=== PATIENT | male | born 1930 | race African-American/Black ===

== ENCOUNTER 2019-02-14 13:41 | Emergency (ER) | payer OTHER ==
[2019-02-14] MEDS ORDERED: ETOMIDATE 20 MG/10 ML VIAL IV ONE (13:42)
[2019-02-14] MEDS ORDERED: SUCCINYLCHOLINE 20 MG/ML (10 ML) IV ONE (13:42)
[2019-02-14] MEDS ORDERED: Nicardipine/NS 25 MG/250 ML KIT IV ONE (14:19)
[2019-02-14] MEDS ORDERED: VITAMIN K (ADULT) 10 MG/ML ONE (14:19)
--- NOTE | 2019-02-14 14:20 | RAD REPORT ---
EXAM DESCRIPTION: CT - Head C Spine Cap Wo Con - 02/14/2019 2:02 pm CLINICAL HISTORY: Trauma, head and neck injury. Chest, abdomen and pelvis pain. fall from attic. AMS COMPARISON: No comparisons TECHNIQUE: CT head without contrast. CT cervical spine without contrast with coronal and sagittal reformatted images. CT chest, abdomen and pelvis without contrast with coronal and sagittal reformatted images of the spi ne. All CT scans are performed using dose optimization technique as appropriate and may include automated exposure control or mA/KV adjustment according to patient size. FINDINGS: CT HEAD WITHOUT CONTRAST: A relatively large amount of acute subarachnoid hemorrhage is present bilaterally. Moderate brain at rophy is seen with no evidence of midline shift. The paranasal sinuses and mastoids are clear. No skull fracture evident. A large right posterior scal p hematoma. CT CERVICAL SPINE WITHOUT CONTRAST: Anterior cervical spine hardware is present. Cervical spine CT examination is moderately degraded by motion artifact. Within this limitation acute fracture is not seen. The prevertebral soft tissues ar e normal in thickness. CT CHEST, ABDOMEN, PELVIS WITHOUT CONTRAST: NOTE: Lack of contrast is a significant limitation in the assessment of trauma related findings. Spec ifically, solid organ, vascular and bowel evaluation is significantly limited. The lungs are clear.No pneumothorax or pericardial/pleural fluid. Large hiatal hernia is seen. Calcif ications along the left ventricular apex is evident. No evidence of intra-abdominal visceral injury, free fluid or free air is seen within the above detai led limitations. Bilateral hip arthroplasties noted. Moderate degenerative change involving the lumbar spine with mild degenerative anterolisthesis of L4 on 5. IMPRESSION: Moderate volume of acute subarachnoid hemorrhage is present without midline shift. No additional trauma related abnormality is discerned. Cervical spine assessment is limited/moderatel y degraded by motion. Findings were discussed with Dr. Gutiérrez in the emergency room 2:15 p.m. 02/14/2019 by telephone.
[2019-02-14 14:29] LABS: Absolute Lymphocytes (CBC) 1.4 K/uL (0.7-4.9); Basophils % 0.6 % (0-1.3); Hematocrit 41.8 % (39.6-49.0); Lymphocytes % 14.8 % (15.3-44.8); MPV 8.8 fL (7.6-11.3); RBC Red Blood Cell Count 4.68 M/uL (4.33-5.43)
[2019-02-14] MEDS ORDERED: levETIRAcetam 1,000 MG in NA CHLORIDE 0.9% 100 ML IV ONE (14:45)
[2019-02-14 14:47] LABS: Potassium 4.4 mmol/L (3.5-5.1)
[2019-02-14 14:49] LABS: Protime INR 2.41
--- NOTE | 2019-02-14 14:58 | ER ---
Nurse's Notes [facility] Name: Beto Schreiber Sr Age: 88 yrs Sex: Male : 1930 Arrival Date: 02/14/2019 Time: 13:49 Bed 4 Private MD: Diagnosis: Traumatic Subarachnoid Hemorrhage Presentation: 02/14 13:49 Mechanism of Injury: Fall ceiling of first floor. Trauma event details: Injury occurred ss in the [facility], Injury occurred: at home. Injury occurred: February 14, 2019. 14:00 Presenting complaint: EMS states: fell out of an attic at unknown time. Reportedly it ss may have been 2-3 hours ago. Patient's baseline mental status is A\\T\\O x3, but is found to be altered with slurred speech. 3 in laceration noted to back of head, dressing placed by EMS. Transition of care: patient was not received from another setting of care. Onset of symptoms was February 14, 2019. Risk Assessment: Do you want to hurt yourself or someone else? Patient reports no desire to harm self or others. Initial Sepsis Screen: Does the patient meet any 2 criteria? No. Patient's initial sepsis screen is negative. Does the patient have a suspected source of infection? No. Patient's initial sepsis screen is negative. Care prior to arrival: IV initiated. 20 GA, in the left antecubital area, Glucose check: 130. 14:00 Acuity: ASMITA 1 ss 14:00 Method Of Arrival: EMS: [facility] Trauma Activation: Alert Physician: ED Physician; Name: Dr. Gutiérrez; Notified At: 13:28; Arrived At: 13:28 Physician: General Surgeon; Name: ; Notified At: 13:28; Arrived At: Specialty not needed Physician: Radiology; Name: Megan Bourne; Notified At: 13:28; Arrived At: Physician: Respiratory; Name: ; Notified At: 13:28; Arrived At: Specialty not needed Physician: Lab; Name: ; Notified At: 13:28; Arrived At: Specialty not needed Historical: - Allergies: 14:11 Meperidine; ss - Home Meds: 14:11 Unable to obtain [Active]; ss - PMHx: 14:11 Unable to obtain; ss - PSHx: 14:11 Unable to obtain; ss - Immunization history:: Adult Immunizations unknown. - Social history:: Smoking status: unknown. - Immunization history: Last tetanus immunization: unknown. - Ebola Screening: : Unable to complete screening because. Screenin:00 Abuse screen: Denies threats or abuse. Denies injuries from another. Tuberculosis bp screening: No symptoms or risk factors identified. 15:15 Nutritional screening: No deficits noted. Fall Risk Fall in past 12 months (25 points). ss Secondary diagnosis (15 points) AMS. IV access (20 points). Ambulatory Aid- None/Bed Rest/Nurse Assist (0 pts). Gait- Normal/Bed Rest/Wheelchair (0 pts) Mental Status- Overestimates/Forgets Limitations (15 pts.). Primary Survey: 14:00 NO uncontrolled hemorrhage observed. A: The patient needs verbal stimulation to bp respond. Airway: patent. Breathing/Chest: Respiratory pattern: regular, Respiratory effort: spontaneous, unlabored. Circulation: Cardiac rhythm: sinus rhythm. Disability Verbal Stimuli. Exposure/Environment: All clothing and personal items were removed. Forensic evidence collection is not deemed to be indicated at this time. Items placed in patient belonging bag. There is no evidence of uncontrolled external bleeding. Obvious injury(ies) are noted at this time: R PARIETAL LACERATION. 14:55 Reassessment Airway Airway Patent Oxygen Nasal cannula Oral cavity Clear Trachea ss Midline Breathing/Chest Respiratory pattern Regular Respiratory effort Spontaneous Unlabored Breath sounds Clear Circulation Heart rhythm Sinus rhythm Pulses Palpable Color [place] Disability Alert. Secondary Survey: 14:53 HEENT: Head Other R PARIETAL LACERATION. bp Assessment: 13:45 Reassessment: Patient did not arrive on C collar or backboard. C collar placed on ss arrival. Clothing removed, gown and warm blanket placed on patient. Oozing laceration noted to back of head approximately 2 inches in size. Bruising noted to R upper arm/ shoulder (dark purple). 14:00 General: Appears distressed, uncomfortable, obese, Behavior is anxious. Pain: Complains bp of pain in right side of the back of head. Neuro: Level of Consciousness is confused, Oriented to none. EENT: No deficits noted. Cardiovascular: No deficits noted. Respiratory: No deficits noted. GI: No signs and/or symptoms were reported involving the gastrointestinal system. : No signs and/or symptoms were reported regarding the genitourinary system. Derm: No deficits noted. Musculoskeletal: No deficits noted. Injury Description: Laceration sustained to right side of the back of head is full thickness, was sustained 1-2 hours ago. a small amount of bleeding noted at this time. 14:30 Reassessment: SAH NOTED ON CT, PER RADIOLOGIST. TRANSFER IN PROCESS. bp 14:50 Reassessment: C collar removed per KAVEH Hook after reviewing image results. 15:05 Reassessment: Called report to DAMARI Lantigua at [facility]. Awaiting lifeflight for transportation. Airway is patent. Family at bedside. Side rails up x 2. 15:15 Reassessment: Patient has periods of restlessness, and states, "I need to get up, I ss need to get up." Patient is verbally redirected, family at bedside calming patient. Awaiting lifeflight transportation. Lights dimmed for comfort. Airway patent, respirations even. 15:50 Reassessment: [facility] Life flight at bedside. Patient intubated orally at 1553. Called to update receiving nurse at [place]. 16:06 Reassessment: tube repositioned by RT and life flight to 22 cm at [facility]. Vital Signs: 13:50 BP 170 / 104; Pulse 67; Resp 20; Temp 98.6(TE); Pulse Ox 97% on R/A; 14:30 BP 155 / 97; Pulse 71; ss 14:45 BP 137 / 94; Pulse 76; ss 14:55 BP 133 / 82; Pulse 75; Resp 18; Pulse Ox 99% ; bp 15:31 BP 134 / 84; Pulse 82; Resp 18; Pulse Ox 98% on 2 lpm NC; ss 15:44 BP 138 / 92; Pulse 78; Pulse Ox 99% on 2 lpm NC; Keri Coma Score: 14:00 Eye Response: spontaneous(4). Verbal Response: confused(4). Motor Response: localizes bp pain(5). Total: 13. 14:10 Eye Response: to voice(3). Verbal Response: confused(4). Motor Response: obeys jr8 commands(6). Total: 13. Trauma Score (Adult): 14:00 Eye Response: spontaneous(1); Verbal Response: confused(1); Motor Response: localizes bp pain(1); Systolic BP: > 89 mm Hg(4); Respiratory Rate: 10 to 29 per min(4); Keri Score: 13; Trauma Score: 11 ED Course: 13:49 Patient arrived in ED. jr8 13:49 [facility] jr[facility] 13:49 Gaston Gutiérrez MD is Attending Physician. jr8 13:49 shelter monitor on. Pulse ox on. NIBP on. ss 13:50 Arm band placed on right wrist. ss 14:00 Patient has correct armband on for positive identification. Bed in low position. Call bp light in reach. Side rails up X2. Adult w/ patient. 14:00 Oxygen administration via nasal cannula \\T\\ 2L/min Response to oxygen therapy: symptoms bp improved. 14:04 CT Traumagram (Head C Spine CAP wo con) In Process Unspecified. EDMS 14:09 Triage completed. ss 14:20 EKG done, by sterile preparation technician. reviewed by Gaston Gutiérrez MD. at1 14:30 Maintain EMS IV. Dressing intact. Good blood return noted. Site clean \\T\\ dry. Gauge \\T\\ ss site: 20 gauge in L AC. 14:45 Inserted saline lock: 22 gauge in right forearm, using aseptic technique. Blood ss collected. 14:49 Santiago Dalton, RN is Primary Nurse. bp 15:19 Patient transferred, IV remains in place. ss 15:19 Thermoregulation: warm blanket given to patient. ss 15:53 Assisted provider with intubation using 7.0 mm ETT via oral route. ET tube secured at ss teeth. gums. Intubated by Teddy LINN Placement verified by CO2 detector w/ + color change, auscultating bilateral breath sounds, Patient tolerated sedated. 15:57 NGT: inserted 16 Fr. verified placement of air over stomach, verified return of gastric ss contents, Patient tolerated sedated, lifeflight at bedside. 16:06 CXR XRAY In Process Unspecified. EDMS Administered Medications: 14:27 Drug: Vitamin K1 10 mg Route: Sub-Q; Site: left upper arm; ss 14:52 Follow up: Response: No adverse reaction ss 14:27 Drug: niCARdipine (25mg/250ml) 5 mg/hr {Note: infusion began at 2.5 mg/hr..} Route: IV; ss Rate: calculated rate; Site: left antecubital; 14:59 Follow up: IV Status: discontinued infusion per KAVEH Hook as BP is 133/82 ss 14:51 Drug: Keppra 1000 mg Route: IV; Rate: calculated rate; Site: right antecubital; ph 15:10 Follow up: IV Status: Completed infusion ss 15:48 Drug: Etomidate 20 mg {Note: Administered by Cookie Brand RN.} Route: IVP; Site: ss right forearm; 16:02 Follow up: Response: Patient is sedated ss 15:49 Drug: Succinylcholine 70 mg {Note: Admin by Cookie Brand RN.} Route: IVP; Site: right ss forearm; 16:02 Follow up: Response: Patient is sedated ss 16:02 Drug: fentaNYL (PF) 50 mcg Route: IVP; Site: left antecubital; ss Intake: 14:00 PO: 0ml; Total: 0ml. bp Output: 14:00 Urine: 0ml; Total: 0ml. bp Outcome: 14:57 ER care complete, transfer ordered by MD. hong 15:15 Condition: stable ss 15:15 Instructed on the need for transfer. 16:11 Transferred by helicopter to [facility], Transfer form completed. X-rays sent ss w/ patient. 16:11 Patient's length of stay in the Emergency Department was greater than 2 hours. decision ss to intubate patient just prior to transport. Also, delay in transportation due weather. Patient's length of stay extended due to 16:12 Patient's length of stay was not longer than 2 hours. ph 16:12 Patient left the ED. ss Signatures: Dispatcher [employer] EDMS Miriam Roach RN RN ss Roszak, Josh, PA PA jr8 Cheyenne Garcia, turning sander operator EKG Tat1 Cookie Brand RN RN Santiago Dalton RN RN bp Corrections: (The following items were deleted from the chart) 14:28 14:27 niCARdipine (25mg/250ml) 5 mg/hr IV at calculated rate in left antecubital cox monett 15:11 15:05 Reassessment: Called report to DAMARI Lantigua at [facility]. ss ss 16:00 15:19 No provider procedures requiring assistance completed. ss ss 16:11 16:10 Patient's length of stay in the Emergency Department was greater than 2 hours. ss delay in transportation due to weatherPatient's length of stay extended due to ss
--- NOTE | 2019-02-14 14:58 | EDPHYS ---
Physician Documentation [facility] Name: Beto Schreiber Sr Age: 88 yrs Sex: Male : 1930 Arrival Date: 02/14/2019 Time: 13:49 Bed 4 Private MD: ED Physician Gaston Gutiérrez HPI: 02/14 14:10 This 88 yrs old Black Male presents to ER via EMS with complaints of Fall. jr8 14:10 Trauma demographics: County: The injury occurred in [place] Location of Injury: The jr8 injury occurred at home, Date: February 14, 2019. Mechanism of injury: Fall: the patient fell attic, approximately approximately 10 feet. Associated injuries: The patient sustained injury to the head, laceration. Onset: The symptoms/episode began/occurred acutely, today. The patient has not experienced similar symptoms in the past. It is unknown whether or not the patient has recently seen a physician. Family stated that they found patient on ground at home. Stated that he was in the attic fixing something. Family had stepped out to go down the street. When they came back found him on the floor. EMS stated that family had told them that patient is normally A\T\O x 4 and now cannot answer any questions appropriately . Historical: - Allergies: 14:11 Meperidine; ss - Home Meds: 14:11 Unable to obtain [Active]; ss - PMHx: 14:11 Unable to obtain; ss - PSHx: 14:11 Unable to obtain; ss - Immunization history:: Adult Immunizations unknown. - Social history:: Smoking status: unknown. - Immunization history: Last tetanus immunization: unknown. - Ebola Screening: : Unable to complete screening because. ROS: 14:10 Unable to obtain ROS due to altered mental status. jr8 Exam: 14:10 Eyes: Pupils equal round and reactive to light, extra-ocular motions intact. Lids and jr8 lashes normal. Conjunctiva and sclera are non-icteric and not injected. Cornea within normal limits. Periorbital areas with no swelling, redness, or edema. ENT: Nares patent. No nasal discharge, no septal abnormalities noted. Tympanic membranes are normal and external auditory canals are clear. Oropharynx with no redness, swelling, or masses, exudates, or evidence of obstruction, uvula midline. Mucous membranes moist. Neck: Trachea midline, no thyromegaly or masses palpated, and no cervical lymphadenopathy. Supple, full range of motion without nuchal rigidity. vertebral point tenderness noted at the C4-C5 region. No Meningismus. Cardiovascular: Regular rate and rhythm with a normal S1 and S2. No gallops, murmurs, or rubs. Normal PMI, no JVD. No pulse deficits. Respiratory: Lungs have equal breath sounds bilaterally, clear to auscultation and percussion. No rales, rhonchi or wheezes noted. No increased work of breathing, no retractions or nasal flaring. Abdomen/GI: Soft, non-tender, with normal bowel sounds. No distension or tympany. No guarding or rebound. No evidence of tenderness throughout. Back: No spinal tenderness. No costovertebral tenderness. Full range of motion. Skin: Warm, dry with normal turgor. Normal color with no rashes, no lesions, and no evidence of cellulitis. MS/ Extremity: Pulses equal, no cyanosis. Neurovascular intact. Full, normal range of motion. 14:10 Head/face: Noted is a laceration(s), that is deep, 5 cm(s), of the right side of the back of head. 14:10 Neuro: Orientation: Not oriented to person, place, time, situation, Mentation: able to follow commands, slow to respond, confused, Memory: unable to test, Cranial nerves: extraocular movements are intact, Facial palsy and sensory deficits are absent. Speech is slowed, slurred, Tongue strength is normal, Motor: moves all fours, Sensation: no obvious gross deficits, seizure activity, is not displayed by the patient, Abnormal movements: there are no abnormal movements. Vital Signs: 13:50 BP 170 / 104; Pulse 67; Resp 20; Temp 98.6(TE); Pulse Ox 97% on R/A; ss 14:30 BP 155 / 97; Pulse 71; ss 14:45 BP 137 / 94; Pulse 76; ss 14:55 BP 133 / 82; Pulse 75; Resp 18; Pulse Ox 99% ; bp 15:31 BP 134 / 84; Pulse 82; Resp 18; Pulse Ox 98% on 2 lpm NC; ss 15:44 BP 138 / 92; Pulse 78; Pulse Ox 99% on 2 lpm NC; ss [place] Coma Score: 14:00 Eye Response: spontaneous(4). Verbal Response: confused(4). Motor Response: localizes bp pain(5). Total: 13. 14:10 Eye Response: to voice(3). Verbal Response: confused(4). Motor Response: obeys jr8 commands(6). Total: 13. Trauma Score (Adult): 14:00 Eye Response: spontaneous(1); Verbal Response: confused(1); Motor Response: localizes bp pain(1); Systolic BP: > 89 mm Hg(4); Respiratory Rate: 10 to 29 per min(4); Keri Score: 13; Trauma Score: 11 Procedures: 16:08 Intubation: Ventilated with 100% NRB prior to procedure. O2 saturation prior to jr8 procedure was 100 %. Intubated orally using # 3 Chi blade with 7.0 mm ETT. was successful on first attempt. Ventilated with Ambu bag. ventilator. Tube secured with ETT palmer at center of mouth measured 23 cm at teeth. Placement verified by CXR, CO2 detector with (+) color change, auscultating bilateral breath sounds, O2 saturation after procedure was 100 %. Patient tolerated well. Laceration: 14:53 Wound Repair of 5cm ( 2.0in ) subcutaneous laceration to right side of the back of jr8 head. Irregularly shaped.. Distal neuro/vascular/tendon intact. Wound prep: Extensive cleansing with hibiclenz, Wound irrigation with saline, Wound explored extensively. Skin closed with 4 marilia Marilia using staple gun. Patient tolerated well. MDM: 13:49 Patient medically screened. [facility] 14:53 Data reviewed: vital signs, nurses notes, lab test result(s), EKG, radiologic studies, jr8 CT scan. Data interpreted: Pulse oximetry: on room air is 98 %. Interpretation: normal. Counseling: I had a detailed discussion with the patient and/or guardian regarding: the historical points, exam findings, and any diagnostic results supporting the discharge/admit diagnosis, lab results, radiology results, the need to transfer to another facility, for higher level of care. ED course: Neurosurgery accepted at [place] for Head trauma with sub arachnoid . 16:09 ED course: Patient had worsening of mental status and became more combative. Elective jr8 intubation to secure airway and decrease patient from causing increase ICP was made. Patient successfully intubated and doing well at this time . 16:30 ED course: FFP was not ordered because the time it would take to thaw vs time of Life jr8 Flight to get here . 02/14 13:50 Order name: Basic Metabolic Panel; Complete Time: 14:52 jr8 02/14 13:50 Order name: CBC with Diff; Complete Time: 14:40 jr8 02/14 13:50 Order name: Creatinine for Radiology; Complete Time: 14:52 jr8 02/14 13:50 Order name: Type And Screen; Complete Time: 15:15 jr8 02/14 14:05 Order name: Protime (+inr); Complete Time: 14:58 jr8 02/14 14:05 Order name: Ptt, Activated; Complete Time: 14:58 jr8 02/14 13:50 Order name: CT Traumagram (Head C Spine CAP wo con); Complete Time: 14:24 jr8 02/14 15:48 Order name: CXR XRAY ss 02/14 13:50 Order name: Labs collected and sent; Complete Time: 14:54 jr8 Administered Medications: 14:27 Drug: Vitamin K1 10 mg Route: Sub-Q; Site: left upper arm; ss 14:52 Follow up: Response: No adverse reaction ss 14:27 Drug: niCARdipine (25mg/250ml) 5 mg/hr {Note: infusion began at 2.5 mg/hr..} Route: IV; ss Rate: calculated rate; Site: left antecubital; 14:59 Follow up: IV Status: discontinued infusion per KAVEH Hook as BP is 133/82 ss 14:51 Drug: Keppra 1000 mg Route: IV; Rate: calculated rate; Site: right antecubital; ph 15:10 Follow up: IV Status: Completed infusion ss 15:48 Drug: Etomidate 20 mg {Note: Administered by Cookie Brand RN.} Route: IVP; Site: ss right forearm; 16:02 Follow up: Response: Patient is sedated ss 15:49 Drug: Succinylcholine 70 mg {Note: Admin by Cookie Brand RN.} Route: IVP; Site: right ss forearm; 16:02 Follow up: Response: Patient is sedated ss 16:02 Drug: fentaNYL (PF) 50 mcg Route: IVP; Site: left antecubital; ss Disposition: 02/15 07:27 Co-signature as Attending Physician, Gaston Gutiérrez MD I agree with the assessment and ian plan of care. Disposition: 02/14/19 14:57 Transfer ordered to [facility]. Diagnosis is Traumatic Subarachnoid Hemorrhage . - Reason for transfer: Higher level of care. - Accepting physician is Dr. Nicholson . - Condition is Fair. - Problem is new. - Symptoms have improved. Signatures: Dispatcher [employer] EDMA Gaston Gutiérrez MD MD cha Smirch, Shelby, RN RN Teddy Velazquez PA PA jr8 Cookie Brand, RN RN ph Corrections: (The following items were deleted from the chart) 02/14 16:12 14:57 02/14/2019 14:57 Transfer ordered to [facility]. ss Diagnosis is Traumatic Subarachnoid Hemorrhage . Reason for transfer: Higher level of care. Accepting physician is Dr. Nicholson . Condition is Fair. Problem is new. Symptoms have improved. jr8
[2019-02-14] MEDS ORDERED: MIDAZOLAM HCL 2 MG/2 ML INJ ONE (15:36)
[2019-02-14] MEDS ORDERED: RSI MEDICATION KIT IV ONE (15:37)
[2019-02-14] MEDS ORDERED: FENTANYL CITR 100 MCG/2 ML ONE (15:37)
[2019-02-14 16:17] VITALS: TEMP 98.6
[2019-02-14 16:23] VITALS: BP 138/92; O2SAT 99
--- NOTE | 2019-02-14 16:27 | RAD REPORT ---
EXAM DESCRIPTION: RAD - Chest Single View - 02/14/2019 4:06 pm CLINICAL HISTORY: Intubation COMPARISON: June 2017 TECHNIQUE: AP portable chest image was obtained 1559 hours . FINDINGS: Lung volumes are low. Left base is limited. Infiltrate, atelectasis or even pulmonary cont usion not excluded. No pneumothorax is seen. No gross rib cage deformity identified. Endotracheal tube is in place. Tip is at the avelina. NG tube is not seen. There is tubing curled over the cervical midline neck. This may be part of the endotracheal tube external to the body. NG tube c urled in the cervical esophagus not excluded. Heart and vasculature are normal. No acute bony abnormality seen. No acute aortic findings suspected . IMPRESSION: Endotracheal tube is in place with the tip at the avelina.
--- NOTE | 2019-02-15 09:59 | EKG ---
Test Date: 2019-02-14 Test Time: 14:11:27 Fence Repairman: LALO MEASUREMENT RESULTS: Intervals: Rate: 71 MO: 210 QRSD: 92 QT: 364 QTc: 395 [place]: P: 36 MO: 210 QRS: -66 T: 54 INTERPRETIVE STATEMENTS: Sinus rhythm with 1st degree AV block Possible Left atrial enlargement Low voltage QRS Left anterior fascicular block Cannot rule out Inferior infarct (masked by fascicular block?), age undetermined Cannot rule out Anteroseptal infarct, age undetermined T wave abnormality, consider lateral ischemia Abnormal ECG Compared to ECG 08/13/2007 05:07:50 Low QRS voltage now present Left anterior fascicular block now present T-wave abnormality now present Electronically Signed On 02-15-19 09:57:43 CDT by Candido Dupont
== END 2019-02-14 16:12 | disposition short-term general hospital (02) ==
LOC: ER 13:41
PROC: 0JQ00ZZ Repair Scalp Subcutaneous Tissue and Fascia, Open Approach (ICD-10-PCS; principal; 2019-02-14)
PROC: 0BH17EZ Insertion of Endotracheal Airway into Trachea, Via Natural or Artificial Opening (ICD-10-PCS; 2019-02-14)
PROC: 5A1935Z Respiratory Ventilation, Less than 24 Consecutive Hours (ICD-10-PCS; 2019-02-14)
DX: S06.6X0A Traumatic subarachnoid hemorrhage without loss of consciousness, initial encounter (principal); W17.89XA Other fall from one level to another, initial encounter; Y93.89 Activity, other specified; Y92.008 Other place in unspecified non-institutional (private) residence as the place of occurrence of the external cause
CPT/HCPCS: 93005; 85025; 80048; 36415; 86900; 86850; 85610; 86901; 85730; 70450; 71250; 72125; 71045; 12002; 31500; 94002; J3430; J3010; J1953; 96372; 99291; J0330; J2250

== ENCOUNTER 2019-05-09 02:31 | Emergency (ER) | payer OTHER ==
--- OUTSIDE RECORDS SUMMARY | 2019-05-09 02:35 | XMS REPORT ---
:1930 [facility] Address [address] [place] [address] [address]. Mck[address] [place] [address] Care Team Providers Name Role Phone Unavailable Unavailable Unavailable Problems This patient has no known problems. Allergies, Adverse Reactions, Alerts This patient has no known allergies or adverse reactions. Medications This patient has no known medications. Encounters Start End Encounter Admission Attending Care Care Encounter Date/Time Date/Time Type Type Clinicians Facility Department ID 2019-04-08 2019-04-08 Inpatient E [facility] [id number] 19:32:00 14:39:00 2019-03-28 2019-03-28 Inpatient E [facility] [id number] 22:05:00 20:20:00 2019-03-28 2019-03-28 Emergency E [facility] [id number] 15:21:00 15:21:00 2019-03-09 2019-03-06 Inpatient E [facility] [id number] 11:09:00 20:28:00 2019-02-14 2019-02-14 Outpatient [facility] [id number] 18:48:00 18:48:00 2019-02-14 2019-02-14 Inpatient E [facility] [id number] 18:06:00 17:02:00
--- OUTSIDE RECORDS SUMMARY | 2019-05-09 02:36 | XMS REPORT | Summary of Care ---
:1930 Author Name Marielena Velez M.A. Address Unavailable Unavailable , Care Team Providers Name Role Phone ALINA FOFANA Unavailable Unavailable SERVANDO DALTON [place], JOAN Landry Unavailable Unavailable Unavailable Unavailable Unavailable Functional Status Name Dates Details Functional status health issues are not documented Status: Name Dates Details Cognitive status health issues are not documented Status: Problems Name Dates Details Low back pain (724.2, M54.5) Status: Active Thoracic back pain (724.1, M54.6) Status: Active Cervical pain (723.1, M54.2) Status: Active Medications Name Dates Details Medications not documented Allergies and Adverse Reactions Name Dates Details Allergy history not documented Status: Procedures Procedure Dates Details [U] XRAY THORACOLUMBAR SPINE AP AND LAT. 80152 Date: 25-Apr-2019 [U] XRAY SPINE CERVICAL 2 OR 3 VWS [id number] Date: 25-Apr-2019 Immunization Name Dates Details Immunizations not documented Social History Name Dates Details Unknown if ever smoked Vital Signs Date Test Result Details No Known Vitals to report Results Date Description Value Details Results not documented Plan of Care Name Dates Details Planned Observations Planned Goals not documented Interventions Provided Labs/Procedures/Imaging[U] XRAY SPINE CERVICAL 2 OR 3 VWS [id number]; To Be Done: 25 Apr 2019[U] XRAY THORACOLUMBAR SPINE AP AND LAT. [id number]; To Be Done: 25 Apr 2019 Instructions Name Dates Details Instructions not documented Encounters Appointment; ALINA VOSS P.A. On: 25-Apr-2019 7:30 Encounter Diagnosis: Problem not documented
[2019-05-09] MEDS ORDERED: ALBUTEROL 2.5 MG/3 ML NEB SOL ONE ×2 (02:48→03:58)
[2019-05-09] MEDS ORDERED: IPRATROPIUM BROM 0.5MG/2.5ML ONE (02:48)
[2019-05-09 03:29] LABS: Absolute Lymphocytes (CBC) 1.5 K/uL (0.7-4.9); Basophils % 0.4 % (0-1.3); Hematocrit 35.3 % (39.6-49.0); Lymphocytes % 31.4 % (15.3-44.8); MPV 9.2 fL (7.6-11.3); RBC Red Blood Cell Count 3.89 M/uL (4.33-5.43)
[2019-05-09 03:33] LABS: Protime INR 1.06
[2019-05-09 03:53] LABS: ALT/SGPT 18 U/L (12-78); AST/SGOT 18 U/L (15-37); Albumin 3.1 g/dL (3.4-5.0); Alkaline Phosphatase 102 U/L (45-117); BUN Blood Urea Nitrogen 15 mg/dL (7-18); Bicarbonate 26 mmol/L (21-32); Bilirubin Direct 0.2 mg/dL (0-0.2); Bilirubin Total 0.3 mg/dL (0.2-1.0); CKMB Creatine Kinase MB 1.5 ng/mL (0.3-3.6); Creatine Phosphokinase 57 U/L (39-308); Glucose Level 107 mg/dL (74-106); Lipase 134 U/L (73-393); NT PRO-BNP 189 pg/mL (<450); Potassium 4.5 mmol/L (3.5-5.1); Protein, Total 6.7 g/dL (6.4-8.2); Sodium Level 129 mmol/L (136-145); Troponin (Emerg Dept Use Only) < 0.02 ng/mL (0.0-0.045)
[2019-05-09] MEDS ORDERED: METHYLPREDNISOLONE 125 MG INJ ONE (04:18)
--- NOTE | 2019-05-09 04:51 | ER ---
Nurse's Notes [facility] Name: Beto Schreiber Sr Age: 88 yrs Sex: Male : 1930 Arrival Date: 05/09/2019 Time: 02:33 Bed 16 Private MD: Diagnosis: Acute bronchospasm Presentation: 05/09 02:47 Presenting complaint: Significant other states: pt has been wheezing for about a week aa1 and was seen at [facility] 2 days ago and diagnosed with bronchitis and started on Levaquin and a z-pack but reports pt is still wheezing and has been more restless than usual. Transition of care: patient was not received from another setting of care. Risk Assessment: Do you want to hurt yourself or someone else? Patient reports no desire to harm self or others. Initial Sepsis Screen: Does the patient meet any 2 criteria? No. Patient's initial sepsis screen is negative. Does the patient have a suspected source of infection? No. Patient's initial sepsis screen is negative. Care prior to arrival: None. 02:47 Method Of Arrival: Wheelchair aa1 02:47 Acuity: ASMITA 3 aa1 Triage Assessment: 02:51 General: Appears in no apparent distress. comfortable. aa1 Historical: - Allergies: 02:51 Meperidine; aa1 - Home Meds: 02:51 Coreg 3.125 mg Oral tab [Active]; Protonix 40 mg Oral TbEC 1 tab once daily [Active]; aa1 levothyroxine oral once daily [Active]; - PMHx: 02:51 Hypertension; Myocardial infarction; Hypothyroidism; aa1 - PSHx: 02:51 craniotomy; PEG tube; hip sx; neck sx; aa1 - Immunization history:: Pneumococcal vaccine is not up to date, Flu vaccine is not up to date. - Social history:: Smoking status: Patient/guardian denies using tobacco, but has a distant history of tobacco abuse. - Ebola Screening: : Patient denies exposure to infectious person Patient denies travel to an Ebola-affected area in the 21 days before illness onset. Screenin:05 Abuse screen: Denies threats or abuse. Nutritional screening: No deficits noted. jb4 Tuberculosis screening: No symptoms or risk factors identified. Fall Risk Secondary diagnosis (15 points) dementia, IV access (20 points). Mental Status- Overestimates/Forgets Limitations (15 pts.). Assessment: 03:00 General: Appears in no apparent distress. uncomfortable, Behavior is calm, cooperative, jb4 appropriate for age, Pt's daughter reports that pt normally is A\T\O x0. Pain: Denies pain. Neuro: Level of Consciousness is awake, alert, obeys commands, Oriented to none. Cardiovascular: Patient's skin is warm and dry. Respiratory: Airway is patent Respiratory effort is even, unlabored, Respiratory pattern is regular, symmetrical, Breath sounds are diminished in left upper lobe, left lower lobe, left posterior upper lobe and left posterior lower lobe Breath sounds with wheezes bilaterally. Audible wheezes heard from the bedside. the patient has mild shortness of breath. GI: No signs and/or symptoms were reported involving the gastrointestinal system. : No signs and/or symptoms were reported regarding the genitourinary system. EENT: No signs and/or symptoms were reported regarding the EENT system. Derm: Skin is intact, Skin is pink, warm \T\ dry. Musculoskeletal: Circulation, motion, and sensation intact. Range of motion: intact in all extremities. 03:45 Reassessment: Patient appears in no apparent distress at this time. Patient and/or jb4 family updated on plan of care and expected duration. Pain level reassessed. Respiratory: Airway is patent Respiratory effort is even, unlabored, Respiratory pattern is regular, symmetrical, Wheezes continue to be noted bilaterally, but have finished from prior assessment. 04:28 Reassessment: Patient appears in no apparent distress at this time. Patient and/or jb4 family updated on plan of care and expected duration. Pain level reassessed. Respiratory: Airway is patent Respiratory effort is even, unlabored, Respiratory pattern is regular, symmetrical, Breath sounds are clear in right upper lobe, right middle lobe, left lower lobe, right lower lobe, right posterior upper lobe, left posterior lower lobe, right posterior middle lobe and right posterior lower lobe Breath sounds with wheezes in left upper lobe and left posterior upper lobe. Vital Signs: 02:51 BP 162 / 86; Pulse 80; Resp 20; Temp 97.6; Pulse Ox 97% on R/A; Weight 75.3 kg; Height aa1 5 ft. 4 in. (162.56 cm); Pain 0/10; 03:30 BP 155 / 86; Pulse 88; Resp 17; Pulse Ox 97% on R/A; jb4 04:30 BP 143 / 87; Pulse 91; Resp 20; Pulse Ox 98% on R/A; jb4 02:51 Body Mass Index 28.49 (75.30 kg, 162.56 cm) aa1 ED Course: 02:33 Patient arrived in ED. ds1 02:39 Zachary Evans, RN is Primary Nurse. jb4 02:39 Camron Aleman MD is Attending Physician. tw4 02:48 Triage completed. aa1 02:51 Arm band placed on right wrist. aa1 02:59 XRAY CXR (1 view) In Process Unspecified. EDMS 03:05 Patient has correct armband on for positive identification. Placed in gown. Bed in low jb4 position. Call light in reach. Side rails up X 1. security monitor on. Pulse ox on. NIBP on. 03:05 Initial lab(s) drawn, by me, sent to lab. First set of blood cultures drawn by me. jb4 Inserted saline lock: 18 gauge in right antecubital area, using aseptic technique. Blood collected. 03:20 Second set of blood cultures drawn by me, EKG done, by ED staff, reviewed by Camron Aleman MD. 05:01 No provider procedures requiring assistance completed. IV discontinued, intact, jb4 bleeding controlled, No redness/swelling at site. Pressure dressing applied. Administered Medications: 02:50 Drug: DuoNeb (3:1) (2.5 mg - 0.5 mg) 3 ml Route: Nebulizer; jb4 03:25 Follow up: Response: No adverse reaction; Wheezing diminished jb4 02:53 Not Given (Other Intervention Used): Albuterol 1.25 mg Inhalation once jb4 03:55 Drug: Albuterol 2.5 mg Route: Inhalation; jb4 04:30 Follow up: Response: No adverse reaction; Wheezing diminished jb4 04:22 Drug: SOLU-Medrol 125 mg Route: IVP; Site: left antecubital; jb4 05:02 Follow up: Response: No adverse reaction jb4 Outcome: 04:49 Discharge ordered by . tw4 05:01 Discharged to home via wheelchair, with family. jb4 05:01 Condition: stable 05:01 Discharge instructions given to family, Instructed on discharge instructions, follow up and referral plans. medication usage, Demonstrated understanding of instructions, follow-up care, medications, Prescriptions given X 2. 05:03 Patient left the ED. jb4 Signatures: Dispatcher [employer] EDMS Elizabeth Reddy, RN RN aa1 Rosibel Bauman ds1 Zachary Evans RN RN jb4 Camron Aleman MD MD tw4 Corrections: (The following items were deleted from the chart) 04:06 03:00 Respiratory: Airway is patent Respiratory effort is even, unlabored, Respiratory jb4 pattern is regular, symmetrical, Breath sounds are clear in right upper lobe, right middle lobe, right lower lobe, right posterior upper lobe, right posterior middle lobe and right posterior lower lobe Breath sounds are diminished in left upper lobe, left lower lobe, left posterior upper lobe and left posterior lower lobe Breath sounds with wheezes in left upper lobe, left lower lobe, left posterior upper lobe and left posterior lower lobe Audible wheezes heard from the bedside. the patient has mild shortness of breath jb4 04:29 03:00 General: Appears in no apparent distress. uncomfortable, Behavior is calm, jb4 cooperative, appropriate for age, jb4 04:31 04:28 Reassessment: Patient appears in no apparent distress at this time. No changes jb4 from previously documented assessment. Patient and/or family updated on plan of care and expected duration. Pain level reassessed. jb4
--- NOTE | 2019-05-09 04:51 | EDPHYS ---
Physician Documentation [facility] Name: Beto Schreiber Sr Age: 88 yrs Sex: Male : 1930 Arrival Date: 05/09/2019 Time: 02:33 Bed 16 Private MD: ED Physician Camron Aleman HPI: 05/09 03:47 This 88 yrs old Black Male presents to ER via Wheelchair with complaints of Wheezing. tw4 03:47 The patient presents to the emergency department with wheezing, Current therapy: tw4 albuterol inhaler, that began without any particular precipitating event. Onset: The symptoms/episode began/occurred today. Modifying factors: The symptoms are alleviated by nothing, the symptoms are aggravated by nothing. The patient has not experienced similar symptoms in the past. Historical: - Allergies: 02:51 Meperidine; aa1 - Home Meds: 02:51 Coreg 3.125 mg Oral tab [Active]; Protonix 40 mg Oral TbEC 1 tab once daily [Active]; aa1 levothyroxine oral once daily [Active]; - PMHx: 02:51 Hypertension; Myocardial infarction; Hypothyroidism; aa1 - PSHx: 02:51 craniotomy; PEG tube; hip sx; neck sx; aa1 - Immunization history:: Pneumococcal vaccine is not up to date, Flu vaccine is not up to date. - Social history:: Smoking status: Patient/guardian denies using tobacco, but has a distant history of tobacco abuse. - Ebola Screening: : Patient denies exposure to infectious person Patient denies travel to an Ebola-affected area in the 21 days before illness onset. ROS: 03:47 Constitutional: Negative for fever, chills, and weight loss, Eyes: Negative for injury, tw4 pain, redness, and discharge, Cardiovascular: Negative for chest pain, palpitations, and edema, Abdomen/GI: Negative for abdominal pain, nausea, vomiting, diarrhea, and constipation, Back: Negative for injury and pain, MS/Extremity: Negative for injury and deformity, Skin: Negative for injury, rash, and discoloration. 03:47 Respiratory: Positive for cough, wheezing, Negative for dyspnea on exertion, hemoptysis, orthopnea, pleurisy, shortness of breath. Exam: 03:47 Constitutional: This is a well developed, well nourished patient who is awake, alert, tw4 and in no acute distress. Head/Face: Normocephalic, atraumatic. Chest/axilla: Normal chest wall appearance and motion. Nontender with no deformity. No lesions are appreciated. Cardiovascular: Regular rate and rhythm with a normal S1 and S2. No gallops, murmurs, or rubs. Normal PMI, no JVD. No pulse deficits. 03:47 Abdomen/GI: Soft, non-tender, with normal bowel sounds. No distension or tympany. No guarding or rebound. No evidence of tenderness throughout. Back: No spinal tenderness. No costovertebral tenderness. Full range of motion. Skin: Warm, dry with normal turgor. Normal color with no rashes, no lesions, and no evidence of cellulitis. MS/ Extremity: Pulses equal, no cyanosis. Neurovascular intact. Full, normal range of motion. 03:47 Respiratory: the patient does not display signs of respiratory distress, Respirations: normal, Breath sounds: + upper airway congestion. wheezing: that is mild. Vital Signs: 02:51 BP 162 / 86; Pulse 80; Resp 20; Temp 97.6; Pulse Ox 97% on R/A; Weight 75.3 kg; Height aa1 5 ft. 4 in. (162.56 cm); Pain 0/10; 03:30 BP 155 / 86; Pulse 88; Resp 17; Pulse Ox 97% on R/A; jb4 04:30 BP 143 / 87; Pulse 91; Resp 20; Pulse Ox 98% on R/A; jb4 02:51 Body Mass Index 28.49 (75.30 kg, 162.56 cm) aa1 MDM: 02:39 Patient medically screened. 05/09 02:40 Order name: Blood Culture Adult (2) 05/09 02:40 Order name: BMP; Complete Time: 04:06 05/09 04:06 Interpretation: Normal except: NA 129; GLUC 107; CL 95. 05/09 02:40 Order name: CBC with Diff; Complete Time: 04:06 05/09 04:06 Interpretation: Normal except: RBC 3.89; HGB 11.9; HCT 35.3; PLT 109; RDW 15.9. 05/09 02:40 Order name: Ckmb; Complete Time: 04:06 05/09 04:06 Interpretation: Within normal limits: CKMB 1.5. 05/09 02:40 Order name: CPK; Complete Time: 04:06 05/09 04:06 Interpretation: Within normal limits: CPK 57. 05/09 02:40 Order name: Hepatic Function; Complete Time: 04:06 05/09 04:06 Interpretation: Normal except: A/G 0.9; GLOB 3.6; ALB 3.1. 05/09 02:40 Order name: XRAY CXR (1 view) 05/09 02:40 Order name: Lipase; Complete Time: 04:06 05/09 04:06 Interpretation: Within normal limits: LIP 134. 05/09 02:40 Order name: NT PRO-BNP; Complete Time: 04:06 05/09 04:06 Interpretation: Within normal limits: NT PRO-BNP 189. 05/09 02:40 Order name: PT-INR; Complete Time: 04:06 05/09 04:07 Interpretation: Within normal limits: PT 12.5. 05/09 02:40 Order name: Ptt, Activated; Complete Time: 04:06 05/09 04:07 Interpretation: Within normal limits: PTT 28.5. 05/09 02:40 Order name: Troponin (emerg Dept Use Only); Complete Time: 04:06 05/09 04:07 Interpretation: Within normal limits: TROPED < 0.02. 05/09 02:40 Order name: EKG; Complete Time: 02:41 05/09 02:40 Order name: Cardiac monitoring; Complete Time: 02:53 05/09 02:40 Order name: EKG - Nurse/Tech; Complete Time: 03:31 05/09 02:40 Order name: IV Saline Lock; Complete Time: 03:31 05/09 02:40 Order name: Labs collected and sent; Complete Time: 03:32 05/09 02:40 Order name: O2 Per Protocol; Complete Time: 02:53 05/09 02:40 Order name: O2 Sat Monitoring; Complete Time: 02:53 EC:47 Rate is 88 beats/min. Rhythm is regular. Left axis deviation noted. KS interval is tw4 normal. QRS interval is normal. QT interval is normal. No Q waves. T waves are Inverted in leads V5, V6. Clinical impression: NSR w/ Non-specific ST/T Changes. Interpreted by me. Reviewed by me. Administered Medications: 02:50 Drug: DuoNeb (3:1) (2.5 mg - 0.5 mg) 3 ml Route: Nebulizer; jb4 03:25 Follow up: Response: No adverse reaction; Wheezing diminished jb4 02:53 Not Given (Other Intervention Used): Albuterol 1.25 mg Inhalation once jb4 03:55 Drug: Albuterol 2.5 mg Route: Inhalation; jb4 04:30 Follow up: Response: No adverse reaction; Wheezing diminished jb4 04:22 Drug: SOLU-Medrol 125 mg Route: IVP; Site: left antecubital; jb4 05:02 Follow up: Response: No adverse reaction jb4 Disposition: 05/09/19 04:49 Discharged to Home. Impression: Acute bronchospasm. - Condition is Stable. - Discharge Instructions: Bronchospasm, Adult. - Prescriptions for Albuterol Sulfate 2.5 mg /3 mL (0.083 %) Inhalation Solution for Nebulization - inhale 1 unit by NEBULIZATION route every 8 hours As needed; 1 box. Medrol ([place]) 4 mg Oral Tablets, Dose Pack - take 1 tablet by ORAL route as directed - follow package instructions; 1 packet. - Medication Reconciliation Form, Thank You Letter, Antibiotic Education, Prescription Opioid Use form. - Follow up: Private Physician; When: Upon discharge from the Emergency Department; Reason: Recheck today's complaints, Continuance of care. - Problem is new. - Symptoms have improved. Signatures: Dispatcher [employer] EDMS Elizabeth Reddy RN RN aa1 Zachary Evans RN RN jb4 Camron Aleman MD MD tw4 Corrections: (The following items were deleted from the chart) 05:03 04:49 05/09/2019 04:49 Discharged to Home. Impression: Acute bronchospasm. Condition is jb4 Stable. Forms are Medication Reconciliation Form, Thank You Letter, Antibiotic Education, Prescription Opioid Use. Follow up: Private Physician; When: Upon discharge from the Emergency Department; Reason: Recheck today's complaints, Continuance of care. Problem is new. Symptoms have improved. tw4
--- NOTE | 2019-05-09 08:15 | RAD REPORT ---
EXAM DESCRIPTION: Dana Single View05/09/2019 2:59 am CLINICAL HISTORY: Shortness of breath COMPARISON: January 2019 FINDINGS: Mild bilateral pulmonary opacities The heart is mildly enlarged IMPRESSION: These findings may indicate mild CHF
--- NOTE | 2019-05-09 14:00 | EKG ---
Test Date: 2019-05-09 Test Time: 03:29:50 [employer]: AYDIN MEASUREMENT RESULTS: Intervals: Rate: 88 GA: 196 QRSD: 70 QT: 338 QTc: 408 [place]: P: 35 GA: 196 QRS: -74 T: 0 INTERPRETIVE STATEMENTS: Normal sinus rhythm Possible Left atrial enlargement Left axis deviation Inferior infarct, age undetermined Anterolateral infarct, age undetermined Abnormal ECG Compared to ECG 02/14/2019 14:11:27 First degree AV block no longer present T-wave abnormality no longer present Myocardial infarct finding still present Electronically Signed On 05-09-19 13:59:55 SILVER BUFFER by Al Portillo
[2019-05-09 17:51] VITALS: TEMP 97.6
[2019-05-09 17:53] VITALS: BP 143/87; O2SAT 98
== END 2019-05-09 05:03 | disposition home or self-care (01) ==
LOC: ER 02:31
DX: J98.01 Acute bronchospasm (principal); I10 Essential (primary) hypertension; E03.9 Hypothyroidism, unspecified; I25.2 Old myocardial infarction; Z88.8 Allergy status to other drugs, medicaments and biological substances
CPT/HCPCS: 93005; 87040 ×2; 85025; 80048; 36415; 82550; 85610; 80076; 85730; 84484; 82553; 83690; 83880; 71045; 94640; 96374; 99285; J2930

== ENCOUNTER 2019-06-18 10:24 | Inpatient (IN) | payer OTHER ==
--- OUTSIDE RECORDS SUMMARY | 2019-06-18 10:33 | XMS REPORT | Summary of Care ---
:1930 Author Organization [facility] - [facility] Address [address] [place] [id number] Care Team Providers Name Role Phone Anthony Marcus Primary Care Provider Reason for Visit Reason Comments Refill Request Encounter Details Date Type Department Care Team Description 06/16/[address] [facility] Endocrinology- Emeterio Brooke MD Refill Request [address] Professional Office Jovanny [address] [place] [address] [place] [address] Dr[address] [phone] [place] [address] Allergies Active Allergy Reactions Severity Noted Date Comments Meperidine Hcl Hallucinations Medium 05/06/2015 documented as of this encounter (statuses as of 06/16/2019) Medications Medication Sig Dispensed Refills Start Date End Date Status warfarin (COUMADIN) 4 Take 8 mg by 0 Active mg tablet mouth every evening. carvedilol (COREG) Take 3.125 mg by 0 Active 3.125 mg tablet mouth 2 (two) times daily. lisinopril 5 mg Take 5 mg by 0 05/30/2017 Active tabletIndications: mouth daily. Postablative hypothyroidism levothyroxine 50 mcg Take 50 40 tablet 1 06/16/2019 Active tablet mcg-Tuesday through and 75 mcg on Tuesday, Tuesday and Tuesday documented as of this encounter (statuses as of 06/16/2019) Active Problems Problem Noted Date Graves disease 12/21/2016 Anticoagulated with warfarin 12/21/2016 documented as of this encounter (statuses as of 06/16/2019) Social History Tobacco Use Types Packs/Day Years Used Date Never Smoker Smokeless Tobacco: Never Used Alcohol Use Drinks/Week oz/Week Comments No 0 Standard drinks or equivalent 0.0 Sex Assigned at Date Recorded Not on file Job Start Date Occupation Industry Not on file Not on file Not on file Travel History Travel Start Travel End No recent travel history available. documented as of this encounter Last Filed Vital Signs Not on filedocumented in this encounter Plan of Treatment Date Type Specialty Care Team Description 09/07/2019 Office Visit Endocrinology Diabetes & Emeterio Brooke MD [address] [place] [address] [phone] Health Maintenance Due Date Last Done Comments DTaP,Tdap,and Td Vaccines (1 - Tdap) 1941 Zoster Recombinant Vaccine (SHINGRIX) (1 of 2) 1982 Medicare Wellness Visit 1997 PNEUMOCOCCAL VACCINES 65+ (1 of 2 - PCV13) 1997 INFLUENZA VACCINE (#1) 2018 documented as of this encounter Implants Implanted Type Area Head Of It Device Shelf Model / Serial Identifier Expiration / Lot Date Lens LENS Left: Eye Constantino 12/17/2019 [id number] / Implanted: Qty: 1 on 05/07/2015 by Leroy Bueno MD at [facility] [id number] / [id number] documented as of this encounter Results Not on filedocumented in this encounter Insurance Payer Benefit Plan / Subscriber ID Effective Dates Phone Address Type Group MEDICARE MEDICARE PART xxxxxxxxxxx 1997-Evelio [phone] [address] Medicare A & B t 2 [id number] documented as of this encounter
--- OUTSIDE RECORDS SUMMARY | 2019-06-18 10:33 | XMS REPORT | Summary of Care ---
:1930 Author Organization [facility] - [facility] Address [address] [place] [address] Care Team Providers Name Role Phone Anthony Marcus Primary Care Provider Reason for Visit Reason Comments Refill Request Encounter Details Date Type Department Care Team Description 06/15/2019 Refill [facility] Endocrinology- Emeterio Brooke MD Refill Request [address] Professional Office Jovanny [address] [place] [address] [place] [address] Dr. [address] [phone] [address] [place] [address] Allergies Active Allergy Reactions Severity Noted Date Comments Meperidine Hcl Hallucinations Medium 05/06/2015 documented as of this encounter (statuses as of 06/16/2019) Medications Medication Sig Dispensed Refills Start Date End Date Status warfarin (COUMADIN) Take 8 mg by 0 Active 4 mg tablet mouth every evening. carvedilol (COREG) Take 3.125 mg 0 Active 3.125 mg tablet by mouth 2 (two) times daily. lisinopril 5 mg Take 5 mg by 0 05/30/2017 Active tabletIndications: mouth daily. Postablative hypothyroidism levothyroxine 50 Take 50 40 tablet 1 06/16/2019 Active mcg tablet mcg-Tuesday through and 75 mcg on Tuesday, Tuesday and Tuesday levothyroxine 50 Take 50 40 tablet 1 12/01/2018 Discontinued mcg tablet mcg-Tuesday 0 (Reorder) through and 75 mcg on Tuesday, Tuesday [...] Visit Endocrinology Diabetes & Emeterio Brooke MD [address] [place] [address] [phone] Health Maintenance Due Date Last Done Comments DTaP,Tdap,and Td Vaccines (1 - Tdap) 1941 Zoster Recombinant Vaccine (SHINGRIX) (1 of 2) 1982 Medicare Wellness Visit 1997 PNEUMOCOCCAL VACCINES 65+ (1 of 2 - PCV13) 1997 INFLUENZA VACCINE (#1) 2018 documented as of this encounter Implants Implanted Type Area Manager Technical Training Device Shelf Model / Serial Identifier Expiration / Lot Date Lens LENS Left: Eye Constantino 12/17/2019 [id number] / Implanted: Qty: 1 on 05/07/2015 by Leroy Bueno MD at [facility] [id number] / [id number] documented as of this encounter Results Not on filedocumented in this encounter Insurance Payer Benefit Plan / Subscriber ID Effective Dates Phone Address Type Group MEDICARE MEDICARE PART xxxxxxxxxxx 1997-Evelio [phone] [address] Medicare A & B t 2 [id number] documented as of this encounter
--- OUTSIDE RECORDS SUMMARY | 2019-06-18 10:33 | XMS REPORT ---
:1930 Author Organization [facility] Address [address] [place] [address] Care Team Providers Name Role Phone Unavailable Unavailable Unavailable Problems This patient has no known problems. Allergies, Adverse Reactions, Alerts This patient has no known allergies or adverse reactions. Medications This patient has no known medications. Encounters Start End Encounter Admission Attending Care Care Encounter Date/Time Date/Time Type Type Clinicians Facility Department ID 2019-05-17 Inpatient [facility] [id number] 10:14:00 2019-04-08 2019-04-08 Inpatient E [facility] MED [id number] 19:32:00 14:39:00 2019-03-28 2019-03-28 Inpatient E [facility] [id number] 22:05:00 20:20:00 2019-03-28 2019-03-28 Emergency E [facility] [id number] 15:21:00 15:21:00 2019-03-09 2019-03-06 Inpatient E [facility] [id number] 11:09:00 20:28:00 2019-02-14 2019-02-14 Outpatient [facility] [id number] 18:48:00 18:48:00 2019-02-14 2019-02-14 Inpatient E [facility] [id number] 18:06:00 17:02:00
[2019-06-18 11:19] LABS: Protime INR 1.1
[2019-06-18 11:25] LABS: Absolute Lymphocytes (CBC) 1.1 K/uL (0.7-4.9); Basophils % 0.6 % (0-1.3); Hematocrit 38.7 % (39.6-49.0); Lymphocytes % 24.9 % (15.3-44.8); MPV 7.7 fL (7.6-11.3); RBC Red Blood Cell Count 4.35 M/uL (4.33-5.43)
--- NOTE | 2019-06-18 11:31 | RAD REPORT ---
EXAM DESCRIPTION: CT - Head Brain Wo Cont - 06/18/2019 11:18 am CLINICAL HISTORY: CONFUSED COMPARISON: No comparisons TECHNIQUE: Axial 5 mm thick images of the head were obtained without IV contrast. All CT scans are performed using dose optimization technique as appropriate and may include automated exposure control or mA/KV adjustment according to patient size. FINDINGS: No acute intracranial hemorrhage is present. Since the prior examination the patient has u ndergone surgery. There is a left frontotemporal craniotomy defect. No aneurysm clip is seen. 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 Bifrontal subdural hygroma or filter pulp washer wolfgang subdural hematoma seen 10-12 mm in thickness. Patient has prominent atrophy with ventricles in pr oportion. The chronic bifrontal collections do not cause mass effect. No acute cortical based infarct ion. No cortical edema or sulcal effacement. Mastoid air cells and visualized portions of the paranasal sinuses are clear. No acute bone findings seen. Proximity of the dens to the foramen magnum has not changed. Dense arter ial tree calcifications are present. IMPRESSION: No intracranial hemorrhage or mass lesions seen. No acute cortical based infarction iden tified. Bifrontal 10-12 mm thick subdural hygromas or chronic subdural hematomas. There is no mass effect and this is not felt to be a clinically significant finding. Patient has prominent atrophy and chronic ischemic changes that match January 2019 imaging. 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
--- NOTE | 2019-06-18 11:38 | RAD REPORT ---
EXAM DESCRIPTION: RAD - Chest Single View - 06/18/2019 10:58 am CLINICAL HISTORY: COUGH Chest pain. COMPARISON: Chest Single View dated 05/09/2019; Chest Single View dated 02/14/2019; Chest Pa And Lat (2 Views) dated 06/28/2017; CHEST PA AND LAT 2 VIEW dated 12/06/2014 FINDINGS: Portable technique limits examination quality. Mild bilateral pulmonary opacities are present likely representing pulmonary edema. The heart is mode rately enlarged in size. Hardware plate is present in the cervical spine. IMPRESSION: Mild CHF versus volume overload pattern.
[2019-06-18 11:40] LABS: ALT/SGPT 14 U/L (12-78); AST/SGOT 16 U/L (15-37); Albumin 3.3 g/dL (3.4-5.0); Alkaline Phosphatase 83 U/L (45-117); BUN Blood Urea Nitrogen 5 mg/dL (7-18); Bicarbonate 27 mmol/L (21-32); Bilirubin Direct 0.2 mg/dL (0-0.2); Bilirubin Total 0.7 mg/dL (0.2-1.0); Glucose Level 118 mg/dL (74-106); NT PRO-BNP 162 pg/mL (<450); Sodium Level 129 mmol/L (136-145); Troponin (Emerg Dept Use Only) < 0.02 ng/mL (0.0-0.045)
[2019-06-18 11:41] LABS: Lipase 68 U/L (73-393); Magnesium 1.7 mg/dL (1.8-2.4)
[2019-06-18] MEDS ORDERED: NA CHLORIDE 0.9% 1,000 ML ONE (11:41)
[2019-06-18 12:14] LABS: Platelet Estimate ADEQ; White Blood Cell Scan OK
[2019-06-18 12:15] LABS: Blood Morphology Comment NOT SEEN (NOT SEEN)
--- NOTE | 2019-06-18 13:12 | ER ---
Nurse's Notes [facility] Name: Beto Schreiber Sr Age: 89 yrs Sex: Male : 1930 Arrival Date: 06/18/2019 Time: 10:31 Bed 6 Private MD: Diagnosis: Altered mental status, unspecified;Unspecified combined systolic (congestive) and diastolic (congestive) heart failure;Nontraumatic chronic subdural hemorrhage-bifrontal;Hypomagnesemia;Urinary tract infection, site not specified Presentation: 06/17 10:31 Chief complaint: EMS states: AMS NOTED AT HOME, UNKNOWN ONSET/BASELINE. Coronavirus bp screen: The patient has NOT traveled to [place] in the past 14 days. Proceed with normal triage procedures. The patient has NOT had contact with known and/or suspected case of Coronavirus. Proceed with normal triage procedures. Ebola Screen: No symptoms or risks identified at this time. Initial Sepsis Screen: Does the patient meet any 2 criteria? Altered Mental Status. No. Patient's initial sepsis screen is negative. Does the patient have a suspected source of infection? No. Patient's initial sepsis screen is negative. Risk Assessment: Do you want to hurt yourself or someone else? Patient reports no desire to harm self or others. Care prior to arrival: Glucose check: 124. 10:31 Acuity: ASMITA 2 bp 10:31 Method Of Arrival: EMS: [facility] bp 15:52 Onset of symptoms is unknown. bp Triage Assessment: 10:36 General: Appears in no apparent distress. comfortable, Behavior is cooperative. Pain: bp Unable to use pain scale. Does not appear to understand pain scale. EENT: No deficits noted. Neuro: Level of Consciousness is awake, confused, Oriented to none. Cardiovascular: Rhythm is sinus rhythm. Respiratory: No deficits noted. GI: PEG tube in place, clamped. Site clean. : No signs and/or symptoms were reported regarding the genitourinary system. Derm: No deficits noted. Musculoskeletal: No deficits noted. Historical: - Allergies: 10:36 Meperidine; bp - Home Meds: 10:36 Coreg 3.125 mg Oral tab [Active]; levothyroxine 50 mcg oral tab 1 tab once daily bp [Active]; Lasix 20 mg Oral tab 1 tab 2 times per day [Active]; - PMHx: 10:36 Hypertension; Hypothyroidism; Myocardial infarction; SUBDURAL HEMATOMA; CVA; Diabetes - bp NIDDM; - PSHx: 10:36 BRAIN SURGERY; PEG TUBE; bp - Immunization history:: Adult Immunizations up to date. - Social history:: Smoking status: Patient denies any tobacco usage or history of. - Family history:: not pertinent. Screenin:38 Abuse screen: Denies threats or abuse. Denies injuries from another. Nutritional bp screening: No deficits noted. Tuberculosis screening: No symptoms or risk factors identified. Fall Risk None identified. Assessment: 10:38 General: SEE TRIAGE NOTE. bp 11:45 Reassessment: MRI PENDING. PER FAMILY, PT "LESS VERBAL" THAN BASELINE. bp 12:57 Reassessment: FAMILY ASSISTING PT WITH TOILETING. MRI PENDING. bp 14:30 Reassessment: DR MOORE AT B/S FOR ADMIT. bp 15:39 Reassessment: report called to Skyla WETZEL. ph Vital Signs: 10:31 BP 164 / 87; Pulse 70; Resp 18; Temp 97.5; Pulse Ox 98% ; Weight 68.04 kg; bp 11:45 BP 162 / 85; Pulse 67; Resp 19; Pulse Ox 97% ; bp 12:57 BP 164 / 96; Pulse 68; Resp 20; Pulse Ox 96% ; bp 14:00 BP 167 / 89; Pulse 65; Resp 17; Pulse Ox 97% ; bp 15:53 BP 170 / 98; Pulse 67; Resp 17; Temp 98; Pulse Ox 98% ; bp ED Course: 10:31 Patient arrived in ED. bp 10:33 Triage completed. bp 10:36 Arm band placed on. bp 10:38 Gaston Gutiérrez MD is Attending Physician. ian 10:38 Patient has correct armband on for positive identification. Bed in low position. Call bp light in reach. Side rails up X2. 10:42 Santiago Dalton, RN is Primary Nurse. bp 11:00 XRAY Chest (1 view) In Process Unspecified. EDMS 11:24 CT Head Brain wo Cont In Process Unspecified. EDMS 11:24 Inserted saline lock: 22 gauge in left antecubital area, using aseptic technique. Blood bp collected. 12:00 EKG done, by ED staff, reviewed by Gaston Gutiérrez MD. dh3 13:08 Prezas, Santy, DO is Hospitalizing Provider. ian 13:34 Brain Wo Cont In Process Unspecified. EDMS 15:52 No provider procedures requiring assistance completed. Patient admitted, IV remains in bp place. Administered Medications: 11:00 Drug: NS 0.9% 1000 ml Route: IV; Rate: 125 ml/hr; Site: left forearm; bp 15:42 Follow up: IV Status: Infusion continued upon admission bp 13:30 Drug: Magnesium Sulfate 1 grams Route: IVPB; Infused Over: 1 hrs; Site: left forearm; bp 15:42 Follow up: IV Status: Completed infusion; IV Intake: 100ml bp 14:45 Drug: Rocephin 1 grams Route: IV; Rate: per protocol; Site: left forearm; bp 15:43 Follow up: IV Status: Completed infusion; IV Intake: 50ml bp Intake: 15:42 IV: 100ml; Total: 100ml. bp 15:43 IV: 50ml; Total: 150ml. bp Outcome: 13:11 Decision to Hospitalize by Provider. ian 15:52 Admitted to Med/surg accompanied by tech, family with patient, via stretcher, room 401, bp Report called to SKYLA WETZEL 15:52 Condition: stable 15:52 Instructed on the need for admit. 16:15 Patient left the ED. bp Signatures: Dispatcher [employer] Gaston Sumner MD MD cha Hall, Patricia, RN RN Alie Treviño [facility] Santiago Dalton, RN RN bp
--- NOTE | 2019-06-18 13:12 | EDPHYS ---
Physician Documentation [facility] Name: Beto Schreiber Sr Age: 89 yrs Sex: Male : 1930 Arrival Date: 06/18/2019 Time: 10:31 Bed 6 Private MD: ED Physician Gaston Gutiérrez HPI: 06/17 11:41 This 89 yrs old Black Male presents to ER via EMS with complaints of Altered Mental ian Status. 11:41 The patient presents with trouble concentrating. Onset: The symptoms/episode ian began/occurred this morning. Possible causes: CVA or TIA, low blood sugar. Associated signs and symptoms: The patient has no apparent associated signs or symptoms. Current symptoms: In the emergency department the patient's symptoms are unchanged from the initial presentation. Patient's baseline: Neuro:. The patient has not experienced similar symptoms in the past. Historical: - Allergies: 10:36 Meperidine; bp - Home Meds: 10:36 Coreg 3.125 mg Oral tab [Active]; levothyroxine 50 mcg oral tab 1 tab once daily bp [Active]; Lasix 20 mg Oral tab 1 tab 2 times per day [Active]; - PMHx: 10:36 Hypertension; Hypothyroidism; Myocardial infarction; SUBDURAL HEMATOMA; CVA; Diabetes - bp NIDDM; - PSHx: 10:36 BRAIN SURGERY; PEG TUBE; bp - Immunization history:: Adult Immunizations up to date. - Social history:: Smoking status: Patient denies any tobacco usage or history of. - Family history:: not pertinent. ROS: 11:41 Constitutional: Negative for fever, chills, and weight loss, Eyes: Negative for injury, ian pain, redness, and discharge, ENT: Negative for injury, pain, and discharge, Neck: Negative for injury, pain, and swelling, Cardiovascular: Negative for chest pain, palpitations, and edema, Respiratory: Negative for shortness of breath, cough, wheezing, and pleuritic chest pain, Abdomen/GI: Negative for abdominal pain, nausea, vomiting, diarrhea, and constipation, Back: Negative for injury and pain, : Negative for injury, bleeding, discharge, and swelling, MS/Extremity: Negative for injury and deformity, Skin: Negative for injury, rash, and discoloration, Psych: Negative for depression, anxiety, suicide ideation, homicidal ideation, and hallucinations, Allergy/Immunology: Negative for hives, rash, and allergies, Endocrine: Negative for neck swelling, polydipsia, polyuria, polyphagia, and marked weight changes, Hematologic/Lymphatic: Negative for swollen nodes, abnormal bleeding, and unusual bruising. 11:41 Neuro: Positive for altered mental status, weakness. Exam: 11:41 Constitutional: This is a well developed, well nourished patient who is awake, alert, ian and in no acute distress. Head/Face: Normocephalic, atraumatic. Eyes: Pupils equal round and reactive to light, extra-ocular motions intact. Lids and lashes normal. Conjunctiva and sclera are non-icteric and not injected. Cornea within normal limits. Periorbital areas with no swelling, redness, or edema. ENT: Nares patent. No nasal discharge, no septal abnormalities noted. Tympanic membranes are normal and external auditory canals are clear. Oropharynx with no redness, swelling, or masses, exudates, or evidence of obstruction, uvula midline. Mucous membranes moist. Neck: Trachea midline, no thyromegaly or masses palpated, and no cervical lymphadenopathy. Supple, full range of motion without nuchal rigidity, or vertebral point tenderness. No Meningismus. Chest/axilla: Normal chest wall appearance and motion. Nontender with no deformity. No lesions are appreciated. Cardiovascular: Regular rate and rhythm with a normal S1 and S2. No gallops, murmurs, or rubs. Normal PMI, no JVD. No pulse deficits. Respiratory: Lungs have equal breath sounds bilaterally, clear to auscultation and percussion. No rales, rhonchi or wheezes noted. No increased work of breathing, no retractions or nasal flaring. Abdomen/GI: Soft, non-tender, with normal bowel sounds. No distension or tympany. No guarding or rebound. No evidence of tenderness throughout. Back: No spinal tenderness. No costovertebral tenderness. Full range of motion. Male : Normal genitalia with no discharge or lesions. Skin: Warm, dry with normal turgor. Normal color with no rashes, no lesions, and no evidence of cellulitis. MS/ Extremity: Pulses equal, no cyanosis. Neurovascular intact. Full, normal range of motion. Neuro: Awake and alert, GCS 15, oriented to person, place, time, and situation. Cranial nerves II-XII grossly intact. Motor strength 5/5 in all extremities. Sensory grossly intact. Cerebellar exam normal. Normal gait. Psych: Awake, alert, with orientation to person, place and time. Behavior, mood, and affect are within normal limits. Vital Signs: 10:31 BP 164 / 87; Pulse 70; Resp 18; Temp 97.5; Pulse Ox 98% ; Weight 68.04 kg; bp 11:45 BP 162 / 85; Pulse 67; Resp 19; Pulse Ox 97% ; bp 12:57 BP 164 / 96; Pulse 68; Resp 20; Pulse Ox 96% ; bp 14:00 BP 167 / 89; Pulse 65; Resp 17; Pulse Ox 97% ; bp 15:53 BP 170 / 98; Pulse 67; Resp 17; Temp 98; Pulse Ox 98% ; bp MDM: 10:38 Patient medically screened. [facility] 11:42 Data reviewed: vital signs, nurses notes, lab test result(s), EKG, radiologic studies, [facility] CT scan, plain films. 06/17 10:40 Order name: Basic Metabolic Panel; Complete Time: 13: [facility] 06/17 10:40 Order name: CBC with Diff; Complete Time: 13: [facility] 06/17 10:40 Order name: LFT's; Complete Time: 13: [facility] 06/17 10:40 Order name: Magnesium; Complete Time: 13: [facility] 06/17 10:40 Order name: NT PRO-BNP; Complete Time: 13: [facility] 06/17 10:40 Order name: PT-INR; Complete Time: 13: [facility] 06/17 10:40 Order name: Troponin (emerg Dept Use Only); Complete Time: 13: [facility] 06/17 10:40 Order name: Lipase; Complete Time: 13: [facility] 06/17 10:40 Order name: Urine Culture [facility] 06/17 11:32 Order name: CBC Smear Scan; Complete Time: 13:01 EDMS 06/17 13:22 Order name: Lactate [facility] 06/17 13:22 Order name: Procalcitonin [facility] 06/17 13:52 Order name: Urinalysis; Complete Time: 14:19 EDMS 06/17 14:02 Order name: Urine Dipstick--Ancillary (enter results); Complete Time: 14:19 06/17 10:40 Order name: XRAY Chest (1 view); Complete Time: 13:01 [facility] 06/17 10:40 Order name: EKG; Complete Time: 10:42 [facility] 06/17 10:40 Order name: Cardiac monitoring; Complete Time: 10:42 [facility] 06/17 10:40 Order name: EKG - Nurse/Tech; Complete Time: 11:24 [facility] 06/17 10:40 Order name: IV Saline Lock; Complete Time: 11:24 [facility] 06/17 10:40 Order name: Labs collected and sent; Complete Time: 11:24 [facility] 06/17 10:40 Order name: O2 Per Protocol; Complete Time: 10:42 [facility] 06/17 10:40 Order name: O2 Sat Monitoring; Complete Time: 10:42 [facility] 06/17 10:40 Order name: CT Head Brain wo Cont; Complete Time: 13:01 [facility] 06/17 10:40 Order name: Urine Dipstick-Ancillary (obtain specimen); Complete Time: 11:44 [facility] 06/17 12:36 Order name: Brain Wo Cont; Complete Time: 14:19 EDMS 06/17 14:04 Order name: Urine Microscopic Only; Complete Time: 14:19 EDMS Administered Medications: 11:00 Drug: NS 0.9% 1000 ml Route: IV; Rate: 125 ml/hr; Site: left forearm; bp 15:42 Follow up: IV Status: Infusion continued upon admission bp 13:30 Drug: Magnesium Sulfate 1 grams Route: IVPB; Infused Over: 1 hrs; Site: left forearm; bp 15:42 Follow up: IV Status: Completed infusion; IV Intake: 100ml bp 14:45 Drug: Rocephin 1 grams Route: IV; Rate: per protocol; Site: left forearm; bp 15:43 Follow up: IV Status: Completed infusion; IV Intake: 50ml bp Disposition: 06/18/19 13:11 Hospitalization ordered by Santy Martinez for Inpatient Admission. Preliminary diagnosis are Altered mental status, unspecified, Unspecified combined systolic (congestive) and diastolic (congestive) heart failure, Nontraumatic chronic subdural hemorrhage - bifrontal, Hypomagnesemia, Urinary tract infection, site not specified. - Bed requested for Telemetry/MedSurg (Inpatient). - Status is Inpatient Admission. bp - Condition is Fair. - Problem is new. - Symptoms have improved. Signatures: Dispatcher [employer] EDMS Pulido Claudia bd Gaston Gutiérrez MD MD cha Peltier, Brian, RN RN bp Corrections: (The following items were deleted from the chart) 12:36 11:42 MR STROKE PROTOCOL+MRI.RAD.BRZ ordered. [facility] 14:21 13:11 Hospitalization Ordered by Santy Martinez DO for Inpatient Admission. Preliminary ian diagnosis is Altered mental status, unspecified; Unspecified combined systolic (congestive) and diastolic (congestive) heart failure; Nontraumatic chronic subdural hemorrhage - bifrontal; Hypomagnesemia. Bed requested for Telemetry/MedSurg (Inpatient). Status is Inpatient Admission. Condition is Fair. Problem is new. Symptoms have improved. ian 15:06 14:21 06/18/2019 13:11 Hospitalization Ordered by Santy Martinez DO for Inpatient bd Admission. Preliminary diagnosis is Altered mental status, unspecified; Unspecified combined systolic (congestive) and diastolic (congestive) heart failure; Nontraumatic chronic subdural hemorrhage - bifrontal; Hypomagnesemia; Urinary tract infection, site not specified. Bed requested for Telemetry/MedSurg (Inpatient). Status is Inpatient Admission. Condition is Fair. Problem is new. Symptoms have improved. ian 15:31 15:06 06/18/2019 13:11 Hospitalization Ordered by Santy Martinez DO for Inpatient bd Admission. Preliminary diagnosis is Altered mental status, unspecified; Unspecified combined systolic (congestive) and diastolic (congestive) heart failure; Nontraumatic chronic subdural hemorrhage - bifrontal; Hypomagnesemia; Urinary tract infection, site not specified. Bed requested for Telemetry/MedSurg (Inpatient). Status is Inpatient Admission. Condition is Fair. Problem is new. Symptoms have improved. bd 16:15 15:31 06/18/2019 13:11 Hospitalization Ordered by Santy Martinez DO for Inpatient bp Admission. Preliminary diagnosis is Altered mental status, unspecified; Unspecified combined systolic (congestive) and diastolic (congestive) heart failure; Nontraumatic chronic subdural hemorrhage - bifrontal; Hypomagnesemia; Urinary tract infection, site not specified. Bed requested for Telemetry/MedSurg (Inpatient). Status is Inpatient Admission. Condition is Fair. Problem is new. Symptoms have improved. bd
[2019-06-18] MEDS ORDERED: MAGNESIUM SULFATE 1 gm IVPB 1 GM/100 ML BAG IV ONE (13:35)
[2019-06-18 13:53] LABS: Urine Appearance CLEAR; Urine Bilirubin NEGATIVE (NEG); Urine Blood NEGATIVE (NEG); Urine Color YELLOW; Urine Glucose NEGATIVE (NEG); Urine Protein NEGATIVE (NEG); Urine Specific Gravity <=1.005 (1.005-1.030); Urine Urobilinogen 0.2 mg/dL (0.2-1.0)
[2019-06-18 13:54] LABS: Urine Microscopic Reflex ORDER UMIC
[2019-06-18 14:04] LABS: Urine Bacteria >50 /HPF (NONE SEEN); Urine RBC NONE SEEN /HPF (NONE SEEN)
--- NOTE | 2019-06-18 14:05 | RAD REPORT ---
EXAM DESCRIPTION: MRI - Brain Wo Cont - 06/18/2019 1:34 pm CLINICAL HISTORY: MENTAL STATUS CHANGE Headache, drowsiness COMPARISON: Head Brain Wo Cont dated 06/18/2019; Head C Spine Cap Wo Con dated 02/14/2019 TECHNIQUE: Multi-sequence, multiplanar MR imaging of the brain was performed without contrast. FINDINGS: The examination is moderately motion degraded. Chronic subdural hematoma suspected in both frontal region, along the left frontal region measuring 1 4 mm in thickness and on the right measuring 10 mm. Small amount of chronic subdural also present tremayne ng the left convexity measuring 4 mm. Postsurgical gliosis is seen in the left temporal region. Moderate T2 and FLAIR hyperintensity is present in the periventricular and deep white matter. No evid ence of shift of midline structures. DWI is negative for acute CVA. Midline structures are normally formed. Mastoid air cells and paranasal sinuses are clear. IMPRESSION: Chronic subdural hematomas are suspected as detailed without midline shift. No acute CVA is demonstrated. Examination is moderately motion degraded.
[2019-06-18 14:15] LABS: Urine Blood TRACE (NEG); Urine Glucose NEGATIVE (NEG); Urine Protein NEGATIVE (NEG)
[2019-06-18] MEDS ORDERED: CEFTRIAXONE/SWI 1gm 1 GM/10 ML SYR ONE (14:30)
--- NOTE | 2019-06-18 15:32 | EKG ---
Test Date: 2019-06-18 Test Time: 11:58:58 Web Developer: MARIELENA MEASUREMENT RESULTS: Intervals: Rate: 65 HI: 210 QRSD: 84 QT: 400 QTc: 416 [place]: P: 54 HI: 210 QRS: -67 T: 234 INTERPRETIVE STATEMENTS: Sinus rhythm with 1st degree AV block Left axis deviation Low voltage QRS Anterior infarct, age undetermined T wave abnormality, consider inferolateral ischemia Abnormal ECG Compared to ECG 05/09/2019 03:29:50 First degree AV block now present Low QRS voltage now present T-wave abnormality now present Electronically Signed On 06-18-19 15:32:07 DIRECTOR OF ANALYTICS by Al Portillo
--- NOTE | 2019-06-18 15:42 | P.HP ---
Certification for Inpatient Patient admitted to: Observation With expected LOS: <2 Midnights Patient will require the following post-hospital care: Home Health Services Practitioner: I am a practitioner with admitting privileges, knowledge of patient current condition, hospital course, and medical plan of care. Services: Services provided to patient in accordance with Admission requirements found in Title 42 Section 412.3 of the Code of Federal Regulations Patient History Date of Service: 06/18/19 Primary Care Provider: Dr. Marcus; Neurology-Dr. 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 Family present at bedside. Family reports patient had been complaining of some dysuria recently. No significant nausea or vomiting noted. No abdominal pain noted. No fever noted. Today he was more confused than his baseline. Family reports that he has been retaining his urine. Patient came to the ER for further evaluation. In the ER patient was evaluated. Vital signs stable. White count 4.6, hemoglobin 12.8. Platelet count 180. Sodium 129, potassium 4.2. BUN of 5, creatinine 0.9 with a GFR greater than 90. Glucose 118. Urinalysis was positive for bacteria. X-ray shows possible pulmonary edema. CT head shows no acute ranges. Chronic changes noted. MRI brain shows no acute changes but chronic subdural hematomas noted. No midline shift noted. Patient was started on IV antibiotic therapy. Patient admitted for further evaluation and treatment. When I saw the patient ER, he appeared comfortable. He did not appear septic. Family at bedside. Allergies meperidine HCl [From Demerol] Allergy (Verified 05/21/15 12:50) hallucinations Home medications list reviewed: Yes Home Medications: Colestipol HCl [Colestid] 1 gm PO TID 05/21/15 Dutasteride/Tamsulosin HCl [Cathi 0.5-0.4 mg Capsule] 1 each PO DAILY 05/21/15 Nitroglycerin Patch [Transderm-Nitro 0.1MG/Hr Patch] 1 each TD DAILY 05/21/15 Tamsulosin [Flomax] 0.4 mg PO BEDTIME 05/21/15 Warfarin Sodium [Coumadin] 6 mg PO DAILY 5 PM 05/21/15 carvediloL [Coreg] 3.125 mg PO BID 05/21/15 - Past Medical/Surgical History Diabetic: No -: Hypertension -: Hypothyroidism -: CHF -: CAD -: History of subdural hematomas -: PEG tube -: Craniotomy Psychosocial/ Personal History: Patient lives at home. Patient receives home health. - Family History Family History: Reviewed- Non-Contributory - Social History Smoking Status: Former smoker Alcohol use: Yes CD- Drugs: No Caffeine use: Yes Place of Residence: Home Review of Systems General: As per HPI Eyes: Unremarkable ENT: Unremarkable Respiratory: Unremarkable Cardiovascular: Unremarkable Gastrointestinal: Unremarkable Genitourinary: Dysuria, Incontinence, Retention, As per HPI Musculoskeletal: Unremarkable Integumentary: Unremarkable Neurological: As per HPI Lymphatics: Unremarkable Physical Examination - Physical Exam General: Alert, In no apparent distress, Cooperative, Other (Patient does not talk much. He was cooperative during the examination.) HEENT: Atraumatic, Mucous membr. moist/pink Neck: Supple Respiratory: Crackles/rales (Crackles to the bases) Cardiovascular: Normal pulses, Regular rate/rhythm Gastrointestinal: Normal bowel sounds, Soft and benign, Non-distended, No ascites, No tenderness, No masses, No rebound, No guarding, Other (PEG tube in place) Musculoskeletal: No erythema, No tenderness, No warmth Integumentary: No tenderness/swelling, No erythema, No warmth, No cyanosis Neurological: Normal speech, Normal strength at 5/5 x4 extr, Normal tone, Normal affect - Studies Laboratory Data (last 24 hrs) 06/18/19 11:05: PT 12.9 H, INR 1.10 06/18/19 11:05: WBC 4.6, Hgb 12.8 L, Hct 38.7 L, Plt Count 180 06/18/19 11:05: Sodium 129 L, Potassium 4.0, BUN 5 L, Creatinine 0.94, Glucose 118 H, Magnesium 1.7 L, Total Bilirubin 0.7, AST 16, ALT 14, Alkaline Phosphatase 83, Lipase 68 L Assessment and Plan - Plan Impression Acute encephalopathy likely related to UTI Acute on chronic diastolic CHF Hypertension Chronic hyponatremia History of subdural hematomas 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 Will start Rocephin. Urine and blood cultures obtained. Will monitor closely. Anticipate improvement over the next 24-48 hr. Possible discharge within that time. Acute on chronic diastolic CHF: X-ray shows pulmonary edema. Will obtain echocardiogram. Will start Lasix IV. Will teach on fluid restriction. Recheck chest x-ray tomorrow. Hypertension: Restart home medication. Will monitor and adjust appropriately. Chronic hyponatremia: Will continue with sodium tablets. Will monitor closely. History of subdural hematomas: Patient with history of subdural hematomas. Will provide SCDs for DVT prophylaxis. MRI negative. 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 Patient still has PEG tube in place for medications. Discharge Plan: Home Plan to discharge in: 48 Hours - Advance Directives Does patient have a Living Will: No Does patient have a Durable POA for Healthcare: No - Code Status/Comfort Care Code Status Assessed: Yes (This was addressed in detail. Patient is do not resuscitate.) Time Spent Managing Pts Care (In Minutes): 55
[2019-06-18 16:40] VITALS: BMI 25.7
[2019-06-18] MEDS ORDERED: ONDANSETRON 4 MG/2 ML VIAL IV PRN (16:45)
[2019-06-18] MEDS ORDERED: ZINC OXIDE 40% 30 GM TUBE TOP PRN (16:45)
[2019-06-18] MEDS ORDERED: ACETAMINOPHEN 500 MG TAB PO PRN (16:45)
[2019-06-18] MEDS ORDERED: FUROSEMIDE 20 MG/ 2ML VIAL IV SCH (17:00)
[2019-06-18] MEDS ORDERED: INFLUENZA VACCINE (for 3y+) 0.5 ML DOSE IMVAC ONE (18:00)
[2019-06-18] MEDS: carvediloL 3.125 MG TAB PO SCH (18:19)
[2019-06-18] MEDS: KETOCONAZOLE CREAM 15 GM TUBE TOP SCH (21:48)
[2019-06-18] MEDS: SODIUM CHLORIDE 1 GM TAB PO SCH (21:49)
[2019-06-18] MEDS: CEFTRIAXONE/SWI 1gm 1 GM/10 ML SYR IV SCH (21:49)
[2019-06-18] MEDS ORDERED: MAGNES/ALUMIN/SIMET 30ML UCUP FT PRN (21:52)
[2019-06-19 04:27] LABS: Absolute Lymphocytes (CBC) 1.1 K/uL (0.7-4.9); Basophils % 0.2 % (0-1.3); Hematocrit 35.1 % (39.6-49.0); Lymphocytes % 20.1 % (15.3-44.8); MPV 8.1 fL (7.6-11.3); RBC Red Blood Cell Count 4.01 M/uL (4.33-5.43)
[2019-06-19 04:49] LABS: Magnesium 1.9 mg/dL (1.8-2.4); Potassium 3.6 mmol/L (3.5-5.1); Thyroid Stimulating Hormone 1.13 uIU/mL (0.360-3.740)
[2019-06-19] MEDS ORDERED: POTASSIUM 25 MEQ EFFERV TAB FT ONE (05:04)
[2019-06-19] MEDS: carvediloL 3.125 MG TAB PO SCH (05:37)
[2019-06-19] MEDS: LEVOTHYROXINE SOD 0.05 MG TABLET PO SCH (06:20)
--- NOTE | 2019-06-19 07:25 | RAD REPORT ---
EXAM DESCRIPTION: RAD - Chest Single View - 06/19/2019 7:03 am CLINICAL HISTORY: Follow up CHF COMPARISON: Chest Single View dated 06/18/2019; Chest Single View dated 05/09/2019 TECHNIQUE: AP portable chest image was obtained 06/19/2019 7:03 am . FINDINGS: Low lung volumes noted. Left base opacification is still present obscuring the left hemidi aphragm and blunting the left costophrenic angle. Central vasculature and lung markings remain promin ent. Cardiac silhouette remains enlarged. No pneumothorax. No acute bony abnormality seen. No acute a ortic findings suspected. IMPRESSION: CHF/ volume overload pattern is slightly improved from comparison.
[2019-06-19] MEDS ORDERED: NA CHLORIDE 0.9% 250 ML IV PRN ×2 (07:40→07:42)
[2019-06-19] MEDS ORDERED: NA CHLORIDE 0.9% 250 ML IV ONE (07:45)
[2019-06-19] MEDS: KETOCONAZOLE CREAM 15 GM TUBE TOP SCH ×2 (08:25→20:17)
[2019-06-19] MEDS: CEFTRIAXONE/SWI 1gm 1 GM/10 ML SYR IV SCH ×2 (08:25→20:16)
[2019-06-19] MEDS: SODIUM CHLORIDE 1 GM TAB PO SCH ×3 (08:25→20:16)
--- NOTE | 2019-06-19 08:28 | P.PN ---
Subjective Date of Service: 06/19/19 Primary Care Provider: Dr. Marcus; Neurology-Dr. Carpio Chief Complaint: Confusion Subjective: Other (Confusion improved. Patient with some dysphagia but has history of dysphasia. Patient normally talks but had difficulty with talking today. Family at bedside.) Physical Examination - Vital Signs Temperature: 98.8 F Blood Pressure: 105/63 Pulse: 80 Respirations: 16 Pulse Ox (%): 92 - Physical Exam General: Alert, Cooperative, Other (Patient is cooperative. Some sluggishness in his movements but this is apparently his baseline. Patient is not talking which is unusual for him.) HEENT: Atraumatic Neck: Supple Respiratory: Clear to auscultation bilaterally, Normal air movement Cardiovascular: Normal pulses, Regular rate/rhythm Gastrointestinal: Normal bowel sounds, Non-distended, No tenderness, No masses, No rebound, No guarding Neurological: Abnormal speech (Patient not talking maybe confused), Abnormal strength (Patient has will weakness bilateral but this appears to be at his baseline. Good range of motion.), Abnormal affect (Patient appears slightly confuse.) - Studies Laboratory Data (last 24 hrs) 06/18/19 11:05: PT 12.9 H, INR 1.10 06/18/19 11:05: WBC 4.6, Hgb 12.8 L, Hct 38.7 L, Plt Count 180 06/18/19 11:05: Sodium 129 L, Potassium 4.0, BUN 5 L, Creatinine 0.94, Glucose 118 H, Magnesium 1.7 L, Total Bilirubin 0.7, AST 16, ALT 14, Alkaline Phosphatase 83, Lipase 68 L Medications List Reviewed: Yes Assessment & Plan Discharge Plan: Home Plan to discharge in: 48 Hours Physician Review Additional Text: Impression Acute encephalopathy likely related to UTI Acute on chronic diastolic CHF Hypertension Chronic hyponatremia History of subdural hematomas 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 Blood and urine cultures obtained. Blood pressure slightly low today. This was recheck. Blood pressure improved will obtain procalcitonin and lactic acid to evaluate for possible sepsis. Doubt sepsis at this time. Will also provide 250 bolus of normal saline to maintain blood pressure. Patient with history of subdural hematomas. MRI and CT head done yesterday unremarkable. Will repeat CT head to make sure there has been any interval change. Sodium still 129. Will consult Nephrology to further evaluate. This is chronic. Await recommendations. Will also consult Neurology due to his lack of speech. This may be a component of his encephalopathy related to the UTI. Will monitor closely. Will also have speech evaluate swallowing. Patient with history of dysphagia related to his prior CVA. Patient on SCD for DVT prophylaxis. Will discuss further with Neurology. Acute on chronic diastolic CHF: X-ray shows shows improvement. Will hold Lasix at this time due to slight decrease in blood pressure. Will give 250 bolus. Maintain blood pressure around 110 systolic. Patient takes Lasix at home. Will obtain echocardiogram to further evaluate. Hypertension: Restart home medication but hold if blood pressure systolic less than 110 Chronic hyponatremia: Patient remains on sodium tablets which she takes normally. Will discuss with nephrology who is been consulted to help with this. History of subdural hematomas: CT head and MRI head negative yesterday. Still with some slight confusion and with aphasia. This is likely a component of his encephalopathy related to UTI. Will provide IV fluid bolus at this time. Will recheck CT scan to further evaluate. Will obtain neurology evaluation. 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 Will have speech evaluate. Patient may require modified barium swallow to further evaluate. Patient seen by speech therapy as an outpatient. Patient with PEG tube at this time. Will keep the patient NPO at this time. Await recommendations by speech. Await CT scan results. Time Spent Managing Pts Care (In Minutes): 55
--- NOTE | 2019-06-19 10:46 | RAD REPORT ---
EXAM DESCRIPTION: CT - Head Brain Wo Cont - 06/19/2019 9:57 am CLINICAL HISTORY: Confusion, aphasia COMPARISON: Head Brain Wo Cont dated 06/18/2019; Brain Wo Cont dated 06/18/2019; Head C Spine Cap Wo Con dated 02/14/2019 TECHNIQUE: Axial 5 mm thick images of the head were obtained without IV contrast. All CT scans are performed using dose optimization technique as appropriate and may include automated exposure control or mA/KV adjustment according to patient size. FINDINGS: Since the prior day imaging no intracranial hemorrhage has developed. The bifrontal chroni c subdural hematoma or subdural hygroma has not changed. 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 Pattern is not clearly diff erent from prior day imaging. No new cortical edema or sulcal effacement. Underlying atrophy and prop ortional ventriculomegaly noted. IMPRESSION: No intracranial hemorrhage has developed. No new finding is identified when compared with prior day CT and MR imaging. The extent of chronic disease can mask nonhemorrhagic CVA.
[2019-06-19] MEDS ORDERED: MAGNESIUM SULFATE 1 gm IVPB 1 GM/100 ML BAG IV ONE (11:11)
[2019-06-19] MEDS: POTASSIUM CL 40 MEQ in NA CHLORIDE 0.9% 500 ML IV SCH (13:51)
--- NOTE | 2019-06-19 14:45 | RAD REPORT ---
EXAM DESCRIPTION: RAD - Barium Swallow Modified - 06/19/2019 2:19 pm CLINICAL HISTORY: dysphagia COMPARISON: None. TECHNIQUE: The patient was given liquid, semi-solid and solid forms of barium. Lateral view fluorosc opic imaging was performed in conjunction with speech pathology service. FINDINGS: Cineloop acquisitions: 22 Fluoro time: 5 minutes 1 second Laryngeal penetration: thin by large cup sip, cleared Pharyngeal residue: Mild to moderate with honey, puree and kevin cracker in the vallecular. Delayed swallow (1 sec). Mild esophageal stasis and retropulsion with chewable solids at the end of s tudy. IMPRESSION: Modified barium swallow as summarized above and fully detailed on speech pathology repor tSaurabh
--- NOTE | 2019-06-19 15:09 | CON ---
Date of Consultation: 06/19/2019 Reason For Consultation: Hyponatremia. History Of Present Illness: All the information has been obtained from the daughter by bedside as patient is a poor historian, nonverbal. This is an unfortunate 89-year-old gentleman with significant past medical history of hypothyroidism, hypertension, CVA complicated with subdural hematoma back in 2019 complicated with memory loss, coronary artery disease, no congestive heart failure. Patient was in his regular state of health according to the family. After he ate yesterday, patient started to have dysarthria and mouth drop. For that reason, he was brought to the hospital. Patient was found to have hyponatremia and blood pressure started declining. Patient underwent MRI, did not show any acute changes. Today went for another CT. Patient known to have hyponatremia, being maintained on salt tablet and Lasix since the CVA last year, Lasix of 20 mg and salt tablet of 1 g t.i.d. Upon presentation to the hospital, patient's sodium was 129. Past Medical History: 1. Hypertension. 2. Coronary artery disease, no CHF. 3. CVA, subdural hematoma, loss of memory. 4. Hyponatremia. Past Surgical History: 1. PICC tube placement and removal. 2. Craniotomy. Allergies: MEPERIDINE. Home Medications: breathing treatment, nitroglycerin patch, Flomax, Coumadin, carvedilol 3.125 b.i.d., Lasix 20 daily, salt tablet 1 g t.i.d. Family History: Positive for hypertension. Social History: Ex-smoker. Alcohol use. No drug abuse. Living with family. Review of Systems: Head and Neck: No red eye. No ear pain. Has facial drop. GI: No nausea, no vomiting. : No polyuria. Has urine retention. Admissions Rn: Not applicable. Respiratory: No shortness of breath. Cardiovascular: No chest pain. Endocrine: No polydipsia. Skin: No rash. Neuro: Has memory loss. Musculoskeletal: Generalized fatigue. Physical Examination: Vital Signs: Blood pressure 105/63, pulse of 80, afebrile. Patient had good urine output of 500. Chest: Clear to auscultation. Heart: S1, S2 regular. Abdomen: Soft, nontender. Extremities: No edema. Neuro: Alert, nonverbal. Laboratory Data: Sodium 129, potassium 3.6, bicarb 28, BUN 6, creatinine 0.9, calcium 9.4, magnesium 1.9. TSH 1.1. Cortisol level of 12. WBC 5.5, H and H 11.9/35.1, platelets 193. Assessment And Plan: 1. 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 I am going to resume salt tablet and Lasix for the patient. We will increase it to 2 g t.i.d. of the salt tablet and we will give the Lasix. 2. Hypertension, currently marginal low blood pressure. Discontinue carvedilol and will continue on the Lasix. 3. Altered mental status, as by primary. 4. Hypomagnesemia, hypokalemia. We will supplement. TATIANNA Voice ID: [id number] Report ID: [id number] NABEEL
[2019-06-19] MEDS ORDERED: NA CHLORIDE 0.9% 500 ML ONE (18:36)
[2019-06-20] MEDS: POTASSIUM CL 40 MEQ in NA CHLORIDE 0.9% 500 ML IV SCH (01:08)
[2019-06-20 05:48] LABS: Absolute Lymphocytes (CBC) 1.3 K/uL (0.7-4.9); Basophils % 0.8 % (0-1.3); Hematocrit 34.9 % (39.6-49.0); Lymphocytes % 26.9 % (15.3-44.8); MPV 7.9 fL (7.6-11.3); RBC Red Blood Cell Count 3.95 M/uL (4.33-5.43)
[2019-06-20] MEDS: LEVOTHYROXINE SOD 0.05 MG TABLET PO SCH (05:52)
[2019-06-20 05:59] LABS: Magnesium 2.1 mg/dL (1.8-2.4); Potassium 4.5 mmol/L (3.5-5.1)
--- NOTE | 2019-06-20 07:45 | P.PN ---
Subjective Date of Service: 06/20/19 Primary Care Provider: Dr. Marcus; Neurology-Dr. Carpio Chief Complaint: Confusion Subjective: Improving, Doing well Physical Examination - Vital Signs Temperature: 97.0 F Blood Pressure: 140/84 Pulse: 66 Respirations: 18 Pulse Ox (%): 96 - Physical Exam General: Alert, In no apparent distress, Cooperative HEENT: Atraumatic Neck: Supple Respiratory: Clear to auscultation bilaterally, Normal air movement Cardiovascular: Normal pulses, Regular rate/rhythm Gastrointestinal: Normal bowel sounds, Non-distended Neurological: Normal speech, Normal strength at 5/5 x4 extr, Normal tone - Studies Microbiology Data (last 24 hrs): 06/18/19 11:40 Clean Catch Urine [place] Count - Final BETWEEN 10,000 & 100,000 CFU/ML 06/18/19 11:40 Clean Catch Urine - Final Pseudomonas Aeruginosa 06/18/19 17:15 Blood - Blood Anaerobic Blood Culture - Final Medications List Reviewed: Yes Assessment & Plan Discharge Plan: Other (Inpatient rehab) Plan to discharge in: 24 Hours Physician Review Additional Text: Impression Acute encephalopathy likely related to UTI, urine culture positive for Pseudomonas Acute on chronic diastolic CHF Hypertension Chronic hyponatremia History of subdural hematomas 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 Patient will require IV antibiotic therapy due to resistance on urine culture. Will start IV cefepime 1 g twice daily. Patient will need 1 week of IV medication. Patient will require PICC line. Will discuss with patient and family. Will discuss with social sciences professor. Will start carvedilol but give parameters. Will start DVT prophylaxis-Lovenox as recommended by neurology. Will adjust IV Lasix to oral. Will discuss further with patient. Continue to work with physical therapy and occupational therapy. Patient and family in agreement for inpatient rehab. Anticipate discharge to inpatient rehab likely in the next day. Acute on chronic diastolic CHF: Will transition to oral Lasix. Hypertension: Restart home medication but hold if blood pressure systolic less than 140. Chronic hyponatremia: This has improved. Continue with nephrology recommendation. Patient on salt tablets. History of subdural hematomas: CT head and MRI head negative along with repeat CT head yesterday. Patient with no further confusion or aphasia. Will discuss further with Neurology. 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 Continue with speech recommendations at this time. GERD: Will continue the medication. Time Spent Managing Pts Care (In Minutes): 55
--- NOTE | 2019-06-20 07:49 | ECHO ---
HEIGHT: 5 ft 4 in WEIGHT: 150 lb 0.04 oz DATE OF STUDY: 06/19/[address]: Santy Martinez DO 2-DIMENSIONAL: YES M.MODE: YES DOPPLER: YES COLOR FLOW: YES TDS: YES PORTABLE: DEFINITY: BUBBLE STUDY: DIAGNOSIS: EVALUATE CONGESTIVE HEART FAILURE CARDIAC HISTORY: CATHERIZATION: NO SURGERY: NO PROSTHETIC VALVE: NO PACEMAKER: NO MEASUREMENTS (cm) DIASTOLIC (NORMALS) SYSTOLIC (NORMALS) IVSd 1.1 (0.6-1.2) LA Diam 4.0 (1.9-4.0) LVEF 59% LVIDd 4.4 (3.5-5.7) LVIDs 3.1 (2.0-3.5) %FS 31% LVPWd 1.2 (0.6-1.2) Ao Diam 3.3 (2.0-3.7) 2 DIMENSIONAL ASSESSMENT: RIGHT ATRIUM: NORMAL LEFT ATRIUM: DILATED RIGHT VENTRICLE: NORMAL LEFT VENTRICLE: LEFT VENTRICULAR HYPERTROPHY, MILD TRICUSPID VALVE: NORMAL MITRAL VALVE: NORMAL PULMONIC VALVE: NORMAL AORTIC VALVE: NORMAL PERICARDIAL EFFUSION: NONE AORTIC ROOT: NORMAL LEFT VENTRICULAR WALL MOTION: TECHNICALLY DIFFICULT STUDY. APEX NOT SEEN, OTHERWISE NORMAL. DOPPLER/COLOR FLOW: MILD MITRAL AND TRICUSPID REGURGITATION. NORMAL RIGHT VENTRICULAR SYSTOLIC PRESSURE. COMMENTS: NORMAL LEFT VENTRICULAR EJECTION FRACTION. LEFT VENTRICULAR HYPERTROPHY. DILATED LEFT ATRIUM. MILD MITRAL AND TRICUSPID REGURGITATION. TECHNOLOGIST: HEBERT HICKS
[2019-06-20] MEDS: KETOCONAZOLE CREAM 15 GM TUBE TOP SCH ×2 (08:36→20:43)
[2019-06-20] MEDS: PANTOPRAZOLE 40MG TABLET PO SCH (08:38)
[2019-06-20] MEDS: SODIUM CHLORIDE 1 GM TAB PO SCH ×3 (08:39→20:42)
[2019-06-20] MEDS: carvediloL 3.125 MG TAB PO SCH ×2 (08:39→20:42)
[2019-06-20] MEDS: ENOXAPARIN 40 MG/0.4 ML SQ SCH (08:40)
[2019-06-20] MEDS: FUROSEMIDE 20 MG TABLET PO SCH (08:42)
[2019-06-20] MEDS: CEFEPIME/SWI 1gm 10 ML IV SCH ×2 (08:42→20:43)
[2019-06-20] MEDS ORDERED: FUROSEMIDE 20 MG/ 2ML VIAL IV SCH (09:00)
[2019-06-20] MEDS ORDERED: CEFEPIME 1 GM/VIAL IV SCH (09:00)
--- NOTE | 2019-06-20 20:37 | PN ---
Date of Progress Note: 06/20/2019 Subjective: Patient was admitted with altered mental status, hyponatremia. Yesterday, we resumed hi s salt tablet and Lasix. The patient is more awake. Today, his sodium has been normalized. Physical Examination: Vital Signs: Blood pressure 126/84, pulse of 87. Patient had good urine output. Chest: Faint rales on the left side. Heart: S1, S2. Regular. Systolic murmur. Abdomen: Soft, nontender. Extremities: No edema. Laboratory Data: H and H 11.7/34.9. Sodium 134, potassium 4.5, bicarb 25, BUN 7, creatinine 1, calc ium 9.3, magnesium 2.1. Urine sodium 75, urine potassium 35, urine osmolality 315. Current Medications: 1.Cefepime. 2.Lovenox. 3.Carvedilol 3.125 b.i.d. 4.Lasix 20. 5.Salt tablet 2 g t.i.d. 6.Ketoconazole. Assessment And Plan: 1.Hyponatremia secondary to syndrome of inappropriate antidiuretic hormone secretion, secondary to c erebrovascular accident, intracranial bleed recover. Continue salt tablet and Lasix. 2.Hypertension. Continue current Lasix dose and carvedilol. 3.Altered mental status, back to baseline. 4.Urinary tract infection secondary to pseudomonas multidrug resistant, sensitive to cefepime and me ropenem and amikacin. We will place the patient on meropenem after discussed with Dr. Martinez and we will follow up. Currently on cefepime. 5.Hypokalemia. We will supplement. TATIANNA Voice ID: [id number] Report ID: [id number]
[2019-06-21 04:59] LABS: Absolute Lymphocytes (CBC) 1.2 K/uL (0.7-4.9); Basophils % 1.1 % (0-1.3); Hematocrit 32.8 % (39.6-49.0); Lymphocytes % 29.4 % (15.3-44.8); MPV 7.4 fL (7.6-11.3); RBC Red Blood Cell Count 3.69 M/uL (4.33-5.43)
[2019-06-21 05:18] LABS: Magnesium 1.8 mg/dL (1.8-2.4); Potassium 4.2 mmol/L (3.5-5.1)
[2019-06-21] MEDS: LEVOTHYROXINE SOD 0.05 MG TABLET PO SCH (06:40)
[2019-06-21] MEDS ORDERED: MAGNESIUM SULFATE 1 gm IVPB 1 GM/100 ML BAG IV ONE (08:00)
[2019-06-21] MEDS: FUROSEMIDE 20 MG TABLET PO SCH (08:06)
[2019-06-21] MEDS: PANTOPRAZOLE 40MG TABLET PO SCH (08:06)
[2019-06-21 08:07] VITALS: TEMP 97.1
[2019-06-21] MEDS: carvediloL 3.125 MG TAB PO SCH (08:07)
[2019-06-21] MEDS: CEFEPIME/SWI 1gm 10 ML IV SCH (08:08)
[2019-06-21] MEDS: ENOXAPARIN 40 MG/0.4 ML SQ SCH (08:08)
[2019-06-21] MEDS: SODIUM CHLORIDE 1 GM TAB PO SCH (08:09)
[2019-06-21] MEDS: KETOCONAZOLE CREAM 15 GM TUBE TOP SCH (08:10)
--- NOTE | 2019-06-21 09:24 | P.DS ---
Admission Date: 06/19/19 Discharge Date: 06/21/19 Primary Care Provider: Dr. Marcus; Neurology-Dr. Carpio Disposition: TRANSFER TO INPATIENT REHAB Discharge Condition: GOOD Reason for Admission: Confusion Consultations: Nephrology-Dr. Neal Neurology-Dr. Carpio Procedures: MRI Brain: FINDINGS: The examination is moderately motion degraded. 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 Small amount of chronic subdural also present along the left convexity measuring 4 mm. Postsurgical gliosis is seen in the left temporal region. Moderate T2 and FLAIR hyperintensity is present in the periventricular and deep white matter. No evidence of shift of midline structures. DWI is negative for acute CVA. Midline structures are normally formed. Mastoid air cells and paranasal sinuses are clear. IMPRESSION: Chronic subdural hematomas are suspected as detailed without midline shift. No acute CVA is demonstrated. Examination is moderately motion degraded. ECHO: Ejection fraction 59% LEFT VENTRICULAR WALL MOTION: TECHNICALLY DIFFICULT STUDY. APEX NOT SEEN, OTHERWISE NORMAL. DOPPLER/COLOR FLOW: MILD MITRAL AND TRICUSPID REGURGITATION. NORMAL RIGHT VENTRICULAR SYSTOLIC PRESSURE. COMMENTS: NORMAL LEFT VENTRICULAR EJECTION FRACTION. LEFT VENTRICULAR HYPERTROPHY. DILATED LEFT ATRIUM. MILD MITRAL AND TRICUSPID REGURGITATION. Barium Swallow: FINDINGS: Cineloop acquisitions: 22 Fluoro time: 5 minutes 1 second Laryngeal penetration: thin by large cup sip, cleared Pharyngeal residue: Mild to moderate with honey, puree and kevin cracker in the vallecular. Delayed swallow (1 sec). Mild esophageal stasis and retropulsion with chewable solids at the end of study. IMPRESSION: Modified barium swallow as summarized above and fully detailed on speech pathology report. 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 Family present at bedside. Family reports patient had been complaining of some dysuria recently. No significant nausea or vomiting noted. No abdominal pain noted. No fever noted. Today he was more confused than his baseline. Family reports that he has been retaining his urine. Patient came to the ER for further evaluation. In the ER patient was evaluated. Vital signs stable. White count 4.6, hemoglobin 12.8. Platelet count 180. Sodium 129, potassium 4.2. BUN of 5, creatinine 0.9 with a GFR greater than 90. Glucose 118. Urinalysis was positive for bacteria. X-ray shows possible pulmonary edema. CT head shows no acute ranges. Chronic changes noted. MRI brain shows no acute changes but chronic subdural hematomas noted. No midline shift noted. Patient was started on IV antibiotic therapy. Patient admitted for further evaluation and treatment. When I saw the patient ER, he appeared comfortable. He did not appear septic. Family at bedside. Hospital Course: Patient presented with acute encephalopathy related to UTI. Patient received IV antibiotic therapy. Patient has done well. MRI head and CT head was done to rule out acute stroke. Both were negative. A repeat CT scan the following day after admission was done due to some mild confusion, this was also negative for acute stroke. The patient has done well during the course of his stay. Urine culture was positive for Pseudomonas. This required IV antibiotic therapy due to resistance in the urine culture. PICC line was placed. At discharge patient will go to inpatient rehab to continue antibiotic therapy and physical therapy. At discharge he will continue with IV cefepime 1 g IV twice daily for a total of 1 week. Recommend to recheck urine culture after that time to monitor resolution. If negative then PICC line can be removed. Patient and family are in agreement with inpatient rehab transfer. Patient be transferred to rehab today. Patient with history of acute on chronic diastolic CHF. Patient required Lasix during the course of his stay. Echocardiogram shows normal ejection fraction. Patient likely with diastolic CHF. Patient also with chronic hyponatremia. Nephrology was consulted. Medications have been adjusted. Sodium tablet was increased. At discharge he will continue with salt tablet 2 g 3 times a day and Lasix 20 mg daily. Recommend to continue 1500 cc per day fluid restriction and low-salt diet. Recommend to monitor weight daily. If his weight increases by more than 5 lb further adjustment in medication can be done. Recommend to recheck lab-BMP in 1 week to monitor his sodium. Recommend follow up with nephrology in 1-2 weeks to follow up this hospitalization. Patient with hypertension. Patient currently takes carvedilol. Recommend to continue carvedilol 3.125 mg 1 pill twice daily. May need to hold blood pressure medication if systolic less than 120 due to risk of fall related to orthostatic hypotension. This will need to be further monitored and adjusted. Patient with history of subdural hematomas. As mentioned above CT head, MRI showed no acute changes. Chronic changes noted. This was discussed with his neurologist. Patient will continue with physical therapy at in inpatient rehab. Patient with history of dysphasia related to his prior CVA. Patient was reassessed. Some dysphagia noted. Speech therapy recommends a mechanical soft with ground meats. Other measures include sitting upright for at least 60 min prior to lying down, double swallow, small bites. Patient will continue with speech therapy in rehab. Patient has a PEG tube. If his dysphasia continues to improve patient may follow up with GI as an outpatient to consider removal. Patient with GERD. At discharge patient will continue with Protonix 40 mg daily. Vital Signs/Physical Exam: Temp Pulse Resp BP Pulse Ox 97.1 F 58 15 139/79 94 06/21/19 08:00 06/21/19 08:07 06/21/19 08:00 06/21/19 08:07 06/21/19 08:00 General: Alert, In no apparent distress, Cooperative HEENT: Other (Postsurgical changes to his head) Neck: Supple Respiratory: Clear to auscultation bilaterally, Normal air movement Cardiovascular: Normal pulses, Regular rate/rhythm Gastrointestinal: Normal bowel sounds, Soft and benign, Non-distended, Other ( Peg tube in place) Neurological: Normal speech, Normal strength at 5/5 x4 extr, Normal tone Laboratory Data at Discharge: WBC 4.2 K/uL (4.3-10.9) L 06/21/19 04:30 Hgb 11.1 g/dL (13.6-17.9) L 06/21/19 04:30 Hct 32.8 % (39.6-49.0) L 06/21/19 04:30 Plt Count 165 K/uL (152-406) 06/21/19 04:30 PT 12.9 SECONDS (9.5-12.5) H 06/18/19 11:05 INR 1.10 06/18/19 11:05 Sodium 133 mmol/L (136-145) L 06/21/19 04:30 Potassium 4.2 mmol/L (3.5-5.1) 06/21/19 04:30 BUN 7 mg/dL (7-18) 06/21/19 04:30 Creatinine 0.97 mg/dL (0.55-1.3) 06/21/19 04:30 Glucose 92 mg/dL (74-106) 06/21/19 04:30 Uric Acid 4.7 mg/dL (3.5-7.2) 06/19/19 09:12 Magnesium 1.8 mg/dL (1.8-2.4) 06/21/19 04:30 Total Bilirubin 0.7 mg/dL (0.2-1.0) 06/18/19 11:05 AST 16 U/L (15-37) 06/18/19 11:05 ALT 14 U/L (12-78) 06/18/19 11:05 Alkaline Phosphatase 83 U/L (45-117) 06/18/19 11:05 Triglycerides 68 mg/dL (<150) 06/19/19 03:58 Cholesterol 168 mg/dL (<200) 06/19/19 03:58 HDL Cholesterol 53 mg/dL (40-60) 06/19/19 03:58 Cholesterol/HDL Ratio 3.17 06/19/19 03:58 Lipase 68 U/L (73-393) L 06/18/19 11:05 Home Medications: Furosemide [Lasix] 1 tab PO DAILY 06/18/19 Levothyroxine [Synthroid*] 1 tab PO DAILY 06/19/19 Pantoprazole [Protonix Tab*] 40 mg PO ACB #30 tab 06/21/19 Sodium Chloride Tab [Sodium Chloride*] 2 gm PO TID #180 tab 06/21/19 carvediloL [Coreg*] 3.125 mg PO BID #60 tab 06/21/19 New Medications: carvediloL [Coreg*] 3.125 mg PO BID #60 tab Pantoprazole [Protonix Tab*] 40 mg PO ACB #30 tab Sodium Chloride Tab [Sodium Chloride*] 2 gm PO TID #180 tab Patient Discharge Instructions: 1. Patient be transferred to inpatient rehab to continue therapy. 2. Patient presented with acute encephalopathy related to UTI. Patient received IV antibiotic therapy. Patient has done well. MRI head and CT head was done to rule out acute stroke. Both were negative. A repeat CT scan the following day after admission was done due to some mild confusion, this was also negative for acute stroke. The patient has done well during the course of his stay. Urine culture was positive for Pseudomonas. This required IV antibiotic therapy due to resistance in the urine culture. PICC line was placed. At discharge patient will go to inpatient rehab to continue antibiotic therapy and physical therapy. At discharge he will continue with IV cefepime 1 g IV twice daily for a total of 1 week. Recommend to recheck urine culture after that time to monitor resolution. If negative then PICC line can be removed. Patient and family are in agreement with inpatient rehab transfer. Patient be transferred to rehab today. 3. Patient with history of acute on chronic diastolic CHF. Patient required Lasix during the course of his stay. Echocardiogram shows normal ejection fraction. Patient likely with diastolic CHF. Patient also with chronic hyponatremia. Nephrology was consulted. Medications have been adjusted. Sodium tablet was increased. At discharge he will continue with salt tablet 2 g 3 times a day and Lasix 20 mg daily. Recommend to continue 1500 cc per day fluid restriction and low-salt diet. Recommend to monitor weight daily. If his weight increases by more than 5 lb further adjustment in medication can be done. Recommend to recheck lab-BMP in 1 week to monitor his sodium. Recommend follow up with nephrology in 1-2 weeks to follow up this hospitalization. 4. Patient with hypertension. Patient currently takes carvedilol. Recommend to continue carvedilol 3.125 mg 1 pill twice daily. May need to hold blood pressure medication if systolic less than 120 due to risk of fall related to orthostatic hypotension. This will need to be further monitored and adjusted. 5. Patient with history of subdural hematomas. As mentioned above CT head, MRI showed no acute changes. Chronic changes noted. This was discussed with his neurologist. Patient will continue with physical therapy at in inpatient rehab. 6. Patient with history of dysphasia related to his prior CVA. Patient was reassessed. Some dysphagia noted. Speech therapy recommends a mechanical soft with ground meats. Other measures include sitting upright for at least 60 min prior to lying down, double swallow, small bites. Patient will continue with speech therapy in rehab. Patient has a PEG tube. If his dysphasia continues to improve patient may follow up with GI as an outpatient to consider removal. 7. Patient with GERD. At discharge patient will continue with Protonix 40 mg daily. Diet: Mechanical soft with ground meat. Continue speech recommendation Activity: Fall precautions Time spent managing pt's care (in minutes): 55
--- NOTE | 2019-06-21 09:30 | RAD REPORT ---
EXAM DESCRIPTION: RAD - Chest Single View - 06/21/2019 3:54 am CLINICAL HISTORY: PICC Placement COMPARISON: None. TECHNIQUE: AP Chest. FINDINGS: There is pulmonary vascular congestion. Small left pleural effusion. No edema or pneumotho rax. Heart is mildly enlarged. Right subclavian PICC line is visualized to the inferior aspect of the superior vena cava. Lower cervical fusion hardware is partially imaged. There may be a fracture through the mid cervical fixation plate. IMPRESSION: 1. Pulmonary vascular congestion. Small left pleural effusion. 2. Right subclavian PICC line is in the inferior aspect of the superior vena cava. No complicating fi nding. 2. Possible fracture of the cervical spine fixation plate. Electronically signed by: Yen Galvez DO 06/21/2019 3:44 AM MEDICAL UNIT SECRETARY Due to temporary technical issues with the PACS/Fluency reporting system, reports are being signed by the in house radiologist as a courtesy to ensure prompt reporting. The interpreting radiologist is f ully responsible for the content of the report.
[2019-06-21] MEDS ORDERED: FUROSEMIDE 20 MG/ 2ML VIAL IV ONE (11:37)
[2019-06-21 11:44] VITALS: O2SAT 95
[2019-06-21 11:46] VITALS: BP 152/92
--- NOTE | 2019-06-21 14:26 | PN ---
Date of Progress Note: 06/21/2019 Subjective: Patient was admitted with altered mental status, fall, found to have hyponatremia second juan luis to [facility]. Patient was started on salt tablet and Lasix. Sodium has been normalized. Physical Examination: Vital Signs: Blood pressure of 139/79, pulse of 58. Chest: Clear to auscultation. Heart: S1, S2, regular. Abdomen: Soft, nontender. Extremities: Plus edema. Laboratory Data: WBC 4.2, H and H 11.1/32.8, platelets of 165. Sodium 133, potassium 4.2, bicarb 28 , BUN 7, creatinine 0.9, calcium 9.3, magnesium 1.8. Cortisol of 12. TSH of 1.1. Medications: Current medications the patient is on include, Lasix 20 mg, salt tablet 2 g t.i.d., ket oconazole, levothyroxine. 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 Continue salt tabl et. We will increase Lasix to 40. 2.Hypertension, controlled, optimal. Continue current medication. 3.Edema, secondary to cardiac. Increase Lasix to 40. 4.Altered mental status, secondary to vascular dementia, recovered. 5.Hypokalemia, hypomagnesemia. We will follow up with results. We will follow up patient to janice from the Renal standpoint for discharge planning. Follow up in 2 weeks. TATIANNA Voice ID: [id number] Report ID: [id number]
== END 2019-06-21 11:50 | DRG 689 ==
LOC: ER 10:24 → ERHOLD 14:42 → 4TH 15:43 → OBSVTOIN 06-19 08:28
PROVIDERS: ADMIT Family Medicine; ATTEND Family Medicine
PROC: 02HV33Z Insertion of Infusion Device into Superior Vena Cava, Percutaneous Approach (ICD-10-PCS; principal; 2019-06-21)
DX: N39.0 Urinary tract infection, site not specified (principal); G92 Toxic encephalopathy; I50.33 Acute on chronic diastolic (congestive) heart failure; E22.2 Syndrome of inappropriate secretion of antidiuretic hormone; Z16.24 Resistance to multiple antibiotics; B96.5 Pseudomonas (aeruginosa) (mallei) (pseudomallei) as the cause of diseases classified elsewhere; I69.321 Dysphasia following cerebral infarction; K21.9 Gastro-esophageal reflux disease without esophagitis; I11.0 Hypertensive heart disease with heart failure; E87.6 Hypokalemia; E83.42 Hypomagnesemia
CPT/HCPCS: 36415; 36569; 70450; 70551; 71045; 74230; 80048; 80061; 80076; 81003; 81015; 82533; 83605; 83690; 83735; 83880; 83935; 84132; 84145; 84300; 84439; 84443; 84484; 84550; 85025; 85610; 87040; 87077; 87086; 87088; 87186; 92610; 92611; 93005; 93306; 96361; 96365; 97112; 97116; 97161; 97530; 99285; G0378; J0692; J0696; J1650; J1940; J3475; J7030; J7040

== ENCOUNTER 2019-06-20 10:27 | Inpatient (IN) | payer OTHER ==
--- NOTE | 2019-06-21 10:03 | R.PREADM ---
SCREENING DATE AND TIME 06/20/2019 10:38 (SQL SERVER ARCHITECT) ANTICIPATED REHAB ADMISSION DATE 06/22/2019 REFERRING FACILITY [facility] REFERRAL DATE AND TIME 06/20/2019 10:38 (SQL SERVER ARCHITECT) REFERRAL ROOM# 401 ACUTE ADMIT DATE 06/19/2019 Previous Rehabilitation(s): No. ACUTE TALENT SCOUT/DC PARKING LOT ATTENDANT Pauline Hammer ATTENDING PHYSICIAN TERESA REFERRING PHYSICIAN REHAB FACILITY [facility] CLINICAL LIAISON EKATERINA LARRY PHYSICIAN REVIEWER Dr. Bimal Carpio M.D. [facility]# [id number] [id number] NAME BETO SCHREIBER ADDRESS [address] [place] [address] [place]IP [address] DATE OF 1930 AGE 89 SSN# [id number] GENDER male MARITAL STATUS RACE white ADMIT FROM 02 - [facility] PRE-HOSPITAL LIVING SETTING 01 - Home (private home/apt. board/care, assisted living, residential, transitional living) HOME TYPE AND DETAILS Type of home: single family house # of levels in the residence: 1 # of steps within the residence: 0 # of steps to enter the residence: 0 PRE-HOSPITAL LIVING WITH Family/Relatives FAMILY SUPPORT Yes PRIMARY FAMILY CONTACT NAME IRMA SCHREIBER PRIMARY FAMILY CONTACT PHONE PHONE PRIMARY FAMILY CONTACT ON ADM.? no IS PRIMARY FAMILY CONTACT AUTH. REP.? no 1ST EMERGENCY CONTACT IRMA SCHREIBER 1ST CONTACT PHONE PHONE 1ST CONTACT ON ADM. no IS 1ST CONTACT AUTH. REP.? no PHONE 2ND CONTACT ON ADM.? no PATIENT EMPLOYMENT STATUS Retired (for age) PATIENT EMPLOYER No Employer PAYOR INFORMATION: 1ST PAYOR NAME Medicare 1ST PAYOR PHONE 1ST PAYOR INJURY/ILLNESS DUE TO ACCIDENT? No ANOTHER [employer] RESPONSIBLE? No PRIMARY REHAB/ACUTE DIAGNOSIS: Acute on Chronic CHF ACUTE ENCEPHALOPATHY RELATED TO UTI ONSET DATE 06/19/2019 REHAB IMPAIRMENT CATEGORY (ADEOLA): 20 Miscellaneous (Misc) does NOT meet 60% rule PRIMARY DIAGNOSIS-RELATED SURGERIES: CRANIOTOMY PICC TUBE PLACEMENT AND REMOVAL COMORBID REHAB/ACUTE DIAGNOSES: - Non-Tiered Hypothyroidism, unspecified (E03.9) CHF CAD - N/A Hypertension INTERVENTIONS: - Hypertension Fluid management Medications VS - CAD 02 sats Activity management Medications VS RISK FOR COMPLICATIONS: - Hypertension CVA Hypotension DC TIA - CAD CHF Cardiac Arrest DC Pain SUMMARY OF ACUTE HOSPITALIZATION: Pt. is a 89 yo Right-handed white male. On 06/19/2019 he was admitted to [facility] with diagnosis Acute on Chronic CHF. His impairment category is Debility 16 - Debility (16). Pre-morbidly, Pt. was independent/mod-I in Locomotion, Safety Awareness, Social Cognition, Balance, S phincter Control, Self-Care, Communication, and Endurance; and he had good Locomotion, Safety Awarene ss, Balance, Social Cognition, Transfers Control, Self-Care, Communication, Sphincter Control, and En durance. Currently, he has deficits of Balance, Social Cognition, Communication, and Transfers Control. Pt. is now referred to [facility] for acute in-patient rehabilitation in order to maximize patient's functional independence in activities of daily living, strength, ROM, and mobi lity. Patient has realistic goal of being discharged at assistance level 6-Amadou to reside at Home with Fam phillip/Relatives. Beto Schreiber is a 89 year old man who lives in a single garcia house independently with no stairs to enter his home. He was independently living at home with family assistants. This is an unfortunate gentleman with significant past medical history. 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 Patient has been admitted at [facility] and is hemodynamically stable with relatively stable labs. He is now medically stable but in need of 24 hour nursing, doctor supervision SPT). The patient is reasonably expected to participate in 3 hours of therapy a day/15 hours per week and receive care with intensive interdisciplinary approach. PAST MEDICAL HISTORY HYPERTENSION HYPOTHYROIDISM CHF CAD PAST SURGICAL HISTORY: CRANIOTOMY PEG TUBE PLACEMENT MEDICATION ALLERGIES: No Known Drug Allergies (NKDA) ENVIRONMENTAL ALLERGIES: None Known - Substance Allergies None Known - Other Allergies None Known CODE STATUS: Full code WEIGHT/HEIGHT/BMI: WEIGHT 150 lbs HEIGHT 5'4 BMI 25.7 DIET: - Diet Type Regular - Diet - Solid Texture Mechanical Soft - Diet - Liquid Texture Thin - Tube Feed N/A REVIEW OF SYSTEMS: - Gen Alert and awake Lying in bed No apparent distress Oriented to: person, time, and place - Vital Signs Temperature: 97.0 F Resp: 18 Pulse: 66 Resp: 96 Vital signs stable, afebrile - CVS RRR VITAL SIGNS Temperature: 97.0 SBP/DBP: 140/84 Pulse: 66 Resp: 18 Vital signs stable, afebrile MEDICATIONS/TREATMENT: Other- See attached MAR (Medication Administration Record). CURRENT SPHINCTER CONTROL: Pre-hospital bladder status: continent # of bladder accidents in the last 7 days prior to screenin Pre-hospital bowel status: continent # of bowel accidents in the last 7 days prior to screenin Last Bowel Movement Date: CURRENT LOCOMOTION STATUS: distance walked 120 feet DETAILED CURRENT FUNCTIONAL STATUS: - Bladder accident frequency: Ind - No accidents in the past 7 days - Bowel accident frequency: Ind - No accidents in the past 7 days - Walking score based on distance walked: 0(N/A) score based on distance walked: 2(5149ft) - Wheelchair score based on distance traveled: 0(N/A) QI SCORES: - Self-Care A. Eating 04-Supervision or touching assistance B. Oral hygiene 05-Setup or clean-up assistance C. Toileting hygiene 02-Substantial/maximal assistance E. Shower/bathe self 03-Partial/moderate assistance F. Upper body dressing 03-Partial/moderate assistance G. Lower body dressing 02-Substantial/maximal assistance H. Putting on/taking off footwear 88-Not attempted due to medical condition or safety concerns - Mobility K. Walk 150 feet 03-Partial/moderate assistance B. Sit to lying 03-Partial/moderate assistance C. Lying to sitting on side of bed 03-Partial/moderate assistance D. Sit to stand 03-Partial/moderate assistance E. Chair/lvb-vx-eqnel transfer 03-Partial/moderate assistance F. Toilet transfer 03-Partial/moderate assistance G. Car transfer 88-Not attempted due to medical condition or safety concerns I. Walk 10 feet 03-Partial/moderate assistance J. Walk 50 feet with two turns 03-Partial/moderate assistance L. Walking 10 feet on uneven surfaces 88-Not attempted due to medical condition or safety concerns M. 1 step (curb) 88-Not attempted due to medical condition or safety concerns N. 4 steps 88-Not attempted due to medical condition or safety concerns O. 12 steps 03-Partial/moderate assistance P. Picking up object 03-Partial/moderate assistance R. Wheel 50 feet with two turns 88-Not attempted due to medical condition or safety concerns S. Wheel 150 feet 03-Partial/moderate assistance - Bladder and Bowel Bladder continence 0-Always continent Bowel continence 0-Always continent - Endurance Fair - Balance Fair - Safety Awareness Fair CURRENT FUNC. DEFICITS: Self-Care, Mobility, Endurance, Balance, and Safety Awareness CURRENT / PREVIOUS ASSISTIVE DEVICES: [facility] Shower Chair Standard Walker Wheelchair HISTORY OF FALLS. HAS THE PATIENT HAD TWO OR MORE FALLS IN THE PAST YEAR OR ANY FALL WITH INJURY IN T HE PAST YEAR?: No PRIOR SURGERY. DID THE PATIENT HAVE MAJOR SURGERY DURING THE 100 DAYS PRIOR TO ADMISSION?: No THERAPY NOTES FROM ACUTE CARE: Attached. SPECIAL NEEDS: - Safety Concerns Skin breakdown precautions needed due to skin breakdown risk PATIENT NEEDS ACTIVE AND ONGOING THERAPEUTIC INTERVENTION OF MULTIPLE THERAPY DISCIPLINES, INCLUDING: - Dietary and Nutrition Adequate Nutrition. Nutritional Education. Nutritional Supplements. - Speech Therapy Dysphagia Therapy. PATIENT NEEDS CLOSE MEDICAL SUPERVISION BY A REHABILITATION PHYSICIAN FOR: Coordination of Treatment Team Medical and Co-Morbidity Management PATIENT REQUIRES 24X7 REHAB NURSING FOR MEDICAL AND FUNCTIONAL MGT. OF THE FOLLOWING DEFICITS: Disease Management Medication Management Patient/Family Education Providing Safe Environment PATIENT REQUIRES INTENSIVE, COORDINATED INTERDISCIPLINARY APPROACH TO REHAB: Arranging Home Equipment/Services Discharge Planning Family Intervention/Training Air Table Operator/Case Management PATIENT REHAB POTENTIAL: Onur SCHREIBER is able and expected to receive 3 hours of individualized therapy daily on at least 5 of inocente ry 7 days Onur SCHREIBER's prognosis for significant practical improvement within a reasonable period of time appears Fair Expected level of measurable improvement will be of a practical value to Onur SCHREIBER's functional capaci ty or adaptations to impairments Has a viable Discharge Plan Medically appropriate; condition is sufficiently stable to participate in intensive rehab program DISCHARGE PLAN: - Estimated Length of Stay (days) 13. - Consensus on plan Discharge plan has been discussed with primary caregiver. Patient/Family is in agreement with the corinne n. Primary caregiver is in agreement with the plan. - Patient/Family Goals Return home with assistance. - Planned Living Setting Upon Discharge Home, to live with Family/Relatives. Transitional Living. RECOMMENDED CARE LEVEL: IRF RECOMMENDATION DETAILS: Recommended Admission to Comprehensive Rehabilitation Program to Increase Functional [place] SCREENER'S COMPLETENESS CONFIRMATION: - Screening Confirmation The patient data collection on this preadmission screening form is finished PHYSICIANS REVIEW AND ADMISSION DETERMINATION Admit - Based on my review of the Pre-Admission Screening results, in my medical judgment and experie nce, I concur with the findings and recommend admission to [facility], as this patient requires an IRF level of care. SIGNATURE PANEL: Clinical Liaison - [electronically] signed by Linda Laughlin on 06/20/2019 at 12:13 (SQL SERVER ARCHITECT) Clinical Liaison - [electronically] signed by Ekaterina Larry on 06/20/2019 at 12:32 (SQL SERVER ARCHITECT) Physician Reviewer - [electronically] signed by Dr. Bimal Carpio M.D. on 06/21/2019 at 10:02 (SQL SERVER ARCHITECT )
--- OUTSIDE RECORDS SUMMARY | 2019-06-21 12:21 | XMS REPORT ---
:1930 [facility] Address [address] [place] [address] Care Team Providers Name Role Phone Unavailable [...] 19:32:00 14:39:00 2019-03-28 2019-03-28 Inpatient E [facility] [id number] 22:05:00 20:20:00 2019-03-28 2019-03-28 Emergency E MHBL [id number] 15:21:00 15:21:00 2019-03-09 2019-03-06 Inpatient E [facility] [id number] 11:09:00 20:28:00 2019-02-14 2019-02-14 Outpatient [facility] RIC [id number] 18:48:00 18:48:00 2019-02-14 2019-02-14 Inpatient E [facility] MH [id number] 18:06:00 17:02:00
[2019-06-21] MEDS: SODIUM CHLORIDE 1 GM TAB PO SCH ×2 (14:30→21:08)
[2019-06-21] MEDS: carvediloL 3.125 MG TAB PO SCH (17:27)
[2019-06-21] MEDS: KETOCONAZOLE CREAM 15 GM TUBE TOP SCH (20:00)
--- NOTE | 2019-06-21 20:02 | R.HP ---
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 board/care, assisted living, correction, transitional living) PRE-HOSPITAL LIVING WITH Family/Relatives ENCOUNTER PHYSICIAN: Dr. Bimal Carpio M.D. 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 is a 89 yo Right-handed white male. On 06/19/2019 he was admitted to [facility] with diagnosis Acute on Chronic CHF. His impairment category is Debility 16 - Debility (16). Pre-morbidly, Pt. was independent/mod-I in Locomotion, Safety Awareness, Social Cognition, Balance, S phincter Control, Self-Care, Communication, and Endurance; and he had good Locomotion, Safety Awarene ss, Balance, Social Cognition, Transfers Control, Self-Care, Communication, Sphincter Control, and En durance. Currently, he has deficits of Balance, Social Cognition, Communication, and Transfers Control. Pt. is now referred to [facility] for acute in-patient rehabilitation in order to maximize patient's functional independence in activities of daily living, strength, ROM, and mobi lity. Patient has realistic goal of being discharged at assistance level 6-Amadou to reside at Home with Fam phillip/Relatives. Beto Montana is a 89 year old man who lives in a single garcia house independently with no stairs to enter his home. He was independently living at home with family assistants. This is an unfortunate gentleman with significant past medical history. 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 Patient has been admitted at [facility] and is hemodynamically stable with relatively stable labs. He is now medically stable but in need of 24 hour nursing, doctor supervision SPT). The patient is reasonably expected to participate in 3 hours of therapy a day/15 hours per week and receive care with intensive interdisciplinary approach. MEDICATION ALLERGIES: No Known Drug Allergies (NKDA) ENVIRONMENTAL ALLERGIES: None Known - Substance Allergies None Known - Other Allergies None Known PAST MEDICAL HISTORY: HYPERTENSION HYPOTHYROIDISM CHF CAD PAST SURGICAL HISTORY: CRANIOTOMY PEG TUBE PLACEMENT FAMILY HISTORY: Family history is not contributory. SOCIAL HISTORY: - Home Living Family/Relatives REVIEW OF SYSTEMS: - Gen No Chills Fatigue No Fever - Eyes No Double Vision No itchiness - ENMT Difficulty Swallowing - CVS No Chest Discomfort No Chest Pain Fatigue No Weight Gain - Resp No Cough Shortness of Breath - GI Continent No Abdominal Pain No Constipation No Diarrhea - Continent No Kidney Pain No Painful Urination No Urinary Urgency - MSK No Joint Pain Muscle Cramps Stiffness - Skin No Itching No Rash No Suspicious Lesions - Neuro Coordination Difficulty No Difficulty with Concentration No Memory Loss No Seizures Weakness - Psych No Anxiety No Depression No HIV Exposure No Persistent Infections No Seasonal Allergies - Endo No Cold/Heat Intolerance No Excessive Hunger No Excessive Thirst No Excessive Urination PHYSICAL EXAM - Gen Alert and awake Lying in bed No apparent distress Oriented to: person, time, and place - Skin Left head craniotomy site is intact Normacephalic Scalp surgical sites intact - Eyes No abnormalities - ENMT No abnormalities - Neck No abnormalities No cervical adenopathy - CVS RRR - Chest No abnormalities - Resp Decreased breath sounds in both lower lobes - Abd Soft - GI Non distended Deferred - No abnormalities - Ext No significant edema - MSK 4+/5 weakness in right upper and lower extremity - Neuro 4/5 strength right upper and lower extremities. - Psych Mild depression. VITAL SIGNS Temperature: 97.0 SBP/DBP: 140/84 Pulse: 66 Resp: 18 NURSING: - Shower allowing shower ACTIVITIES OOB only with supervision QI SCORES: - Self-Care A. Eating 04-Supervision or touching assistance B. Oral hygiene 05-Setup or clean-up assistance C. Toileting hygiene 02-Substantial/maximal assistance E. Shower/bathe self 03-Partial/moderate assistance F. Upper body dressing 03-Partial/moderate assistance G. Lower body dressing 02-Substantial/maximal assistance H. Putting on/taking off footwear 88-Not attempted due to medical condition or safety concerns - Mobility K. Walk 150 feet 03-Partial/moderate assistance B. Sit to lying 03-Partial/moderate assistance C. Lying to sitting on side of bed 03-Partial/moderate assistance D. Sit to stand 03-Partial/moderate assistance E. Chair/uci-nc-fxsrp transfer 03-Partial/moderate assistance F. Toilet transfer 03-Partial/moderate assistance G. Car transfer 88-Not attempted due to medical condition or safety concerns I. Walk 10 feet 03-Partial/moderate assistance J. Walk 50 feet with two turns 03-Partial/moderate assistance L. Walking 10 feet on uneven surfaces 88-Not attempted due to medical condition or safety concerns M. 1 step (curb) 88-Not attempted due to medical condition or safety concerns N. 4 steps 88-Not attempted due to medical condition or safety concerns O. 12 steps 03-Partial/moderate assistance P. Picking up object 03-Partial/moderate assistance R. Wheel 50 feet with two turns 88-Not attempted due to medical condition or safety concerns S. Wheel 150 feet 03-Partial/moderate assistance - Bladder and Bowel Bladder continence 0-Always continent Bowel continence 0-Always continent - Endurance Fair - Balance Fair - Safety Awareness Fair CURRENT FUNC. DEFICITS: Self-Care, Mobility, Endurance, Balance, and Safety Awareness MEDICATIONS: - Other See attached MAR (Medication Administration Record) ASSESSMENT: Pt. is a 89 yo Right-handed white male.On 06/19/2019 he was admitted to [facility] with diagnosis Acute on Chronic CHF.His impairment category is Debility 16 - Debility (16).Pre-morbidly, Pt. was independent/mod-I in Locomotion, Safety Awareness, Social Cognition, Balance, Sphincter Contr ol, Self-Care, Communication, and Endurance; and he had good Locomotion, Safety Awareness, Balance, S ocial Cognition, Transfers Control, Self-Care, Communication, Sphincter Control, and Endurance.Curren tly, he has deficits of Balance, Social Cognition, Communication, and Transfers Control.Pt. is now re ferred to [facility] for acute in-patient rehabilitation in order to maximize patient's functional independence in activities of daily living, strength, ROM, and mobility.- Rehab Goal Patient has realistic goal of being discharged at assistance level 6-Amadou to reside at Home with Fam phillip/Relatives. Beto Montana is a 89 year old man who lives in a single garcia house independently with no stairs to enter his home. He was independently living at home with family assistants. This is an unfortunate gentleman with significant past medical history. 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 Patient has been admitted at [facility] and is hemodynamically stable with relatively stable labs. He is now medically stable but in need of 24 hour nursing, doctor supervision SPT). The patient is reasonably expected to participate in 3 hours of therapy a day/15 hours per week and receive care with intensive interdisciplinary approach.REHAB PLAN: - Physical Therapy Gait dysfunction - to improve, our physical therapists will perform initial evaluation of pt's status upon admission and devise an individualized program for Gait Training, and Wheel Chair mobility Inability to transfer - to improve, our physical therapists will perform initial evaluation of pt's s tatus upon admission and devise an individualized program for Bed mobility Need for home safety evaluation - to improve, our physical therapists will perform initial evaluation of pt's status upon admission and devise an individualized program for Home Evaluation Need in caregiver upon discharge - to improve, our physical therapists will perform initial evaluatio n of pt's status upon admission and devise an individualized program for Caregiver Training Edema - to improve, our physical therapists will perform initial evaluation of pt's status upon admi ssion and devise an individualized program for Elevation Training, and Lymphedema Therapy New precaution - to improve, our physical therapists will perform initial evaluation of pt's status u delfina admission and devise an individualized program for Patient precaution education Poor balance - to improve, our physical therapists will perform initial evaluation of pt's status upo n admission and devise an individualized program for Balance Training Weakness - to improve, our physical therapists will perform initial evaluation of pt's status upon ad mission and devise an individualized program for Aquatic Therapy, Neuromuscular Reeducation, and Stre ngthening Achieving independence - to improve, our physical therapists will perform initial evaluation of pt's status upon admission and devise an individualized program for Community Reintegration Activities - Occupational Therapy Cognitive deficits - to improve, our occupation therapists will perform initial evaluation of pt's st atus upon admission and devise an individualized program for Cognition - orientation Need for care transition mgr - to improve, our occupation therapists will perform initial evaluation of pt's s tatus upon admission and devise an individualized program for Caregiver Training Weakness - to improve, our occupation therapists will perform initial evaluation of pt's status upon admission and devise an individualized program for Aquatic Therapy, Balance, Endurance, UE ROM, and U E strengthening MEDICAL PLAN: - Diet Type Start Regular - Diet - Liquid Texture Start Thin - Tube Feed Start N/A - Other See attached MAR (Medication Administration Record) - Diet - Solid Texture Start Regular Start Mechanical Soft - Shower shower DISCHARGE PLAN: - Estimated Length of Stay (days) 13. - Consensus on plan Discharge plan has been discussed with primary caregiver. Patient/Family is in agreement with the corinne n. Primary caregiver is in agreement with the plan. - Patient/Family Goals Return home with assistance. - Planned Living Setting Upon Discharge Home, to live with Family/Relatives. Transitional Living. 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
--- NOTE | 2019-06-21 20:08 | PAPE ---
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 Bimal Carpio M.D. 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 PATIENT NEEDS CLOSE MEDICAL SUPERVISION BY A REHABILITATION PHYSICIAN FOR: Coordination of Treatment Team Medical and Co-Morbidity Management PATIENT REQUIRES 24X7 REHAB NURSING FOR MEDICAL AND FUNCTIONAL MGT. OF THE FOLLOWING DEFICITS: Disease Management Medication Management Patient/Family Education Providing Safe Environment PATIENT REQUIRES INTENSIVE, COORDINATED INTERDISCIPLINARY APPROACH TO REHAB: Arranging Home Equipment/Services Discharge Planning Family Intervention/Training Logistics Director/Case Management LIST OF IDENTIFIED AND POTENTIAL PROBLEMS: Alteration in leisure activities Bladder, Incontinence Blood Pressure, Hypertension/hypotension Issues Bowel, Incontinence Fluid volume overload related to Congestive Heart Failure (CHF) Infection, Actual or Potential Mobility Impaired Pain, Alteration in Comfort Self Care Deficit Skin Integrity, Actual or Potential Urinary Tract Infection (UTI), Actual or Potential RISK FOR COMPLICATIONS - Hypertension CVA. Hypotension. WA. TIA. - CAD CHF. Cardiac Arrest. WA. Pain. INTERVENTIONS - Hypertension - CAD 02 sats. Activity management. Medications. VS. PATIENT COULD BE AT RISK FOR COMPLICATIONS FROM ADVERSE MEDICAL CONDITIONS DUE TO HIS/HER COMORBIDITI ES AND THE RIGORS OF THE INTENSIVE REHABILLITATION PROGRAM. METHODS OR INTERVENTIONS TO AVOID COMPLIC ATIONS INCLUDE: - Infection Clinical staff to assess and manage the signs and symptoms of infection including fever, redness, war mth, etc. - Urinary Tract Infection - Falls Patient will be evaluated for Fall Precautions and will be placed on Fall Precautions as indicated pe r protocol. - Skin Breakdown Nursing will assess skin daily using assessment tool and will place on Skin Breakdown Precautions as indicated per protocol. - Pain Clinical staff may employ non-medication methods such as massage, distraction, decrease stimulus, etc . as needed. Clinical staff will assess patient's pain level every shift per protocol to assess and e nsure pain management effectiveness. Medications will be given and the pain level re-assessed. PRELIMINARY PLAN OF CARE: - Physical Therapy Patient needs Physical Therapy for a daily minimum of 1.5 hours at least 5 out of 7 days, to improve: Mobility, Strengthening, Transfers, Stretching, ROM, Endurance, Ability to manage stairs, Gait, and Balance. - Speech Therapy Patient needs Speech Therapy for a daily minimum of 0.5 hours at least 5 out of 7 days, to improve: S wallowing, Cognition, Language Skills, and Compensatory Strategies. - Rehabilitation Nursing Patient requires 24x7 Rehabilitation Nursing for: Pain Issues, Identifying and preventing risk factor s, Monitoring and reporting current medical conditions, Assisting with ambulation and transfer, Monica ting with all ADL-s, Teaching patients about disease process and medications, Family teaching, Provid ing safe environment, Bowel and Bladder Issues, Skin Integrity, and Medication Management. Patient needs Logistics Director and/or Case Management for: Discharge Planning, Arranging Home Equipmen t or Services, and Family Interventions. - Dietary and Nutrition Services Patient needs Dietary and Nutrition Services for: Adequate Nutrition, Nutritional Supplements, and Nu tritional Education. - Occupational Therapy Patient needs Occupational Therapy for a daily minimum of 1.5 hours at least 5 out of 7 days, to impr ove Activities of Daily Living, including: Eating, Grooming, Bathing, Dressing, Toileting, Toilet Tra nsfers, Community Reintegration, Higher functional activities, Adaptive Equipment, Splinting, Househo ld Tasks, and Other activities as determined. QI SCORES: - Self-Care A. Eating 04-Supervision or touching assistance B. Oral hygiene 05-Setup or clean-up assistance C. Toileting hygiene 02-Substantial/maximal assistance E. Shower/bathe self 03-Partial/moderate assistance F. Upper body dressing 03-Partial/moderate assistance G. Lower body dressing 02-Substantial/maximal assistance H. Putting on/taking off footwear 88-Not attempted due to medical condition or safety concerns - Mobility K. Walk 150 feet 03-Partial/moderate assistance B. Sit to lying 03-Partial/moderate assistance C. Lying to sitting on side of bed 03-Partial/moderate assistance D. Sit to stand 03-Partial/moderate assistance E. Chair/mpf-ck-ukunq transfer 03-Partial/moderate assistance F. Toilet transfer 03-Partial/moderate assistance G. Car transfer 88-Not attempted due to medical condition or safety concerns I. Walk 10 feet 03-Partial/moderate assistance J. Walk 50 feet with two turns 03-Partial/moderate assistance L. Walking 10 feet on uneven surfaces 88-Not attempted due to medical condition or safety concerns M. 1 step (curb) 88-Not attempted due to medical condition or safety concerns N. 4 steps 88-Not attempted due to medical condition or safety concerns O. 12 steps 03-Partial/moderate assistance P. Picking up object 03-Partial/moderate assistance R. Wheel 50 feet with two turns 88-Not attempted due to medical condition or safety concerns S. Wheel 150 feet 03-Partial/moderate assistance - Bladder and Bowel Bladder continence 0-Always continent Bowel continence 0-Always continent - Endurance Fair - Balance Fair - Safety Awareness Fair POTENTIAL FUNCTIONAL GOALS FOR PATIENT TO ACHIEVE BY DISCHARGE: - Safety Precaution Patient will remain free from falls or injury at time of discharge. - Bed Mobility Patient will perform bed mobility at 4-Peace level of assistance. - Transfers Patient will complete transfers from bed to chair at 4-Peace level of assistance. - Mobility Patient will ambulate 150 ft with 4-Peace level of assistance with RW. PATIENT REHAB POTENTIAL Onur MONTANA is able and expected to receive 3 hours of individualized therapy daily on at least 5 of inocente ry 7 days Onur MONTANA's prognosis for significant practical improvement within a reasonable period of time appears Fair Expected level of measurable improvement will be of a practical value to Onur MONTANA's functional capaci ty or adaptations to impairments Has a viable Discharge Plan Medically appropriate; condition is sufficiently stable to participate in intensive rehab program DISCHARGE PLAN: - Estimated Length of Stay (days) 13. - Consensus on plan Discharge plan has been discussed with primary caregiver. Patient/Family is in agreement with the corinne n. Primary caregiver is in agreement with the plan. - Patient/Family Goals Return home with assistance. - Planned Living Setting Upon Discharge Home, to live with Family/Relatives. Transitional Living. CONCLUSION ON REHABILITATION NECESSITY: I have evaluated patient's pre-admission functional status and, comparing it to the patient's post-ad mission functional status now, I conclude that the pre-admission assessment was accurate. Patient's c ondition on admission supports the medical necessity of admission to IR[facility]. It is safe to proceed with patient's therapy program. 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
[2019-06-21] MEDS: CEFEPIME/SWI 1gm 10 ML IV SCH (20:51)
[2019-06-21] MEDS ORDERED: CEFEPIME 1 GM/10 ML SYR IV SCH (21:00)
[2019-06-22] MEDS: carvediloL 3.125 MG TAB PO SCH ×2 (05:19→17:33)
[2019-06-22] MEDS: FUROSEMIDE 20 MG TABLET PO SCH (05:19)
[2019-06-22] MEDS ORDERED: PANTOPRAZOLE 40MG TABLET PO SCH (06:30)
[2019-06-22] MEDS: LEVOTHYROXINE SOD 0.05 MG TABLET PO SCH (06:42)
[2019-06-22] MEDS: ENOXAPARIN 40 MG/0.4 ML SQ SCH (06:43)
[2019-06-22] MEDS: CEFEPIME/SWI 1gm 10 ML IV SCH ×2 (06:45→22:33)
[2019-06-22 07:01] LABS: Albumin 2.9 g/dL (3.4-5.0); Potassium 3.9 mmol/L (3.5-5.1); Prealbumin 13.4 mg/dL (20-40)
[2019-06-22 07:33] LABS: Basophils % 0.7 % (0-1.3); Hematocrit 36.3 % (39.6-49.0); Lymphocytes % 26.5 % (15.3-44.8); MPV 7.9 fL (7.6-11.3); RBC Red Blood Cell Count 4.12 M/uL (4.33-5.43)
[2019-06-22] MEDS ORDERED: FUROSEMIDE 20 MG TABLET PO SCH (08:00)
[2019-06-22] MEDS: PROMOD 30 ML DOSE PO SCH ×2 (09:36→22:34)
[2019-06-22] MEDS: SODIUM CHLORIDE 1 GM TAB PO SCH ×3 (09:36→22:33)
[2019-06-22] MEDS: KETOCONAZOLE CREAM 15 GM TUBE TOP SCH (09:38)
--- NOTE | 2019-06-22 10:04 | P.RH.PN ---
Estimated Length of Stay: 14 Expected Discharge Date: 07/04/19 Discharge Disposition Plan: Home Family Support: Yes Prison Goal: Mobility, Transfers, Self Care Vital Signs: Last Vital Signs Temp 96.8 F 06/22/19 09:28 Pulse 60 06/22/19 09:28 Resp 16 06/22/19 09:28 BP 134/78 06/22/19 09:28 Pulse Ox 95 06/22/19 09:28 Laboratory: Laboratory Last Values WBC 3.9 K/uL (4.3-10.9) L 06/22/19 07:16 RBC 4.12 M/uL (4.33-5.43) L 06/22/19 07:16 Hgb 12.0 g/dL (13.6-17.9) L 06/22/19 07:16 Hct 36.3 % (39.6-49.0) L 06/22/19 07:16 MCV 88.1 fL (80-100) 06/22/19 07:16 MCH 29.1 pg (27.0-35.0) 06/22/19 07:16 MCHC 33.1 g/dL (32.0-36.0) 06/22/19 07:16 RDW 14.9 % (12.1-15.2) 06/22/19 07:16 Plt Count 161 K/uL (152-406) 06/22/19 07:16 MPV 7.9 fL (7.6-11.3) 06/22/19 07:16 Neutrophils % 56.0 % (41.7-73.7) 06/22/19 07:16 Lymphocytes % 26.5 % (15.3-44.8) 06/22/19 07:16 Monocytes % 13.0 % (3.3-12.3) H 06/22/19 07:16 Eosinophils % 3.8 % (0-4.4) 06/22/19 07:16 Basophils % 0.7 % (0-1.3) 06/22/19 07:16 Absolute Neutrophils 2.2 K/uL (1.8-8.0) 06/22/19 07:16 Absolute Lymphocytes 1.0 K/uL (0.7-4.9) 06/22/19 07:16 Absolute Monocytes 0.5 K/uL (0.1-1.3) 06/22/19 07:16 Absolute Eosinophils 0.1 K/uL (0-0.5) 06/22/19 07:16 Absolute Basophils 0.0 K/uL (0-0.5) 06/22/19 07:16 Sodium 135 mmol/L (136-145) L 06/22/19 06:15 Potassium 3.9 mmol/L (3.5-5.1) 06/22/19 06:15 Chloride 100 mmol/L (98-107) 06/22/19 06:15 Carbon Dioxide 28 mmol/L (21-32) 06/22/19 06:15 BUN 8 mg/dL (7-18) 06/22/19 06:15 Creatinine 0.97 mg/dL (0.55-1.3) 06/22/19 06:15 Estimated GFR 89 mL/min (=/>90) L 06/22/19 06:15 Glucose 95 mg/dL (74-106) 06/22/19 06:15 Calcium 9.5 mg/dL (8.5-10.1) 06/22/19 06:15 Magnesium 2.0 mg/dL (1.8-2.4) 06/22/19 06:15 Albumin 2.9 g/dL (3.4-5.0) L 06/22/19 06:15 Prealbumin 13.4 mg/dL (20-40) L 06/22/19 06:15 Weight: 165 lb 11.2 oz Wound Present: No Closed Surgical Incision Present: No Physician Update: Labs reviewed and are stable. He is on mechanical soft diet. He walked 80' and transfered with contact guard assistance. Medical Issues: Patient is incontinent daily with bladder and always continent with bowel. UTI - Patient is taking Cefepime 1 gm Q12H IVPB for total of 7 days Summary: Patient's care plan and penitentiary goals have been reviewed and revised as necessary. Please see the Rehabilitation Signature page for all necessary signatures.
[2019-06-22] MEDS ORDERED: DOCUSATE NA/SENNA CONC 1 TAB PO PRN (11:07)
[2019-06-22] MEDS: ZINC OXIDE 20% OINTMENT 60gm TOP SCH (20:00)
--- NOTE | 2019-06-23 02:17 | FAST ---
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 Bimal Carpio M.D. ADMISSION DIAGNOSIS: - Debility 16 - Debility (16) Acute on Chronic CHF. ACUTE ENCEPHALOPATHY RELATED TO UTI. EATING: Not assessed/no information CODE: - ORAL HYGIENE: Not assessed/no information CODE: - TOILETING HYGIENE: TOILETING HYGIENE - STEP 1: Does the patient complete the activity by him/herself with no assistance (physical, verbal/nonverbal cueing, setup/clean-up)? No. TOILETING HYGIENE - STEP 2: Does the patient need only setup/clean-up assistance from one helper? No. TOILETING HYGIENE - STEP 3: Does the patient need only verbal/nonverbal cueing or touching/steadying/contact guard assistance fro m one helper? No. TOILETING HYGIENE - STEP 4: Does the patient need physical assistance - for example lifting or trunk support from one helper - wi th the helper providing less than half of the effort? Yes. 1. [id number] ADMISSION PERFORMANCE: Partial/moderate assistance CODE: 03 BATHING: Not assessed/no information CODE: - DRESSING - UPPER BODY: Not assessed/no information CODE: - DRESSING - LOWER BODY: Not assessed/no information CODE: - PUTTING ON/TAKING OFF FOOTWEAR: Not assessed/no information CODE: - ROLL LEFT AND RIGHT: ROLL LEFT AND RIGHT - STEP 1: Does the patient complete the activity by him/herself with no assistance (physical, verbal/nonverbal cueing, setup/clean-up)? No. ROLL LEFT AND RIGHT - STEP 2: Does the patient need only setup/clean-up assistance from one helper? No. ROLL LEFT AND RIGHT - STEP 3: Does the patient need only verbal/nonverbal cueing or touching/steadying/contact guard assistance fro m one helper? No. ROLL LEFT AND RIGHT - STEP 4: Does the patient need physical assistance - for example lifting or trunk support from one helper - wi th the helper providing less than half of the effort? Yes. 1. [id number] ADMISSION PERFORMANCE: Partial/moderate assistance CODE: 03 SIT TO LYING: SIT TO LYING - STEP 1: Does the patient complete the activity by him/herself with no assistance (physical, verbal/nonverbal cueing, setup/clean-up)? No. SIT TO LYING - STEP 2: Does the patient need only setup/clean-up assistance from one helper? No. SIT TO LYING - STEP 3: Does the patient need only verbal/nonverbal cueing or touching/steadying/contact guard assistance fro m one helper? No. SIT TO LYING - STEP 4: Does the patient need physical assistance - for example lifting or trunk support from one helper - wi th the helper providing less than half of the effort? Yes. 1. [id number] ADMISSION PERFORMANCE: Partial/moderate assistance CODE: 03 LYING TO SITTING: LYING TO SITTING ON SIDE OF BED - STEP 1: Does the patient complete the activity by him/herself with no assistance (physical, verbal/nonverbal cueing, setup/clean-up)? No. LYING TO SITTING ON SIDE OF BED - STEP 2: Does the patient need only setup/clean-up assistance from one helper? No. LYING TO SITTING ON SIDE OF BED - STEP 3: Does the patient need only verbal/nonverbal cueing or touching/steadying/contact guard assistance fro m one helper? No. LYING TO SITTING ON SIDE OF BED - STEP 4: Does the patient need physical assistance - for example lifting or trunk support from one helper - wi th the helper providing less than half of the effort? Yes. 1. [id number] ADMISSION PERFORMANCE: Partial/moderate assistance CODE: 03 SIT TO STAND: SIT TO STAND - STEP 1: Does the patient complete the activity by him/herself with no assistance (physical, verbal/nonverbal cueing, setup/clean-up)? No. SIT TO STAND - STEP 2: Does the patient need only setup/clean-up assistance from one helper? No. SIT TO STAND - STEP 3: Does the patient need only verbal/nonverbal cueing or touching/steadying/contact guard assistance fro m one helper? No. SIT TO STAND - STEP 4: Does the patient need physical assistance - for example lifting or trunk support from one helper - wi th the helper providing less than half of the effort? Yes. 1. [id number] ADMISSION PERFORMANCE: Partial/moderate assistance CODE: 03 TRANSFERS: BED, CHAIR: CHAIR/[id number] TRANSFER - STEP 1: Does the patient complete the activity by him/herself with no assistance (physical, verbal/nonverbal cueing, setup/clean-up)? No. CHAIR/[id number] TRANSFER - STEP 2: Does the patient need only setup/clean-up assistance from one helper? No. CHAIR/[id number] TRANSFER - STEP 3: Does the patient need only verbal/nonverbal cueing or touching/steadying/contact guard assistance fro m one helper? No. CHAIR/[id number] TRANSFER - STEP 4: Does the patient need physical assistance - for example lifting or trunk support from one helper - wi th the helper providing less than half of the effort? Yes. 1. [id number] ADMISSION PERFORMANCE: Partial/moderate assistance CODE: 03 TRANSFER TOILET: TOILET TRANSFER - STEP 1: Does the patient complete the activity by him/herself with no assistance (physical, verbal/nonverbal cueing, setup/clean-up)? No. TOILET TRANSFER - STEP 2: Does the patient need only setup/clean-up assistance from one helper? No. TOILET TRANSFER - STEP 3: Does the patient need only verbal/nonverbal cueing or touching/steadying/contact guard assistance fro m one helper? No. TOILET TRANSFER - STEP 4: Does the patient need physical assistance - for example lifting or trunk support from one helper - wi th the helper providing less than half of the effort? Yes. 1. [id number] ADMISSION PERFORMANCE: Partial/moderate assistance CODE: 03 TRANSFERS: CAR: Not assessed/no information CODE: - WALK 10 FEET: Not assessed/no information CODE: - 1 STEP (CURB): Not assessed/no information CODE: - PICKING UP OBJECT: Not assessed/no information CODE: - DOES THE PATIENT USE A WHEELCHAIR/SCOOTER? CODE: EXPR WHEEL 50 FEET WITH TWO TURNS: Not assessed/no information CODE: - INDICATE THE TYPE OF WHEELCHAIR/SCOOTER USED: CODE: EXPR WHEEL 150 FEET: Not assessed/no information CODE: - INDICATE THE TYPE OF WHEELCHAIR/SCOOTER USED: CODE: EXPR BLADDER AND BOWEL: H350. BLADDER CONTINENCE (3-DAY ASSESSMENT PERIOD): Incontinent less than daily (e.g., once or twice during the 3-day assessment period) CODE: 2 H400. BOWEL CONTINENCE (3-DAY ASSESSMENT PERIOD): Always continent CODE: 0
[2019-06-23] MEDS: carvediloL 3.125 MG TAB PO SCH ×2 (05:04→17:31)
[2019-06-23] MEDS: FUROSEMIDE 20 MG TABLET PO SCH (05:04)
[2019-06-23 05:49] VITALS: BMI 28.7
[2019-06-23] MEDS: PANTOPRAZOLE 40MG TABLET PO SCH (06:41)
[2019-06-23] MEDS: LEVOTHYROXINE SOD 0.05 MG TABLET PO SCH (06:41)
[2019-06-23] MEDS: ENOXAPARIN 40 MG/0.4 ML SQ SCH (06:41)
[2019-06-23] MEDS: CEFEPIME/SWI 1gm 10 ML IV SCH ×2 (06:42→19:41)
[2019-06-23] MEDS: SODIUM CHLORIDE 1 GM TAB PO SCH ×3 (08:16→19:41)
[2019-06-23] MEDS: PROMOD 30 ML DOSE PO SCH ×2 (08:16→19:41)
[2019-06-23] MEDS: ZINC OXIDE 20% OINTMENT 60gm TOP SCH ×2 (08:17→19:41)
[2019-06-24] MEDS: carvediloL 3.125 MG TAB PO SCH ×2 (05:12→17:49)
[2019-06-24] MEDS: FUROSEMIDE 20 MG TABLET PO SCH (05:12)
[2019-06-24] MEDS: PANTOPRAZOLE 40MG TABLET PO SCH (06:36)
[2019-06-24] MEDS: LEVOTHYROXINE SOD 0.05 MG TABLET PO SCH (06:36)
[2019-06-24] MEDS: CEFEPIME/SWI 1gm 10 ML IV SCH ×2 (06:37→20:08)
[2019-06-24] MEDS: ENOXAPARIN 40 MG/0.4 ML SQ SCH (06:38)
[2019-06-24] MEDS: PROMOD 30 ML DOSE PO SCH ×2 (08:02→20:08)
[2019-06-24] MEDS: ZINC OXIDE 20% OINTMENT 60gm TOP SCH ×2 (08:03→20:08)
[2019-06-24] MEDS: SODIUM CHLORIDE 1 GM TAB PO SCH ×3 (08:03→20:10)
[2019-06-25] MEDS: FUROSEMIDE 20 MG TABLET PO SCH (05:09)
[2019-06-25] MEDS: carvediloL 3.125 MG TAB PO SCH ×2 (05:10→17:00)
[2019-06-25] MEDS: LEVOTHYROXINE SOD 0.05 MG TABLET PO SCH (06:18)
[2019-06-25] MEDS: ENOXAPARIN 40 MG/0.4 ML SQ SCH (08:03)
[2019-06-25] MEDS: SODIUM CHLORIDE 1 GM TAB PO SCH ×3 (08:03→22:12)
[2019-06-25] MEDS: ZINC OXIDE 20% OINTMENT 60gm TOP SCH ×2 (08:04→20:00)
[2019-06-25] MEDS: PANTOPRAZOLE 40MG TABLET PO SCH (08:04)
[2019-06-25] MEDS: PROMOD 30 ML DOSE PO SCH ×2 (08:04→20:13)
[2019-06-25] MEDS: CEFEPIME/SWI 1gm 10 ML IV SCH ×2 (09:01→20:12)
--- NOTE | 2019-06-25 23:16 | R.PN ---
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 Pt denied any Shortness of Breath. He had no complaints. He ambuated 550' total with contact guard assistance using a rolling walker. VITAL SIGNS Temperature: 97.7 SBP/DBP: 126/89 Pulse: 81 Resp: 18 MEDICATION ALLERGIES: No Known Drug Allergies (NKDA) ENVIRONMENTAL ALLERGIES: None Known - Substance Allergies None Known - Other Allergies None Known NURSING: - Shower allowing shower ACTIVITIES OOB only with supervision THERAPIES: - Dietary and Nutrition Adequate Nutrition. Nutritional Education. Nutritional Supplements. - Speech Therapy Dysphagia Therapy. PHYSICAL EXAM - Gen Alert and awake Lying in bed No apparent distress Oriented to: person, time, and place - Skin Left head craniotomy site is intact Normacephalic Scalp surgical sites intact - Eyes No abnormalities - ENMT No abnormalities - Neck No abnormalities No cervical adenopathy - CVS RRR - Chest No abnormalities - Resp Decreased breath sounds in both lower lobes - Abd Soft - GI Non distended Deferred - No abnormalities - Ext No significant edema - MSK 4+/5 weakness in right upper and lower extremity - Neuro 4/5 strength right upper and lower extremities. - Psych Mild depression. ASSESSMENT: Pt. is a 89 yo Right-handed white male.On 06/19/2019 he was admitted to [facility] with diagnosis Acute on Chronic CHF.His impairment category is Debility 16 - Debility (16).Pre-morbidly, Pt. was independent/mod-I in Locomotion, Safety Awareness, Social Cognition, Balance, Sphincter Contr ol, Self-Care, Communication, and Endurance; and he had good Locomotion, Safety Awareness, Balance, S ocial Cognition, Transfers Control, Self-Care, Communication, Sphincter Control, and Endurance.Siobhan singletary, he has deficits of Balance, Social Cognition, Communication, and Transfers Control.Pt. is now re ferred to [facility] for acute in-patient rehabilitation in order to maximize patient's functional independence in activities of daily living, strength, ROM, and mobility.- Rehab Goal Patient has realistic goal of being discharged at assistance level 6-Amadou to reside at Home with Fam phillip/Relatives. MDM/PLAN: - Physical Therapy Gait dysfunction - to improve, our physical therapists will perform initial evaluation of pt's statu s upon admission and devise an individualized program for Gait Training, and Wheel Chair mobility Inability to transfer - to improve, our physical therapists will perform initial evaluation of pt's status upon admission and devise an individualized program for Bed mobility Need for home safety evaluation - to improve, our physical therapists will perform initial evaluatio n of pt's status upon admission and devise an individualized program for Home Evaluation Need in caregiver upon discharge - to improve, our physical therapists will perform initial evaluati on of pt's status upon admission and devise an individualized program for Caregiver Training Edema - to improve, our physical therapists will perform initial evaluation of pt's status upon admis jomar and devise an individualized program for Elevation Training, and Lymphedema Therapy New precaution - to improve, our physical therapists will perform initial evaluation of pt's status upon admission and devise an individualized program for Patient precaution education Poor balance - to improve, our physical therapists will perform initial evaluation of pt's status up on admission and devise an individualized program for Balance Training Weakness - to improve, our physical therapists will perform initial evaluation of pt's status upon a dmission and devise an individualized program for Aquatic Therapy, Neuromuscular Reeducation, and Str engthening Achieving independence - to improve, our physical therapists will perform initial evaluation of pt's status upon admission and devise an individualized program for Community Reintegration Activities - Occupational Therapy Cognitive deficits - to improve, our occupation therapists will perform initial evaluation of pt's s tatus upon admission and devise an individualized program for Cognition - orientation Need for healthcare technician - to improve, our occupation therapists will perform initial evaluation of pt's status upon admission and devise an individualized program for Caregiver Training Weakness - to improve, our occupation therapists will perform initial evaluation of pt's status upon admission and devise an individualized program for Aquatic Therapy, Balance, Endurance, UE ROM, and UE strengthening - Other See attached MAR (Medication Administration Record) - Diet Type Continue Regular - Diet - Liquid Texture Continue Thin - Tube Feed Continue N/A - Diet - Solid Texture Continue Regular Continue Mechanical Soft - Shower allowing shower FUNCTIONAL STATUS: UPDATED AT WEEKLY TEAM CONFERENCE - Bladder Same accident frequency: 7-Ind - No accidents in the past 7 days - Bowel Same accident frequency: 7-Ind - No accidents in the past 7 days - Walking Same score based on distance walked: 0(N/A) Same score based on distance walked: 2(50-149ft) - Wheelchair Same score based on distance traveled: 0(N/A) FUNCTIONAL STATUS: - Self-Care A. Eating sup B. Grooming sup C. Bathing Peace D. Dressing - Upper Peace E. Dressing - Lower modA F. Toileting sup - Sphincter Control G. Bladder control sup H. Bowel control sup - Transfers Control I. Bed/Chair/Wheelchair Peace J. Toilet Peace K. Tub/Shower modA - Locomotion L. Walk/Wheelchair (B) sup M. Stairs ADNO - Communication N. Comprehension (B) sup O. Expression (B) sup - Social Cognition P. Social Interaction Amadou Q. Problem Solving sup R. Memory sup - Endurance Fair - Balance Fair - Safety Awareness Poor QI SCORES: - Self-Care A. Eating 04-Supervision or touching assistance B. Oral hygiene 05-Setup or clean-up assistance C. Toileting hygiene 02-Substantial/maximal assistance E. Shower/bathe self 03-Partial/moderate assistance F. Upper body dressing 03-Partial/moderate assistance G. Lower body dressing 02-Substantial/maximal assistance H. Putting on/taking off footwear 88-Not attempted due to medical condition or safety concerns - Mobility K. Walk 150 feet 03-Partial/moderate assistance B. Sit to lying 03-Partial/moderate assistance C. Lying to sitting on side of bed 03-Partial/moderate assistance D. Sit to stand 03-Partial/moderate assistance E. Chair/[id number] transfer 03-Partial/moderate assistance F. Toilet transfer 03-Partial/moderate assistance G. Car transfer 88-Not attempted due to medical condition or safety concerns I. Walk 10 feet 03-Partial/moderate assistance J. Walk 50 feet with two turns 03-Partial/moderate assistance L. Walking 10 feet on uneven surfaces 88-Not attempted due to medical condition or safety concerns M. 1 step (curb) 88-Not attempted due to medical condition or safety concerns N. 4 steps 88-Not attempted due to medical condition or safety concerns O. 12 steps 03-Partial/moderate assistance P. Picking up object 03-Partial/moderate assistance R. Wheel 50 feet with two turns 88-Not attempted due to medical condition or safety concerns S. Wheel 150 feet 03-Partial/moderate assistance - Bladder and Bowel Bladder continence 0-Always continent Bowel continence 0-Always continent - Endurance Fair - Balance Fair - Safety Awareness Fair CURRENT [facility]. DEFICITS: Self-Care, Mobility, Endurance, Balance, and Safety Awareness SIGNATURE PANEL: (CDT)
[2019-06-26] MEDS: FUROSEMIDE 20 MG TABLET PO SCH (05:34)
[2019-06-26] MEDS: carvediloL 3.125 MG TAB PO SCH ×2 (05:35→17:07)
[2019-06-26] MEDS: LEVOTHYROXINE SOD 0.05 MG TABLET PO SCH (06:33)
[2019-06-26] MEDS: ENOXAPARIN 40 MG/0.4 ML SQ SCH (07:14)
[2019-06-26] MEDS: CEFEPIME/SWI 1gm 10 ML IV SCH ×2 (07:16→20:04)
[2019-06-26] MEDS: PROMOD 30 ML DOSE PO SCH ×2 (08:00→20:04)
[2019-06-26] MEDS: PANTOPRAZOLE 40MG TABLET PO SCH (08:03)
[2019-06-26] MEDS: ZINC OXIDE 20% OINTMENT 60gm TOP SCH ×2 (08:03→20:00)
[2019-06-26] MEDS: SODIUM CHLORIDE 1 GM TAB PO SCH ×3 (08:05→20:05)
--- NOTE | 2019-06-26 15:52 | FAST ---
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 Bimal Carpio M.D. ADMISSION DIAGNOSIS: - Debility 16 - Debility (16) Acute on Chronic CHF. ACUTE ENCEPHALOPATHY RELATED TO UTI. EATING: EATING - STEP 1: Does the patient complete the activity by him/herself with no assistance (physical, verbal/nonverbal cueing, setup/clean-up)? No. EATING - STEP 2: Does the patient need only setup/clean-up assistance from one helper? No. EATING - STEP 3: Does the patient need only verbal/nonverbal cueing or touching/steadying/contact guard assistance fro m one helper? No. EATING - STEP 4: Does the patient need physical assistance - for example lifting or trunk support from one helper - wi th the helper providing less than half of the effort? No. EATING - STEP 5: Does the patient need physical assistance - for example lifting or trunk support from one helper - wi th the helper providing more than half of the effort? Yes. 1. [id number] ADMISSION PERFORMANCE: Substantial/maximal assistance CODE: 02 ORAL HYGIENE: ORAL HYGIENE - STEP 1: Does the patient complete the activity by him/herself with no assistance (physical, verbal/nonverbal cueing, setup/clean-up)? No. ORAL HYGIENE - STEP 2: Does the patient need only setup/clean-up assistance from one helper? No. ORAL HYGIENE - STEP 3: Does the patient need only verbal/nonverbal cueing or touching/steadying/contact guard assistance fro m one helper? Yes. 1. [id number] ADMISSION PERFORMANCE: Supervision or touching assistance CODE: 04 TOILETING HYGIENE: TOILETING HYGIENE - STEP 1: Does the patient complete the activity by him/herself with no assistance (physical, verbal/nonverbal cueing, setup/clean-up)? No. TOILETING HYGIENE - STEP 2: Does the patient need only setup/clean-up assistance from one helper? Yes. 1. [id number] ADMISSION PERFORMANCE: Setup or clean-up assistance CODE: 05 BATHING: Not assessed/no information CODE: - DRESSING - UPPER BODY: DRESSING - UPPER BODY - STEP 1: Does the patient complete the activity by him/herself with no assistance (physical, verbal/nonverbal cueing, setup/clean-up)? No. DRESSING - UPPER BODY - STEP 2: Does the patient need only setup/clean-up assistance from one helper? No. DRESSING - UPPER BODY - STEP 3: Does the patient need only verbal/nonverbal cueing or touching/steadying/contact guard assistance fro m one helper? No. DRESSING - UPPER BODY - STEP 4: Does the patient need physical assistance - for example lifting or trunk support from one helper - wi th the helper providing less than half of the effort? No. DRESSING - UPPER BODY - STEP 5: Does the patient need physical assistance - for example lifting or trunk support from one helper - wi th the helper providing more than half of the effort? Yes. 1. [id number] ADMISSION PERFORMANCE: Substantial/maximal assistance CODE: 02 DRESSING - LOWER BODY: DRESSING - LOWER BODY - STEP 1: Does the patient complete the activity by him/herself with no assistance (physical, verbal/nonverbal cueing, setup/clean-up)? No. DRESSING - LOWER BODY - STEP 2: Does the patient need only setup/clean-up assistance from one helper? No. DRESSING - LOWER BODY - STEP 3: Does the patient need only verbal/nonverbal cueing or touching/steadying/contact guard assistance fro m one helper? No. DRESSING - LOWER BODY - STEP 4: Does the patient need physical assistance - for example lifting or trunk support from one helper - wi th the helper providing less than half of the effort? No. DRESSING - LOWER BODY - STEP 5: Does the patient need physical assistance - for example lifting or trunk support from one helper - wi th the helper providing more than half of the effort? Yes. 1. [id number] ADMISSION PERFORMANCE: Substantial/maximal assistance CODE: 02 PUTTING ON/TAKING OFF FOOTWEAR: FOOTWEAR - STEP 1: Does the patient complete the activity by him/herself with no assistance (physical, verbal/nonverbal cueing, setup/clean-up)? No. FOOTWEAR - STEP 2: Does the patient need only setup/clean-up assistance from one helper? No. FOOTWEAR - STEP 3: Does the patient need only verbal/nonverbal cueing or touching/steadying/contact guard assistance fro m one helper? No. FOOTWEAR - STEP 4: Does the patient need physical assistance - for example lifting or trunk support from one helper - wi th the helper providing less than half of the effort? No. FOOTWEAR - STEP 5: Does the patient need physical assistance - for example lifting or trunk support from one helper - wi th the helper providing more than half of the effort? Yes. 1. [id number] ADMISSION PERFORMANCE: Substantial/maximal assistance CODE: 02 DOES THE PATIENT USE A WHEELCHAIR/SCOOTER? CODE: EXPR INDICATE THE TYPE OF WHEELCHAIR/SCOOTER USED: CODE: EXPR INDICATE THE TYPE OF WHEELCHAIR/SCOOTER USED: CODE: EXPR BLADDER AND BOWEL: H350. BLADDER CONTINENCE (3-DAY ASSESSMENT PERIOD): Always continent (no documented incontinence) CODE: 0 H400. BOWEL CONTINENCE (3-DAY ASSESSMENT PERIOD): Always continent CODE: 0 SIGNATURE PANEL: The following modified sections: 1. [id number] Admission Performance, 1. [id number] Admission Performance, 1. [id number] Admission Performance, 1. [id number] Admission Performance, 1. [id number] Admission Performance, 1. [id number] Admission Performance, 1. [id number] Admission Performance, H350. Bladder Continence (3-day assessment period), H400. Bowel Continence (3-day assessment period) were [electronically] signed by Greer Webb C.N.A. on TueJun 26 2019 15:50:57 T-0500 (Central Daylight Time)
--- NOTE | 2019-06-26 17:38 | R.PN ---
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 Pt denied any Shortness of Breath. He had no complaints. He ambuated 550' total with contact guard assistance using a rolling walker. VITAL SIGNS Temperature: 97.7 SBP/DBP: 146/89 Pulse: 72 Resp: 16 MEDICATION ALLERGIES: No Known Drug Allergies (NKDA) ENVIRONMENTAL ALLERGIES: None Known - Substance Allergies None Known - Other Allergies None Known NURSING: - Shower allowing shower ACTIVITIES OOB only with supervision THERAPIES: - Dietary and Nutrition Adequate Nutrition. Nutritional Education. Nutritional Supplements. - Speech Therapy Dysphagia Therapy. PHYSICAL EXAM - Gen Alert and awake Lying in bed No apparent distress Oriented to: person, time, and place - Skin Left head craniotomy site is intact Normacephalic Scalp surgical sites intact - Eyes No abnormalities - ENMT No abnormalities - Neck No abnormalities No cervical adenopathy - CVS RRR - Chest No abnormalities - Resp Decreased breath sounds in both lower lobes - Abd Soft - GI Non distended Deferred - No abnormalities - Ext No significant edema - MSK 4+/5 weakness in right upper and lower extremity - Neuro 4/5 strength right upper and lower extremities. - Psych Mild depression. ASSESSMENT: Pt. is a 89 yo Right-handed white male.On 06/19/2019 he was admitted to [facility] with diagnosis Acute on Chronic CHF.His impairment category is Debility 16 - Debility (16).Pre-morbidly, Pt. was independent/mod-I in Locomotion, Safety Awareness, Social Cognition, Balance, Sphincter Contr ol, Self-Care, Communication, and Endurance; and he had good Locomotion, Safety Awareness, Balance, S ocial Cognition, Transfers Control, Self-Care, Communication, Sphincter Control, and Endurance.Siobhan singletary, he has deficits of Balance, Social Cognition, Communication, and Transfers Control.Pt. is now re ferred to [facility] for acute in-patient rehabilitation in order to maximize patient's functional independence in activities of daily living, strength, ROM, and mobility.- Rehab Goal Patient has realistic goal of being discharged at assistance level 6-Amadou to reside at Home with Fam phillip/Relatives. MDM/PLAN: - Physical Therapy Gait dysfunction - to improve, our physical therapists will perform initial evaluation of pt's statu s upon admission and devise an individualized program for Gait Training, and Wheel Chair mobility Inability to transfer - to improve, our physical therapists will perform initial evaluation of pt's status upon admission and devise an individualized program for Bed mobility Need for home safety evaluation - to improve, our physical therapists will perform initial evaluatio n of pt's status upon admission and devise an individualized program for Home Evaluation Need in caregiver upon discharge - to improve, our physical therapists will perform initial evaluati on of pt's status upon admission and devise an individualized program for Caregiver Training Edema - to improve, our physical therapists will perform initial evaluation of pt's status upon admi ssion and devise an individualized program for Elevation Training, and Lymphedema Therapy New precaution - to improve, our physical therapists will perform initial evaluation of pt's status upon admission and devise an individualized program for Patient precaution education Poor balance - to improve, our physical therapists will perform initial evaluation of pt's status up on admission and devise an individualized program for Balance Training Weakness - to improve, our physical therapists will perform initial evaluation of pt's status upon a dmission and devise an individualized program for Aquatic Therapy, Neuromuscular Reeducation, and Str engthening Achieving independence - to improve, our physical therapists will perform initial evaluation of pt's status upon admission and devise an individualized program for Community Reintegration Activities - Occupational Therapy Cognitive deficits - to improve, our occupation therapists will perform initial evaluation of pt's s tatus upon admission and devise an individualized program for Cognition - orientation Need for wound care center consultant - to improve, our occupation therapists will perform initial evaluation of pt's status upon admission and devise an individualized program for Caregiver Training Weakness - to improve, our occupation therapists will perform initial evaluation of pt's status upon admission and devise an individualized program for Aquatic Therapy, Balance, Endurance, UE ROM, and UE strengthening - Other See attached MAR (Medication Administration Record) - Diet Type Continue Regular - Diet - Liquid Texture Continue Thin - Tube Feed Continue N/A - Diet - Solid Texture Continue Regular Continue Mechanical Soft - Shower allowing shower FUNCTIONAL STATUS: UPDATED AT WEEKLY TEAM CONFERENCE - Bladder Same accident frequency: 7-Ind - No accidents in the past 7 days - Bowel Same accident frequency: 7-Ind - No accidents in the past 7 days - Walking Same score based on distance walked: 0(N/A) Same score based on distance walked: 2(50-149ft) - Wheelchair Same score based on distance traveled: 0(N/A) FUNCTIONAL STATUS: - Self-Care A. Eating sup B. Grooming sup C. Bathing Peace D. Dressing - Upper Peace E. Dressing - Lower modA F. Toileting sup - Sphincter Control G. Bladder control sup H. Bowel control sup - Transfers Control I. Bed/Chair/Wheelchair Peace J. Toilet Peace K. Tub/Shower modA - Locomotion L. Walk/Wheelchair (B) sup M. Stairs ADNO - Communication N. Comprehension (B) sup O. Expression (B) sup - Social Cognition P. Social Interaction Amadou Q. Problem Solving sup R. Memory sup - Endurance Fair - Balance Fair - Safety Awareness Poor QI SCORES: - Self-Care A. Eating 04-Supervision or touching assistance B. Oral hygiene 05-Setup or clean-up assistance C. Toileting hygiene 02-Substantial/maximal assistance E. Shower/bathe self 03-Partial/moderate assistance F. Upper body dressing 03-Partial/moderate assistance G. Lower body dressing 02-Substantial/maximal assistance H. Putting on/taking off footwear 88-Not attempted due to medical condition or safety concerns - Mobility K. Walk 150 feet 03-Partial/moderate assistance B. Sit to lying 03-Partial/moderate assistance C. Lying to sitting on side of bed 03-Partial/moderate assistance D. Sit to stand 03-Partial/moderate assistance E. Chair/uzq-fp-yucum transfer 03-Partial/moderate assistance F. Toilet transfer 03-Partial/moderate assistance G. Car transfer 88-Not attempted due to medical condition or safety concerns I. Walk 10 feet 03-Partial/moderate assistance J. Walk 50 feet with two turns 03-Partial/moderate assistance L. Walking 10 feet on uneven surfaces 88-Not attempted due to medical condition or safety concerns M. 1 step (curb) 88-Not attempted due to medical condition or safety concerns N. 4 steps 88-Not attempted due to medical condition or safety concerns O. 12 steps 03-Partial/moderate assistance P. Picking up object 03-Partial/moderate assistance R. Wheel 50 feet with two turns 88-Not attempted due to medical condition or safety concerns S. Wheel 150 feet 03-Partial/moderate assistance - Bladder and Bowel Bladder continence 0-Always continent Bowel continence 0-Always continent - Endurance Fair - Balance Fair - Safety Awareness Fair CURRENT [facility]. DEFICITS: Self-Care, Mobility, Endurance, Balance, and Safety Awareness SIGNATURE PANEL: (CDT)
[2019-06-27] MEDS: carvediloL 3.125 MG TAB PO SCH ×2 (05:17→17:33)
[2019-06-27] MEDS: FUROSEMIDE 20 MG TABLET PO SCH (05:18)
[2019-06-27] MEDS: ENOXAPARIN 40 MG/0.4 ML SQ SCH (06:47)
[2019-06-27] MEDS: PANTOPRAZOLE 40MG TABLET PO SCH (06:47)
[2019-06-27] MEDS: LEVOTHYROXINE SOD 0.05 MG TABLET PO SCH (06:47)
[2019-06-27] MEDS: PROMOD 30 ML DOSE PO SCH ×2 (07:15→20:00)
[2019-06-27] MEDS: ZINC OXIDE 20% OINTMENT 60gm TOP SCH ×2 (07:15→20:14)
[2019-06-27] MEDS: SODIUM CHLORIDE 1 GM TAB PO SCH ×3 (08:43→20:14)
[2019-06-27 09:03] LABS: Urine Appearance CLEAR; Urine Bilirubin NEGATIVE (NEG); Urine Blood NEGATIVE (NEG); Urine Color YELLOW; Urine Glucose NEGATIVE (NEG); Urine Protein NEGATIVE (NEG); Urine Specific Gravity <=1.005 (1.005-1.030); Urine Urobilinogen 0.2 mg/dL (0.2-1.0)
[2019-06-27 09:41] LABS: Urine Bacteria NONE SEEN /HPF (NONE SEEN); Urine RBC NONE SEEN /HPF (NONE SEEN)
--- NOTE | 2019-06-27 18:00 | R.PN ---
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 Pt denied any Shortness of Breath. He had no complaints. He ambulated 750' total with contact guard assistance using a rolling walker. His UA is negative. VITAL SIGNS Temperature: 97.0 SBP/DBP: 149/79 Pulse: 68 Resp: 16 MEDICATION ALLERGIES: No Known Drug Allergies (NKDA) ENVIRONMENTAL ALLERGIES: None Known - Substance Allergies None Known - Other Allergies None Known NURSING: - Shower allowing shower ACTIVITIES OOB only with supervision THERAPIES: - Dietary and Nutrition Adequate Nutrition. Nutritional Education. Nutritional Supplements. - Speech Therapy Dysphagia Therapy. PHYSICAL EXAM - Gen Alert and awake Lying in bed No apparent distress Oriented to: person, time, and place - Skin Left head craniotomy site is intact Normacephalic Scalp surgical sites intact - Eyes No abnormalities - ENMT No abnormalities - Neck No abnormalities No cervical adenopathy - CVS RRR - Chest No abnormalities - Resp Decreased breath sounds in both lower lobes - Abd Soft - GI Non distended Deferred - No abnormalities - Ext No significant edema - MSK 4+/5 weakness in right upper and lower extremity - Neuro 4/5 strength right upper and lower extremities. - Psych Mild depression. ASSESSMENT: Pt. is a 89 yo Right-handed white male.On 06/19/2019 he was admitted to [facility] with diagnosis Acute on Chronic CHF.His impairment category is Debility 16 - Debility (16).Pre-morbidly, Pt. was independent/mod-I in Locomotion, Safety Awareness, Social Cognition, Balance, Sphincter Contr ol, Self-Care, Communication, and Endurance; and he had good Locomotion, Safety Awareness, Balance, S ocial Cognition, Transfers Control, Self-Care, Communication, Sphincter Control, and Endurance.Siobhan singletary, he has deficits of Balance, Social Cognition, Communication, and Transfers Control.Pt. is now re ferred to [facility] for acute in-patient rehabilitation in order to maximize patient's functional independence in activities of daily living, strength, ROM, and mobility.- Rehab Goal Patient has realistic goal of being discharged at assistance level 6-Amadou to reside at Home with Fam phillip/Relatives. MDM/PLAN: - Physical Therapy Gait dysfunction - to improve, our physical therapists will perform initial evaluation of pt's statu s upon admission and devise an individualized program for Gait Training, and Wheel Chair mobility Inability to transfer - to improve, our physical therapists will perform initial evaluation of pt's status upon admission and devise an individualized program for Bed mobility Need for home safety evaluation - to improve, our physical therapists will perform initial evaluatio n of pt's status upon admission and devise an individualized program for Home Evaluation Need in caregiver upon discharge - to improve, our physical therapists will perform initial evaluati on of pt's status upon admission and devise an individualized program for Caregiver Training Edema - to improve, our physical therapists will perform initial evaluation of pt's status upon admi ssion and devise an individualized program for Elevation Training, and Lymphedema Therapy New precaution - to improve, our physical therapists will perform initial evaluation of pt's status upon admission and devise an individualized program for Patient precaution education Poor balance - to improve, our physical therapists will perform initial evaluation of pt's status up on admission and devise an individualized program for Balance Training Weakness - to improve, our physical therapists will perform initial evaluation of pt's status upon a dmission and devise an individualized program for Aquatic Therapy, Neuromuscular Reeducation, and Str engthening Achieving independence - to improve, our physical therapists will perform initial evaluation of pt's status upon admission and devise an individualized program for Community Reintegration Activities - Occupational Therapy Cognitive deficits - to improve, our occupation therapists will perform initial evaluation of pt's s tatus upon admission and devise an individualized program for Cognition - orientation Need for child care provider - to improve, our occupation therapists will perform initial evaluation of pt's status upon admission and devise an individualized program for Caregiver Training Weakness - to improve, our occupation therapists will perform initial evaluation of pt's status upon admission and devise an individualized program for Aquatic Therapy, Balance, Endurance, UE ROM, and UE strengthening - Other See attached MAR (Medication Administration Record) - Diet Type Continue Regular - Diet - Liquid Texture Continue Thin - Tube Feed Continue N/A - Diet - Solid Texture Continue Regular Continue Mechanical Soft - Shower allowing shower FUNCTIONAL STATUS: UPDATED AT WEEKLY TEAM CONFERENCE - Bladder Same accident frequency: 7-Ind - No accidents in the past 7 days - Bowel Same accident frequency: 7-Ind - No accidents in the past 7 days - Walking Same score based on distance walked: 0(N/A) Same score based on distance walked: 2(50-149ft) - Wheelchair Same score based on distance traveled: 0(N/A) FUNCTIONAL STATUS: - Self-Care A. Eating sup B. Grooming sup C. Bathing Peace D. Dressing - Upper Peace E. Dressing - Lower modA F. Toileting sup - Sphincter Control G. Bladder control sup H. Bowel control sup - Transfers Control I. Bed/Chair/Wheelchair Peace J. Toilet Peace K. Tub/Shower modA - Locomotion L. Walk/Wheelchair (B) sup M. Stairs ADNO - Communication N. Comprehension (B) sup O. Expression (B) sup - Social Cognition P. Social Interaction Amadou Q. Problem Solving sup R. Memory sup - Endurance Fair - Balance Fair - Safety Awareness Poor QI SCORES: - Self-Care A. Eating 04-Supervision or touching assistance B. Oral hygiene 05-Setup or clean-up assistance C. Toileting hygiene 02-Substantial/maximal assistance E. Shower/bathe self 03-Partial/moderate assistance F. Upper body dressing 03-Partial/moderate assistance G. Lower body dressing 02-Substantial/maximal assistance H. Putting on/taking off footwear 88-Not attempted due to medical condition or safety concerns - Mobility K. Walk 150 feet 03-Partial/moderate assistance B. Sit to lying 03-Partial/moderate assistance C. Lying to sitting on side of bed 03-Partial/moderate assistance D. Sit to stand 03-Partial/moderate assistance E. Chair/die-nj-bmvfl transfer 03-Partial/moderate assistance F. Toilet transfer 03-Partial/moderate assistance G. Car transfer 88-Not attempted due to medical condition or safety concerns I. Walk 10 feet 03-Partial/moderate assistance J. Walk 50 feet with two turns 03-Partial/moderate assistance L. Walking 10 feet on uneven surfaces 88-Not attempted due to medical condition or safety concerns M. 1 step (curb) 88-Not attempted due to medical condition or safety concerns N. 4 steps 88-Not attempted due to medical condition or safety concerns O. 12 steps 03-Partial/moderate assistance P. Picking up object 03-Partial/moderate assistance R. Wheel 50 feet with two turns 88-Not attempted due to medical condition or safety concerns S. Wheel 150 feet 03-Partial/moderate assistance - Bladder and Bowel Bladder continence 0-Always continent Bowel continence 0-Always continent - Endurance Fair - Balance Fair - Safety Awareness Fair CURRENT [facility]. DEFICITS: Self-Care, Mobility, Endurance, Balance, and Safety Awareness SIGNATURE PANEL: (CDT)
[2019-06-27] MEDS: SODIUM CHLORIDE 0.9% 10ML INJ IV SCH (20:13)
[2019-06-28] MEDS: FUROSEMIDE 20 MG TABLET PO SCH ×2 (05:06→17:14)
[2019-06-28] MEDS: carvediloL 3.125 MG TAB PO SCH ×2 (05:06→17:15)
[2019-06-28 05:56] LABS: Absolute Lymphocytes (CBC) 1.2 K/uL (0.7-4.9); Basophils % 0.6 % (0-1.3); Hematocrit 33.3 % (39.6-49.0); Lymphocytes % 30.8 % (15.3-44.8); MPV 8.1 fL (7.6-11.3); RBC Red Blood Cell Count 3.78 M/uL (4.33-5.43)
[2019-06-28 06:20] LABS: Albumin 2.9 g/dL (3.4-5.0); Magnesium 1.8 mg/dL (1.8-2.4); Potassium 3.8 mmol/L (3.5-5.1); Prealbumin 17.9 mg/dL (20-40)
[2019-06-28] MEDS: PANTOPRAZOLE 40MG TABLET PO SCH (06:41)
[2019-06-28] MEDS: ENOXAPARIN 40 MG/0.4 ML SQ SCH (06:41)
[2019-06-28] MEDS: LEVOTHYROXINE SOD 0.05 MG TABLET PO SCH (06:41)
[2019-06-28] MEDS: PROMOD 30 ML DOSE PO SCH ×2 (06:42→20:11)
[2019-06-28] MEDS: SODIUM CHLORIDE 0.9% 10ML INJ IV SCH ×2 (06:42→20:12)
[2019-06-28] MEDS: ZINC OXIDE 20% OINTMENT 60gm TOP SCH ×2 (06:43→20:14)
[2019-06-28] MEDS: SODIUM CHLORIDE 1 GM TAB PO SCH ×3 (08:24→20:11)
[2019-06-28 08:44] LABS: Anisocytosis 1+; Blood Morphology Comment NOTED (NOT SEEN); Platelet Estimate ADEQ; Poikilocytosis 1+
--- NOTE | 2019-06-28 10:13 | P.RH.PN ---
Estimated Length of Stay: 15 Expected Discharge Date: 07/05/19 Discharge Disposition Plan: Home Family Support: Yes Care Home Goal: Mobility, Transfers, Self Care Vital Signs: Last Vital Signs Temp 96.6 F L 06/28/19 08:00 Pulse 56 06/28/19 08:00 Resp 14 06/28/19 08:00 BP 138/76 06/28/19 08:00 Pulse Ox 98 06/28/19 08:00 Laboratory: Laboratory Last Values WBC 3.8 K/uL (4.3-10.9) L 06/28/19 05:30 RBC 3.78 M/uL (4.33-5.43) L 06/28/19 05:30 Hgb 11.0 g/dL (13.6-17.9) L 06/28/19 05:30 Hct 33.3 % (39.6-49.0) L 06/28/19 05:30 MCV 88.0 fL (80-100) 06/28/19 05:30 MCH 29.2 pg (27.0-35.0) 06/28/19 05:30 MCHC 33.1 g/dL (32.0-36.0) 06/28/19 05:30 RDW 14.8 % (12.1-15.2) 06/28/19 05:30 Plt Count 139 K/uL (152-406) L 06/28/19 05:30 MPV 8.1 fL (7.6-11.3) 06/28/19 05:30 Plt Distribution Width Cancelled 06/28/19 06:00 Absolute Nucleated RBC Cancelled 06/28/19 06:00 Neutrophils % 48.9 % (41.7-73.7) 06/28/19 05:30 Lymphocytes % 30.8 % (15.3-44.8) 06/28/19 05:30 Monocytes % 16.0 % (3.3-12.3) H 06/28/19 05:30 Eosinophils % 3.7 % (0-4.4) 06/28/19 05:30 Basophils % 0.6 % (0-1.3) 06/28/19 05:30 Nucleated RBC % Cancelled 06/28/19 06:00 Absolute Neutrophils 1.9 K/uL (1.8-8.0) 06/28/19 05:30 Segmented Neutrophils 48 % (40-80) 06/28/19 05:30 Absolute Lymphocytes 1.2 K/uL (0.7-4.9) 06/28/19 05:30 Lymphocytes 36 % (15-42) 06/28/19 05:30 Monocytes 10 % (0-10) 06/28/19 05:30 Absolute Monocytes 0.6 K/uL (0.1-1.3) 06/28/19 05:30 Eosinophils 6 % (0-3) H 06/28/19 05:30 Absolute Eosinophils 0.1 K/uL (0-0.5) 06/28/19 05:30 Absolute Basophils 0.0 K/uL (0-0.5) 06/28/19 05:30 Diff Path Review Cancelled 06/28/19 06:00 Poikilocytosis 1+ 06/28/19 05:30 Anisocytosis 1+ 06/28/19 05:30 Morphology Comment Noted (NOT SEEN) 06/28/19 05:30 Sodium 140 mmol/L (136-145) 06/28/19 05:30 Potassium 3.8 mmol/L (3.5-5.1) 06/28/19 05:30 Chloride 107 mmol/L (98-107) 06/28/19 05:30 Carbon Dioxide 29 mmol/L (21-32) 06/28/19 05:30 BUN 11 mg/dL (7-18) 06/28/19 05:30 Creatinine 1.01 mg/dL (0.55-1.3) 06/28/19 05:30 Estimated GFR 85 mL/min (=/>90) L 06/28/19 05:30 Glucose 84 mg/dL (74-106) 06/28/19 05:30 Calcium 9.5 mg/dL (8.5-10.1) 06/28/19 05:30 Magnesium 1.8 mg/dL (1.8-2.4) 06/28/19 05:30 Albumin 2.9 g/dL (3.4-5.0) L 06/28/19 05:30 Prealbumin 17.9 mg/dL (20-40) L 06/28/19 05:30 Urine Color Yellow 06/27/19 08:18 Urine Appearance Clear 06/27/19 08:18 Urine pH 7.0 (5.0-7.0) 06/27/19 08:18 Ur Specific [place] <=1.005 (1.005-1.030) 06/27/19 08:18 Glucose (UA)(Auto) Negative (NEG) 06/27/19 08:18 Urine Ketones Negative (NEG) 06/27/19 08:18 Urine Blood Negative (NEG) 06/27/19 08:18 Urine Nitrite Negative (NEG) 06/27/19 08:18 Urine Bilirubin Negative (NEG) 06/27/19 08:18 Urine Urobilinogen 0.2 mg/dL (0.2-1.0) 06/27/19 08:18 Ur Leukocyte Esterase Negative (NEG) 06/27/19 08:18 Urine RBC None seen /HPF (NONE SEEN) 06/27/19 08:18 Urine WBC <5 /HPF (<5) 06/27/19 08:18 Ur Squamous Epith Cells <5 /HPF (NONE SEEN) 06/27/19 08:18 Urine Bacteria None seen /HPF (NONE SEEN) 06/27/19 08:18 Urine Culture Reflexed Not needed 06/27/19 08:18 Urine Total Protein Negative (NEG) 06/27/19 08:18 Weight: 162 lb 6.4 oz Wound Present: No Closed Surgical Incision Present: No Negative Pressure Wound Therapy Present: No Physician Update: Labs reviewed and are stable. Walking 500' with contact guard. Standby assistance with tranfers. He has a global aphasia but will say spontaneous basic expressions. He requires moderate assitance with dressing and showers. Medical Issues: Patient is incontinent daily with bladder and always continent with bowel. UTI - Patient is taking Cefepime 1 gm Q12H IVPB for total of 7 days Functional Improvement: pt presents with poor balance and stability during ambulation and functional transfers. pt demonstrates poor safety awareness and an inability to initiate functional activities. pt demonstrates processing delay. pt experiences poor tolerance to functional activity due to pain, weakness and fatigue. Skilled PT services are necessary to address the above mentioned impairments and functional limitations. Speech Therapy Update: Patient presents with severe-marked receptive, expressive aphasia. Patient appears to understand more than he can express. He communicates through facial expressions, some automatic expressions/ responsive speech, some unintelligible utterances, and gestures. Patient yes/ no response is unreliable. Patient does not imitate or follow commands or engage in any functional communication. Patient currently on modified diet and tolerating it well. Summary: Patient's care plan and longterm goals have been reviewed and revised as necessary. Please see the Rehabilitation Signature page for all necessary signatures.
--- NOTE | 2019-06-28 10:42 | FAST ---
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 Bimal Carpio M.D. ADMISSION DIAGNOSIS: - Debility 16 - Debility (16) Acute on Chronic CHF. ACUTE ENCEPHALOPATHY RELATED TO UTI. EATING: EATING - STEP 1: Does the patient complete the activity by him/herself with no assistance (physical, verbal/nonverbal cueing, setup/clean-up)? No. EATING - STEP 2: Does the patient need only setup/clean-up assistance from one helper? No. EATING - STEP 3: Does the patient need only verbal/nonverbal cueing or touching/steadying/contact guard assistance fro m one helper? Yes. 1. [id number] ADMISSION PERFORMANCE: Supervision or touching assistance CODE: 04 ORAL HYGIENE: ORAL HYGIENE - STEP 1: Does the patient complete the activity by him/herself with no assistance (physical, verbal/nonverbal cueing, setup/clean-up)? No. ORAL HYGIENE - STEP 2: Does the patient need only setup/clean-up assistance from one helper? No. ORAL HYGIENE - STEP 3: Does the patient need only verbal/nonverbal cueing or touching/steadying/contact guard assistance fro m one helper? Yes. 1. [id number] ADMISSION PERFORMANCE: Supervision or touching assistance CODE: 04 TOILETING HYGIENE: TOILETING HYGIENE - STEP 1: Does the patient complete the activity by him/herself with no assistance (physical, verbal/nonverbal cueing, setup/clean-up)? No. TOILETING HYGIENE - STEP 2: Does the patient need only setup/clean-up assistance from one helper? No. TOILETING HYGIENE - STEP 3: Does the patient need only verbal/nonverbal cueing or touching/steadying/contact guard assistance fro m one helper? Yes. 1. [id number] ADMISSION PERFORMANCE: Supervision or touching assistance CODE: 04 BATHING: Not assessed/no information CODE: - DRESSING - UPPER BODY: Not assessed/no information CODE: - DRESSING - LOWER BODY: Not assessed/no information CODE: - PUTTING ON/TAKING OFF FOOTWEAR: Not assessed/no information CODE: - ROLL LEFT AND RIGHT: Not assessed/no information CODE: - SIT TO LYING: Not assessed/no information CODE: - LYING TO SITTING: Not assessed/no information CODE: - SIT TO STAND: Not assessed/no information CODE: - TRANSFERS: BED, CHAIR: CHAIR/[id number] TRANSFER - STEP 1: Does the patient complete the activity by him/herself with no assistance (physical, verbal/nonverbal cueing, setup/clean-up)? No. CHAIR/[id number] TRANSFER - STEP 2: Does the patient need only setup/clean-up assistance from one helper? No. CHAIR/[id number] TRANSFER - STEP 3: Does the patient need only verbal/nonverbal cueing or touching/steadying/contact guard assistance fro m one helper? Yes. 1. [id number] ADMISSION PERFORMANCE: Supervision or touching assistance CODE: 04 TRANSFER TOILET: TOILET TRANSFER - STEP 1: Does the patient complete the activity by him/herself with no assistance (physical, verbal/nonverbal cueing, setup/clean-up)? No. TOILET TRANSFER - STEP 2: Does the patient need only setup/clean-up assistance from one helper? No. TOILET TRANSFER - STEP 3: Does the patient need only verbal/nonverbal cueing or touching/steadying/contact guard assistance fro m one helper? Yes. 1. [id number] ADMISSION PERFORMANCE: Supervision or touching assistance CODE: 04 TRANSFERS: CAR: Not assessed/no information CODE: - WALK 10 FEET: Not assessed/no information CODE: - 1 STEP (CURB): Not assessed/no information CODE: - PICKING UP OBJECT: Not assessed/no information CODE: - DOES THE PATIENT USE A WHEELCHAIR/SCOOTER? CODE: EXPR WHEEL 50 FEET WITH TWO TURNS: Not assessed/no information CODE: - INDICATE THE TYPE OF WHEELCHAIR/SCOOTER USED: CODE: EXPR WHEEL 150 FEET: Not assessed/no information CODE: - INDICATE THE TYPE OF WHEELCHAIR/SCOOTER USED: CODE: EXPR BLADDER AND BOWEL: H350. BLADDER CONTINENCE (3-DAY ASSESSMENT PERIOD): Stress incontinence only CODE: 1 H400. BOWEL CONTINENCE (3-DAY ASSESSMENT PERIOD): Always continent CODE: 0 SIGNATURE PANEL: The following modified sections: 1. [id number] Admission Performance, 1. [id number] Admission Performance, 1. [id number] Admission Performance, 1. [id number] Admission Performance, 1. [id number] Admission Performance, Code, H350. Bladder Continence (3-day assessment period), H400. Bowel Continence (3-day assessment p eriod), H350. Bladder Continence (3-day assessment period) were [electronically] signed by Anup Cam on TueJun 28 2019 10:41:07 GMT-0500 (Central Daylight Time)
--- NOTE | 2019-06-29 02:01 | FAST ---
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 Bimal Carpio M.D. ADMISSION DIAGNOSIS: - Debility 16 - Debility (16) Acute on Chronic CHF. ACUTE ENCEPHALOPATHY RELATED TO UTI. ROLL LEFT AND RIGHT: ROLL LEFT AND RIGHT - STEP 1: Does the patient complete the activity by him/herself with no assistance (physical, verbal/nonverbal cueing, setup/clean-up)? No. ROLL LEFT AND RIGHT - STEP 2: Does the patient need only setup/clean-up assistance from one helper? Yes. 1. [id number] ADMISSION PERFORMANCE: Setup or clean-up assistance CODE: 05 SIT TO LYING: SIT TO LYING - STEP 1: Does the patient complete the activity by him/herself with no assistance (physical, verbal/nonverbal cueing, setup/clean-up)? No. SIT TO LYING - STEP 2: Does the patient need only setup/clean-up assistance from one helper? No. SIT TO LYING - STEP 3: Does the patient need only verbal/nonverbal cueing or touching/steadying/contact guard assistance fro m one helper? No. SIT TO LYING - STEP 4: Does the patient need physical assistance - for example lifting or trunk support from one helper - wi th the helper providing less than half of the effort? Yes. 1. [id number] ADMISSION PERFORMANCE: Partial/moderate assistance CODE: 03 LYING TO SITTING: LYING TO SITTING ON SIDE OF BED - STEP 1: Does the patient complete the activity by him/herself with no assistance (physical, verbal/nonverbal cueing, setup/clean-up)? No. LYING TO SITTING ON SIDE OF BED - STEP 2: Does the patient need only setup/clean-up assistance from one helper? Yes. 1. [id number] ADMISSION PERFORMANCE: Setup or clean-up assistance CODE: 05 SIT TO STAND: SIT TO STAND - STEP 1: Does the patient complete the activity by him/herself with no assistance (physical, verbal/nonverbal cueing, setup/clean-up)? No. SIT TO STAND - STEP 2: Does the patient need only setup/clean-up assistance from one helper? Yes. 1. [id number] ADMISSION PERFORMANCE: Setup or clean-up assistance CODE: 05 TRANSFERS: BED, CHAIR: CHAIR/[id number] TRANSFER - STEP 1: Does the patient complete the activity by him/herself with no assistance (physical, verbal/nonverbal cueing, setup/clean-up)? No. CHAIR/KBA-JY-[id number] TRANSFER - STEP 2: Does the patient need only setup/clean-up assistance from one helper? No. CHAIR/[id number] TRANSFER - STEP 3: Does the patient need only verbal/nonverbal cueing or touching/steadying/contact guard assistance fro m one helper? Yes. 1. [id number] ADMISSION PERFORMANCE: Supervision or touching assistance CODE: 04 TRANSFER TOILET: TOILET TRANSFER - STEP 1: Does the patient complete the activity by him/herself with no assistance (physical, verbal/nonverbal cueing, setup/clean-up)? No. TOILET TRANSFER - STEP 2: Does the patient need only setup/clean-up assistance from one helper? Yes. 1. [id number] ADMISSION PERFORMANCE: Setup or clean-up assistance CODE: 05 TRANSFERS: CAR: Not attempted due to medical condition or safety concerns CODE: 88 WALK 10 FEET: WALK 10 FEET - STEP 1: Does the patient complete the activity by him/herself with no assistance (physical, verbal/nonverbal cueing, setup/clean-up)? No. WALK 10 FEET - STEP 2: Does the patient need only setup/clean-up assistance from one helper? No. WALK 10 FEET - STEP 3: Does the patient need only verbal/nonverbal cueing or touching/steadying/contact guard assistance fro m one helper? Yes. 1. [id number] ADMISSION PERFORMANCE: Supervision or touching assistance CODE: 04 WALK 50 FEET: WALK 50 FEET - STEP 1: Does the patient complete the activity by him/herself with no assistance (physical, verbal/nonverbal cueing, setup/clean-up)? No. WALK 50 FEET - STEP 2: Does the patient need only setup/clean-up assistance from one helper? No. WALK 50 FEET - STEP 3: Does the patient need only verbal/nonverbal cueing or touching/steadying/contact guard assistance fro m one helper? Yes. 1. [id number] ADMISSION PERFORMANCE: Supervision or touching assistance CODE: WALK 150 FEET: WALK 150 FEET - STEP 1: Does the patient complete the activity by him/herself with no assistance (physical, verbal/nonverbal cueing, setup/clean-up)? No. WALK 150 FEET - STEP 2: Does the patient need only setup/clean-up assistance from one helper? No. WALK 150 FEET - STEP 3: Does the patient need only verbal/nonverbal cueing or touching/steadying/contact guard assistance fro m one helper? Yes. 1. [id number] ADMISSION PERFORMANCE: Supervision or touching assistance CODE: WALK 10 FEET UNEVEN: Not attempted due to medical condition or safety concerns CODE: 88 1 STEP (CURB): Not attempted due to medical condition or safety concerns 1 STEP CURB - STEP 1: Does the patient complete the activity by him/herself with no assistance (physical, verbal/nonverbal cueing, setup/clean-up)? No. 1 STEP CURB - STEP 2: Does the patient need only setup/clean-up assistance from one helper? No. 1 STEP CURB - STEP 3: Does the patient need only verbal/nonverbal cueing or touching/steadying/contact guard assistance fro m one helper? Yes. 1. [id number] ADMISSION PERFORMANCE: Supervision or touching assistance CODE: 04 4 STEPS: 4 STEPS - STEP 1: Does the patient complete the activity by him/herself with no assistance (physical, verbal/nonverbal cueing, setup/clean-up)? No. 4 STEPS - STEP 2: Does the patient need only setup/clean-up assistance from one helper? No. 4 STEPS - STEP 3: Does the patient need only verbal/nonverbal cueing or touching/steadying/contact guard assistance fro m one helper? Yes. 1. [id number] ADMISSION PERFORMANCE: Supervision or touching assistance CODE: 04 12 STEPS: Not attempted due to medical condition or safety concerns CODE: 88 PICKING UP OBJECT: Not attempted due to medical condition or safety concerns CODE: 88 DOES THE PATIENT USE A WHEELCHAIR/SCOOTER? Q1. DOES THE PATIENT USE A WHEELCHAIR/SCOOTER?: Yes CODE: 1 WHEEL 50 FEET WITH TWO TURNS: WHEEL 50 FEET WITH TWO TURNS - STEP 1: Does the patient complete the activity by him/herself with no assistance (physical, verbal/nonverbal cueing, setup/clean-up)? No. WHEEL 50 FEET WITH TWO TURNS - STEP 2: Does the patient need only setup/clean-up assistance from one helper? No. WHEEL 50 FEET WITH TWO TURNS - STEP 3: Does the patient need only verbal/nonverbal cueing or touching/steadying/contact guard assistance fro m one helper? No. WHEEL 50 FEET WITH TWO TURNS - STEP 4: Does the patient need physical assistance - for example lifting or trunk support from one helper - wi th the helper providing less than half of the effort? Yes. 1. [id number] ADMISSION PERFORMANCE: Partial/moderate assistance CODE: 03 INDICATE THE TYPE OF WHEELCHAIR/SCOOTER USED: RR1. INDICATE THE TYPE OF WHEELCHAIR/SCOOTER USED.: Manual CODE: 1 WHEEL 150 FEET: WHEEL 150 FEET - STEP 1: Does the patient complete the activity by him/herself with no assistance (physical, verbal/nonverbal cueing, setup/clean-up)? No. WHEEL 150 FEET - STEP 2: Does the patient need only setup/clean-up assistance from one helper? No. WHEEL 150 FEET - STEP 3: Does the patient need only verbal/nonverbal cueing or touching/steadying/contact guard assistance fro m one helper? Yes. 1. [id number] ADMISSION PERFORMANCE: Supervision or touching assistance CODE: 04 INDICATE THE TYPE OF WHEELCHAIR/SCOOTER USED: SS1. INDICATE THE TYPE OF WHEELCHAIR/SCOOTER USED.: Manual CODE: 1 BLADDER AND BOWEL: CODE: EXPR CODE: EXPR SIGNATURE PANEL: The following modified sections: 1. [id number] Admission Performance, 1. [id number] Admission Performance, 1. [id number] Admission Performance, 1. GO1511H Admission Performance, 1. DJ7699K Admission Performance, 1. OF2722P Admission Performance, 1. DW1301U Admission Performance, 1. RH3232T Admission Performance , 1. [id number] Admission Performance, 1. BS3622V Admission Performance, 1. [id number] Admission Performanc e, 1. BH2050M Admission Performance, Q1. Does the patient use a wheelchair/scooter?, 1. ZB1643G Admis jomar Performance, RR1. Indicate the type of wheelchair/scooter used., 1. ST2303N Admission Performanc e, Code, SS1. Indicate the type of wheelchair/scooter used. were [electronically] signed by Karen mojica PTA on TueJun 28 2019 16:11:11 GMT-0500 (Central Daylight Time)
[2019-06-29] MEDS: carvediloL 3.125 MG TAB PO SCH ×2 (05:27→17:31)
[2019-06-29] MEDS: LEVOTHYROXINE SOD 0.05 MG TABLET PO SCH (05:28)
[2019-06-29] MEDS: ENOXAPARIN 40 MG/0.4 ML SQ SCH (07:41)
[2019-06-29] MEDS: SODIUM CHLORIDE 0.9% 10ML INJ IV SCH ×2 (08:00→21:42)
[2019-06-29] MEDS ORDERED: Pantoprazole (granules) 40 MG/BLIST PACKET PO SCH (08:00)
[2019-06-29] MEDS: ZINC OXIDE 20% OINTMENT 60gm TOP SCH ×2 (08:00→21:34)
[2019-06-29] MEDS: PROMOD 30 ML DOSE PO SCH ×2 (10:00→20:00)
[2019-06-29] MEDS: FUROSEMIDE 20 MG TABLET PO SCH ×2 (10:20→15:39)
[2019-06-29] MEDS: SODIUM CHLORIDE 1 GM TAB PO SCH ×3 (10:22→21:36)
--- NOTE | 2019-06-29 15:18 | FAST ---
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 Bimal Carpio M.D. ADMISSION DIAGNOSIS: - Debility 16 - Debility (16) Acute on Chronic CHF. ACUTE ENCEPHALOPATHY RELATED TO UTI. EATING: Not assessed/no information CODE: - ORAL HYGIENE: ORAL HYGIENE - STEP 1: Does the patient complete the activity by him/herself with no assistance (physical, verbal/nonverbal cueing, setup/clean-up)? No. ORAL HYGIENE - STEP 2: Does the patient need only setup/clean-up assistance from one helper? No. ORAL HYGIENE - STEP 3: Does the patient need only verbal/nonverbal cueing or touching/steadying/contact guard assistance fro m one helper? Yes. 1. [id number] ADMISSION PERFORMANCE: Supervision or touching assistance CODE: 04 TOILETING HYGIENE: Not assessed/no information CODE: - BATHING: SHOWER/BATHE SELF - STEP 1: Does the patient complete the activity by him/herself with no assistance (physical, verbal/nonverbal cueing, setup/clean-up)? No. SHOWER/BATHE SELF - STEP 2: Does the patient need only setup/clean-up assistance from one helper? No. SHOWER/BATHE SELF - STEP 3: Does the patient need only verbal/nonverbal cueing or touching/steadying/contact guard assistance fro m one helper? Yes. 1. [id number] ADMISSION PERFORMANCE: Supervision or touching assistance CODE: 04 DRESSING - UPPER BODY: DRESSING - UPPER BODY - STEP 1: Does the patient complete the activity by him/herself with no assistance (physical, verbal/nonverbal cueing, setup/clean-up)? No. DRESSING - UPPER BODY - STEP 2: Does the patient need only setup/clean-up assistance from one helper? No. DRESSING - UPPER BODY - STEP 3: Does the patient need only verbal/nonverbal cueing or touching/steadying/contact guard assistance fro m one helper? No. DRESSING - UPPER BODY - STEP 4: Does the patient need physical assistance - for example lifting or trunk support from one helper - wi th the helper providing less than half of the effort? No. DRESSING - UPPER BODY - STEP 5: Does the patient need physical assistance - for example lifting or trunk support from one helper - wi th the helper providing more than half of the effort? Yes. 1. [id number] ADMISSION PERFORMANCE: Substantial/maximal assistance CODE: 02 DRESSING - LOWER BODY: DRESSING - LOWER BODY - STEP 1: Does the patient complete the activity by him/herself with no assistance (physical, verbal/nonverbal cueing, setup/clean-up)? No. DRESSING - LOWER BODY - STEP 2: Does the patient need only setup/clean-up assistance from one helper? No. DRESSING - LOWER BODY - STEP 3: Does the patient need only verbal/nonverbal cueing or touching/steadying/contact guard assistance fro m one helper? No. DRESSING - LOWER BODY - STEP 4: Does the patient need physical assistance - for example lifting or trunk support from one helper - wi th the helper providing less than half of the effort? No. DRESSING - LOWER BODY - STEP 5: Does the patient need physical assistance - for example lifting or trunk support from one helper - wi th the helper providing more than half of the effort? Yes. 1. [id number] ADMISSION PERFORMANCE: Substantial/maximal assistance CODE: 02 PUTTING ON/TAKING OFF FOOTWEAR: FOOTWEAR - STEP 1: Does the patient complete the activity by him/herself with no assistance (physical, verbal/nonverbal cueing, setup/clean-up)? No. FOOTWEAR - STEP 2: Does the patient need only setup/clean-up assistance from one helper? No. FOOTWEAR - STEP 3: Does the patient need only verbal/nonverbal cueing or touching/steadying/contact guard assistance fro m one helper? No. FOOTWEAR - STEP 4: Does the patient need physical assistance - for example lifting or trunk support from one helper - wi th the helper providing less than half of the effort? No. FOOTWEAR - STEP 5: Does the patient need physical assistance - for example lifting or trunk support from one helper - wi th the helper providing more than half of the effort? Yes. 1. [id number] ADMISSION PERFORMANCE: Substantial/maximal assistance CODE: 02 DOES THE PATIENT USE A WHEELCHAIR/SCOOTER? CODE: EXPR INDICATE THE TYPE OF WHEELCHAIR/SCOOTER USED: CODE: EXPR INDICATE THE TYPE OF WHEELCHAIR/SCOOTER USED: CODE: EXPR BLADDER AND BOWEL: CODE: EXPR CODE: EXPR SIGNATURE PANEL: The following modified sections: 1. [id number] Admission Performance, 1. [id number] Admission Performance, 1. WT2159b Admission Performance, 1. RU8330g Admission Performance, 1. OC3086g Admission Performance were [electronically] signed by LAWRENCE Oliveros on TueJun 29 2019 15:18:30 GMT-0500 (Central Daylight Time)
[2019-06-29] MEDS ORDERED: FAMOTIDINE 20 MG TAB PO SCH (20:00)
[2019-06-29] MEDS: ENSURE ENLIVE 237 ML CAN PO SCH (20:00)
--- NOTE | 2019-06-30 02:20 | FAST ---
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 Bimal Carpio M.D. ADMISSION DIAGNOSIS: - Debility 16 - Debility (16) Acute on Chronic CHF. ACUTE ENCEPHALOPATHY RELATED TO UTI. EATING: Not assessed/no information CODE: - ORAL HYGIENE: ORAL HYGIENE - STEP 1: Does the patient complete the activity by him/herself with no assistance (physical, verbal/nonverbal cueing, setup/clean-up)? No. ORAL HYGIENE - STEP 2: Does the patient need only setup/clean-up assistance from one helper? No. ORAL HYGIENE - STEP 3: Does the patient need only verbal/nonverbal cueing or touching/steadying/contact guard assistance fro m one helper? Yes. 1. [id number] ADMISSION PERFORMANCE: Supervision or touching assistance CODE: 04 TOILETING HYGIENE: TOILETING HYGIENE - STEP 1: Does the patient complete the activity by him/herself with no assistance (physical, verbal/nonverbal cueing, setup/clean-up)? No. TOILETING HYGIENE - STEP 2: Does the patient need only setup/clean-up assistance from one helper? No. TOILETING HYGIENE - STEP 3: Does the patient need only verbal/nonverbal cueing or touching/steadying/contact guard assistance fro m one helper? Yes. 1. [id number] ADMISSION PERFORMANCE: Supervision or touching assistance CODE: 04 BATHING: Not assessed/no information CODE: - DRESSING - UPPER BODY: Not assessed/no information CODE: - DRESSING - LOWER BODY: Not assessed/no information CODE: - PUTTING ON/TAKING OFF FOOTWEAR: Not assessed/no information CODE: - ROLL LEFT AND RIGHT: ROLL LEFT AND RIGHT - STEP 1: Does the patient complete the activity by him/herself with no assistance (physical, verbal/nonverbal cueing, setup/clean-up)? No. ROLL LEFT AND RIGHT - STEP 2: Does the patient need only setup/clean-up assistance from one helper? No. ROLL LEFT AND RIGHT - STEP 3: Does the patient need only verbal/nonverbal cueing or touching/steadying/contact guard assistance fro m one helper? Yes. 1. [id number] ADMISSION PERFORMANCE: Supervision or touching assistance CODE: 04 SIT TO LYING: SIT TO LYING - STEP 1: Does the patient complete the activity by him/herself with no assistance (physical, verbal/nonverbal cueing, setup/clean-up)? No. SIT TO LYING - STEP 2: Does the patient need only setup/clean-up assistance from one helper? No. SIT TO LYING - STEP 3: Does the patient need only verbal/nonverbal cueing or touching/steadying/contact guard assistance fro m one helper? Yes. 1. [id number] ADMISSION PERFORMANCE: Supervision or touching assistance CODE: 04 LYING TO SITTING: LYING TO SITTING ON SIDE OF BED - STEP 1: Does the patient complete the activity by him/herself with no assistance (physical, verbal/nonverbal cueing, setup/clean-up)? No. LYING TO SITTING ON SIDE OF BED - STEP 2: Does the patient need only setup/clean-up assistance from one helper? No. LYING TO SITTING ON SIDE OF BED - STEP 3: Does the patient need only verbal/nonverbal cueing or touching/steadying/contact guard assistance fro m one helper? Yes. 1. [id number] ADMISSION PERFORMANCE: Supervision or touching assistance CODE: 04 SIT TO STAND: SIT TO STAND - STEP 1: Does the patient complete the activity by him/herself with no assistance (physical, verbal/nonverbal cueing, setup/clean-up)? No. SIT TO STAND - STEP 2: Does the patient need only setup/clean-up assistance from one helper? No. SIT TO STAND - STEP 3: Does the patient need only verbal/nonverbal cueing or touching/steadying/contact guard assistance fro m one helper? Yes. 1. [id number] ADMISSION PERFORMANCE: Supervision or touching assistance CODE: 04 TRANSFERS: BED, CHAIR: CHAIR/[id number] TRANSFER - STEP 1: Does the patient complete the activity by him/herself with no assistance (physical, verbal/nonverbal cueing, setup/clean-up)? No. CHAIR/OTT-NV-PYIVK TRANSFER - STEP 2: Does the patient need only setup/clean-up assistance from one helper? No. CHAIR/WRN-[id number]-OPKFS TRANSFER - STEP 3: Does the patient need only verbal/nonverbal cueing or touching/steadying/contact guard assistance fro m one helper? Yes. 1. [id number] ADMISSION PERFORMANCE: Supervision or touching assistance CODE: 04 TRANSFER TOILET: TOILET TRANSFER - STEP 1: Does the patient complete the activity by him/herself with no assistance (physical, verbal/nonverbal cueing, setup/clean-up)? No. TOILET TRANSFER - STEP 2: Does the patient need only setup/clean-up assistance from one helper? No. TOILET TRANSFER - STEP 3: Does the patient need only verbal/nonverbal cueing or touching/steadying/contact guard assistance fro m one helper? Yes. 1. [id number] ADMISSION PERFORMANCE: Supervision or touching assistance CODE: 04 TRANSFERS: CAR: Not assessed/no information CODE: - WALK 10 FEET: Not assessed/no information CODE: - 1 STEP (CURB): Not assessed/no information CODE: - PICKING UP OBJECT: Not assessed/no information CODE: - DOES THE PATIENT USE A WHEELCHAIR/SCOOTER? CODE: EXPR WHEEL 50 FEET WITH TWO TURNS: Not assessed/no information CODE: - INDICATE THE TYPE OF WHEELCHAIR/SCOOTER USED: CODE: EXPR WHEEL 150 FEET: Not assessed/no information CODE: - INDICATE THE TYPE OF WHEELCHAIR/SCOOTER USED: CODE: EXPR BLADDER AND BOWEL: H350. BLADDER CONTINENCE (3-DAY ASSESSMENT PERIOD): Always continent (no documented incontinence) CODE: 0 H400. BOWEL CONTINENCE (3-DAY ASSESSMENT PERIOD): Always continent CODE: 0
[2019-06-30] MEDS: carvediloL 3.125 MG TAB PO SCH ×2 (05:05→17:10)
[2019-06-30] MEDS: LEVOTHYROXINE SOD 0.05 MG TABLET PO SCH (05:10)
[2019-06-30] MEDS: ENOXAPARIN 40 MG/0.4 ML SQ SCH (06:59)
[2019-06-30] MEDS: SODIUM CHLORIDE 1 GM TAB PO SCH ×3 (07:00→20:12)
[2019-06-30] MEDS: FAMOTIDINE 20 MG TAB PO SCH ×2 (07:00→20:12)
[2019-06-30] MEDS: FUROSEMIDE 20 MG TABLET PO SCH ×2 (07:00→15:06)
[2019-06-30] MEDS: ENSURE ENLIVE 237 ML CAN PO SCH ×2 (07:01→20:00)
[2019-06-30] MEDS: SODIUM CHLORIDE 0.9% 10ML INJ IV SCH ×2 (07:01→20:00)
[2019-06-30] MEDS: PROMOD 30 ML DOSE PO SCH ×2 (07:01→20:00)
[2019-06-30] MEDS: ZINC OXIDE 20% OINTMENT 60gm TOP SCH ×2 (07:02→20:12)
[2019-07-01] MEDS: carvediloL 3.125 MG TAB PO SCH ×2 (05:35→17:40)
[2019-07-01] MEDS: LEVOTHYROXINE SOD 0.05 MG TABLET PO SCH (05:35)
[2019-07-01] MEDS: FAMOTIDINE 20 MG TAB PO SCH ×2 (07:15→19:30)
[2019-07-01] MEDS: ZINC OXIDE 20% OINTMENT 60gm TOP SCH ×2 (07:16→19:31)
[2019-07-01] MEDS: FUROSEMIDE 20 MG TABLET PO SCH ×2 (07:16→17:41)
[2019-07-01] MEDS: ENOXAPARIN 40 MG/0.4 ML SQ SCH (07:17)
[2019-07-01] MEDS: ENSURE ENLIVE 237 ML CAN PO SCH ×2 (07:17→19:30)
[2019-07-01] MEDS: PROMOD 30 ML DOSE PO SCH ×2 (07:17→19:30)
[2019-07-01] MEDS: SODIUM CHLORIDE 0.9% 10ML INJ IV SCH ×2 (07:17→19:30)
[2019-07-01] MEDS: SODIUM CHLORIDE 1 GM TAB PO SCH ×3 (07:17→20:44)
[2019-07-02] MEDS: carvediloL 3.125 MG TAB PO SCH ×2 (05:31→17:18)
[2019-07-02] MEDS: LEVOTHYROXINE SOD 0.05 MG TABLET PO SCH (05:31)
[2019-07-02] MEDS: SODIUM CHLORIDE 0.9% 10ML INJ IV SCH ×2 (07:08→21:15)
[2019-07-02] MEDS: ENOXAPARIN 40 MG/0.4 ML SQ SCH (07:09)
[2019-07-02] MEDS: PROMOD 30 ML DOSE PO SCH ×2 (07:10→21:15)
[2019-07-02] MEDS: FUROSEMIDE 20 MG TABLET PO SCH ×2 (07:10→17:18)
[2019-07-02] MEDS: FAMOTIDINE 20 MG TAB PO SCH ×2 (07:11→21:14)
[2019-07-02] MEDS: ZINC OXIDE 20% OINTMENT 60gm TOP SCH ×2 (07:12→21:14)
[2019-07-02] MEDS: SODIUM CHLORIDE 1 GM TAB PO SCH ×3 (07:12→21:14)
[2019-07-02] MEDS: ENSURE ENLIVE 237 ML CAN PO SCH ×2 (07:12→20:00)
--- NOTE | 2019-07-02 15:04 | FAST ---
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 Bimal Carpio M.D. ADMISSION DIAGNOSIS: - Debility 16 - Debility (16) Acute on Chronic CHF. ACUTE ENCEPHALOPATHY RELATED TO UTI. EATING: Not assessed/no information CODE: - ORAL HYGIENE: ORAL HYGIENE - STEP 1: Does the patient complete the activity by him/herself with no assistance (physical, verbal/nonverbal cueing, setup/clean-up)? No. ORAL HYGIENE - STEP 2: Does the patient need only setup/clean-up assistance from one helper? No. ORAL HYGIENE - STEP 3: Does the patient need only verbal/nonverbal cueing or touching/steadying/contact guard assistance fro m one helper? Yes. 1. [id number] ADMISSION PERFORMANCE: Supervision or touching assistance CODE: 04 TOILETING HYGIENE: Not assessed/no information CODE: - BATHING: SHOWER/BATHE SELF - STEP 1: Does the patient complete the activity by him/herself with no assistance (physical, verbal/nonverbal cueing, setup/clean-up)? No. SHOWER/BATHE SELF - STEP 2: Does the patient need only setup/clean-up assistance from one helper? No. SHOWER/BATHE SELF - STEP 3: Does the patient need only verbal/nonverbal cueing or touching/steadying/contact guard assistance fro m one helper? Yes. 1. [id number] ADMISSION PERFORMANCE: Supervision or touching assistance CODE: 04 DRESSING - UPPER BODY: DRESSING - UPPER BODY - STEP 1: Does the patient complete the activity by him/herself with no assistance (physical, verbal/nonverbal cueing, setup/clean-up)? No. DRESSING - UPPER BODY - STEP 2: Does the patient need only setup/clean-up assistance from one helper? No. DRESSING - UPPER BODY - STEP 3: Does the patient need only verbal/nonverbal cueing or touching/steadying/contact guard assistance fro m one helper? No. DRESSING - UPPER BODY - STEP 4: Does the patient need physical assistance - for example lifting or trunk support from one helper - wi th the helper providing less than half of the effort? No. DRESSING - UPPER BODY - STEP 5: Does the patient need physical assistance - for example lifting or trunk support from one helper - wi th the helper providing more than half of the effort? Yes. 1. [id number] ADMISSION PERFORMANCE: Substantial/maximal assistance CODE: 02 DRESSING - LOWER BODY: DRESSING - LOWER BODY - STEP 1: Does the patient complete the activity by him/herself with no assistance (physical, verbal/nonverbal cueing, setup/clean-up)? No. DRESSING - LOWER BODY - STEP 2: Does the patient need only setup/clean-up assistance from one helper? No. DRESSING - LOWER BODY - STEP 3: Does the patient need only verbal/nonverbal cueing or touching/steadying/contact guard assistance fro m one helper? No. DRESSING - LOWER BODY - STEP 4: Does the patient need physical assistance - for example lifting or trunk support from one helper - wi th the helper providing less than half of the effort? No. DRESSING - LOWER BODY - STEP 5: Does the patient need physical assistance - for example lifting or trunk support from one helper - wi th the helper providing more than half of the effort? Yes. 1. [id number] ADMISSION PERFORMANCE: Substantial/maximal assistance CODE: 02 PUTTING ON/TAKING OFF FOOTWEAR: FOOTWEAR - STEP 1: Does the patient complete the activity by him/herself with no assistance (physical, verbal/nonverbal cueing, setup/clean-up)? No. FOOTWEAR - STEP 2: Does the patient need only setup/clean-up assistance from one helper? No. FOOTWEAR - STEP 3: Does the patient need only verbal/nonverbal cueing or touching/steadying/contact guard assistance fro m one helper? No. FOOTWEAR - STEP 4: Does the patient need physical assistance - for example lifting or trunk support from one helper - wi th the helper providing less than half of the effort? No. FOOTWEAR - STEP 5: Does the patient need physical assistance - for example lifting or trunk support from one helper - wi th the helper providing more than half of the effort? Yes. 1. [id number] ADMISSION PERFORMANCE: Substantial/maximal assistance CODE: 02 DOES THE PATIENT USE A WHEELCHAIR/SCOOTER? CODE: EXPR INDICATE THE TYPE OF WHEELCHAIR/SCOOTER USED: CODE: EXPR INDICATE THE TYPE OF WHEELCHAIR/SCOOTER USED: CODE: EXPR BLADDER AND BOWEL: CODE: EXPR CODE: EXPR SIGNATURE PANEL: The following modified sections: 1. [id number] Admission Performance, 1. [id number] Admission Performance, 1. [id number] Admission Performance, 1. [id number] Admission Performance, 1. [id number] Admission Performance were [electronically] signed by LAWRENCE Oliveros on TueJul 02 2019 15:03:36 GMT-0500 (Central Daylight Time)
--- NOTE | 2019-07-02 18:01 | R.PN ---
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 Pt denied any Shortness of Breath. He had no complaints. He ambulated 1250' total with contact guard assistance using a rolling walker. His UA is negative. VITAL SIGNS Temperature: 97.6 F SBP/DBP: 182/88 Pulse: 68 Resp: 16 MEDICATION ALLERGIES: No Known Drug Allergies (NKDA) ENVIRONMENTAL ALLERGIES: None Known - Substance Allergies None Known - Other Allergies None Known NURSING: - Shower allowing shower ACTIVITIES OOB only with supervision THERAPIES: - Dietary and Nutrition Adequate Nutrition. Nutritional Education. Nutritional Supplements. - Speech Therapy Dysphagia Therapy. PHYSICAL EXAM - Gen Alert and awake Lying in bed No apparent distress Oriented to: person, time, and place - Skin Left head craniotomy site is intact Normacephalic Scalp surgical sites intact - Eyes No abnormalities - ENMT No abnormalities - Neck No abnormalities No cervical adenopathy - CVS RRR - Chest No abnormalities - Resp Decreased breath sounds in both lower lobes - Abd Soft - GI Non distended Deferred - No abnormalities - Ext No significant edema - MSK 4+/5 weakness in right upper and lower extremity - Neuro 4/5 strength right upper and lower extremities. - Psych Mild depression. ASSESSMENT: Pt. is a 89 yo Right-handed white male.On 06/19/2019 he was admitted to [facility] with diagnosis Acute on Chronic CHF.His impairment category is Debility 16 - Debility (16).Pre-morbidly, Pt. was independent/mod-I in Locomotion, Safety Awareness, Social Cognition, Balance, Sphincter Contr ol, Self-Care, Communication, and Endurance; and he had good Locomotion, Safety Awareness, Balance, S ocial Cognition, Transfers Control, Self-Care, Communication, Sphincter Control, and Endurance.Curren tljarrell, he has deficits of Balance, Social Cognition, Communication, and Transfers Control.Pt. is now re ferred to [facility] for acute in-patient rehabilitation in order to maximize patient's functional independence in activities of daily living, strength, ROM, and mobility.- Rehab Goal Patient has realistic goal of being discharged at assistance level 6-Amadou to reside at Home with Fam phillip/Relatives. MDM/PLAN: - Physical Therapy Gait dysfunction - to improve, our physical therapists will perform initial evaluation of pt's statu s upon admission and devise an individualized program for Gait Training, and Wheel Chair mobility Inability to transfer - to improve, our physical therapists will perform initial evaluation of pt's status upon admission and devise an individualized program for Bed mobility Need for home safety evaluation - to improve, our physical therapists will perform initial evaluatio n of pt's status upon admission and devise an individualized program for Home Evaluation Need in caregiver upon discharge - to improve, our physical therapists will perform initial evaluati on of pt's status upon admission and devise an individualized program for Caregiver Training Edema - to improve, our physical therapists will perform initial evaluation of pt's status upon admi ssion and devise an individualized program for Elevation Training, and Lymphedema Therapy New precaution - to improve, our physical therapists will perform initial evaluation of pt's status upon admission and devise an individualized program for Patient precaution education Poor balance - to improve, our physical therapists will perform initial evaluation of pt's status up on admission and devise an individualized program for Balance Training Weakness - to improve, our physical therapists will perform initial evaluation of pt's status upon a dmission and devise an individualized program for Aquatic Therapy, Neuromuscular Reeducation, and Str engthening Achieving independence - to improve, our physical therapists will perform initial evaluation of pt's status upon admission and devise an individualized program for Community Reintegration Activities - Occupational Therapy Cognitive deficits - to improve, our occupation therapists will perform initial evaluation of pt's s tatus upon admission and devise an individualized program for Cognition - orientation Need for residential care officer - to improve, our occupation therapists will perform initial evaluation of pt's status upon admission and devise an individualized program for Caregiver Training Weakness - to improve, our occupation therapists will perform initial evaluation of pt's status upon admission and devise an individualized program for Aquatic Therapy, Balance, Endurance, UE ROM, and UE strengthening - Other See attached MAR (Medication Administration Record) - Diet Type Continue Regular - Diet - Liquid Texture Continue Thin - Tube Feed Continue N/A - Diet - Solid Texture Continue Regular Continue Mechanical Soft - Shower allowing shower FUNCTIONAL STATUS: UPDATED AT WEEKLY TEAM CONFERENCE - Bladder Same accident frequency: 7-Ind - No accidents in the past 7 days - Bowel Same accident frequency: 7-Ind - No accidents in the past 7 days - Walking Same score based on distance walked: 0(N/A) Same score based on distance walked: 2(50-149ft) - Wheelchair Same score based on distance traveled: 0(N/A) FUNCTIONAL STATUS: - Self-Care A. Eating sup B. Grooming sup C. Bathing Peace D. Dressing - Upper Peace E. Dressing - Lower modA F. Toileting sup - Sphincter Control G. Bladder control sup H. Bowel control sup - Transfers Control I. Bed/Chair/Wheelchair Peace J. Toilet Peace K. Tub/Shower modA - Locomotion L. Walk/Wheelchair (B) sup M. Stairs ADNO - Communication N. Comprehension (B) sup O. Expression (B) sup - Social Cognition P. Social Interaction Amadou Q. Problem Solving sup R. Memory sup - Endurance Fair - Balance Fair - Safety Awareness Poor QI SCORES: - Self-Care A. Eating 04-Supervision or touching assistance B. Oral hygiene 05-Setup or clean-up assistance C. Toileting hygiene 02-Substantial/maximal assistance E. Shower/bathe self 03-Partial/moderate assistance F. Upper body dressing 03-Partial/moderate assistance G. Lower body dressing 02-Substantial/maximal assistance H. Putting on/taking off footwear 88-Not attempted due to medical condition or safety concerns - Mobility K. Walk 150 feet 03-Partial/moderate assistance B. Sit to lying 03-Partial/moderate assistance C. Lying to sitting on side of bed 03-Partial/moderate assistance D. Sit to stand 03-Partial/moderate assistance E. Chair/qwk-[id number]-apsih transfer 03-Partial/moderate assistance F. Toilet transfer 03-Partial/moderate assistance G. Car transfer 88-Not attempted due to medical condition or safety concerns I. Walk 10 feet 03-Partial/moderate assistance J. Walk 50 feet with two turns 03-Partial/moderate assistance L. Walking 10 feet on uneven surfaces 88-Not attempted due to medical condition or safety concerns M. 1 step (curb) 88-Not attempted due to medical condition or safety concerns N. 4 steps 88-Not attempted due to medical condition or safety concerns O. 12 steps 03-Partial/moderate assistance P. Picking up object 03-Partial/moderate assistance R. Wheel 50 feet with two turns 88-Not attempted due to medical condition or safety concerns S. Wheel 150 feet 03-Partial/moderate assistance - Bladder and Bowel Bladder continence 0-Always continent Bowel continence 0-Always continent - Endurance Fair - Balance Fair - Safety Awareness Fair CURRENT [facility]. DEFICITS: Self-Care, Mobility, Endurance, Balance, and Safety Awareness SIGNATURE PANEL: (CDT)
[2019-07-03] MEDS: carvediloL 3.125 MG TAB PO SCH ×2 (05:27→17:24)
[2019-07-03 05:59] LABS: BUN Blood Urea Nitrogen 16 mg/dL (7-18); Bicarbonate 29 mmol/L (21-32); Glucose Level 82 mg/dL (74-106); Potassium 3.7 mmol/L (3.5-5.1); Sodium Level 141 mmol/L (136-145)
[2019-07-03] MEDS: FUROSEMIDE 20 MG TABLET PO SCH ×2 (07:02→15:10)
[2019-07-03] MEDS: SODIUM CHLORIDE 1 GM TAB PO SCH ×3 (07:02→19:20)
[2019-07-03] MEDS: LEVOTHYROXINE SOD 0.05 MG TABLET PO SCH (07:02)
[2019-07-03] MEDS: FAMOTIDINE 20 MG TAB PO SCH ×2 (07:03→19:20)
[2019-07-03] MEDS: ZINC OXIDE 20% OINTMENT 60gm TOP SCH ×2 (07:03→19:20)
[2019-07-03] MEDS: ENSURE ENLIVE 237 ML CAN PO SCH ×2 (07:03→19:18)
[2019-07-03] MEDS: PROMOD 30 ML DOSE PO SCH ×2 (07:03→19:19)
[2019-07-03] MEDS: ENOXAPARIN 40 MG/0.4 ML SQ SCH (07:03)
[2019-07-03] MEDS: SODIUM CHLORIDE 0.9% 10ML INJ IV SCH ×2 (07:04→19:19)
[2019-07-04] MEDS: carvediloL 3.125 MG TAB PO SCH ×2 (05:15→17:33)
[2019-07-04] MEDS: PROMOD 30 ML DOSE PO SCH ×2 (07:02→19:55)
[2019-07-04] MEDS: ENSURE ENLIVE 237 ML CAN PO SCH ×2 (07:02→19:57)
[2019-07-04] MEDS: LEVOTHYROXINE SOD 0.05 MG TABLET PO SCH (07:02)
[2019-07-04] MEDS: ENOXAPARIN 40 MG/0.4 ML SQ SCH (07:02)
[2019-07-04] MEDS: FAMOTIDINE 20 MG TAB PO SCH ×2 (07:02→19:55)
[2019-07-04] MEDS: SODIUM CHLORIDE 0.9% 10ML INJ IV SCH ×2 (07:03→19:56)
[2019-07-04] MEDS: FUROSEMIDE 20 MG TABLET PO SCH (07:03)
[2019-07-04] MEDS: ZINC OXIDE 20% OINTMENT 60gm TOP SCH ×2 (07:03→19:55)
[2019-07-04] MEDS: SODIUM CHLORIDE 1 GM TAB PO SCH ×3 (08:11→21:53)
--- NOTE | 2019-07-04 14:28 | FAST ---
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 Bimal Carpio M.D. ADMISSION DIAGNOSIS: - Debility 16 - Debility (16) Acute on Chronic CHF. ACUTE ENCEPHALOPATHY RELATED TO UTI. EATING: Not assessed/no information CODE: - ORAL HYGIENE: ORAL HYGIENE - STEP 1: Does the patient complete the activity by him/herself with no assistance (physical, verbal/nonverbal cueing, setup/clean-up)? No. ORAL HYGIENE - STEP 2: Does the patient need only setup/clean-up assistance from one helper? No. ORAL HYGIENE - STEP 3: Does the patient need only verbal/nonverbal cueing or touching/steadying/contact guard assistance fro m one helper? Yes. 1. [id number] ADMISSION PERFORMANCE: Supervision or touching assistance CODE: 04 TOILETING HYGIENE: Not assessed/no information CODE: - BATHING: SHOWER/BATHE SELF - STEP 1: Does the patient complete the activity by him/herself with no assistance (physical, verbal/nonverbal cueing, setup/clean-up)? No. SHOWER/BATHE SELF - STEP 2: Does the patient need only setup/clean-up assistance from one helper? No. SHOWER/BATHE SELF - STEP 3: Does the patient need only verbal/nonverbal cueing or touching/steadying/contact guard assistance fro m one helper? Yes. 1. [id number] ADMISSION PERFORMANCE: Supervision or touching assistance CODE: 04 DRESSING - UPPER BODY: DRESSING - UPPER BODY - STEP 1: Does the patient complete the activity by him/herself with no assistance (physical, verbal/nonverbal cueing, setup/clean-up)? No. DRESSING - UPPER BODY - STEP 2: Does the patient need only setup/clean-up assistance from one helper? No. DRESSING - UPPER BODY - STEP 3: Does the patient need only verbal/nonverbal cueing or touching/steadying/contact guard assistance fro m one helper? No. DRESSING - UPPER BODY - STEP 4: Does the patient need physical assistance - for example lifting or trunk support from one helper - wi th the helper providing less than half of the effort? Yes. 1. ADMISSION PERFORMANCE: Partial/moderate assistance CODE: 03 DRESSING - LOWER BODY: DRESSING - LOWER BODY - STEP 1: Does the patient complete the activity by him/herself with no assistance (physical, verbal/nonverbal cueing, setup/clean-up)? No. DRESSING - LOWER BODY - STEP 2: Does the patient need only setup/clean-up assistance from one helper? No. DRESSING - LOWER BODY - STEP 3: Does the patient need only verbal/nonverbal cueing or touching/steadying/contact guard assistance fro m one helper? No. DRESSING - LOWER BODY - STEP 4: Does the patient need physical assistance - for example lifting or trunk support from one helper - wi th the helper providing less than half of the effort? Yes. 1. ADMISSION PERFORMANCE: Partial/moderate assistance CODE: 03 PUTTING ON/TAKING OFF FOOTWEAR: FOOTWEAR - STEP 1: Does the patient complete the activity by him/herself with no assistance (physical, verbal/nonverbal cueing, setup/clean-up)? No. FOOTWEAR - STEP 2: Does the patient need only setup/clean-up assistance from one helper? No. FOOTWEAR - STEP 3: Does the patient need only verbal/nonverbal cueing or touching/steadying/contact guard assistance fro m one helper? No. FOOTWEAR - STEP 4: Does the patient need physical assistance - for example lifting or trunk support from one helper - wi th the helper providing less than half of the effort? No. FOOTWEAR - STEP 5: Does the patient need physical assistance - for example lifting or trunk support from one helper - wi th the helper providing more than half of the effort? No. FOOTWEAR - STEP 6: Does the helper provide all of the effort? OR Is the assistance of two or more helpers required to co mplete the activity? Yes. 1. ADMISSION PERFORMANCE: Dependent CODE: 01 DOES THE PATIENT USE A WHEELCHAIR/SCOOTER? CODE: EXPR INDICATE THE TYPE OF WHEELCHAIR/SCOOTER USED: CODE: EXPR INDICATE THE TYPE OF WHEELCHAIR/SCOOTER USED: CODE: EXPR BLADDER AND BOWEL: CODE: EXPR CODE: EXPR SIGNATURE PANEL: The following modified sections: 1. [id number] Admission Performance, 1. [id number] Admission Performance, 1. [id number] Admission Performance, 1. [id number] Admission Performance, 1. [id number] Admission Performance were [electronically] signed by LAWRENCE Oliveros on TueJul 04 2019 14:27:24 GMT-0500 (Central Daylight Time)
--- NOTE | 2019-07-04 16:37 | R.PN ---
ENCOUNTER DATE AND TIME: 07/04/2019 16:31 (CDT) NAME SONIA MONTANA DATE OF : 1930 DATE OF ADMISSION: 06/21/2019 19:55 ([employer]BER) Acute on Chronic CHFACUTE ENCEPHALOPATHY RELATED TO UTICHIEF COMPLAINT: Acute on chronic CHF and debility SUBJECTIVE: Pt denied any depression. Pt denied any Shortness of Breath. He had no complaints. He ambulated 500' total with standby assistance using a rolling walker. Up and down 15 steps with standby assistance. His UA is negative. VITAL SIGNS Temperature: 97.6 F SBP/DBP: 109/64 Pulse: 64 Resp: 16 MEDICATION ALLERGIES: No Known Drug Allergies (NKDA) ENVIRONMENTAL ALLERGIES: None Known - Substance Allergies None Known - Other Allergies None Known NURSING: - Shower allowing shower ACTIVITIES OOB only with supervision THERAPIES: - Dietary and Nutrition Adequate Nutrition. Nutritional Education. Nutritional Supplements. - Speech Therapy Dysphagia Therapy. PHYSICAL EXAM - Gen Alert and awake Lying in bed No apparent distress Oriented to: person, time, and place - Skin Left head craniotomy site is intact Normacephalic Scalp surgical sites intact - Eyes No abnormalities - ENMT No abnormalities - Neck No abnormalities No cervical adenopathy - CVS RRR - Chest No abnormalities - Resp Decreased breath sounds in both lower lobes - Abd Soft - GI Non distended Deferred - No abnormalities - Ext No significant edema - MSK 4+/5 weakness in right upper and lower extremity - Neuro 4/5 strength right upper and lower extremities. - Psych Mild depression. ASSESSMENT: Pt. is a 89 yo Right-handed white male.On 06/19/2019 he was admitted to [facility] with diagnosis Acute on Chronic CHF.His impairment category is Debility 16 - Debility (16).Pre-morbidly, Pt. was independent/mod-I in Locomotion, Safety Awareness, Social Cognition, Balance, Sphincter Contr ol, Self-Care, Communication, and Endurance; and he had good Locomotion, Safety Awareness, Balance, S ocial Cognition, Transfers Control, Self-Care, Communication, Sphincter Control, and Endurance.Curren tly, he has deficits of Balance, Social Cognition, Communication, and Transfers Control.Pt. is now re ferred to [facility] for acute in-patient rehabilitation in order to maximize patient's functional independence in activities of daily living, strength, ROM, and mobility.- Rehab Goal Patient has realistic goal of being discharged at assistance level 6-Amadou to reside at Home with Fam phillip/Relatives. MDM/PLAN: - Physical Therapy Gait dysfunction - to improve, our physical therapists will perform initial evaluation of pt's statu s upon admission and devise an individualized program for Gait Training, and Wheel Chair mobility Inability to transfer - to improve, our physical therapists will perform initial evaluation of pt's status upon admission and devise an individualized program for Bed mobility Need for home safety evaluation - to improve, our physical therapists will perform initial evaluatio n of pt's status upon admission and devise an individualized program for Home Evaluation Need in caregiver upon discharge - to improve, our physical therapists will perform initial evaluati on of pt's status upon admission and devise an individualized program for Caregiver Training Edema - to improve, our physical therapists will perform initial evaluation of pt's status upon admi ssion and devise an individualized program for Elevation Training, and Lymphedema Therapy New precaution - to improve, our physical therapists will perform initial evaluation of pt's status upon admission and devise an individualized program for Patient precaution education Poor balance - to improve, our physical therapists will perform initial evaluation of pt's status up on admission and devise an individualized program for Balance Training Weakness - to improve, our physical therapists will perform initial evaluation of pt's status upon a dmission and devise an individualized program for Aquatic Therapy, Neuromuscular Reeducation, and Str engthening Achieving independence - to improve, our physical therapists will perform initial evaluation of pt's status upon admission and devise an individualized program for Community Reintegration Activities - Occupational Therapy Cognitive deficits - to improve, our occupation therapists will perform initial evaluation of pt's s tatus upon admission and devise an individualized program for Cognition - orientation Need for healthcare liaison - to improve, our occupation therapists will perform initial evaluation of pt's status upon admission and devise an individualized program for Caregiver Training Weakness - to improve, our occupation therapists will perform initial evaluation of pt's status upon admission and devise an individualized program for Aquatic Therapy, Balance, Endurance, UE ROM, and UE strengthening - Other See attached MAR (Medication Administration Record) - Diet Type Continue Regular - Diet - Liquid Texture Continue Thin - Tube Feed Continue N/A - Diet - Solid Texture Continue Regular Continue Mechanical Soft - Shower allowing shower FUNCTIONAL STATUS: UPDATED AT WEEKLY TEAM CONFERENCE - Bladder Same accident frequency: 7-Ind - No accidents in the past 7 days - Bowel Same accident frequency: 7-Ind - No accidents in the past 7 days - Walking Same score based on distance walked: 0(N/A) Same score based on distance walked: 2(50-149ft) - Wheelchair Same score based on distance traveled: 0(N/A) FUNCTIONAL STATUS: - Self-Care A. Eating sup B. Grooming sup C. Bathing Peace D. Dressing - Upper Peace E. Dressing - Lower modA F. Toileting sup - Sphincter Control G. Bladder control sup H. Bowel control sup - Transfers Control I. Bed/Chair/Wheelchair Peace J. Toilet Peace K. Tub/Shower modA - Locomotion L. Walk/Wheelchair (B) sup M. Stairs ADNO - Communication N. Comprehension (B) sup O. Expression (B) sup - Social Cognition P. Social Interaction Amadou Q. Problem Solving sup R. Memory sup - Endurance Fair - Balance Fair - Safety Awareness Poor QI SCORES: - Self-Care A. Eating 04-Supervision or touching assistance B. Oral hygiene 05-Setup or clean-up assistance C. Toileting hygiene 02-Substantial/maximal assistance E. Shower/bathe self 03-Partial/moderate assistance F. Upper body dressing 03-Partial/moderate assistance G. Lower body dressing 02-Substantial/maximal assistance H. Putting on/taking off footwear 88-Not attempted due to medical condition or safety concerns - Mobility K. Walk 150 feet 03-Partial/moderate assistance B. Sit to lying 03-Partial/moderate assistance C. Lying to sitting on side of bed 03-Partial/moderate assistance D. Sit to stand 03-Partial/moderate assistance E. Chair/zdi-gj-[id number] transfer 03-Partial/moderate assistance F. Toilet transfer 03-Partial/moderate assistance G. Car transfer 88-Not attempted due to medical condition or safety concerns I. Walk 10 feet 03-Partial/moderate assistance J. Walk 50 feet with two turns 03-Partial/moderate assistance L. Walking 10 feet on uneven surfaces 88-Not attempted due to medical condition or safety concerns M. 1 step (curb) 88-Not attempted due to medical condition or safety concerns N. 4 steps 88-Not attempted due to medical condition or safety concerns O. 12 steps 03-Partial/moderate assistance P. Picking up object 03-Partial/moderate assistance R. Wheel 50 feet with two turns 88-Not attempted due to medical condition or safety concerns S. Wheel 150 feet 03-Partial/moderate assistance - Bladder and Bowel Bladder continence 0-Always continent Bowel continence 0-Always continent - Endurance Fair - Balance Fair - Safety Awareness Fair CURRENT [facility] [place]. DEFICITS: Self-Care, Mobility, Endurance, Balance, and Safety Awareness SIGNATURE PANEL: (CDT)
[2019-07-05] MEDS: LEVOTHYROXINE SOD 0.05 MG TABLET PO SCH (05:39)
[2019-07-05] MEDS: carvediloL 3.125 MG TAB PO SCH (05:39)
[2019-07-05 06:23] LABS: Absolute Lymphocytes (CBC) 1.5 K/uL (0.7-4.9); Basophils % 0.8 % (0-1.3); Hematocrit 34.1 % (39.6-49.0); Lymphocytes % 36.9 % (15.3-44.8); MPV 8.8 fL (7.6-11.3); RBC Red Blood Cell Count 3.89 M/uL (4.33-5.43)
[2019-07-05 06:50] LABS: Albumin 3.2 g/dL (3.4-5.0); Magnesium 1.8 mg/dL (1.8-2.4); Potassium 3.7 mmol/L (3.5-5.1); Prealbumin 19.7 mg/dL (20-40)
[2019-07-05] MEDS: ENOXAPARIN 40 MG/0.4 ML SQ SCH (07:04)
[2019-07-05] MEDS: ZINC OXIDE 20% OINTMENT 60gm TOP SCH (07:56)
[2019-07-05] MEDS: FAMOTIDINE 20 MG TAB PO SCH (07:56)
[2019-07-05] MEDS: SODIUM CHLORIDE 0.9% 10ML INJ IV SCH (07:57)
[2019-07-05] MEDS: PROMOD 30 ML DOSE PO SCH (07:57)
[2019-07-05] MEDS: ENSURE ENLIVE 237 ML CAN PO SCH (07:57)
[2019-07-05] MEDS: SODIUM CHLORIDE 1 GM TAB PO SCH ×2 (08:00→14:50)
[2019-07-05 08:51] VITALS: BP 154/86; TEMP 96.3
--- NOTE | 2019-07-13 15:35 | R.DS ---
FACILITY [facility] [id number] [id number] NAME BETO MONTANA ADDRESS [address] [place] [address] [address] [id number] PHONE DATE OF 1930 AGE 89 SSN# [id number] GENDER Male DEXTERITY Right-handed MARITAL STATUS RACE White ENCOUNTER PHYSICIAN Dr. Bimal Carpio M.D. REFERRING DOCTOR REFERRING FACILITY [facility] DISCHARGE DIAGNOSIS: - Debility 16 - Debility (16) Acute on Chronic CHF. ACUTE ENCEPHALOPATHY RELATED TO UTI. DISCHARGE COMORBIDITIES: - Non-Tiered Hypothyroidism, unspecified (E03.9) CHF CAD - N/A Hypertension DATE OF ADMISSION 06/21/2019 19:55 ([employer]PER) MEDICATION ALLERGIES: No Known Drug Allergies (NKDA) ENVIRONMENTAL ALLERGIES: None Known - Substance Allergies None Known - Other Allergies None Known DISCHARGE MEDICATIONS: Other- ContinueSee attached MAR (Medication Administration Record). NURSING: - Shower allowing shower ACTIVITIES OOB only with supervision THERAPIES: - Dietary and Nutrition Adequate Nutrition Nutritional Education Nutritional Supplements - Speech Therapy Dysphagia Therapy HISTORY OF PRESENT ILLNESS: Pt. is a 89 yo Right-handed white male.On 06/19/[address] [facility] with diagnosis Acute on Chronic CHF.His impairment category is Debility 16 - Debility (16).Pre-morbidly, Pt. was independent/mod-I in Locomotion, Safety Awareness, Social Cognition, Balance, Sphincter Contr ol, Self-Care, Communication, and Endurance; and he had good Locomotion, Safety Awareness, Balance, S ocial Cognition, Transfers Control, Self-Care, Communication, Sphincter Control, and Endurance.Curren tly, he has deficits of Balance, Social Cognition, Communication, and Transfers Control.Pt. is now re ferred to [facility] for acute in-patient rehabilitation in order to maximize patient's functional independence in activities of daily living, strength, ROM, and mobility.- Rehab Goal Patient has realistic goal of being discharged at assistance level 6-Amadou to reside at Home with Fam phillip/Relatives. Beto Montana is a 89 year old man who lives in a single garcia house independently with no stairs to enter his home. He was independently living at home with family assistants. This is an unfortunate gentleman with significant past medical history. 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 Patient has been admitted at [facility] and is hemodynamically stable with relatively stable labs. He is now medically stable but in need of 24 hour nursing, doctor supervision SPT). The patient is reasonably expected to participate in 3 hours of therapy a day/15 hours per week and receive care with intensive interdisciplinary approach.HOSPITAL COURSE: DIET - LIQUID TEXTURE: On 06/20/2019 Pt was changed to Thin Diet - Liquid Texture. DIET - SOLID TEXTURE: On 06/20/2019 Pt was changed to Mechanical Soft Diet - Solid Texture. On 06/21/2019 Pt was changed from Mechanical Soft Diet - Solid Texture to Regular. Pt was downgraded from Regular Diet - Solid Texture to Mechanical Soft. On 06/25/2019 Pt was changed from Mechanical Soft Diet - Solid Texture to Regular. On 06/26/2019 Pt was changed from Mechanical Soft Diet - Solid Texture to Regular. On 06/27/2019 Pt was changed from Mechanical Soft Diet - Solid Texture to Regular. On 07/02/2019 Pt was changed from Mechanical Soft Diet - Solid Texture to Regular. On 07/04/2019 Pt was changed from Mechanical Soft Diet - Solid Texture to Regular. DIET TYPE: On 06/20/2019 Pt was upgraded to Regular Diet Type. TUBE FEED: On 06/20/2019 Pt was changed to N/A Tube Feed. DISCHARGE PHYSICAL EXAM - Gen Alert and awake Lying in bed No apparent distress Oriented to: person, time, and place - Skin Left head craniotomy site is intact Normacephalic Scalp surgical sites intact - Eyes No abnormalities - ENMT No abnormalities - Neck No abnormalities No cervical adenopathy - CVS RRR - Chest No abnormalities - Resp Decreased breath sounds in both lower lobes - Abd Soft - GI Non distended Deferred - No abnormalities - Ext No significant edema - MSK 4+/5 weakness in right upper and lower extremity - Neuro 4/5 strength right upper and lower extremities. - Psych Mild depression. FUNCTIONAL STATUS: - Self-Care A. Eating 5-sup B. Grooming 5-sup C. Bathing 4-Peace D. Dressing - Upper 4-Peace E. Dressing - Lower 5-sup F. Toileting 5-sup - Sphincter Control G. Bladder control 5-sup H. Bowel control 5-sup - Transfers Control I. Bed/Chair/Wheelchair 5-sup J. Toilet 5-sup K. Tub/Shower 5-sup - Locomotion L. Walk/Wheelchair (B) 5-sup M. Stairs 5-sup - Communication N. Comprehension (B) 5-sup O. Expression (B) 5-sup - Social Cognition P. Social Interaction 6-Amadou Q. Problem Solving 5-sup R. Memory 5-sup - Endurance Fair - Balance Fair - Safety Awareness Poor QI SCORES: - Self-Care A. Eating 04-Supervision or touching assistance B. Oral hygiene 05-Setup or clean-up assistance C. Toileting hygiene 02-Substantial/maximal assistance E. Shower/bathe self 03-Partial/moderate assistance F. Upper body dressing 03-Partial/moderate assistance G. Lower body dressing 02-Substantial/maximal assistance H. Putting on/taking off footwear 88-Not attempted due to medical condition or safety concerns - Mobility K. Walk 150 feet 03-Partial/moderate assistance B. Sit to lying 03-Partial/moderate assistance C. Lying to sitting on side of bed 03-Partial/moderate assistance D. Sit to stand 03-Partial/moderate assistance E. Chair/nef-tt-bjqed transfer 03-Partial/moderate assistance F. Toilet transfer 03-Partial/moderate assistance G. Car transfer 88-Not attempted due to medical condition or safety concerns I. Walk 10 feet 03-Partial/moderate assistance J. Walk 50 feet with two turns 03-Partial/moderate assistance L. Walking 10 feet on uneven surfaces 88-Not attempted due to medical condition or safety concerns M. 1 step (curb) 88-Not attempted due to medical condition or safety concerns N. 4 steps 88-Not attempted due to medical condition or safety concerns O. 12 steps 03-Partial/moderate assistance P. Picking up object 03-Partial/moderate assistance R. Wheel 50 feet with two turns 88-Not attempted due to medical condition or safety concerns S. Wheel 150 feet 03-Partial/moderate assistance - Bladder and Bowel Bladder continence 0-Always continent Bowel continence 0-Always continent - Endurance Fair - Balance Fair - Safety Awareness Fair DISCHARGE INSTRUCTIONS: - N/A Lovenox 40 mg daily. DISCHARGE PLAN, FOLLOW UP CARE PROVISIONS: - Estimated Length of Stay (days) 13. - Consensus on plan Discharge plan has been discussed with primary caregiver. Patient/Family is in agreement with the corinne n. Primary caregiver is in agreement with the plan. - Patient/Family Goals Return home with assistance. - Planned Living Setting Upon Discharge Home, to live with Family/Relatives. Transitional Living. SIGNATURE PANEL: (CDT)
== END 2019-07-05 16:50 | disposition home or self-care (01) | DRG 292 ==
LOC: 5TH 06-21 12:04
PROVIDERS: ADMIT Psychiatry & Neurology Neurology with Special Qualifications in Child Neurology; ATTEND Psychiatry & Neurology Neurology with Special Qualifications in Child Neurology
DX: I11.0 Hypertensive heart disease with heart failure (principal); N39.0 Urinary tract infection, site not specified; R53.81 Other malaise; I50.9 Heart failure, unspecified; E03.9 Hypothyroidism, unspecified; I25.10 Atherosclerotic heart disease of native coronary artery without angina pectoris; R32 Unspecified urinary incontinence; F32.89 Other specified depressive episodes
CPT/HCPCS: 36415; 80048; 81001; 82040; 83735; 84134; 85025; 87086; 87088; 92507; 92523; 92526; 92610; 97110; 97112; 97116; 97127; 97161; 97530; 97542; J0692; J1650

== ENCOUNTER 2020-09-08 08:31 | Observation (INO) | payer OTHER ==
--- OUTSIDE RECORDS SUMMARY | 2020-09-08 08:45 | XMS REPORT | Continuity of Care Document ---
:1930 Author Organization [facility] t Address [address] [place] [address] Dr. Mck[address] [place] [address] Care Team Providers Name Role Phone Emeterio Brooke MD Attending Clinician Evelyn Sharif MD Attending Clinician Christine DALTON, In Attending Clinician Sebastian DALTON Attending Clinician Erika Musa MD Attending Clinician EVELYN SHARIF Attending Clinician Unavailable Marissa Pisano Attending Clinician Keon Fernandes Attending Clinician Parish Snyder Attending Clinician SHANIKA Attending Clinician Unavailable Dougie Husain Attending Clinician Godfrey Attending Clinician Destiny Attending Clinician Landon Nicholson Attending Clinician Emma Bunn Attending Clinician Ish Vu Attending Clinician ERIKA MUSA Admitting Clinician Unavailable Saadia Admitting Clinician Parish Snyder Admitting Clinician Enoch Admitting Clinician Emma Bunn Admitting Clinician Landon Nicholson Admitting Clinician Payers Payer Name Policy Type Policy Effective Date Expiration Date Sour ce Number MEDICAREMEDICARE A [id number] 1997 [facility] [id number] 1997-P 00:00[facility] Problems Condition Condition Condition Status Onset Resolution Last Treating Co mments Source Name Details Category Date Date Treatment Clinician Date TBI TBI Disease Active [facility] ([facility]traumatic 6 [facility] k[facility] - brain brain 00:00: Medical injury) injury) 00 Center Seizure Seizure Disease Active 2019- [facility] Dementia Dementia Disease [facility] 00 [place] Acute Acute Disease Active 2019[facility] encephalop encephalop 6-05 [facility]illa kes - athy athy 00:00: Medical 00 Center OTHER Diagnosis Active 2019-07-16 Mem oria 3- 21:55:00 l OTHER 00:00: [place] 00 Active 07/07/2019 [place] HYPONATREM Diagnosis Active 2019-05-31 Memoria IA 05-17 21:51:00 l 00:00: [place] HYPONATREM 00 [place] Active 0 [facility] BLEED Diagnosis Active 2018-042019-04-24 M emoria 2- 22:00:00 l GI BLEED 00:00: Quoc n 00 Active 04/08/2019 [place] ABNORMAL Diagnosis Active 2018-042019-04-05 M emoria LABS 2-11 22:05:00 l ABNORMAL 00:00: [place] LABS 00 Active 03/28/2019 [facility] [place] AMS Diagnosis Active 2018-042019-03-28 Mem oria 2-11 20:50:00 l AMS 00:00: Master 00 Active 03/28/2019 [facility] CHRONIC Diagnosis Active 2018-042019-04-17 Me moria HYPONATREM 2-11 21:54:00 l IA CHRONIC 00:00: Master HYPONATREM 00 IA Active 9 [facility] S06.5X0S - Diagnosis Active 2018-042019-05-24 Memoria TRAUM 05-13 10:29:00 l SUBDR HEM S06.5X0S 00:01: Her addison W/O LOSS - TRAUM 00 OF C SUBDR HEM W/O LOSS OF C Active 03/13/2019 TRINA Thao FALL Diagnosis Active 2018-042019-03-06 Mem oria 05-06 22:18:00 l FALL 00:00: [place] 00 Active 03/06/2019 [facility] SDH Diagnosis Active 2018-042019-03-22 Mem oria 05-06 22:22:00 l SDH 00:00: Mastre 00 Active 03/06/2019 [facility] SANDY Diagnosis Active 2018-042019-02-15 Memoria BILLING/55 0-30 09:53:00 l 15 00:00: Master SANDY 00 BILLING/55 15 Active 9 [facility] SAH Diagnosis Active 2018-042019-03-05 Mem oria 0-30 21:43:00 l SAH 00:00: Master 00 Active 02/14/2019 [facility] Cervico-oc Problem Active 2019-08-19 M emoria cipital 04-19 21:09:17 l neuralgia 00:00: Master (finding) Cervico-oc 00 cipital neuralgia (finding) Active 04/19/2013 Problem 08/19/2019 Data migrated from [place] on 09/17/14. [facility], Nathalie Erickson,[facility], [place] Coronary Problem Active 2019-08-19 Mem oria arterioscl 04-19 21:09:17 l erosis Coronary 00:00: Qu[place] n (disorder) arterioscl 00 erosis (disorder) Active 04/19/2013 Problem 08/19/2019 Data migrated from [place] on 09/17/14. [facility], Nathalie Erickson,[facility], [place] Degenerati Problem Active 2012-042019-08-19 M emoria on of 06-10 21:09:17 l cervical 00:00: Master interverte Degenerati 00 bral disc on of (disorder) cervical interverte bral disc (disorder) Active 04/09/2013 Problem 08/19/2019 Data migrated from [place] on 12/10/14. [facility], [place], Rolo Thao,[facility], [place] Headache Problem Active 2012-042019-08-19 Mem oria (finding) 06-10 21:09:17 l Headache 00:00: Qu[place] n (finding) 00 Active 04/09/2013 Problem 08/19/2019 Data migrated from [place] on 12/10/14. [facility], [place], Rolo Thao,[facility], [place] History of Problem Active 2012-042019-08-19 M emoria - 06-10 21:09:17 l myocardial History 00:00: Her addison infarction of - 00 (context-d myocardial ependent infarction category) (context-d ependent category) Active 04/09/2013 Problem 08/19/2019 Data migrated from [place] on 12/10/14. [facility], [place] Rolo Thao,[facility], [place] Nontraumat Problem 2019-03-11 M emoria ic chronic 23:00:38 l subdural Master hemorrhage Nontraumat ic chronic subdural hemorrhage 03/11/2019 [facility] Illness, Problem 2019-05-29 Mem oria unspecifie 22:28:06 l d Illness, [place] unspecifie d 05/29/2019 [facility] Gastrointe Problem Resolve 2019-08-19 Memoria stinal d 21:09:17 l hemorrhage Qu[place] n (disorder) Gastrointe stinal hemorrhage (disorder) Resolved Problem 08/19/2019 [facility] [place] Syndrome Problem Resolve 2019-08-19 Me moria of d 21:09:17 l inappropri 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 (disorder) n secretion (disorder) Resolved Problem 08/19/2019 [facility] [place] Atrial Problem Active 2019-08-19 Memor ia fibrillati 21:09:17 l on Atrial [place] (disorder) fibrillati on (disorder) Active Problem 08/19/2019 [facility] [place] 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 [place] 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) Active Problem 08/19/2019 [facility], [place] Congestive Problem Active 2019-08-19 M emoria heart 21:09:17 l failure [place] (disorder) Congestive heart failure (disorder) Active Problem 08/19/2019 [facility], [place] Fatigue Problem Active 2019-08-19 [place] (finding) 21:09:17 l Fatigue [place] (finding) Active Problem 08/19/2019 [facility], [place], Rolo Thao,[facility], [place] Hematoma Problem Active 2019-08-19 Mem oria of 21:09:17 l subdural Hematoma Herm ruddy space of of neuraxis subdural (disorder) space of neuraxis (disorder) Active Problem 08/19/2019 [facility], [place] Hypertensi Problem Active 2019-08-19 M emoria ve 21:09:17 l disorder, Master systemic Hypertensi arterial ve (disorder) disorder, systemic arterial (disorder) Active Problem 08/19/2019 [facility], [place] Hypothyroi Problem Active 2019-08-19 M emoria dism 21:09:17 l (disorder) Qu[place] n Hypothyroi dism (disorder) Active Problem 08/19/2019 [facility] [place] Myocardial Problem Active 2019-08-19 M emoria infarction 21:09:17 l (disorder) [place] Myocardial infarction (disorder) Active Problem 08/19/2019 [facility], [place] Pulmonary Problem Active 2019-08-19 Me moria embolism 21:09:17 l (disorder) [place] Pulmonary embolism (disorder) Active Problem 08/19/2019 [facility], [place], Rolo Thao,[facility], [place] Sinus Problem Active 2019-08-19 Memor ia bradycardi 21:09:17 l a Sinus [place] (disorder) bradycardi a (disorder) Active Problem 08/19/2019 [facility], [place] Urinary Problem Active 2019-08-19 [place] tract 21:09:17 l infectious Urinary Her addison disease tract (disorder) infectious disease (disorder) Active Problem 08/19/2019 [facility], [place],M Rolo Thao,[facility], [facility] [place] Asthenia Problem Active 2019-08-19 Mem oria (finding) 21:09:17 l Asthenia [place] (finding) Active Problem 08/19/2019 [facility] TRINA Thao,[facility], [place] NONTRAUMAT Diagnosis Active 2019-03-05 Memoria IC 21:43:00 l SUBARACHNO [place] n ID NONTRAUMAT HEMORRHAGE IC , UN SUBARACHNO ID HEMORRHAGE , UN Active [facility] NONTRAUMAT Diagnosis Active 2019-03-22 Memoria IC CHRONIC 22:22:00 l SUBDURAL Master HEMORRHAGE NONTRAUMAT IC CHRONIC SUBDURAL HEMORRHAGE Active [facility] HYPO-OSMOL Diagnosis Active 2019-05-31 Memoria ALITY AND 21:51:00 l HYPONATREM Quoc n IA HYPO-OSMOL ALITY AND HYPONATREM IA Active [facility] [place] TRAUM Diagnosis Active 2019-05-31 Mem oria SUBDR HEM 21:51:00 l W LOC OF TRAUM Master UNSP SUBDR HEM DURATION, W LOC OF UNSP DURATION, Active [facility] ILLNESS, Diagnosis Active 2019-05-17 M emoria UNSPECIFIE 12:34:00 l D ILLNESS, [place] UNSPECIFIE D Active [facility] Low back Low back Problem Active [facility] Thoracic Thoracic Problem Active [facility] Cervical Cervical Problem Active [facility] Allergies, Adverse Reactions, Alerts Allergy Allergy Status Severity Reaction(s) Onset Inactive Treating Comm ents Source Name Type Date Date Clinician Laura Propensi Active [facility] ne (Pf) ty to 09-21 [facility] - adverse 00:00: Medical reaction 00 Center s meperidi meperidi Active 2012-04 Memori a ne<sup>1 ne<sup>1 2-20 l </sup> </sup> 06:00: Master 00 Social History Social Habit Start Date Stop Date Quantity Comments Source Sex Assigned At [facility] Social History 2019-07-07 2019-07-07 Nicole hussein 11:12:48 11:12:48 Smoking Status Start Date Stop Date Source Social History [facility] Master Medications Ordered Filled Start Stop Current Ordering Indication Dosage Frequency Signature Comments Components Source Medication Medication Date Date Medication? Clinician (SIG) Name Name OXcarbazepi 2019-2020- No 150mg Q.5D Take [address] ne 10-12 tablet [facility] - (TRILEPTAL) 00:00: 23:59 (150 mg Me dical 150 MG 00 :00 total) by Center tablet mouth 2 (two) times daily. levoFLOXaci 2019- 2020- No 250mg Q24H Take [address] n 09-28 tablet [facility] - (LEVAQUIN) 00:00: 23:59 (250 mg Med ical 250 MG 00 :00 total) by Center tablet mouth daily for 10 days. furosemide 2019- Yes 40mg QD Take [address] (LASIX) 40 6-12 by mouth [facility] - MG tablet 15:33: daily. Medica l 03 Center aspirin 81 2019-0 Yes 81mg QD Take [address] MG EC 6-12 by mouth [facility] - tablet 15:33: daily. Medical 03 Center carvediloL 2019-0 Yes 3.125mg Take 3.[address] [facility] (COREG) 6-12 mg by [facility] - 3.125 MG 15:33: mouth 2 Medica l tablet 03 (two) Center times daily with breakfast and dinner. levothyroxi 2019-0 Yes 50ug Take [address] [facility] ne 6-12 mcg by [facility] - (SYNTHROID, 15:33: mouth Medic al LEVOTHROID) 03 Every Center 50 MCG morning on tablet an empty stomach. sodium 2019- 2020- No 1g [id number] Take [address] [facility] chloride 1 09-27 [id number] by mouth 3 [facility] - gram tablet 12:10: 00:00 3D (three) Me dical 54 :00 times Center daily. divalproex 2019- 2020- No 250mg Q.[id number] Take [address] (DEPAKOTE) 09-27 [id number] mg by L ukes - 125 MG EC 12:10: 00:00 3D mouth 3 Medi cassie tablet 54 :00 (three) Center times daily. valproic 2019-0 2020- No 250mg Q.[id number] Take [address] acid, as 09-27 [id number] (250 mg L ukes - sodium 00:00: 23:59 3D total) by Medic al salt, 00 :00 mouth 3 Center (DEPAKENE) (three) 250 mg/5 mL times (5 mL) daily for solution 15 days. Protonix No Notes: Memoria 3-24 Tablet l 12:30: should not [place] 00 be chewed or crushed. (Same as: Protonix) Divalproex 2019- No Notes: Memor ia Sodium 125 3-23 Hazardous l MG Enteric 23:00: Drug Group H ermann Coated 00 2:Non-anti Capsule neoplastic [Depakote] Hazardous Drug -- Refer to safe handling procedure PPE Matrix (Same as: Depakote Sprinkles) Do not confuse with 250mg capsule or tablets Do not crush. May sprinkle on food. Divalproex 0 Yes 250 mg = 2 M emoria Sodium 125 3-23 cap, PO, l MG Enteric 22:21: Q6H, # 240 H ermann Coated 00 cap, 0 Capsule Refill(s) [Depakote] Divalproex 2019-0 No 500 mg = 2 M emoria Sodium 250 3-23 tab, PO, l MG Enteric 21:41: Q8H, # 180 H ermann Coated 00 tab, 0 Tablet Refill(s) Famotidine Yes 20 mg = 1 Me moria 20 MG Oral 3-23 tab, PO, l Tablet 20:42: BID, # 60 [place] n [Pepcid] 00 tab, 0 Refill(s), Pharmacy: [facility] #[id number] carvedilol 2019-0 Yes 3.125 mg = M emoria 3.125 mg 3-23 1 tab, l oral tablet 19:09: PEG, Q12H, [place] 00 0 Refill(s) Aspirin 81 2019-0 Yes 81 mg = 1 Me moria MG Enteric 3-23 tab, PO, l Coated 19:09: Q24H, # 30 Fabi nn Tablet 00 tab, 0 Refill(s), Pharmacy: [facility] #[id number] atorvastati 2019-0 Yes 40 mg = 1 M emoria n 40 mg 3-23 tab, PO, l oral tablet 19:09: Bedtime, # Master 00 30 tab, 0 Refill(s), Pharmacy: [facility] #[id number] Divalproex 2019- No 500 mg = 2 M emoria Sodium 250 3-23 tab, PO, l MG Enteric 19:09: Q8H, # 180 H ermann Coated 00 tab, 0 Tablet Refill(s), Pharmacy: [facility] #[id number] Lipitor No Notes: Memoria 3-23 (Same as: l 02:20: Lipitor) Master 00 Saline No Notes: Memoria Flush 0.9% 3-23 (Same as: l 02:00: BD [place] Posiflush) Aspirin 81 No Notes: Do Me moria MG Enteric 3-23 not crush l Coated 00:00: or chew. [place] Tablet 00 (Same As: Ecotrin) Saline No Notes: Memoria Flush 0.9% 3-22 (Same as: l 23:18: BD [place] Posiflush) Levetiracet No Notes: [place] am 500 MG 3-22 (Same l Oral Tablet 02:00: as:Keppra) [place] [Keppra] 00 Depakote No Notes: Memoria 3-21 Hazardous l 21:00: Drug Group Master 00 2:Non-anti neoplastic Hazardous Drug -- Refer to safe handling procedure PPE Matrix (Same as: Depakote Delayed Release) Do not confuse with the extended-r elease tablet. Delayed absorption , enteric coated tablet. Do not crush Docusate No Notes: Memoria 3-21 (Same as: l 14:00: Colace) [place] 00 (Do Not Crush) carvedilol No Notes: Memor ia 3-21 Give with l 14:00: food. Master 00 (Same As: Coreg) Furosemide No Notes: Memor ia 40 MG Oral 3-21 (Same as: l Tablet 14:00: Lasix) [place] [Lasix] 00 May cause GI upset. Give with food or milk. Sodium 2019- No 2 gm, 2 Memoria Chloride 3-21 tab, l 1000 MG 14:00: Route: PO, Herm ruddy Oral Tablet 00 Drug form: TAB, TID, Dosing Weight 75.227, kg, Start date: 07/07/19 9:00:00 CDT, Duration: 30 day, Stop date: 08/05/19 17:00:00 CDT, 0 pantoprazol No Notes: For Memoria e 3-21 IV push l 12:30: reconstitu te with 10 ml 0.9% sodium chloride and push over 2 minutes. (Same as: Protonix) sennosides, No Notes: [place] PENITENTIARY -21 (Same as: l 11:56: Senokot) Lanolin Yes TOP, Memoria 0.157 MG/MG 3- Daily, 0 l / Menthol 11:40: Refill(s) Her addison 0.0044 00 MG/MG / Petrolatum 0.24 MG/MG / Zinc Oxide 0.206 MG/MG Topical Ointment [Calmosepti ne] carvedilol No 3.125 mg = M emoria 3.125 mg 3- 1 tab, PO, l oral tablet 11:40: Q12H, 0 Her addison 00 Refill(s) Thyroxine Yes 50 Memoria 3-21 microgram, l 11:40: PO, Daily, [place] 00 0 Refill(s) Sodium 2019- Yes 2 grams, Memoria Chloride - PEG, TID, l 11:40: 0 Refill(s) Furosemide Yes 40 mg = 1 Me moria 40 MG Oral 3-21 tab, PO, l Tablet 11:40: Daily, 0 [Lasix] 00 Refill(s) sennosides, Yes 8.6 mg =, M emoria PENITENTIARY 3-21 PEG, PRN, l 11:40: 0 Refill(s) Melatonin No Notes: Memori a 3-21 (Same as: l 07:24: Melatonin) Lorazepam No Notes: Memori a 3-21 (Same as: l 07:13: Ativan) Dextrose 2019- No 12.5 gm, Memor ia 50% Syringe 3-21 25 mL, l (D50W) 07:13: Route: IVP, Drug Form: INJ, Dosing Weight 81.6, kg, PRN, PRN Blood Glucose Results, Start date: 07/07/19 2:13:00 CDT, Duration: 30 day, Stop date: 08/06/19 2:12:00 CDT, 0 Glucagon 2019-0 No 1 mg, Memoria 07-06 Route: IM, l 07:13: Drug form: Master 00 PDR/INJ, PRN, Dosing Weight 81.6, kg, PRN Blood Glucose Results, Start date: 07/07/19 2:13:00 CDT, Duration: 30 day, Stop date: 08/06/19 2:12:00 CDT, 0 Ondansetron 2019-0 No Notes: [place] 07-06 (Same as: l 07:13: Zofran) Master 00 MEDICATION WASTE Product Size: 4 mg Product Wasted: ___ mg Acetaminoph 2019-0 No Notes: Do M emoria en 07-06 not exceed l 07:13: 4 gm/day. [place] 00 (Same as: Tylenol) Sodium 2019-0 Yes 1 gm = 1 Memoria Chloride 2-09 tab, PO, l 1000 MG 17:26: TID, # 21 Fabi nn Oral Tablet 00 tab, 0 Refill(s), Pharmacy: [facility] #[id number] Furosemide 2019-0 Yes 20 mg = 1 Me moria 20 MG Oral 2-09 tab, PO, l Tablet 17:26: Daily, # 7 Fabi nn [Lasix] 00 tab, 0 Refill(s), Pharmacy: [facility] #[id number] Furosemide 2019-0 No Notes: Memor ia 20 MG Oral 2-09 (Same as: l Tablet 15:00: Lasix) Master [Lasix] 00 May cause GI upset. Give with food or milk. carvedilol 2020-0 No 3.125 mg, Me moria 2-08 Route: PO, l 03:00: Drug form: [place] 00 TAB, Q12H, Dosing Weight 81.6, kg, Start date: 05/25/19 21:00:00 TRIAL MANAGER, Duration: 30 day, Stop date: 06/24/19 9:00:00 CDT Saline 2020-0 No Notes: Memoria Flush 0.9% 2-06 Same as: l 22:00: BD [place] 00 Posiflush Sterile Saline 2019-0 No Notes: Memoria Flush 0.9% 2-06 Same as: l 20:06: BD [place] 00 Posiflush Sterile sodium 2020-0 No Notes: Memoria bicarbonate 2-06 "Dissolve l 650 mg oral 01:01: tablet in H ermann tablet 00 a glass of water prior to oral administra tion. STOMACH WARNING: To avoid serious injury, do not take until tablet is completely dissolved. It is very important not to take this product when overly full from food or drink." pancrelipas 2019-0 No Notes: [place] e 2-06 Same as : l 00:57: Lipase [place] 00 [address] Units, Protease 38,000 units, Amylase 52951 units Reglan 2019-0 No Notes: Memoria 2-06 (Same as: l 00:27: Reglan) [place] 00 Lasix 2019-0 No Notes: Memoria 2-05 (Same as: l 22:00: Lasix) Master Seroquel 2019-0 No Notes: Memoria 2-05 (Same as: l 15:53: SEROquel) [place] 00 Sodium 2020-0 No 1 gm, 1 Memoria Chloride 2-05 tab, l 1000 MG 15:00: Route: PO, Herm ruddy Oral Tablet 00 Drug form: TAB, TID, Dosing Weight 81.6, kg, Start date: 05/23/19 9:00:00 TRIAL MANAGER, Duration: 30 day, Stop date: 06/21/19 17:00:00 TRIAL MANAGER, 0 Sodium 2020-0 No 1 gm, 1 Memoria Chloride 2-04 tab, l 1000 MG 18:28: Route: PO, Herm ruddy Oral Tablet 00 Drug form: TAB, BID, Dosing Weight 81.6, kg, Start date: 05/22/19 12:28:00 TRIAL MANAGER, Duration: 30 day, Stop date: 06/21/19 9:00:00 TRIAL MANAGER, 0 Sodium 2020-0 No 1,000 mL, Memori a Chloride 2-04 Rate: 40 l 0.9% IV 18:27: ml/hr, Master 1,000 mL 00 Infuse over: 25 hr, Route: IV, Dosing Weight 81.6 kg, Total Volume: 1,000, Start date: 05/22/19 12:27:00 TRIAL MANAGER, Duration: 2 day, Stop date: 05/24/19 12:26:00 TRIAL MANAGER, 1.92, m2, 0 sennosides, 2019-0 No Notes: [place] PENITENTIARY 2-03 (Same as: l 23:00: Senokot) [place] 00 Dulcolax 2019-0 No Notes: Memoria Laxative 2-03 (Same As: l 16:21: Dulcolax, Correctol) (Do Not Crush) "Do Not Crush" Sodium 2019-0 No 1,000 mL, Memori a Chloride - Rate: 80 l 0.9% IV 15:42: ml/hr, Master 1,000 mL 00 Infuse over: 12.5 hr, Route: IV, Dosing Weight 81.6 kg, Total Volume: 1,000, Start date: 05/21/19 9:42:00 TRIAL MANAGER, Duration: 2 day, Stop date: 05/23/19 9:41:00 TRIAL MANAGER, 1.92, m2, 0 Hydralazine 2019-0 No Notes: [place] 2- (Same as: l 18:35: Apresoline ) Push over 5 minutes Tylenol 0 No 1,000 mg, Memor ia 2- Route: PO, l 15:01: ONCE, Master 00 Dosing Weight 81.6, kg, Priority: NOW, Start date: 05/19/19 9:01:00 TRIAL MANAGER, Stop date: 05/19/19 9:01:00 TRIAL MANAGER D5W 100 mL 2019-0 No 100 mL, [place] 2-01 Rate: 100 l 12:32: ml/hr, Master 00 Infuse over: 1 hr, Route: IV, Dosing Weight 81.6 kg, Total Volume: 100, Priority: STAT, Start date: 05/19/19 6:32:00 TRIAL MANAGER, Duration: 1 doses or times, Stop date: 05/19/19 7:31:00 TRIAL MANAGER, 1.92, m2, 0 D5W 100 mL 2020-0 No 100 mL, [place] 2-01 Rate: 100 l 09:28: ml/hr, [place] Infuse over: 1 hr, Route: IV, Dosing Weight 81.6 kg, Total Volume: 100, Priority: STAT, Start date: 05/19/19 3:28:00 TRIAL MANAGER, Duration: 1 doses or times, Stop date: 05/19/19 4:27:00 TRIAL MANAGER, 1.92, m2, 0 D5W 1,000 2019-0 No 1,000 mL, Mem oria mL 2- Rate: 100 l 02:07: ml/hr, Master 00 Infuse over: 10 hr, Route: IV, Dosing Weight 81.6 kg, Total Volume: 1,000, Priority: STAT, Start date: 05/18/19 20:07:00 TRIAL MANAGER, Duration: 30 day, Stop date: 06/17/19 20:06:00 TRIAL MANAGER, 1.92, m2, 0 tolvaptan 2019- No Notes: Memori a 1-31 Same as: l 20:03: Samsca [place] 00 Protonix 2019- No Notes: Memoria 1-31 Tablet l 15:00: should not Master 00 be chewed or crushed. (Same as: Protonix) POLYETHYLEN No Notes: [place] E GLYCOL - Dissolve l 3350 15:00: in 8 oz of Master 00 water or juice. (Same as: Miralax) Water 1000 No 1,000 ml, Me moria MG/ML 05-18 Rate: 50 l Injectable 14:09: ml/hr, Fabi nn Solution 00 Infuse over: 21.7 hr, Route: IV, Dosing Weight 81.6 kg, Total Volume: 1,085.5, Start date: 05/18/19 8:09:00 TRIAL MANAGER, Duration: 30 day, Stop date: 06/17/19 8:08:00 TRIAL MANAGER, For IMU and ICU use only. See Order Comments!! , 1.92, m2, 0 Thyroxine 2019- No Notes: Memori a 1-31 Take 1 l 12:30: hour [place] 00 before or 2 hours after meal; Enteral feeds may interefere with the absorption of this medication .(Same as:Levothr oid, Synthroid) carvedilol No Notes: Memor ia 1-31 Give with l 10:00: food. [place] 00 (Same As: Coreg) lansoprazol 2019- No Notes: [place] e 1-31 Take 1 l 03:00: hour [place] 00 before or 2 hours after meal; Expires in 14 days. Shake well before use. (Same as:Prevaci d) Compound ed Product - formulatio n not commercial ly available* * Saline No Notes: Memoria Flush 0.9% 05-18 Same as: l 03:00: BD [place] Posiflush Sterile Seroquel 2019-0 No Notes: Memoria 05-18 (Same as: l 03:00: SEROquel) Master Docusate 2019- No Notes: Memoria 05-17 (Same as: l 23:00: Colace) [place] sodium No Notes: Memoria bicarbonate 05-17 (sodium l 8.4% 22:04: bicarb [place] 00 8.4% (1 mEq/ml) 50 ml VL) carvedilol No Notes: Memor ia 05-17 Give with l 22:01: food. Master 00 (Same As: Coreg) Water 1000 No 1,000 ml, Me moria MG/ML 05-17 Rate: 35 l Injectable 18:01: ml/hr, Fabi nn Solution 00 Infuse over: 31 hr, Route: IV, Dosing Weight 81.6 kg, Total Volume: 1,085.5, Start date: 05/17/19 12:01:00 TRIAL MANAGER, Duration: 30 day, Stop date: 06/16/19 12:00:00 TRIAL MANAGER, For IMU and ICU use only. See Order Comments!! , 1.92, m2, 0 Bisacodyl 2019- No Notes: Memori a 30 (Same As: l 18:01: Dulcolax, [place] 00 Bisco-Lax) DDAVP No Notes: Memoria -30 (Same As: l 18:00: DDAVP) Master MEDICATION WASTE Product Size: 4 microgram Product Wasted: ___ microgram Enoxaparin No Notes: Memor ia -30 (Same as: l 17:00: Lovenox) Master Saline 2019- No Notes: Memoria Flush 0.9% 05-17 Same as: l 16:56: BD Master Posiflush Sterile Potassium No Notes: Memori a Chloride 1-30 (Same as: l 16:56: KCL) Master 00 Infuse no faster than 10 mEq/hr if given peripheral ly. sodium No Notes: Memoria phosphate 1-30 Infuse l 16:56: over 4 [place] 00 hour. Do not infuse phosphorou s concurrent ly in the same line as TPN or IVF that contains calcium. For double lumen central lines, phosphorou s may be infused in a separate lumen from TPN. potassium No Notes: Memori a phosphate 1-30 (Same as: l 16:56: K [place] 00 Phosphate. ) Do not infuse phosphorou s concurrent ly in the same line as TPN or IVF that contains calcium. For double lumen central lines, phosphorou s may be infused in a separate lumen from TPN. 1 mMol phoshate has 1.47 mEq potassium Infuse over 4 hours potassium No Notes: Memori a phosphate-s -30 (Same as: l odium 16:56: Phos-NaK) Master phosphate 00 Each 1.5 250 mg-280 gm pkt has mg-160 mg 250mg oral powder phosphorou for s. Mix reconstitut w/2.5oz ion water and stir. Magnesium No Notes: Memori a Sulfate 05-17 WASTE: F/P l 16:56: - Sink; E [place] - Municipal Trash Bin Magnesium No Notes: Memori a Oxide -30 (Same as: l 16:56: Mag-Ox Master 00 400) Magnesium oxide [id number] g elemental magnesium Dose=____m g magnesium oxide (___mg elemental magnesium) Calcium No Notes: Memoria Gluconate 30 WASTE: F/P l 16:56: - Sink; E Master - [employer] Trash Bin Calcium No Notes: Memoria Carbonate 30 (Same As: l 500 MG 16:56: Tums) Master Chewable 00 Calcium Tablet Carbonate 500 mg = 200 mg elemental calcium Dose = mg calcium carbonate ( mg elemental calcium) pantoprazol 2018-04 Yes 40 mg = 1 M emoria e 40 MG 2-24 tab, PO, l Enteric 16:19: Daily, # Quoc n Coated 00 30 tab, 0 Tablet Refill(s), [Protonix] Pharmacy: [id number] lidocaine 2018-04 No Route: IV, Me moria (ANES) 2-23 Drug form: l 22:27: INJ, ONCE, Dalton 00 Stop date: 04/09/19 16:27:00 TRIAL MANAGER propofol 2018-04 No Route: IV, Mem oria (ANES) 10 2-23 Drug form: l mg 22:05: INJ, Start Master 00 date: 04/09/19 16:05:00 TRIAL MANAGER, Stop date: 04/09/19 17:05:00 TRIAL MANAGER Lactated 2018-04 No Route: IV, Mem oria Ringers 2-23 Total l Injection 21:58: Volume: Fabi nn IV (ANES) 00 1,000, 1000 mL Start date: 04/09/19 15:58:00 TRIAL MANAGER, Stop date: 04/09/19 16:58:00 TRIAL MANAGER Lumason 2018-04 No Notes: Memoria intravenous 2-23 (Same as: l injection 18:39: Lumason) Herm ruddy 00 Administer as an IV bolus; do not administer intra-ibeth rially. Follow each injection with an intravenou s flush of 5 mL of NS. Fleet Enema 2018-04 No 12 years, Memoria 2-23 Pediatric l 17:55: Dosing, 0 Dalton 00 Thyroxine 2018-04 No Notes: Memori a 2-23 Take 1 l 12:30: hour Master 00 before or 2 hours after meal; Enteral feeds may interefere with the absorption of this medication .(Same as:Levothr oid, Synthroid) Sodium 2018-04 No 1 gm, 1 Memoria Chloride 2-23 tab, l 1000 MG 06:00: Route: Master Oral Tablet 00 PEG, Drug form: TAB, Q8H, Dosing Weight 81.818, kg, Start date: 04/09/19 0:00:00 TRIAL MANAGER, Duration: 30 day, Stop date: 05/08/19 16:00:00 TRIAL MANAGER, 0 Coreg 2018-04 No Notes: Memoria 2-23 Give with l 03:00: food. Dalton 00 (Same As: Coreg) Lactulose 2018-04 No Notes: Memori a 667 MG/ML 2-23 (Same l Oral 03:00: as:Chronul Dalton Solution 00 ac) Sodium 2018-04 No 1,000 mL, Memori a Chloride 2-23 Rate: 75 l 0.9% IV 02:19: ml/hr, Master 1,000 mL 00 Infuse over: 13.3 hr, Route: IV, Dosing Weight 81.818 kg, Total Volume: 1,000, Start date: 04/08/19 20:19:00 TRIAL MANAGER, Duration: 30 day, Stop date: 05/08/19 20:18:00 TRIAL MANAGER, 2.02, m2, 0 Dextrose 2018-04 No 12.5 gm, Memor ia 50% Syringe 2- 25 mL, l (D50W) 02:18: Route: Master IVP, Drug Form: INJ, Dosing Weight 81.818, kg, PRN, PRN Blood Glucose Results, Start date: 04/08/19 20:18:00 TRIAL MANAGER, Duration: 30 day, Stop date: 05/08/19 20:17:00 TRIAL MANAGER, 0 Glucagon 2018-04 No 1 mg, Memoria 2- Route: IM, l 02:18: Drug form: Dalton 00 PDR/INJ, PRN, Dosing Weight 81.818, kg, PRN Blood Glucose Results, Start date: 04/08/19 20:18:00 TRIAL MANAGER, Duration: 30 day, Stop date: 05/08/19 20:17:00 TRIAL MANAGER, 0 Ondansetron 2018-04 No Notes: [place] 2-23 (Same as: l 02:18: Zofran) MEDICATION WASTE Product Size: 4 mg Product Wasted: ___ mg Acetaminoph 2018-04 No Notes: Do M emoria en 2-23 not exceed l 02:18: 4 gm/day. Dalton 00 (Same as: Tylenol) pantoprazol 2018-04 No Notes: For Memoria e 2-23 IV push l 02:18: reconstitu te with 10 ml 0.9% sodium chloride and push over 2 minutes. (Same as: Protonix) Omnipaque 2018-04 No Notes: Memori a 300 2-22 (Same l injectable 22:13: as:Omnipaq H ermann solution ue 300). WASTE: F/P - Black; E - Municipal Trash Bin Saline 2018-04 No Notes: Memoria Flush 0.9% 2-22 (Same as: l 20:55: BD Dalton 00 Posiflush) carvedilol 2018-04 Yes 3.125 mg = M emoria 3.125 mg 2-20 1 tab, l oral tablet 19:31: PEG, Q12H, Dalton 00 0 Refill(s) levothyroxi 2018-04 Yes 50 Memori a ne 50 mcg 2-20 microgram l (0.05 mg) 19:31: = 1 tab, Herm ruddy oral tablet 00 PEG, Q630AM, 0 Refill(s) Warfarin 2018-04 No 9 mg, PO, [place] 2-18 Daily, 0 l 16:39: Refill(s), Master 00 [facility] [id number] carvedilol 2018-04 No PO, 0 Memori a 2-18 Refill(s) l 15:55: Master 00 carvedilol 2018-04 No 6.25 mg = Me moria 6.25 mg 2-18 1 tab, PO, l oral tablet 15:55: Q12H, # 60 Master 00 tab, 0 Refill(s), [facility] [id number] levothyroxi 2018-04 No See Memori a ne 75 mcg 2-18 Instructio l (0.075 mg) 15:55: ns, 1 tab, H ermann oral tablet 00 PEG, Tuesday, Tuesday and Tuesday (once a day), 0 Refill(s), [facility] [id number] meloxicam 2018-04 Yes 15 mg = 1 Mem oria 15 mg oral 2-18 tab, PO, l tablet 15:55: Daily, # Master 00 30 tab, 0 Refill(s) Bisacodyl 2018-04 No Notes: Memori a 2-18 (Same As: l 13:47: Dulcolax, Dalton 00 Bisco-Lax) Sodium 2018-04 No 1 gm, 1 Memoria Chloride 2-17 tab, l 1000 MG 22:00: Route: GT, Herm ruddy Oral Tablet 00 Drug form: TAB, Q8H, Dosing Weight 79.1, kg, Start date: 04/03/19 16:00:00 TRIAL MANAGER, Duration: 30 day, Stop date: 05/03/19 8:00:00 TRIAL MANAGER, 0 Miralax 2018- No Notes: Memoria 2-17 Dissolve l 15:46: in 8 oz of Dalton 00 water or juice. (Same as: Miralax) Beneprotein 2018-04 No 1 pkt, [place] 7 gm pkt 2-17 Route: PO, l 13:30: Drug Form: Dalton 00 PWDR, Dosing Weight 79.1, kg, BID-Before Meals, Start date: 04/03/19 7:30:00 TRIAL MANAGER, Duration: 30 day, Stop date: 05/02/19 16:30:00 TRIAL MANAGER NS (Bolus) 2018-04 No 500 mL, [place] IV 2-17 500 ml/hr, l 10:11: Infuse Dalton 00 Over: 1 hr, Route: IV, 500, Drug form: INJ, ONCE, Priority: STAT, Dosing Weight 79.1 kg, Start date: 04/03/19 4:11:00 TRIAL MANAGER, Stop date: 04/03/19 4:11:00 TRIAL MANAGER, 0 Sodium 2018-04 No 2 gm, 2 Memoria Chloride 2-17 tab, l 1000 MG 06:00: Route: GT, Herm ruddy Oral Tablet 00 Drug form: TAB, Q8H, Dosing Weight 79.1, kg, Start date: 04/03/19 0:00:00 TRIAL MANAGER, Duration: 30 day, Stop date: 05/02/19 16:00:00 TRIAL MANAGER, 0 Beneprotein 2018-04 No Notes: [place] 7 gm pkt 2-16 (Same as: l 23:15: Beneprotei Master 00 n) Beneprotein 2018-04 No Notes: [place] 7 gm pkt 2-16 (Same as: l 22:30: Beneprotei Master 00 n) Albuterol 2018-04 No Notes: Memori a 0.833 MG/ML -16 (Same as: l / :49: Duoneb) Master Ipratropium 00 Marianna 0.167 MG/ML Inhalant Solution [DuoNeb] Isolyte S 2018-04 No Notes: Memori a PH-7.4 2-16 (Same as: l (Bolus) IV 10:10: Isolyte S He rmann 00 PH7.4, Normosol-R PH 7.4, Plasma-Lyt e A ) sterile 2018-04 No 20 mL, Memoria water 2-15 Route: l 16:59: MISC, Drug Dalton 00 Form: INJ, Bedtime, PRN Other -See Comment, Start date: 04/01/19 10:59:00 TRIAL MANAGER, Duration: 30 day, Stop date: 05/01/19 10:58:00 TRIAL MANAGER, 0 Sodium 2018-04 No 3 gm, 3 Memoria Chloride 2-15 tab, l 1000 MG 15:49: Route: GT, Herm ruddy Oral Tablet 00 Drug form: TAB, Q8H, Dosing Weight 79.1, kg, Priority: NOW, Start date: 04/01/19 9:49:00 TRIAL MANAGER, Duration: 30 day, Stop date: 05/01/19 8:00:00 TRIAL MANAGER, 0 Zyprexa 2018-04 No Notes: Memoria 2-15 (Same As: l 15:42: ZyPREXA Master 00 IM). Reconstitu te with 2.1 ml sterile water for injection; use within 1 hour after reconstitu tion. For IM use only; do not administer IV or SUB-Q. Zyprexa 2018-04 No 10 mg, Memoria 2-15 Route: IM, l 15:40: Drug form: Master 00 INJ, BID, Dosing Weight 79.1, kg, PRN Agitation, Start date: 04/01/19 9:40:00 TRIAL MANAGER, Duration: 30 day, Stop date: 05/01/19 9:39:00 TRIAL MANAGER Zyprexa 2018-04 No Notes: Memoria 2-15 (Same as: l 00:07: ZyPREXA) Dalton 00 ZyPREXA 2018-04 No Notes: Memoria 2-15 (Same as: l 00:07: ZyPREXA) Dalton 00 Water 1000 2018-04 No 914.5 mL, Me moria MG/ML 2-14 Rate: 50 l Injectable 06:03: ml/hr, Fabi nn Solution 00 Infuse over: 20 hr, Route: IV, Dosing Weight 79.1 kg, Total Volume: 1,000, Start date: 03/31/19 0:03:00 TRIAL MANAGER, Duration: 30 day, Stop date: 04/30/19 0:02:00 TRIAL MANAGER, For IMU and ICU use only. See Order Comments!! , 1.99, m2, 0 Seroquel 2018-04 No Notes: Memoria 2-13 (Same as: l 22:23: SEROquel) Dalton 00 Sodium 2018-04 No 3 gm, 3 Memoria Chloride 2-13 tab, l 1000 MG 18:30: Route: PO, Herm ruddy Oral Tablet 00 Drug form: TAB, Q8H-05, Dosing Weight 79.1, kg, Start date: 03/30/19 12:30:00 TRIAL MANAGER, Duration: 30 day, Stop date: 04/29/19 5:00:00 TRIAL MANAGER, 0 DDAVP 2018-04 No Notes: Memoria 2-13 (Same As: l 12:00: DDAVP) Dalton 00 MEDICATION WASTE Product Size: 4 microgram Product Wasted: ___ microgram Water 1000 2018-04 No 914.5 mL, Me moria MG/ML - Rate: 50 l Injectable 10:07: ml/hr, Fabi nn Solution 00 Infuse over: 20 hr, Route: IV, Dosing Weight 79.1 kg, Total Volume: 1,000, Start date: 03/30/19 4:07:00 TRIAL MANAGER, Duration: 30 day, Stop date: 04/29/19 4:06:00 TRIAL MANAGER, For IMU and ICU use only. See Order Comments!! , 1.99, m2, 0 Hydralazine 2018-04 No Notes: [place] 2-12 (Same as: l 22:23: Apresoline Dalton 00 ) Push over 5 minutes Labetalol 2018-04 No 10 mg, 2 [place] 2-12 mL, Route: l 22:23: IVP, Drug Dalton form: INJ, Q15Min, Dosing Weight 79.1, kg, PRN Elevated BP, Start date: 03/29/19 16:23:00 TRIAL MANAGER, Duration: 30 day, Stop date: 04/28/19 16:22:00 TRIAL MANAGER, 0 heparin 2018-04 No Notes: Memoria sodium, 2-12 porcine l porcine 22:00: heparin Dalton 2500 UNT/ML 00 Injectable Solution Dextrose 5% 2018-04 No 1,000 mL, M emoria in Water IV 2-12 Rate: 50 l 1,000 mL 16:12: ml/hr, Dalton 00 Infuse over: 20 hr, Route: IV, Dosing Weight 79.1 kg, Total Volume: 1,000, Start date: 03/29/19 10:12:00 TRIAL MANAGER, Duration: 30 day, Stop date: 04/28/19 10:11:00 TRIAL MANAGER, 1.99, m2, 0 DDAVP 2018-04 No Notes: Memoria 2-12 (Same As: l 16:00: DDAVP) Master 00 MEDICATION WASTE Product Size: 4 microgram Product Wasted: ___ microgram carvedilol 2018-04 No Notes: Memor ia 2-12 Give with l 15:00: food. Dalton 00 (Same As: Coreg) docusate 2018-04 No Notes: Memoria sodium 150 2-12 (Same as: l mg/15 mL 15:00: Colace) Quoc n oral liquid 00 Levetiracet 2018-04 No Notes: [place] am 2-12 Same as: l 15:00: Keppra Master 00 sennosides, 2018-04 No Notes: Rito [place] PENITENTIARY 2-12 (Same as: l 15:00: Senokot) Dalton 00 Docusate 2018-04 No Notes: Memoria 2-12 (Same as: l 15:00: Colace) Dalton 00 (Do Not Crush) Saline 2018-04 No Notes: Memoria Flush 0.9% -12 Same as: l 15:00: BD Dalton 00 Posiflush Sterile Thyroxine 2018-04 No Notes: Memori a 2-12 Take 1 l 12:30: hour Dalton 00 before or 2 hours after meal; Enteral feeds may interefere with the absorption of this medication .(Same as:Levothr oid, Synthroid) Water 1000 2018-04 No 1,000 mL, Me moria MG/ML 2-12 Rate: 75 l Injectable 10:59: ml/hr, Fabi nn Solution 00 Infuse over: 13.3 hr, Route: IV, Dosing Weight 79.1 kg, Total Volume: 1,000, Priority: STAT, Start date: 03/29/19 4:59:00 TRIAL MANAGER, Duration: 30 day, Stop date: 04/28/19 4:58:00 TRIAL MANAGER, For IMU and ICU use only. See Order Comments!! ... Potassium 2018-04 No Notes: Memori a Chloride 2-12 (Same as: l 06:19: KCL) Dalton 00 Infuse no faster than 10 mEq/hr if given peripheral ly. sodium 2018-04 No Notes: Memoria phosphate 2-12 Infuse l 06:19: over 4 Master 00 hour. Do not infuse phosphorou s concurrent ly in the same line as TPN or IVF that contains calcium. For double lumen central lines, phosphorou s may be infused in a separate lumen from TPN. potassium 2018-04 No Notes: Memori a phosphate 2-12 (Same as: l 06:19: K Master 00 Phosphate. ) Do not infuse phosphorou s concurrent ly in the same line as TPN or IVF that contains calcium. For double lumen central lines, phosphorou s may be infused in a separate lumen from TPN. 1 mMol phoshate has 1.47 mEq potassium Infuse over 4 hours potassium 2018-04 No Notes: Memori a phosphate-s 2-12 (Same as: l odium 06:19: Phos-NaK) Dalton phosphate 00 Each 1.5 250 mg-280 gm pkt has mg-160 mg 250mg oral powder phosphorou for s. Mix reconstitut w/2.5oz ion water and stir. Magnesium 2018-04 No Notes: Memori a Sulfate 2-12 WASTE: F/P l 06:19: - Sink; E - Municipal Trash Bin Magnesium 2018-04 No Notes: Memori a Oxide 2-12 (Same as: l 06:19: Mag-Ox Master 00 400) Magnesium oxide [id number] g elemental magnesium Dose=____m g magnesium oxide (___mg elemental magnesium) Calcium 2018-04 No Notes: Memoria Gluconate 2-12 WASTE: F/P l 06:19: - Sink; E Dalton 00 - Municipal Trash Bin Calcium 2018-04 No Notes: Memoria Carbonate 2-12 (Same As: l 500 MG 06:19: Tums) Master Chewable 00 Calcium Tablet Carbonate 500 mg = 200 mg elemental calcium Dose = mg calcium carbonate ( mg elemental calcium) Iohexol 2018-04 No 100 mL, Memoria 2-12 Route: l 05:23: IVP, Drug Form: SOLN, Dosing Weight 86.364, kg, ONCALL, STAT, Start date: 03/28/19 23:23:00 TRIAL MANAGER, Duration: 1 doses or times, Dose = 2.2ml/kg, Max dose = 100ml -- "To be infused by Radiology Staff ONLY" niCARdipine 2018-04 No Notes: [place] 20 mg in NS 2-12 Same as: l 200 mL 04:14: Cardene Master (Titrate.) 00 Concentrat IV 20 mg ion: (0.1 mg/ 1 ml) Sodium 2018-04 No 1,000 mL, Memori a Chloride -12 Rate: 50 l 0.9% IV 04:05: ml/hr, Dalton 1,000 mL 00 Infuse over: 20 hr, Route: IV, Dosing Weight 86.364 kg, Total Volume: 1,000, Start date: 03/28/19 22:05:00 TRIAL MANAGER, Duration: 30 day, Stop date: 04/27/19 22:04:00 TRIAL MANAGER, 2.08, m2, 0 Acetaminoph 2018-04 No Notes: Do M emoria en 2-12 not exceed l 04:05: 4 gm/day. Dalton 00 (Same as: Tylenol) Acetaminoph 2018-04 No Notes: [place] en 325 MG / 2-12 (Same as: l Hydrocodone 04:05: [place] Fabi nn Bitartrate 00 325/5) Do 5 MG Oral not exceed Tablet 4gm/day of acetaminop hen. Acetaminoph 2018-04 No Notes: Do M emoria en 325 MG / 2-12 not exceed l Hydrocodone 04:05: 4gm/day of Master Bitartrate 00 acetaminop 10 MG Oral hen. Tablet (Same as: [place] 325/10) Morphine 2018-04 No Notes: Memoria 2-12 (Same l 04:05: as:MORPhin Dalton 00 e Sulfate) Bisacodyl 2018-04 No Notes: Memori a 2-12 (Same As: l 04:05: Dulcolax, Master 00 Bisco-Lax) Ondansetron 2018-04 No Notes: [place] 2-12 (Same as: l 04:05: Zofran) Master 00 MEDICATION WASTE Product Size: 4 mg Product Wasted: ___ mg Benadryl 2018-04 No Notes: Memoria 2-12 (Same as: l 04:05: Benadryl) Master 00 phenol 2018-04 No Notes: Memoria 2-12 Chlorasept l 04:05: ic [place] Master 00 (Same as: Chlorasept ic, Sore Throat [place]) WASTE: F/P - Black; E - Municipal Trash Bin Melatonin 3 2018-04 No Notes: [place] MG Extended 2-12 (Same as: l Release 04:05: Melatonin) Herm ruddy Tablet 00 Saline 2018-04 No Notes: Memoria Flush 0.9% 2-12 Same as: l 04:05: BD Dalton 00 Posiflush Sterile Dextrose 2018-04 No 25 gm, 50 [place] 50% Syringe 2-12 mL, Route: l (D50W) 04:05: IVP, Drug Quoc n 00 Form: INJ, Dosing Weight 86.364, kg, PRN, PRN Abnormal Lab Result, Start date: 03/28/19 22:05:00 TRIAL MANAGER, Duration: 30 day, Stop date: 04/27/19 22:04:00 TRIAL MANAGER, 0 Regular 2018-04 No Notes: Memoria Insulin, 2-12 (Same as: l Human 100 04:05: Humulin R) He rmann UNT/ML 00 Roll in Injectable palms of Solution hands gently; Do not shake vigorously . WASTE: F/P - Black; E - Municipal Trash Bin Stable for 31 days at room temperatur e Expires in days from ____Date Sodium 2018-04 No 3 gm, 3 Memoria Chloride 1-23 tab, l 1000 MG 00:00: Route: PO, Herm ruddy Oral Tablet 00 Drug form: TAB, Q6H, Dosing Weight 90.9, kg, Start date: 03/09/19 18:00:00 TRIAL MANAGER, Stop date: 04/13/19 12:00:00 TRIAL MANAGER, 0 Melatonin 2018-04 Yes 3 mg = 1 Me moria MG Extended 1-22 tab, PO, l Release 19:44: Bedtime, Quoc n Tablet 00 PRN Sleep, 0 Refill(s) Melatonin 2018-04 No 3 mg, 1 Mem oria MG Extended 1-22 tab, l Release 19:43: Route: PO, Herm ruddy Tablet 00 Dosing Weight 90.9, kg, Bedtime, PRN Sleep, Start date: 03/09/19 13:43:00 TRIAL MANAGER, Duration: 30 day, Stop date: 04/08/19 13:42:00 TRIAL MANAGER Sodium 2018-04 No 3 gm, Memoria Chloride 05-09 Route: l 1000 MG 19:00: PEG, TID, Fabi nn Oral Tablet 00 Dosing Weight 90.9, kg, Start date: 03/09/19 13:00:00 TRIAL MANAGER, Duration: 30 day, Stop date: 04/08/19 9:00:00 TRIAL MANAGER Imodium A-D 2018-04 Yes 1 mg, PO, M emoria 05-09 Q6H, PRN l 18:50: Diarrhea, Dalton 00 0 Refill(s) Lanolin 2018-04 No Notes: Memoria 0.157 MG/MG 05-09 (Same as: l / Menthol 18:49: Calmosepti He rmann 0.0044 00 ne) MG/MG / Petrolatum 0.24 MG/MG / Zinc Oxide 0.206 MG/MG Topical Ointment [Calmosepti ne] Imodium A-D 2018-04 No Notes: [place] 05-09 Same as l 18:48: Imodium Master 00 Sodium 2018-04 Yes 3 gm, PO, Memori a Chloride 05-09 Q6H, 0 l 1000 MG 18:23: Refill(s) Fabi nn Oral Tablet 00 carvedilol 2018-04 Yes 3.125 mg = M emoria 3.125 mg 05-09 1 tab, l oral tablet 17:06: PEG, Q12H, Dalton 00 0 Refill(s) Levetiracet 2018-04 Yes 500 mg = 5 Memoria am 100 1-22 mL, PEG, l MG/ML Oral 17:06: Q12H, 0 Herm ruddy Solution 00 Refill(s) [Keppra] levothyroxi 2018-04 Yes 50 Memori a ne 50 mcg 1-22 microgram l (0.05 mg) 17:06: = 1 tab, Herm ruddy oral tablet 00 PEG, Q630AM, 0 Refill(s) LORazepam 2018-04 Yes 0.5 mg = 1 Me moria 0.5 mg oral -22 tab, GT, l tablet 14:27: Q6H, Master 00 NEEDED FOR ANXIETY, 0 Refill(s) Bisacodyl 2018-04 No 10 mg = 1 Mem oria 10 MG - supp, GA, l Rectal 14:27: Q24H, Master Suppository 00 NEEDED, 0 [Dulcolax] Refill(s) heparin 2018-04 No 2,500 unit [place] sodium, 05-09 = 1 mL, l porcine 14:27: SUB-Q, Master 2500 UNT/ML 00 Q8H, DVT Injectable PROPHYLAXI Solution S, # 10 vial, 0 Refill(s) Albuterol 2018-04 No 3 mL, NEB, Me moria 0.833 MG/ML 05-09 Q4H, l / 14:27: NEEDED, 0 Master Ipratropium 00 Refill(s) Marianna 0.167 MG/ML Inhalant Solution [DuoNeb] Lactulose 2018-04 Yes 20 gm = 30 Me moria 667 MG/ML - mL, GT, l Oral 14:27: Q12H, 0 Dalton Solution 00 Refill(s) omeprazole 2018-04 Yes 40 mg = 2 Me moria 20 mg oral - cap, GT, l delayed 14:27: Daily, 0 Quoc n release 00 Refill(s) capsule Senna 8.6 2018-04 Yes 8.6 mg = 1 Me moria mg oral -22 tab, GT, l tablet 14:27: BID, 0 Master 00 Refill(s) Acetaminoph 2018-04 No 650 mg = 2 Memoria en 325 MG - tab, PO, l Oral Tablet 14:27: Q6H, Her addison [Tylenol] 00 NEEDED FOR PAIN, 0 Refill(s) lansoprazol 2018-04 No Notes: [place] e - Take 1 l 13:30: hour Master 00 before or 2 hours after meal; Expires in 14 days. Shake well before use. (Same as:Sera alcaraz) Compound ed Product - formulatio n not commercial ly available* * lansoprazol 2018-04 No Notes: [place]ito [place] e -22 Take 1 l 06:25: hour Dalton 00 before or 2 hours after meal; Expires in 14 days. Shake well before use. (Same as:Prevaci d) Compound ed Product - formulatio n not commercial ly available* * Melatonin 2018-04 No Notes: Memori a -22 (Same as: l 06:24: Melatonin) Master 00 heparin 2018-04 No Notes: Memoria sodium, 1-21 porcine l porcine 05:55: heparin Master 2500 UNT/ML 00 Injectable Solution Docusate 2018-04 No Notes: Memoria Sodium 50 1-20 (Same as l MG / 15:00: Senokot-S) Dalton sennosides, 00 Equiv. to PENITENTIARY 8.6 MG Kelsey-Colac Oral Tablet e. Levetiracet 2018-04 No Notes: [place] am 100 1-20 Same as: l MG/ML Oral 15:00: Keppra Fabi nn Solution 00 [Keppra] carvedilol 2018-04 No Notes: Memor ia 1-20 Give with l 15:00: food. Master 00 (Same As: Coreg) Beneprotein 2018-04 No Notes: [place] 7 gm pkt -20 (Same as: l 13:30: Beneprotei Master 00 n) Thyroxine 2018-04 No Notes: Memori a 1-20 Take 1 l 12:30: hour Master 00 before or 2 hours after meal; Enteral feeds may interefere with the absorption of this medication .(Same as:Levothr oid, Synthroid) Levetiracet 2018-04 No Notes: [place] am 1-20 Same as l 03:00: Keppra Master 00 Mix with 100 mL NS, LR or D5W MEDICATION WASTE Product Size: 500 mg Product Wasted: ___ mg Docusate 2018-04 No Notes: Memoria 1-20 (Same as: l 03:00: Colace) Dalton 00 (Do Not Crush) sennosides, 2018-04 No Notes: Rito [place] PENITENTIARY 1-20 (Same as: l 03:00: Senokot) Dalton 00 Saline 2018-04 No Notes: Memoria Flush 0.9% 1-20 (Same as: l 03:00: BD Master 00 Posiflush) Sodium 2018-04 No 1,000 mL, Memori a Chloride 1-20 Rate: 50 l 0.9% IV 02:28: ml/hr, Dalton 1,000 mL 00 Infuse over: 20 hr, Route: IV, Dosing Weight 90.909 kg, Total Volume: 1,000, Start date: 03/06/19 20:28:00 TRIAL MANAGER, Duration: 30 day, Stop date: 04/05/19 20:27:00 TRIAL MANAGER, 2.1, m2, 0 Acetaminoph 2018-04 No Notes: Do M emoria en -20 not exceed l 02:28: 4 gm/day. Dalton 00 (Same as: Tylenol) Bisacodyl 2018-04 No Notes: Memori a 1-20 (Same As: l 02:28: Dulcolax, Master Bisco-Lax) Ondansetron 2018-04 No Notes: [place] 1-20 (Same as: l 02:28: Zofran) Dalton 00 MEDICATION WASTE Product Size: 4 mg Product Wasted: ___ mg Saline 2018-04 No Notes: Memoria Flush 0.9% 1-20 (Same as: l 02:28: BD Dalton 00 Posiflush) Dextrose 2018-04 No 25 gm, 50 [place] 50% Syringe 1-20 mL, Route: l (D50W) 02:28: IVP, Drug Quoc n 00 Form: INJ, Dosing Weight 90.909, kg, PRN, PRN Abnormal Lab Result, Start date: 03/06/19 20:28:00 TRIAL MANAGER, Duration: 30 day, Stop date: 04/05/19 20:27:00 TRIAL MANAGER, 0 Regular 2018-04 No Notes: Memoria Insulin, 1-20 (Same as: l Human 100 02:28: Humulin R) He rmann UNT/ML 00 Roll in Injectable palms of Solution hands gently; Do not shake vigorously . WASTE: F/P - Black; E - Municipal Trash Bin Stable for 31 days at room temperatur e Expires in days from ____Date Acetaminoph 2018-04 Yes 100.4 F, M emoria en 1-13 0 l 21:13: Refill(s) Dalton 00 carvedilol 2018-04 Yes 3.125 mg = M emoria 3.125 mg -13 1 tab, GT, l oral tablet 21:13: Q12H, 0 Her addison 00 Refill(s) cefepime 2018-04 Yes 2 gm, IVP, Mem oria 13 [id number], 0 l 21:13: Refill(s) Master 00 heparin 2018-04 No SUB-Q, Memoria sodium, 13 Q8H, 0 l porcine 21:13: Refill(s) Fabi nn 2500 UNT/ML 00 Injectable Solution Levetiracet 2018-04 Yes GT, Q12H, M emoria am 500 MG 13 0 l Oral Tablet 21:13: Refill(s) H ermann [Keppra] levothyroxi 2018-04 Yes 50 Memori a ne 50 mcg -13 microgram l (0.05 mg) 21:13: = 1 tab, Herm ruddy oral tablet 00 PEG, Q630AM, 0 Refill(s) QUEtiapine 2018-04 Yes 50 mg = 1 Me moria 50 mg oral 13 tab, PEG, l tablet 21:13: Q12H, 0 Master 00 Refill(s) senna 8.8 2018-04 Yes 8.8 mg = 5 Me moria mg/5 mL -13 mL, [place], l oral syrup 21:13: BID, 0 Fabi nn 00 Refill(s) Metronidazo 2018-04 Yes 500 mg = 1 Memoria le 500 MG 13 tab, PEG, l Oral Tablet 21:13: ABXQ8H, 0 H ermann 00 Refill(s) lansoprazol 2018-04 Yes PEG, Memori a e -13 BID-Before l 21:13: Meals, 0 Dalton 00 Refill(s) Miralax 2018-04 No Notes: Memoria -13 Dissolve l 15:00: in 8 oz of Dalton 00 water or juice. (Same as: Miralax) Levetiracet 2018-04 No Notes: [place] am 500 MG 04-30 Same as: l Oral Tablet 03:00: Keppra Herm ruddy [Keppra] 00 Dextrose 2018-04 No 12.5 gm, Memor ia 50% Syringe 1-13 25 mL, l 02:16: Route: Dalton 00 IVP, Drug Form: INJ, Dosing Weight 87.9, kg, PRN, PRN Blood Glucose Results, Start date: 02/27/19 20:16:00 TRIAL MANAGER, Duration: 30 day, Stop date: 03/29/19 20:15:00 TRIAL MANAGER, 0 Glucagon 2018-04 No 1 mg, Memoria -13 Route: IM, l 02:16: Drug form: Master 00 PDR/INJ, PRN, Dosing Weight 87.9, kg, PRN Blood Glucose Results, Start date: 02/27/19 20:16:00 TRIAL MANAGER, Duration: 30 day, Stop date: 03/29/19 20:15:00 TRIAL MANAGER, 0 Insulin 2018-04 No Notes: Memoria Lispro - (Same as: l 02:16: Humalog) Roll in palms of hands gently; Do not shake vigorously . WASTE: F/P - Black; E - SR Labs Trash Bin Stable for 28 days at room [facility] e. Expires in days from ____Date Flagyl 2018-04 No Notes: Memoria -12 (Same as: l 02:00: Flagyl) Master Take with food/ avoid alcohol NS (Bolus) 2018-04 No 500 mL, Rito [place] IV 1-10 500 ml/hr, l 13:05: Infuse Dalton 00 Over: 1 hr, Route: IV, 500, Drug form: INJ, ONCE, Priority: STAT, Dosing Weight 87.9 kg, Start date: 02/25/19 7:05:00 TRIAL MANAGER, Stop date: 02/25/19 7:05:00 TRIAL MANAGER, 0 Seroquel 2018-04 No Notes: Memoria 1-10 (Same as: l 03:00: SEROquel) Master Zofran 2018-04 No Notes: Memoria - (Same as: l 23:11: Zofran) Dalton 00 MEDICATION WASTE Product Size: 4 mg Product Wasted: ___ mg Thyroxine 2018-04 No 50 Memoria 1-09 microgram, l 12:30: Route: PO, Master 00 Drug form: TAB, [id number], Dosing Weight 87.9, kg, Start date: 02/24/19 6:30:00 TRIAL MANAGER, Duration: 30 day, Stop date: 03/25/19 6:30:00 TRIAL MANAGER pantoprazol 2018-04 No 40 mg, Rito [place] e 04-26 Route: l 03:00: PEG, Q12H, Master 00 Dosing Weight 87.9, kg, Start date: 02/23/19 21:00:00 TRIAL MANAGER, Duration: 30 day, Stop date: 03/25/19 9:00:00 TRIAL MANAGER cefepime 2018-04 No Notes: Memoria 04-26 (Same as: l 02:00: Maxipime) Dalton 00 MEDICATION WASTE Product Size: 2000 mg Product Wasted: ___ mg normal 2018-04 No 1,000 mL, Memori a saline 0.9% 04-26 Rate: l IV 1,000 mL 00:49: 1,000 Fabi nn 00 ml/hr, Infuse over: 1 hr, Route: IV, Dosing Weight 87.9 kg, Total Volume: 1,000, Start date: 02/23/19 18:49:00 TRIAL MANAGER, Duration: 1 doses or times, Stop date: 02/23/19 19:48:00 TRIAL MANAGER, 2.05, m2, 0 normal 2018-04 No 1,000 mL, Memori a saline 0.9% 04-25 Rate: l IV 1,000 mL 23:09: 1,000 Fabi nn 00 ml/hr, Infuse over: 1 hr, Route: IV, Dosing Weight 87.9 kg, Total Volume: 1,000, Start date: 02/23/19 17:09:00 TRIAL MANAGER, Duration: 1 doses or times, Stop date: 02/23/19 18:08:00 TRIAL MANAGER, 2.05, m2, 0 Prevacid 2018-04 No Notes: Memoria 04-25 Take 1 l 22:30: hour Master 00 before or 2 hours after meal; Expires in 14 days. Shake well before use. (Same as:Prevaci d) Compound ed Product - formulatio n not commercial ly available* * Beneprotein 2018-04 No Notes: Rito [place] 7 gm pkt 04-25 (Same as: l 22:30: Beneprotei Dalton 00 n) sugammadex 2018-04 No Notes: Memor ia 04-25 (Same as: l 20:19: Bridion) Dalton 00 Flagyl 2018-04 No Notes: Memoria 04-25 (Same as: l 18:00: Flagyl) Avoid alcohol. ondansetron 2018-04 No Route: IV, Memoria (ANES) 04-25 Drug form: l 15:15: INJ, ONCE, Stop date: 02/23/19 9:15:00 TRIAL MANAGER ePHEDrine 2018-04 No Route: IV, Me moria (ANES) 04-25 Drug form: l 15:06: INJ, ONCE, Stop date: 02/23/19 9:06:00 TRIAL MANAGER ANES 2018-04 No 0.625 mg, Memoria Enalaprilat 04-25 Route: l 14:41: IVP, Master 00 Q5Min, Dosing Weight 87.9, kg, PRN Elevated BP, Start date: 02/23/19 8:41:00 TRIAL MANAGER, Duration: 4 doses or times, Stop date: Limited # of times Hydralazine 2018-04 No 10 mg, Rito [place] 04-25 Route: l 14:41: IVP, Dalton 00 Q20Min, Dosing Weight 87.9, kg, PRN Elevated BP, Start date: 02/23/19 8:41:00 TRIAL MANAGER, Duration: 2 doses or times, Stop date: Limited # of times esmolol 2018-04 No 10 mg, Memoria 04-25 Route: l 14:41: IVP, Dalton 00 Q5Min, Dosing Weight 87.9, kg, PRN Other -See Comment, Start date: 02/23/19 8:41:00 TRIAL MANAGER, Duration: 5 doses or times, Stop date: Limited # of times Labetalol 2018-04 No 10 mg, Memori a 04-25 Route: l 14:41: IVP, Dalton 00 Q5Min, Dosing Weight 87.9, kg, PRN Elevated BP, Start date: 02/23/19 8:41:00 TRIAL MANAGER, Duration: 5 doses or times, Stop date: Limited # of times Acetaminoph 2018-04 No 1,000 mg, M emoria en 04-25 Route: PO, l 14:41: Drug form: Master 00 TAB, ONCE, Dosing Weight 87.9, kg, PRN Pain Score 1-3, Start date: 02/23/19 8:41:00 TRIAL MANAGER Oxycodone 2018-04 No 5 mg, Memoria 04-25 Route: NG, l 14:41: Drug form: Dalton 00 LIQ, Q4H, Dosing Weight 87.9, kg, PRN Pain Score 4-6, Start date: 02/23/19 8:41:00 TRIAL MANAGER, Duration: 30 day, Stop date: 03/25/19 8:40:00 TRIAL MANAGER Flumazenil 2018-04 No 0.2 mg, Rito [place] 04-25 Route: l 14:41: IVP, PRN, Dosing Weight 87.9, kg, PRN Benzodiaze pine Reversal, Initial dose, Start date: 02/23/19 8:41:00 TRIAL MANAGER, Duration: 30 day, Stop date: 03/25/19 8:40:00 TRIAL MANAGER Naloxone 2018-04 No 0.4 mg, Memori a 04-25 Route: l 14:41: IVP, Q2MIN, Dosing Weight 87.9, kg, PRN Narcotic Reversal, Start date: 02/23/19 8:41:00 TRIAL MANAGER, Duration: 8 doses or times, Stop date: Limited # of times Ondansetron 2018-04 No 4 mg, Memor ia 04-25 Route: l 14:41: IVP, ONCE, Dosing Weight 87.9, kg, PRN Nausea & Vomiting, Start date: 02/23/19 8:41:00 TRIAL MANAGER propofol 2018-04 No Route: IV, Mem oria (ANES) 04-25 Drug form: l 14:35: INJ, ONCE, Stop date: 02/23/19 8:35:00 TRIAL MANAGER rocuronium 2018-04 No Route: IV, M emoria (ANES) 04-25 Drug form: l 14:35: INJ, ONCE, Stop date: 02/23/19 8:35:00 TRIAL MANAGER fentaNYL 2018-04 No Route: IV, Mem oria (ANES) 04-25 Drug form: l 14:35: INJ, ONCE, Stop date: 02/23/19 8:35:00 TRIAL MANAGER phenylephri 2018-04 No Route: IV, Zeke ne (ANES) 04-25 Drug form: l 14:35: INJ, ONCE, Master 00 Stop date: 02/23/19 8:35:00 TRIAL MANAGER ceFAZolin 2018-04 No Route: IV, Me sesay (ANES) 04-25 Drug form: l 14:30: INJ, ONCE, Dalton 00 Stop date: 02/23/19 8:30:00 TRIAL MANAGER Adult 2018-04 No Notes: Memoria Parenteral 04-25 Must use l Nutrition 04:00: 1.2 micron He rmann Custom - 00 filter AND Peripheral Lipids (PPN not should not TPN) 2,160 be mL administer ed to patients who are allergic to soy, fish, egg or peanuts. Sodium 2018-04 No 1,000 mL, Memori a Chloride 04-24 500 ml/hr, l 0.9% 20:15: Infuse Master (Bolus) IV 00 Over: 2 hr, Route: IV, 1,000, Drug form: INJ, ONCE, Priority: STAT, Dosing Weight 87.9 kg, Start date: 02/22/19 14:15:00 TRIAL MANAGER, Stop date: 02/22/19 14:15:00 TRIAL MANAGER, 0 Tylenol 2018-04 No Notes: Max Rito [place] 04-24 acetaminop l 20:13: hen = 4000 Master 00 mg/day (4 gm/day). (Same as: Tylenol) Thyroxine 2018-04 No Notes: Memori a 04-24 (Same as: l 16:30: Synthroid) Dalton 00 Reconstitu te with 5ml of NS. Final concentrat ion = 20 micrograms /ml. Use immediatel y after reconstitu tion and discard remaining solution. Zosyn 2018-04 No Notes: Memoria 04-24 (Same as: l 16:00: Zosyn) Master 00 Dosing based on Piperacill in component MEDICATION WASTE Product Size: 3375 mg Product Wasted: ___ mg Bisacodyl 2018-04 No Notes: Memori a 07 (Same As: l 09:59: Dulcolax, Dalton 00 Bisco-Lax) Adult 2018-04 No Notes: Memoria Parenteral 04-24 Must use l Nutrition 04:00: 1.2 micron He rmann Custom - 00 filter AND Peripheral Lipids (PPN not should not TPN) 2,160 be mL administer ed to patients who are allergic to soy, fish, egg or peanuts. Isolyte S 2018-04 No Notes: Memori a PH-7.4 04-23 (Same as: l (Bolus) IV 15:47: Isolyte S He rmann 00 PH7.4, Normosol-R PH 7.4, Plasma-Lyt e A ) pantoprazol 2018-04 No 40 mg, Rito [place] e 04-23 Route: l 13:30: IVP, Master 00 Before Breakfast, Dosing Weight 87.9, kg, Start date: 02/21/19 7:30:00 TRIAL MANAGER, Duration: 30 day, Stop date: 03/22/19 7:30:00 TRIAL MANAGER Protonix 2018-04 No Notes: For Mem oria 04-23 IV push l 03:00: reconstitu Dalton 00 te with 10 ml 0.9% sodium chloride and push over 2 minutes. (Same as: Protonix) Morphine 2018-04 No Notes: Memoria 04-23 (Same l 02:19: as:MORPhin Master 00 e Sulfate) Protonix 2018-04 No Notes: Memoria 04-22 Same as: l 22:30: Protonix Master 00 Mix in 5 mL apple juice or applesauce for oral & 10mL apple juice for NG tube Vimpat 2018-04 No Notes: Memoria -05 Same as: l 15:00: Vimpat Dalton 00 Labetalol 2018-04 No 20 mg, 4 Rito [place] 1-05 mL, Route: l 07:35: IVP, Drug Master 00 form: INJ, Q2H, Dosing Weight 87.9, kg, PRN Other -See Comment, Start date: 02/20/19 1:35:00 TRIAL MANAGER, Duration: 30 day, Stop date: 03/22/19 1:34:00 TRIAL MANAGER, 0 Vimpat 2018-04 No Notes: Memoria - Same as: l 00:04: Vimpat Master 00 MEDICATION WASTE Product Size: 200 mg Product Wasted: ___ mg Fentanyl 2018-04 No Notes: Memoria 04-22 (Same as: l 00:04: Sublimaze) Dalton 00 Preservat kemal free. Versed 2018-04 No Notes: Memoria 04-22 (Same as: l 00:04: Versed) Master 00 MEDICATION WASTE Product Size: 2 mg Product Wasted: ___ mg Vimpat 2018-04 No Notes: Memoria 04-21 Same as: l 03:00: Vimpat Dalton 00 MEDICATION WASTE Product Size: 200 mg Product Wasted: ___ mg heparin 2018-04 No Notes: Memoria sodium, 04-20 porcine l porcine 22:00: heparin Master 2500 UNT/ML 00 Injectable Solution Vimpat + 2018-04 No Notes: Memoria Sodium 04-20 Same as: l Chloride 21:19: Vimpat Dalton 0.9% IV 100 00 mL MEDICATION WASTE Product Size: 200 mg Product Wasted: 0 mg Vimpat 2018-04 No Notes: Memoria 04-20 Same as: l 20:52: Vimpat Dalton 00 MEDICATION WASTE Product Size: 200 mg Product Wasted: 0 mg Labetalol 2018-04 No 20 mg, 4 Rito [place] 04-20 mL, Route: l 17:40: IVP, Drug form: INJ, Q15Min, Dosing Weight 87.9, kg, PRN Hypertensi on, Start date: 02/18/19 11:40:00 TRIAL MANAGER, Duration: 3 doses or times, Stop date: Limited # of times, 0 Thyroxine 2018-04 No Notes: Memori a 04-20 (Same as: l 15:45: Synthroid) Dalton 00 Reconstitu te with 5ml of NS. Final concentrat ion = 20 micrograms /ml. Use immediatel y after reconstitu tion and discard remaining solution. Dexmedetomi 2018-04 No Notes: Use Memoria dine 04-20 the l 15:43: following Master 00 cdm for [id number]. Isolyte S 2018-04 No Notes: Memori a PH 7.4 1000 04-20 (Same as: l mL 14:45: Isolyte S Dalton 00 PH7.4, Normosol-R PH 7.4, Plasma-Lyt e A ) normal 2018-04 No 1,000 mL, Memori a saline 0.9% 04-19 Rate: 50 l IV 1,000 mL 21:31: ml/hr, Herm ruddy 00 Infuse over: 20 hr, Route: IV, Dosing Weight 87.9 kg, Total Volume: 1,000, Start date: 02/17/19 16:31:00 CDT, Duration: 30 day, Stop date: 03/19/19 16:30:00 TRIAL MANAGER, 2.05, m2, 0 normal 2018- No 2,000 mL, Memori a saline 0.9% 04-19 Rate: 50 l IV 2,000 mL 18:17: ml/hr, Herm ruddy 00 Infuse over: 40 hr, Route: IV, Dosing Weight 87.9 kg, Total Volume: 2,000, Start date: 02/17/19 13:17:00 CDT, Duration: 1 doses or times, Stop date: 02/18/19 13:16:00 TRIAL MANAGER, 2.05, m2, 0 Ativan 2018-04 No Notes: Memoria - (Same as: l 17:15: Ativan) Master Morphine 2018-04 No Notes: Memoria - (Same l 16:58: as:MORPhin Master 00 e Sulfate) Valproic 2018-04 No 1,500 mg, Rito [place] Acid 100 04-19 Route: IV, l MG/ML 13:41: ONCE, Master Injectable 00 Dosing Solution Weight 89, kg, Start date: 02/17/19 8:41:00 CDT, Stop date: 02/17/19 8:41:00 CDT Valproic 2018-04 No 1,500 gm, Rito [place] Acid 100 04-19 Route: IV, l MG/ML 13:11: ONCE, Dalton Injectable 00 Dosing Solution Weight 89, kg, Priority: STAT, Start date: 02/17/19 8:11:00 CDT, Stop date: 02/17/19 8:11:00 CDT Labetalol 2018-04 No 10 mg, 2 Rito [place] 1-02 mL, Route: l 13:10: IVP, Drug form: INJ, Q15Min, Dosing Weight 89, kg, PRN Hypertensi on, Start date: 02/17/19 8:10:00 CDT, Duration: 3 doses or times, Stop date: 03/17/19 0:00:00 TRIAL MANAGER, 0 NS 1,000 mL 2018-04 No 1,000 mL, M emoria 04-19 Rate: 40 l 08:00: ml/hr, Dalton 00 Infuse over: 25 hr, Route: IV, Dosing Weight 89 kg, Total Volume: 1,000, Start date: 02/17/19 3:00:00 CDT, Duration: 30 day, Stop date: 03/19/19 2:59:00 TRIAL MANAGER, 2.06, m2, 0 NS (Bolus) 2018-04 No 500 mL, Rito [place] IV 04-19 500 ml/hr, l 07:47: Infuse Master 00 Over: 1 hr, Route: IV, 500, Drug form: INJ, ONCE, Priority: STAT, Dosing Weight 89 kg, Start date: 02/17/19 2:47:00 CDT, Stop date: 02/17/19 2:47:00 CDT, 0 NS 1,000 mL 2018-04 No 1,000 mL, Nathalie emoria 04-19 Rate: 100 l 07:47: ml/hr, Dalton 00 Infuse over: 10 hr, Route: IV, Dosing Weight 89 kg, Total Volume: 1,000, Start date: 02/17/19 2:47:00 CDT, Duration: 30 day, Stop date: 03/19/19 2:46:00 TRIAL MANAGER, 2.06, m2, 0 Norepinephr 2018-04 No Notes: Not Memoria ine 04-19 for direct l 07:46: administra Dalton 00 tion - DILUTE. Protect from light. (Same as:Levophe d). Administer by either central venous catheter or peripheral ly-inserte d central catheter (PICC) line. Lidocaine 2018-04 No Notes: Memori a Hydrochlori 04-19 (Same as: l de 0.02 03:53: Uro-Jet) Quoc n MG/MG 00 Topical Gel Dexmedetomi 2018-04 No Notes: Use Memoria dine 04-18 the l 21:54: following Master 00 cdm for [id number]. heparin 2018-04 No Notes: Memoria sodium, 04-18 porcine l porcine 21:00: heparin Dalton 2500 UNT/ML 00 Injectable Solution propofol 10 2018-04 No Notes: If M emoria mg/mL 04-18 Diprivan - l (Titrate.) 19:45: change Fabi nn IV 1,000 mg 00 bottle & tubing every 12 hr Per state nursing law propofol can only be given by a nurse if patient is intubated or being intubated (unless the nurse is a [employer] AND [employer]ER). Same as: Diprivan Albuterol 2018-04 No Notes: SEE Me moria 0.83 MG/ML 04-18 RT l Inhalant 08:19: DOCUMENTAT Her addison Solution 00 ION (Same as: Proventil) Albuterol 2018-04 No Notes: Memori a 0.833 MG/ML 04-18 (Same as: l / 07:00: Duoneb) Dalton Ipratropium 00 Marianna 0.167 MG/ML Inhalant Solution [DuoNeb] Sodium 2018-04 No Notes: SEE Memor ia Chloride 3% 04-18 RT l inhalation 07:00: DOCUMENTAT H ermann solution 00 ION (Same as: Hypertonic Saline 3%, Inhalation ) Coreg 2018-04 No 3.125 mg, Memoria 04-18 Route: GT, l 02:00: Drug form: Master TAB, Q12H, Dosing Weight 89, kg, Start date: 02/15/19 21:00:00 CDT, Duration: 30 day, Stop date: 03/17/19 9:00:00 TRIAL MANAGER normal 2018-04 No 1,000 mL, Memori a saline 0.9% Rate: 50 l IV 1,000 mL 21:50: ml/hr, Herm Infuse over: 20 hr, Route: IV, Dosing Weight 89 kg, Total Volume: 1,000, Start date: 02/15/19 16:50:00 CDT, Duration: 30 day, Stop date: 03/17/19 16:49:00 TRIAL MANAGER, 2.06, m2, 0 Versed 2018-04 No Notes: Memoria 0-31 (Same as: l 19:25: Versed) Master 00 MEDICATION WASTE Product Size: 2 mg Product Wasted: ___ mg Coreg 2018-04 No Notes: Memoria 0-31 Give with l 14:42: food. Master 00 (Same As: Coreg) Docusate 2018-04 No Notes: Memoria 0-31 (Same as: l 14:00: Colace) Dalton 00 sennosides, 2018-04 No Notes: Rito ir[place] PENITENTIARY 0-31 (Same as: l 14:00: Senokot) Master 00 Vitamin K1 2018-04 No Notes: Memor ia + Sodium 0-31 (Same as: l Chloride 14:00: Aqua-Mephy Her addison 0.9% IV 50 00 ton, mL Vitamin K) MEDICATION WASTE Product Size: 10 mg Product Wasted: ___ mg lansoprazol 2018-04 No Notes: Rito [place] e 0-31 Take 1 l 14:00: hour Dalton 00 before or 2 hours after meal; Expires in 14 days. Shake well before use. (Same as:Prevaci d) Compound ed Product - formulatio n not commercial ly available* * chlorhexidi 2018-04 No Notes: Rito [place] ne 0-31 (Same As: l gluconate 14:00: Peridex) Herm ruddy 1.2 MG/ML 00 Mouthwash Thyroxine 2018-04 No Notes: Memori a 0-31 Take 1 l 11:30: hour Dalton 00 before or 2 hours after meal; Enteral feeds may interefere with the absorption of this medication .(Same as:Levothr oid, Synthroid) ocular 2018-04 No Notes: Memoria lubricant 0-31 (Same as: l 11:00: Lacri-Lube Master 00 , Puralube, Duratears Naturale, Artificial Tears, and Tears Again ) NS 1,000 mL 2018-04 No 1,000 mL, M emoria 0-31 Rate: 75 l 09:42: ml/hr, Infuse over: 13.3 hr, Route: IV, Dosing Weight 89 kg, Total Volume: 1,000, Start date: 02/15/19 4:42:00 CDT, Duration: 30 day, Stop date: 03/17/19 4:41:00 TRIAL MANAGER, 2.06, m2, 0 Acetaminoph 2018-04 No Notes: Max Memoria en 0-31 acetaminop l 09:39: hen = Master 00 4000mg/day (4 gm/day). (Same as: Tylenol) Dextrose 2018-04 No 12.5 gm, Memor ia 50% Syringe 0-31 25 mL, l 09:37: Route: Dalton 00 IVP, Drug Form: INJ, Dosing Weight 89, kg, PRN, PRN Blood Glucose Results, Start date: 02/15/19 4:37:00 CDT, Duration: 30 day, Stop date: 03/17/19 3:36:00 TRIAL MANAGER, 0 Glucagon 2018-04 No 1 mg, Memoria 0-31 Route: IM, l 09:37: Drug form: Master 00 PDR/INJ, PRN, Dosing Weight 89, kg, PRN Blood Glucose Results, Start date: 02/15/19 4:37:00 CDT, Duration: 30 day, Stop date: 03/17/19 3:36:00 TRIAL MANAGER, 0 Insulin 2018-04 No Notes: Memoria regular 0-31 (Same as: l 09:37: Humulin R) Dalton 00 Roll in palms of hands gently; Do not shake vigorously . WASTE: F/P - Black; E - Municipal Trash Bin Stable for 31 days at room temperatur e Expires in days from ____Date Potassium 2018-04 No Notes: Memori a Chloride 0-31 (Same as: l 09:37: KCL) Master 00 Infuse no faster than 10 mEq/hr if given peripheral ly. sodium 2018-04 No Notes: Memoria phosphate 0-31 Infuse l 09:37: over 4 Dalton 00 hour. Do not infuse phosphorou s concurrent ly in the same line as TPN or IVF that contains calcium. For double lumen central lines, phosphorou s may be infused in a separate lumen from TPN. potassium 2018-04 No Notes: Memori a phosphate 0-31 (Same as: l 09:37: K Master 00 Phosphate. ) Do not infuse phosphorou s concurrent ly in the same line as TPN or IVF that contains calcium. For double lumen central lines, phosphorou s may be infused in a separate lumen from TPN. 1 mMol phoshate has 1.47 mEq potassium Infuse over 4 hours potassium 2018-04 No Notes: Memori a phosphate-s 0-31 (Same as: l odium 09:37: Phos-NaK) Master phosphate 00 Each 1.5 250 mg-280 gm pkt has mg-160 mg 250mg oral powder phosphorou for s. Mix reconstitut w/2.5oz ion water and stir. Magnesium 2018-04 No Notes: Memori a Sulfate 0-31 WASTE: F/P l 09:37: - Sink; E Master 00 - Municipal Trash Bin Magnesium 2018-04 No Notes: Memori a Oxide 0-31 (Same as: l 09:37: Mag-Ox Dalton 00 400) Magnesium oxide [id number] g elemental magnesium Dose=____m g magnesium oxide (___mg elemental magnesium) Calcium 2018-04 No Notes: Memoria Gluconate 0-31 WASTE: F/P l 09:37: - Sink; E Dalton 00 - Municipal Trash Bin Calcium 2018-04 No Notes: Memoria Carbonate 0-31 (Same As: l 500 MG 09:37: Tums) Dalton Chewable 00 Calcium Tablet Carbonate 500 mg = 200 mg elemental calcium Dose = mg calcium carbonate ( mg elemental calcium) Fentanyl 2018-04 No Notes: Memoria 0-31 (Same as: l 07:04: Sublimaze) Dalton 00 Preservat kemal free. Fentanyl 2018-04 No 1,000 Memoria 0-31 microgram, l 05:56: 20 mL, Dalton 00 Rate: Titrate, Start Dose: 50 microgram/ hr, Titration: 25 microgram/ hour every 15 minutes, Goal(s): RASS 0, Max Dose: 100 microgram/ hr, Route: IV, Dosing Weight 90 kg, Total Volume: 20, Start date: 02/15/19 0:56:00 CDT, Duratio... chlorhexidi 2018-04 No Notes: Rito [place] ne 0-31 (Same As: l gluconate 05:52: Peridex) Herm ruddy 1.2 MG/ML 00 Mouthwash NS (Bolus) 2018-04 No 1,000 mL, Me moria IV 0-31 1,000 l 05:51: ml/hr, Dalton 00 Infuse Over: 1 hr, Route: IV, 1,000, Drug form: INJ, ONCE, Priority: STAT, Dosing Weight 90 kg, Start date: 02/15/19 0:51:00 CDT, Stop date: 02/15/19 0:51:00 CDT, 0 norepinephr 2018-04 No Route: IV, Memoria ine (ANES) 0-31 Drug form: l 02:11: INJ, ONCE, Master 00 Stop date: 02/14/19 21:11:00 CDT Sodium 2018-04 No Route: IV, Memor ia Chloride 0-31 Total l 0.9% IV 01:00: Volume: Dalton (ANES) 500 00 500, Start mL date: 02/14/19 20:00:00 CDT, Stop date: 02/14/19 21:00:00 CDT rocuronium 2018-04 No Route: IV, M emoria (ANES) 0-31 Drug form: l 00:29: INJ, ONCE, Stop date: 02/14/19 19:29:00 CDT phenylephri 2018-04 No Route: IV, Memoria ne (ANES) 0-31 Drug form: l 00:29: INJ, ONCE, Stop date: 02/14/19 19:29:00 CDT fentaNYL 2018-04 No Route: IV, Mem oria (ANES) 0-31 Drug form: l 00:14: INJ, ONCE, Stop date: 02/14/19 19:14:00 CDT ceFAZolin 2018-04 No Route: IV, Me moria (ANES) 0-31 Drug form: l 00:04: INJ, ONCE, Stop date: 02/14/19 19:04:00 CDT Sodium 2018-04 No Route: IV, Memor ia Chloride 0-30 Drug form: l 0.9% IV 23:38: INJ, Start Herm ruddy (ANES) 95 00 date: mL + 02/14/19 levETIRAcet 18:38:00 am (ANES) CDT, Stop 500 mg date: 02/14/19 19:38:00 CDT Isolyte S 2018-04 No Route: IV, Me moria PH 7.4 0-30 Total l (ANES) 1000 23:20: Volume: Her addison mL 00 1,000, Start date: 02/14/19 18:20:00 CDT, Stop date: 02/14/19 19:20:00 CDT Iohexol 2018-04 No 100 mL, Memoria 0-30 Route: l 23:01: IVP, Drug Form: SOLN, Dosing Weight 90, kg, ONCALL, STAT, Start date: 02/14/19 18:01:00 CDT, Duration: 1 doses or times, Dose = 2.2ml/kg, Max dose = 100ml -- "To be infused by Radiology Staff ONLY" Factor 2018-04 No Route: IV, Memor ia 2-7-9-10 0-30 Drug form: l Prothrombin 22:43: INJ, ONCE, Master Complex 00 kg, Concentrate Priority: 2,100 unit STAT, + empty Start container 1 date: ea 02/14/19 17:43:00 CDT, Stop date: 02/14/19 17:43:00 CDT, 0 Vitamin K 1 2018-04 No 10 mg, Rito ir[place]a 030 Route: l 22:43: IVPB, Drug Master form: SOLN, ONCE, kg, Priority: STAT, Start date: 02/14/19 17:43:00 CDT, Stop date: 02/14/19 17:43:00 CDT Saline 2018-04 No 10 mL, Memoria Flush 0.9% 030 Route: l 22:05: IVP, Drug Master Form: INJ, kg, PRN, PRN Line Flush, Start date: 02/14/19 17:05:00 CDT, Duration: 30 day, Stop date: 03/16/19 16:04:00 TRIAL MANAGER, 0 Vital Signs Vital Name Observation Time Observation Value Comments Source Heart rate 2019-09-28 14:25:00 64 /min [facility] Respiratory rate 2019-09-28 14:25:00 18 /min [facility] Oxygen saturation in 2019-09-28 14:25:00 98 /min [facility] - Arterial blood by Medical Ce nter Pulse oximetry Systolic blood 2019-09-28 11:40:00 98 mm[Hg] [facility] Diastolic blood 2019-09-28 11:40:00 56 mm[Hg] [facility] Body temperature 2019-09-28 11:40:00 36.67 Leela [facility] Body height 2019-09-22 14:00:00 160 cm [facility] Body weight 2019-09-22 14:00:00 68.04 kg [facility] BMI 2019-09-22 14:00:00 26.57 kg/m2 [facility] Heart Rate 2019-07-09 20:06:00 [facility] Master Respitory Rate 2019-07-09 20:06:00 Memori al Master Systolic (mm Hg) 2019-07-09 20:06:00 Rito rial Master Diastolic (mm Hg) 2019-07-09 20:06:00 Mem orial [place] Heart Rate 2019-07-09 17:17:00 [facility] [place] Respitory Rate 2019-07-09 17:17:00 Memori al Master Systolic (mm Hg) 2019-07-09 17:17:00 Rito rial Master Diastolic (mm Hg) 2019-07-09 17:17:00 Mem orial Master Heart Rate 2019-07-09 13:25:00 [facility] [place] Respitory Rate 2019-07-09 13:25:00 Memori al [place] Systolic (mm Hg) 2019-07-09 13:25:00 Rito rial Master Diastolic (mm Hg) 2019-07-09 13:25:00 Mem orial Master Temperature Oral (F) 2019-07-07 08:03:00 97[facility]6 [facility] Height 2019-07-07 07:58:00 167.64 [facility] Weight 2019-07-07 07:58:00 [facility] BMI Calculated 2019-07-07 07:58:00 Memori al [place] Temperature Oral (F) 2019-05-27 14:00:00 97.7 F [facility] Master Heart Rate 2019-05-27 14:00:00 [facility] [place] Respitory Rate 2019-05-27 14:00:00 Memori al Master Systolic (mm Hg) 2019-05-27 14:00:00 Rito rial Dalton Diastolic (mm Hg) 2019-05-27 14:00:00 Mem orial [place] Temperature Oral (F) 2019-05-27 10:00:00 97.4 F [facility] [place] Heart Rate 2019-05-27 10:00:00 [facility] [place] Respitory Rate 2019-05-27 10:00:00 Memori al [place] Systolic (mm Hg) 2019-05-27 10:00:00 Rito rial Master Diastolic (mm Hg) 2019-05-27 10:00:00 Mem orial [place] Temperature Oral (F) 2019-05-27 06:01:00 98.5 F [facility] [place] Heart Rate 2019-05-27 06:01:00 Memorial Master Respitory Rate 2019-05-27 06:01:00 Memori al [place] Systolic (mm Hg) 2019-05-27 06:01:00 Rito rial Dalton Diastolic (mm Hg) 2019-05-27 06:01:00 Mem orial [place] Height 2019-05-17 17:16:00 157.48 cm [facility] [place] Weight 2019-05-17 17:16:00 [facility] [place] BMI Calculated 2019-05-17 17:16:00 Memori al [place] Height 2019-05-17 16:33:00 165.1 cm [facility] [place] Weight 2019-05-17 16:33:00 [facility] [place] BMI Calculated 2019-05-17 16:33:00 Memori al Master Heart Rate 2019-04-10 21:00:00 [facility] [place] Respitory Rate 2019-04-10 21:00:00 Memori al Master Systolic (mm Hg) 2019-04-10 21:00:00 Rito rial Dalton Diastolic (mm Hg) 2019-04-10 21:00:00 Mem orial [place] Heart Rate 2019-04-10 17:11:00 [facility] Master Respitory Rate 2019-04-10 17:11:00 Memori al [place] Systolic (mm Hg) 2019-04-10 17:11:00 Rito rial Dalton Diastolic (mm Hg) 2019-04-10 17:11:00 Mem orial [place] Heart Rate 2019-04-10 13:45:00 Memorial Master Respitory Rate 2019-04-10 13:45:00 Memori al Master Systolic (mm Hg) 2019-04-10 13:45:00 Rito rial Dalton Diastolic (mm Hg) 2019-04-10 13:45:00 Mem orial Master Height 2019-04-10 11:48:00 154.94 cm [facility] [place] Weight 2019-04-10 11:48:00 Memorial Master BMI Calculated 2019-04-10 11:48:00 Memori al [place] Height 2019-04-09 02:35:00 157.48 cm Memorial Master Weight 2019-04-09 02:35:00 [facility] [place] BMI Calculated 2019-04-09 02:35:00 Memori al [place] Temperature Oral (F) 2019-04-09 02:09:00 98.3 F [facility] [place] Weight 2019-04-08 20:55:00 [facility] Heart Rate 2019-04-06 21:34:00 [facility] Respitory Rate 2019-04-06 21:34:00 [facility] Systolic (mm Hg) 2019-04-06 21:34:00 [facility] Diastolic (mm Hg) 2019-04-06 21:34:00 [facility] Heart Rate 2019-04-06 17:14:00 [facility] Respitory Rate 2019-04-06 17:14:00 [facility] Systolic (mm Hg) 2019-04-06 17:14:00 [facility] Diastolic (mm Hg) 2019-04-06 17:14:00 [facility] Heart Rate 2019-04-06 13:46:00 [facility] Respitory Rate 2019-04-06 13:46:00 [facility] Systolic (mm Hg) 2019-04-06 13:46:00 [facility] Diastolic (mm Hg) 2019-04-06 13:46:00 [facility] Temperature Oral (F) 2019-04-05 05:50:00 98.5 F [facility] Temperature Oral (F) 2019-04-04 21:32:00 98.6 F [facility] Temperature Oral (F) 2019-04-04 17:35:00 98.7 F [facility] Height 2019-04-02 12:35:00 177.8 cm [facility] Height 2019-03-30 11:56:00 177.8 cm [facility] Height 2019-03-29 11:00:00 177.8 cm [facility] Weight 2019-03-29 06:16:00 [facility] BMI Calculated 2019-03-29 06:16:00 [facility] Weight 2019-03-29 05:15:00 [facility] BMI Calculated 2019-03-29 05:15:00 [facility] BMI Calculated 2019-03-29 02:23:00 [facility] Weight 2019-03-29 02:23:00 [facility] Respitory Rate 2019-03-29 01:12:00 [facility] Heart Rate 2019-03-29 01:12:00 [facility] Systolic (mm Hg) 2019-03-29 01:12:00 [facility] Diastolic (mm Hg) 2019-03-29 01:12:00 [facility] orial Dalton Systolic (mm Hg) 2019-03-28 21:22:00 Rito rial Master Diastolic (mm Hg) 2019-03-28 21:22:00 Mem orial Master Heart Rate 2019-03-28 21:22:00 [facility] Respitory Rate 2019-03-28 21:22:00 Memori al Dalton Temperature Oral (F) 2019-03-28 21:22:00 98.2 F [facility] Height 2019-03-28 21:22:00 177.8 cm [facility] BMI Calculated 2019-03-28 21:22:00 Memori al [facility] Weight 2019-03-28 21:22:00 [facility] Heart Rate 2019-03-09 18:01:00 [facility] Respitory Rate 2019-03-09 18:01:00 Memori al Master Systolic (mm Hg) 2019-03-09 18:01:00 Rito rial Dalton Diastolic (mm Hg) 2019-03-09 18:01:00 Mem orial Master Heart Rate 2019-03-09 13:22:00 [facility] Respitory Rate 2019-03-09 13:22:00 Memori al Master Systolic (mm Hg) 2019-03-09 13:22:00 Rito rial Dalton Diastolic (mm Hg) 2019-03-09 13:22:00 Mem orial Master Heart Rate 2019-03-09 10:23:00 [facility] Respitory Rate 2019-03-09 10:23:00 Memori al Dalton Systolic (mm Hg) 2019-03-09 10:23:00 Rito rial Dalton Diastolic (mm Hg) 2019-03-09 10:23:00 Mem orial Master Temperature Oral (F) 2019-03-08 10:16:00 98.4 F [facility] Temperature Oral (F) 2019-03-08 06:04:00 97.9 F [facility] Temperature Oral (F) 2019-03-08 02:23:00 97.9 F [facility] Height 2019-03-07 04:48:00 162.56 cm [facility] Weight 2019-03-07 04:48:00 [facility] BMI Calculated 2019-03-07 04:48:00 Memori al [facility] Height 2019-03-06 21:51:00 170.18 cm [facility] BMI Calculated 2019-03-06 21:51:00 Memori al Dalton Weight 2019-03-06 21:51:00 [facility] Heart Rate 2019-02-28 21:30:00 [facility] Respitory Rate 2019-02-28 21:30:00 Memori al Master Systolic (mm Hg) 2019-02-28 21:30:00 Rito rial Dalton Diastolic (mm Hg) 2019-02-28 21:30:00 Mem orial Master Temperature Oral (F) 2019-02-28 18:00:00 98.3 F [facility] Heart Rate 2019-02-28 18:00:00 [facility] Respitory Rate 2019-02-28 18:00:00 Memori al Dalton Systolic (mm Hg) 2019-02-28 18:00:00 Rito rial Dalton Diastolic (mm Hg) 2019-02-28 18:00:00 Mem orial Dalton Temperature Oral (F) 2019-02-28 13:33:00 97.6 F [facility] Heart Rate 2019-02-28 13:33:00 [facility] Respitory Rate 2019-02-28 13:33:00 Memori al Master Systolic (mm Hg) 2019-02-28 13:33:00 Rito rial Dalton Diastolic (mm Hg) 2019-02-28 13:33:00 Mem orial Master Temperature Oral (F) 2019-02-28 01:27:00 98.8 F [facility] Height 2019-02-18 11:00:00 167.64 cm [facility] Height 2019-02-17 17:08:00 167.64 cm [facility] BMI Calculated 2019-02-17 17:08:00 Memori al Dalton Weight 2019-02-17 17:08:00 [facility] Height 2019-02-17 10:41:00 167.64 cm [facility] Weight 2019-02-15 08:54:00 [facility] BMI Calculated 2019-02-15 08:54:00 Obed Escobedo Weight 2019-02-15 08:16:00 [facility] Master BMI Calculated 2019-02-15 08:16:00 Obed Escobedo Procedures Procedure Date / Time Performing Clinician Source Performed REPORT OF PROCEDURE - 2019-10-01 13:20:56 Provider, Default [facility] ENDOSCOPY SCAN Scanning [facility] RHYTHM STRIP - SCAN 2019-10-01 13:20:49 Provider, Default [facility] POCT-GLUCOSE METER 2019-09-28 12:17:00 Sebastian, [facility] POCT-GLUCOSE METER 2019-09-28 08:02:00 Sebastian, [facility] CBC W/PLT COUNT & AUTO 2019-09-28 05:19:00 Sebastian, [facility] BASIC METABOLIC PANEL 2019-09-28 05:19:00 Sebastian, [facility] () [facility] MAGNESIUM 2019-09-28 05:19:00 Eusebio King In [facility] PHOSPHORUS 2019-09-28 05:19:00 Eusebio King In [facility] POCT-GLUCOSE METER 2019-09-27 22:20:00 Sebastian, [facility] POCT-GLUCOSE METER 2019-09-27 17:18:00 Sebastian, [facility] XR CHEST 1 VIEW 2019-09-27 15:32:00 Sebastian, [facility] PORTABLE/BEDSIDE [facility] POCT-GLUCOSE METER 2019-09-27 10:44:00 Sebastian, [facility] POCT-GLUCOSE METER 2019-09-27 07:23:00 Sebastian, [facility] MAGNESIUM 2019-09-27 06:39:00 Eusebio King In [facility] PHOSPHORUS 2019-09-27 06:39:00 Eusebio King In [facility] POCT-GLUCOSE METER 2019-09-27 06:11:00 Sebastian, [facility] POCT-GLUCOSE METER 2019-09-27 00:55:00 Sebastian, [facility] POCT-GLUCOSE METER 2019-09-26 17:15:00 Sebastian, [facility] SARS-COV2/RT-PCR ([facility] & 2019-09-26 16:18:00 Sebastian, [facility] PO[facility]-GLU[facility]SE MET[facility] 2019-09-26 12:04:00 Sebastian, [facility] MAGNESIUM 2019-09-26 05:24:00 Eusebio King In [facility] PHOSPHORUS 2019-09-26 05:24:00 Eusebio King In [facility] POCT-GLUCOSE METER 2019-09-25 17:35:00 Sebastian, [facility] POCT-GLUCOSE METER 2019-09-25 11:23:00 Sebastian, [facility] POCT-GLUCOSE METER 2019-09-25 06:22:00 Sebastian, [facility] MAGNESIUM 2019-09-25 05:12:00 Eusebio King In [facility] PHOSPHORUS 2019-09-25 05:12:00 Eusebio King In [facility] POCT-GLUCOSE METER 2019-09-24 23:59:00 Sebastian, [facility] POCT-GLUCOSE METER 2019-09-24 18:07:00 Sebastian, [facility] POCT-GLUCOSE METER 2019-09-24 14:01:00 Sebastian, [facility] POCT-GLUCOSE METER 2019-09-24 06:10:00 Sebastian, [facility] CBC W/PLT COUNT & AUTO 2019-09-24 03:47:00 Eusebio King In [facility] BASIC METABOLIC PANEL 2019-09-24 03:47:[address] [facility] (7) [facility] MAGNESIUM 2019-09-24 03:47:00 Eusebio King In [facility] PHOSPHORUS 2019-09-24 03:47:00 Eusebio King In [facility] POCT-GLUCOSE METER 2019-09-23 23:22:00 Linda Cortes [facility] POCT-GLUCOSE METER 2019-09-23 17:56:00 Eusebio King In [facility] POCT-GLUCOSE METER 2019-09-23 13:53:00 Eusebio King In [facility] POCT-GLUCOSE METER 2019-09-23 12:53:00 Eusebio King In [facility] URINALYSIS WITH 2019-09-23 12:39:00 Eusebio King In [facility] - MICROSCOPIC IF INDICATED [facility] URINALYSIS MICROSCOPIC 2019-09-23 12:39:00 Eusebio King In [facility] POCT-GLUCOSE METER 2019-09-23 06:09:00 Eusebio King In [facility] BASIC METABOLIC PANEL 2019-09-23 05:18:[address] [facility] (7) [facility] VITAMIN D, 25-HYDROXY 2019-09-23 05:18:00 Eusebio King In [facility] MAGNESIUM 2019-09-23 05:18:00 Eusebio King In [facility] PHOSPHORUS 2019-09-23 05:18:00 Eusebio King In [facility] POCT-GLUCOSE METER 2019-09-22 23:52:00 Eusebio King In [facility] BLOOD CULTURE 2019-09-22 23:00:00 Jacob Alba [facility] POCT-GLUCOSE METER 2019-09-22 17:15:00 Eusebio King In [facility] XR CHEST 1 VIEW 2019-09-22 15:58:00 Eusebio King In [facility] PORTABLE/BEDSIDE [facility] HIV-1 ANTIGEN WITH 2019-09-22 15:05:00 Eusebio King In [facility] HIV-1/2 ANTIBODY [facility] RPR 2019-09-22 15:05:00 Eusebio King In [facility] POCT-GLUCOSE METER 2019-09-22 11:54:00 Eusebio King In [facility] TSH/FREE T4 IF INDICATED 2019-09-22 06:22:00 [facility]lic[facility], [facility] VITAMIN B12 AND FOLATE 2019-09-22 06:22:00 Angélica, [facility] VITAMIN B1 2019-09-22 06:22:00 Angélica, [facility] C-REACTIVE PROTEIN 2019-09-22 06:22:00 Angélica, [facility] AMMONIA 2019-09-22 06:22:00 Angélica, [facility] TROPONIN I 2019-09-22 06:22:00 Lencho [facility] T4, FREE 2019-09-22 06:22:00 Angélica [facility] CBC W/PLT COUNT & AUTO 2019-09-22 01:46:00 Lencho [facility] VALPROIC ACID LEVEL, 2019-09-22 01:46:00 [facility]lica [facility] TROPONIN I 2019-09-22 01:46:00 Len[facility] HEMOGLOBIN A1C 2019-09-22 01:46:00 Len[facility] BASIC METABOLIC PANEL 2019-09-22 01:46:[address] [facility] () [facility] PROTHROMBIN TIME/INR 2019-09-22 01:46:00 Lencho [facility] HEPATIC FUNCTION PANEL 2019-09-22 01:46:00 Lencho [facility] [U] XRAY THORACOLUMBAR 2019-04-25 00:00:00 [facility] SPINE AP AND LAT. 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 Plan of Care Planned Activity Planned Date Details Comments Source Future Scheduled 2019-12-18 INFLUENZA VACCINE (#1) [facility] 00:[facility]:00 [code = INFLUENZA Medical Ce nter VACCINE (#1)] Future Scheduled 1998-05-[address] [facility] 00:00:00 WELLNESS (YEAR 2 or Medical Center FIRST YEAR if no IPPE) [code = MEDICARE ANNUAL WELLNESS (YEAR 2 or FIRST YEAR if no IPPE)] Future Scheduled 1997 PNEUMOCOCCAL 65+ YRS [facility] - Test 00:00:00 (1 of 1 - Medical Center [id number] PCV13) [code = PNEUMOCOCCAL 65+ YRS (1 of 1 - [id number] PCV13)] Encounters Start End Encounter Admission Attending Care Care Encounter Source Date/Time Date/Time Type Type Clinicians Facility Department ID 2019-05-17 Inpatient [facility] MED [id number] [facility] W 10:14:00 2020-06-13 2020-06-13 [facility] [id number] 00:00:00 00:00:00 Emeterio Collins [id number] [place] [id number] Professio [id number] [facility] 220 [facility] [address] 2019-08-17 2019-08-17 Outpatient Sonja Pisano [facility] [id number] 08:30:00 08:30:00 Marissa 00 2019-07-08 2019-07-09 Outpatient Keon [place] SL [id number] 09:41:00 17:47:00 Eloise Fernandes 2019-07-08 2019-07-07 Inpatient E MHFB MED [id number] MHFB 09:41:00 01:54:00 2019-05-17 2019-05-27 Outpatient Kirill Snyder [facility] [id number] 10:14:00 14:19:00 Lugo 30 2019-04-25 2019-04-25 [facility] [id number] 07:30:00 08:15:47 2019-04-25 2019-04-25 LEYLA Shaffer [facility] [id number] 07:30:00 07:30:00 Eric Cuellar at [facility], Sports Eric Adams Medicine [facility] 2019-04-08 2019-04-10 Outpatient Brijesh Husain MHSL MHSL [id number] 14:39:53 17:44:00 Dougie 2019-04-08 2019-04-08 Inpatient E MHFB MED [id number] MHFB 19:32:00 14:39:00 2019-03-28 2019-04-06 Outpatient Godfrey [facility] [id number] 20:20:21 19:41:00 Magalie 2019-03-28 2019-03-28 Inpatient E [facility] M[facility]H [id number] MHHH 22:05:00 20:20:00 2019-03-28 2019-03-28 Outpatient Aznaurova-A MHPL MHPL [id number] 15:21:29 19:49:00 Irina schilling 2019-03-28 2019-03-28 Emergency E MHBL MHBL [id number] MHBL 15:21:00 15:21:00 2019-03-19 2019-03-19 Outpatient Florenciolaurentcrow, MHOIH MHOIH [id number] 16:43:00 23:59:00 Chava Navarrete 00 2019-03-06 2019-03-09 Outpatient Esquenazi [facility] [id number] 15:44:12 15:46:00 BunnHunter vieyra 2019-03-09 2019-03-06 Inpatient E M[facility] MHHH [id number] MHHH 11:09:00 20:28:00 2019-02-14 2019-02-28 Outpatient Horace [facility] [id number] 17:00:00 15:50:00 Dalia 69 Ish 2019-02-14 2019-02-14 Outpatient MHHH RIC [id number] MHHH 18:48:00 18:48:00 2019-02-14 2019-02-14 Inpatient E M[facility] M[facility]H [id number] MHHH 18:06:00 17:02:00 Results Test Description Test Time Test Comments Results Result Comments Source Vitamin B1 2019-09-28 20:17:00 Test Item Value Reference Range Interpretation Comme nts Vitamin B1,LCMSMS (test 34 nmol/L 8-30 H Shelbi min supplementation code = 8060050) within 24 ho urs prior to blood draw may affect the accuracy of res ults. This test was d pedro luisd and its analytical performance characteristics have been determined by [employer]. It has not been cleared or approved by theA. This as say has been validated pursu ant to the CLIA regulation s and is used for clinic al purposes. TIGIST (test code = TIGIST) Performing Lab *[facility], [address] [place] [id number] Sam Simons MD, PhD Lab Interpretation (test Abnormal code = 94156-7) [facility] [id number] 12:28:00 Test Item Value Reference Range Interpretation Comments POC-Glucose Meter (test 99 mg/dL 70-110 : TE STED AT [facility] code = 1538) 67[address] [facility], 770 30: Clinical Informatics Physician/Techni amada ID = [id number] for ELICEO CORADO Lab Interpretation (test Normal code = 24346-2) [facility]-GLUCOSE [id number] 12:28:00 Test Item Value Reference Range Interpretation Comments POC-GLUCOSE METER 99 mg/dL 70-110 : [facility] ([facility] (test code = [facility], 1538) [address]: Clinical Informatics Physician/Techni amada ID = [id number] for NANDO STANLEYLA POCT-GLUCOSE [id number] 08:13:00 Test Item Value Reference Range Interpretation Comments POC-GLUCOSE METER 79 mg/dL 70-110 : [facility] ([facility] (test code = [facility], 1538) [address]: Clinical Informatics Physician/Techni amada ID = [id number] for RICHARD BEATRIZ, ELICEO Basic Metabolic [id number] 06:39:00 Test Item Value Reference Range Interpretation Comments Sodium (test code = 129 meq/L 136-145 L 2951-2) Potassium (test code = 4.2 meq/L 3.5-5.1 2823-3) Chloride (test code = 100 meq/L 98-107 2075-0) CO2 (test code = 24 meq/L 22-29 8-9) BUN (test code = 15 mg/dL 7-21 3094-0) Creatinine (test code 1.11 mg/dL 0.57-1.25 = 2160-0) Glucose (test code = 75 mg/dL 70-105 2345-7) Calcium (test code = 8.9 mg/dL 8.4-10.2 84800-2) EGFR (test code = 76 mL/min/1.73 [place] [address]-7) NOT ACCURATE CREATININE CLEARANCE IN PREDICTING GLOMERULAR FILTRATION RATE . ESTIMATED GFR I S NOT APPLICABLE FOR DIALYSIS PATIENTS. TIGIST (test code = TIGIST) Clinical Informatics Physician ID - [facility] Lab Interpretation Abnormal (test code = 71666-7) [facility] 06:39:00 Test Item Value Reference Range Interpretation Comments Magnesium (test code = 1.7 mg/dL 1.6-2.6 74565-1) TIGIST (test code = TIGIST) Clinical Informatics Physician [facility] Lab Interpretation (test Normal code = 40199-6) [facility]12 06:39:00 Test Item Value Reference Range Interpretation Comments Phosphorus (test code = 3.2 mg/dL 2.3-4.7 2777-1) TIGIST (test code = TIGIST) Clinical Informatics Physician [place] - [facility] Lab Interpretation (test Normal code = 99879-9) [facility]2020-06-12 06:39:00 Test Item Value Reference Range Interpretation Comments PHOSPHORUS (BEAKER) (test code = 3.2 mg/dL 2.3-4.7 604) Clinical Informatics Physician ID - [facility] [id number] 06:39:00 Test Item Value Reference Range Interpretation Comments MAGNESIUM (BEAKER) (test code = 1.7 mg/dL 1.6-2.6 627) Clinical Informatics Physician ID - [facility] MBASIC METABOLIC [id number] 06:39:00 Test Item Value Reference Range Interpretation Comments SODIUM (BEAKER) 129 meq/L 136-145 L (test code = 381) POTASSIUM (BEAKER) 4.2 meq/L 3.5-5.1 (test code = 379) CHLORIDE (BEAKER) 100 meq/L 98-107 (test code = 382) CO2 (BEAKER) (test 24 meq/L 22-29 code = 355) BLOOD UREA NITROGEN 15 mg/dL 7-21 (BEAKER) (test code = 354) CREATININE (BEAKER) 1.11 mg/dL 0.57-1.25 (test code = 358) GLUCOSE RANDOM 75 mg/dL 70-105 (BEAKER) (test code = 652) CALCIUM (BEAKER) 8.9 mg/dL 8.4-10.2 (test code = 697) EGFR (BEAKER) (test 76 mL/min/1.73 ESTIMA GUILLAUME GFR IS code = 1092) sq m NOT ACCURATE CREATININE CLEARANCE IN PREDICTING GLOMERULAR FILTRATION RATE . ESTIMATED GFR I S NOT APPLICABLE FOR DIALYSIS PATIEN TS. Clinical Informatics Physician ID - [facility] with platelet count + automated [id number] 06:02:00 Test Item Value Reference Range Interpretation Comments WBC (test code = 6690-2) 5.2 See_Comment [A utomated message] The system [employer] generated this result transmitted ref erence range: 3.5 - 10 .5 K/L. The refe rence range was not u sed to interpret this result as normal/abnor mal. RBC (test code = 789-8) 3.48 See_Comment L [Au tomated message] The system [employer] generated this result transmitted ref erence range: 4.63 - 6 .08 M/L. The refe rence range was not u sed to interpret this result as normal/abnor mal. MCHC (test code = 786-4) 33.1 See_Comment L [A utomated message] The system [employer] generated this result transmitted ref erence range: 32.3 - 3 6.5 GM/DL. The refe rence range was not u sed to interpret this result as normal/abnor mal. Hematocrit (test code = 32.6 % 40.1-51 L 4544-3) MCV (test code = 787-2) 93.7 fL 79-92.2 H MCH (test code = 785-6) 31.0 pg 25.7-32.2 RDW (test code = 788-0) 15.2 % 11.6-14.4 H Platelets (test code = 176 See_Comment [Aut omated message] 637-3) The system [employer] generated this result transmitted ref erence range: 150 - 45 0 K/CU MM. The referen ce range was not u sed to interpret this result as normal/abnor mal. MPV (test code = 10.1 fL 9.4-12.4 55364-2) nRBC (test code = 413) 0 See_Comment [Aut omated message] The system [employer] generated this result transmitted ref erence range: 0 - 0 /1 00 WBC. The refere nce range was not u sed to interpret this result as normal/abnor mal. % Neutros (test code = 45 % 429) % Lymphs (test code = 36 % 430) % Monos (test code = 14 % 431) % Eos (test code = 432) 3 % % Baso (test code = 437) 1 % # Neutros (test code = 2.31 See_Comment [Aut omated message] 670) The system [employer] generated this result transmitted ref erence range: 1.78 - 5 .38 K/L. The refe rence range was not u sed to interpret this result as normal/abnor mal. # Lymphs (test code = 1.88 See_Comment [Auto mated message] 414) The system [employer] generated this result transmitted ref erence range: 1.32 - 3 .57 K/L. The refe rence range was not u sed to interpret this result as normal/abnor mal. # Monos (test code = 0.73 See_Comment [Autom ated message] 415) The system [employer] generated this result transmitted ref erence range: 0.30 - 0 .82 K/L. The refe rence range was not u sed to interpret this result as normal/abnor mal. # Eos (test code = 416) 0.17 See_Comment [Au tomated message] The system [employer] generated this result transmitted ref erence range: 0.04 - 0 .54 K/L. The refe rence range was not u sed to interpret this result as normal/abnor mal. # Baso (test code = 417) 0.03 See_Comment [A utomated message] The system [employer] generated this result transmitted ref erence range: 0.01 - 0 .08 K/L. The refe rence range was not u sed to interpret this result as normal/abnor mal. Immature 1 % 0-1 Granulocytes-Relative (test code = 2801) Lab Interpretation (test Abnormal code = 86599-5) [facility] W/PLT COUNT & AUTO [id number] 06:02:00 Test Item Value Reference Range Interpretation Comments WHITE BLOOD CELL COUNT (BEAKER) 5.2 K/ L 3.5-10.5 (test code = 775) RED BLOOD CELL COUNT (BEAKER) 3.48 M/ L 4.63-6.08 L (test code = 761) HEMOGLOBIN (BEAKER) (test code = 10.8 GM/DL 13.7-17.5 L 410) HEMATOCRIT (BEAKER) (test code = 32.6 % 40.1-51.0 L 411) MEAN CORPUSCULAR VOLUME (BEAKER) 93.7 fL 79.0-92.2 H (test code = 753) MEAN CORPUSCULAR HEMOGLOBIN 31.0 pg 25.7-32.2 (BEAKER) (test code = 751) MEAN CORPUSCULAR HEMOGLOBIN CONC 33.1 GM/DL 32.3-36.5 (BEAKER) (test code = 752) RED CELL DISTRIBUTION WIDTH 15.2 % 11.6-14.4 H (BEAKER) (test code = 412) PLATELET COUNT (BEAKER) (test 176 K/CU MM 150-450 code = 756) MEAN PLATELET VOLUME (BEAKER) 10.1 fL 9.4-12.4 (test code = 754) NUCLEATED RED BLOOD CELLS 0 /100 WBC 0-0 (BEAKER) (test code = 413) NEUTROPHILS RELATIVE PERCENT 45 % (BEAKER) (test code = 429) LYMPHOCYTES RELATIVE PERCENT 36 % (BEAKER) (test code = 430) MONOCYTES RELATIVE PERCENT 14 % (BEAKER) (test code = 431) EOSINOPHILS RELATIVE PERCENT 3 % (BEAKER) (test code = 432) BASOPHILS RELATIVE PERCENT 1 % (BEAKER) (test code = 437) NEUTROPHILS ABSOLUTE COUNT 2.31 K/ L 1.78-5.38 (BEAKER) (test code = 670) LYMPHOCYTES ABSOLUTE COUNT 1.88 K/ L 1.32-3.57 (BEAKER) (test code = 414) MONOCYTES ABSOLUTE COUNT (BEAKER) 0.73 K/ L 0.30-0.82 (test code = 415) EOSINOPHILS ABSOLUTE COUNT 0.17 K/ L 0.04-0.54 (BEAKER) (test code = 416) BASOPHILS ABSOLUTE COUNT (BEAKER) 0.03 K/ L 0.01-0.08 (test code = 417) IMMATURE GRANULOCYTES-RELATIVE 1 % 0-1 PERCENT (BEAKER) (test code = 2801) Blood Culture - Routine (Left Venipuncture)2019-09-28 01:00:00 Test Item Value Reference Range Interpretation Comments Result (test code = No growth in 5 days 6463-4) [facility] [id number] 01:00:00 Test Item Value Reference Range Interpretation Comments CULTURE (BEAKER) (test No growth in 5 days code = 1095) BLOOD [id number] 01:00:00 Test Item Value Reference Range Interpretation Comments CULTURE (BEAKER) (test No growth in 5 days code = 1095) POCT-GLUCOSE [id number] 22:32:00 Test Item Value Reference Range Interpretation Comments POC-GLUCOSE METER 106 mg/dL 70-110 : TESTED A T [facility] 6720 (BEAKER) (test code = [facility] Julia [facility], 1538) [address]: Clinical Informatics Physician/Techni amada ID = [id number] for DE NNIS, JOSE POCT-GLUCOSE [id number] 17:30:00 Test Item Value Reference Range Interpretation Comments POC-GLUCOSE METER 92 mg/dL 70-110 : TESTED A T [facility] 6720 (BEAKER) (test code = [facility], 1538) [address]: Clinical Informatics Physician/Techni amada ID = [id number] for DELFIN GANNON RAD, CHEST, 1 VIEW, NON [id number] 16:16:00Reason for exam:->sobShould this be performed at the bedside?->YesFINAL REPORT History: Shortness of breath. Comparison: 09/22/2019 Findings: A single view of the chest is submitted. The cardiac silhouette is prominent in size but magnified by low lung volumes and portable technique and appears stable from previous. Retrocardiac opacity in theleft lung may reflect atelectasis in the presence of low lung volumes though pneumonitis should be excluded clinically. There is no pneumothorax, large pleural effusion, evidence of overt pulmonary ed megan or acute bony abnormality. Cervicothoracic fusion hardware is partially visualized. Signed: Jerry Cervantes MDReport Verified Date/Time: 09/27/2019 16:16:19 XR chest 1 view portable / [id number] 16:16:00Interface, External Ris In - 09/27/2019 4:18 PM CDTFINAL REPORT History: Shortness of breath. Comparison: 09/22/2019 Findings: A single view of the chest is submitted. The cardiac silhouette is prominent in size but magnified by low lung volumes and portable technique and appears stable from previous. Retrocardiac opacity in the left lung may reflect atelectasis in the presence of low lung volumes though pneumonitis should be excluded clinically. There is no pneumothorax, large pleural effusion, evidence of overt pulmonary edema or acute bony abnormality. Cervicothoracic fusion hardware is partially visualized. Signed: Jerry Cervantes MDReport Verified Date/Time: 09/27/2019 16:16:19 [facility]2019-09-27 16:07:00 Test Item Value Reference Range Interpretation Comments SARS-COV2/RT-PCR (test code = Negative Not Detected, Negative 78835-6) SARS-COV-2 PERFORMING LAB CPL (test code = 46652-2) [facility] LABS)2019-09-27 16:07:00 Test Item Value Reference Range Interpretation Comments SARS-COV2/RT-PCR (test code = Negative Not Detected, Negative 8711310) SARS-COV-2 PERFORMING LAB CPL (test code = 6507001) POCT-GLUCOSE [id number] 11:12:00 Test Item Value Reference Range Interpretation Comments POC-GLUCOSE METER 121 mg/dL 70-110 H : TESTED A T [facility] 6720 (BEAKER) (test code = [place], 1538) 14371: Clinical Informatics Physician/Techni amada ID = [id number] for QUINCY STANTONIA [id number] 07:56:00 Test Item Value Reference Range Interpretation Comments PHOSPHORUS (BEAKER) (test code = 3.4 mg/dL 2.3-4.7 604) Clinical Informatics Physician ID - JOLYNN [id number] 07:56:00 Test Item Value Reference Range Interpretation Comments MAGNESIUM (BEAKER) (test code = 1.8 mg/dL 1.6-2.6 627) Clinical Informatics Physician ID - JOLYNN LPOCT-GLUCOSE [id number] 07:38:00 Test Item Value Reference Range Interpretation Comments POC-GLUCOSE METER 89 mg/dL 70-110 : TESTED A T [facility] 6720 (BEAKER) (test code = [facility], [facility]) 05273: Clinical Informatics Physician/Techni amada ID = [id number] for ANDRES GANNONRICIA POCT-GLUCOSE [id number] 06:36:00 Test Item Value Reference Range Interpretation Comments POC-GLUCOSE METER 70 mg/dL 70-110 : TESTED A T [facility] 6720 (BEAKER) (test code = [facility], [facility]8) 36346: Clinical Informatics Physician/Techni amada ID = [id number] for DENN IS, JOSE POCT-GLUCOSE [id number] 01:06:00 Test Item Value Reference Range Interpretation Comments POC-GLUCOSE METER 94 mg/dL 70-110 : TESTED A T [facility] 6720 (BEAKER) (test code = [facility], [facility]8) 56230: Clinical Informatics Physician/Techni amada ID = [id number] for DENN IS, JOSE POCT-GLUCOSE [id number] 17:53:00 Test Item Value Reference Range Interpretation Comments POC-GLUCOSE METER 94 mg/dL 70-110 : TESTED A T [facility] 6720 (BEAKER) (test code = [facility], [facility]8) 25277: Clinical Informatics Physician/Techni amada ID = [id number] for CASIE N, SREE POCT-GLUCOSE [id number] 15:47:00 Test Item Value Reference Range Interpretation Comments POC-GLUCOSE METER 123 mg/dL 70-110 H : TESTED A T [facility] 6720 (BEAKER) (test code = [facility], 1538) 31064: Clinical Informatics Physician/Techni amada ID = [id number] for BR OWN, SREE [id number] 06:57:00 Test Item Value Reference Range Interpretation Comments PHOSPHORUS (BEAKER) (test code = 2.8 mg/dL 2.3-4.7 604) Clinical Informatics Physician ID - GRISEL [id number] 06:57:00 Test Item Value Reference Range Interpretation Comments MAGNESIUM (BEAKER) (test code = 1.7 mg/dL 1.6-2.6 627) Clinical Informatics Physician ID - GRISEL MPOCT-GLUCOSE [id number] 17:47:00 Test Item Value Reference Range Interpretation Comments POC-GLUCOSE METER 79 mg/dL 70-110 : TESTED A T [facility] 6720 (BEAKER) (test code = [facility], 1538) 26871: Clinical Informatics Physician/Techni amada ID = [id number] for BROW N, SREE POCT-GLUCOSE [id number] 11:35:00 Test Item Value Reference Range Interpretation Comments POC-GLUCOSE METER 96 mg/dL 70-110 : TESTED A T [facility] 6720 (BEAKER) (test code = [facility], 1538) 57411: Clinical Informatics Physician/Techni amada ID = [id number] for BROW N, SREE POCT-GLUCOSE [id number] 06:33:00 Test Item Value Reference Range Interpretation Comments POC-GLUCOSE METER 105 mg/dL 70-110 : TESTED A T [facility] 6720 (BEAKER) (test code = [facility], 1538) 31417: Clinical Informatics Physician/Techni amada ID = [id number] for DO VE, CHEKARA [id number] 06:32:00 Test Item Value Reference Range Interpretation Comments PHOSPHORUS (BEAKER) (test code = 2.6 mg/dL 2.3-4.7 604) Clinical Informatics Physician ID - GRISEL [id number] 06:32:00 Test Item Value Reference Range Interpretation Comments MAGNESIUM (BEAKER) (test code = 1.7 mg/dL 1.6-2.6 627) Clinical Informatics Physician ID - GRISEL MPOCT-GLUCOSE [id number] 00:14:00 Test Item Value Reference Range Interpretation Comments POC-GLUCOSE METER 126 mg/dL 70-110 H : TESTED A T [facility] 6720 (BEAKER) (test code = [facility], 1538) 18050: Clinical Informatics Physician/Techni amada ID = [id number] for DO VE, CHEKARA POCT-GLUCOSE [id number] 18:19:00 Test Item Value Reference Range Interpretation Comments POC-GLUCOSE METER 86 mg/dL 70-110 : TESTED A T [facility] 6720 (BEAKER) (test code = [facility], 1538) 41543: Clinical Informatics Physician/Techni amada ID = [id number] for RICHARD BEATRIZ, ELICEO POCT-GLUCOSE [id number] 14:12:00 Test Item Value Reference Range Interpretation Comments POC-GLUCOSE METER 114 mg/dL 70-110 H : TESTED A T [facility] 6720 (BEAKER) (test code = [facility], 1538) 05509: Clinical Informatics Physician/Techni amada ID = [id number] for AK INSONU, ELICEO POCT-GLUCOSE [id number] 06:21:00 Test Item Value Reference Range Interpretation Comments POC-GLUCOSE METER 109 mg/dL 70-110 : TESTED A T [facility] 6720 (BEAKER) (test code = [facility], 1538) 09772: Clinical Informatics Physician/Techni amada ID = [id number] for DE NNIS, JOSE CBC W/PLT COUNT & AUTO [id number] 05:16:00 Test Item Value Reference Range Interpretation Comments WHITE BLOOD CELL COUNT (BEAKER) 4.2 K/ L 3.5-10.5 (test code = 775) RED BLOOD CELL COUNT (BEAKER) 3.48 M/ L 4.63-6.08 L (test code = 761) HEMOGLOBIN (BEAKER) (test code = 10.6 GM/DL 13.7-17.5 L 410) HEMATOCRIT (BEAKER) (test code = 32.7 % 40.1-51.0 L 411) MEAN CORPUSCULAR VOLUME (BEAKER) 94.0 fL 79.0-92.2 H (test code = 753) MEAN CORPUSCULAR HEMOGLOBIN 30.5 pg 25.7-32.2 (BEAKER) (test code = 751) MEAN CORPUSCULAR HEMOGLOBIN CONC 32.4 GM/DL 32.3-36.5 (BEAKER) (test code = 752) RED CELL DISTRIBUTION WIDTH 15.0 % 11.6-14.4 H (BEAKER) (test code = 412) PLATELET COUNT (BEAKER) (test 128 K/CU MM 150-450 L code = 756) MEAN PLATELET VOLUME (BEAKER) 10.7 fL 9.4-12.4 (test code = 754) NUCLEATED RED BLOOD CELLS 0 /100 WBC 0-0 (BEAKER) (test code = 413) NEUTROPHILS RELATIVE PERCENT 45 % (BEAKER) (test code = 429) LYMPHOCYTES RELATIVE PERCENT 35 % (BEAKER) (test code = 430) MONOCYTES RELATIVE PERCENT 16 % (BEAKER) (test code = 431) EOSINOPHILS RELATIVE PERCENT 3 % (BEAKER) (test code = 432) BASOPHILS RELATIVE PERCENT 1 % (BEAKER) (test code = 437) NEUTROPHILS ABSOLUTE COUNT 1.88 K/ L 1.78-5.38 (BEAKER) (test code = 670) LYMPHOCYTES ABSOLUTE COUNT 1.48 K/ L 1.32-3.57 (BEAKER) (test code = 414) MONOCYTES ABSOLUTE COUNT (BEAKER) 0.65 K/ L 0.30-0.82 (test code = 415) EOSINOPHILS ABSOLUTE COUNT 0.13 K/ L 0.04-0.54 (BEAKER) (test code = 416) BASOPHILS ABSOLUTE COUNT (BEAKER) 0.02 K/ L 0.01-0.08 (test code = 417) IMMATURE GRANULOCYTES-RELATIVE 1 % 0-1 PERCENT (BEAKER) (test code = 2801) [id number] 05:15:00 Test Item Value Reference Range Interpretation Comments PHOSPHORUS (BEAKER) (test code = 2.3 mg/dL 2.3-4.7 604) Clinical Informatics Physician ID - GRISEL [id number] 05:15:00 Test Item Value Reference Range Interpretation Comments MAGNESIUM (BEAKER) (test code = 1.8 mg/dL 1.6-2.6 627) Clinical Informatics Physician ID - GRISEL MBASIC METABOLIC [id number] 05:15:00 Test Item Value Reference Range Interpretation Comments SODIUM (BEAKER) 134 meq/L 136-145 L (test code = 381) POTASSIUM (BEAKER) 4.1 meq/L 3.5-5.1 (test code = 379) CHLORIDE (BEAKER) 103 meq/L 98-107 (test code = 382) CO2 (BEAKER) (test 27 meq/L 22-29 code = 355) BLOOD UREA NITROGEN 12 mg/dL 7-21 (BEAKER) (test code = 354) CREATININE (BEAKER) 0.97 mg/dL 0.57-1.25 (test code = 358) GLUCOSE RANDOM 122 mg/dL 70-105 H (BEAKER) (test code = 652) CALCIUM (BEAKER) 8.6 mg/dL 8.4-10.2 (test code = 697) EGFR (BEAKER) (test 89 mL/min/1.73 ESTIMA GUILLAUME GFR IS code = 1092) sq m NOT ACCURATE CREATININE CLEARANCE IN PREDICTING GLOMERULAR FILTRATION RATE . ESTIMATED GFR I S NOT APPLICABLE FOR DIALYSIS PATIEN TS. Clinical Informatics Physician ID - GRISEL MPOCT-GLUCOSE [id number] 23:34:00 Test Item Value Reference Range Interpretation Comments POC-GLUCOSE METER 108 mg/dL 70-110 : TESTED A T [facility] 6720 (BANNER) (test code = [facility], 1538) 31656: Clinical Informatics Physician/Techni amada ID = [id number] for DE NNIS, JOSE POCT-GLUCOSE [id number] 18:08:00 Test Item Value Reference Range Interpretation Comments POC-GLUCOSE METER 136 mg/dL 70-110 H : TESTED A T [facility] 6720 (BANNER) (test code [facility], = 1538) 81131: Clinical Informatics Physician/Techni amada ID = [id number] for TSEG GAI, TSIGHEREDA Urinalysis Microscopic [id number] 14:06:00 Test Item Value Reference Range Interpretation Comments RBC, UA (test 6 See_Comment [Automated me ssage] code = 45312-1) The system w [facility] generated this result transmit guillaume reference range : /HPF. The refer ence range was not u sed to interpret th is result as normal/abnormal . WBC, UA (test 58 See_Comment [Automated me ssage] code = 5821-4) The system [facility] generated this result transmit guillaume reference range : /HPF. The refer ence range was not u sed to interpret th is result as normal/abnormal . Mucus (test Occasional code = 8247-9) Squam Epithel, <1 See_Comment [Automated m essage] UA (test code = The system w [facility] 16794-5) generated this result transmit guillaume reference range : /HPF. The refer ence range was not u sed to interpret th is result as normal/abnormal . TIGIST (test code Clinical Informatics Physician ID - tech = TIGIST) [facility] [id number] 14:06:00 Test Item Value Reference Range Interpretation Comments RBC UA (BEAKER) (test code = 519) 6 /HPF WBC UA (BEAKER) (test code = 520) 58 /HPF MUCUS (BEAKER) (test code = 1574) Occasional SQUAMOUS EPITHELIAL (BEAKER) (test < /HPF code = 516) Clinical Informatics Physician ID - techPOCT-GLUCOSE [id number] 14:04:00 Test Item Value Reference Range Interpretation Comments POC-GLUCOSE METER 99 mg/dL 70-110 : TESTED A T [facility] 6720 (BEAKER) (test code = [facility] [place], 1538) 36211: Clinical Informatics Physician/Techni amada ID = [id number] for SONALI MCNEIL Urinalysis with Microscopic If [id number] 13:55:00 Test Item Value Reference Range Interpretation Comments Color, UA (test code = Yellow 5778-6) Clarity, UA (test code = Hazy 5767-9) Specific [place], UA (test 1.018 1.001-1.035 code = 5811-5) pH, UA (test code = 7.0 5.0-8.0 5803-2) Protein, UA (test code = 10 mg/dL Negative A 09889-7) Glucose, UA (test code = Negative Negative 365) Ketones, UA (test code = Trace Negative A 2514-8) Bilirubin, UA (test code = Negative Negative 21438-5) Blood, UA (test code = Trace Negative A 40255-2) Nitrite, UA (test code = Negative Negative 5802-4) Leukocytes, UA (test code Large Negative A = 5799-2) Urobilinogen, UA (test 0.2 mg/dL 0.2-1 code = 79093-2) Specimen Source (test code = 2795) TIGIST (test code = TIGIST) Clinical Informatics Physician ID - [auto] Lab Interpretation (test Abnormal code = 43828-4) [facility] WITH MICROSCOPIC IF [id number] 13:55:00 Test Item Value Reference Range Interpretation Comments COLOR (BEAKER) (test code = 470) Yellow CLARITY (BEAKER) (test code = 469) Hazy SPECIFIC GRAVITY UA (BEAKER) (test 1.018 1.001-1.035 code = 468) PH UA (BEAKER) (test code = 467) 7.0 5.0-8.0 PROTEIN UA (BEAKER) (test code = 10 mg/dL Negative A 464) GLUCOSE UA (BEAKER) (test code = Negative Negative 365) KETONES UA (BEAKER) (test code = Trace Negative A 371) BILIRUBIN UA (BEAKER) (test code = Negative Negative 462) BLOOD UA (BEAKER) (test code = 461) Trace Negative A NITRITE UA (BEAKER) (test code = Negative Negative 465) LEUKOCYTE ESTERASE UA (BEAKER) Large Negative A (test code = 466) UROBILINOGEN UA (BEAKER) (test code 0.2 mg/dL 0.2-1.0 = 463) SOURCE(BEAKER) (test code = 2795) Clinical Informatics Physician ID - [auto]POCT-GLUCOSE [id number] 13:04:00 Test Item Value Reference Range Interpretation Comments POC-GLUCOSE METER 111 mg/dL 70-110 H : TESTED A T [facility] 6720 (BEAKER) (test code [facility], = 1538) 45366: Clinical Informatics Physician/Techni amada ID = [id number] for PADMINI MORENO [id number] 12:43:00 Test Item Value Reference Range Interpretation Comments RPR (test code = 67082-3) Nonreactive Nonreactive Lab Interpretation (test code = Normal 70367-2) [facility] Center[facility]PR2020-[facility] 12:43:00 Test Item Value Reference Range Interpretation Comments RPR SCREEN (BEAKER) (test code = Nonreactive Nonreactive 420) POCT-GLUCOSE [id number] 07:42:00 Test Item Value Reference Range Interpretation Comments POC-GLUCOSE METER 124 mg/dL 70-110 H : TESTED A T [facility] 6720 (BEAKER) (test code = [facility], 1538) 26046: Clinical Informatics Physician/Techni amada ID = [id number] for DE NNIS, JOSE Vitamin D, [id number] 07:20:00 Test Item Value Reference Range Interpretation Comments Vitamin D 25-Hydroxy 22.1 ng/mL 6.6-49.9 (test code = 2764) TIGIST (test code = TIGIST) Effective 01/26/2017: Reference Range ChangeNew: 6.6-49.9 ng/mL Previous: 13.0-47.8 ng/mL Recommended Vitamin D Target Range: 30.0-40.0 ng/mLOperator ID - DB Lab Interpretation (test Normal code = 49858-2) [facility] CenterVITAMIN D, [id number] 07:20:00 Test Item Value Reference Range Interpretation Comments VITAMIN D 25-OH (BEAKER) (test 22.1 ng/mL 6.6-49.9 code = 2764) Effective 01/26/2017: Reference Range ChangeNew: 6.6-49.9 ng/mL Previous: 13.0-47.8 ng/mLRecommended Vitamin D Target Range: 30.0-40.0 ng/mLOperator ID - [id number] 06:46:00 Test Item Value Reference Range Interpretation Comments PHOSPHORUS (BEAKER) (test code = 2.4 mg/dL 2.3-4.7 604) Clinical Informatics Physician ID - GRISEL [id number] 06:46:00 Test Item Value Reference Range Interpretation Comments MAGNESIUM (BEAKER) (test code = 1.6 mg/dL 1.6-2.6 627) Clinical Informatics Physician ID - GRISEL MBASIC METABOLIC [id number] 06:46:00 Test Item Value Reference Range Interpretation Comments SODIUM (BEAKER) 137 meq/L 136-145 (test code = 381) POTASSIUM (BEAKER) 3.4 meq/L 3.5-5.1 L (test code = 379) CHLORIDE (BEAKER) 103 meq/L 98-107 (test code = 382) CO2 (BEAKER) (test 29 meq/L 22-29 code = 355) BLOOD UREA NITROGEN 10 mg/dL 7-21 (BEAKER) (test code = 354) CREATININE (BEAKER) 0.95 mg/dL 0.57-1.25 (test code = 358) GLUCOSE RANDOM 114 mg/dL 70-105 H (NATY) (test code = 652) CALCIUM (NATY) 9.2 mg/dL 8.4-10.2 (test code = 697) EGFR (NATY) (test 91 mL/min/1.73 ESTIMA GUILLAUME GFR IS code = 1092) sq m NOT ACCURATE CREATININE CLEARANCE IN PREDICTING GLOMERULAR FILTRATION RATE . ESTIMATED GFR I S NOT APPLICABLE FOR DIALYSIS PATIEN TS. Clinical Informatics Physician ID - GRISEL MPOCT-GLUCOSE [id number] 00:27:00 Test Item Value Reference Range Interpretation Comments POC-GLUCOSE METER 103 mg/dL 70-110 : TESTED A T [facility] 6720 (NATY) (test code = TODD Dumont [facility], 1538) 08402: Clinical Informatics Physician/Techni amada ID = [id number] for DE MATTADONAY, JOSE HIV-1 Antigen with HIV-1/2 [id number] 17:26:00 Test Item Value Reference Range Interpretation Comments HIV-1 Antigen with HIV 1&2 Nonreactive Nonreactive Antibody (test code = 11297-7) TIGIST (test code = TIGIST) Clinical Informatics Physician ID - DB Lab Interpretation (test Normal code = 56908-6) [facility] CenterPO[facility] [id number] 17:26:00 Test Item Value Reference Range Interpretation Comments POC-GLUCOSE METER 97 mg/dL 70-110 : Notified RN/MD: TESTED (NATY) (test code = AT [facility] 67[address] [facility] 1538) [facility], 770 30: Clinical Informatics Physician/Techni amada ID = [id number] for CHANTELL AMEZCUAPAULEN HIV-1 ANTIGEN WITH HIV-1/2 [id number] 17:26:00 Test Item Value Reference Range Interpretation Comments HIV-1 ANTIGEN WITH HIV 1\\T\\2 Nonreactive Nonreactive ANTIBODY (2) (NATY) (test code = 2586) Clinical Informatics Physician ID - DBRAD, CHEST, 1 VIEW, NON [id number] 16:47:00Reason for exam:- >eval for pnaShould this be performed at the bedside?->YesFINAL REPORT TECHNIQUE: Frontal view of the chest. INDICATION: Evaluate for pneumonia. COMPARISON: None. FINDINGS: LINES/TUBES: None. LUNGS: Decreased aeration of the lungs, which accentuates the pulmonary vasculature and cardiomediastinal silhouette. No consolidation or overt pulmonary edema. PLEURA: No pneumothorax or significant pleural effusion. HEART AND MEDIASTINUM: Prominent cardiac silhouette, which is at least in part due to AP technique and decreased aeration of thelungs. BONES AND SOFT TISSUES: Fusion hardware projects over the cervical spine. Soft tissues are unremarkable. IMPRESSION:Decreased aeration of the lungs, which accentuates the pulmonary vasculature and cardiomediastinal silhouette. Central pulmonary venous congestion cannot be excluded. No consolidation or overt pulmonary edema. Signed: Sofi Merchant MDReport Verified Date/Time: 09/22/2019 16:47:36 Reading Location: [address] Body Reading Room POCT-GLUCOSE [id number] 12:05:00 Test Item Value Reference Range Interpretation Comments POC-GLUCOSE METER 53 mg/dL 70-110 L : TESTED A T [facility] 6720 (BEAKER) (test code = [facility], 1538) 57155: Clinical Informatics Physician/Techni amada ID = [id number] for ELICEO STANLEY T4, [id number] 08:52:00 Test Item Value Reference Range Interpretation Comments Free T4 (test code = 0.94 ng/dL 0.7-1.48 3024-7) TIGIST (test code = TIGIST) Clinical Informatics Physician ID - JANAE C Lab Interpretation (test Normal code = 58253-8) [facility] CenterT4, [id number] 08:52:00 Test Item Value Reference Range Interpretation Comments FREE T4 (BEAKER) (test code = 655) 0.94 ng/dL 0.70-1.48 Clinical Informatics Physician ID - JANAE CHemoglobin [id number] 08:43:00 Test Item Value Reference Range Interpretation Comments Hemoglobin A1C (test code = 4548-4) 5.4 % 4.3-6.1 Lab Interpretation (test code = Normal 77746-9) [facility] CenterHEMOGLOBIN [id number] 08:43:00 Test Item Value Reference Range Interpretation Comments HEMOGLOBIN A1C (BEAKER) (test code = 5.4 % 4.3-6.1 368) Vitamin B12 and [id number] 08:20:00 Test Item Value Reference Range Interpretation Comments Vitamin B12 (test 869 pg/mL 213-816 H code = 2132-9) Folate (test code = 19.30 ng/mL See_Comment [Automa guillaume 2284-8) message] The system which generated this result transmit guillaume reference range : >=7.00. The reference range was not used to interpret this result as normal/abnormal . TIGIST (test code = TIGITS) Clinical Informatics Physician ID - JANAE C Lab Interpretation Abnormal (test code = 58516-9) [facility] CenterVITAMIN B12 AND [id number] 08:20:00 Test Item Value Reference Range Interpretation Comments VITAMIN B12 (BEAKER) (test code = 869 pg/mL 213-816 H 774) FOLATE (BEAKER) (test code = 362) 19.30 ng/mL >=7.00 Clinical Informatics Physician ID - JANAE CTSH/Free T4 If [id number] 08:18:00 Test Item Value Reference Range Interpretation Comments TSH (test code = 0.158 See_Comment L [Automated 17039-2) message] The system which generated this result transmit guillaume reference range : 0.350 - 4.940 uIU/mL. The reference range was not used to interpret this result as normal/abnormal . TIGIST (test code = TIGIST) Clinical Informatics Physician ID - JANAE C Lab Interpretation Abnormal (test code = 23392-9) [facility] CenterTSH/FREE T4 IF [id number] 08:18:00 Test Item Value Reference Range Interpretation Comments THYROID STIMULATING HORMONE 0.158 uIU/mL 0.350-4.940 L (BEAKER) (test code = 772) Clinical Informatics Physician ID - JANAE [id number] 07:41:00 Test Item Value Reference Range Interpretation Comments Ammonia (test code = 35 See_Comment [Autom ated 15952-6) message] The system which generated this result transmit guillaume reference range : 18 - 72 mol/L . The reference range was not u sed to interpret th is result as normal/abnormal . TIGIST (test code = TIGIST) Clinical Informatics Physician ID - AAHAMID Lab Interpretation Normal (test code = 87386-0) [facility] CenterAMMONIA2020-06-06 07:41:00 Test Item Value Reference Range Interpretation Comments AMMONIA (BEAKER) (test code = 348) 35 mol/L 18-72 Clinical Informatics Physician ID - AAHAMIDTroponin [id number] 07:16:00 Test Item Value Reference Range Interpretation Comments Troponin I (test code = 0.01 ng/mL 0-0.03 68404-7) TIGIST (test code = TIGIST) Troponin I (TnI) levels must be interpreted in the context of the presenting symptoms and the clinical findings. Elevated TnI levels indicate myocardial damage, but are not specific for ischemic heart disease. Elevated TnI levels are seen in patients with other cardiac conditions (including myocarditis and congestive heart failure), and slight TnI elevations occur in patients with other conditions, including sepsis, renal failure, acidosis, acute neurological disease, and persistent tachyarrhythmia.Opera tor ID - AAHAMID Lab Interpretation (test Normal code = 53118-2) [facility] CenterTROPOB[facility] [id number] 07:16:00 Test Item Value Reference Range Interpretation Comments TROPONIN I (BEAKER) (test code = 0.01 ng/mL 0.00-0.03 397) Troponin I (TnI) levels must be interpreted in the context of the presenting symptoms and the clinical findings. Elevated TnI levels indicate myocardial damage, but are not specific for ischemic heart disease. Elevated TnI levels are seen in patients with other cardiac conditions (including myocarditis and congestive heart failure), and slight TnI elevations occur in patients with other conditions, including sepsis, renal failure, acidosis, acute neurological disease, and persistent tachyarrhythmia.Clinical Informatics Physician ID - AAHAMIDC-Reactive Protein 2019-09-22 07:14:00 Test Item Value Reference Range Interpretation Comments CRP (test code = 676) 3.32 mg/dL 0-0.5 H TIGIST (test code = TIGIST) Clinical Informatics Physician ID - AAHAMID Lab Interpretation (test Abnormal code = 31956-7) [facility] CenterC-REACTIVE [id number] 07:14:00 Test Item Value Reference Range Interpretation Comments C-REACTIVE PROTEIN (BEAKER) (test 3.32 mg/dL 0.00-0.50 H code = 676) Clinical Informatics Physician ID - AAALEJANDROIDValproic acid level, [id number] 02:48:00 Test Item Value Reference Range Interpretation Comments Valproic Acid, Total 46 ug/mL 50-100 L (test code = 4086-5) TIGIST (test code = TIGIST) Therapeutic range for some clinical conditions may be >100 ug/mLOperator ID - DESHAWN W Lab Interpretation (test Abnormal code = 35217-8) [facility] CenterVALPROIC ACID LEVEL, [id number] 02:48:00 Test Item Value Reference Range Interpretation Comments VALPROIC ACID TOTAL (BEAKER) (test 46 ug/mL 50-100 L code = 924) Therapeutic range for some clinical conditions may be >100 ug/mLOperator ID - DESHAWN WProthrombin time/[id number] 02:31:00 Test Item Value Reference Interpretation Comments Range Protime (test code = 15.3 See_Comment H [Autom ated 5902-2) message] The system which generated this result transmitted reference range : 11.9 - 14.2 seconds. The reference range was not used to interpret this result as normal/abnormal . INR (test code = 1.2 See_Comment [Automated 3501-6) message] The system which generated this result transmitted reference range : <=5.9. The reference range was not used to interpret this result as normal/abnormal . TIGIST (test code = Effective 09/13/2018: TIGIST) PT Reference Range ChangeNew: 11.9-14.2 Previous: 11.7-14.7 RECOMMENDED COUMADIN/WARFARIN INR THERAPY RANGESSTANDARD DOSE: 2.0-3.0 Includes: PROPHYLAXIS for venous thrombosis, systemic embolization; TREATMENT for venous thrombosis and/or pulmonary embolus.HIGH RISK: Target INR is 2.5-3.5 for patients wiht mechanical heart valves. Lab Interpretation Abnormal (test code = 43699-3) [id number] 02:31:00 Test Item Value Reference Range Interpretation Comments PROTIME (BEAKER) (test code = 15.3 seconds 11.9-14.2 H 759) INR (BEAKER) (test code = 370) 1.2 <=5.9 Effective 09/13/2018: PT Reference Range ChangeNew: 11.9-14.2 Previous: 11.7- 14.7RECOMMENDED COUMADIN/WARFARIN INR THERAPY RANGESSTANDARD DOSE: 2.0-3.0 Includes: PROPHYLAXIS for venous thrombosis, systemic embolization; TREATMENT for venous thrombosis and/or pulmonary embolus.HIGH RISK: Target INR is2.5-3.5 for patients wiht mechanical heart valves.TROPONIN [id number] 02:29:00 Test Item Value Reference Range Interpretation Comments TROPONIN I (BEAKER) (test code = 397) < ng/mL 0.00-0.03 Troponin I (TnI) levels must be interpreted in the context of the presenting symptoms and the clinical findings. Elevated TnI levels indicate myocardial damage, but are not specific for ischemic heart disease. Elevated TnI levels are seen in patients with other cardiac conditions (including myocarditis and congestive heart failure), and slight TnI elevations occur in patients with other conditions, including sepsis, renal failure, acidosis, acute neurological disease, and persistent tachyarrhythmia.Clinical Informatics Physician ID [facility] function [id number] 02:23:00 Test Item Value Reference Range Interpretation Comments Protein, Total (test 6.0 See_Comment Specime n slightly code = 2885-2) hemolyzed [Automated message] The system which generated this result transmit guillaume reference range : 6.0 - 8.3 gm/dL . The reference range was not u sed to interpret th is result as normal/abnormal . Albumin (test code = 3.2 g/dL 3.5-5 L Specime n slightly 31220-4) hemolyzed Total Bilirubin (test 0.5 mg/dL 0.2-1.2 Specim en slightly code = 1975-2) hemolyzed Bilirubin, Direct 0.2 mg/dL 0.1-0.5 Specimen s lightly (test code = 1967-7) hemolyz ed Alkaline Phosphatase 55 U/L 40-150 (test code = 6768-6) AST (test code = 21 U/L 5-34 Specimen sl ightly 1920-8) hemolyzed ALT (test code = 15 U/L 6-55 Specimen sl ightly 1742-6) hemolyzed TIGIST (test code = TIGIST) Clinical Informatics Physician ID - DESHAWN Karrie Lab Interpretation Abnormal (test code = 54436-5) [facility] METABOLIC [id number] 02:23:00 Test Item Value Reference Range Interpretation Comments SODIUM (BEAKER) 138 meq/L 136-145 (test code = 381) POTASSIUM (BEAKER) 3.8 meq/L 3.5-5.1 Specimen slightly (test code = 379) hemolyzed CHLORIDE (BEAKER) 105 meq/L 98-107 (test code = 382) CO2 (BEAKER) (test 25 meq/L 22-29 code = 355) BLOOD UREA NITROGEN 13 mg/dL 7-21 (BEAKER) (test code = 354) CREATININE (BEAKER) 1.06 mg/dL 0.57-1.25 Specimen slightly (test code = 358) hemolyzed GLUCOSE RANDOM 87 mg/dL 70-105 (BEAKER) (test code = 652) CALCIUM (BEAKER) 9.0 mg/dL 8.4-10.2 (test code = 697) EGFR (BEAKER) (test 80 mL/min/1.73 ESTIMA GUILLAUME GFR IS code = 1092) sq m NOT ACCURATE CREATININE CLEARANCE IN PREDICTING GLOMERULAR FILTRATION RATE . ESTIMATED GFR I S NOT APPLICABLE FOR DIALYSIS PATIEN TS. Clinical Informatics Physician ID - DESHAWN WHEPATIC FUNCTION [id number] 02:23:00 Test Item Value Reference Range Interpretation Comments TOTAL PROTEIN (BEAKER) 6.0 gm/dL 6.0-8.3 Speci men slightly (test code = 770) hemolyzed ALBUMIN (BEAKER) (test 3.2 g/dL 3.5-5.0 L Speci men slightly code = 1145) hemolyzed BILIRUBIN TOTAL 0.5 mg/dL 0.2-1.2 Specimen sli ghtly (BEAKER) (test code = hemoly zed 377) BILIRUBIN DIRECT 0.2 mg/dL 0.1-0.5 Specimen sl ightly (BEAKER) (test code = hemoly zed 706) ALKALINE PHOSPHATASE 55 U/L 40-150 (BEAKER) (test code = 346) AST (SGOT) (BEAKER) 21 U/L 5-34 Specimen slightly (test code = 353) hemolyzed ALT (SGPT) (BEAKER) 15 U/L 6-55 Specimen slightly (test code = 347) hemolyzed Clinical Informatics Physician ID - DESHAWN WCBC W/PLT COUNT & AUTO [id number] 02:01:00 Test Item Value Reference Range Interpretation Comments WHITE BLOOD CELL COUNT (BEAKER) 8.9 K/ L 3.5-10.5 (test code = 775) RED BLOOD CELL COUNT (BEAKER) 3.81 M/ L 4.63-6.08 L (test code = 761) HEMOGLOBIN (BEAKER) (test code = 11.6 GM/DL 13.7-17.5 L 410) HEMATOCRIT (BEAKER) (test code = 36.6 % 40.1-51.0 L 411) MEAN CORPUSCULAR VOLUME (BEAKER) 96.1 fL 79.0-92.2 H (test code = 753) MEAN CORPUSCULAR HEMOGLOBIN 30.4 pg 25.7-32.2 (BEAKER) (test code = 751) MEAN CORPUSCULAR HEMOGLOBIN CONC 31.7 GM/DL 32.3-36.5 L (BEAKER) (test code = 752) RED CELL DISTRIBUTION WIDTH 15.4 % 11.6-14.4 H (BEAKER) (test code = 412) PLATELET COUNT (BEAKER) (test 111 K/CU MM 150-450 L code = 756) MEAN PLATELET VOLUME (BEAKER) 10.7 fL 9.4-12.4 (test code = 754) NUCLEATED RED BLOOD CELLS 0 /100 WBC 0-0 (BEAKER) (test code = 413) NEUTROPHILS RELATIVE PERCENT 68 % (BEAKER) (test code = 429) LYMPHOCYTES RELATIVE PERCENT 17 % (BEAKER) (test code = 430) MONOCYTES RELATIVE PERCENT 14 % (BEAKER) (test code = 431) EOSINOPHILS RELATIVE PERCENT 1 % (BEAKER) (test code = 432) BASOPHILS RELATIVE PERCENT 0 % (BEAKER) (test code = 437) NEUTROPHILS ABSOLUTE COUNT 6.05 K/ L 1.78-5.38 H (BEAKER) (test code = 670) LYMPHOCYTES ABSOLUTE COUNT 1.47 K/ L 1.32-3.57 (BEAKER) (test code = 414) MONOCYTES ABSOLUTE COUNT (BEAKER) 1.26 K/ L 0.30-0.82 H (test code = 415) EOSINOPHILS ABSOLUTE COUNT 0.04 K/ L 0.04-0.54 (BEAKER) (test code = 416) BASOPHILS ABSOLUTE COUNT (BEAKER) 0.03 K/ L 0.01-0.08 (test code = 417) IMMATURE GRANULOCYTES-RELATIVE 0 % 0-1 PERCENT (BEAKER) (test code = 2801) CHEM [id number] 02:31:0028.0[facility] SzteqcbGVRPHG1625-90-20 00:25:0061 [facility] HsqkhsaOVCRNA6683-07-29 00:25:12014Zqksylfx DqfrlzhDRHHJC9865-81-80 00:25:0051[facility] HvesaxyMWXJTK8647-77-69 00:25:00 Test Item Value Reference Range Interpretation Comments CHD Risk (test code = CHD Risk) 4.08 1 4.00-7.30 [facility] WzbqftiOVXGDW9105-16-88 00:25:98794Ihrrcsbx MrsyplgUMOGFN4351-75-77 00:25:00 Test Item Value Reference Range Interpretation Comments VLDL (test code = VLDL) 12 1 [facility]annSPECIAL ZRDZOIFCK4571-62-02 00:25:006.2[facility] HermannANEMIA DNZUS7734-98-04 15:33:12088Blmjmmra HermannCHEM UXFAG6867-42-44 15:33:00<10.0 [facility]annCHEM JLCRQ0605-89-57 15:33:0084[facility]annCHEM PANEL 2019-07-08 15:33:0016[facility]annCHEM PTHBY2673-97-89 15:33:001.20[facility]annCHEM ULBKT2922-11-48 15:33:38125Cepvyhdu HermannCHEM BRFOQ6309-55-83 15:33:004.0[facility]annCHEM IKNAL1984-33-97 15:33:91880Clfvfefu HermannCHEM TCXYJ4691-66-30 15:33:0027[facility]annCHEM UXXIF4554-23-17 15:33:009.8 [facility]annCHEM KMMOT3224-36-06 15:33:0012.0[facility]annCHEM PANEL 2019-07-08 15:33:0062[facility] HacqenxQJDJTPBTQP5531-98-16 15:33:005.0[facility] CbtxbyaUGKUUZXTCN1536-05-55 15:33:004.22[facility] UaalpihOPDCLQNQSU3784-35-50 15:33:0012.6[facility] KevtfcfGXQQAWGVVY4770-88-50 15:33:0037.4[facility] QBMLLENIKB6096-94-49 15:33:0088.6[facility] NgdzfikJIJKGKKMYF5722-74-17 15:33:00 Test Item Value Reference Range Interpretation Comments MCH (test code = MCH) 29.9 pg 27.0-31.0 [facility] LpshdnsHCAIWDYIEK6511-01-01 15:33:0033.7[facility] HermannHEMATOLOGY 2019-07-08 15:33:0015.2[facility] WgvowemHUBTPSONTW1965-96-24 15:33:27664Ydtvlnsl MobzbpvQBCWRTTKGD1908-45-47 15:33:008.0[facility] QrxotvgGOYCWXSGCZ5657-39-48 15:33:0062.8[facility] ExzvkslOLHTVESVFD4767-13-67 15:33:0024.6[facility] YDGOUGUDPU0201-31-55 15:33:0010.1[facility] WppiopyHQJHNHWXFG6732-89-77 15:33:00 1.9[facility] BojfogmWQDMZNCLLG7429-51-16 15:33:000.6[facility]annHEMATOLOGY 2019-07-08 15:33:003.1[facility] AabnqawQGXTECVQFP8187-01-55 15:33:001.2[facility] RdvkdyuMOJMKDPYRM1203-17-53 15:33:000.5[facility] CcnnlcuWIQGDCYZBN8506-61-12 15:33:000.1[facility] HermannCHEM PKWRZ9949-52-10 11:10:0095[facility]annCHEM BUCFH0003-77-43 11:10:0011[facility]annCHEM ZSEWM7826-03-64 11:10:001.03 [facility]annCHEM GSKBO5425-62-43 11:10:70850Itybcxjp HermannCHEM PANEL 2019-07-07 11:10:003.7[facility] HermannCHEM RORSH7047-26-16 11:10:97906Wtqnkwcj HermannCHEM SQFPJ3018-06-04 11:10:0027[facility]annCHEM FORMA3784-61-94 11:10:009.8[facility]annCHEM KEISV8343-31-28 11:10:006.6[facility]annCHEM IMWIK6003-89-75 11:10:003.4[facility]annCHEM UUBPT9729-03-49 11:10:0019 [facility]annCHEM SBWOF9815-56-30 11:10:0016[facility]annCHEM PANEL 2019-07-07 11:10:0070[facility]annCHEM ENYLI7750-11-07 11:10:000.7[facility]annCHEM FCRAU5743-54-38 11:10:009.7[facility]annCHEM VMWMC2283-95-16 11:10:00 Test Item Value Reference Range Interpretation Comments B/C Ratio (test code = B/C Ratio) 11 1 6-25 [facility]annCHEM LMXPW5645-39-51 11:10:003.2[facility]annCHEM PANEL 2019-07-07 11:10:00 Test Item Value Reference Range Interpretation Comments A/G Ratio (test code = A/G Ratio) 1.1 1 0.7-1.6 [facility]annCHEM XKIQT8949-14-77 11:10:0075[facility]annHEMATOLOGY 2019-07-07 11:10:004.9[facility] CxcliabUBVEJXIBYM8256-89-34 11:10:004.14[facility] VtqtcdnQTLXJRTLBA3608-34-73 11:10:0012.emorial AnamxmuXNELELULQR5129-74-03 11:10:0036.7[facility] FgzoskcYYDVAIQBQF8763-57-90 11:10:0088.6[facility] IKVEAHOKQK8350-03-80 11:10:00 Test Item Value Reference Range Interpretation Comments MCH (test code = MCH) 29.3 pg 27.0-31.0 [facility] GftjuivRMVRUVHDTV6048-01-32 11:10:0033.1[facility] HermannHEMATOLOGY 2019-07-07 11:10:0014.8[facility] WmryvpaYUBQLSHOJD5656-54-41 11:10:00367Zvblrzze YdayprvLRWIYDZZWP7057-03-67 11:10:007.9[facility] FbbunxpEVBNUBTDRB5237-69-66 11:10:0051.1[facility] HszdgidFVFJUIUPBD1384-89-69 11:10:0029.1[facility] NMZOPTUQNU4553-93-87 11:10:0016.1[facility] YakpvqePNLUBJDWFI1681-44-92 11:10:00 3.1[facility] BnahypgLUMDEHGFXI7223-18-30 11:10:000.6[facility] HermannHEMATOLOGY 2019-07-07 11:10:002.5[facility] ImbfvzoRINNLMPLLK4775-44-02 11:10:001.4[facility] ZeqpkyuCJHYERNZOS4991-49-11 11:10:000.8[facility] EcwtqnlZDPIIOAYOS1247-10-34 11:10:000.2[facility] VefkrabOQHSBEGMFK1392-26-16 11:10:000.34[facility] URINE AND FBLWU8242-72-19 11:05:00Colorless *NA*(07/07/19 6:05 AM)[facility] CLIAG0091-73-36 11:05:00Clear (07/07/19 6:05 AM)[facility] URINE AND QCCZV3152-83-51 11:05:00 Test Item Value Reference Range Interpretation Comments UA Spec Grav (test code = UA Spec 1.005 1 Grav) [facility]2745-95-86 11:05:00 Test Item Value Reference Range Interpretation Comments UA pH (test code = UA pH) 8.0 1 5.0-8.0 [facility] DZOGH9757-75-09 11:05:00Negative (07/07/19 6:05 AM) [facility] XRQEV0932-97-79 11:05:00Negative *NA*(07/07/19 6:05 AM) [facility] ANAQB3849-21-14 11:05:00Negative *NA*(07/07/19 6:05 AM) [facility] IKQOY0157-59-93 11:05:00Negative *NA*(07/07/19 6:05 AM) [facility] XADDU9179-28-26 11:05:00Negative (07/07/19 6:05 AM) [facility] FQQTL9635-06-47 11:05:00Negative (07/07/19 6:05 AM) [facility] PESFA7577-19-49 11:05:00Negative (07/07/19 6:05 AM) [facility] IYHUT3787-49-39 11:05:00Performed (07/07/19 6:05 AM) [facility] GRZTT4132-26-07 11:05:00<1[facility] BJLZT5217-42-69 11:05:001[facility] HXHNE6472-01-04 11:05:00None Seen (07/07/19 6:05 AM)[facility]annCHEM YUTUZ0558-23-56 14:26:0086[facility]annCHEM SINXS7145-26-50 14:26:0015[facility]annCHEM EKECF3626-52-35 14:26:000.90[facility]annCHEM GBVIT1475-27-47 14:26:12366Bqwtfojc HermannCHEM OXTHL8912-09-23 14:26:004.1[facility]annCHEM ZIOSY2759-82-49 14:26:18118 [facility]annCHEM JQFUD4229-97-42 14:26:0030[facility]annCHEM PANEL 2019-05-27 14:26:009.2[facility]annCHEM BAOSL1494-70-66 14:26:009.1[facility]annCHEM YEGKF9665-10-82 14:26:0089[facility]annCHEM KLUIJ7279-52-79 12:40:0090[facility]annCHEM CATPQ9354-01-67 12:40:0016[facility]annCHEM KALDP1776-71-83 12:40:000.90[facility]annCHEM CTIUY6034-26-98 12:40:01530 [facility]annCHE[facility] IXBQE0122-30-99 12:40:003.9[facility]annCHEM PANEL 2019-05-26 12:40:0098[facility]annCHEM EQWGW0066-63-18 12:40:0030[facility]annCHEM SVVNA6358-97-17 12:40:009.3[facility]annCHEM OTQHN5285-60-51 12:40:009.9[facility]annCHEM YYLLS7362-84-86 12:40:0089[facility]annCHEM SJXUN4732-05-20 15:43:91913Dpwfqszh HermannCHEM FHLTX6553-04-42 15:43:0016 [facility]annCHEM OTAUY5898-85-78 15:43:000.90[facility]annCHEM PANEL 2019-05-25 15:43:70065Smvankkj HermannCHEM NAQHG0992-85-21 15:43:004.5[facility]annCHEM XOBTJ2586-67-72 15:43:0097[facility]annCHEM ITKOS8097-65-96 15:43:0028[facility]annCHEM IPXDD2546-80-46 15:43:008.7[facility]annCHEM PNZKT6006-34-20 15:43:0011.5[facility]annCHEM XYILN0394-72-21 15:43:0089 [facility] OZOQZ7108-96-60 21:24:00Marked *ABN*(05/23/19 3:24 PM) [facility] KOZDG0813-03-68 21:24:00 Test Item Value Reference Range Interpretation Comments UA Spec Grav (test code = UA Spec 1.013 1 Grav) [facility] SNLCD0136-19-18 21:24:00 Test Item Value Reference Range Interpretation Comments UA pH (test code = UA pH) 8.0 1 5.0-8.0 [facility] RAMFR6710-10-48 21:24:00Negative *NA*(05/23/19 3:24 PM) [facility] XTHVE4231-47-04 21:24:00Negative (05/23/19 3:24 PM) [facility] STOWE1100-83-59 21:24:00Negative (05/23/19 3:24 PM) [facility] GRCHH8641-54-45 21:24:00Negative (05/23/19 3:24 PM) [facility] FPFBF8699-33-45 21:24:001[facility] SCVXF3002-50-82 21:24:00<1[facility] TAMNH3693-80-61 21:24:00 Performed *NA*(05/23/19 3:24 PM)[facility] SNLQX1341-14-11 21:24:00 <=1.0[facility]annCHEM VJWUW5819-63-59 12:15:006.1[facility]annCHEM NGWAB5771-83-34 12:15:002.8[facility]annCHEM OJKTQ1678-08-32 12:15:0013 [facility]annCHE[facility] ICSOC3629-25-59 12:15:0023[facility]annCHEM PANEL 2019-05-21 12:15:0080[facility]annCHEM GHGBL5172-34-73 12:15:000.4[facility]annCHEM WNKUP4281-17-03 12:15:00 Test Item Value Reference Range Interpretation Comments B/C Ratio (test code = B/C Ratio) 20 1 6-25 [facility]annCHE[facility] TYCDA2111-05-04 12:15:003.3[facility]annCHEM PANEL 2019-05-21 12:15:00 Test Item Value Reference Range Interpretation Comments A/G Ratio (test code = A/G Ratio) 0.8 1 0.7-1.6 [facility]annCHE[facility] NTJAC7608-97-63 09:21:001.9[facility]annCHEM PANEL 2019-05-20 09:21:003.1[facility] TwqbtuhJAXSPUCBOF5165-12-06 09:21:005.8[facility] RhdnugsCDZNLKBPMY0362-58-99 09:21:004.01[facility] XgttmhyEKFVEQVGHH4667-94-41 09:21:0012.0[facility] CybjuixEWYOTFEMPK6798-22-70 09:21:0036.5[facility] NQWCERJRJB1081-47-40 09:21:0091.1[facility] XflpdjeNKCNCQPDBE6480-14-23 09:21:00 Test Item Value Reference Range Interpretation Comments MCH (test code = MCH) 29.9 pg 27.0-31.0 [facility] CtnaiivWZILMADPZJ1624-02-07 09:21:0032.8[facility] HermannHEMATOLOGY 2019-05-20 09:21:0016.0[facility] WluyotoCPTVXAQSCS7255-00-18 09:21:05094Krhpjlmp PdbcygpSHNAGOTQFH3488-65-96 09:21:008.2[facility] ValttnnCSJADKUEHF5518-42-95 09:21:0065.6[facility] HmlisprWRQHZLKDOW3615-80-77 09:21:0018.2[facility] WFKZAJZBVF8136-91-79 09:21:0013.8[facility] GbkpjzrPSYDNYOPZQ7610-36-01 09:21:00 2.3[facility] WhhnzreMJVAWMMFDW8884-42-48 09:21:000.1[facility]annHEMATOLOGY 2019-05-20 09:21:003.8[facility] ErxnzmxWHHTAKDXRU5379-75-38 09:21:001.0[facility] ShsoptkYNJWGNZGQQ8124-82-14 09:21:000.8[facility] SyfzdkjNEJMAZDZXC6009-68-86 09:21:000.1[facility] NthlosbTKBEPCISVL3952-72-84 09:21:000.0[facility] HermannCHEM JDTGB0293-97-41 07:15:002.4[facility]annCHEM VDQZC2516-05-60 07:15:002.7 [facility] IrizuuwIJCAZLQGDH2466-14-38 07:15:0056.8[facility]annHEMATOLOGY 2019-05-19 07:15:0025.9[facility] MrasswkBWEVKCJNOF5850-72-86 07:15:0014.8[facility] QpfwdcmEYJDGFGCBW5694-95-23 07:15:002.4[facility] GzoknurWMUVWJPKFM5209-38-33 07:15:000.1[facility] HxedyoeTJYRFKEZHG4460-83-54 07:15:002.7[facility] CMQEJWRAUJ3724-23-90 07:15:001.2[facility] QpejqwkTOGTNAOIYW5016-70-06 07:15:000.7 [facility] OhvhcrdLGMAFWHVDL1754-99-53 07:15:000.1[facility]annHEMATOLOGY 2019-05-19 07:15:000.0[facility] WkpkmowEXFCFZEOYY1116-15-57 07:15:004.8[facility] GqsqlmtZFGGISJVGK6926-29-82 07:15:004.59[facility] AmzljwyBKIDBEXMWA4391-93-68 07:15:0014.0[facility] NxegopnBNFHEILNUQ3024-90-81 07:15:0041.5[facility] QQPYVRTHTN9542-02-17 07:15:0090.4[facility] UfggrlzJFTGASUTFT9592-17-33 07:15:00 Test Item Value Reference Range Interpretation Comments MCH (test code = MCH) 30.5 pg 27.0-31.0 [facility] QgbdynoUANHNFPEVE8980-79-25 07:15:0033.7[facility]annHEMATOLOGY 2019-05-19 07:15:0016.0[facility] HxjbcpcGHJOUYUWSS0620-27-20 07:15:64573Ptcqetqs QgwuuttNPACPQHQLU5269-49-07 07:15:008.6[facility] HermannPARATHYROID PROFILE 2019-05-19 07:15:001.31[facility] HermannPARATHYROID VBRZMBW9143-29-84 07:15:00 1.32[facility]annCHEM SSAKG9438-91-65 08:37:002.3[facility]annCHEM PANEL 2019-05-18 08:37:003.3[facility] VetfmnuITRCEUAFYQ5905-02-61 08:37:0054.1[facility] EjfmcleSDQRLHVVGG5407-88-20 08:37:0028.3[facility] StazcdfBPDZXOJEFN9227-60-88 08:37:0013.8[facility] PxgvrhuVBLILMMJQX5798-49-13 08:37:003.3[facility] DLIFPPLNYG6619-59-42 08:37:000.5[facility] HxirhcnKWHGOLTFSJ4216-73-20 08:37:002.5 [facility] MmpbvpjXMZQGUOJJE8929-92-44 08:37:001.3[facility]annHEMATOLOGY 2019-05-18 08:37:000.7[facility] FrqbbasJQQNHDXHKR0694-92-27 08:37:000.2[facility] PthhrjeAYEAZQZBLB2642-64-48 08:37:000.0[facility] XmlbacoRUJCUQPPMI3333-60-94 08:37:004.7[facility] NhgmoevEQUEUYVJPW4949-08-12 08:37:003.73[facility] TNMCTQMGOY4878-75-93 08:37:0011.2[facility] VucjdzeATXDHTXGUA9491-10-03 08:37:00 33.8[facility] ZcwsegxVHPRJVWIPK0165-18-35 08:37:0090.4[facility]annHEMATOLOGY 2019-05-18 08:37:00 Test Item Value Reference Range Interpretation Comments MCH (test code = MCH) 29.9 pg 27.0-31.0 [facility] HhewwcdRBUCUEOUFI0016-80-44 08:37:0033.1[facility]annHEMATOLOGY 2019-05-18 08:37:0015.7[facility] SdpsfvgYFSDYVQLYP1676-07-73 08:37:40597Dlioeeon CppuslqETZASTXDAK5121-61-20 08:37:008.3[facility] HermannPARATHYROID PROFILE 2019-05-18 08:37:001.16[facility] HermannPARATHYROID DCHTUUE4597-72-98 08:37:00 1.16[facility] HermannBACTERIAL - QBLWOBHS7223-24-83 17:12:00Negative (05/17/19 11:12 AM)[facility] HermannCARDIAC HZHXNZV1189-90-61 17:12:00<0.02[facility] HermannCARDIAC TNTAJRC3050-41-55 17:12:0030[facility]annCHEM BRGWT6865-73-23 17:12:006.3[facility]annCHEM UYJCT7114-94-58 17:12:003.1[facility]annCHEM OCBMT5491-14-78 17:12:0017[facility]annCHEM TGFPV0079-93-69 17:12:0019 [facility]annCHEM GHFRD4684-91-64 17:12:0095[facility]annCHEM PANEL 2019-05-17 17:12:000.4[facility]annCHEM NLOJC9723-51-24 17:12:00 Test Item Value Reference Range Interpretation Comments B/C Ratio (test code = B/C Ratio) 23 1 6-25 [facility]annCHEM SFSHL5524-51-48 17:12:003.2[facility]annCHEM PANEL 2019-05-17 17:12:00 Test Item Value Reference Range Interpretation Comments A/G Ratio (test code = A/G Ratio) 1.0 1 0.7-1.6 [facility] XBPWE5593-69-35 17:12:0014.0[facility]annCHEM PANEL 2019-05-17 17:12:001.1[facility]annCHEM CFSSQ5390-98-34 17:12:00<0.05 [facility] HermannCHEM TXBSK2165-26-97 17:12:02345Ossnphqj HermannENDOCRINOLOGY 2019-05-17 17:12:0013.3[facility] OcglmuvFQACRXPCVA4621-44-09 17:12:00 Test Item Value Reference Range Interpretation Comments PT (test code = PT) 13.9 s 12.0-14.7 [facility] CenterYnzjojuZWDGUUAQOX5195-47-59 17:12:00 Test Item Value Reference Range Interpretation Comments INR (test code = INR) 1.07 1 0.85-1.17 [facility] CenterHvdxdblYJNKAJIKQR7140-63-49 17:12:00 Test Item Value Reference Range Interpretation Comments PTT (test code = PTT) 30.1 s 22.9-35.8 [facility] CenterannMOLECULAR UABRCCWUHT6627-01-65 17:12:00Nasophrngl Swb *NA*(05/17/19 11:12 AM)[facility] HermannMOLECULAR KLCIWAEPSY8977-34-05 17:12:00 Negative *NA*(05/17/19 11:12 AM)[facility]annMOLECULAR SUOUXTIOQU3149-13-05 17:12:00Negative *NA*(05/17/19 11:12 AM)[facility]annMOLECULAR DIAGNOSTIC 2019-05-17 17:12:00Negative *NA*(05/17/19 11:12 AM)[facility] CenterannPARATHYROID GXATQMV3471-96-31 17:12:001.15[facility]annPARATHYROID ONVMMFQ5146-43-86 17:12:001.12[facility]annSPECIAL RSKFKFQUR8497-86-12 17:12:005.8[facility]annURINE DQCE7050-97-95 17:12:49388Oghtafge HermannURINE XCXV8349-21-89 17:12:76020Dpzwayug HermannCHEM EMCGK9579-98-20 11:10:41399Ifabvbmi HermannCHEM ZQUPP8348-70-75 11:10:0021[facility]annCHEM ISSPX8613-04-13 11:10:000.99 [facility]annCHEM NELJH9023-70-83 11:10:93340Xlgqajli HermannCHEM PANEL 2019-04-10 11:10:004.2[facility]annCHEM NIGYM4804-95-19 11:10:31325Xyvxmvdy HermannCHEM JEKEY8177-59-01 11:10:0028[facility]annCHEM JDBGN6688-43-28 11:10:009.2[facility]annCHEM XKGCQ1766-84-80 11:10:0079[facility]annCHEM HSYWF7672-40-98 11:10:0011.2[facility] YlxbjmrFZAYHGMKVN7757-56-27 11:10:0010.3 [facility] HjfgwjaBMJRBKVAAV7521-35-59 11:10:003.52[facility]annHEMATOLOGY 2019-04-10 11:10:0011.3[facility] HzcqhlySYVELTAGOS8859-47-73 11:10:0034.0[facility] ZpyfayeYEQDNMMDMK3820-34-62 11:10:0096.6[facility] HtkklrgKJWFPYIEUL8697-83-89 11:10:00 Test Item Value Reference Range Interpretation Comments MCH (test code = MCH) 32.1 pg 27.0-31.0 [facility] ZdlzzzoQDVKFGHLPU2137-84-04 11:10:0033.2[facility] HermannHEMATOLOGY 2019-04-10 11:10:0017.2[facility] YazecszJUTMSXHWHF7910-79-94 11:10:84825Mvnovioc FydnyegUKZCDOISUD5197-25-67 11:10:008.4[facility] EmrlegkUWXGXBAPZD5445-25-63 11:10:0077.2[facility] FoqgjibWOJCSNKGCI0875-43-23 11:10:0013.4[facility] YXUQTCUVMU8604-73-30 11:10:008.1[facility] ByyscdpBXZHQUATIH8751-98-12 11:10:000.9 [facility] LvlwrseAOSYLLVRRY9906-05-94 11:10:000.4[facility]annHEMATOLOGY 2019-04-10 11:10:008.0[facility] TyksfrrTTESUXLLYP1251-72-09 11:10:001.4[facility] DkodbkeKARBDWNORS2617-10-19 11:10:000.8[facility] OxkunxlSHWTNGAASG5021-62-22 11:10:000.1[facility] DwfftogPCEASJXEFY0079-18-64 23:57:0012.0[facility] NKZBXHFCCX6332-64-81 23:57:0034.8[facility] RkethtoHZMARLNCTT1267-61-23 16:29:00 11.1[facility] TcxalpyQPJZJGIVRO3514-73-61 16:29:0032.7[facility] HermannBLOOD BANK JBKPGAS4384-98-01 21:14:00Negative (04/08/19 3:14 PM)[facility] GMHBYNUIVQTM3022-93-39 21:14:0010.7[facility] KvovjcoAGBIADLXUHNF4075-47-62 21:14:00 Test Item Value Reference Range Interpretation Comments B/C Ratio (test code = B/C Ratio) 22 1 6-25 [facility] SvhdsfpLTGVKRPUBAGX8264-16-74 21:14:004.4[facility] HermannELECTROLYTES 2019-04-08 21:14:00 Test Item Value Reference Range Interpretation Comments A/G Ratio (test code = A/G Ratio) 0.7 1 0.7-1.6 [facility] DsypswqVKJBFDEBSLIF9490-65-04 21:14:16184Aurlfhbx HermannELECTROLYTES 2019-04-08 21:14:0023[facility] IigfdpfRBRRKWKDOAVB1787-51-06 21:14:001.04[facility] PcqvakxIEXXHMCEKZXI9367-34-04 21:14:55132Wifmaqsw PxylrtoKXKMTTDLOSUE4895-12-08 21:14:004.7[facility] JjzijmxHCVZCONJSTBW6111-97-63 21:14:78406Ofndfalu Master RGCIYYKRVEZN2738-58-50 21:14:0028[facility] PcqidyxLWKBPQZMPFHL1274-19-91 21:14:00 9.6[facility] GkoepaoZNQIYVIMFQTX6379-94-57 21:14:007.5[facility] Master YQZFIATOHINT0482-45-32 21:14:003.1[facility] OnrojsiELLBLMHHWTRQ2966-58-43 21:14:0032[facility] OxrojlhNAHXYGYFJTVG6451-73-57 21:14:0027[facility] BZRAHFOIFNMN1928-86-90 21:14:0099[facility] XbhuxzmTFKCWVNZJWYO1072-91-69 21:14:00 0.2[facility] DvyiisdIMIBBTFJRWOC2675-63-77 21:14:0075[facility] HermannHEMATOLOGY 2019-04-08 21:14:007.0[facility] XoolvqsCACCQLNXQJ6605-42-66 21:14:003.79[facility] WqcdpfsPDSVRKVPQH7255-83-14 21:14:0096.3[facility] ZzmrkxhILNAPFKGCE7265-61-59 21:14:00 Test Item Value Reference Range Interpretation Comments MCH (test code = MCH) 32.4 pg 27.0-31.0 [facility] LhpisgbQTLVUODMZB5053-67-18 21:14:0033.7[facility] HermannHEMATOLOGY 2019-04-08 21:14:0017.0[facility] WugvzqvLDFUNWZVBQ2033-26-82 21:14:19789Orkzlxkk EcczbigHZKEZPFASW3964-09-07 21:14:008.4[facility] CzcqmefKJVTXMPPRB7484-48-22 21:14:00 Test Item Value Reference Range Interpretation Comments INR (test code = INR) 1.12 1 0.85-1.17 [facility] HolkflfYCIIFFHRWN5510-46-65 21:14:00 Test Item Value Reference Range Interpretation Comments PT (test code = PT) 14.5 s 12.0-14.7 [facility] OvscqceBJRFMBLQVS5728-97-94 21:14:00 Test Item Value Reference Range Interpretation Comments PTT (test code = PTT) 28.5 s 22.9-35.8 [facility] OpcasflUCNBNSBJWD7569-07-34 21:14:0067.5[facility]annHEMATOLOGY 2019-04-08 21:14:0020.3[facility] SqblbixENATRNENXG4927-90-11 21:14:0010.2[facility] LuxffjfJEFQZJXJHB1786-94-09 21:14:001.4[facility] RbwnpdeUKEXTDPQAN1680-67-14 21:14:000.6[facility] KdjanjaUXLJVBNNVY7793-14-55 21:14:004.7[facility] EDXLNDVEZP1226-02-41 21:14:001.4[facility] HmyqnfwBBXHGQQAYT7323-79-79 21:14:000.7 [facility] QawjnxxJYRJAFBXWH4105-24-08 21:14:000.1[facility]annURINE AND STOOL 2019-04-08 21:14:00Positive *ABN*(04/08/19 3:14 PM)[facility]annCHEM PANEL 2019-04-06 12:41:88511Yuuuhtqg HermannCHEM HNLMJ4385-31-45 12:41:0024[facility]annCHEM KUOCQ2227-80-76 12:41:000.88[facility]annCHEM DYNBV9369-35-76 12:41:15231Hxozvyhr HermannCHEM XBZNN5121-62-97 12:41:004.3[facility] HermannCHEM BBVOH9616-70-57 12:41:17347Zjhjpzfz HermannCHEM EJQSW8056-17-15 12:41:0027 [facility]annCHEM BYLPN9076-96-25 12:41:009.5[facility]annCHEM PANEL 2019-04-06 12:41:006.6[facility]annCHEM SGDTD1843-97-11 12:41:002.9[facility] HermannCHEM DWITU9194-69-40 12:41:0027[facility]annCHEM CSGKW4930-59-29 12:41:0021[facility]annCHEM VBNBL7883-89-87 12:41:0082[facility]annCHEM AMEYZ9776-16-12 12:41:000.4[facility]annCHEM HTYCL6298-08-38 12:41:0010.3 [facility]annCHEM NARLD4038-65-86 12:41:00 Test Item Value Reference Range Interpretation Comments B/C Ratio (test code = B/C Ratio) 27 1 6-25 [facility]annCHEM QTRIK4335-03-68 12:41:003.7[facility]annCHEM PANEL 2019-04-06 12:41:00 Test Item Value Reference Range Interpretation Comments A/G Ratio (test code = A/G Ratio) 0.8 1 0.7-1.6 [facility]annCHEM ASHUI9397-97-07 12:41:0090[facility]annHEMATOLOGY 2019-04-06 12:41:005.1[facility] RollvmgUYGOFUZWDF0017-01-81 12:41:003.46[facility] FsjwtqcELJYXCEGVC8036-95-95 12:41:0011.0[facility] CdrruhrCPBMCZFJHP8494-62-81 12:41:0033.0[facility] AehskjaEQLTDSYVXD8850-18-87 12:41:0095.2[facility] TRFDQTXMHV6510-17-29 12:41:00 Test Item Value Reference Range Interpretation Comments MCH (test code = MCH) 31.7 pg 27.0-31.0 [facility] OjkyfalJDQQPUQTCQ6572-95-01 12:41:0033.3[facility]annHEMATOLOGY 2019-04-06 12:41:0016.6[facility] HhhzjhvVVALIQPYIM6251-92-41 12:41:67995Lbblzvit YwdvskaKZGNSRANKR1720-52-45 12:41:007.8[facility] DgiuxjoRTNMRWSQZS9615-11-37 12:41:0059.7[facility] NvfhesfXCIETFOSAC2207-34-90 12:41:0027.1[facility] PBEMPQRPNT7242-27-69 12:41:009.9[facility] VlykwlvJLFLFHFKUG0953-91-93 12:41:002.5 [facility] PfgzvmvFHOKXGEDEF9897-99-50 12:41:000.8[facility]annHEMATOLOGY 2019-04-06 12:41:003.0[facility] OrbziugTSAZEYNPDZ5432-90-42 12:41:001.4[facility] BqmvmqtDXDGKSCGMR6123-70-16 12:41:000.5[facility] WobsnmnQSBDCOGEXG0503-81-08 12:41:000.1[facility] HermannCHEM PMCHE8188-02-69 10:25:0090[facility]annCHEM KVYTJ7229-78-13 10:25:0024[facility]annCHEM ZGYPX0252-80-78 10:25:000.87 [facility]annCHEM RVHPF9526-96-61 10:25:23677Gmyljwio HermannCHEM PANEL 2019-04-06 10:25:005.3[facility]annCHEM VHCRI7098-14-48 10:25:76040Qxinbrto HermannCHEM XUCYF2337-12-49 10:25:0024[facility]annCHEM AXBMR3786-01-11 10:25:0011.3[facility]annCHEM ARHMV8627-47-15 10:25:009.2[facility]annCHEM QJIGR8938-04-47 10:25:0090[facility]annCHEM GNMUZ2877-95-95 16:57:12923 [facility]annCHEM ZVEGJ8109-29-11 16:57:0024[facility]annCHEM PANEL 2019-04-05 16:57:000.95[facility]annCHEM CRPQW3105-57-25 16:57:36524Urqrnqjs HermannCHEM LQFSA0101-50-59 16:57:004.1[facility]annCHEM CBQCF8251-93-77 16:57:63095Jszqfmhr HermannCHEM DSOCQ4656-17-53 16:57:0026[facility]annCHEM DGQSK7309-86-06 16:57:009.1[facility]annCHEM VMIYV3285-69-38 16:57:0083 [facility]annCHEM QQSSW4614-75-43 16:57:0012.1[facility]annHEMATOLOGY 2019-04-05 16:57:005.5[facility] ArusyvmSGRIFKTCVQ2169-14-57 16:57:003.47[facility] RprddwdOIWNIUUXRY0165-83-87 16:57:0010.7[facility] GtefqyeLRUJCJHYDN2130-24-16 16:57:0032.9[facility] EgsrzpzWJNCDAJIBK4917-61-84 16:57:0094.7[facility] XCCTAOLBJK1145-96-15 16:57:00 Test Item Value Reference Range Interpretation Comments MCH (test code = MCH) 30.9 pg 27.0-31.0 [facility] UibokcaLAUIPRFVVD7586-79-20 16:57:0032.6[facility]annHEMATOLOGY 2019-04-05 16:57:0016.6[facility] EctzniqZDQKHRAZRN3667-06-66 16:57:96850Tdhzxohh HzsvrdvANLRKGVXLH8560-58-15 16:57:007.6[facility] RusudrjNDIYQDGJKR8807-51-05 16:57:0064.8[facility] ZmgmpxyFMRNTVFBEW4661-31-28 16:57:0024.8[facility] KRACJSBXGP3169-09-23 16:57:007.9[facility] GuolpmvGXHHUNXXGD1534-03-04 16:57:001.7 [facility] AvisgvgFHNUVFLRVV3034-12-83 16:57:000.8[facility] HermannHEMATOLOGY 2019-04-05 16:57:003.5[facility] IslnfklFRXRWZNBWJ4111-25-17 16:57:001.4[facility] HlhhedkGQQFAKOPYY9933-68-56 16:57:000.4[facility] AimpkzfQLSVSAGHNP6885-54-36 16:57:000.1[facility] DnovnliDYPRVHLSRQ7724-01-56 10:31:005.2[facility] XOXILGVKDO0654-82-38 10:31:003.01[facility] IfasggwCMHTBITSCE6518-80-02 10:31:00 9.8[facility] KyrahwqTTGIIZLNMK5582-94-31 10:31:0028.8[facility]annHEMATOLOGY 2019-04-04 10:31:0095.5[facility] HfcjyciPLUDMHVYZA4385-71-96 10:31:00 Test Item Value Reference Range Interpretation Comments MCH (test code = MCH) 32.4 pg 27.0-31.0 [facility] SamqpvzUUWPXEQYQF9585-33-95 10:31:0033.9[facility] HermannHEMATOLOGY 2019-04-04 10:31:0016.7[facility] IhdcvniFCQWVPAIIT4838-09-12 10:31:08932Ffpbyabw VbrexdhKMSJBNLOQD3614-17-39 10:31:007.9[facility] QhpdkooRPLELZSDDM1510-13-41 10:31:0056.8[facility] LggnohjQCIRPPGRGC7505-85-40 10:31:0030.6[facility] HHBAABXMAK1684-28-47 10:31:009.4[facility] TlbcxlwFFBJNFDELM9314-04-00 10:31:002.2 [facility] EmmwjcsNTPPZYWZCH5036-67-99 10:31:001.0[facility] HermannHEMATOLOGY 2019-04-04 10:31:003.0[facility] OltjvenIDZPGWIVFH3164-23-15 10:31:001.6[facility] YuyxgviYYOVCAMRIP2278-15-98 10:31:000.5[facility] SjdvvapBZTTFLNGCV5702-35-76 10:31:000.1[facility] BneridkXHWETWZGMB5948-76-37 10:31:000.1[facility] HermannCHEM HFYCW6979-92-68 07:47:002.0[facility] HermannCHEM TKNUK8844-93-09 07:47:003.7 [facility] HermannPARATHYROID HPKOLBB0447-64-51 07:47:001.10[facility] PARATHYROID MQEUTMT7343-66-46 07:47:001.15[facility] HermannCHEM SAVSK4891-98-89 07:24:002.0[facility] HermannCHEM TTNYC2894-92-89 07:24:003.5[facility] PARATHYROID QGIBGNY9496-88-86 07:24:001.21[facility] HermannPARATHYROID PROFILE 2019-04-02 07:24:001.25[facility] HermannCARDIAC OJIJEDC5489-80-28 17:02:45664 [facility]annURINE QZKE0719-31-15 16:41:33865Evmeamhe HermannCARDIAC ENZYMES 2019-04-01 05:31:0089[facility] HermannCHEM EASKO7450-96-44 05:31:001.8[facility]annCHEM LPCNN8829-99-64 05:31:003.1[facility] HermannPARATHYROID PROFILE 2019-04-01 05:31:001.16[facility] HermannPARATHYROID FXWTYSY2059-02-02 05:31:00 1.20[facility]UR[facility] AND ZWBLX3515-00-41 21:58:00Yellow *NA*(03/31/19 3:58 PM)[facility] AND OXCPR9537-81-29 21:58:00Slight Cloudy (03/31/19 3:58 PM)[facility] AND WPZTO4260-62-94 21:58:00 Test Item Value Reference Range Interpretation Comments UA Spec Grav (test code = UA Spec 1.020 1 Grav) [facility] FEIWB3568-48-39 21:58:00 Test Item Value Reference Range Interpretation Comments UA pH (test code = UA pH) 7.5 1 5.0-8.0 [facility] ZCIZL3473-39-72 21:58:00Negative *NA*(03/31/19 3:58 PM)[facility] CBKME1139-07-11 21:58:00Negative (03/31/19 3:58 PM) [facility] ANMON4106-74-50 21:58:000.2[facility] AND PSLHL4519-63-78 21:58:00Negative (03/31/19 3:58 PM)[facility] VNHRY5265-04-43 21:58:00Negative (03/31/19 3:58 PM)[facility] RHOWV6877-79-89 21:58:00None Seen (03/31/19 3:58 PM)[facility]annCHEM PANEL 2019-03-29 17:36:00 Test Item Value Reference Range Interpretation Comments B/C Ratio (test code = B/C Ratio) 18 1 6-25 [facility]annCHEM XIKZI4703-61-53 17:36:005.8[facility] HermannCHEM PANEL 2019-03-29 17:36:002.4[facility] HermannCHEM DGWFP4541-31-83 17:36:003.4[facility] HermannCHEM GZYHK8010-69-76 17:36:00 Test Item Value Reference Range Interpretation Comments A/G Ratio (test code = A/G Ratio) 0.7 1 0.7-1.6 [facility]annCHEM ACHWV4009-56-58 17:36:0017[facility]annCHEM PANEL 2019-03-29 17:36:0014[facility] HermannCHEM FRGGH8832-31-94 17:36:0081[facility]annCHEM QEKAR1571-40-17 17:36:000.4[facility] KafognhPWCQXAGVPA8985-28-65 17:36:0045[facility] ZkihhmxKHPYCVHEUZ7174-46-80 17:36:0022.6[facility]annURINE XWOD7261-88-75 15:26:0099[facility]URINE UXEU6332-96-70 15:26:88954 [facility]URINE KYSY8061-15-31 15:26:0034.2[facility]annURINE CHEM 2019-03-29 15:26:42437Egbkacen HermannURINE ZILR5588-38-69 15:26:0052.60[facility] HermannCHEM RXTEV5834-63-78 14:40:44445Xykmtdrr HermannCHEM BUWAE7532-88-90 11:26:63035Veeuwmxc HermannBLOOD BANK YXDTYEX9473-40-51 06:30:00Negative (03/29/19 12:30 AM)[facility] HermannBACTERIAL - BEFFYHSC5119-12-41 06:16:00 Negative (03/29/19 12:16 AM)[facility] HjsnbhsMFKOXNQBFU4595-77-90 06:16:000.1 [facility] DiosgmqRJZJCUSUOF6878-59-79 03:36:00 Test Item Value Reference Range Interpretation Comments PT (test code = PT) 13.7 s 12.0-14.7 [facility] UbxplsiAUHZPRXRVO4801-69-89 03:36:00 Test Item Value Reference Range Interpretation Comments INR (test code = INR) 1.07 1 0.85-1.17 [facility]JjladnoUZPBQMCCDX7153-24-40 03:36:00 Test Item Value Reference Range Interpretation Comments PTT (test code = PTT) 30.9 s 22.9-35.8 [facility] TexasXljvnuiIXCZYKZZTJ6588-58-89 03:36[facility]003.0[facility] 03:36:00 Test Item Value Reference Range Interpretation Comments ACT (TEG) Rapid (test code = ACT (TEG) 113 s 86-118 Rapid) [facility] TexasLpsobalQMGLFXBFOO2790-84-78 03:36:00 Test Item Value Reference Range Interpretation Comments Split Point Rapid (test code = Split 0.5 min Point Rapid) [facility] TexasJpupsvtLRKWEWYGSO0903-56-67 03:36:00 Test Item Value Reference Range Interpretation Comments R-time Rapid (test code = R-time 0.7 min 0.4-0.7 Rapid) [facility] TexasFgbngiqWCDBOGLITL1167-41-32 03:36:00 Test Item Value Reference Range Interpretation Comments K-time Rapid (test code = K-time 1.5 min 0.6-2.3 Rapid) [facility] TexasQllzquhBXOSDLKVVJ4970-71-85 03:36:00 Test Item Value Reference Range Interpretation Comments Angle Rapid (test code = Angle 73 degrees 64-80 Rapid) [facility] TexasXpqtzljTQBNOVHACX5398-86-64 03:36:00 Test Item Value Reference Range Interpretation Comments Max Amplitude Rapid (test code = Max 62 mm 52-71 Amplitude Rapid) [facility] TexasFbmctxrEXTJWSKJMX1549-50-92 03:36:008.2[facility] HermannCHEM PANEL 2019-03-29 02:53:72665Cqywbjyf [facility] YJEBE4363-24-02 23:27:00Yellow *NA*(03/28/19 5:27 PM)[facility] FMYLT3148-06-56 23:27:00Clear (03/28/19 5:27 PM)[facility]annURINE AND IYETQ2880-75-39 23:27:00 Test Item Value Reference Range Interpretation Comments UA Spec Grav (test code = UA Spec 1.010 1 Grav) [facility] FNXFT9391-60-57 23:27:00 Test Item Value Reference Range Interpretation Comments UA pH (test code = UA pH) 7.0 1 5.0-8.0 [facility] YRTXX9597-62-06 23:27:00Negative *NA*(03/28/19 5:27 PM)[facility] AND WOXRS9109-63-78 23:27:00Negative (03/28/19 5:27 PM) [facility] FAMTP4564-78-52 23:27:00Negative (03/28/19 5:27 PM) [facility] ZPKDF5123-80-73 23:27:00Trace *ABN*(03/28/19 5:27 PM) [facility] TRPQK5553-06-56 23:27:008[facility]annUR[facility] AND KROMR9360-62-35 23:27:002[facility]annURINE FHWP3104-45-33 23:27:0098[facility]URINE LNHC0070-64-27 23:27:0039.2[facility]annURINE CTRF1600-47-29 23:27:73802Spcsewve HermannURINE MJMV4453-31-62 23:27:94701Dkvgcsoi Master CARDIAC MOJTHPA1841-12-76 22:09:00<0.02[facility] HermannCARDIAC ENZYMES 2019-03-28 22:09:0074[facility] HermannCHEM HDOSM1570-42-15 22:09:0095[facility] XyhjmvaLVBZCKAHUL6547-81-02 22:09:005.8[facility] DlmkutnRCCZAAXFFO8006-79-77 22:09:003.67[facility] PkgtahxZEGLDAKQQL5852-36-63 22:09:0011.6[facility] SOKUGPBFJB1641-71-76 22:09:0033.4[facility] CwhjleeGLWLXNZZGE0962-89-58 22:09:00 90.9[facility] HovlvitZGVUKOICHA3820-31-35 22:09:00 Test Item Value Reference Range Interpretation Comments MCH (test code = MCH) 31.6 pg 27.0-31.0 [facility] LxpajcxNLEMZBYQRV5759-77-94 22:09:0034.8[facility] HermannHEMATOLOGY 2019-03-28 22:09:0016.5[facility] QhggqopIAOQQLXYER2555-18-38 22:09:00362Pruftxod AasdhsnEKBMSKVYTD3078-40-46 22:09:006.9[facility] CqbfilkGYUPVOKJXT7109-65-37 22:09:00 Test Item Value Reference Range Interpretation Comments PT (test code = PT) 14.1 s 12.0-14.7 [facility] FdfrpegUFXMPZIIGV0976-21-12 22:09:00 Test Item Value Reference Range Interpretation Comments INR (test code = INR) 1.11 1 0.85-1.17 [facility] ZxbgblaLFKHGCODGA6589-26-11 22:09:0059.5[facility] HermannHEMATOLOGY 2019-03-28 22:09:0021.9[facility] KsdwqrvWIOYQGPEML6154-91-03 22:09:0016.3[facility] CeicmcyVZSVMFVASF6423-34-84 22:09:001.8[facility] GlyxstwQKRPLZOBPZ0913-18-87 22:09:000.5[facility] PrtcietOTPEGBXLLM1521-47-19 22:09:003.5[facility] ZJWGHAEUUD9400-33-53 22:09:001.3[facility] TiuemhmIQXBIXYQBQ9905-40-43 22:09:001.0 [facility] DswhlfxLOWJQRCZWR6096-96-59 22:09:000.1[facility]annHEMATOLOGY 2019-03-28 22:09:000.0[facility] HermannCHEM ZPDRJ9698-79-40 22:07:79356Joufdmqu HermannCHEM IPVTK2487-17-28 22:07:0015[facility] HermannCHEM KRCPE9275-85-78 22:07:000.77[facility] HermannCHEM UBKYM5511-51-63 22:07:49743Rwdmtyfc HermannCHEM UNFBI6319-58-20 22:07:004.9[facility] HermannCHEM EOWFS2064-52-77 22:07:0086 [facility]annCHEM KPFSM3147-42-03 22:07:0026[facility]annCHEM PANEL 2019-03-28 22:07:0012.9[facility] HermannCHEM FNJLV1176-46-52 22:07:008.3[facility] UvybokpSREITZKAMPOI3833-64-90 15:16:97264Llvbpewk HermannCHEM PXEDR5070-19-01 06:37:19339Qwispepv HermannCHEM LQCEK2654-31-48 06:37:0022[facility]annCHEM HSQCF7734-39-80 06:37:001.04[facility] HermannCHEM CIDLM8202-24-84 06:37:21339 [facility]annCHEM FLEDA5401-75-77 06:37:004.6[facility] HermannCHEM PANEL 2019-03-09 06:37:60172Hcucmigv HermannCHEM DZJDT9956-42-98 06:37:0023[facility]annCHEM SHGXJ7070-71-95 06:37:008.1[facility] HermannCHEM WRXIY5230-24-51 06:37:0075[facility] HermannCHEM AHHDL1522-58-29 06:37:0010.6[facility] YNKJLQMEZW7646-79-18 06:37:0075.8[facility] OhxdlaqUMCYTCJPMJ8882-69-50 06:37:00 11.7[facility] NifucpgDXLDDURLPY3563-72-06 06:37:0010.9[facility]annHEMATOLOGY 2019-03-09 06:37:001.3[facility] YhbmjzxTMSGLRAYSR0234-38-85 06:37:000.3[facility] UkcoxrtISGYBTBVEW5065-37-42 06:37:006.1[facility] XaidylcHFGRVYXFAL6170-41-98 06:37:000.9[facility] SropmjxXQAFKBTRKL1178-98-31 06:37:000.9[facility] CDSPAJYIIY2637-71-89 06:37:000.1[facility] ZyjpipfUBROEXRIHP8418-88-91 06:37:008.1 [facility] VydzaqzAPBXPHFWIP9738-03-13 06:37:002.86[facility]annHEMATOLOGY 2019-03-09 06:37:009.0[facility] GzfwkvhNGTDCWHONS8795-51-45 06:37:0027.2[facility] JujrkzqZJSHBRIRDO1092-90-37 06:37:0095.1[facility] EefpqqqMUQFWJUALD3340-93-39 06:37:00 Test Item Value Reference Range Interpretation Comments MCH (test code = MCH) 31.5 pg 27.0-31.0 [facility] ZhtfmodVXJUYCJZHG5120-90-36 06:37:0033.1[facility]annHEMATOLOGY 2019-03-09 06:37:0019.0[facility] UanilahHDPERXWEEO2338-76-03 06:37:56211Spjgcxak ZjwwmroXOOQBMNBUY7660-12-78 06:37:0010.0[facility] QtnccrcDKYHMCTOLOMA0565-75-48 22:16:98822Wedwcqkc WlbjsomNXQSWJHTJC8269-20-00 17:18:008.5[facility] ANBFLSOFPR7615-30-20 17:18:003.27[facility] CmaotapQUXADFFXAM5146-10-76 17:18:00 10.2[facility] GxzkywdJMRQCYFDGU2444-74-09 17:18:0031.2[facility]annHEMATOLOGY 2019-03-08 17:18:0095.5[facility] TtqvtfaUXRDSOSVXJ0390-05-23 17:18:00 Test Item Value Reference Range Interpretation Comments MCH (test code = MCH) 31.3 pg 27.0-31.0 [facility] DikihnxGIOUKSRXBL8003-47-81 17:18:0032.7[facility]annHEMATOLOGY 2019-03-08 17:18:0019.1[facility] CvsuiooQWDZUYHDKR8017-32-72 17:18:66564Ikxhbjwo QvojdchSSTINFIHXS2584-18-28 17:18:009.8[facility] SoijchnOBFWFMMUSG2133-47-47 17:18:0076.3[facility] ZakaurrMYQZUGXCOH9623-61-90 17:18:0011.5[facility] VFRZRTILVD8892-10-50 17:18:0011.0[facility] FmkwtzaDNJHXJKPAK7196-10-41 17:18:00 1.0[facility] SqcwtclWRTMTLKVJN8883-49-24 17:18:000.2[facility] HermannHEMATOLOGY 2019-03-08 17:18:006.5[facility] JpkyinaWDHOQLSBMJ2391-59-51 17:18:001.0[facility] OgquaraPFRUOOOYSD2103-88-85 17:18:000.9[facility] YoxqqaeNSJSUZRNVE0250-25-45 17:18:000.1[facility] IawsxhbSVOAKHSBHQ0760-30-63 11:13:0010.7[facility] PAMLVJAHTM5492-70-88 11:13:001.1[facility] VgzoopjAXKLPOCCEI0565-88-53 11:13:000.7 [facility] OeyxomdLZOQFEEMXQ2728-96-19 11:13:006.1[facility] HermannHEMATOLOGY 2019-03-08 11:13:000.9[facility] EotqyaaYPDJQWHZCQ9002-53-46 11:13:000.9[facility] ZyfiwjfOOYUGBEHOL8077-40-42 11:13:000.1[facility] DnimknyLBBHVNMILT4713-10-76 11:13:000.1[facility] BjdxhgeAECKZUIFLSBN4232-16-82 11:13:0010.7[facility] QXNOHMLVYFBW2866-41-34 11:13:98662Xjyznhjj JnnlccvNJMEWIGVYAWO9383-21-89 11:13:0022[facility] VhcipewHBKXAGDXDEWG7906-95-07 11:13:001.26[facility] TBUJBYYSIGXU9892-03-49 11:13:004.7[facility] IdkxegsOTQIDDRPHHWX7132-99-96 11:13:65866Mumtixjc ObaugvzMALTUFCQYQHB0007-71-84 11:13:0021[facility] UIMDKLZHHLGG9135-74-56 11:13:007.9[facility] BweiwsqXFOLNAAOTKEK8102-88-72 11:13:0059[facility] GxxknivYRXDDZHWAG9117-40-59 11:13:008.0[facility] FMIOKFDATD5508-85-82 11:13:002.91[facility] AwxyavrFHBJYWTRQX6841-19-70 11:13:00 9.3[facility] WxivunfHKKAYEWDRK1207-00-20 11:13:0027.6[facility]annHEMATOLOGY 2019-03-08 11:13:0094.9[facility] PioahlcFFTHSZLNZK9891-68-61 11:13:00 Test Item Value Reference Range Interpretation Comments MCH (test code = MCH) 32.0 pg 27.0-31.0 [facility] VuhhvtqOUHVIDJVNL5923-94-78 11:13:0033.7[facility] HermannHEMATOLOGY 2019-03-08 11:13:0018.7[facility] PdlmmunDFBVWFYAPE3480-10-15 11:13:38195Cfkdjlhk BynmghhNHUPCNLMDC3155-97-51 11:13:0010.2[facility] VwlpeziDCUGNEDAVL8080-60-62 11:13:0075.7[facility] OukzzbwCSJOHZCDLJ3366-31-69 11:13:0011.8[facility] URINE IYDQ4968-29-23 03:14:28910Yylhmxvy HermannURINE HXXR2159-89-03 03:14:60834 [facility]annCHEM DDKMD4957-23-50 12:13:35024Iwrlndee HermannCHEM PANEL 2019-03-07 12:13:000.12[facility]annURINE AND XDAWR4479-77-32 23:39:00Yellow *NA*(03/06/19 5:39 PM)[facility]UR[facility] AND HCLDS5233-30-39 23:39:00Marked *ABN*(03/06/19 5:39 PM)[facility] YBOAC7739-96-65 23:39:00 Test Item Value Reference Range Interpretation Comments UA Spec Grav (test code = UA Spec 1.015 1 Grav) [facility] DDLIW3458-88-82 23:39:00 Test Item Value Reference Range Interpretation Comments UA pH (test code = UA pH) 7.0 1 5.0-8.0 [facility] GBDAK9269-81-28 23:39:00Negative (03/06/19 5:39 PM) [facility] KPRWD7407-54-85 23:39:00Negative *NA*(03/06/19 5:39 PM)[facility] FNNOI1813-56-68 23:39:00Negative *NA*(03/06/19 5:39 PM)[facility] DOJXQ0631-55-85 23:39:00Negative (03/06/19 5:39 PM) [facility] IRCXF0400-09-09 23:39:00<1.0[facility] HNSSE6222-57-00 23:39:00Negative (03/06/19 5:39 PM)[facility] BFBJT6172-77-19 23:39:00Negative (03/06/19 5:39 PM)[facility] QQYGC9887-82-69 23:39:00None Seen (03/06/19 5:39 PM)[facility]annCARDIAC FAIYDEY0839-81-56 23:07:000.02[facility]ann[facility]AC YTYBGAU1962-32-68 23:07:00 92[facility]annCHEM ITWDW3768-34-71 23:07:001.3[facility]annELECTROLYTES 2019-03-06 23:07:0014.1[facility] MaunylnCQCPDGBCAFDL1059-21-39 23:07:58061 [facility] UaohwdxPAHQECDBPXMU1782-44-41 23:07:0023[facility]annELECTROLYTES 2019-03-06 23:07:001.22[facility] ChvbncbKEZMLGQCUDZH1507-54-19 23:07:005.1 [facility] FktvsbaKQABUIWYQMDZ9605-47-59 23:07:66886Zwchkrtf HermannELECTROLYTES 2019-03-06 23:07:0022[facility] UlbvsejBKLVRIRBZQXG4800-85-03 23:07:008.6[facility] NdofgutAAUUZDBXWBAG2833-03-18 23:07:0062[facility] RccpqxuHAOEZSNVFE8265-78-36 23:07:00 Test Item Value Reference Range Interpretation Comments INR (test code = INR) 0.94 1 0.85-1.17 [facility] JlbighaOYQCHFATTP9365-48-89 23:07:00 Test Item Value Reference Range Interpretation Comments PT (test code = PT) 12.4 s 12.0-14.7 [facility] AujlbofUETRAWOOUU6036-56-80 23:07:00 Test Item Value Reference Range Interpretation Comments PTT (test code = PTT) 22.5 s 22.9-35.8 [facility] RqihqgsZYIBEVUULP6461-35-42 23:07:000.1[facility]annHEMATOLOGY 2019-02-28 21:50:002.97[facility] HetlznjKRQTABZJBX0922-17-72 21:50:009.0[facility] ZegmvmrUTEPNKKIZB4616-62-22 21:50:0028.0[facility] MuwlzplQGSGHWIEPK6442-72-24 21:50:0094.1[facility] QjlxgnkXDJWBTLYZD1586-30-61 21:50:00 Test Item Value Reference Range Interpretation Comments MCH (test code = MCH) 30.2 pg 27.0-31.0 [facility] VydbkbeVAMROIWZFV3738-17-32 21:50:0032.1[facility]annHEMATOLOGY 2019-02-28 21:50:0016.6[facility] ZmbapfyKWWJVWZOES7722-90-68 21:50:11030Zidguivx ZpjifmwZEXFNTOKFI1731-82-70 21:50:009.9[facility] GqcgqdgTEJUXLTXMP6954-17-07 21:50:0078.3[facility] VhrhswhQEXIDOCPHP8233-38-68 21:50:0011.1[facility] YEMCLXWTQD2728-32-63 21:50:008.7[facility] KttuwwpLPRAMIWXQX7732-66-75 21:50:001.3 [facility] RzklatiCZYDHRPHBI5393-60-66 21:50:000.6[facility]annHEMATOLOGY 2019-02-28 21:50:009.2[facility] YzwaognHLRCXGBYZH4989-24-97 21:50:001.3[facility] GrnraziALJIYTYCUC7356-97-65 21:50:001.0[facility] WjqgxrxOVFCBFPQKV4273-38-14 21:50:000.2[facility] NchmpfoSILDTJHQNL0790-78-45 21:50:000.1[facility] NHMTJALFDC5249-22-55 21:50:0011.8[facility]annCHEM YKVAX8545-77-55 14:45:00 0.25[facility] UkciqbyTASWQZBIHQGS4768-34-33 14:45:007.6[facility] YZFKACDSEDHZ9315-14-81 14:45:53491Wmcxwqpb IjzabpmRYGXVJXSHNAN3392-22-55 14:45:0036[facility] GicizosZLWPAMMAWJDS6238-75-16 14:45:001.54[facility] DFKURBZAYNJA2653-29-38 14:45:15015Ssjamdqf ApzabopWIEMCESESJCB3000-62-34 14:45:004.6[facility] JcqvanlZWQHYJCIOLBD4543-42-09 14:45:58327Ujkspgyl Master RBDPSHUURVVV1782-99-50 14:45:0027[facility] PpzaxbwLRTFNEQGKOTG5903-55-14 14:45:00 8.6[facility] QhmjgyzLVHMQFNMTHVU2685-54-47 14:45:0047[facility]annHEMATOLOGY 2019-02-28 14:45:009.8[facility] SkcxesoUEVBVMFMAJ7650-23-59 14:45:002.94[facility] SazdxbcUXSLXILCYE8656-41-53 14:45:009.0[facility] EytdiniYTRORXLPAX9791-82-56 14:45:0027.6[facility] JyelbwcFUNEBQRBTU9519-35-10 14:45:0093.9[facility] BMGCVVKUVF5291-05-88 14:45:00 Test Item Value Reference Range Interpretation Comments MCH (test code = MCH) 30.6 pg 27.0-31.0 [facility] YftcdzgCHNXIBHWAP0015-51-62 14:45:0032.6[facility]annHEMATOLOGY 2019-02-28 14:45:0016.7[facility] RakcfkxGDGXOVHVSU4665-63-36 14:45:0077[facility] ZimivtgJUFBHCITZP5008-58-16 14:45:009.8[facility] DxiyeyrCRQJTOYRDK4315-11-40 14:45:00Normal (02/28/19 8:45 AM)[facility] WeilhulYFHOHDZWRC3853-68-17 14:45:00 Normal (02/28/19 8:45 AM)[facility] PffwfebSUPFEISMSI5756-35-36 14:45:0079.4 [facility] FmgfhyaKEVXNIXBZI8436-80-67 14:45:0012.1[facility]annHEMATOLOGY 2019-02-28 14:45:007.0[facility] DgwnkvjWGWFYHYGLZ6783-48-18 14:45:001.0[facility] JwbokwiLZIBBCDPEX7764-37-39 14:45:000.5[facility] TvcmjwgWJDKLNKJCZ0655-66-10 14:45:007.8[facility] ObkoytsIDRWLNAKIQ2049-85-82 14:45:001.2[facility] CXVXWWLBFX1308-89-63 14:45:000.7[facility] BkeqydrKIJMYRIYPJ3310-56-26 14:45:000.1 [facility] SilfldbACYVKCAIZC9798-09-03 14:45:000.1[facility]annCHEM PANEL 2019-02-28 10:00:000.29[facility]annCHEM DDWPD2571-35-92 06:32:000.41[facility]annCHEM MSURM9921-95-02 10:27:91521Yefgrrmx HermannCHEM YPELC7461-06-27 10:27:0037[facility]annCHEM WMBVF1308-97-18 10:27:001.66[facility]annCHEM SIAIW7290-15-00 10:27:06425Xzwevixq HermannCHEM KFWOZ3635-26-63 10:27:004.9 [facility]CHE[facility] LEYQD6927-66-11 10:27:46038Pqtrbwiv HermannCHEM PANEL 2019-02-26 10:27:0026[facility]annCHEM PFQHY1035-39-33 10:27:008.3[facility]annCHEM VJOLS8995-69-87 10:27:0042[facility]annCHEM XBIQT8253-85-45 10:27:007.9[facility] MygghcvSXCNPKJIQG7141-34-95 10:27:0011.7[facility] RNYDNTWBOX5211-38-30 10:27:002.73[facility] MzyaxmnQRGSCFJOJQ7455-65-03 10:27:00 7.9[facility] FquqjbvEDSLZXKOJI2648-18-00 10:27:0025.7[facility]annHEMATOLOGY 2019-02-26 10:27:0094.1[facility] UsaxansQJXOTTBAWL4212-54-71 10:27:00 Test Item Value Reference Range Interpretation Comments MCH (test code = MCH) 29.1 pg 27.0-31.0 [facility] UkestkwMIFXBRAJTI2435-00-58 10:27:0030.9[facility] HermannHEMATOLOGY 2019-02-26 10:27:0016.8[facility] YwgluymYWDBJAFJVE0607-23-35 10:27:23292Ztniuvqz KktdjvrDDNSESINQA8294-04-47 10:27:0010.5[facility] AsemnkuWRNZVIWLHF9351-80-53 10:27:0081.9[facility] LnqouyaNMPWREROHO4065-20-67 10:27:008.6[facility] XXCGQUCYIZ3273-44-97 10:27:007.9[facility] MiagqfqLBPSPQTWHB7296-78-90 10:27:001.2 [facility] FaoxirdYWTGLTQKRQ7438-41-23 10:27:000.4[facility] HermannHEMATOLOGY 2019-02-26 10:27:009.6[facility] CpecyriMHZIKAIHLE6589-49-35 10:27:001.0[facility] EccrhiwPDKMFNVUJI8527-51-10 10:27:000.9[facility] NqadvfrGERSAXMVRT1918-95-18 10:27:000.1[facility] HermannCHEM MPNHH6096-52-28 11:00:70003Uvglfwuc HermannCHEM FKIDR8943-33-62 11:00:0039[facility]annCHEM ZFMSE1812-48-58 11:00:001.79 [facility]annCHEM LQNMC5661-35-13 11:00:67996Zwyzlmzp HermannCHEM PANEL 2019-02-25 11:00:004.1[facility]annCHEM CPZHQ0607-63-91 11:00:40849Riqrswdl HermannCHEM SNIXF3497-24-71 11:00:0026[facility]annCHEM VWYSU0697-30-90 11:00:007.9[facility]annCHEM JPTTX2506-93-47 11:00:0039[facility]annCHEM JQDDO4044-76-48 11:00:008.1[facility]annBLOOD BANK MYFYGQD6347-36-45 10:26:00 Negative (02/23/19 4:26 AM)[facility]annCHEM YCJTH3087-37-25 10:26:002.4 [facility]annCHEM VCQMY0581-49-13 10:26:002.6[facility]annCHEM PANEL 2019-02-23 10:26:005.2[facility]annCHEM YOXRR2985-73-50 10:26:002.4[facility]annCHEM UNQNW7962-22-18 10:26:0023[facility]annCHEM PDFYN8568-69-80 10:26:0041[facility]annCHEM WITNQ6726-33-76 10:26:0053[facility]annCHEM XPBZS2037-70-08 10:26:002.1[facility]annCHEM PNEKM5141-29-20 10:26:00 Test Item Value Reference Range Interpretation Comments B/C Ratio (test code = B/C Ratio) 20 1 6-25 [facility]annCHEM PEWHC5982-12-38 10:26:002.8[facility]annCHEM PANEL 2019-02-23 10:26:00 Test Item Value Reference Range Interpretation Comments A/G Ratio (test code = A/G Ratio) 0.9 1 0.7-1.6 [facility] PwasfpxGSYSHT0524-77-63 10:26:70881Ozzmweyq HermannCHEM UPFOA6358-07-82 07:32:002.6[facility]annCHEM PJOJF2936-05-82 07:32:002.7[facility] ODDDDT8611-96-77 07:32:81649Nfjicdnq HermannPARATHYROID QTTAXAM8841-14-31 07:32:001.22[facility] HermannPARATHYROID PZDNPHF0592-89-02 07:32:001.24[facility] RywxyvlEOIAQHJUVP9248-05-00 12:43:00 Test Item Value Reference Range Interpretation Comments ACT (TEG) Rapid (test code = ACT (TEG) 97 s 86-118 Rapid) [facility] TkrymgaKHCAVFNTET4413-47-19 12:43:00 Test Item Value Reference Range Interpretation Comments Split Point Rapid (test code = Split 0.3 min Point Rapid) [facility]SuwbsfzOTAFTQTERD4082-30-39 12:43:00 Test Item Value Reference Range Interpretation Comments R-time Rapid (test code = R-time 0.5 min 0.4-0.7 Rapid) [facility]tixvnqDVZXXKYHBB7887-32-10 12:43:00 Test Item Value Reference Range Interpretation Comments K-time Rapid (test code = K-time 1.0 min 0.6-2.3 Rapid) [facility]WxkifgjPJICYQKRZZ9025-78-42 12:43:00 Test Item Value Reference Range Interpretation Comments Angle Rapid (test code = Angle 77 degrees 64-80 Rapid) [facility] TexasItfglbgQVXJOLXXCJ2888-67-83 12:43:00 Test Item Value Reference Range Interpretation Comments Max Amplitude Rapid (test code = Max 68 mm 52-71 Amplitude Rapid) [facility] TexasKzwsodoHZMVUGXRTZ1238-42-06 12:43:0010.7[facility] 2019-02-20 12:43:000.0[facility] RsajcjoHNWBPVHRFR6746-05-77 12:20:00 Test Item Value Reference Range Interpretation Comments PTT (test code = PTT) 27.4 s 22.9-35.8 [facility] HoustonZbzboizEVPWEMADDX5784-74-54 12:20:00 Test Item Value Reference Range Interpretation Comments PT (test code = PT) 15.1 s 12.0-14.7 [facility] HoustonEvgmunnSBBPPSYSUH4462-60-84 12:20:00 Test Item Value Reference Range Interpretation Comments INR (test code = INR) 1.21 1 0.85-1.17 [facility]annCHEM JNUWB6434-23-92 10:44:002.6[facility] HermannCHEM PANEL 2019-02-20 10:44:002.7[facility] HermannPARATHYROID YJFETEE1413-34-32 10:44:001.19 [facility]annPARATHYROID OZIQSVY5953-00-87 10:44:001.21[facility]annBLOOD BANK XDXJSLH7773-39-41 10:03:00Negative (02/19/19 4:03 AM)[facility] PARATHYROID IKNYWII4344-76-49 09:06:001.23[facility] HermannPARATHYROID PROFILE 2019-02-19 09:06:001.27[facility]annBL[facility]OD BANK OWVPZXR1673-69-94 10:00:00 Product available (02/17/19 5:00 AM)[facility] HermannCARDIAC ZRZGROU0364-46-17 08:12:000.04[facility] HermannCARDIAC BDFUUGD7181-21-06 08:12:605831Fyofytlp HermannCARDIAC WBOYWFD1468-55-09 08:12:004.7[facility] HermannCARDIAC ENZYMES 2019-02-17 08:12:00 Test Item Value Reference Range Interpretation Comments CK MB Index (test 0.3 1 See_Comment [Automate d message] The code = CK MB Index) system w [facility] generated this result transmit guillaume reference range : <=2.5. The reference range was not used to interpr et this result as jd l/abnormal. [facility]annURINE DYCA4241-67-47 08:12:0027Mecarims HermannURINE CHEM 2019-02-17 08:12:65436.00[facility] MammfxxVPWLQFWOTE4359-54-98 07:56:00 Test Item Value Reference Range Interpretation Comments R-time (test code = R-time) 4.3 min 5.0-10.0 [facility] LmfkgmgGKLZUWKZXI4761-78-90 07:56:00 Test Item Value Reference Range Interpretation Comments K-time (test code = K-time) 2.2 min 1.0-3.0 [facility] VmyggqpUUFJUFQELM5292-03-43 07:56:00 Test Item Value Reference Range Interpretation Comments Angle (test code = Angle) 61.0 degrees 53.0-72.0 [facility] BnjszixCPGFHIRWSI3791-44-68 07:56:00 Test Item Value Reference Range Interpretation Comments Max Amp (test code = Max Amp) 57.1 mm 50.0-70.0 [facility] MxadyrpNEXUZWBIHY7949-87-99 07:56:006.7[facility] HermannHEMATOLOGY 2019-02-17 07:56:000.5[facility] BaliarwELVAZSQMUO7819-92-94 07:56:00 Test Item Value Reference Range Interpretation Comments Coag Index (test code 0.2 1 See_Comment [Auto mated message] The = Coag Index) system which g enerated this result transmit guillaume reference range : <=3.0. The reference range was not used to interpr et this result as jd l/abnormal. [facility] TexasVxmumynVDUVPUNOPQ2445-47-69 07:56:00See Note (02/17/19 2:56 AM)[facility] TexasFzussncWVZPOIOXZL8202-24-05 07:56:00 Test Item Value Reference Range Interpretation Comments PTT (test code = PTT) 28.8 s 22.9-35.8 [facility] TexasLcsntimTVWWYZCSUK2182-15-01 07:56:00 Test Item Value Reference Range Interpretation Comments PT (test code = PT) 15.4 s 12.0-14.7 [facility] TexasIpwliseOUVGLPXUMF4614-18-10 07:56:00 Test Item Value Reference Range Interpretation Comments INR (test code = INR) 1.24 1 0.85-1.17 [facility] TexasBjtcqhnPOFLVMAZEQ7512-50-11 11:32:00 Test Item Value Reference Range Interpretation Comments PTT (test code = PTT) 30.8 s 22.9-35.8 [facility] TexasUxuqnnySILOZDODZA0099-04-04 11:32:00 Test Item Value Reference Range Interpretation Comments PT (test code = PT) 16.0 s 12.0-14.7 [facility] TexasExggrynWAFRTSECGJ1421-59-68 11:32:00 Test Item Value Reference Range Interpretation Comments INR (test code = INR) 1.31 1 0.85-1.17 [facility] TexasYcrqwnaDWJXBDNEGG9746-17-13 11:32:00 Test Item Value Reference Range Interpretation Comments R-time (test code = R-time) 3.7 min 5.0-10.0 [facility] TexasXjycrtxEWILDZCPFE2485-12-32 11:32:00 Test Item Value Reference Range Interpretation Comments K-time (test code = K-time) 1.5 min 1.0-3.0 [facility] TexasAuqzpdwTOCAAHVUKK6588-61-87 11:32:00 Test Item Value Reference Range Interpretation Comments Angle (test code = Angle) 67.7 degrees 53.0-72.0 [facility] TexasTllcminHSUYLJRLOP0142-83-03 11:32:00 Test Item Value Reference Range Interpretation Comments Max Amp (test code = Max Amp) 62.5 mm 50.0-70.0 [facility] TexasXowxlooCCEKGRLXTS9203-96-25 11:32:008.3[facility]annHEMATOLOGY 2019-02-16 11:32:000.0[facility] FtjclcbVVEBLKGXNS0919-43-29 11:32:00 Test Item Value Reference Range Interpretation Comments Coag Index (test code 2.0 1 See_Comment [Auto mated message] The = Coag Index) system which g enerated this result transmit guillaume reference range : <=3.0. The reference range was not used to interpr et this result as jd l/abnormal. [facility] AdowrvnUXDYGSMIFX9717-34-62 11:32:00See Note (02/16/19 6:32 AM)[facility] HermannCARDIAC HFWOFPX1173-77-66 15:18:000.06[facility] HermannDRUG SCREEN 2019-02-15 14:46:00Negative *NA*(02/15/19 9:46 AM)[facility]annDRUG SCREEN 2019-02-15 14:46:00Negative *NA*(02/15/19 9:46 AM)[facility]annDRUG SCREEN 2019-02-15 14:46:00Positive *ABN*(02/15/19 9:46 AM)[facility]annDRUG SCREEN 2019-02-15 14:46:00Negative *NA*(02/15/19 9:46 AM)[facility]annDRUG SCREEN 2019-02-15 14:46:00Negative *NA*(02/15/19 9:46 AM)[facility]annDRUG SCREEN 2019-02-15 14:46:00Negative *NA*(02/15/19 9:46 AM)[facility]annDRUG SCREEN 2019-02-15 14:46:00Negative *NA*(02/15/19 9:46 AM)[facility]annDRUG SCREEN 2019-02-15 14:46:00See Note (02/15/19 9:46 AM)[facility]annURINE AND STOOL 2019-02-15 14:46:00Amber *ABN*(02/15/19 9:46 AM)[facility]annURINE AND STOOL 2019-02-15 14:46:00Marked *ABN*(02/15/19 9:46 AM)[facility]annURINE AND STOOL 2019-02-15 14:46:00 Test Item Value Reference Range Interpretation Comments UA Spec Grav (test code = UA Spec 1.047 1 Grav) [facility]annURINE AND [id number] 14:46:00 Test Item Value Reference Range Interpretation Comments UA pH (test code = UA pH) 5.0 1 5.0-8.0 [facility]UR[facility] AND [id number] 14:46:00Negative *NA*(02/15/19 9:46 AM)[facility]UR[facility] AND HOZWF5035-37-62 14:46:00Moderate *ABN*(02/15/19 9:46 AM)[facility]UR[facility] AND SSIZG3159-54-04 14:46:00<1.0[facility]annURINE AND PKPSK5180-10-24 14:46:00Negative (02/15/19 9:46 AM)[facility]annUR[facility] AND FFHNF7243-45-38 14:46:00Moderate *ABN*(02/15/19 9:46 AM) [facility]UR[facility] AND AFTVT7922-16-61 14:46:0057[facility]annURINE AND TSYSU5577-32-57 14:46:0040[facility]annURINE AND NVBEB2276-01-04 14:46:005 [facility]annBLOOD BANK XUQTGLD9369-71-47 12:47:00Product available (02/15/19 7:47 AM)[facility] HermannCARDIAC ILOWKVM9225-35-55 11:13:0015.5[facility] CARDIAC OGMRZYF3857-18-65 11:13:00 Test Item Value Reference Range Interpretation Comments CK MB Index (test 0.9 1 See_Comment [Automate d message] The code = CK MB Index) system w [facility] generated this result transmit guillaume reference range : <=2.5. The reference range was not used to interpr et this result as jd l/abnormal. [facility]annCARDIAC LCOUFIJ1581-10-62 11:13:882527Schikhlq HermannCARDIAC OTSOEAB0396-89-80 11:13:000.07[facility] HermannBACTERIAL - HFWEMRYX7382-20-79 03:45:00Negative (02/14/19 10:45 PM)[facility] HermannCARDIAC TWTZZKM6115-68-18 03:45:458024Pnpfhawq HermannCARDIAC FNTRNUM3207-03-56 03:45:0019.5[facility] HermannCARDIAC OMLTQMW4467-89-99 03:45:00 Test Item Value Reference Range Interpretation Comments CK MB Index (test 1.1 1 See_Comment [Automate d message] The code = CK MB Index) system w [facility] generated this result transmit guillaume reference range : <=2.5. The reference range was not used to interpr et this result as jd l/abnormal. [facility]annCHE[facility] NWNHI4987-49-30 03:45:001.8[facility] HermannCHEM PANEL 2019-02-15 03:45:005.3[facility] HermannCHEM ZMMYP3370-59-71 03:45:003.0[facility] HermannCHEM TVYXE3378-06-90 03:45:0025[facility] HermannCHEM GLRPM9152-64-38 03:45:0054[facility] HermannCHEM AHRUU3789-21-51 03:45:0055[facility] HermannCHEM AQCEH8634-51-78 03:45:001.1[facility] HermannCHEM NBWMU9000-36-17 03:45:00 Test Item Value Reference Range Interpretation Comments B/C Ratio (test code = B/C Ratio) 18 1 6-25 [facility]CHE[facility] ATAFO5606-46-49 03:45:002.3[facility]CHE[facility] PAN[facility] 2019-02-15 03:45:00 Test Item Value Reference Range Interpretation Comments A/G Ratio (test code = A/G Ratio) 1.3 1 0.7-1.6 [facility]KwpytihMAFYNGKENV1849-07-50 03:45:00 Test Item Value Reference Range Interpretation Comments R-time (test code = R-time) 4.1 min 5.0-10.0 [facility] TexasDcjvoqeKHNCSZAEJG0988-43-01 03:45:00 Test Item Value Reference Range Interpretation Comments K-time (test code = K-time) 2.2 min 1.0-3.0 [facility] TexasFiycejwGKZQMMENBX2293-79-42 03:45:00 Test Item Value Reference Range Interpretation Comments Angle (test code = Angle) 61.4 degrees 53.0-72.0 [facility] TexasIczfsosDHCFYRLMWD0197-13-14 03:45:00 Test Item Value Reference Range Interpretation Comments Max Amp (test code = Max Amp) 54.2 mm 50.0-70.0 [facility] TexasKmpmmlfIWSNHCVFZC3439-86-31 03:45:005.9[facility] 2019-02-15 03:45:000.0[facility] TexasNnidwtaZHNXTJAIOZ4088-99-59 03:45:00 Test Item Value Reference Range Interpretation Comments Coag Index (test code 0.0 1 See_Comment [Auto mated message] The = Coag Index) system which g enerated this result transmit guillaume reference range : <=3.0. The reference range was not used to interpr et this result as jd l/abnormal. [facility] TexasUijjhegOXNJWTMYGR2434-71-42 03:45:00See Note (02/14/19 10:45 PM) [facility] BANK ULVZYSG4457-14-20 22:15:00Negative (02/14/19 5:15 PM) [facility] OMVIY5754-95-73 22:15:001.5[facility] 2019-[facility]-14 22:15:00 Test Item Value Reference Range Interpretation Comments ACT (TEG) Rapid (test code = ACT (TEG) 136 s 86-118 Rapid) [facility] TexasYuzxspuPYNWYBBTKD6729-02-57 22:15:00 Test Item Value Reference Range Interpretation Comments Split Point Rapid (test code = Split 0.8 min Point Rapid) [facility] TexasPvcoienGCGSDFGPXN6858-41-88 22:15:00 Test Item Value Reference Range Interpretation Comments R-time Rapid (test code = R-time 0.9 min 0.4-0.7 Rapid) [facility] TexasQkndtjjDGBNCKFHCH1171-57-53 22:15:00 Test Item Value Reference Range Interpretation Comments K-time Rapid (test code = K-time 2.2 min 0.6-2.3 Rapid) [facility] TexasOnajyyiXRTTBUXDPM9420-39-63 22:15:00 Test Item Value Reference Range Interpretation Comments Angle Rapid (test code = Angle 68 degrees 64-80 Rapid) [facility] TexasMdlbalfTAPACYBBXN8947-28-66 22:15:00 Test Item Value Reference Range Interpretation Comments Max Amplitude Rapid (test code = Max 57 mm 52-71 Amplitude Rapid) [facility] BlmudvhAWFCSEVQVU2494-47-73 22:15:006.6[facility] HermannHEMATOLOGY 2019-02-14 22:15:000.0[facility] XpnmvrwTPKIEZSGLJ1725-11-69 22:15:00<3[facility] YvszvtyYZOHOVOAPX4398-72-81 22:15:00<0.003[facility]
[2020-09-08 09:34] LABS: Absolute Lymphocytes (CBC) 1.4 K/uL (0.7-4.9); Basophils % 0.7 % (0-1.3); Hematocrit 42.5 % (39.6-49.0); Lymphocytes % 29.1 % (15.3-44.8); MPV 8.8 fL (7.6-11.3)
[2020-09-08 09:35] LABS: Protime INR 1.06
[2020-09-08 09:48] LABS: Albumin 3.6 g/dL (3.4-5.0); Bilirubin Direct 0.1 mg/dL (0-0.2); Bilirubin Total 0.4 mg/dL (0.2-1.0); Magnesium 2.1 mg/dL (1.8-2.4); Protein, Total 7.1 g/dL (6.4-8.2); Troponin (Emerg Dept Use Only) 0.03 ng/mL (0.0-0.045)
[2020-09-08] MEDS ORDERED: NA CHLORIDE 0.9% 500 ML ONE (10:02)
[2020-09-08] MEDS ORDERED: NA CHLORIDE 0.9% 1,000 ML ONE (10:02)
--- NOTE | 2020-09-08 10:41 | RAD REPORT ---
EXAM DESCRIPTION: CT - Abdomen Pelvis W Contrast - 09/08/2020 10:06 am CLINICAL HISTORY: ABD PAIN COMPARISON: Abdomen Pelvis W Contrast dated 11/27/2015 TECHNIQUE: Biphasic, helical CT imaging of the abdomen and pelvis was performed following 100 ml non -ionic IV contrast. No oral contrast administered. All CT scans are performed using dose optimization technique as appropriate and may include automated exposure control or mA/KV adjustment according to patient size. FINDINGS: No acute finding in the lung bases. Chronic interstitial lung changes are present accentua guillaume by respiratory motion. Moderate-sized hiatal hernia is not clearly different from comparison. Jaren cardial calcifications near the apex unchanged. No pericardial effusion. The liver, spleen, and pancreas show no suspicious findings. Gallbladder and biliary tree are also wi thout suspicious finding. Symmetric renal function is seen with no hydronephrosis or suspicious renal mass. No pyelonephritis o r acute parenchymal process. Left-side cortical and right-side parapelvic cysts are similar to compar lee, may be slightly larger. No suspicious characteristics. Urinary bladder shows no gross abnormali ty of concern. 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 Pelvic floor and inferior b ladder are obscured by the bilateral hip prosthesis spray artifact. No adrenal abnormalities. No gross gastric abnormality seen. Lumen of the stomach is almost entirely empty. No dilated large or small bowel loop. No evidence for appendicitis. Active bowel process is not identifiable. No free a ir, free fluid or inflammatory stranding. No hernia, mass or bulky lymphadenopathy. Prominent disc and bony degenerative changes are present. No pathologic bone process identified. Prominent aortic atherosclerotic calcifications are present. Maximum aortic diameter is 2.6 cm in the mid infrarenal portion. This is similar in size to the 2016 study. No acute vascular finding. IMPRESSION: Contrast enhanced CT abdomen and pelvis showing no acute or emergent finding. Exam has moderately prominent motion degradation affects. This decreases sensitivity somewhat though a significant abdominal or pelvic acute process is not suspected. Nonacute findings are detailed in the body of the report.
--- NOTE | 2020-09-08 10:56 | EDPHYS ---
Physician Documentation [facility] Name: Beto Schreiber Sr Age: 89 yrs Sex: Male : 1930 Arrival Date: 09/08/2020 Time: 08:39 Bed 8 Private MD: ED Physician Gaston Gutiérrez HPI: 09/08 10:48 This 89 yrs old Black Male presents to ER via EMS with complaints of abdominal pain , ian vomiting. 10:48 The patient presents with abdominal pain in the upper abdomen, in the lower abdomen. ian Onset: The symptoms/episode began/occurred 67 day(s) ago. The patient presents to the emergency department with nausea, vomiting, abdominal pain, of the suprapubic area, right upper quadrant, left upper quadrant, right lower quadrant and left lower quadrant. Onset: The symptoms/episode began/occurred just prior to arrival. Possible causes: unknown. The symptoms are aggravated by nothing. Associated signs and symptoms: The patient has no apparent associated signs or symptoms. The symptoms do not radiate. Associated signs and symptoms: Pertinent positives: nausea and vomiting. Modifying factors: The symptoms are alleviated by nothing, the symptoms are aggravated by nothing. Historical: - Allergies: 08:47 Meperidine; kg - Home Meds: 08:47 Coreg 3.125 mg Oral tab [Active]; Lasix 20 mg Oral tab 1 tab 2 times per day [Active]; kg levothyroxine 50 mcg tab 1 tab once daily [Active]; - Immunization history:: Adult Immunizations up to date, Client reports receiving the 2nd dose of the Covid vaccine. - Social history:: Smoking status: Patient/guardian denies using tobacco, Smoking status: unknown. - Family history:: not pertinent. ROS: 10:48 Constitutional: Negative for fever, chills, and weight loss, Eyes: Negative for injury, ian pain, redness, and discharge, ENT: Negative for injury, pain, and discharge, Neck: Negative for injury, pain, and swelling, Cardiovascular: Negative for chest pain, palpitations, and edema, Respiratory: Negative for shortness of breath, cough, wheezing, and pleuritic chest pain, Back: Negative for injury and pain, : Negative for injury, bleeding, discharge, and swelling, MS/Extremity: Negative for injury and deformity, Skin: Negative for injury, rash, and discoloration, Neuro: Negative for headache, weakness, numbness, tingling, and seizure, Psych: Negative for depression, anxiety, suicide ideation, homicidal ideation, and hallucinations, Allergy/Immunology: Negative for hives, rash, and allergies, Endocrine: Negative for neck swelling, polydipsia, polyuria, polyphagia, and marked weight changes, Hematologic/Lymphatic: Negative for swollen nodes, abnormal bleeding, and unusual bruising. 10:48 Abdomen/GI: Positive for abdominal pain, nausea and vomiting, of the right upper quadrant, left upper quadrant, right lower quadrant and left lower quadrant. Exam: 10:48 Constitutional: This is a well developed, well nourished patient who is awake, alert, ian and in no acute distress. Head/Face: Normocephalic, atraumatic. Eyes: Pupils equal round and reactive to light, extra-ocular motions intact. Lids and lashes normal. Conjunctiva and sclera are non-icteric and not injected. Cornea within normal limits. Periorbital areas with no swelling, redness, or edema. ENT: Nares patent. No nasal discharge, no septal abnormalities noted. Tympanic membranes are normal and external auditory canals are clear. Oropharynx with no redness, swelling, or masses, exudates, or evidence of obstruction, uvula midline. Mucous membranes moist. Neck: Trachea midline, no thyromegaly or masses palpated, and no cervical lymphadenopathy. Supple, full range of motion without nuchal rigidity, or vertebral point tenderness. No Meningismus. Chest/axilla: Normal chest wall appearance and motion. Nontender with no deformity. No lesions are appreciated. Cardiovascular: Regular rate and rhythm with a normal S1 and S2. No gallops, murmurs, or rubs. Normal PMI, no JVD. No pulse deficits. Respiratory: Lungs have equal breath sounds bilaterally, clear to auscultation and percussion. No rales, rhonchi or wheezes noted. No increased work of breathing, no retractions or nasal flaring. Back: No spinal tenderness. No costovertebral tenderness. Full range of motion. Male : Normal genitalia with no discharge or lesions. Skin: Warm, dry with normal turgor. Normal color with no rashes, no lesions, and no evidence of cellulitis. MS/ Extremity: Pulses equal, no cyanosis. Neurovascular intact. Full, normal range of motion. Neuro: Awake and alert, GCS 15, oriented to person, place, time, and situation. Cranial nerves II-XII grossly intact. Motor strength 5/5 in all extremities. Sensory grossly intact. Cerebellar exam normal. Normal gait. Psych: Awake, alert, with orientation to person, place and time. Behavior, mood, and affect are within normal limits. 10:48 Abdomen/GI: Inspection: distension, that is mild, Bowel sounds: normal, Palpation: nontender, in all quadrants, Liver: no appreciated palpable abnormalities, Hernia: not appreciated. 10:56 ECG was reviewed by the Attending Physician. ian Vital Signs: 08:43 BP 157 / 111; Pulse 67; Resp 20; Temp 97.2(TE); Pulse Ox 98% ; Weight 68.04 kg (R); kg Height 5 ft. 6 in. (167.64 cm) (R); Pain 0/10; 10:00 BP 160 / 97; Pulse 60; Resp 18; Pulse Ox 98% ; kg 11:00 BP 136 / 99; Pulse 56; Resp 15; Pulse Ox 99% on R/A; kg 12:00 BP 162 / 95; Pulse 52; Resp 18; Pulse Ox 99% ; kg 13:00 BP 150 / 103; Pulse 53; Resp 20; Pulse Ox 99% on R/A; kg 14:00 BP 172 / 89; Pulse 56; Resp 17; Pulse Ox 95% on R/A; kg 15:00 BP 169 / 93; Pulse 61; Resp 20; Pulse Ox 99% ; kg 16:00 BP 126 / 82; Pulse 69; Resp 20; Pulse Ox 98% on R/A; kg 08:43 Body Mass Index 24.21 (68.04 kg, 167.64 cm) kg MDM: 08:43 Patient medically screened. ian 10:50 Differential diagnosis: Nonspecific abd pain, gastritis, cholecystitis, diverticulitis, ian viral gastroenteritis, gastroenteritis, AAA, bowel obstruction, cholecystitis, Cholelithiasis, diverticulitis, gastritis, gastroesophageal reflux disease, myocardia ischemia or infarction, non-specific abd pain, pancreatitis, Peptic Ulcer Disease, Pyelonephritis, urinary tract infection. Data reviewed: vital signs, nurses notes, lab test result(s), CBC, electrolytes, hepatic panel, EKG, radiologic studies, CT scan, plain films. 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 Counseling: I had a detailed discussion with the patient and/or guardian regarding: the historical points, exam findings, and any diagnostic results supporting the discharge/admit diagnosis, lab results, radiology results, the need for outpatient follow up, for definitive care, a family practitioner, a nematology teacher. 09/08 08:46 Order name: Basic Metabolic Panel; Complete Time: 10:52 [facility] 09/08 08:46 Order name: CBC with Diff; Complete Time: 10: [facility] 09/08 08:46 Order name: LFT's; Complete Time: : [facility] 09/08 08:46 Order name: Magnesium; Complete Time: : [facility] 09/08 08:46 Order name: NT PRO-BNP; Complete Time: : [facility] 09/08 08:46 Order name: PT-INR; Complete Time: 10: [facility] 09/08 08:46 Order name: Troponin (emerg Dept Use Only); Complete Time: : [facility] 09/08 08:46 Order name: Lipase; Complete Time: : [facility] 09/08 11:35 Order name: Urine Culture [facility] 09/08 13:11 Order name: CREATININE WHOLE BLOOD; Complete Time: 13:14 [facility] [place] 09/08 14:10 Order name: Urine Dipstick-Ancillary [facility] [place] 09/08 14:20 Order name: COVID-19 : Document "Date of Symptom Onset" if Symptomatic. 09/08 14:46 Order name: CORONAVIRUS [facility] [place] 09/08 08:46 Order name: XRAY Chest (1 view); Complete Time: 13:14 [facility] 09/08 08:46 Order name: EKG; Complete Time: 08:47 [facility] 09/08 08:46 Order name: Cardiac monitoring; Complete Time: 08:47 [facility] 09/08 08:46 Order name: EKG - Nurse/Tech; Complete Time: 08:47 [facility] 09/08 08:46 Order name: IV Saline Lock; Complete Time: 09:40 [facility] 09/08 08:46 Order name: Labs collected and sent; Complete Time: 09:40 [facility] 09/08 08:46 Order name: O2 Per Protocol; Complete Time: 08:47 [facility] 09/08 08:46 Order name: O2 Sat Monitoring; Complete Time: 08:47 [facility] 09/08 08:46 Order name: CT Abd/Pelvis - IV Contrast Only; Complete Time: 10:52 ian 09/08 15:35 Order name: SARS-COV-2 RT PCR EDMS EC:56 Rhythm is regular. QRS [place] is Normal. ID interval is normal. QRS interval is normal. ian No Q waves. T waves are Normal. No ST changes noted. Clinical impression: NSR w/ Non-specific ST/T Changes, 1st degree heart block, and No evidence of ischemia. Interpreted by me. Reviewed by me. Administered Medications: 09:47 Drug: NS 0.9% 500 ml Route: IV; Rate: bolus; Site: right antecubital; kg 10:45 Follow up: IV Status: Completed infusion; IV Intake: 500ml kg 09:47 Drug: NS 0.9% 1000 ml Route: IV; Rate: 125 ml/hr; Site: right antecubital; kg 13:30 Drug: Rocephin (cefTRIAXone) 1 grams Route: IV; Rate: bolus; Site: right antecubital; kg 14:17 Follow up: Response: No adverse reaction kg Disposition: 09/08/20 10:55 Hospitalization ordered by Santy Martinez for Inpatient Admission. Preliminary diagnosis are Vomiting, Volume depletion, Unspecified kidney failure - acute on chronic, Other abdominal pain, Acute pancreatitis, Essential (primary) hypertension. - Bed requested for Telemetry/MedSurg (Inpatient). - Status is Inpatient Admission. ll1 - Condition is Stable. - Problem is new. - Symptoms have improved. Signatures: Dispatcher [employer] EDMS Claudia uPlido Corey, MD MD cha Lewis, Lynsay, RN RN ll1 Corina Samuels kg Corrections: (The following items were deleted from the chart) 15:40 10:55 Hospitalization Ordered by Santy Martinez DO for Inpatient Admission. Preliminary bd diagnosis is Vomiting; Volume depletion; Unspecified kidney failure - acute on chronic; Other abdominal pain; Acute pancreatitis; Essential (primary) hypertension. Bed requested for Telemetry/MedSurg (Inpatient). Status is Inpatient Admission. Condition is Stable. Problem is new. Symptoms have improved. ian 17:38 15:40 09/08/2020 10:55 Hospitalization Ordered by Santy Martinez DO for Inpatient ll1 Admission. Preliminary diagnosis is Vomiting; Volume depletion; Unspecified kidney failure - acute on chronic; Other abdominal pain; Acute pancreatitis; Essential (primary) hypertension. Bed requested for Telemetry/MedSurg (Inpatient). Status is Inpatient Admission. Condition is Stable. Problem is new. Symptoms have improved. bd
--- NOTE | 2020-09-08 10:56 | ER ---
Nurse's Notes [facility] Name: Beto Schreiber Sr Age: 89 yrs Sex: Male : 1930 Arrival Date: 09/08/2020 Time: 08:39 Bed 8 Private MD: Diagnosis: Vomiting;Volume depletion;Unspecified kidney failure-acute on chronic;Other abdominal pain;Acute pancreatitis;Essential (primary) hypertension Presentation: 09/08 08:43 Chief complaint: EMS states: Pt son reported that after showering this morning he began kg rubbing his belly and complaining of pain. Upon arriving on scene pt was dry heaving. Coronavirus screen: Client denies travel out of the [place] in the last 14 days. Ebola Screen: Patient negative for fever greater than or equal to 101.5 degrees Fahrenheit, and additional compatible Ebola Virus Disease symptoms Patient denies exposure to infectious person. Patient denies travel to an Ebola-affected area in the 21 days before illness onset. Initial Sepsis Screen: Does the patient meet any 2 criteria? No. Patient's initial sepsis screen is negative. Does the patient have a suspected source of infection? No. Patient's initial sepsis screen is negative. Risk Assessment: Do you want to hurt yourself or someone else? Patient reports no desire to harm self or others. Onset of symptoms was September 08, 2020. 08:43 Method Of Arrival: EMS: [facility] kg 08:43 Acuity: ASMITA 3 kg Historical: - Allergies: 08:47 Meperidine; kg - Home Meds: 08:47 Coreg 3.125 mg Oral tab [Active]; Lasix 20 mg Oral tab 1 tab 2 times per day [Active]; kg levothyroxine 50 mcg tab 1 tab once daily [Active]; - Immunization history:: Adult Immunizations up to date, Client reports receiving the 2nd dose of the Covid vaccine. - Social history:: Smoking status: Patient/guardian denies using tobacco, Smoking status: unknown. - Family history:: not pertinent. Screenin:23 Abuse screen: Denies threats or abuse. Nutritional screening: No deficits noted. kg Tuberculosis screening: No symptoms or risk factors identified. Fall Risk No fall in past 12 months (0 pts). Secondary diagnosis (15 points) CVA, IV access (20 points). Ambulatory Aid- Crutches/Cane/Walker (15 pts). Gait- Weak (10 pts.). Mental Status- Oriented to own ability (0 pts). Total [place] Fall Scale indicates. Assessment: 09:22 General: Appears in no apparent distress. Behavior is calm, cooperative, appropriate kg for age, quiet. Pain: Denies pain. Neuro: No deficits noted. Cardiovascular: Heart tones S1 S2 Capillary refill < 3 seconds. Respiratory: Airway is patent Breath sounds are clear bilaterally. GI: Abdomen is round Reports upper abdominal pain, nausea. : No deficits noted. EENT: No deficits noted. Derm: No deficits noted. Musculoskeletal: No deficits noted. Vital Signs: 08:43 BP 157 / 111; Pulse 67; Resp 20; Temp 97.2(TE); Pulse Ox 98% ; Weight 68.04 kg (R); kg Height 5 ft. 6 in. (167.64 cm) (R); Pain 0/10; 10:00 BP 160 / 97; Pulse 60; Resp 18; Pulse Ox 98% ; kg 11:00 BP 136 / 99; Pulse 56; Resp 15; Pulse Ox 99% on R/A; kg 12:00 BP 162 / 95; Pulse 52; Resp 18; Pulse Ox 99% ; kg 13:00 BP 150 / 103; Pulse 53; Resp 20; Pulse Ox 99% on R/A; kg 14:00 BP 172 / 89; Pulse 56; Resp 17; Pulse Ox 95% on R/A; kg 15:00 BP 169 / 93; Pulse 61; Resp 20; Pulse Ox 99% ; kg 16:00 BP 126 / 82; Pulse 69; Resp 20; Pulse Ox 98% on R/A; kg 08:43 Body Mass Index 24.21 (68.04 kg, 167.64 cm) kg ED Course: 08:39 Patient arrived in ED. [id number] 08:43 Corina Samuels is Primary Nurse. kg 08:43 Gaston Gutiérrez MD is Attending Physician. ian 08:46 Triage completed. kg 09:00 Missed attempt(s): 20 gauge in left antecubital area. kg 09:03 Missed attempt(s): 20 gauge in left antecubital area. kg 09:10 Inserted saline lock: 20 gauge in right antecubital area, using aseptic technique. kg 09:23 Arm band placed on right wrist. kg 09:24 Patient has correct armband on for positive identification. Allergy band placed. Bed in kg low position. Call light in reach. Side rails up X2. Adult w/ patient. 09:42 XRAY Chest (1 view) In Process Unspecified. EDMS 10:06 CT Abd/Pelvis - IV Contrast Only In Process Unspecified. EDMS 10:53 Santy Martinez DO is Hospitalizing Provider. ian 16:06 Report given to Report given to Gisselle WETZEL. kg Administered Medications: 09:47 Drug: NS 0.9% 500 ml Route: IV; Rate: bolus; Site: right antecubital; kg 10:45 Follow up: IV Status: Completed infusion; IV Intake: 500ml kg 09:47 Drug: NS 0.9% 1000 ml Route: IV; Rate: 125 ml/hr; Site: right antecubital; kg 13:30 Drug: Rocephin (cefTRIAXone) 1 grams Route: IV; Rate: bolus; Site: right antecubital; kg 14:17 Follow up: Response: No adverse reaction kg Intake: 10:45 IV: 500ml; Total: 500ml. kg Outcome: 10:55 Decision to Hospitalize by Provider. ian 17:38 Patient left the ED. ll1 Signatures: Dispatcher [employer] EDGaston Valencia MD MD cha Davies, Jonathon RN RN Zeina Conroy RN RN ll1 Corina Samuels kg
--- NOTE | 2020-09-08 11:21 | RAD REPORT ---
EXAM DESCRIPTION: RAD - Chest Single View - 09/08/2020 9:42 am CLINICAL HISTORY: ABDOMINAL DISTENTION COMPARISON: Portable June 2019 TECHNIQUE: AP portable chest image was obtained 09/08/2020 9:42 am . FINDINGS: Lung volumes are low accentuating the baseline interstitial pattern. This is more pronounc ed in the left base. Patient has a hiatal hernia which is noted increase the overall density of the l eft base. There is probably some chronic atelectasis. Left base infiltrate is doubtful but not entire ly excluded. Mild edema or infiltrate could be masked by the low lung volumes. Heart size within normal range. Tra adela midline. No measurable pleural effusion and no pneumothorax. No acute bony abnormality seen. No acute aortic findings suspected. IMPRESSION: No acute cardiopulmonary process. Low lung volumes accentuates the baseline interstitial pattern potentially masking early edema or inf iltrate.
[2020-09-08] MEDS ORDERED: CEFTRIAXONE/SWI 1gm 1 GM/10 ML SYR ONE (12:34)
--- NOTE | 2020-09-08 13:05 | P.HP ---
Certification for Inpatient Patient admitted to: Observation With expected LOS: <2 Midnights Patient will require the following post-hospital care: Home Health Services Practitioner: I am a practitioner with admitting privileges, knowledge of patient current condition, hospital course, and medical plan of care. Services: Services provided to patient in accordance with Admission requirements found in Title 42 Section 412.3 of the Code of Federal Regulations Patient History Date of Service: 09/08/20 Primary Care Provider: Dr. Marcus Reason for admission: Nausea and vomiting History of Present Illness: 89-year-old -[place] male with history of hypothyroidism, traumatic brain injury with speech dysfunction, hearing loss, seizure disorder, hypertension, chronic CHF, and chronic hyponatremia. Patient presented with nausea and vomiting this morning. Most of the information came from the son who is present. Patient had nausea and vomiting. He also had some dry heaves. At the time he was complaining of abdominal pain throughout. No indication of any type of fever, chills, chest pain or shortness of breath. 911 was called to further evaluate. In the ER patient was evaluated. Vital signs stable. White count 4.7, hemoglobin 14. Sodium 142, potassium 4.0. BUN of 23, creatinine 1.38 with a GFR 59. Glucose 91. AST ALT unremarkable. Lipase 792. CT scan did not reveal any pancreatitis. Kidneys symmetric. Urinary bladder shows no abnormality. 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 Chest x-ray unremarkable. Patient was admitted for observation. Allergies meperidine HCl [From Demerol] Allergy (Verified 06/29/19 07:56) hallucinations Home medications list reviewed: Yes Home Medications: Levothyroxine [Synthroid*] 1 tab PO DAILY 06/19/19 Furosemide [Lasix*] 40 mg PO DAILY #30 tab 06/21/19 Pantoprazole [Protonix Tab*] 40 mg PO ACB #30 tab 06/21/19 Sodium Chloride Tab [Sodium Chloride*] 2 gm PO TID #180 tab 06/21/19 carvediloL [Coreg*] 3.125 mg PO BID #60 tab 06/21/19 Docusate/Senna [Senokot-S*] 2 tab PO BEDTIME PRN #60 tab 07/05/19 Zinc Oxide [Zinc Oxide 20%*] 1 appl TOP BID #1 tube 07/05/19 - Past Medical/Surgical History Diabetic: No -: Hypertension -: Hypothyroidism -: Chronic diastolic CHF -: CAD -: History of subdural hematomas -: Chronic hyponatremia -: History of traumatic brain injury with speech dysfunction -: History of PEG tube -: Craniotomy -: Hip surgery -: Neck surgery Psychosocial/ Personal History: Patient lives with son. Patient receives home health. - Family History Family History: Reviewed- Non-Contributory - Family History Mother -: Diabetes, Cancer Father -: Other (see notes) Notes: Dementia Sister -: Hypertension, Cancer - Social History Smoking Status: Never smoker Alcohol use: No CD- Drugs: No Caffeine use: Yes Place of Residence: Home Review of Systems General: As per HPI Eyes: Unremarkable ENT: Unremarkable Respiratory: Unremarkable Cardiovascular: Unremarkable Gastrointestinal: Nausea, Vomiting, Abdominal Pain, As per HPI Genitourinary: As per HPI Musculoskeletal: Unremarkable Integumentary: Unremarkable Neurological: Unremarkable Lymphatics: Unremarkable Physical Examination - Physical Exam General: Alert, In no apparent distress, Cooperative, Demented (Mild dementia) HEENT: Atraumatic, Normocephalic, Mucous membr. moist/pink Neck: Supple Respiratory: Clear to auscultation bilaterally, Normal air movement Cardiovascular: Normal pulses, Regular rate/rhythm Gastrointestinal: Normal bowel sounds, Soft and benign, Non-distended, No tenderness, No masses, No rebound, No guarding Musculoskeletal: No erythema, No tenderness, No warmth Integumentary: No tenderness/swelling, Skin breakdown Neurological: Normal strength at 5/5 x4 extr, Normal tone, Dementia (Mild) - Studies Laboratory Data (last 24 hrs) 09/08/20 09:15: PT 12.2, INR 1.06 09/08/20 09:15: WBC 4.70, Hgb 14.3, Hct 42.5, Plt Count 150 L 09/08/20 09:15: Sodium 142, Potassium 4.0, BUN 23 H, Creatinine 1.38 H, Glucose 91, Magnesium 2.1, Total Bilirubin 0.4, AST 16, ALT 18, Alkaline Phosphatase 90, Lipase 792 H Assessment and Plan - Plan Impression: Nausea, vomiting with abdominal pain suspect gastroenteritis Hypertension Hypothyroidism Chronic CHF Chronic hyponatremia History of traumatic brain injury with speech dysfunction Seizure disorder Plan: Nausea, vomiting with abdominal pain suspect gastroenteritis: Patient will be admitted for further evaluation and treatment. Patient without nausea and vomiting. Will provide medication for nausea. Suspect viral gastroenteritis. Need to rule out UTI especially with history of bladder diverticulum. No abdominal pain noted at this time. Will provide IV fluids. DVT prophylaxis in place. We will continue to monitor closely. If improved anticipate possible discharge tomorrow. Hypertension: Patient no longer taking medication. Will monitor this closely. Hypothyroidism: Continue with medication. Will check TSH and free T4. Chronic CHF: Hold Lasix at this time. Chronic hyponatremia: Continue with sodium chloride tablet. History of traumatic brain injury with speech dysfunction: Continue with DVT prophylaxis. Monitor closely. Seizure disorder: Continue medication. DVT prophylaxis: We will continue with heparin Advanced care [id number] minutes: This was addressed in detail with son. Patient is DNR. Patient will continue with home health and physical therapy at discharge. Patient uses walker at home. Discharge Plan: Home Plan to discharge in: 24 Hours - Advance Directives Does patient have a Living Will: Yes Does patient have a Durable POA for Healthcare: Yes - Code Status/Comfort Care Code Status Assessed: Yes (Patient is DNR) Time Spent Managing Pts Care (In Minutes): 55
[2020-09-08 14:09] LABS: Urine Blood 1+ (Negative); Urine Glucose Negative (Negative); Urine Protein Negative (Negative); Urine Specific Gravity 1.015 (1.005-1.030)
[2020-09-08] MEDS ORDERED: ONDANSETRON 4 MG/2 ML VIAL IV PRN (16:02)
[2020-09-08] MEDS ORDERED: NA CHLORIDE 0.9% 1,000 ML IV SCH (16:02)
[2020-09-08] MEDS ORDERED: ACETAMINOPHEN 500 MG TAB PO PRN (16:02)
[2020-09-08] MEDS: CEFTRIAXONE/SWI 1gm 1 GM/10 ML SYR IV SCH (17:21)
[2020-09-08 17:38] VITALS: BMI 29.0
[2020-09-08] MEDS: HEPARIN 5000 UNIT/ML 1 ML VIAL SQ SCH (20:12)
[2020-09-08] MEDS: FAMOTIDINE 20 MG TAB PO SCH (20:13)
[2020-09-08] MEDS ORDERED: OXcarbazepine 150 MG TAB PO SCH (21:00)
[2020-09-09] MEDS ORDERED: LEVOTHYROXINE SOD 0.075 MG TAB PO SCH (06:30)
--- NOTE | 2020-09-09 08:55 | P.DS ---
Admission Date: 09/08/20 Discharge Date: 09/09/20 Primary Care Provider: Dr. Marcus Disposition: ROUTINE DISCHARGE Discharge Condition: GOOD Reason for Admission: Nausea and vomiting Consultations: none Procedures: COVID: Negative CT scan: FINDINGS: No acute finding in the lung bases. Chronic interstitial lung changes are present accentuated by respiratory motion. Moderate-sized hiatal hernia is not clearly different from comparison. Myocardial calcifications near the apex unchanged. No pericardial effusion. The liver, spleen, and pancreas show no suspicious findings. Gallbladder and biliary tree are also without suspicious finding. Symmetric renal function is seen with no hydronephrosis or suspicious renal mass. No pyelonephritis or acute parenchymal process. Left-side cortical and right-side parapelvic cysts are similar to comparison, may be slightly larger. No suspicious characteristics. Urinary bladder shows no gross abnormality of concern. 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 Pelvic floor and inferior bladder are obscured by the bilateral hip prosthesis spray artifact. No adrenal abnormalities. No gross gastric abnormality seen. Lumen of the stomach is almost entirely empty. No dilated large or small bowel loop. No evidence for appendicitis. Active bowel process is not identifiable. No free air, free fluid or inflammatory stranding. No hernia, mass or bulky lymphadenopathy. Prominent disc and bony degenerative changes are present. No pathologic bone process identified. Prominent aortic atherosclerotic calcifications are present. Maximum aortic diameter is 2.6 cm in the mid infrarenal portion. This is similar in size to the 2016 study. No acute vascular finding. IMPRESSION: Contrast enhanced CT abdomen and pelvis showing no acute or emergent finding. Exam has moderately prominent motion degradation affects. This decreases sensitivity somewhat though a significant abdominal or pelvic acute process is not suspected. Nonacute findings are detailed in the body of the report. CXR: COMPARISON: Portable June 2019 TECHNIQUE: AP portable chest image was obtained 09/08/2020 9:42 am . FINDINGS: Lung volumes are low accentuating the baseline interstitial pattern. This is more pronounced in the left base. Patient has a hiatal hernia which is noted increase the overall density of the left base. There is probably some chronic atelectasis. Left base infiltrate is doubtful but not entirely excluded. Mild edema or infiltrate could be masked by the low lung volumes. Heart size within normal range. Trachea midline. No measurable pleural effusion and no pneumothorax. No acute bony abnormality seen. No acute aortic findings suspected. IMPRESSION: No acute cardiopulmonary process. Low lung volumes accentuates the baseline interstitial pattern potentially masking early edema or infiltrate. Medical Problem List: Nausea, vomiting with abdominal pain likely related to moderate size hiatal hernia with GERD Hypothyroidism Chronic CHF Chronic hyponatremia History of traumatic brain injury with speech dysfunction Seizure disorder Brief History of Present Illness: 89-year-old -[place] male with history of hypothyroidism, traumatic brain injury with speech dysfunction, hearing loss, seizure disorder, hypertension, chronic CHF, and chronic hyponatremia. Patient presented with nausea and vomiting this morning. Most of the information came from the son who is present. Patient had nausea and vomiting. He also had some dry heaves. At the time he was complaining of abdominal pain throughout. No indication of any type of fever, chills, chest pain or shortness of breath. 911 was called to further evaluate. In the ER patient was evaluated. Vital signs stable. White count 4.7, hemoglobin 14. Sodium 142, potassium 4.0. BUN of 23, creatinine 1.38 with a GFR 59. Glucose 91. AST ALT unremarkable. Lipase 792. CT scan did not reveal any pancreatitis. Kidneys symmetric. Urinary bladder shows no abnormality. 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 Chest x-ray unremarkable. Patient was admitted for observation. Hospital Course: Patient presented with nausea, vomiting and abdominal pain. X-ray and CT scan revealed moderate hiatal hernia. Patient likely with GERD. No evidence of infection identified. Patient was able to tolerate his diet. At discharge will recommend to continue Protonix 40 mg daily. GERD diet provided. If this worsens patient may benefit with GI evaluation to further assess. Follow-up with PCP in 1 week to follow his hospitalization and continue his care. Patient with hypothyroidism. At discharge patient will continue with Synthroid 0.75 mcg daily. Recommend follow-up with PCP to further monitor and adjust. Patient with chronic CHF. At discharge patient may continue with Lasix 20 mg daily and aspirin 81 mg daily. If able to control fluid intake and monitor weight may need to use Lasix as needed. This can be further monitored and adjusted by his PCP. Patient had some mild renal insufficiency. Lasix was held. Patient given IV fluids. This can be monitored and adjusted appropriately. Patient with chronic hyponatremia. Patient currently on sodium chloride tablet. This appears stable. Continue with medication. Recommend to recheck labBMP in 1 week to monitor his progress. Patient with history of traumatic brain injury with speech dysfunction and seizure disorder. At discharge patient will continue with oxcarbazepine 150 mg 1 pill twice daily. Recommend follow-up with neurology as directed. CT scan revealed bladder diverticulum. No evidence of UTI at this time. This can be further monitored as an outpatient. Vital Signs/Physical Exam: Temp Pulse Resp BP Pulse Ox 97.3 F 50 16 144/70 H 97 09/09/20 04:00 09/09/20 04:00 09/09/20 04:00 09/09/20 04:00 09/09/20 04:00 General: Alert, In no apparent distress, Cooperative HEENT: Atraumatic Neck: Supple Respiratory: Clear to auscultation bilaterally, Normal air movement Cardiovascular: Normal pulses, Regular rate/rhythm Gastrointestinal: Normal bowel sounds, Soft and benign, Non-distended, No masses, No rebound, No guarding Musculoskeletal: No erythema, No tenderness, No warmth Neurological: Normal strength at 5/5 x4 extr, Normal tone, Normal affect, Abnormal speech (Patient with residual abnormal speech) Laboratory Data at Discharge: WBC 4.70 K/uL (4.3-10.9) 09/08/20 09:15 Hgb 14.3 g/dL (13.6-17.9) 09/08/20 09:15 Hct 42.5 % (39.6-49.0) 09/08/20 09:15 Plt Count 150 K/uL (152-406) L 09/08/20 09:15 PT 12.2 SECONDS (9.5-12.5) 09/08/20 09:15 INR 1.06 09/08/20 09:15 Sodium 142 mmol/L (136-145) 09/08/20 09:15 Potassium 4.0 mmol/L (3.5-5.1) 09/08/20 09:15 BUN 23 mg/dL (7-18) H 09/08/20 09:15 Creatinine 1.38 mg/dL (0.55-1.3) H 09/08/20 09:15 Glucose 91 mg/dL (74-106) 09/08/20 09:15 Magnesium 2.1 mg/dL (1.8-2.4) 09/08/20 09:15 Total Bilirubin 0.4 mg/dL (0.2-1.0) 09/08/20 09:15 AST 16 U/L (15-37) 09/08/20 09:15 ALT 18 U/L (12-78) 09/08/20 09:15 Alkaline Phosphatase 90 U/L (45-117) 09/08/20 09:15 Lipase 792 U/L (73-393) H 09/08/20 09:15 Home Medications: Levothyroxine [Synthroid*] 0.75 tab PO DAILY 06/19/19 Aspirin [Valent[place] Chewable Aspirin] 1 tab PO DAILY 09/08/20 Furosemide [Lasix*] 20 mg PO DAILY 09/08/20 OXcarbazepine [Oxcarbazepine] 150 mg PO BID 09/08/20 Sodium Chloride Tab [Sodium Chloride*] 1 gm PO DAILY 09/08/20 Pantoprazole [Protonix Tab] 40 mg PO DAILY #30 tab 09/09/20 New Medications: Pantoprazole [Protonix Tab] 40 mg PO DAILY #30 tab Physician Discharge Instructions: Patient presented with nausea, vomiting and abdominal pain. X-ray and CT scan revealed moderate hiatal hernia. Patient likely with GERD. No evidence of infection identified. Patient was able to tolerate his diet. At discharge will recommend to continue Protonix 40 mg daily. GERD diet provided. If this worsens patient may benefit with GI evaluation to further assess. Follow-up with PCP in 1 week to follow his hospitalization and continue his care. Patient with hypothyroidism. At discharge patient will continue with Synthroid 0.75 mcg daily. Recommend follow-up with PCP to further monitor and adjust. Patient with chronic CHF. At discharge patient may continue with Lasix 20 mg daily and aspirin 81 mg daily. If able to control fluid intake and monitor weight may need to use Lasix as needed. This can be further monitored and adjusted by his PCP. Patient had some mild renal insufficiency. Lasix was held. Patient given IV fluids. This can be monitored and adjusted appropriately. Patient with chronic hyponatremia. Patient currently on sodium chloride tablet. This appears stable. Continue with medication. Recommend to recheck labBMP in 1 week to monitor his progress. Patient with history of traumatic brain injury with speech dysfunction and seizure disorder. At discharge patient will continue with oxcarbazepine 150 mg 1 pill twice daily. Recommend follow-up with neurology as directed. CT scan revealed bladder diverticulum. No evidence of UTI at this time. This can be further monitored as an outpatient. Diet: AHA Activity: Fall precautions Followup: Unknown,U [Primary Care Provider] - Time spent managing pt's care (in minutes): 55
[2020-09-09] MEDS ORDERED: SODIUM CHLORIDE 1 GM TAB PO SCH (09:00)
[2020-09-09] MEDS ORDERED: ASPIRIN EC 81 MG TAB PO SCH (09:00)
[2020-09-09 10:17] LABS: Bilirubin Total 0.4 mg/dL (0.2-1.0); Potassium 3.8 mmol/L (3.5-5.1)
[2020-09-09 10:18] LABS: Albumin 3.4 g/dL (3.4-5.0); Protein, Total 6.7 g/dL (6.4-8.2); Thyroid Stimulating Hormone 0.294 uIU/mL (0.360-3.740)
[2020-09-09] MEDS: HEPARIN 5000 UNIT/ML 1 ML VIAL SQ SCH (10:35)
[2020-09-09] MEDS: CEFTRIAXONE/SWI 1gm 1 GM/10 ML SYR IV SCH (10:36)
[2020-09-09] MEDS: FAMOTIDINE 20 MG TAB PO SCH (10:36)
--- NOTE | 2020-09-09 11:36 | EKG ---
Test Date: 2020-09-08 Test Time: 08:45:13 Quality Improvement Specialist: JOSH MEASUREMENT RESULTS: Intervals: Rate: 74 MT: 224 QRSD: 84 QT: 406 QTc: 450 [place]: P: 31 MT: 224 QRS: -89 T: 93 INTERPRETIVE STATEMENTS: Sinus rhythm with sinus arrhythmia with 1st degree AV block with occasional premature ventricular complexes and fusion complexe Low voltage QRS Left anterior fascicular block Possible Anterolateral infarct, age undetermined Abnormal ECG Compared to ECG 06/18/2019 11:58:58 Ventricular premature complex(es) now present Left anterior fascicular block now present Left-axis deviation no longer present T-wave abnormality no longer present Possible ischemia no longer present Myocardial infarct finding still present Electronically Signed On 09-09-20 11:31:27 CDT by Candido Dupont
[2020-09-09 12:36] VITALS: BP 129/73; TEMP 96.8
[2020-09-09 16:23] VITALS: O2SAT 96
== END 2020-09-09 15:45 | disposition home or self-care (01) ==
LOC: ER 08:31 → ERHOLD 11:50 → 4TH 16:12
PROVIDERS: ADMIT Family Medicine; ATTEND Family Medicine
DX: R11.2 Nausea with vomiting, unspecified (principal); K44.9 Diaphragmatic hernia without obstruction or gangrene; K21.9 Gastro-esophageal reflux disease without esophagitis; I11.0 Hypertensive heart disease with heart failure; I50.32 Chronic diastolic (congestive) heart failure; E87.1 Hypo-osmolality and hyponatremia; Z20.822 Contact with and (suspected) exposure to COVID-19; G40.909 Epilepsy, unspecified, not intractable, without status epilepticus; R94.31 Abnormal electrocardiogram [ECG] [EKG]; E03.9 Hypothyroidism, unspecified; Z87.820 Personal history of traumatic brain injury; R47.9 Unspecified speech disturbances; I25.10 Atherosclerotic heart disease of native coronary artery without angina pectoris
CPT/HCPCS: 96361; 93005; 87040; 87088; 85025; 87086; 80048; 36415; 83735 ×2; 85610; 82565; 80076; 84443; 81003; 84484; 84439; 83690 ×2; 80053; 84145; 83880; 74177; 71045; 96374; 99284; U0003; Q9967; J1644 ×2; J0696 ×3; J7040; J7030 ×2; G0378 ×3; 87077; 87186

== ENCOUNTER 2020-09-10 17:09 | Inpatient (IN) | payer OTHER ==
--- OUTSIDE RECORDS SUMMARY | 2020-09-10 17:20 | XMS REPORT | Continuity of Care Document ---
:1930 Author Organization [facility] t Address [address] [place] [address] [place] [address] Care Team Providers Name Role Phone Anthony Marcus Attending Clinician [phone] Edwardo DALTON, H Attending Clinician Evelyn Sharif MD Attending Clinician [...] Expiration Date Sour ce Number MEDICAREMEDICARE A [id number] 1995 [facility] [id number] [facility]P 00:[facility] Problems Condition Condition Condition Status Onset Resolution Last Treating Co mments Source Name Details Category Date Date Treatment Clinician Date TBI TBI Disease Active 2019- [facility] (traumatic (traumatic 6 Camilla kes - brain brain 00:00: Medical injury) injury) 00 Center Seizure Seizure Disease Active 2019- [facility] disorder [facility] - [facility] 00 [place] Dementia Dementia Disease [facility] [place] Acute Acute Disease Active 2019- [facility] encephalop encephalop 605 Camilla kes - athy athy 00:00: Medical 00 [place] OTHER Diagnosis Active 2019-07-16 Mem oria 3- 21:55:00 l OTHER 00:00: [place] 00 Active 07/07/2019 [place] HYPONATREM Diagnosis Active 2019-05-31 Memoria IA 05-17 21:51:00 l 00:00: [place] HYPONATREM 00 IA Active 0 [facility] GI BLEED Diagnosis Active 2018-042019-04-24 M emoria 2-22 22:00:00 l GI BLEED 00:00: [place] 00 Active 04/08/2019 [place] ABNORMAL Diagnosis Active 2018-042019-04-05 emoria LABS 2-11 22:05:00 l ABNORMAL 00:00: [place] LABS 00 Active 03/28/2019 [facility] [place] AMS Diagnosis Active 2018-042019-03-28 Mem oria 2-11 20:50:00 l AMS 00:00: Master 00 Active 03/28/2019 [facility] CHRONIC Diagnosis Active 2018-042019-04-17 Me moria HYPONATREM 2-11 21:54:00 l IA CHRONIC 00:00: [place] HYPONATREM 00 IA Active 9 [facility] S06.5X0S - Diagnosis Active 2018-042019-05-24 Memoria TRAUM 05-13 10:29:00 l SUBDR HEM S06.5X0S 00:01: Her addison W/O LOSS - TRAUM 00 OF C SUBDR HEM W/O LOSS OF C Active 03/13/2019 TRINA Thao FALL Diagnosis Active 2018-042019-03-06 Mem oria - 22:18:00 l FALL 00:00: [place] 00 Active 03/06/2019 [facility] SDH Diagnosis Active 2018-042019-03-22 Mem oria 05-06 22:22:00 l SDH 00:00: [place] 00 Active 03/06/2019 [facility] SANDY Diagnosis Active 2018-042019-02-15 Memoria BILLING/55 0-30 09:53:00 l 15 00:00: Master SANDY 00 BILLING/55 15 Active 9 [facility] SAH Diagnosis Active 2018-042019-03-05 Mem oria 030 21:43:00 l SAH 00:00: [place] 00 Active 02/14/2019 [facility] Cervico-oc Problem Active 2019-08-19 M emoria cipital 04-19 21:09:17 l neuralgia 00:00: Master (finding) Cervico-oc 00 cipital neuralgia (finding) Active 04/19/2013 Problem 08/19/2019 Data migrated from Blink on 09/17/14. Medical Group,[facility], Nathalie Erickson,[facility], [place] Coronary Problem Active 2019-08-19 Mem oria arterioscl 04-19 21:09:17 l erosis Coronary 00:00: [place] (disorder) arterioscl 00 erosis (disorder) Active 04/19/2013 Problem 08/19/2019 Data migrated from Artillery on 09/17/14. Medical Group,[facility], Nathalie Erickson,[facility] [place] Degenerati Problem Active 2012-042019-08-19 M emoria on of 06-10 21:09:17 l cervical 00:00: Master interverte Degenerati 00 bral disc on of (disorder) cervical interverte bral disc (disorder) Active 04/09/2013 Problem 08/19/2019 Data migrated from Blink on 12/10/14. Medical Group,[facility], Der, Rolo Thao,[facility], [place] Headache Problem Active 2012-042019-08-19 Mem oria (finding) 06-10 21:09:17 l Headache 00:00: [place] (finding) 00 Active 04/09/2013 Problem 08/19/2019 Data migrated from Artillery on 12/10/14. Medical Group,[facility], Dre, Rolo Thao,[facility], [place] History of Problem Active 2012-042019-08-19 M emoria - 06-10 21:09:17 l myocardial History 00:00: Her addison infarction of - 00 (context-d myocardial ependent infarction category) (context-d ependent category) Active 04/09/2013 Problem 08/19/2019 Data migrated from Artillery on 12/10/14. Medical Group,[facility], Dre, Rolo Thao,[facility] Cervical Cervical Problem Active [facility] Nontraumat Problem 2019-03-11 M emoria ic chronic 23:00:38 l subdural [place] hemorrhage Nontraumat ic chronic subdural hemorrhage 03/11/2019 [facility] Illness, Problem 2019-05-29 Mem oria unspecifie 22:28:06 l d Illness, [place] unspecifie d 05/29/2019 [facility] Gastrointe Problem Resolve 2019-08-19 Memoria stinal d 21:09:17 l hemorrhage [place] (disorder) Gastrointe stinal hemorrhage (disorder) Resolved [facility] [place] Syndrome Problem Resolve 2019-08-19 Me moria of d 21:09:17 l inappropri 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 (disorder) n secretion (disorder) Resolved Problem 08/19/2019 [facility] [place] Atrial Problem Active 2019-08-19 Memor ia fibrillati 21:09:17 l on Atrial Master (disorder) fibrillati on (disorder) Active Problem 08/19/2019 [facility] [place] 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 [place] 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) Active Problem 08/19/2019 [facility], [place] Congestive Problem Active 2019-08-19 M emoria heart 21:09:17 l failure Master (disorder) Congestive heart failure (disorder) Active Problem 08/19/2019 [facility], [place] Fatigue Problem Active 2019-08-19 [place] (finding) 21:09:17 l Fatigue Master (finding) Active Problem 08/19/2019 Medical Group,[facility], Dre,M Rolo Thao,[facility], [place] Hematoma Problem Active 2019-08-19 Mem oria of 21:09:17 l subdural Hematoma Herm ruddy space of of neuraxis subdural (disorder) space of neuraxis (disorder) Active Problem 08/19/2019 [facility], [place] Hypertensi Problem Active 2019-08-19 M emoria ve 21:09:17 l disorder, [place] systemic Hypertensi arterial ve (disorder) disorder, systemic arterial (disorder) Active Problem 08/19/2019 [facility], [place] Hypothyroi Problem Active 2019-08-19 M emoria dism 21:09:17 l (disorder) [place] Hypothyroi dism (disorder) Active Problem 08/19/2019 [facility], [place] Myocardial Problem Active 2019-08-19 M emoria infarction 21:09:17 l (disorder) [place] Myocardial infarction (disorder) Active Problem 08/19/2019 [facility], [place] Pulmonary Problem Active 2019-08-19 Me moria embolism 21:09:17 l (disorder) [place] Pulmonary embolism (disorder) Active Problem 08/19/2019 Medical Group,[facility], Dre,M Rolo Thao,[facility], [place] Sinus Problem Active 2019-08-19 Memor ia bradycardi 21:09:17 l a Sinus [place] (disorder) bradycardi a (disorder) Active Problem 08/19/2019 [facility], [place] Urinary Problem Active 2019-08-19 [place] tract 21:09:17 l infectious Urinary Her addison disease tract (disorder) infectious disease (disorder) Active Problem 08/19/2019 Medical Group,[facility],M H TRINA Thao,[facility], [place] Asthenia Problem Active 2019-08-19 Mem oria (finding) 21:09:17 l Asthenia [place] (finding) Active Problem 08/19/2019 Medical Group,[facility],M H TRINA Thao,[facility], [place] NONTRAUMAT Diagnosis Active 2019-03-05 Memoria IC 21:43:00 l SUBARACHNO [place] ID NONTRAUMAT HEMORRHAGE IC , UN SUBARACHNO ID HEMORRHAGE , UN Active [facility] NONTRAUMAT Diagnosis Active 2019-03-22 Memoria IC CHRONIC 22:22:00 l SUBDURAL Master HEMORRHAGE NONTRAUMAT IC CHRONIC SUBDURAL HEMORRHAGE Active [facility] HYPO-OSMOL Diagnosis Active 2019-05-31 Memoria ALITY AND 21:51:00 l HYPONATREM [place] IA HYPO-OSMOL ALITY AND HYPONATREM IA Active [facility] TRAUM Diagnosis Active 2019-05-31 Mem oria SUBDR HEM 21:51:00 l W LOC OF TRAUM [place] UNSP SUBDR HEM DURATION, W LOC OF UNSP DURATION, Active [facility] ILLNESS, Diagnosis Active 2019-05-17 M emoria UNSPECIFIE 12:34:00 l D ILLNESS, [place] UNSPECIFIE D Active [facility] Low back Low back Problem Active [facility] Thoracic Thoracic Problem Active [facility] Allergies, Adverse Reactions, Alerts Allergy Allergy Status Severity Reaction(s) Onset Inactive Treating Comm ents Source Name Type Date Date Clinician Laura Propensi Active [facility] ne (Pf) ty to 09-21 [facility] - adverse 00:00: Medical reaction 00 Center s meperidi meperidi Active 2012-04 Memori a ne<sup>1 ne<sup>1 2-20 l </sup> </sup> 06:00: [place] 00 Social History Social Habit Start Date Stop Date Quantity Comments Source Sex Assigned At [facility] Social History 2019-07-07 2019-07-07 [facility] Rolo hussein 11:12:48 11:12:48 Smoking Status Start Date Stop Date Source Social History [facility] Medications Ordered Filled Start Stop Current Ordering Indication Dosage Frequency Signature Comments Components Source Medication Medication Date Date Medication? Clinician (SIG) Name Name OXcarbazepi 2020-2020- No 150mg Q.5D Take [address] [facility] 10-12 tablet [facility] - (TRILEPTAL) 00:00: 23:59 (150 mg Me dical 150 MG 00 :00 total) by Center tablet mouth 2 (two) times daily. levoFLOXaci 2019-2019- No 250mg Q24H Take [address] n 09-28 tablet [facility] - (LEVAQUIN) 00:00: 23:59 (250 mg Med ical 250 MG 00 :00 total) by Center tablet mouth daily for 10 days. furosemide 2019-0 Yes 40mg QD Take 40 mg C [...] morning on tablet an empty stomach. sodium 2019-2019- No 1g [id number] Take [address] [facility] chloride 1 09-27- [id number] by mouth 3 [facility] - gram tablet 12:10: 00:00 3D (three) Me dical 54 :00 times Center daily. divalproex 2019-0 2020- No 250mg Q.[id number] Take [address] (DEPAKOTE) -03 23- [id number] mg by L ukes - 125 MG EC 12:10: 00:00 3D mouth 3 Medi cassie tablet 54 :00 (three) Center times daily. valproic 2019-0 2020- No 250mg Q.[id number] Take [address] [address] acid, as 09-27 [id number] (250 mg L ukes - sodium 00:00: 23:59 3D total) by Medic al salt, 00 :00 mouth 3 Center (DEPAKENE) (three) 250 mg/5 mL times (5 mL) daily for solution 15 days. Protonix No Notes: Memoria 3-24 Tablet l 12:30: should not [place] 00 be chewed or crushed. (Same as: Protonix) Divalproex No Notes: Memor ia Sodium 125 3-23 Hazardous l MG Enteric 23:00: Drug Group H ermann Coated 00 2:Non-anti Capsule neoplastic [Depakote] Hazardous Drug -- Refer to safe handling procedure PPE Matrix (Same as: Depakote Sprinkles) Do not confuse with 250mg capsule or tablets Do not crush. May sprinkle on food. Divalproex Yes 250 mg = 2 M emoria Sodium 125 3-23 cap, PO, l MG Enteric 22:21: Q6H, # 240 H ermann Coated 00 cap, 0 Capsule Refill(s) [Depakote] Divalproex No 500 mg = 2 M emoria Sodium 250 3-23 tab, PO, l MG Enteric 21:41: Q8H, # 180 H ermann Coated 00 tab, 0 Tablet Refill(s) Famotidine Yes 20 mg = 1 Me moria 20 MG Oral 3-23 tab, PO, l Tablet 20:42: BID, # 60 [place] [Pepcid] 00 tab, 0 Refill(s), Pharmacy: [facility] #[id number] carvedilol 2019-0 Yes 3.125 mg = M emoria 3.125 mg 3-23 1 tab, l oral tablet 19:09: PEG, Q12H, Master 00 0 Refill(s) Aspirin 81 2019-0 Yes 81 mg = 1 Me moria MG Enteric 3-23 tab, PO, l Coated 19:09: Q24H, # 30 Fabi nn Tablet 00 tab, 0 Refill(s), Pharmacy: [facility] #[id number] atorvastati 2019- Yes 40 mg = 1 M emoria n 40 mg 3-23 tab, PO, l oral tablet 19:09: Bedtime, # Master 00 30 tab, 0 Refill(s), Pharmacy: [facility] #[id number] Divalproex No 500 mg = 2 M emoria Sodium 250 3-23 tab, PO, l MG Enteric 19:09: Q8H, # 180 H ermann Coated 00 tab, 0 Tablet Refill(s), Pharmacy: [facility] #[id number] Lipitor No Notes: Memoria 3-23 (Same as: l 02:20: Lipitor) Master 00 Saline No Notes: Memoria Flush 0.9% 3-23 (Same as: l 02:00: BD Master Posiflush) Aspirin 81 No Notes: Do Me moria MG Enteric 3-23 not crush l Coated 00:00: or chew. Master Tablet 00 (Same As: Ecotrin) Saline No Notes: Memoria Flush 0.9% 3-22 (Same as: l 23:18: BD Master Posiflush) Levetiracet No Notes: [place] am 500 MG 3-22 (Same l Oral Tablet 02:00: as:Keppra) Master [Keppra] 00 Depakote No Notes: Memoria 3-21 Hazardous l 21:00: Drug Group [place] 00 2:Non-anti neoplastic Hazardous Drug -- Refer to safe handling procedure PPE Matrix (Same as: Depakote Delayed Release) Do not confuse with the extended-r elease tablet. Delayed absorption , enteric coated tablet. Do not crush Docusate No Notes: Memoria 3-21 (Same as: l 14:00: Colace) Master 00 (Do Not Crush) carvedilol No Notes: Memor ia 3-21 Give with l 14:00: food. Master 00 (Same As: Coreg) Furosemide No Notes: Memor ia 40 MG Oral 3-21 (Same as: l Tablet 14:00: Lasix) Master [Lasix] 00 May cause GI upset. Give with food or milk. Sodium No 2 gm, 2 Memoria Chloride 3-21 [...] as: Protonix) sennosides, No Notes: [place] LONG-TERM 3-21 (Same as: l 11:56: Senokot) Lanolin Yes TOP, Memoria 0.157 MG/MG 3-21 Daily, 0 l / Menthol 11:40: Refill(s) Her addison 0.0044 00 MG/MG / Petrolatum 0.24 MG/MG / Zinc Oxide 0.206 MG/MG Topical Ointment [Calmosepti ne] carvedilol No 3.125 mg = M emoria 3.125 mg 3- 1 tab, PO, l oral tablet 11:40: Q12H, 0 Her addison 00 Refill(s) Thyroxine 0 Yes 50 Memoria 3-21 microgram, l 11:40: PO, Daily, Master 00 0 Refill(s) Sodium 2019- Yes 2 grams, Memoria Chloride -21 PEG, TID, l 11:40: 0 [place] 00 Refill(s) Furosemide 2019- Yes 40 mg = 1 Me moria 40 MG Oral 3-21 tab, PO, l Tablet 11:40: Daily, 0 Master [Lasix] 00 Refill(s) sennosides, 2019- Yes 8.6 mg =, M emoria LONG-TERM 3-21 PEG, PRN, l 11:40: 0 Master 00 Refill(s) Melatonin No Notes: Memori a 3-21 (Same as: l 07:24: Melatonin) Lorazepam No Notes: Memori a 3-21 (Same as: l 07:13: Ativan) Dextrose 2019- No 12.5 gm, Memor ia 50% Syringe -21 25 mL, l (D50W) 07:13: Route: [place] 00 IVP, Drug Form: INJ, Dosing Weight 81.6, kg, PRN, PRN Blood Glucose Results, Start date: 07/07/19 2:13:00 CDT, Duration: 30 day, Stop date: 08/06/19 2:12:00 CDT, 0 Glucagon 2020-0 No 1 mg, Memoria 07-06 Route: IM, l 07:13: Drug form: Master 00 PDR/INJ, PRN, Dosing Weight 81.6, kg, PRN Blood Glucose Results, Start date: 07/07/19 2:13:00 CDT, Duration: 30 day, Stop date: 08/06/19 2:12:00 CDT, 0 Ondansetron 2019-0 No Notes: [place] 07-06 (Same as: l 07:13: Zofran) [place] 00 MEDICATION WASTE Product Size: 4 mg Product Wasted: ___ mg Acetaminoph 2019-0 No Notes: Do M emoria en 07-06 not exceed l 07:13: 4 gm/day. Master 00 (Same as: Tylenol) Sodium 2020-0 Yes 1 gm = 1 Memoria Chloride 2-09 tab, PO, l 1000 MG 17:26: TID, # 21 Fabi nn Oral Tablet 00 tab, 0 Refill(s), Pharmacy: [facility] #[id number] Furosemide 2020-0 Yes 20 mg = 1 Me moria 20 MG Oral 2-09 tab, PO, l Tablet 17:26: Daily, # 7 Fabi nn [Lasix] 00 tab, 0 Refill(s), Pharmacy: [facility] #[id number] Furosemide 2020-0 No Notes: Memor ia 20 MG Oral 2-09 (Same as: l Tablet 15:00: Lasix) Master [Lasix] 00 May cause GI upset. Give with food or milk. carvedilol 2020-0 No 3.125 mg, Me moria 2-08 Route: PO, l 03:00: Drug form: Master 00 TAB, Q12H, Dosing Weight 81.6, kg, Start date: 05/25/19 21:00:00 [employer], Duration: 30 day, Stop date: 06/24/19 9:00:00 CDT Saline 2020-0 No Notes: Memoria Flush 0.9% 2-06 Same as: l 22:00: BD Master 00 Posiflush Sterile Saline 2019-0 No Notes: Memoria Flush 0.9% 2-06 Same as: l 20:06: BD [place] 00 Posiflush Sterile sodium 2019-0 No Notes: Memoria bicarbonate 2-06 "Dissolve l [...] 2-06 Same as : l 00:57: Lipase Master 00 20368 Units, Protease 38,000 units, Amylase 23583 units Reglan 2019-0 No Notes: Memoria 2-06 (Same as: l 00:27: Reglan) Master 00 Lasix 2019-0 No Notes: Memoria 2-05 (Same as: l 22:00: Lasix) Master 00 Seroquel 2019-0 No Notes: Memoria 2-05 (Same as: l 15:53: SEROquel) Master 00 Sodium 2020-0 No 1 gm, 1 Memoria Chloride 2-05 tab, l 1000 MG 15:00: Route: PO, Herm ruddy Oral Tablet 00 Drug form: TAB, TID, Dosing Weight 81.6, kg, Start date: 05/23/19 9:00:00 [employer], Duration: 30 day, Stop date: 06/21/19 17:00:00 [employer], 0 Sodium 2020-0 No 1 gm, 1 Memoria Chloride 2-04 tab, l 1000 MG 18:28: Route: PO, Herm ruddy Oral Tablet 00 Drug form: TAB, BID, Dosing Weight 81.6, kg, Start date: 05/22/19 12:28:00 [employer], Duration: 30 day, Stop date: 06/21/19 9:00:00 [employer], 0 Sodium 2020-0 No 1,000 mL, Memori a Chloride 2-04 Rate: 40 l 0.9% IV 18:27: ml/hr, Master 1,000 mL 00 Infuse over: 25 hr, Route: IV, Dosing Weight 81.6 kg, Total Volume: 1,000, Start date: 05/22/19 12:27:00 [employer], Duration: 2 day, Stop date: 05/24/19 12:26:00 [employer], 1.92, m2, 0 sennosides, 2019-0 No Notes: [place] LONG-TERM 2-03 (Same as: l 23:00: Senokot) Master 00 Dulcolax 2019-0 No Notes: Memoria Laxative 2-03 (Same As: l 16:21: Dulcolax, Correctol) (Do Not Crush) "Do Not Crush" Sodium 2019-0 No 1,000 mL, Memori a Chloride 2- Rate: 80 l 0.9% IV 15:42: ml/hr, [place] 1,000 mL 00 Infuse over: 12.5 hr, Route: IV, Dosing Weight 81.6 kg, Total Volume: 1,000, Start date: 05/21/19 9:42:00 [employer], Duration: 2 day, Stop date: 05/23/19 9:41:00 [employer], 1.92, m2, 0 Hydralazine 2019-0 No Notes: [place] 2-01 (Same as: l 18:35: Apresoline ) Push over 5 minutes Tylenol 2019-0 No 1,000 mg, Memor ia 2-01 Route: PO, l 15:01: ONCE, Master Dosing Weight 81.6, kg, Priority: NOW, Start date: 05/19/19 9:01:00 [employer], Stop date: 05/19/19 9:01:00 [employer] D5W 100 mL 2019-0 No 100 mL, [place] 2-01 Rate: 100 l 12:32: ml/hr, [place] 00 Infuse over: 1 hr, Route: IV, Dosing Weight 81.6 kg, Total Volume: 100, Priority: STAT, Start date: 05/19/19 6:32:00 [employer], Duration: 1 doses or times, Stop date: 05/19/19 7:31:00 [employer], 1.92, m2, 0 D5W 100 mL 2020-0 No 100 mL, [place] 2-01 Rate: 100 l 09:28: ml/hr, [place] Infuse over: 1 hr, Route: IV, Dosing Weight 81.6 kg, Total Volume: 100, Priority: STAT, Start date: 05/19/19 3:28:00 [employer], Duration: 1 doses or times, Stop date: 05/19/19 4:27:00 [employer], 1.92, m2, 0 D5W 1,000 2020-0 No 1,000 mL, Mem oria mL 2- Rate: 100 l 02:07: ml/hr, Master 00 Infuse over: 10 hr, Route: IV, Dosing Weight 81.6 kg, Total Volume: 1,000, Priority: STAT, Start date: 05/18/19 20:07:00 [employer], Duration: 30 day, Stop date: 06/17/19 20:06:00 [employer], 1.92, m2, 0 tolvaptan 2019- No Notes: Memori a -31 Same as: l 20:03: Samsca Master 00 Protonix No Notes: Memoria -31 Tablet l 15:00: should not Master 00 be chewed or crushed. (Same as: Protonix) POLYETHYLEN No Notes: [place] E GLYCOL 05-18 Dissolve l 3350 15:00: in 8 oz of Master 00 water or juice. (Same as: Miralax) Water 1000 No 1,000 ml, Me moria MG/ML 05-18 Rate: 50 l Injectable 14:09: ml/hr, Fabi nn Solution 00 Infuse over: 21.7 hr, Route: IV, Dosing Weight 81.6 kg, Total Volume: 1,085.5, Start date: 05/18/19 8:09:00 [employer], Duration: 30 day, Stop date: 06/17/19 8:08:00 [employer], For IMU and ICU use only. See Order Comments!! , 1.92, m2, 0 Thyroxine 2019- No Notes: Memori a 1-31 Take 1 l 12:30: hour Master 00 before or 2 hours after meal; Enteral feeds may interefere with the absorption of this medication .(Same as:Levothr oid, Synthroid) carvedilol 2019- No Notes: Memor ia - Give with l 10:00: food. [place] 00 (Same As: Coreg) lansoprazol No Notes: [place] e 05-18 Take 1 l 03:00: hour [place] 00 before or 2 hours after meal; Expires in 14 days. Shake well before use. (Same as:Sera alcaraz) Compound ed Product - formulatio n not commercial ly available* * Saline No Notes: Memoria Flush 0.9% 05-18 Same as: l 03:00: BD Master 00 Posiflush Sterile Seroquel No Notes: Memoria 05-18 (Same as: l 03:00: SEROquel) Master 00 Docusate No Notes: Memoria 05-17 (Same as: l 23:00: Colace) sodium No Notes: Memoria bicarbonate 05-17 (sodium l 8.4% 22:04: bicarb Master 8.4% (1 mEq/ml) 50 ml VL) carvedilol No Notes: Memor ia 05-17 Give with l 22:01: food. [place] 00 (Same As: Coreg) Water 1000 No 1,000 ml, Me moria MG/ML 05-17 Rate: 35 l Injectable 18:01: ml/hr, Fabi nn Solution 00 Infuse over: 31 hr, Route: IV, Dosing Weight 81.6 kg, Total Volume: 1,085.5, Start date: 05/17/19 12:01:00 [employer], Duration: 30 day, Stop date: 06/16/19 12:00:00 [employer], For IMU and ICU use only. See Order Comments!! , 1.92, m2, 0 Bisacodyl No Notes: Memori a 30 (Same As: l 18:01: Dulcolax, Master Bisco-Lax) DDAVP No Notes: Memoria -30 (Same As: l 18:00: DDAVP) [place] MEDICATION WASTE Product Size: 4 microgram Product Wasted: ___ microgram Enoxaparin No Notes: Memor ia -30 (Same as: l 17:00: Lovenox) [place] Saline No Notes: Memoria Flush 0.9% 1-30 Same as: l 16:56: BD Master 00 Posiflush Sterile Potassium 2019-0 No Notes: Memori a Chloride 1-30 (Same as: l 16:56: KCL) Master Infuse no faster than 10 mEq/hr if given peripheral ly. sodium 2019- No Notes: Memoria phosphate 1-30 Infuse l 16:56: over 4 Master 00 hour. Do not infuse phosphorou s concurrent ly in the same line as TPN or IVF that contains calcium. For double lumen central lines, phosphorou s may be infused in a separate lumen from TPN. potassium 2019-0 No Notes: Memori a phosphate 1-30 (Same as: l 16:56: K Masetr 00 Phosphate. ) Do not infuse phosphorou s concurrent ly in the same line as TPN or IVF that contains calcium. For double lumen central lines, phosphorou s may be infused in a separate lumen from TPN. 1 mMol phoshate has 1.47 mEq potassium Infuse over 4 hours potassium No Notes: Memori a phosphate-s 1-30 (Same as: l odium 16:56: Phos-NaK) [place] phosphate 00 Each 1.5 250 mg-280 gm pkt has mg-160 mg 250mg oral powder phosphorou for s. Mix reconstitut w/2.5oz ion water and stir. Magnesium No Notes: Memori a Sulfate 05-17 WASTE: F/P l 16:56: - Sink; E Master 00 - Municipal Trash Bin Magnesium No Notes: Memori a Oxide 1-30 (Same as: l 16:56: Mag-Ox [place] 00 400) Magnesium oxide 797xi=122d g elemental magnesium Dose=____m g magnesium oxide (___mg elemental magnesium) Calcium No Notes: Memoria Gluconate 30 WASTE: F/P l 16:56: - Sink; E Master - Municipal Trash Bin Calcium No Notes: Memoria Carbonate 1-30 (Same As: l 500 MG 16:56: Tums) Master Chewable 00 Calcium Tablet Carbonate 500 mg = 200 mg elemental calcium Dose = mg calcium carbonate ( mg elemental calcium) pantoprazol 2018-04 Yes 40 mg = 1 M emoria e 40 MG 2-24 tab, PO, l Enteric 16:19: Daily, # [place] Coated 00 30 tab, 0 Tablet Refill(s), [Protonix] Pharmacy: [facility][id number] lidocaine 2018-04 No Route: IV, Me moria (ANES) 2-23 Drug form: l 22:27: INJ, ONCE, [place] 00 Stop date: 04/09/19 16:27:00 [employer] propofol 2018-04 No Route: IV, Mem oria (ANES) 10 2-23 Drug form: l mg 22:05: INJ, Start Master 00 date: 04/09/19 16:05:00 [employer], Stop date: 04/09/19 17:05:00 [employer] Lactated 2018-04 No Route: IV, Mem oria Ringers 2-23 Total l Injection 21:58: Volume: Fabi nn IV (ANES) 00 1,000, 1000 mL Start date: 04/09/19 15:58:00 [employer], Stop date: 04/09/19 16:58:00 [employer] Lumason 2018-04 No Notes: Memoria intravenous 2-23 (Same as: l injection 18:39: Lumason) Herm ruddy 00 Administer as an IV bolus; do not administer intra-ibeth rially. Follow each injection with an intravenou s flush of 5 mL of NS. [place] Enema 2018-04 No 12 years, Memoria 2-23 Pediatric l 17:55: Dosing, 0 [place] 00 Thyroxine 2018-04 No Notes: Memori a 2-23 Take 1 l 12:30: hour Master 00 before or 2 hours after meal; Enteral feeds may interefere with the absorption of this medication .(Same as:Levothr oid, Synthroid) Sodium 2018-04 No 1 gm, 1 Memoria Chloride 2-23 tab, l 1000 MG 06:00: Route: [place] Oral Tablet 00 PEG, Drug form: TAB, Q8H, Dosing Weight 81.818, kg, Start date: 04/09/19 0:00:00 [employer], Duration: 30 day, Stop date: 05/08/19 16:00:00 [employer], 0 Coreg 2018-04 No Notes: Memoria 2-23 Give with l 03:00: food. Master 00 (Same As: Coreg) Lactulose 2018-04 No Notes: Memori a 667 MG/ML 2-23 (Same l Oral 03:00: as:Chronul Master Solution 00 ac) Sodium 2018-04 No 1,000 mL, Memori a Chloride 2-23 Rate: 75 l 0.9% IV 02:19: ml/hr, [place] 1,000 mL 00 Infuse over: 13.3 hr, Route: IV, Dosing Weight 81.818 kg, Total Volume: 1,000, Start date: 04/08/19 20:19:00 [employer], Duration: 30 day, Stop date: 05/08/19 20:18:00 [employer], 2.02, m2, 0 Dextrose 2018-04 No 12.5 gm, Memor ia 50% Syringe 2-23 25 mL, l (D50W) 02:18: Route: Master 00 IVP, Drug Form: INJ, Dosing Weight 81.818, kg, PRN, PRN Blood Glucose Results, Start date: 04/08/19 20:18:00 [employer], Duration: 30 day, Stop date: 05/08/19 20:17:00 [employer], 0 Glucagon 2018-04 No 1 mg, Memoria 2-23 Route: IM, l 02:18: Drug form: [place] 00 PDR/INJ, PRN, Dosing Weight 81.818, kg, PRN Blood Glucose Results, Start date: 04/08/19 20:18:00 [employer], Duration: 30 day, Stop date: 05/08/19 20:17:00 [employer], 0 Ondansetron 2018-04 No Notes: [place] 2-23 (Same as: l 02:18: Zofran) MEDICATION WASTE Product Size: 4 mg Product Wasted: ___ mg Acetaminoph 2018-04 No Notes: Do M emoria en 2-23 not exceed l 02:18: 4 gm/day. [place] 00 (Same as: Tylenol) pantoprazol 2018-04 No Notes: For Memoria e 2-23 IV push l 02:18: reconstitu te with 10 ml 0.9% sodium chloride and push over 2 minutes. (Same as: Protonix) Omnipaque 2018-04 No Notes: Memori a 300 2-22 (Same l injectable 22:13: as:Omnipaq H ermann solution 00 ue 300). WASTE: F/P - Black; E - Municipal Trash Bin Saline 2018-04 No Notes: Memoria Flush 0.9% 2-22 (Same as: l 20:55: BD [place] 00 Posiflush) carvedilol 2018-04 Yes 3.125 mg = M emoria 3.125 mg 2-20 1 tab, l oral tablet 19:31: PEG, Q12H, Master 00 0 Refill(s) levothyroxi 2018-04 Yes 50 Memori a ne 50 mcg 2-20 microgram l (0.05 mg) 19:31: = 1 tab, Herm ruddy oral tablet 00 PEG, Q630AM, 0 Refill(s) Warfarin 2018-04 No 9 mg, PO, [place] 2-18 Daily, 0 l 16:39: Refill(s), [place] 00 [facility] [id number] carvedilol 2018-04 No PO, 0 Memori a 2-18 Refill(s) l 15:55: [place] 00 carvedilol 2018-04 No 6.25 mg = Me moria 6.25 mg 2-18 1 tab, PO, l oral tablet 15:55: Q12H, # 60 Master 00 tab, 0 Refill(s), [facility] [id number] levothyroxi 2018-04 No See Memori a ne 75 mcg 2-18 Instructio l (0.075 mg) 15:55: ns, 1 tab, H ermann oral tablet 00 PEG, Tuesday, Tuesday and Tuesday (once a day), 0 Refill(s), [facility] [id number] meloxicam 2018-04 Yes 15 mg = 1 Mem oria 15 mg oral 2-18 tab, PO, l tablet 15:55: Daily, # [place] 00 30 tab, 0 Refill(s) Bisacodyl 2018-04 No Notes: Memori a 2-18 (Same As: l 13:47: Dulcolax, [place] 00 Bisco-Lax) Sodium 2018-04 No 1 gm, 1 Memoria Chloride 2-17 tab, l 1000 MG 22:00: Route: GT, Herm ruddy Oral Tablet 00 Drug form: TAB, Q8H, Dosing Weight 79.1, kg, Start date: 04/03/19 16:00:00 [employer], Duration: 30 day, Stop date: 05/03/19 8:00:00 [employer], 0 Miralax 2018-04 No Notes: Memoria 2-17 Dissolve l 15:46: in 8 oz of [place] 00 water or juice. (Same as: Miralax) Beneprotein 2018-04 No 1 pkt, [place] 7 gm pkt 2-17 Route: PO, l 13:30: Drug Form: Master 00 PWDR, Dosing Weight 79.1, kg, BID-Before Meals, Start date: 04/03/19 7:30:00 [employer], Duration: 30 day, Stop date: 05/02/19 16:30:00 [employer] NS (Bolus) 2018-04 No 500 mL, [place] IV 2-17 500 ml/hr, l 10:11: Infuse Master 00 Over: 1 hr, Route: IV, 500, Drug form: INJ, ONCE, Priority: STAT, Dosing Weight 79.1 kg, Start date: 04/03/19 4:11:00 [employer], Stop date: 04/03/19 4:11:00 [employer], 0 Sodium 2018- No 2 gm, 2 Memoria Chloride 2-17 tab, l 1000 MG 06:00: Route: GT, Herm ruddy Oral Tablet 00 Drug form: TAB, Q8H, Dosing Weight 79.1, kg, Start date: 04/03/19 0:00:00 [employer], Duration: 30 day, Stop date: 05/02/19 16:00:00 [employer], 0 Beneprotein 2018-04 No Notes: [place] 7 gm pkt 2-16 (Same as: l 23:15: Beneprotei Master 00 n) Beneprotein 2018-04 No Notes: [place] 7 gm pkt 2-16 (Same as: l 22:30: Beneprotei [place] 00 n) Albuterol 2018-04 No Notes: Memori a 0.833 MG/ML -16 (Same as: l :49: Duoneb) Master Ipratropium 00 [place] 0.167 MG/ML Inhalant Solution [DuoNeb] Isolyte S 2018-04 No Notes: Memori a PH-7.4 2-16 (Same as: l (Bolus) IV 10:10: Isolyte S He rmann 00 PH7.4, Normosol-R PH 7.4, Plasma-Lyt e A ) sterile 2018-04 No 20 mL, Memoria water 2-15 Route: l 16:59: MISC, Drug [place] 00 Form: INJ, Bedtime, PRN Other -See Comment, Start date: 04/01/19 10:59:00 [employer], Duration: 30 day, Stop date: 05/01/19 10:58:00 [employer], 0 Sodium 2018-04 No 3 gm, 3 Memoria Chloride 2-15 tab, l 1000 MG 15:49: Route: GT, Herm ruddy Oral Tablet 00 Drug form: TAB, Q8H, Dosing Weight 79.1, kg, Priority: NOW, Start date: 04/01/19 9:49:00 [employer], Duration: 30 day, Stop date: 05/01/19 8:00:00 [employer], 0 Zyprexa 2018-04 No Notes: Memoria 2-15 (Same As: l 15:42: ZyPREXA Master 00 IM). Reconstitu te with 2.1 ml sterile water for injection; use within 1 hour after reconstitu tion. For IM use only; do not administer IV or SUB-Q. Zyprexa 2018-04 No 10 mg, Memoria 2-15 Route: IM, l 15:40: Drug form: [place] 00 INJ, BID, Dosing Weight 79.1, kg, PRN Agitation, Start date: 04/01/19 9:40:00 [employer], Duration: 30 day, Stop date: 05/01/19 9:39:00 [employer] Zyprexa 2018-04 No Notes: Memoria 2-15 (Same as: l 00:07: ZyPREXA) [place] 00 ZyPREXA 2018-04 No Notes: Memoria 2-15 (Same as: l 00:07: ZyPREXA) Master 00 Water 1000 2018-04 No 914.5 mL, Me moria MG/ML 2-14 Rate: 50 l Injectable 06:03: ml/hr, Fabi nn Solution 00 Infuse over: 20 hr, Route: IV, Dosing Weight 79.1 kg, Total Volume: 1,000, Start date: 03/31/19 0:03:00 [employer], Duration: 30 day, Stop date: 04/30/19 0:02:00 [employer], For IMU and ICU use only. See Order Comments!! , 1.99, m2, 0 Seroquel 2018-04 No Notes: Memoria 2-13 (Same as: l 22:23: SEROquel) Master 00 Sodium 2018-04 No 3 gm, 3 Memoria Chloride 2-13 tab, l 1000 MG 18:30: Route: PO, Herm ruddy Oral Tablet 00 Drug form: TAB, Q8H-05, Dosing Weight 79.1, kg, Start date: 03/30/19 12:30:00 [employer], Duration: 30 day, Stop date: 04/29/19 5:00:00 [employer], 0 DDAVP 2018-04 No Notes: Memoria 2-13 (Same As: l 12:00: DDAVP) Master 00 MEDICATION WASTE Product Size: 4 microgram Product Wasted: ___ microgram Water 1000 2018-04 No 914.5 mL, Me moria MG/ML - Rate: 50 l Injectable 10:07: ml/hr, Fabi nn Solution 00 Infuse over: 20 hr, Route: IV, Dosing Weight 79.1 kg, Total Volume: 1,000, Start date: 03/30/19 4:07:00 [employer], Duration: 30 day, Stop date: 04/29/19 4:06:00 [employer], For IMU and ICU use only. See Order Comments!! , 1.99, m2, 0 Hydralazine 2018-04 No Notes: [place] 2-12 (Same as: l 22:23: Apresoline [place] 00 ) Push over 5 minutes Labetalol 2018-04 No 10 mg, 2 [place] 2-12 mL, Route: l 22:23: IVP, Drug Master 00 form: INJ, Q15Min, Dosing Weight 79.1, kg, PRN Elevated BP, Start date: 03/29/19 16:23:00 [employer], Duration: 30 day, Stop date: 04/28/19 16:22:00 [employer], 0 heparin 2018-04 No Notes: Memoria sodium, 2-12 porcine l porcine 22:00: heparin Master 2500 UNT/ML 00 Injectable Solution Dextrose 5% 2018-04 No 1,000 mL, M emoria in Water IV 2-12 Rate: 50 l 1,000 mL 16:12: ml/hr, Master 00 Infuse over: 20 hr, Route: IV, Dosing Weight 79.1 kg, Total Volume: 1,000, Start date: 03/29/19 10:12:00 [employer], Duration: 30 day, Stop date: 04/28/19 10:11:00 [employer], 1.99, m2, 0 DDAVP 2018-04 No Notes: Memoria 2-12 (Same As: l 16:00: DDAVP) Master MEDICATION WASTE Product Size: 4 microgram Product Wasted: ___ microgram carvedilol 2018-04 No Notes: Memor ia 2-12 Give with l 15:00: food. [place] 00 (Same As: Coreg) docusate 2018-04 No Notes: Memoria sodium 150 2-12 (Same as: l mg/15 mL 15:00: Colace) Qu[place] n oral liquid 00 Levetiracet 2018-04 No Notes: [place] am 2-12 Same as: l 15:00: Keppra Master sennosides, 2018-04 No Notes: [place] LONG-TERM 2-12 (Same as: l 15:00: Senokot) Master Docusate 2018-04 No Notes: Memoria 2-12 (Same as: l 15:00: Colace) [place] (Do Not Crush) Saline 2018-04 No Notes: Memoria Flush 0.9% 2-12 Same as: l 15:00: BD [place] Posiflush Sterile Thyroxine 2018-04 No Notes: Memori a 2-12 Take 1 l 12:30: hour [place] 00 before or 2 hours after meal; Enteral feeds may interefere with the absorption of this medication .(Same as:Levothr oid, Synthroid) Water 1000 2018-04 No 1,000 mL, Me moria MG/ML 2-12 Rate: 75 l Injectable 10:59: ml/hr, Fabi nn Solution 00 Infuse over: 13.3 hr, Route: IV, Dosing Weight 79.1 kg, Total Volume: 1,000, Priority: STAT, Start date: 03/29/19 4:59:00 [employer], Duration: 30 day, Stop date: 04/28/19 4:58:00 [employer], For IMU and ICU use only. See Order Comments!! ... Potassium 2018-04 No Notes: Memori a Chloride 2-12 (Same as: l 06:19: KCL) Master 00 Infuse no faster than [...] 2-12 (Same as: l odium 06:19: Phos-NaK) Master phosphate 00 Each 1.5 250 mg-280 gm pkt has mg-160 mg 250mg oral powder phosphorou for s. Mix reconstitut w/2.5oz ion water and stir. Magnesium 2018-04 No Notes: Memori a Sulfate 2-12 WASTE: F/P l 06:19: - Sink; E [place] 00 - Municipal Trash Bin Magnesium 2018-04 No Notes: Memori a Oxide 2-12 (Same as: l 06:19: Mag-Ox [place] 00 400) Magnesium oxide [id number] g elemental magnesium Dose=____m g magnesium oxide (___mg elemental magnesium) Calcium 2018-04 No Notes: Memoria Gluconate 2-12 WASTE: F/P l 06:19: - Sink; E [place] 00 - Municipal Trash Bin Calcium 2018-04 No Notes: Memoria Carbonate 2-12 (Same As: l 500 MG 06:19: Tums) Master Chewable 00 Calcium Tablet Carbonate 500 mg = 200 mg elemental calcium Dose = mg calcium carbonate ( mg elemental calcium) Iohexol 2018-04 No 100 mL, Memoria 2-12 Route: l 05:23: IVP, Drug [place] 00 Form: SOLN, Dosing Weight 86.364, kg, ONCALL, STAT, Start date: 03/28/19 23:23:00 [employer], Duration: 1 doses or times, Dose = 2.2ml/kg, Max dose = 100ml -- "To be infused by Radiology Staff ONLY" niCARdipine 2018-04 No Notes: [place] 20 mg in NS 2-12 Same as: l 200 mL 04:14: Ally Thao (Titrate.) 00 Concentrat IV 20 mg ion: (0.1 mg/ 1 ml) Sodium 2018-04 No 1,000 mL, Memori a Chloride 05-30 Rate: 50 l 0.9% IV 04:05: ml/hr, [place] 1,000 mL 00 Infuse over: 20 hr, Route: IV, Dosing Weight 86.364 kg, Total Volume: 1,000, Start date: 03/28/19 22:05:00 [employer], Duration: 30 day, Stop date: 04/27/19 22:04:00 [employer], 2.08, m2, 0 Acetaminoph 2018-04 No Notes: Do M emoria en 2-12 not exceed l 04:05: 4 gm/day. Master 00 (Same as: Tylenol) Acetaminoph 2018-04 No Notes: [place] en 325 MG / 2-12 (Same as: l Hydrocodone 04:05: [place] Fabi nn Bitartrate 00 325/5) Do 5 MG Oral not exceed Tablet 4gm/day of acetaminop hen. Acetaminoph 2018-04 No Notes: Do M emoria en 325 MG / 2-12 not exceed l Hydrocodone 04:05: 4gm/day of [place] Bitartrate 00 acetaminop 10 MG Oral hen. Tablet (Same as: [place] 325/10) Morphine 2018-04 No Notes: Memoria 2-12 (Same l 04:05: as:MORPhin Master 00 e Sulfate) Bisacodyl 2018-04 No Notes: Memori a 2-12 (Same As: l 04:05: Dulcolax, Master 00 Bisco-Lax) Ondansetron 2018-04 No Notes: [place] 2-12 (Same as: l 04:05: Zofran) Master 00 MEDICATION WASTE Product Size: 4 mg Product Wasted: ___ mg Benadryl 2018-04 No Notes: Memoria 2-12 (Same as: l 04:05: Benadryl) [place] 00 phenol 2018-04 No Notes: Memoria 2-12 Chlorasept l 04:05: ic [place] (Same as: Chlorasept ic, Sore Throat [place]) WASTE: F/P - Black; E - Municipal Trash Bin Melatonin 2018-04 No Notes: [place] MG Extended 2-12 (Same as: l Release 04:05: Melatonin) Herm ruddy Tablet 00 Saline 2018-04 No Notes: Memoria Flush 0.9% -12 Same as: l 04:05: BD Master 00 Posiflush Sterile Dextrose 2018-04 No 25 gm, 50 [place] 50% Syringe 2-12 mL, Route: l (D50W) 04:05: IVP, Drug [place] 00 Form: INJ, Dosing Weight 86.364, kg, PRN, PRN Abnormal Lab Result, Start date: 03/28/19 22:05:00 [employer], Duration: 30 day, Stop date: 04/27/19 22:04:00 [employer], 0 Regular 2018-04 No Notes: Memoria Insulin, [...] Weight 90.9, kg, Start date: 03/09/19 18:00:00 [employer], Stop date: 04/13/19 12:00:00 [employer], 0 Melatonin 2018-04 Yes 3 mg = 1 Me moria MG Extended -22 tab, PO, l Release 19:44: Bedtime, Quoc n Tablet 00 PRN Sleep, 0 Refill(s) Melatonin 2018-04 No 3 mg, 1 Mem oria MG Extended -22 tab, l Release 19:43: Route: PO, Herm ruddy Tablet 00 Dosing Weight 90.9, kg, Bedtime, PRN Sleep, Start date: 03/09/19 13:43:00 [employer], Duration: 30 day, Stop date: 04/08/19 13:42:00 [employer] Sodium 2018-04 No 3 gm, Memoria Chloride 05-09 Route: l 1000 MG 19:00: PEG, TID, Fabi nn Oral Tablet 00 Dosing Weight 90.9, kg, Start date: 03/09/19 13:00:00 [employer], Duration: 30 day, Stop date: 04/08/19 9:00:00 [employer] Imodium A-D 2018-04 Yes 1 mg, PO, M emoria 05-09 Q6H, PRN l 18:50: Diarrhea, Master 00 0 Refill(s) Lanolin 2018-04 No Notes: [...] tab, l oral tablet 17:06: PEG, Q12H, Master 00 0 Refill(s) Levetiracet 2018-04 Yes 500 mg = 5 Memoria am 100 1-22 mL, PEG, l MG/ML Oral 17:06: Q12H, 0 Herm ruddy Solution 00 Refill(s) [Keppra] levothyroxi 2018-04 Yes 50 Memori a ne 50 mcg -22 microgram l (0.05 mg) 17:06: = 1 tab, Herm ruddy oral tablet 00 PEG, Q630AM, 0 Refill(s) LORazepam 2018-04 Yes 0.5 mg = 1 Me moria 0.5 mg oral -22 tab, GT, l tablet 14:27: Q6H, [place] 00 NEEDED FOR ANXIETY, 0 Refill(s) Bisacodyl 2018-04 No 10 mg = 1 Mem oria 10 MG 05-09 supp, MD, l Rectal 14:27: Q24H, Master Suppository 00 NEEDED, 0 [Dulcolax] Refill(s) heparin 2018-04 No 2,500 unit [place] sodium, 05-09 = 1 mL, l porcine 14:27: SUB-Q, [place] 2500 UNT/ML 00 Q8H, DVT Injectable PROPHYLAXI Solution S, # 10 vial, 0 Refill(s) Albuterol 2018-04 No 3 mL, NEB, Me moria 0.833 MG/ML 05-09 Q4H, l / 14:27: NEEDED, 0 [place] Ipratropium 00 Refill(s) [place] 0.167 MG/ML Inhalant Solution [DuoNeb] Lactulose 2018-04 Yes 20 gm = 30 Me moria 667 MG/ML - mL, GT, l Oral 14:27: Q12H, 0 Master Solution 00 Refill(s) omeprazole 2018-04 Yes 40 mg = 2 Me moria 20 mg oral 05-09 cap, GT, l delayed 14:27: Daily, 0 Quoc n release 00 Refill(s) capsule Senna 8.6 2018-04 Yes 8.6 mg = 1 Me moria mg oral 22 tab, GT, l tablet 14:27: BID, 0 Master 00 Refill(s) Acetaminoph 2018-04 No 650 mg = 2 Memoria en 325 MG 05-09 tab, PO, l Oral Tablet 14:27: Q6H, [...] e -22 Take 1 l 06:25: hour [place] 00 before or 2 hours after meal; Expires in 14 days. Shake well before use. (Same as:Prevaci d) Compound ed Product - formulatio n not commercial ly available* * Melatonin 2018-04 No Notes: Memori a -22 (Same as: l 06:24: Melatonin) [place] 00 heparin 2018-04 No Notes: Memoria sodium, 1-21 porcine l porcine 05:55: heparin Master 2500 UNT/ML 00 Injectable Solution Docusate 2018-04 No Notes: Memoria Sodium 50 1-20 (Same as l MG / 15:00: Senokot-S) Master sennosides, 00 Equiv. to LONG-TERM 8.6 MG [place]-Colac Oral Tablet e. Levetiracet 2018-04 No Notes: [place] am 100 1-20 Same as: l MG/ML Oral 15:00: Keppra Fabi nn Solution 00 [Keppra] carvedilol 2018-04 No Notes: Memor ia 1-20 Give with l 15:00: food. [place] 00 (Same As: Coreg) Beneprotein 2018-04 No Notes: [place] 7 gm pkt -20 (Same as: l 13:30: Beneprotei [place] 00 n) Thyroxine 2018-04 No Notes: Memori [...] Memoria 1-20 (Same as: l 03:00: Colace) [place] 00 (Do Not Crush) sennosides, 2018-04 No Notes: [place] LONG-TERM 1-20 (Same as: l 03:00: Senokot) [place] 00 Saline 2018-04 No Notes: Memoria Flush 0.9% 1-20 (Same as: l 03:00: BD [place] 00 Posiflush) Sodium 2018-04 No 1,000 mL, Memori a Chloride 1-20 Rate: 50 l 0.9% IV 02:28: ml/hr, Master 1,000 mL 00 Infuse over: 20 hr, Route: IV, Dosing Weight 90.909 kg, Total Volume: 1,000, Start date: 03/06/19 20:28:00 [employer], Duration: 30 day, Stop date: 04/05/19 20:27:00 [employer], 2.1, m2, 0 Acetaminoph 2018-04 No Notes: Do M emoria en 05-07 not exceed l 02:28: 4 gm/day. Master 00 (Same as: Tylenol) Bisacodyl 2018-04 No Notes: Memori a 1-20 (Same As: l 02:28: Dulcolax, [place] 00 Bisco-Lax) Ondansetron 2018-04 No Notes: [place] 1-20 (Same as: l 02:28: Zofran) [place] 00 MEDICATION WASTE Product Size: 4 mg Product Wasted: ___ mg Saline 2018-04 No Notes: Memoria Flush 0.9% 1-20 (Same as: l 02:28: BD Master 00 Posiflush) Dextrose 2018-04 No 25 gm, 50 [place] 50% Syringe 1-20 mL, Route: l (D50W) 02:28: IVP, Drug [place] 00 Form: INJ, Dosing Weight 90.909, kg, PRN, PRN Abnormal Lab Result, Start date: 03/06/19 20:28:00 [employer], Duration: 30 day, Stop date: 04/05/19 20:27:00 [employer], 0 Regular 2018-04 No Notes: Memoria Insulin, 1-20 (Same as: l Human 100 02:28: Humulin R) He rmann UNT/ML 00 Roll in Injectable palms of Solution hands gently; Do not shake vigorously . WASTE: F/P - Black; E - Municipal Trash Bin Stable for 31 days at room temperatur e Expires in days from ____Date Acetaminoph 2018-04 Yes 100.4 F, M emoria en 13 0 l 21:13: Refill(s) [place] 00 carvedilol 2018-04 Yes 3.125 mg = M emoria 3.125 mg -13 1 tab, GT, l oral tablet 21:13: Q12H, 0 Her addison 00 Refill(s) cefepime 2018-04 Yes 2 gm, IVP, Mem oria 13 [id number], 0 l 21:13: Refill(s) [place] 00 heparin 2018-04 No SUB-Q, Memoria sodium, 13 Q8H, 0 l porcine 21:13: Refill(s) Fabi nn 2500 UNT/ML 00 Injectable Solution Levetiracet 2018-04 Yes GT, Q12H, M emoria am 500 MG 13 0 l Oral Tablet 21:13: Refill(s) H ermann [Keppra] 00 levothyroxi 2018-04 Yes 50 Memori a ne 50 mcg -13 microgram l (0.05 mg) 21:13: = 1 tab, Herm ruddy oral tablet 00 PEG, Q630AM, 0 Refill(s) QUEtiapine 2018-04 Yes 50 mg = 1 Me moria 50 mg oral 13 tab, PEG, l tablet 21:13: Q12H, 0 Master 00 Refill(s) senna 8.8 2018-04 Yes 8.8 mg = 5 Me moria mg/5 mL 1-13 mL, [place], l oral syrup 21:13: BID, 0 Fabi nn 00 Refill(s) Metronidazo 2018-04 Yes 500 mg = 1 Memoria le 500 MG 13 tab, PEG, l Oral Tablet 21:13: ABXQ8H, 0 H ermann 00 Refill(s) lansoprazol 2018-04 Yes PEG, Memori a e -13 BID-Before l 21:13: Meals, 0 Master 00 Refill(s) Miralax 2018-04 No Notes: Memoria -13 Dissolve l 15:00: in 8 oz of [place] 00 water or juice. (Same as: Miralax) Levetiracet 2018-04 No Notes: [place] am 500 MG 04-30 Same as: l Oral Tablet 03:00: Keppra Herm ruddy [Keppra] 00 Dextrose 2018-04 No 12.5 gm, Memor ia 50% Syringe -13 25 mL, l 02:16: Route: [place] 00 IVP, Drug Form: INJ, Dosing Weight 87.9, kg, PRN, PRN Blood Glucose Results, Start date: 02/27/19 20:16:00 [employer], Duration: 30 day, Stop date: 03/29/19 20:15:00 [employer], 0 Glucagon 2018-04 No 1 mg, Memoria 04-30 Route: IM, l 02:16: Drug form: Master 00 PDR/INJ, PRN, Dosing Weight 87.9, kg, PRN Blood Glucose Results, Start date: 02/27/19 20:16:00 [employer], Duration: 30 day, Stop date: 03/29/19 20:15:00 [employer], 0 Insulin 2018-04 No Notes: Memoria Lispro 04-30 (Same as: l 02:16: Humalog) Roll in palms of hands gently; Do not shake vigorously . WASTE: F/P - Black; E - [employer] Trash Bin Stable for 28 days at room temperatur e. Expires in days from ____Date Flagyl 2018-04 No Notes: Memoria -12 (Same as: l 02:00: Flagyl) Master 00 Take with food/ avoid alcohol NS (Bolus) 2018-04 No 500 mL, [place] IV 1-10 500 ml/hr, l 13:05: Infuse Over: 1 hr, Route: IV, 500, Drug form: INJ, ONCE, Priority: STAT, Dosing Weight 87.9 kg, Start date: 02/25/19 7:05:00 [employer], Stop date: 02/25/19 7:05:00 [employer], 0 Seroquel 2018-04 No Notes: Memoria 1-10 (Same as: l 03:00: SEROquel) Master 00 Zofran 2018-04 No Notes: Memoria - (Same as: l 23:11: Zofran) MEDICATION WASTE Product Size: 4 mg Product Wasted: ___ mg Thyroxine 2018-04 No 50 Memoria 1-09 microgram, l 12:30: Route: PO, Drug form: TAB, Q630AM, Dosing Weight 87.9, kg, Start date: 02/24/19 6:30:00 [employer], Duration: 30 day, Stop date: 03/25/19 6:30:00 [employer] pantoprazol 2018-04 No 40 mg, [place] e 04-26 Route: l 03:00: PEG, Q12H, Dosing Weight 87.9, kg, Start date: 02/23/19 21:00:00 [employer], Duration: 30 day, Stop date: 03/25/19 9:00:00 [employer] cefepime 2018-04 No Notes: Memoria 04-26 (Same as: l 02:00: Maxipime) [place] 00 MEDICATION WASTE Product Size: 2000 mg Product Wasted: ___ mg normal 2018-04 No 1,000 mL, Memori a saline 0.9% 04-26 Rate: l IV 1,000 mL 00:49: 1,000 Fabi nn 00 ml/hr, Infuse over: 1 hr, Route: IV, Dosing Weight 87.9 kg, Total Volume: 1,000, Start date: 02/23/19 18:49:00 [employer], Duration: 1 doses or times, Stop date: 02/23/19 19:48:00 [employer], 2.05, m2, 0 normal 2018-04 No 1,000 mL, Memori a saline 0.9% 04-25 Rate: l IV 1,000 mL 23:09: 1,000 Fabi nn 00 ml/hr, Infuse over: 1 hr, Route: IV, Dosing Weight 87.9 kg, Total Volume: 1,000, Start date: 02/23/19 17:09:00 [employer], Duration: 1 doses or times, Stop date: 02/23/19 18:08:00 [employer], 2.05, m2, 0 Prevacid 2018-04 No Notes: Memoria 04-25 Take 1 l 22:30: hour [place] 00 before or 2 hours after meal; Expires in 14 days. Shake well before use. (Same as:Prevaci d) Compound ed Product - formulatio n not commercial ly available* * Beneprotein 2018-04 No Notes: [place]ito [place] 7 gm pkt 04-25 (Same as: l 22:30: Beneprotei 00 n) sugammadex 2018-04 No Notes: Memor ia 04-25 (Same as: l 20:19: [place]) Flagyl 2018-04 No Notes: Memoria 04-25 (Same as: l 18:00: Flagyl) Avoid alcohol. ondansetron 2018-04 No Route: IV, Memoria (ANES) 04-25 Drug form: l 15:15: INJ, ONCE, Stop date: 02/23/19 9:15:00 [employer] ePHEDrine 2018-04 No Route: IV, Me moria (ANES) 04-25 Drug form: l 15:06: INJ, ONCE, Stop date: 02/23/19 9:06:00 [employer] ANES 2018-04 No 0.625 mg, Memoria Enalaprilat 04-25 Route: l 14:41: IVP, Master 00 Q5Min, Dosing Weight 87.9, kg, PRN Elevated BP, Start date: 02/23/19 8:41:00 [employer], Duration: 4 doses or times, Stop date: Limited # of times Hydralazine 2018-04 No 10 mg, [place] 04-25 Route: l 14:41: IVP, [place] 00 Q20Min, Dosing Weight 87.9, kg, PRN Elevated BP, Start date: 02/23/19 8:41:00 [employer], Duration: 2 doses or times, Stop date: Limited # of times esmolol 2018-04 No 10 mg, Memoria 04-25 Route: l 14:41: IVP, [place] 00 Q5Min, Dosing Weight 87.9, kg, PRN Other -See Comment, Start date: 02/23/19 8:41:00 [employer], Duration: 5 doses or times, Stop date: Limited # of times Labetalol 2018-04 No 10 mg, Memori a 04-25 Route: l 14:41: IVP, Master 00 Q5Min, Dosing Weight 87.9, kg, PRN Elevated BP, Start date: 02/23/19 8:41:00 [employer], Duration: 5 doses or times, Stop date: Limited # of times Acetaminoph 2018-04 No 1,000 mg, M emoria en 04-25 Route: PO, l 14:41: Drug form: [place] 00 TAB, ONCE, Dosing Weight 87.9, kg, PRN Pain Score 1-3, Start date: 02/23/19 8:41:00 [employer] Oxycodone 2018-04 No 5 mg, Memoria 04-25 Route: NG, l 14:41: Drug form: Master 00 LIQ, Q4H, Dosing Weight 87.9, kg, PRN Pain Score 4-6, Start date: 02/23/19 8:41:00 [employer], Duration: 30 day, Stop date: 03/25/19 8:40:00 [employer] Flumazenil 2018-04 No 0.2 mg, Rito [place] 04-25 Route: l 14:41: IVP, PRN, Dosing Weight 87.9, kg, PRN Benzodiaze pine Reversal, Initial dose, Start date: 02/23/19 8:41:00 [employer], Duration: 30 day, Stop date: 03/25/19 8:40:00 [employer] Naloxone 2018-04 No 0.4 mg, Memori a 04-25 Route: l 14:41: IVP, Master 00 Q2MIN, Dosing Weight 87.9, kg, PRN Narcotic Reversal, Start date: 02/23/19 8:41:00 [employer], Duration: 8 doses or times, Stop date: Limited # of times Ondansetron 2018-04 No 4 mg, Memor ia 04-25 Route: l 14:41: IVP, ONCE, Dosing Weight 87.9, kg, PRN Nausea & Vomiting, Start date: 02/23/19 8:41:00 [employer] propofol 2018-04 No Route: IV, Mem oria (ANES) 04-25 Drug form: l 14:35: INJ, ONCE, Stop date: 02/23/19 8:35:00 [employer] rocuronium 2018-04 No Route: IV, M emoria (ANES) 04-25 Drug form: l 14:35: INJ, ONCE, Stop date: 02/23/19 8:35:00 [employer] fentaNYL 2018-04 No Route: IV, Mem oria (ANES) 04-25 Drug form: l 14:35: INJ, ONCE, Stop date: 02/23/19 8:35:00 [employer] phenylephri 2018-04 No Route: IV, Memoria ne (ANES) 04-25 Drug form: l 14:35: INJ, ONCE, [place] Stop date: 02/23/19 8:35:00 [employer] ceFAZolin 2018-04 No Route: IV, Me galindoa (ANES) 04-25 Drug form: l 14:30: INJ, ONCE, Master 00 Stop date: 02/23/19 8:30:00 [employer] Adult 2018-04 No Notes: Memoria Parenteral 04-25 Must use l Nutrition 04:00: 1.2 micron He rmann Custom - 00 filter AND Peripheral Lipids (PPN not should not TPN) 2,160 be mL administer ed to patients who are allergic to soy, fish, egg or peanuts. Sodium 2018-04 No 1,000 mL, Memori a Chloride -07 500 ml/hr, l 0.9% 20:15: Infuse [place] (Bolus) IV 00 Over: 2 hr, Route: IV, 1,000, Drug form: INJ, ONCE, Priority: STAT, Dosing Weight 87.9 kg, Start date: 02/22/19 14:15:00 [employer], Stop date: 02/22/19 14:15:00 [employer], 0 Tylenol 2018-04 No Notes: Max Rito ir[place]a 04-24 acetaminop l 20:13: hen = 4000 [place] 00 mg/day (4 gm/day). (Same as: Tylenol) Thyroxine 2018-04 No Notes: Memori a - (Same as: l 16:30: Synthroid) Master 00 Reconstitu te with 5ml of NS. Final concentrat ion = 20 micrograms /ml. Use immediatel y after reconstitu tion and discard remaining solution. Zosyn 2018-04 No Notes: Memoria 1-07 (Same as: l 16:00: Zosyn) Master 00 Dosing based on Piperacill in component MEDICATION WASTE Product Size: 3375 mg Product Wasted: ___ mg Bisacodyl 2018-04 No Notes: Memori a -07 (Same As: l 09:59: Dulcolax, [place] 00 [place]-Lax) Adult 2018-04 No Notes: Memoria Parenteral 1-07 Must use l Nutrition 04:00: 1.2 micron [...] Weight 87.9, kg, Start date: 02/21/19 7:30:00 [employer], Duration: 30 day, Stop date: 03/22/19 7:30:00 [employer] Protonix 2018-04 No Notes: For Mem oria 04-23 IV push l 03:00: reconstitu [place] 00 te with 10 ml 0.9% sodium [...] NG tube Vimpat 2018-04 No Notes: Memoria 04-22 Same as: l 15:00: Vimpat [place] 00 Labetalol 2018-04 No 20 mg, 4 Rito [place] 1-05 mL, Route: l 07:35: IVP, Drug Master form: INJ, Q2H, Dosing Weight 87.9, kg, PRN Other -See Comment, Start date: 02/20/19 1:35:00 [employer], Duration: 30 day, Stop date: 03/22/19 1:34:00 [employer], 0 Vimpat 2018-04 No Notes: Memoria 04-22 Same as: l 00:04: Vimpat [place] 00 MEDICATION WASTE Product Size: 200 mg Product Wasted: ___ mg Fentanyl 2018-04 No Notes: Memoria 04-22 (Same as: l 00:04: Sublimaze) [place] 00 Preservat kemal free. Versed 2018-04 No Notes: Memoria 04-22 (Same as: l 00:04: Versed) [place] MEDICATION WASTE Product Size: 2 mg Product Wasted: ___ mg Vimpat 2018-04 No Notes: Memoria 04-21 Same as: l 03:00: Vimpat [place] 00 MEDICATION WASTE Product Size: 200 mg Product Wasted: ___ mg heparin 2018-04 No Notes: Memoria sodium, 04-20 porcine l porcine 22:00: heparin Master 2500 UNT/ML 00 Injectable Solution Vimpat + 2018-04 No Notes: Memoria Sodium 04-20 Same as: l Chloride 21:19: Vimpat [place] 0.9% IV 100 00 mL MEDICATION WASTE Product Size: 200 mg Product Wasted: 0 mg Vimpat 2018-04 No Notes: Memoria 04-20 Same as: l 20:52: Vimpat [place] 00 MEDICATION WASTE Product Size: 200 mg Product Wasted: 0 mg Labetalol 2018-04 No 20 mg, 4 Rito [place] 04-20 mL, Route: l 17:40: IVP, Drug form: INJ, Q15Min, Dosing Weight 87.9, kg, PRN Hypertensi on, Start date: 02/18/19 11:40:00 [employer], Duration: 3 doses or times, Stop date: Limited # of times, 0 Thyroxine 2018-04 No Notes: Memori a 04-20 (Same as: l 15:45: Synthroid) Master 00 Reconstitu te with 5ml of NS. Final concentrat ion = 20 micrograms /ml. Use immediatel y after reconstitu tion and discard remaining solution. Dexmedetomi 2018-04 No Notes: Use Memoria dine 04-20 the l 15:43: following Master 00 cdm for [id number]. Isolyte S 2018-04 No Notes: Memori a PH 7.4 1000 04-20 (Same as: l mL 14:45: Isolyte S [place] 00 PH7.4, Normosol-R PH 7.4, Plasma-Lyt e A ) normal 2018-04 No 1,000 mL, Memori a saline 0.9% - Rate: 50 l IV 1,000 mL 21:31: ml/hr, Herm ruddy 00 Infuse over: 20 hr, Route: IV, Dosing Weight 87.9 kg, Total Volume: 1,000, Start date: 02/17/19 16:31:00 CDT, Duration: 30 day, Stop date: 03/19/19 16:30:00 [employer], 2.05, m2, 0 normal 2018-04 No 2,000 mL, Memori a saline 0.9% 04-19 Rate: 50 l IV 2,000 mL 18:17: ml/hr, Herm ruddy 00 Infuse over: 40 hr, Route: IV, Dosing Weight 87.9 kg, Total Volume: 2,000, Start date: 02/17/19 13:17:00 CDT, Duration: 1 doses or times, Stop date: 02/18/19 13:16:00 [employer], 2.05, m2, 0 Ativan 2018-04 No Notes: Memoria - (Same as: l 17:15: Ativan) [place] 00 Morphine 2018-04 No Notes: Memoria - (Same l 16:58: as:MORPhin [place] 00 e Sulfate) Valproic 2018-04 No 1,500 mg, Rito [place] Acid 100 04-19 Route: IV, l MG/ML 13:41: ONCE, [place] Injectable 00 Dosing Solution Weight 89, kg, Start date: 02/17/19 8:41:00 CDT, Stop date: 02/17/19 8:41:00 CDT Valproic 2018-04 No 1,500 gm, Rito [place] Acid 100 04-19 Route: IV, l MG/ML 13:11: ONCE, Master Injectable 00 Dosing Solution Weight 89, kg, Priority: STAT, Start date: 02/17/19 8:11:00 CDT, Stop date: 02/17/19 8:11:00 CDT Labetalol 2018-04 No 10 mg, 2 [place] 1-02 mL, Route: l 13:10: IVP, Drug form: INJ, Q15Min, Dosing Weight 89, kg, PRN Hypertensi on, Start date: 02/17/19 8:10:00 CDT, Duration: 3 doses or times, Stop date: 03/17/19 0:00:00 [employer], 0 NS 1,000 mL 2018-04 No 1,000 mL, Nathalie emoria 04-19 Rate: 40 l 08:00: ml/hr, [place] 00 Infuse over: 25 hr, Route: IV, Dosing Weight 89 kg, Total Volume: 1,000, Start date: 02/17/19 3:00:00 CDT, Duration: 30 day, Stop date: 03/19/19 2:59:00 [employer], 2.06, m2, 0 NS (Bolus) 2018-04 No 500 mL, Rito [place] IV 04-19 500 ml/hr, l 07:47: Infuse Master 00 Over: 1 hr, Route: IV, 500, Drug form: INJ, ONCE, Priority: STAT, Dosing Weight 89 kg, Start date: 02/17/19 2:47:00 CDT, Stop date: 02/17/19 2:47:00 CDT, 0 NS 1,000 mL 2018-04 No 1,000 mL, Nathalie emoria 04-19 Rate: 100 l 07:47: ml/hr, Master 00 Infuse over: 10 hr, Route: IV, Dosing Weight 89 kg, Total Volume: 1,000, Start date: 02/17/19 2:47:00 CDT, Duration: 30 day, Stop date: 03/19/19 2:46:00 [employer], 2.06, m2, 0 Norepinephr 2018-04 No Notes: Not Memoria ine 04-19 for direct l 07:46: administra [place] 00 tion - DILUTE. Protect from light. (Same as:Levophe d). Administer by either central venous catheter or peripheral ly-inserte d central catheter (PICC) line. Lidocaine 2018-04 No Notes: Memori a Hydrochlori 04-19 (Same as: l de 0.02 03:53: Uro-Jet) [place] n MG/MG 00 Topical Gel Dexmedetomi 2018-04 No Notes: Use Memoria dine 04-18 the l 21:54: following Master 00 cdm for [id number]. heparin 2018-04 No Notes: Memoria sodium, 04-18 porcine l porcine 21:00: heparin [place] 2500 UNT/ML 00 Injectable Solution propofol 10 2018-04 No Notes: If M emoria mg/mL 04-18 Diprivan - l (Titrate.) 19:45: change Fabi nn IV 1,000 mg 00 bottle & tubing every 12 hr Per state nursing law propofol can only be given by a nurse if patient is intubated or being intubated (unless the nurse is a FIRE EXTINGUISHER REPAIRER). Same as: Diprivan Albuterol 2018-04 No Notes: SEE Me moria 0.83 MG/ML 04-18 RT l Inhalant 08:19: DOCUMENTAT Her addison Solution 00 ION (Same as: Proventil) Albuterol 2018-04 No Notes: Memori a 0.833 MG/ML 04-18 (Same as: l / 07:00: Duoneb) [place] Ipratropium 00 [place] 0.167 MG/ML Inhalant Solution [DuoNeb] Sodium 2018-04 No Notes: SEE Memor ia Chloride 3% 04-18 RT l inhalation 07:00: DOCUMENTAT H ermann solution 00 ION (Same as: Hypertonic Saline 3%, Inhalation ) Coreg 2018-04 No 3.125 mg, Memoria 04-18 Route: GT, l 02:00: Drug form: [place] 00 TAB, Q12H, Dosing Weight 89, kg, Start date: 02/15/19 21:00:00 CDT, Duration: 30 day, Stop date: 03/17/19 9:00:00 [employer] normal 2018-04 No 1,000 mL, Memori a saline 0.9% Rate: 50 l IV 1,000 mL 21:50: ml/hr, Herm ruddy Infuse over: 20 hr, Route: IV, Dosing Weight 89 kg, Total Volume: 1,000, Start date: 02/15/19 16:50:00 CDT, Duration: 30 day, Stop date: 03/17/19 16:49:00 [employer], 2.06, m2, 0 Versed 2018-04 No Notes: Memoria 0-31 (Same as: l 19:25: Versed) [place] MEDICATION WASTE Product Size: 2 mg Product Wasted: ___ mg Coreg 2018-04 No Notes: Memoria 0-31 Give with l 14:42: food. Master 00 (Same As: Coreg) Docusate 2018-04 No Notes: Memoria 0-31 (Same as: l 14:00: Colace) Master 00 sennosides, 2018-04 No Notes: Rito [place] LONG-TERM 0-31 (Same as: l 14:00: Senokot) [place] 00 Vitamin K1 2018-04 No Notes: Memor ia + Sodium 0-31 (Same as: l Chloride 14:00: Aqua-Mephy Her addison 0.9% IV 50 00 ton, mL Vitamin K) MEDICATION WASTE Product Size: 10 mg Product Wasted: ___ mg lansoprazol 2018-04 No Notes: Rito [place] e 0-31 Take 1 l 14:00: hour Master 00 before or 2 hours after meal; Expires in 14 days. Shake well before use. (Same as:Sera alcaraz) Compound ed Product - formulatio n not commercial ly available* * chlorhexidi 2018-04 No Notes: [place] ne 0-31 (Same As: l gluconate 14:00: Peridex) Herm ruddy 1.2 MG/ML 00 Mouthwash Thyroxine 2018-04 No Notes: Memori a 0-31 Take 1 l 11:30: hour [place] 00 before or 2 hours after meal; [...] Duration: 30 day, Stop date: 03/17/19 4:41:00 [employer], 2.06, m2, 0 Acetaminoph 2018-04 No Notes: Max Memoria en 0-31 acetaminop l 09:39: hen = [place] 00 4000mg/day (4 gm/day). (Same as: Tylenol) Dextrose 2018-04 No 12.5 gm, Memor ia 50% Syringe 0-31 25 mL, l 09:37: Route: [place] 00 IVP, Drug Form: INJ, Dosing Weight 89, kg, PRN, PRN Blood Glucose Results, Start date: 02/15/19 4:37:00 CDT, Duration: 30 day, Stop date: 03/17/19 3:36:00 [employer], 0 Glucagon 2018-04 No 1 mg, Memoria 0-31 Route: IM, l 09:37: Drug form: [place] 00 PDR/INJ, PRN, Dosing Weight 89, kg, PRN Blood Glucose Results, Start date: 02/15/19 4:37:00 CDT, Duration: 30 day, Stop date: 03/17/19 3:36:00 [employer], 0 Insulin 2018-04 No Notes: Memoria regular 0-31 (Same as: l 09:37: Humulin R) [place] 00 Roll in palms of hands gently; Do not shake vigorously . WASTE: F/P - Black; E - Municipal Trash Bin Stable for 31 days at room temperatur e Expires in days from ____Date Potassium 2018-04 No Notes: Memori a Chloride 0-31 (Same as: l 09:37: KCL) [place] 00 Infuse no faster than 10 mEq/hr if given peripheral ly. sodium 2018-04 No Notes: Memoria phosphate 0-31 Infuse l 09:37: over 4 [place] 00 hour. Do not infuse phosphorou s [...] 0-31 (Same as: l odium 09:37: Phos-NaK) [place] phosphate 00 Each 1.5 250 mg-280 gm pkt has mg-160 mg 250mg oral powder phosphorou for s. Mix reconstitut w/2.5oz ion water and stir. Magnesium 2018-04 No Notes: Memori a Sulfate 0-31 WASTE: F/P l 09:37: - Sink; E [place] 00 - Municipal Trash Bin Magnesium 2018-04 No Notes: Memori a Oxide 0-31 (Same as: l 09:37: Mag-Ox [place] 00 400) Magnesium oxide [id number] g elemental magnesium Dose=____m g magnesium oxide (___mg elemental magnesium) Calcium 2018-04 No Notes: Memoria Gluconate 0-31 WASTE: F/P l 09:37: - Sink; E [place] - Municipal Trash Bin Calcium 2018-04 No Notes: Memoria Carbonate 0-31 (Same As: l 500 MG 09:37: Tums) [place] Chewable 00 Calcium Tablet Carbonate 500 mg = 200 mg elemental calcium Dose = mg calcium carbonate ( mg elemental calcium) Fentanyl 2018-04 No Notes: Memoria 0-31 (Same as: l 07:04: Sublimaze) Master 00 Preservat kemal free. Fentanyl 2018-04 No 1,000 Memoria 0-31 microgram, l 05:56: 20 mL, Master 00 Rate: Titrate, Start Dose: 50 microgram/ [...] moria IV 0-31 1,000 l 05:51: ml/hr, Master 00 Infuse Over: 1 hr, Route: IV, 1,000, Drug form: INJ, ONCE, Priority: STAT, Dosing Weight 90 kg, Start date: 02/15/19 0:51:00 CDT, Stop date: 02/15/19 0:51:00 CDT, 0 norepinephr 2018-04 No Route: IV, Memoria ine (ANES) 0-31 Drug form: l 02:11: INJ, ONCE, [place] Stop date: 02/14/19 21:11:00 CDT Sodium 2018-04 No Route: IV, Memor ia Chloride 0-31 Total l 0.9% IV 01:00: Volume: Master (ANES) 500 00 500, Start mL date: 02/14/19 20:00:00 CDT, Stop date: 02/14/19 21:00:00 CDT rocuronium 2018-04 No Route: IV, M emoria (ANES) 0-31 Drug form: l 00:29: INJ, ONCE, [place] 00 Stop date: 02/14/19 19:29:00 CDT phenylephri 2018-04 No Route: IV, Memoria ne (ANES) 0-31 Drug form: l 00:29: INJ, ONCE, Master 00 Stop date: 02/14/19 19:29:00 CDT fentaNYL 2018-04 No Route: IV, Mem oria (ANES) 0-31 Drug form: l 00:14: INJ, ONCE, [place] 00 Stop date: 02/14/19 19:14:00 CDT ceFAZolin 2018-04 No Route: IV, Me moria (ANES) 0-31 Drug form: l 00:04: INJ, ONCE, Master 00 Stop date: 02/14/19 19:04:00 CDT Sodium 2018-04 [...] Memoria 0-30 Route: l 23:01: IVP, Drug [place] Form: SOLN, Dosing Weight 90, kg, ONCALL, [...] 1 2018-04 No 10 mg, Rito ir[place]a 0-30 Route: l 22:43: IVPB, Drug Master form: SOLN, ONCE, kg, Priority: STAT, Start date: 02/14/19 17:43:00 CDT, Stop date: 02/14/19 17:43:00 CDT Saline 2018-04 No 10 mL, Memoria Flush 0.9% 030 Route: l 22:05: IVP, Drug [place] Form: INJ, kg, PRN, PRN Line Flush, Start date: 02/14/19 17:05:00 CDT, Duration: 30 day, Stop date: 03/16/19 16:04:00 [employer], 0 Vital Signs Vital Name Observation Time Observation Value Comments Source Heart rate 2019-09-28 14:25:00 64 /min [facility] Respiratory rate 2019-09-28 14:25:00 18 /min [facility] Oxygen saturation in 2019-09-28 14:25:00 98 /min [facility] - Arterial blood by Medical [facility]ter Pulse oximetry Systolic blood 2019-09-28 11:40:00 98 mm[Hg] [facility] Diastolic blood 2019-09-28 11:40:00 56 mm[Hg] [facility] Body temperature 2019-09-28 11:40:[address] [facility] Body height 2019-09-22 14:00:00 160 cm [facility] Body weight 2019-09-22 14:00:00 68.04 kg [facility] BMI 2019-09-22 14:00:00 26.57 kg/m2 [facility] Heart Rate 2019-07-09 20:06:00 [facility] [place] Respitory Rate 2019-07-09 20:06:00 Memori al Master Systolic (mm Hg) 2019-07-09 20:06:00 Rito rial Master Diastolic (mm Hg) 2019-07-09 20:06:00 Mem orial Master Heart Rate 2019-07-09 17:17:00 [facility] Master Respitory Rate 2019-07-09 17:17:00 Memori al [place] Systolic (mm Hg) 2019-07-09 17:17:00 Rito rial [place] Diastolic (mm Hg) 2019-07-09 17:17:00 Mem orial Master Heart Rate 2019-07-09 13:25:00 [facility] [place] Respitory Rate 2019-07-09 13:25:00 Memori al [place] Systolic (mm Hg) 2019-07-09 13:25:00 Rito rial [place] Diastolic (mm Hg) 2019-07-09 13:25:00 Mem orial [place] Temperature Oral (F) 2019-07-07 08:03:00 [facility] 2019-07-07 07:58:00 167[facility]64 [facility] Weight 2019-07-07 07:58:00 [facility] BMI Calculated 2019-07-07 07:58:00 Memori al Master Temperature Oral (F) 2019-05-27 14:00:00 97.7 F [facility] [place] Heart Rate 2019-05-27 14:00:00 [facility] Master Respitory Rate 2019-05-27 14:00:00 Memori al [place] Systolic (mm Hg) 2019-05-27 14:00:00 Rito rial Master Diastolic (mm Hg) 2019-05-27 14:00:00 Mem orial [place] Temperature Oral (F) 2019-05-27 10:00:00 97.4 F [facility] Master Heart Rate 2019-05-27 10:00:00 [facility] [place] Respitory Rate 2019-05-27 10:00:00 Memori al Master Systolic (mm Hg) 2019-05-27 10:00:00 Rito rial [place] Diastolic (mm Hg) 2019-05-27 10:00:00 Mem orial Master Temperature Oral (F) 2019-05-27 06:01:00 98.5 F [facility] Master Heart Rate 2019-05-27 06:01:00 [facility] Master Respitory Rate 2019-05-27 06:01:00 Memori al [place] Systolic (mm Hg) 2019-05-27 06:01:00 Rito rial [place] Diastolic (mm Hg) 2019-05-27 06:01:00 Mem orial Master Height 2019-05-17 17:16:00 157.48 cm [facility] Master Weight 2019-05-17 17:16:00 [facility] [place] BMI Calculated 2019-05-17 17:16:00 Memori al [place] Height 2019-05-17 16:33:00 165.1 cm [facility] [place] Weight 2019-05-17 16:33:00 [facility] [place] BMI Calculated 2019-05-17 16:33:00 Memori al [place] Heart Rate 2019-04-10 21:00:00 [facility] [place] Respitory Rate 2019-04-10 21:00:00 Memori al [place] Systolic (mm Hg) 2019-04-10 21:00:00 Rito rial [place] Diastolic (mm Hg) 2019-04-10 21:00:00 Mem orial [place] Heart Rate 2019-04-10 17:11:00 [facility] Master Respitory Rate 2019-04-10 17:11:00 Memori al Master Systolic (mm Hg) 2019-04-10 17:11:00 Rito rial [place] Diastolic (mm Hg) 2019-04-10 17:11:00 Mem orial [place] Heart Rate 2019-04-10 13:45:00 [facility] [place] Respitory Rate 2019-04-10 13:45:00 Memori al Master Systolic (mm Hg) 2019-04-10 13:45:00 Rito rial Master Diastolic (mm Hg) 2019-04-10 13:45:00 Mem orial Master Height 2019-04-10 11:48:00 154.94 cm [facility] Master Weight 2019-04-10 11:48:00 [facility] Master BMI Calculated 2019-04-10 11:48:00 Memori al [place] Height 2019-04-09 02:35:00 157.48 cm [facility] [place] Weight 2019-04-09 02:35:00 [facility] [place] BMI Calculated 2019-04-09 02:35:00 Memori al Master Temperature Oral (F) 2019-04-09 02:09:00 98.3 F [facility] Master Weight 2019-04-08 20:55:00 [facility] [place] Heart Rate 2019-04-06 21:34:00 [facility] [place] Respitory Rate 2019-04-06 21:34:00 Memori al [place] Systolic (mm Hg) 2019-04-06 21:34:00 Rito rial [place] Diastolic (mm Hg) 2019-04-06 21:34:00 Mem orial [place] Heart Rate 2019-04-06 17:14:00 [facility] Master Respitory Rate 2019-04-06 17:14:00 Memori al [place] Systolic (mm Hg) 2019-04-06 17:14:00 Rito rial Master Diastolic (mm Hg) 2019-04-06 17:14:00 Mem orial Master Heart Rate 2019-04-06 13:46:00 [facility] [place] Respitory Rate 2019-04-06 13:46:00 Memori al Master Systolic (mm Hg) 2019-04-06 13:46:00 Rito rial Master Diastolic (mm Hg) 2019-04-06 13:46:00 Mem orial [place] Temperature Oral (F) 2019-04-05 05:50:00 98.5 F [facility] Master Temperature Oral (F) 2019-04-04 21:32:00 98.6 F [facility] Master Temperature Oral (F) 2019-04-04 17:35:00 98.7 F [facility] Master Height 2019-04-02 12:35:00 177.8 cm [facility] [place] Height 2019-03-30 11:56:00 177.8 cm [facility] Master Height 2019-03-29 11:00:00 177.8 cm [facility] Master Weight 2019-03-29 06:16:00 [facility] [place] BMI Calculated 2019-03-29 06:16:00 Memori al Master Weight 2019-03-29 05:15:00 [facility] [place] BMI Calculated 2019-03-29 05:15:00 Memori al Msater BMI Calculated 2019-03-29 02:23:00 Memori al [place] Weight 2019-03-29 02:23:00 [facility] [place] Respitory Rate 2019-03-29 01:12:00 Memori al Master Heart Rate 2019-03-29 01:12:00 [facility] Master Systolic (mm Hg) 2019-03-29 01:12:00 Rito rial Master Diastolic (mm Hg) 2019-03-29 01:12:00 Mem orial [place] Systolic (mm Hg) 2019-03-28 21:22:00 Rito rial Master Diastolic (mm Hg) 2019-03-28 21:22:00 Mem orial Master Heart Rate 2019-03-28 21:22:00 [facility] Master Respitory Rate 2019-03-28 21:22:00 Memori al [place] Temperature Oral (F) 2019-03-28 21:22:00 98.2 F [facility] [place] Height 2019-03-28 21:22:00 177.8 cm [facility] Master BMI Calculated 2019-03-28 21:22:00 Memori al [place] Weight 2019-03-28 21:22:00 [facility] Master Heart Rate 2019-03-09 18:01:00 [facility] Master Respitory Rate 2019-03-09 18:01:00 Memori al [place] Systolic (mm Hg) 2019-03-09 18:01:00 Rito rial Master Diastolic (mm Hg) 2019-03-09 18:01:00 Mem orial Master Heart Rate 2019-03-09 13:22:00 [facility] [place] Respitory Rate 2019-03-09 13:22:00 Memori al [place] Systolic (mm Hg) 2019-03-09 13:22:00 Rito rial [place] Diastolic (mm Hg) 2019-03-09 13:22:00 Mem orial [place] Heart Rate 2019-03-09 10:23:00 [facility] Master Respitory Rate 2019-03-09 10:23:00 Memori al Master Systolic (mm Hg) 2019-03-09 10:23:00 Rito rial Master Diastolic (mm Hg) 2019-03-09 10:23:00 Mem orial [place] Temperature Oral (F) 2019-03-08 10:16:00 98.4 F [facility] Master Temperature Oral (F) 2019-03-08 06:04:00 97.9 F [facility] Master Temperature Oral (F) 2019-03-08 02:23:00 97.9 F [facility] [place] Height 2019-03-07 04:48:00 162.56 cm [facility] [place] Weight 2019-03-07 04:48:00 [facility] Master BMI Calculated 2019-03-07 04:48:00 Memori al [place] Height 2019-03-06 21:51:00 170.18 cm [facility] Master BMI Calculated 2019-03-06 21:51:00 Memori al Master Weight 2019-03-06 21:51:00 [facility] [place] Heart Rate 2019-02-28 21:30:00 [facility] [place] Respitory Rate 2019-02-28 21:30:00 Memori al Master Systolic (mm Hg) 2019-02-28 21:30:00 Rito rial [place] Diastolic (mm Hg) 2019-02-28 21:30:00 [facility] [place] Temperature Oral (F) 2019-02-28 18:00:00 98.3 F [facility] [place] Heart Rate 2019-02-28 18:00:00 [facility] Respitory Rate 2019-02-28 18:00:00 [facility] [place] Systolic (mm Hg) 2019-02-28 18:00:00 [facility] Diastolic (mm Hg) 2019-02-28 18:00:00 [facility] Temperature Oral (F) 2019-02-28 13:33:00 97.6 F [facility] Heart Rate 2019-02-28 13:33:00 [facility] Respitory Rate 2019-02-28 13:33:00 [facility] [place] Systolic (mm Hg) 2019-02-28 13:33:00 [facility] [place] Diastolic (mm Hg) 2019-02-28 13:33:00 [facility] Temperature Oral (F) 2019-02-28 01:27:00 98.8 F [facility] [place] Height 2019-02-18 11:00:00 167.64 cm [facility] [place] Height 2019-02-17 17:08:00 167.64 cm [facility] BMI Calculated 2019-02-17 17:08:00 [facility] Weight 2019-02-17 17:08:00 [facility] Height 2019-02-17 10:41:00 167.64 cm [facility] Weight 2019-02-15 08:54:00 [facility] BMI Calculated 2019-02-15 08:54:00 [facility] Weight 2019-02-15 08:16:00 [facility] BMI Calculated 2019-02-15 08:16:00 Obed Escobedo Procedures Procedure Date / Time Performing Clinician Source Performed REPORT OF PROCEDURE - 2019-10-01 13:20:56 Provider, Default [facility] ENDOSCOPY SCAN [facility] RHYTHM STRIP - SCAN 2019-10-01 13:20:49 Provider, Default [facility] POCT-GLUCOSE METER 2019-09-28 12:17:00 Seab[facility]ian, [facility] POCT-GLUCOSE METER 2019-09-28 08:02:00 [facility] [facility] CBC W/PLT COUNT & AUTO 2019-09-28 05:19:00 Sebastian, [facility] BASIC METABOLIC PANEL 2019-09-28 05:19:00 Sebastian, [facility] () [facility] MAGNESIUM 2019-09-28 05:19:[address] [facility] PHOSPHORUS 2019-09-28 05:19:[address] [facility] POCT-GLUCOSE METER 2019-09-27 22:20:00 Sebastian, [facility] POCT-GLUCOSE METER 2019-09-27 17:18:00 Sebastian, [facility] XR CHEST 1 VIEW 2019-09-27 15:32:00 Sebastian, [facility] PORTABLE/BEDSIDE [facility] POCT-GLUCOSE METER 2019-09-27 10:44:00 Sebastian, [facility] POCT-GLUCOSE METER 2019-09-27 07:23:00 Sebastian, [facility] MAGNESIUM 2019-09-27 06:39:[address] [facility] PHOSPHORUS 2019-09-27 06:39:[address] [facility] POCT-GLUCOSE METER 2019-09-27 06:11:00 Sebastian, [facility] POCT-GLUCOSE METER 2019-09-27 00:55:00 Sebastian, [facility] POCT-GLUCOSE METER 2019-09-26 17:15:00 Sebastian, [facility] SARS-COV2/RT-PCR ([facility] & 2019-09-26 16:18:00 Sebastian, [facility] POCT-[facility]SE METER 2019-09-26 12:04:00 Sebastian, [facility] MAGNESIUM 2019-09-26 05:24:[address] [facility] PHOSPHORUS 2019-09-26 05:24:[address] [facility] POCT-GLUCOSE METER 2019-09-25 17:35:00 Sebastian, [facility] POCT-GLUCOSE METER 2019-09-25 11:23:00 Sebastian, [facility] POCT-GLUCOSE METER 2019-09-25 06:22:00 Sebastian, [facility] MAGNESIUM 2019-09-25 05:12:[address] [facility] PHOSPHORUS 2019-09-25 05:12:[address] [facility] POCT-GLUCOSE METER 2019-09-24 23:59:00 Sebastian, [facility] POCT-GLUCOSE METER 2019-09-24 18:07:00 Sebastian, [facility] POCT-GLUCOSE METER 2019-09-24 14:01:00 Sebastian, [facility] POCT-GLUCOSE METER 2019-09-24 06:10:00 Sebastian, [facility] CBC W/PLT COUNT & AUTO 2019-09-24 03:47:00 Eusebio King In [facility] BASIC METABOLIC PANEL 2019-09-24 03:47:00 Nolvia Musa [facility] (7) [facility] MAGNESIUM 2019-09-24 03:47:[address] [facility] PHOSPHORUS 2019-09-24 03:47:[address] [facility] POCT-GLUCOSE METER 2019-09-23 23:22:00 Linda Cortes [facility] POCT-GLUCOSE METER 2019-09-23 17:56:00 Eusebio King In [facility] POCT-GLUCOSE METER 2019-09-23 13:53:00 Eusebio King In [facility] POCT-GLUCOSE METER 2019-09-23 12:53:00 Eusebio King In [facility] URINALYSIS WITH 2019-09-23 12:39:00 Eusebio King In [facility] IF INDICATED [facility] URINALYSIS MICROSCOPIC 2019-09-23 12:39:00 Eusebio King In [facility] POCT-GLUCOSE METER 2019-09-23 06:09:00 Eusebio King In [facility] BASIC METABOLIC PANEL 2019-09-23 05:18:00 Nolvia Musa [facility] () [facility] VITAMIN D, 25-HYDROXY 2019-09-23 05:18:[address] [facility] MAGNESIUM 2019-09-23 05:18:[address] [facility] PHOSPHORUS 2019-09-23 05:18:[address] [facility] POCT-GLUCOSE METER 2019-09-22 23:52:00 Eusebio King In [facility] BLOOD CULTURE 2019-09-22 23:00:00 [facility] POCT-GLUCOSE METER 2019-09-22 17:15:00 Eusebio King In [facility] XR CHEST 1 VIEW 2019-09-22 15:58:00 Eusebio King In [facility] PORTABLE/BEDSIDE [facility] HIV-1 ANTIGEN WITH 2019-09-22 15:05:00 Eusebio King In [facility] HIV-1/2 [facility] RPR 2019-09-22 15:05:[address] [facility] POCT-GLUCOSE METER 2019-09-22 11:54:00 Eusebio King [facility] TSH/FREE T4 IF INDICATED 2019-09-22 06:22:00 [facility] VITAMIN B12 AND FOLATE 2019-09-22 06:22:00 [facility]lic[facility] B1 2019-09-22 06:22:00 [facility]lic[facility] C-REACTIVE PROTEIN 2019-09-22 06:22:00 Angélica, [facility] AMMON[facility] 2019-09-22 06:22:00 [facility] TROPONIN I 2019-09-22 06:22:00 Lencho [facility] T4, FREE 2019-09-22 06:22:00 [facility]lica, [facility] CBC W/PLT COUNT & AUTO 2019-09-22 01:46:00 Lencho [facility] VALPROIC ACID LEVEL, 2019-09-22 01:46:00 [facility] TROPONIN I 2019-09-22 01:46:00 [facility] HEMOGLOBIN A1C 2019-09-22 01:46:00 [facility] BASIC METABOLIC PANEL 2019-09-22 01:46:00 Nolvia Musa [facility] (7) [facility] PROTHROMBIN TIME/INR 2019-09-22 01:46:00 Lencho [facility] HEPATIC FUNCTION PANEL 2019-09-22 01:46:00 Lencho [facility] [U] XRAY THORACOLUMBAR 2019-04-25 00:[facility] SP[facility] AP AND LAT. [id number] Physicia ns [U] XRAY SPINE CERVICAL 2019-04-25 00:00:00 [facility] 2 OR 3 VWS [id number] Physicians Craniotomy and removal [facility] of haematoma from extradural space Plan of [...] 00:00:00 (1 of 1 - Medical Center [id number] PCV13) [code = PNEUMOCOCCAL 65+ YRS (1 of 1 - QDPZ92_Okqspok PCV13)] Encounters Start End Encounter Admission Attending Care Care Encounter Source Date/Time Date/Time Type Type Clinicians Facility Department ID 2019-05-17 Inpatient [facility] MED [id number] [facility]HS W 10:14:00 2020-06-30 2020-06-30 Outpatient Amrit [facility] [id number] 00:00:00 00:00:00 Anthony [id number] Elroy [id number] 2020-06-13 2020-06-13 Juan Antonio Brooke [facility] [id number] 00:00:00 00:00:00 Emeterio Collins [id number] [place] [id number] Professio [id number] [address] 2020-05-12 2020-05-12 Outpatient Amrit [facility] [id number] 00:00:00 00:00:00 Anthony [id number] [place] [id number] 2019-08-17 2019-08-17 [id number] 08:30:00 08:30:00 Marissa 00 2019-07-08 2019-07-09 Outpatient Keon [place] SL [id number] 09:41:00 17:47:00 Eloise Fernandes 2019-07-08 2019-07-07 Inpatient E [facility]FB MED [id number] [facility]FB 09:41:00 01:54:00 2019-05-17 2019-05-27 Outpatient Kirill Snyder [facility] [id number] 10:14:00 14:19:00 Lugo 30 2019-04-25 2019-04-25 [facility] [id number] 07:30:00 08:15:47 2019-04-25 2019-04-25 [facility] [id number] [facility] 07:30:00 07:30:00 t; Eric FULLER at [facility] Eric FULLER [facility] 2019-04-08 2019-04-10 Outpatient Brijesh Husain MHSL MHSL [id number] 14:39:53 17:44:00 Dougie 2019-04-08 2019-04-08 Inpatient E MHFB MED [id number] MHFB 19:32:00 14:39:00 2019-03-28 2019-04-06 Outpatient Godfrey [facility] [id number] 20:20:21 19:41:00 Magalie 2019-03-28 2019-03-28 Inpatient E [facility]H MHHH [id number] MHHH 22:05:00 20:20:00 2019-03-28 2019-03-28 Outpatient Debo-Evaristo MHPL MHPL [id number] 15:21:29 19:49:00 Irina schilling 2019-03-28 2019-03-28 Emergency E MHBL MHBL [id number] MHBL 15:21:00 15:21:00 2019-03-19 2019-03-19 Outpatient Florenciolaurentcrow MHOIH MHOIH [id number] 16:43:00 23:59:00 Chava Navarrete 2019-03-06 2019-03-09 Outpatient Emma [facility] [id number] 15:44:12 15:46:00 Oni Hunter David 2019-03-09 2019-03-06 Inpatient E MHHH MHHH [id number] MHHH 11:09:00 20:28:00 2019-02-14 2019-02-28 Outpatient Horace [facility] [id number] 17:00:00 15:50:00 Dalia Deng 2019-02-14 2019-02-14 Outpatient [facility] RIC [id number] [facility] 18:48:00 18:48:00 2019-02-14 2019-02-14 Inpatient E [facility] [id number] [facility] 18:06:00 17:02:00 Results Test Description Test Time Test Comments Results Result Comments Source Vitamin B1 2019-09-28 20:17:00 Test Item Value Reference Range Interpretation Comme nts Vitamin B1,LCMSMS (test 34 nmol/L 8-30 H Shelbi min supplementation code = 1161972) within 24 ho urs prior to blood draw may affect the accuracy of res ults. This test was d krystle and its analytical performance characteristics have been determined by [employer]. It has not been cleared or approved by theA. This as say has been validated pursu ant to the CLIA regulation s and is used for clinic al purposes. TIGIST (test code = TIGIST) Performing Lab *CHRISTIAN [facility], [address] [place] [phone] Sam Simons MD, PhD Lab Interpretation (test Abnormal code = 12703-1) [facility] [id number] 12:28:00 Test Item Value Reference Range Interpretation Comments POC-Glucose Meter (test 99 mg/dL 70-110 : TE STED AT [facility] code = 1538) 6720 [facility], 770 30: Property Adjuster/Techni amada ID = [id number] for AKINKATEUNANDOLA Lab Interpretation (test Normal code = 05972-7) [facility]-GLUCOSE [id number] 12:28:00 Test Item Value Reference Range Interpretation Comments POC-GLUCOSE METER 99 mg/dL 70-110 : [facility] (test code = [facility], 1533) 93865: Property Adjuster/Techni amada ID = [id number] for RICHARD BEATRIZ, ELICEO POCT-GLUCOSE [id number] 08:13:00 Test Item Value Reference Range Interpretation Comments POC-GLUCOSE METER 79 mg/dL 70-110 : [facility]BEIMshopping[facility] (test code = [facility], 1538) 90852: Property Adjuster/Techni amada ID = [id number] for ELICEO STANLEY Basic Metabolic [id number] 06:39:00 Test Item Value Reference Range Interpretation Comments Sodium (test code = 129 meq/L 136-145 L 2951-2) Potassium (test code = 4.2 meq/L 3.5-5.1 2823-3) Chloride (test code = 100 meq/L 98-107 2075-0) CO2 (test code = 24 meq/L 22-29 2028-9) BUN (test code = 15 mg/dL 7-21 3094-0) Creatinine (test code 1.11 mg/dL 0.57-1.25 = 2160-0) Glucose (test code = 75 mg/dL 70-105 2345-7) Calcium (test code = 8.9 mg/dL 8.4-10.2 86393-9) EGFR (test code = 76 mL/min/1.73 sq m [place] [address]-8) NOT ACCURATE CREATININE CLEARANCE IN PREDICTING GLOMERULAR FILTRATION RATE . ESTIMATED GFR I S NOT APPLICABLE FOR DIALYSIS PATIENTS. TIGIST (test code = TIGIST) Property Adjuster ID - GRISEL M Lab Interpretation Abnormal (test code = 60869-6) [facility]12 06:39:00 Test Item Value Reference Range Interpretation Comments Magnesium (test code = 1.7 mg/dL 1.6-2.6 76152-2) TIGIST (test code = TIGIST) Property Adjuster ID - GRISEL M Lab Interpretation (test Normal code = 97724-9) [facility]2020-06-12 06:39:00 Test Item Value Reference Range Interpretation Comments Phosphorus (test code = 3.2 mg/dL 2.3-4.7 2777-1) TIGIST (test code = TIGIST) Property Adjuster ID - GRISEL M Lab Interpretation (test Normal code = 32373-0) [facility]-12 06:39:00 Test Item Value Reference Range Interpretation Comments PHOSPHORUS (BEAKER) (test code = 3.2 mg/dL 2.3-4.7 604) Property Adjuster ID - GRISEL [id number] 06:39:00 Test Item Value Reference Range Interpretation Comments MAGNESIUM (BEAKER) (test code = 1.7 mg/dL 1.6-2.6 627) Property Adjuster ID - GRISEL MBASIC METABOLIC [id number] 06:39:00 Test Item Value Reference Range Interpretation [...] S NOT APPLICABLE FOR DIALYSIS PATIEN TS. Property Adjuster ID - GRISEL MCBC with platelet count + automated [id number] 06:02:00 Test Item Value Reference Range Interpretation Comments WBC (test code = 6690-2) 5.2 See_Comment [A utomated message] The system [employer] generated this result transmitted ref erence range: 3.5 - 10 .5 K/L. The refe rence range was not u sed to interpret this result as normal/abnor mal. RBC (test code = 789-8) 3.48 See_Comment L [Au tomated message] The system [employer] generated this result transmitted ref erence range: 4.63 - 6 .08 M/L. The refe rence range was not u sed to interpret this result as normal/abnor mal. MCHC (test code = 786-4) 33.1 See_Comment L [A utomated message] The system [employer] generated this result transmitted ref erence range: [...] code = 176 See_Comment [Aut omated message] 777-3) The system [employer] generated this result transmitted ref erence range: 150 - 45 0 K/CU MM. The referen ce range was not u sed to interpret this result as normal/abnor mal. MPV (test code = 10.1 fL 9.4-12.4 72742-2) nRBC (test code = 413) 0 See_Comment [Aut omated message] The system [employer] generated this result transmitted ref erence range: [...] See_Comment [Aut omated message] 670) The system [employer] generated this result transmitted ref erence range: 1.78 - 5 .38 K/L. The refe rence range was not u sed to interpret this result as normal/abnor mal. # Lymphs (test code = 1.88 See_Comment [Auto mated message] 414) The system [employer] generated this result transmitted ref erence range: 1.32 - 3 .57 K/L. The refe rence range was not u sed to interpret this result as normal/abnor mal. # Monos (test code = 0.73 See_Comment [Autom ated message] 415) The system [employer] generated this result transmitted ref erence range: 0.30 - 0 .82 K/L. The refe rence range was not u sed to interpret this result as normal/abnor mal. # Eos (test code = 416) 0.17 See_Comment [Au tomated message] The system [employer] generated this result transmitted ref erence range: 0.04 - 0 .54 K/L. The refe rence range was not u sed to interpret this result as normal/abnor mal. # Baso (test code = 417) 0.03 See_Comment [A utomated message] The system [employer] generated this result transmitted ref erence range: 0.01 - 0 .08 K/L. The refe rence range was not u sed to interpret this result as normal/abnor mal. Immature 1 % 0-1 Granulocytes-Relative (test code = 2801) Lab Interpretation (test Abnormal code = 52775-8) [facility] W/PLT COUNT & AUTO [id number] 06:02:00 Test Item Value Reference Range Interpretation [...] = No growth in 5 days 6463-4) [facility] [id number] 01:00:00 Test Item Value Reference Range Interpretation Comments CULTURE (BEAKER) (test No growth in 5 days code = 1095) BLOOD [id number] 01:00:00 Test Item Value Reference Range Interpretation Comments CULTURE (BEAKER) (test No growth in 5 days code = 1095) POCT-GLUCOSE [id number] 22:32:00 Test Item Value Reference Range Interpretation Comments POC-GLUCOSE METER 106 mg/dL 70-110 : TESTED A T [facility] 6720 (BEAKER) (test code = [facility], 1538) 49766: Property Adjuster/Techni amada ID = [id number] for DE NNIS, JOSE POCT-GLUCOSE [id number] 17:30:00 Test Item Value Reference Range Interpretation Comments POC-GLUCOSE METER 92 mg/dL 70-110 : TESTED A T [facility] 6720 (BEAKER) (test code = [facility], 1538) 23616: Property Adjuster/Techni amada ID = [id number] for GANNON , DELFIN RAD, CHEST, 1 VIEW, NON [id number] 16:16:00Reason for exam:->sobShould this be performed at [...] 16:16:19 XR chest 1 view portable / [id number] 16:16:00Interface, External Ris In - 09/27/2019 4:18 [...] Jerry Cervantes MDReport Verified Date/Time: 09/27/2019 16:16:19 [facility]2019-09-27 16:07:00 Test Item Value Reference Range Interpretation Comments SARS-COV2/RT-PCR (test code = Negative Not Detected, Negative 92091-8) SARS-COV-2 PERFORMING LAB CPL (test code = 72926-8) [facility]2019-09-27 16:07:00 Test Item Value Reference Range Interpretation Comments SARS-COV2/RT-PCR (test code = Negative Not Detected, Negative 5246152) SARS-COV-2 PERFORMING LAB CPL (test code = 4156156) POCT-GLUCOSE [id number] 11:12:00 Test Item Value Reference Range Interpretation Comments POC-GLUCOSE METER 121 mg/dL 70-110 H : TESTED A T [facility] 6720 (BEAKER) (test code = [facility], 1538) 92513: Property Adjuster/Techni amada ID = [id number] for HU NT, DELFIN [id number] 07:56:00 Test Item Value Reference Range Interpretation Comments PHOSPHORUS (BEAKER) (test code = 3.4 mg/dL 2.3-4.7 604) Property Adjuster ID - JOLYNN [id number] 07:56:00 Test Item Value Reference Range Interpretation Comments MAGNESIUM (BEAKER) (test code = 1.8 mg/dL 1.6-2.6 627) Property Adjuster ID - JOYLNN LPOCT-GLUCOSE [id number] 07:38:00 Test Item Value Reference Range Interpretation Comments POC-GLUCOSE METER 89 mg/dL 70-110 : TESTED A T [facility] 6720 (BEAKER) (test code = [facility], 1538) 27192: Property Adjuster/Techni amada ID = [id number] for GANNON DELFIN POCT-GLUCOSE [id number] 06:36:00 Test Item Value Reference Range Interpretation Comments POC-GLUCOSE METER 70 mg/dL 70-110 : TESTED A T [facility] 6720 (BEAKER) (test code = [facility], 1538) 06397: Property Adjuster/Techni amada ID = [id number] for DENN IS, JOSE POCT-GLUCOSE [id number] 01:06:00 Test Item Value Reference Range Interpretation Comments POC-GLUCOSE METER 94 mg/dL 70-110 : TESTED A T [facility] 6720 (BEAKER) (test code = [facility], 1538) 48759: Property Adjuster/Techni amada ID = [id number] for DENN IS, JOSE POCT-GLUCOSE [id number] 17:53:00 Test Item Value Reference Range Interpretation Comments POC-GLUCOSE METER 94 mg/dL 70-110 : TESTED A T [facility] 6720 (BEAKER) (test code = [facility], 1538) 86067: Property Adjuster/Techni amada ID = [id number] for BROW N, SREE POCT-GLUCOSE [id number] 15:47:00 Test Item Value Reference Range Interpretation Comments POC-GLUCOSE METER 123 mg/dL 70-110 H : TESTED A T [facility] 6720 (BEAKER) (test code = [facility], 1538) 83003: Property Adjuster/Techni amada ID = [id number] for BR OWN, SREE [id number] 06:57:00 Test Item Value Reference Range Interpretation Comments PHOSPHORUS (BEAKER) (test code = 2.8 mg/dL 2.3-4.7 604) Property Adjuster ID - GRISEL [id number] 06:57:00 Test Item Value Reference Range Interpretation Comments MAGNESIUM (BEAKER) (test code = 1.7 mg/dL 1.6-2.6 627) Property Adjuster ID - GRISEL MPOCT-GLUCOSE [id number] 17:47:00 Test Item Value Reference Range Interpretation Comments POC-GLUCOSE METER 79 mg/dL 70-110 : TESTED A T [facility] 6720 (BEAKER) (test code = [facility], 1538) 91038: Property Adjuster/Techni amada ID = [id number] for BROW N, SREE POCT-GLUCOSE [id number] 11:35:00 Test Item Value Reference Range Interpretation Comments POC-GLUCOSE METER 96 mg/dL 70-110 : TESTED A T [facility] 6720 (BEAKER) (test code = [facility], 1538) 13146: Property Adjuster/Techni amada ID = [id number] for BROW N, SREE POCT-GLUCOSE [id number] 06:33:00 Test Item Value Reference Range Interpretation Comments POC-GLUCOSE METER 105 mg/dL 70-110 : TESTED A T [facility] 6720 (BEAKER) (test code = [facility], 1538) 36500: Property Adjuster/Techni amada ID = [id number] for DO VE, CHEKARA [id number] 06:32:00 Test Item Value Reference Range Interpretation Comments PHOSPHORUS (BEAKER) (test code = 2.6 mg/dL 2.3-4.7 604) Property Adjuster ID - GRISEL [id number] 06:32:00 Test Item Value Reference Range Interpretation Comments MAGNESIUM (BEAKER) (test code = 1.7 mg/dL 1.6-2.6 627) Property Adjuster ID - GRISEL MPOCT-GLUCOSE [id number] 00:14:00 Test Item Value Reference Range Interpretation Comments POC-GLUCOSE METER 126 mg/dL 70-110 H : TESTED A T [facility] 6720 (BEAKER) (test code = [facility], 1538) 87746: Property Adjuster/Techni amada ID = [id number] for DO VE, CHEKARA POCT-GLUCOSE [id number] 18:19:00 Test Item Value Reference Range Interpretation Comments POC-GLUCOSE METER 86 mg/dL 70-110 : TESTED A T [facility] 6720 (AKER) (test code = [facility], [facility]8) 58247: Property Adjuster/Techni amada ID = [id number] for RICHARD BEATRIZ, ELICEO POCT-GLUCOSE [id number] 14:12:00 Test Item Value Reference Range Interpretation Comments POC-GLUCOSE METER 114 mg/dL 70-110 H : TESTED A T [facility] 6720 (AKER) (test code = [facility], 1538) 60761: Property Adjuster/Techni amada ID = [id number] for AK INSONU, ELICEO POCT-GLUCOSE [id number] 06:21:00 Test Item Value Reference Range Interpretation Comments POC-GLUCOSE METER 109 mg/dL 70-110 : TESTED A T [facility] 6720 (BEAKER) (test code = [facility], 1538) 58905: Property Adjuster/Techni amada ID = [id number] for DE NNIS, JOSE CBC W/PLT COUNT & AUTO [id number] 05:16:00 Test Item Value Reference Range Interpretation Comments WHITE BLOOD CELL COUNT (BEAKER) 4.2 K/ L 3.5-10.5 (test code = 775) RED BLOOD CELL COUNT ([facility]) 3.48 M/ L 4.63-6.08 L (test code [...] 0-1 PERCENT (BEAKER) (test code = 2801) [id number] 05:15:00 Test Item Value Reference Range Interpretation Comments PHOSPHORUS (BEAKER) (test code = 2.3 mg/dL 2.3-4.7 604) Property Adjuster ID - GRISEL [id number] 05:15:00 Test Item Value Reference Range Interpretation Comments MAGNESIUM (BEAKER) (test code = 1.8 mg/dL 1.6-2.6 627) Property Adjuster ID - GRISEL MBASIC METABOLIC [id number] 05:15:00 Test Item Value Reference Range Interpretation [...] S NOT APPLICABLE FOR DIALYSIS PATIEN TS. Property Adjuster ID Milton RECINOS MPOCT-GLUCOSE [id number] 23:34:00 Test Item Value Reference Range Interpretation Comments POC-GLUCOSE METER 108 mg/dL 70-110 : TESTED A T [facility] 6720 (BEAKER) (test code = TODD Dumont [facility], 1538) 69030: Property Adjuster/Techni amada ID = [id number] for DE NNIS, JOSE POCT-GLUCOSE [id number] 18:08:00 Test Item Value Reference Range Interpretation Comments POC-GLUCOSE METER 136 mg/dL 70-110 H : TESTED A T [facility] 6720 (BEIMshopping) (test code [facility], = 1538) 49979: Property Adjuster/Techni amada ID = [id number] for TSEG GAI, TSIGHEREDA Urinalysis Microscopic [id number] 14:06:00 Test Item Value Reference Range Interpretation Comments RBC, UA (test 6 See_Comment [Automated me ssage] code = 40121-0) The system w hich generated this result transmit guillaume reference range : /HPF. The refer ence range was not u sed to interpret th is result as normal/abnormal . WBC, UA (test 58 See_Comment [Automated me ssage] code = 5821-4) The system [facility] generated this result transmit guillaume reference range : /HPF. The refer ence range was not u sed to interpret th is result as normal/abnormal . Mucus (test Occasional code = 8247-9) Squam Epithel, <1 See_Comment [Automated m essage] UA (test code = The system w hich 41237-2) generated this result transmit guillaume reference range : /HPF. The refer ence range was not u sed to interpret th is result as normal/abnormal . TIGIST (test code Property Adjuster ID - tech = TIGIST) [facility] [id number] 14:06:00 Test Item Value Reference Range Interpretation Comments RBC UA (BEAKER) (test code = 519) 6 /HPF WBC UA (BEAKER) (test code = 520) 58 /HPF MUCUS (BEAKER) (test code = 1574) Occasional SQUAMOUS EPITHELIAL (BEAKER) (test < /HPF code = 516) Property Adjuster ID - techPOCT-GLUCOSE [id number] 14:04:00 Test Item Value Reference Range Interpretation Comments POC-GLUCOSE METER 99 mg/dL 70-110 : TESTED A T [facility] 6720 (BEAKER) (test code = [facility], 1538) [address]: Property Adjuster/Techni amada ID = [id number] for SONALI MCNEIL Urinalysis with Microscopic If Bkdioamix5576-71-79 13:55:00 Test Item Value Reference Range Interpretation Comments Color, UA (test code = Yellow 5778-6) Clarity, UA (test code = Hazy 5767-9) Specific Dunbar, UA (test 1.018 1.001-1.035 code = 5811-5) pH, UA (test code = 7.0 5.0-8.0 5803-2) Protein, UA (test code = 10 mg/dL Negative A 92053-4) Glucose, UA (test code = Negative Negative 365) Ketones, UA (test code = Trace Negative A 2514-8) Bilirubin, UA (test code = Negative Negative 62703-4) Blood, UA (test code = Trace Negative A 82865-3) Nitrite, UA (test code = Negative Negative 5802-4) Leukocytes, UA (test code Large Negative A = 5799-2) Urobilinogen, UA (test 0.2 mg/dL 0.2-1 code = 00225-4) Specimen Source (test code = 2795) TIGIST (test code = TIGIST) Property Adjuster ID - [auto] Lab Interpretation (test Abnormal code = 26379-0) [facility] WITH MICROSCOPIC IF NEEBBZIVY7545-16-23 13:55:00 Test Item Value Reference Range Interpretation [...] = 463) SOURCE(BEAKER) (test code = 2795) Property Adjuster ID - [auto]POCT-GLUCOSE [id number] 13:04:00 Test Item Value Reference Range Interpretation Comments POC-GLUCOSE METER 111 mg/dL 70-110 H : TESTED A T [facility] 6720 (BEAKER) ([facility], = 1538) [address]: Property Adjuster/Techni amada ID = [id number] for PADMINI MORENO TJM3466-04-17 12:43:00 Test Item Value Reference Range Interpretation Comments RPR (test code = 01796-1) Nonreactive Nonreactive Lab Interpretation (test code = Normal 23450-8) [facility]PR2020-[facility] 12:43:00 Test Item Value Reference Range Interpretation Comments RPR SCREEN (BEAKER) (test code = Nonreactive Nonreactive 420) POCT-GLUCOSE [id number] 07:42:00 Test Item Value Reference Range Interpretation Comments POC-GLUCOSE METER 124 mg/dL 70-110 H : TESTED A T [facility] 6720 (BEAKER) (test code = [facility] [place], 1538) [address]: Property Adjuster/Techni amada ID = [id number] for DE NNIS, JOSE Vitamin D, 55-Oxbvyua3145-05-07 07:20:00 Test Item Value Reference Range Interpretation Comments Vitamin D 25-Hydroxy 22.1 ng/mL 6.6-49.9 (test code = 2764) TIGIST (test code = TIGIST) Effective 01/26/2017: Reference Range ChangeNew: 6.6-49.9 ng/mL Previous: 13.0-47.8 ng/mL Recommended Vitamin D Target Range: 30.0-40.0 ng/mLOperator ID - DB Lab Interpretation (test Normal code = 13740-8) [facility]illo[facility]ITAMIN D, 80-CCGEEMO8948-80-07 07:20:00 Test Item Value Reference Range Interpretation Comments VITAMIN D 25-OH (BEAKER) (test 22.1 ng/mL 6.6-49.9 code = 2764) Effective 01/26/2017: Reference Range ChangeNew: 6.6-49.9 ng/mL Previous: 13.0-47.8 ng/mLRecommended Vitamin D Target Range: 30.0-40.0 ng/mLOperator ID - XKECCXQEHCEB9252-46-02 06:46:00 Test Item Value Reference Range Interpretation Comments PHOSPHORUS (BEAKER) (test code = 2.4 mg/dL 2.3-4.7 604) Property Adjuster ID - GRISEL SITTPOYENG8166-59-25 06:46:00 Test Item Value Reference Range Interpretation Comments MAGNESIUM (BEAKER) (test code = 1.6 mg/dL 1.6-2.6 627) Property Adjuster ID - GRISEL MBASIC METABOLIC [id number] 06:46:00 Test Item Value Reference Range Interpretation [...] 358) GLUCOSE RANDOM 114 mg/dL 70-105 H (BEAKER) (test code = 652) CALCIUM (BEAKER) 9.2 mg/dL 8.4-10.2 (test code = 697) EGFR (BEAKER) (test 91 mL/min/1.73 ESTIMA GUILLAUME GFR IS code = 1092) sq m NOT ACCURATE CREATININE CLEARANCE IN PREDICTING GLOMERULAR FILTRATION RATE . ESTIMATED GFR I S NOT APPLICABLE FOR DIALYSIS PATIEN TS. Property Adjuster ID - GRISEL MPOCT-GLUCOSE [id number] 00:27:00 Test Item Value Reference Range Interpretation Comments POC-GLUCOSE METER 103 mg/dL 70-110 : TESTED A T [facility] 6720 ([facility]) (test code = TODD Dumont [facility], 1538) [address]: Property Adjuster/Techni amada ID = [id number] for UREÑA, JOSE HIV-1 Antigen with HIV-1/2 Hjulnoph4945-65-42 17:26:00 Test Item Value Reference Range Interpretation Comments HIV-1 Antigen with HIV 1&2 Nonreactive Nonreactive Antibody (test code = 18714-5) TIGIST (test code = TIGIST) Property Adjuster ID - DB Lab Interpretation (test Normal code = 95709-8) [facility]SE IWRYX5634-04-90 17:26:00 Test Item Value Reference Range Interpretation Comments POC-GLUCOSE METER 97 mg/dL 70-110 : Notified RN/MD: TESTED (BEAKER) (test code = AT [facility] 67[address] [facility] 1538) [facility], 770 30: Property Adjuster/Techni amada ID = [id number] for SONALI MCNEIL HIV-1 ANTIGEN WITH HIV-1/2 VEPKJYWD4604-18-57 17:26:00 Test Item Value Reference Range Interpretation Comments HIV-1 ANTIGEN WITH HIV 1\\T\\2 Nonreactive Nonreactive ANTIBODY (2) (NTAY) (test code = 2586) Property Adjuster ID - DBRAD, CHEST, 1 VIEW, NON DMPO4038-56-39 16:47:00Reason for exam:- >eval for pnaShould this [...] MDReport Verified Date/Time: 09/22/2019 16:47:36 Reading Location: [address] Body Reading Room POCT-GLUCOSE [id number] 12:05:00 Test Item Value Reference Range Interpretation Comments POC-GLUCOSE METER 53 mg/dL 70-110 L : TESTED A T [facility] 6720 (NATY) (test code = EDMUNDTHOMAS R [facility], 1538) [address]: Property Adjuster/Techni amada ID = [id number] for ELICEO STANLEY T4, rwwn4414-62-72 08:52:00 Test Item Value Reference Range Interpretation Comments Free T4 (test code = 0.94 ng/dL 0.7-1.48 3024-7) TIGIST (test code = TIGIST) Property Adjuster ID - JANAE Greenberg Lab Interpretation (test Normal code = 28658-2) [facility]illoT[facility], [id number] 08:52:00 Test Item Value Reference Range Interpretation Comments FREE T4 (BEAKER) (test code = 655) 0.94 ng/dL 0.70-1.48 Property Adjuster ID - JANAE CHemoglobin [id number] 08:43:00 Test Item Value Reference Range Interpretation Comments Hemoglobin A1C (test code = 4548-4) 5.4 % 4.3-6.1 Lab Interpretation (test code = Normal 14695-5) [facility]illoHEMOGLOBIN [id number] 08:43:00 Test Item Value Reference Range Interpretation Comments HEMOGLOBIN A1C (BEAKER) (test code = 5.4 % 4.3-6.1 368) Vitamin B12 and Jqnrmo5037-06-46 08:20:00 Test Item Value Reference Range Interpretation Comments Vitamin B12 (test 869 pg/mL 213-816 H code = 2132-9) Folate (test code = 19.30 ng/mL See_Comment [Automa guillaume 2284-8) message] The system which generated this result transmit guillaume reference range : >=7.00. The reference range was not used to interpret this result as normal/abnormal . TIGIST (test code = TIGIST) Property Adjuster ID - JANAE C Lab Interpretation Abnormal (test code = 28789-1) [facility]illoVITAMIN B12 AND [id number] 08:20:00 Test Item Value Reference Range Interpretation Comments VITAMIN B12 (BEAKER) (test code = 869 pg/mL 213-816 H 774) FOLATE (BEAKER) (test code = 362) 19.30 ng/mL >=7.00 Property Adjuster ID - JANAE CTSH/Free T4 If Mufkgqhin1362-17-07 08:18:00 Test Item Value Reference Range Interpretation Comments TSH (test code = 0.158 See_Comment L [Automated 09314-3) message] The system which generated this result transmit guillaume reference range : 0.350 - 4.940 uIU/mL. The reference range was not used to interpret this result as normal/abnormal . TIGIST (test code = TIGIST) Property Adjuster ID - JANAE C Lab Interpretation Abnormal (test code = 08659-7) [facility]SH/FREE T4 IF [id number] 08:18:00 Test Item Value Reference Range Interpretation Comments THYROID STIMULATING HORMONE 0.158 uIU/mL 0.350-4.940 L (BEAKER) (test code = 772) Property Adjuster ID - JANAE GiraldoFAuiqfhq4121-79-27 07:41:00 Test Item Value Reference Range Interpretation Comments Ammonia (test code = 35 See_Comment [Autom ated 78186-1) message] The system which generated this result transmit guillaume reference range : 18 - 72 mol/L . The reference range was not u sed to interpret th is result as normal/abnormal . TIGIST (test code = TIGIST) Property Adjuster ID - AAALEJANDROID Lab Interpretation Normal (test code = 81905-5) [facility]illoAMMONIA2020-06-06 07:41:00 Test Item Value Reference Range Interpretation Comments AMMONIA (BEAKER) (test code = 348) 35 mol/L 18-72 Property Adjuster ID - Bradnin [id number] 07:16:00 Test Item Value Reference Range Interpretation Comments Troponin I (test code = 0.01 ng/mL 0-0.03 16054-6) TIGIST (test code = TIGIST) Troponin I [...] AAHAMID Lab Interpretation (test Normal code = 91764-0) [facility]illoTROPONIN [id number] 07:16:00 Test Item Value Reference Range Interpretation [...] failure, acidosis, acute neurological disease, and persistent tachyarrhythmia.Property Adjuster ID - AAHAMIDC-Reactive Protein 2019-09-22 07:14:00 Test Item Value Reference Range Interpretation Comments CRP (test code = 676) 3.32 mg/dL 0-0.5 H TIGIST (test code = TIGIST) Property Adjuster ID - AAHAMID Lab Interpretation (test Abnormal code = 79809-3) [facility]illoC-REACTIVE [id number] 07:14:00 Test Item Value Reference Range Interpretation Comments C-REACTIVE PROTEIN (BEAKER) (test 3.32 mg/dL 0.00-0.50 H code = 676) Property Adjuster ID - AAHAMIDValproic acid level, ozmim8627-64-19 02:48:00 Test Item Value Reference Range Interpretation Comments Valproic Acid, Total 46 ug/mL 50-100 L (test code = 4086-5) TIGIST (test code = TIGIST) Therapeutic range for some clinical conditions may be >100 ug/mLOperator ID - DESHAWN W Lab Interpretation (test Abnormal code = 50221-3) [facility]illoVALPROIC ACID LEVEL, [id number] 02:48:00 Test Item Value Reference Range Interpretation Comments VALPROIC ACID TOTAL (BEAKER) (test 46 ug/mL 50-100 L code = 924) Therapeutic range for some clinical conditions may be >100 ug/mLOperator ID - DESHAWN WProthrombin time/TDI3283-19-28 02:31:00 Test Item Value Reference Interpretation Comments Range Protime (test code = 15.3 See_Comment H [Autom ated 5902-2) message] The system which generated this result transmitted reference range : 11.9 - 14.2 seconds. The reference range was not used to interpret this result as normal/abnormal . INR (test code = 1.2 See_Comment [Automated 8521-6) message] The system which generated this result [...] valves. Lab Interpretation Abnormal (test code = 07288-1) [facility]illoPROTHROMBIN TIME/[id number] 02:31:00 Test Item Value Reference Range Interpretation [...] is2.5-3.5 for patients wiht mechanical heart valves.TROPONIN Q1745-63-83 02:29:00 Test Item Value Reference Range Interpretation [...] failure, acidosis, acute neurological disease, and persistent tachyarrhythmia.Property Adjuster ID - DESHAWN La function ymqen7276-27-64 02:23:00 Test Item Value Reference Range Interpretation [...] 3.2 g/dL 3.5-5 L Specime n slightly 54737-2) hemolyzed Total Bilirubin (test 0.5 mg/dL 0.2-1.2 Specim en slightly code = 1975-2) hemolyzed Bilirubin, Direct 0.2 mg/dL 0.1-0.5 Specimen s lightly (test code = 1968-7) hemolyz ed Alkaline Phosphatase 55 U/L 40-150 (test code = 6768-6) AST (test code = 21 U/L 5-34 Specimen sl ightly 1920-8) hemolyzed ALT (test code = 15 U/L 6-55 Specimen sl ightly 1742-6) hemolyzed TIGIST (test code = TIGIST) Property Adjuster ID - DESHAWN Karrie Lab Interpretation Abnormal (test code = 66920-8) [facility] METABOLIC [id number] 02:23:00 Test Item Value Reference Range Interpretation [...] S NOT APPLICABLE FOR DIALYSIS PATIEN TS. Property Adjuster ID - DESHAWN [facility] [id number] 02:23:00 Test Item Value Reference Range Interpretation [...] Specimen slightly (test code = 347) hemolyzed Property Adjuster SHALOM - DESHAWN WCBC W/PLT COUNT & AUTO VAWOVYWIMMLK6253-33-83 02:01:00 Test Item Value Reference Range Interpretation [...] PERCENT (BEAKER) (test code = 2801) CHEM IMLPC2863-67-85 02:31:0028.0[facility] GbxdodyRBZCKR3048-60-25 00:25:0061 [facility] PnjszrdBCFNRG4765-94-72 00:25:22343Xohcuvyf KuncepfRZZDDY2155-98-92 00:25:0051[facility] KekfpilWMNATB0843-98-74 00:25:00 Test Item Value Reference Range Interpretation Comments CHD Risk (test code = CHD Risk) 4.08 1 4.00-7.30 [facility] DgnuzrdYBCUZN4563-17-50 00:25:83048Vjnymzjv EnxflanDIXDIG4898-11-91 00:25:00 Test Item Value Reference Range Interpretation Comments VLDL (test code = VLDL) 12 1 [facility]annSPECIAL HFVIBGGVF2782-60-79 00:25:006.2[facility] HermannANEMIA NPIIG3419-58-61 15:33:52102Bityijui HermannCHEM QVBMY1031-12-24 15:33:00<10.0 [facility]annCHEM ODMDX4718-15-47 15:33:0084[facility] HermannCHEM PANEL 2019-07-08 15:33:0016[facility] HermannCHEM JUDPJ4602-71-47 15:33:001.20[facility]annCHEM TLWAC6746-34-00 15:33:99090Pcxkoxvd HermannCHEM SXGPS1463-30-60 15:33:004.0[facility] HermannCHEM GSRWB1031-02-82 15:33:09558Ikpsuvtc HermannCHEM FPFXS2042-99-71 15:33:0027[facility]annCHEM KRDIW6737-20-20 15:33:009.8 [facility]annCHEM XEEPI3532-37-75 15:33:0012.0[facility] HermannCHEM PANEL 2019-07-08 15:33:0062[facility] EbxcaxjNAIQHGNUYB8277-80-55 15:33:005.0[facility] DegtbflHGMBQCEZOH8970-39-48 15:33:004.22[facility] VsgfdgxFJRKTNJBFF6459-20-81 15:33:0012.6[facility] WjfjfvuAGYBXKUDMJ6119-49-58 15:33:0037.4[facility] MIBDDCXTIG5905-11-16 15:33:0088.6[facility] ZqlmrdeJYJRCHEJDL8231-96-13 15:33:00 Test Item Value Reference Range Interpretation Comments MCH (test code = MCH) 29.9 pg 27.0-31.0 [facility] PslbalqDTBUDTKFNT9155-42-13 15:33:0033.7[facility] HermannHEMATOLOGY 2019-07-08 15:33:0015.2[facility] YwinprcKDXQSRGGEH2198-56-78 15:33:29132Clvagclh DiziwqfXAUAXBMZPI2002-46-16 15:33:008.0[facility] JoyiuffESUJUHGOQV8059-20-16 15:33:0062.8[facility] GkscankIYVWLXTEBD1235-02-26 15:33:0024.6[facility] KNHKDCGONT1277-73-00 15:33:0010.1[facility] YpagnlgQCEUCUVNFD4475-81-93 15:33:00 1.9[facility] HyzalqhDNVVYRGZGY1182-75-06 15:33:000.6[facility] HermannHEMATOLOGY 2019-07-08 15:33:003.1[facility] AqdituyHFLPPJHFRY8001-83-99 15:33:001.2[facility] TnavtebUJNOFRWHWP6696-71-90 15:33:000.5[facility] WvsbyxeJWROTTCKSN7148-72-80 15:33:000.1[facility] HermannCHEM MCBVJ5167-21-98 11:10:0095[facility] HermannCHEM WCZBP1614-96-48 11:10:0011[facility] HermannCHEM HALBQ6535-98-08 11:10:001.03 [facility]annCHEM DNTTU3967-32-77 11:10:33414Oikvsxyv HermannCHEM PANEL 2019-07-07 11:10:003.7[facility] HermannCHEM RARNP3612-06-25 11:10:57779Ihjlueeo HermannCHEM PRIOB2768-90-14 11:10:0027[facility] HermannCHEM JOUAY1259-48-62 11:10:009.8[facility] HermannCHEM SFYQG0541-15-73 11:10:006.6[facility] HermannCHEM HNGDU6692-62-42 11:10:003.4[facility] HermannCHEM ABSDB9853-59-50 11:10:0019 [facility] HermannCHEM GUYHL3234-96-42 11:10:0016[facility] HermannCHEM PANEL 2019-07-07 11:10:0070[facility] HermannCHEM UKETH6532-59-26 11:10:000.7[facility] HermannCHEM XTNJO9273-91-53 11:10:009.7[facility] HermannCHEM KHKJA4691-44-35 11:10:00 Test Item Value Reference Range Interpretation Comments B/C Ratio (test code = B/C Ratio) 11 1 6-25 [facility]annCHEM YKSIF1659-12-82 11:10:003.2[facility] HermannCHEM PANEL 2019-07-07 11:10:00 Test Item Value Reference Range Interpretation Comments A/G Ratio (test code = A/G Ratio) 1.1 1 0.7-1.6 [facility]annCHEM XYWLW9644-81-43 11:10:0075[facility] HermannHEMATOLOGY 2019-07-07 11:10:004.9[facility] IpuovurLPUZYPFBUG3735-51-24 11:10:004.14[facility] CsqooudSHQZRYWLPJ7158-69-23 11:10:0012.1[facility] YiewlvbZLUGFUKDUJ6692-69-93 11:10:0036.7[facility] JuujjulABIAEZAEHJ3907-21-00 11:10:0088.6[facility] [place] BBMPEMBLTJ4446-69-44 11:10:00 Test Item Value Reference Range Interpretation Comments MCH (test code = MCH) 29.3 pg 27.0-31.0 [facility] IaglwfvCZWMHZAVGL8043-56-12 11:10:0033.1[facility] HermannHEMATOLOGY 2019-07-07 11:10:0014.8[facility] DsiosudBDCZCNZAUS0258-83-62 11:10:63002Mjylmkcu UeeordcYHUEFULHMR8058-51-10 11:10:007.9[facility] IkabkhgMFTQHEAWMK3138-05-02 11:10:0051.1[facility] DaqyjevUEECPDNLNW7453-36-76 11:10:0029.1[facility] [place] OVXSXPFQLC8974-09-87 11:10:0016.1[facility] VbjwuirTYRCNXZKLC1499-99-20 11:10:00 3.1[facility] VhydfuwWRCWWKHGML6056-37-01 11:10:000.6[facility] HermannHEMATOLOGY 2019-07-07 11:10:002.5[facility] PatskhvHDOBICCRPU1399-09-49 11:10:001.4[facility] XbdegmwGODRGODVOA3324-26-75 11:10:000.8[facility] OymriksANQOZBDNNC7859-30-84 11:10:000.2[facility] HpoeiiuUJUCQZUDXW8510-50-31 11:10:000.34[facility] URINE AND NSUKA8234-80-79 11:05:00Colorless *NA*(07/07/19 6:05 AM)[facility] AND NWXPY8477-02-61 11:05:00Clear (07/07/19 6:05 AM)[facility] URINE AND TMWAZ2396-47-72 11:05:00 Test Item Value Reference Range Interpretation Comments UA Spec Grav (test code = UA Spec 1.005 1 Grav) [facility] AND NDBOZ9249-79-03 11:05:00 Test Item Value Reference Range Interpretation Comments UA pH (test code = UA pH) 8.0 1 5.0-8.0 [facility] AND HJXFJ5565-76-08 11:05:00Negative (07/07/19 6:05 AM) [facility] IGDEA5888-48-66 11:05:00Negative *NA*(07/07/19 6:05 AM) [facility] QAVSL9087-08-62 11:05:00Negative *NA*(07/07/19 6:05 AM) [facility] YZAOR5078-20-99 11:05:00Negative *NA*(07/07/19 6:05 AM) [facility] RIZMB3412-63-67 11:05:00Negative (07/07/19 6:05 AM) [facility] HLALZ4198-45-83 11:05:00Negative (07/07/19 6:05 AM) [facility] OWFBV1306-80-21 11:05:00Negative (07/07/19 6:05 AM) [facility] HRKRG1344-57-34 11:05:00Performed (07/07/19 6:05 AM) [facility] VLRXU7289-63-90 11:05:00<1[facility] AND TQMIA5266-87-70 11:05:001[facility]UR[facility] AND GVYQF7688-30-57 11:05:00None Seen (07/07/19 6:05 AM)[facility] HermannCHEM WISYN9761-48-73 14:26:0086[facility] HermannCHEM BSJFL4283-04-72 14:26:0015[facility] HermannCHEM DNHWY7722-50-80 14:26:000.90[facility] HermannCHEM SDEHG8003-83-32 14:26:41875Gxjpmrjd HermannCHEM XZDOO8348-66-49 14:26:004.1[facility] HermannCHEM NHVAV4683-16-76 14:26:69290 [facility]annCHEM LOEZE8667-04-33 14:26:0030[facility]annCHEM PANEL 2019-05-27 14:26:009.2[facility] HermannCHEM DGTIS8415-14-67 14:26:009.1[facility] HermannCHEM AWEZM6265-38-48 14:26:0089[facility] HermannCHEM DUYTH0253-39-61 12:40:0090[facility] HermannCHEM TANGN2761-07-17 12:40:0016[facility] HermannCHEM ICEEX0185-63-15 12:40:000.90[facility] HermannCHEM EVSZC8388-67-69 12:40:24292 [facility]annCHEM DOGBV0405-52-53 12:40:003.9[facility] HermannCHEM PANEL 2019-05-26 12:40:0098[facility] HermannCHEM PDXJD6543-84-26 12:40:0030[facility]annCHEM ITRLW6091-16-27 12:40:009.3[facility] HermannCHEM NVIZU3090-08-47 12:40:009.9[facility]annCHEM DHQEK7800-52-57 12:40:0089[facility]annCHEM MXRFW4336-48-38 15:43:13189Lxxrwtuq HermannCHEM DXZJA0074-40-66 15:43:0016 [facility]annCHEM YPCDV2234-77-06 15:43:000.90[facility] HermannCHEM PANEL 2019-05-25 15:43:53042Qqxecxol HermannCHEM ZNTZA8875-96-85 15:43:004.5[facility] HermannCHEM VDKZL2997-89-11 15:43:0097[facility] HermannCHEM XKDVD0472-26-83 15:43:0028[facility] HermannCHEM WDGBO7439-02-58 15:43:008.7[facility] HermannCHEM FWKRJ2672-24-01 15:43:0011.5[facility] HermannCHEM UAMOC1469-98-56 15:43:0089 [facility]UR[facility] AND PRUDY5459-54-95 21:24:00Marked *ABN*(05/23/19 3:24 PM) [facility] QFHVI0393-68-01 21:24:00 Test Item Value Reference Range Interpretation Comments UA Spec Grav (test code = UA Spec 1.013 1 Grav) [facility] ICAQF3870-37-42 21:24:00 Test Item Value Reference Range Interpretation Comments UA pH (test code = UA pH) 8.0 1 5.0-8.0 [facility] AND KFMSM0806-81-97 21:24:00Negative *NA*(05/23/19 3:24 PM) [facility] MHDIS3060-12-78 21:24:00Negative (05/23/19 3:24 PM) [facility] LBZMZ6475-05-24 21:24:00Negative (05/23/19 3:24 PM) [facility] SBIKD7775-78-74 21:24:00Negative (05/23/19 3:24 PM) [facility] QQJMP4378-76-95 21:24:001[facility]UR[facility] AND PCPLZ4170-06-85 21:24:00<1[facility]UR[facility] AND BXXIA5301-30-29 21:24:00 Performed *NA*(05/23/19 3:24 PM)[facility] AND WPCON2205-05-79 21:24:00 <=1.0[facility] HermannCHEM QWERS8989-35-93 12:15:006.1[facility] HermannCHEM FMBIY4273-13-16 12:15:002.8[facility] HermannCHEM KTFBH6135-41-09 12:15:0013 [facility]annCHEM LYEBQ8481-72-34 12:15:0023[facility] HermannCHEM PANEL 2019-05-21 12:15:0080[facility] HermannCHEM IFVYR9608-78-98 12:15:000.4[facility] HermannCHEM NNTJP9181-99-46 12:15:00 Test Item Value Reference Range Interpretation Comments B/C Ratio (test code = B/C Ratio) 20 1 6-25 [facility]annCHEM TGZJW1405-33-13 12:15:003.3[facility] HermannCHEM PANEL 2019-05-21 12:15:00 Test Item Value Reference Range Interpretation Comments A/G Ratio (test code = A/G Ratio) 0.8 1 0.7-1.6 [facility]annCHEM WNNWY6424-20-77 09:21:001.9[facility] HermannCHEM PANEL 2019-05-20 09:21:003.1[facility] QjmxksfLWLIGMNFBE1548-33-73 09:21:005.8[facility] YdcbovzETEUZEXYKB1336-71-87 09:21:004.01[facility] IqcshiuGZMPPLHZTA3306-70-22 09:21:0012.0[facility] KrumifcELJNXHMQZY0843-99-59 09:21:0036.5[facility] Master TINGLOCZTZ9455-92-64 09:21:0091.1[facility] WmqiwobHMAYDOFTJX6495-15-28 09:21:00 Test Item Value Reference Range Interpretation Comments MCH (test code = MCH) 29.9 pg 27.0-31.0 [facility] QhxbihmWEUJRGIGIX5353-32-58 09:21:0032.8[facility] HermannHEMATOLOGY 2019-05-20 09:21:0016.0[facility] KbotnzgMSGDMCIGNZ1497-61-64 09:21:48799Pmtbahcj AdvbycnNXACLSDAFZ7630-87-13 09:21:008.2[facility] YfbquqgBSLNXAVORY4214-31-81 09:21:0065.6[facility] YqhiskkKAOUFUXAIT1895-18-99 09:21:0018.2[facility] [place] [facility] JFRJIRBDXX8675-27-99 09:21:0013.8[facility] TkqevryAHNZABPCKD1605-56-39 09:21:00 2.3[facility] RgvudbmAFQAEQOCMY6258-27-23 09:21:000.1[facility] 2019-05-20 09:21:003.8[facility] XwiwxgyIAIXPKEDVW9534-58-38 09:21:001.0[facility] DgjumfnQFXZPUULFU9308-09-78 09:21:000.8[facility] HvvdldgLZVICMVILF3109-40-72 09:21:000.1[facility] YyhwowmKLMWNBXDWY8993-35-18 09:21:000.0[facility]annCHEM PBGVA5203-32-12 07:15:002.4[facility]annCHEM SIEUA6302-01-01 07:15:002.7 [facility] LytxsztDYIDKNKJKD4110-45-98 07:15:0056.8[facility]annHE[facility]OLOGY 2019-05-19 07:15:0025.9[facility] VqhfjptLQTROCOJPF5397-45-39 07:15:0014.8[facility] PoysxzrMLXNUIHVSW3126-58-79 07:15:002.4[facility] OufekflKZCMXHUMEN2752-58-51 07:15:000.1[facility] RmkglagPXSUJPZAVZ4099-50-60 07:15:002.7[facility] EVXNINYOEO7379-94-30 07:15:001.2[facility] SrjzanuUEKVANAIPR4370-61-15 07:15:000.7 [facility] ZhpgxztBYGILYAUEZ6082-58-76 07:15:000.1[facility]HE[facility] 2019-05-19 07:15:000.0[facility] FyjxymzNSYGAQPXIB8346-95-36 07:15:004.8[facility] DzslfnzZKZVJYJBHW0288-82-91 07:15:004.59[facility] LbvzeklNALWKBWBDD4130-69-41 07:15:0014.0[facility] LpiylrxCESDQPNTLW6325-92-02 07:15:0041.5[facility] HKHZCHFYTL6343-90-71 07:15:0090.4[facility] WqpdhfyIYJPEQNINL4332-54-10 07:15:00 Test Item Value Reference Range Interpretation Comments MCH (test code = MCH) 30.5 pg 27.0-31.0 [facility] UbkrosrCWUKEXGVYH6024-66-26 07:15:0033.7[facility] 2019-05-19 07:15:0016.0[facility] VcxnemvWTECKFHOGC7148-20-12 07:15:11745Iqaxlhqz IleanocOFMKXWSTNF8290-04-66 07:15:008.6[facility]annPARATHYROID PROFILE 2019-05-19 07:15:001.31[facility]annPARATHYROID XIRPZYT8194-01-41 07:15:00 1.32[facility]annCHEM TIXUY4238-48-58 08:37:002.3[facility]annCHEM PANEL 2019-05-18 08:37:003.3[facility] YzyujueKUJCVZRXWP8034-13-12 08:37:0054.1[facility] RbqfsvmSEJKQAZJDE8637-09-59 08:37:0028.3[facility] EfozijxSHXOOFUASR9455-26-94 08:37:0013.8[facility] AoadapwVTHBBJOVLU8055-87-55 08:37:003.3[facility] BFUYXRGRUC9312-41-70 08:37:000.5[facility] VipberyPJHNFZBDAQ2549-94-77 08:37:002.5 [facility] QmvsukmSGJNYWTVXU0015-97-38 08:37:001.3[facility]annHEMATOLOGY 2019-05-18 08:37:000.7[facility] OqhnnxyULRQLONCPT7291-90-11 08:37:000.2[facility] CydumrtUPOYVUEDEA9273-10-97 08:37:000.0[facility] RcdrprgKICZQKHSQE6110-14-03 08:37:004.7[facility] QwzqwtfQUMUOMQAXR0249-86-61 08:37:003.73[facility] NUCWIBBTHF7013-85-54 08:37:0011.2[facility] JkupeaaQKITLMNVWM3126-79-26 08:37:00 33.8[facility] AhyxflqEXNXJWSCCO5864-54-94 08:37:0090.4[facility]annHE[facility] 2019-05-18 08:37:00 Test Item Value Reference Range Interpretation Comments MCH (test code = MCH) 29.9 pg 27.0-31.0 [facility] TcfhnbyXQZFZJLZMB0639-84-75 08:37:0033.1[facility] HermannHEMATOLOGY 2019-05-18 08:37:0015.7[facility] AfettwqVFHMALXSEF3842-50-81 08:37:65084Svuwtwdq KtyygahGELLSRXFYD0627-19-95 08:37:008.3[facility] HermannPARATHYROID PROFILE 2019-05-18 08:37:001.16[facility]annPARATHYROID BOUFSHW8268-36-09 08:37:00 1.16[facility] HermannBACTERIAL - WARJNYSA6890-89-03 17:12:00Negative (05/17/19 11:12 AM)[facility]annCARDIAC KIWYNZW7506-59-98 17:12:00<0.02[facility]annCARDIAC TDVUNXJ4344-10-71 17:12:0030[facility]annCHEM JUJWS9020-57-57 17:12:006.3[facility] HermannCHEM IPIHM3395-85-49 17:12:003.1[facility] HermannCHEM UTEKO8996-39-85 17:12:0017[facility] HermannCHEM EIQED7977-99-89 17:12:0019 [facility]annCHEM APGJM0532-74-67 17:12:0095[facility]annCHEM PANEL 2019-05-17 17:12:000.4[facility] HermannCHEM EFAWB9339-49-40 17:12:00 Test Item Value Reference Range Interpretation Comments B/C Ratio (test code = B/C Ratio) 23 1 6-25 [facility] OZGDU3795-98-87 17:12:003.2[facility]annCHEM PANEL 2019-05-17 17:12:00 Test Item Value Reference Range Interpretation Comments A/G Ratio (test code = A/G Ratio) 1.0 1 0.7-1.6 [facility]CHE[facility] KWJFH9177-48-67 17:12:0014.0[facility]annCHEM PANEL 2019-05-17 17:12[facility]001.1[facility] AQQVW6367-23-60 17:12:00<0.05 [facility]CHE[facility] QDIBZ7387-39-51 17:12:05156Uvlvwtsd HermannENDOCRINOLOGY 2019-05-17 17:12:0013.3[facility] GrqytrqKBAARHXNMJ0272-51-07 17:12:00 Test Item Value Reference Range Interpretation Comments PT (test code = PT) 13.9 s 12.0-14.7 [facility] CenterSrofgfhECUGICOJYH4478-12-19 17:12:00 Test Item Value Reference Range Interpretation Comments INR (test code = INR) 1.07 1 0.85-1.17 [facility] CenterUkniprmVULFRGLQAA5051-28-00 17:12:00 Test Item Value Reference Range Interpretation Comments PTT (test code = PTT) 30.1 s 22.9-35.8 [facility] CenterannTNLECULAR QCHMPBEOLT3867-57-58 17:12:00Nasophrngl Swb *NA*(05/17/19 11:12 AM)[facility] HermannMOLECULAR YTSWGOYGFO7868-17-25 17:12:00 Negative *NA*(05/17/19 11:12 AM)[facility]annMOLECULAR QFBNCIPMAL8672-29-42 17:12:00Negative *NA*(05/17/19 11:12 AM)[facility]annMOLECULAR DIAGNOSTIC 2019-05-17 17:12:00Negative *NA*(05/17/19 11:12 AM)[facility]annPARATHYROID HRTUUDZ3396-34-33 17:12:001.15[facility] HermannPARATHYROID VDLKQWT4722-79-35 17:12:001.12[facility]annSPECIAL YNYGQMMUX2374-26-22 17:12:005.8[facility]annURINE MDMG9385-20-71 17:12:92978Jqbdzzgl HermannURINE MDCC3972-00-46 17:12:57161Ralymfna HermannCHEM KAEQZ8460-52-94 11:10:43129Pofxpdnf HermannCHEM IOLXI9070-95-82 11:10:0021[facility] HermannCHEM AAALE7697-22-24 11:10:000.99 [facility]annCHEM MUQBU6791-12-72 11:10:04094Godqtcyr HermannCHEM PANEL 2019-04-10 11:10:004.2[facility] HermannCHEM RSOLA2674-59-57 11:10:89320Ghvsfdvo HermannCHEM HNXMH4132-65-03 11:10:0028[facility] HermannCHEM TAYNX6698-90-36 11:10:009.2[facility] HermannCHEM ZGMCJ4475-28-74 11:10:0079[facility]annCHEM DEKIV0969-74-78 11:10:0011.2[facility] WvvgyqwTXECQRYDRU6983-68-81 11:10:0010.3 [facility] VmzpszpSNEEQCOZVS9650-26-20 11:10:003.52[facility]annHEMATOLOGY 2019-04-10 11:10:0011.3[facility] YqmqnneXGZTQWVJXR1769-09-20 11:10:0034.0[facility] IdmaohcANKNNFKGOR2080-73-57 11:10:0096.6[facility] HyhrcrbACZPAIZERQ6295-44-89 11:10:00 Test Item Value Reference Range Interpretation Comments MCH (test code = MCH) 32.1 pg 27.0-31.0 [facility] QvirtzbMHPDDTVVAR3056-92-74 11:10:0033.2[facility] HermannHEMATOLOGY 2019-04-10 11:10:0017.2[facility] KamrgdkWBUCYHLJCE1697-02-66 11:10:92627Sqdoftez OxqsfloQLPBGMQZUX5865-96-29 11:10:008.4[facility] WbbdxmgVAQCPSYLGO6477-43-00 11:10:0077.2[facility] IfpafcbXPVXMDQBLE6015-23-16 11:10:0013.4[facility] [place] ANGKBEVXTC0281-03-79 11:10:008.1[facility] ZtcmpwmCLFYXWIYSY6413-62-23 11:10:000.9 [facility] XriddlbUMJTBYJIMK1635-67-41 11:10:000.4[facility] HermannHEMATOLOGY 2019-04-10 11:10:008.0[facility] RlfqnjmSEBVBUMDUC6216-34-98 11:10:001.4[facility] IegavcjYPLHWTWZGZ7803-00-74 11:10:000.8[facility] XabcsldNYWMAZTZTT9916-50-44 11:10:000.1[facility] UkpbaakQAWKAOHKDF7039-54-80 23:57:0012.0[facility] Master BZVPTZJFYY2869-37-94 23:57:0034.8[facility] AtriptdMOLAEOSTIB9051-90-81 16:29:00 11.1[facility] TmammfwGKCJWWIJAY8309-06-52 16:29:0032.7[facility] HermannBLOOD BANK VNWCUEL4266-42-66 21:14:00Negative (04/08/19 3:14 PM)[facility] Master XSUOLBNBOHAJ3178-69-01 21:14:0010.7[facility] UvwmrbsHGPTGNJFGXIF2050-40-19 21:14:00 Test Item Value Reference Range Interpretation Comments B/C Ratio (test code = B/C Ratio) 22 1 6-25 [facility] NxxquomVBBFYSOSFDON0877-88-75 21:14:004.4[facility] HermannELECTROLYTES 2019-04-08 21:14:00 Test Item Value Reference Range Interpretation Comments A/G Ratio (test code = A/G Ratio) 0.7 1 0.7-1.6 [facility] CohaooqMUYEPEZUXXYX7841-09-09 21:14:68854Kmliiavr HermannELECTROLYTES 2019-04-08 21:14:0023[facility] OafnmucQIBJNQAWNAZH6225-89-11 21:14:001.04[facility] ZnoufewVKDAFQVKGMIN1766-20-70 21:14:72844Dfohtpyi TebjlbzTRHVXKVAVRXP0215-51-93 21:14:004.7[facility] QmhdtmpFXQGLYMVERRN0754-57-86 21:14:18999Vgjbzszz [place] EAVCRYUPGZWH3000-71-73 21:14:0028[facility] IvabbxnDSNKTZNAWRCB5498-78-79 21:14:00 9.6[facility] UuzdnyfWUYADPSJAPVM3875-91-00 21:14:007.5[facility] [place] XLZLJNEMONQU6114-14-98 21:14:003.1[facility] SvhqzfrEUVQVEWCOLZF7504-97-59 21:14:0032[facility] CwhoasjRNMNROXRNAPW5516-11-45 21:14:0027[facility] [place] WEFFBBKMYIEK6222-42-00 21:14:0099[facility] JfisuykXYQJRNDGLETF3232-13-42 21:14:00 0.2[facility] BeykfkfLGVNCZHTZJSN8395-34-71 21:14:0075[facility]annHEMATOLOGY 2019-04-08 21:14:007.0[facility] LkbsirnLAVJILPPVS1062-78-62 21:14:003.79[facility] SzrcnrgKNKUUAHOFX8051-90-84 21:14:0096.3[facility] XyktqnxJHVSLVDNLS4197-42-63 21:14:00 Test Item Value Reference Range Interpretation Comments MCH (test code = MCH) 32.4 pg 27.0-31.0 [facility] WeyfyeyTLNZFLEMWO2563-96-22 21:14:0033.7[facility] HermannHEMATOLOGY 2019-04-08 21:14:0017.0[facility] GniiaglFBBMBDZLDQ3895-56-35 21:14:92588Jdfjpptt SmifnwqETSQPQMXKO3719-11-72 21:14:008.4[facility] CvaaaiyIFLKYVWJIQ4711-61-60 21:14:00 Test Item Value Reference Range Interpretation Comments INR (test code = INR) 1.12 1 0.85-1.17 [facility] VlalinoWQVOLENPVQ5080-37-10 21:14:00 Test Item Value Reference Range Interpretation Comments PT (test code = PT) 14.5 s 12.0-14.7 [facility] ObozyslJGUHIAGIEY7256-63-24 21:14:00 Test Item Value Reference Range Interpretation Comments PTT (test code = PTT) 28.5 s 22.9-35.8 [facility] HbwhcduTKBWDHRUVF1427-53-75 21:14:0067.5[facility] HermannHEMATOLOGY 2019-04-08 21:14:0020.3[facility] ZykpxlrCURFHJNXCH6398-63-68 21:14:0010.2[facility] TgfdfytJRIXRMYVHM1292-46-60 21:14:001.4[facility] HhawclpXGYSLFUBFI2405-62-10 21:14:000.6[facility] WmzhcjvDEQUHAIWMC4531-57-24 21:14:004.7[facility] Master EWDNRFXJTX8090-95-16 21:14:001.4[facility] HohbpcsPAEZFEWVWG4065-33-14 21:14:000.7 [facility] YovreztYFMFYWXYKV9366-85-96 21:14:000.1[facility] HermannURINE AND STOOL 2019-04-08 21:14:00Positive *ABN*(04/08/19 3:14 PM)[facility] HermannCHEM PANEL 2019-04-06 12:41:10234Wrvuzoho HermannCHEM YMBFX3447-26-71 12:41:0024[facility] HermannCHEM HBCBH1511-84-03 12:41:000.88[facility] HermannCHEM QZFON8351-06-83 12:41:30286Dlklrkwl HermannCHEM CSVBZ0243-60-44 12:41:004.3[facility] HermannCHEM DHIFN0118-59-36 12:41:31883Jhkyhmdm HermannCHEM JIXFL4629-04-90 12:41:0027 [facility]annCHEM IGZVQ1975-97-67 12:41:009.5[facility] HermannCHEM PANEL 2019-04-06 12:41:006.6[facility] HermannCHEM HAJVQ5402-00-61 12:41:002.9[facility] HermannCHEM CJFNT4445-60-68 12:41:0027[facility] HermannCHEM XVTMP4667-37-96 12:41:0021[facility] HermannCHEM PACAI6422-74-61 12:41:0082[facility] HermannCHEM RJCJU1780-64-24 12:41:000.4[facility] HermannCHEM RBZGC4247-09-99 12:41:0010.3 [facility] HermannCHEM QBNWW9666-48-63 12:41:00 Test Item Value Reference Range Interpretation Comments B/C Ratio (test code = B/C Ratio) 27 1 6-25 [facility] HermannCHEM ICGCJ2381-15-49 12:41:003.7[facility] HermannCHEM PANEL 2019-04-06 12:41:00 Test Item Value Reference Range Interpretation Comments A/G Ratio (test code = A/G Ratio) 0.8 1 0.7-1.6 [facility] HermannCHEM UEEDD8336-87-32 12:41:0090[facility]annHEMATOLOGY 2019-04-06 12:41:005.1[facility] HptgrrmJHZDJFRQHN2275-05-14 12:41:003.46[facility] VljnyvxXHLKWLHDZF4944-16-70 12:41:0011.0[facility] TxubzxsUKZEUWRFVW9510-26-92 12:41:0033.0[facility] UzdwwuhAGSOITDOUS8672-87-34 12:41:0095.2[facility] [place] DAYISXUJMX0802-06-93 12:41:00 Test Item Value Reference Range Interpretation Comments MCH (test code = MCH) 31.7 pg 27.0-31.0 [facility] YijdtafJWKXJNNJVQ5806-92-77 12:41:0033.3[facility] HermannHEMATOLOGY 2019-04-06 12:41:0016.6[facility] GwjzkgxZBCQOFTONS1100-29-03 12:41:47401Lyzxhqtd QsracdwXUXNUPBAHY4303-53-82 12:41:007.8[facility] SflelzjSBQKPGDMDE4617-81-34 12:41:0059.7[facility] SfirgwtYEZSFOCITV3433-43-69 12:41:0027.1[facility] [place] RZSOLOUJTO4443-66-71 12:41:009.9[facility] XmxrwidJTAVXQWNVH0170-79-13 12:41:002.5 [facility] GrjmigeOYDEKOKEBJ3446-16-31 12:41:000.8[facility] HermannHEMATOLOGY 2019-04-06 12:41:003.0[facility] TfuyearCNDJFOYFXP7125-00-85 12:41:001.4[facility] JkjrcqxAOCYSTOVWS4199-37-87 12:41:000.5[facility] HoueoikKBIUABMXKZ5215-66-37 12:41:000.1[facility] HermannCHEM JIXXN2522-15-31 10:25:0090[facility] HermannCHEM ETFBG9721-56-70 10:25:0024[facility] HermannCHEM QCERR3546-16-26 10:25:000.87 [facility] HermannCHEM DCWJN7436-18-84 10:25:15600Bfhkftej HermannCHEM PANEL 2019-04-06 10:25:005.3[facility] HermannCHEM UREPU7263-01-64 10:25:55877Oizqxsfh HermannCHEM RMRDS4130-62-88 10:25:0024[facility] HermannCHEM VQPJQ6641-79-06 10:25:0011.3[facility] HermannCHEM OLUOW4397-96-80 10:25:009.2[facility] HermannCHEM QVPHB6490-27-98 10:25:0090[facility] HermannCHEM LWJPW5946-78-53 16:57:32787 [facility] HermannCHEM FDSJB0070-48-27 16:57:0024[facility] HermannCHEM PANEL 2019-04-05 16:57:000.95[facility] HermannCHEM WKEUC6799-91-08 16:57:00692Wrhjglol HermannCHEM GJGPF9962-39-49 16:57:004.1[facility] HermannCHEM SFZEB7748-23-98 16:57:06093Ndqkvwiu HermannCHEM UYWIG6288-92-48 16:57:0026[facility] HermannCHEM ORLFO1934-27-28 16:57:009.1[facility] HermannCHEM ZBDRQ6727-99-16 16:57:0083 [facility]annCHEM SQTIN0113-29-93 16:57:0012.1[facility] HermannHEMATOLOGY 2019-04-05 16:57:005.5[facility] VwtuqljYKDTUXRKBA7991-48-00 16:57:003.47[facility] RdbgtqvIDWEBPGWHO9950-35-93 16:57:0010.7[facility] YbmpglcQINLTTHTIG2416-15-79 16:57:0032.9[facility] RdwnmqmNOLQERAOUU2165-24-74 16:57:0094.7[facility] Master LJRVQRFNLP3212-24-69 16:57:00 Test Item Value Reference Range Interpretation Comments MCH (test code = MCH) 30.9 pg 27.0-31.0 [facility] BaxswypMQKLTRTMRX6836-53-32 16:57:0032.6[facility] HermannHEMATOLOGY 2019-04-05 16:57:0016.6[facility] YxiedsfBCDXLMOBJG9072-47-36 16:57:35991Kptdktmo PxzhlctLDKGSEDCUU1110-60-14 16:57:007.6[facility] UgbahfgWZDDOCHSJK9243-64-72 16:57:0064.8[facility] WquftmjFCFANZJMTF6573-81-55 16:57:0024.8[facility] [place] SGCZIRDJJF4571-75-54 16:57:007.9[facility] EyjeykbLUMSRSDZRS8451-58-85 16:57:001.7 [facility] TyllpplZHLIKXUBKO1147-84-06 16:57:000.8[facility] HermannHEMATOLOGY 2019-04-05 16:57:003.5[facility] UposxxmQWCUCZKBOR7265-92-35 16:57:001.4[facility] ZnuatrlCRGNFNRSEO6810-45-39 16:57:000.4[facility] HicmybcHIBCJWTTJT5263-35-52 16:57:000.1[facility] SpowjrpCJFUGPLGER2082-85-32 10:31:005.2[facility] [place] QJNAUEVIUO8142-13-86 10:31:003.01[facility] JivbtblKPKJJTBYGO1845-30-60 10:31:00 9.8[facility] LfqnyehVRWGEJJUAU0751-25-03 10:31:0028.8[facility] HermannHEMATOLOGY 2019-04-04 10:31:0095.5[facility] UbxhqppODKBQJSLOE2024-37-02 10:31:00 Test Item Value Reference Range Interpretation Comments MCH (test code = MCH) 32.4 pg 27.0-31.0 [facility] RxeimusBKKPXQPKWR2960-38-73 10:31:0033.9[facility] HermannHEMATOLOGY 2019-04-04 10:31:0016.7[facility] BtpkbcvFTNDQJSDBI9672-75-54 10:31:66558Tagpatuz NrucegpSWXNFFJQZA1883-20-84 10:31:007.9[facility] OagulmxZIESAXKJSF5753-26-10 10:31:0056.8[facility] NeyuafbQNAHMCZRXN5185-32-08 10:31:0030.6[facility] RZBIFXCAVI4375-14-30 10:31:009.4[facility] ShhibvlNUYOVEELSN9123-23-25 10:31:002.2 [facility] MqtpoboTCKLYPCTXU7607-26-19 10:31:001.0[facility] HermannHEMATOLOGY 2019-04-04 10:31:003.0[facility] MrcqzhtMDSTDIGRQI7184-97-24 10:31:001.6[facility] EgplbjqEONOKQGKGA2465-34-04 10:31:000.5[facility] FvrsgpyBBOWIRWTLM7131-78-14 10:31:000.1[facility] UxcxuocQECKNFJUZY1918-90-16 10:31:000.1[facility] HermannCHEM ULKNJ7397-16-32 07:47:002.0[facility] HermannCHEM NAQMB0597-26-68 07:47:003.7 [facility] HermannPARATHYROID XCXBEUG7860-59-08 07:47:001.10[facility] [place] PARATHYROID RSLPRCG4132-48-82 07:47:001.15[facility] HermannCHEM WJKMB8191-31-57 07:24:002.0[facility] HermannCHEM HLJAW4706-26-97 07:24:003.5[facility] PARATHYROID WCSNKIF2435-74-49 07:24:001.21[facility] HermannPARATHYROID PROFILE 2019-04-02 07:24:001.25[facility] HermannCARDIAC ZWJCDUU2869-52-75 17:02:41473 [facility]annURINE UIXF5498-41-31 16:41:61578Fmxviaqa HermannCARDIAC ENZYMES 2019-04-01 05:31:0089[facility] HermannCHEM LCHCQ8894-97-60 05:31:001.8[facility] HermannCHEM CZAYH2782-55-07 05:31:003.1[facility] HermannPARATHYROID PROFILE 2019-04-01 05:31:001.16[facility] HermannPARATHYROID BBLJPLZ7633-32-16 05:31:00 1.20[facility]annURINE AND JEJZI1712-40-67 21:58:00Yellow *NA*(03/31/19 3:58 PM)[facility]annURINE AND JWCPU6392-43-44 21:58:00Slight Cloudy (03/31/19 3:58 PM)[facility]annURINE AND QOFVZ2205-52-32 21:58:00 Test Item Value Reference Range Interpretation Comments UA Spec Grav (test code = UA Spec 1.020 1 Grav) [facility]UR[facility] AND XFDOK6549-41-89 21:58:00 Test Item Value Reference Range Interpretation Comments UA pH (test code = UA pH) 7.5 1 5.0-8.0 [facility]URINE AND DZOMK6737-65-75 21:58:00Negative *NA*(03/31/19 3:58 PM)[facility]UR[facility] AND RHPJU6552-75-56 21:58:00Negative (03/31/19 3:58 PM) [facility] AND ACDIV3658-84-34 21:58:000.2[facility]annURINE AND JULIL3177-95-03 21:58:00Negative (03/31/19 3:58 PM)[facility]UR[facility] AND QULID7580-83-80 21:58:00Negative (03/31/19 3:58 PM)[facility]annUR[facility] AND FAZGJ1155-11-59 21:58:00None Seen (03/31/19 3:58 PM)[facility] HermannCHEM PANEL 2019-03-29 17:36:00 Test Item Value Reference Range Interpretation Comments B/C Ratio (test code = B/C Ratio) 18 1 6-25 [facility] HermannCHEM DRSVI3825-42-10 17:36:005.8[facility] HermannCHEM PANEL 2019-03-29 17:36:002.4[facility] HermannCHEM ICTAK7156-69-52 17:36:003.4[facility] HermannCHEM FHGSL2047-64-99 17:36:00 Test Item Value Reference Range Interpretation Comments A/G Ratio (test code = A/G Ratio) 0.7 1 0.7-1.6 [facility] HermannCHEM PPIKC9592-51-24 17:36:0017[facility] HermannCHEM PANEL 2019-03-29 17:36:0014[facility] HermannCHEM RHYGX1937-01-26 17:36:0081[facility] HermannCHEM XWDGY2970-89-88 17:36:000.4[facility] XahiezvGLAYSYKTXX9119-95-61 17:36:0045[facility] FtpmctdEKFAPHCSOS0495-11-50 17:36:0022.6[facility] HermannURINE FHHP9293-80-11 15:26:0099[facility]annURINE MMTA6598-26-67 15:26:56738 [facility]annURINE GJCX1620-66-04 15:26:0034.2[facility]annURINE CHEM 2019-03-29 15:26:33478Brscfypk HermannURINE GSDU6403-84-69 15:26:0052.60[facility] HermannCHEM DVKZI3928-99-43 14:40:36613Copqgskb HermannCHEM KYXIN7269-27-25 11:26:22223Apldkvbd HermannBLOOD BANK YZHHDJR7148-92-36 06:30:00Negative (03/29/19 12:30 AM)[facility] ZJHFXZTK6634-95-19 06:16:00 Negative (03/29/19 12:16 AM)[facility]GwktzctZCQSKWQLPT7038-71-24 06:16:000.1 [facility] HeightsNckbzphOUTCENYCEQ6512-90-69 03:36:00 Test Item Value Reference Range Interpretation Comments PT (test code = PT) 13.7 s 12.0-14.7 [facility] HeightsQznmdxoLCRIGGVLLF6611-51-37 03:36:00 Test Item Value Reference Range Interpretation Comments INR (test code = INR) 1.07 1 0.85-1.17 [facility] HeightsSogjvvvUGOHAFOKFV2303-39-99 03:36:00 Test Item Value Reference Range Interpretation Comments PTT (test code = PTT) 30.9 s 22.9-35.8 [facility] HeightsNprfrjlXKIUUQFJUK4041-86-19 03:36[facility]003.0[facility] 03:36:00 Test Item Value Reference Range Interpretation Comments ACT (TEG) Rapid (test code = ACT (TEG) 113 s 86-118 Rapid) [facility] HeightsKerhttnKJCXBDUSKE7600-67-93 03:36:00 Test Item Value Reference Range Interpretation Comments Split Point Rapid (test code = Split 0.5 min Point Rapid) [facility] HeightsYzvlwkmRVWGRDPIJI5490-81-90 03:36:00 Test Item Value Reference Range Interpretation Comments R-time Rapid (test code = R-time 0.7 min 0.4-0.7 Rapid) [facility] HeightsRoeelmkMOOCTWSLKX2980-05-47 03:36:00 Test Item Value Reference Range Interpretation Comments K-time Rapid (test code = K-time 1.5 min 0.6-2.3 Rapid) [facility] HeightsDyumrzrZJITDPPVDM6491-00-64 03:36:00 Test Item Value Reference Range Interpretation Comments Angle Rapid (test code = Angle 73 degrees 64-80 Rapid) [facility] HeightsBxzgadiHUXEPMEIXD3379-54-31 03:36:00 Test Item Value Reference Range Interpretation Comments Max Amplitude Rapid (test code = Max 62 mm 52-71 Amplitude Rapid) [facility] HeightsKrwfczlTYQQGRVGEB1820-38-02 03:36:008.2[facility] HermannCHEM PANEL 2019-03-29 02:53:20016Sermvhhf HermannURINE AND YIZPZ9734-17-27 23:27:00Yellow *NA*(03/28/19 5:27 PM)[facility]annUR[facility] AND MYCPS4271-56-30 23:27:00Clear (03/28/19 5:27 PM)[facility]annUR[facility] AND HLUFE4773-05-88 23:27:00 Test Item Value Reference Range Interpretation Comments UA Spec Grav (test code = UA Spec 1.010 1 Grav) [facility]UR[facility] AND PEWBG1051-59-92 23:27:00 Test Item Value Reference Range Interpretation Comments UA pH (test code = UA pH) 7.0 1 5.0-8.0 [facility]UR[facility] AND NKWHF0421-62-23 23:27:00Negative *NA*(03/28/19 5:27 PM)[facility]annUR[facility] AND NSHAZ1182-90-62 23:27:00Negative (03/28/19 5:27 PM) [facility]UR[facility] AND TOOJO7595-68-35 23:27:00Negative (03/28/19 5:27 PM) [facility]UR[facility] AND GDAZN3446-54-68 23:27:00Trace *ABN*(03/28/19 5:27 PM) [facility]UR[facility] AND OJPIC2361-09-23 23:27:008[facility]annURINE AND QAMCW9653-07-38 23:27:002[facility]annURINE UORY7031-25-26 23:27:0098[facility]annURINE MGLC8207-69-02 23:27:0039.2[facility]annURINE JPTI1596-14-95 23:27:72882Nqcvwhjo HermannURINE REOV7559-00-00 23:27:46589Zkvrhfdb [place] CARDIAC PADQYZI3926-80-91 22:09:00<0.02[facility] HermannCARDIAC ENZYMES 2019-03-28 22:09:0074[facility] HermannCHEM LSWMX0148-41-15 22:09:0095[facility] MprgtvuTAMRQHIZJB8554-68-85 22:09:005.8[facility] XwmxzvbPSNZNKFDIB9797-94-42 22:09:003.67[facility] FqbjbuhTYPFGTMYDP0131-94-36 22:09:0011.6[facility] Master UAUJSXRRMI7273-09-87 22:09:0033.4[facility] MfppschORZTJVDUOA6083-39-19 22:09:00 90.9[facility] GajjyntJCBSWJWDQC9017-67-76 22:09:00 Test Item Value Reference Range Interpretation Comments MCH (test code = MCH) 31.6 pg 27.0-31.0 [facility] CuawmlmATCTRZNSYE0980-49-42 22:09:0034.8[facility] 2019-[facility]-28 22:09:0016.5[facility] SdzukacMSDUCPCCWS3660-80-99 22:09:61596Iwdpokip IfsqpthEIQZUXUWAI0778-07-14 22:09:006.9[facility] FwfyfcdEDSPLGIZRP0092-17-36 22:09:00 Test Item Value Reference Range Interpretation Comments PT (test code = PT) 14.1 s 12.0-14.7 [facility] HepjvgyPFBIAQITQQ3588-30-28 22:09:00 Test Item Value Reference Range Interpretation Comments INR (test code = INR) 1.11 1 0.85-1.17 [facility] JnuuuduXSLIOAKCNI6150-00-67 22:09:0059.5[facility]Y 2019-03-28 22:09:0021.9[facility] RarlvnvLLTUHTQVYG6599-64-24 22:09:0016.3[facility] IzdrbqdZZSVADKJSM0413-40-20 22:09:001.8[facility] OptnvgxKSJXHPTUPV9539-03-80 22:09:000.5[facility] PahzrnlBIYIOMZUCI3170-16-73 22:09:003.5[facility] UIANCYRBFW8538-23-85 22:09:001.3[facility] JzvumfdKEOCQQEUWD8588-44-89 22:09:001.0 [facility] YgvcfgeIHHNFLPRBL9567-32-11 22:09:000.1[facility] 2019-03-28 22:09:000.0[facility]annCHEM RKSOD6365-57-06 22:07:24220Xilbbijk HermannCHEM UYTFP1625-50-41 22:07:0015[facility]annCHE[facility] GOMGW0801-45-69 22:07:000.77[facility]annCHE[facility] DLUOG8966-86-83 22:07:98322Pffkvjjx [facility] IFVYV5026-30-79 22:07:004.9[facility]annCHE[facility] ALXDU0477-05-92 22:07:0086 [facility] OYVTC4665-11-46 22:07:0026[facility]annCHE[facility] PANEL 2019-03-28 22:07:0012.9[facility]annCHE[facility] WEWPF5662-68-30 22:07:008.3[facility] SjpiqjxRJYZQIQAYATD5656-95-10 15:16:55905Bckdfrtx [facility] WLOWO4537-27-18 06:37:80747Kltrlsnz [facility] WCCVI8600-06-51 06:37:0022[facility]annCHE[facility] YLJWA7122-66-47 06:37:001.04[facility]annCHE[facility] IWDHT0493-15-67 06:37:36628 [facility] QWSTK7624-32-13 06:37:004.6[facility]annCHEM PANEL 2019-03-09 06:37:81450Ciiajziw [facility]CHE[facility] BTJLQ9901-25-22 06:37:0023[facility]annCHE[facility] HGOUN7943-54-04 06:37:008.1[facility]annCHE[facility] FQGTI7784-47-47 06:37:0075[facility]annCHE[facility] ZRIBB0724-48-90 06:37:0010.6[facility] YRAAKIFDOO6173-64-11 06:37:0075.8[facility] IikviarMGMYUERLAS9111-68-24 06:37:00 11.7[facility] EzfqotbAXUTUZGXYL1070-46-56 06:37:0010.9[facility]annHEMATOLOGY 2019-03-09 06:37:001.3[facility] AbovrgcNGOLBEHDRZ3708-64-97 06:37:000.3[facility] SwlxktwHDTWLETZEQ6230-67-75 06:37:006.1[facility] BjhbyuzGOREKVNNLF8672-64-96 06:37:000.9[facility] JtdctswZRWEQEZYCV3610-11-48 06:37:000.9[facility] USTHBDKCLX3643-83-73 06:37:000.1[facility] UbxbhucJQWRZGAFHG1696-32-65 06:37:008.1 [facility] ItvbtfxJCTDEWZHZS5484-52-67 06:37:002.86[facility]annHEMATOLOGY 2019-03-09 06:37:009.0[facility] MnednqjMABVKFPRHN3667-05-98 06:37:0027.2[facility] MqeaomkIGZCOXXYGV3363-87-29 06:37:0095.1[facility] DbdjxubUAKWOBHZHE1050-62-01 06:37:00 Test Item Value Reference Range Interpretation Comments MCH (test code = MCH) 31.5 pg 27.0-31.0 [facility] BfuaamaCLIIBTXJRP5292-25-41 06:37:0033.1[facility]annHEMATOLOGY 2019-03-09 06:37:0019.0[facility] DyshuypPRHIICYJEX4602-69-59 06:37:57263Yqzfqlke BjxlwecBIGZOCWRCW6962-13-49 06:37:0010.0[facility] JlmmyiyDKLJHYFMTXYM6362-35-22 22:16:00990Cwwehpzd EebmglxYQKSHEXNNI3050-02-14 17:18:008.5[facility] TANVRKOGSN2964-40-09 17:18:003.27[facility] AfsvjboQYJBTVFVCZ9919-27-62 17:18:00 10.2[facility] KhbdewnDSZAAYZVOX0167-92-27 17:18:0031.2[facility]annHEMATOLOGY 2019-03-08 17:18:0095.5[facility] QqoxgwsGKNZXJQFDK8836-12-19 17:18:00 Test Item Value Reference Range Interpretation Comments MCH (test code = MCH) 31.3 pg 27.0-31.0 [facility] NsqlkrvNAKTZMYDDI6348-28-88 17:18:0032.7[facility]annHEMATOLOGY 2019-03-08 17:18:0019.1[facility] OpuattaDUHUBMSDFD0758-30-75 17:18:24047Amkrrtwg IsyjtwoRJMQINHJSI6404-00-55 17:18:009.8[facility] ThdlpyqGVPULXLJEW3285-37-18 17:18:0076.3[facility] MghxnmpIUAFUZXIAH8344-44-82 17:18:0011.5[facility] NLEDCIAPAJ3251-58-00 17:18:0011.0[facility] GeyuqbsQZXLGDAWPV5640-64-55 17:18:00 1.0[facility] EswkfdfXXCSCFGOKH0898-21-23 17:18:000.2[facility]annHEMATOLOGY 2019-03-08 17:18:006.5[facility] QvvvxckBFBFBEEQSA1801-83-46 17:18:001.0[facility] VcqiibvJUNTCUGCAC8857-43-12 17:18:000.9[facility] HwvogvdNBGYEPGCLH5157-59-38 17:18:000.1[facility] LhajaizXJNEHYMAMT2900-95-39 11:13:0010.7[facility] AOZUPQHRGH9961-35-25 11:13:001.1[facility] XdfzppvUFJFPBVYPW9323-63-91 11:13:000.7 [facility] MfooyncTBCOECZIYZ2860-30-64 11:13:006.1[facility]annHEMATOLOGY 2019-03-08 11:13:000.9[facility] MkagfsjZCDLGVRVDC7784-72-68 11:13:000.9[facility] TxeqoaiTCRUSVYHHY4201-40-38 11:13:000.1[facility] CbbqfzrTMHBFNVLBN5264-11-95 11:13:000.1[facility] OdtfrdpYQEPKFSGHTJW3048-91-76 11:13:0010.7[facility] PBTBQEAASJOW5308-12-25 11:13:63591Nvhwqkdv GovztwrTOETJQJOKYXM0224-29-54 11:13:0022[facility] DxmktnjCIJGDTPAEFUK1001-59-27 11:13:001.26[facility] BWDTEHCIHDKU6889-00-43 11:13:004.7[facility] RldhczuVWPNRIHFCLEB9991-89-31 11:13:37933Zdbfobwl YqgyrzeHGWCNWWSGTGQ3453-64-31 11:13:0021[facility] SPPENXIZYIXT1692-27-85 11:13:007.9[facility] DuapmeyQNHZRGBHBADO4481-34-47 11:13:0059[facility] YamcaawVKLDNFJMNW4867-03-51 11:13:008.0[facility] JYENLMHGLQ1855-48-28 11:13:002.91[facility] DkivzxuQQBIQZHUKY7939-70-05 11:13:00 9.3[facility] ApnewknDTTSPXXPEE2961-39-79 11:13:0027.6[facility]annHEMATOLOGY 2019-03-08 11:13:0094.9[facility] IukkcmyCUIKAMQKWG8134-33-20 11:13:00 Test Item Value Reference Range Interpretation Comments MCH (test code = MCH) 32.0 pg 27.0-31.0 [facility] KzppijfNNZNCGOASM5791-79-31 11:13:0033.7[facility]annHEMATOLOGY 2019-03-08 11:13:0018.7[facility] MgiqyrcMXSHWVKBJG8619-54-60 11:13:18309Pbzmwbdb LydlntrBQMXVLSDPZ4483-85-47 11:13:0010.2[facility] UhicigtIDCKHRYGIS5539-99-68 11:13:0075.7[facility] JufshptAYBMNQHVQB0778-52-94 11:13:0011.8[facility] URINE XXXZ9061-24-14 03:14:60836Ncqygwvu HermannURINE PXJT2364-39-86 03:14:29232 [facility]annCHEM SDOPJ4078-02-68 12:13:38078Xqhscose HermannCHEM PANEL 2019-03-07 12:13:000.12[facility]annURINE AND MKTGL1459-21-94 23:39:00Yellow *NA*(03/06/19 5:39 PM)[facility] LBXXC8869-52-11 23:39:00Marked *ABN*(03/06/19 5:39 PM)[facility] GKJSV5961-22-67 23:39:00 Test Item Value Reference Range Interpretation Comments UA Spec Grav (test code = UA Spec 1.015 1 Grav) [facility] XOGDV3745-30-11 23:39:00 Test Item Value Reference Range Interpretation Comments UA pH (test code = UA pH) 7.0 1 5.0-8.0 [facility] JUYAX0299-50-73 23:39:00Negative (03/06/19 5:39 PM) [facility] ZWYGA9984-10-70 23:39:00Negative *NA*(03/06/19 5:39 PM)[facility] HIRNH7903-07-47 23:39:00Negative *NA*(03/06/19 5:39 PM)[facility] EUION2504-80-23 23:39:00Negative (03/06/19 5:39 PM) [facility] OCQVI3231-87-82 23:39:00<1.0[facility] IIDRW5625-86-82 23:39:00Negative (03/06/19 5:39 PM)[facility] RHQKV3000-81-48 23:39:00Negative (03/06/19 5:39 PM)[facility] SMILZ4879-77-85 23:39:00None Seen (03/06/19 5:39 PM)[facility]annHEMATOLOGY 2019-03-06 23:07:00 Test Item Value Reference Range Interpretation Comments PT (test code = PT) 12.4 s 12.0-14.7 [facility] WliqmyrSERONRWKEJ9510-29-72 23:07:00 Test Item Value Reference Range Interpretation Comments PTT (test code = PTT) 22.5 s 22.9-35.8 [facility] IwhfrqzMUJVJWSZWZ4363-79-17 23:07:000.1[facility]annCARDIAC ENZYMES 2019-03-06 23:07:000.02[facility]annCARDIAC YBRNWJG5672-73-35 23:07:0092 [facility]annCHEM INULH2288-73-24 23:07:001.3[facility] HermannELECTROLYTES 2019-03-06 23:07:0014.1[facility] RgssfvyXDVCJBKYCUHY1187-02-11 23:07:26687 [facility] EsdhujnZWYLTUPFGZOT6522-72-53 23:07:0023[facility] HermannELECTROLYTES 2019-03-06 23:07:001.22[facility] SilbtttYLOUJKSLHIKU0348-98-78 23:07:005.1 [facility] PruujouLLQVBDKWVXRO8403-96-69 23:07:14243Djneiiie HermannELECTROLYTES 2019-03-06 23:07:0022[facility] HovblwmYRVOQQWENXEO4104-52-71 23:07:008.6[facility] OedncasKUYYFTTFSSNC2308-46-48 23:07:0062[facility] FskaaleIGBQEYIUUI0445-92-04 23:07:00 Test Item Value Reference Range Interpretation Comments INR (test code = INR) 0.94 1 0.85-1.17 [facility] SwavwgjEIFYDEWYKO5209-85-64 21:50:0011.8[facility] HermannHEMATOLOGY 2019-02-28 21:50:002.97[facility] GvrbwqpCRCSFBHYZJ9017-96-99 21:50:009.0[facility] JmazckpUVQNGRULET4093-68-46 21:50:0028.0[facility] OejznbdMGQLSBJFUI0060-57-25 21:50:0094.1[facility] WjnnqmwIYSPGQCUVW6324-29-58 21:50:00 Test Item Value Reference Range Interpretation Comments MCH (test code = MCH) 30.2 pg 27.0-31.0 [facility] VywviouTQEYIIFPSS6865-69-35 21:50:0032.1[facility] HermannHEMATOLOGY 2019-02-28 21:50:0016.6[facility] CkkwuyrXGITYXGMNK2501-14-94 21:50:51063Aqmtwrsk UvckwseSYPXVNKQYX6067-16-18 21:50:009.9[facility] AfosxxaFVJANTOGTX7443-28-96 21:50:0078.3[facility] DiugzrsONDTRGPXGQ2149-02-17 21:50:0011.1[facility] [place] QQJSEJOTYE5861-98-10 21:50:008.7[facility] JcbwbjhSRYOIJKSOJ6418-31-85 21:50:001.3 [facility] ZwpwnkiCKPOKCTPUL9408-74-39 21:50:000.6[facility]annHEMATOLOGY 2019-02-28 21:50:009.2[facility] FplipiyMEZPNTVISP6182-18-66 21:50:001.3[facility] KcsxrauJPKONCASAN7618-83-76 21:50:001.0[facility] RauuramKKWTGZBOFI6647-97-23 21:50:000.2[facility] TinztogYXXTHMIPDV6918-53-83 21:50:000.1[facility] HermannCHEM IBLXS6190-04-85 14:45:000.25[facility] VvuxolfXTJIAFAADSIA0939-53-61 14:45:007.6 [facility] EjraumpDQCOUTPJAOGK7228-41-65 14:45:10214Ngmdjzub HermannELECTROLYTES 2019-02-28 14:45:0036[facility] OofrtmrSWDSUVPZFWVR1763-02-39 14:45:001.54[facility] BoqjlcjHQCQMLYZXFOL2098-97-30 14:45:86927Vkuzuhfi ZrzcqyuCAMIHIXUNSVN9862-56-45 14:45:004.6[facility] FihnrkfPLLWADZLZVEF7094-17-85 14:45:59501Nosoewnj [place] LOJPTVDWKOKN0845-76-65 14:45:0027[facility] TpuruauURKCNVSLXXMH6487-13-31 14:45:00 8.6[facility] GdxkdrcFUQEMFNQQPYX4307-78-27 14:45:0047[facility]annHEMATOLOGY 2019-02-28 14:45:009.8[facility] MyzkqbiFRAKAGZTLL5826-48-41 14:45:002.94[facility] JolsxldNOPZPWXLKB2457-88-91 14:45:009.0[facility] WugujrqFWJOBQRGJX6736-54-49 14:45:0027.6[facility] UqxzxgqOSACEIUJUS6768-99-64 14:45:0093.9[facility] HWYZDBRCMI0463-25-30 14:45:00 Test Item Value Reference Range Interpretation Comments MCH (test code = MCH) 30.6 pg 27.0-31.0 [facility] BqbfwppCTOJLJJZVP2434-33-25 14:45:0032.6[facility] HermannHEMATOLOGY 2019-02-28 14:45:0016.7[facility] BbmcdvvMABOSNGGOO0752-89-98 14:45:0077[facility] FbwgmkwHOLIBOHXNJ2141-09-73 14:45:009.8[facility] OwwwhubBXOAATUHPK0570-88-19 14:45:00Normal (02/28/19 8:45 AM)[facility] YhzrzvcXXBEWLQNXG6386-57-50 14:45:00 Normal (02/28/19 8:45 AM)[facility] LfmkgkwYTWHEPDBUU6926-66-98 14:45:0079.4 [facility] GvmgzaoCWHOVXGANO3813-16-88 14:45:0012.1[facility] HermannHEMATOLOGY 2019-02-28 14:45:007.0[facility] CfpcjorTOQDPMVEAK3482-25-34 14:45:001.0[facility] ZjpyyuuHPSBMLETKA0217-56-37 14:45:000.5[facility] DoqyiajKRKRIEOKCT3071-02-51 14:45:007.8[facility] UpzhavkARKKTOUVQG8531-40-60 14:45:001.2[facility] [place] FXRXNTFPSS3244-19-67 14:45:000.7[facility] TvimzfmQIWHSHGUKG7828-68-52 14:45:000.1 [facility] LiifqwrDMHDAHPDYS6635-48-85 14:45:000.1[facility] HermannCHEM PANEL 2019-02-28 10:00:000.29[facility] HermannCHEM DQSIA1368-11-22 06:32:000.41[facility] HermannCHEM SLGLZ5630-83-73 10:27:90074Tiyemwwo HermannCHEM OFSLW3353-32-97 10:27:0037[facility] HermannCHEM SFBNM6374-39-88 10:27:001.66[facility]annCHEM AFFOX8786-22-41 10:27:47332Ddixqjuo HermannCHEM YECED1391-17-00 10:27:004.9 [facility]annCHEM XTRFF4832-67-29 10:27:65482Ercijzxo HermannCHEM PANEL 2019-02-26 10:27:0026[facility] HermannCHEM KJJAQ7069-99-38 10:27:008.3[facility] HermannCHEM WIQUE7094-24-48 10:27:0042[facility] HermannCHEM XVMBB4857-54-14 10:27:007.9[facility] VsaaecgZBLBZCNOAS6756-46-31 10:27:0011.7[facility] [place] FHQZWEIRXM6200-90-63 10:27:002.73[facility] QqmmzzlOAMLWFEBHS3731-68-00 10:27:00 7.9[facility] DqusfebWGDMEWBXTL0823-13-02 10:27:0025.7[facility] HermannHEMATOLOGY 2019-02-26 10:27:0094.1[facility] VycqtbtMPCQRPRUJG9820-95-97 10:27:00 Test Item Value Reference Range Interpretation Comments MCH (test code = MCH) 29.1 pg 27.0-31.0 [facility] NttkkeuKHRCCOEYZH7868-40-22 10:27:0030.9[facility] HermannHEMATOLOGY 2019-02-26 10:27:0016.8[facility] EmdkvtrRYCCEXLUNG2838-56-57 10:27:05102Facflzfj PoioxufZPPTEOQUYU1448-91-65 10:27:0010.5[facility] FccmaliDEFSELUFKK5403-86-87 10:27:0081.9[facility] PtvfntvMPYVKSBPXB9100-85-36 10:27:008.6[facility] AFWPZUZGQU5622-13-41 10:27:007.9[facility] SsxvxitFPBZWLZGJZ2065-33-64 10:27:001.2 [facility] LqvrodsIWPLEJWKXQ1843-48-82 10:27:000.4[facility]annHEMATOLOGY 2019-02-26 10:27:009.6[facility] InrfrwpEBGQOFJPYO2515-36-64 10:27:001.0[facility] MtwornbNLGRDAFSJL7207-00-19 10:27:000.9[facility] EsqwrzbISECIBWHGD4978-86-97 10:27:000.1[facility] HermannCHEM RKQUW2717-90-42 11:00:99048Zulwzwst HermannCHEM TSKFN0704-75-89 11:00:0039[facility]annCHEM UYUXC5513-83-15 11:00:001.79 [facility]annCHEM NOCHB5996-11-58 11:00:26899Fpanguay HermannCHEM PANEL 2019-02-25 11:00:004.1[facility] HermannCHEM AONKU8088-82-42 11:00:67865Fvdsfsrh HermannCHEM TOUST4555-54-47 11:00:0026[facility] HermannCHEM OAHOM8503-28-84 11:00:007.9[facility]annCHEM AAOGV5732-63-30 11:00:0039[facility] HermannCHEM UKQXC7059-48-08 11:00:008.1[facility]annBLOOD BANK AUTMYDZ5529-57-44 10:26:00 Negative (02/23/19 4:26 AM)[facility]annCHEM PNNMC6167-80-00 10:26:002.4 [facility]annCHEM FDSWV9265-87-31 10:26:002.6[facility] HermannCHEM PANEL 2019-02-23 10:26:005.2[facility] HermannCHEM SBYEZ3763-96-28 10:26:002.4[facility] HermannCHEM KPDQE1743-40-23 10:26:0023[facility] HermannCHEM BUPEI4054-68-66 10:26:0041[facility] HermannCHEM MXXVY1092-58-14 10:26:0053[facility] HermannCHEM KKIIS0713-57-55 10:26:002.1[facility] HermannCHEM NUGOS4082-84-38 10:26:00 Test Item Value Reference Range Interpretation Comments B/C Ratio (test code = B/C Ratio) 20 1 6-25 [facility]annCHEM ZLQYW0811-33-45 10:26:002.8[facility] HermannCHEM PANEL 2019-02-23 10:26:00 Test Item Value Reference Range Interpretation Comments A/G Ratio (test code = A/G Ratio) 0.9 1 0.7-1.6 [facility] ZyvqyihBKNBZG2930-64-96 10:26:75242Pvishilx HermannCHEM LNLEW3755-25-84 07:32:002.6[facility] HermannCHEM VPPYF2548-29-65 07:32:002.7[facility] [place] ZIMTUP8034-97-73 07:32:98014Ssworkxe HermannPARATHYROID NYGUAQW7824-87-06 07:32:001.22[facility] HermannPARATHYROID YHLTGAD6570-09-05 07:32:001.24[facility] EotzmpnMYOJUQKNHI3925-13-10 12:43:00 Test Item Value Reference Range Interpretation Comments ACT (TEG) Rapid (test code = ACT (TEG) 97 s 86-118 Rapid) [facility] CenterLjnkmadVRBSMBEQIK5431-86-92 12:43:00 Test Item Value Reference Range Interpretation Comments Split Point Rapid (test code = Split 0.3 min Point Rapid) [facility] CenterFgllpyyISLEZRICKZ6134-22-42 12:43:00 Test Item Value Reference Range Interpretation Comments R-time Rapid (test code = R-time 0.5 min 0.4-0.7 Rapid) [facility]ShudaayXXTFNDWSGE4983-98-77 12:43:00 Test Item Value Reference Range Interpretation Comments K-time Rapid (test code = K-time 1.0 min 0.6-2.3 Rapid) [facility] HeightsGmeodsqOOOJSYQJTI2900-29-35 12:43:00 Test Item Value Reference Range Interpretation Comments Angle Rapid (test code = Angle 77 degrees 64-80 Rapid) [facility] HeightsOuijimaNIUOBTXNBL5995-70-07 12:43:00 Test Item Value Reference Range Interpretation Comments Max Amplitude Rapid (test code = Max 68 mm 52-71 Amplitude Rapid) [facility] HeightsFzdbcwpQUCNCSKWXL3088-96-24 12:43:0010.7[facility] 2019-[facility]-20 12:43:000.0[facility] CenterWsoeomhDXMLRBRDGF0986-89-23 12:20:00 Test Item Value Reference Range Interpretation Comments PTT (test code = PTT) 27.4 s 22.9-35.8 [facility] CenterCzwliaqIGKMJROAGE6647-62-52 12:20:00 Test Item Value Reference Range Interpretation Comments PT (test code = PT) 15.1 s 12.0-14.7 [facility] CenterSggyrcuGLDTGPWKYH2096-98-26 12:20:00 Test Item Value Reference Range Interpretation Comments INR (test code = INR) 1.21 1 0.85-1.[address] [facility]2019-11-05 10:44:002.6[facility] HermannCHEM PANEL 2019-02-20 10:44:002.7[facility] HermannPARATHYROID EXNQJQW0614-66-97 10:44:001.19 [facility] HermannPARATHYROID WOKQGJF3375-47-35 10:44:001.21[facility] HermannBLOOD BANK ZDVTSLT6111-73-13 10:03:00Negative (02/19/19 4:03 AM)[facility] [place] PARATHYROID BFLSLWP0172-22-72 09:06:001.23[facility] HermannPARATHYROID PROFILE 2019-02-19 09:06:001.27[facility]annBLOOD BANK MDDFRCP8708-14-54 10:00:00 Product available (02/17/19 5:00 AM)[facility] HermannCARDIAC YBJZZVW2739-57-80 08:12:000.04[facility] HermannCARDIAC DLOICWJ1523-66-89 08:12:871347Qhxpcsaf HermannCARDIAC ALZLOYK6904-00-28 08:12:004.7[facility] HermannCARDIAC ENZYMES 2019-02-17 08:12:00 Test Item Value Reference Range Interpretation Comments CK MB Index (test 0.3 1 See_Comment [Automate d message] The code = CK MB Index) system w [facility] generated this result transmit guillaume reference range : <=2.5. The reference range was not used to interpr et this result as jd l/abnormal. [facility]annURINE GYQS1188-30-67 08:12:0027[facility] 2019-02-17 08:12:15827.00[facility] AmpytmmSGPUPXYQJM5655-53-64 07:56:00 Test Item Value Reference Range Interpretation Comments R-time (test code = R-time) 4.3 min 5.0-10.0 [facility] MvhhxnlETNWJMWNOX5073-53-57 07:56:00 Test Item Value Reference Range Interpretation Comments K-time (test code = K-time) 2.2 min 1.0-3.0 [facility] WebwbcuVQUEYYWPNX6299-20-17 07:56:00 Test Item Value Reference Range Interpretation Comments Angle (test code = Angle) 61.0 degrees 53.0-72.0 [facility] JfyvejcWKQGAFFUOI5150-49-09 07:56:00 Test Item Value Reference Range Interpretation Comments Max Amp (test code = Max Amp) 57.1 mm 50.0-70.0 [facility] HeightsBmzswnqFLXIMZXUAQ7674-95-57 07:56:006.7[facility] 2019-02-17 07:56:000.5[facility] HeightsKfwufvkMYRCTOAMJB6465-40-93 07:56:00 Test Item Value Reference Range Interpretation Comments Coag Index (test code 0.2 1 See_Comment [Auto mated message] The = Coag Index) system which g enerated this result transmit guillaume reference range : <=3.0. The reference range was not used to interpr et this result as jd l/abnormal. [facility] HeightsJogoqcnQQVHDBEBLW2412-95-89 07:56:00See Note (02/17/19 2:56 AM)[facility] HeightsDmmapghHHDACYSTAP4652-67-17 07:56:00 Test Item Value Reference Range Interpretation Comments PTT (test code = PTT) 28.8 s 22.9-35.8 [facility] HeightsZlxzjwzKAQRSOSJXI1295-87-26 07:56:00 Test Item Value Reference Range Interpretation Comments PT (test code = PT) 15.4 s 12.0-14.7 [facility] HeightsDetgqqfSXYMMHLMJI4243-56-61 07:56:00 Test Item Value Reference Range Interpretation Comments INR (test code = INR) 1.24 1 0.85-1.17 [facility] HeightsWqaoysvOYMFBONNSV0796-99-41 11:32:00 Test Item Value Reference Range Interpretation Comments PTT (test code = PTT) 30.8 s 22.9-35.8 [facility] HeightsSrowggwVILGIZNBVK5551-92-88 11:32:00 Test Item Value Reference Range Interpretation Comments PT (test code = PT) 16.0 s 12.0-14.7 [facility] HeightsBempvwsRDLULZFSJA9795-36-22 11:32:00 Test Item Value Reference Range Interpretation Comments INR (test code = INR) 1.31 1 0.85-1.17 [facility] HeightsPwwjsjhGEHDFZOTQP6539-50-59 11:32:00 Test Item Value Reference Range Interpretation Comments R-time (test code = R-time) 3.7 min 5.0-10.0 [facility] HeightsBhnyajoEHSMWJEJQW6679-05-70 11:32:00 Test Item Value Reference Range Interpretation Comments K-time (test code = K-time) 1.5 min 1.0-3.0 [facility] ZkzdnmtEHTJMKECRR9354-95-78 11:32:00 Test Item Value Reference Range Interpretation Comments Angle (test code = Angle) 67.7 degrees 53.0-72.0 [facility] KyepfrwDYKENWUEKE4209-46-51 11:32:00 Test Item Value Reference Range Interpretation Comments Max Amp (test code = Max Amp) 62.5 mm 50.0-70.0 [facility] VzernuyRXWRFSYRWR7186-32-09 11:32:008.3[facility] HermannHEMATOLOGY 2019-02-16 11:32:000.0[facility] HzincbeVXWCBIZOSO7026-82-94 11:32:00 Test Item Value Reference Range Interpretation Comments Coag Index (test code 2.0 1 See_Comment [Auto mated message] The = Coag Index) system which g enerated this result transmit guillaume reference range : <=3.0. The reference range was not used to interpr et this result as jd l/abnormal. [facility] ApqwcbeSKMFBOLJXY1119-50-39 11:32:00See Note (02/16/19 6:32 AM)[facility] HermannCARDIAC AMZTRHD1036-07-40 15:18:000.06[facility] HermannDRUG SCREEN 2019-02-15 14:46:00Negative *NA*(02/15/19 9:46 [...] Spec 1.047 1 Grav) [facility]UR[facility] AND HPTRB1572-37-62 14:46:00 Test Item Value Reference Range Interpretation Comments UA pH (test code = UA pH) 5.0 1 5.0-8.0 [facility]URINE AND UXQOB7515-90-56 14:46:00Negative *NA*(02/15/19 9:46 AM)[facility]annUR[facility] AND VPKJC9543-71-47 14:46:00Moderate *ABN*(02/15/19 9:46 AM)[facility]annURINE AND PKMDX2040-36-53 14:46:00<1.0[facility]annURINE AND YVSME6976-92-57 14:46:00Negative (02/15/19 9:46 AM)[facility]UR[facility] AND KDRLJ6574-18-94 14:46:00Moderate *ABN*(02/15/19 9:46 AM) [facility]UR[facility] AND HVEVI2587-08-10 14:46:0057[facility]annURINE AND QMEQQ0384-92-46 14:46:0040[facility]annURINE AND IDUVD3114-52-42 14:46:005 [facility]annBLOOD BANK TONKIJG4250-53-45 12:47:00Product available (02/15/19 7:47 AM)[facility] HermannCARDIAC RGWVKKK8919-65-19 11:13:0015.5[facility] [place] CARDIAC OQGNEJY0210-78-95 11:13:00 Test Item Value Reference Range Interpretation Comments CK MB Index (test 0.9 1 See_Comment [Automate d message] The code = CK MB Index) system w [employer] generated this result transmit guillaume reference range : <=2.5. The reference range was not used to interpr et this result as jd l/abnormal. [facility]annCARDIAC BGROIGU8842-69-11 11:13:609408Sjcessvm HermannCARDIAC IZIOLPK4467-22-20 11:13:000.07[facility] HermannBACTERIAL - SESYTXBG6144-46-56 03:45:00Negative (02/14/19 10:45 PM)[facility] HermannCARDIAC TTCUBAD8599-79-53 03:45:531245Iwjiulze HermannCARDIAC CZTYILG5700-12-92 03:45:0019.5[facility] HermannCARDIAC QYLJEFP4489-96-90 03:45:00 Test Item Value Reference Range Interpretation Comments CK MB Index (test 1.1 1 See_Comment [Automate d message] The code = CK MB Index) system w [employer] generated this result transmit guillaume reference range : <=2.5. The reference range was not used to interpr et this result as jd l/abnormal. [facility]annCHEM CMHGQ4879-73-30 03:45:001.8[facility] HermannCHEM PANEL 2019-02-15 03:45:005.3[facility] HermannCHEM EWACZ6416-05-43 03:45:003.0[facility] HermannCHEM OFHOA5401-46-98 03:45:0025[facility] HermannCHEM TPKMX4418-12-52 03:45:0054[facility] HermannCHEM AGQGX6052-94-46 03:45:0055[facility] HermannCHEM AIPYA5381-40-96 03:45:001.1[facility] HermannCHEM LSTFC3181-18-27 03:45:00 Test Item Value Reference Range Interpretation Comments B/C Ratio (test code = B/C Ratio) 18 1 6-25 [facility] HermannCHEM SPVFH4381-93-40 03:45:002.3[facility] HermannCHEM PANEL 2019-02-15 03:45:00 Test Item Value Reference Range Interpretation Comments A/G Ratio (test code = A/G Ratio) 1.3 1 0.7-1.6 [facility] CenterUpnhsoxCWIIFIFVDS0488-87-96 03:45:00 Test Item Value Reference Range Interpretation Comments R-time (test code = R-time) 4.1 min 5.0-10.0 [facility]VvvsmnhADOOJNVKYX1675-04-22 03:45:00 Test Item Value Reference Range Interpretation Comments K-time (test code = K-time) 2.2 min 1.0-3.0 [facility] HeightsNrpguwyEKKNVOKYZB2772-75-95 03:45:00 Test Item Value Reference Range Interpretation Comments Angle (test code = Angle) 61.4 degrees 53.0-72.0 [facility] CenterGvugyopONKTEZULDB2250-29-83 03:45:00 Test Item Value Reference Range Interpretation Comments Max Amp (test code = Max Amp) 54.2 mm 50.0-70.0 [facility] HeightsRpszdlrQQZQNQWOAC8026-82-20 03:45:005.9[facility] CenterATOLOGY 2019-02-15 03:45:000.0[facility] HeightsThrktfdURTREBFYNL7488-51-27 03:45:00 Test Item Value Reference Range Interpretation Comments Coag Index (test code 0.0 1 See_Comment [Auto mated message] The = Coag Index) system which g enerated this result transmit guillaume reference range : <=3.0. The reference range was not used to interpr et this result as jd l/abnormal. [facility] HeightsEsulgibUZHAHYBJKH9474-56-58 03:45:00See Note (02/14/19 10:45 PM) [facility] CWMJCMW6926-43-62 22:15:00Negative (02/14/19 5:15 PM) [facility] XMQPT9498-78-84 22:15:[facility].5[facility] 22:15:00 Test Item Value Reference Range Interpretation Comments ACT (TEG) Rapid (test code = ACT (TEG) 136 s 86-118 Rapid) [facility] HeightsRqrgqedMNCJTDETFN1473-96-62 22:15:00 Test Item Value Reference Range Interpretation Comments Split Point Rapid (test code = Split 0.8 min Point Rapid) [facility] HeightsSjljjjxQBACEGSNAR3508-97-10 22:15:00 Test Item Value Reference Range Interpretation Comments R-time Rapid (test code = R-time 0.9 min 0.4-0.7 Rapid) [facility] RenaissanceVfmgcmjYTATRIWNDU1850-76-49 22:15:00 Test Item Value Reference Range Interpretation Comments K-time Rapid (test code = K-time 2.2 min 0.6-2.3 Rapid) [facility] HeightsOwgkgdgIOVJTKSKGF8364-59-16 22:15:00 Test Item Value Reference Range Interpretation Comments Angle Rapid (test code = Angle 68 degrees 64-80 Rapid) [facility] HeightsPrwgkjjEWNEBMPUWS5383-96-77 22:15:00 Test Item Value Reference Range Interpretation Comments Max Amplitude Rapid (test code = Max 57 mm 52-71 Amplitude Rapid) [facility] CenterMnwgpdbSXEONKHVLI3529-62-56 22:15:006.6[facility] HermannHEMATOLOGY 2019-02-14 22:15:000.0[facility] NlpbhswWWTGTPENQA7581-37-44 22:15:00<3[facility] YcpypvlKBIQGCPJFA7585-76-90 22:15:00<0.003[facility]
[2020-09-10 18:18] LABS: Absolute Lymphocytes (CBC) 2.2 K/uL (0.7-4.9); Basophils % 0.6 % (0-1.3); Hematocrit 43.7 % (39.6-49.0); Lymphocytes % 41.6 % (15.3-44.8); MPV 9.5 fL (7.6-11.3); RBC Red Blood Cell Count 4.78 M/uL (4.33-5.43)
[2020-09-10 18:19] LABS: Protime INR 1.02
--- NOTE | 2020-09-10 18:25 | RAD REPORT ---
EXAM DESCRIPTION: CT - Head Brain Wo Cont - 09/10/2020 6:13 pm CLINICAL HISTORY: Facial droop COMPARISON: 2019 TECHNIQUE: Computed axial tomography of the head was obtained. IV contrast was not requested. All CT scans are performed using dose optimization technique as appropriate and may include automated exposure control or mA/KV adjustment according to patient size. FINDINGS: Bilateral craniotomies. 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 Gliosis left temporal lobe and right frontal lobe unchanged No hydrocephalus Fluid within the sinuses/ mastoids is not seen. 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 No acute intracranial abnormality seen. If patient's symptoms persist MRI brain would be recommended
--- NOTE | 2020-09-10 18:28 | RAD REPORT ---
EXAM DESCRIPTION: [facility] Single View09/10/2020 6:16 pm CLINICAL HISTORY: Shortness breath COMPARISON: September 08, 2020 FINDINGS: Mild bilateral pulmonary opacities. . The heart is mildly to moderately enlarged IMPRESSION: Mild CHF is suspected
[2020-09-10 18:30] LABS: Albumin 3.7 g/dL (3.4-5.0); Bilirubin Direct 0.1 mg/dL (0-0.2); Bilirubin Total 0.4 mg/dL (0.2-1.0); Magnesium 2.1 mg/dL (1.8-2.4); Potassium 4.1 mmol/L (3.5-5.1); Protein, Total 7.1 g/dL (6.4-8.2); Troponin (Emerg Dept Use Only) 0.03 ng/mL (0.0-0.045)
--- NOTE | 2020-09-10 19:42 | ER ---
Nurse's Notes [facility] Name: Beto Schreiber Sr Age: 89 yrs Sex: Male : 1930 Arrival Date: 09/10/2020 Time: 17:15 Bed 6 Private MD: Diagnosis: Weakness;Altered mental status, unspecified Presentation: 09/10 17:15 Chief complaint: EMS states: Toned out by family reporting possible stroke' right sided jl7 weakness and facial droop x 2 days. Coronavirus screen: Client denies travel out of the [place] in the last 14 days. At this time, the client does not indicate any symptoms associated with coronavirus-19. Ebola Screen: No symptoms or risks identified at this time. No acute neurological deficit is noted. Pre-hospital glucose is not applicable to this patient. Initial Sepsis Screen: Does the patient meet any 2 criteria? No. Patient's initial sepsis screen is negative. Does the patient have a suspected source of infection? No. Patient's initial sepsis screen is negative. Risk Assessment: Do you want to hurt yourself or someone else? Patient reports no desire to harm self or others. Onset of symptoms was September 08, 2020. Care prior to arrival: None. Transition of care: patient was not received from another setting of care. 17:15 Method Of Arrival: EMS: [facility] 17:15 Acuity: ASMITA 3 jl7 Triage Assessment: 17:18 The onset of the patients symptoms was September 08, 2020 at 12:00. General: Appears in no jl7 apparent distress. uncomfortable, Behavior is calm, cooperative. Pain: Denies pain. Neuro: Level of Consciousness is awake, alert, Oriented to person, Moves all extremities. Weakness in right hand(s) Speech with expressive aphasia noted, Reports unable to understand pt at this time. Cardiovascular: Patient's skin is warm and dry. Respiratory: Airway is patent Respiratory effort is even, unlabored, Respiratory pattern is regular, symmetrical. Derm: Skin is pink, warm \T\ dry. Stroke Activation: Symptom onset > 6 hours Physician: Stroke Attending; Name: ; Notified At: ; Arrived At: Physician: Chief Stroke Resident; Name: ; Notified At: ; Arrived At: Physician: Stroke Resident; Name: ; Notified At: ; Arrived At: Physician: ED Attending; Name: ; Notified At: ; Arrived At: Physician: ED Resident; Name: ; Notified At: ; Arrived At: Historical: - Allergies: 17:18 Meperidine; jl7 - Home Meds: 17:18 Coreg 3.125 mg Oral tab [Active]; Lasix 20 mg Oral tab 1 tab 2 times per day [Active]; jl7 levothyroxine 50 mcg tab 1 tab once daily [Active]; - PMHx: 17:18 CVA; Diabetes - NIDDM; Hypertension; Hypothyroidism; Myocardial infarction; subdural jl7 hematoma; - Immunization history:: Adult Immunizations unknown. - Social history:: Smoking status: unknown. Screenin:48 Abuse screen: Denies threats or abuse. Denies injuries from another. Nutritional jl7 screening: No deficits noted. Tuberculosis screening: No symptoms or risk factors identified. Fall Risk No fall in past 12 months (0 pts). Secondary diagnosis (15 points) CVA, IV access (20 points). Ambulatory Aid- Crutches/Cane/Walker (15 pts). Gait- Weak (10 pts.). Mental Status- Overestimates/Forgets Limitations (15 pts.). Total Moura Fall Scale indicates High Risk Score (45 or more points). Fall prevention measures have been instituted. Side Rails Up X 2 Placed Close to Nursing Station Frequent Obs/Assessments Occuring Family Present and informed to notify staff if the need to leave the bedside As available patient and family educated on Fall Prevention Program and Strategies. Assessment: 17:48 VAN Scoring: Arm Drift: Minor drift Visual Disturbance: No visual disturbance noted. jl7 Aphasia: Patient exhibits both expressive and receptive aphasia. Provider notified of +VAN scoring. The patient has not been NPO before screening. The patient is currently on the following diet: home The patient is alert, and able to follow commands. The patient does not exhibit slurred or garbled speech. The patient is exhibiting difficulty speaking. Provider notified of the indication for Speech Therapy consult. The patient does not exhibit difficulty understanding words. The patient is able to swallow own secretions with no drooling or need for suction. Patient tolerated one teaspoon of water. No drooling, immediate coughing, gurgling, or clearing of the throat was noted. The patient tolerated 90mL of water. No drooling, immediate coughing, gurgling, or clearing of the throat was noted. The patient passed the bedside swallow screening. Oral medications may be given as ordered. Contact Physician for further diet orders. Provider notified of bedside swallow screening results: Jatinder LINN. T-PA (Activase) Screening: Contraindications: Patient reports onset of signs and symptoms of stroke greater than 6 hours ago: Yes. 17:55 Reassessment: Pt's son at bedside, reports pt's speech is baseline, worse over the last jl7 2 days but he has been hard to understand for a long time. 18:45 Reassessment: Patient appears in no apparent distress at this time. No changes from hb previously documented assessment. Patient and/or family updated on plan of care and expected duration. Pain level reassessed. 19:00 General: Appears uncomfortable, Behavior is calm. Pain: Unable to use pain scale. FLACC ea scale score is 0 out of 10. Neuro: Level of Consciousness is awake, alert. Respiratory: Airway is patent Respiratory effort is even, unlabored, Respiratory pattern is regular, symmetrical. Derm: Skin is dry, Skin is normal, Skin temperature is warm. 21:17 Reassessment: Patient and/or family updated on plan of care and expected duration. Pain ea level reassessed. Pt resting with eyes open, respirations even and unlabored, chest expansions even and symmetrical. No s/s of pain or discomfort noted at this time. 21:48 Reassessment: Pt admitted to fourth floor, report given to receiving nurse. Pt left ED ea via stretcher per tech. Pt tolerating well. Vital Signs: 17:15 BP 173 / 97; Pulse 73; Resp 17 S; Temp 98.4(TE); Pulse Ox 100% on R/A; Pain 0/10; jl7 17:55 BP 163 / 110; Pulse 73; Resp 17; Pulse Ox 98% ; jl7 18:58 BP 154 / 94; Pulse 66; Resp 22; Pulse Ox 99% on R/A; hb 19:00 BP 158 / 90; Pulse 60; Resp 18; Pulse Ox 99% ; ea 21:20 BP 166 / 86; Pulse 78; Resp 20; Pulse Ox 99% ; ea NIH Stroke Scale Scores: 17:48 NIHSS Score: 9 jl7 ED Course: 17:15 Patient arrived in ED. jl7 17:18 Triage completed. jl7 17:18 Arm band placed on right wrist. jl7 17:20 Joana Holbrook RN is Primary Nurse. jl7 17:23 Patient has correct armband on for positive identification. Placed in gown. Bed in low mh5 position. Call light in reach. Side rails up X2. Warm blanket given. library monitor on. Pulse ox on. NIBP on. 17:23 EKG done, by ED staff, reviewed by Emeterio Crisostomo MD. [facility] 17:24 Jatinder Moreno PA is PHCP. [facility] 17:24 Emeterio Crisostomo MD is Attending Physician. m 17:47 Initial lab(s) drawn, by wy, sent to lab. Inserted saline lock: 20 gauge in left jl7 antecubital area, using aseptic technique. Blood collected. 18:14 CT Head Brain wo Cont In Process Unspecified. EDMS 18:16 XRAY Chest (1 view) In Process Unspecified. EDMS 19:14 Primary Nurse role handed off by Joana Holbrook RN mw2 19:41 Joey Burkett MD is Hospitalizing Provider. [facility] 21:14 No provider procedures requiring assistance completed. Patient admitted, IV remains in ea place. Administered Medications: No medications were administered Point of Care Testing: Blood Glucose: 17:48 Blood Glucose: 82 mg/dL; jl7 Ranges: Outcome: 19:41 Decision to Hospitalize by Provider. [facility] 21:14 Condition: stable ea 21:14 Instructed on the need for admit, Demonstrated understanding of instructions. 21:24 Admitted to Med/surg accompanied by tech, room 426, with chart, Report called to ea Receiving nurse 21:49 Patient left the ED. ea NIH Stroke Scale - NIH Stroke Score Date: 09/10/2020 Time: 17:48 Total Score = 9 1a. Level of Consciousness (LOC) - 0(Alert) 1b. Level of Consciousness (LOC) (Year \T\ Age) - 2(Neither) 1c. LOC Commands (Open \T\ Closes Eyes/Weapons Mechanic) - 2(Neither) 2. Best Gaze (Lateral Gaze Paresis) - 0(Normal) 3. Visual Field Loss - 0(No visual loss) 4. Facial Palsy - 1(Minor Paralysis) 5a. Left Arm: Motor (10-second hold) - 0(No drift) 5b. Right Arm: Motor (10-second hold) - 1(Drift) 6a. Left Leg: Motor (5-second hold - always test supine) - 0(No drift) 6b. Right Leg: Motor (5-second hold - always test supine) - 1(Drift) 7. Limb Ataxia (finger/nose \T\ heel/hodgson - test with eyes open) - 0(Absent) 8. Sensory Loss (pinprick arms/legs/face) - 0(Normal) 9. Best Language: Aphasia (description/naming/reading) - 1(Mild to moderate aphasia) 10. Dysarthria (speech clarity - read or repeat words) - 1(Mild to Moderate) 11. Extinction and Inattention (visual/tactile/auditory/spatial/personal) - 0(No abnormality) Initials: jl7 Signatures: Dispatcher [employer] Jatinder Beal PA PA jmm Baxter, Heather, Chelo Mitchell RN [facility] Joana Holbrook RN RN jl7 Ania Albarran RN Terrie Velasquez ea 2
--- NOTE | 2020-09-10 19:42 | EDPHYS ---
Physician Documentation [facility] Name: Beto Schreiber Sr Age: 89 yrs Sex: Male : 1930 Arrival Date: 09/10/2020 Time: 17:15 Bed 6 Private MD: ED Physician Emeterio Crisostomo HPI: 09/10 17:17 This 89 yrs old Black Male presents to ER via EMS with complaints of Weakness - x 2 jmm days. 17:17 The patient presents to the emergency department with weakness of the difficult jmm walking, the patient is generally weak. Onset: The symptoms/episode began/occurred gradually, 2 day(s) ago. Associated signs and symptoms: Pertinent negatives:. The patient has not experienced similar symptoms in the past. Historical: - Allergies: 17:18 Meperidine; jl7 - Home Meds: 17:18 Coreg 3.125 mg Oral tab [Active]; Lasix 20 mg Oral tab 1 tab 2 times per day [Active]; jl7 levothyroxine 50 mcg tab 1 tab once daily [Active]; - PMHx: 17:18 CVA; Diabetes - NIDDM; Hypertension; Hypothyroidism; Myocardial infarction; subdural jl7 hematoma; - Immunization history:: Adult Immunizations unknown. - Social history:: Smoking status: unknown. ROS: 17:17 Constitutional: Negative for fever, chills, and weight loss, Cardiovascular: Negative jmm for chest pain, palpitations, and edema, Respiratory: Negative for shortness of breath, cough, wheezing, and pleuritic chest pain. 17:17 Neuro: Positive for weakness. 17:17 All other systems are negative. Exam: 17:17 Constitutional: This is a well developed, well nourished patient who is awake, alert, jmm and in no acute distress. Head/Face: atraumatic. Eyes: EOMI, no conjunctival erythema appreciated ENT: Moist Mucus Membranes Neck: Trachea midline, Supple Chest/axilla: Normal chest wall appearance and motion. Cardiovascular: Regular rate and rhythm. No edema appreciated Respiratory: Normal respirations, no respiratory distress appreciated Abdomen/GI: Non distended, soft Back: Normal ROM Skin: General appearance color normal 17:17 Musculoskeletal/extremity: ROM: intact in all extremities. 17:17 Neuro: Orientation: unable to test, the patient has a history of dementia. 17:17 Psych: Behavior/mood is pleasant, cooperative. Vital Signs: 17:15 BP 173 / 97; Pulse 73; Resp 17 S; Temp 98.4(TE); Pulse Ox 100% on R/A; Pain 0/10; jl7 17:55 BP 163 / 110; Pulse 73; Resp 17; Pulse Ox 98% ; jl7 18:58 BP 154 / 94; Pulse 66; Resp 22; Pulse Ox 99% on R/A; hb 19:00 BP 158 / 90; Pulse 60; Resp 18; Pulse Ox 99% ; ea 21:20 BP 166 / 86; Pulse 78; Resp 20; Pulse Ox 99% ; ea NIH Stroke Scale Scores: 17:48 NIHSS Score: 9 jl7 MDM: 17:47 Patient medically screened. [facility] 19:36 Data reviewed: vital signs, nurses notes. Counseling: I had a detailed discussion with angelina the patient and/or guardian regarding: the historical points, exam findings, and any diagnostic results supporting the discharge/admit diagnosis, lab results, radiology results, the need for further work-up and treatment in the hospital. ED course: I disussed the patient with Nyla Calderón ENP whom accepted the patient to Dr. Burkett's service. 09/10 17:52 Order name: Basic Metabolic Panel; Complete Time: 18:31 [facility] 09/10 17:52 Order name: CBC with Diff; Complete Time: 18:41 [facility] 09/10 17:52 Order name: LFT's; Complete Time: 18:31 [facility] 09/10 17:52 Order name: Magnesium; Complete Time: 18:31 [facility] 09/10 17:52 Order name: NT PRO-BNP; Complete Time: 18:31 [facility] 09/10 17:52 Order name: PT-INR; Complete Time: 18:43 [facility] 09/10 17:52 Order name: Troponin (emerg Dept Use Only); Complete Time: 18:31 [facility] 09/10 17:52 Order name: XRAY Chest (1 view); Complete Time: 18:31 [facility] 09/10 17:52 Order name: EKG; Complete Time: 17:53 [facility] 09/10 17:52 Order name: Cardiac monitoring; Complete Time: 18:03 [facility] 09/10 17:52 Order name: EKG - Nurse/Tech; Complete Time: 18:03 [facility] 09/10 17:52 Order name: CT Head Brain wo Cont; Complete Time: 18:31 [facility] 09/10 18:11 Order name: Glucose, Ancillary Testing; Complete Time: 18:31 [facility] 09/10 19:50 Order name: COVID-19 : Document "Date of Symptom Onset" if Symptomatic. mw2 09/10 17:52 Order name: IV Saline Lock; Complete Time: 18:03 [facility] 09/10 17:52 Order name: Labs collected and sent; Complete Time: 18:03 [facility] 09/10 17:52 Order name: O2 Per Protocol; Complete Time: 18:03 [facility] 09/10 17:52 Order name: O2 Sat Monitoring; Complete Time: 18:03 [facility] Administered Medications: No medications were administered Point of Care Testing: Blood Glucose: 17:48 Blood Glucose: 82 mg/dL; jl7 Ranges: Critical Glucose Levels:Adult <50 mg/dl or >400 mg/dl <40 mg/dl or >180 mg/dl Disposition: 09/11 08:36 Co-signature as Attending Physician, Emeterio Crisostomo MD I agree with the assessment and kdr plan of care. Disposition: 09/10/20 19:41 Hospitalization ordered by Joey Burkett for Observation. Preliminary diagnosis are Weakness, Altered mental status, unspecified. - Bed requested for Telemetry/MedSurg (observation). - Status is Observation. ea - Condition is Stable. - Problem is new. - Symptoms are unchanged. NIH Stroke Scale - NIH Stroke Score Date: 09/10/2020 Time: 17:48 Total Score = 9 1a. Level of Consciousness (LOC) - 0(Alert) 1b. Level of Consciousness (LOC) (Year \\T\\ Age) - 2(Neither) 1c. LOC Commands (Open \\T\\ Closes Eyes/Client Care Coordinator) - 2(Neither) 2. Best Gaze (Lateral Gaze Paresis) - 0(Normal) 3. Visual Field Loss - 0(No visual loss) 4. Facial Palsy - 1(Minor Paralysis) 5a. Left Arm: Motor (10-second hold) - 0(No drift) 5b. Right Arm: Motor (10-second hold) - 1(Drift) 6a. Left Leg: Motor (5-second hold - always test supine) - 0(No drift) 6b. Right Leg: Motor (5-second hold - always test supine) - 1(Drift) 7. Limb Ataxia (finger/nose \\T\\ heel/hodgson - test with eyes open) - 0(Absent) 8. Sensory Loss (pinprick arms/legs/face) - 0(Normal) 9. Best Language: Aphasia (description/naming/reading) - 1(Mild to moderate aphasia) 10. Dysarthria (speech clarity - read or repeat words) - 1(Mild to Moderate) 11. Extinction and Inattention (visual/tactile/auditory/spatial/personal) - 0(No abnormality) Initials: jl7 Signatures: Dispatcher [employer] EDMirela Smith, RN RN Emeterio White MD MD kdr Mickail, Joel, PA PA [facility] Sidney Calderón, HELICOPTER TECHNICIAN-C HELICOPTER TECHNICIAN-Cla1 Joana Holbrook RN RN jl7 Ania Albarran RN Terrie Velasquez ea mw2 Corrections: (The following items were deleted from the chart) 09/10 20:25 19:41 Hospitalization Ordered by Joey Burkett MD for Observation. Preliminary diagnosis is Weakness; Altered mental status, unspecified. Bed requested for Telemetry/MedSurg (observation). Status is Observation. Condition is Stable. Problem is new. Symptoms are unchanged. [facility] 20:56 20:25 09/10/2020 19:41 Hospitalization Ordered by Joey Burkett MD for mw2 Observation. Preliminary diagnosis is Weakness; Altered mental status, unspecified. Bed requested for Telemetry/MedSurg (observation). Status is Observation. Condition is Stable. Problem is new. Symptoms are unchanged. 20:56 20:56 09/10/2020 19:41 Hospitalization Ordered by Joey Burkett MD for mw2 Observation. Preliminary diagnosis is Weakness; Altered mental status, unspecified. Bed requested for Telemetry/MedSurg (Inpatient). Status is Observation. Condition is Stable. Problem is new. Symptoms are unchanged. mw2 21:01 20:56 09/10/2020 19:41 Hospitalization Ordered by Joey Burkett MD for mw2 Observation. Preliminary diagnosis is Weakness; Altered mental status, unspecified. Bed requested for Telemetry/MedSurg (observation). Status is Observation. Condition is Stable. Problem is new. Symptoms are unchanged. mw2 21:49 21:01 09/10/2020 19:41 Hospitalization Ordered by Joey Burkett MD for ea Observation. Preliminary diagnosis is Weakness; Altered mental status, unspecified. Bed requested for Telemetry/MedSurg (observation). Status is Observation. Condition is Stable. Problem is new. Symptoms are unchanged. mw2
--- NOTE | 2020-09-10 20:00 | P.HP ---
Certification for Inpatient Patient admitted to: Observation With expected LOS: <2 Midnights Patient will require the following post-hospital care: None Practitioner: I am a practitioner with admitting privileges, knowledge of patient current condition, hospital course, and medical plan of care. Services: Services provided to patient in accordance with Admission requirements found in Title 42 Section 412.3 of the Code of Federal Regulations Patient History Date of Service: 09/10/20 Primary Care Provider: Dr. Marcus Reason for admission: Weakness, CVA rule out History of Present Illness: 89-year-old male with history of TBI, hypothyroidism, chronic CHF, seizure disorder, GERD presents emergency department for weakness. Patient lives with his son who is at bedside providing most of the history, son reports that patient typically gets around with a walker and is able to feed himself and get around without any problems, over the course of the last few days son has noticed that he is much more weak than normal, walking into things with his walker, having difficulty with his ADL is, appears to have some mild right-sided facial droop and was noted by family to have some difficulty with his right upper extremity while eating. Patient was evaluated in the emergency department, labs were unremarkable, CT head without any acute changes but does demonstrate small chronic subdural hematomas along the frontal convexities which are unchanged from previous exams. Chest x-ray demonstrates mild CHF. ED provider wishes to admit patient for CVA rule out and weakness. Allergies meperidine HCl [From Demerol] Allergy (Verified 06/29/19 07:56) hallucinations Home Medications: Levothyroxine [Synthroid*] 0.75 tab PO DAILY 06/19/19 Aspirin [Valentín Chewable Aspirin] 1 tab PO DAILY 09/08/20 Furosemide [Lasix*] 20 mg PO DAILY 09/08/20 OXcarbazepine [Oxcarbazepine] 150 mg PO BID 09/08/20 Sodium Chloride Tab [Sodium Chloride*] 1 gm PO DAILY 09/08/20 Pantoprazole [Protonix Tab] 40 mg PO DAILY #30 tab 09/09/20 - Past Medical/Surgical History Diabetic: No -: Hypertension -: Hypothyroidism -: Chronic diastolic CHF -: CAD -: History of subdural hematomas -: Chronic hyponatremia -: History of traumatic brain injury with speech dysfunction -: History of PEG tube -: Craniotomy -: Hip surgery -: Neck surgery Psychosocial/ Personal History: Patient lives with son. Patient receives home health. - Family History Mother -: Diabetes, Cancer Father -: Other (see notes) Notes: Dementia Sister -: Hypertension, Cancer - Social History Smoking Status: Former smoker Alcohol use: No CD- Drugs: No Caffeine use: No Place of Residence: Home Review of Systems is unable to be obtained Physical Examination - Physical Exam General: Alert, Confused, Other (Unable to fully assess orientation, patient follows simple commands.) HEENT: Atraumatic, Normocephalic Neck: Supple Respiratory: Diminished (Bilaterally) Cardiovascular: No edema, Regular rate/rhythm, Normal S1 S2 Capillary refill: <2 Seconds Gastrointestinal: Normal bowel sounds, Soft and benign Musculoskeletal: No contractures, No erythema, No tenderness Integumentary: No tenderness/swelling, No erythema, No warmth Neurological: Other (Difficult exam neurologicly as patient cannot easily follow all commands. Patient moving all extremities, speech is garbled and inconsistent which family reports is slightly worse than his baseline, some mild right-sided facial droop noted, patient is moving all extremities.), Abnormal speech - Studies Laboratory Data (last 24 hrs) 09/10/20 17:55: PT 11.7, INR 1.02 09/10/20 17:55: WBC 5.30, Hgb 14.3, Hct 43.7, Plt Count 159 09/10/20 17:55: Sodium 139, Potassium 4.1, BUN 19 H, Creatinine 1.29, Glucose 86, Magnesium 2.1, Total Bilirubin 0.4, AST 15, ALT 17, Alkaline Phosphatase 79 Assessment and Plan - Plan Assessment Weakness, right-sided facial droop rule out CVA-history of TBI with chronic subdural hematomas Chronic diastolic congestive heart failure Hypothyroidism Seizure disorder GERD Hyponatremia Plan Weakness, right-sided facial droop rule out CVA-history of TBI with chronic subdural hematomas: Will obtain MRI stroke protocol, echocardiogram, carotid ultrasound, neurology has been consulted. Physical therapy/speech therapy/swallow screen. director of food and nutrition services consulted for additional assistance, upon discharge depending on patient's evaluation would likely benefit from either home health with physical therapy or placement for rehab. Son reports patient has previously been to rehab facility and done well including 5th floor, open to options depending on results evaluation. Will continue with daily aspirin, add statin, folic acid. DVT prophylaxis Lovenox 40 mg subcutaneous once daily. Appreciate further input from neurology. Chronic diastolic congestive heart failure: Appears stable continue home medications. Hypothyroidism: Continue home medications, obtain thyroid panel Seizure disorder: Appears stable this time will continue home medications once verified. GERD: Continue Protonix Hyponatremia: Stable. Discharge Plan: Home Plan to discharge in: 24 Hours - Advance Directives Does patient have a Living Will: No Does patient have a Durable POA for Healthcare: No - Code Status/Comfort Care Code Status Assessed: Yes (DNR) Critical Care: No Time Spent Managing Pts Care (In Minutes): 55
[2020-09-10 22:11] VITALS: BMI 29.2
[2020-09-10] MEDS ORDERED: ONDANSETRON 4 MG/2 ML VIAL IV PRN (22:16)
[2020-09-10] MEDS ORDERED: HYDRALAZINE HCL 20 MG/ML VIAL IV PRN (22:16)
[2020-09-10] MEDS: NA CHLORIDE 0.9% 1,000 ML IV SCH (22:48)
[2020-09-11] MEDS: LEVOTHYROXINE SOD 0.025 MG TAB PO SCH ×2 (05:26→05:28)
[2020-09-11] MEDS: PANTOPRAZOLE 40MG TABLET PO SCH ×2 (05:27)
[2020-09-11] MEDS: CEFTRIAXONE/SWI 1gm 1 GM/10 ML SYR IV SCH (06:23)
[2020-09-11] MEDS ORDERED: LEVOTHYROXINE SOD 0.075 MG TAB PO SCH (06:30)
[2020-09-11] MEDS ORDERED: PANTOPRAZOLE 40MG TABLET PO SCH (06:30)
[2020-09-11 07:09] LABS: Absolute Lymphocytes (CBC) 1.7 K/uL (0.7-4.9); Basophils % 0.8 % (0-1.3); Lymphocytes % 36.6 % (15.3-44.8); MPV 9.7 fL (7.6-11.3)
[2020-09-11 07:26] LABS: Bilirubin Total 0.3 mg/dL (0.2-1.0); Potassium 4.2 mmol/L (3.5-5.1); Protein, Total 5.9 g/dL (6.4-8.2); Thyroid Stimulating Hormone 0.877 uIU/mL (0.360-3.740)
[2020-09-11 08:08] LABS: Blood Morphology Comment NOT SEEN (NOT SEEN); Platelet Estimate ADEQ
[2020-09-11] MEDS: ENOXAPARIN 40 MG/0.4 ML SQ SCH (08:43)
[2020-09-11] MEDS: OXcarbazepine 150 MG TAB PO SCH ×2 (08:44→20:46)
[2020-09-11] MEDS: SODIUM CHLORIDE 1 GM TAB PO SCH (08:44)
[2020-09-11] MEDS: ASPIRIN 81 MG CHEWABLE TABLET PO SCH (08:44)
[2020-09-11] MEDS: FOLIC ACID 1 MG TABLET PO SCH (08:46)
[2020-09-11] MEDS ORDERED: ASPIRIN EC 81 MG TAB PO SCH (09:00)
[2020-09-11] MEDS ORDERED: CEFTRIAXONE 1 GM/NS 50 ML 1 GM/50 ML BAG IV SCH (09:00)
--- NOTE | 2020-09-11 09:00 | EKG ---
Test Date: 2020-09-10 Test Time: 17:19:57 Fast Food Manager: ADOLPH MEASUREMENT RESULTS: Intervals: Rate: 69 MD: 202 QRSD: 84 QT: 392 QTc: 420 Apex: P: 24 MD: 202 QRS: -55 T: 82 INTERPRETIVE STATEMENTS: Sinus rhythm with occasional premature ventricular complexes Left axis deviation Anteroseptal infarct, age undetermined T wave abnormality, consider lateral ischemia Abnormal ECG Compared to ECG 09/08/2020 08:45:13 Left-axis deviation now present T-wave abnormality now present Possible ischemia now present Sinus arrhythmia no longer present First degree AV block no longer present Left anterior fascicular block no longer present Myocardial infarct finding still present Electronically Signed On 09-11-20 08:58:48 CDT by Candido Dupont
[2020-09-11 09:54] LABS: Urine Appearance CLEAR (Clear); Urine Bilirubin NEGATIVE (Negative); Urine Blood NEGATIVE (Negative); Urine Color YELLOW (Yellow); Urine Glucose NEGATIVE (Negative); Urine Protein NEGATIVE (Negative); Urine Specific Gravity 1.015 (1.005-1.030); Urine Urobilinogen 0.2 mg/dL (0.2-1.0); Urine pH 6.5 (5.0-7.0)
[2020-09-11] MEDS: NA CHLORIDE 0.9% 1,000 ML IV SCH ×2 (10:19→18:16)
[2020-09-11 10:31] LABS: Urine Microscopic Reflex NO UMIC
--- NOTE | 2020-09-11 11:32 | RAD REPORT ---
EXAM DESCRIPTION: - CP - 09/11/2020 11:23 am CLINICAL HISTORY: CVA R/O Headache, drowsiness, CVA symptomology COMPARISON: No comparisons TECHNIQUE: Real-time sonographic evaluation of both carotid systems was performed. Doppler interroga tion was performed with waveform tracing bilaterally. FINDINGS: The examination was very limited by patient cooperation issues. Moderate hard plaque is present involving the right carotid bulb. Mild intimal thickening and plaquing is seen left carotid bulb. No significant carotid stenosis suspected. Antegrade flow seen in the vertebral arteries. IMPRESSION: The examination was very limited due to patient cooperation issues. No severe carotid stenosis suspected.
--- NOTE | 2020-09-11 16:58 | P.PN ---
Subjective Date of Service: 09/11/20 Primary Care Provider: Dr. Marcus Chief Complaint: Weakness, CVA rule out Subjective: No new changes (somewhat improved. son at bedside reports patient can get more difficult to understand like this at times - some times just related to his mood / when he's angry. He is more confused per son, improved compared to admission) Review of Systems is unable to be obtained Physical Examination - Vital Signs Temperature: 97.8 F Blood Pressure: 154/90 Pulse: 74 Respirations: 18 Pulse Ox (%): 97 - Studies Laboratory Data (last 24 hrs) 09/10/20 17:55: PT 11.7, INR 1.02 09/10/20 17:55: WBC 5.30, Hgb 14.3, Hct 43.7, Plt Count 159 09/10/20 17:55: Sodium 139, Potassium 4.1, BUN 19 H, Creatinine 1.29, Glucose 86, Magnesium 2.1, Total Bilirubin 0.4, AST 15, ALT 17, Alkaline Phosphatase 79 Assessment & Plan Physician Review Additional Text: Physical Exam General: Alert, Confused, Unable to fully assess orientation - difficult to understand speech, doesn't seem to answer appropriately, mild agitation HEENT: Atraumatic, Normocephalic Respiratory: Diminished (Bilaterally), but clear to auscultation Cardiovascular: No edema, Regular rate/rhythm, Normal S1 S2 Capillary refill: <2 Seconds Gastrointestinal: Normal bowel sounds, Soft and benign Musculoskeletal: No contractures, No erythema, No tenderness Neurological: patient does not want to participate in my exam, agitated Problem List Weakness, right-sided facial droop rule out CVA-history of TBI with chronic subdural hematomas Chronic diastolic congestive heart failure Hypothyroidism Seizure disorder GERD Hyponatremia -MRI stroke protocol ordered, echo ordered, carotids without significant stenosis -neurology consulted -PT/ST consulted -pt will likely need HH vs SNF, pending further eval - PT/MRI -continue ASA, statin, folic acid -continue home meds as appropriate -empirically covering for UTI - difficult to obtain accurate ROS, Urine micro positive for GNR from prior admission earlier this week. UA negative at this time. Pt reports no sympp Dispo: anticipate dc in 1-2 days, may need SNF/rehab Time Spent Managing Pts Care (In Minutes): 35
--- NOTE | 2020-09-11 19:47 | CON ---
Reason For Consultation: Consultation called because of possible stroke. History Of Present Illness: Mr. Schreiber is an 89-year-old right-handed patient with m ultiple medical problems, including congestive heart failure, seizures, traumatic brain injury, hypot hyroidism, gastroesophageal reflux disease, who is brought in by his son with possible worsening righ t facial droop, difficulty using the right hand and problems getting around. At baseline, he does gordon ve diffuse weakness and some weakness on the right side, but reportedly gets around with a walker, is able to eat independently and do a few of his activities of daily living. However, he apparently gordon d more right facial drooping and difficulty using the arm as indicated and this was not immediately t riggering visit to the hospital, but had been occurring for perhaps a couple of days prior to coming to the hospital. His head CT scan showed no acute ischemic or hemorrhagic changes. The patient did have a chronic subdural hematoma in a right frontal convexity, that was unchanged compared to a previ ous study. He does have a brain MRI pending, that is not done yet. His carotid artery ultrasound wa s limited by movement artifact, but no severe carotid stenosis was suspected. His complete blood cou nt with differential essentially is unremarkable. Normal white blood cell count. Hemoglobin and hem atocrit also unremarkable. Coagulation panel, INR 1.02. Electrolytes show some potentially mild deh ydration, chloride was a little elevated and BUN elevated, but after hydration that is normal, creati nine went from 1.29 to 1.07, glucose normal. Liver function studies normal. His thyroid stimulating hormone level is normal. Procalcitonin was negative for any infection. Urinalysis was unremarkable . Since his hospitalization, I saw the patient with his son and another relative at the bedside. Th e patient did answer questions, although with some repeated encouragement did move both arms, eventua lly lifting him up showing no new or more significant weakness, did lift the left leg higher up than the right, but had some difficulty following more complex commands, which was his baseline of cogniti ve functioning. Past Medical History: As indicated. Allergies: MEPERIDINE. Medications: 1.Levothyroxine 0.075 mg daily. 2.Aspirin 81 mg daily. 3.Lasix 20 mg daily. 4.Oxcarbazepine 150 mg twice daily. 5.Sodium chloride 1 g daily. 6.Protonix 40 mg daily. Past Surgical History: PEG tube placement, craniotomy for TBI, hip and neck surgery. Family History: Cancer and diabetes in mother. Dementia in father. Sister with hypertension and ca ncer. Social History: Smoked in the past. No current smoking or alcohol use. Lives with son. Review of Systems: Not reliable at this point, but the family notes no recent fevers or chills. No apparent nausea, gaye lgias, arthralgias, rash, headache, weight change, or any active psychiatric issues. Physical Examination: Vital Signs: Blood pressure 154/90, pulse 74, respiratory rate 18, temperature 97.8. Weight 176 connor nds, height 5 feet 5 inches. General: Mr. Schreiber is in bed, in no significant distress. He appears somewhat disheveled. HEENT: He is normocephalic and atraumatic. Sclerae anicteric. Oropharynx moist. Neck: Supple. Chest: Clear. Heart: Regular. Extremities: No significant edema or cyanosis. Neurological: He does answer to his name, disoriented to exact location, the date. Does follows sim ple commands, but requires repeated encouragement. Difficulty trying to follow complex commands. On motor examination, while there is reported some more weakness on the right side, he actually lifted the both the right and left equally well. In the upper extremity on the left side, he lifted the lef t leg off the bed, but typically dropped, could not hold a count to 5 and the right side was down and did not hold that up. Sensation shows stocking-glove loss to light touch and temperature. Coordina tion appears smooth and intact. Reflexes are depressed in the extremities. Unable to assess his gai t. He will be ambulated with the physical therapist, which did actually occur earlier today. He did ambulate 70 feet with minimum assistance with a front wheel walker, required some guidance. He was confused and had to be redirected. Assessment: Mr. Schreiber is an 89-year-old patient with no evidence of acute stroke. 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 He has a dementia and multiple medical problem s and possibly debility as a contributing factor. May require some physical therapy to help him rega in function. In addition, may need to be evaluated by speech therapy for swallowing and determine if different consistency may be used for the patient's nutritional needs and while protecting his airwa y. If he ends up being a good candidate for inpatient rehabilitation, he may come up at the [facility] floor for further physical therapy while managing his acute medical conditions. Otherwise, khushboo nue medications as indicated. NARINDER/MARIBEL Voice ID: [id number] Report ID: [id number]
[2020-09-11] MEDS ORDERED: ATORVASTATIN 40 MG TAB PO SCH (21:00)
[2020-09-12] MEDS: NA CHLORIDE 0.9% 1,000 ML IV SCH ×2 (04:16→14:16)
[2020-09-12 04:54] LABS: Absolute Lymphocytes (CBC) 1.2 K/uL (0.7-4.9); Basophils % 0.7 % (0-1.3); Hematocrit 39.3 % (39.6-49.0); Lymphocytes % 28.7 % (15.3-44.8); MPV 9.3 fL (7.6-11.3); RBC Red Blood Cell Count 4.31 M/uL (4.33-5.43)
[2020-09-12 05:21] LABS: Bilirubin Total 0.4 mg/dL (0.2-1.0); Magnesium 2.1 mg/dL (1.8-2.4); Potassium 4.1 mmol/L (3.5-5.1)
[2020-09-12] MEDS ORDERED: Levofloxacin 750mg IV 750 MG/150 ML BAG IV SCH (06:00)
[2020-09-12] MEDS: CEFTRIAXONE/SWI 1gm 1 GM/10 ML SYR IV SCH (06:13)
[2020-09-12] MEDS: LEVOTHYROXINE SOD 0.025 MG TAB PO SCH (06:13)
[2020-09-12] MEDS ORDERED: Pantoprazole (granules) 40 MG/BLIST PACKET PO SCH (06:30)
--- NOTE | 2020-09-12 08:30 | ECHO ---
HEIGHT: 5 ft 5 in WEIGHT: 176 lb 0 oz DATE OF STUDY: 09/11/[address]: Sidney Calderón NP 2-DIMENSIONAL: YES M.MODE: YES DOPPLER: YES COLOR FLOW: YES TDS: YES PORTABLE: NO DEFINITY: NO BUBBLE STUDY: NO DIAGNOSIS: WEAKNESS, RULE OUT CEREBRAL VASCULAR ACCIDENT CARDIAC HISTORY: CATHERIZATION: NO SURGERY: NO PROSTHETIC VALVE: NO PACEMAKER: NO MEASUREMENTS (cm) DIASTOLIC (NORMALS) SYSTOLIC (NORMALS) IVSd 1.0 (0.6-1.2) LA Diam 2.3 (1.9-4.0) LVEF 40-45% LVIDd 5.0 (3.5-5.7) LVIDs 3.3 (2.0-3.5) %FS % LVPWd 1.1 (0.6-1.2) Ao Diam 3.2 (2.0-3.7) 2 DIMENSIONAL ASSESSMENT: RIGHT ATRIUM: NORMAL LEFT ATRIUM: NORMAL RIGHT VENTRICLE: NORMAL LEFT VENTRICLE: SEE BELOW TRICUSPID VALVE: MITRAL VALVE: NORMAL PULMONIC VALVE: AORTIC VALVE: NORMAL PERICARDIAL EFFUSION: NONE AORTIC ROOT: NORMAL LEFT VENTRICULAR WALL MOTION: ANTERIOR WALL AKINESIS. POOR WINDOWS. DOPPLER/COLOR FLOW: SEE BELOW. COMMENTS: MILDLY DEPRESSED LEFT VENTRICULAR EJECTION FRACTION WITH ANTERIOR WALL AKINESIS. MILD TRICUSPID AND PULMONARY REGURGITATION. TECHNOLOGIST: Sam HICKS
[2020-09-12] MEDS: ENOXAPARIN 40 MG/0.4 ML SQ SCH (09:00)
[2020-09-12] MEDS: ASPIRIN 81 MG CHEWABLE TABLET PO SCH (10:17)
[2020-09-12] MEDS: SODIUM CHLORIDE 1 GM TAB PO SCH (10:18)
[2020-09-12] MEDS: FOLIC ACID 1 MG TABLET PO SCH (10:18)
[2020-09-12] MEDS: OXcarbazepine 150 MG TAB PO SCH (10:18)
--- NOTE | 2020-09-12 10:34 | RAD REPORT ---
EXAM DESCRIPTION: MRI - Brain W/Wo Cont - 09/12/2020 9:43 am CLINICAL HISTORY: weakness Headache, drowsiness, CVA symptomology COMPARISON: MRA Head Wo Cont dated 09/12/2020; Head Brain Wo Cont dated 09/10/2020; Brain Wo Cont date d 06/18/2019; Head Brain Wo Cont dated 06/18/2019 TECHNIQUE: Multi-sequence, multiplanar MR imaging of the brain was performed with contrast. FINDINGS: Bilateral subdural fluid collections are again identified. These collections are most nota ble along the frontal convexity. Collections are similar in size to comparative study dated 0 and hyperintense on T2/FLAIR imaging. Following contrast administration there is enhancement of the dura as well as around the subdural fluid collections anteriorly. The enhancement is vigorous but re latively diffuse and fairly thin throughout. In addition, diffusion-weighted imaging demonstrates 19 x 11 mm area of restricted diffusion left per iventricular white matter extending inferiorly into the left basal ganglia compatible with acute CVA. There is no finding to indicate acute hemorrhage within the brain. No hydrocephalus midline shift. Th ere is evidence of significant spinal stenosis at the craniocervical junction. IMPRESSION: Acute nonhemorrhagic 19 x 11 mm CVA left periventricular white matter extending inferior ly into the basal ganglia. Bilateral subdural fluid collections anteriorly likely represent chronic subdural hematoma or subdura l effusions and appear unchanged since the 2019 prior study. Diffuse dural enhancement is present whi ch may be related to previous craniotomy or intracranial hypotension. Significant craniocervical junction spinal stenosis.
--- NOTE | 2020-09-12 10:36 | RAD REPORT ---
EXAM DESCRIPTION: MRI - MRA Head Wo Cont - 09/12/2020 9:43 am CLINICAL HISTORY: weakness CVA COMPARISON: Head Brain Wo Cont dated 09/10/2020 FINDINGS: 3D noncontrast [id number] MR angiography of the [place] was performed. No aneurysm, flow-limiting stenosis or vascular malformation is seen. Forward flow seen in codominant vertebral arteries. The visualized dural venous sinuses appear patent. IMPRESSION: No significant flow abnormality of the [place] is identified.
--- NOTE | 2020-09-12 13:12 | P.PN ---
Subjective Date of Service: 09/12/20 Primary Care Provider: Dr. Marcus Chief Complaint: Weakness, CVA rule out Subjective: Improving (speech is more understandable, pt still having some weakness/heaviness) Review of Systems 10-point ROS is otherwise unremarkable Physical Examination - Vital Signs Temperature: 97.7 F Blood Pressure: 165/89 Pulse: 63 Respirations: 16 Pulse Ox (%): 96 Assessment & Plan Physician Review Additional Text: Physical Exam General: Alert, Oriented x3, difficult to understand speech but improved, follows commands HEENT: Atraumatic, Normocephalic Respiratory: clear to auscultation bilaterally Cardiovascular: No edema, Regular rate/rhythm, Normal S1 S2 Capillary refill: <2 Seconds Gastrointestinal: Normal bowel sounds, Soft and benign Musculoskeletal: No contractures, No erythema, No tenderness Neurological: left upper extremity weakness, RLE: 4/5 str, LLE: 5/5 str, RUE: 5/5 Problem List Weakness, right-sided facial droop secondary to acute nonhemorrhagic 19x11 mm CVA L periventricular white matter extending inferiorly into the basal ganglia history of TBI with chronic subdural hematomas Chronic diastolic congestive heart failure Hypothyroidism Seizure disorder GERD Hyponatremia -MRI: Acute nonhemorrhagic 19 x 11 mm CVA left periventricular white matter extending inferiorly into the basal ganglia.] -echo: no thrombus, EF: 40% -neurology consulted -PT/ST consulted -pt would benefit from inpatient rehab for further physical therapy, agreeable to inpatient rehab -continue ASA, statin, folic acid -continue home meds as appropriate -empirically covering for UTI - difficult to obtain accurate ROS, Urine micro positive for GNR from prior admission earlier this week. UA negative at this time. Pt reports no symptoms at this time, but did have some last week Dispo: SW/CM consulted for rehab Time Spent Managing Pts Care (In Minutes): 35
[2020-09-12 15:59] VITALS: BP 175/98; TEMP 97.6
[2020-09-12 16:00] VITALS: O2SAT 98
--- NOTE | 2020-09-12 22:15 | P.DS ---
Admission Date: 09/10/20 Discharge Date: 09/12/20 Primary Care Provider: Dr. Marcus Disposition: TRANSFER TO INPATIENT REHAB Discharge Condition: GOOD Reason for Admission: Weakness, CVA rule out Consultations: Neurology - Dr. Carpio Procedures: CXR (09/10): Mild bilateral pulmonary opacities. . The heart is mildly to moderately enlarged CT Head (09/10): Small chronic subdural hematomas along the frontal convexities unchanged. No acute intracranial abnormality seen. Carotid U//S (09/10): The examination was very limited due to patient cooperation issues. No severe carotid stenosis suspected. MRI Brain (09/12): Acute nonhemorrhagic 19 x 11 mm CVA left periventricular white matter extending inferiorly into the basal ganglia. Bilateral subdural fluid collections anteriorly likely represent chronic subdural hematoma or subdural effusions and appear unchanged since the 2019 prior study. Diffuse dural enhancement is present which may be related to previous craniotomy or intracranial hypotension. Significant craniocervical junction spinal stenosis. MRA Brain (09/12): No significant flow abnormality of the [place] is identified. TTE (09/11): mildly depressed LVEF: 40-45% with anterior wall akinesis. mild TR and [place]. Problem List acute nonhemorrhagic 19x11 mm CVA L periventricular white matter extending inferiorly into the basal ganglia UTI, cystitis history of TBI with chronic subdural hematomas Chronic diastolic congestive heart failure Hypothyroidism Seizure disorder GERD Hyponatremia Brief History of Present Illness: 89-year-old male with history of TBI, hypothyroidism, chronic CHF, seizure disorder, GERD presents emergency department for weakness. Patient lives with his son who is at bedside providing most of the history, son reports that patient typically gets around with a walker and is able to feed himself and get around without any problems, over the course of the last few days son has noticed that he is much more weak than normal, walking into things with his walker, having difficulty with his ADL is, appears to have some mild right-sided facial droop and was noted by family to have some difficulty with his right upper extremity while eating. Patient was evaluated in the emergency department, labs were unremarkable, CT head without any acute changes but does demonstrate small chronic subdural hematomas along the frontal convexities which are unchanged from previous exams. Chest x-ray demonstrates mild CHF. ED provider wishes to admit patient for CVA rule out and weakness. Hospital Course: Patient underwent CT brain which was negative. MRI machine was down and delayed obtaining MRI which eventually revealed an acute nonhemorrhagic CVA. Patient had some mild improvement in weakness/heaviness. His mentation also improved. He seems to have some waxing/waning episodes during the day which family state is normal. He typically is easier to understand in the morning. He was discharged to inpatient rehab to continue recovery. Of note, patient was recently hospitalized 1-2 days prior to this hos pitalization. He was treated with 2 days of antibiotics for possible UTI, however labs were negative at time of discharge. Urine culture from 09/08 eventually grew pseudomonas. UA and urine culture on admission this time were negative. He was empirically treated with levaquin and recommend continuation for 5 more days. Vital Signs/Physical Exam: Temp Pulse Resp BP Pulse Ox 97.6 F 64 16 175/98 H 98 09/12/20 15:57 09/12/20 15:57 09/12/20 15:57 09/12/20 15:57 09/12/20 15:57 Laboratory Data at Discharge: WBC 4.30 K/uL (4.3-10.9) 09/12/20 04:26 Hgb 13.0 g/dL (13.6-17.9) L 09/12/20 04:26 Hct 39.3 % (39.6-49.0) L 09/12/20 04:26 Plt Count 146 K/uL (152-406) L 09/12/20 04:26 PT 11.7 SECONDS (9.5-12.5) 09/10/20 17:55 INR 1.02 09/10/20 17:55 Sodium 141 mmol/L (136-145) 09/12/20 04:26 Potassium 4.1 mmol/L (3.5-5.1) 09/12/20 04:26 BUN 18 mg/dL (7-18) 09/12/20 04:26 Creatinine 1.15 mg/dL (0.55-1.3) 09/12/20 04:26 Glucose 95 mg/dL (74-106) 09/12/20 04:26 Magnesium 2.1 mg/dL (1.8-2.4) 09/12/20 04:26 Total Bilirubin 0.4 mg/dL (0.2-1.0) 09/12/20 04:26 AST 15 U/L (15-37) 09/12/20 04:26 ALT 16 U/L (12-78) 09/12/20 04:26 Alkaline Phosphatase 69 U/L (45-117) 09/12/20 04:26 Triglycerides 103 mg/dL (<150) 09/11/20 06:34 Cholesterol 166 mg/dL (<200) 09/11/20 06:34 HDL Cholesterol 42 mg/dL (40-60) 09/11/20 06:34 Cholesterol/HDL Ratio 3.95 09/11/20 06:34 Home Medications: Levothyroxine [Synthroid*] 0.75 tab PO DAILY 06/19/19 Aspirin [Valentín Chewable Aspirin] 1 tab PO DAILY 09/08/20 Furosemide [Lasix*] 20 mg PO DAILY 09/08/20 OXcarbazepine [Oxcarbazepine] 150 mg PO BID 09/08/20 Sodium Chloride Tab [Sodium Chloride*] 1 gm PO DAILY 09/08/20 Pantoprazole [Protonix Tab*] 40 mg PO DAILY #30 tab 09/09/20 Atorvastatin Calcium [Lipitor] 40 mg PO BEDTIME tab 09/12/20 Folic Acid 1 mg PO DAILY 30 Days #30 tablet 09/12/20 New Medications: Folic Acid 1 mg PO DAILY 30 Days #30 tablet Physician Discharge Instructions: You were found to have a new acute stroke. You are discharged to inpatient rehab to continue physical therapy, speech therapy, and monitoring. Followup: Bimal Carpio MD [ASSOCIATE-ACTIVE - CAN ADMIT] - VENKATESH RIDDLE [Primary Care Provider] - Time spent managing pt's care (in minutes): 45
== END 2020-09-12 17:05 | DRG 65 ==
LOC: ER 17:09 → ERHOLD 19:42 → 4TH 21:14 → OBSVTOIN 09-11 20:35
PROVIDERS: ADMIT Hospitalist; ATTEND Hospitalist
DX: I63.9 Cerebral infarction, unspecified (principal); I50.32 Chronic diastolic (congestive) heart failure; E87.1 Hypo-osmolality and hyponatremia; I11.0 Hypertensive heart disease with heart failure; E11.9 Type 2 diabetes mellitus without complications; I25.2 Old myocardial infarction; E03.9 Hypothyroidism, unspecified; G40.909 Epilepsy, unspecified, not intractable, without status epilepticus; E86.0 Dehydration; K21.9 Gastro-esophageal reflux disease without esophagitis; F03.90 Unspecified dementia, unspecified severity, without behavioral disturbance, psychotic disturbance, mood disturbance, and anxiety; N30.90 Cystitis, unspecified without hematuria; I25.10 Atherosclerotic heart disease of native coronary artery without angina pectoris; R29.709 NIHSS score 9; R29.810 Facial weakness; R26.2 Difficulty in walking, not elsewhere classified; Z66 Do not resuscitate; Z87.891 Personal history of nicotine dependence; Z88.8 Allergy status to other drugs, medicaments and biological substances; Z86.73 Personal history of transient ischemic attack (TIA), and cerebral infarction without residual deficits; Z79.890 Hormone replacement therapy; Z79.899 Other long term (current) drug therapy; Z20.822 Contact with and (suspected) exposure to COVID-19
CPT/HCPCS: 36415; 70450; 70544; 70553; 71045; 74177; 80048; 80053; 80061; 80076; 81003; 82565; 82947; 83690; 83735; 83880; 84145; 84439; 84443; 84484; 85025; 85610; 86140; 87040; 87077; 87086; 87088; 87186; 92610; 93005; 93306; 93880; 96361; 96374; 97116; 97161; 97530; 99284; 99285; A9577; G0378; J0696; J1644; J1650; J7030; J7040; Q9967; U0003

== ENCOUNTER 2020-09-12 14:33 | Inpatient (IN) | payer OTHER ==
--- NOTE | 2020-09-12 15:16 | R.PREADM ---
PRE-ADMISSION SCREENING FORM SCREENING DATE AND TIME 09/12/2020 14:41 (CDT) ANTICIPATED REHAB ADMISSION DATE 09/14/[address] [facility] REFERRAL DATE AND TIME 09/12/2020 14:41 (CDT) REFERRAL ROOM# 426 ACUTE ADMIT DATE 09/11/2020 Previous Rehabilitation(s): No. ACUTE SHEET HANGER/DC ADMITTING COORDINATOR Vicki ATTENDING PHYSICIAN KOKO JOINER REFERRING PHYSICIAN KOKO GARCIA MD REHAB FACILITY [facility] CLINICAL LIAISON Linda Laughlin PHYSICIAN REVIEWER Dr. Bimal Carpio M.D. MR# [id number] NAME SONIA SCHREIBER ADDRESS [address] [facility] [address] [facility] [address] DATE OF 1930 AGE 89 SSN# [id number] GENDER male MARITAL STATUS PREF. LANGUAGE (IF NON-VINCENTIAN) Lithuanian ADMIT FROM 02 - [facility] PRE-HOSPITAL LIVING SETTING 01 - Home (private home/apt. board/care, assisted living, fci, transitional living) HOME TYPE AND DETAILS Type of home: single family house # of levels in the residence: 1 # of steps within the residence: 0 # of steps to enter the residence: 0 PRE-HOSPITAL LIVING WITH Family/Relatives FAMILY SUPPORT Yes PRIMARY FAMILY CONTACT NAME Regis Schreiber PRIMARY FAMILY CONTACT PHONE PRIMARY FAMILY CONTACT RELATIONSHIP Son PHONE PRIMARY FAMILY CONTACT ON ADM.? no IS PRIMARY FAMILY CONTACT AUTH. REP.? no 1ST EMERGENCY CONTACT Regis Schreiber 1ST CONTACT PHONE 1ST CONTACT RELATIONSHIP Son PHONE 1ST CONTACT ON ADM. no IS 1ST CONTACT AUTH. REP.? no PHONE 2ND CONTACT ON ADM.? no PATIENT EMPLOYMENT STATUS Retired (for age) PATIENT EMPLOYER No Employer PAYOR INFORMATION: 1ST PAYOR NAME MEDICARE 1ST PAYOR PHONE 1ST PAYOR INJURY/ILLNESS DUE TO ACCIDENT? No ANOTHER LIBERTARIAN RESPONSIBLE? No PRIMARY REHAB/ACUTE DIAGNOSIS: CVA ONSET DATE 09/12/2020 REHAB IMPAIRMENT CATEGORY (ADEOLA): 01 Stroke (STR) MEETS 60% rule AFFECTED EXTREMITIES: RLE, and RUE PRIMARY DIAGNOSIS-RELATED SURGERIES: N/A SUMMARY OF ACUTE HOSPITALIZATION: Pt. is a 89 yo Right-handed male. On 09/12/[address] [facility] with sudden onset of right-side weakness. On 09/12/2020 he was admitted to [facility] with diagnosis CVA. His impairment category is Stroke 01 - Right Body (Left Brain) (01.2). Pre-morbidly, Pt. was independent/mod-I in Locomotion, Safety Awareness, and Self-Care; and he had go od Sphincter Control, Transfers Control, Social Cognition, Balance, and Endurance. Currently, he has deficits of Locomotion, Safety Awareness, Balance, Transfers Control, Sphincter Con trol, Self-Care, and Communication. Pt. is now referred to [facility] for acute in-patient rehabilitation in order to maximize patient's functional independence in activities of daily living, strength, ROM, and mobi lity. Patient has realistic goal of being discharged at assistance level 7-Ind to reside at Home with Fami ly/Relatives. PAST MEDICAL HISTORY TBI HYPOTHYROIDISM CHRONIC CHF SEIZURE DISORDER GERD MEDICATION ALLERGIES: MEPERIDINE HCI - ADVERSE REACTION ENVIRONMENTAL ALLERGIES: - Substance Allergies None Known - Other Allergies None Known CODE STATUS: Full code WEIGHT/HEIGHT/BMI: WEIGHT 176 lbs HEIGHT 5' 5" BMI 29.3 DIET: - Diet Type Regular - Diet - Solid Texture Regular - Diet - Liquid Texture Regular - Tube Feed N/A REVIEW OF SYSTEMS: - Gen Alert and awake Lying in bed No apparent distress Oriented to: person, time, and place - Vital Signs Temperature: 97.7 F SBP/DBP: 165/89 Pulse: 63 Resp: 16 Vital signs stable, afebrile - CVS RRR VITAL SIGNS Temperature: 97.7 F SBP/DBP: 165/89 Pulse: 63 Resp: 16 Vital signs stable, afebrile MEDICATIONS/TREATMENT: Other- See attached MAR (Medication Administration Record). CURRENT SPHINCTER CONTROL: Pre-hospital bladder status: unspecified # of bladder accidents in the last 7 days prior to screenin Pre-hospital bowel status: unspecified # of bowel accidents in the last 7 days prior to screenin Last Bowel Movement Date: 09/12/2020 CURRENT LOCOMOTION STATUS: distance walked 70 feet WITH ROLLING WALKER DETAILED CURRENT FUNCTIONAL STATUS: - Bladder accident frequency: 7-Ind - No accidents in the past 7 days - Bowel accident frequency: 7-Ind - No accidents in the past 7 days - Walking score based on distance walked: 0(N/A) score based on distance walked: 2(50-149ft) - Wheelchair score based on distance traveled: 0(N/A) QI SCORES: - Self-Care A. Eating 03-Partial/moderate assistance B. Oral hygiene 03-Partial/moderate assistance C. Toileting hygiene E. Shower/bathe self 02-Substantial/maximal assistance F. Upper body dressing 02-Substantial/maximal assistance G. Lower body dressing 02-Substantial/maximal assistance H. Putting on/taking off footwear 88-Not attempted due to medical condition or safety concerns - Mobility A. Roll left and right 03-Partial/moderate assistance B. Sit to lying 03-Partial/moderate assistance C. Lying to sitting on side of bed 03-Partial/moderate assistance D. Sit to stand 03-Partial/moderate assistance E. Chair/pti-nt-myvxv transfer 03-Partial/moderate assistance F. Toilet transfer G. Car transfer 88-Not attempted due to medical condition or safety concerns I. Walk 10 feet 03-Partial/moderate assistance J. Walk 50 feet with two turns 88-Not attempted due to medical condition or safety concerns K. Walk 150 feet 88-Not attempted due to medical condition or safety concerns L. Walking 10 feet on uneven surfaces 88-Not attempted due to medical condition or safety concerns M. 1 step (curb) 88-Not attempted due to medical condition or safety concerns N. 4 steps 88-Not attempted due to medical condition or safety concerns O. 12 steps 88-Not attempted due to medical condition or safety concerns P. Picking up object 88-Not attempted due to medical condition or safety concerns R. Wheel 50 feet with two turns 88-Not attempted due to medical condition or safety concerns S. Wheel 150 feet 88-Not attempted due to medical condition or safety concerns - Bladder and Bowel Bladder continence Bowel continence - Endurance Fair - Balance Fair - Safety Awareness Fair CURRENT FUNC. DEFICITS: Self-Care, Mobility, Endurance, Balance, and Safety Awareness CURRENT / PREVIOUS ASSISTIVE DEVICES: Rolling Walker HISTORY OF FALLS. HAS THE PATIENT HAD TWO OR MORE FALLS IN THE PAST YEAR OR ANY FALL WITH INJURY IN T HE PAST YEAR?: No PRIOR SURGERY. DID THE PATIENT HAVE MAJOR SURGERY DURING THE 100 DAYS PRIOR TO ADMISSION?: No THERAPY NOTES FROM ACUTE CARE: Attached. SPECIAL NEEDS: - Safety Concerns Skin breakdown precautions needed due to skin breakdown risk PRECAUTIONS: - Weight Bearing Precaution WBAT right LE PATIENT NEEDS ACTIVE AND ONGOING THERAPEUTIC INTERVENTION OF MULTIPLE THERAPY DISCIPLINES, INCLUDING: - Occupational Therapy Cognitive Retraining. Visual Perceptual Training. - Dietary and Nutrition Adequate Nutrition. Nutritional Education. Nutritional Supplements. - Speech Therapy Cognitive Training. Expressive Language Skills. Memory Strategies. Receptive Language Skills. Speech Intelligibility Training. PATIENT NEEDS CLOSE MEDICAL SUPERVISION BY A REHABILITATION PHYSICIAN FOR: Coordination of Treatment Team PATIENT REQUIRES 24X7 REHAB NURSING FOR MEDICAL AND FUNCTIONAL MGT. OF THE FOLLOWING DEFICITS: Disease Management Medication Management Patient/Family Education Providing Safe Environment PATIENT REQUIRES INTENSIVE, COORDINATED INTERDISCIPLINARY APPROACH TO REHAB: Arranging Home Equipment/Services Discharge Planning Family Intervention/Training Bilingual Operator/Case Management PATIENT REHAB POTENTIAL: Onur SCHREIBER is able and expected to receive 3 hours of individualized therapy daily on at least 5 of inocente ry 7 days Onur SCHREIBER's prognosis for significant practical improvement within a reasonable period of time appears Good Expected level of measurable improvement will be of a practical value to Onur SCHREIBER's functional capaci ty or adaptations to impairments Has a viable Discharge Plan Medically appropriate; condition is sufficiently stable to participate in intensive rehab program DISCHARGE PLAN: - Estimated Length of Stay (days) 17. - Consensus on plan Discharge plan has been discussed with primary caregiver. Patient/Family is in agreement with the corinne n. Primary caregiver is in agreement with the plan. - Patient/Family Goals Return home independently. - Planned Living Setting Upon Discharge Home, to live with Family/Relatives. Transitional Living. RECOMMENDED CARE LEVEL: IRF RECOMMENDATION DETAILS: Recommended Admission to Comprehensive Rehabilitation Program to Increase Functional [place] SCREENER'S COMPLETENESS CONFIRMATION: - Screening Confirmation The patient data collection on this preadmission screening form is finished PHYSICIANS REVIEW AND ADMISSION DETERMINATION Admit - Based on my review of the Pre-Admission Screening results, in my medical judgment and experie nce, I concur with the findings and recommend admission to [facility], as this patient requires an IRF level of care. SIGNATURE PANEL: Prosthetic Technician - [electronically] signed by Linda Laughlin on 09/12/2020 at 15:05 (CDT) Prosthetic Technician - [electronically] signed by Jos Quinteros PT on 09/12/2020 at 15:07 (CDT) Physician Reviewer - [electronically] signed by Dr. Bimal Carpio M.D. on 09/12/2020 at 15:15 (CDT )
--- OUTSIDE RECORDS SUMMARY | 2020-09-12 18:21 | XMS REPORT | Continuity of Care Document ---
:1930 Author Organization [facility] t Address [address] [place] [address] Care Team Providers Name Role Phone Anthony Marcus Attending Clinician [phone] Edwardo DALTON, H Attending Clinician Evelyn Sharif [...] Expiration Date Sour ce Number MEDICAREMEDICARE A [id number] [facility] [id number] [facility]P 00:[facility] Problems Condition Condition Condition Status Onset Resolution Last Treating Co mments Source Name Details Category Date Date Treatment Clinician Date TBI TBI Disease Active 2019- [facility] (traumatic (traumatic 6 [facility] kes - brain brain 00:00: Medical injury) injury) 00 Center Seizure Seizure Disease Active 2019- [facility] disorder [facility] 00 [place] Dementia Dementia Disease [facility] 00 [place] Acute Acute Disease Active 2019- [facility] encephalop encephalop 605 [facility]illa kes - athy athy 00:00: Medical 00 [place] OTHER Diagnosis Active 2019-07-16 Mem oria 3- 21:55:00 l OTHER 00:00: Master 00 Active 07/07/2019 [place] HYPONATREM Diagnosis Active 2019-05-31 Memoria IA 05-17 21:51:00 l 00:00: [place] HYPONATREM 00 IA Active 0 [facility] BLEED Diagnosis Active 2018-042019-04-24 M emoria 2- 22:00:00 l GI BLEED 00:00: [place] 00 Active 04/08/2019 [place] ABNORMAL Diagnosis Active 2018-042019-04-05 emoria LABS 2-11 22:05:00 l ABNORMAL 00:00: [place] LABS 00 Active 03/28/2019 [facility] [place] AMS Diagnosis Active 2018-042019-03-28 Mem oria 2-11 20:50:00 l AMS 00:00: [place] 00 Active 03/28/2019 [facility] CHRONIC Diagnosis Active 2018-042019-04-17 Me moria HYPONATREM 2-11 21:54:00 l IA CHRONIC 00:00: Master HYPONATREM 00 IA Active 9 [facility] S06.5X0S - Diagnosis Active 2018-042019-05-24 Memoria TRAUM 05-13 10:29:00 l SUBDR HEM [id number] 00:01: Her addison W/O LOSS - TRAUM 00 OF C SUBDR HEM W/O LOSS OF C Active 03/13/2019 TRINA Thao FALL Diagnosis Active 2018-042019-03-06 Mem oria - 22:18:00 l FALL 00:00: [place] 00 Active 03/06/2019 [facility] SDH Diagnosis Active 2018-042019-03-22 Mem oria 05-06 22:22:00 l SDH 00:00: [place] 00 Active 03/06/2019 [facility] SANDY Diagnosis Active 2018-042019-02-15 Memoria BILLING/55 0-30 09:53:00 l 15 00:00: Master SANDY 00 BILLING/55 15 Active 9 [facility] SAH Diagnosis Active 2018-042019-03-05 Mem oria 030 21:43:00 l SAH 00:00: [place] 00 Active 02/14/2019 [facility] Cervico-oc Problem Active 2019-08-19 M emoria cipital 04-19 21:09:17 l neuralgia 00:00: Master (finding) Cervico-oc 00 cipital neuralgia (finding) Active 04/19/2013 Problem 08/19/2019 Data migrated from [email or web address] on 09/17/14. 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 Medical Group,[facility], Nathalie Erickson,[facility], [place] Degenerati Problem Active 2012-042019-08-19 M emoria on of - 21:09:17 l cervical 00:00: Master interverte Degenerati 00 bral disc on of (disorder) cervical interverte bral disc (disorder) Active 04/09/2013 Problem 08/19/2019 Data migrated from [email or web address] on 12/10/14. Medical Group,[facility], Dre, Rolo Thao,[facility], [place] Headache Problem Active 2012-042019-08-19 Mem oria (finding) 06-10 21:09:17 l Headache 00:00: [place] (finding) 00 Active 04/09/2013 Problem 08/19/2019 Data migrated from [employer] on 12/10/14. Medical Group,[facility], Dre,[facility] TRINA Thao,[facility], [place] History of Problem Active 2012-042019-08-19 M emoria - 06-10 21:09:17 l myocardial History 00:00: Her addison infarction of - 00 (context-d myocardial ependent infarction category) (context-d ependent category) Active 04/09/2013 Problem 08/19/2019 Data migrated from [employer] on 12/10/14. Medical Group,[facility], Dre, Rolo Thao,[facility] Cervical Cervical Problem Active [facility] Nontraumat Problem 2019-03-11 M emoria ic chronic 23:00:38 l subdural Master hemorrhage Nontraumat ic chronic subdural hemorrhage 03/11/2019 [facility] Illness, Problem 2019-05-29 Mem oria unspecifie 22:28:06 l d Illness, [place] unspecifie d 05/29/2019 [facility] Gastrointe Problem Resolve 2019-08-19 Memoria stinal d 21:09:17 l hemorrhage [place] (disorder) Gastrointe stinal hemorrhage (disorder) Resolved Problem 08/19/2019 Medical [facility] [place] Syndrome Problem Resolve 2019-08-19 Me moria of d 21:09:17 l inappropri 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 (disorder) n secretion (disorder) Resolved Problem 08/19/2019 [facility] [place] Atrial Problem Active 2019-08-19 Memor ia fibrillati 21:09:17 l on Atrial [place] (disorder) fibrillati on (disorder) Active Problem 08/19/2019 [facility], [place] 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 [place] 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) Active Problem 08/19/2019 [facility], [place] Congestive Problem Active 2019-08-19 M emoria heart 21:09:17 l failure Master (disorder) Congestive heart failure (disorder) Active Problem 08/19/2019 [facility], [place] Fatigue Problem Active 2019-08-19 [place] (finding) 21:09:17 l Fatigue [place] (finding) Active Problem 08/19/2019 [facility], Dre,M Rolo Thao,[facility], [place] Hematoma Problem Active 2019-08-19 Mem oria of 21:09:17 l subdural Hematoma Herm ruddy space of of neuraxis subdural (disorder) space of neuraxis (disorder) Active Problem 08/19/2019 [facility], [place] Hypertensi Problem Active 2019-08-19 M emoria ve 21:09:17 l disorder, Master systemic Hypertensi arterial ve (disorder) disorder, systemic arterial (disorder) Active Problem 08/19/2019 [facility], [place] Hypothyroi Problem Active 2019-08-19 M emoria dism 21:09:17 l (disorder) [place] Hypothyroi dism (disorder) Active Problem 08/19/2019 [facility], [place] Myocardial Problem Active 2019-08-19 M emoria infarction 21:09:17 l (disorder) [place] Myocardial infarction (disorder) Active Problem 08/19/2019 [facility], [place] Pulmonary Problem Active 2019-08-19 Me moria embolism 21:09:17 l (disorder) [place] Pulmonary embolism (disorder) Active Problem 08/19/2019 [facility], Dre,M Rolo Thao,[facility], [place] Sinus Problem Active 2019-08-19 Memor ia bradycardi 21:09:17 l a Sinus [place] (disorder) bradycardi a (disorder) Active Problem 08/19/2019 [facility], [place] Urinary Problem Active 2019-08-19 [place] tract 21:09:17 l infectious Urinary Her addison disease tract (disorder) infectious disease (disorder) Active Problem 08/19/2019 [facility],M H TRINA Thao,[facility], [place] Asthenia Problem Active 2019-08-19 Mem oria (finding) 21:09:17 l Asthenia [place] (finding) Active Problem 08/19/2019 [facility] Group,[facility],M H TRINA Thao,[facility], [place] NONTRAUMAT Diagnosis Active 2019-03-05 Memoria IC 21:43:00 l SUBARACHNO [place] ID NONTRAUMAT HEMORRHAGE IC , UN SUBARACHNO ID HEMORRHAGE , UN Active [facility] NONTRAUMAT Diagnosis Active 2019-03-22 Memoria IC CHRONIC 22:22:00 l SUBDURAL Master HEMORRHAGE NONTRAUMAT IC CHRONIC SUBDURAL HEMORRHAGE Active [facility] HYPO-OSMOL Diagnosis Active 2019-05-31 Memoria ALITY AND 21:51:00 l HYPONATREM Qu[place] n IA HYPO-OSMOL ALITY AND HYPONATREM IA Active [facility], [place] TRAUM Diagnosis Active 2019-05-31 Mem oria SUBDR HEM 21:51:00 l W LOC OF TRAUM [place] UNSP SUBDR HEM DURATION, W LOC OF UNSP DURATION, Active [facility] ILLNESS, Diagnosis Active 2019-05-17 M emoria UNSPECIFIE 12:34:00 l D ILLNESS, [place] UNSPECIFIE D Active [facility] Low back Low back Problem Active [facility] Thoracic Thoracic Problem Active [facility] [place] [facility] Allergies, Adverse Reactions, Alerts Allergy Allergy Status Severity Reaction(s) Onset Inactive Treating Comm ents Source Name Type Date Date Clinician Laura Sanchezensi Active [facility] (Pf) ty [facility] 09-21 [facility] - adverse 00:00: Medical reaction 00 Center s meperidi meperidi Active 2012-04 Memori a ne<sup>1 ne<sup>1 2-20 l </sup> </sup> 06:00: [place] 00 Social History Social Habit Start Date Stop Date Quantity Comments Source Sex Assigned At [facility] Social History 2019-07-07 2019-07-07 [facility] Rolo hussein 11:12:48 11:12:48 Smoking Status Start Date Stop Date Source Social History [facility] Medications Ordered Filled Start Stop Current Ordering [...] an empty stomach. sodium 2019-2019- No 1g [id number] Take [address] [facility] chloride 1 09-27-12 [id number] by mouth 3 [facility] - gram tablet 12:10: 00:00 3D (three) Me dical 54 :00 times Center daily. divalproex 2019-0 2020- No 250mg [id number] Take [address] [facility] (DEPAKOTE) -03 23-12 [id number] mg by L ukes - 125 MG EC 12:10: 00:00 3D mouth 3 Medi cassie tablet 54 :00 (three) Center times daily. valproic 2019-0 2020- No 250mg Q.[id number] Take [address] [facility] acid, as 09-27 [id number] (250 mg L ukes - sodium 00:00: 23:59 3D total) by Medic al salt, 00 :00 mouth 3 Center (DEPAKENE) (three) 250 mg/5 mL times (5 mL) daily for solution 15 days. Protonix No Notes: Memoria 3-24 Tablet l 12:30: should not [place] 00 be chewed or crushed. (Same as: [...] 00 cap, 0 Capsule Refill(s) [Depakote] Divalproex 0 No 500 mg = 2 M emoria Sodium 250 3-23 tab, PO, l MG Enteric 21:41: Q8H, # 180 H ermann Coated 00 tab, 0 Tablet Refill(s) Famotidine 2019-0 Yes 20 mg = 1 Me moria 20 MG Oral 3-23 tab, PO, l Tablet 20:42: BID, # 60 [place] [Pepcid] 00 tab, 0 Refill(s), Pharmacy: [email or web address] #[id number] carvedilol 2019-0 Yes 3.125 mg = M emoria 3.125 mg 3-23 1 tab, l oral tablet 19:09: PEG, Q12H, Master 00 0 Refill(s) Aspirin 81 2020-0 Yes 81 mg = 1 Me moria MG Enteric 3-23 tab, PO, l Coated 19:09: Q24H, # 30 Fabi nn Tablet 00 tab, 0 Refill(s), Pharmacy: [email or web address] #[id number] atorvastati 2019-0 Yes 40 mg = 1 M emoria n 40 mg 3-23 tab, PO, l oral tablet 19:09: Bedtime, # Master 00 30 tab, 0 Refill(s), Pharmacy: [facility] #[id number] Divalproex No 500 mg = 2 M emoria Sodium 250 3-23 tab, PO, l MG Enteric 19:09: Q8H, # 180 H ermann Coated 00 tab, 0 Tablet Refill(s), Pharmacy: [facility] #[id number] Lipitor No Notes: Memoria 3-23 (Same as: l 02:20: Lipitor) [place] 00 Saline No Notes: Memoria Flush 0.9% 3-23 (Same as: l 02:00: BD [place] Posiflush) Aspirin 81 No Notes: Do Me moria MG Enteric 3-23 not crush l Coated 00:00: or chew. Master Tablet 00 (Same As: Ecotrin) Saline No Notes: Memoria Flush 0.9% 3-22 (Same as: l 23:18: BD [place] Posiflush) Levetiracet No Notes: [place] am 500 MG 3-22 (Same l Oral Tablet 02:00: as:Keppra) Master [Keppra] 00 Depakote No Notes: Memoria 3-21 Hazardous l 21:00: Drug Group [place] 00 2:Non-anti neoplastic Hazardous Drug -- Refer [...] 3-21 (Same as: l Tablet 14:00: Lasix) [place] [Lasix] 00 May cause GI upset. Give [...] as: Protonix) sennosides, No Notes: [place] [facility] 3-21 (Same as: l 11:56: Senokot) Lanolin [...] Memoria 3-21 microgram, l 11:40: PO, Daily, [place] 00 0 Refill(s) Sodium 2019- Yes 2 grams, Memoria Chloride -21 PEG, TID, l 11:40: 0 [place] 00 Refill(s) Furosemide 2019- Yes 40 mg = 1 Me moria 40 MG Oral 3-21 tab, PO, l Tablet 11:40: Daily, 0 [place] [Lasix] 00 Refill(s) sennosides, Yes 8.6 mg =, M emoria NURSING HOME 3-21 PEG, PRN, l 11:40: 0 Master 00 Refill(s) Melatonin No Notes: Memori a 3-21 (Same as: l 07:24: Melatonin) Lorazepam No Notes: Memori a 3-21 (Same as: l 07:13: Ativan) Dextrose 2019- No 12.5 gm, Memor ia 50% Syringe 3-21 25 mL, l (D50W) 07:13: Route: Master 00 IVP, Drug Form: INJ, Dosing Weight 81.6, kg, PRN, PRN Blood Glucose Results, Start date: 07/07/19 2:13:00 CDT, Duration: 30 day, Stop date: 08/06/19 2:12:00 CDT, 0 Glucagon 2020-0 No 1 mg, Memoria 3 Route: IM, l 07:13: Drug form: Master 00 PDR/INJ, PRN, Dosing Weight 81.6, kg, PRN Blood Glucose Results, Start date: 07/07/19 2:13:00 CDT, Duration: 30 day, Stop date: 08/06/19 2:12:00 CDT, 0 Ondansetron 2019-0 No Notes: [place] 07-06 (Same as: l 07:13: Zofran) [place] 00 MEDICATION WASTE Product Size: 4 mg Product Wasted: ___ mg Acetaminoph 2019-0 No Notes: Do M emoria en 07-06 not exceed l 07:13: 4 gm/day. Master 00 (Same as: Tylenol) Sodium 2020-0 Yes 1 gm = 1 Memoria Chloride 2-09 tab, PO, l 1000 MG 17:26: TID, # 21 Fabi nn Oral Tablet 00 tab, 0 Refill(s), Pharmacy: [facility] #[id number] Furosemide 2020-0 Yes 20 mg = 1 Me moria 20 MG Oral 2-09 tab, PO, l Tablet 17:26: Daily, # 7 Fabi nn [Lasix] 00 tab, 0 Refill(s), Pharmacy: [facility] #[id number] Furosemide 2020-0 No Notes: Memor ia 20 MG Oral 2-09 (Same as: l Tablet 15:00: Lasix) Master [Lasix] 00 May cause GI upset. Give with food or milk. carvedilol 2020-0 No 3.125 mg, Me moria 2-08 Route: PO, l 03:00: Drug form: Master 00 TAB, Q12H, Dosing Weight 81.6, kg, Start date: 05/25/19 21:00:00 WET AND DRY SUGAR BIN OPERATOR, Duration: 30 day, Stop date: 06/24/19 9:00:00 CDT Saline 2020-0 No Notes: Memoria Flush 0.9% 2-06 Same as: l 22:00: BD [place] 00 Posiflush Sterile Saline 2019-0 No Notes: Memoria Flush 0.9% 2-06 Same as: l 20:06: BD Master 00 Posiflush Sterile sodium 2019-0 No Notes: [...] 2-06 Same as : l 00:57: Lipase [place] 00 [id number] Units, Protease 38,000 units, Amylase 27306 units Reglan 2019-0 No Notes: Memoria 2-06 (Same as: l 00:27: Reglan) [place] 00 Lasix 2019-0 No Notes: Memoria 2-05 (Same as: l 22:00: Lasix) [place] 00 Seroquel 2019-0 No Notes: Memoria 2-05 (Same as: l 15:53: SEROquel) Master 00 Sodium 2020-0 No 1 gm, 1 Memoria Chloride 2-05 tab, l 1000 MG 15:00: Route: PO, Herm ruddy Oral Tablet 00 Drug form: TAB, TID, Dosing Weight 81.6, kg, Start date: 05/23/19 9:00:00 WET AND DRY SUGAR BIN OPERATOR, Duration: 30 day, Stop date: 06/21/19 17:00:00 WET AND DRY SUGAR BIN OPERATOR, 0 Sodium 2020-0 No 1 gm, 1 Memoria Chloride 2-04 tab, l 1000 MG 18:28: Route: PO, Herm ruddy Oral Tablet 00 Drug form: TAB, BID, Dosing Weight 81.6, kg, Start date: 05/22/19 12:28:00 WET AND DRY SUGAR BIN OPERATOR, Duration: 30 day, Stop date: 06/21/19 9:00:00 WET AND DRY SUGAR BIN OPERATOR, 0 Sodium 2020-0 No 1,000 mL, Memori a Chloride 2-04 Rate: 40 l 0.9% IV 18:27: ml/hr, Master 1,000 mL 00 Infuse over: 25 hr, Route: IV, Dosing Weight 81.6 kg, Total Volume: 1,000, Start date: 05/22/19 12:27:00 WET AND DRY SUGAR BIN OPERATOR, Duration: 2 day, Stop date: 05/24/19 12:26:00 WET AND DRY SUGAR BIN OPERATOR, 1.92, m2, 0 sennosides, 2019-0 No Notes: [place] [facility] 2-03 (Same as: l 23:00: Senokot) Master [...] Total Volume: 1,000, Start date: 05/21/19 9:42:00 WET AND DRY SUGAR BIN OPERATOR, Duration: 2 day, Stop date: 05/23/19 9:41:00 WET AND DRY SUGAR BIN OPERATOR, 1.92, m2, 0 Hydralazine 2019-0 No Notes: [place] 2-01 (Same as: l 18:35: Apresoline ) Push over 5 minutes Tylenol 2019-0 No 1,000 mg, Memor ia 2-01 Route: PO, l 15:01: ONCE, Master 00 Dosing Weight 81.6, kg, Priority: NOW, Start date: 05/19/19 9:01:00 WET AND DRY SUGAR BIN OPERATOR, Stop date: 05/19/19 9:01:00 WET AND DRY SUGAR BIN OPERATOR D5W 100 mL 2019-0 No 100 mL, [place] 2-01 Rate: 100 l 12:32: ml/hr, [place] 00 Infuse over: 1 hr, Route: IV, Dosing Weight 81.6 kg, Total Volume: 100, Priority: STAT, Start date: 05/19/19 6:32:00 WET AND DRY SUGAR BIN OPERATOR, Duration: 1 doses or times, Stop date: 05/19/19 7:31:00 WET AND DRY SUGAR BIN OPERATOR, 1.92, m2, 0 D5W 100 mL 2020-0 No 100 mL, [place] 2-01 Rate: 100 l 09:28: ml/hr, [place] Infuse over: 1 hr, Route: IV, Dosing Weight 81.6 kg, Total Volume: 100, Priority: STAT, Start date: 05/19/19 3:28:00 WET AND DRY SUGAR BIN OPERATOR, Duration: 1 doses or times, Stop date: 05/19/19 4:27:00 WET AND DRY SUGAR BIN OPERATOR, 1.92, m2, 0 D5W 1,000 2020-0 No 1,000 mL, Mem oria mL 2-01 Rate: 100 l 02:07: ml/hr, Master 00 Infuse over: 10 hr, Route: IV, Dosing Weight 81.6 kg, Total Volume: 1,000, Priority: STAT, Start date: 05/18/19 20:07:00 WET AND DRY SUGAR BIN OPERATOR, Duration: 30 day, Stop date: 06/17/19 20:06:00 WET AND DRY SUGAR BIN OPERATOR, 1.92, m2, 0 tolvaptan 2019- No Notes: Memori a -31 Same as: l 20:03: Samsca Master 00 Protonix 2019- No Notes: Memoria -31 Tablet l 15:00: should not [place] 00 be chewed or crushed. (Same as: Protonix) POLYETHYLEN No Notes: [place] E GLYCOL 05-18 Dissolve l 3350 15:00: in 8 oz of [place] 00 water or juice. (Same as: Miralax) Water 1000 No 1,000 ml, Me moria MG/ML 05-18 Rate: 50 l Injectable 14:09: ml/hr, Fabi nn Solution 00 Infuse over: 21.7 hr, Route: IV, Dosing Weight 81.6 kg, Total Volume: 1,085.5, Start date: 05/18/19 8:09:00 WET AND DRY SUGAR BIN OPERATOR, Duration: 30 day, Stop date: 06/17/19 8:08:00 WET AND DRY SUGAR BIN OPERATOR, For IMU and ICU use only. See Order Comments!! , 1.92, m2, 0 Thyroxine 2019- No Notes: Memori a 1-31 Take 1 l 12:30: hour Master 00 before or 2 hours after meal; Enteral feeds may interefere with the absorption of this medication .(Same as:Levothr oid, Synthroid) carvedilol 2019- No Notes: Memor ia - Give with l 10:00: food. Master 00 (Same As: Coreg) lansoprazol No Notes: [place] e 05-18 Take 1 l 03:00: hour Master 00 before or 2 hours after meal; Expires in 14 days. Shake well before use. (Same as:Sera alcaraz) Compound ed Product - formulatio n not commercial ly available* * Saline No Notes: Memoria Flush 0.9% 05-18 Same as: l 03:00: BD Master 00 Posiflush Sterile Seroquel No Notes: Memoria 05-18 (Same as: l 03:00: SEROquel) [place] 00 Docusate No Notes: Memoria 05-17 (Same as: l 23:00: Colace) sodium No Notes: Memoria bicarbonate 05-17 (sodium l 8.4% 22:04: bicarb [place] 8.4% (1 mEq/ml) 50 ml VL) carvedilol No Notes: Memor ia 05-17 Give with l 22:01: food. Master 00 (Same As: Coreg) Water 1000 No 1,000 ml, Me moria MG/ML 05-17 Rate: 35 l Injectable 18:01: ml/hr, Fabi nn Solution 00 Infuse over: 31 hr, Route: IV, Dosing Weight 81.6 kg, Total Volume: 1,085.5, Start date: 05/17/19 12:01:00 WET AND DRY SUGAR BIN OPERATOR, Duration: 30 day, Stop date: 06/16/19 12:00:00 WET AND DRY SUGAR BIN OPERATOR, For IMU and ICU use only. See Order Comments!! , 1.92, m2, 0 Bisacodyl No Notes: Memori a 30 (Same As: l 18:01: Dulcolax, [place] Bisco-Lax) DDAVP No Notes: Memoria -30 (Same As: l 18:00: DDAVP) [place] MEDICATION WASTE Product Size: 4 microgram Product Wasted: ___ microgram Enoxaparin No Notes: Memor ia -30 (Same as: l 17:00: Lovenox) Master Saline No Notes: Memoria Flush 0.9% 1-30 Same as: l 16:56: BD Master 00 Posiflush Sterile Potassium 2019-0 No Notes: Memori a Chloride 1-30 (Same as: l 16:56: KCL) Master 00 Infuse no faster than 10 mEq/hr if given peripheral ly. sodium 2019-0 No Notes: Memoria phosphate 1-30 Infuse l 16:56: over 4 Master 00 hour. Do not infuse phosphorou s concurrent ly in the same line as TPN or IVF that contains calcium. For double lumen central lines, phosphorou s may be infused in a separate lumen from TPN. potassium 2019-0 No Notes: Memori a phosphate 1-30 (Same as: l 16:56: K Master 00 Phosphate. ) Do not infuse phosphorou s concurrent ly in the same line as TPN or IVF that contains calcium. For double lumen central lines, phosphorou s may be infused in a separate lumen from TPN. 1 mMol phoshate has 1.47 mEq potassium Infuse over 4 hours potassium 2019-0 No Notes: Memori a phosphate-s 1-30 (Same as: l odium 16:56: Phos-NaK) Master phosphate 00 Each 1.5 250 mg-280 gm pkt has mg-160 mg 250mg oral powder phosphorou for s. Mix reconstitut w/2.5oz ion water and stir. Magnesium No Notes: Memori a Sulfate 05-17 WASTE: F/P l 16:56: - Sink; E Master 00 - Municipal Trash Bin Magnesium 2019- No Notes: Memori a Oxide 1-30 (Same as: l 16:56: Mag-Ox Master 00 400) Magnesium oxide 060ci=123v g elemental magnesium Dose=____m g magnesium oxide (___mg elemental magnesium) Calcium 2019- No Notes: Memoria Gluconate 30 WASTE: F/P [...] 30 tab, 0 Tablet Refill(s), [Protonix] Pharmacy: [email or web address] #[id number] lidocaine 2018-04 No Route: IV, Me moria (ANES) 2-23 Drug form: l 22:27: INJ, ONCE, [place] 00 Stop date: 04/09/19 16:27:00 WET AND DRY SUGAR BIN OPERATOR propofol 2018-04 No Route: IV, Mem oria (ANES) 10 2-23 Drug form: l mg 22:05: INJ, Start Master date: 04/09/19 16:05:00 WET AND DRY SUGAR BIN OPERATOR, Stop date: 04/09/19 17:05:00 WET AND DRY SUGAR BIN OPERATOR Lactated 2018-04 No Route: IV, Mem oria Ringers 2-23 Total l Injection 21:58: Volume: Fabi nn IV (ANES) 00 1,000, 1000 mL Start date: 04/09/19 15:58:00 WET AND DRY SUGAR BIN OPERATOR, Stop date: 04/09/19 16:58:00 WET AND DRY SUGAR BIN OPERATOR Lumason 2018-04 No Notes: Memoria intravenous 2-23 (Same as: l injection 18:39: Lumason) Herm ruddy 00 Administer as an IV bolus; do not administer intra-ibeth rially. Follow each injection with an intravenou s flush of 5 mL of NS. Fleet Enema 2018-04 No 12 years, Memoria 2-23 Pediatric l 17:55: Dosing, 0 [place] 00 Thyroxine 2018-04 No Notes: Memori a 2-23 Take 1 l 12:30: hour Master 00 before or 2 hours after meal; Enteral feeds may interefere with the absorption of this medication .(Same as:Levothr oid, Synthroid) Sodium 2018-04 No 1 gm, 1 Memoria Chloride 2-23 tab, l 1000 MG 06:00: Route: [place] Oral Tablet 00 PEG, Drug form: TAB, Q8H, Dosing Weight 81.818, kg, Start date: 04/09/19 0:00:00 WET AND DRY SUGAR BIN OPERATOR, Duration: 30 day, Stop date: 05/08/19 16:00:00 WET AND DRY SUGAR BIN OPERATOR, 0 Coreg 2018-04 No Notes: Memoria 2-23 Give with l 03:00: food. [place] 00 (Same As: Coreg) Lactulose 2018-04 No Notes: Memori a 667 MG/ML 2-23 (Same l Oral 03:00: as:Chronul Master Solution 00 ac) Sodium 2018-04 No 1,000 mL, Memori a Chloride 2-23 Rate: 75 l 0.9% IV 02:19: ml/hr, Master 1,000 mL 00 Infuse over: 13.3 hr, Route: IV, Dosing Weight 81.818 kg, Total Volume: 1,000, Start date: 04/08/19 20:19:00 WET AND DRY SUGAR BIN OPERATOR, Duration: 30 day, Stop date: 05/08/19 20:18:00 WET AND DRY SUGAR BIN OPERATOR, 2.02, m2, 0 Dextrose 2018-04 No 12.5 gm, Memor ia 50% Syringe 2-23 25 mL, l (D50W) 02:18: Route: [place] 00 IVP, Drug Form: INJ, Dosing Weight 81.818, kg, PRN, PRN Blood Glucose Results, Start date: 04/08/19 20:18:00 WET AND DRY SUGAR BIN OPERATOR, Duration: 30 day, Stop date: 05/08/19 20:17:00 WET AND DRY SUGAR BIN OPERATOR, 0 Glucagon 2018-04 No 1 mg, Memoria 2-23 Route: IM, l 02:18: Drug form: [place] 00 PDR/INJ, PRN, Dosing Weight 81.818, kg, PRN Blood Glucose Results, Start date: 04/08/19 20:18:00 W[employer] BIN OPERATOR, Duration: 30 day, Stop date: 05/08/19 20:17:00 WET AND DRY SUGAR BIN OPERATOR, 0 Ondansetron 2018-04 No Notes: [place] 2-23 (Same as: l 02:18: Zofran) MEDICATION WASTE Product Size: 4 mg Product Wasted: ___ mg Acetaminoph 2018-04 No Notes: Do M emoria en 2-23 not exceed l 02:18: 4 gm/day. [place] (Same as: Tylenol) pantoprazol 2018-04 No Notes: For Memoria e 2-23 IV push l 02:18: reconstitu Master te with 10 ml 0.9% sodium chloride and push over 2 minutes. (Same as: Protonix) Omnipaque 2018-04 No Notes: Memori a 300 2-22 (Same l injectable 22:13: as:Omnipaq H ermann solution 00 ue 300). WASTE: F/P - Black; E - Municipal Trash Bin Saline 2018-04 No Notes: Memoria Flush 0.9% 2-22 (Same as: l 20:55: BD Master 00 Posiflush) carvedilol 2018-04 Yes 3.125 mg [...] [place] 2-18 Daily, 0 l 16:39: Refill(s), [place] [facility] [id number] carvedilol 2018-04 No PO, 0 Memori a 2-18 Refill(s) l 15:55: [place] 00 carvedilol 2018-04 No 6.25 mg = Me moria 6.25 mg 2-18 1 tab, PO, l oral tablet 15:55: Q12H, # 60 [place] 00 tab, 0 Refill(s), [facility] [id number] levothyroxi 2018-04 No See Memori a ne 75 mcg 2-18 Instructio l (0.075 mg) 15:55: ns, 1 tab, H ermann oral tablet 00 PEG, Tuesday, Tuesday and Tuesday (once a day), 0 Refill(s), [facility] [id number] meloxicam 2018-04 Yes 15 mg = 1 Mem oria 15 mg oral 2-18 tab, PO, l tablet 15:55: Daily, # Master 00 30 tab, 0 Refill(s) Bisacodyl 2018-04 No Notes: Memori a 2-18 (Same As: l 13:47: Dulcolax, Master 00 Bisco-Lax) Sodium 2018-04 No 1 gm, 1 Memoria Chloride 2-17 tab, l 1000 MG 22:00: Route: GT, Herm ruddy Oral Tablet 00 Drug form: TAB, Q8H, Dosing Weight 79.1, kg, Start date: 04/03/19 16:00:00 W[employer] 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 (Same as: Miralax) Beneprotein 2018-04 No 1 pkt, [place] 7 gm pkt 2-17 Route: PO, l 13:30: Drug Form: [place] 00 PWDR, Dosing Weight 79.1, kg, BID-Before Meals, Start date: 04/03/19 7:30:00 W[employer] AND [employer]Y SUGAR BIN OPERATOR, Duration: 30 day, Stop date: 05/02/19 16:30:00 WET AND DRY SUGAR BIN OPERATOR NS (Bolus) 2018-04 No 500 mL, [place] IV 2-17 500 ml/hr, l 10:11: Infuse [place] 00 Over: 1 hr, Route: IV, 500, Drug form: INJ, ONCE, Priority: STAT, Dosing Weight 79.1 kg, Start date: 04/03/19 4:11:00 WET AND DRY SUGAR BIN OPERATOR, Stop date: 04/03/19 4:11:00 WET AND DRY SUGAR BIN OPERATOR, 0 Sodium 2018-04 No 2 gm, 2 Memoria Chloride 2-17 tab, l 1000 MG 06:00: Route: GT, Herm ruddy Oral Tablet 00 Drug form: TAB, Q8H, Dosing Weight 79.1, kg, Start date: 04/03/19 0:00:00 WET AND DRY SUGAR BIN OPERATOR, Duration: 30 day, Stop date: 05/02/19 16:00:00 WET AND DRY SUGAR BIN OPERATOR, 0 Beneprotein 2018-04 No Notes: [place] 7 gm pkt 2-16 (Same as: l 23:15: Beneprotei [place] 00 n) Beneprotein 2018-04 No Notes: [place] 7 gm pkt 2-16 (Same as: l 22:30: Beneprotei Master 00 n) Albuterol 2018-04 No Notes: Memori a 0.833 MG/ML -16 (Same as: l :49: Duoneb) [place] Ipratropium 00 Benson 0.167 MG/ML Inhalant Solution [DuoNeb] Isolyte S 2018-04 No Notes: Memori a PH-7.4 2-16 (Same as: l (Bolus) IV 10:10: Isolyte S He rmann 00 PH7.4, Normosol-R PH 7.4, Plasma-Lyt e A ) sterile 2018-04 No 20 mL, Memoria water 2-15 Route: l 16:59: MISC, Drug [place] 00 Form: INJ, Bedtime, PRN Other -See Comment, Start date: 04/01/19 10:59:00 WET AND DRY SUGAR BIN OPERATOR, Duration: 30 day, Stop date: 05/01/19 10:58:00 WET AND DRY SUGAR BIN OPERATOR, 0 Sodium 2018-04 No 3 gm, 3 Memoria Chloride 2-15 tab, l 1000 MG 15:49: Route: GT, Herm ruddy Oral Tablet 00 Drug form: TAB, Q8H, Dosing Weight 79.1, kg, Priority: NOW, Start date: 04/01/19 9:49:00 WET AND [employer]Y SUGAR BIN OPERATOR, Duration: 30 day, Stop date: 05/01/19 8:00:00 WET AND DRY SUGAR BIN OPERATOR, 0 Zyprexa 2018-04 No Notes: Memoria 2-15 [...] kg, PRN Agitation, Start date: 04/01/19 9:40:00 WET AND DRY SUGAR BIN OPERATOR, Duration: 30 day, Stop date: 05/01/19 9:39:00 WET AND DRY SUGAR BIN OPERATOR Zyprexa 2018-04 No Notes: Memoria 2-15 (Same as: l 00:07: ZyPREXA) Master 00 ZyPREXA 2018-04 No Notes: [facility] 2-15 (Same as: l 00:07: ZyPREXA) [place] 00 Water 1000 2018-04 No 914.5 mL, Me moria MG/ML 2-14 Rate: 50 l Injectable 06:03: ml/hr, Fabi nn Solution 00 Infuse over: 20 hr, Route: IV, Dosing Weight 79.1 kg, Total Volume: 1,000, Start date: 03/31/19 0:03:00 WET AND DRY SUGAR BIN OPERATOR, Duration: 30 day, Stop date: 04/30/19 0:02:00 WET AND DRY SUGAR BIN OPERATOR, For IMU and ICU use only. See Order Comments!! , 1.99, m2, 0 Seroquel 2018-04 No Notes: Memoria 2-13 (Same as: l 22:23: SEROquel) [place] 00 Sodium 2018-04 No 3 gm, 3 Memoria Chloride 2-13 tab, l 1000 MG 18:30: Route: PO, Herm ruddy Oral Tablet 00 Drug form: TAB, Q8H-05, Dosing Weight 79.1, kg, Start date: 03/30/19 12:30:00 WET AND DRY SUGAR BIN OPERATOR, Duration: 30 day, Stop date: 04/29/19 5:00:00 WET AND DRY SUGAR BIN OPERATOR, 0 DDAVP 2018-04 No Notes: Mem[facility] 2-13 (Same As: l 12:00: DDAVP) [place] 00 MEDICATION WASTE Product Size: 4 microgram Product Wasted: ___ microgram Water 1000 2018-04 No 914.5 mL, Me moria MG/ML 05-31 Rate: 50 l Injectable 10:07: ml/hr, Fabi nn Solution 00 Infuse over: 20 hr, Route: IV, Dosing Weight 79.1 kg, Total Volume: 1,000, Start date: 03/30/19 4:07:00 WET AND DRY SUGAR BIN OPERATOR, Duration: 30 day, Stop date: 04/29/19 4:06:00 WET AND DRY SUGAR BIN OPERATOR, For IMU and ICU use only. See Order Comments!! , 1.99, m2, 0 Hydralazine 2018-04 No Notes: [place] 2-12 (Same as: l 22:23: Apresoline Master 00 ) Push over 5 minutes Labetalol 2018-04 No 10 mg, 2 [place] 2-12 mL, Route: l 22:23: IVP, Drug [place] 00 form: INJ, Q15Min, Dosing Weight 79.1, kg, PRN Elevated BP, Start date: 03/29/19 16:23:00 WET AND DRY SUGAR BIN OPERATOR, Duration: 30 day, Stop date: 04/28/19 16:22:00 WET AND DRY SUGAR BIN OPERATOR, 0 heparin 2018-04 No Notes: Memoria sodium, 2-12 porcine l porcine 22:00: heparin Master 2500 UNT/ML 00 Injectable Solution Dextrose 5% 2018-04 No 1,000 mL, M emoria in Water IV 2-12 Rate: 50 l 1,000 mL 16:12: ml/hr, Master 00 Infuse over: 20 hr, Route: IV, Dosing Weight 79.1 kg, Total Volume: 1,000, Start date: 03/29/19 10:12:00 WET AND DRY SUGAR BIN OPERATOR, Duration: 30 day, Stop date: 04/28/19 10:11:00 WET AND DRY SUGAR BIN OPERATOR, 1.99, m2, 0 DDAVP 2018-04 No Notes: [facility] 2-12 (Same As: l 16:00: DDAVP) Master MEDICATION WASTE Product Size: 4 microgram Product Wasted: ___ microgram carvedilol 2018-04 No Notes: Memor ia 2-12 Give with l 15:00: food. [place] 00 (Same As: Coreg) docusate 2018-04 No Notes: Memoria sodium 150 2-12 (Same as: l mg/15 mL 15:00: Colace) Quoc n oral liquid 00 Levetiracet 2018-04 No Notes: [place] am 2-12 Same as: l 15:00: Keppra Master 00 sennosides, 2018-04 No Notes: [place] [facility] HOME 2-12 (Same as: l 15:00: Senokot) Master Docusate 2018-04 No Notes: [facility]oria 2-12 (Same as: l 15:00: Colace) Master (Do Not Crush) Saline 2018-04 No Notes: [facility] Flush 0.9% 2-12 Same as: l 15:00: BD [place] Posiflush Sterile Thyroxine 2018-04 No Notes: Memori a 2-12 Take 1 l 12:30: hour [place] 00 before or 2 hours after meal; Enteral feeds may interefere with the absorption of this medication .(Same as:Levothr oid, Synthroid) Water 1000 2018-04 No 1,000 mL, Me moria MG/ML 2-12 Rate: 75 l Injectable 10:59: ml/hr, Fabi nn Solution 00 Infuse over: 13.3 hr, Route: IV, Dosing Weight 79.1 kg, Total Volume: 1,000, Priority: STAT, Start date: 03/29/19 4:59:00 WET AND DRY SUGAR BIN OPERATOR, Duration: 30 day, Stop date: 04/28/19 4:58:00 WET AND DRY SUGAR BIN OPERATOR, For IMU and ICU use only. See [...] phosphate 2-12 (Same as: l 06:19: K [place] 00 Phosphate. ) Do not infuse phosphorou [...] WASTE: F/P l 06:19: - Sink; E Master 00 - Municipal Trash Bin Magnesium 2018-04 No Notes: Memori a Oxide 2-12 (Same as: l 06:19: Mag-Ox Master 00 400) Magnesium oxide [id number] g elemental magnesium Dose=____m g magnesium oxide (___mg elemental magnesium) Calcium 2018-04 No Notes: Memoria Gluconate 2-12 WASTE: F/P l 06:19: - Sink; E [place] 00 - Municipal Trash Bin Calcium 2018-04 No Notes: Memoria Carbonate 2-12 (Same As: l 500 MG 06:19: Tums) [place] Chewable 00 Calcium Tablet Carbonate 500 mg = 200 mg elemental calcium Dose = mg calcium carbonate ( mg elemental calcium) Iohexol 2018-04 No 100 mL, Memoria 2-12 Route: l 05:23: IVP, Drug [place] 00 Form: SOLN, Dosing Weight 86.364, kg, ONCALL, STAT, Start date: 03/28/19 23:23:00 WET AND DRY SUGAR BIN OPERATOR, Duration: 1 doses or times, Dose = [...] Rate: 50 l 0.9% IV 04:05: ml/hr, [place] 1,000 mL 00 Infuse over: 20 hr, Route: IV, Dosing Weight 86.364 kg, Total Volume: 1,000, Start date: 03/28/19 22:05:00 WET AND DRY SUGAR BIN OPERATOR, Duration: 30 day, Stop date: 04/27/19 22:04:00 WET AND DRY SUGAR BIN OPERATOR, 2.08, m2, 0 Acetaminoph 2018-04 No Notes: Do M emoria en 2-12 not exceed l 04:05: 4 gm/day. [place] 00 (Same as: Tylenol) Acetaminoph 2018-04 No Notes: [place] en 325 MG / 2-12 (Same as: l Hydrocodone 04:05: Gilchrist Fabi nn Bitartrate 00 325/5) Do 5 MG Oral not exceed Tablet 4gm/day of acetaminop hen. Acetaminoph 2018-04 No Notes: Do M emoria en 325 MG / 2-12 not exceed l Hydrocodone 04:05: 4gm/day of [place] Bitartrate 00 acetaminop 10 MG Oral hen. Tablet (Same as: Gilchrist 325/10) Morphine 2018-04 No Notes: Memoria 2-12 (Same l 04:05: as:MORPhin [place] 00 e Sulfate) Bisacodyl 2018-04 No Notes: Memori a 2-12 (Same As: l 04:05: Dulcolax, [place] 00 Bisco-Lax) Ondansetron 2018-04 No Notes: [place] 2-12 (Same as: l 04:05: Zofran) [place] 00 MEDICATION WASTE Product Size: 4 mg Product Wasted: ___ mg Benadryl 2018-04 No Notes: [facility] 2-12 (Same as: l 04:05: Benadryl) Master 00 phenol 2018-04 No Notes: Memoria 2-12 Chlorasept l 04:05: ic [place] Master (Same as: Chlorasept ic, Sore Throat [place]) WASTE: F/P - Black; E - Municipal Trash Bin Melatonin 2018-04 No Notes: [place] MG Extended 2-12 (Same as: l Release 04:05: Melatonin) Herm ruddy Tablet 00 Saline 2018-04 No Notes: Memoria Flush 0.9% -12 Same as: l 04:05: BD [place] Posiflush Sterile Dextrose 2018-04 No 25 gm, 50 [place] 50% Syringe 2-12 mL, Route: l (D50W) 04:05: IVP, Drug [place] 00 Form: INJ, Dosing Weight 86.364, kg, PRN, PRN Abnormal Lab Result, Start date: 03/28/19 22:05:00 WET AND DRY SUGAR BIN OPERATOR, Duration: 30 day, Stop date: 04/27/19 22:04:00 WET AND DRY SUGAR BIN OPERATOR, 0 Regular 2018-04 No Notes: [facility] Insulin, [...] Weight 90.9, kg, Start date: 03/09/19 18:00:00 WET AND DRY SUGAR BIN OPERATOR, Stop date: 04/13/19 12:00:00 WET AND DRY SUGAR BIN OPERATOR, 0 Melatonin 2018-04 Yes 3 mg = 1 Me moria MG Extended -22 tab, PO, l Release 19:44: Bedtime, Qu[place] Tablet 00 PRN Sleep, 0 Refill(s) Melatonin 2018-04 No 3 mg, 1 Mem oria MG Extended -22 tab, l Release 19:43: Route: PO, Herm ruddy Tablet 00 Dosing Weight 90.9, kg, Bedtime, PRN Sleep, Start date: 03/09/19 13:43:00 WET AND DRY SUGAR BIN OPERATOR, Duration: 30 day, Stop date: 04/08/19 13:42:00 WET AND DRY SUGAR BIN OPERATOR Sodium 2018-04 No 3 gm, [facility] Chloride 05-09 Route: l 1000 MG 19:00: PEG, TID, Fabi nn Oral Tablet 00 Dosing Weight 90.9, kg, Start date: 03/09/19 13:00:00 WET AND DRY SUGAR BIN OPERATOR, Duration: 30 day, Stop date: 04/08/19 9:00:00 WET AND DRY SUGAR BIN OPERATOR Imodium A-D 2018-04 Yes 1 mg, PO, M emoria 05-09 Q6H, PRN l 18:50: Diarrhea, [place] 00 0 Refill(s) Lanolin 2018-04 No Notes: Memoria 0.157 MG/MG 05-09 (Same as: l / Menthol 18:49: Calmosepti He rmann 0.0044 00 ne) MG/MG / Petrolatum 0.24 MG/MG / Zinc Oxide 0.206 MG/MG Topical Ointment [Calmosepti ne] Imodium A-D 2018-04 No Notes: [place] 05-09 Same as l 18:48: Imodium [place] 00 Sodium 2018-04 Yes 3 gm, PO, [...] = 1 Me moria 0.5 mg oral 05-09 tab, GT, l tablet 14:27: Q6H, Master 00 NEEDED FOR ANXIETY, 0 Refill(s) Bisacodyl 2018-04 No 10 mg = 1 Mem oria 10 MG 05-09 supp, CA, l Rectal 14:27: Q24H, [place] Suppository 00 NEEDED, 0 [Dulcolax] Refill(s) heparin 2018-04 No 2,500 unit [place] sodium, 05-09 = 1 mL, l porcine 14:27: SUB-Q, [place] 2500 UNT/ML 00 Q8H, DVT Injectable PROPHYLAXI Solution S, # 10 vial, 0 Refill(s) Albuterol 2018-04 No 3 mL, NEB, Me moria 0.833 MG/ML 05-09 Q4H, l / 14:27: NEEDED, 0 [place] Ipratropium 00 Refill(s) Benson 0.167 MG/ML Inhalant Solution [DuoNeb] Lactulose 2018-04 Yes 20 gm = 30 Me moria 667 MG/ML - mL, GT, l Oral 14:27: Q12H, 0 [place] Solution 00 Refill(s) omeprazole 2018-04 Yes 40 mg = 2 Me moria 20 mg oral 05-09 cap, GT, l delayed 14:27: Daily, 0 Qu[place] n release 00 Refill(s) capsule Senna 8.6 2018-04 Yes 8.6 mg = 1 Me moria mg oral 05-09 tab, GT, l tablet 14:27: BID, 0 [place] 00 Refill(s) Acetaminoph 2018-04 No 650 mg = 2 Memoria en 325 MG 05-09 tab, PO, l Oral Tablet 14:27: Q6H, Her addison [Tylenol] 00 NEEDED FOR PAIN, 0 Refill(s) lansoprazol 2018-04 No Notes: [place] e 05-09 Take 1 l 13:30: hour [place] 00 before or 2 hours after meal; Expires in 14 days. Shake well before use. (Same as:Prevaci d) Compound ed Product - formulatio n not commercial ly available* * lansoprazol 2018-04 No Notes: [place] e -22 Take 1 l 06:25: hour [place] 00 before or 2 hours after meal; [...] (Same as l MG / 15:00: Senokot-S) [place] sennosides, 00 Equiv. to NURSING HOME 8.6 MG Kelsey-Colac Oral Tablet e. Levetiracet 2018-04 No Notes: [place] am 100 1-20 Same as: l MG/ML Oral 15:00: Keppra Fabi nn Solution 00 [Keppra] carvedilol 2018-04 No Notes: Memor ia 1-20 Give with l 15:00: food. Master 00 (Same As: Coreg) Beneprotein 2018-04 No Notes: [place] 7 gm pkt -20 (Same as: l 13:30: Beneprotei [place] 00 n) Thyroxine 2018-04 No Notes: Memori [...] Memoria 1-20 (Same as: l 03:00: Colace) [place] 00 (Do Not Crush) sennosides, 2018-04 No Notes: [place] [facility] 1-20 (Same as: l 03:00: Senokot) [place] 00 Saline 2018-04 No Notes: Memoria Flush 0.9% 1-20 (Same as: l 03:00: BD Master 00 Posiflush) Sodium 2018-04 No 1,000 mL, Memori a Chloride 1-20 Rate: 50 l 0.9% IV 02:28: ml/hr, Am[place] 1,000 mL 00 Infuse over: 20 hr, Route: IV, Dosing Weight 90.909 kg, Total Volume: 1,000, Start date: 03/06/19 20:28:00 WET AND DRY SUGAR BIN OPERATOR, Duration: 30 day, Stop date: 04/05/19 20:27:00 WET AND DRY SUGAR BIN OPERATOR, 2.1, m2, 0 Acetaminoph 2018-04 No Notes: Do M emoria en 05-07 not exceed l 02:28: 4 gm/day. [place] 00 (Same as: Tylenol) Bisacodyl 2018-04 No Notes: Memori a 1-20 (Same As: l 02:28: Dulcolax, Master 00 Bisco-Lax) Ondansetron 2018-04 No Notes: [place] 1-20 (Same as: l 02:28: Zofran) [place] 00 MEDICATION WASTE Product Size: 4 mg Product Wasted: ___ mg Saline 2018-04 No Notes: Memoria Flush 0.9% 1-20 (Same as: l 02:28: BD [place] 00 Posiflush) Dextrose 2018-04 No 25 gm, 50 [place] 50% Syringe 1-20 mL, Route: l (D50W) 02:28: IVP, Drug [place] 00 Form: INJ, Dosing Weight 90.909, kg, PRN, PRN Abnormal Lab Result, Start date: 03/06/19 20:28:00 WET AND DRY SUGAR BIN OPERATOR, Duration: 30 day, Stop date: 04/05/19 20:27:00 WET AND DRY SUGAR BIN OPERATOR, 0 Regular 2018-04 No Notes: Memoria Insulin, [...] emoria en 1-13 0 l 21:13: Refill(s) Master 00 carvedilol 2018-04 Yes 3.125 mg = M emoria 3.125 mg -13 1 tab, GT, l oral tablet 21:13: Q12H, 0 Her addison 00 Refill(s) cefepime 2018-04 Yes 2 gm, IVP, Mem oria 13 [id number], 0 l 21:13: Refill(s) Master 00 heparin [...] tab, PEG, l tablet 21:13: Q12H, 0 [place] 00 Refill(s) senna 8.8 2018-04 Yes 8.8 [...] e -13 BID-Before l 21:13: Meals, 0 [place] 00 Refill(s) Miralax 2018-04 No Notes: Memoria 1-13 Dissolve l 15:00: in 8 oz of Master 00 water or juice. (Same as: Miralax) Levetiracet 2018-04 No Notes: [place] am 500 MG 04-30 Same as: l Oral Tablet 03:00: Keppra Herm ruddy [Keppra] 00 Dextrose 2018-04 No 12.5 gm, Memor ia 50% Syringe 1-13 25 mL, l 02:16: Route: [place] 00 IVP, Drug Form: INJ, Dosing Weight 87.9, kg, PRN, PRN Blood Glucose Results, Start date: 02/27/19 20:16:00 WET AND DRY SUGAR BIN OPERATOR, Duration: 30 day, Stop date: 03/29/19 20:15:00 WET AND DRY SUGAR BIN OPERATOR, 0 Glucagon 2018-04 No 1 mg, Memoria 04-30 Route: IM, l 02:16: Drug form: [place] 00 PDR/INJ, PRN, Dosing Weight 87.9, kg, PRN Blood Glucose Results, Start date: 02/27/19 20:16:00 WET AND DRY SUGAR BIN OPERATOR, Duration: 30 day, Stop date: 03/29/19 20:15:00 WET AND DRY SUGAR BIN OPERATOR, 0 Insulin 2018-04 No Notes: Memoria Lispro - (Same as: l 02:16: Humalog) Roll in palms of hands gently; Do not shake vigorously . WASTE: F/P - Black; E - Municipal Trash Bin Stable for 28 days at room temperatur e. Expires in days from ____Date Flagyl 2018-04 No Notes: Memoria -12 (Same as: l 02:00: Flagyl) [place] 00 Take with food/ avoid alcohol NS (Bolus) 2018-04 No 500 mL, [place] IV 1-10 500 ml/hr, l 13:05: Infuse Over: 1 hr, Route: IV, 500, Drug form: INJ, ONCE, Priority: STAT, Dosing Weight 87.9 kg, Start date: 02/25/19 7:05:00 WET AND DRY SUGAR BIN OPERATOR, Stop date: 02/25/19 7:05:00 WET AND DRY SUGAR BIN OPERATOR, 0 Seroquel 2018-04 No Notes: [facility] 1-10 (Same as: l 03:00: SEROquel) Master Zofran 2018-04 No Notes: Memoria - (Same as: l 23:11: Zofran) MEDICATION WASTE Product Size: 4 mg Product Wasted: ___ mg Thyroxine 2018-04 No 50 Memoria 1-09 microgram, l 12:30: Route: PO, Master 00 Drug form: TAB, Q630AM, Dosing Weight 87.9, kg, Start date: 02/24/19 6:30:00 WET AND DRY SUGAR BIN OPERATOR, Duration: 30 day, Stop date: 03/25/19 6:30:00 WET AND DRY SUGAR BIN OPERATOR pantoprazol 2018-04 No 40 mg, [place] e 04-26 Route: l 03:00: PEG, Q12H, Dosing Weight 87.9, kg, Start date: 02/23/19 21:00:00 WET AND DRY SUGAR BIN OPERATOR, Duration: 30 day, Stop date: 03/25/19 9:00:00 WET AND DRY SUGAR BIN OPERATOR cefepime 2018-04 No Notes: Memoria 04-26 (Same as: l 02:00: Maxipime) Master 00 MEDICATION WASTE Product Size: 2000 mg Product Wasted: ___ mg normal 2018-04 No 1,000 mL, Memori a saline 0.9% 04-26 Rate: l IV 1,000 mL 00:49: 1,000 Fabi nn 00 ml/hr, Infuse over: 1 hr, Route: IV, Dosing Weight 87.9 kg, Total Volume: 1,000, Start date: 02/23/19 18:49:00 WET AND DRY SUGAR BIN OPERATOR, Duration: 1 doses or times, Stop date: 02/23/19 19:48:00 WET AND DRY SUGAR BIN OPERATOR, 2.05, m2, 0 normal 2018-04 No 1,000 mL, Memori a saline 0.9% 04-25 Rate: l IV 1,000 mL 23:09: 1,000 Fabi nn 00 ml/hr, Infuse over: 1 hr, Route: IV, Dosing Weight 87.9 kg, Total Volume: 1,000, Start date: 02/23/19 17:09:00 WET AND DRY SUGAR BIN OPERATOR, Duration: 1 doses or times, Stop date: 02/23/19 18:08:00 WET AND DRY SUGAR BIN OPERATOR, 2.05, m2, 0 Prevacid 2018-04 No Notes: Memoria - Take 1 l 22:30: hour [place] 00 before or 2 hours after meal; Expires in 14 days. Shake well before use. (Same as:Prevaci d) Compound ed Product - formulatio n not commercial ly available* * Beneprotein 2018-04 No Notes: [place] 7 gm pkt 04-25 (Same as: l 22:30: Beneprotei [place] 00 n) sugammadex 2018-04 No Notes: Memor ia 04-25 (Same as: l 20:19: [place]) Flagyl 2018-04 No Notes: Memoria 04-25 (Same as: l 18:00: Flagyl) Avoid alcohol. ondansetron 2018-04 No Route: IV, Memoria (ANES) 04-25 Drug form: l 15:15: INJ, ONCE, Stop date: 02/23/19 9:15:00 WET AND DRY SUGAR BIN OPERATOR ePHEDrine 2018-04 No Route: IV, Me moria (ANES) 04-25 Drug form: l 15:06: INJ, ONCE, Stop date: 02/23/19 9:06:00 WET AND DRY SUGAR BIN OPERATOR ANES 2018-04 No 0.625 mg, Memoria Enalaprilat 04-25 Route: l 14:41: IVP, [place] 00 Q5Min, Dosing Weight 87.9, kg, PRN Elevated BP, Start date: 02/23/19 8:41:00 WET AND DRY SUGAR BIN OPERATOR, Duration: 4 doses or times, Stop date: Limited # of times Hydralazine 2018-04 No 10 mg, [place] 04-25 Route: l 14:41: IVP, Master 00 Q20Min, Dosing Weight 87.9, kg, PRN Elevated BP, Start date: 02/23/19 8:41:00 WET AND DRY SUGAR BIN OPERATOR, Duration: 2 doses or times, Stop date: Limited # of times esmolol 2018-04 No 10 mg, Memoria 04-25 Route: l 14:41: IVP, [place] 00 Q5Min, Dosing Weight 87.9, kg, PRN Other -See Comment, Start date: 02/23/19 8:41:00 WET AND DRY SUGAR BIN OPERATOR, Duration: 5 doses or times, Stop date: Limited # of times Labetalol 2018-04 No 10 mg, Memori a 04-25 Route: l 14:41: IVP, Master 00 Q5Min, Dosing Weight 87.9, kg, PRN Elevated BP, Start date: 02/23/19 8:41:00 WET AND DRY SUGAR BIN OPERATOR, Duration: 5 doses or times, Stop date: Limited # of times Acetaminoph 2018-04 No 1,000 mg, M emoria en 04-25 Route: PO, l 14:41: Drug form: [place] 00 TAB, ONCE, Dosing Weight 87.9, kg, PRN Pain Score 1-3, Start date: 02/23/19 8:41:00 WET AND DRY SUGAR BIN OPERATOR Oxycodone 2018-04 No 5 mg, Memoria 04-25 Route: NG, l 14:41: Drug form: Master 00 LIQ, Q4H, Dosing Weight 87.9, kg, PRN Pain Score 4-6, Start date: 02/23/19 8:41:00 WET AND DRY SUGAR BIN OPERATOR, Duration: 30 day, Stop date: 03/25/19 8:40:00 WET AND DRY SUGAR BIN OPERATOR Flumazenil 2018-04 No 0.2 mg, [place] 04-25 Route: l 14:41: IVP, PRN, Dosing Weight 87.9, kg, PRN Benzodiaze pine Reversal, Initial dose, Start date: 02/23/19 8:41:00 W[employer] AND [employer]IN OPERATOR, Duration: 30 day, Stop date: 03/25/19 8:40:00 W[employer] AND [employer]Y SUG[employer] BIN OPERATOR Naloxone 2018-04 No 0.4 mg, Memori a 04-25 Route: l 14:41: IVP, Master 00 Q2MIN, Dosing Weight 87.9, kg, PRN Narcotic Reversal, Start date: 02/23/19 8:41:00 W[employer]IN OPERATOR, Duration: 8 doses or times, Stop date: Limited # of times Ondansetron 2018-04 No 4 mg, Memor ia 04-25 Route: l 14:41: IVP, ONCE, Dosing Weight 87.9, kg, PRN Nausea & Vomiting, Start date: 02/23/19 8:41:00 W[employer] OPERATOR propofol 2018-04 No Route: IV, Mem oria (ANES) 04-25 Drug form: l 14:35: INJ, ONCE, Stop date: 02/23/19 8:35:00 W[employer] AND [employer]IN OPERATOR rocuronium 2018-04 No Route: IV, M emoria (ANES) 04-25 Drug form: l 14:35: INJ, ONCE, Stop date: 02/23/19 8:35:00 WET AND [employer]Y SUG[employer] BIN OPERATOR fentaNYL 2018-04 No Route: IV, Mem oria (ANES) 04-25 Drug form: l 14:35: INJ, ONCE, Stop date: 02/23/19 8:35:00 WET AND [employer]Y SUGAR BIN OPERATOR phenylephri 2018-04 No Route: IV, Memanthony ne (ANES) 04-25 Drug form: l 14:35: INJ, ONCE, [place] 00 Stop date: 02/23/19 8:35:00 WET AND DRY SUGAR BIN OPERATOR ceFAZolin 2018-04 No Route: IV, Me sesay (ANES) 04-25 Drug form: l 14:30: INJ, ONCE, [place] 00 Stop date: 02/23/19 8:30:00 WET AND DRY SUGAR BIN OPERATOR Adult 2018-04 No Notes: Memoria Parenteral 04-25 Must use l Nutrition 04:00: 1.2 micron He rmann Custom - 00 filter AND Peripheral Lipids (PPN not should not TPN) 2,160 be mL administer ed to patients who are allergic to soy, fish, egg or peanuts. Sodium 2018-04 No 1,000 mL, Memori a Chloride - 500 ml/hr, l 0.9% 20:15: Infuse [place] (Bolus) IV 00 Over: 2 hr, Route: IV, 1,000, Drug form: INJ, ONCE, Priority: STAT, Dosing Weight 87.9 kg, Start date: 02/22/19 14:15:00 W[employer] AND [employer]Y [employer] BIN OPERATOR, Stop date: 02/22/19 14:15:00 WET AND DRY SUGAR BIN OPERATOR, 0 Tylenol 2018-04 No Notes: Max Rito [place] 04-24 acetaminop l 20:13: hen = 4000 [place] 00 mg/day (4 gm/day). (Same as: Tylenol) Thyroxine 2018-04 No Notes: Memori a - (Same as: l 16:30: Synthroid) [place] 00 Reconstitu te with 5ml of NS. Final concentrat ion = 20 micrograms /ml. Use immediatel y after reconstitu tion and discard remaining solution. 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 Versed 2018-04 No Notes: Memoria 04-22 (Same as: l 00:04: Versed) [place] 00 MEDICATION WASTE Product Size: 2 mg Product Wasted: ___ mg Vimpat 2018-04 No Notes: Memoria 04-21 Same as: l 03:00: Vimpat [place] 00 MEDICATION WASTE Product Size: 200 mg Product Wasted: ___ mg heparin 2018-04 No Notes: Memoria sodium, 04-20 porcine l porcine 22:00: heparin [place] 2500 UNT/ML 00 Injectable Solution Vimpat + 2018-04 No Notes: Memoria Sodium 04-20 Same as: l Chloride 21:19: Vimpat [place] 0.9% IV 100 00 mL MEDICATION WASTE Product Size: 200 mg Product Wasted: 0 mg Vimpat 2018-04 No Notes: Memoria 04-20 Same as: l 20:52: Vimpat [place] 00 MEDICATION WASTE Product Size: 200 mg Product Wasted: 0 mg Labetalol 2018-04 No 20 mg, 4 [place] 04-20 mL, Route: l 17:40: IVP, Drug form: INJ, Q15Min, Dosing Weight 87.9, kg, PRN Hypertensi on, Start date: 02/18/19 11:40:00 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 Final concentrat ion = 20 micrograms /ml. Use immediatel y after reconstitu tion and discard remaining solution. Dexmedetomi 2018-04 No Notes: Use Memoria dine 04-20 the l 15:43: following [place] 00 cdm for hsos1zlt. Isolyte S 2018-04 No Notes: Memori a PH 7.4 1000 04-20 (Same as: l mL 14:45: Isolyte S Master 00 PH7.4, Normosol-R PH 7.4, Plasma-Lyt e A ) normal 2018-04 No 1,000 mL, Memori a saline 0.9% - Rate: 50 l IV 1,000 mL 21:31: ml/hr, Herm ruddy 00 Infuse over: 20 hr, Route: IV, Dosing Weight 87.9 kg, Total Volume: 1,000, Start date: 02/17/19 16:31:00 CDT, Duration: 30 day, Stop date: 03/19/19 16:30:00 WET AND [employer]Y SUGAR BIN OPERATOR, 2.05, m2, 0 normal 2018- No 2,000 mL, Memori a saline 0.9% 04-19 Rate: 50 l IV 2,000 mL 18:17: ml/hr, Herm ruddy 00 Infuse over: 40 hr, Route: IV, Dosing Weight 87.9 kg, Total Volume: 2,000, Start date: 02/17/19 13:17:00 CDT, Duration: 1 doses or times, Stop date: 02/18/19 13:16:00 WET AND DRY SUGAR BIN OPERATOR, 2.05, m2, 0 Ativan 2018-04 No Notes: Memoria - (Same as: l 17:15: Ativan) Master 00 Morphine 2018- No Notes: Memoria - (Same l 16:58: as:MORPhin [place] 00 e Sulfate) Valproic 2018-04 No 1,500 mg, [place] Acid 100 04-19 Route: IV, l MG/ML 13:41: ONCE, [place] Injectable 00 Dosing Solution Weight 89, kg, Start date: 02/17/19 8:41:00 CDT, Stop date: 02/17/19 8:41:00 CDT Valproic 2018-04 No 1,500 gm, [place] Acid 100 04-19 Route: IV, l MG/ML 13:11: ONCE, [place] Injectable 00 Dosing Solution Weight 89, kg, Priority: STAT, Start date: 02/17/19 8:11:00 CDT, Stop date: 02/17/19 8:11:00 CDT Labetalol 2018-04 No 10 mg, 2 [place] 1-02 mL, Route: l 13:10: IVP, Drug form: INJ, Q15Min, Dosing Weight 89, kg, PRN Hypertensi on, Start date: 02/17/19 8:10:00 CDT, Duration: 3 doses or times, Stop date: 03/17/19 0:00:00 WET AND DRY SUGAR BIN OPERATOR, 0 NS 1,000 mL 2018-04 No 1,000 mL, Nathalie emoria 04-19 Rate: 40 l 08:00: ml/hr, [place] 00 Infuse over: 25 hr, Route: IV, Dosing Weight 89 kg, Total Volume: 1,000, Start date: 02/17/19 3:00:00 CDT, Duration: 30 day, Stop date: 03/19/19 2:59:00 WET AND DRY SUGAR BIN OPERATOR, 2.06, m2, 0 NS (Bolus) 2018-04 No 500 mL, [place] IV 04-19 500 ml/hr, l 07:47: Infuse Master 00 Over: 1 hr, Route: IV, 500, Drug form: INJ, ONCE, Priority: STAT, Dosing Weight 89 kg, Start date: 02/17/19 2:47:00 CDT, Stop date: 02/17/19 2:47:00 CDT, 0 NS 1,000 mL 2018-04 No 1,000 mL, Nathalie emoria 04-19 Rate: 100 l 07:47: ml/hr, [place] 00 Infuse over: 10 hr, Route: IV, Dosing Weight 89 kg, Total Volume: 1,000, Start date: 02/17/19 2:47:00 CDT, Duration: 30 day, Stop date: 03/19/19 2:46:00 WET AND DRY SUGAR BIN OPERATOR, 2.06, m2, 0 Norepinephr 2018-04 No Notes: Not Memoria ine 04-19 for direct l 07:46: administra [place] 00 tion - DILUTE. Protect from light. (Same as:Levophe d). Administer by either central venous catheter or peripheral ly-inserte d central catheter (PICC) line. Lidocaine 2018-04 No Notes: Memori a Hydrochlori 04-19 (Same as: l de 0.02 03:53: Uro-Jet) Quoc n MG/MG 00 Topical Gel Dexmedetomi 2018-04 No Notes: Use Memoria dine 04-18 the l 21:54: following [place] 00 cdm for [id number]. heparin 2018-04 No Notes: Memoria sodium, 04-18 porcine l porcine 21:00: heparin [place] 2500 UNT/ML 00 Injectable Solution propofol 10 2018-04 No Notes: If M emoria mg/mL 04-18 Diprivan - l (Titrate.) 19:45: change Fabi nn IV 1,000 mg 00 bottle & tubing every 12 hr Per state nursing law propofol can only be given by a nurse if patient is intubated or being intubated (unless the nurse is a B[employer]K [employer]ANK CAR UNLOADER). Same as: Diprivan Albuterol 2018-04 No Notes: SEE Me moria 0.83 MG/ML 04-18 RT l Inhalant 08:19: DOCUMENTAT Her addison Solution 00 ION (Same as: Proventil) Albuterol 2018-04 No Notes: Memori a 0.833 MG/ML 04-18 (Same as: l / 07:00: Duoneb) [place] Ipratropium 00 Benson 0.167 MG/ML Inhalant Solution [DuoNeb] Sodium 2018-04 No Notes: SEE Memor ia Chloride 3% 04-18 RT l inhalation 07:00: DOCUMENTAT H ermann solution 00 ION (Same as: Hypertonic Saline 3%, Inhalation ) Coreg 2018-04 No 3.125 mg, Memoria 04-18 Route: GT, l 02:00: Drug form: [place] 00 TAB, Q12H, Dosing Weight 89, kg, Start date: 02/15/19 21:00:00 CDT, Duration: 30 day, Stop date: 03/17/19 9:00:00 WET AND DRY SUGAR BIN OPERATOR normal 2018-04 No 1,000 mL, Memori a saline 0.9% 0 Rate: 50 l IV 1,000 mL 21:50: ml/hr, Herm ruddy Infuse over: 20 hr, Route: IV, Dosing Weight 89 kg, Total Volume: 1,000, Start date: 02/15/19 16:50:00 CDT, Duration: 30 day, Stop date: 03/17/19 16:49:00 WET AND DRY SUGAR BIN OPERATOR, 2.06, m2, 0 Versed 2018-04 No Notes: Memoria 0-31 (Same as: l 19:25: Versed) Master MEDICATION WASTE Product Size: 2 mg Product Wasted: ___ mg Coreg 2018-04 No Notes: Memoria 0-31 Give with l 14:42: food. [place] 00 (Same As: Coreg) Docusate 2018-04 No Notes: Memoria 0-31 (Same as: l 14:00: Colace) [place] 00 sennosides, 2018-04 No Notes: [place] NURSING HOME 0-31 (Same as: l 14:00: Senokot) [place] 00 Vitamin K1 2018-04 No Notes: Memor [...] a 0-31 Take 1 l 11:30: hour Master 00 before or 2 hours after meal; Enteral feeds may interefere with the absorption of this medication .(Same as:Levothr oid, Synthroid) ocular 2018-04 No Notes: Memoria lubricant 0-31 (Same as: l 11:00: Lacri-Lube [place] 00 , Puralube, Duratears Naturale, Artificial Tears, and Tears Again ) NS 1,000 mL 2018-04 No 1,000 mL, M emoria 0-31 Rate: 75 l 09:42: ml/hr, Infuse over: 13.3 hr, Route: IV, Dosing Weight 89 kg, Total Volume: 1,000, Start date: 02/15/19 4:42:00 CDT, Duration: 30 day, Stop date: 03/17/19 4:41:00 WET AND DRY SUGAR BIN OPERATOR, 2.06, m2, 0 Acetaminoph 2018-04 No Notes: Max Memoria en 0-31 acetaminop l 09:39: hen = [place] 00 4000mg/day (4 gm/day). (Same as: Tylenol) Dextrose 2018-04 No 12.5 gm, Memor ia 50% Syringe 0-31 25 mL, l 09:37: Route: Master 00 IVP, Drug Form: INJ, Dosing Weight 89, kg, PRN, PRN Blood Glucose Results, Start date: 02/15/19 4:37:00 CDT, Duration: 30 day, Stop date: 03/17/19 3:36:00 WET AND DRY SUGAR BIN OPERATOR, 0 Glucagon 2018-04 No 1 mg, Memoria 0-31 Route: IM, l 09:37: Drug form: Master 00 PDR/INJ, PRN, Dosing Weight 89, kg, PRN Blood Glucose Results, Start date: 02/15/19 4:37:00 CDT, Duration: 30 day, Stop date: 03/17/19 3:36:00 WET AND DRY SUGAR BIN OPERATOR, 0 Insulin 2018-04 No Notes: Memoria regular 0-31 (Same as: l 09:37: Humulin R) [place] 00 Roll in palms of hands gently; Do not shake vigorously . WASTE: F/P - Black; E - Municipal Trash Bin Stable for 31 days at room temperatur e Expires in days from ____Date Potassium 2018-04 No Notes: Memori a Chloride 0-31 (Same as: l 09:37: KCL) [place] 00 Infuse no faster than 10 mEq/hr if given peripheral ly. sodium 2018-04 No Notes: Memoria phosphate 0-31 Infuse l 09:37: over 4 [place] 00 hour. Do not infuse phosphorou s [...] 0-31 (Same as: l odium 09:37: Phos-NaK) [place] phosphate 00 Each 1.5 250 mg-280 gm pkt has mg-160 mg 250mg oral powder phosphorou for s. Mix reconstitut w/2.5oz ion water and stir. Magnesium 2018-04 No Notes: Memori a Sulfate 0-31 WASTE: F/P l 09:37: - Sink; E Master 00 - Municipal Trash Bin Magnesium 2018-04 No Notes: Memori a Oxide 0-31 (Same as: l 09:37: Mag-Ox [place] 00 400) Magnesium oxide [id number] g elemental magnesium Dose=____m g magnesium oxide (___mg elemental magnesium) Calcium 2018-04 No Notes: Memoria Gluconate 0-31 WASTE: F/P l 09:37: - Sink; E [place] - Municipal Trash Bin Calcium 2018-04 No Notes: Memoria Carbonate 0-31 (Same As: l 500 MG 09:37: Tums) Master Chewable 00 Calcium Tablet Carbonate 500 mg = 200 mg elemental calcium Dose = mg calcium carbonate ( mg elemental calcium) Fentanyl 2018-04 No Notes: Memoria 0-31 (Same as: l 07:04: Sublimaze) Master 00 Preservat kemal free. Fentanyl 2018-04 No 1,000 Memoria 0-31 microgram, l 05:56: 20 mL, [place] 00 Rate: Titrate, Start Dose: 50 microgram/ [...] moria IV 0-31 1,000 l 05:51: ml/hr, [place] 00 Infuse Over: 1 hr, Route: IV, [...] 0-31 Total l 0.9% IV 01:00: Volume: [place] (ANES) 500 00 500, Start mL date: 02/14/19 20:00:00 CDT, Stop date: 02/14/19 21:00:00 CDT rocuronium 2018-04 No Route: IV, M emoria (ANES) 0-31 Drug form: l 00:29: INJ, ONCE, [place] 00 Stop date: 02/14/19 19:29:00 CDT phenylephri 2018-04 No Route: IV, Memoria ne (ANES) 0-31 Drug form: l 00:29: INJ, ONCE, [place] 00 Stop date: 02/14/19 19:29:00 CDT fentaNYL 2018-04 No Route: IV, Mem oria (ANES) 0-31 Drug form: l 00:14: INJ, ONCE, [place] 00 Stop date: 02/14/19 19:14:00 CDT ceFAZolin 2018-04 No Route: IV, Me moria (ANES) 0-31 Drug form: l 00:04: INJ, ONCE, [place] 00 Stop date: 02/14/19 19:04:00 CDT Sodium [...] Memoria 0-30 Route: l 23:01: IVP, Drug [place] Form: SOLN, Dosing Weight 90, kg, ONCALL, [...] [place] 0-30 Route: l 22:43: IVPB, Drug [place] form: SOLN, ONCE, kg, Priority: STAT, Start date: 02/14/19 17:43:00 CDT, Stop date: 02/14/19 17:43:00 CDT Saline 2018-04 No 10 mL, Memoria Flush 0.9% 030 Route: l 22:05: IVP, Drug [place] Form: INJ, kg, PRN, PRN Line Flush, Start date: 02/14/19 17:05:00 CDT, Duration: 30 day, Stop date: 03/16/19 16:04:00 WET AND DRY SUGAR BIN OPERATOR, 0 Vital Signs Vital Name Observation Time Observation Value Comments Source Heart rate 2019-09-28 14:25:00 64 /min [facility] Respiratory rate 2019-09-28 14:25:00 18 /min [facility] Oxygen saturation in 2019-09-28 14:25:00 98 /min [facility] - Arterial blood by Medical Ce nter Pulse oximetry Systolic blood 2019-09-28 11:40:00 98 mm[Hg] [facility] Diastolic blood 2019-09-28 11:40:00 56 mm[Hg] [facility] Body temperature 2019-09-28 11:40:00 36.67 Leela [facility] Body height 2019-09-22 14:00:00 160 cm [facility] Body weight 2019-09-22 14:00:00 68.04 kg [facility] BMI 2019-09-22 14:00:00 26.57 kg/m2 [facility] Heart Rate 2019-07-09 20:06:00 [facility] [place] Respitory Rate 2019-07-09 20:06:00 Memori al Master Systolic (mm Hg) 2019-07-09 20:06:00 Rito rial [place] Diastolic (mm Hg) 2019-07-09 20:06:00 Mem orial [place] Heart Rate 2019-07-09 17:17:00 Memorial [place] Respitory Rate 2019-07-09 17:17:00 Memori al Master Systolic (mm Hg) 2019-07-09 17:17:00 Rito rial Master Diastolic (mm Hg) 2019-07-09 17:17:00 Mem orial [place] Heart Rate 2019-07-09 13:25:00 Memorial [place] Respitory Rate 2019-07-09 13:25:00 Memori al Master Systolic (mm Hg) 2019-07-09 13:25:00 Rito rial Master Diastolic (mm Hg) 2019-07-09 13:25:00 Mem orial [place] Temperature Oral (F) 2019-07-07 08:03:00 97.6 [facility] 2019-07-07 07:58:00 167.64 [facility] Weight 2019-07-07 07:58:00 [facility] BMI Calculated 2019-07-07 07:58:00 Memori al [place] Temperature Oral (F) 2019-05-27 14:00:00 97.7 F [facility] [place] Heart Rate 2019-05-27 14:00:00 Memorial Master Respitory Rate 2019-05-27 14:00:00 Memori al Master Systolic (mm Hg) 2019-05-27 14:00:00 Rito rial [place] Diastolic (mm Hg) 2019-05-27 14:00:00 Mem orial Master Temperature Oral (F) 2019-05-27 10:00:00 97.4 F [facility] Master Heart Rate 2019-05-27 10:00:00 Memorial Master Respitory Rate 2019-05-27 10:00:00 Memori al [place] Systolic (mm Hg) 2019-05-27 10:00:00 Rito rial [place] Diastolic (mm Hg) 2019-05-27 10:00:00 Mem orial Master Temperature Oral (F) 2019-05-27 06:01:00 98.5 F [facility] [place] Heart Rate 2019-05-27 06:01:00 Memorial Master Respitory Rate 2019-05-27 06:01:00 Memori al Master Systolic (mm Hg) 2019-05-27 06:01:00 Rito rial [place] Diastolic (mm Hg) 2019-05-27 06:01:00 Mem orial [place] Height 2019-05-17 17:16:00 157.48 cm Memorial Master Weight 2019-05-17 17:16:00 [facility] [place] BMI Calculated 2019-05-17 17:16:00 Memori al Master Height 2019-05-17 16:33:00 165.1 cm Memorial Master Weight 2019-05-17 16:33:00 Memorial [place] BMI Calculated 2019-05-17 16:33:00 Memori al Master Heart Rate 2019-04-10 21:00:00 Memorial Master Respitory Rate 2019-04-10 21:00:00 Memori al Master Systolic (mm Hg) 2019-04-10 21:00:00 Rito rial [place] Diastolic (mm Hg) 2019-04-10 21:00:00 Mem orial Master Heart Rate 2019-04-10 17:11:00 Memorial Master Respitory Rate 2019-04-10 17:11:00 Memori al Master Systolic (mm Hg) 2019-04-10 17:11:00 Rito rial [place] Diastolic (mm Hg) 2019-04-10 17:11:00 Mem orial [place] Heart Rate 2019-04-10 13:45:00 Memorial [place] Respitory Rate 2019-04-10 13:45:00 Memori al Master Systolic (mm Hg) 2019-04-10 13:45:00 Rito rial Master Diastolic (mm Hg) 2019-04-10 13:45:00 Mem orial [place] Height 2019-04-10 11:48:00 154.94 cm Memorial [place] Weight 2019-04-10 11:48:00 Memorial [place] BMI Calculated 2019-04-10 11:48:00 Memori al [place] Height 2019-04-09 02:35:00 157.48 cm Memorial [place] Weight 2019-04-09 02:35:00 Memorial Master BMI Calculated 2019-04-09 02:35:00 Memori al Master Temperature Oral (F) 2019-04-09 02:09:00 98.3 F Memorial Master Weight 2019-04-08 20:55:00 Memorial [place] Heart Rate 2019-04-06 21:34:00 Memorial Master Respitory Rate 2019-04-06 21:34:00 Memori al Master Systolic (mm Hg) 2019-04-06 21:34:00 Rito rial Master Diastolic (mm Hg) 2019-04-06 21:34:00 Mem orial Master Heart Rate 2019-04-06 17:14:00 Memorial Master Respitory Rate 2019-04-06 17:14:00 Memori al Master Systolic (mm Hg) 2019-04-06 17:14:00 Rito rial Master Diastolic (mm Hg) 2019-04-06 17:14:00 Mem orial Master Heart Rate 2019-04-06 13:46:00 Memorial [place] Respitory Rate 2019-04-06 13:46:00 Memori al [place] Systolic (mm Hg) 2019-04-06 13:46:00 Rito rial [place] Diastolic (mm Hg) 2019-04-06 13:46:00 Mem orial [place] Temperature Oral (F) 2019-04-05 05:50:00 98.5 F Memorial [place] Temperature Oral (F) 2019-04-04 21:32:00 98.6 F Memorial [place] Temperature Oral (F) 2019-04-04 17:35:00 98.7 F Memorial [place] Height 2019-04-02 12:35:00 177.8 cm Memorial Master Height 2019-03-30 11:56:00 177.8 cm Memorial Master Height 2019-03-29 11:00:00 177.8 cm Memorial [place] Weight 2019-03-29 06:16:00 Memorial Master BMI Calculated 2019-03-29 06:16:00 Memori al Master Weight 2019-03-29 05:15:00 Memorial [place] BMI Calculated 2019-03-29 05:15:00 Memori al Master BMI Calculated 2019-03-29 02:23:00 Memori al Master Weight 2019-03-29 02:23:00 Memorial Master Respitory Rate 2019-03-29 01:12:00 Memori al [place] Heart Rate 2019-03-29 01:12:00 Memorial Master Systolic (mm Hg) 2019-03-29 01:12:00 Rito rial [place] Diastolic (mm Hg) 2019-03-29 01:12:00 Mem orial [place] Systolic (mm Hg) 2019-03-28 21:22:00 Rito rial Master Diastolic (mm Hg) 2019-03-28 21:22:00 Mem orial Master Heart Rate 2019-03-28 21:22:00 Memorial Master Respitory Rate 2019-03-28 21:22:00 Memori al [place] Temperature Oral (F) 2019-03-28 21:22:00 98.2 F Memorial Master Height 2019-03-28 21:22:00 177.8 cm Memorial [place] BMI Calculated 2019-03-28 21:22:00 Memori al [place] Weight 2019-03-28 21:22:00 Memorial Master Heart Rate 2019-03-09 18:01:00 [facility] [place] Respitory Rate 2019-03-09 18:01:00 Memori al Master Systolic (mm Hg) 2019-03-09 18:01:00 Rito rial Master Diastolic (mm Hg) 2019-03-09 18:01:00 Mem orial Master Heart Rate 2019-03-09 13:22:00 Memorial [place] Respitory Rate 2019-03-09 13:22:00 Memori al Master Systolic (mm Hg) 2019-03-09 13:22:00 Rito rial Master Diastolic (mm Hg) 2019-03-09 13:22:00 Mem orial Master Heart Rate 2019-03-09 10:23:00 Memorial [place] Respitory Rate 2019-03-09 10:23:00 Memori al [place] Systolic (mm Hg) 2019-03-09 10:23:00 Rito rial Master Diastolic (mm Hg) 2019-03-09 10:23:00 Mem orial [place] Temperature Oral (F) 2019-03-08 10:16:00 98.4 F Memorial Master Temperature Oral (F) 2019-03-08 06:04:00 97.9 F [facility] [place] Temperature Oral (F) 2019-03-08 02:23:00 97.9 F Memorial Master Height 2019-03-07 04:48:00 162.56 cm Memorial [place] Weight 2019-03-07 04:48:00 [facility] [place] BMI Calculated 2019-03-07 04:48:00 Memori al [place] Height 2019-03-06 21:51:00 170.18 cm [facility] [place] BMI Calculated 2019-03-06 21:51:00 Memori al Master Weight 2019-03-06 21:51:00 Memorial Master Heart Rate 2019-02-28 21:30:00 Memorial Master Respitory Rate 2019-02-28 21:30:00 Memori al Master Systolic (mm Hg) 2019-02-28 21:30:00 Rito rial Master Diastolic (mm Hg) 2019-02-28 21:30:00 Mem orial Master Temperature Oral (F) 2019-02-28 18:00:00 98.3 F [facility] Master Heart Rate 2019-02-28 18:00:00 Memorial [place] Respitory Rate 2019-02-28 18:00:00 Memori al Master Systolic (mm Hg) 2019-02-28 18:00:00 Rito rial [place] Diastolic (mm Hg) 2019-02-28 18:00:00 Mem orial [place] Temperature Oral (F) 2019-02-28 13:33:00 97.6 F Memorial [place] Heart Rate 2019-02-28 13:33:00 Memorial Master Respitory Rate 2019-02-28 13:33:00 Memori al [place] Systolic (mm Hg) 2019-02-28 13:33:00 Rito rial Master Diastolic (mm Hg) 2019-02-28 13:33:00 Mem orial Master Temperature Oral (F) 2019-02-28 01:27:00 98.8 F Memorial [place] Height 2019-02-18 11:00:00 167.64 cm Memorial Master Height 2019-02-17 17:08:00 167.64 cm Memorial Master BMI Calculated 2019-02-17 17:08:00 Memori al [place] Weight 2019-02-17 17:08:00 [facility] [place] Height 2019-02-17 10:41:00 167.64 cm [facility] [place] Weight 2019-02-15 08:54:00 Nicole Thao BMI Calculated 2019-02-15 08:54:00 Obed hoffman Master Weight 2019-02-15 08:16:00 Memorial Master BMI Calculated 2019-02-15 08:16:00 Obed Escobedo Procedures Procedure Date / Time Performing Clinician Source Performed REPORT OF PROCEDURE - 2019-10-01 13:20:56 Provider, Default [facility] ENDOSCOPY SCAN Scanning [facility] RHYTHM STRIP - SCAN 2019-10-01 13:20:49 Provider, Default [facility] POCT-GLUCOSE METER 2019-09-28 12:17:00 Sebastian, [facility] POCT-GLUCOSE METER 2019-09-28 08:02:00 Sebastian, [facility] CBC W/PLT COUNT & AUTO 2019-09-28 05:19:00 Sebastian, [facility] BASIC METABOLIC PANEL 2019-09-28 05:19:00 Sebastian, [facility] () [facility] MAGNESIUM 2019-09-28 05:19:00 Eusebio King In [facility] PHOSPHORUS 2019-09-28 05:19:00 Eusebio King In [facility] POCT-GLUCOSE METER 2019-09-27 22:20:00 Sebastian, [facility] POCT-GLUCOSE METER 2019-09-27 17:18:00 Sebastian, [facility] XR CHEST 1 VIEW 2019-09-27 15:32:00 Sebastian, [facility] PORTABLE/BEDSIDE [facility] POCT-GLUCOSE METER 2019-09-27 10:44:00 Sebastian, [facility] POCT-GLUCOSE METER 2019-09-27 07:23:00 Sebastian, [facility] MAGNESIUM 2019-09-27 06:39:00 Eusebio King In [facility] PHOSPHORUS 2019-09-27 06:39:00 Eusebio King In [facility] POCT-GLUCOSE METER 2019-09-27 06:11:00 Sebastian, [facility] POCT-GLUCOSE METER 2019-09-27 00:55:00 Sebastian, [facility] POCT-GLUCOSE METER 2019-09-26 17:15:00 Sebastian, [facility] SARS-COV2/RT-PCR ([facility] & 2019-09-26 16:18:00 Sebastian, [facility] POCT-GLUCOSE METER 2019-09-26 12:04:00 Sebastian, [facility] MAGNESIUM 2019-09-26 05:24:00 Eusebio King In [facility] PHOSPHORUS 2019-09-26 05:24:00 Eusebio King In [facility] POCT-GLUCOSE METER 2019-09-25 17:35:00 Sebastian, [facility] POCT-GLUCOSE METER 2019-09-25 11:23:00 Sebastian, [facility] POCT-GLUCOSE METER 2019-09-25 06:22:00 Sebastian, [facility] MAGNESIUM 2019-09-25 05:12:00 Eusebio King In [facility] PHOSPHORUS 2019-09-25 05:12:00 Eusebio King In [facility] POCT-GLUCOSE METER 2019-09-24 23:59:00 Sebastian, [facility] POCT-GLUCOSE METER 2019-09-24 18:07:00 Sebastian, [facility] POCT-GLUCOSE METER 2019-09-24 14:01:00 Sebastian, [facility] POCT-GLUCOSE METER 2019-09-24 06:10:00 Sebastian, [facility] CBC W/PLT COUNT & AUTO 2019-09-24 03:47:00 Eusebio King In [facility] BASIC METABOLIC PANEL 2019-09-24 03:47:[address] [facility] (7) [facility] MAGNESIUM 2019-09-24 03:47:00 Eusebio King In [facility] PHOSPHORUS 2019-09-24 03:47:00 Eusebio King In [facility] POCT-GLUCOSE METER 2019-09-23 23:22:00 Linda Cortes [facility] POCT-GLUCOSE METER 2019-09-23 17:56:00 Eusebio King In [facility] POCT-GLUCOSE METER 2019-09-23 13:53:00 Eusebio King In [facility] POCT-GLUCOSE METER 2019-09-23 12:53:00 Eusebio King In [facility] URINALYSIS WITH 2019-09-23 12:39:00 Eusebio King In [facility] MICROSCOPIC IF INDICATED [facility] URINALYSIS MICROSCOPIC 2019-09-23 12:39:00 Eusebio King In [facility] POCT-GLUCOSE METER 2019-09-23 06:09:00 Eusebio King In [facility] BASIC METABOLIC PANEL 2019-09-23 05:18:[address] [facility] () [facility] VITAMIN D, 25-HYDROXY 2019-09-23 05:18:00 Eusebio King In [facility] MAGNESIUM 2019-09-23 05:18:00 Eusebio King In [facility] PHOSPHORUS 2019-09-23 05:18:00 Eusebio King In [facility] POCT-GLUCOSE METER 2019-09-22 23:52:00 Eusebio King In [facility] BLOOD CULTURE 2019-09-22 23:00:00 Jacob Alba [facility] POCT-GLUCOSE METER 2019-09-22 17:15:00 Eusebio King In [facility] XR CHEST 1 VIEW 2019-09-22 15:58:00 Eusebio King In [facility] PORTABLE/BEDSIDE [facility] HIV-1 ANTIGEN WITH 2019-09-22 15:05:00 Eusebio King In [facility] HIV-1/2 ANTIBODY [facility] RPR 2019-09-22 15:05:00 Eusebio King In [facility] POCT-GLUCOSE METER 2019-09-22 11:54:00 Eusebio King [facility] TSH/FREE T4 IF INDICATED 2019-09-22 06:22:[address] [facility] VITAMIN B12 AND FOLATE 2019-09-22 06:22:00 [facility] 2019-09-22 06:22:00 [facility]a [facility] C-REACTIVE PROTEIN 2019-09-22 06:22:00 AngélicaKhari alva [facility] AMMONIA 2019-09-22 06:22:00 [facility]a [facility] TROPONIN I 2019-09-22 06:22:00 Lencho [facility] T4, FREE 2019-09-22 06:22:00 [facility]a [facility] CBC W/PLT COUNT & AUTO 2019-09-22 01:46:00 Lencho [facility] VALPROIC ACID LEVEL, 2019-09-22 01:46:00 Khari Lindsay [facility] TROPONIN I 2019-09-22 01:46:00 Lencho [facility] HEMOGLOBIN A1C 2019-09-22 01:46:00 Lencho [facility] BASIC METABOLIC PANEL 2019-09-22 01:46:[address] [facility] (7) [facility] PROTHROMBIN TIME/INR 2019-09-22 01:46:00 Lencho [facility] HEPATIC FUNCTION PANEL 2019-09-22 01:46:00 Lencho [facility] [U] XRAY THORACOLUMBAR 2019-04-25 00:00:00 [facility] SPINE AP AND LAT. 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 Plan of [...] 00:00:00 (1 of 1 - Medical Center QQGY53_Nexjbfq PCV13) [code = PNEUMOCOCCAL 65+ YRS (1 of 1 - BTAD17_Xxjempo PCV13)] Encounters Start End Encounter Admission Attending Care Care Encounter Source Date/Time Date/Time Type Type Clinicians Facility Department ID 2019-05-17 Inpatient [facility] MED [id number] MHS W 10:14:00 2020-06-30 2020-06-30 Outpatient Amrit [facility] [id number] 00:00:00 00:00:00 Anthony [id number] [place] [id number] 2020-06-13 2020-06-13 Juan Antonio Brooke [facility] [id number] 00:00:00 00:00:00 Emeterio Collins [id number] [place] [id number] Professio [id number] [address] 2020-05-12 2020-05-12 Outpatient Amrit [facility] [id number] 00:00:00 00:00:00 Anthony [id number] [place] [id number] 2019-08-17 2019-08-17 [id number] 08:30:00 08:30:00 Marissa 00 2019-07-08 2019-07-09 Outpatient Keon SL SL [id number] 09:41:00 17:47:00 Eloise Fernandes 2019-07-08 2019-07-07 Inpatient E MHFB MED [id number] MHFB 09:41:00 01:54:00 2019-05-17 2019-05-27 Outpatient Kirill Snyder [facility] M[facility] [id number] 10:14:00 14:19:00 Lugo 30 2019-04-25 2019-04-25 Outpatient [facility] [id number] 07:30:00 08:15:47 2019-04-25 2019-04-25 [facility] SHANIKA [facility] [id number] [facility] 07:30:00 07:30:00 t; Eric FULLER at [facility], [facility] Eric FULLER [facility] 2019-04-08 2019-04-10 Outpatient Lisha Brijesh MHSL MHSL [id number] 14:39:53 17:44:00 Dougie 2019-04-08 2019-04-08 Inpatient E MHFB MED [id number] MHFB 19:32:00 14:39:00 2019-03-28 2019-04-06 Outpatient Godfrey [facility] [id number] 20:20:21 19:41:00 Magalie 2019-03-28 2019-03-28 Inpatient E [facility] MHHH [id number] MHHH 22:05:00 20:20:00 2019-03-28 2019-03-28 Outpatient Debo-Evaristo MHPL MHPL [id number] 15:21:29 19:49:00 Irina schilling 2019-03-28 2019-03-28 Emergency E MHBL MHBL [id number] MHBL 15:21:00 15:21:00 2019-03-19 2019-03-19 Outpatient Florenciobuck MHOIH MHOIH [id number] 16:43:00 23:59:00 Chava Navarrete 2019-03-06 2019-03-09 Outpatient Emma [facility] [id number] 15:44:12 15:46:00 Oni Hunter David 2019-03-09 2019-03-06 Inpatient E [facility] M[facility]H [id number] MHHH 11:09:00 20:28:00 2019-02-14 2019-02-28 Outpatient Horace [facility] [id number] 17:00:00 15:50:00 Dalia Deng 2019-02-14 2019-02-14 Outpatient [facility] RIC [id number] [facility] 18:48:00 18:48:00 2019-02-14 2019-02-14 Inpatient E [facility] [id number] [facility] 18:06:00 17:02:00 Results Test Description Test Time Test Comments Results Result Comments Source Vitamin B1 2019-09-28 20:17:00 Test Item Value Reference Range Interpretation Comme nts Vitamin B1,LCMSMS (test 34 nmol/L 8-30 H Shelbi min supplementation code = 1258861) within 24 ho urs prior to blood draw may affect the accuracy of res ults. This test was d krystle and its analytical performance characteristics have been determined by [employer]. It has not been cleared or approved by theA. This as say has been validated pursu ant to the CLIA regulation s and is used for clinic al purposes. TIGIST (test code = TIGIST) Performing Lab *[facility] [employer] [facility], [address] [place] [phone] Sam Simons MD, PhD Lab Interpretation (test Abnormal code = 10924-0) [facility] [id number] 12:28:00 Test Item Value Reference Range Interpretation Comments POC-Glucose Meter (test 99 mg/dL 70-110 : TE STED AT [facility] code = 1538) [address] [facility], 770 30: Laboratory Apparatus Glass Grinder/Techni amada ID = [id number] for ELICEO CORADO Lab Interpretation (test Normal code = 59838-7) [facility]-GLUCOSE [id number] 12:28:00 Test Item Value Reference Range Interpretation Comments POC-GLUCOSE METER 99 mg/dL 70-110 : [facility] (test code = [facility], 1538) 77599: Laboratory Apparatus Glass Grinder/Techni amada ID = [id number] for RICHARD BEATRIZ, ELICEO POCT-GLUCOSE [id number] 08:13:00 Test Item Value Reference Range Interpretation Comments POC-GLUCOSE METER 79 mg/dL 70-110 : [facility] (BEHotPads) (test code = [facility], 1538) 79226: Laboratory Apparatus Glass Grinder/Techni amada ID = [id number] for ELICEO STANLEY Basic Metabolic [id number] 06:39:00 Test Item Value Reference Range Interpretation [...] Calcium (test code = 8.9 mg/dL 8.4-10.2 63406-9) EGFR (test code = 76 mL/min/1.73 sq m [place] [address]-5) NOT ACCURATE CREATININE CLEARANCE IN PREDICTING GLOMERULAR FILTRATION RATE . ESTIMATED GFR I S NOT APPLICABLE FOR DIALYSIS PATIENTS. TIGIST (test code = TIGIST) Laboratory Apparatus Glass Grinder ID - GRISEL M Lab Interpretation Abnormal (test code = 90375-3) [facility] Center[facility]esium2020-06-12 06:39:00 Test Item Value Reference Range Interpretation Comments Magnesium (test code = 1.7 mg/dL 1.6-2.6 42185-7) TIGIST (test code = TIGIST) Laboratory Apparatus Glass Grinder ID - GRISEL M Lab Interpretation (test Normal code = 54410-3) [facility] Center[facility]osphorus2020-06-12 06:39:00 Test Item Value Reference Range Interpretation Comments Phosphorus (test code = 3.2 mg/dL 2.3-4.7 2777-1) TIGIST (test code = TIGIST) Laboratory Apparatus Glass Grinder ID - GRISEL M Lab Interpretation (test Normal code = 15272-7) [facility] CenterPHOSPHORUS2020-06-12 06:39:00 Test Item Value Reference Range Interpretation Comments PHOSPHORUS (BEAKER) (test code = 3.2 mg/dL 2.3-4.7 604) Laboratory Apparatus Glass Grinder ID - GRISEL [id number] 06:39:00 Test Item Value Reference Range Interpretation Comments MAGNESIUM (BEAKER) (test code = 1.7 mg/dL 1.6-2.6 627) Laboratory Apparatus Glass Grinder ID - GRISEL MBASIC METABOLIC [id number] 06:39:00 Test Item Value Reference Range Interpretation [...] S NOT APPLICABLE FOR DIALYSIS PATIEN TS. Laboratory Apparatus Glass Grinder ID - GRISEL MCBC with platelet count + automated [id number] 06:02:00 Test Item Value Reference Range Interpretation Comments WBC (test code = 6690-2) 5.2 See_Comment [A utomated message] The system [employer] generated this result transmitted ref erence range: 3.5 - 10 .5 K/L. The refe rence range was not u sed to interpret this result as normal/abnor mal. RBC (test code = 789-8) 3.48 See_Comment L [Au tomated message] The system [employer] generated this result transmitted ref erence range: 4.63 - 6 .08 M/L. The refe rence range was not u sed to interpret this result as normal/abnor mal. MCHC (test code = 786-4) 33.1 See_Comment L [A utomated message] The system [employer] generated this result transmitted ref erence range: [...] See_Comment [Aut omated message] 777-3) The system [employer] generated this result transmitted ref erence range: 150 - 45 0 K/CU MM. The referen ce range was not u sed to interpret this result as normal/abnor mal. MPV (test code = 10.1 fL 9.4-12.4 74813-5) nRBC (test code = 413) 0 See_Comment [Aut omated message] The system [employer] generated this result transmitted ref erence range: [...] See_Comment [Aut omated message] 670) The system [employer] generated this result transmitted ref erence range: 1.78 - 5 .38 K/L. The refe rence range was not u sed to interpret this result as normal/abnor mal. # Lymphs (test code = 1.88 See_Comment [Auto mated message] 414) The system [employer] generated this result transmitted ref erence range: 1.32 - 3 .57 K/L. The refe rence range was not u sed to interpret this result as normal/abnor mal. # Monos (test code = 0.73 See_Comment [Autom ated message] 415) The system [employer] generated this result transmitted ref erence range: 0.30 - 0 .82 K/L. The refe rence range was not u sed to interpret this result as normal/abnor mal. # Eos (test code = 416) 0.17 See_Comment [Au tomated message] The system [employer] generated this result transmitted ref erence range: 0.04 - 0 .54 K/L. The refe rence range was not u sed to interpret this result as normal/abnor mal. # Baso (test code = 417) 0.03 See_Comment [A utomated message] The system [employer] generated this result transmitted ref erence range: 0.01 - 0 .08 K/L. The refe rence range was not u sed to interpret this result as normal/abnor mal. Immature 1 % 0-1 Granulocytes-Relative (test code = 2801) Lab Interpretation (test Abnormal code = 55859-0) [facility] W/PLT COUNT & AUTO [id number] 06:02:00 Test Item Value Reference Range Interpretation [...] = No growth in 5 days 6463-4) [facility] CenterBLOOD [id number] 01:00:00 Test Item Value Reference Range Interpretation Comments CULTURE (BEAKER) (test No growth in 5 days code = 1095) BLOOD [id number] 01:00:00 Test Item Value Reference Range Interpretation Comments CULTURE (BEAKER) (test No growth in 5 days code = 1095) POCT-GLUCOSE [id number] 22:32:00 Test Item Value Reference Range Interpretation Comments POC-GLUCOSE METER 106 mg/dL 70-110 : TESTED A T [facility] 6720 (BEAKER) (test code = [facility], 1538) 06355: Laboratory Apparatus Glass Grinder/Techni amada ID = [id number] for DE NNIS, JOSE POCT-GLUCOSE [id number] 17:30:00 Test Item Value Reference Range Interpretation Comments POC-GLUCOSE METER 92 mg/dL 70-110 : TESTED A T [facility] 6720 (BEAKER) (test code = [facility], 1538) 99489: Laboratory Apparatus Glass Grinder/Techni amada ID = [id number] for GANNON , DELFIN RAD, CHEST, 1 VIEW, NON [id number] 16:16:00Reason for exam:->sobShould this be performed at [...] 16:16:19 XR chest 1 view portable / [id number] 16:16:00Interface, External Ris In - 09/27/2019 4:18 [...] Jerry Cervantes MDReport Verified Date/Time: 09/27/2019 16:16:19 [facility]2019-09-27 16:07:00 Test Item Value Reference Range Interpretation Comments SARS-COV2/RT-PCR (test code = Negative Not Detected, Negative 73915-7) SARS-COV-2 PERFORMING LAB CPL (test code = 48479-2) [facility]2019-09-27 16:07:00 Test Item Value Reference Range Interpretation Comments SARS-COV2/RT-PCR (test code = Negative Not Detected, Negative 9714744) SARS-COV-2 PERFORMING LAB CPL (test code = 1980414) POCT-GLUCOSE [id number] 11:12:00 Test Item Value Reference Range Interpretation Comments POC-GLUCOSE METER 121 mg/dL 70-110 H : TESTED A T [facility] 6720 (BEAKER) (test code = [facility], 1538) 75585: Laboratory Apparatus Glass Grinder/Techni amada ID = [id number] for HU NTANDRESDELFIN [id number] 07:56:00 Test Item Value Reference Range Interpretation Comments PHOSPHORUS (BEAKER) (test code = 3.4 mg/dL 2.3-4.7 604) Laboratory Apparatus Glass Grinder ID - JOLYNN [id number] 07:56:00 Test Item Value Reference Range Interpretation Comments MAGNESIUM (BEAKER) (test code = 1.8 mg/dL 1.6-2.6 627) Laboratory Apparatus Glass Grinder ID - JOLYNN LPOCT-GLUCOSE [id number] 07:38:00 Test Item Value Reference Range Interpretation Comments POC-GLUCOSE METER 89 mg/dL 70-110 : TESTED A T [facility] 6720 (BEAKER) (test code = [facility], 1538) 58322: Laboratory Apparatus Glass Grinder/Techni amada ID = [id number] for ANDRES GANNONRICIA POCT-GLUCOSE [id number] 06:36:00 Test Item Value Reference Range Interpretation Comments POC-GLUCOSE METER 70 mg/dL 70-110 : TESTED A T [facility] 6720 (BEAKER) (test code = [facility], 1538) 40551: Laboratory Apparatus Glass Grinder/Techni amada ID = [id number] for DENN IS, JOSE POCT-GLUCOSE [id number] 01:06:00 Test Item Value Reference Range Interpretation Comments POC-GLUCOSE METER 94 mg/dL 70-110 : TESTED A T [facility] 6720 (BEAKER) (test code = [facility], 1538) 48895: Laboratory Apparatus Glass Grinder/Techni amada ID = [id number] for DENN IS, JOSE POCT-GLUCOSE [id number] 17:53:00 Test Item Value Reference Range Interpretation Comments POC-GLUCOSE METER 94 mg/dL 70-110 : TESTED A T [facility] 6720 (BEAKER) (test code = [facility], 1538) 86440: Laboratory Apparatus Glass Grinder/Techni amada ID = [id number] for BROW N, SREE POCT-GLUCOSE [id number] 15:47:00 Test Item Value Reference Range Interpretation Comments POC-GLUCOSE METER 123 mg/dL 70-110 H : TESTED A T [facility] 6720 (BEAKER) (test code = [facility], 1538) 52395: Laboratory Apparatus Glass Grinder/Techni amada ID = [id number] for BR OWN, SREE [id number] 06:57:00 Test Item Value Reference Range Interpretation Comments PHOSPHORUS (BEAKER) (test code = 2.8 mg/dL 2.3-4.7 604) Laboratory Apparatus Glass Grinder ID - GRISEL [id number] 06:57:00 Test Item Value Reference Range Interpretation Comments MAGNESIUM (BEAKER) (test code = 1.7 mg/dL 1.6-2.6 627) Laboratory Apparatus Glass Grinder ID - GRISEL MPOCT-GLUCOSE [id number] 17:47:00 Test Item Value Reference Range Interpretation Comments POC-GLUCOSE METER 79 mg/dL 70-110 : TESTED A T [facility] 6720 (BEAKER) (test code = [facility], 1538) 08780: Laboratory Apparatus Glass Grinder/Techni amada ID = [id number] for BROW N, SREE POCT-GLUCOSE [id number] 11:35:00 Test Item Value Reference Range Interpretation Comments POC-GLUCOSE METER 96 mg/dL 70-110 : TESTED A T [facility] 6720 (BEAKER) (test code = [facility], 1538) 71502: Laboratory Apparatus Glass Grinder/Techni amada ID = [id number] for BROW N, SREE POCT-GLUCOSE [id number] 06:33:00 Test Item Value Reference Range Interpretation Comments POC-GLUCOSE METER 105 mg/dL 70-110 : TESTED A T [facility] 6720 (BEAKER) (test code = [facility], 1538) 02141: Laboratory Apparatus Glass Grinder/Techni amada ID = [id number] for DO VE, CHEKARA [id number] 06:32:00 Test Item Value Reference Range Interpretation Comments PHOSPHORUS (BEAKER) (test code = 2.6 mg/dL 2.3-4.7 604) Laboratory Apparatus Glass Grinder ID - GRISEL [id number] 06:32:00 Test Item Value Reference Range Interpretation Comments MAGNESIUM (BEAKER) (test code = 1.7 mg/dL 1.6-2.6 627) Laboratory Apparatus Glass Grinder ID - GRISEL MPOCT-GLUCOSE [id number] 00:14:00 Test Item Value Reference Range Interpretation Comments POC-GLUCOSE METER 126 mg/dL 70-110 H : TESTED A T [facility] 6720 ([facility]) (test code = [facility], [facility]8) 26771: Laboratory Apparatus Glass Grinder/Techni amada ID = [id number] for DO VE, CHEKARA POCT-GLUCOSE [id number] 18:19:00 Test Item Value Reference Range Interpretation Comments POC-GLUCOSE METER 86 mg/dL 70-110 : TESTED A T [facility] 6720 ([facility]) (test code = [facility], [facility]8) 31069: Laboratory Apparatus Glass Grinder/Techni amada ID = [id number] for RICHARD BEATRIZ, ELICEO POCT-GLUCOSE [id number] 14:12:00 Test Item Value Reference Range Interpretation Comments POC-GLUCOSE METER 114 mg/dL 70-110 H : TESTED A T [facility] 6720 ([facility]) (test code = [facility], 1538) 95112: Laboratory Apparatus Glass Grinder/Techni amada ID = [id number] for AK INSONU, ELICEO POCT-GLUCOSE [id number] 06:21:00 Test Item Value Reference Range Interpretation Comments POC-GLUCOSE METER 109 mg/dL 70-110 : TESTED A T [facility] 6720 ([facility]) (test code = [facility], [facility]8) 27336: Laboratory Apparatus Glass Grinder/Techni amada ID = [id number] for DE NNIS, JOSE CBC W/PLT COUNT & AUTO [id number] 05:16:00 Test Item Value Reference Range Interpretation Comments WHITE BLOOD CELL COUNT (AKER) 4.2 K/ L 3.5-10.5 (test code = 775) RED BLOOD CELL COUNT ([facility]) 3.48 M/ L 4.63-6.08 L (test code [...] 0-1 PERCENT (BEAKER) (test code = 2801) [id number] 05:15:00 Test Item Value Reference Range Interpretation Comments PHOSPHORUS (BEAKER) (test code = 2.3 mg/dL 2.3-4.7 604) Laboratory Apparatus Glass Grinder ID - GRISEL [id number] 05:15:00 Test Item Value Reference Range Interpretation Comments MAGNESIUM (BEAKER) (test code = 1.8 mg/dL 1.6-2.6 627) Laboratory Apparatus Glass Grinder ID - GRISEL MBASIC METABOLIC [id number] 05:15:00 Test Item Value Reference Range Interpretation [...] S NOT APPLICABLE FOR DIALYSIS PATIEN TS. Laboratory Apparatus Glass Grinder ID Milton RECINOS MPOCT-GLUCOSE [id number] 23:34:00 Test Item Value Reference Range Interpretation Comments POC-GLUCOSE METER 108 mg/dL 70-110 : TESTED A T [facility] 6720 (BEHotPads) (test [facility] = [facility], 1538) 02890: Laboratory Apparatus Glass Grinder/Techni amada ID = [id number] for DE NNIS, JOSE POCT-GLUCOSE [id number] 18:08:00 Test Item Value Reference Range Interpretation Comments POC-GLUCOSE METER 136 mg/dL 70-110 H : TESTED A T [facility] 6720 ([employer]ads) (test code [facility], = 1538) 02163: Laboratory Apparatus Glass Grinder/Techni amada ID = [id number] for TSEG GAI, TSIGHEREDA Urinalysis Microscopic [id number] 14:06:00 Test Item Value Reference Range Interpretation Comments RBC, UA (test 6 See_Comment [Automated me ssage] code = 08562-0) The system w hich generated this result transmit guillaume reference range : /HPF. The refer ence range was not u sed to interpret th is result as normal/abnormal . WBC, UA (test 58 See_Comment [Automated me ssage] code = 5821-4) The system wh ich generated this result transmit guillaume reference range : /HPF. The refer ence range was not u sed to interpret th is result as normal/abnormal . Mucus (test Occasional code = 8247-9) Squam Epithel, <1 See_Comment [Automated m essage] UA (test code = The system w hich 04032-5) generated this result transmit guillaume reference range : /HPF. The refer ence range was not u sed to interpret th is result as normal/abnormal . TIGIST (test code Laboratory Apparatus Glass Grinder ID - tech = TIGIST) [facility] Center[facility]INALYSIS [id number] 14:06:00 Test Item Value Reference Range Interpretation Comments RBC UA (BEAKER) (test code = 519) 6 /HPF WBC UA (BEAKER) (test code = 520) 58 /HPF MUCUS (BEAKER) (test code = 1574) Occasional SQUAMOUS EPITHELIAL (BEAKER) (test < /HPF code = 516) Laboratory Apparatus Glass Grinder ID - techPOCT-GLUCOSE [id number] 14:04:00 Test Item Value Reference Range Interpretation Comments POC-GLUCOSE METER 99 mg/dL 70-110 : TESTED A T [facility] 6720 (BEAKER) (test code = [facility] Dumont [facility], 1538) 56053: Laboratory Apparatus Glass Grinder/Techni amada ID = [id number] for SONALI MCNEIL Urinalysis with Microscopic If [id number] 13:55:00 Test Item Value Reference Range Interpretation Comments Color, UA (test code = Yellow 5778-6) Clarity, UA (test code = Hazy 5767-9) Specific [place], UA (test 1.018 1.001-1.035 code = 5811-5) pH, UA (test code = 7.0 5.0-8.0 5803-2) Protein, UA (test code = 10 mg/dL Negative A 84140-7) Glucose, UA (test code = Negative Negative 365) Ketones, UA (test code = Trace Negative A 2514-8) Bilirubin, UA (test code = Negative Negative 63338-2) Blood, UA (test code = Trace Negative A 87690-0) Nitrite, UA (test code = Negative Negative 5802-4) Leukocytes, UA (test code Large Negative A = 5799-2) Urobilinogen, UA (test 0.2 mg/dL 0.2-1 code = 74761-2) Specimen Source (test code = 2795) TIGIST (test code = TIGIST) Laboratory Apparatus Glass Grinder ID - [auto] Lab Interpretation (test Abnormal code = 28399-6) [facility] Center[facility]IS WITH MICROSCOPIC IF [id number] 13:55:00 Test Item Value Reference Range Interpretation [...] = 463) SOURCE(BEAKER) (test code = 2795) Laboratory Apparatus Glass Grinder ID - [auto]POCT-GLUCOSE [id number] 13:04:00 Test Item Value Reference Range Interpretation Comments POC-GLUCOSE METER 111 mg/dL 70-110 H : TESTED A T [facility] 6720 (BEAKER) (test code [facility], = 1538) 67854: Laboratory Apparatus Glass Grinder/Techni amada ID = [id number] for PADMINI MORENO [id number] 12:43:00 Test Item Value Reference Range Interpretation Comments RPR (test code = 64554-8) Nonreactive Nonreactive Lab Interpretation (test code = Normal 56949-3) [facility] CenterRPR2020-06-07 12:43:00 Test Item Value Reference Range Interpretation Comments RPR SCREEN (BEAKER) (test code = Nonreactive Nonreactive 420) POCT-GLUCOSE [id number] 07:42:00 Test Item Value Reference Range Interpretation Comments POC-GLUCOSE METER 124 mg/dL 70-110 H : TESTED A T [facility] 6720 (BEAKER) (test code = [facility] [place], 1538) 69074: Laboratory Apparatus Glass Grinder/Techni amada ID = [id number] for DE NNIS, JOSE Vitamin D, [id number] 07:20:00 Test Item Value Reference Range Interpretation Comments Vitamin D 25-Hydroxy 22.1 ng/mL 6.6-49.9 (test code = 2764) TIGIST (test code = TIGIST) Effective 01/26/2017: Reference Range ChangeNew: 6.6-49.9 ng/mL Previous: 13.0-47.8 ng/mL Recommended Vitamin D Target Range: 30.0-40.0 ng/mLOperator ID - DB Lab Interpretation (test Normal code = 13114-0) [facility] CenterVITAMIN D, [id number] 07:20:00 Test Item Value Reference Range Interpretation Comments VITAMIN D 25-OH (BEAKER) (test 22.1 ng/mL 6.6-49.9 code = 2764) Effective 01/26/2017: Reference Range ChangeNew: 6.6-49.9 ng/mL Previous: 13.0-47.8 ng/mLRecommended Vitamin D Target Range: 30.0-40.0 ng/mLOperator ID - [id number] 06:46:00 Test Item Value Reference Range Interpretation Comments PHOSPHORUS (BEAKER) (test code = 2.4 mg/dL 2.3-4.7 604) Laboratory Apparatus Glass Grinder ID - GRISEL LNNLGFWORF1482-39-94 06:46:00 Test Item Value Reference Range Interpretation Comments MAGNESIUM (BEAKER) (test code = 1.6 mg/dL 1.6-2.6 627) Laboratory Apparatus Glass Grinder ID - GRISEL MBASIC METABOLIC [id number] 06:46:00 Test Item Value Reference Range Interpretation [...] S NOT APPLICABLE FOR DIALYSIS PATIEN TS. Laboratory Apparatus Glass Grinder ID - GRISEL MPOCT-GLUCOSE NFJGH2650-46-38 00:27:00 Test Item Value Reference Range Interpretation Comments POC-GLUCOSE METER 103 mg/dL 70-110 : TESTED A T [facility] 6720 ([facility]) (test code = TODD Dumont [facility], 1538) [address]: Laboratory Apparatus Glass Grinder/Techni amada ID = [id number] for UREÑA, JOSE HIV-1 Antigen with HIV-1/2 Zeubktqg1888-77-42 17:26:00 Test Item Value Reference Range Interpretation Comments HIV-1 Antigen with HIV 1&2 Nonreactive Nonreactive Antibody (test code = 33140-8) TIGIST (test code = TIGIST) Laboratory Apparatus Glass Grinder ID - DB Lab Interpretation (test Normal code = 43919-4) [facility] Center[facility] [id number] 17:26:00 Test Item Value Reference Range Interpretation Comments POC-GLUCOSE METER 97 mg/dL 70-110 : Notified RN/MD: TESTED (BEAKER) (test code = AT [facility] 6720 [facility] 1538) [facility], 770 30: Laboratory Apparatus Glass Grinder/Techni amada ID = [id number] for SONALI MCNEIL HIV-1 ANTIGEN WITH HIV-1/2 PRXBYTZP4667-18-45 17:26:00 Test Item Value Reference Range Interpretation Comments HIV-1 ANTIGEN WITH HIV 1\\T\\2 Nonreactive Nonreactive ANTIBODY (2) (NATY) (test code = 2586) Laboratory Apparatus Glass Grinder ID - DBRAD, CHEST, 1 VIEW, NON [id number] 16:47:00Reason for exam:- >eval for pnaShould this [...] MDReport Verified Date/Time: 09/22/2019 16:47:36 Reading Location: [address] Body Reading Room POCT-GLUCOSE [id number] 12:05:00 Test Item Value Reference Range Interpretation Comments POC-GLUCOSE METER 53 mg/dL 70-110 L : TESTED A T [facility] 6720 (NATY) (test code = EDMUNDTHOMAS R [facility], 1538) [address]: Laboratory Apparatus Glass Grinder/Techni amada ID = [id number] for ELICEO STANLEY T4, wayu2267-20-15 08:52:00 Test Item Value Reference Range Interpretation Comments Free T4 (test code = 0.94 ng/dL 0.7-1.48 3024-7) TIGIST (test code = TIGIST) Laboratory Apparatus Glass Grinder ID - JANAE Greenberg Lab Interpretation (test Normal code = 50079-5) [facility] CenterT4, GCMZ6474-14-17 08:52:00 Test Item Value Reference Range Interpretation Comments FREE T4 (BEAKER) (test code = 655) 0.94 ng/dL 0.70-1.48 Laboratory Apparatus Glass Grinder ID - JANAE CHemoglobin K2q1508-21-03 08:43:00 Test Item Value Reference Range Interpretation Comments Hemoglobin A1C (test code = 4548-4) 5.4 % 4.3-6.1 Lab Interpretation (test code = Normal 94967-3) [facility] CenterHEMOGLOBIN [id number] 08:43:00 Test Item Value Reference Range Interpretation Comments HEMOGLOBIN A1C (BEAKER) (test code = 5.4 % 4.3-6.1 368) Vitamin B12 and Dhfyak9687-01-64 08:20:00 Test Item Value Reference Range Interpretation Comments Vitamin B12 (test 869 pg/mL 213-816 H code = 2132-9) Folate (test code = 19.30 ng/mL See_Comment [Automa guillaume 2284-8) message] The system which generated this result transmit guillaume reference range : >=7.00. The reference range was not used to interpret this result as normal/abnormal . TIGIST (test code = TIGIST) Laboratory Apparatus Glass Grinder ID - JANAE C Lab Interpretation Abnormal (test code = 05144-2) [facility] CenterVITAMIN B12 AND [id number] 08:20:00 Test Item Value Reference Range Interpretation Comments VITAMIN B12 (BEAKER) (test code = 869 pg/mL 213-816 H 774) FOLATE (BEAKER) (test code = 362) 19.30 ng/mL >=7.00 Laboratory Apparatus Glass Grinder ID - JANAE CTSH/Free T4 If Ierxioqat0080-62-57 08:18:00 Test Item Value Reference Range Interpretation Comments TSH (test code = 0.158 See_Comment L [Automated 69938-8) message] The system which generated this result transmit guillaume reference range : 0.350 - 4.940 uIU/mL. The reference range was not used to interpret this result as normal/abnormal . TIGIST (test code = TIGIST) Laboratory Apparatus Glass Grinder ID - JANAE C Lab Interpretation Abnormal (test code = 92875-1) [facility] CenterTSH/FREE T4 IF GFLIBDFIQ1605-23-55 08:18:00 Test Item Value Reference Range Interpretation Comments THYROID STIMULATING HORMONE 0.158 uIU/mL 0.350-4.940 L (BEAKER) (test code = 772) Laboratory Apparatus Glass Grinder ID - JANAE GiraldoLOwwpazn7583-94-29 07:41:00 Test Item Value Reference Range Interpretation Comments Ammonia (test code = 35 See_Comment [Autom ated 17799-0) message] The system which generated this result transmit guillaume reference range : 18 - 72 mol/L . The reference range was not u sed to interpret th is result as normal/abnormal . TIGIST (test code = TIGIST) Laboratory Apparatus Glass Grinder ID - AAALEJANDROID Lab Interpretation Normal (test code = 24752-2) [facility] CenterAMMONIA2020-06-06 07:41:00 Test Item Value Reference Range Interpretation Comments AMMONIA (BEAKER) (test code = 348) 35 mol/L 18-72 Laboratory Apparatus Glass Grinder ID - Bradnin [id number] 07:16:00 Test Item Value Reference Range Interpretation Comments Troponin I (test code = 0.01 ng/mL 0-0.03 72835-4) TIGIST (test code = TIGIST) Troponin I [...] AAHAMID Lab Interpretation (test Normal code = 34707-0) [facility] CenterTROPONIN [id number] 07:16:00 Test Item Value Reference Range Interpretation [...] failure, acidosis, acute neurological disease, and persistent tachyarrhythmia.Laboratory Apparatus Glass Grinder ID - AAHAMIDC-Reactive Protein 2019-09-22 07:14:00 Test Item Value Reference Range Interpretation Comments CRP (test code = 676) 3.32 mg/dL 0-0.5 H TIGIST (test code = TIGIST) Laboratory Apparatus Glass Grinder ID - AAHAMID Lab Interpretation (test Abnormal code = 83855-8) [facility] CenterC-REACTIVE [id number] 07:14:00 Test Item Value Reference Range Interpretation Comments C-REACTIVE PROTEIN (BEAKER) (test 3.32 mg/dL 0.00-0.50 H code = 676) Laboratory Apparatus Glass Grinder ID - AAHAMIDValproic acid level, ukbbl1900-52-46 02:48:00 Test Item Value Reference Range Interpretation Comments Valproic Acid, Total 46 ug/mL 50-100 L (test code = 4086-5) TIGIST (test code = TIGIST) Therapeutic range for some clinical conditions may be >100 ug/mLOperator ID - DESHAWN W Lab Interpretation (test Abnormal code = 22161-9) [facility] CenterVALPROIC ACID LEVEL, [id number] 02:48:00 Test Item Value Reference Range Interpretation Comments VALPROIC ACID TOTAL (BEAKER) (test 46 ug/mL 50-100 L code = 924) Therapeutic range for some clinical conditions may be >100 ug/mLOperator ID - DESHAWN WProthrombin time/TFT9214-94-45 02:31:00 Test Item Value Reference Interpretation Comments Range Protime (test code = 15.3 See_Comment H [Autom ated 5902-2) message] The system which generated this result transmitted reference range : 11.9 - 14.2 seconds. The reference range was not used to interpret this result as normal/abnormal . INR (test code = 1.2 See_Comment [Automated 4701-6) message] The system which generated this result [...] valves. Lab Interpretation Abnormal (test code = 76005-8) [facility] CenterPROTHROMBIN TIME/HYH6265-21-05 02:31:00 Test Item Value Reference Range Interpretation [...] is2.5-3.5 for patients wiht mechanical heart valves.TROPONIN [id number] 02:29:00 Test Item Value Reference Range Interpretation [...] failure, acidosis, acute neurological disease, and persistent tachyarrhythmia.Laboratory Apparatus Glass Grinder ID - DESHAWN Sahupsychiatric function hwmwt6015-64-70 02:23:00 Test Item Value Reference Range Interpretation [...] 3.2 g/dL 3.5-5 [place] 96753-1) hemolyzed Total Bilirubin (test 0.5 mg/dL 0.2-1.2 [...] 1742-6) hemolyzed TIGIST (test code = TIGIST) Laboratory Apparatus Glass Grinder ID - DESHAWN W Lab Interpretation Abnormal (test code = 98748-5) [facility] METABOLIC [id number] 02:23:00 Test Item Value Reference Range Interpretation [...] S NOT APPLICABLE FOR DIALYSIS PATIEN TS. Laboratory Apparatus Glass Grinder ID - DESHAWN [facility] FUNCTION [id number] 02:23:00 Test Item Value Reference Range Interpretation [...] Specimen slightly (test code = 347) hemolyzed Laboratory Apparatus Glass Grinder SHALOM HESS WCBC W/PLT COUNT & AUTO MKNRBZVWMFEQ5158-64-30 02:01:00 Test Item Value Reference Range Interpretation [...] PERCENT (BEAKER) (test code = 2801) CHEM EUUVD0009-39-15 02:31:0028.0[facility] FcywsvvVLXQKO2024-51-74 00:25:0061 [facility] OukqtnlWDFOXG0758-11-76 00:25:52564Nlatyrtb ZjcgtnsTQICJZ1082-39-34 00:25:0051[facility] MffhpahCXLIKZ8023-63-43 00:25:00 Test Item Value Reference Range Interpretation Comments CHD Risk (test code = CHD Risk) 4.08 1 4.00-7.30 [facility] GmyrsnxBCSBFF9433-40-36 00:25:94386Fsjsiztd FkzvvpuBJPAIE4479-28-32 00:25:00 Test Item Value Reference Range Interpretation Comments VLDL (test code = VLDL) 12 1 [facility]annSPECIAL MLDMIVGWS9119-17-80 00:25:006.2[facility] HermannANEMIA UBMHX3740-69-93 15:33:58984Aveycaal HermannCHEM CUSZU9222-50-92 15:33:00<10.0 [facility]annCHEM CLDMT9712-48-72 15:33:0084[facility] HermannCHEM PANEL 2019-07-08 15:33:0016[facility] HermannCHEM YLKWM9413-52-78 15:33:001.20[facility] HermannCHEM QZOGA2618-66-31 15:33:39785Ymcdlpcr HermannCHEM TQBAD0421-46-95 15:33:004.0[facility] HermannCHEM MQZWI3357-55-25 15:33:43749Yhneykvg HermannCHEM WCZOA8183-81-17 15:33:0027[facility] HermannCHEM BAFCO4793-41-43 15:33:009.8 [facility]annCHEM GAEJN8498-66-09 15:33:0012.0[facility] HermannCHEM PANEL 2019-07-08 15:33:0062[facility] ImbhxqlXMBXPUTESJ9232-44-54 15:33:005.0[facility] KkvdqgaAEVJTNTBVC8965-27-01 15:33:004.22[facility] YupasrcCYBDGCJUEN8986-56-11 15:33:0012.6[facility] ZxxfwqgOFUDVLAOKO0803-28-09 15:33:0037.4[facility] [place] QWJGCVINIM0412-73-77 15:33:0088.6[facility] XxldqdyYPXDVHFZRM6421-50-20 15:33:00 Test Item Value Reference Range Interpretation Comments MCH (test code = MCH) 29.9 pg 27.0-31.0 [facility] UqrwwagYMALEYLEOQ5523-38-78 15:33:0033.7[facility] HermannHEMATOLOGY 2019-07-08 15:33:0015.2[facility] LgceuevSBBOFRAKVI5212-81-02 15:33:01087Zhxvxktf MpogaxqNJANLXQKCY5240-82-21 15:33:008.0[facility] QjwcemzLQCTWCCVXE6005-35-89 15:33:0062.8[facility] UoptaquDYEYLIZVPB4555-39-67 15:33:0024.6[facility] ZRZCHGJQBB4577-95-01 15:33:0010.1[facility] QcvjbmlIUCCTZFPVF6017-12-65 15:33:00 1.9[facility] WgauwxzEQERKYSSAY4946-32-22 15:33:000.6[facility] HermannHEMATOLOGY 2019-07-08 15:33:003.1[facility] TehkhdsVVVDNCRPZO2657-83-13 15:33:001.2[facility] IsfzdiwFTTQERAZNG0419-16-94 15:33:000.5[facility] TketazxAOMQBYRXLV2640-84-93 15:33:000.1[facility] HermannCHEM TEPPS7823-86-47 11:10:0095[facility] HermannCHEM WSJID0590-69-49 11:10:0011[facility] HermannCHEM FHICX7723-59-47 11:10:001.03 [facility] HermannCHEM VQHTJ9059-57-47 11:10:16225Xvnfjuvx HermannCHEM PANEL 2019-07-07 11:10:003.7[facility] HermannCHEM SOINP4573-00-86 11:10:79093Tbbhjumh HermannCHEM XNNPJ7966-67-05 11:10:0027[facility] HermannCHEM XSQEG1840-83-32 11:10:009.8[facility] HermannCHEM AHVGE1126-61-11 11:10:006.6[facility] HermannCHEM STAGK1682-89-63 11:10:003.4[facility] HermannCHEM XEUFZ2435-16-24 11:10:0019 [facility] HermannCHEM PNCHC7312-43-94 11:10:0016[facility] HermannCHEM PANEL 2019-07-07 11:10:0070[facility] HermannCHEM IZOUQ6080-13-71 11:10:000.7[facility] HermannCHEM RSVVP6661-32-96 11:10:009.7[facility] HermannCHEM NNQVR6577-03-39 11:10:00 Test Item Value Reference Range Interpretation Comments B/C Ratio (test code = B/C Ratio) 11 1 6-25 [facility]annCHEM OLLNG6999-07-91 11:10:003.2[facility] HermannCHEM PANEL 2019-07-07 11:10:00 Test Item Value Reference Range Interpretation Comments A/G Ratio (test code = A/G Ratio) 1.1 1 0.7-1.6 [facility]annCHEM AJJZK6245-71-63 11:10:0075[facility] HermannHEMATOLOGY 2019-07-07 11:10:004.9[facility] QhlgawhTJLVWWVYMD3066-59-56 11:10:004.14[facility] LopvebrZQWMBFGKDG2616-43-99 11:10:0012.1[facility] HozagmxNBZUIJAWEO8861-97-35 11:10:0036.7[facility] GwwgrsgAVVRLNTQRG4886-20-88 11:10:0088.6[facility] [place] BHISCYHYCD3189-92-06 11:10:00 Test Item Value Reference Range Interpretation Comments MCH (test code = MCH) 29.3 pg 27.0-31.0 [facility] SehnyzgPPJBEXDJCW5586-87-85 11:10:0033.1[facility] HermannHEMATOLOGY 2019-07-07 11:10:0014.8[facility] TncmmyrOIFWDBOVWK7223-63-04 11:10:06476Opzznlde OpjnmhcUEIKGTRUIM6180-61-73 11:10:007.9[facility] EkpggbnXKGQBIFLFO6044-31-58 11:10:0051.1[facility] PgathmiDTTZCEOTQX3890-85-37 11:10:0029.1[facility] [place] MEFTTURDYE7269-10-87 11:10:0016.1[facility] VvjfpczTIMPCISQAK1953-31-78 11:10:00 3.1[facility] EagpaikONQIDPAMEC4673-77-22 11:10:000.6[facility] HermannHEMATOLOGY 2019-07-07 11:10:002.5[facility] XktdbhhQYMEAUMPEX4155-75-83 11:10:001.4[facility] AiynmkmPQAUSPDVIF6389-68-19 11:10:000.8[facility] FyzmllyJYFCHQLQYH5689-56-66 11:10:000.2[facility] WxnvgocTYKPQBIAEX5077-12-44 11:10:000.34[facility] URINE AND PKHQN0394-97-22 11:05:00Colorless *NA*(07/07/19 6:05 AM)[facility]annURINE AND REJWP9158-87-66 11:05:00Clear (07/07/19 6:05 AM)[facility] [place] URINE AND WPNZT0388-61-96 11:05:00 Test Item Value Reference Range Interpretation Comments UA Spec Grav (test code = UA Spec 1.005 1 Grav) [facility]annUR[facility] AND SSROB5240-24-07 11:05:00 Test Item Value Reference Range Interpretation Comments UA pH (test code = UA pH) 8.0 1 5.0-8.0 [facility] AND UWYNR7033-35-74 11:05:00Negative (07/07/19 6:05 AM) [facility] SJPLP2635-36-19 11:05:00Negative *NA*(07/07/19 6:05 AM) [facility] CVTEZ6198-26-38 11:05:00Negative *NA*(07/07/19 6:05 AM) [facility] YTEAB1203-69-17 11:05:00Negative *NA*(07/07/19 6:05 AM) [facility] GLANP3434-78-42 11:05:00Negative (07/07/19 6:05 AM) [facility] CULPW5439-66-15 11:05:00Negative (07/07/19 6:05 AM) [facility] FXBHI6095-75-21 11:05:00Negative (07/07/19 6:05 AM) [facility] DCNTS7028-39-51 11:05:00Performed (07/07/19 6:05 AM) [facility] WILWC0297-08-53 11:05:00<1[facility] AND ZPJTT9758-74-98 11:05:001[facility]UR[facility] AND CJYDD0169-04-17 11:05:00None Seen (07/07/19 6:05 AM)[facility]annCHEM JFVYR4949-77-48 14:26:0086[facility] HermannCHEM VSDYY6615-78-13 14:26:0015[facility] HermannCHEM ILSNT7670-42-76 14:26:000.90[facility] HermannCHEM EFKJC5987-20-80 14:26:76624Ofjwgiad HermannCHEM TFBJA0987-30-45 14:26:004.1[facility] HermannCHEM APNBQ4979-38-51 14:26:23210 [facility]annCHEM QDOVD9071-74-71 14:26:0030[facility] HermannCHEM PANEL 2019-05-27 14:26:009.2[facility] HermannCHEM UIDFO4647-41-05 14:26:009.1[facility] HermannCHEM RYQYZ7932-72-94 14:26:0089[facility] HermannCHEM TATOC5249-97-11 12:40:0090[facility] HermannCHEM QUJJV1908-37-62 12:40:0016[facility] HermannCHEM WWOIA3680-76-67 12:40:000.90[facility] HermannCHEM ICDZT8915-92-85 12:40:53188 [facility]annCHEM MHFZV0216-21-44 12:40:003.9[facility] HermannCHEM PANEL 2019-05-26 12:40:0098[facility] HermannCHEM NWKHC7330-13-49 12:40:0030[facility] HermannCHEM RGLAY4762-42-24 12:40:009.3[facility] HermannCHEM MBUJN4583-68-98 12:40:009.9[facility] HermannCHEM XQDHF7245-56-20 12:40:0089[facility] HermannCHEM GPSZB6935-38-11 15:43:27408Cuzunbcp HermannCHEM SEOAZ7260-65-87 15:43:0016 [facility]annCHEM AQQHP4477-24-24 15:43:000.90[facility] HermannCHEM PANEL 2019-05-25 15:43:32150Njjwcgxb HermannCHEM WDVTR3700-81-89 15:43:004.5[facility] HermannCHEM NXMFB4025-82-24 15:43:0097[facility] HermannCHEM UFCDL5675-38-74 15:43:0028[facility] HermannCHEM PRGCM4189-94-42 15:43:008.7[facility] HermannCHEM XGCUO0453-13-24 15:43:0011.5[facility] HermannCHEM TYPAL5678-18-70 15:43:0089 [facility] DIBAS3295-99-20 21:24:00Marked *ABN*(05/23/19 3:24 PM) [facility] JQQRV7539-77-20 21:24:00 Test Item Value Reference Range Interpretation Comments UA Spec Grav (test code = UA Spec 1.013 1 Grav) [facility] ENLPW0990-37-47 21:24:00 Test Item Value Reference Range Interpretation Comments UA pH (test code = UA pH) 8.0 1 5.0-8.0 [facility] RLIBB3845-24-16 21:24:00Negative *NA*(05/23/19 3:24 PM) [facility] RDATJ2428-58-08 21:24:00Negative (05/23/19 3:24 PM) [facility] ELXTT1078-61-22 21:24:00Negative (05/23/19 3:24 PM) [facility] NGPUE3494-46-71 21:24:00Negative (05/23/19 3:24 PM) [facility] GUIAJ5773-80-25 21:24:001[facility] AND GSZLH5495-93-80 21:24:00<1[facility] ADUNP5365-23-98 21:24:00 Performed *NA*(05/23/19 3:24 PM)[facility] VFNKE8838-28-07 21:24:00 <=1.0[facility] HermannCHEM NFNOL4039-45-91 12:15:006.1[facility] HermannCHEM QKVXZ4651-33-54 12:15:002.8[facility] HermannCHEM ONIXT0646-94-03 12:15:0013 [facility]annCHEM DHWEA8292-08-95 12:15:0023[facility] HermannCHEM PANEL 2019-05-21 12:15:0080[facility] HermannCHEM GMGAV5056-96-11 12:15:000.4[facility] HermannCHEM NGPPL3825-41-41 12:15:00 Test Item Value Reference Range Interpretation Comments B/C Ratio (test code = B/C Ratio) 20 1 6-25 [facility]annCHEM DNQVB5123-88-58 12:15:003.3[facility] HermannCHEM PANEL 2019-05-21 12:15:00 Test Item Value Reference Range Interpretation Comments A/G Ratio (test code = A/G Ratio) 0.8 1 0.7-1.6 [facility]annCHEM NLMGX1764-92-51 09:21:001.9[facility]annCHEM PANEL 2019-05-20 09:21:003.1[facility] RkxtfpjUSHZHPSZSM2172-57-50 09:21:005.8[facility] RezgivmCFUPYULYZW7117-75-02 09:21:004.01[facility] FkbrpaxDXNSXZVQKS7371-09-55 09:21:0012.0[facility] MnfxnxeRTUQBJEMGH8909-36-00 09:21:0036.5[facility] XJIWWDMZJI9937-70-23 09:21:0091.1[facility] LwkptqiQPMISSQDPG3492-24-63 09:21:00 Test Item Value Reference Range Interpretation Comments MCH (test code = MCH) 29.9 pg 27.0-31.0 [facility] CtcgkqdORIDAZJAGO0256-20-94 09:21:0032.8[facility] HermannHEMATOLOGY 2019-05-20 09:21:0016.0[facility] KjfahlpXUCAHCSXOR3072-53-14 09:21:04107Tvzykswf KhmvyheJXVNVHXSTL4679-87-97 09:21:008.2[facility] LqedytiCHKCRYGMHN9859-52-27 09:21:0065.6[facility] AqvpzoeGXDUZDPSRO4881-27-30 09:21:0018.2[facility] XAPKOAEBOA5139-12-32 09:21:0013.8[facility] LsukixmIYEEDZRUNG7794-57-94 09:21:00 2.3[facility] NxltsstWCPOWMZJWZ1066-78-63 09:21:000.1[facility]annHEMATOLOGY 2019-05-20 09:21:003.8[facility] WtdidevOIUTEKUWGN2930-78-05 09:21:001.0[facility] TgrrvqvDXCWWGXANW3231-35-37 09:21:000.8[facility] MnbjgplVDTULNRPTV5033-67-53 09:21:000.1[facility] ZmsrfmtFFXWXTFEEM9267-94-87 09:21:000.0[facility] HermannCHEM WMAIO8201-35-80 07:15:002.4[facility] HermannCHEM LUEMC6252-03-66 07:15:002.7 [facility] SevqabaQSZZULSBJF4926-02-89 07:15:0056.8[facility] HermannHEMATOLOGY 2019-05-19 07:15:0025.9[facility] EudgabkOECNWXUIIA7556-76-46 07:15:0014.8[facility] PdklrmjJEXEHRYEYK2208-94-84 07:15:002.4[facility] NqbucujVMNABSEXVF5073-95-23 07:15:000.1[facility] ZcheomqVAMXUIRGBP0612-48-79 07:15:002.7[facility] [place] JWILIQJWWI5817-50-13 07:15:001.2[facility] TvyggnrLWTKNXRDQC4190-47-46 07:15:000.7 [facility] QmrmhvsMJZIUNHCGI4379-74-36 07:15:000.1[facility]annHEMATOLOGY 2019-05-19 07:15:000.0[facility] PhfptizAPMLVVZUUX2815-98-62 07:15:004.8[facility] NbvaxgzDHRVZISZHL4105-79-21 07:15:004.59[facility] ZgebkjcAQUDYYJGQI0934-73-65 07:15:0014.0[facility] WprhfvxBKTKAETBZZ0564-79-50 07:15:0041.5[facility] RKBIXOHZUY5176-36-90 07:15:0090.4[facility] LdhqhglKLYJPGPPBA3555-88-36 07:15:00 Test Item Value Reference Range Interpretation Comments MCH (test code = MCH) 30.5 pg 27.0-31.0 [facility] KdvmyszEBKHIHXTKJ6137-07-64 07:15:0033.7[facility] HermannHEMATOLOGY 2019-05-19 07:15:0016.0[facility] ElrtxkjGCCACPCWIG6776-74-31 07:15:22933Goyvwmhl XttxariDYTXTUFTJH8917-04-26 07:15:008.6[facility] HermannPARATHYROID PROFILE 2019-05-19 07:15:001.31[facility] HermannPARATHYROID TBHLVQU9043-09-74 07:15:00 1.32[facility] HermannCHEM IKDEC4456-24-61 08:37:002.3[facility] HermannCHEM PANEL 2019-05-18 08:37:003.3[facility] TamwuptNYONAUVMOB1217-14-43 08:37:0054.1[facility] EbsaqhrSRXHSUJLLN8641-38-57 08:37:0028.3[facility] WccwcjiBBZNSSWMML7033-97-30 08:37:0013.8[facility] WmgxgfjXILVWLWGJH6378-75-47 08:37:003.3[facility] ARJVEERANF7801-23-38 08:37:000.5[facility] MtbteseURPGTCOQHZ7729-82-57 08:37:002.5 [facility] TpjbopoYGMBBKHZXM2852-85-79 08:37:001.3[facility] HermannHEMATOLOGY 2019-05-18 08:37:000.7[facility] QeirgayOBGKRUPQZN2023-97-93 08:37:000.2[facility] YkdhaueKEDSWLMWDB2207-59-67 08:37:000.0[facility] KlxzrvwREAFEBRKXN1349-34-20 08:37:004.7[facility] MzbkqvhQLESOIXONY8525-33-28 08:37:003.73[facility] FZHIIYSCSR9580-03-14 08:37:0011.2[facility] BntjzarAGVIMWQNCB1425-21-08 08:37:00 33.8[facility] EnvveidNEXGBFAZKS8837-09-69 08:37:0090.4[facility] HermannHEMATOLOGY 2019-05-18 08:37:00 Test Item Value Reference Range Interpretation Comments MCH (test code = MCH) 29.9 pg 27.0-31.0 [facility] IqaxcmjHUMDJNOOWY9767-76-91 08:37:0033.1[facility]annHEMATOLOGY 2019-05-18 08:37:0015.7[facility] MawohwcVSOWXKXMTN5086-82-95 08:37:34946Caczrhgh LktwzsxIMKRMZLDQA8859-02-00 08:37:008.3[facility] HermannPARATHYROID PROFILE 2019-05-18 08:37:001.16[facility] HermannPARATHYROID XMRLYLO3747-87-83 08:37:00 1.16[facility] HermannBACTERIAL - SAMYONCU0036-58-06 17:12:00Negative (05/17/19 11:12 AM)[facility] HermannCARDIAC VJVBFCS8540-61-94 17:12:00<0.02[facility] HermannCARDIAC WESNOTU2330-07-63 17:12:0030[facility] HermannCHEM MXFWO7488-79-04 17:12:006.3[facility] HermannCHEM MOCPE8496-29-92 17:12:003.1[facility] HermannCHEM EPFAZ2579-99-33 17:12:0017[facility] HermannCHEM IJRTE2074-39-93 17:12:0019 [facility] HermannCHEM DLNDU3209-34-48 17:12:0095[facility] HermannCHEM PANEL 2019-05-17 17:12:000.4[facility] HermannCHEM MKKEN6867-34-58 17:12:00 Test Item Value Reference Range Interpretation Comments B/C Ratio (test code = B/C Ratio) 23 1 6-25 [facility] QUYSX6165-15-38 17:12:003.2[facility] HermannCHEM PANEL 2019-05-17 17:12:00 Test Item Value Reference Range Interpretation Comments A/G Ratio (test code = A/G Ratio) 1.0 1 0.7-1.6 [facility]annCHE[facility] KFOOS6585-79-58 17:12:0014.0[facility] HermannCHEM PANEL 2019-05-17 17:12:001.1[facility]annCHEM TAVWZ3907-90-59 17:12:00<0.05 [facility]CHE[facility] XCZWO1583-14-88 17:12:50776Vynenbdh HermannENDOCRINOLOGY 2019-05-17 17:12:0013.3[facility] HddlrgtSVOGRSOJQF3740-96-24 17:12:00 Test Item Value Reference Range Interpretation Comments PT (test code = PT) 13.9 s 12.0-14.7 [facility] CenterNhjldfpQHKIRNGSEL9529-68-58 17:12:00 Test Item Value Reference Range Interpretation Comments INR (test code = INR) 1.07 1 0.85-1.17 [facility] CenterFgmiicqHMBFTXRIPL5341-20-23 17:12:00 Test Item Value Reference Range Interpretation Comments PTT (test code = PTT) 30.1 s 22.9-35.8 [facility] CenterannAKLECULAR BBQNIHPXEJ6072-37-81 17:12:00Nasophrngl Swb *NA*(05/17/19 11:12 AM)[facility] HermannMOLECULAR OTQJVZESQJ9294-05-22 17:12:00 Negative *NA*(05/17/19 11:12 AM)[facility] HermannMOLECULAR KLBJLDUYBG6677-48-65 17:12:00Negative *NA*(05/17/19 11:12 AM)[facility] HermannMOLECULAR DIAGNOSTIC 2019-05-17 17:12:00Negative *NA*(05/17/19 11:12 AM)[facility]annPARATHYROID NIVNNKY0932-34-94 17:12:001.15[facility] HermannPARATHYROID HFREENI2021-24-74 17:12:001.12[facility] HermannSPECIAL HPJBEGNTZ0023-60-94 17:12:005.8[facility] HermannURINE BKJX5400-54-86 17:12:74040Nzywsray HermannURINE GSWQ0932-93-86 17:12:87112Wtrzjmgq HermannCHEM WBNXV4017-08-09 11:10:40335Pmtoaxuc HermannCHEM LRMLW3458-35-68 11:10:0021[facility] HermannCHEM LENXK8115-43-96 11:10:000.99 [facility]annCHEM JYLKP6362-41-18 11:10:58560Iixvjito HermannCHEM PANEL 2019-04-10 11:10:004.2[facility] HermannCHEM JYMYH6608-69-41 11:10:69415Nchubfeo HermannCHEM OGICI8023-18-53 11:10:0028[facility] HermannCHEM SUPKD7443-99-56 11:10:009.2[facility] HermannCHEM XFDAW2922-66-27 11:10:0079[facility] HermannCHEM STBQF6348-67-20 11:10:0011.2[facility] CekfmdhTDCVFDHLRD1175-17-83 11:10:0010.3 [facility] LpnxpbyVWPTJBYVXW4403-73-07 11:10:003.52[facility] HermannHEMATOLOGY 2019-04-10 11:10:0011.3[facility] BlfylaaYQVDHMSBBX9410-24-06 11:10:0034.0[facility] PzkleilSVKHYIPJOJ8831-76-00 11:10:0096.6[facility] MyhkeatUFHAZRAUBR4924-16-79 11:10:00 Test Item Value Reference Range Interpretation Comments MCH (test code = MCH) 32.1 pg 27.0-31.0 [facility] AusdsyzFZPAHGUBRQ8750-61-32 11:10:0033.2[facility]annHEMATOLOGY 2019-04-10 11:10:0017.2[facility] AzduiybIPTNXARHCK7169-82-55 11:10:17427Juukzned BxrinmnBAUGFCZHEX0921-72-38 11:10:008.4[facility] AuvymxlGYFWOGJQAL9087-92-62 11:10:0077.2[facility] LmpycnkSPGWGOFXNQ2972-81-89 11:10:0013.4[facility] [place] GSLNUZRJGU6755-16-28 11:10:008.1[facility] FfudlxkLBYDQCABBF0801-17-66 11:10:000.9 [facility] GvsiakvQYHCKHGDJH6611-82-34 11:10:000.4[facility]annHEMATOLOGY 2019-04-10 11:10:008.0[facility] QrmisdwOJQXFPUWXI4953-88-93 11:10:001.4[facility] TrpgkfaVHKIHPYLYC7782-62-93 11:10:000.8[facility] LwjsheaVCZWGEOJZK5172-27-19 11:10:000.1[facility] CxsrmwqFFGFEVANVA6142-38-09 23:57:0012.0[facility] [place] [place] LVMCJLWSCS7515-06-01 23:57:0034.8[facility] NusoilnBMHQLJNYYM5745-95-41 16:29:00 11.1[facility] EtqmzehERBUZVUKEX5537-87-35 16:29:0032.7[facility]annBLOOD BANK AYDYQCZ5513-03-32 21:14:00Negative (04/08/19 3:14 PM)[facility] Master FKYJJYDPDBMI4893-79-33 21:14:0010.7[facility] DpulbjlVMGPDCNNNGLZ9627-42-37 21:14:00 Test Item Value Reference Range Interpretation Comments B/C Ratio (test code = B/C Ratio) 22 10-10 [facility] IsxnresSWPGUXQUNGXK6920-97-55 21:14:004.4[facility] HermannELECTROLYTES 2019-04-08 21:14:00 Test Item Value Reference Range Interpretation Comments A/G Ratio (test code = A/G Ratio) 0.7 1 0.7-1.6 [facility] DvznlmiXYTYINSXIPBM3377-00-11 21:14:46107Nychmsps HermannELECTROLYTES 2019-04-08 21:14:0023[facility] XqivtibPCYYXIATIHWQ5636-89-78 21:14:001.04[facility] JwiuteiTDPCIMVVUJEC4285-33-60 21:14:16611Gdumxhbh OayobikNIVUPVRATWTB7758-19-05 21:14:004.7[facility] JkanbxuZNKKIJWDSHBS7986-01-26 21:14:16931Yidjlbmc Master UEVTSRNNWVSA3092-35-48 21:14:0028[facility] NufsxzaMFCFSFZYQWFK2494-05-87 21:14:00 9.6[facility] HrwlzhrCEKKCTFNIQXN6925-21-20 21:14:007.5[facility] Master WZLFSUEWAKIH1347-20-06 21:14:003.1[facility] BfmprqfCUVNINKFOBYU0246-04-38 21:14:0032[facility] VlwsxenUPIQNSKUVSLL5782-67-83 21:14:0027[facility] Master EDVPLRLSTBLY8871-62-28 21:14:0099[facility] OnqsfznNHLEVGHEEIXT4031-76-12 21:14:00 0.2[facility] HjxplerDCVTMFLKSNBK5545-48-14 21:14:0075[facility]annHEMATOLOGY 2019-04-08 21:14:007.0[facility] EzjaiisXLAGPPIJVI1791-92-76 21:14:003.79[facility] UpqwfukBJWYYDFNZJ2931-04-17 21:14:0096.3[facility] UnnabkdOBZQFLXYJC3858-35-30 21:14:00 Test Item Value Reference Range Interpretation Comments MCH (test code = MCH) 32.4 pg 27.0-31.0 [facility] ZpftmipJIKXGXFZHZ8333-72-18 21:14:0033.7[facility] HermannHEMATOLOGY 2019-04-08 21:14:0017.0[facility] JuyhhejGJBEONSDVX2923-60-66 21:14:92114Rpmfddkx ElyatxtOLDREBYRLZ9562-80-47 21:14:008.4[facility] RfsykvoPBVXGHUUIK8665-94-12 21:14:00 Test Item Value Reference Range Interpretation Comments INR (test code = INR) 1.12 1 0.85-1.17 [facility] LadwixiCTWEPCACXK9741-01-94 21:14:00 Test Item Value Reference Range Interpretation Comments PT (test code = PT) 14.5 s 12.0-14.7 [facility] DnqvwsrKLPNPYXXEO3949-70-35 21:14:00 Test Item Value Reference Range Interpretation Comments PTT (test code = PTT) 28.5 s 22.9-35.8 [facility] ByeqgpuBKLFPTMGQN2364-99-05 21:14:0067.5[facility] HermannHEMATOLOGY 2019-04-08 21:14:0020.3[facility] YfdvmzdPMAZVLKWQV2582-13-86 21:14:0010.2[facility] GrhmfqnHVXYUIULVG6606-98-48 21:14:001.4[facility] ChbhjekEDVJXLDGDB1082-21-06 21:14:000.6[facility] EbmjqlrAJOOJRLBKB0047-61-21 21:14:004.7[facility] [place] IGBKQOTIGH4337-80-71 21:14:001.4[facility] UgldwviARYYXJKDBU9718-28-69 21:14:000.7 [facility] YufwhuiVNUYNQLGPN7366-13-20 21:14:000.1[facility] HermannURINE AND STOOL 2019-04-08 21:14:00Positive *ABN*(04/08/19 3:14 PM)[facility] HermannCHEM PANEL 2019-04-06 12:41:98838Vjijojxi HermannCHEM HFXSL7003-22-68 12:41:0024[facility] HermannCHEM YEEST2150-81-72 12:41:000.88[facility] HermannCHEM QRRFC5908-84-44 12:41:17607Wlcgpmeb HermannCHEM IXSMG3187-25-82 12:41:004.3[facility] HermannCHEM NZZCJ6708-37-47 12:41:21184Uwoobrgg HermannCHEM POFHS7045-82-16 12:41:0027 [facility] HermannCHEM EUAKF0103-92-54 12:41:009.5[facility] HermannCHEM PANEL 2019-04-06 12:41:006.6[facility] HermannCHEM VNCCF2737-08-44 12:41:002.9[facility] HermannCHEM GOWNI2001-20-17 12:41:0027[facility] HermannCHEM SURCY4559-30-05 12:41:0021[facility] HermannCHEM NWFXL2479-16-26 12:41:0082[facility] HermannCHEM IUJCC0479-76-92 12:41:000.4[facility] HermannCHEM YUCLE2202-85-55 12:41:0010.3 [facility] HermannCHEM YAAIP7076-98-28 12:41:00 Test Item Value Reference Range Interpretation Comments B/C Ratio (test code = B/C Ratio) 27 1 6-25 [facility] HermannCHEM ZGRYL2602-35-07 12:41:003.7[facility] HermannCHEM PANEL 2019-04-06 12:41:00 Test Item Value Reference Range Interpretation Comments A/G Ratio (test code = A/G Ratio) 0.8 1 0.7-1.6 [facility] HermannCHEM OPZCB2725-81-90 12:41:0090[facility] HermannHEMATOLOGY 2019-04-06 12:41:005.1[facility] LkaagtvTIDTQAORAB5159-68-78 12:41:003.46[facility] XimxlbfDFUPEDXAIF3293-18-52 12:41:0011.0[facility] RsputusPJOQVUETCC0619-15-83 12:41:0033.0[facility] OeggnuxNNNPNDKBND0326-66-56 12:41:0095.2[facility] [place] EAMZUDHNVD3295-84-20 12:41:00 Test Item Value Reference Range Interpretation Comments MCH (test code = MCH) 31.7 pg 27.0-31.0 [facility] DnceloaYCXNPZSBSU1953-37-26 12:41:0033.3[facility] HermannHEMATOLOGY 2019-04-06 12:41:0016.6[facility] RnmrlimSWCSCHLQBT0826-86-15 12:41:95024Fmmgkqye UdwbmwlXLSUYPNBAS7262-11-28 12:41:007.8[facility] YybezgdBLLGJFHTQS1154-13-07 12:41:0059.7[facility] ObyfqlkGXSKSCDCSW9952-41-42 12:41:0027.1[facility] Master FNZHKCLNHU0205-44-96 12:41:009.9[facility] IrgmxplIFRYFIHTIG5595-51-94 12:41:002.5 [facility] SrjpxtcLRDAHAQYQA2009-73-42 12:41:000.8[facility] HermannHEMATOLOGY 2019-04-06 12:41:003.0[facility] HrzjzpfJVRGDEGJOO7681-77-18 12:41:001.4[facility] JlyhurvUVWZCMAJHE6600-32-08 12:41:000.5[facility] OcnejxwBZEAFTPMIV4759-27-59 12:41:000.1[facility] HermannCHEM GBWHB9118-15-34 10:25:0090[facility] HermannCHEM CTQGS5047-65-93 10:25:0024[facility] HermannCHEM AOGSR9081-21-94 10:25:000.87 [facility] HermannCHEM RJUSF0236-15-71 10:25:17251Auylrcwx HermannCHEM PANEL 2019-04-06 10:25:005.3[facility] HermannCHEM SHKUB4786-17-20 10:25:77334Vcjcbjox HermannCHEM RFFKK8886-53-70 10:25:0024[facility] HermannCHEM DDVWH2888-93-04 10:25:0011.3[facility] HermannCHEM EPRQJ0216-95-43 10:25:009.2[facility] HermannCHEM WOQZC5345-75-32 10:25:0090[facility] HermannCHEM MBSGD6909-98-71 16:57:30008 [facility] HermannCHEM SMQWN9941-23-94 16:57:0024[facility] HermannCHEM PANEL 2019-04-05 16:57:000.95[facility] HermannCHEM KRZVN0431-31-51 16:57:10046Dtfchenj HermannCHEM MAAXZ6896-80-31 16:57:004.1[facility] HermannCHEM RXWRE5656-22-58 16:57:53524Xmrcjhhs HermannCHEM DUMCO7948-25-40 16:57:0026[facility] HermannCHEM PXALS1710-74-83 16:57:009.1[facility] HermannCHEM YCMTP3027-46-06 16:57:0083 [facility] HermannCHEM JEFPE6233-52-81 16:57:0012.1[facility] HermannHEMATOLOGY 2019-04-05 16:57:005.5[facility] BzrofcnOPYQKSGECV6730-04-52 16:57:003.47[facility] AtinvbfNFZTTUGREX4144-69-48 16:57:0010.7[facility] ZnzrkapXWHNPEYLBS9141-79-86 16:57:0032.9[facility] DkkjixxFYYYRLKLPW1425-27-34 16:57:0094.7[facility] [place] PPUNYMQDPK4825-03-63 16:57:00 Test Item Value Reference Range Interpretation Comments MCH (test code = MCH) 30.9 pg 27.0-31.0 [facility] IjxnieuICTYBYUBWL4594-08-62 16:57:0032.6[facility] HermannHEMATOLOGY 2019-04-05 16:57:0016.6[facility] DlpqtssGSBCKWBLRE0424-10-52 16:57:86714Jeezqvsc ZjzypcbHJLWYDLFWO7563-71-93 16:57:007.6[facility] PhjsyiwQEIVNLCDMW4225-83-40 16:57:0064.8[facility] YkevhnhKQOCJFUKPL6093-80-44 16:57:0024.8[facility] [place] AHGDBYLEBM1303-04-82 16:57:007.9[facility] MzcqigmMUHOWAEYAD6008-14-38 16:57:001.7 [facility] QfzrzuhFHPZNWKFRB0144-96-09 16:57:000.8[facility] HermannHEMATOLOGY 2019-04-05 16:57:003.5[facility] FkygipbQFZZZMCGBT5646-51-69 16:57:001.4[facility] PcjbfriSSXAVJWMCR5741-63-85 16:57:000.4[facility] GryyqcmYIACFZMQZV2371-07-19 16:57:000.1[facility] NyjwdiuLFQASZLCRG7329-93-55 10:31:005.2[facility] Msater IMWVEHPYVO2336-85-70 10:31:003.01[facility] RbtalmrGVMAUUVTLM2027-61-90 10:31:00 9.8[facility] PzmglrmGNBYONZYNR4473-19-36 10:31:0028.8[facility] HermannHEMATOLOGY 2019-04-04 10:31:0095.5[facility] LishvjjQWQZCJFMEZ2782-06-52 10:31:00 Test Item Value Reference Range Interpretation Comments MCH (test code = MCH) 32.4 pg 27.0-31.0 [facility] LbujtpsBLGYDZPGQV4333-77-21 10:31:0033.9[facility] HermannHEMATOLOGY 2019-04-04 10:31:0016.7[facility] ZgehswmYUCYGGTSVA0168-95-99 10:31:41689Gbrlqpua WpuikfaTCGZKEPWSI7216-71-12 10:31:007.9[facility] EiqvecwSQZXGFXEAT1131-12-96 10:31:0056.8[facility] EtvmbkoOYHJHXSAVP2312-35-10 10:31:0030.6[facility] Master RGXLPLSEWE6174-22-76 10:31:009.4[facility] IgjiqmuFKIZTKQRCL4934-45-44 10:31:002.2 [facility] AifxufhFPFDCJSBYA5851-72-21 10:31:001.0[facility] HermannHEMATOLOGY 2019-04-04 10:31:003.0[facility] XbjwqfxEUGKQOATCY7394-80-29 10:31:001.6[facility] HbhpfvaZDYUOZJVLM7758-11-61 10:31:000.5[facility] LwncrpiNPYIDPTLIO0770-35-66 10:31:000.1[facility] KmhvksvDJDDRQSAUS2931-14-52 10:31:000.1[facility] HermannCHEM PIQJU4726-72-81 07:47:002.0[facility] HermannCHEM XFMUH6612-86-36 07:47:003.7 [facility] HermannPARATHYROID SDKONLV7805-34-16 07:47:001.10[facility] [place] PARATHYROID CXSTLJL2333-23-22 07:47:001.15[facility] HermannCHEM DMREF7191-73-83 07:24:002.0[facility] HermannCHEM MFZIS7882-09-09 07:24:003.5[facility] [place] PARATHYROID HWDBFKE1011-44-84 07:24:001.21[facility] HermannPARATHYROID PROFILE 2019-04-02 07:24:001.25[facility] HermannCARDIAC COSPURW3112-92-16 17:02:47322 [facility]annURINE ZYNN6689-05-42 16:41:03503Pqipnajc HermannCARDIAC ENZYMES 2019-04-01 05:31:0089[facility] HermannCHEM TSMRI6618-80-37 05:31:001.8[facility] HermannCHEM QDMIN5879-67-01 05:31:003.1[facility] HermannPARATHYROID PROFILE 2019-04-01 05:31:001.16[facility] HermannPARATHYROID YUVADXM1589-58-22 05:31:00 1.20[facility]annURINE AND IBBKJ0400-42-85 21:58:00Yellow *NA*(03/31/19 3:58 PM)[facility]annURINE AND XCCGS7418-43-33 21:58:00Slight Cloudy (03/31/19 3:58 PM)[facility] AND HFPTQ0277-19-45 21:58:00 Test Item Value Reference Range Interpretation Comments UA Spec Grav (test code = UA Spec 1.020 1 Grav) [facility] AND ZCYZL6023-32-44 21:58:00 Test Item Value Reference Range Interpretation Comments UA pH (test code = UA pH) 7.5 1 5.0-8.0 [facility]UR[facility] AND JRHTR7052-35-99 21:58:00Negative *NA*(03/31/19 3:58 PM)[facility] AND ITPUR5281-01-22 21:58:00Negative (03/31/19 3:58 PM) [facility] AND CCOIA3899-06-73 21:58:000.2[facility]URINE AND CQOEE0281-92-84 21:58:00Negative (03/31/19 3:58 PM)[facility] AND CAPXR2754-29-17 21:58:00Negative (03/31/19 3:58 PM)[facility]UR[facility] AND YXJSI8635-59-39 21:58:00None Seen (03/31/19 3:58 PM)[facility] HermannCHEM PANEL 2019-03-29 17:36:00 Test Item Value Reference Range Interpretation Comments B/C Ratio (test code = B/C Ratio) 18 1 6-25 [facility] HermannCHEM IEFZG8861-02-57 17:36:005.8[facility] HermannCHEM PANEL 2019-03-29 17:36:002.4[facility] HermannCHEM DUGYM3325-89-64 17:36:003.4[facility] HermannCHEM EIDNR3806-63-31 17:36:00 Test Item Value Reference Range Interpretation Comments A/G Ratio (test code = A/G Ratio) 0.7 1 0.7-1.6 [facility] HermannCHEM ESIHH1319-91-29 17:36:0017[facility] HermannCHEM PANEL 2019-03-29 17:36:0014[facility] HermannCHEM BKQRB5655-05-60 17:36:0081[facility] HermannCHEM IHVPL7316-44-82 17:36:000.4[facility] QacgqxwZGVIGJMDTT3748-62-01 17:36:0045[facility] FnisxftYQFNISWPZJ4368-10-09 17:36:0022.6[facility] HermannURINE TPYM7320-07-17 15:26:0099[facility]annURINE ZAUX1553-97-39 15:26:48158 [facility]URINE SXHY9991-31-97 15:26:0034.2[facility]annURINE CHEM 2019-03-29 15:26:80481Ofgcryas HermannURINE NUAI9038-43-13 15:26:0052.60[facility] HermannCHEM RKSAO9993-72-40 14:40:44109Azxoafwx HermannCHEM FOXYL2270-36-89 11:26:01554Hliirzik HermannBLOOD BANK EFIESRS0216-65-25 06:30:00Negative (03/29/19 12:30 AM)[facility]RAUPXCV3799-78-04 06:16:00 Negative (03/29/19 12:16 AM)[facility]HtijckxMZPZIZCOZC1665-19-02 06:16:000.1 [facility]villeMnawjwsGSABKDYDOE5539-27-08 03:36:00 Test Item Value Reference Range Interpretation Comments PT (test code = PT) 13.7 s 12.0-14.7 [facility]villeQwvdvokGYOCYOGQOI6681-23-20 03:36:00 Test Item Value Reference Range Interpretation Comments INR (test code = INR) 1.07 1 0.85-1.17 [facility]villeWpzzeigBWFWPWSYNK4035-67-52 03:36:00 Test Item Value Reference Range Interpretation Comments PTT (test code = PTT) 30.9 s 22.9-35.8 [facility]villePyuvjldIZRGJVCQJP0129-90-68 03:36:003.0[facility] 03:36:00 Test Item Value Reference Range Interpretation Comments ACT (TEG) Rapid (test code = ACT (TEG) 113 s 86-118 Rapid) [facility] GreenvilleHlmziaaOUIAFQFYOJ6244-73-81 03:36:00 Test Item Value Reference Range Interpretation Comments Split Point Rapid (test code = Split 0.5 min Point Rapid) [facility] GreenvilleKqysyzrHOCHEHHXVW1904-97-12 03:36:00 Test Item Value Reference Range Interpretation Comments R-time Rapid (test code = R-time 0.7 min 0.4-0.7 Rapid) [facility]villeWjlsbnoYASEIDTROZ1086-85-81 03:36:00 Test Item Value Reference Range Interpretation Comments K-time Rapid (test code = K-time 1.5 min 0.6-2.3 Rapid) [facility] GreenvilleDtopiaqPRSTBILIFY9317-39-88 03:36:00 Test Item Value Reference Range Interpretation Comments Angle Rapid (test code = Angle 73 degrees 64-80 Rapid) [facility] GreenvilleYostganJNBZJDEMXF6736-80-31 03:36:00 Test Item Value Reference Range Interpretation Comments Max Amplitude Rapid (test code = Max 62 mm 52-71 Amplitude Rapid) [facility] GreenvilleYlkbvgnWPUHNLGHLN6898-08-27 03:36:008.2[facility] HermannCHEM PANEL 2019-03-29 02:53:09341Ckwxhwfs HermannURINE AND XQXVG7164-83-60 23:27:00Yellow *NA*(03/28/19 5:27 PM)[facility]annUR[facility] AND VRZKH5264-27-07 23:27:00Clear (03/28/19 5:27 PM)[facility]annUR[facility] AND PIGUZ3558-45-15 23:27:00 Test Item Value Reference Range Interpretation Comments UA Spec Grav (test code = UA Spec 1.010 1 Grav) [facility] XBLGO3835-71-82 23:27:00 Test Item Value Reference Range Interpretation Comments UA pH (test code = UA pH) 7.0 1 5.0-8.0 [facility]UR[facility] AND VXKXB1868-88-93 23:27:00Negative *NA*(03/28/19 5:27 PM)[facility]UR[facility] AND SNGTJ6287-19-49 23:27:00Negative (03/28/19 5:27 PM) [facility] RCYYD0396-46-76 23:27:00Negative (03/28/19 5:27 PM) [facility] CRFZF1095-53-54 23:27:00Trace *ABN*(03/28/19 5:27 PM) [facility] AND VYHJN5488-04-50 23:27:008[facility]annURINE AND XCVIE9430-41-50 23:27:002[facility]annURINE BVKV9546-61-19 23:27:0098[facility]annURINE CARF6962-86-30 23:27:0039.2[facility]annURINE MXNM9335-33-17 23:27:73370Nzmbxjlk HermannURINE TLNF2578-00-08 23:27:41974Vcbmwvnr Master CARDIAC OOWSMPI8302-34-77 22:09:00<0.02[facility] HermannCARDIAC ENZYMES 2019-03-28 22:09:0074[facility] HermannCHEM NPTBL4825-08-74 22:09:0095[facility] DziwwmaJOVHVPCZHQ6916-94-21 22:09:005.8[facility] LivgoblXZPQEBOQVJ6585-08-75 22:09:003.67[facility] BitzovzUTPOMTDIJW2981-92-59 22:09:0011.6[facility] [place] DGTSXQEGUS0208-24-63 22:09:0033.4[facility] GxefylbQKPWJTBIPN8881-05-69 22:09:00 90.9[facility] PddedphFXLSXUOABH8139-32-59 22:09:00 Test Item Value Reference Range Interpretation Comments MCH (test code = MCH) 31.6 pg 27.0-31.0 [facility] AmdlkitJYCPZHZXUT9102-19-45 22:09:0034.8[facility] HermannHEMATOLOGY 2019-03-28 22:09:0016.5[facility] BvfbqfxRKKNOYKLDG1784-85-96 22:09:67884Dowbtpxf HkrhlbyXSUYVBLPAC3561-27-98 22:09:006.9[facility] VzonqcwODSPFVMBMP4239-24-02 22:09:00 Test Item Value Reference Range Interpretation Comments PT (test code = PT) 14.1 s 12.0-14.7 [facility] UpgmgdrCMAODCHVDT2174-30-45 22:09:00 Test Item Value Reference Range Interpretation Comments INR (test code = INR) 1.11 1 0.85-1.17 [facility] EbuupdqLHGBVMMYFZ1104-94-03 22:09:0059.5[facility] HermannHEMATOLOGY 2019-03-28 22:09:0021.9[facility] ZigdwseFAVEDLVHMC6158-12-02 22:09:0016.3[facility] MbddaweUYTHEVHQUV2715-27-38 22:09:001.8[facility] HxqtpktQEQYZGHICZ1513-42-88 22:09:000.5[facility] PsanavqAUYGJAIGMC7089-62-92 22:09:003.5[facility] Master WHEZUUTDSG6092-98-85 22:09:001.3[facility] VbbwrdlJEGYEALCYD1919-62-41 22:09:001.0 [facility] XklwcgcJCMAWOZFCM3797-50-45 22:09:000.1[facility] HermannHEMATOLOGY 2019-03-28 22:09:000.0[facility] HermannCHEM GELZR1929-57-57 22:07:90830Ykofbuzx HermannCHEM VRYXU0534-97-34 22:07:0015[facility] HermannCHEM MPWRA0774-05-15 22:07:000.77[facility] HermannCHEM MJOJB7886-99-61 22:07:03267Rtmkhkmy HermannCHEM DQNHR4180-12-82 22:07:004.9[facility] HermannCHEM RAQCS4575-88-18 22:07:0086 [facility] HermannCHEM SOOTV9247-68-58 22:07:0026[facility] HermannCHEM PANEL 2019-03-28 22:07:0012.9[facility] HermannCHEM YBOSC4515-31-51 22:07:008.3[facility] BxstyocPMAKVZFLHPQA1251-80-12 15:16:59532Ekkpdfpj HermannCHEM KQXUK8732-54-83 06:37:12346Oedaoaaj HermannCHEM LUSFA7022-92-87 06:37:0022[facility] HermannCHEM NWVGY1782-57-77 06:37:001.04[facility] HermannCHEM OZNCE9214-31-61 06:37:66662 [facility] HermannCHEM KDACE6907-87-46 06:37:004.6[facility] HermannCHEM PANEL 2019-03-09 06:37:90544Dudlyxpd HermannCHEM IXQBN4424-88-36 06:37:0023[facility] HermannCHEM ZGFVW2243-95-12 06:37:008.1[facility] HermannCHEM XCWXG9773-19-52 06:37:0075[facility] HermannCHEM NPZWA7422-55-35 06:37:0010.6[facility] Master FLFOHUFBPL5010-79-93 06:37:0075.8[facility] HzlakhtWXYADGYSCP7457-67-03 06:37:00 11.7[facility] ShhxezcNHMQOHRRTC2709-52-51 06:37:0010.9[facility] HermannHEMATOLOGY 2019-03-09 06:37:001.3[facility] JapgxqlYPLSZYTIVS6359-27-78 06:37:000.3[facility] UginozrXRUQNCZBWG7953-42-44 06:37:006.1[facility] CccklgkMYKNXWYGCM5995-29-93 06:37:000.9[facility] DorasyiKTBUOENWVR0953-07-01 06:37:000.9[facility] [place] NEWKVLWALY4639-55-08 06:37:000.1[facility] MgavluzCBRSWUJLWO5993-62-26 06:37:008.1 [facility] MhehrhrBHPMRGROTK2735-76-32 06:37:002.86[facility] HermannHEMATOLOGY 2019-03-09 06:37:009.0[facility] EyjqmoeFKJZLNDGHE3764-71-95 06:37:0027.2[facility] IcfabejVPLTOWTNNW6579-43-80 06:37:0095.1[facility] PgadeblRQNKAHNINA5982-07-68 06:37:00 Test Item Value Reference Range Interpretation Comments MCH (test code = MCH) 31.5 pg 27.0-31.0 [facility] UaglouxSBIYBRYXYY5455-63-30 06:37:0033.1[facility] HermannHEMATOLOGY 2019-03-09 06:37:0019.0[facility] JxiozyaZDZZFRVKRP0065-26-33 06:37:78514Zbbwctcc EqwgabiHQMANHOMWL4523-55-22 06:37:0010.0[facility] BwaagdiKSNOTJAPIQND2312-84-84 22:16:06372Plryrgfp QwsfsqxBPGPYURYCH0974-33-65 17:18:008.5[facility] NEQVMEVTCI7836-28-45 17:18:003.27[facility] OvwbbtpVKGPDZVTZK4252-60-80 17:18:00 10.2[facility] IzfudaiUJNRXMJVGD5599-72-56 17:18:0031.2[facility]annHE[facility]OLOGY 2019-03-08 17:18:0095.5[facility] HjynrewZEIIWKCRZJ8083-21-12 17:18:00 Test Item Value Reference Range Interpretation Comments MCH (test code = MCH) 31.3 pg 27.0-31.0 [facility] FsjmiuqQZKLWDLWSC3800-54-85 17:18:0032.7[facility]annHEMATOLOGY 2019-03-08 17:18:0019.1[facility] IhbogydFBRDUCDGAM2832-18-40 17:18:12043Jlncgffm PncsbirSASFXGKHVZ0009-74-70 17:18:009.8[facility] ZzdklfcDRNGYHLVCP9644-10-44 17:18:0076.3[facility] WlmepviHGOGSOUSRG3907-44-67 17:18:0011.5[facility] UXCATCMXOX2973-16-00 17:18:0011.0[facility] RgqzebbOCELXZVYBH6163-83-75 17:18:00 1.0[facility] TblybzzGCYLHOTWLV5936-25-58 17:18:000.2[facility]annHEMATOLOGY 2019-03-08 17:18:006.5[facility] QfhuyggKYWNVQVVYG1891-44-98 17:18:001.0[facility] MedfduaZRPAAYWALT2596-80-06 17:18:000.9[facility] XtwlerfMGBABEBHOD1118-40-51 17:18:000.1[facility] XpmnlbgOQNZZDFYCA9419-41-31 11:13:0010.7[facility] AXNJSUQCNF1161-07-58 11:13:001.1[facility] UuwmoinCEMTQSEYKF8346-88-75 11:13:000.7 [facility] YebbffgBIYPNCDHZL9328-19-29 11:13:006.1[facility]annHEMATOLOGY 2019-03-08 11:13:000.9[facility] GoqypadKYCSHEELWR6012-97-66 11:13:000.9[facility] OkntphgMBEYHCVKTQ1494-00-79 11:13:000.1[facility] EjruzdoGBWRDQUXPI3606-52-34 11:13:000.1[facility] LprdhcfFDIGMXTXZSXL7284-56-82 11:13:0010.7[facility] [place] UJUODDOFNXZP6421-74-51 11:13:59655Ixcwurmb ByclmomCEQKEIIHXCYD7572-02-42 11:13:0022[facility] QqjrxnlASMFVBWUUFOH2812-85-59 11:13:001.26[facility] [place] FRCQOLQWHOER1479-30-20 11:13:004.7[facility] JruqjjoMIKMPBEXRJKD0251-88-63 11:13:63685Tibntvpp TywfckgUYBFCIIJWONB7408-25-32 11:13:0021[facility] [place] UNDVBSLMYHHK6154-22-72 11:13:007.9[facility] QklwjzpZUGHSKDXTQAC8899-78-40 11:13:0059[facility] FgotmecOQNVKTTUZW1167-41-79 11:13:008.0[facility] JIRSWXFFQM8530-79-15 11:13:002.91[facility] GmmhbmtWCKQLVSXZX5804-74-09 11:13:00 9.3[facility] XgdtkjlLVHMAPXWSB8277-31-91 11:13:0027.6[facility]annHEMATOLOGY 2019-03-08 11:13:0094.9[facility] EfsyevvBBCQWPHWCQ8316-02-51 11:13:00 Test Item Value Reference Range Interpretation Comments MCH (test code = MCH) 32.0 pg 27.0-31.0 [facility] ByjtlboQXGXJQNORF2563-72-71 11:13:0033.7[facility]annHEMATOLOGY 2019-03-08 11:13:0018.7[facility] FwoaberOZOTVAXNUX9091-80-09 11:13:78061Djbggzmm WedpvaeYKHDIWZTHC6709-23-58 11:13:0010.2[facility] UkrofiwQNSBEDTKAI2499-31-73 11:13:0075.7[facility] CeiuzwyELPBDBKVHC4288-34-58 11:13:0011.8[facility] [place] URINE PRAC6432-55-31 03:14:68478Xhlkxpoj HermannURINE OKMD4212-42-22 03:14:41474 [facility]annCHEM RZLVF1169-02-03 12:13:44899Ywsexvok HermannCHEM PANEL 2019-03-07 12:13:000.12[facility] AND RUXUP9690-27-90 23:39:00Yellow *NA*(03/06/19 5:39 PM)[facility] ITAFI6241-61-80 23:39:00Marked *ABN*(03/06/19 5:39 PM)[facility] XAMSV8834-50-97 23:39:00 Test Item Value Reference Range Interpretation Comments UA Spec Grav (test code = UA Spec 1.015 1 Grav) [facility] PRGIB8071-82-96 23:39:00 Test Item Value Reference Range Interpretation Comments UA pH (test code = UA pH) 7.0 1 5.0-8.0 [facility] ZFMHL6633-09-66 23:39:00Negative (03/06/19 5:39 PM) [facility] EJDKL5797-00-13 23:39:00Negative *NA*(03/06/19 5:39 PM)[facility] AOSAA2662-24-02 23:39:00Negative *NA*(03/06/19 5:39 PM)[facility] EHMZW2934-43-08 23:39:00Negative (03/06/19 5:39 PM) [facility] HXSPL6801-95-76 23:39:00<1.0[facility] KGLIP3172-46-13 23:39:00Negative (03/06/19 5:39 PM)[facility] DDARS4098-11-80 23:39:00Negative (03/06/19 5:39 PM)[facility] KQZCO9855-97-42 23:39:00None Seen (03/06/19 5:39 PM)[facility]annHEMATOLOGY 2019-03-06 23:07:00 Test Item Value Reference Range Interpretation Comments PT (test code = PT) 12.4 s 12.0-14.7 [facility] QslaupgJYLHPTBGCW3187-15-37 23:07:00 Test Item Value Reference Range Interpretation Comments PTT (test code = PTT) 22.5 s 22.9-35.8 [facility] BfimknhXJRHTQLFVB8379-79-21 23:07:000.1[facility]annCARDIAC ENZYMES 2019-03-06 23:07:000.02[facility]annCARDIAC NNIUITW7419-30-17 23:07:0092 [facility]annCHEM KBUWJ8727-46-73 23:07:001.3[facility] HermannELECTROLYTES 2019-03-06 23:07:0014.1[facility] BcqvqheKQQQDGXIMAGJ2075-40-55 23:07:10741 [facility] TqswpmjPDPAOECLTZGL2504-64-34 23:07:0023[facility] HermannELECTROLYTES 2019-03-06 23:07:001.22[facility] OnbgcwbZJLERPNUFICO1997-41-78 23:07:005.1 [facility] HmwchkwADBHOIDWDBUV2490-71-52 23:07:13703Nzgmtlja HermannELECTROLYTES 2019-03-06 23:07:0022[facility] NubwhhwQBRVARGGNSPV4720-24-48 23:07:008.6[facility] FiqcfkvPXRAGEDGCYAR5881-87-11 23:07:0062[facility] KzwtnluHWZNOYYYBX5414-35-20 23:07:00 Test Item Value Reference Range Interpretation Comments INR (test code = INR) 0.94 1 0.85-1.17 [facility] GsrlgdaXSYDVQJSEZ3749-92-88 21:50:0011.8[facility]annHEMATOLOGY 2019-02-28 21:50:002.97[facility] TvyueefEZUPTEOKAI2587-64-08 21:50:009.0[facility] JceknkfUVJPBDORDF9482-73-17 21:50:0028.0[facility] KovlhftRNJGVGEAMD6893-66-10 21:50:0094.1[facility] QlzeksoPRCRKPXFRF0562-37-07 21:50:00 Test Item Value Reference Range Interpretation Comments MCH (test code = MCH) 30.2 pg 27.0-31.0 [facility] DgzxbnaEWECOIEPKU5928-04-74 21:50:0032.1[facility]annHEMATOLOGY 2019-02-28 21:50:0016.6[facility] RzkajnpBGOPBEOORE6333-72-93 21:50:48454Cxxkuuco VmmvahqUQFINWDHTD6127-14-68 21:50:009.9[facility] YqsisxpXWVSWSWJGX6800-13-11 21:50:0078.3[facility] YxeumbsOVOVVVTVLX3614-21-37 21:50:0011.1[facility] Master RZDWNODGCA7715-93-21 21:50:008.7[facility] LildfsuPLSSPFOGLL1449-53-36 21:50:001.3 [facility] JmmxnkmALLIITKSEY5894-09-71 21:50:000.6[facility]annHEMATOLOGY 2019-02-28 21:50:009.2[facility] FilhkxqVSQHGVNYUV9027-70-77 21:50:001.3[facility] RyiglcvVUMNZVWGKQ6693-02-82 21:50:001.0[facility] IsxvzxkAWLDYZSCEA8343-95-73 21:50:000.2[facility] YemqwovMUUPVLKPJT7816-05-61 21:50:000.1[facility] HermannCHEM ORLLW5724-90-99 14:45:000.25[facility] JbmybchQLWCSCSOOOWF8377-59-09 14:45:007.6 [facility] HikjtyfAEQMPMHOZCLL5333-04-94 14:45:49585Qfzrulhq HermannELECTROLYTES 2019-02-28 14:45:0036[facility] PvbafpyQXYSZFVTCIJL7177-81-44 14:45:001.54[facility] XgxlanbCNYCVXFTUVHO5326-44-78 14:45:42687Maelywrx VvnufqtFVNBMQBJLNVP2154-10-51 14:45:004.6[facility] OzxawctWFSZNNVLMZBQ4038-62-99 14:45:42715Cvsfoxcs [place] AUNCBISXSRFL9789-28-05 14:45:0027[facility] YdfqjtcDKKINVMHBTBN8970-23-77 14:45:00 8.6[facility] GhretkbCAQTFSDECAJV5493-44-73 14:45:0047[facility]annHEMATOLOGY 2019-02-28 14:45:009.8[facility] RalqouwZUGLVDAUDB9708-52-48 14:45:002.94[facility] UnncuhyCCGDJMRUUG2243-25-14 14:45:009.0[facility] FpklusxWIEPGUIEET6661-03-94 14:45:0027.6[facility] ZudmiosNJBIHSTIOP7403-06-32 14:45:0093.9[facility] [place] ERAWOZBUXY0236-28-25 14:45:00 Test Item Value Reference Range Interpretation Comments MCH (test code = MCH) 30.6 pg 27.0-31.0 [facility] KoazffeSRZGWDLVHF6780-96-45 14:45:0032.6[facility]annHEMATOLOGY 2019-02-28 14:45:0016.7[facility] EmfpkfvBUZZSLFHKJ1039-40-90 14:45:0077[facility] WlhzutaQUVBSGSHQV1343-98-78 14:45:009.8[facility] PnwbvnkXXFFXLQFES4426-27-77 14:45:00Normal (02/28/19 8:45 AM)[facility] KkfnkgmJCZMTBKILC7691-68-76 14:45:00 Normal (02/28/19 8:45 AM)[facility] FhtujtaYPAXJTBTVR7388-72-66 14:45:0079.4 [facility] DhdtrwcZNJMBLEAHO6294-61-73 14:45:0012.1[facility]annHEMATOLOGY 2019-02-28 14:45:007.0[facility] OqnwqmmWUNZNFLLWA5749-47-61 14:45:001.0[facility] NhjjifvADIIPTZZBW2472-92-23 14:45:000.5[facility] GeyyskxIPGDAFQBTZ4842-19-27 14:45:007.8[facility] PouyksvHWMPVCXZQH0205-64-56 14:45:001.2[facility] [place] RFNSXUGTYJ3517-90-81 14:45:000.7[facility] HeausvvFBFOUMWTSI7037-71-40 14:45:000.1 [facility] TbhkypqDHUKTSPVYZ1295-10-62 14:45:000.1[facility]annCHEM PANEL 2019-02-28 10:00:000.29[facility]annCHEM USVLO3347-34-93 06:32:000.41[facility]annCHEM PQRKD4867-84-03 10:27:59903Jcdjxqbf HermannCHEM XEXUQ3351-52-78 10:27:0037[facility]annCHEM XOZRP7830-13-89 10:27:001.66[facility]annCHEM TGQTR1740-72-18 10:27:15008Mksyueeh HermannCHEM CSSPK2897-13-34 10:27:004.9 [facility]annCHEM CLHTZ8667-81-29 10:27:43965Ohlbtdxo HermannCHEM PANEL 2019-02-26 10:27:0026[facility] HermannCHEM ATRVQ1442-83-19 10:27:008.3[facility]annCHEM GYQKH0790-14-57 10:27:0042[facility]annCHEM WZKKW7263-32-53 10:27:007.9[facility] TjohrmxENSWGHOCRP7726-75-27 10:27:0011.7[facility] [place] ZAYSQODFIX0709-24-02 10:27:002.73[facility] WphzdybZZQUHEIESD3018-83-48 10:27:00 7.9[facility] FkiyhrtLAPMGVBUDR6317-09-37 10:27:0025.7[facility]annHEMATOLOGY 2019-02-26 10:27:0094.1[facility] ZtvbbnnJLWSEFFGAH4616-88-08 10:27:00 Test Item Value Reference Range Interpretation Comments MCH (test code = MCH) 29.1 pg 27.0-31.0 [facility] XjpbkpjWDQEQCEGDA3942-28-36 10:27:0030.9[facility]annHEMATOLOGY 2019-02-26 10:27:0016.8[facility] DcihgroCMAFJDPCAS6666-76-47 10:27:62523Nbaxopwv KsgzsmkIKJDRMXDAE3339-64-09 10:27:0010.5[facility] PtsyrnjLROCJGIATG2024-69-66 10:27:0081.9[facility] GhowcwjROPVUTRVOP7316-69-50 10:27:008.6[facility] QARXFRVASC3043-03-59 10:27:007.9[facility] YriebuuAFBBSCUVYB8484-44-35 10:27:001.2 [facility] MdqzythSINLVBRJSD7525-76-09 10:27:000.4[facility]annHEMATOLOGY 2019-02-26 10:27:009.6[facility] McfcwywOPHHRCUOIU8021-40-80 10:27:001.0[facility] GbmpkyjOPPIIGELVQ2309-23-70 10:27:000.9[facility] YdxkzeeTWOHYORZXT5891-33-39 10:27:000.1[facility] HermannCHEM LDWZO5779-21-65 11:00:19552Omdpefvz HermannCHEM HPKYP8075-03-25 11:00:0039[facility]annCHEM DHJPQ8839-97-75 11:00:001.79 [facility]annCHEM WOHTY5481-03-92 11:00:51057Nezzgaka HermannCHEM PANEL 2019-02-25 11:00:004.1[facility] HermannCHEM WSKMD6601-18-80 11:00:22325Ggufwdyz HermannCHEM WUFKN1414-85-27 11:00:0026[facility] HermannCHEM FHVAI5441-33-63 11:00:007.9[facility]annCHEM NKMCC6429-80-46 11:00:0039[facility]annCHEM HNNCZ6054-03-06 11:00:008.1[facility]annBLOOD BANK BZYZISY6929-07-45 10:26:00 Negative (02/23/19 4:26 AM)[facility]annCHEM XICOL6310-06-42 10:26:002.4 [facility]annCHEM JQOFE7843-82-40 10:26:002.6[facility] HermannCHEM PANEL 2019-02-23 10:26:005.2[facility] HermannCHEM PKKKE7510-08-00 10:26:002.4[facility] HermannCHEM UWEGD3361-84-25 10:26:0023[facility] HermannCHEM TXPFF7761-15-90 10:26:0041[facility] HermannCHEM GHXIS3650-10-89 10:26:0053[facility]annCHEM VCKKX4335-53-62 10:26:002.1[facility]annCHEM ETSQX5139-76-51 10:26:00 Test Item Value Reference Range Interpretation Comments B/C Ratio (test code = B/C Ratio) 20 1 6-25 [facility]annCHEM GAZOQ0524-00-40 10:26:002.8[facility] HermannCHEM PANEL 2019-02-23 10:26:00 Test Item Value Reference Range Interpretation Comments A/G Ratio (test code = A/G Ratio) 0.9 1 0.7-1.6 [facility] GybwxqcMTBMUR6941-03-57 10:26:18805Wjhucech HermannCHEM DSMDI9290-23-94 07:32:002.6[facility] HermannCHEM LCTON7236-35-59 07:32:002.7[facility] [place] ZUVDKE6134-10-82 07:32:22690Fulyqopv HermannPARATHYROID VEFTFIP7421-82-73 07:32:001.22[facility] HermannPARATHYROID RSBGUFX7827-23-12 07:32:001.24[facility] YbjnfnkUTVFIOEJWN4940-19-61 12:43:00 Test Item Value Reference Range Interpretation Comments ACT (TEG) Rapid (test code = ACT (TEG) 97 s 86-118 Rapid) [facility]clqtctHZSBRNOSTJ4722-94-42 12:43:00 Test Item Value Reference Range Interpretation Comments Split Point Rapid (test code = Split 0.3 min Point Rapid) [facility]MtmttghEJICPVJFIY7463-06-16 12:43:00 Test Item Value Reference Range Interpretation Comments R-time Rapid (test code = R-time 0.5 min 0.4-0.7 Rapid) [facility]villeYcqeqhjMWUNUYPLTP1042-55-73 12:43:00 Test Item Value Reference Range Interpretation Comments K-time Rapid (test code = K-time 1.0 min 0.6-2.3 Rapid) [facility] GreenvilleHlgrbntRERSXHBCFK9515-29-58 12:43:00 Test Item Value Reference Range Interpretation Comments Angle Rapid (test code = Angle 77 degrees 64-80 Rapid) [facility] GreenvilleArexzsaCELYFDWTYC8054-24-90 12:43:00 Test Item Value Reference Range Interpretation Comments Max Amplitude Rapid (test code = Max 68 mm 52-71 Amplitude Rapid) [facility] GreenvilleUdtucitAFCHUDRHXA5325-39-43 12:43:0010.7[facility]AT[facility] 2019-02-20 12:43:000.0[facility]MmnjjnrJHJHHWYZGT1693-44-90 12:20:00 Test Item Value Reference Range Interpretation Comments PTT (test code = PTT) 27.4 s 22.9-35.8 [facility] HospitalDkeoneiFDNXJABOEQ5863-78-74 12:20:00 Test Item Value Reference Range Interpretation Comments PT (test code = PT) 15.1 s 12.0-14.7 [facility] CenterRxumkerBJIRNHQWZL9046-77-99 12:20:00 Test Item Value Reference Range Interpretation Comments INR (test code = INR) 1.21 1 0.85-1.17 [facility]2019-11-05 10:44:002.6[facility] HermannCHEM PANEL 2019-02-20 10:44:002.7[facility] HermannPARATHYROID QNHBXDI7281-80-43 10:44:001.19 [facility]annPARATHYROID RFUKMFR0690-83-58 10:44:001.21[facility]annBLOOD BANK WAOPXJO8730-02-15 10:03:00Negative (02/19/19 4:03 AM)[facility] [place] PARATHYROID CKHESSQ2654-61-34 09:06:001.23[facility] HermannPARATHYROID PROFILE 2019-02-19 09:06:001.27[facility]annBL[facility]OD BANK GFSYSSZ0618-85-27 10:00:00 Product available (02/17/19 5:00 AM)[facility] HermannCARDIAC AAIOBMB4459-63-91 08:12:000.04[facility] HermannCARDIAC PTNEKSJ3228-23-77 08:12:083131Cxkhwisj HermannCARDIAC NFEUJBZ5266-77-44 08:12:004.7[facility] HermannCARDIAC ENZYMES 2019-02-17 08:12:00 Test Item Value Reference Range Interpretation Comments CK MB Index (test 0.3 1 See_Comment [Automate d message] The code = CK MB Index) system w [facility] generated this result transmit guillaume reference range : <=2.5. The reference range was not used to interpr et this result as jd l/abnormal. [facility]annURINE GVIP2014-13-48 08:12:0027[facility] CHEM 2019-02-17 08:12:76024.00[facility] MswionsOMVYWLODAI2525-67-20 07:56:00 Test Item Value Reference Range Interpretation Comments R-time (test code = R-time) 4.3 min 5.0-10.0 [facility] WampoaiZMXSYBBTBJ0547-70-20 07:56:00 Test Item Value Reference Range Interpretation Comments K-time (test code = K-time) 2.2 min 1.0-3.0 [facility] TxcvmkgEUYOLSTLUV3142-68-88 07:56:00 Test Item Value Reference Range Interpretation Comments Angle (test code = Angle) 61.0 degrees 53.0-72.0 [facility] RcmjpbxJZEACIFITL6715-38-02 07:56:00 Test Item Value Reference Range Interpretation Comments Max Amp (test code = Max Amp) 57.1 mm 50.0-70.0 [facility]villeKzfqwxqYVDQNIYYAR6930-57-67 07:56:006.7[facility] 2019-02-17 07:56:000.5[facility] GreenvilleRqfydlqCXIBJYMQSS0686-65-98 07:56:00 Test Item Value Reference Range Interpretation Comments Coag Index (test code 0.2 1 See_Comment [Auto mated message] The = Coag Index) system which g enerated this result transmit guillaume reference range : <=3.0. The reference range was not used to interpr et this result as jd l/abnormal. [facility] GreenvilleRklfuzrNANBXRMVAX8950-74-54 07:56:00See Note (02/17/19 2:56 AM)[facility] GreenvilleYcmhmnmUOQBOFGXKC5965-50-12 07:56:00 Test Item Value Reference Range Interpretation Comments PTT (test code = PTT) 28.8 s 22.9-35.8 [facility] GreenvilleVvcztdrTYRMFHRLJU2628-91-20 07:56:00 Test Item Value Reference Range Interpretation Comments PT (test code = PT) 15.4 s 12.0-14.7 [facility] GreenvilleWfpmbjyRJLZREIWVY3494-70-59 07:56:00 Test Item Value Reference Range Interpretation Comments INR (test code = INR) 1.24 1 0.85-1.17 [facility] GreenvilleLlclfygGVXPDVTZHW3422-61-90 11:32:00 Test Item Value Reference Range Interpretation Comments PTT (test code = PTT) 30.8 s 22.9-35.8 [facility] GreenvilleYhwidkzSDSLTXYWXA0370-76-58 11:32:00 Test Item Value Reference Range Interpretation Comments PT (test code = PT) 16.0 s 12.0-14.7 [facility] GreenvilleJcgliwcZSMJWKRXZQ4247-20-75 11:32:00 Test Item Value Reference Range Interpretation Comments INR (test code = INR) 1.31 1 0.85-1.17 [facility] GreenvilleOswgsamDIKDXUISJS4005-90-72 11:32:00 Test Item Value Reference Range Interpretation Comments R-time (test code = R-time) 3.7 min 5.0-10.0 [facility] GreenvilleChypxcmLHUYNUPRJP2312-27-51 11:32:00 Test Item Value Reference Range Interpretation Comments K-time (test code = K-time) 1.5 min 1.0-3.0 [facility] VofabriJRTFNNBZJA6700-57-83 11:32:00 Test Item Value Reference Range Interpretation Comments Angle (test code = Angle) 67.7 degrees 53.0-72.0 [facility] WwwlpykSZOGETFFBW5364-77-84 11:32:00 Test Item Value Reference Range Interpretation Comments Max Amp (test code = Max Amp) 62.5 mm 50.0-70.0 [facility] AbfufnhSMWYXIPJMB1294-21-62 11:32:008.3[facility] HermannHEMATOLOGY 2019-02-16 11:32:000.0[facility] PblcdglWSZXOHGCGY8523-15-46 11:32:00 Test Item Value Reference Range Interpretation Comments Coag Index (test code 2.0 1 See_Comment [Auto mated message] The = Coag Index) system which g enerated this result transmit guillaume reference range : <=3.0. The reference range was not used to interpr et this result as jd l/abnormal. [facility] KfavnsyJPQGBLIWRO2214-34-48 11:32:00See Note (02/16/19 6:32 AM)[facility] HermannCARDIAC XYZHFBP2862-61-41 15:18:000.06[facility] HermannDRUG SCREEN 2019-02-15 14:46:00Negative *NA*(02/15/19 9:46 [...] Spec 1.047 1 Grav) [facility]annURINE AND JJNGS6831-19-61 14:46:00 Test Item Value Reference Range Interpretation Comments UA pH (test code = UA pH) 5.0 1 5.0-8.0 [facility]annURINE AND DMCUU4503-88-34 14:46:00Negative *NA*(02/15/19 9:46 AM)[facility]UR[facility] AND EVGJK1059-82-37 14:46:00Moderate *ABN*(02/15/19 9:46 AM)[facility]UR[facility] AND YVKDS1316-10-25 14:46:00<1.0[facility]annURINE AND GKXZM5674-95-32 14:46:00Negative (02/15/19 9:46 AM)[facility]annUR[facility] AND DUFNH0446-54-59 14:46:00Moderate *ABN*(02/15/19 9:46 AM) [facility]UR[facility] AND SVKUA9893-20-28 14:46:0057[facility]annURINE AND LEACI9191-45-88 14:46:0040[facility]annURINE AND LXYVN4085-39-71 14:46:005 [facility]annBLOOD BANK RNXYVYF1804-40-91 12:47:00Product available (02/15/19 7:47 AM)[facility] HermannCARDIAC UASFJFU8405-06-31 11:13:0015.5[facility] Master CARDIAC WWVXXJP5131-49-32 11:13:00 Test Item Value Reference Range Interpretation Comments CK MB Index (test 0.9 1 See_Comment [Automate d message] The code = CK MB Index) system w [employer] generated this result transmit guillaume reference range : <=2.5. The reference range was not used to interpr et this result as jd l/abnormal. [facility]annCARDIAC ZJAJVYQ2027-73-26 11:13:696938Mtoonlgg HermannCARDIAC MKFDNPZ8480-92-30 11:13:000.07[facility] HermannBACTERIAL - ODRRNOST8428-59-65 03:45:00Negative (02/14/19 10:45 PM)[facility] HermannCARDIAC DWEWVBF7701-65-82 03:45:372149Rzuibuvp HermannCARDIAC SVXLDHS5166-20-27 03:45:0019.5[facility] HermannCARDIAC NPABGSO5089-25-11 03:45:00 Test Item Value Reference Range Interpretation Comments CK MB Index (test 1.1 1 See_Comment [Automate d message] The code = CK MB Index) system w [employer] generated this result transmit guillaume reference range : <=2.5. The reference range was not used to interpr et this result as jd l/abnormal. [facility]annCHEM KPDSX5361-45-31 03:45:001.8[facility] HermannCHEM PANEL 2019-02-15 03:45:005.3[facility] HermannCHEM UTACW3764-43-32 03:45:003.0[facility] HermannCHEM IMHIV2257-97-26 03:45:0025[facility] HermannCHEM SOMUV9026-81-73 03:45:0054[facility] HermannCHEM NTNTF0436-53-13 03:45:0055[facility] HermannCHEM OVVIM2217-43-51 03:45:001.1[facility] HermannCHEM TZSUN0601-97-09 03:45:00 Test Item Value Reference Range Interpretation Comments B/C Ratio (test code = B/C Ratio) 18 1 6-25 [facility]annCHEM ZFPMR7881-63-00 03:45:002.3[facility] HermannCHEM PANEL 2019-02-15 03:45:00 Test Item Value Reference Range Interpretation Comments A/G Ratio (test code = A/G Ratio) 1.3 1 0.7-1.6 [facility] GreenvilleTwfffuaQOPXLMCZYT2606-36-48 03:45:00 Test Item Value Reference Range Interpretation Comments R-time (test code = R-time) 4.1 min 5.0-10.0 [facility] CenterErbdidqICDYPWBMOP6933-25-74 03:45:00 Test Item Value Reference Range Interpretation Comments K-time (test code = K-time) 2.2 min 1.0-3.0 [facility] GreenvilleEzhskbfZVQICPVSKT0904-13-24 03:45:00 Test Item Value Reference Range Interpretation Comments Angle (test code = Angle) 61.4 degrees 53.0-72.0 [facility] GreenvilleXsfayfyOSUHWPZRMS0622-18-97 03:45:00 Test Item Value Reference Range Interpretation Comments Max Amp (test code = Max Amp) 54.2 mm 50.0-70.0 [facility] GreenvilleDbxmcgfMFDKNOQFXG3042-88-34 03:45:005.9[facility] 2019-02-15 03:45:000.0[facility] GreenvilleQggzjhxJGVQZGOQRX9233-82-54 03:45:00 Test Item Value Reference Range Interpretation Comments Coag Index (test code 0.0 1 See_Comment [Auto mated message] The = Coag Index) system which g enerated this result transmit guillaume reference range : <=3.0. The reference range was not used to interpr et this result as jd l/abnormal. [facility] GreenvilleCivcuxlZQHZJTIGNO8044-51-75 03:45:00See Note (02/14/19 10:45 PM) [facility] SJNLQHC3716-15-29 22:15:00Negative (02/14/19 5:15 PM) [facility]CHE[facility] CGQZG9414-35-06 22:15:001.5[facility] 22:15:00 Test Item Value Reference Range Interpretation Comments ACT (TEG) Rapid (test code = ACT (TEG) 136 s 86-118 Rapid) [facility] GreenvilleLhgefukQMAJBNTKVG0127-58-38 22:15:00 Test Item Value Reference Range Interpretation Comments Split Point Rapid (test code = Split 0.8 min Point Rapid) [facility] GreenvilleUpxvzaxYOJVPMNQUL9577-02-53 22:15:00 Test Item Value Reference Range Interpretation Comments R-time Rapid (test code = R-time 0.9 min 0.4-0.7 Rapid) [facility] CenterQobbvvyRYSELSAQAL8390-67-49 22:15:00 Test Item Value Reference Range Interpretation Comments K-time Rapid (test code = K-time 2.2 min 0.6-2.3 Rapid) [facility] GreenvilleZdlvwazVIKWNGJTNI2033-87-71 22:15:00 Test Item Value Reference Range Interpretation Comments Angle Rapid (test code = Angle 68 degrees 64-80 Rapid) [facility] GreenvilleIxgvjygNIUVVOTBIF1687-97-48 22:15:00 Test Item Value Reference Range Interpretation Comments Max Amplitude Rapid (test code = Max 57 mm 52-71 Amplitude Rapid) [facility] GreenvilleAeumqmqELTXAWVGQG5755-48-70 22:15:006.6[facility] HermannHEMATOLOGY 2019-02-14 22:15:000.0[facility] DnyuvpyWWJIQQVLDE7063-70-93 22:15:00<3[facility] JyeqxsxYNDLVEQBFS4508-76-15 22:15:00<0.003[facility] Master
--- NOTE | 2020-09-12 19:03 | R.HP ---
HISTORY AND PHYSICAL FACILITY: [facility] ENCOUNTER DATE AND TIME: 09/12/2020 18:43 (CDT) MR#: [id number] NAME SONIA MONTANA ADDRESS: [address] [place] [address] CITY: [place]IP [id number] PHONE: DATE OF : 1930 AGE: 89 SSN# [id number] GENDER: Male MARITAL STATUS PRE-HOSPITAL LIVING SETTING 01 - Home (private home/apt. board/care, assisted living, senior care, transitional living) PRE-HOSPITAL LIVING WITH Family/Relatives ENCOUNTER PHYSICIAN: Dr. Bimal Carpio M.D. REFERRING DOCTOR: KOKO GARCIA MD DATE OF ADMISSION: 09/12/2020 18:44 (CDT) REFERRING FACILITY [facility] HOME TYPE AND DETAILS: Type of home: single family house # of levels in the residence: 1 # of steps within the residence: 0 # of steps to enter the residence: 0 ONSET DATE: 09/12/2020 PRIMARY DIAGNOSIS-RELATED SURGERIES: N/A HISTORY OF PRESENT ILLNESS (HPI): Pt. is a 89 yo Right-handed male. On 09/12/2020 Pt. presented to [facility] with sudden onset of right-side weakness. On 09/12/2020 he was admitted to [facility] with diagnosis Ischemic stroke in left periv entricular and basal ganglia region, right F/A/L weakness. His impairment category is Stroke 01 - Right Body (Left Brain) (01.2). Pre-morbidly, Pt. was independent/mod-I in Locomotion, Safety Awareness, and Self-Care; and he had go od Sphincter Control, Transfers Control, Social Cognition, Balance, and Endurance. Currently, he has deficits of Locomotion, Safety Awareness, Balance, Transfers Control, Sphincter Con trol, Self-Care, and Communication. Pt. is now referred to [facility] for acute in-patient rehabilitation in order to maximize patient's functional independence in activities of daily living, strength, ROM, and mobi lity. Patient has realistic goal of being discharged at assistance level 7-Ind to reside at Home with Fami ly/Relatives. MEDICATION ALLERGIES: MEPERIDINE HCI - ADVERSE REACTION ENVIRONMENTAL ALLERGIES: - Substance Allergies None Known - Other Allergies None Known PAST MEDICAL HISTORY: TBI HYPOTHYROIDISM CHRONIC CHF SEIZURE DISORDER GERD SOCIAL HISTORY: - Home Living Family/Relatives REVIEW OF SYSTEMS: - Gen No Chills No Fatigue No Fever - Eyes No Double Vision No itchiness - ENMT Difficulty Swallowing - CVS No Chest Discomfort No Chest Pain No Fatigue No Weight Gain - Resp No Cough No Shortness of Breath - GI Continent No Abdominal Pain No Constipation No Diarrhea - Continent No Kidney Pain No Painful Urination No Urinary Urgency - MSK No Joint Pain Muscle Cramps Stiffness - Skin No Itching No Rash No Suspicious Lesions - Neuro Coordination Difficulty Difficulty with Concentration Memory Loss No Seizures No Weakness - Psych No Anxiety No Depression No HIV Exposure No Persistent Infections No Seasonal Allergies - Endo No Cold/Heat Intolerance No Excessive Hunger No Excessive Thirst No Excessive Urination PHYSICAL EXAM - Gen Alert and awake Lying in bed No apparent distress Oriented to: person, time, and place - Skin No breakdown Atraumatic - Eyes Poor vision bilaterally - ENMT No abnormalities - Neck No abnormalities - CVS RRR - Chest No abnormalities - Abd + bowel sounds - GI Soft Deferred - No abnormalities - Ext Mild edema in both lower extremities. - MSK 4+/5 weakness in right upper and lower extremities - Neuro 4/5 strength in the right upper and lower extremity mild right sided incoordination and gait ataxia. - Psych No abnormalities VITAL SIGNS Temperature: 97.6 F SBP/DBP: 175/98 Pulse: 64 Resp: 16 NURSING: - Shower allowing shower - Bladder care per protocol - Skin care per protocol PRECAUTIONS: - Weight Bearing Precaution WBAT right LE ACTIVITIES OOB only with supervision QI SCORES: - Self-Care A. Eating 03-Partial/moderate assistance B. Oral hygiene 03-Partial/moderate assistance C. Toileting hygiene E. Shower/bathe self 02-Substantial/maximal assistance F. Upper body dressing 02-Substantial/maximal assistance G. Lower body dressing 02-Substantial/maximal assistance H. Putting on/taking off footwear 88-Not attempted due to medical condition or safety concerns - Mobility A. Roll left and right 03-Partial/moderate assistance B. Sit to lying 03-Partial/moderate assistance C. Lying to sitting on side of bed 03-Partial/moderate assistance D. Sit to stand 03-Partial/moderate assistance E. Chair/[id number] transfer 03-Partial/moderate assistance F. Toilet transfer G. Car transfer 88-Not attempted due to medical condition or safety concerns I. Walk 10 feet 03-Partial/moderate assistance J. Walk 50 feet with two turns 88-Not attempted due to medical condition or safety concerns K. Walk 150 feet 88-Not attempted due to medical condition or safety concerns L. Walking 10 feet on uneven surfaces 88-Not attempted due to medical condition or safety concerns M. 1 step (curb) 88-Not attempted due to medical condition or safety concerns N. 4 steps 88-Not attempted due to medical condition or safety concerns O. 12 steps 88-Not attempted due to medical condition or safety concerns P. Picking up object 88-Not attempted due to medical condition or safety concerns R. Wheel 50 feet with two turns 88-Not attempted due to medical condition or safety concerns S. Wheel 150 feet 88-Not attempted due to medical condition or safety concerns - Bladder and Bowel Bladder continence Bowel continence - Endurance Fair - Balance Fair - Safety Awareness Fair CURRENT FUNC. DEFICITS: Self-Care, Mobility, Endurance, Balance, and Safety Awareness MEDICATIONS: - Other See attached MAR (Medication Administration Record) ASSESSMENT: Pt. is a 89 yo Right-handed male.On 09/12/2020 Pt. presented to [facility] with sudden o nset of right-side weakness.On 09/12/2020 he was admitted to [facility] with diagnosis I schemic stroke in left periventricular and basal ganglia region, right F/A/L weakness.His impairment category is Stroke 01 - Right Body (Left Brain) (01.2).Pre-morbidly, Pt. was independent/mod-I in Lo comotion, Safety Awareness, and Self-Care; and he had good Sphincter Control, Transfers Control, Soci al Cognition, Balance, and Endurance.Currently, he has deficits of Locomotion, Safety Awareness, Song nce, Transfers Control, Sphincter Control, Self-Care, and Communication.Pt. is now referred to [facility] for acute in-patient rehabilitation in order to maximize patient's functi onal independence in activities of daily living, strength, ROM, and mobility.- Rehab Goal Patient has realistic goal of being discharged at assistance level 7-Ind to reside at Home with Fami ly/Relatives. for Dementia, TBI, Stroke, or others - Physical Therapy Weakness - to improve, our physical therapists will perform initial evaluation of pt's status upon a dmission and devise an individualized program for Aquatic Therapy, Neuromuscular Reeducation, and Str engthening Poor balance - to improve, our physical therapists will perform initial evaluation of pt's status up on admission and devise an individualized program for Balance Training Inability to transfer - to improve, our physical therapists will perform initial evaluation of pt's status upon admission and devise an individualized program for Bed mobility Need in caregiver upon discharge - to improve, our physical therapists will perform initial evaluati on of pt's status upon admission and devise an individualized program for Caregiver Training Gait dysfunction - to improve, our physical therapists will perform initial evaluation of pt's statu s upon admission and devise an individualized program for Gait Training, and Wheel Chair mobility Need for home safety evaluation - to improve, our physical therapists will perform initial evaluatio n of pt's status upon admission and devise an individualized program for Home Evaluation New precaution - to improve, our physical therapists will perform initial evaluation of pt's status upon admission and devise an individualized program for Patient precaution education Edema - to improve, our physical therapists will perform initial evaluation of pt's status upon admi ssion and devise an individualized program for Elevation Training, and Lymphedema Therapy - Occupational Therapy Weakness - to improve, our occupation therapists will perform initial evaluation of pt's status upon admission and devise an individualized program for Aquatic Therapy, Balance, Endurance, UE ROM, and UE strengthening ADL deficits - to improve, our occupation therapists will perform initial evaluation of pt's status upon admission and devise an individualized program for Bathing, Bed mobility, Community Reintegratio n, Cooking, Dressing, Eating, Fine Motor Skills, Grooming, Homemaking, Kitchen Mobility, Laundry, Pat ient Education, Safety Awareness, Splinting - Positioning, Transfers(Toilet, Tub, Shower), and Wheel Chair Management Need for resident care coordinator - to improve, our occupation therapists will perform initial evaluation of pt's status upon admission and devise an individualized program for Caregiver Training - Dressing Status: mod for ADL deficits - Grooming Status: min for ADL deficits - Toilet Transfer Status: mod for ADL deficits - Tub Transfer Status: mod - Shower Transfer Status: min - Wheel Chair to Bed Transfer Status: mod for ADL deficits MEDICAL PLAN: - Diet Type Start Regular - Diet - Liquid Texture Start Regular - Tube Feed Start N/A - Bladder care per protocol - Weight Bearing Precaution WBAT right LE - Skin care per protocol - Other See attached MAR (Medication Administration Record) - Diet - Solid Texture Regular - Shower shower DISCHARGE PLAN: - Estimated Length of Stay (days) 17. - Consensus on plan Discharge plan has been discussed with primary caregiver. Patient/Family is in agreement with the corinne n. Primary caregiver is in agreement with the plan. - Patient/Family Goals Return home independently. - Planned Living Setting Upon Discharge Home, to live with Family/Relatives. Transitional Living. SIGNATURE PANEL: (CDT)
--- NOTE | 2020-09-12 19:03 | PAPE ---
POST ADMISSION PHYSICIAN EVALUATION PATIENT: [facility] MR# [id number] REFERRING DOCTOR KOKO GARCIA MD EVALUATION DATE AND TIME 09/12/2020 18:56 (CDT) NAME SONIA MONTANA DATE OF 1930 AGE 89 PHONE N# [id number] GENDER male EVALUATING PHYSICIAN Dr. Bimal Carpio M.D. ADMISSION DIAGNOSIS: Ischemic stroke in left periventricular and basal ganglia region, right F/A/L weakness ONSET DATE 09/12/2020 POST-ADMISSION FUNCTIONAL/MEDICAL STATUS: - Bladder Same accident frequency: 7-Ind - No accidents in the past 7 days - Bowel Same accident frequency: 7-Ind - No accidents in the past 7 days - Walking Same score based on distance walked: 0(N/A) Same score based on distance walked: 2(50-149ft) - Wheelchair Same score based on distance traveled: 0(N/A) STATUS CHANGE EVALUATION: No change in Functional or Medical Status is identified compared with Pre-Admission screening. PATIENT NEEDS CLOSE MEDICAL SUPERVISION BY A REHABILITATION PHYSICIAN FOR: Coordination of Treatment Team PATIENT REQUIRES 24X7 REHAB NURSING FOR MEDICAL AND FUNCTIONAL MGT. OF THE FOLLOWING DEFICITS: Disease Management Medication Management Patient/Family Education Providing Safe Environment PATIENT REQUIRES INTENSIVE, COORDINATED INTERDISCIPLINARY APPROACH TO REHAB: Arranging Home Equipment/Services Discharge Planning Family Intervention/Training Income Tax Investigator/Case Management LIST OF IDENTIFIED AND POTENTIAL PROBLEMS: Alteration in leisure activities Bladder, Incontinence Bowel, Incontinence Infection, Actual or Potential Mobility Impaired Pain, Alteration in Comfort Self Care Deficit Skin Integrity, Actual or Potential Urinary Tract Infection (UTI), Actual or Potential PATIENT COULD BE AT RISK FOR COMPLICATIONS FROM ADVERSE MEDICAL CONDITIONS DUE TO HIS/HER COMORBIDITI ES AND THE RIGORS OF THE INTENSIVE REHABILLITATION PROGRAM. METHODS OR INTERVENTIONS TO AVOID COMPLIC ATIONS INCLUDE: - Bleeding Stroke patients assessed for lethargy or change in status. - Infection Clinical staff to assess and manage the signs and symptoms of infection including fever, redness, war mth, etc. - Urinary Tract Infection - Aspiration Clinical staff will assess and manage coughing, drooling, congestion. - Falls Patient will be evaluated for Fall Precautions and will be placed on Fall Precautions as indicated pe r protocol. - Skin Breakdown Nursing will assess skin daily using assessment tool and will place on Skin Breakdown Precautions as indicated per protocol. - Pain Clinical staff may employ non-medication methods such as massage, distraction, decrease stimulus, etc . as needed. Clinical staff will assess patient's pain level every shift per protocol to assess and e nsure pain management effectiveness. Medications will be given and the pain level re-assessed. PRELIMINARY PLAN OF CARE: - Physical Therapy Patient needs Physical Therapy for a daily minimum of 1.5 hours at least 5 out of 7 days, to improve: Mobility, Strengthening, Transfers, Stretching, ROM, Endurance, Ability to manage stairs, Gait, and Balance. - Speech Therapy Patient needs Speech Therapy for a daily minimum of 0.5 hours at least 5 out of 7 days, to improve: S wallowing, Cognition, Language Skills, and Compensatory Strategies. - Rehabilitation Nursing Patient requires 24x7 Rehabilitation Nursing for: Pain Issues, Identifying and preventing risk factor s, Monitoring and reporting current medical conditions, Assisting with ambulation and transfer, Monica ting with all ADL-s, Teaching patients about disease process and medications, Family teaching, Provid ing safe environment, Bowel and Bladder Issues, Skin Integrity, and Medication Management. Patient needs Income Tax Investigator and/or Case Management for: Discharge Planning, Arranging Home Equipmen t or Services, and Family Interventions. - Dietary and Nutrition Services Patient needs Dietary and Nutrition Services for: Adequate Nutrition, Nutritional Supplements, and Nu tritional Education. - Occupational Therapy Patient needs Occupational Therapy for a daily minimum of 1.5 hours at least 5 out of 7 days, to impr ove Activities of Daily Living, including: Eating, Grooming, Bathing, Dressing, Toileting, Toilet Tra nsfers, Community Reintegration, Higher functional activities, Adaptive Equipment, Splinting, Househo ld Tasks, and Other activities as determined. QI SCORES: - Self-Care A. Eating 03-Partial/moderate assistance B. Oral hygiene 03-Partial/moderate assistance C. Toileting hygiene E. Shower/bathe self 02-Substantial/maximal assistance F. Upper body dressing 02-Substantial/maximal assistance G. Lower body dressing 02-Substantial/maximal assistance H. Putting on/taking off footwear 88-Not attempted due to medical condition or safety concerns - Mobility A. Roll left and right 03-Partial/moderate assistance B. Sit to lying 03-Partial/moderate assistance C. Lying to sitting on side of bed 03-Partial/moderate assistance D. Sit to stand 03-Partial/moderate assistance E. Chair/jvr-bn-nwvmq transfer 03-Partial/moderate assistance F. Toilet transfer G. Car transfer 88-Not attempted due to medical condition or safety concerns I. Walk 10 feet 03-Partial/moderate assistance J. Walk 50 feet with two turns 88-Not attempted due to medical condition or safety concerns K. Walk 150 feet 88-Not attempted due to medical condition or safety concerns L. Walking 10 feet on uneven surfaces 88-Not attempted due to medical condition or safety concerns M. 1 step (curb) 88-Not attempted due to medical condition or safety concerns N. 4 steps 88-Not attempted due to medical condition or safety concerns O. 12 steps 88-Not attempted due to medical condition or safety concerns P. Picking up object 88-Not attempted due to medical condition or safety concerns R. Wheel 50 feet with two turns 88-Not attempted due to medical condition or safety concerns S. Wheel 150 feet 88-Not attempted due to medical condition or safety concerns - Bladder and Bowel Bladder continence Bowel continence - Endurance Fair - Balance Fair - Safety Awareness Fair POTENTIAL FUNCTIONAL GOALS FOR PATIENT TO ACHIEVE BY DISCHARGE: - Safety Precaution Patient will remain free from falls or injury at time of discharge. - Bed Mobility Patient will perform bed mobility at 4-Peace level of assistance. - Transfers Patient will complete transfers from bed to chair at 4-Peace level of assistance. - Mobility Patient will ambulate 150 ft with 4-Peace level of assistance with RW. PATIENT REHAB POTENTIAL SamSaurabh MONTANA is able and expected to receive 3 hours of individualized therapy daily on at least 5 of inocente ry 7 days Onur MONTANA's prognosis for significant practical improvement within a reasonable period of time appears Good Expected level of measurable improvement will be of a practical value to Onur MONTANA's functional capaci ty or adaptations to impairments Has a viable Discharge Plan Medically appropriate; condition is sufficiently stable to participate in intensive rehab program DISCHARGE PLAN: - Estimated Length of Stay (days) 17. - Consensus on plan Discharge plan has been discussed with primary caregiver. Patient/Family is in agreement with the corinne n. Primary caregiver is in agreement with the plan. - Patient/Family Goals Return home independently. - Planned Living Setting Upon Discharge Home, to live with Family/Relatives. Transitional Living. CONCLUSION ON REHABILITATION NECESSITY: I have evaluated patient's pre-admission functional status and, comparing it to the patient's post-ad mission functional status now, I conclude that the pre-admission assessment was accurate. Patient's c ondition on admission supports the medical necessity of admission to IR[facility]. It is safe to proceed with patient's therapy program. SIGNATURE PANEL: (CDT)
[2020-09-12] MEDS: ATORVASTATIN 40 MG TAB PO SCH (23:17)
[2020-09-12] MEDS: OXcarbazepine 150 MG TAB PO SCH (23:45)
[2020-09-13 02:56] LABS: Urine Appearance CLEAR (Clear); Urine Bilirubin NEGATIVE (Negative); Urine Blood 2+ (Negative); Urine Color YELLOW (Yellow); Urine Glucose NEGATIVE (Negative); Urine Protein NEGATIVE (Negative); Urine Specific Gravity 1.015 (1.005-1.030); Urine Urobilinogen 0.2 mg/dL (0.2-1.0)
[2020-09-13 03:50] LABS: Urine Microscopic Reflex ORDER UMIC
[2020-09-13 03:52] LABS: Urine Bacteria <20 /HPF (NONE SEEN)
[2020-09-13 06:43] LABS: Absolute Lymphocytes (CBC) 1.4 K/uL (0.7-4.9); Basophils % 0.7 % (0-1.3); Lymphocytes % 36.4 % (15.3-44.8); MPV 8.5 fL (7.6-11.3); RBC Red Blood Cell Count 4.63 M/uL (4.33-5.43)
[2020-09-13] MEDS: LEVOTHYROXINE SOD 0.075 MG TAB PO SCH (06:45)
[2020-09-13] MEDS: PANTOPRAZOLE 40MG TABLET PO SCH (06:45)
[2020-09-13 07:32] LABS: Albumin 3.1 g/dL (3.4-5.0); Magnesium 2.2 mg/dL (1.8-2.4); Potassium 4.1 mmol/L (3.5-5.1); Prealbumin 18.4 mg/dL (20-40)
[2020-09-13] MEDS: FOLIC ACID 1 MG TABLET PO SCH (09:32)
[2020-09-13] MEDS: SODIUM CHLORIDE 1 GM TAB PO SCH (09:32)
[2020-09-13] MEDS: ASPIRIN 81 MG CHEWABLE TABLET PO SCH (09:32)
[2020-09-13] MEDS: levoFLOXacin 250 MG TAB PO SCH (09:33)
[2020-09-13] MEDS: FUROSEMIDE 20 MG TABLET PO SCH (09:33)
[2020-09-13] MEDS: OXcarbazepine 150 MG TAB PO SCH ×2 (10:29→19:07)
[2020-09-13] MEDS: ATORVASTATIN 40 MG TAB PO SCH (19:07)
[2020-09-14] MEDS: LEVOTHYROXINE SOD 0.075 MG TAB PO SCH (06:29)
[2020-09-14] MEDS: PANTOPRAZOLE 40MG TABLET PO SCH (06:29)
[2020-09-14] MEDS: FUROSEMIDE 20 MG TABLET PO SCH (07:37)
[2020-09-14] MEDS: ASPIRIN 81 MG CHEWABLE TABLET PO SCH (07:37)
[2020-09-14] MEDS: OXcarbazepine 150 MG TAB PO SCH ×2 (07:38→19:06)
[2020-09-14] MEDS: SODIUM CHLORIDE 1 GM TAB PO SCH (07:38)
[2020-09-14] MEDS: FOLIC ACID 1 MG TABLET PO SCH (07:38)
[2020-09-14] MEDS: levoFLOXacin 250 MG TAB PO SCH (07:38)
[2020-09-14] MEDS: ATORVASTATIN 40 MG TAB PO SCH (19:06)
[2020-09-15] MEDS: LEVOTHYROXINE SOD 0.075 MG TAB PO SCH (06:59)
[2020-09-15] MEDS: PANTOPRAZOLE 40MG TABLET PO SCH (06:59)
[2020-09-15] MEDS: FUROSEMIDE 20 MG TABLET PO SCH (08:34)
[2020-09-15] MEDS: SODIUM CHLORIDE 1 GM TAB PO SCH (08:34)
[2020-09-15] MEDS: levoFLOXacin 250 MG TAB PO SCH (08:34)
[2020-09-15] MEDS: FOLIC ACID 1 MG TABLET PO SCH (08:34)
[2020-09-15] MEDS: OXcarbazepine 150 MG TAB PO SCH ×2 (08:35→20:06)
[2020-09-15] MEDS: ASPIRIN 81 MG CHEWABLE TABLET PO SCH (08:35)
--- NOTE | 2020-09-15 15:41 | FAST ---
[employer] FORM SHIFT START DATE/TIME: 09/15/2020 07:00 (CDT) SHIFT END DATE/TIME: 09/15/2020 19:00 (CDT) NAME SONIA MONTANA DATE OF : 1930 DATE OF ADMISSION: 09/12/2020 18:44 (CDT) PHONE: AGE: 89 N# [id number] GENDER: Male ENCOUNTER PHYSICIAN: Dr. Bimal Carpio M.D. ADMISSION DIAGNOSIS: - Stroke 01 - Right Body (Left Brain) (01.2) Ischemic stroke in left periventricular and basal ganglia region, right F/A/L weakness. EATING: EATING - STEP 1: Does the patient complete the activity by him/herself with no assistance (physical, verbal/nonverbal cueing, setup/clean-up)? No. EATING - STEP 2: Does the patient need only setup/clean-up assistance from one helper? No. EATING - STEP 3: Does the patient need only verbal/nonverbal cueing or touching/steadying/contact guard assistance fro m one helper? No. EATING - STEP 4: Does the patient need physical assistance - for example lifting or trunk support from one helper - wi th the helper providing less than half of the effort? Yes. 1. [id number] ADMISSION PERFORMANCE: Partial/moderate assistance CODE: 03 ORAL HYGIENE: ORAL HYGIENE - STEP 1: Does the patient complete the activity by him/herself with no assistance (physical, verbal/nonverbal cueing, setup/clean-up)? No. ORAL HYGIENE - STEP 2: Does the patient need only setup/clean-up assistance from one helper? No. ORAL HYGIENE - STEP 3: Does the patient need only verbal/nonverbal cueing or touching/steadying/contact guard assistance fro m one helper? No. ORAL HYGIENE - STEP 4: Does the patient need physical assistance - for example lifting or trunk support from one helper - wi th the helper providing less than half of the effort? Yes. 1. [id number] ADMISSION PERFORMANCE: Partial/moderate assistance CODE: 03 TOILETING HYGIENE: TOILETING HYGIENE - STEP 1: Does the patient complete the activity by him/herself with no assistance (physical, verbal/nonverbal cueing, setup/clean-up)? No. TOILETING HYGIENE - STEP 2: Does the patient need only setup/clean-up assistance from one helper? No. TOILETING HYGIENE - STEP 3: Does the patient need only verbal/nonverbal cueing or touching/steadying/contact guard assistance fro m one helper? No. TOILETING HYGIENE - STEP 4: Does the patient need physical assistance - for example lifting or trunk support from one helper - wi th the helper providing less than half of the effort? Yes. 1. [id number] ADMISSION PERFORMANCE: Partial/moderate assistance CODE: 03 BATHING: Not assessed/no information CODE: - DRESSING - UPPER BODY: DRESSING - UPPER BODY - STEP 1: Does the patient complete the activity by him/herself with no assistance (physical, verbal/nonverbal cueing, setup/clean-up)? No. DRESSING - UPPER BODY - STEP 2: Does the patient need only setup/clean-up assistance from one helper? No. DRESSING - UPPER BODY - STEP 3: Does the patient need only verbal/nonverbal cueing or touching/steadying/contact guard assistance fro m one helper? No. DRESSING - UPPER BODY - STEP 4: Does the patient need physical assistance - for example lifting or trunk support from one helper - wi th the helper providing less than half of the effort? Yes. 1. [id number] ADMISSION PERFORMANCE: Partial/moderate assistance CODE: 03 DRESSING - LOWER BODY: DRESSING - LOWER BODY - STEP 1: Does the patient complete the activity by him/herself with no assistance (physical, verbal/nonverbal cueing, setup/clean-up)? No. DRESSING - LOWER BODY - STEP 2: Does the patient need only setup/clean-up assistance from one helper? No. DRESSING - LOWER BODY - STEP 3: Does the patient need only verbal/nonverbal cueing or touching/steadying/contact guard assistance fro m one helper? No. DRESSING - LOWER BODY - STEP 4: Does the patient need physical assistance - for example lifting or trunk support from one helper - wi th the helper providing less than half of the effort? Yes. 1. [id number] ADMISSION PERFORMANCE: Partial/moderate assistance CODE: 03 PUTTING ON/TAKING OFF FOOTWEAR: FOOTWEAR - STEP 1: Does the patient complete the activity by him/herself with no assistance (physical, verbal/nonverbal cueing, setup/clean-up)? No. FOOTWEAR - STEP 2: Does the patient need only setup/clean-up assistance from one helper? No. FOOTWEAR - STEP 3: Does the patient need only verbal/nonverbal cueing or touching/steadying/contact guard assistance fro m one helper? No. FOOTWEAR - STEP 4: Does the patient need physical assistance - for example lifting or trunk support from one helper - wi th the helper providing less than half of the effort? Yes. 1. [id number] ADMISSION PERFORMANCE: Partial/moderate assistance CODE: 03 ROLL LEFT AND RIGHT: ROLL LEFT AND RIGHT - STEP 1: Does the patient complete the activity by him/herself with no assistance (physical, verbal/nonverbal cueing, setup/clean-up)? No. ROLL LEFT AND RIGHT - STEP 2: Does the patient need only setup/clean-up assistance from one helper? No. ROLL LEFT AND RIGHT - STEP 3: Does the patient need only verbal/nonverbal cueing or touching/steadying/contact guard assistance fro m one helper? Yes. 1. [id number] ADMISSION PERFORMANCE: Supervision or touching assistance CODE: 04 SIT TO LYING: SIT TO LYING - STEP 1: Does the patient complete the activity by him/herself with no assistance (physical, verbal/nonverbal cueing, setup/clean-up)? No. SIT TO LYING - STEP 2: Does the patient need only setup/clean-up assistance from one helper? No. SIT TO LYING - STEP 3: Does the patient need only verbal/nonverbal cueing or touching/steadying/contact guard assistance fro m one helper? Yes. 1. [id number] ADMISSION PERFORMANCE: Supervision or touching assistance CODE: 04 LYING TO SITTING: LYING TO SITTING ON SIDE OF BED - STEP 1: Does the patient complete the activity by him/herself with no assistance (physical, verbal/nonverbal cueing, setup/clean-up)? No. LYING TO SITTING ON SIDE OF BED - STEP 2: Does the patient need only setup/clean-up assistance from one helper? No. LYING TO SITTING ON SIDE OF BED - STEP 3: Does the patient need only verbal/nonverbal cueing or touching/steadying/contact guard assistance fro m one helper? Yes. 1. [id number] ADMISSION PERFORMANCE: Supervision or touching assistance CODE: 04 SIT TO STAND: SIT TO STAND - STEP 1: Does the patient complete the activity by him/herself with no assistance (physical, verbal/nonverbal cueing, setup/clean-up)? No. SIT TO STAND - STEP 2: Does the patient need only setup/clean-up assistance from one helper? No. SIT TO STAND - STEP 3: Does the patient need only verbal/nonverbal cueing or touching/steadying/contact guard assistance fro m one helper? Yes. 1. [id number] ADMISSION PERFORMANCE: Supervision or touching assistance CODE: 04 TRANSFERS: BED, CHAIR: CHAIR/[id number] TRANSFER - STEP 1: Does the patient complete the activity by him/herself with no assistance (physical, verbal/nonverbal cueing, setup/clean-up)? No. CHAIR/[id number] TRANSFER - STEP 2: Does the patient need only setup/clean-up assistance from one helper? No. CHAIR/[id number] TRANSFER - STEP 3: Does the patient need only verbal/nonverbal cueing or touching/steadying/contact guard assistance fro m one helper? Yes. 1. [id number] ADMISSION PERFORMANCE: Supervision or touching assistance CODE: 04 TRANSFER TOILET: TOILET TRANSFER - STEP 1: Does the patient complete the activity by him/herself with no assistance (physical, verbal/nonverbal cueing, setup/clean-up)? No. TOILET TRANSFER - STEP 2: Does the patient need only setup/clean-up assistance from one helper? No. TOILET TRANSFER - STEP 3: Does the patient need only verbal/nonverbal cueing or touching/steadying/contact guard assistance fro m one helper? Yes. 1. [id number] ADMISSION PERFORMANCE: Supervision or touching assistance CODE: 04 TRANSFERS: CAR: Not assessed/no information CODE: - WALK 10 FEET: WALK 10 FEET - STEP 1: Does the patient complete the activity by him/herself with no assistance (physical, verbal/nonverbal cueing, setup/clean-up)? No. WALK 10 FEET - STEP 2: Does the patient need only setup/clean-up assistance from one helper? No. WALK 10 FEET - STEP 3: Does the patient need only verbal/nonverbal cueing or touching/steadying/contact guard assistance fro m one helper? Yes. 1. [id number] ADMISSION PERFORMANCE: Supervision or touching assistance CODE: 04 WALK 50 FEET: WALK 50 FEET - STEP 1: Does the patient complete the activity by him/herself with no assistance (physical, verbal/nonverbal cueing, setup/clean-up)? No. WALK 50 FEET - STEP 2: Does the patient need only setup/clean-up assistance from one helper? No. WALK 50 FEET - STEP 3: Does the patient need only verbal/nonverbal cueing or touching/steadying/contact guard assistance fro m one helper? Yes. 1. [id number] ADMISSION PERFORMANCE: Supervision or touching assistance CODE: 04 WALK 150 FEET: WALK 150 FEET - STEP 1: Does the patient complete the activity by him/herself with no assistance (physical, verbal/nonverbal cueing, setup/clean-up)? No. WALK 150 FEET - STEP 2: Does the patient need only setup/clean-up assistance from one helper? No. WALK 150 FEET - STEP 3: Does the patient need only verbal/nonverbal cueing or touching/steadying/contact guard assistance fro m one helper? Yes. 1. [id number] ADMISSION PERFORMANCE: Supervision or touching assistance CODE: 04 WALK 10 FEET UNEVEN: Not assessed/no information CODE: - 1 STEP (CURB): Not assessed/no information CODE: - PICKING UP OBJECT: Not assessed/no information CODE: - DOES THE PATIENT USE A WHEELCHAIR/SCOOTER? Q1. DOES THE PATIENT USE A WHEELCHAIR/SCOOTER?: Yes CODE: 1 WHEEL 50 FEET WITH TWO TURNS: WHEEL 50 FEET WITH TWO TURNS - STEP 1: Does the patient complete the activity by him/herself with no assistance (physical, verbal/nonverbal cueing, setup/clean-up)? No. WHEEL 50 FEET WITH TWO TURNS - STEP 2: Does the patient need only setup/clean-up assistance from one helper? No. WHEEL 50 FEET WITH TWO TURNS - STEP 3: Does the patient need only verbal/nonverbal cueing or touching/steadying/contact guard assistance fro m one helper? Yes. 1. [id number] ADMISSION PERFORMANCE: Supervision or touching assistance CODE: 04 INDICATE THE TYPE OF WHEELCHAIR/SCOOTER USED: RR1. INDICATE THE TYPE OF WHEELCHAIR/SCOOTER USED.: Manual CODE: 1 WHEEL 150 FEET: WHEEL 150 FEET - STEP 1: Does the patient complete the activity by him/herself with no assistance (physical, verbal/nonverbal cueing, setup/clean-up)? No. WHEEL 150 FEET - STEP 2: Does the patient need only setup/clean-up assistance from one helper? No. WHEEL 150 FEET - STEP 3: Does the patient need only verbal/nonverbal cueing or touching/steadying/contact guard assistance fro m one helper? Yes. 1. [id number] ADMISSION PERFORMANCE: Supervision or touching assistance CODE: 04 INDICATE THE TYPE OF WHEELCHAIR/SCOOTER USED: SS1. INDICATE THE TYPE OF WHEELCHAIR/SCOOTER USED.: Manual CODE: 1 BLADDER AND BOWEL: H350. BLADDER CONTINENCE (3-DAY ASSESSMENT PERIOD): Incontinent daily (at least once a day) CODE: 3 H400. BOWEL CONTINENCE (3-DAY ASSESSMENT PERIOD): Always incontinent (no episodes of continent bowel movements) CODE: 3 SIGNATURE PANEL: The following modified sections: 1. [id number] Admission Performance, 1. [id number] Admission Performance, 1. [id number] Admission Performance, 1. [id number] Admission Performance, 1. [id number] Admission Performance, 1. [id number] Admission Performance, 1. [id number] Admission Performance, 1. DF1078k Admission Performance , 1. BK7728v Admission Performance, 1. HM1310L Admission Performance, 1. [id number] Admission Performanc e, 1. [id number] Admission Performance, 1. FX1040O Admission Performance, 1. [id number] Admission Performan ce, 1. GO5582Y Admission Performance, 1. ZQ1039G Admission Performance, 1. GR6728H Admission Performa nce, 1. [id number] Admission Performance, 1. CY6524A Admission Performance, 1. [id number] Admission Perform ance, Q1. Does the patient use a wheelchair/scooter?, 1. [id number] Admission Performance, RR1. Indicate the type of wheelchair/scooter used., 1. KB4832B Admission Performance, 1. SC7100M Admission Perform ance, Code, SS1. Indicate the type of wheelchair/scooter used., H350. Bladder Continence (3-day asses sment period), H400. Bowel Continence (3-day assessment period) were [electronically] signed by Tyrone DelarosaNAlfonso on TueSep 15 2020 15:40:15 GMT-0500 (Central Daylight Time)
[2020-09-15] MEDS: ATORVASTATIN 40 MG TAB PO SCH (20:05)
[2020-09-16] MEDS: LEVOTHYROXINE SOD 0.075 MG TAB PO SCH (06:56)
[2020-09-16] MEDS: PANTOPRAZOLE 40MG TABLET PO SCH (06:56)
[2020-09-16] MEDS: FUROSEMIDE 20 MG TABLET PO SCH ×2 (08:00→14:19)
[2020-09-16] MEDS: FOLIC ACID 1 MG TABLET PO SCH (08:58)
[2020-09-16] MEDS: ASPIRIN 81 MG CHEWABLE TABLET PO SCH (08:58)
[2020-09-16] MEDS: levoFLOXacin 250 MG TAB PO SCH (08:58)
[2020-09-16] MEDS: SODIUM CHLORIDE 1 GM TAB PO SCH (08:58)
[2020-09-16] MEDS: OXcarbazepine 150 MG TAB PO SCH ×2 (09:04→19:24)
[2020-09-16 12:59] LABS: Potassium 4.7 mmol/L (3.5-5.1)
[2020-09-16] MEDS: ATORVASTATIN 40 MG TAB PO SCH (19:24)
--- NOTE | 2020-09-16 19:51 | R.PN ---
PROGRESS NOTES ENCOUNTER DATE AND TIME: 09/16/2020 19:43 (CDT) NAME SONIA MONTANA DATE OF : 1930 DATE OF ADMISSION: 09/12/2020 18:44 (CDT) Ischemic stroke in left periventricular and basal ganglia region, right F/A/L weaknessCHIEF COMPLAINT : Stroke with right F/A/L weakness SUBJECTIVE: Pt denied any Shortness of Breath. Pt denied any depression. Ambulated 1250' with contact guard assistance using a rolling walker. WBC 3.9, Hgb 13.8, Record Searcher increased to 1.46 from 1.09 in 3 days. Prealbumin 18.4. VITAL SIGNS Temperature: 98.2 F SBP/DBP: 92 to 134/56 to 86 Pulse: 80 Resp: 16 MEDICATION ALLERGIES: MEPERIDINE HCI - ADVERSE REACTION ENVIRONMENTAL ALLERGIES: - Substance Allergies None Known - Other Allergies None Known NURSING: - Shower allowing shower - Bladder care per protocol - Skin care per protocol PRECAUTIONS: - Weight Bearing Precaution WBAT right LE ACTIVITIES OOB only with supervision THERAPIES: - Occupational Therapy Cognitive Retraining. Visual Perceptual Training. - Dietary and Nutrition Adequate Nutrition. Nutritional Education. Nutritional Supplements. - Speech Therapy Cognitive Training. Expressive Language Skills. Memory Strategies. Receptive Language Skills. Speech Intelligibility Training. PHYSICAL EXAM - Gen Alert and awake Lying in bed No apparent distress Oriented to: person, time, and place - Skin No breakdown Atraumatic - Eyes Poor vision bilaterally - ENMT No abnormalities - Neck No abnormalities - CVS RRR - Chest No abnormalities - Abd + bowel sounds - GI Soft Deferred - No abnormalities - Ext Mild edema in both lower extremities. - MSK 4+/5 weakness in right upper and lower extremities - Neuro 4/5 strength in the right upper and lower extremity mild right sided incoordination and gait ataxia. - Psych No abnormalities ASSESSMENT: Pt. is a 89 yo Right-handed male.On 09/12/2020 Pt. presented to [facility] with sudden o nset of right-side weakness.On 09/12/2020 he was admitted to [facility] with diagnosis I schemic stroke in left periventricular and basal ganglia region, right F/A/L weakness.His impairment category is Stroke 01 - Right Body (Left Brain) (01.2).Pre-morbidly, Pt. was independent/mod-I in Lo comotion, Safety Awareness, and Self-Care; and he had good Sphincter Control, Transfers Control, Soci al Cognition, Balance, and Endurance.Currently, he has deficits of Locomotion, Safety Awareness, Song nce, Transfers Control, Sphincter Control, Self-Care, and Communication.Pt. is now referred to [facility] for acute in-patient rehabilitation in order to maximize patient's functi onal independence in activities of daily living, strength, ROM, and mobility.- Rehab Goal Patient has realistic goal of being discharged at assistance level 7-Ind to reside at Home with Fami ly/Relatives. MDM/PLAN: - Physical Therapy Weakness - to improve, our physical therapists will perform initial evaluation of pt's status upon ad mission and devise an individualized program for Aquatic Therapy, Neuromuscular Reeducation, and Stre ngthening Poor balance - to improve, our physical therapists will perform initial evaluation of pt's status upo n admission and devise an individualized program for Balance Training Inability to transfer - to improve, our physical therapists will perform initial evaluation of pt's s tatus upon admission and devise an individualized program for Bed mobility Need in caregiver upon discharge - to improve, our physical therapists will perform initial evaluatio n of pt's status upon admission and devise an individualized program for Caregiver Training Gait dysfunction - to improve, our physical therapists will perform initial evaluation of pt's status upon admission and devise an individualized program for Gait Training, and Wheel Chair mobility Need for home safety evaluation - to improve, our physical therapists will perform initial evaluation of pt's status upon admission and devise an individualized program for Home Evaluation New precaution - to improve, our physical therapists will perform initial evaluation of pt's status u delfina admission and devise an individualized program for Patient precaution education Edema - to improve, our physical therapists will perform initial evaluation of pt's status upon admis jomar and devise an individualized program for Elevation Training, and Lymphedema Therapy - Occupational Therapy Weakness - to improve, our occupation therapists will perform initial evaluation of pt's status upon admission and devise an individualized program for Aquatic Therapy, Balance, Endurance, UE ROM, and U E strengthening ADL deficits - to improve, our occupation therapists will perform initial evaluation of pt's status u delfina admission and devise an individualized program for Bathing, Bed mobility, Community Reintegration , Cooking, Dressing, Eating, Fine Motor Skills, Grooming, Homemaking, Kitchen Mobility, Laundry, Lalita ent Education, Safety Awareness, Splinting - Positioning, Transfers(Toilet, Tub, Shower), and Wheel C hair Management Need for acute care occupational therapist - to improve, our occupation therapists will perform initial evaluation of pt's s tatus upon admission and devise an individualized program for Caregiver Training - Other See attached MAR (Medication Administration Record) - Diet Type Continue Regular - Diet - Liquid Texture Continue Regular - Tube Feed Continue N/A - Bladder care per protocol - Weight Bearing Precaution WBAT right LE - Skin care per protocol - Diet - Solid Texture Continue Regular - Shower allowing shower for Dementia, TBI, Stroke, or others - Dressing Status: mod for ADL deficits - Grooming Status: min for ADL deficits - Toilet Transfer Status: mod for ADL deficits - Tub Transfer Status: mod - Shower Transfer Status: min - Wheel Chair to Bed Transfer Status: mod for ADL deficits FUNCTIONAL STATUS: UPDATED AT WEEKLY TEAM CONFERENCE - Bladder Same accident frequency: 7-Ind - No accidents in the past 7 days - Bowel Same accident frequency: 7-Ind - No accidents in the past 7 days - Walking Same score based on distance walked: 0(N/A) Same score based on distance walked: 2(50-149ft) - Wheelchair Same score based on distance traveled: 0(N/A) FUNCTIONAL STATUS: - Self-Care A. Eating Ind B. Grooming sup C. Bathing Peace D. Dressing - Upper Peace E. Dressing - Lower modA F. Toileting Peace - Sphincter Control G. Bladder control Peace H. Bowel control Peace - Transfers Control I. Bed/Chair/Wheelchair Peace J. Toilet Peace K. Tub/Shower modA - Locomotion L. Walk/Wheelchair (B) Peace M. Stairs modA - Communication N. Comprehension (B) Peace O. Expression (B) Peace - Social Cognition P. Social Interaction Peace Q. Problem Solving Peace R. Memory Peace - Endurance Good - Balance Good - Safety Awareness Fair QI SCORES: - Self-Care A. Eating 03-Partial/moderate assistance B. Oral hygiene 03-Partial/moderate assistance C. Toileting hygiene E. Shower/bathe self 02-Substantial/maximal assistance F. Upper body dressing 02-Substantial/maximal assistance G. Lower body dressing 02-Substantial/maximal assistance H. Putting on/taking off footwear 88-Not attempted due to medical condition or safety concerns - Mobility A. Roll left and right 03-Partial/moderate assistance B. Sit to lying 03-Partial/moderate assistance C. Lying to sitting on side of bed 03-Partial/moderate assistance D. Sit to stand 03-Partial/moderate assistance E. Chair/ihf-kk-ntdin transfer 03-Partial/moderate assistance F. Toilet transfer G. Car transfer 88-Not attempted due to medical condition or safety concerns I. Walk 10 feet 03-Partial/moderate assistance J. Walk 50 feet with two turns 88-Not attempted due to medical condition or safety concerns K. Walk 150 feet 88-Not attempted due to medical condition or safety concerns L. Walking 10 feet on uneven surfaces 88-Not attempted due to medical condition or safety concerns M. 1 step (curb) 88-Not attempted due to medical condition or safety concerns N. 4 steps 88-Not attempted due to medical condition or safety concerns O. 12 steps 88-Not attempted due to medical condition or safety concerns P. Picking up object 88-Not attempted due to medical condition or safety concerns R. Wheel 50 feet with two turns 88-Not attempted due to medical condition or safety concerns S. Wheel 150 feet 88-Not attempted due to medical condition or safety concerns - Bladder and Bowel Bladder continence Bowel continence - Endurance Fair - Balance Fair - Safety Awareness Fair CURRENT [facility]. DEFICITS: Self-Care, Mobility, Endurance, Balance, and Safety Awareness SIGNATURE PANEL: (CDT)
[2020-09-17] MEDS: LEVOTHYROXINE SOD 0.075 MG TAB PO SCH (06:20)
[2020-09-17] MEDS: PANTOPRAZOLE 40MG TABLET PO SCH (06:20)
[2020-09-17] MEDS: OXcarbazepine 150 MG TAB PO SCH ×2 (08:01→19:14)
[2020-09-17] MEDS: ASPIRIN 81 MG CHEWABLE TABLET PO SCH (08:02)
[2020-09-17] MEDS: levoFLOXacin 250 MG TAB PO SCH (08:02)
[2020-09-17] MEDS: FOLIC ACID 1 MG TABLET PO SCH (08:02)
[2020-09-17] MEDS: FUROSEMIDE 20 MG TABLET PO SCH (08:03)
[2020-09-17] MEDS: ENOXAPARIN 40 MG/0.4 ML SQ SCH (16:09)
--- NOTE | 2020-09-17 17:53 | R.PN ---
PROGRESS NOTES ENCOUNTER DATE AND TIME: 09/17/2020 17:49 (CDT) NAME SONIA MONTANA DATE OF : 1930 DATE OF ADMISSION: 09/12/2020 18:44 (CDT) Ischemic stroke in left periventricular and basal ganglia region, right F/A/L weaknessCHIEF COMPLAINT : Stroke with right F/A/L weakness SUBJECTIVE: Pt denied any Shortness of Breath. Pt denied any depression. Ambulated 750' with contact guard assistance using a rolling walker. Mobilized wheelchair 250' with m inimum assistance. WBC 3.9, Hgb 13.8, Heel Gummer increased to 1.46 from 1.09 in 3 days. Prealbumin 18.4. VITAL SIGNS Temperature: 97.0 F SBP/DBP: 117/77 Pulse: 61 Resp: 15 MEDICATION ALLERGIES: MEPERIDINE HCI - ADVERSE REACTION ENVIRONMENTAL ALLERGIES: - Substance Allergies None Known - Other Allergies None Known NURSING: - Shower allowing shower - Bladder care per protocol - Skin care per protocol PRECAUTIONS: - Weight Bearing Precaution WBAT right LE ACTIVITIES OOB only with supervision THERAPIES: - Occupational Therapy Cognitive Retraining. Visual Perceptual Training. - Dietary and Nutrition Adequate Nutrition. Nutritional Education. Nutritional Supplements. - Speech Therapy Cognitive Training. Expressive Language Skills. Memory Strategies. Receptive Language Skills. Speech Intelligibility Training. PHYSICAL EXAM - Gen Alert and awake Lying in bed No apparent distress Oriented to: person, time, and place - Skin No breakdown Atraumatic - Eyes Poor vision bilaterally - ENMT No abnormalities - Neck No abnormalities - CVS RRR - Chest No abnormalities - Abd + bowel sounds - GI Soft Deferred - No abnormalities - Ext Mild edema in both lower extremities. - MSK 4+/5 weakness in right upper and lower extremities - Neuro 4/5 strength in the right upper and lower extremity mild right sided incoordination and gait ataxia. - Psych No abnormalities ASSESSMENT: Pt. is a 89 yo Right-handed male.On 09/12/2020 Pt. presented to [facility] with sudden o nset of right-side weakness.On 09/12/2020 he was admitted to [facility] with diagnosis I schemic stroke in left periventricular and basal ganglia region, right F/A/L weakness.His impairment category is Stroke 01 - Right Body (Left Brain) (01.2).Pre-morbidly, Pt. was independent/mod-I in Lo comotion, Safety Awareness, and Self-Care; and he had good Sphincter Control, Transfers Control, Soci al Cognition, Balance, and Endurance.Currently, he has deficits of Locomotion, Safety Awareness, Song nce, Transfers Control, Sphincter Control, Self-Care, and Communication.Pt. is now referred to [facility] for acute in-patient rehabilitation in order to maximize patient's functi onal independence in activities of daily living, strength, ROM, and mobility.- Rehab Goal Patient has realistic goal of being discharged at assistance level 7-Ind to reside at Home with Fami ly/Relatives. MDM/PLAN: - Physical Therapy Weakness - to improve, our physical therapists will perform initial evaluation of pt's status upon a dmission and devise an individualized program for Aquatic Therapy, Neuromuscular Reeducation, and Str engthening Poor balance - to improve, our physical therapists will perform initial evaluation of pt's status up on admission and devise an individualized program for Balance Training Inability to transfer - to improve, our physical therapists will perform initial evaluation of pt's status upon admission and devise an individualized program for Bed mobility Need in caregiver upon discharge - to improve, our physical therapists will perform initial evaluati on of pt's status upon admission and devise an individualized program for Caregiver Training Gait dysfunction - to improve, our physical therapists will perform initial evaluation of pt's statu s upon admission and devise an individualized program for Gait Training, and Wheel Chair mobility Need for home safety evaluation - to improve, our physical therapists will perform initial evaluatio n of pt's status upon admission and devise an individualized program for Home Evaluation New precaution - to improve, our physical therapists will perform initial evaluation of pt's status upon admission and devise an individualized program for Patient precaution education Edema - to improve, our physical therapists will perform initial evaluation of pt's status upon admi ssion and devise an individualized program for Elevation Training, and Lymphedema Therapy - Occupational Therapy Weakness - to improve, our occupation therapists will perform initial evaluation of pt's status upon admission and devise an individualized program for Aquatic Therapy, Balance, Endurance, UE ROM, and UE strengthening ADL deficits - to improve, our occupation therapists will perform initial evaluation of pt's status upon admission and devise an individualized program for Bathing, Bed mobility, Community Reintegratio n, Cooking, Dressing, Eating, Fine Motor Skills, Grooming, Homemaking, Kitchen Mobility, Laundry, Pat ient Education, Safety Awareness, Splinting - Positioning, Transfers(Toilet, Tub, Shower), and Wheel Chair Management Need for child care leader - to improve, our occupation therapists will perform initial evaluation of pt's status upon admission and devise an individualized program for Caregiver Training - Other See attached MAR (Medication Administration Record) - Diet Type Continue Regular - Diet - Liquid Texture Continue Regular - Tube Feed Continue N/A - Bladder care per protocol - Weight Bearing Precaution WBAT right LE - Skin care per protocol - Diet - Solid Texture Continue Regular - Shower allowing shower for Dementia, TBI, Stroke, or others - Dressing Status: mod for ADL deficits - Grooming Status: min for ADL deficits - Toilet Transfer Status: mod for ADL deficits - Tub Transfer Status: mod - Shower Transfer Status: min - Wheel Chair to Bed Transfer Status: mod for ADL deficits FUNCTIONAL STATUS: UPDATED AT WEEKLY TEAM CONFERENCE - Bladder Same accident frequency: 7-Ind - No accidents in the past 7 days - Bowel Same accident frequency: 7-Ind - No accidents in the past 7 days - Walking Same score based on distance walked: 0(N/A) Same score based on distance walked: 2(50-149ft) - Wheelchair Same score based on distance traveled: 0(N/A) FUNCTIONAL STATUS: - Self-Care A. Eating Ind B. Grooming sup C. Bathing Peace D. Dressing - Upper Peace E. Dressing - Lower modA F. Toileting Peace - Sphincter Control G. Bladder control Peace H. Bowel control Peace - Transfers Control I. Bed/Chair/Wheelchair Peace J. Toilet Peace K. Tub/Shower modA - Locomotion L. Walk/Wheelchair (B) Peace M. Stairs modA - Communication N. Comprehension (B) Peace O. Expression (B) Peace - Social Cognition P. Social Interaction Peace Q. Problem Solving Peace R. Memory Peace - Endurance Good - Balance Good - Safety Awareness Fair QI SCORES: - Self-Care A. Eating 03-Partial/moderate assistance B. Oral hygiene 03-Partial/moderate assistance C. Toileting hygiene E. Shower/bathe self 02-Substantial/maximal assistance F. Upper body dressing 02-Substantial/maximal assistance G. Lower body dressing 02-Substantial/maximal assistance H. Putting on/taking off footwear 88-Not attempted due to medical condition or safety concerns - Mobility A. Roll left and right 03-Partial/moderate assistance B. Sit to lying 03-Partial/moderate assistance C. Lying to sitting on side of bed 03-Partial/moderate assistance D. Sit to stand 03-Partial/moderate assistance E. Chair/[id number] transfer 03-Partial/moderate assistance F. Toilet transfer G. Car transfer 88-Not attempted due to medical condition or safety concerns I. Walk 10 feet 03-Partial/moderate assistance J. Walk 50 feet with two turns 88-Not attempted due to medical condition or safety concerns K. Walk 150 feet 88-Not attempted due to medical condition or safety concerns L. Walking 10 feet on uneven surfaces 88-Not attempted due to medical condition or safety concerns M. 1 step (curb) 88-Not attempted due to medical condition or safety concerns N. 4 steps 88-Not attempted due to medical condition or safety concerns O. 12 steps 88-Not attempted due to medical condition or safety concerns P. Picking up object 88-Not attempted due to medical condition or safety concerns R. Wheel 50 feet with two turns 88-Not attempted due to medical condition or safety concerns S. Wheel 150 feet 88-Not attempted due to medical condition or safety concerns - Bladder and Bowel Bladder continence Bowel continence - Endurance Fair - Balance Fair - Safety Awareness Fair CURRENT [facility]. DEFICITS: Self-Care, Mobility, Endurance, Balance, and Safety Awareness SIGNATURE PANEL: (CDT)
[2020-09-17] MEDS: DOCUSATE NA/SENNA CONC 1 TAB PO PRN (19:14)
[2020-09-17] MEDS: ATORVASTATIN 40 MG TAB PO SCH (19:14)
[2020-09-18 06:13] LABS: Absolute Lymphocytes (CBC) 1.6 K/uL (0.7-4.9); Basophils % 0.7 % (0-1.3); Hematocrit 37.9 % (39.6-49.0); Lymphocytes % 36.9 % (15.3-44.8); MPV 8.6 fL (7.6-11.3)
[2020-09-18] MEDS: PANTOPRAZOLE 40MG TABLET PO SCH (06:36)
[2020-09-18] MEDS: LEVOTHYROXINE SOD 0.075 MG TAB PO SCH (06:36)
[2020-09-18 06:43] LABS: Albumin 3.2 g/dL (3.4-5.0); Magnesium 2.2 mg/dL (1.8-2.4); Prealbumin 20.4 mg/dL (20-40)
[2020-09-18] MEDS: FUROSEMIDE 20 MG TABLET PO SCH (08:25)
[2020-09-18] MEDS: FOLIC ACID 1 MG TABLET PO SCH (08:25)
[2020-09-18] MEDS: ASPIRIN 81 MG CHEWABLE TABLET PO SCH (08:25)
[2020-09-18] MEDS: OXcarbazepine 150 MG TAB PO SCH ×2 (08:25→18:58)
[2020-09-18] MEDS: levoFLOXacin 250 MG TAB PO SCH (08:27)
[2020-09-18] MEDS ORDERED: MAGNESIUM CITRATE 300 ML BOT PO PRN (13:01)
[2020-09-18] MEDS: LACTULOSE 20 GM/30 ML UCUP PO PRN (14:07)
[2020-09-18] MEDS: ENOXAPARIN 40 MG/0.4 ML SQ SCH (16:12)
--- NOTE | 2020-09-18 17:00 | R.PN ---
PROGRESS NOTES ENCOUNTER DATE AND TIME: 09/18/2020 16:54 (CDT) NAME SONIA MONTANA DATE OF : 1930 DATE OF ADMISSION: 09/12/2020 18:44 (CDT) Ischemic stroke in left periventricular and basal ganglia region, right F/A/L weaknessCHIEF COMPLAINT : Stroke with right F/A/L weakness SUBJECTIVE: Pt denied any Shortness of Breath. Pt denied any depression. Ambulated 1000' with contact guard assistance using a rolling walker. Mobilized wheelchair 250' with minimum assistance. Up and down 15 steps with contact guard assistance. WBC 4.3, Hgb 12.7, Iron Erector increased to 1.49 from 1.09 in 3 days. Prealbumin 20.4. VITAL SIGNS Temperature: 98.8 F SBP/DBP: 129/89 Pulse: 65 Resp: 16 MEDICATION ALLERGIES: MEPERIDINE HCI - ADVERSE REACTION ENVIRONMENTAL ALLERGIES: - Substance Allergies None Known - Other Allergies None Known NURSING: - Shower allowing shower - Bladder care per protocol - Skin care per protocol PRECAUTIONS: - Weight Bearing Precaution WBAT right LE ACTIVITIES OOB only with supervision THERAPIES: - Occupational Therapy Cognitive Retraining. Visual Perceptual Training. - Dietary and Nutrition Adequate Nutrition. Nutritional Education. Nutritional Supplements. - Speech Therapy Cognitive Training. Expressive Language Skills. Memory Strategies. Receptive Language Skills. Speech Intelligibility Training. PHYSICAL EXAM - Gen Alert and awake Lying in bed No apparent distress Oriented to: person, time, and place - Skin No breakdown Atraumatic - Eyes Poor vision bilaterally - ENMT No abnormalities - Neck No abnormalities - CVS RRR - Chest No abnormalities - Abd + bowel sounds - GI Soft Deferred - No abnormalities - Ext Mild edema in both lower extremities. - MSK 4+/5 weakness in right upper and lower extremities - Neuro 4/5 strength in the right upper and lower extremity mild right sided incoordination and gait ataxia. - Psych No abnormalities ASSESSMENT: Pt. is a 89 yo Right-handed male.On 09/12/2020 Pt. presented to [facility] with sudden o nset of right-side weakness.On 09/12/2020 he was admitted to [facility] with diagnosis I schemic stroke in left periventricular and basal ganglia region, right F/A/L weakness.His impairment category is Stroke 01 - Right Body (Left Brain) (01.2).Pre-morbidly, Pt. was independent/mod-I in Lo comotion, Safety Awareness, and Self-Care; and he had good Sphincter Control, Transfers Control, Soci al Cognition, Balance, and Endurance.Currently, he has deficits of Locomotion, Safety Awareness, Song nce, Transfers Control, Sphincter Control, Self-Care, and Communication.Pt. is now referred to [facility] for acute in-patient rehabilitation in order to maximize patient's functi onal independence in activities of daily living, strength, ROM, and mobility.- Rehab Goal Patient has realistic goal of being discharged at assistance level 7-Ind to reside at Home with Fami ly/Relatives. MDM/PLAN: - Physical Therapy Weakness - to improve, our physical therapists will perform initial evaluation of pt's status upon a dmission and devise an individualized program for Aquatic Therapy, Neuromuscular Reeducation, and Str engthening Poor balance - to improve, our physical therapists will perform initial evaluation of pt's status up on admission and devise an individualized program for Balance Training Inability to transfer - to improve, our physical therapists will perform initial evaluation of pt's status upon admission and devise an individualized program for Bed mobility Need in caregiver upon discharge - to improve, our physical therapists will perform initial evaluati on of pt's status upon admission and devise an individualized program for Caregiver Training Gait dysfunction - to improve, our physical therapists will perform initial evaluation of pt's statu s upon admission and devise an individualized program for Gait Training, and Wheel Chair mobility Need for home safety evaluation - to improve, our physical therapists will perform initial evaluatio n of pt's status upon admission and devise an individualized program for Home Evaluation New precaution - to improve, our physical therapists will perform initial evaluation of pt's status upon admission and devise an individualized program for Patient precaution education Edema - to improve, our physical therapists will perform initial evaluation of pt's status upon admi ssion and devise an individualized program for Elevation Training, and Lymphedema Therapy - Occupational Therapy Weakness - to improve, our occupation therapists will perform initial evaluation of pt's status upon admission and devise an individualized program for Aquatic Therapy, Balance, Endurance, UE ROM, and UE strengthening ADL deficits - to improve, our occupation therapists will perform initial evaluation of pt's status upon admission and devise an individualized program for Bathing, Bed mobility, Community Reintegratio n, Cooking, Dressing, Eating, Fine Motor Skills, Grooming, Homemaking, Kitchen Mobility, Laundry, Pat ient Education, Safety Awareness, Splinting - Positioning, Transfers(Toilet, Tub, Shower), and Wheel Chair Management Need for physician assistant primary care - to improve, our occupation therapists will perform initial evaluation of pt's status upon admission and devise an individualized program for Caregiver Training - Other See attached MAR (Medication Administration Record) - Diet Type Continue Regular - Diet - Liquid Texture Continue Regular - Tube Feed Continue N/A - Bladder care per protocol - Weight Bearing Precaution WBAT right LE - Skin care per protocol - Diet - Solid Texture Continue Regular - Shower allowing shower for Dementia, TBI, Stroke, or others - Dressing Status: mod for ADL deficits - Grooming Status: min for ADL deficits - Toilet Transfer Status: mod for ADL deficits - Tub Transfer Status: mod - Shower Transfer Status: min - Wheel Chair to Bed Transfer Status: mod for ADL deficits FUNCTIONAL STATUS: UPDATED AT WEEKLY TEAM CONFERENCE - Bladder Same accident frequency: 7-Ind - No accidents in the past 7 days - Bowel Same accident frequency: 7-Ind - No accidents in the past 7 days - Walking Same score based on distance walked: 0(N/A) Same score based on distance walked: 2(50-149ft) - Wheelchair Same score based on distance traveled: 0(N/A) FUNCTIONAL STATUS: - Self-Care A. Eating Ind B. Grooming sup C. Bathing Peace D. Dressing - Upper Peace E. Dressing - Lower modA F. Toileting Peace - Sphincter Control G. Bladder control Peace H. Bowel control Peace - Transfers Control I. Bed/Chair/Wheelchair Peace J. Toilet Peace K. Tub/Shower modA - Locomotion L. Walk/Wheelchair (B) Peace M. Stairs modA - Communication N. Comprehension (B) Peace O. Expression (B) Peace - Social Cognition P. Social Interaction Peace Q. Problem Solving Peace R. Memory Peace - Endurance Good - Balance Good - Safety Awareness Fair QI SCORES: - Self-Care A. Eating 03-Partial/moderate assistance B. Oral hygiene 03-Partial/moderate assistance C. Toileting hygiene E. Shower/bathe self 02-Substantial/maximal assistance F. Upper body dressing 02-Substantial/maximal assistance G. Lower body dressing 02-Substantial/maximal assistance H. Putting on/taking off footwear 88-Not attempted due to medical condition or safety concerns - Mobility A. Roll left and right 03-Partial/moderate assistance B. Sit to lying 03-Partial/moderate assistance C. Lying to sitting on side of bed 03-Partial/moderate assistance D. Sit to stand 03-Partial/moderate assistance E. Chair/fhp-[id number] transfer 03-Partial/moderate assistance F. Toilet transfer G. Car transfer 88-Not attempted due to medical condition or safety concerns I. Walk 10 feet 03-Partial/moderate assistance J. Walk 50 feet with two turns 88-Not attempted due to medical condition or safety concerns K. Walk 150 feet 88-Not attempted due to medical condition or safety concerns L. Walking 10 feet on uneven surfaces 88-Not attempted due to medical condition or safety concerns M. 1 step (curb) 88-Not attempted due to medical condition or safety concerns N. 4 steps 88-Not attempted due to medical condition or safety concerns O. 12 steps 88-Not attempted due to medical condition or safety concerns P. Picking up object 88-Not attempted due to medical condition or safety concerns R. Wheel 50 feet with two turns 88-Not attempted due to medical condition or safety concerns S. Wheel 150 feet 88-Not attempted due to medical condition or safety concerns - Bladder and Bowel Bladder continence Bowel continence - Endurance Fair - Balance Fair - Safety Awareness Fair [facility]. DEFICITS: Self-Care, Mobility, Endurance, Balance, and Safety Awareness SIGNATURE PANEL: (CDT)
[2020-09-18] MEDS: ATORVASTATIN 40 MG TAB PO SCH (18:58)
[2020-09-19] MEDS: LEVOTHYROXINE SOD 0.075 MG TAB PO SCH (06:20)
[2020-09-19] MEDS: PANTOPRAZOLE 40MG TABLET PO SCH (06:20)
[2020-09-19] MEDS: FUROSEMIDE 20 MG TABLET PO SCH (08:46)
[2020-09-19] MEDS: FOLIC ACID 1 MG TABLET PO SCH (08:47)
[2020-09-19] MEDS: ASPIRIN 81 MG CHEWABLE TABLET PO SCH (08:47)
[2020-09-19] MEDS: OXcarbazepine 150 MG TAB PO SCH ×2 (08:48→20:37)
--- NOTE | 2020-09-19 09:47 | P.RH.PN ---
Estimated Length of Stay: 19 Expected Discharge Date: 09/30/20 Discharge Disposition Plan: Home Family Support: Yes Retirement Goal: Mobility, Transfers, Self Care Vital Signs: Last Vital Signs Temp 97.4 F 09/19/20 06:37 Pulse 57 09/19/20 08:46 Resp 18 09/19/20 06:37 BP 140/82 09/19/20 08:46 Pulse Ox 99 09/19/20 06:37 Laboratory: Laboratory Last Values WBC 4.30 K/uL (4.3-10.9) 09/18/20 05:56 RBC 4.20 M/uL (4.33-5.43) L 09/18/20 05:56 Hgb 12.7 g/dL (13.6-17.9) L 09/18/20 05:56 Hct 37.9 % (39.6-49.0) L 09/18/20 05:56 MCV 90.4 fL (80-100) 09/18/20 05:56 MCH 30.2 pg (27.0-35.0) 09/18/20 05:56 MCHC 33.4 g/dL (32.0-36.0) 09/18/20 05:56 RDW 13.9 % (12.1-15.2) 09/18/20 05:56 Plt Count 132 K/uL (152-406) L 09/18/20 05:56 MPV 8.6 fL (7.6-11.3) 09/18/20 05:56 Neutrophils % 46.1 % (41.7-73.7) 09/18/20 05:56 Lymphocytes % 36.9 % (15.3-44.8) 09/18/20 05:56 Monocytes % 13.5 % (3.3-12.3) H 09/18/20 05:56 Eosinophils % 2.8 % (0-4.4) 09/18/20 05:56 Basophils % 0.7 % (0-1.3) 09/18/20 05:56 Absolute Neutrophils 2.0 K/uL (1.8-8.0) 09/18/20 05:56 Absolute Lymphocytes 1.6 K/uL (0.7-4.9) 09/18/20 05:56 Absolute Monocytes 0.6 K/uL (0.1-1.3) 09/18/20 05:56 Absolute Eosinophils 0.1 K/uL (0-0.5) 09/18/20 05:56 Absolute Basophils 0.0 K/uL (0-0.5) 09/18/20 05:56 Sodium 141 mmol/L (136-145) 09/18/20 05:56 Potassium 4.0 mmol/L (3.5-5.1) 09/18/20 05:56 Chloride 111 mmol/L (98-107) H 09/18/20 05:56 Carbon Dioxide 24 mmol/L (21-32) 09/18/20 05:56 BUN 30 mg/dL (7-18) H 09/18/20 05:56 Creatinine 1.49 mg/dL (0.55-1.3) H 09/18/20 05:56 Estimated GFR 54 mL/min (=/>90) L 09/18/20 05:56 Glucose 90 mg/dL (74-106) 09/18/20 05:56 Calcium 9.0 mg/dL (8.5-10.1) 09/18/20 05:56 Magnesium 2.2 mg/dL (1.8-2.4) 09/18/20 05:56 Albumin 3.2 g/dL (3.4-5.0) L 09/18/20 05:56 Prealbumin 20.4 mg/dL (20-40) 09/18/20 05:56 Urine Color Yellow (Yellow) 09/13/20 01:59 Urine Appearance Clear (Clear) 09/13/20 01:59 Urine pH 6.0 (5.0-7.0) 09/13/20 01:59 Ur Specific Jayess 1.015 (1.005-1.030) 09/13/20 01:59 Glucose (UA)(Auto) Negative (Negative) 09/13/20 01:59 Urine Ketones Negative (Negative) 09/13/20 01:59 Urine Blood 2+ (Negative) H 09/13/20 01:59 Urine Nitrite Negative (Negative) 09/13/20 01:59 Urine Bilirubin Negative (Negative) 09/13/20 01:59 Urine Urobilinogen 0.2 mg/dL (0.2-1.0) 09/13/20 01:59 Ur Leukocyte Esterase Negative (Negative) 09/13/20 01:59 Urine RBC 10-20 /HPF (NONE SEEN) H 09/13/20 01:59 Urine WBC <5 /HPF (<5) 09/13/20 01:59 Ur Squamous Epith Cells <5 /HPF (NONE SEEN) 09/13/20 01:59 Urine Bacteria <20 /HPF (NONE SEEN) 09/13/20 01:59 Urine Culture Reflexed Not needed 09/13/20 01:59 Urine Total Protein Negative (Negative) 09/13/20 01:59 SARS-CoV-2 RNA (RT-PCR) Negative (NEGATIVE) 09/15/20 16:00 Weight: 175 lb 3.2 oz Wound Present: No Closed Surgical Incision Present: No Negative Pressure Wound Therapy Present: No Physician Update: Labs were reviewed and are stable. He is making fair overall progress with physical and occupational therapy. He will likely require home health. He requires a rolling walker. Summary: Patient's care plan and special agent goals have been reviewed and revised as necessary. Please see the Rehabilitation Signature page for all necessary signatures.
[2020-09-19] MEDS: ENOXAPARIN 40 MG/0.4 ML SQ SCH (16:28)
[2020-09-19] MEDS: ATORVASTATIN 40 MG TAB PO SCH (20:37)
[2020-09-20] MEDS: LEVOTHYROXINE SOD 0.075 MG TAB PO SCH (06:51)
[2020-09-20] MEDS: PANTOPRAZOLE 40MG TABLET PO SCH (06:51)
[2020-09-20] MEDS: ASPIRIN 81 MG CHEWABLE TABLET PO SCH (07:29)
[2020-09-20] MEDS: OXcarbazepine 150 MG TAB PO SCH ×2 (07:29→20:26)
[2020-09-20] MEDS: FOLIC ACID 1 MG TABLET PO SCH (07:29)
[2020-09-20] MEDS: ENOXAPARIN 40 MG/0.4 ML SQ SCH ×2 (17:00→20:26)
--- NOTE | 2020-09-20 19:08 | R.PN ---
PROGRESS NOTES ENCOUNTER DATE AND TIME: 09/20/2020 19:04 (CDT) NAME SONIA MONTANA DATE OF : 1930 DATE OF ADMISSION: 09/12/2020 18:44 (CDT) Ischemic stroke in left periventricular and basal ganglia region, right F/A/L weaknessCHIEF COMPLAINT : Stroke with right F/A/L weakness SUBJECTIVE: Pt denied any Shortness of Breath. Pt denied any depression. Ambulated 1000' with contact guard assistance using a rolling walker. Mobilized wheelchair 250' with minimum assistance. WBC 4.3, Hgb 12.7, Baggage Handler increased to 1.49 from 1.09 in 3 days. Prealbumin 20.4. VITAL SIGNS Temperature: 98.9 F SBP/DBP: 140/78 Pulse: 61 Resp: 16 MEDICATION ALLERGIES: MEPERIDINE HCI - ADVERSE REACTION ENVIRONMENTAL ALLERGIES: - Substance Allergies None Known - Other Allergies None Known NURSING: - Shower allowing shower - Bladder care per protocol - Skin care per protocol PRECAUTIONS: - Weight Bearing Precaution WBAT right LE ACTIVITIES OOB only with supervision THERAPIES: - Occupational Therapy Cognitive Retraining. Visual Perceptual Training. - Dietary and Nutrition Adequate Nutrition. Nutritional Education. Nutritional Supplements. - Speech Therapy Cognitive Training. Expressive Language Skills. Memory Strategies. Receptive Language Skills. Speech Intelligibility Training. PHYSICAL EXAM - Gen Alert and awake Lying in bed No apparent distress Oriented to: person, time, and place - Skin No breakdown Atraumatic - Eyes Poor vision bilaterally - ENMT No abnormalities - Neck No abnormalities - CVS RRR - Chest No abnormalities - Abd + bowel sounds - GI Soft Deferred - No abnormalities - Ext Mild edema in both lower extremities. - MSK 4+/5 weakness in right upper and lower extremities - Neuro 4/5 strength in the right upper and lower extremity mild right sided incoordination and gait ataxia. - Psych No abnormalities ASSESSMENT: Pt. is a 89 yo Right-handed male.On 09/12/2020 Pt. presented to [facility] with sudden o nset of right-side weakness.On 09/12/2020 he was admitted to [facility] with diagnosis I schemic stroke in left periventricular and basal ganglia region, right F/A/L weakness.His impairment category is Stroke 01 - Right Body (Left Brain) (01.2).Pre-morbidly, Pt. was independent/mod-I in Lo comotion, Safety Awareness, and Self-Care; and he had good Sphincter Control, Transfers Control, Soci al Cognition, Balance, and Endurance.Currently, he has deficits of Locomotion, Safety Awareness, Song nce, Transfers Control, Sphincter Control, Self-Care, and Communication.Pt. is now referred to [facility] for acute in-patient rehabilitation in order to maximize patient's functi onal independence in activities of daily living, strength, ROM, and mobility.- Rehab Goal Patient has realistic goal of being discharged at assistance level 7-Ind to reside at Home with Fami ly/Relatives. MDM/PLAN: - Physical Therapy Weakness - to improve, our physical therapists will perform initial evaluation of pt's status upon a dmission and devise an individualized program for Aquatic Therapy, Neuromuscular Reeducation, and Str engthening Poor balance - to improve, our physical therapists will perform initial evaluation of pt's status up on admission and devise an individualized program for Balance Training Inability to transfer - to improve, our physical therapists will perform initial evaluation of pt's status upon admission and devise an individualized program for Bed mobility Need in caregiver upon discharge - to improve, our physical therapists will perform initial evaluati on of pt's status upon admission and devise an individualized program for Caregiver Training Gait dysfunction - to improve, our physical therapists will perform initial evaluation of pt's statu s upon admission and devise an individualized program for Gait Training, and Wheel Chair mobility Need for home safety evaluation - to improve, our physical therapists will perform initial evaluatio n of pt's status upon admission and devise an individualized program for Home Evaluation New precaution - to improve, our physical therapists will perform initial evaluation of pt's status upon admission and devise an individualized program for Patient precaution education Edema - to improve, our physical therapists will perform initial evaluation of pt's status upon admi ssion and devise an individualized program for Elevation Training, and Lymphedema Therapy - Occupational Therapy Weakness - to improve, our occupation therapists will perform initial evaluation of pt's status upon admission and devise an individualized program for Aquatic Therapy, Balance, Endurance, UE ROM, and UE strengthening ADL deficits - to improve, our occupation therapists will perform initial evaluation of pt's status upon admission and devise an individualized program for Bathing, Bed mobility, Community Reintegratio n, Cooking, Dressing, Eating, Fine Motor Skills, Grooming, Homemaking, Kitchen Mobility, Laundry, Pat ient Education, Safety Awareness, Splinting - Positioning, Transfers(Toilet, Tub, Shower), and Wheel Chair Management Need for health care social worker - to improve, our occupation therapists will perform initial evaluation of pt's status upon admission and devise an individualized program for Caregiver Training - Other See attached MAR (Medication Administration Record) - Diet Type Continue Regular - Diet - Liquid Texture Continue Regular - Tube Feed Continue N/A - Bladder care per protocol - Weight Bearing Precaution WBAT right LE - Skin care per protocol - Diet - Solid Texture Continue Regular - Shower allowing shower for Dementia, TBI, Stroke, or others - Dressing Status: mod for ADL deficits - Grooming Status: min for ADL deficits - Toilet Transfer Status: mod for ADL deficits - Tub Transfer Status: mod - Shower Transfer Status: min - Wheel Chair to Bed Transfer Status: mod for ADL deficits FUNCTIONAL STATUS: UPDATED AT WEEKLY TEAM CONFERENCE - Bladder Same accident frequency: 7-Ind - No accidents in the past 7 days - Bowel Same accident frequency: 7-Ind - No accidents in the past 7 days - Walking Same score based on distance walked: 0(N/A) Same score based on distance walked: 2(50-149ft) - Wheelchair Same score based on distance traveled: 0(N/A) FUNCTIONAL STATUS: - Self-Care A. Eating Ind B. Grooming sup C. Bathing Peace D. Dressing - Upper Peace E. Dressing - Lower modA F. Toileting Peace - Sphincter Control G. Bladder control Peace H. Bowel control Peace - Transfers Control I. Bed/Chair/Wheelchair Peace J. Toilet Peace K. Tub/Shower modA - Locomotion L. Walk/Wheelchair (B) Peace M. Stairs modA - Communication N. Comprehension (B) Peace O. Expression (B) Peace - Social Cognition P. Social Interaction Peace Q. Problem Solving Peace R. Memory Peace - Endurance Good - Balance Good - Safety Awareness Fair QI SCORES: - Self-Care A. Eating 03-Partial/moderate assistance B. Oral hygiene 03-Partial/moderate assistance C. Toileting hygiene E. Shower/bathe self 02-Substantial/maximal assistance F. Upper body dressing 02-Substantial/maximal assistance G. Lower body dressing 02-Substantial/maximal assistance H. Putting on/taking off footwear 88-Not attempted due to medical condition or safety concerns - Mobility A. Roll left and right 03-Partial/moderate assistance B. Sit to lying 03-Partial/moderate assistance C. Lying to sitting on side of bed 03-Partial/moderate assistance D. Sit to stand 03-Partial/moderate assistance E. Chair/[id number] transfer 03-Partial/moderate assistance F. Toilet transfer G. Car transfer 88-Not attempted due to medical condition or safety concerns I. Walk 10 feet 03-Partial/moderate assistance J. Walk 50 feet with two turns 88-Not attempted due to medical condition or safety concerns K. Walk 150 feet 88-Not attempted due to medical condition or safety concerns L. Walking 10 feet on uneven surfaces 88-Not attempted due to medical condition or safety concerns M. 1 step (curb) 88-Not attempted due to medical condition or safety concerns N. 4 steps 88-Not attempted due to medical condition or safety concerns O. 12 steps 88-Not attempted due to medical condition or safety concerns P. Picking up object 88-Not attempted due to medical condition or safety concerns R. Wheel 50 feet with two turns 88-Not attempted due to medical condition or safety concerns S. Wheel 150 feet 88-Not attempted due to medical condition or safety concerns - Bladder and Bowel Bladder continence Bowel continence - Endurance Fair - Balance Fair - Safety Awareness Fair [facility] DEFICITS: Self-Care, Mobility, Endurance, Balance, and Safety Awareness SIGNATURE PANEL: (CDT)
[2020-09-20] MEDS: ATORVASTATIN 40 MG TAB PO SCH (20:25)
[2020-09-21] MEDS: LEVOTHYROXINE SOD 0.075 MG TAB PO SCH (06:35)
[2020-09-21] MEDS: PANTOPRAZOLE 40MG TABLET PO SCH (06:35)
[2020-09-21] MEDS: ASPIRIN 81 MG CHEWABLE TABLET PO SCH (08:16)
[2020-09-21] MEDS: OXcarbazepine 150 MG TAB PO SCH ×2 (08:16→19:55)
[2020-09-21] MEDS: FOLIC ACID 1 MG TABLET PO SCH (08:16)
[2020-09-21] MEDS: ATORVASTATIN 40 MG TAB PO SCH (19:54)
[2020-09-21] MEDS: ENOXAPARIN 40 MG/0.4 ML SQ SCH (19:55)
[2020-09-22] MEDS: LEVOTHYROXINE SOD 0.075 MG TAB PO SCH (06:35)
[2020-09-22] MEDS: PANTOPRAZOLE 40MG TABLET PO SCH (06:35)
[2020-09-22] MEDS: OXcarbazepine 150 MG TAB PO SCH ×2 (08:03→20:45)
[2020-09-22] MEDS: FOLIC ACID 1 MG TABLET PO SCH (08:03)
[2020-09-22] MEDS: ASPIRIN 81 MG CHEWABLE TABLET PO SCH (08:03)
[2020-09-22] MEDS: LACTULOSE 20 GM/30 ML UCUP PO PRN (14:09)
--- NOTE | 2020-09-22 18:12 | R.PN ---
PROGRESS NOTES ENCOUNTER DATE AND TIME: 09/22/2020 18:09 (CDT) NAME SONIA MONTANA DATE OF : 1930 DATE OF ADMISSION: 09/12/2020 18:44 (CDT) Ischemic stroke in left periventricular and basal ganglia region, right F/A/L weaknessCHIEF COMPLAINT : Stroke with right F/A/L weakness SUBJECTIVE: Pt denied any Shortness of Breath. Pt denied any depression. Ambulated 1000' with standby assistance using a rolling walker. Mobilized wheelchair 250' with minimu m assistance. Up and down 10 steps with minimum assistance using bilateral hand rails. WBC 4.3, Hgb 12.7, Global Sales Manager increased to 1.49 from 1.09 in 3 days. Prealbumin 20.4. VITAL SIGNS Temperature: 99.2 F SBP/DBP: 131/73 Pulse: 62 Resp: 16 MEDICATION ALLERGIES: MEPERIDINE HCI - ADVERSE REACTION ENVIRONMENTAL ALLERGIES: - Substance Allergies None Known - Other Allergies None Known NURSING: - Shower allowing shower - Bladder care per protocol - Skin care per protocol PRECAUTIONS: - Weight Bearing Precaution WBAT right LE ACTIVITIES OOB only with supervision THERAPIES: - Occupational Therapy Cognitive Retraining. Visual Perceptual Training. - Dietary and Nutrition Adequate Nutrition. Nutritional Education. Nutritional Supplements. - Speech Therapy Cognitive Training. Expressive Language Skills. Memory Strategies. Receptive Language Skills. Speech Intelligibility Training. PHYSICAL EXAM - Gen Alert and awake Lying in bed No apparent distress Oriented to: person, time, and place - Skin No breakdown Atraumatic - Eyes Poor vision bilaterally - ENMT No abnormalities - Neck No abnormalities - CVS RRR - Chest No abnormalities - Abd + bowel sounds - GI Soft Deferred - No abnormalities - Ext Mild edema in both lower extremities. - MSK 4+/5 weakness in right upper and lower extremities - Neuro 4/5 strength in the right upper and lower extremity mild right sided incoordination and gait ataxia. - Psych No abnormalities ASSESSMENT: Pt. is a 89 yo Right-handed male.On 09/12/2020 Pt. presented to [facility] with sudden o nset of right-side weakness.On 09/12/2020 he was admitted to [facility] with diagnosis I schemic stroke in left periventricular and basal ganglia region, right F/A/L weakness.His impairment category is Stroke 01 - Right Body (Left Brain) (01.2).Pre-morbidly, Pt. was independent/mod-I in Lo comotion, Safety Awareness, and Self-Care; and he had good Sphincter Control, Transfers Control, Soci al Cognition, Balance, and Endurance.Currently, he has deficits of Locomotion, Safety Awareness, Melbeta nce, Transfers Control, Sphincter Control, Self-Care, and Communication.Pt. is now referred to [facility] for acute in-patient rehabilitation in order to maximize patient's functi onal independence in activities of daily living, strength, ROM, and mobility.- Rehab Goal Patient has realistic goal of being discharged at assistance level 7-Ind to reside at Home with Fami ly/Relatives. MDM/PLAN: - Physical Therapy Weakness - to improve, our physical therapists will perform initial evaluation of pt's status upon a dmission and devise an individualized program for Aquatic Therapy, Neuromuscular Reeducation, and Str engthening Poor balance - to improve, our physical therapists will perform initial evaluation of pt's status up on admission and devise an individualized program for Balance Training Inability to transfer - to improve, our physical therapists will perform initial evaluation of pt's status upon admission and devise an individualized program for Bed mobility Need in caregiver upon discharge - to improve, our physical therapists will perform initial evaluati on of pt's status upon admission and devise an individualized program for Caregiver Training Gait dysfunction - to improve, our physical therapists will perform initial evaluation of pt's statu s upon admission and devise an individualized program for Gait Training, and Wheel Chair mobility Need for home safety evaluation - to improve, our physical therapists will perform initial evaluatio n of pt's status upon admission and devise an individualized program for Home Evaluation New precaution - to improve, our physical therapists will perform initial evaluation of pt's status upon admission and devise an individualized program for Patient precaution education Edema - to improve, our physical therapists will perform initial evaluation of pt's status upon admi ssion and devise an individualized program for Elevation Training, and Lymphedema Therapy - Occupational Therapy Weakness - to improve, our occupation therapists will perform initial evaluation of pt's status upon admission and devise an individualized program for Aquatic Therapy, Balance, Endurance, UE ROM, and UE strengthening ADL deficits - to improve, our occupation therapists will perform initial evaluation of pt's status upon admission and devise an individualized program for Bathing, Bed mobility, Community Reintegratio n, Cooking, Dressing, Eating, Fine Motor Skills, Grooming, Homemaking, Kitchen Mobility, Laundry, Pat ient Education, Safety Awareness, Splinting - Positioning, Transfers(Toilet, Tub, Shower), and Wheel Chair Management Need for child care - to improve, our occupation therapists will perform initial evaluation of pt's status upon admission and devise an individualized program for Caregiver Training - Other See attached MAR (Medication Administration Record) - Diet Type Continue Regular - Diet - Liquid Texture Continue Regular - Tube Feed Continue N/A - Bladder care per protocol - Weight Bearing Precaution WBAT right LE - Skin care per protocol - Diet - Solid Texture Continue Regular - Shower allowing shower for Dementia, TBI, Stroke, or others - Dressing Status: mod for ADL deficits - Grooming Status: min for ADL deficits - Toilet Transfer Status: mod for ADL deficits - Tub Transfer Status: mod - Shower Transfer Status: min - Wheel Chair to Bed Transfer Status: mod for ADL deficits FUNCTIONAL STATUS: UPDATED AT WEEKLY TEAM CONFERENCE - Bladder Same accident frequency: 7-Ind - No accidents in the past 7 days - Bowel Same accident frequency: 7-Ind - No accidents in the past 7 days - Walking Same score based on distance walked: 0(N/A) Same score based on distance walked: 2(50-149ft) - Wheelchair Same score based on distance traveled: 0(N/A) FUNCTIONAL STATUS: - Self-Care A. Eating Ind B. Grooming sup C. Bathing Peace D. Dressing - Upper Peace E. Dressing - Lower modA F. Toileting Peace - Sphincter Control G. Bladder control Peace H. Bowel control Peace - Transfers Control I. Bed/Chair/Wheelchair Peace J. Toilet Peace K. Tub/Shower modA - Locomotion L. Walk/Wheelchair (B) Peace M. Stairs modA - Communication N. Comprehension (B) Peace O. Expression (B) Peace - Social Cognition P. Social Interaction Peace Q. Problem Solving Peace R. Memory Peace - Endurance Good - Balance Good - Safety Awareness Fair QI SCORES: - Self-Care A. Eating 03-Partial/moderate assistance B. Oral hygiene 03-Partial/moderate assistance C. Toileting hygiene E. Shower/bathe self 02-Substantial/maximal assistance F. Upper body dressing 02-Substantial/maximal assistance G. Lower body dressing 02-Substantial/maximal assistance H. Putting on/taking off footwear 88-Not attempted due to medical condition or safety concerns - Mobility A. Roll left and right 03-Partial/moderate assistance B. Sit to lying 03-Partial/moderate assistance C. Lying to sitting on side of bed 03-Partial/moderate assistance D. Sit to stand 03-Partial/moderate assistance E. Chair/[id number] transfer 03-Partial/moderate assistance F. Toilet transfer G. Car transfer 88-Not attempted due to medical condition or safety concerns I. Walk 10 feet 03-Partial/moderate assistance J. Walk 50 feet with two turns 88-Not attempted due to medical condition or safety concerns K. Walk 150 feet 88-Not attempted due to medical condition or safety concerns L. Walking 10 feet on uneven surfaces 88-Not attempted due to medical condition or safety concerns M. 1 step (curb) 88-Not attempted due to medical condition or safety concerns N. 4 steps 88-Not attempted due to medical condition or safety concerns O. 12 steps 88-Not attempted due to medical condition or safety concerns P. Picking up object 88-Not attempted due to medical condition or safety concerns R. Wheel 50 feet with two turns 88-Not attempted due to medical condition or safety concerns S. Wheel 150 feet 88-Not attempted due to medical condition or safety concerns - Bladder and Bowel Bladder continence Bowel continence - Endurance Fair - Balance Fair - Safety Awareness Fair [facility]RENT [facility]. DEFICITS: Self-Care, Mobility, Endurance, Balance, and Safety Awareness SIGNATURE PANEL: (CDT)
[2020-09-22] MEDS: DOCUSATE NA/SENNA CONC 1 TAB PO PRN (20:46)
[2020-09-22] MEDS: ATORVASTATIN 40 MG TAB PO SCH (20:46)
[2020-09-22] MEDS: ENOXAPARIN 40 MG/0.4 ML SQ SCH (20:46)
[2020-09-23] MEDS: PANTOPRAZOLE 40MG TABLET PO SCH (06:33)
[2020-09-23] MEDS: LEVOTHYROXINE SOD 0.075 MG TAB PO SCH (06:33)
[2020-09-23] MEDS: ASPIRIN 81 MG CHEWABLE TABLET PO SCH (08:02)
[2020-09-23] MEDS: FOLIC ACID 1 MG TABLET PO SCH (08:02)
[2020-09-23] MEDS: OXcarbazepine 150 MG TAB PO SCH ×2 (08:02→19:42)
[2020-09-23] MEDS: FUROSEMIDE 20 MG TABLET PO SCH (14:10)
--- NOTE | 2020-09-23 17:46 | R.PN ---
PROGRESS NOTES ENCOUNTER DATE AND TIME: 09/23/2020 17:41 (CDT) NAME SONIA MONTANA DATE OF : 1930 DATE OF ADMISSION: 09/12/2020 18:44 (CDT) Ischemic stroke in left periventricular and basal ganglia region, right F/A/L weaknessCHIEF COMPLAINT : Stroke with right F/A/L weakness SUBJECTIVE: Pt denied any Shortness of Breath. Pt denied any depression. Ambulated 1000' with standby assistance using a rolling walker. Mobilized wheelchair 250' with standb y assistance. WBC 4.3, Hgb 12.7, Card Tender increased to 1.49 from 1.09 in 3 days. Prealbumin 20.4. VITAL SIGNS Temperature: 97.5 F SBP/DBP: 131/78 Pulse: 72 Resp: 16 MEDICATION ALLERGIES: MEPERIDINE HCI - ADVERSE REACTION ENVIRONMENTAL ALLERGIES: - Substance Allergies None Known - Other Allergies None Known NURSING: - Shower allowing shower - Bladder care per protocol - Skin care per protocol PRECAUTIONS: - Weight Bearing Precaution WBAT right LE ACTIVITIES OOB only with supervision THERAPIES: - Occupational Therapy Cognitive Retraining. Visual Perceptual Training. - Dietary and Nutrition Adequate Nutrition. Nutritional Education. Nutritional Supplements. - Speech Therapy Cognitive Training. Expressive Language Skills. Memory Strategies. Receptive Language Skills. Speech Intelligibility Training. PHYSICAL EXAM - Gen Alert and awake Lying in bed No apparent distress Oriented to: person, time, and place - Skin No breakdown Atraumatic - Eyes Poor vision bilaterally - ENMT No abnormalities - Neck No abnormalities - CVS RRR - Chest No abnormalities - Abd + bowel sounds - GI Soft Deferred - No abnormalities - Ext Mild edema in both lower extremities. - MSK 4+/5 weakness in right upper and lower extremities - Neuro 4/5 strength in the right upper and lower extremity mild right sided incoordination and gait ataxia. - Psych No abnormalities ASSESSMENT: Pt. is a 89 yo Right-handed male.On 09/12/2020 Pt. presented to [facility] with sudden o nset of right-side weakness.On 09/12/2020 he was admitted to [facility] with diagnosis I schemic stroke in left periventricular and basal ganglia region, right F/A/L weakness.His impairment category is Stroke 01 - Right Body (Left Brain) (01.2).Pre-morbidly, Pt. was independent/mod-I in Lo comotion, Safety Awareness, and Self-Care; and he had good Sphincter Control, Transfers Control, Soci al Cognition, Balance, and Endurance.Currently, he has deficits of Locomotion, Safety Awareness, Song nce, Transfers Control, Sphincter Control, Self-Care, and Communication.Pt. is now referred to [facility] for acute in-patient rehabilitation in order to maximize patient's functi onal independence in activities of daily living, strength, ROM, and mobility.- Rehab Goal Patient has realistic goal of being discharged at assistance level 7-Ind to reside at Home with Fami ly/Relatives. MDM/PLAN: - Physical Therapy Weakness - to improve, our physical therapists will perform initial evaluation of pt's status upon a dmission and devise an individualized program for Aquatic Therapy, Neuromuscular Reeducation, and Str engthening Poor balance - to improve, our physical therapists will perform initial evaluation of pt's status up on admission and devise an individualized program for Balance Training Inability to transfer - to improve, our physical therapists will perform initial evaluation of pt's status upon admission and devise an individualized program for Bed mobility Need in caregiver upon discharge - to improve, our physical therapists will perform initial evaluati on of pt's status upon admission and devise an individualized program for Caregiver Training Gait dysfunction - to improve, our physical therapists will perform initial evaluation of pt's statu s upon admission and devise an individualized program for Gait Training, and Wheel Chair mobility Need for home safety evaluation - to improve, our physical therapists will perform initial evaluatio n of pt's status upon admission and devise an individualized program for Home Evaluation New precaution - to improve, our physical therapists will perform initial evaluation of pt's status upon admission and devise an individualized program for Patient precaution education Edema - to improve, our physical therapists will perform initial evaluation of pt's status upon admi ssion and devise an individualized program for Elevation Training, and Lymphedema Therapy - Occupational Therapy Weakness - to improve, our occupation therapists will perform initial evaluation of pt's status upon admission and devise an individualized program for Aquatic Therapy, Balance, Endurance, UE ROM, and UE strengthening ADL deficits - to improve, our occupation therapists will perform initial evaluation of pt's status upon admission and devise an individualized program for Bathing, Bed mobility, Community Reintegratio n, Cooking, Dressing, Eating, Fine Motor Skills, Grooming, Homemaking, Kitchen Mobility, Laundry, Pat ient Education, Safety Awareness, Splinting - Positioning, Transfers(Toilet, Tub, Shower), and Wheel Chair Management Need for client care manager - to improve, our occupation therapists will perform initial evaluation of pt's status upon admission and devise an individualized program for Caregiver Training - Other See attached MAR (Medication Administration Record) - Diet Type Continue Regular - Diet - Liquid Texture Continue Regular - Tube Feed Continue N/A - Bladder care per protocol - Weight Bearing Precaution WBAT right LE - Skin care per protocol - Diet - Solid Texture Continue Regular - Shower allowing shower for Dementia, TBI, Stroke, or others - Dressing Status: mod for ADL deficits - Grooming Status: min for ADL deficits - Toilet Transfer Status: mod for ADL deficits - Tub Transfer Status: mod - Shower Transfer Status: min - Wheel Chair to Bed Transfer Status: mod for ADL deficits FUNCTIONAL STATUS: UPDATED AT WEEKLY TEAM CONFERENCE - Bladder Same accident frequency: 7-Ind - No accidents in the past 7 days - Bowel Same accident frequency: 7-Ind - No accidents in the past 7 days - Walking Same score based on distance walked: 0(N/A) Same score based on distance walked: 2(50-149ft) - Wheelchair Same score based on distance traveled: 0(N/A) FUNCTIONAL STATUS: - Self-Care A. Eating Ind B. Grooming sup C. Bathing Peace D. Dressing - Upper Peace E. Dressing - Lower modA F. Toileting Peace - Sphincter Control G. Bladder control Peace H. Bowel control Peace - Transfers Control I. Bed/Chair/Wheelchair Peace J. Toilet Peace K. Tub/Shower modA - Locomotion L. Walk/Wheelchair (B) Peace M. Stairs modA - Communication N. Comprehension (B) Peace O. Expression (B) Peace - Social Cognition P. Social Interaction Peace Q. Problem Solving Peace R. Memory Peace - Endurance Good - Balance Good - Safety Awareness Fair QI SCORES: - Self-Care A. Eating 03-Partial/moderate assistance B. Oral hygiene 03-Partial/moderate assistance C. Toileting hygiene E. Shower/bathe self 02-Substantial/maximal assistance F. Upper body dressing 02-Substantial/maximal assistance G. Lower body dressing 02-Substantial/maximal assistance H. Putting on/taking off footwear 88-Not attempted due to medical condition or safety concerns - Mobility A. Roll left and right 03-Partial/moderate assistance B. Sit to lying 03-Partial/moderate assistance C. Lying to sitting on side of bed 03-Partial/moderate assistance D. Sit to stand 03-Partial/moderate assistance E. Chair/oqx-ex-axpry transfer 03-Partial/moderate assistance F. Toilet transfer G. Car transfer 88-Not attempted due to medical condition or safety concerns I. Walk 10 feet 03-Partial/moderate assistance J. Walk 50 feet with two turns 88-Not attempted due to medical condition or safety concerns K. Walk 150 feet 88-Not attempted due to medical condition or safety concerns L. Walking 10 feet on uneven surfaces 88-Not attempted due to medical condition or safety concerns M. 1 step (curb) 88-Not attempted due to medical condition or safety concerns N. 4 steps 88-Not attempted due to medical condition or safety concerns O. 12 steps 88-Not attempted due to medical condition or safety concerns P. Picking up object 88-Not attempted due to medical condition or safety concerns R. Wheel 50 feet with two turns 88-Not attempted due to medical condition or safety concerns S. Wheel 150 feet 88-Not attempted due to medical condition or safety concerns - Bladder and Bowel Bladder continence Bowel continence - Endurance Fair - Balance Fair - Safety Awareness Fair [facility]RENT [facility]. DEFICITS: Self-Care, Mobility, Endurance, Balance, and Safety Awareness SIGNATURE PANEL: (CDT)
[2020-09-23] MEDS: ATORVASTATIN 40 MG TAB PO SCH (19:42)
[2020-09-23] MEDS: ENOXAPARIN 40 MG/0.4 ML SQ SCH (19:42)
[2020-09-23] MEDS: DOCUSATE NA/SENNA CONC 1 TAB PO PRN (19:44)
[2020-09-24] MEDS: LEVOTHYROXINE SOD 0.075 MG TAB PO SCH (06:32)
[2020-09-24] MEDS: PANTOPRAZOLE 40MG TABLET PO SCH (06:32)
[2020-09-24] MEDS: ASPIRIN 81 MG CHEWABLE TABLET PO SCH (08:14)
[2020-09-24] MEDS: OXcarbazepine 150 MG TAB PO SCH ×2 (08:14→19:55)
[2020-09-24] MEDS: FUROSEMIDE 20 MG TABLET PO SCH (08:15)
[2020-09-24] MEDS: FOLIC ACID 1 MG TABLET PO SCH (08:15)
[2020-09-24] MEDS: ATORVASTATIN 40 MG TAB PO SCH (19:55)
[2020-09-24] MEDS: ENOXAPARIN 40 MG/0.4 ML SQ SCH (19:56)
[2020-09-25 06:14] LABS: Absolute Lymphocytes (CBC) 1.6 K/uL (0.7-4.9); Basophils % 0.7 % (0-1.3); Hematocrit 37.7 % (39.6-49.0); Lymphocytes % 30.8 % (15.3-44.8); MPV 8.5 fL (7.6-11.3); RBC Red Blood Cell Count 4.15 M/uL (4.33-5.43)
[2020-09-25 06:32] LABS: Albumin 3.1 g/dL (3.4-5.0); Magnesium 2.1 mg/dL (1.8-2.4); Potassium 4.3 mmol/L (3.5-5.1); Prealbumin 18.4 mg/dL (20-40)
[2020-09-25] MEDS: PANTOPRAZOLE 40MG TABLET PO SCH (06:51)
[2020-09-25] MEDS: LEVOTHYROXINE SOD 0.075 MG TAB PO SCH (06:51)
[2020-09-25] MEDS: FOLIC ACID 1 MG TABLET PO SCH (09:07)
[2020-09-25] MEDS: ASPIRIN 81 MG CHEWABLE TABLET PO SCH (09:08)
[2020-09-25] MEDS: FUROSEMIDE 20 MG TABLET PO SCH (09:08)
[2020-09-25] MEDS: OXcarbazepine 150 MG TAB PO SCH ×2 (09:08→19:24)
--- NOTE | 2020-09-25 18:37 | R.PN ---
PROGRESS NOTES ENCOUNTER DATE AND TIME: 09/25/2020 18:34 (CDT) NAME SONIA MONTANA DATE OF : 1930 DATE OF ADMISSION: 09/12/2020 18:44 (CDT) Ischemic stroke in left periventricular and basal ganglia region, right F/A/L weaknessCHIEF COMPLAINT : Stroke with right F/A/L weakness SUBJECTIVE: Pt denied any Shortness of Breath. Pt denied any depression. Ambulated 1000' with standby assistance using a rolling walker. Mobilized wheelchair 250' with standb y assistance. WBC 5.2, Hgb 12.5, Aquatic Instructor increased to 1.40, Prealbumin 18.4. VITAL SIGNS Temperature: 97.4 F SBP/DBP: 121/75 Pulse: 65 Resp: 16 MEDICATION ALLERGIES: MEPERIDINE HCI - ADVERSE REACTION ENVIRONMENTAL ALLERGIES: - Substance Allergies None Known - Other Allergies None Known NURSING: - Shower allowing shower - Bladder care per protocol - Skin care per protocol PRECAUTIONS: - Weight Bearing Precaution WBAT right LE ACTIVITIES OOB only with supervision THERAPIES: - Occupational Therapy Cognitive Retraining. Visual Perceptual Training. - Dietary and Nutrition Adequate Nutrition. Nutritional Education. Nutritional Supplements. - Speech Therapy Cognitive Training. Expressive Language Skills. Memory Strategies. Receptive Language Skills. Speech Intelligibility Training. PHYSICAL EXAM - Gen Alert and awake Lying in bed No apparent distress Oriented to: person, time, and place - Skin No breakdown Atraumatic - Eyes Poor vision bilaterally - ENMT No abnormalities - Neck No abnormalities - CVS RRR - Chest No abnormalities - Abd + bowel sounds - GI Soft Deferred - No abnormalities - Ext Mild edema in both lower extremities. - MSK 4+/5 weakness in right upper and lower extremities - Neuro 4/5 strength in the right upper and lower extremity mild right sided incoordination and gait ataxia. - Psych No abnormalities ASSESSMENT: Pt. is a 89 yo Right-handed male.On 09/12/2020 Pt. presented to [facility] with sudden o nset of right-side weakness.On 09/12/2020 he was admitted to [facility] with diagnosis I schemic stroke in left periventricular and basal ganglia region, right F/A/L weakness.His impairment category is Stroke 01 - Right Body (Left Brain) (01.2).Pre-morbidly, Pt. was independent/mod-I in Lo comotion, Safety Awareness, and Self-Care; and he had good Sphincter Control, Transfers Control, Soci al Cognition, Balance, and Endurance.Currently, he has deficits of Locomotion, Safety Awareness, Josephine nce, Transfers Control, Sphincter Control, Self-Care, and Communication.Pt. is now referred to [facility] for acute in-patient rehabilitation in order to maximize patient's functi onal independence in activities of daily living, strength, ROM, and mobility.- Rehab Goal Patient has realistic goal of being discharged at assistance level 7-Ind to reside at Home with Fami ly/Relatives. MDM/PLAN: - Physical Therapy Weakness - to improve, our physical therapists will perform initial evaluation of pt's status upon a dmission and devise an individualized program for Aquatic Therapy, Neuromuscular Reeducation, and Str engthening Poor balance - to improve, our physical therapists will perform initial evaluation of pt's status up on admission and devise an individualized program for Balance Training Inability to transfer - to improve, our physical therapists will perform initial evaluation of pt's status upon admission and devise an individualized program for Bed mobility Need in caregiver upon discharge - to improve, our physical therapists will perform initial evaluati on of pt's status upon admission and devise an individualized program for Caregiver Training Gait dysfunction - to improve, our physical therapists will perform initial evaluation of pt's statu s upon admission and devise an individualized program for Gait Training, and Wheel Chair mobility Need for home safety evaluation - to improve, our physical therapists will perform initial evaluatio n of pt's status upon admission and devise an individualized program for Home Evaluation New precaution - to improve, our physical therapists will perform initial evaluation of pt's status upon admission and devise an individualized program for Patient precaution education Edema - to improve, our physical therapists will perform initial evaluation of pt's status upon admi ssion and devise an individualized program for Elevation Training, and Lymphedema Therapy - Occupational Therapy Weakness - to improve, our occupation therapists will perform initial evaluation of pt's status upon admission and devise an individualized program for Aquatic Therapy, Balance, Endurance, UE ROM, and UE strengthening ADL deficits - to improve, our occupation therapists will perform initial evaluation of pt's status upon admission and devise an individualized program for Bathing, Bed mobility, Community Reintegratio n, Cooking, Dressing, Eating, Fine Motor Skills, Grooming, Homemaking, Kitchen Mobility, Laundry, Pat ient Education, Safety Awareness, Splinting - Positioning, Transfers(Toilet, Tub, Shower), and Wheel Chair Management Need for home care provider - to improve, our occupation therapists will perform initial evaluation of pt's status upon admission and devise an individualized program for Caregiver Training - Other See attached MAR (Medication Administration Record) - Diet Type Continue Regular - Diet - Liquid Texture Continue Regular - Tube Feed Continue N/A - Bladder care per protocol - Weight Bearing Precaution WBAT right LE - Skin care per protocol - Diet - Solid Texture Continue Regular - Shower allowing shower for Dementia, TBI, Stroke, or others - Dressing Status: mod for ADL deficits - Grooming Status: min for ADL deficits - Toilet Transfer Status: mod for ADL deficits - Tub Transfer Status: mod - Shower Transfer Status: min - Wheel Chair to Bed Transfer Status: mod for ADL deficits FUNCTIONAL STATUS: UPDATED AT WEEKLY TEAM CONFERENCE - Bladder Same accident frequency: 7-Ind - No accidents in the past 7 days - Bowel Same accident frequency: 7-Ind - No accidents in the past 7 days - Walking Same score based on distance walked: 0(N/A) Same score based on distance walked: 2(50-149ft) - Wheelchair Same score based on distance traveled: 0(N/A) FUNCTIONAL STATUS: - Self-Care A. Eating Ind B. Grooming sup C. Bathing Peace D. Dressing - Upper Peace E. Dressing - Lower modA F. Toileting Peace - Sphincter Control G. Bladder control Peace H. Bowel control Peace - Transfers Control I. Bed/Chair/Wheelchair Peace J. Toilet Peace K. Tub/Shower modA - Locomotion L. Walk/Wheelchair (B) Peace M. Stairs modA - Communication N. Comprehension (B) Peace O. Expression (B) Peace - Social Cognition P. Social Interaction Peace Q. Problem Solving Peace R. Memory Peace - Endurance Good - Balance Good - Safety Awareness Fair QI SCORES: - Self-Care A. Eating 03-Partial/moderate assistance B. Oral hygiene 03-Partial/moderate assistance C. Toileting hygiene E. Shower/bathe self 02-Substantial/maximal assistance F. Upper body dressing 02-Substantial/maximal assistance G. Lower body dressing 02-Substantial/maximal assistance H. Putting on/taking off footwear 88-Not attempted due to medical condition or safety concerns - Mobility A. Roll left and right 03-Partial/moderate assistance B. Sit to lying 03-Partial/moderate assistance C. Lying to sitting on side of bed 03-Partial/moderate assistance D. Sit to stand 03-Partial/moderate assistance E. Chair/kpi-wi-vpwal transfer 03-Partial/moderate assistance F. Toilet transfer G. Car transfer 88-Not attempted due to medical condition or safety concerns I. Walk 10 feet 03-Partial/moderate assistance J. Walk 50 feet with two turns 88-Not attempted due to medical condition or safety concerns K. Walk 150 feet 88-Not attempted due to medical condition or safety concerns L. Walking 10 feet on uneven surfaces 88-Not attempted due to medical condition or safety concerns M. 1 step (curb) 88-Not attempted due to medical condition or safety concerns N. 4 steps 88-Not attempted due to medical condition or safety concerns O. 12 steps 88-Not attempted due to medical condition or safety concerns P. Picking up object 88-Not attempted due to medical condition or safety concerns R. Wheel 50 feet with two turns 88-Not attempted due to medical condition or safety concerns S. Wheel 150 feet 88-Not attempted due to medical condition or safety concerns - Bladder and Bowel Bladder continence Bowel continence - Endurance Fair - Balance Fair - Safety Awareness Fair CURRENT [facility]. DEFICITS: Self-Care, Mobility, Endurance, Balance, and Safety Awareness SIGNATURE PANEL: (CDT)
[2020-09-25] MEDS: ATORVASTATIN 40 MG TAB PO SCH (19:23)
[2020-09-25] MEDS: ENOXAPARIN 40 MG/0.4 ML SQ SCH (19:24)
[2020-09-26] MEDS: PANTOPRAZOLE 40MG TABLET PO SCH (06:42)
[2020-09-26] MEDS: LEVOTHYROXINE SOD 0.075 MG TAB PO SCH (06:42)
[2020-09-26] MEDS: ASPIRIN 81 MG CHEWABLE TABLET PO SCH (08:12)
[2020-09-26] MEDS: OXcarbazepine 150 MG TAB PO SCH ×2 (08:12→19:54)
[2020-09-26] MEDS: FOLIC ACID 1 MG TABLET PO SCH (08:12)
[2020-09-26] MEDS: FUROSEMIDE 20 MG TABLET PO SCH (08:12)
--- NOTE | 2020-09-26 10:01 | P.RH.PN ---
Estimated Length of Stay: 19 Expected Discharge Date: 09/30/20 Discharge Disposition Plan: Home Family Support: Yes Longterm Goal: Mobility, Transfers, Self Care Vital Signs: Last Vital Signs Temp 97.2 F 09/26/20 09:40 Pulse 62 09/26/20 09:40 Resp 14 09/26/20 09:40 BP 128/78 09/26/20 09:40 Pulse Ox 98 09/26/20 09:40 Laboratory: Laboratory Last Values WBC 5.20 K/uL (4.3-10.9) D 09/25/20 06:03 RBC 4.15 M/uL (4.33-5.43) L 09/25/20 06:03 Hgb 12.5 g/dL (13.6-17.9) L 09/25/20 06:03 Hct 37.7 % (39.6-49.0) L 09/25/20 06:03 MCV 90.8 fL (80-100) 09/25/20 06:03 MCH 30.1 pg (27.0-35.0) 09/25/20 06:03 MCHC 33.2 g/dL (32.0-36.0) 09/25/20 06:03 RDW 13.9 % (12.1-15.2) 09/25/20 06:03 Plt Count 160 K/uL (152-406) D 09/25/20 06:03 MPV 8.5 fL (7.6-11.3) 09/25/20 06:03 Neutrophils % 53.0 % (41.7-73.7) 09/25/20 06:03 Lymphocytes % 30.8 % (15.3-44.8) 09/25/20 06:03 Monocytes % 12.4 % (3.3-12.3) H 09/25/20 06:03 Eosinophils % 3.1 % (0-4.4) 09/25/20 06:03 Basophils % 0.7 % (0-1.3) 09/25/20 06:03 Absolute Neutrophils 2.8 K/uL (1.8-8.0) 09/25/20 06:03 Absolute Lymphocytes 1.6 K/uL (0.7-4.9) 09/25/20 06:03 Absolute Monocytes 0.6 K/uL (0.1-1.3) 09/25/20 06:03 Absolute Eosinophils 0.2 K/uL (0-0.5) 09/25/20 06:03 Absolute Basophils 0.0 K/uL (0-0.5) 09/25/20 06:03 Sodium 143 mmol/L (136-145) 09/25/20 06:03 Potassium 4.3 mmol/L (3.5-5.1) 09/25/20 06:03 Chloride 113 mmol/L (98-107) H 09/25/20 06:03 Carbon Dioxide 26 mmol/L (21-32) 09/25/20 06:03 BUN 26 mg/dL (7-18) H 09/25/20 06:03 Creatinine 1.40 mg/dL (0.55-1.3) H 09/25/20 06:03 Estimated GFR 58 mL/min (=/>90) L 09/25/20 06:03 Glucose 85 mg/dL (74-106) 09/25/20 06:03 Calcium 8.9 mg/dL (8.5-10.1) 09/25/20 06:03 Magnesium 2.1 mg/dL (1.8-2.4) 09/25/20 06:03 Albumin 3.1 g/dL (3.4-5.0) L 09/25/20 06:03 Prealbumin 18.4 mg/dL (20-40) L 09/25/20 06:03 Urine Color Yellow (Yellow) 09/13/20 01:59 Urine Appearance Clear (Clear) 09/13/20 01:59 Urine pH 6.0 (5.0-7.0) 09/13/20 01:59 Ur Specific [place] 1.015 (1.005-1.030) 09/13/20 01:59 Glucose (UA)(Auto) Negative (Negative) 09/13/20 01:59 Urine Ketones Negative (Negative) 09/13/20 01:59 Urine Blood 2+ (Negative) H 09/13/20 01:59 Urine Nitrite Negative (Negative) 09/13/20 01:59 Urine Bilirubin Negative (Negative) 09/13/20 01:59 Urine Urobilinogen 0.2 mg/dL (0.2-1.0) 09/13/20 01:59 Ur Leukocyte Esterase Negative (Negative) 09/13/20 01:59 Urine RBC 10-20 /HPF (NONE SEEN) H 09/13/20 01:59 Urine WBC <5 /HPF (<5) 09/13/20 01:59 Ur Squamous Epith Cells <5 /HPF (NONE SEEN) 09/13/20 01:59 Urine Bacteria <20 /HPF (NONE SEEN) 09/13/20 01:59 Urine Culture Reflexed Not needed 09/13/20 01:59 Urine Total Protein Negative (Negative) 09/13/20 01:59 SARS-CoV-2 RNA (RT-PCR) Negative (NEGATIVE) 09/15/20 16:00 Weight: 171 lb 6.4 oz Wound Present: No Closed Surgical Incision Present: No Negative Pressure Wound Therapy Present: No Physician Update: Labs reviewed and are stable. He is doing well and has 24/7 care at home. He is recovering speech and expression ok. His transfers and ambulation are standby assistance with a walker. Up and down 10 steps with minimum assistance. Summary: Patient's care plan and supervisor intermediates goals have been reviewed and revised as necessary. Please see the Rehabilitation Signature page for all necessary signatures.
[2020-09-26] MEDS: ENOXAPARIN 40 MG/0.4 ML SQ SCH (19:54)
[2020-09-26] MEDS: DOCUSATE NA/SENNA CONC 1 TAB PO PRN (19:54)
[2020-09-26] MEDS: ATORVASTATIN 40 MG TAB PO SCH (19:54)
[2020-09-27 05:46] VITALS: BMI 29.2
[2020-09-27] MEDS: PANTOPRAZOLE 40MG TABLET PO SCH (06:33)
[2020-09-27] MEDS: LEVOTHYROXINE SOD 0.075 MG TAB PO SCH (06:34)
[2020-09-27] MEDS: FOLIC ACID 1 MG TABLET PO SCH (08:26)
[2020-09-27] MEDS: FUROSEMIDE 20 MG TABLET PO SCH (08:26)
[2020-09-27] MEDS: ASPIRIN 81 MG CHEWABLE TABLET PO SCH (08:26)
[2020-09-27] MEDS: OXcarbazepine 150 MG TAB PO SCH ×2 (08:26→19:20)
[2020-09-27] MEDS: LACTULOSE 20 GM/30 ML UCUP PO PRN (12:57)
[2020-09-27] MEDS: ATORVASTATIN 40 MG TAB PO SCH (19:20)
[2020-09-27] MEDS: ENOXAPARIN 40 MG/0.4 ML SQ SCH (19:20)
[2020-09-28] MEDS: PANTOPRAZOLE 40MG TABLET PO SCH (06:22)
[2020-09-28] MEDS: LEVOTHYROXINE SOD 0.075 MG TAB PO SCH (06:22)
[2020-09-28] MEDS: ASPIRIN 81 MG CHEWABLE TABLET PO SCH (08:24)
[2020-09-28] MEDS: FUROSEMIDE 20 MG TABLET PO SCH (08:24)
[2020-09-28] MEDS: OXcarbazepine 150 MG TAB PO SCH ×2 (08:24→19:29)
[2020-09-28] MEDS: FOLIC ACID 1 MG TABLET PO SCH (08:24)
[2020-09-28] MEDS: ENOXAPARIN 40 MG/0.4 ML SQ SCH (19:28)
[2020-09-28] MEDS: ATORVASTATIN 40 MG TAB PO SCH (19:29)
[2020-09-29] MEDS: LEVOTHYROXINE SOD 0.075 MG TAB PO SCH (06:24)
[2020-09-29] MEDS: PANTOPRAZOLE 40MG TABLET PO SCH (06:24)
[2020-09-29] MEDS: FOLIC ACID 1 MG TABLET PO SCH (08:22)
[2020-09-29] MEDS: ASPIRIN 81 MG CHEWABLE TABLET PO SCH (08:23)
[2020-09-29] MEDS: FUROSEMIDE 20 MG TABLET PO SCH (08:23)
[2020-09-29] MEDS: OXcarbazepine 150 MG TAB PO SCH ×2 (08:24→20:13)
--- NOTE | 2020-09-29 17:03 | R.PN ---
PROGRESS NOTES ENCOUNTER DATE AND TIME: 09/29/2020 16:59 (CDT) NAME SONIA MONTANA DATE OF : 1930 DATE OF ADMISSION: 09/12/2020 18:44 (CDT) Ischemic stroke in left periventricular and basal ganglia region, right F/A/L weaknessCHIEF COMPLAINT : Stroke with right F/A/L weakness SUBJECTIVE: Pt denied any Shortness of Breath. Pt denied any depression. Ambulated 750' with contact guard assistance using a rolling walker. Mobilized wheelchair 250' with s tandby assistance. Up and down 10 steps with minimum assistance. WBC 5.2, Hgb 12.5, Chemistry Tutor increased to 1.40, Prealbumin 18.4. VITAL SIGNS Temperature: 97.8 F SBP/DBP: 135/79 Pulse: 64 Resp: 16 MEDICATION ALLERGIES: MEPERIDINE HCI - ADVERSE REACTION ENVIRONMENTAL ALLERGIES: - Substance Allergies None Known - Other Allergies None Known NURSING: - Shower allowing shower - Bladder care per protocol - Skin care per protocol PRECAUTIONS: - Weight Bearing Precaution WBAT right LE ACTIVITIES OOB only with supervision THERAPIES: - Occupational Therapy Cognitive Retraining. Visual Perceptual Training. - Dietary and Nutrition Adequate Nutrition. Nutritional Education. Nutritional Supplements. - Speech Therapy Cognitive Training. Expressive Language Skills. Memory Strategies. Receptive Language Skills. Speech Intelligibility Training. PHYSICAL EXAM - Gen Alert and awake Lying in bed No apparent distress Oriented to: person, time, and place - Skin No breakdown Atraumatic - Eyes Poor vision bilaterally - ENMT No abnormalities - Neck No abnormalities - CVS RRR - Chest No abnormalities - Abd + bowel sounds - GI Soft Deferred - No abnormalities - Ext Mild edema in both lower extremities. - MSK 4+/5 weakness in right upper and lower extremities - Neuro 4/5 strength in the right upper and lower extremity mild right sided incoordination and gait ataxia. - Psych No abnormalities ASSESSMENT: Pt. is a 89 yo Right-handed male.On 09/12/2020 Pt. presented to [facility] with sudden o nset of right-side weakness.On 09/12/2020 he was admitted to [facility] with diagnosis I schemic stroke in left periventricular and basal ganglia region, right F/A/L weakness.His impairment category is Stroke 01 - Right Body (Left Brain) (01.2).Pre-morbidly, Pt. was independent/mod-I in Lo comotion, Safety Awareness, and Self-Care; and he had good Sphincter Control, Transfers Control, Soci al Cognition, Balance, and Endurance.Currently, he has deficits of Locomotion, Safety Awareness, Bally nce, Transfers Control, Sphincter Control, Self-Care, and Communication.Pt. is now referred to [facility] for acute in-patient rehabilitation in order to maximize patient's functi onal independence in activities of daily living, strength, ROM, and mobility.- Rehab Goal Patient has realistic goal of being discharged at assistance level 7-Ind to reside at Home with Fami ly/Relatives. MDM/PLAN: - Physical Therapy Weakness - to improve, our physical therapists will perform initial evaluation of pt's status upon a dmission and devise an individualized program for Aquatic Therapy, Neuromuscular Reeducation, and Str engthening Poor balance - to improve, our physical therapists will perform initial evaluation of pt's status up on admission and devise an individualized program for Balance Training Inability to transfer - to improve, our physical therapists will perform initial evaluation of pt's status upon admission and devise an individualized program for Bed mobility Need in caregiver upon discharge - to improve, our physical therapists will perform initial evaluati on of pt's status upon admission and devise an individualized program for Caregiver Training Gait dysfunction - to improve, our physical therapists will perform initial evaluation of pt's statu s upon admission and devise an individualized program for Gait Training, and Wheel Chair mobility Need for home safety evaluation - to improve, our physical therapists will perform initial evaluatio n of pt's status upon admission and devise an individualized program for Home Evaluation New precaution - to improve, our physical therapists will perform initial evaluation of pt's status upon admission and devise an individualized program for Patient precaution education Edema - to improve, our physical therapists will perform initial evaluation of pt's status upon admi ssion and devise an individualized program for Elevation Training, and Lymphedema Therapy - Occupational Therapy Weakness - to improve, our occupation therapists will perform initial evaluation of pt's status upon admission and devise an individualized program for Aquatic Therapy, Balance, Endurance, UE ROM, and UE strengthening ADL deficits - to improve, our occupation therapists will perform initial evaluation of pt's status upon admission and devise an individualized program for Bathing, Bed mobility, Community Reintegratio n, Cooking, Dressing, Eating, Fine Motor Skills, Grooming, Homemaking, Kitchen Mobility, Laundry, Pat ient Education, Safety Awareness, Splinting - Positioning, Transfers(Toilet, Tub, Shower), and Wheel Chair Management Need for caretaker resort - to improve, our occupation therapists will perform initial evaluation of pt's status upon admission and devise an individualized program for Caregiver Training - Other See attached MAR (Medication Administration Record) - Diet Type Continue Regular - Diet - Liquid Texture Continue Regular - Tube Feed Continue N/A - Bladder care per protocol - Weight Bearing Precaution WBAT right LE - Skin care per protocol - Diet - Solid Texture Continue Regular - Shower allowing shower for Dementia, TBI, Stroke, or others - Dressing Status: mod for ADL deficits - Grooming Status: min for ADL deficits - Toilet Transfer Status: mod for ADL deficits - Tub Transfer Status: mod - Shower Transfer Status: min - Wheel Chair to Bed Transfer Status: mod for ADL deficits FUNCTIONAL STATUS: UPDATED AT WEEKLY TEAM CONFERENCE - Bladder Same accident frequency: 7-Ind - No accidents in the past 7 days - Bowel Same accident frequency: 7-Ind - No accidents in the past 7 days - Walking Same score based on distance walked: 0(N/A) Same score based on distance walked: 2(50-149ft) - Wheelchair Same score based on distance traveled: 0(N/A) FUNCTIONAL STATUS: - Self-Care A. Eating Ind B. Grooming sup C. Bathing Peace D. Dressing - Upper Peace E. Dressing - Lower modA F. Toileting Peace - Sphincter Control G. Bladder control Peace H. Bowel control Peace - Transfers Control I. Bed/Chair/Wheelchair Peace J. Toilet Peace K. Tub/Shower modA - Locomotion L. Walk/Wheelchair (B) Peace M. Stairs modA - Communication N. Comprehension (B) Peace O. Expression (B) Peace - Social Cognition P. Social Interaction Peace Q. Problem Solving Peace R. Memory Peace - Endurance Good - Balance Good - Safety Awareness Fair QI SCORES: - Self-Care A. Eating 03-Partial/moderate assistance B. Oral hygiene 03-Partial/moderate assistance C. Toileting hygiene E. Shower/bathe self 02-Substantial/maximal assistance F. Upper body dressing 02-Substantial/maximal assistance G. Lower body dressing 02-Substantial/maximal assistance H. Putting on/taking off footwear 88-Not attempted due to medical condition or safety concerns - Mobility A. Roll left and right 03-Partial/moderate assistance B. Sit to lying 03-Partial/moderate assistance C. Lying to sitting on side of bed 03-Partial/moderate assistance D. Sit to stand 03-Partial/moderate assistance E. Chair/[id number] transfer 03-Partial/moderate assistance F. Toilet transfer G. Car transfer 88-Not attempted due to medical condition or safety concerns I. Walk 10 feet 03-Partial/moderate assistance J. Walk 50 feet with two turns 88-Not attempted due to medical condition or safety concerns K. Walk 150 feet 88-Not attempted due to medical condition or safety concerns L. Walking 10 feet on uneven surfaces 88-Not attempted due to medical condition or safety concerns M. 1 step (curb) 88-Not attempted due to medical condition or safety concerns N. 4 steps 88-Not attempted due to medical condition or safety concerns O. 12 steps 88-Not attempted due to medical condition or safety concerns P. Picking up object 88-Not attempted due to medical condition or safety concerns R. Wheel 50 feet with two turns 88-Not attempted due to medical condition or safety concerns S. Wheel 150 feet 88-Not attempted due to medical condition or safety concerns - Bladder and Bowel Bladder continence Bowel continence - Endurance Fair - Balance Fair - Safety Awareness Fair CURRENT [facility]. DEFICITS: Self-Care, Mobility, Endurance, Balance, and Safety Awareness SIGNATURE PANEL: (CDT)
[2020-09-29] MEDS: ENOXAPARIN 40 MG/0.4 ML SQ SCH (20:13)
[2020-09-29] MEDS: ATORVASTATIN 40 MG TAB PO SCH (20:14)
[2020-09-30] MEDS: PANTOPRAZOLE 40MG TABLET PO SCH (06:55)
[2020-09-30] MEDS: LEVOTHYROXINE SOD 0.075 MG TAB PO SCH (06:57)
[2020-09-30 07:21] VITALS: BP 124/74; TEMP 97
[2020-09-30] MEDS: ASPIRIN 81 MG CHEWABLE TABLET PO SCH (08:10)
[2020-09-30] MEDS: FUROSEMIDE 20 MG TABLET PO SCH (08:10)
[2020-09-30] MEDS: FOLIC ACID 1 MG TABLET PO SCH (08:10)
[2020-09-30] MEDS: OXcarbazepine 150 MG TAB PO SCH (08:12)
--- NOTE | 2020-09-30 17:20 | R.PN ---
PROGRESS NOTES ENCOUNTER DATE AND TIME: 09/30/2020 12:15 (CDT) NAME SONIA MONTANA DATE OF : 1930 DATE OF ADMISSION: 09/12/2020 18:44 (CDT) Ischemic stroke in left periventricular and basal ganglia region, right F/A/L weaknessCHIEF COMPLAINT : Stroke with right F/A/L weakness SUBJECTIVE: Pt denied any Shortness of Breath. Pt denied any depression. Ambulated 525' with standby assistance using a rolling walker. Mobilized wheelchair 250' with standby assistance. Up and down 15 steps with standby assistance. WBC 5.2, Hgb 12.5, Tax Staff Accountant increased to 1.40, Prealbumin 18.4. VITAL SIGNS Temperature: 97.0 F SBP/DBP: 124/74 Pulse: 59 Resp: 15 MEDICATION ALLERGIES: MEPERIDINE HCI - ADVERSE REACTION ENVIRONMENTAL ALLERGIES: - Substance Allergies None Known - Other Allergies None Known NURSING: - Shower allowing shower - Bladder care per protocol - Skin care per protocol PRECAUTIONS: - Weight Bearing Precaution WBAT right LE ACTIVITIES OOB only with supervision THERAPIES: - Occupational Therapy Cognitive Retraining. Visual Perceptual Training. - Dietary and Nutrition Adequate Nutrition. Nutritional Education. Nutritional Supplements. - Speech Therapy Cognitive Training. Expressive Language Skills. Memory Strategies. Receptive Language Skills. Speech Intelligibility Training. PHYSICAL EXAM - Gen Alert and awake Lying in bed No apparent distress Oriented to: person, time, and place - Skin No breakdown Atraumatic - Eyes Poor vision bilaterally - ENMT No abnormalities - Neck No abnormalities - CVS RRR - Chest No abnormalities - Abd + bowel sounds - GI Soft Deferred - No abnormalities - Ext Mild edema in both lower extremities. - MSK 4+/5 weakness in right upper and lower extremities - Neuro 4/5 strength in the right upper and lower extremity mild right sided incoordination and gait ataxia. - Psych No abnormalities ASSESSMENT: Pt. is a 89 yo Right-handed male.On 09/12/2020 Pt. presented to [facility] with sudden o nset of right-side weakness.On 09/12/2020 he was admitted to [facility] with diagnosis I schemic stroke in left periventricular and basal ganglia region, right F/A/L weakness.His impairment category is Stroke 01 - Right Body (Left Brain) (01.2).Pre-morbidly, Pt. was independent/mod-I in Lo comotion, Safety Awareness, and Self-Care; and he had good Sphincter Control, Transfers Control, Soci al Cognition, Balance, and Endurance.Currently, he has deficits of Locomotion, Safety Awareness, Song nce, Transfers Control, Sphincter Control, Self-Care, and Communication.Pt. is now referred to [facility] for acute in-patient rehabilitation in order to maximize patient's functi onal independence in activities of daily living, strength, ROM, and mobility.- Rehab Goal Patient has realistic goal of being discharged at assistance level 7-Ind to reside at Home with Fami ly/Relatives. MDM/PLAN: - Physical Therapy Weakness - to improve, our physical therapists will perform initial evaluation of pt's status upon a dmission and devise an individualized program for Aquatic Therapy, Neuromuscular Reeducation, and Str engthening Poor balance - to improve, our physical therapists will perform initial evaluation of pt's status up on admission and devise an individualized program for Balance Training Inability to transfer - to improve, our physical therapists will perform initial evaluation of pt's status upon admission and devise an individualized program for Bed mobility Need in caregiver upon discharge - to improve, our physical therapists will perform initial evaluati on of pt's status upon admission and devise an individualized program for Caregiver Training Gait dysfunction - to improve, our physical therapists will perform initial evaluation of pt's statu s upon admission and devise an individualized program for Gait Training, and Wheel Chair mobility Need for home safety evaluation - to improve, our physical therapists will perform initial evaluatio n of pt's status upon admission and devise an individualized program for Home Evaluation New precaution - to improve, our physical therapists will perform initial evaluation of pt's status upon admission and devise an individualized program for Patient precaution education Edema - to improve, our physical therapists will perform initial evaluation of pt's status upon admi ssion and devise an individualized program for Elevation Training, and Lymphedema Therapy - Occupational Therapy Weakness - to improve, our occupation therapists will perform initial evaluation of pt's status upon admission and devise an individualized program for Aquatic Therapy, Balance, Endurance, UE ROM, and UE strengthening ADL deficits - to improve, our occupation therapists will perform initial evaluation of pt's status upon admission and devise an individualized program for Bathing, Bed mobility, Community Reintegratio n, Cooking, Dressing, Eating, Fine Motor Skills, Grooming, Homemaking, Kitchen Mobility, Laundry, Pat ient Education, Safety Awareness, Splinting - Positioning, Transfers(Toilet, Tub, Shower), and Wheel Chair Management Need for animal daycare provider - to improve, our occupation therapists will perform initial evaluation of pt's status upon admission and devise an individualized program for Caregiver Training - Other See attached MAR (Medication Administration Record) - Diet Type Continue Regular - Diet - Liquid Texture Continue Regular - Tube Feed Continue N/A - Bladder care per protocol - Weight Bearing Precaution WBAT right LE - Skin care per protocol - Diet - Solid Texture Continue Regular - Shower allowing shower for Dementia, TBI, Stroke, or others - Dressing Status: mod for ADL deficits - Grooming Status: min for ADL deficits - Toilet Transfer Status: mod for ADL deficits - Tub Transfer Status: mod - Shower Transfer Status: min - Wheel Chair to Bed Transfer Status: mod for ADL deficits FUNCTIONAL STATUS: UPDATED AT WEEKLY TEAM CONFERENCE - Bladder Same accident frequency: 7-Ind - No accidents in the past 7 days - Bowel Same accident frequency: 7-Ind - No accidents in the past 7 days - Walking Same score based on distance walked: 0(N/A) Same score based on distance walked: 2(50-149ft) - Wheelchair Same score based on distance traveled: 0(N/A) FUNCTIONAL STATUS: - Self-Care A. Eating Ind B. Grooming sup C. Bathing Peace D. Dressing - Upper Peace E. Dressing - Lower modA F. Toileting Peace - Sphincter Control G. Bladder control Peace H. Bowel control Peace - Transfers Control I. Bed/Chair/Wheelchair Peace J. Toilet Peace K. Tub/Shower modA - Locomotion L. Walk/Wheelchair (B) Peace M. Stairs modA - Communication N. Comprehension (B) Peace O. Expression (B) Peace - Social Cognition P. Social Interaction Peace Q. Problem Solving Peace R. Memory Peace - Endurance Good - Balance Good - Safety Awareness Fair QI SCORES: - Self-Care A. Eating 03-Partial/moderate assistance B. Oral hygiene 03-Partial/moderate assistance C. Toileting hygiene E. Shower/bathe self 02-Substantial/maximal assistance F. Upper body dressing 02-Substantial/maximal assistance G. Lower body dressing 02-Substantial/maximal assistance H. Putting on/taking off footwear 88-Not attempted due to medical condition or safety concerns - Mobility A. Roll left and right 03-Partial/moderate assistance B. Sit to lying 03-Partial/moderate assistance C. Lying to sitting on side of bed 03-Partial/moderate assistance D. Sit to stand 03-Partial/moderate assistance E. Chair/lbi-jj-tnyad transfer 03-Partial/moderate assistance F. Toilet transfer G. Car transfer 88-Not attempted due to medical condition or safety concerns I. Walk 10 feet 03-Partial/moderate assistance J. Walk 50 feet with two turns 88-Not attempted due to medical condition or safety concerns K. Walk 150 feet 88-Not attempted due to medical condition or safety concerns L. Walking 10 feet on uneven surfaces 88-Not attempted due to medical condition or safety concerns M. 1 step (curb) 88-Not attempted due to medical condition or safety concerns N. 4 steps 88-Not attempted due to medical condition or safety concerns O. 12 steps 88-Not attempted due to medical condition or safety concerns P. Picking up object 88-Not attempted due to medical condition or safety concerns R. Wheel 50 feet with two turns 88-Not attempted due to medical condition or safety concerns S. Wheel 150 feet 88-Not attempted due to medical condition or safety concerns - Bladder and Bowel Bladder continence Bowel continence - Endurance Fair - Balance Fair - Safety Awareness Fair CURRENT [facility]. DEFICITS: Self-Care, Mobility, Endurance, Balance, and Safety Awareness SIGNATURE PANEL: (CDT)
== END 2020-09-30 13:55 | disposition home health service (06) | DRG 57 ==
LOC: 5TH 18:08
PROVIDERS: ADMIT Psychiatry & Neurology Neurology with Special Qualifications in Child Neurology; ATTEND Psychiatry & Neurology Neurology with Special Qualifications in Child Neurology
DX: I69.351 Hemiplegia and hemiparesis following cerebral infarction affecting right dominant side (principal); E03.9 Hypothyroidism, unspecified; I50.9 Heart failure, unspecified; G40.909 Epilepsy, unspecified, not intractable, without status epilepticus; K21.9 Gastro-esophageal reflux disease without esophagitis; Z20.822 Contact with and (suspected) exposure to COVID-19
CPT/HCPCS: 36415; 80048; 81003; 81015; 82040; 83735; 84134; 85025; 87086; 87088; 92507; 92523; 97110; 97112; 97116; 97163; 97530; 97542; J1650; U0002; U0003

== ENCOUNTER 2021-05-28 17:15 | Observation (INO) | payer OTHER ==
--- OUTSIDE RECORDS SUMMARY | 2021-05-28 17:29 | XMS REPORT | Continuity of Care Document ---
:1930 Author Organization [facility] t Address [address] [place] [address] Care Team Providers Name Role Phone Anthony Marcus Primary Care Physician Evaristo BUENO Attending Clinician Unavailable OSCAR GARCIA Attending Clinician Unavailable HEIDY WATKINS Attending Clinician Unavailable HERSON_Julia Attending Clinician Unavailable Elroy Marcus Attending Clinician [phone] Evaristo Bueno MD Attending Clinician Only, Test Attending Clinician Unavailable Pob, Lab Main Attending Clinician Unavailable Doctor Unassigned, Name Attending Clinician Unavailable Edwardo DALTON, H Attending Clinician Rolo LEACH Attending Clinician Unavailable Joselyn WETZEL, T Attending Clinician Unavailable Demetria DALTON, A Attending Clinician Evaristo GUARDADO Attending Clinician Unavailable LEXUS GARCIA Attending Clinician Unavailable SHANIKA Attending Clinician Unavailable 1, Lab Attending Clinician Unavailable Topher Gallardo MD Attending Clinician Unavailable Evaristo BUENO Admitting Clinician Unavailable JOSEOSCAR Admitting Clinician Unavailable HEIDY WATKINS Admitting Clinician Unavailable ERICKSON_R Admitting Clinician Unavailable AMINTA TO Admitting Clinician Unavailable HE Admitting Clinician Unavailable Payers Payer Name Policy Type Policy Number Effective Date Expiration Date Reginald dubois MEDICARE PART A [id number] 1997 \\T\\ B 00:00:00 [facility] [id number] MEDICARE B-[place]: [id number] 1997 [employer] 00:00:00 Problems Condition Condition Condition Status Onset Resolution Last Treating Co mments Source Name Details Category Date Date Treatment Clinician Date Seizure Seizure Disease Active [facility] TBI TBI Disease Active 2019- [facility] (traumatic (traumatic 09-21 Camilla kes - brain brain 00:00: Medical injury) injury) 00 Center Dementia Dementia Disease [facility] [place] Acute Acute Disease Active 2019- [facility] encephalop encephalop 6-05 Camilla kes - athy athy 00:00: Medical 00 Center OTHER Diagnosis Active 2019-07-16 Mem oria 3- 21:55:00 l OTHER 00:00: Master 00 Active 07/07/2019 [place] HYPONATREM Diagnosis Active 2019-05-31 Memoria IA 05-17 21:51:00 l 00:00: [place] HYPONATREM 00 IA Active 0 [facility] BLEED Diagnosis Active 2018-042019-04-24 M emoria 2- 22:00:00 l GI BLEED 00:00: [place] 00 Active 04/08/2019 [place] CHRONIC Diagnosis Active 2018-042019-04-17 Me moria HYPONATREM 2-11 21:54:00 l IA CHRONIC 00:00: Master HYPONATREM 00 IA Active 9 [facility] ABNORMAL Diagnosis Active 2018-042019-04-05 M emoria LABS 2-11 22:05:00 l ABNORMAL 00:00: [place] LABS 00 Active 03/28/2019 [facility] [place] AMS Diagnosis Active 2018-042019-03-28 Mem oria 2-11 20:50:00 l AMS 00:00: Master 00 Active 03/28/2019 [facility] S06.5X0S - Diagnosis Active 2018-042019-05-24 Memoria TRAUM 1- 10:29:00 l SUBDR HEM S06.5X0S 00:01: Her addison W/O LOSS - TRAUM 00 OF C SUBDR HEM W/O LOSS OF C Active 03/13/2019 TRINA Thao FALL Diagnosis Active 2018-042019-03-06 Mem oria 05-06 22:18:00 l FALL 00:00: [place] 00 Active 03/06/2019 [facility] SDH Diagnosis Active 2018-042019-03-22 Mem oria 05-06 22:22:00 l SDH 00:00: Master 00 Active 03/06/2019 [facility] SAH Diagnosis Active 2018-042019-03-05 Mem oria 21:43:00 l SAH 00:00: [place] 00 Active 02/14/2019 [facility] SANDY Diagnosis Active 2018-042019-02-15 Memoria BILLING/55 0- 09:53:00 l 15 00:00: [place] SANDY 00 BILLING/55 15 Active 9 [facility] Graves Graves Disease Active Univers disease disease - ity of 00:00: [place] 00 Medical Branch Anticoagul Anticoagul Disease Active U nivers ated with ated with 12-21 ity of warfarin warfarin 00:00: [place] [id number] Medical Branch Cervico-oc Problem Active 2019-08-19 M emoria cipital 04-19 21:09:17 l neuralgia 00:00: Master (finding) Cervico-oc 00 cipital neuralgia (finding) Active 04/19/2013 Problem 08/19/2019 Data migrated from [employer] on 09/17/14. Medical Group,[facility], Dre Rolo Thao,[facility] [place] Coronary Problem Active 2019-08-19 Mem oria arterioscl 04-19 21:09:17 l erosis Coronary 00:00: [place] quiroz (disorder) arterioscl 00 erosis (disorder) Active 04/19/2013 Problem 08/19/2019 Data migrated from [employer] on 09/17/14. [facility], Nathalie Erickson,[facility] [place] Degenerati Problem Active 2012-042019-08-19 M emoria on of 06-10 21:09:17 l cervical 00:00: Master interverte Degenerati 00 bral disc on of (disorder) cervical interverte bral disc (disorder) Active 04/09/2013 Problem 08/19/2019 Data migrated from [employer] on 12/10/14. Medical Group,[facility], Dre, Rolo Thao,[facility], [place] Headache Problem Active 2012-042019-08-19 Mem oria (finding) 06-10 21:09:17 l Headache 00:00: [place] (finding) 00 Active 04/09/2013 Problem 08/19/2019 Data migrated from [employer] on 12/10/14. [facility] Group,[facility], Dre, Rolo Thao,[facility], [place] History of Problem Active 2012-042019-08-19 M emoria - 06-10 21:09:17 l myocardial History 00:00: Her addison infarction of - 00 (context-d myocardial ependent infarction category) (context-d ependent category) Active 04/09/2013 Problem 08/19/2019 Data migrated from [employer] on 12/10/14. Medical Group,[facility], Dre, Rolo Thao,[facility], [place] Nontraumat Problem 2019-03-11 M emoria ic chronic 23:00:38 l subdural Master hemorrhage Nontraumat ic chronic subdural hemorrhage 03/11/2019 [facility] Illness, Problem 2019-05-29 Mem oria unspecifie 22:28:06 l d Illness, [place] unspecifie d 05/29/2019 [facility] Gastrointe Problem Resolve 2019-08-19 Memoria stinal d 21:09:17 l hemorrhage [place] (disorder) Gastrointe stinal hemorrhage (disorder) Resolved Problem 08/19/2019 [facility], [place] Syndrome Problem Resolve 2019-08-19 Me moria of d 21:09:17 l inappropri 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 (disorder) n secretion (disorder) Resolved Problem 08/19/2019 [facility], [place] Atrial Problem Active 2019-08-19 Memor ia fibrillati 21:09:17 l on Atrial Master (disorder) fibrillati on (disorder) Active Problem 08/19/2019 [facility], [place] 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 [place] 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) Active Problem 08/19/2019 [facility], [place] Congestive Problem Active 2019-08-19 M emoria heart 21:09:17 l failure Master (disorder) Congestive heart failure (disorder) Active Problem 08/19/2019 [facility], [place] Fatigue Problem Active 2019-08-19 [place] (finding) 21:09:17 l Fatigue Master (finding) Active Problem 08/19/2019 [facility], Dre,M Rolo Thao,[facility], [place] Hematoma Problem Active 2019-08-19 Mem oria of 21:09:17 l subdural Hematoma Herm ruddy space of of neuraxis subdural (disorder) space of neuraxis (disorder) Active Problem 08/19/2019 [facility], [place] Hypertensi Problem Active 2019-08-19 M emoria ve 21:09:17 l disorder, [place] systemic Hypertensi arterial ve (disorder) disorder, systemic arterial (disorder) Active Problem 08/19/2019 [facility], [place] Hypothyroi Problem Active 2019-08-19 M emoria dism 21:09:17 l (disorder) [place] Hypothyroi dism (disorder) Active Problem 08/19/2019 [facility], [place] Myocardial Problem Active 2019-08-19 M emoria infarction 21:09:17 l (disorder) [place] Myocardial infarction (disorder) Active Problem 08/19/2019 [facility], [place] Pulmonary Problem Active 2019-08-19 Me moria embolism 21:09:17 l (disorder) [place] Pulmonary embolism (disorder) Active Problem 08/19/2019 [facility], Dre,M Rolo Thao,[facility], [place] Sinus Problem Active 2019-08-19 Memor ia bradycardi 21:09:17 l a Sinus [place] (disorder) bradycardi a (disorder) Active Problem 08/19/2019 [facility], [place] Urinary Problem Active 2019-08-19 [place] tract 21:09:17 l infectious Urinary Her addison disease tract (disorder) infectious disease (disorder) Active Problem 08/19/2019 Medical [facility], Dre,M H TRINA Thao,[facility], [place] Asthenia Problem Active 2019-08-19 Mem oria (finding) 21:09:17 l Asthenia [place] (finding) Active Problem 08/19/2019 [facility], Dre,M H TRINA Thao,[facility], [place] HYPO-OSMOL Diagnosis Active 2019-05-31 Memoria ALITY AND 21:51:00 l HYPONATREM [place] IA HYPO-OSMOL ALITY AND HYPONATREM IA Active [facility] TRAUM Diagnosis Active 2019-05-31 Mem oria SUBDR HEM 21:51:00 l W LOC OF TRAUM [place] UNSP SUBDR HEM DURATION, W LOC OF UNSP DURATION, Active [facility] NONTRAUMAT Diagnosis Active 2019-03-22 Memoria IC CHRONIC 22:22:00 l SUBDURAL [place] HEMORRHAGE NONTRAUMAT IC CHRONIC SUBDURAL HEMORRHAGE Active [facility] ILLNESS, Diagnosis Active 2019-05-17 M emoria UNSPECIFIE 12:34:00 l D ILLNESS, [place] UNSPECIFIE D Active [facility] NONTRAUMAT Diagnosis Active 2019-03-05 Memoria IC 21:43:00 l SUBARACHNO [place] ID NONTRAUMAT HEMORRHAGE IC , UN SUBARACHNO ID HEMORRHAGE , UN Active [facility] Low back Low back Problem Active Unive rs pain pain [facility] [place] [facility] Thoracic Thoracic Problem Active Unive rs back pain back pain [facility] [place] [facility] Cervical Cervical Problem Active Unive rs pain pain [facility] of [place] [facility] Allergies, Adverse Reactions, Alerts Allergy Allergy Status Severity Reaction(s) Onset Inactive Treating Comm ents Source Name Type Date Date Clinician MEPERIDI Allergy [facility] (PF[facility] 09-21 [facility] Center Meperidi Propensi Active [facility] (Pf) ty to 09-21 [facility] - adverse 00:00: Medical reaction 00 Center s MEPERIDI DRUG Active Med Hallucinates Un francine NE HCL INGREDI 05-06 ity of 00:00: [place] 00 Medical Branch Meperidi Propensi Active Hallucinatio Univers ne Hcl ty to ns 1-19 ity of adverse 00:00: [place] reaction 00 Medical s to Branch drug Demerol Demerol Active 2012-04 Memoria HCl HCl 2-20 l 06:00: [place] 00 NO KNOWN Allergy Active [facility] Social History Social Habit Start Date Stop Date Quantity Comments Source Exposure to Not sure [facility] SARS-CoV-2 (event) Medica l [place] Social History 2019-07-07 2019-07-07 [facility] 11:12:48 11:12:48 Tobacco use and 2017-06-07 2017-06-07 Never used Universit y [place] exposure 00:00:00 00:00:00 Medical Branch Alcohol intake 2017-06-07 2017-06-07 0 /d [facility] 00:00:00 00:00:00 [facility] Sex Assigned At [birth year] [facility] kes - 00:00:00 00:00:00 [facility] Smoking Status Start Date Stop Date Source Social History [facility] [place] [facility] Medications Ordered Filled Start Stop Current Ordering Indication Dosage Frequency Signature Comments Components Source Medication Medication Date Date Medication? Clinician (SIG) Name Name neomycin-po 2020- No PRN, Unive rs lymyxin-dex 01-07 Starting ity of amethasone 16:16: 20:30 on Tue s (MAXITROL) 00 :30 01/07/21 at Med ical 3.5 1116, Branch mg/g-10,000 Until Tue unit/g-0.1 01/07/21 at % 1530, ophthalmic Routine, ointment Intra-op EPINEPHrine 2020- No PRN, Unive rs 1:1,000 (1 01-07 Starting ity of mg/mL) 16:16: 20:30 on Tue (ADRENALIN) 00 :30 01/07/21 at Me dical injection 1116, Branch Until Tue01/07/21 at 1530, Routine, Intra-op ceFAZolin 2020- No PRN, Univers (ANCEF) 01-07 Starting ity of injection 16:10: 20:30 on Wed [place] 00 :30 01/07/21 at Medical 1110, Branch Until Tue01/07/21 at 1530, CLEMENCIA, Intra-op carbachoL 2020- No PRN, Univers (MIOSTAT) 01-07 Starting ity o f 0.01 % 16:10: 20:30 on Tue [place] intraocular 00 :30 01/07/21 at [place] dical injection 1110, Branch Until Tue01/07/21 at 1530, Routine, Intra-op balanced 2020- No PRN, Univers salt irrig 01-07 Starting ity of soln comb1 16:10: 20:30 on Tuea s (BSS PLUS) 00 :30 01/07/21 at [facility] ical ophthalmic 1110, Branch solution Until Tue 500 mL bag 01/07/21 at 1530, Routine, Intra-op Hyaluronida 2020- No PRN, Unive rs se, Human 01-07 Starting ity o f Recomb. 16:00: 20:30 on Tue (HYLENEX) 00 :30 01/07/21 at Medi cassie injection 1100, Branch Until Tue01/07/21 at 1530, Routine, Intra-op eye block 2020- No PRN, Univers syringe 11 01-07 Starting ity of mL 16:00: 20:30 on Tue [place] 00 :30 01/07/21 at [facility] 1100, Branch Until Tue01/07/21 at 1530, Intra-op warfarin Yes 8mg Take 8 mg Univ ers (COUMADIN) 01-07 by mouth ity o f 4 mg tablet 13:30: every evening. Medical Branch carvedilol Yes 3.125mg Take 3.125 Univers (COREG) 9-22 mg by ity of 3.125 mg 13:30: mouth 2 [place] tablet 28 (two) Medical times Branch daily. divalproex Yes 250mg Take 250 Un francine sodium 9-22 mg by ity of (DEPAKOTE 13:30: mouth 3 [place] ORAL) 28 (three) Medical times Branch daily. aspirin 81 Yes 81mg Take 81 mg U nivers mg chewable 01-07 by mouth ity of tablet 13:30: daily. [place] 28 Medical Branch FAMOTIDINE Yes Take 40 mg U nivers ORAL 9-22 base by ity of 13:30: mouth 2 [place] [address] (two) Medical times Branch daily. OXcarbazepi Yes 300mg Take 300 U nivers ne 300 mg 9-22 mg by ity of tablet 13:30: mouth. [place] [address] Medical Branch atorvastati Yes 40mg Take 40 mg Univers n 40 mg -22 by mouth ity of tablet 13:30: at [place] [address] bedtime. Medical Branch warfarin Yes 8mg Take 8 mg Univ ers (COUMADIN) - by mouth ity o f 4 mg tablet 13:30: every [place] [address] evening. Medical Branch carvedilol Yes 3.125mg Take 3.125 Univers (COREG) 9-22 mg by ity of 3.125 mg 13:30: mouth 2 [place] tablet 28 (two) Medical times Branch daily. divalproex Yes 250mg Take 250 Un francine sodium 9-22 mg by ity of (DEPAKOTE 13:30: mouth 3 [place] ORAL) 28 (three) Medical times Branch daily. aspirin 81 Yes 81mg Take 81 mg U nivers mg chewable -22 by mouth ity of tablet 13:30: daily. [address] Branch FAMOTIDINE Yes Take 40 mg U nivers ORAL - base by ity of 13:30: mouth 2 [place] [address] (two) Medical times Branch daily. lactated 2020- No 1000mL at 42 Unive rs ringers IV 01-07 mL/hr, ity of infusion 13:30: 13:59 1,000 mL, [employer] as 1,000 mL 00 :00 IV Medical Infusion, Branch ONCE, 1 dose, On Tue01/07/21 at 0830, Routine, DSU Pre-op cyclopentol 2020- No 1[drp] 1 Drop, Univers ate 01-07 Right Eye, ity of (CYCLOGYL) 13:29: 15:35 Q5MIN PRN, [place] 1 % 58 :00 3 doses, Medical ophthalmic Starting Branc h drops 1 on Tue Drop 01/07/21 at 0829, Until Tue01/07/21 at 1035, Routine, Surgery/Pr ocedure, DSU Pre-op phenylephri 2020- No 1[drp] 1 Drop, Univers ne 01-07 Right Eye, ity of (JAY-SYNEPH 13:29: 15:35 Q5MIN PRN, [place] RINE) 2.5 % 58 :00 3 doses, Medi cassie ophthalmic Starting Branc h drops 1 on Tue Drop 01/07/21 at 0829, Until Tue01/07/21 at 1035, Routine, Surgery/Pr ocedure, DSU Pre-op ketorolac 2020- No 1[drp] 1 Drop, Un francine (ACULAR) 01-07 Right Eye, ity of 0.5 % 13:29: 15:35 Q5MIN PRN, [place] ophthalmic 58 :00 3 doses, Medic al solution 1 Starting Branc h Drop on Tue01/07/21 at 0829, Until Tue01/07/21 at 1035, Routine, Surgery/Pr ocedure, DSU Pre-op tropicamide 2020- No 1[drp] 1 Drop, Univers (MYDRIACYL) 01-07 Right Eye, i ty of 1 % 13:29: 15:35 Q5MIN PRN, [place] ophthalmic 58 :00 3 doses, Medic al drops 1 Starting Branch Drop on Tue01/07/21 at 0829, Until Tue01/07/21 at 1035, Routine, Surgery/Pr ocedure, DSU Pre-op atorvastati Yes 40mg Take 40 mg Univers n 40 mg 9-17 by mouth ity of tablet 14:10: at [place] 50 bedtime. Medical Branch atorvastati Yes 40mg Take 40 mg Univers n 40 mg 9-17 by mouth ity of tablet 14:10: at [place] 50 bedtime. [facility] Branch OXcarbazepi Yes 300mg Take 300 U nivers ne 300 mg 9-17 mg by ity of tablet 13:59: mouth. [address] OXcarbazepi Yes 300mg Take 300 U nivers ne 300 mg 9-17 mg by ity of tablet 13:59: mouth. [place] 33 Medical Branch warfarin 2021-0 Yes 8mg Take 8 mg Univ ers (COUMADIN) 9-17 by mouth ity o f 4 mg tablet 13:56: every [place] 06 evening. Medical Branch carvedilol 2020-0 Yes 3.125mg Take 3.125 Univers (COREG) 9-17 mg by ity of 3.125 mg 13:56: mouth 2 [place] tablet 06 (two) Medical times Branch daily. divalproex 2020-0 Yes 250mg Take 250 Un francine sodium 9-17 mg by ity of (DEPAKOTE 13:56: mouth 3 [place] ORAL) 06 (three) Medical times Branch daily. FAMOTIDINE 2020-0 Yes Take 40 mg U nivers ORAL 9-17 base by ity of 13:56: mouth 2 [place] 06 (two) Medical times Branch daily. warfarin 2020-0 Yes 8mg Take 8 mg Univ ers (COUMADIN) 9-17 by mouth ity o f 4 mg tablet 13:56: every [place] 06 evening. Medical Branch carvedilol 2020-0 Yes 3.125mg Take 3.125 Univers (COREG) 9-17 mg by ity of 3.125 mg 13:56: mouth 2 [place] tablet 06 (two) Medical times Branch daily. divalproex 2020-0 Yes 250mg Take 250 Un francine sodium 9-17 mg by ity of (DEPAKOTE 13:56: mouth 3 [place] ORAL) 06 (three) Medical times Branch daily. FAMOTIDINE 2020-0 Yes Take 40 mg U nivers ORAL 9-17 base by ity of 13:56: mouth 2 [place] 06 (two) Medical times Branch daily. divalproex 2020-0 Yes 250mg Take 250 Un francine sodium 9-14 mg by ity of (DEPAKOTE 12:58: mouth 3 [place] ORAL) 01 (three) Medical times Branch daily. aspirin 81 2020-0 Yes 81mg Take 81 mg U nivers mg chewable 9-14 by mouth ity of tablet 12:58: daily. [place] Medical Branch FAMOTIDINE 1-0 Yes Take 40 mg U nivers ORAL 9-14 base by ity of 12:58: mouth 2 [place] 01 (two) Medical times Branch daily. divalproex 202-0 Yes 250mg Take 250 Un francine sodium 9-14 mg by ity of (DEPAKOTE 12:58: mouth 3 [place] ORAL) (three) Medical times Branch daily. aspirin 81 2020-0 Yes 81mg Take 81 mg U nivers mg chewable 9-14 by mouth ity of tablet 12:58: daily. [address] Branch FAMOTIDINE 2020-0 Yes Take 40 mg U nivers ORAL 9-14 base by ity of 12:58: mouth 2 [place] (two) Medical times Branch daily. divalproex 2020-0 Yes 250mg Take 250 Un francine sodium 9-14 mg by ity of (DEPAKOTE 12:58: mouth 3 [place] ORAL) (three) Medical times Branch daily. aspirin 81 2020-0 Yes 81mg Take 81 mg U nivers mg chewable 9-14 by mouth ity of tablet 12:58: daily. [address] FAMOTIDINE 2020-0 Yes Take 40 mg U nivers ORAL 9-14 base by ity of 12:58: mouth 2 [place] (two) Medical times Branch daily. aspirin 81 2020-0 Yes 81mg Take 81 mg U nivers mg chewable 9-14 by mouth ity of tablet 12:58: daily. [address] divalproex 2020-0 Yes 250mg Take 250 Un francine sodium 9-14 mg by ity of (DEPAKOTE 12:58: mouth 3 [place] ORAL) (three) Medical times Branch daily. aspirin 81 2020-0 Yes 81mg Take 81 mg U nivers mg chewable 9-14 by mouth ity of tablet 12:58: daily. [address] FAMOTIDINE 2020-0 Yes Take 40 mg U nivers ORAL 9-14 base by ity of 12:58: mouth 2 [place] (two) Medical times Branch daily. aspirin 81 2020-0 Yes 81mg Take 81 mg U nivers mg chewable 9-14 by mouth ity of tablet 12:58: daily. [address] LEVOTHYROXI 2020-0 Yes [id number] TAKE 1 Univers NE 50 mcg 3-01 TABLET BY ity o f tablet 00:00: MOUTH [place] 00 TUESDAY Medical THROUGH Branch TUESDAY AND 1 AND 1/2 TABLETS ON TUESDAY, TUESDAY AND TUESDAY LEVOTHYROXI 2020-0 Yes [id number] TAKE 1 Univers NE 50 mcg 3-01 TABLET BY ity o f tablet 00:00: MOUTH [place] 00 Tuesday AND 1 AND 1/2 TABLETS ON TUESDAY, TUESDAY AND TUESDAY LEVOTHYROXI Yes [id number] TAKE 1 Univers NE 50 mcg 3-01 TABLET BY ity o f tablet 00:00: MOUTH [place] 00 Tuesday AND 1 AND 1/2 TABLETS ON TUESDAY, TUESDAY AND TUESDAY LEVOTHYROXI Yes [id number] TAKE 1 Univers NE 50 mcg 3-01 TABLET BY ity o f tablet 00:00: MOUTH [place] 00 Tuesday AND 1 AND 1/2 TABLETS ON TUESDAY, TUESDAY AND TUESDAY LEVOTHYROXI Yes [id number] TAKE 1 Univers NE 50 mcg 3-01 TABLET BY ity o f tablet 00:00: MOUTH [place] 00 Tuesday AND 1 AND 1/2 TABLETS ON TUESDAY, TUESDAY AND TUESDAY LEVOTHYROXI Yes [id number] TAKE 1 Univers NE 50 mcg 3-01 TABLET BY ity o f tablet 00:00: MOUTH [place] 00 Tuesday AND 1 AND 1/2 TABLETS ON TUESDAY, TUESDAY AND TUESDAY LEVOTHYROXI 0 Yes [id number] TAKE 1 Univers NE 50 mcg 3-01 TABLET BY ity o f tablet 00:00: MOUTH [place] 00 Tuesday AND 1 AND 1/2 TABLETS ON TUESDAY, TUESDAY AND TUESDAY LEVOTHYROXI 0 Yes [id number] TAKE 1 Univers NE 50 mcg 3-01 TABLET BY ity o f tablet 00:00: MOUTH [place] 00 Tuesday AND 1 AND 1/2 TABLETS ON TUESDAY, TUESDAY AND TUESDAY LEVOTHYROXI 0 Yes [id number] TAKE 1 Univers NE 50 mcg 3-01 TABLET BY ity o f tablet 00:00: MOUTH [place] 00 Tuesday AND 1 AND 1/2 TABLETS ON TUESDAY, TUESDAY AND TUESDAY LEVOTHYROXI 0 Yes [id number] TAKE 1 Univers NE 50 mcg 3-01 TABLET BY ity o f tablet 00:00: MOUTH [place] 00 Tuesday AND 1 AND 1/2 TABLETS ON TUESDAY, TUESDAY AND TUESDAY OXcarbazepi 2020-0 2020- No 150mg Q.5D Take [address] [facility] 10-12 tablet [facility] - (TRILEPTAL) 00:00: 23:59 (150 mg Me dical 150 MG 00 :00 total) by Center tablet mouth 2 (two) times daily. OXcarbazepi 2020-0 2020- No 150mg Q.5D Take [address] ne 10-12 tablet [facility] - (TRILEPTAL) 00:00: 23:59 (150 mg Me dical 150 MG 00 :00 total) by Center tablet mouth 2 (two) times daily. furosemide 2020-0 Yes 40mg QD Take [address] (LASIX) 40 6-12 by mouth [facility] - MG tablet 15:33: daily. Medica l 03 Center aspirin 81 2020-0 Yes 81mg QD Take [address] MG EC 6-12 by mouth [facility] - tablet 15:33: daily. [address] carvediloL 2020-0 Yes 3.125mg Take 3.[address] (COREG) 6-12 mg by [facility] - 3.125 MG 15:33: mouth 2 Medica l tablet 03 (two) Center times daily with breakfast and dinner. levothyroxi 2020-0 Yes 50ug Take [address] ne 6-12 mcg by [facility] - (SYNTHROID, 15:33: mouth Medic al LEVOTHROID) 03 Every Center 50 MCG morning on tablet an empty stomach. furosemide 2020-0 Yes 40mg QD Take [address] (LASIX) 40 6-12 by mouth [facility] - MG tablet 15:33: daily. Medica l 03 Center aspirin 81 2020-0 Yes 81mg QD Take [address] MG EC 6-12 by mouth [facility] - tablet 15:33: daily. [address] carvediloL 2020-0 Yes 3.125mg Take 3.[address] (COREG) 6-12 mg by [facility] - 3.125 MG 15:33: mouth 2 Medica l tablet 03 (two) Center times daily with breakfast and dinner. levothyroxi 2020-0 Yes 50ug Take [address] ne 6-12 mcg by [facility] - (SYNTHROID, 15:33: mouth Medic al LEVOTHROID) 03 Every Center 50 MCG morning on tablet an empty stomach. levothyroxi 2020-0 Yes TAKE 1 Univ ers ne 50 mcg 6-01 TABLET BY ity o f tablet 00:00: MOUTH [place] 00 Tuesday AND 1 AND 1/2 TABLETS ON TUESDAY, TUESDAY AND TUESDAY levothyroxi 2020-0 Yes TAKE 1 Univ ers ne 50 mcg 6-01 TABLET BY ity o f tablet 00:00: MOUTH [place] 00 Tuesday AND 1 AND 1/2 TABLETS ON TUESDAY, TUESDAY AND TUESDAY levothyroxi 2020-0 Yes TAKE 1 Univ ers ne 50 mcg 6-01 TABLET BY ity o f tablet 00:00: MOUTH [place] 00 Tuesday AND 1 AND 1/2 TABLETS ON TUESDAY, TUESDAY AND TUESDAY levothyroxi 2020-0 Yes TAKE 1 Univ ers ne 50 mcg 6-01 TABLET BY ity o f tablet 00:00: MOUTH [place] 00 Tuesday AND 1 AND 1/2 TABLETS ON TUESDAY, TUESDAY AND TUESDAY levothyroxi 2020-0 2020- No TAKE 1 Uni vers ne 50 mcg 6-01 03- TABLET BY ity of tablet 00:00: 00:00 MOUTH [place] 00 :00 Tuesday AND 1 AND 1/2 TABLETS ON TUESDAY, TUESDAY AND TUESDAY levothyroxi 2020-0 2020- No TAKE 1 Uni vers ne 50 mcg 6-01 - TABLET BY ity of tablet 00:00: 00:00 MOUTH [place] 00 :00 Tuesday AND 1 AND 1/2 TABLETS ON TUESDAY, TUESDAY AND TUESDAY divalproex 2020-0 Yes 250mg Take 250 Un francine sodium 4-30 mg by ity of (DEPAKOTE 15:48: mouth 3 [place] ORAL) (three) Medical times [place] daily. aspirin 81 2020-0 Yes 81mg Take 81 mg U nivers mg chewable 4-30 by mouth ity of tablet 15:48: daily. [address] Branch FAMOTIDINE 2020-0 Yes Take 40 mg U nivers ORAL 4-30 base by ity of 15:48: mouth 2 [place] (two) Medical times [place] daily. divalproex 2020-0 Yes 250mg Take 250 Un francine sodium 4-30 mg by ity of (DEPAKOTE 15:48: mouth 3 [place] ORAL) 26 (three) Medical times Branch daily. aspirin 81 2020-0 Yes 81mg Take 81 mg U nivers mg chewable 4-30 by mouth ity of tablet 15:48: daily. [place] [address] [facility] FAMOTIDINE 2020-0 Yes Take 40 mg U nivers ORAL 4-30 base by ity of 15:48: mouth 2 [place] [address] (two) Medical times Branch daily. divalproex 2020-0 Yes 250mg Take 250 Un francine sodium 4-30 mg by ity of (DEPAKOTE 15:48: mouth 3 [place] ORAL) 26 (three) Medical times Branch daily. aspirin 81 2020-0 Yes 81mg Take 81 mg U nivers mg chewable 4-30 by mouth ity of tablet 15:48: daily. [place] [address] [facility] FAMOTIDINE 2020-0 Yes Take 40 mg U nivers ORAL 4-30 base by ity of 15:48: mouth 2 [place] [address] (two) Medical times Branch daily. divalproex 2020-0 Yes 250mg Take 250 Un francine sodium 4-30 mg by ity of (DEPAKOTE 15:48: mouth 3 [place] ORAL) (three) Medical times Branch daily. aspirin 81 2020-0 Yes 81mg Take 81 mg U nivers mg chewable 4-30 by mouth ity of tablet 15:48: daily. [place] [address] [facility] FAMOTIDINE 2020-0 Yes Take 40 mg U nivers ORAL 4-30 base by ity of 15:48: mouth 2 [place] [address] (two) Medical times Branch daily. divalproex 2020-0 Yes 250mg Take 250 Un francine sodium 4-30 mg by ity of (DEPAKOTE 15:48: mouth 3 [place] ORAL) (three) Medical times Branch daily. aspirin 81 2020-0 Yes 81mg Take 81 mg U nivers mg chewable 4-30 by mouth ity of tablet 15:48: daily. [place] [address] [facility] FAMOTIDINE 2020-0 Yes Take 40 mg U nivers ORAL 4-30 base by ity of 15:48: mouth 2 [place] [address] (two) Medical times Branch daily. divalproex 2020-0 Yes 250mg Take 250 Un francine sodium 4-30 mg by ity of (DEPAKOTE 15:48: mouth 3 [place] ORAL) (three) Medical times Branch daily. aspirin 81 2020-0 Yes 81mg Take 81 mg U nivers mg chewable 4-30 by mouth ity of tablet 15:48: daily. [place] [address] [facility] FAMOTIDINE 2020-0 Yes Take 40 mg U nivers ORAL 4-30 base by ity of 15:48: mouth 2 [place] (two) Medical times Branch daily. divalproex 2020-0 Yes 250mg Take 250 Un francine sodium 4-30 mg by ity of (DEPAKOTE 15:48: mouth 3 [place] ORAL) (three) Medical times Branch daily. aspirin 81 2020-0 Yes 81mg Take 81 mg U nivers mg chewable 4-30 by mouth ity of tablet 15:48: daily. [place] [address] [facility] FAMOTIDINE 2020-0 Yes Take 40 mg U nivers ORAL 4-30 base by ity of 15:48: mouth 2 [place] (two) Medical times Branch daily. warfarin 2020-0 Yes 8mg Take 8 mg Univ ers (COUMADIN) 4-30 by mouth ity o f 4 mg tablet 15:44: every [place] 34 evening. Medical Branch warfarin 2020-0 Yes 8mg Take 8 mg Univ ers (COUMADIN) 4-30 by mouth ity o f 4 mg tablet 15:44: every [place] 34 evening. Medical Branch warfarin 2020-0 Yes 8mg Take 8 mg Univ ers (COUMADIN) 4-30 by mouth ity o f 4 mg tablet 15:44: every [place] 34 evening. Medical Branch warfarin 2020-0 Yes 8mg Take 8 mg Univ ers (COUMADIN) 4-30 by mouth ity o f 4 mg tablet 15:44: every [place] 34 evening. Medical Branch warfarin 2020-0 Yes 8mg Take 8 mg Univ ers (COUMADIN) 4-30 by mouth ity o f 4 mg tablet 15:44: every [place] 34 evening. Medical Branch warfarin 2020-0 Yes 8mg Take 8 mg Univ ers (COUMADIN) 4-30 by mouth ity o f 4 mg tablet 15:44: every [place] 34 evening. Medical Branch warfarin 2020-0 Yes 8mg Take 8 mg Univ ers (COUMADIN) 4-30 by mouth ity o f 4 mg tablet 15:44: every [place] 34 evening. Medical Branch warfarin 2020-0 Yes 8mg Take 8 mg Univ ers (COUMADIN) 4-30 by mouth ity o f 4 mg tablet 10:44: every [place] 34 evening. Medical Branch warfarin 2020-0 Yes 8mg Take 8 mg Univ ers (COUMADIN) 4-30 by mouth ity o f 4 mg tablet 10:44: every [place] 34 evening. Medical Branch warfarin 2020-0 Yes 8mg Take 8 mg Univ ers (COUMADIN) 4-30 by mouth ity o f 4 mg tablet 10:44: every [place] 34 evening. Medical Branch warfarin 2020-0 Yes 8mg Take 8 mg Univ ers (COUMADIN) 4-30 by mouth ity o f 4 mg tablet 10:44: every [place] 34 evening. Medical Branch Protonix No Notes: Memoria 3-24 Tablet l 12:30: should not [place] 00 be chewed or crushed. (Same as: [...] n [Pepcid] 00 tab, 0 Refill(s), Pharmacy: [facility] #[id number] carvedilol Yes 3.125 mg = M emoria 3.125 mg 3-23 1 tab, l oral tablet 19:09: PEG, Q12H, [place] 00 0 Refill(s) Aspirin 81 2019- Yes 81 mg = 1 Me moria MG Enteric 3-23 tab, PO, l Coated 19:09: Q24H, # 30 Fabi nn Tablet 00 tab, 0 Refill(s), Pharmacy: [facility] #[id number] atorvastati Yes 40 mg = 1 M emoria n 40 mg 3-23 tab, PO, l oral tablet 19:09: Bedtime, # Master 00 30 tab, 0 Refill(s), Pharmacy: [facility] #[id number] Divalproex No 500 mg = 2 M emoria Sodium 250 3-23 tab, PO, l MG Enteric 19:09: Q8H, # 180 H ermann Coated 00 tab, 0 Tablet Refill(s), Pharmacy: [facility] #[id number] Lipitor No Notes: Memoria 3-23 (Same as: l 02:20: Lipitor) Master 00 Saline No Notes: Memoria Flush 0.9% 3-23 (Same as: l 02:00: BD [place] 00 Posiflush) Aspirin 81 No Notes: Do Me moria MG Enteric 3-23 not crush l Coated 00:00: or chew. [place] Tablet 00 (Same As: Ecotrin) levothyroxi Yes Take 50 Uni vers ne 50 mcg 3-23 mcg-Tuesday ity of tablet 00:00: through and 75 mcg Branch on Tuesday, Tuesday and Tuesday levothyroxi 2019-0 Yes TAKE 1 Univ ers ne 50 mcg 3-23 TABLET BY ity o f tablet 00:00: MOUTH Tuesday THROUGH Tuesday AND 1 AND 1/2 TABLETS ON TUESDAY, TUESDAY AND TUESDAY levothyroxi 0 Yes TAKE 1 Univ ers ne 50 mcg 3-23 TABLET BY ity o f tablet 00:00: MOUTH Tuesday AND 1 AND 1/2 TABLETS ON TUESDAY, TUESDAY AND TUESDAY levothyroxi 2019-0 2020- No Take 50 Un francine ne 50 mcg 3-23 03-23 mcg-Tuesday ity of tablet 00:00: 00:00 through 00 : Medical and 75 mcg Branch on Tuesday, Tuesday and Tuesday Saline No Notes: Memoria Flush 0.9% -22 (Same as: l 23:18: BD Posiflush) Levetiracet No Notes: Rito [place] am 500 MG 3-22 (Same l Oral Tablet 02:00: as:Keppra) [place] [Keppra] 00 Depakote No Notes: Memoria 3-21 Hazardous l 21:00: Drug Group 2:Non-anti neoplastic Hazardous Drug -- Refer to safe handling procedure PPE Matrix (Same as: Depakote Delayed Release) Do not confuse with the extended-r elease tablet. Delayed absorption , enteric coated tablet. Do not crush Docusate No Notes: Memoria 3-21 (Same as: l 14:00: Colace) (Do Not Crush) carvedilol No Notes: Memor ia 3-21 Give with l 14:00: food. Master 00 (Same As: Coreg) Furosemide No Notes: Memor ia 40 MG Oral 3-21 (Same as: l Tablet 14:00: Lasix) [place] [Lasix] May cause GI upset. Give with food [...] as: Protonix) sennosides, No Notes: [place] HALF-WAY 3-21 (Same as: l 11:56: Senokot) Lanolin Yes TOP, Memoria 0.157 MG/MG 3-21 Daily, 0 l / Menthol 11:40: Refill(s) Her addison 0.0044 00 MG/MG / Petrolatum 0.24 MG/MG / Zinc Oxide 0.206 MG/MG Topical Ointment [Calmosepti ne] carvedilol No 3.125 mg = M emoria 3.125 mg 07-06 1 tab, PO, l oral tablet 11:40: Q12H, 0 Her addison 00 Refill(s) Thyroxine Yes 50 Memoria 3- microgram, l 11:40: PO, Daily, Master 00 0 Refill(s) Sodium Yes 2 grams, Memoria Chloride 07-06 PEG, TID, l 11:40: 0 [place] Refill(s) Furosemide Yes 40 mg = 1 Me moria 40 MG Oral - tab, PO, l Tablet 11:40: Daily, 0 Master [Lasix] 00 Refill(s) sennosides, Yes 8.6 mg =, M emoria HALF-WAY 07-06 PEG, PRN, l 11:40: 0 [place] 00 Refill(s) Melatonin No Notes: Memori a 07-06 (Same as: l 07:24: Melatonin) Ondansetron No Notes: [place]ito [place] 07-06 (Same as: l 07:13: Zofran) MEDICATION WASTE Product Size: 4 mg Product Wasted: ___ mg Acetaminoph No Notes: Do M emoria en 07-06 not exceed l 07:13: 4 gm/day. (Same as: Tylenol) Lorazepam No Notes: Memori a - (Same as: l 07:13: Ativan) Dextrose No 12.5 gm, Memor ia 50% Syringe 07-06 25 mL, l (D50W) 07:13: Route: IVP, Drug Form: INJ, Dosing Weight 81.6, kg, PRN, PRN Blood Glucose Results, Start date: 07/07/19 2:13:00 CDT, Duration: 30 day, Stop date: 08/06/19 2:12:00 CDT, 0 Glucagon No 1 mg, Memoria 07-06 Route: IM, l 07:13: Drug form: PDR/INJ, PRN, Dosing Weight 81.6, kg, PRN Blood Glucose Results, Start date: 07/07/19 2:13:00 CDT, Duration: 30 day, Stop date: 08/06/19 2:12:00 CDT, 0 levothyroxi 2020-0 Yes Take 50 Uni vers ne 50 mcg 2-29 mcg-Tuesday ity of tablet 00:00: through [place] [facility] and 75 mcg Branch on Tuesday, Tuesday and Tuesday levothyroxi 2020-0 Yes Take 50 Uni vers ne 50 mcg 2-29 mcg-Tuesday ity of tablet 00:00: through [place] [facility] and 75 mcg Branch on Tuesday, Tuesday and Tuesday levothyroxi 2020-0 2020- No Take 50 Un francine ne 50 mcg 2-29 03-23 mcg-Tuesday ity of tablet 00:00: 00:00 through [place] 00 :00 Medical and 75 mcg Branch on Tuesday, Tuesday and Tuesday sodium 2020-0 Yes 2mg Take 2 mg Univer s chloride 1 2-28 by mouth 3 ity of gram tablet 00:00: (three) [employer] as 00 times Medical daily. Branch sodium 2020-0 Yes 2mg Take 2 mg Univer s chloride 1 2-28 by mouth 3 ity of gram tablet 00:00: (three) [employer] as 00 times Medical daily. Branch sodium 2020-0 Yes 2mg Take 2 mg Univer s chloride 1 2-28 by mouth 3 ity of gram tablet 00:00: (three) [employer] as 00 times Medical daily. Branch sodium 2020-0 Yes 2mg Take 2 mg Univer s chloride 1 2-28 by mouth 3 ity of gram tablet 00:00: (three) [employer] as 00 times Medical daily. Branch sodium 2020-0 Yes 2mg Take 2 mg Univer s chloride 1 2-28 by mouth 3 ity of gram tablet 00:00: (three) [employer] as 00 times Medical daily. Branch sodium 2020-0 Yes 2mg Take 2 mg Univer s chloride 1 2-28 by mouth 3 ity of gram tablet 00:00: (three) [employer] as 00 times Medical daily. Branch sodium 2020-0 Yes 2mg Take 2 mg Univer s chloride 1 2-28 by mouth 3 ity of gram tablet 00:00: (three) [employer] as 00 times Medical daily. Branch sodium 2020-0 Yes 2mg Take 2 mg Univer s chloride 1 2-28 by mouth 3 ity of gram tablet 00:00: (three) [employer] as 00 times Medical daily. Branch sodium 2020-0 Yes 2mg Take 2 mg Univer s chloride 1 2-28 by mouth 3 ity of gram tablet 00:00: (three) [employer] as 00 times Medical daily. Branch sodium 2020-0 Yes 2mg Take 2 mg Univer s chloride 1 2-28 by mouth 3 ity of gram tablet 00:00: (three) [employer] as 00 times Medical daily. Branch sodium 2020-0 Yes 2mg Take 2 mg Univer s chloride 1 2-28 by mouth 3 ity of gram tablet 00:00: (three) [employer] as 00 times Medical daily. Branch sodium 2020-0 Yes 2mg Take 2 mg Univer s chloride 1 2-28 by mouth 3 ity of gram tablet 00:00: (three) [employer] as 00 times Medical daily. Branch sodium 2020-0 Yes 2mg Take 2 mg Univer s chloride 1 2-28 by mouth 3 ity of gram tablet 00:00: (three) [employer] as 00 times Medical daily. Branch sodium 2020-0 Yes 2mg Take 2 mg Univer s chloride 1 2-28 by mouth 3 ity of gram tablet 00:00: (three) [employer] as 00 times Medical daily. Branch sodium 2020-0 Yes 2mg Take 2 mg Univer s chloride 1 2-28 by mouth 3 ity of gram tablet 00:00: (three) [employer] as 00 times Medical daily. Branch furosemide 2020-0 Yes 40mg Take 40 mg U nivers 20 mg 2-14 by mouth ity of tablet 00:00: daily. [place] [facility] Branch furosemide 2020-0 Yes 40mg Take 40 mg U nivers 20 mg 2-14 by mouth ity of tablet 00:00: daily. [place] [facility] furosemide 2020-0 Yes 40mg Take 40 mg U nivers 20 mg 2-14 by mouth ity of tablet 00:00: daily. [place] [facility] furosemide 2020-0 Yes 40mg Take 40 mg U nivers 20 mg 2-14 by mouth ity of tablet 00:00: daily. [place] [facility] furosemide 2020-0 Yes 40mg Take 40 mg U nivers 20 mg 2-14 by mouth ity of tablet 00:00: daily. [place] [facility] furosemide 2020-0 Yes 40mg Take 40 mg U nivers 20 mg 2-14 by mouth ity of tablet 00:00: daily. [place] [facility] furosemide 2020-0 Yes 40mg Take 40 mg U nivers 20 mg 2-14 by mouth ity of tablet 00:00: daily. [place] [facility] furosemide 2020-0 Yes 40mg Take 40 mg U nivers 20 mg 2-14 by mouth ity of tablet 00:00: daily. [place] [facility] furosemide 2020-0 Yes 40mg Take 40 mg U nivers 20 mg 2-14 by mouth ity of tablet 00:00: daily. [place] [facility] furosemide 2020-0 Yes 40mg Take 40 mg U nivers 20 mg 2-14 by mouth ity of tablet 00:00: daily. [place] [facility] furosemide 2020-0 Yes 40mg Take 40 mg U nivers 20 mg 2-14 by mouth ity of tablet 00:00: daily. [place] [facility] furosemide 2020-0 Yes 40mg Take 40 mg U nivers 20 mg 2-14 by mouth ity of tablet 00:00: daily. [place] [facility] furosemide 2020-0 Yes 40mg Take 40 mg U nivers 20 mg 2-14 by mouth ity of tablet 00:00: daily. [place] [facility] furosemide 2020-0 Yes 40mg Take 40 mg U nivers 20 mg 2-14 by mouth ity of tablet 00:00: daily. [place] [facility] furosemide 2020-0 Yes 40mg Take 40 mg U nivers 20 mg 2-14 by mouth ity of tablet 00:00: daily. [address] Sodium 2020-0 Yes 1 gm = 1 Memoria Chloride 2-09 tab, PO, l 1000 MG 17:26: TID, # 21 Fabi nn Oral Tablet 00 tab, 0 Refill(s), Pharmacy: [facility] #[id number] Furosemide 2019-0 Yes 20 mg = 1 Me moria 20 MG Oral 2-09 tab, PO, l Tablet 17:26: Daily, # 7 Fabi nn [Lasix] 00 tab, 0 Refill(s), [id number] Furosemide 2020-0 No Notes: Memor ia 20 MG Oral 2-09 (Same as: l Tablet 15:00: Lasix) Master [Lasix] 00 May cause GI upset. Give with food or milk. carvedilol 2020-0 No 3.125 mg, Me moria 2-08 Route: PO, l 03:00: Drug form: [place] 00 TAB, Q12H, Dosing Weight 81.6, kg, Start date: 05/25/19 21:00:00 CASTING MOLDER, Duration: 30 day, Stop date: 06/24/19 9:00:00 CDT Saline 2019-0 No Notes: Memoria Flush 0.9% 2-06 Same as: l 22:00: BD [place] 00 Posiflush Sterile Saline 2019-0 No Notes: [...] 2-06 Same as : l 00:57: Lipase [place] 00 24877 Units, Protease 38,000 units, Amylase 27414 units Reglan 2019-0 No Notes: Memoria 2-06 (Same as: l 00:27: Reglan) Msater 00 Lasix 2019-0 No Notes: Memoria 2-05 (Same as: l 22:00: Lasix) [place] 00 Seroquel 2019-0 No Notes: Memoria 2-05 (Same as: l 15:53: SEROquel) [place] 00 Sodium 2020-0 No 1 gm, 1 Memoria Chloride 2-05 tab, l 1000 MG 15:00: Route: PO, Herm ruddy Oral Tablet 00 Drug form: TAB, TID, Dosing Weight 81.6, kg, Start date: 05/23/19 9:00:00 CASTING MOLDER, Duration: 30 day, Stop date: 06/21/19 17:00:00 CASTING MOLDER, 0 Sodium 2020-0 No 1 gm, 1 Memoria Chloride 2-04 tab, l 1000 MG 18:28: Route: PO, Herm ruddy Oral Tablet 00 Drug form: TAB, BID, Dosing Weight 81.6, kg, Start date: 05/22/19 12:28:00 CASTING MOLDER, Duration: 30 day, Stop date: 06/21/19 9:00:00 CASTING MOLDER, 0 Sodium 2020-0 No 1,000 mL, Memori a Chloride 2-04 Rate: 40 l 0.9% IV 18:27: ml/hr, [place] 1,000 mL 00 Infuse over: 25 hr, Route: IV, Dosing Weight 81.6 kg, Total Volume: 1,000, Start date: 05/22/19 12:27:00 CASTING MOLDER, Duration: 2 day, Stop date: 05/24/19 12:26:00 CASTING MOLDER, 1.92, m2, 0 sennosides, 2020-0 No Notes: [place] HALF-WAY 2-03 (Same as: l 23:00: Senokot) Master 00 Dulcolax 2020-0 No Notes: Memoria Laxative 2-03 (Same As: l 16:21: Dulcolax, [place] 00 Correctol) (Do Not Crush) "Do Not Crush" Sodium 2020-0 No 1,000 mL, Memori a Chloride 2-03 Rate: 80 l 0.9% IV 15:42: ml/hr, [place] 1,000 mL 00 Infuse over: 12.5 hr, Route: IV, Dosing Weight 81.6 kg, Total Volume: 1,000, Start date: 05/21/19 9:42:00 CASTING MOLDER, Duration: 2 day, Stop date: 05/23/19 9:41:00 CASTING MOLDER, 1.92, m2, 0 Hydralazine 2019-0 No Notes: [place] 2-01 (Same as: l 18:35: Apresoline ) Push over 5 minutes Tylenol 2020-0 No 1,000 mg, Memor ia 2-01 Route: PO, l 15:01: ONCE, Master 00 Dosing Weight 81.6, kg, Priority: NOW, Start date: 05/19/19 9:01:00 CASTING MOLDER, Stop date: 05/19/19 9:01:00 CASTING MOLDER D5W 100 mL 2020-0 No 100 mL, Rito [place] 2-01 Rate: 100 l 12:32: ml/hr, [place] 00 Infuse over: 1 hr, Route: IV, Dosing Weight 81.6 kg, Total Volume: 100, Priority: STAT, Start date: 05/19/19 6:32:00 CASTING MOLDER, Duration: 1 doses or times, Stop date: 05/19/19 7:31:00 CASTING MOLDER, 1.92, m2, 0 D5W 100 mL 2019-0 No 100 mL, Rito [place] 2-01 Rate: 100 l 09:28: ml/hr, [place] 00 Infuse over: 1 hr, Route: IV, Dosing Weight 81.6 kg, Total Volume: 100, Priority: STAT, Start date: 05/19/19 3:28:00 CASTING MOLDER, Duration: 1 doses or times, Stop date: 05/19/19 4:27:00 CASTING MOLDER, 1.92, m2, 0 D5W 1,000 2019-0 No 1,000 mL, Mem oria mL 2- Rate: 100 l 02:07: ml/hr, [place] 00 Infuse over: 10 hr, Route: IV, Dosing Weight 81.6 kg, Total Volume: 1,000, Priority: STAT, Start date: 05/18/19 20:07:00 CASTING MOLDER, Duration: 30 day, Stop date: 06/17/19 20:06:00 CASTING MOLDER, 1.92, m2, 0 tolvaptan 2019- No Notes: Memori a 1-31 Same as: l 20:03: Samsca Master 00 Protonix 2019-0 No Notes: Memoria 1-31 Tablet l 15:00: should not [place] 00 be chewed or crushed. (Same as: Protonix) POLYETHYLEN 2019-0 No Notes: Rito ir[place] E GLYCOL - Dissolve l 3350 15:00: in 8 oz of Master 00 water or juice. (Same as: Miralax) Water 1000 2019-0 No 1,000 ml, Me moria MG/ML - Rate: 50 l Injectable 14:09: ml/hr, Fabi nn Solution 00 Infuse over: 21.7 hr, Route: IV, Dosing Weight 81.6 kg, Total Volume: 1,085.5, Start date: 05/18/19 8:09:00 CASTING MOLDER, Duration: 30 day, Stop date: 06/17/19 8:08:00 CASTING MOLDER, For IMU and ICU use only. See Order Comments!! , 1.92, m2, 0 Thyroxine 2019-0 No Notes: Memori a 1-31 Take 1 l 12:30: hour Master 00 before or 2 hours after meal; Enteral feeds may interefere with the absorption of this medication .(Same as:Levothr oid, Synthroid) carvedilol 2019- No Notes: Memor ia - Give with l 10:00: food. Master 00 (Same As: Coreg) lansoprazol 2019- No Notes: Rito ir[place] e 05-18 Take 1 l 03:00: hour [place] 00 before or 2 hours after meal; Expires in 14 days. Shake well before use. (Same as:Prevaci d) Compound ed Product - formulatio n not commercial ly available* * Saline No Notes: Memoria Flush 0.9% 05-18 Same as: l 03:00: BD [place] 00 Posiflush Sterile Seroquel 2019- No Notes: Memoria 05-18 (Same as: l 03:00: SEROquel) [place] Docusate 2019- No Notes: Memoria -30 (Same as: l 23:00: Colace) Master sodium 2019- No Notes: Memoria bicarbonate 05-17 (sodium l 8.4% 22:04: bicarb Master 00 8.4% (1 mEq/ml) 50 ml VL) carvedilol No Notes: Memor ia -30 Give with l 22:01: food. Master 00 (Same As: Coreg) Water 1000 No 1,000 ml, Me moria MG/ML 05-17 Rate: 35 l Injectable 18:01: ml/hr, Fabi nn Solution 00 Infuse over: 31 hr, Route: IV, Dosing Weight 81.6 kg, Total Volume: 1,085.5, Start date: 05/17/19 12:01:00 CASTING MOLDER, Duration: 30 day, Stop date: 06/16/19 12:00:00 CASTING MOLDER, For IMU and ICU use only. See Order Comments!! , 1.92, m2, 0 Bisacodyl 2019-0 No Notes: Memori a -30 (Same As: l 18:01: Dulcolax, [place] 00 Bisco-Lax) DDAVP No Notes: Memoria 1-30 (Same As: l 18:00: DDAVP) MEDICATION WASTE Product Size: 4 microgram Product Wasted: ___ microgram Enoxaparin No Notes: Memor ia 1-30 (Same as: l 17:00: Lovenox) Saline No Notes: Memoria Flush 0.9% 1-30 Same as: l 16:56: BD Posiflush Sterile Potassium No Notes: Memori a Chloride 1-30 (Same as: l 16:56: KCL) Infuse no faster than 10 mEq/hr if [...] phosphate 1-30 (Same as: l 16:56: K Phosphate. ) Do not infuse phosphorou s concurrent ly in the same line as TPN or IVF that contains calcium. For double lumen central lines, phosphorou s may be infused in a separate lumen from TPN. 1 mMol phoshate has 1.47 mEq potassium Infuse over 4 hours potassium No Notes: Memori a phosphate-s 1-30 (Same as: l odium 16:56: Phos-NaK) Each 1.5 250 mg-280 gm pkt has mg-160 mg 250mg oral powder phosphorou for s. Mix reconstitut w/2.5oz ion water and stir. Magnesium No Notes: Memori a Sulfate 1-30 WASTE: F/P l 16:56: - Sink; E - Municipal Trash Bin Magnesium No Notes: Memori a Oxide 1-30 (Same as: l 16:56: Mag-Ox 400) Magnesium oxide 380bz=939o g elemental magnesium Dose=____m g magnesium oxide (___mg elemental magnesium) Calcium No Notes: Memoria Gluconate 1-30 WASTE: F/P l 16:56: - Sink; E [place] 00 - Municipal Trash Bin Calcium No Notes: Memoria Carbonate 1-30 (Same As: l 500 MG 16:56: Tums) [place] Chewable 00 Calcium Tablet Carbonate 500 mg = 200 mg elemental calcium Dose = mg calcium carbonate ( mg elemental calcium) pantoprazol 2018-04 Yes 40 mg = 1 M emoria e 40 MG 2-24 tab, PO, l Enteric 16:19: Daily, # [place] n Coated 00 30 tab, 0 Tablet Refill(s), [Protonix] Pharmacy: [facility] #[id number] lidocaine 2018-04 No Route: IV, Me moria (ANES) 2-23 Drug form: l 22:27: INJ, ONCE, Master 00 Stop date: 04/09/19 16:27:00 CASTING MOLDER propofol 2018-04 No Route: IV, Mem oria (ANES) 10 2-23 Drug form: l mg 22:05: INJ, Start date: 04/09/19 16:05:00 CASTING MOLDER, Stop date: 04/09/19 17:05:00 CASTING MOLDER Lactated 2018-04 No Route: IV, Mem oria Ringers 2-23 Total l Injection 21:58: Volume: Fabi nn IV (ANES) 00 1,000, 1000 mL Start date: 04/09/19 15:58:00 CASTING MOLDER, Stop date: 04/09/19 16:58:00 CASTING MOLDER Lumason 2018-04 No Notes: Memoria intravenous 2-23 (Same as: l injection 18:39: Lumason) Administer as an IV bolus; do not administer intra-ibeth rially. Follow each injection with an intravenou s flush of 5 mL of NS. Fleet Enema 2018-04 No 12 years, Memoria 2-23 Pediatric l 17:55: Dosing, 0 Master 00 Thyroxine 2018-04 No Notes: Memori a [...] Weight 81.818, kg, Start date: 04/09/19 0:00:00 CASTING MOLDER, Duration: 30 day, Stop date: 05/08/19 16:00:00 CASTING MOLDER, 0 Coreg 2018-04 No Notes: Memoria 2-23 [...] Total Volume: 1,000, Start date: 04/08/19 20:19:00 CASTING MOLDER, Duration: 30 day, Stop date: 05/08/19 20:18:00 CASTING MOLDER, 2.02, m2, 0 Dextrose 2018-04 No 12.5 gm, Memor ia 50% Syringe 2-23 25 mL, l (D50W) 02:18: Route: IVP, Drug Form: INJ, Dosing Weight 81.818, kg, PRN, PRN Blood Glucose Results, Start date: 04/08/19 20:18:00 CASTING MOLDER, Duration: 30 day, Stop date: 05/08/19 20:17:00 CASTING MOLDER, 0 Glucagon 2018-04 No 1 mg, Memoria 2-23 Route: IM, l 02:18: Drug form: [place] 00 PDR/INJ, PRN, Dosing Weight 81.818, kg, PRN Blood Glucose Results, Start date: 04/08/19 20:18:00 CASTING MOLDER, Duration: 30 day, Stop date: 05/08/19 20:17:00 CASTING MOLDER, 0 Ondansetron 2018-04 No Notes: Rito [place] 2-23 (Same as: l 02:18: Zofran) MEDICATION WASTE Product Size: 4 mg Product Wasted: ___ mg Acetaminoph 2018-04 No Notes: Do M emoria en 2-23 not exceed l 02:18: 4 gm/day. (Same as: Tylenol) pantoprazol 2018-04 No Notes: [...] tab, l oral tablet 19:31: PEG, Q12H, [place] 00 0 Refill(s) levothyroxi 2018-04 Yes 50 Memori a ne 50 mcg 2-20 microgram l (0.05 mg) 19:31: = 1 tab, Herm ruddy oral tablet 00 PEG, Q630AM, 0 Refill(s) Warfarin 2018-04 No 9 mg, PO, Rito [place] 2-18 Daily, 0 l 16:39: Refill(s), [place] 00 [facility] [id number] carvedilol 2018-04 No PO, 0 Memori a 2-18 Refill(s) l 15:55: [place] 00 carvedilol 2018-04 No 6.25 mg = Me moria 6.25 mg 2-18 1 tab, PO, l oral tablet 15:55: Q12H, # 60 Master 00 tab, 0 Refill(s), [facility] [id number] levothyroxi 2018-04 No See Memori a ne 75 mcg 2-18 Instructio l (0.075 mg) 15:55: ns, 1 tab, H ermann oral tablet 00 PEG, Tuesday, Tuesday and Tuesday (once a day), 0 Refill(s), [facility] [id number] meloxicam 2018-04 Yes 15 mg = 1 Mem oria 15 mg oral 2-18 tab, PO, l tablet 15:55: Daily, # Master 00 30 tab, 0 Refill(s) Bisacodyl 2019-1 No Notes: Memori a 2-18 (Same As: l 13:47: Dulcolax, Master 00 Bisco-Lax) Sodium 2018-04 No 1 gm, 1 Memoria Chloride 2-17 tab, l 1000 MG 22:00: Route: GT, Herm ruddy Oral Tablet 00 Drug form: TAB, Q8H, Dosing Weight 79.1, kg, Start date: 04/03/19 16:00:00 CASTING MOLDER, Duration: 30 day, Stop date: 05/03/19 8:00:00 CASTING MOLDER, 0 Miralax 2018- No Notes: Memoria 2-17 Dissolve l 15:46: in 8 oz of [place] 00 water or juice. (Same as: Miralax) Beneprotein 2018-04 No 1 pkt, Rito [place] 7 gm pkt 2-17 Route: PO, l 13:30: Drug Form: [place] 00 PWDR, Dosing Weight 79.1, kg, BID-Before Meals, Start date: 04/03/19 7:30:00 CASTING MOLDER, Duration: 30 day, Stop date: 05/02/19 16:30:00 CASTING MOLDER NS (Bolus) 2018-04 No 500 mL, Rito [place] IV 2-17 500 ml/hr, l 10:11: Infuse Master 00 Over: 1 hr, Route: IV, 500, Drug form: INJ, ONCE, Priority: STAT, Dosing Weight 79.1 kg, Start date: 04/03/19 4:11:00 CASTING MOLDER, Stop date: 04/03/19 4:11:00 CASTING MOLDER, 0 Sodium 2018-04 No 2 gm, 2 Memoria Chloride 2-17 tab, l 1000 MG 06:00: Route: GT, Herm ruddy Oral Tablet 00 Drug form: TAB, Q8H, Dosing Weight 79.1, kg, Start date: 04/03/19 0:00:00 CASTING MOLDER, Duration: 30 day, Stop date: 05/02/19 16:00:00 CASTING MOLDER, 0 Beneprotein 2018-04 No Notes: Rito [place] 7 gm pkt 2-16 (Same as: l 23:15: Beneprotei [place] n) Beneprotein 2018-04 No Notes: [place] 7 gm pkt 2-16 (Same as: l 22:30: Beneprotei Master n) Albuterol 2018-04 No Notes: Memori a 0.833 MG/ML 2-16 (Same as: l / 17:49: Duoneb) [place] Ipratropium 00 Ranger 0.167 MG/ML Inhalant Solution [DuoNeb] Isolyte S 2018-04 No Notes: Memori a PH-7.4 2-16 (Same as: l (Bolus) IV 10:10: Isolyte S He rmann 00 PH7.4, Normosol-R PH 7.4, Plasma-Lyt e A ) sterile 2018-04 No 20 mL, Memoria water 2-15 Route: l 16:59: MISC, Drug Master 00 Form: INJ, Bedtime, PRN Other -See Comment, Start date: 04/01/19 10:59:00 CASTING MOLDER, Duration: 30 day, Stop date: 05/01/19 10:58:00 CASTING MOLDER, 0 Sodium 2018-04 No 3 gm, 3 Memoria Chloride 2-15 tab, l 1000 MG 15:49: Route: GT, Herm ruddy Oral Tablet 00 Drug form: TAB, Q8H, Dosing Weight 79.1, kg, Priority: NOW, Start date: 04/01/19 9:49:00 CASTING MOLDER, Duration: 30 day, Stop date: 05/01/19 8:00:00 CASTING MOLDER, 0 Zyprexa 2018-04 No Notes: Memoria 2-15 (Same As: l 15:42: ZyPREXA [place] IM). Reconstitu te with 2.1 ml sterile water for injection; use within 1 hour after reconstitu tion. For IM use only; do not administer IV or SUB-Q. Zyprexa 2018-04 No 10 mg, Memoria 2-15 Route: IM, l 15:40: Drug form: Master 00 INJ, BID, Dosing Weight 79.1, kg, PRN Agitation, Start date: 04/01/19 9:40:00 CASTING MOLDER, Duration: 30 day, Stop date: 05/01/19 9:39:00 CASTING MOLDER Zyprexa 2018-04 No Notes: Memoria 2-15 (Same as: l 00:07: ZyPREXA) [place] 00 ZyPREXA 2018-04 No Notes: Memoria 2-15 (Same as: l 00:07: ZyPREXA) [place] 00 Water 1000 2018-04 No 914.5 mL, Me moria MG/ML 2-14 Rate: 50 l Injectable 06:03: ml/hr, Fabi nn Solution 00 Infuse over: 20 hr, Route: IV, Dosing Weight 79.1 kg, Total Volume: 1,000, Start date: 03/31/19 0:03:00 CASTING MOLDER, Duration: 30 day, Stop date: 04/30/19 0:02:00 CASTING MOLDER, For IMU and ICU use only. See Order Comments!! , 1.99, m2, 0 Seroquel 2018-04 No Notes: Memoria 2-13 (Same as: l 22:23: SEROquel) [place] 00 Sodium 2018-04 No 3 gm, 3 Memoria Chloride 2-13 tab, l 1000 MG 18:30: Route: PO, Herm ruddy Oral Tablet 00 Drug form: TAB, Q8H-05, Dosing Weight 79.1, kg, Start date: 03/30/19 12:30:00 CASTING MOLDER, Duration: 30 day, Stop date: 04/29/19 5:00:00 CASTING MOLDER, 0 DDAVP 2018-04 No Notes: Memoria 2-13 (Same As: l 12:00: DDAVP) Master MEDICATION WASTE Product Size: 4 microgram Product Wasted: ___ microgram Water 1000 2018-04 No 914.5 mL, Me moria MG/ML 2-13 Rate: 50 l Injectable 10:07: ml/hr, Fabi nn Solution 00 Infuse over: 20 hr, Route: IV, Dosing Weight 79.1 kg, Total Volume: 1,000, Start date: 03/30/19 4:07:00 CASTING MOLDER, Duration: 30 day, Stop date: 04/29/19 4:06:00 CASTING MOLDER, For IMU and ICU use only. See Order Comments!! , 1.99, m2, 0 Hydralazine 2018-04 No Notes: [place] 2-12 (Same as: l 22:23: Apresoline [place] ) Push over 5 minutes Labetalol 2018-04 No 10 mg, 2 [place] 2-12 mL, Route: l 22:23: IVP, Drug Master form: INJ, Q15Min, Dosing Weight 79.1, kg, PRN Elevated BP, Start date: 03/29/19 16:23:00 CASTING MOLDER, Duration: 30 day, Stop date: 04/28/19 16:22:00 CASTING MOLDER, 0 heparin 2018-04 No Notes: Memoria sodium, 2-12 porcine l porcine 22:00: heparin [place] 2500 UNT/ML 00 Injectable Solution Dextrose 5% 2018-04 No 1,000 mL, M emoria in Water IV 2-12 Rate: 50 l 1,000 mL 16:12: ml/hr, Master 00 Infuse over: 20 hr, Route: IV, Dosing Weight 79.1 kg, Total Volume: 1,000, Start date: 03/29/19 10:12:00 CASTING MOLDER, Duration: 30 day, Stop date: 04/28/19 10:11:00 CASTING MOLDER, 1.99, m2, 0 DDAVP 2018-04 No Notes: Memoria 2-12 (Same As: l 16:00: DDAVP) Master 00 MEDICATION WASTE Product Size: 4 microgram Product Wasted: ___ microgram carvedilol 2018-04 No Notes: Memor ia 2-12 Give with l 15:00: food. Master 00 (Same As: Coreg) docusate 2018-04 No Notes: Memoria sodium 150 2-12 (Same as: l mg/15 mL 15:00: Colace) Quoc n oral liquid 00 Levetiracet 2018-04 No Notes: [place] am 2-12 Same as: l 15:00: Keppra [place] 00 sennosides, 2018-04 No Notes: [place] HALF-WAY 2-12 (Same as: l 15:00: Senokot) [place] 00 Docusate 2018-04 No Notes: Memoria 2-12 (Same as: l 15:00: Colace) Master 00 (Do Not Crush) Saline 2018-04 No Notes: Memoria Flush 0.9% 2-12 Same as: l 15:00: BD Master 00 Posiflush Sterile Thyroxine 2018-04 No Notes: Memori a 2-12 Take 1 l 12:30: hour Master 00 [...] 1,000, Priority: STAT, Start date: 03/29/19 4:59:00 CASTING MOLDER, Duration: 30 day, Stop date: 04/28/19 4:58:00 CASTING MOLDER, For IMU and ICU use only. See Order Comments!! ... Potassium 2018-04 No Notes: Memori a Chloride 2-12 (Same as: l 06:19: KCL) Master 00 Infuse no faster than 10 mEq/hr if given peripheral ly. sodium 2018- No Notes: Memoria phosphate 2-12 Infuse l 06:19: over 4 Master 00 hour. Do not infuse phosphorou s concurrent ly in the same line as TPN or IVF that contains calcium. For double lumen central lines, phosphorou s may be infused in a separate lumen from TPN. potassium 2018-04 No Notes: Memori a phosphate 2-12 (Same as: l 06:19: K [place] 00 Phosphate. ) Do not infuse phosphorou [...] F/P l 06:19: - Sink; E Master - Municipal Trash Bin Magnesium 2018-04 No Notes: Memori a Oxide 2-12 (Same as: l 06:19: Mag-Ox [place] 00 400) Magnesium oxide [id number] g elemental magnesium Dose=____m g magnesium oxide (___mg elemental magnesium) Calcium 2018-04 No Notes: Memoria Gluconate 2-12 WASTE: F/P l 06:19: - Sink; E Master 00 - Municipal Trash Bin Calcium 2018-04 No Notes: Memoria Carbonate -12 (Same As: l 500 MG 06:19: Tums) [place] Chewable 00 Calcium Tablet Carbonate 500 mg = 200 mg elemental calcium Dose = mg calcium carbonate ( mg elemental calcium) Iohexol 2018-04 No 100 mL, Memoria 2-12 Route: l 05:23: IVP, Drug [place] 00 Form: SOLN, Dosing Weight 86.364, kg, ONCALL, STAT, Start date: 03/28/19 23:23:00 CASTING MOLDER, Duration: 1 doses or times, Dose = [...] Rate: 50 l 0.9% IV 04:05: ml/hr, [place] 1,000 mL 00 Infuse over: 20 hr, Route: IV, Dosing Weight 86.364 kg, Total Volume: 1,000, Start date: 03/28/19 22:05:00 CASTING MOLDER, Duration: 30 day, Stop date: 04/27/19 22:04:00 CASTING MOLDER, 2.08, m2, 0 Acetaminoph 2018-04 No Notes: Do M emoria en 2-12 not exceed l 04:05: 4 gm/day. [place] 00 (Same as: Tylenol) Acetaminoph 2018-04 No Notes: [place] en 325 MG / -12 (Same as: l Hydrocodone 04:05: [place] Fabi nn Bitartrate 00 325/5) Do 5 MG Oral not exceed Tablet 4gm/day of acetaminop hen. Acetaminoph 2018-04 No Notes: Do M emoria en 325 MG / 2-12 not exceed l Hydrocodone 04:05: 4gm/day of Master Bitartrate 00 acetaminop 10 MG Oral hen. Tablet (Same as: [place] 325/10) Morphine 2018-04 No Notes: Memoria 2-12 (Same l 04:05: as:MORPhin [place] 00 e Sulfate) Bisacodyl 2018-04 No Notes: Memori a 2-12 (Same As: l 04:05: Dulcolax, [place] Bisco-Lax) Ondansetron 2018-04 No Notes: [place] 2-12 (Same as: l 04:05: Zofran) [place] MEDICATION WASTE Product Size: 4 mg Product Wasted: ___ mg Benadryl 2018-04 No Notes: Memoria 2-12 (Same as: l 04:05: Benadryl) [place] phenol 2018-04 No Notes: Memoria 2-12 Chlorasept l 04:05: ic [place] Master (Same as: Chlorasept ic, Sore Throat [place]) WASTE: F/P - Black; E - Municipal Trash Bin Melatonin 3 2018-04 No Notes: [place] MG Extended 2-12 (Same as: l Release 04:05: Melatonin) Herm ruddy Tablet 00 Saline 2018-04 No Notes: Memoria Flush 0.9% 2-12 Same as: l 04:05: BD Master 00 Posiflush Sterile Dextrose 2018-04 No 25 gm, 50 [place] 50% Syringe 2-12 mL, Route: l (D50W) 04:05: IVP, Drug Quoc n 00 Form: INJ, Dosing Weight 86.364, kg, PRN, PRN Abnormal Lab Result, Start date: 03/28/19 22:05:00 CASTING MOLDER, Duration: 30 day, Stop date: 04/27/19 22:04:00 CASTING MOLDER, 0 Regular 2018-04 No Notes: Memoria Insulin, [...] Weight 90.9, kg, Start date: 03/09/19 18:00:00 CASTING MOLDER, Stop date: 04/13/19 12:00:00 CASTING MOLDER, 0 Melatonin 3 2018-04 Yes 3 mg = 1 Me moria MG Extended -22 tab, PO, l Release 19:44: Bedtime, Quoc n Tablet 00 PRN Sleep, 0 Refill(s) Melatonin 3 2018-04 No 3 mg, 1 Mem oria MG Extended 05-09 tab, l Release 19:43: Route: PO, Herm ruddy Tablet 00 Dosing Weight 90.9, kg, Bedtime, PRN Sleep, Start date: 03/09/19 13:43:00 CASTING MOLDER, Duration: 30 day, Stop date: 04/08/19 13:42:00 CASTING MOLDER Sodium 2018-04 No 3 gm, Memoria Chloride 05-09 Route: l 1000 MG 19:00: PEG, TID, Fabi nn Oral Tablet 00 Dosing Weight 90.9, kg, Start date: 03/09/19 13:00:00 CASTING MOLDER, Duration: 30 day, Stop date: 04/08/19 9:00:00 CASTING MOLDER Imodium A-D 2018-04 Yes 1 mg, PO, M emoria 05-09 Q6H, PRN l 18:50: Diarrhea, [place] 00 0 Refill(s) Lanolin 2018-04 No Notes: Memoria 0.157 MG/MG 05-09 (Same as: l / Menthol 18:49: Calmosepti He rmann 0.0044 00 ne) MG/MG / Petrolatum 0.24 MG/MG / Zinc Oxide 0.206 MG/MG Topical Ointment [Calmosepti ne] Imodium A-D 2018-04 No Notes: [place] 05-09 Same as l 18:48: Imodium [place] 00 Sodium 2018-04 Yes 3 gm, PO, Memori a Chloride 05-09 Q6H, 0 l 1000 MG 18:23: Refill(s) Fabi nn Oral Tablet 00 carvedilol 2018-04 Yes 3.125 mg = M emoria 3.125 mg 05-09 1 tab, l oral tablet 17:06: PEG, Q12H, [place] 00 0 Refill(s) Levetiracet 2018-04 Yes 500 mg = 5 Memoria am 100 -22 mL, PEG, l MG/ML Oral 17:06: Q12H, 0 Herm ruddy Solution 00 Refill(s) [Keppra] levothyroxi 2018-04 Yes 50 Memori a ne 50 mcg -22 microgram l (0.05 mg) 17:06: = 1 tab, Herm ruddy oral tablet 00 PEG, Q630AM, 0 Refill(s) LORazepam 2018-04 Yes 0.5 mg = 1 Me moria 0.5 mg oral 22 tab, GT, l tablet 14:27: Q6H, [place] 00 NEEDED FOR ANXIETY, 0 Refill(s) Bisacodyl 2018-04 No 10 mg = 1 Mem oria 10 MG 05-09 supp, MN, l Rectal 14:27: Q24H, Master Suppository 00 NEEDED, 0 [Dulcolax] Refill(s) heparin 2018-04 No 2,500 unit [place] sodium, 05-09 = 1 mL, l porcine 14:27: SUB-Q, Master 2500 UNT/ML 00 Q8H, DVT Injectable PROPHYLAXI Solution S, # 10 vial, 0 Refill(s) Albuterol 2018-04 No 3 mL, NEB, Me moria 0.833 MG/ML 05-09 Q4H, l / 14:27: NEEDED, 0 [place] Ipratropium 00 Refill(s) Ranger 0.167 MG/ML Inhalant Solution [DuoNeb] Lactulose 2018-04 Yes 20 gm = 30 Me moria 667 MG/ML - mL, GT, l Oral 14:27: Q12H, 0 Master Solution 00 Refill(s) omeprazole 2018-04 Yes 40 mg = 2 Me moria 20 mg oral 22 cap, GT, l delayed 14:27: Daily, 0 Quoc n release 00 Refill(s) capsule Senna 8.6 2018-04 Yes 8.6 mg = 1 Me moria mg oral -22 tab, GT, l tablet 14:27: BID, 0 [place] 00 Refill(s) Acetaminoph 2018-04 No 650 mg = 2 Memoria en 325 MG -22 tab, PO, l Oral Tablet 14:27: Q6H, Her addison [Tylenol] 00 NEEDED FOR PAIN, 0 Refill(s) lansoprazol 2018-04 No Notes: [place] e 1-22 Take 1 l 13:30: hour Master 00 before or 2 hours after meal; Expires in 14 days. Shake well before use. (Same as:Prevaci d) Compound ed Product - formulatio n not commercial ly available* * lansoprazol 2018-04 No Notes: [place] e 1-22 Take 1 l 06:25: hour [place] 00 before or 2 hours after meal; Expires in 14 days. Shake well before use. (Same as:Prevaci d) Compound ed Product - formulatio n not commercial ly available* * Melatonin 2018-04 No Notes: Memori a 1-22 (Same as: l 06:24: Melatonin) [place] 00 heparin 2018-04 No Notes: Memoria sodium, 1-21 porcine l porcine 05:55: heparin [place] 2500 UNT/ML 00 Injectable Solution Docusate 2018-04 No Notes: Memoria Sodium 50 1-20 (Same as l MG / 15:00: Senokot-S) [place] sennosides, 00 Equiv. to HALF-WAY 8.6 MG Kelsey-Colac Oral Tablet e. Levetiracet 2018-04 No Notes: [place] am 100 1-20 Same as: l MG/ML Oral 15:00: Keppra Fabi nn Solution 00 [Keppra] carvedilol 2018-04 No Notes: Memor ia 1-20 Give with l 15:00: food. Master 00 (Same As: Coreg) Beneprotein 2018-04 No Notes: [place] 7 gm pkt 1-20 (Same as: l 13:30: Beneprotei [place] 00 n) Thyroxine 2018-04 No Notes: Memori a 1-20 Take 1 l 12:30: hour Master 00 before or 2 hours after meal; Enteral feeds may interefere with the absorption of this medication .(Same as:Levothr oid, Synthroid) Levetiracet 2018-04 No Notes: [place] am 1-20 Same as l 03:00: Keppra [place] 00 Mix with 100 mL NS, LR or D5W MEDICATION WASTE Product Size: 500 mg Product Wasted: ___ mg Docusate 2018-04 No Notes: Memoria 1-20 (Same as: l 03:00: Colace) [place] 00 (Do Not Crush) sennosides, 2018-04 No Notes: [place] HALF-WAY 1-20 (Same as: l 03:00: Senokot) Master 00 Saline 2018-04 No Notes: Memoria Flush 0.9% 1-20 (Same as: l 03:00: BD Master 00 Posiflush) Sodium 2018-04 No 1,000 mL, Memori a Chloride 1-20 Rate: 50 l 0.9% IV 02:28: ml/hr, [place] 1,000 mL 00 Infuse over: 20 hr, Route: IV, Dosing Weight 90.909 kg, Total Volume: 1,000, Start date: 03/06/19 20:28:00 CASTING MOLDER, Duration: 30 day, Stop date: 04/05/19 20:27:00 CASTING MOLDER, 2.1, m2, 0 Acetaminoph 2018-04 No Notes: Do M emoria en 1-20 not exceed l 02:28: 4 gm/day. [place] 00 (Same as: Tylenol) Bisacodyl 2018-04 No Notes: Memori a 1-20 (Same As: l 02:28: Dulcolax, [place] 00 Bisco-Lax) Ondansetron 2018-04 No Notes: [place] 1-20 (Same as: l 02:28: Zofran) Master 00 MEDICATION WASTE Product Size: [...] Abnormal Lab Result, Start date: 03/06/19 20:28:00 CASTING MOLDER, Duration: 30 day, Stop date: 04/05/19 20:27:00 CASTING MOLDER, 0 Regular 2018-04 No Notes: Memoria Insulin, 1-20 (Same as: l Human 100 02:28: Humulin R) He rmann UNT/ML 00 Roll in Injectable palms of Solution hands gently; Do not shake vigorously . WASTE: F/P - Black; E - Municipal Trash Bin Stable for 31 days at room temperatur e Expires in days from ____Date Acetaminoph 2018-04 Yes 100.4 F, M emoria en 04-30 0 l 21:13: Refill(s) [place] 00 carvedilol 2018-04 Yes 3.125 mg = M emoria 3.125 mg 04-30 1 tab, GT, l oral tablet 21:13: Q12H, 0 Her addison 00 Refill(s) cefepime 2018-04 Yes 2 gm, IVP, Mem oria 04-30 [id number], 0 l 21:13: Refill(s) [place] 00 heparin 2018-04 No SUB-Q, Memoria sodium, 04-30 Q8H, 0 l porcine 21:13: Refill(s) Fabi [...] tab, PEG, l tablet 21:13: Q12H, 0 [place] 00 Refill(s) senna 8.8 2018-04 Yes 8.8 mg = 5 Me moria mg/5 mL -13 mL, [place], l oral syrup 21:13: BID, 0 Fabi nn 00 Refill(s) Metronidazo 2018-04 Yes 500 mg = 1 Memoria le 500 MG 13 tab, PEG, l Oral Tablet 21:13: [id number], 0 H ermann 00 Refill(s) lansoprazol 2018-04 Yes PEG, Memori a e 13 BID-Before l 21:13: Meals, 0 Master 00 Refill(s) Miralax 2018-04 No Notes: Memoria 1-13 Dissolve l 15:00: in 8 oz of [place] 00 water or juice. (Same as: Miralax) Levetiracet 2018-04 No Notes: [place] am 500 MG 04-30 Same as: l Oral Tablet 03:00: Keppra Herm ruddy [Keppra] 00 Dextrose 2018-04 No 12.5 gm, Memor ia 50% Syringe 04-30 25 mL, l 02:16: Route: Master 00 IVP, Drug Form: INJ, Dosing Weight 87.9, kg, PRN, PRN Blood Glucose Results, Start date: 02/27/19 20:16:00 CASTING MOLDER, Duration: 30 day, Stop date: 03/29/19 20:15:00 CASTING MOLDER, 0 Glucagon 2018-04 No 1 mg, Memoria 04-30 Route: IM, l 02:16: Drug form: PDR/INJ, PRN, Dosing Weight 87.9, kg, PRN Blood Glucose Results, Start date: 02/27/19 20:16:00 CASTING MOLDER, Duration: 30 day, Stop date: 03/29/19 20:15:00 CASTING MOLDER, 0 Insulin 2018-04 No Notes: Memoria Lispro [...] IV 1-10 500 ml/hr, l 13:05: Infuse Master 00 Over: 1 hr, Route: IV, 500, Drug form: INJ, ONCE, Priority: STAT, Dosing Weight 87.9 kg, Start date: 02/25/19 7:05:00 CASTING MOLDER, Stop date: 02/25/19 7:05:00 CASTING MOLDER, 0 Seroquel 2019-1 No Notes: Memoria 1-10 (Same as: l 03:00: SEROquel) Zofran 2018-04 No Notes: Memoria 04-26 (Same as: l 23:11: Zofran) MEDICATION WASTE Product Size: 4 mg Product Wasted: ___ mg Thyroxine 2018-04 No 50 Memoria - microgram, l 12:30: Route: PO, Drug form: TAB, Q630AM, Dosing Weight 87.9, kg, Start date: 02/24/19 6:30:00 CASTING MOLDER, Duration: 30 day, Stop date: 03/25/19 6:30:00 CASTING MOLDER pantoprazol 2018-04 No 40 mg, [place] e 04-26 Route: l 03:00: PEG, Q12H, Dosing Weight 87.9, kg, Start date: 02/23/19 21:00:00 CASTING MOLDER, Duration: 30 day, Stop date: 03/25/19 9:00:00 CASTING MOLDER cefepime 2018-04 No Notes: Memoria 04-26 (Same as: l 02:00: Maxipime) MEDICATION WASTE Product Size: 2000 mg Product Wasted: ___ mg normal 2018-04 No 1,000 mL, Memori a saline 0.9% 04-26 Rate: l IV 1,000 mL 00:49: 1,000 Fabi nn 00 ml/hr, Infuse over: 1 hr, Route: IV, Dosing Weight 87.9 kg, Total Volume: 1,000, Start date: 02/23/19 18:49:00 CASTING MOLDER, Duration: 1 doses or times, Stop date: 02/23/19 19:48:00 CASTING MOLDER, 2.05, m2, 0 normal 2018-04 No 1,000 mL, Memori a saline 0.9% 04-25 Rate: l IV 1,000 mL 23:09: 1,000 Fabi nn 00 ml/hr, Infuse over: 1 hr, Route: IV, Dosing Weight 87.9 kg, Total Volume: 1,000, Start date: 02/23/19 17:09:00 CASTING MOLDER, Duration: 1 doses or times, Stop date: 02/23/19 18:08:00 CASTING MOLDER, 2.05, m2, 0 Prevacid 2018-04 No Notes: Memoria -08 Take 1 l 22:30: hour Master 00 before or 2 hours after meal; Expires in 14 days. Shake well before use. (Same as:Prevaci d) Compound ed Product - formulatio n not commercial ly available* * Beneprotein 2018-04 No Notes: [place] 7 gm pkt 04-25 (Same as: l 22:30: Beneprotei Master 00 n) sugammadex 2018-04 No Notes: Memor ia 04-25 (Same as: l 20:19: Bridion) Master 00 Flagyl 2018-04 No Notes: Memoria 04-25 (Same as: l 18:00: Flagyl) Avoid alcohol. ondansetron 2018-04 No Route: IV, Memoria (ANES) 04-25 Drug form: l 15:15: INJ, ONCE, Stop date: 02/23/19 9:15:00 CASTING MOLDER ePHEDrine 2018-04 No Route: IV, Me moria (ANES) 04-25 Drug form: l 15:06: INJ, ONCE, Stop date: 02/23/19 9:06:00 CASTING MOLDER ANES 2018-04 No 0.625 mg, Memoria Enalaprilat 04-25 Route: l 14:41: IVP, Master 00 Q5Min, Dosing Weight 87.9, kg, PRN Elevated BP, Start date: 02/23/19 8:41:00 CASTING MOLDER, Duration: 4 doses or times, Stop date: Limited # of times Hydralazine 2018-04 No 10 mg, [place] 04-25 Route: l 14:41: IVP, Master 00 Q20Min, Dosing Weight 87.9, kg, PRN Elevated BP, Start date: 02/23/19 8:41:00 CASTING MOLDER, Duration: 2 doses or times, Stop date: Limited # of times esmolol 2018-04 No 10 mg, Memoria 04-25 Route: l 14:41: IVP, [place] 00 Q5Min, Dosing Weight 87.9, kg, PRN Other -See Comment, Start date: 02/23/19 8:41:00 CASTING MOLDER, Duration: 5 doses or times, Stop date: Limited # of times Labetalol 2018-04 No 10 mg, Memori a 04-25 Route: l 14:41: IVP, [place] 00 Q5Min, Dosing Weight 87.9, kg, PRN Elevated BP, Start date: 02/23/19 8:41:00 CASTING MOLDER, Duration: 5 doses or times, Stop date: Limited # of times Acetaminoph 2018-04 No 1,000 mg, M emoria en 04-25 Route: PO, l 14:41: Drug form: [place] 00 TAB, ONCE, Dosing Weight 87.9, kg, PRN Pain Score 1-3, Start date: 02/23/19 8:41:00 CASTING MOLDER Oxycodone 2018-04 No 5 mg, Memoria 04-25 Route: NG, l 14:41: Drug form: Master 00 LIQ, Q4H, Dosing Weight 87.9, kg, PRN Pain Score 4-6, Start date: 02/23/19 8:41:00 CASTING MOLDER, Duration: 30 day, Stop date: 03/25/19 8:40:00 CASTING MOLDER Flumazenil 2018-04 No 0.2 mg, [place] 04-25 Route: l 14:41: IVP, PRN, Dosing Weight 87.9, kg, PRN Benzodiaze pine Reversal, Initial dose, Start date: 02/23/19 8:41:00 CASTING MOLDER, Duration: 30 day, Stop date: 03/25/19 8:40:00 CASTING MOLDER Naloxone 2018-04 No 0.4 mg, Memori a 04-25 Route: l 14:41: IVP, Master 00 Q2MIN, Dosing Weight 87.9, kg, PRN Narcotic Reversal, Start date: 02/23/19 8:41:00 CASTING MOLDER, Duration: 8 doses or times, Stop date: Limited # of times Ondansetron 2018-04 No 4 mg, Memor ia 04-25 Route: l 14:41: IVP, ONCE, Dosing Weight 87.9, kg, PRN Nausea & Vomiting, Start date: 02/23/19 8:41:00 CASTING MOLDER propofol 2018-04 No Route: IV, Mem oria (ANES) 04-25 Drug form: l 14:35: INJ, ONCE, Stop date: 02/23/19 8:35:00 CASTING MOLDER rocuronium 2018-04 No Route: IV, Nathalie emoria (ANES) 04-25 Drug form: l 14:35: INJ, ONCE, Stop date: 02/23/19 8:35:00 CASTING MOLDER fentaNYL 2018-04 No Route: IV, Mem oria (ANES) 04-25 Drug form: l 14:35: INJ, ONCE, Stop date: 02/23/19 8:35:00 CASTING MOLDER phenylephri 2018-04 No Route: IV, Memoria ne (ANES) 04-25 Drug form: l 14:35: INJ, ONCE, [place] 00 Stop date: 02/23/19 8:35:00 CASTING MOLDER ceFAZolin 2018-04 No Route: IV, moria (ANES) 04-25 Drug form: l 14:30: INJ, ONCE, Stop date: 02/23/19 8:30:00 CASTING MOLDER Adult 2018-04 No Notes: Memoria Parenteral 04-25 Must use l Nutrition 04:00: 1.2 micron He rmann filter AND Peripheral Lipids (PPN not should not TPN) 2,160 be mL administer ed to patients who are allergic to soy, fish, egg or peanuts. Sodium 2018-04 No 1,000 mL, Memori a Chloride -07 500 ml/hr, l 0.9% 20:15: Infuse Master (Bolus) IV 00 Over: 2 hr, Route: IV, 1,000, Drug form: INJ, ONCE, Priority: STAT, Dosing Weight 87.9 kg, Start date: 02/22/19 14:15:00 CASTING MOLDER, Stop date: 02/22/19 14:15:00 CASTING MOLDER, 0 Tylenol 2018-04 No Notes: Max [place] - acetaminop l 20:13: hen = 4000 [place] 00 mg/day (4 gm/day). (Same as: Tylenol) Thyroxine 2018-04 No Notes: Memori a 1- (Same as: l 16:30: Synthroid) Reconstitu te with 5ml of NS. Final concentrat ion = 20 micrograms /ml. Use immediatel y after reconstitu tion and discard remaining solution. Zosyn 2018-04 No Notes: Memoria 1-07 (Same as: l 16:00: Zosyn) Master 00 Dosing based on Piperacill in component MEDICATION WASTE Product Size: 3375 mg Product Wasted: ___ mg Bisacodyl 2018-04 No Notes: Memori a 04-24 (Same As: l 09:59: Dulcolax, [place] Bisco-Lax) Adult 2018-04 No Notes: Memoria Parenteral 04-24 Must use l Nutrition 04:00: 1.2 micron He rmann - filter AND Peripheral Lipids (PPN not should [...] Weight 87.9, kg, Start date: 02/21/19 7:30:00 CASTING MOLDER, Duration: 30 day, Stop date: 03/22/19 7:30:00 CASTING MOLDER Protonix 2018-04 No Notes: For Mem oria 04-23 IV push l 03:00: reconstitu Master 00 te with 10 ml 0.9% sodium chloride and push over 2 minutes. (Same as: Protonix) Morphine 2018-04 No Notes: Memoria 04-23 (Same l 02:19: as:MORPhin [place]imayo 00 e Sulfate) Protonix 2018-04 No Notes: Memoria - Same as: l 22:30: Protonix Master 00 Mix in 5 mL apple juice or applesauce for oral & 10mL apple juice for NG tube Vimpat 2018-04 No Notes: Memoria -05 Same as: l 15:00: Vimpat [place]im[place] 00 Labetalol 2018-04 No 20 mg, 4 Rito [place] 1-05 mL, Route: l 07:35: IVP, Drug Chimayo 00 form: INJ, Q2H, Dosing Weight 87.9, kg, PRN Other -See Comment, Start date: 02/20/19 1:35:00 CASTING MOLDER, Duration: 30 day, Stop date: 03/22/19 1:34:00 CASTING MOLDER, 0 Vimpat 2018-04 No Notes: Memoria - Same as: l 00:04: Vimpat Master 00 MEDICATION WASTE Product Size: 200 mg Product Wasted: ___ mg Fentanyl 2018-04 No Notes: Memoria 04-22 (Same as: l 00:04: Sublimaze) [place]o 00 Preservat kemal free. Versed 2018-04 No Notes: Memoria 04-22 (Same as: l 00:04: Versed) Master 00 MEDICATION WASTE Product Size: 2 mg Product Wasted: ___ mg Vimpat 2018-04 No Notes: Memoria 04-21 Same as: l 03:00: Vimpat [place]im[place]o 00 MEDICATION WASTE Product Size: 200 mg Product Wasted: ___ mg heparin 2018-04 No Notes: Memoria sodium, 04-20 porcine l porcine 22:00: heparin Chimayo 2500 UNT/ML 00 Injectable Solution Vimpat + 2018-04 No Notes: Memoria Sodium 04-20 Same as: l Chloride 21:19: Vimpat Master 0.9% IV 100 00 mL MEDICATION WASTE Product Size: 200 mg Product Wasted: 0 mg Vimpat 2018-04 No Notes: Memoria 04-20 Same as: l 20:52: Vimpat Master 00 MEDICATION WASTE Product Size: 200 mg Product Wasted: 0 mg Labetalol 2018-04 No 20 mg, 4 Rito [place] 1-03 mL, Route: l 17:40: IVP, Drug form: INJ, Q15Min, Dosing Weight 87.9, kg, PRN Hypertensi on, Start date: 02/18/19 11:40:00 CASTING MOLDER, Duration: 3 doses or times, Stop date: Limited # of times, 0 Thyroxine 2018-04 No Notes: Memori a - (Same as: l 15:45: Synthroid) Chimayo 00 Reconstitu te with 5ml of NS. Final concentrat ion = 20 micrograms /ml. Use immediatel y after reconstitu tion and discard remaining solution. Dexmedetomi 2018-04 No Notes: Use Memoria dine 1-03 the l 15:43: following Chimayo cdm for [id number]. Isolyte S 2018-04 No Notes: Memori a [...] Duration: 30 day, Stop date: 03/19/19 16:30:00 CASTING MOLDER, 2.05, m2, 0 normal 2018-04 No 2,000 mL, Memori a saline 0.9% 04-19 Rate: 50 l IV 2,000 mL 18:17: ml/hr, Herm ruddy Infuse over: 40 hr, Route: IV, Dosing Weight 87.9 kg, Total Volume: 2,000, Start date: 02/17/19 13:17:00 CDT, Duration: 1 doses or times, Stop date: 02/18/19 13:16:00 CASTING MOLDER, 2.05, m2, 0 Ativan 2018-04 No Notes: Memoria 04-19 (Same as: l 17:15: Ativan) [place]im[place]o Morphine 2018-04 No Notes: Memoria 04-19 (Same l 16:58: as:MORPhin Master 00 e Sulfate) Valproic 2018-04 No 1,500 mg, [place] Acid 100 04-19 Route: IV, l MG/ML 13:41: ONCE, [place] Injectable 00 Dosing Solution Weight 89, kg, Start date: 02/17/19 8:41:00 CDT, Stop date: 02/17/19 8:41:00 CDT Valproic 2018-04 No 1,500 gm, [place] Acid 100 04-19 Route: IV, l MG/ML 13:11: ONCE, [place] Injectable 00 Dosing Solution Weight 89, kg, Priority: STAT, Start date: 02/17/19 8:11:00 CDT, Stop date: 02/17/19 8:11:00 CDT Labetalol 2018-04 No 10 mg, 2 [place] 1-02 mL, Route: l 13:10: IVP, Drug form: INJ, Q15Min, Dosing Weight 89, kg, PRN Hypertensi on, Start date: 02/17/19 8:10:00 CDT, Duration: 3 doses or times, Stop date: 03/17/19 0:00:00 CASTING MOLDER, 0 NS 1,000 mL 2018-04 No 1,000 mL, M emoria 04-19 Rate: 40 l 08:00: ml/hr, Master 00 Infuse over: 25 hr, Route: IV, Dosing Weight 89 kg, Total Volume: 1,000, Start date: 02/17/19 3:00:00 CDT, Duration: 30 day, Stop date: 03/19/19 2:59:00 CASTING MOLDER, 2.06, m2, 0 NS (Bolus) 2018-04 No 500 mL, [place] IV 04-19 500 ml/hr, l 07:47: Infuse Over: 1 hr, Route: IV, 500, Drug form: INJ, ONCE, Priority: STAT, Dosing Weight 89 kg, Start date: 02/17/19 2:47:00 CDT, Stop date: 02/17/19 2:47:00 CDT, 0 NS 1,000 mL 2018-04 No 1,000 mL, M emoria 04-19 Rate: 100 l 07:47: ml/hr, Infuse over: 10 hr, Route: IV, Dosing Weight 89 kg, Total Volume: 1,000, Start date: 02/17/19 2:47:00 CDT, Duration: 30 day, Stop date: 03/19/19 2:46:00 CASTING MOLDER, 2.06, m2, 0 Norepinephr 2018-04 No Notes: Not Memoria ine 04-19 for direct l 07:46: administra [place] 00 tion - DILUTE. Protect from light. (Same as:Levophe d). Administer by either central venous catheter or peripheral ly-inserte d central catheter (PICC) line. Lidocaine 2018-04 No Notes: Memori a Hydrochlori 04-19 (Same as: l de 0.02 03:53: Uro-Jet) Quoc n MG/MG 00 Topical Gel Dexmedetomi 2018-04 No Notes: Use Memoria dine 04-18 the l 21:54: following [place] 00 cdm for [id number]. heparin 2018-04 No Notes: Memoria sodium, 04-18 porcine l porcine 21:00: heparin [place] 2500 UNT/ML 00 Injectable Solution propofol 10 2018-04 No Notes: If M emoria mg/mL 04-18 Diprivan - l (Titrate.) 19:45: change Fabi nn IV 1,000 mg 00 bottle & tubing every 12 hr Per state nursing law propofol can only be given by a nurse if patient is intubated or being intubated (unless the nurse is a APPLICATION TECHNICIAN). Same as: Diprivan Albuterol 2018-04 No Notes: SEE Me moria 0.83 MG/ML 04-18 RT l Inhalant 08:19: DOCUMENTAT Her addison Solution 00 ION (Same as: Proventil) Albuterol 2018-04 No Notes: Memori a 0.833 MG/ML 04-18 (Same as: l / 07:00: Duoneb) Master Ipratropium 00 Ranger 0.167 MG/ML Inhalant Solution [DuoNeb] Sodium 2018-04 No Notes: SEE Memor ia Chloride 3% 04-18 RT l inhalation 07:00: DOCUMENTAT H ermann solution 00 ION (Same as: Hypertonic Saline 3%, Inhalation ) Coreg 2018-04 No 3.125 mg, Memoria 04-18 Route: GT, l 02:00: Drug form: [place] 00 TAB, Q12H, Dosing Weight 89, kg, Start date: 02/15/19 21:00:00 CDT, Duration: 30 day, Stop date: 03/17/19 9:00:00 CASTING MOLDER normal 2018-04 No 1,000 mL, Memori a saline 0.9% Rate: 50 l IV 1,000 mL 21:50: ml/hr, Herm ruddy 00 Infuse over: 20 hr, Route: IV, Dosing Weight 89 kg, Total Volume: 1,000, Start date: 02/15/19 16:50:00 CDT, Duration: 30 day, Stop date: 03/17/19 16:49:00 CASTING MOLDER, 2.06, m2, 0 Versed 2018-04 No Notes: Memoria 0-31 (Same as: l 19:25: Versed) Master 00 MEDICATION WASTE Product Size: 2 mg Product Wasted: ___ mg Coreg 2018-04 No Notes: Memoria 0-31 Give with l 14:42: food. [place] 00 (Same As: Coreg) Docusate 2018-04 No Notes: Memoria 0-31 (Same as: l 14:00: Colace) Master 00 sennosides, 2018-04 No Notes: [place] HALF-WAY 0-31 (Same as: l 14:00: Senokot) [place] Vitamin K1 2018-04 No Notes: Memor ia [...] a 0-31 Take 1 l 11:30: hour [place] 00 before or 2 hours after meal; Enteral feeds may interefere with the absorption of this medication .(Same as:Levothr oid, Synthroid) ocular 2018-04 No Notes: Memoria lubricant 0-31 (Same as: l 11:00: Lacri-Lube [place] 00 , Puralube, Duratears Naturale, Artificial Tears, and Tears Again ) NS 1,000 mL 2018-04 No 1,000 mL, M emoria 0-31 Rate: 75 l 09:42: ml/hr, [place] 00 Infuse over: 13.3 hr, Route: IV, Dosing Weight 89 kg, Total Volume: 1,000, Start date: 02/15/19 4:42:00 CDT, Duration: 30 day, Stop date: 03/17/19 4:41:00 CASTING MOLDER, 2.06, m2, 0 Acetaminoph 2018-04 No Notes: Max Memoria en 0-31 acetaminop l 09:39: hen = [place] 00 4000mg/day (4 gm/day). (Same as: Tylenol) Dextrose 2018-04 No 12.5 gm, Memor ia 50% Syringe 0-31 25 mL, l 09:37: Route: IVP, Drug Form: INJ, Dosing Weight 89, kg, PRN, PRN Blood Glucose Results, Start date: 02/15/19 4:37:00 CDT, Duration: 30 day, Stop date: 03/17/19 3:36:00 CASTING MOLDER, 0 Glucagon 2018-04 No 1 mg, Memoria 0-31 Route: IM, l 09:37: Drug form: PDR/INJ, PRN, Dosing Weight 89, kg, PRN Blood Glucose Results, Start date: 02/15/19 4:37:00 CDT, Duration: 30 day, Stop date: 03/17/19 3:36:00 CASTING MOLDER, 0 Insulin 2018-04 No Notes: Memoria regular 0-31 (Same as: l 09:37: Humulin R) Roll in palms of hands gently; Do not shake vigorously . WASTE: F/P - Black; E - [employer] Trash Bin Stable for 31 days at room temperatur e Expires in days from ____Date Potassium 2018-04 No Notes: Memori a Chloride 0-31 (Same as: l 09:37: KCL) Infuse no faster than 10 mEq/hr if given peripheral ly. sodium 2018-04 No Notes: Memoria phosphate 0-31 Infuse l 09:37: over 4 [place] 00 hour. Do not infuse phosphorou s concurrent ly in the same line as TPN or IVF that contains calcium. For double lumen central lines, phosphorou s may be infused in a separate lumen from TPN. potassium 2018-04 No Notes: Memori a phosphate 0-31 (Same as: l 09:37: K [place] 00 Phosphate. ) Do not infuse phosphorou s concurrent ly in the same line as TPN or IVF that contains calcium. For double lumen central lines, phosphorou s may be infused in a separate lumen from TPN. 1 mMol phoshate has 1.47 mEq potassium Infuse over 4 hours potassium 2018-04 No Notes: Memori a phosphate-s 0-31 (Same as: l odium 09:37: Phos-NaK) [place] phosphate 00 Each 1.5 250 mg-280 gm pkt has mg-160 mg 250mg oral powder phosphorou for s. Mix reconstitut w/2.5oz ion water and stir. Magnesium 2018-04 No Notes: Memori a Sulfate 0-31 WASTE: F/P l 09:37: - Sink; E Master 00 - Municipal Trash Bin Magnesium 2018-04 No Notes: Memori a Oxide 0-31 (Same as: l 09:37: Mag-Ox [place] 00 400) Magnesium oxide [id number] g elemental magnesium Dose=____m g magnesium oxide (___mg elemental magnesium) Calcium 2018-04 No Notes: Memoria Gluconate 0-31 WASTE: F/P l 09:37: - Sink; E Master - Municipal Trash Bin Calcium 2018-04 No Notes: Memoria Carbonate 0-31 (Same As: l 500 MG 09:37: Tums) [place] Chewable 00 Calcium Tablet Carbonate 500 mg = 200 mg elemental calcium Dose = mg calcium carbonate ( mg elemental calcium) Fentanyl 2018-04 No Notes: Memoria 0-31 (Same as: l 07:04: Sublimaze) [place] 00 Preservat kemal free. Fentanyl 2018-04 No 1,000 Memoria 0-31 microgram, l 05:56: 20 mL, [place] 00 Rate: Titrate, Start Dose: 50 microgram/ [...] moria IV 0-31 1,000 l 05:51: ml/hr, [place] 00 Infuse Over: 1 hr, Route: IV, 1,000, Drug form: INJ, ONCE, Priority: STAT, Dosing Weight 90 kg, Start date: 02/15/19 0:51:00 CDT, Stop date: 02/15/19 0:51:00 CDT, 0 norepinephr 2018-04 No Route: IV, Memoria ine (ANES) 0-31 Drug form: l 02:11: INJ, ONCE, [place] 00 Stop date: 02/14/19 21:11:00 CDT Sodium 2018-04 No Route: IV, Memor ia Chloride 0-31 Total l 0.9% IV 01:00: Volume: Master (ANES) 500 00 500, Start mL date: 02/14/19 20:00:00 CDT, Stop date: 02/14/19 21:00:00 CDT rocuronium 2018-04 No Route: IV, M emoria (ANES) 0-31 Drug form: l 00:29: INJ, ONCE, Master 00 Stop date: 02/14/19 19:29:00 CDT phenylephri 2018-04 No Route: IV, Memoria ne (ANES) 0-31 Drug form: l 00:29: INJ, ONCE, [place] 00 Stop date: 02/14/19 19:29:00 CDT fentaNYL 2018-04 No Route: IV, Mem oria (ANES) 0-31 Drug form: l 00:14: INJ, ONCE, [place] Stop date: 02/14/19 19:14:00 CDT ceFAZolin 2018-04 No Route: IV, Me moria (ANES) 0-31 Drug form: l 00:04: INJ, ONCE, [place] Stop date: 02/14/19 19:04:00 CDT Sodium 2018-04 [...] Memoria 0-30 Route: l 23:01: IVP, Drug Master Form: SOLN, Dosing Weight 90, kg, ONCALL, [...] [place] 0-30 Route: l 22:43: IVPB, Drug [place] form: SOLN, ONCE, kg, Priority: STAT, Start date: 02/14/19 17:43:00 CDT, Stop date: 02/14/19 17:43:00 CDT Saline 2018-04 No 10 mL, Memoria Flush 0.9% 0-30 Route: l 22:05: IVP, Drug [place] Form: INJ, kg, PRN, PRN Line Flush, Start date: 02/14/19 17:05:00 CDT, Duration: 30 day, Stop date: 03/16/19 16:04:00 CASTING MOLDER, 0 warfarin Yes 8mg Take 8 mg Univ ers (COUMADIN) 8-30 by mouth ity o f 4 mg tablet 16:33: every [place] 29 evening. Medical Branch carvedilol Yes 3.125mg Take 3.125 [facility] (COREG) 8-30 mg by ity of 3.125 mg 16:33: mouth 2 [place] tablet 29 (two) Medical times Branch daily. warfarin 2019-0 Yes 8mg Take 8 mg Univ ers (COUMADIN) 8-30 by mouth ity o f 4 mg tablet 16:33: every [place] 29 evening. Medical Branch carvedilol Yes 3.125mg Take 3.125 [facility] (COREG) 8-30 mg by ity of 3.125 mg 16:33: mouth 2 [place] tablet 29 (two) Medical times Branch daily. warfarin Yes 8mg Take 8 mg Univ ers (COUMADIN) 8-30 by mouth ity o f 4 mg tablet 16:33: every [place] 29 evening. Medical Branch carvedilol Yes 3.125mg Take 3.125 [facility] (COREG) 8-30 mg by ity of 3.125 mg 16:33: mouth 2 [place] tablet 29 (two) Medical times Branch daily. carvedilol Yes 3.125mg Take 3.125 Univers (COREG) 8-30 mg by ity of 3.125 mg 16:33: mouth 2 [place] tablet 29 (two) Medical times Branch daily. carvedilol Yes 3.125mg Take 3.125 Univers (COREG) 8-30 mg by ity of 3.125 mg 16:33: mouth 2 [place] tablet 29 (two) Medical times Branch daily. carvedilol Yes 3.125mg Take 3.125 Univers (COREG) 8-30 mg by ity of 3.125 mg 16:33: mouth 2 [place] tablet 29 (two) Medical times Branch daily. carvedilol Yes 3.125mg Take 3.125 Univers (COREG) 8-30 mg by ity of 3.125 mg 16:33: mouth 2 [place] tablet 29 (two) Medical times Branch daily. carvedilol Yes 3.125mg Take 3.125 Univers (COREG) 8-30 mg by ity of 3.125 mg 16:33: mouth 2 [place] tablet 29 (two) Medical times Branch daily. carvedilol Yes 3.125mg Take 3.125 Univers (COREG) 8-30 mg by ity of 3.125 mg 16:33: mouth 2 [place] tablet 29 (two) Medical times Branch daily. carvedilol Yes 3.125mg Take 3.125 Univers (COREG) 8-30 mg by ity of 3.125 mg 16:33: mouth 2 [place] tablet 29 (two) Medical times Branch daily. warfarin Yes 8mg Take 8 mg Univ ers (COUMADIN) 8-30 by mouth ity o f 4 mg tablet 16:33: every [place] 29 evening. Medical Branch carvedilol Yes 3.125mg Take 3.125 Univers (COREG) 8-30 mg by ity of 3.125 mg 16:33: mouth 2 [place] tablet 29 (two) Medical times Branch daily. warfarin Yes 8mg Take 8 mg Univ ers (COUMADIN) 8-30 by mouth ity o f 4 mg tablet 16:33: every [place] 29 evening. Medical Branch carvedilol Yes 3.125mg Take 3.125 Univers (COREG) 8-30 mg by ity of 3.125 mg 16:33: mouth 2 [place] tablet 29 (two) Medical times Branch daily. carvedilol Yes 3.125mg Take 3.125 Univers (COREG) 8-30 mg by ity of 3.125 mg 11:33: mouth 2 [place] tablet 29 (two) Medical times Branch daily. carvedilol Yes 3.125mg Take 3.125 Univers (COREG) 8-30 mg by ity of 3.125 mg 11:33: mouth 2 [place] tablet 29 (two) Medical times Branch daily. carvedilol Yes 3.125mg Take 3.125 Univers (COREG) 8-30 mg by ity of 3.125 mg 11:33: mouth 2 [place] tablet 29 (two) Medical times Branch daily. carvedilol Yes 3.125mg Take 3.125 Univers (COREG) 8-30 mg by ity of 3.125 mg 11:33: mouth 2 [place] tablet 29 (two) Medical times Branch daily. levothyroxi Yes Take 50 Uni vers ne 50 mcg 8-16 mcg-Tuesday ity of tablet 00:00: through [place] [facility] and 75 mcg Branch on Tuesday, Tuesday and Tuesday levothyroxi Yes Take 50 Uni vers ne 50 mcg 8-16 mcg-Tuesday ity of tablet 00:00: through [place] [facility] and 75 mcg Branch on Tuesday, Tuesday and Tuesday levothyroxi Yes Take 50 Uni vers ne 50 mcg 8-16 mcg-Tuesday ity of tablet 00:00: through Medical and 75 mcg Branch on Tuesday, Tuesday and Tuesday levothyroxi 2020- No Take 50 Un francine ne 50 mcg 8-16 02-29 mcg-Tuesday ity of tablet 00:00: 00:00 through [place] 00 : Medical and 75 mcg Branch on Tuesday, Tuesday and Tuesday levothyroxi 2019- No One table Univers ne 50 mcg 4-24 08-16 (50 mcg) ity o f tablet 00:00: 00:00 Tuesday 00 :00 through Medical Branch and one and half tablet (75 mcg) on Tuesday, Tuesday and Tuesday warfarin Yes 8mg Take 8 mg Univ ers (COUMADIN) 2-25 by mouth ity o f 4 mg tablet 14:57: every [place] 07 evening. Medical Branch carvedilol Yes 3.125mg Take 3.125 Univers (COREG) 2-25 mg by ity of 3.125 mg 14:57: mouth 2 [place] tablet 07 (two) Medical times Branch daily. warfarin Yes 8mg Take 8 mg Univ ers (COUMADIN) 2-25 by mouth ity o f 4 mg tablet 14:57: every [place] 07 evening. Medical Branch carvedilol Yes 3.125mg Take 3.125 Univers (COREG) 2-25 mg by ity of 3.125 mg 14:57: mouth 2 [place] tablet 07 (two) Medical times Branch daily. lisinopril Yes [id number] 5mg Take 5 mg Univers 5 mg tablet 2-12 by mouth ity of 00:00: daily. [facility] Branch lisinopril Yes [id number] 5mg Take 5 mg Univers 5 mg tablet 2-12 by mouth ity of 00:00: daily. [facility] Branch lisinopril Yes [id number] 5mg Take 5 mg Univers 5 mg tablet 2-12 by mouth ity of 00:00: daily. [facility] lisinopril Yes [id number] 5mg Take 5 mg Univers 5 mg tablet 2-12 by mouth ity of 00:00: daily. [facility] Branch lisinopril 2018-0 Yes [id number] 5mg Take 5 mg Univers 5 mg tablet 2-12 by mouth ity of 00:00: daily. [facility] lisinopril 2017-0 Yes [id number] 5mg Take 5 mg Univers 5 mg tablet 2-12 by mouth ity of 00:00: daily. [facility] lisinopril 2017-0 Yes [id number] 5mg Take 5 mg Univers 5 mg tablet 2-12 by mouth ity of 00:00: daily. [facility] lisinopril 2017-0 Yes [id number] 5mg Take 5 mg Univers 5 mg tablet 2-12 by mouth ity of 00:00: daily. [place] [facility] lisinopril 2017-0 Yes [id number] 5mg Take 5 mg Univers 5 mg tablet 2-12 by mouth ity of 00:00: daily. [place] [facility] lisinopril 2017-0 Yes [id number] 5mg Take 5 mg Univers 5 mg tablet 2-12 by mouth ity of 00:00: daily. [facility] lisinopril 2017-0 Yes [id number] 5mg Take 5 mg Univers 5 mg tablet 2-12 by mouth ity of 00:00: daily. [place] [facility] lisinopril 2017-0 Yes [id number] 5mg Take 5 mg Univers 5 mg tablet 2-12 by mouth ity of 00:00: daily. [facility] lisinopril 2017-0 Yes [id number] 5mg Take 5 mg Univers 5 mg tablet 2-12 by mouth ity of 00:00: daily. [facility] lisinopril 2017-0 Yes [id number] 5mg Take 5 mg Univers 5 mg tablet 2-12 by mouth ity of 00:00: daily. [place] [facility] lisinopril 2017- Yes [id number] 5mg Take 5 mg Univers 5 mg tablet 2-12 by mouth ity of 00:00: daily. [facility] lisinopril 2017-0 Yes [id number] 5mg Take 5 mg Univers 5 mg tablet 2-12 by mouth ity of 00:00: daily. [place] [facility] lisinopril 2017-0 Yes [id number] 5mg Take 5 mg Univers 5 mg tablet 2-12 by mouth ity of 00:00: daily. [place] [facility] lisinopril Yes [id number] 5mg Take 5 mg Univers 5 mg tablet 2-12 by mouth ity of 00:00: daily. [place] [facility] lisinopril Yes [id number] 5mg Take 5 mg Univers 5 mg tablet 2-12 by mouth ity of 00:00: daily. [place] [facility] lisinopril Yes [id number] 5mg Take 5 mg Univers 5 mg tablet 2-12 by mouth ity of 00:00: daily. [place] [facility] lisinopril Yes [id number] 5mg Take 5 mg Univers 5 mg tablet 2-12 by mouth ity of 00:00: daily. [address] lisinopril Yes [id number] 5mg Take 5 mg Univers 5 mg tablet 2-12 by mouth ity of 00:00: daily. [address] Immunizations Ordered Immunization Filled Immunization Date Status Commen ts Source Name Name influenza virus 2019-05-18 Completed [facility] vaccine, inactivated 03:21:00 [facility] pneumococcal 2019-05-18 Completed [facility] 13-valent vaccine 03:21:00 [place] Vital Signs Vital Name Observation Time Observation Value Comments Source HEIGHT 2019-09-21 00:00:00 160 cm WEIGHT 2019-09-21 00:00:00 68.04 kg Systolic blood 2021-01-07 13:46:00 146 mm[Hg] Univer sity of pressure [facility] Diastolic blood 2021-01-07 13:46:00 83 mm[Hg] Unive rsity of pressure [facility] Heart rate 2021-01-07 13:46:00 85 /min [facility] Body temperature 2021-01-07 13:46:00 36.56 Leela [facility] rate 2021-01-07 13:46:00 18 /min [facility] Oxygen saturation in 2021-01-07 13:46:00 93 /min [facility] Arterial blood by [facility] Pulse oximetry Branch Body height 2021-01-02 19:11:00 160 cm [facility] Body weight 2021-01-02 19:11:00 78.472 kg [facility] BMI 2021-01-02 19:11:00 30.65 kg/m2 [facility] HEIGHT 2019-09-21 00:00:00 160 cm WEIGHT 2019-09-21 00:00:00 68.04 kg Heart Rate 2019-07-09 20:06:00 [facility] Master Respitory Rate 2019-07-09 20:06:00 Memori al [place] Systolic (mm Hg) 2019-07-09 20:06:00 Rito rial [place] Diastolic (mm Hg) 2019-07-09 20:06:00 Mem orial Master Heart Rate 2019-07-09 17:17:00 [facility] [place] Respitory Rate 2019-07-09 17:17:00 Memori al [place] Systolic (mm Hg) 2019-07-09 17:17:00 Rito rial [place] Diastolic (mm Hg) 2019-07-09 17:17:00 Mem orial [place] Heart Rate 2019-07-09 13:25:00 [facility] Master Respitory Rate 2019-07-09 13:25:00 Memori al [place] Systolic (mm Hg) 2019-07-09 13:25:00 Rito rial [place] Diastolic (mm Hg) 2019-07-09 13:25:00 Mem orial [place] Temperature Oral (F) 2019-07-07 08:03:00 [facility] 2019-07-07 07:58:00 167.64 cm [facility] [place] Weight 2019-07-07 07:58:00 [facility] Master BMI Calculated 2019-07-07 07:58:00 Memori al Master Temperature Oral (F) 2019-05-27 14:00:00 97.7 F [facility] Master Heart Rate 2019-05-27 14:00:00 [facility] [place] Respitory Rate 2019-05-27 14:00:00 Memori al [place] Systolic (mm Hg) 2019-05-27 14:00:00 Rito rial Master Diastolic (mm Hg) 2019-05-27 14:00:00 Mem orial [place] Temperature Oral (F) 2019-05-27 10:00:00 97.4 F [facility] Master Heart Rate 2019-05-27 10:00:00 [facility] [place] Respitory Rate 2019-05-27 10:00:00 Memori al Master Systolic (mm Hg) 2019-05-27 10:00:00 Rito rial Master Diastolic (mm Hg) 2019-05-27 10:00:00 Mem orial Master Temperature Oral (F) 2019-05-27 06:01:00 98.5 F [facility] [place] Heart Rate 2019-05-27 06:01:00 [facility] [place] Respitory Rate 2019-05-27 06:01:00 Memori al [place] Systolic (mm Hg) 2019-05-27 06:01:00 Rito rial Master Diastolic (mm Hg) 2019-05-27 06:01:00 Mem orial Master Height 2019-05-17 17:16:00 157.48 cm [facility] Master Weight 2019-05-17 17:16:00 [facility] [place] BMI Calculated 2019-05-17 17:16:00 Memori al Master Height 2019-05-17 16:33:00 165.1 cm [facility] Master Weight 2019-05-17 16:33:00 [facility] [place] BMI Calculated 2019-05-17 16:33:00 Memori al [place] Heart Rate 2019-04-10 21:00:00 [facility] Master Respitory Rate 2019-04-10 21:00:00 Memori al Master Systolic (mm Hg) 2019-04-10 21:00:00 Rito rial Master Diastolic (mm Hg) 2019-04-10 21:00:00 Mem orial [place] Heart Rate 2019-04-10 17:11:00 [facility] Master Respitory Rate 2019-04-10 17:11:00 Memori al [place] Systolic (mm Hg) 2019-04-10 17:11:00 Rito rial [place] Diastolic (mm Hg) 2019-04-10 17:11:00 Mem orial Master Heart Rate 2019-04-10 13:45:00 [facility] [place] Respitory Rate 2019-04-10 13:45:00 Memori al [place] Systolic (mm Hg) 2019-04-10 13:45:00 Rito rial Master Diastolic (mm Hg) 2019-04-10 13:45:00 Mem orial [place] Height 2019-04-10 11:48:00 154.94 cm [facility] [place] Weight 2019-04-10 11:48:00 [facility] Master BMI Calculated 2019-04-10 11:48:00 Memori al Master Height 2019-04-09 02:35:00 157.48 cm [facility] [place] Weight 2019-04-09 02:35:00 [facility] Master BMI Calculated 2019-04-09 02:35:00 Memori al [place] Temperature Oral (F) 2019-04-09 02:09:00 98.3 F [facility] [place] Weight 2019-04-08 20:55:00 [facility] Master Heart Rate 2019-04-06 21:34:00 [facility] Master Respitory Rate 2019-04-06 21:34:00 Memori al Master Systolic (mm Hg) 2019-04-06 21:34:00 Rito rial [place] Diastolic (mm Hg) 2019-04-06 21:34:00 Mem orial [place] Heart Rate 2019-04-06 17:14:00 [facility] [place] Respitory Rate 2019-04-06 17:14:00 Memori al [place] Systolic (mm Hg) 2019-04-06 17:14:00 Rito rial Master Diastolic (mm Hg) 2019-04-06 17:14:00 Mem orial [place] Heart Rate 2019-04-06 13:46:00 [facility] Master Respitory Rate 2019-04-06 13:46:00 Memori al Master Systolic (mm Hg) 2019-04-06 13:46:00 Rito rial Master Diastolic (mm Hg) 2019-04-06 13:46:00 Mem orial Master Temperature Oral (F) 2019-04-05 05:50:00 98.5 F [facility] [place] Temperature Oral (F) 2019-04-04 21:32:00 98.6 F [facility] Master Temperature Oral (F) 2019-04-04 17:35:00 98.7 F [facility] Master Height 2019-04-02 12:35:00 177.8 cm [facility] Master Height 2019-03-30 11:56:00 177.8 cm [facility] [place] Height 2019-03-29 11:00:00 177.8 cm [facility] Master Weight 2019-03-29 06:16:00 [facility] Master BMI Calculated 2019-03-29 06:16:00 Memori al [place] Weight 2019-03-29 05:15:00 [facility] [place] BMI Calculated 2019-03-29 05:15:00 Memori al [place] BMI Calculated 2019-03-29 02:23:00 Memori al [place] Weight 2019-03-29 02:23:00 [facility] [place] Respitory Rate 2019-03-29 01:12:00 Memori al [place] Heart Rate 2019-03-29 01:12:00 [facility] [place] Systolic (mm Hg) 2019-03-29 01:12:00 Rito rial [place] Diastolic (mm Hg) 2019-03-29 01:12:00 Mem orial [place] Systolic (mm Hg) 2019-03-28 21:22:00 Rito rial Master Diastolic (mm Hg) 2019-03-28 21:22:00 Mem orial Master Heart Rate 2019-03-28 21:22:00 [facility] [place] Respitory Rate 2019-03-28 21:22:00 Memori al [place] Temperature Oral (F) 2019-03-28 21:22:00 98.2 F [facility] [place] Height 2019-03-28 21:22:00 177.8 cm [facility] [place] BMI Calculated 2019-03-28 21:22:00 Memori al [place] Weight 2019-03-28 21:22:00 [facility] Master Heart Rate 2019-03-09 18:01:00 [facility] Master Respitory Rate 2019-03-09 18:01:00 Memori al Master Systolic (mm Hg) 2019-03-09 18:01:00 Rito rial [place] Diastolic (mm Hg) 2019-03-09 18:01:00 Mem orial [place] Heart Rate 2019-03-09 13:22:00 [facility] [place] Respitory Rate 2019-03-09 13:22:00 Memori al Master Systolic (mm Hg) 2019-03-09 13:22:00 Rito rial [place] Diastolic (mm Hg) 2019-03-09 13:22:00 Mem orial Master Heart Rate 2019-03-09 10:23:00 [facility] Master Respitory Rate 2019-03-09 10:23:00 Memori al Master Systolic (mm Hg) 2019-03-09 10:23:00 Rito rial Master Diastolic (mm Hg) 2019-03-09 10:23:00 Mem orial [place] Temperature Oral (F) 2019-03-08 10:16:00 98.4 F [facility] [place] Temperature Oral (F) 2019-03-08 06:04:00 97.9 F [facility] Master Temperature Oral (F) 2019-03-08 02:23:00 97.9 F [facility] Height 2019-03-07 04:48:00 162.56 cm [facility] [place] Weight 2019-03-07 04:48:00 [facility] Master BMI Calculated 2019-03-07 04:48:00 Memori al Master Height 2019-03-06 21:51:00 170.18 cm [facility] Master BMI Calculated 2019-03-06 21:51:00 Memori al [place] Weight 2019-03-06 21:51:00 [facility] Master Heart Rate 2019-02-28 21:30:00 [facility] Master Respitory Rate 2019-02-28 21:30:00 Memori al [place] Systolic (mm Hg) 2019-02-28 21:30:00 Rito rial [facility] Diastolic (mm Hg) 2019-02-28 21:30:00 [facility] [place] Temperature Oral (F) 2019-02-28 18:00:00 98.3 F [facility] [place] Heart Rate 2019-02-28 18:00:00 [facility] [place] Respitory Rate 2019-02-28 18:00:00 [facility] Systolic (mm Hg) 2019-02-28 18:00:00 [facility] Diastolic (mm Hg) 2019-02-28 18:00:00 [facility] [place] Temperature Oral (F) 2019-02-28 13:33:00 97.6 F [facility] Heart Rate 2019-02-28 13:33:00 [facility] [place] Respitory Rate 2019-02-28 13:33:00 [facility] [place] Systolic (mm Hg) 2019-02-28 13:33:00 [facility] Diastolic (mm Hg) 2019-02-28 13:33:00 [facility] Temperature Oral (F) 2019-02-28 01:27:00 98.8 F [facility] [place] Height 2019-02-18 11:00:00 167.64 cm [facility] Height 2019-02-17 17:08:00 167.64 cm [facility] BMI Calculated 2019-02-17 17:08:00 Memori al Master Weight 2019-02-17 17:08:00 [facility] Height 2019-02-17 10:41:00 167.64 cm [facility] Weight 2019-02-15 08:54:00 [facility] BMI Calculated 2019-02-15 08:54:00 Obed Escobedo Weight 2019-02-15 08:16:00 Nicole Thao BMI Calculated 2019-02-15 08:16:00 Obed Escobedo Procedures Procedure Date / Time Performing Source Performed Clinician PHACOEMULSIFICATION OF 2021-01-07 Leroy Bueno [facility] CATARACT WITH INTRAOCULAR 15:50:00 Medica l Branch LENS IMPLANT COVID-19 (ID NOW RAPID 2021-01-05 Leroy Bueno [facility] TESTING) 15:12:00 Medical Branch CONSENT/REFUSAL FOR DIAGNOSIS 2020-12-31 Doctor Unassigned, [facility] AND TREATMENT 15:17:48 [facility] ASSIGNMENT OF BENEFITS 2020-12-31 Doctor Unassigned, [facility] 15:17:33 [facility] PATIENT QUESTIONNAIRE 2020-11-25 Doctor Unassigned, [facility] 05:01:00 [facility] EXTERNAL PROVIDER RECORDS 2020-02-20 Doctor Unassigned, [facility] 06:01:00 [facility] ASSIGNMENT OF BENEFITS 2019-12-28 Doctor Unassigned, [facility] 19:33:50 [facility] [U] XRAY THORACOLUMBAR SPINE 2019-04-25 [facility] AP AND LAT. 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 Plan of Care Planned Activity Planned Date Details Comments Source Future Scheduled 2021-04-[address] [facility] - Test 00:00:00 (12+) [code = Medical Center DEPRESSION SCREENING (12+)] Future Scheduled 2021-04-18 FALLS RISK SCREENING [facility] - Test 00:00:00 [code = FALLS RISK Medical C enter SCREENING] Future Scheduled 2021-04-[address] [facility] - Test 00:00:00 (12+) [code = Medical Center DEPRESSION SCREENING (12+)] Future Scheduled 2021-04-18 FALLS RISK SCREENING [facility] - Test 00:00:00 [code = FALLS RISK Medical C enter SCREENING] Future Scheduled 2020-12-17 INFLUENZA VACCINE (#1) [facility] 00:00:00 [code = INFLUENZA Medical Ce nter VACCINE (#1)] Future Scheduled 2020-12-17 INFLUENZA VACCINE (#1) [facility] 00:00:00 [code = INFLUENZA Medical Ce nter VACCINE (#1)] Future Scheduled 1998-05-[address] [facility] Test 00:00:00 WELLNESS (YEAR 2 or Medical Center FIRST YEAR if no IPPE) [code = MEDICARE ANNUAL WELLNESS (YEAR 2 or FIRST YEAR if no IPPE)] Future Scheduled 1998-05-[address] [facility] Test 00:00:00 WELLNESS (YEAR 2 or Medical Center FIRST YEAR if no IPPE) [code = MEDICARE ANNUAL WELLNESS (YEAR 2 or FIRST YEAR if no IPPE)] Future Scheduled 1997 PNEUMOCOCCAL 65+ YRS [facility] - Test 00:00:00 (1 of 1 - Medical Center [id number] PCV13) [code = PNEUMOCOCCAL 65+ YRS (1 of 1 - [id number] PCV13)] Future Scheduled 1997 PNEUMOCOCCAL 65+ YRS [facility] - Test 00:00:00 (1 of 1 - Medical Center [id number] PCV13) [code = PNEUMOCOCCAL 65+ YRS (1 of 1 - [id number] PCV13)] Future Scheduled 1982 SHINGLES VACCINES ([address] [facility] - Test 00:00:00 of 2) [code = SHINGLES Medic al Center VACCINES (1 of 2)] Future Scheduled 1982 SHINGLES VACCINES ([address] [facility] - Test 00:00:00 of 2) [code = SHINGLES Medic al Center VACCINES (1 of 2)] Future Scheduled 1951 DTAP/TDAP/TD [facility]ACCINES [facility] 00:00:00 (1 - Tdap) [code = Medical C enter DTAP/TDAP/TD VACCINES (1 - Tdap)] Future Scheduled 1951 DTAP/TDAP/TD VACCINES [facility] 00:00:00 (1 - Tdap) [code = Medical C enter DTAP/TDAP/TD VACCINES (1 - Tdap)] Future Scheduled 1944 COVID-19 VACCINE (1) [facility] - Test 00:00:00 [code = COVID-[address] VACCINE (1)] Future Scheduled 1944 COVID-19 VACCINE (1) [facility] - Test 00:00:00 [code = COVID-[address] VACCINE (1)] Encounters Start End Encounter Admission Attending Care Care Encounter Source Date/Time Date/Time Type Type Clinicians Facility Department ID 2021-02-16 Outpatient R [facility] OPH [id number] Univers 19:39:53 LEROY jarrell [facility] 2019-09-21 Inpatient UR JOSE, SLE Neurology [id number] [facility]H 21:50:00 [facility] 2019-05-17 Inpatient MH MED 0030 MHS W 10:14:00 2019-04-06 Inpatient 3 HAZEL WATKINSL BIT [id number] ENCSL 20:30:00 HEIDY [id number] 2021-02-24 2021-02-24 Outpatient ERICKSON_R [facility] [id number] [place] 02:00:00 02:00:00 [facility] 2021-01-23 2021-01-23 Outpatient ERICKSON_R [facility] [id number] [place] 10:31:00 10:31:00 008 [facility] 2021-01-20 2021-01-20 Outpatient ERICKSON_R [facility] [id number] [place] 01:51:00 01:51:00 005 [facility] 2021-01-13 2021-01-13 Outpatient ERICKSON_R [facility] [id number] [place] 11:48:00 11:48:00 928 [facility] 2021-01-13 2021-01-13 Outpatient Herson [facility] [id number] [id number] 00:00:00 00:00:00 Anthony [id number] [place] [id number] 2021-01-07 2021-01-07 Surgery Letitia [facility] 1.2.840.114 [id number] Univers 10:19:00 11:01:00 Leroy Loera Dennis [id number] [id number] [phone] [address] 2021-01-05 2021-01-05 Laboratory Only, Adc Test [facility] 1.2.840. 114 [id number] Univers 10:00:40 10:15:40 Only Leroy Bueno 350.1.13.1 0 [place] [phone] [address] 2021-01-05 2021-01-05 Outpatient [facility] [id number] Univers 10:00:00 10:00:00 [id number] [facility] 2021-01-05 2021-01-05 [facility] [id number] Univers 10:00:00 10:00:00 [facility] 2020-12-31 2020-12-31 Pm Technician Denny, Adc Lab Main [facility] 1.2.8 40.114 [id number] Univers 10:21:37 10:36:37 Visit Leroy Bueno [place] 350.1.13.1 0 [id number] [phone] [address] 2020-12-31 2020-12-31 Outpatient R [facility] [id number] Univers 10:30:00 10:30:00 [id number] ity [facility] 2020-12-31 2020-12-31 Outpatient [facility] [id number] Univers 10:30:00 10:30:00 [facility] 2020-12-31 2020-12-31 Orders Doctor BURTON 1.2.840.114 [id number] Univers 00:00:00 00:00:00 Only Unassigned, VALERIE [id number] ity of [place] [facility] 4.2.7.2.686 [employer] as [phone] [address] 2020-12-29 2020-12-29 Outpatient R [facility] [id number] Univers 16:00:00 16:00:00 [id number] ity of [facility] 2020-12-16 2020-12-16 Outpatient ERICKSON_R [facility] [id number] [place] 01:12:00 01:12:00 831 [facility] 2020-11-25 2020-11-25 Orders Doctor BURTON 1.2.840.114 [id number] Univers 00:00:00 00:00:00 Only Unassigned, VALERIE 350.1.13.10 ity of [facility] 4.2.7.2.686 [place] as [phone] [address] 2020-11-11 2020-11-11 Outpatient ERICKSON_R [facility] [id number] [place] 12:57:00 12:57:00 727 [facility] 2020-10-09 2020-10-09 Outpatient ERICKSON_R [facility] [id number] [place] 03:28:00 03:28:00 624 [facility] 2020-10-09 2020-10-09 Outpatient Herson [facility] [id number] 00:00:00 00:00:00 Anthony [id number] [place] [id number] 2020-10-07 2020-10-07 Outpatient ERICKSON_R [facility] [id number] [place] 01:21:00 01:21:00 622 [facility] 2020-09-03 2020-09-03 Outpatient ERICKSON_R [facility] [id number] [place] 01:02:00 01:02:00 519 [facility] 2020-06-30 2020-06-30 Outpatient ERICKSON_R [facility] [id number] [place] 11:39:00 11:39:00 315 [facility] 2020-06-30 2020-06-30 Outpatient Herson [facility] [id number] 00:00:00 00:00:00 Anthony [id number] [place] [id number] 2020-06-13 2020-06-13 [facility] 1.2.016.214 [id number] Univers 00:00:00 00:00:00 Emeterio Rolo [place] [id number] i [place] [phone] N[place] dical [address] 2020-06-13 2020-06-13 [facility] 1.2.310.585 [id number] 00:00:00 00:00:00 Emeterio Collins [id number] [place] 4.2.7.2.[address] [phone] 2020-05-15 2020-05-15 Outpatient ERICKSON_R [facility] [id number] [place] 10:32:00 10:32:00 128 [facility] 2020-05-12 2020-05-12 Outpatient ERICKSON_R [facility] [id number] [place] 02:12:00 02:12:00 125 [facility] 2020-05-12 2020-05-12 Outpatient Marcus, [facility] [id number] [id number] 00:00:00 00:00:00 Anthony [id number] [place] [id number] 2020-05-02 2020-05-02 Outpatient ERICKSON_R [facility] [id number] [place] 02:48:00 02:48:00 115 [facility] 2020-02-22 2020-02-22 Outpatient Julia LEACH [facility] [id number] Univers 11:30:00 11:30:00 EMETERIO [facility] 2020-02-22 2020-02-22 Outpatient Julia LEACH [facility] [id number] Univers 08:30:00 08:30:00 EMETERIO [id number] [facility] 2020-02-20 2020-02-20 Madhavi BURTON 1.2.840.114 [id number] Univers 00:00:00 00:00:00 Only Unassigned, VALERIE 350.1.13.10 ity of [place] [facility] 4.2.7.2.686 [place] as [phone] [facility] [address] [place] 2019-12-31 2019-12-31 Letter JoselynMICHEAL 1.2.840.114 [id number] Univers 00:00:00 00:00:00 (Out) Shaniqua Doe VALERIE [id number] it y of HOSPITAL 4.2.7.2.686 [place] as [phone] [address] 2019-12-28 2019-12-28 Laboratory Only, Adc Test [facility] 1.2.840. 114 [id number] Univers 14:33:48 14:48:48 Only eYlena Guardado 350.1.13.10 [place] [phone] [facility] [address] [place] 2019-12-28 2019-12-28 Outpatient R [facility] [id number] Univers 13:45:00 13:45:00 [id number] ity [facility] 2019-12-28 2019-12-28 Outpatient R DEMETRIA [facility] [id number] Univers 13:45:00 13:45:00 YELENA [facility] 2019-12-28 2019-12-28 Orders Doctor BURTON 1.2.840.114 [id number] Univers 00:00:00 00:00:00 Only Unassigned, VALERIE 350.1.13.10 [place] of [place] [facility] 4.2.7.2.686 [place] [phone] [address] 2019-09-07 2019-09-07 Outpatient [facility] [id number] Univers 16:00:00 16:00:00 EMETERIO noe [facility] 2019-08-17 2019-08-17 [facility] 1.2.840.114 [id number] Univers 08:22:58 16:26:12 ne Visit Emeterio [place] 350.1.13.10 [place] [phone] N[place] dical nal 220 [facility] 2019-08-17 2019-08-17 Ambulatory nullFlavo [facility] [id number] Memoria 13:30:00 13:30:00 Pre-Reg r Urology 00 l [place] [facility] 2019-08-17 2019-08-17 Outpatient R [facility] [id number] Univers 13:00:00 13:00:00 EMETERIO [id number] [facility] 2019-08-17 2019-08-17 Outpatient R [facility] [id number] Univers 13:00:00 13:00:00 EMETERIO [facility] 2019-07-08 2019-07-09 Inpatient nullFlavo [facility] [id number] Memoria 14:41:00 22:47:00 r Chimayo 81 l [place] Fabi 2019-07-08 2019-07-09 Inpatient E BRYN [facility] [id number] FB 09:41:00 17:47:00 JORGE LUIS HOOD 2019-07-09 2019-07-09 [facility] 1.2.601.311 [id number] Univers 00:00:00 00:00:00 Emeterio H Dennis 350.1.13.10 [place] [phone] N[place] dical nal [address] [place] [address] 2019-07-09 2019-07-09 [facility] 1.2.477.321 [id number] Univers 00:00:00 00:00:00 Emeterio H [place] 350.1.13.10 i [place] [phone] Nc dical nal [address] [place] [address] 2019-06-16 2019-06-16 [facility] 1.2.076.254 [id number] Univers 00:00:00 00:00:00 Emeterio H [place] 350.1.13.10 i [place] [phone] Nc dical nal [address] [place] [address] 2019-06-15 2019-06-15 [facility] 1.2.199.612 [id number] Univers 00:00:00 00:00:00 Emeterio Collins 350.1.13.10 i [facility] [place] 4.2.7.2.686 Festus Darling [phone] Me dical nal 220 [facility] 2019-05-17 2019-05-27 Inpatient nullFlavo [facility] [id number] Memoria 16:14:00 20:19:00 r Master 30 l [facility] 2019-04-25 2019-04-25 Outpatient [facility] [id number] 07:30:00 08:15:47 2019-04-25 2019-04-25 [facility] Orthopedics [id number] [facility] 07:30:00 07:30:00 t; Eric FULLER at [facility] Eric FULLER Medicine [facility] 2019-04-08 2019-04-10 Inpatient nullFlavo [facility] [id number] Memoria 20:39:53 23:44:00 r Master 03 l [place] [facility] 2019-04-08 2019-04-08 Inpatient E MHFB MED [id number] [facility]FB 19:32:00 14:39:00 2019-03-29 2019-04-07 Inpatient nullFlavo [facility] [id number] Memoria 02:20:21 01:41:00 julia Thao [address] [facility] 2019-03-28 2019-03-29 Emergency nullFlavo [facility] [id number] Memoria 21:21:29 01:49:00 julia Thao [address] [facility] 2019-03-28 2019-03-28 Inpatient E [facility] [id number] [facility] 22:05:00 20:20:00 2019-03-28 2019-03-28 Emergency E MHBL MHBL 7501 MHBL 15:21:00 15:21:00 2019-03-19 2019-03-20 Outpt Diag nullFlavo [facility] [id number] Memoria 22:43:00 05:59:00 Services r Outpatient 00 l [facility] 2019-03-06 2019-03-09 Inpatient nullFlavo [facility] [id number] Memoria 21:44:12 21:46:00 r Chimayo [address] [facility] 2019-03-09 2019-03-06 Inpatient E [facility] 7500 MH 11:09:00 20:28:00 2019-02-14 2019-02-28 Inpatient [facility] [id number] Memoria 22:00:00 21:50:00 r Chimayo [address] [facility] 2019-02-14 2019-02-14 Outpatient MHH RIC 9370 [facility] 18:48:00 18:48:00 2019-02-14 2019-02-14 [facility] [id number] [facility] 18:06:00 17:02:00 2018-12-15 2018-12-15 Pm Technician 1, Adc Lab [facility] 1.2.840.114 [id number] Univers 12:37:23 12:52:23 Visit Emeterio Leach 350.1.13.10 [place] [phone] [facility] [address] 2018-12-15 2018-12-15 Orders Doctor MICHEAL 1.2.840.114 [id number] Univers 00:00:00 00:00:00 Only Unassigned, VALERIE 350.1.13.10 it[place] of [place] [facility] 4.2.7.2.686 [place] as [phone] [facility] 009 [address] 2018-12-01 2018-12-01 Juan Antonio Gallardo [facility] 1.2.840.114 [id number] Univers 00:00:00 00:00:00 Dolores Collins 350.1.13.10 [facility] 4.[place] [facility] [place] [phone] Nc dical nal [address] Building Results Test Description Test Time Test Comments Results Result Comments Source POCT-GLUCOSE METER 2019-09-28 12:28:00 Test Item Value Reference Range Interpretation Comme nts POC-GLUCOSE METER (BEAKER) 99 mg/dL 70-110 : TESTED AT [address] (test code = 1538) FARHAN Navarro [address]: Bundle Tier/Techni amada ID = [id number] for ELICEO CORADO POCT-GLUCOSE [id number] 08:13:00 Test Item Value Reference Range Interpretation Comments POC-GLUCOSE METER 79 mg/dL 70-110 : TESTED A T [facility] 6720 (BEAKER) (test code = [place], 1538) 64347: Bundle Tier/Techni amada ID = [id number] for ELICEO STANLEY [id number] 06:39:00 Test Item Value Reference Range Interpretation Comments PHOSPHORUS (BEAKER) (test code = 3.2 mg/dL 2.3-4.7 604) Bundle Tier ID - GRISEL [id number] 06:39:00 Test Item Value Reference Range Interpretation Comments MAGNESIUM (BEAKER) (test code = 1.7 mg/dL 1.6-2.6 627) Bundle Tier ID - GRISEL MBASIC METABOLIC [id number] 06:39:00 Test Item Value Reference Range Interpretation [...] S NOT APPLICABLE FOR DIALYSIS PATIEN TS. Bundle Tier ID - GRISEL MCBC W/PLT COUNT & AUTO [id number] 06:02:00 Test Item Value Reference Range Interpretation [...] 0-1 PERCENT (BEAKER) (test code = 2801) BLOOD [id number] 01:00:00 Test Item Value Reference Range Interpretation Comments CULTURE (BEAKER) (test No growth in 5 days code = 1095) BLOOD [id number] 01:00:00 Test Item Value Reference Range Interpretation Comments CULTURE (BEAKER) (test No growth in 5 days code = 1095) POCT-GLUCOSE [id number] 22:32:00 Test Item Value Reference Range Interpretation Comments POC-GLUCOSE METER 106 mg/dL 70-110 : TESTED A T [facility] 6720 (BEAKER) (test code = TODD Dumont [facility], 1538) 36701: Bundle Tier/Techni amada ID = [id number] for DE NNIS, JOSE POCT-GLUCOSE [id number] 17:30:00 Test Item Value Reference Range Interpretation Comments POC-GLUCOSE METER 92 mg/dL 70-110 : TESTED A T [facility] 6720 (BEAKER) (test code = TODD Dumont [facility], 1538) 71601: Bundle Tier/Techni amada ID = [id number] for DELFIN GANNON RAD, CHEST, 1 VIEW, NON [id number] 16:16:00Reason for exam:->sobShould this be performed at [...] Jerry Cervantes MDReport Verified Date/Time: 09/27/2019 16:16:19 SARS-COV2/RT-PCR ([facility])2019-09-27 16:07:00 Test Item Value Reference Range Interpretation Comments SARS-COV2/RT-PCR (test code = Negative Not Detected, Negative 5134070) SARS-COV-2 PERFORMING LAB CPL (test code = 2636070) POCT-GLUCOSE [id number] 11:12:00 Test Item Value Reference Range Interpretation Comments POC-GLUCOSE METER 121 mg/dL 70-110 H : TESTED A T [facility] 6720 (BEAKER) (test code = [facility]) 18517: Bundle Tier/Techni amada ID = [id number] for DELFIN STANTON [id number] 07:56:00 Test Item Value Reference Range Interpretation Comments PHOSPHORUS (BEAKER) (test code = 3.4 mg/dL 2.3-4.7 604) Bundle Tier ID - JOLYNN [id number] 07:56:00 Test Item Value Reference Range Interpretation Comments MAGNESIUM (BEAKER) (test code = 1.8 mg/dL 1.6-2.6 627) Bundle Tier ID - JOLYNN LPOCT-GLUCOSE [id number] 07:38:00 Test Item Value Reference Range Interpretation Comments POC-GLUCOSE METER 89 mg/dL 70-110 : TESTED A T [facility] 6720 (BEAKER) (test code = [facility]) 76313: Bundle Tier/Techni amada ID = [id number] for ANDRES GANNONRICIA POCT-GLUCOSE [id number] 06:36:00 Test Item Value Reference Range Interpretation Comments POC-GLUCOSE METER 70 mg/dL 70-110 : TESTED A T [facility] 6720 (BEAKER) (test code = [facility]) 60576: Bundle Tier/Techni amada ID = [id number] for DENN IS, JOSE POCT-GLUCOSE [id number] 01:06:00 Test Item Value Reference Range Interpretation Comments POC-GLUCOSE METER 94 mg/dL 70-110 : TESTED A T [facility] 6720 (BEAKER) (test code = [facility], 1538) 29278: Bundle Tier/Techni amada ID = [id number] for DENN IS, JOSE POCT-GLUCOSE [id number] 17:53:00 Test Item Value Reference Range Interpretation Comments POC-GLUCOSE METER 94 mg/dL 70-110 : TESTED A T [facility] 6720 (BEAKER) (test code = [facility]) 53582: Bundle Tier/Techni amada ID = [id number] for BROW N, SREE POCT-GLUCOSE [id number] 15:47:00 Test Item Value Reference Range Interpretation Comments POC-GLUCOSE METER 123 mg/dL 70-110 H : TESTED A T [facility] 6720 (BEAKER) (test code = [facility], 1538) 60888: Bundle Tier/Techni amada ID = [id number] for BR OWN, SREE [id number] 06:57:00 Test Item Value Reference Range Interpretation Comments PHOSPHORUS (BEAKER) (test code = 2.8 mg/dL 2.3-4.7 604) Bundle Tier ID - GRISEL [id number] 06:57:00 Test Item Value Reference Range Interpretation Comments MAGNESIUM (BEAKER) (test code = 1.7 mg/dL 1.6-2.6 627) Bundle Tier ID - GRISEL MPOCT-GLUCOSE [id number] 17:47:00 Test Item Value Reference Range Interpretation Comments POC-GLUCOSE METER 79 mg/dL 70-110 : TESTED A T [facility] 6720 (BEAKER) (test code = [facility]) 92195: Bundle Tier/Techni amada ID = [id number] for BROW N, SREE POCT-GLUCOSE [id number] 11:35:00 Test Item Value Reference Range Interpretation Comments POC-GLUCOSE METER 96 mg/dL 70-110 : TESTED A T [facility] 6720 (BEAKER) (test code = [facility]) 86607: Bundle Tier/Techni amada ID = [id number] for BROW N, SREE POCT-GLUCOSE [id number] 06:33:00 Test Item Value Reference Range Interpretation Comments POC-GLUCOSE METER 105 mg/dL 70-110 : TESTED A T [facility] 6720 (BEAKER) (test code = [facility], 1538) 67657: Bundle Tier/Techni amada ID = [id number] for DO VE, CHEKARA [id number] 06:32:00 Test Item Value Reference Range Interpretation Comments PHOSPHORUS (BEAKER) (test code = 2.6 mg/dL 2.3-4.7 604) Bundle Tier ID - GRISEL [id number] 06:32:00 Test Item Value Reference Range Interpretation Comments MAGNESIUM (BEAKER) (test code = 1.7 mg/dL 1.6-2.6 627) Bundle Tier ID - GRISEL MPOCT-GLUCOSE [id number] 00:14:00 Test Item Value Reference Range Interpretation Comments POC-GLUCOSE METER 126 mg/dL 70-110 H : TESTED A T [facility] 6720 (BEAKER) (test code = [facility]) 58269: Bundle Tier/Techni amada ID = [id number] for DO VE, CHEKARA POCT-GLUCOSE [id number] 18:19:00 Test Item Value Reference Range Interpretation Comments POC-GLUCOSE METER 86 mg/dL 70-110 : TESTED A T [facility] 6720 (BEAKER) (test code = [facility], 1538) 11037: Bundle Tier/Techni amada ID = [id number] for RICHARD BEATRIZ, ELICEO POCT-GLUCOSE [id number] 14:12:00 Test Item Value Reference Range Interpretation Comments POC-GLUCOSE METER 114 mg/dL 70-110 H : TESTED A T [facility] 6720 (BEAKER) (test code = [facility], [facility]8) 80636: Bundle Tier/Techni amada ID = [id number] for AK INSONU, ELICEO POCT-GLUCOSE [id number] 06:21:00 Test Item Value Reference Range Interpretation Comments POC-GLUCOSE METER 109 mg/dL 70-110 : TESTED A T [facility] 6720 (BEAKER) (test code = [facility], [facility]) 14622: Bundle Tier/Techni amada ID = [id number] for DE NNIS, JOSE CBC W/PLT COUNT & AUTO [id number] 05:16:00 Test Item Value Reference Range Interpretation [...] 0-1 PERCENT (BEAKER) (test code = 2801) [id number] 05:15:00 Test Item Value Reference Range Interpretation Comments PHOSPHORUS (BEAKER) (test code = 2.3 mg/dL 2.3-4.7 604) Bundle Tier ID - GRISEL [id number] 05:15:00 Test Item Value Reference Range Interpretation Comments MAGNESIUM (BEAKER) (test code = 1.8 mg/dL 1.6-2.6 627) Bundle Tier ID - GRISEL MBASIC METABOLIC [id number] 05:15:00 Test Item Value Reference Range Interpretation [...] S NOT APPLICABLE FOR DIALYSIS PATIEN TS. Bundle Tier ID - GRISEL MPOCT-GLUCOSE [id number] 23:34:00 Test Item Value Reference Range Interpretation Comments POC-GLUCOSE METER 108 mg/dL 70-110 : TESTED A T [facility] 6720 (BEAKER) (test code = [facility], 1538) 45120: Bundle Tier/Techni amada ID = [id number] for DE NNIS, JOSE POCT-GLUCOSE [id number] 18:08:00 Test Item Value Reference Range Interpretation Comments POC-GLUCOSE METER 136 mg/dL 70-110 H : TESTED A T [facility] 6720 (BEAKER) (test code [facility], = 1538) 23392: Bundle Tier/Techni amada ID = [id number] for TSEG GAI, TSIGHEREDA URINALYSIS [id number] 14:06:00 Test Item Value Reference Range Interpretation Comments RBC UA (BEAKER) (test code = 519) 6 /HPF WBC UA (BEAKER) (test code = 520) 58 /HPF MUCUS (BEAKER) (test code = 1574) Occasional SQUAMOUS EPITHELIAL (BEAKER) (test < /HPF code = 516) Bundle Tier ID - techPOCT-GLUCOSE [id number] 14:04:00 Test Item Value Reference Range Interpretation Comments POC-GLUCOSE METER 99 mg/dL 70-110 : TESTED A T [facility] 6720 (BEAKER) (test code = [facility], 1538) 02154: Bundle Tier/Techni amada ID = [id number] for SONALI MCNEIL URINALYSIS WITH MICROSCOPIC IF [id number] 13:55:00 Test Item Value Reference Range Interpretation [...] = 463) SOURCE(BEAKER) (test code = 2795) Bundle Tier ID - [auto]POCT-GLUCOSE [id number] 13:04:00 Test Item Value Reference Range Interpretation Comments POC-GLUCOSE METER 111 mg/dL 70-110 H : TESTED A T [facility] 6720 (BEAKER) (test code [facility], = 1538) 36151: Bundle Tier/Techni amada ID = [id number] for TSEG GANik, TSDARRELEREDA [id number] 12:43:00 Test Item Value Reference Range Interpretation Comments RPR SCREEN (BEAKER) (test code = Nonreactive Nonreactive 420) POCT-GLUCOSE [id number] 07:42:00 Test Item Value Reference Range Interpretation Comments POC-GLUCOSE METER 124 mg/dL 70-110 H : TESTED A T [facility] 6720 (BEAKER) (test code = [facility], 153) 99908: Bundle Tier/Techni amada ID = [id number] for DE NNIS, JOSE VITAMIN D, 73-[id number] 07:20:00 Test Item Value Reference Range Interpretation Comments VITAMIN D 25-OH (BEAKER) (test 22.1 ng/mL 6.6-49.9 code = 2764) Effective 01/26/2017: Reference Range ChangeNew: 6.6-49.9 ng/mL Previous: 13.0-47.8 ng/mLRecommended Vitamin D Target Range: 30.0-40.0 ng/mLOperator ID - [id number] 06:46:00 Test Item Value Reference Range Interpretation Comments PHOSPHORUS (BEAKER) (test code = 2.4 mg/dL 2.3-4.7 604) Bundle Tier ID - GRISEL [id number] 06:46:00 Test Item Value Reference Range Interpretation Comments MAGNESIUM (BEAKER) (test code = 1.6 mg/dL 1.6-2.6 627) Bundle Tier ID - GRISEL MBASIC METABOLIC [id number] 06:46:00 Test Item Value Reference Range Interpretation [...] S NOT APPLICABLE FOR DIALYSIS PATIEN TS. Bundle Tier ID - GRISEL MPOCT-GLUCOSE [id number] 00:27:00 Test Item Value Reference Range Interpretation Comments POC-GLUCOSE METER 103 mg/dL 70-110 : [facility] [place] [facility] [place]NATY[place] (test code = TODD Dumont [facility], 1538) 34335: Bundle Tier/Techni amada ID = [id number] for JOSE UREÑA POCT-GLUCOSE [id number] 17:26:00 Test Item Value Reference Range Interpretation Comments POC-GLUCOSE METER 97 mg/dL 70-110 : Notified RN/MD: TEST[facility] (NATY) [facility] 1538) [facility], 770 30: Bundle Tier/Techni amada ID = [id number] for SONALI MCNEIL HIV-1 ANTIGEN WITH HIV-1/2 [id number] 17:26:00 Test Item Value Reference Range Interpretation Comments HIV-1 ANTIGEN WITH HIV 1\\T\\2 Nonreactive Nonreactive ANTIBODY (2) (NATY) (test code = 2586) Bundle Tier ID - DBRAD, CHEST, 1 VIEW, NON [id number] 16:47:00Reason for exam:- >eval for pnaShould this [...] MDReport Verified Date/Time: 09/22/2019 16:47:36 Reading Location: [facility] C013Y CT Body Reading Room POCT-GLUCOSE [id number] 12:05:00 Test Item Value Reference Range Interpretation Comments POC-GLUCOSE METER 53 mg/dL 70-110 L : TESTED A T [facility] 6720 (BEAKER) (test code = [place], 1538) 20182: Bundle Tier/Techni amada ID = [id number] for ELICEO STANLEY T4, [id number] 08:52:00 Test Item Value Reference Range Interpretation Comments FREE T4 (BEAKER) (test code = 655) 0.94 ng/dL 0.70-1.48 Bundle Tier ID - JANAE CHEMOGLOBIN [id number] 08:43:00 Test Item Value Reference Range Interpretation Comments HEMOGLOBIN A1C (BEAKER) (test code = 5.4 % 4.3-6.1 368) VITAMIN B12 AND [id number] 08:20:00 Test Item Value Reference Range Interpretation Comments VITAMIN B12 (BEAKER) (test code = 869 pg/mL 213-816 H 774) FOLATE (BEAKER) (test code = 362) 19.30 ng/mL >=7.00 Bundle Tier ID - JANAE CTSH/FREE T4 IF [id number] 08:18:00 Test Item Value Reference Range Interpretation Comments THYROID STIMULATING HORMONE 0.158 uIU/mL 0.350-4.940 L (BEAKER) (test code = 772) Bundle Tier ID - JANAE [id number] 07:41:00 Test Item Value Reference Range Interpretation Comments AMMONIA (BEAKER) (test code = 348) 35 mol/L 18-72 Bundle Tier ID - BETHIDTROPONIN [id number] 07:16:00 Test Item Value Reference Range Interpretation [...] failure, acidosis, acute neurological disease, and persistent tachyarrhythmia.Bundle Tier ID - ELIESERC-REACTIVE PROTEIN 2019-09-22 07:14:00 Test Item Value Reference Range Interpretation Comments C-REACTIVE PROTEIN (BEAKER) (test 3.32 mg/dL 0.00-0.50 H code = 676) Bundle Tier ID - AAHAMIDVALPROIC ACID LEVEL, [id number] 02:48:00 Test Item Value Reference Range Interpretation Comments VALPROIC ACID TOTAL (BEAKER) (test 46 ug/mL 50-100 L code = 924) Therapeutic range for some clinical conditions may be >100 ug/mLOperator ID - DESHAWN WPROTHROMBIN TIME/[id number] 02:31:00 Test Item Value Reference Range Interpretation [...] is2.5-3.5 for patients wiht mechanical heart valves.TROPONIN [id number] 02:29:00 Test Item Value Reference Range Interpretation [...] failure, acidosis, acute neurological disease, and persistent tachyarrhythmia.Bundle Tier ID - DESHAWN WBASIC METABOLIC [id number] 02:23:00 Test Item Value Reference Range Interpretation [...] S NOT APPLICABLE FOR DIALYSIS PATIEN TS. Bundle Tier ID - DESHAWN WHEPATIC FUNCTION [id number] 02:23:00 Test Item Value Reference Range Interpretation [...] Specimen slightly (test code = 347) hemolyzed Bundle Tier ID - DESHAWN WCBC W/PLT COUNT & AUTO [id number] 02:01:00 Test Item Value Reference Range Interpretation [...] PERCENT (BEAKER) (test code = 2801) CHEM [id number] 02:31:00 Test Item Value Reference Range Interpretation Comments Ammonia (test code = Ammonia) 28.0 [facility]WyigmcdKRAEAP9416-36-21 00:25:00 Test Item Value Reference Range Interpretation Comments Trig (test code = Trig) 61 [facility] ResourcesZbomvjvNJYGSZ2404-17-81 00:25:00 Test Item Value Reference Range Interpretation Comments Chol (test code = Chol) 208 [facility] ResourcesXjoplnvEDLLTC6347-27-69 00:25:00 Test Item Value Reference Range Interpretation Comments HDL (test code = HDL) 51 [facility] ResourcesYbirhwwEDTADC8151-31-95 00:25:00 Test Item Value Reference Range Interpretation Comments CHD Risk (test code = CHD Risk) 4.08 1 4.00-7.30 [facility] ResourcesFukeuqiCVLYMR4420-51-27 00:25:00 Test Item Value Reference Range Interpretation Comments LDL (Calculated) (test code = LDL 145 (Calculated)) [facility] ResourcesFuhcspcXAWJTH5363-51-49 00:25:00 Test Item Value Reference Range Interpretation Comments VLDL (test code = VLDL) 12 1 [facility] [id number] 00:25:00 Test Item Value Reference Range Interpretation Comments Hgb A1C (test code = Hgb A1C) 6.2 [facility] [id number] 15:33:00 Test Item Value Reference Range Interpretation Comments Vitamin B12 Lvl (test code = Vitamin 206 222-9900 B12 Lvl) [facility] ResourcesCity[facility] Limited [id number] 15:33:00 Test Item Value Reference Range Interpretation Comments Ammonia (test code = Ammonia) no gt [facility] [id number] 15:33:00 Test Item Value Reference Range Interpretation Comments Glucose Lvl (test code = Glucose Lvl) 84 70-99 [facility] [id number] 15:33:00 Test Item Value Reference Range Interpretation Comments BUN (test code = BUN) 16 7-22 [facility] [id number] 15:33:00 Test Item Value Reference Range Interpretation Comments Creatinine Lvl (test code = Creatinine 1.20 0.50-1.40 Lvl) [facility] [id number] 15:33:00 Test Item Value Reference Range Interpretation Comments Sodium Lvl (test code = Sodium Lvl) 140 135-145 [facility] [id number] 15:33:00 Test Item Value Reference Range Interpretation Comments Potassium Lvl (test code = Potassium 4.0 3.5-5.1 Lvl) [facility] [id number] 15:33:00 Test Item Value Reference Range Interpretation Comments Chloride Lvl (test code = Chloride Lvl) 105 95-109 [facility] [id number] 15:33:00 Test Item Value Reference Range Interpretation Comments CO2 (test code = CO2) 27 24-32 [facility] [id number] 15:33:00 Test Item Value Reference Range Interpretation Comments Calcium Lvl (test code = Calcium Lvl) 9.8 8.5-10.5 [facility] [id number] 15:33:00 Test Item Value Reference Range Interpretation Comments AGAP (test code = AGAP) 12.0 10.0-20.0 [facility] [id number] 15:33:00 Test Item Value Reference Range Interpretation Comments eGFR (test code = eGFR) 62 [facility] HospitalOcwowrtPGBQAMLKQE9538-24-81 15:33:00 Test Item Value Reference Range Interpretation Comments WBC (test code = WBC) 5.0 3.7-10.4 [facility] HospitalOijlbnaYWPHZLJVWU9005-82-64 15:33:00 Test Item Value Reference Range Interpretation Comments RBC (test code = RBC) 4.22 4.70-6.10 [facility] HospitalVvxlnugMMXJQIPOWH4265-71-94 15:33:00 Test Item Value Reference Range Interpretation Comments Hgb (test code = Hgb) 12.6 14.0-18.0 [facility] HospitalSdfcldsXFSNQQJIHO5433-23-86 15:33:00 Test Item Value Reference Range Interpretation Comments Hct (test code = Hct) 37.4 42.0-54.0 [place] 445010-03-22 15:33:00 Test Item Value Reference Range Interpretation Comments MCV (test code = MCV) 88.6 80.0-94.0 [place] [address]-03-22 15:33:00 Test Item Value Reference Range Interpretation Comments MCH (test code = MCH) 29.9 pg 27.0-31.0 [facility] HospitalYqyeqnhQIGOYFGFDE5829-41-58 15:33:00 Test Item Value Reference Range Interpretation Comments MCHC (test code = MCHC) 33.7 32.0-36.0 [facility] HospitalQwsokqpPPDNEQZSJS0873-36-14 15:33:00 Test Item Value Reference Range Interpretation Comments RDW (test code = RDW) 15.2 11.5-14.5 [place] 445010-03-22 15:33:00 Test Item Value Reference Range Interpretation Comments Platelet (test code = Platelet) 188 133-450 [place] 445010-03-22 15:33:00 Test Item Value Reference Range Interpretation Comments MPV (test code = MPV) 8.0 7.4-10.4 [place] [address]-03-22 15:33:00 Test Item Value Reference Range Interpretation Comments Segs (test code = Segs) 62.8 45.0-75.0 [place] [address]-03-22 15:33:00 Test Item Value Reference Range Interpretation Comments Lymphocytes (test code = Lymphocytes) 24.6 20.0-40.0 [place] [address]-03-22 15:33:00 Test Item Value Reference Range Interpretation Comments Monocytes (test code = Monocytes) 10.1 2.0-12.0 [place] 445010-03-22 15:33:00 Test Item Value Reference Range Interpretation Comments Eosinophils (test code = 1.9 See_Comment [A utomated message] The Eosinophils) system which ge nerated this result tra nsmitted reference range : <=4.0. The reference r madi was not used to int erpret this result as normal/abnormal . [facility] HospitalPkrpaklLEKTPDAMSG9581-58-83 15:33:00 Test Item Value Reference Range Interpretation Comments Basophils (test code = 0.6 See_Comment [Aut omated message] The Basophils) system which ge nerated this result tra nsmitted reference range : <=1.0. The reference r madi was not used to int erpret this result as normal/abnormal . [facility] HospitalGdwzrfgDVCPUQKYAT1014-49-39 15:33:00 Test Item Value Reference Range Interpretation Comments Neutrophils # (test code = Neutrophils 3.1 1.5-8.1 #) [place] [address]-03-22 15:33:00 Test Item Value Reference Range Interpretation Comments Lymphocytes # (test code = Lymphocytes 1.2 1.0-5.5 #) [place] [address]-03-22 15:33:00 Test Item Value Reference Range Interpretation Comments Monocytes # (test code 0.5 See_Comment [Aut omated message] The = Monocytes #) system which generated this result tra nsmitted reference range : <=0.8. The reference r madi was not used to int erpret this result as normal/abnormal . [facility]SbamfbaRHYJHLFVHY7966-64-25 15:33:00 Test Item Value Reference Range Interpretation Comments Eosinophils # (test code 0.1 See_Comment [A utomated message] The = Eosinophils #) system whic h generated this result tra nsmitted reference range : <=0.5. The reference r madi was not used to int erpret this result as normal/abnormal . [facility] [id number] 11:10:00 Test Item Value Reference Range Interpretation Comments Glucose Lvl (test code = Glucose Lvl) 95 70-99 [facility]2020-03-21 11:10:00 Test Item Value Reference Range Interpretation Comments BUN (test code = BUN) 11 -22 [facility]2020-03-21 11:10:00 Test Item Value Reference Range Interpretation Comments Creatinine Lvl (test code = Creatinine 1.03 0.50-1.40 Lvl) [facility]Ac[facility] SystemsUNC [facility] [id number] 11:10:00 Test Item Value Reference Range Interpretation Comments Sodium Lvl (test code = Sodium Lvl) 138 135-145 [facility] [id number] 11:10:00 Test Item Value Reference Range Interpretation Comments Potassium Lvl (test code = Potassium 3.7 3.5-5.1 Lvl) [facility] SystemsUNC [facility] - [id number] 11:10:00 Test Item Value Reference Range Interpretation Comments Chloride Lvl (test code = Chloride Lvl) 105 95-109 [facility] [id number] 11:10:00 Test Item Value Reference Range Interpretation Comments CO2 (test code = CO2) 27 24-32 [facility] [id number] 11:10:00 Test Item Value Reference Range Interpretation Comments Calcium Lvl (test code = Calcium Lvl) 9.8 8.5-10.5 [facility] [id number] 11:10:00 Test Item Value Reference Range Interpretation Comments Total Protein (test code = Total 6.6 6.4-8.4 Protein) [facility]2020-03-21 11:10:00 Test Item Value Reference Range Interpretation Comments Albumin Lvl (test code = Albumin Lvl) 3.4 3.5-5.0 [facility] N-1-1 [id number] 11:10:00 Test Item Value Reference Range Interpretation Comments ALT (test code = ALT) 19 See_Comment [Auto mated message] The system which ge nerated this result transmit guillaume reference range : <=65. The reference range was not used to interpr et this result as jd l/abnormal. [facility] CM Sistemi2020-03-21 11:10:00 Test Item Value Reference Range Interpretation Comments AST (test code = AST) 16 See_Comment [Auto mated message] The system which ge nerated this result transmit guillaume reference range : <=37. The reference range was not used to interpr et this result as jd l/abnormal. [facility] N-1-1 [id number] 11:10:00 Test Item Value Reference Range Interpretation Comments Alk Phos (test code = Alk Phos) 70 39-136 [facility] N-1-1 [id number] 11:10:00 Test Item Value Reference Range Interpretation Comments Bili Total (test code = Bili Total) 0.7 0.2-1.3 [facility] N-1-1 [id number] 11:10:00 Test Item Value Reference Range Interpretation Comments AGAP (test code = AGAP) 9.7 10.0-20.0 [facility] N-1-1 [id number] 11:10:00 Test Item Value Reference Range Interpretation Comments B/C Ratio (test code = B/C Ratio) 11 1 6-25 [facility] N-1-1 [id number] 11:10:00 Test Item Value Reference Range Interpretation Comments Globulin (test code = Globulin) 3.2 2.7-4.2 [facility] N-1-1 [id number] 11:10:00 Test Item Value Reference Range Interpretation Comments A/G Ratio (test code = A/G Ratio) 1.1 1 0.7-1.6 [facility] CM Sistemi2020-03-21 11:10:00 Test Item Value Reference Range Interpretation Comments eGFR (test code = eGFR) 75 [facility] PasoDujayuxJDUAWWHBLZ1766-98-72 11:10:00 Test Item Value Reference Range Interpretation Comments WBC (test code = WBC) 4.9 3.7-10.4 [facility] PasoGwijyarJBQCCMXGRZ2627-60-43 11:10:00 Test Item Value Reference Range Interpretation Comments RBC (test code = RBC) 4.14 4.70-6.10 [facility] HospitalHjejntyGDEOVKBJEG6618-98-03 11:10:00 Test Item Value Reference Range Interpretation Comments Hgb (test code = Hgb) 12.1 14.0-18.0 [facility] HospitalLpqlvhfBRFIRGIPBL6275-66-82 11:10:00 Test Item Value Reference Range Interpretation Comments Hct (test code = Hct) 36.7 42.0-54.0 [facility] HospitalKgvylbjXQZRHOPFKW5272-58-66 11:10:00 Test Item Value Reference Range Interpretation Comments MCV (test code = MCV) 88.6 80.0-94.0 [facility] HospitalCtmnjlnARZNYTGDYL9797-24-76 11:10:00 Test Item Value Reference Range Interpretation Comments MCH (test code = MCH) 29.3 pg 27.0-31.0 [facility] HospitalZzfygzjFPPPAQVRWO4086-63-00 11:10:00 Test Item Value Reference Range Interpretation Comments MCHC (test code = MCHC) 33.1 32.0-36.0 [facility] HospitalWbbkgetBMGHGKIZLE5295-01-57 11:10:00 Test Item Value Reference Range Interpretation Comments RDW (test code = RDW) 14.8 11.5-14.5 [facility] HospitalXyrxuewRCIWWUXXLD8311-85-69 11:10:00 Test Item Value Reference Range Interpretation Comments Platelet (test code = Platelet) 178 133-450 [facility] HospitalAfkpnvaBWJHIJZNDE6669-33-83 11:10:00 Test Item Value Reference Range Interpretation Comments MPV (test code = MPV) 7.9 7.4-10.4 [facility] HospitalJnlaxmbDTTPCQAXSH2555-51-15 11:10:00 Test Item Value Reference Range Interpretation Comments Segs (test code = Segs) 51.1 45.0-75.0 [facility] HospitalSwttoklKGBBNBUWUE9421-67-43 11:10:00 Test Item Value Reference Range Interpretation Comments Lymphocytes (test code = Lymphocytes) 29.1 20.0-40.0 [facility] HospitalOxelgpgXTBDVBGYRF8826-97-70 11:10:00 Test Item Value Reference Range Interpretation Comments Monocytes (test code = Monocytes) 16.1 2.0-12.0 [facility] HospitalJbzxgdtYOXFZFXFDA0494-78-96 11:10:00 Test Item Value Reference Range Interpretation Comments Eosinophils (test code = 3.1 See_Comment [A utomated message] The Eosinophils) system which ge nerated this result tra nsmitted reference range : <=4.0. The reference r madi was not used to int erpret this result as normal/abnormal . [facility] HospitalLiutmkfIFCRWCWGEV6355-47-60 11:10:00 Test Item Value Reference Range Interpretation Comments Basophils (test code = 0.6 See_Comment [Aut omated message] The Basophils) system which ge nerated this result tra nsmitted reference range : <=1.0. The reference r madi was not used to int erpret this result as normal/abnormal . [facility] HospitalLwuvyfwEMOZUWNKYP9991-61-81 11:10:00 Test Item Value Reference Range Interpretation Comments Neutrophils # (test code = Neutrophils 2.5 1.5-8.1 #) [facility] HospitalJgfsxczUVSHKWKAPF5301-59-56 11:10:00 Test Item Value Reference Range Interpretation Comments Lymphocytes # (test code = Lymphocytes 1.4 1.0-5.5 #) [facility] HospitalYndylcnGDBUUUIPPC4333-98-97 11:10:00 Test Item Value Reference Range Interpretation Comments Monocytes # (test code 0.8 See_Comment [Aut omated message] The = Monocytes #) system which generated this result tra nsmitted reference range : <=0.8. The reference r madi was not used to int erpret this result as normal/abnormal . [facility] HospitalXcyfokoKCZHWFKKQE8925-98-22 11:10:00 Test Item Value Reference Range Interpretation Comments Eosinophils # (test code 0.2 See_Comment [A utomated message] The = Eosinophils #) system [facility] h generated this result tra nsmitted reference range : <=0.5. The reference r madi was not used to int erpret this result as normal/abnormal . [facility] ResourcesJhlwcyfSBNOOSPJEZ7121-46-97 11:10:00 Test Item Value Reference Range Interpretation Comments Phenytoin Free (test code = Phenytoin 0.34 1.00-2.00 Free) [facility] AND [id number] 11:05:00 Test Item Value Reference Range Interpretation Comments UA Color (test code = Colorless *NA*(07/07/19 UA Color) 6:05 AM) [facility] AND [id number] 11:05:00 Test Item Value Reference Range Interpretation Comments UA Turbidity (test code = Clear (07/07/19 6:05 UA Turbidity) AM) [facility] [id number] 11:05:00 Test Item Value Reference Range Interpretation Comments UA Spec Grav (test code = UA Spec 1.005 1 Grav) [facility] AND [id number] 11:05:00 Test Item Value Reference Range Interpretation Comments UA pH (test code = UA pH) 8.0 1 5.0-8.0 [facility] [id number] 11:05:00 Test Item Value Reference Range Interpretation Comments UA Protein (test code Negative (07/07/19 6:05 = UA Protein) AM) [facility] [id number] 11:05:00 Test Item Value Reference Range Interpretation Comments UA Glucose (test code Negative *NA*(07/07/19 = UA Glucose) 6:05 AM) [facility] AND [id number] 11:05:00 Test Item Value Reference Range Interpretation Comments UA Ketones (test code Negative *NA*(07/07/19 = UA Ketones) 6:05 AM) [facility] AND [id number] 11:05:00 Test Item Value Reference Range Interpretation Comments UA Bili (test code = Negative *NA*(07/07/19 UA Bili) 6:05 AM) [facility] AND [id number] 11:05:00 Test Item Value Reference Range Interpretation Comments UA Blood (test code = Negative (07/07/19 6:05 UA Blood) AM) [facility] AND [id number] 11:05:00 Test Item Value Reference Range Interpretation Comments UA Urobilinogen (test code = UA <=1.0 mg/dL 0.1-1.0 Urobilinogen) [facility] [id number] 11:05:00 Test Item Value Reference Range Interpretation Comments UA Nitrite (test code Negative (07/07/19 6:05 = UA Nitrite) AM) [facility] [id number] 11:05:00 Test Item Value Reference Range Interpretation Comments UA Leuk Est (test Negative (07/07/19 6:05 code = UA Leuk Est) AM) [facility] [id number] 11:05:00 Test Item Value Reference Range Interpretation Comments Micro? (test code = Performed (07/07/19 6:05 Micro?) AM) [facility] [id number] 11:05:00 Test Item Value Reference Range Interpretation Comments UA WBC (test code = no gt See_Comment [Automa guillaume message] The UA WBC) system which ge nerated this result transmit guillaume reference range : <=5. The reference range was not used to interpr et this result as jd l/abnormal. [facility] [id number] 11:05:00 Test Item Value Reference Range Interpretation Comments UA RBC (test code = 1 See_Comment [Automa guillaume message] The UA RBC) system which ge nerated this result transmit guillaume reference range : <=2. The reference range was not used to interpr et this result as jd l/abnormal. [facility] [id number] 11:05:00 Test Item Value Reference Range Interpretation Comments UA Mucus (test code = UA Mucus) Few /LPF [facility] [id number] 11:05:00 Test Item Value Reference Range Interpretation Comments UA Sq Epi (test code = None Seen (07/07/19 6:05 UA Sq Epi) AM) [facility]2020-02-09 14:26:00 Test Item Value Reference Range Interpretation Comments Glucose Lvl (test code = Glucose Lvl) 86 70-99 [facility]2020-02-09 14:26:00 Test Item Value Reference Range Interpretation Comments BUN (test code = BUN) 15 7-22 [facility]2020-02-09 14:26:00 Test Item Value Reference Range Interpretation Comments Creatinine Lvl (test code = Creatinine 0.90 0.50-1.40 Lvl) [facility]2020-02-09 14:26:00 Test Item Value Reference Range Interpretation Comments Sodium Lvl (test code = Sodium Lvl) 135 135-145 [facility]2020-02-09 14:26:00 Test Item Value Reference Range Interpretation Comments Potassium Lvl (test code = Potassium 4.1 3.5-5.1 Lvl) [facility]2020-02-09 14:26:00 Test Item Value Reference Range Interpretation Comments Chloride Lvl (test code = Chloride Lvl) 100 95-109 [facility]2020-02-09 14:26:00 Test Item Value Reference Range Interpretation Comments CO2 (test code = CO2) 30 -32 [facility]2020-02-09 14:26:00 Test Item Value Reference Range Interpretation Comments Calcium Lvl (test code = Calcium Lvl) 9.2 8.5-10.5 [facility]2020-02-09 14:26:00 Test Item Value Reference Range Interpretation Comments AGAP (test code = AGAP) 9.1 10.0-20.0 [facility]2020-02-09 14:26:00 Test Item Value Reference Range Interpretation Comments eGFR (test code = eGFR) 89 [facility]2020-02-08 12:40:00 Test Item Value Reference Range Interpretation Comments Glucose Lvl (test code = Glucose Lvl) 90 70-99 [facility]2020-02-08 12:40:00 Test Item Value Reference Range Interpretation Comments BUN (test code = BUN) 16 7-22 [facility]2020-02-08 12:40:00 Test Item Value Reference Range Interpretation Comments Creatinine Lvl (test code = Creatinine 0.90 0.50-1.40 Lvl) [facility]2020-02-08 12:40:00 Test Item Value Reference Range Interpretation Comments Sodium Lvl (test code = Sodium Lvl) 134 135-145 [facility]2020-02-08 12:40:00 Test Item Value Reference Range Interpretation Comments Potassium Lvl (test code = Potassium 3.9 3.5-5.1 Lvl) [facility]2020-02-08 12:40:00 Test Item Value Reference Range Interpretation Comments Chloride Lvl (test code = Chloride Lvl) 98 95-109 [facility]2020-02-08 12:40:00 Test Item Value Reference Range Interpretation Comments CO2 (test code = CO2) 30 24-32 [facility]2020-02-08 12:40:00 Test Item Value Reference Range Interpretation Comments Calcium Lvl (test code = Calcium Lvl) 9.3 8.5-10.5 [facility]2020-02-08 12:40:00 Test Item Value Reference Range Interpretation Comments AGAP (test code = AGAP) 9.9 10.0-20.0 [facility]2020-02-08 12:40:00 Test Item Value Reference Range Interpretation Comments eGFR (test code = eGFR) 89 [facility]2020-02-07 15:43:00 Test Item Value Reference Range Interpretation Comments Glucose Lvl (test code = Glucose Lvl) 116 70-99 [facility]2020-02-07 15:43:00 Test Item Value Reference Range Interpretation Comments BUN (test code = BUN) 16 7-22 [facility]2020-02-07 15:43:00 Test Item Value Reference Range Interpretation Comments Creatinine Lvl (test code = Creatinine 0.90 0.50-1.40 Lvl) [facility]2020-02-07 15:43:00 Test Item Value Reference Range Interpretation Comments Sodium Lvl (test code = Sodium Lvl) 132 135-145 [facility]2020-02-07 15:43:00 Test Item Value Reference Range Interpretation Comments Potassium Lvl (test code = Potassium 4.5 3.5-5.1 Lvl) [facility]2020-02-07 15:43:00 Test Item Value Reference Range Interpretation Comments Chloride Lvl (test code = Chloride Lvl) 97 95-109 [facility]2020-02-07 15:43:00 Test Item Value Reference Range Interpretation Comments CO2 (test code = CO2) 28 24-32 [facility]2020-02-07 15:43:00 Test Item Value Reference Range Interpretation Comments Calcium Lvl (test code = Calcium Lvl) 8.7 8.5-10.5 [facility]2020-02-07 15:43:00 Test Item Value Reference Range Interpretation Comments AGAP (test code = AGAP) 11.5 10.0-20.0 [facility]2020-02-07 15:43:00 Test Item Value Reference Range Interpretation Comments eGFR (test code = eGFR) 89 [facility] AND [id number] 21:24:00 Test Item Value Reference Range Interpretation Comments UA Turbidity (test code Marked *ABN*(05/23/19 = UA Turbidity) 3:24 PM) [facility] AND [id number] 21:24:00 Test Item Value Reference Range Interpretation Comments UA Spec Grav (test code = UA Spec 1.013 1 Grav) [facility] AND [id number] 21:24:00 Test Item Value Reference Range Interpretation Comments UA pH (test code = UA pH) 8.0 1 5.0-8.0 [facility] AND [id number] 21:24:00 Test Item Value Reference Range Interpretation Comments UA Protein (test code = UA Negative mg/dL Protein) [facility] AND [id number] 21:24:00 Test Item Value Reference Range Interpretation Comments UA Glucose (test code = UA Negative mg/dL Glucose) [facility] AND [id number] 21:24:00 Test Item Value Reference Range Interpretation Comments UA Ketones (test code = UA Negative mg/dL Ketones) [facility] AND [id number] 21:24:00 Test Item Value Reference Range Interpretation Comments UA Bili (test code = Negative *NA*(05/23/19 UA Bili) 3:24 PM) [facility] AND [id number] 21:24:00 Test Item Value Reference Range Interpretation Comments UA Blood (test code = Negative (05/23/19 3:24 UA Blood) PM) [facility] AND [id number] 21:24:00 Test Item Value Reference Range Interpretation Comments UA Nitrite (test code Negative (05/23/19 3:24 = UA Nitrite) PM) [facility] AND [id number] 21:24:00 Test Item Value Reference Range Interpretation Comments UA Leuk Est (test Negative (05/23/19 3:24 code = UA Leuk Est) PM) [facility] AND [id number] 21:24:00 Test Item Value Reference Range Interpretation Comments UA Sq Epi (test code = UA Sq Occasional /LPF Epi) [facility] AND [id number] 21:24:00 Test Item Value Reference Range Interpretation Comments UA WBC (test code = 1 See_Comment [Automa guillaume message] The UA WBC) system which ge nerated this result transmit guillaume reference range : <=5. The reference range was not used to interpr et this result as jd l/abnormal. [facility] AND [id number] 21:24:00 Test Item Value Reference Range Interpretation Comments UA RBC (test code = no gt See_Comment [Automa guillaume message] The UA RBC) system which ge nerated this result transmit guillaume reference range : <=2. The reference range was not used to interpr et this result as jd l/abnormal. [facility] [id number] 21:24:00 Test Item Value Reference Range Interpretation Comments UA Mucus (test code = UA Mucus) Few /LPF [facility] [id number] 21:24:00 Test Item Value Reference Range Interpretation Comments UA Amorph Rani (test code = UA Few /HPF Amorph Rani) [facility] [id number] 21:24:00 Test Item Value Reference Range Interpretation Comments Micro? (test code = Performed *NA*(05/23/19 Micro?) 3:24 PM) [facility] AND [id number] 21:24:00 Test Item Value Reference Range Interpretation Comments UA Color (test code = UA Color) Ltyellow [facility] AND [id number] 21:24:00 Test Item Value Reference Range Interpretation Comments UA Urobilinogen (test code = UA no gt 0.1-1.0 Urobilinogen) [facility] [id number] 12:15:00 Test Item Value Reference Range Interpretation Comments Total Protein (test code = Total 6.1 6.4-8.4 Protein) [facility] [id number] 12:15:00 Test Item Value Reference Range Interpretation Comments Albumin Lvl (test code = Albumin Lvl) 2.8 3.5-5.0 [facility] [id number] 12:15:00 Test Item Value Reference Range Interpretation Comments ALT (test code = ALT) 13 See_Comment [Auto mated message] The system which ge nerated this result transmit guillaume reference range : <=65. The reference range was not used to interpr et this result as jd l/abnormal. [facility] [id number] 12:15:00 Test Item Value Reference Range Interpretation Comments AST (test code = AST) 23 See_Comment [Auto mated message] The system which ge nerated this result transmit guillaume reference range : <=37. The reference range was not used to interpr et this result as jd l/abnormal. [facility] [id number] 12:15:00 Test Item Value Reference Range Interpretation Comments Alk Phos (test code = Alk Phos) 80 39-136 [facility] [id number] 12:15:00 Test Item Value Reference Range Interpretation Comments Bili Total (test code = Bili Total) 0.4 0.2-1.3 [facility] [id number] 12:15:00 Test Item Value Reference Range Interpretation Comments B/C Ratio (test code = B/C Ratio) 20 1 6-25 [facility] [id number] 12:15:00 Test Item Value Reference Range Interpretation Comments Globulin (test code = Globulin) 3.3 2.7-4.2 [facility] [id number] 12:15:00 Test Item Value Reference Range Interpretation Comments A/G Ratio (test code = A/G Ratio) 0.8 1 0.7-1.6 [facility] [id number] 09:21:00 Test Item Value Reference Range Interpretation Comments Magnesium Lvl (test code = Magnesium 1.9 1.8-2.4 Lvl) [facility] [id number] 09:21:00 Test Item Value Reference Range Interpretation Comments Phosphorus (test code = Phosphorus) 3.1 2.5-4.5 [facility] [id number] 09:21:00 Test Item Value Reference Range Interpretation Comments WBC (test code = WBC) 5.8 3.7-10.4 [facility] R[id number] 09:21:00 Test Item Value Reference Range Interpretation Comments RBC (test code = RBC) 4.01 4.70-6.10 [facility] [id number] 09:21:00 Test Item Value Reference Range Interpretation Comments Hgb (test code = Hgb) 12.0 14.0-18.0 [place] [address]-02-02 09:21:00 Test Item Value Reference Range Interpretation Comments Hct (test code = Hct) 36.5 42.0-54.0 [facility] ResourcesSpnrqpeKBICQLJBTO0109-01-11 09:21:00 Test Item Value Reference Range Interpretation Comments MCV (test code = MCV) 91.1 80.0-94.0 [id number] 09:21:00 Test Item Value Reference Range Interpretation Comments MCH (test code = MCH) 29.9 pg 27.0-31.0 [facility] [id number] 09:21:00 Test Item Value Reference Range Interpretation Comments MCHC (test code = MCHC) 32.8 32.0-36.0 [facility] H[id number] 09:21:00 Test Item Value Reference Range Interpretation Comments RDW (test code = RDW) 16.0 11.5-14.5 [facility] [id number] 09:21:00 Test Item Value Reference Range Interpretation Comments Platelet (test code = Platelet) 184 133-450 [facility] H[id number] 09:21:00 Test Item Value Reference Range Interpretation Comments MPV (test code = MPV) 8.2 7.4-10.4 [facility] H[id number] 09:21:00 Test Item Value Reference Range Interpretation Comments Segs (test code = Segs) 65.6 45.0-75.0 [facility] [id number] 09:21:00 Test Item Value Reference Range Interpretation Comments Lymphocytes (test code = Lymphocytes) 18.2 20.0-40.0 [facility] H[id number] 09:21:00 Test Item Value Reference Range Interpretation Comments Monocytes (test code = Monocytes) 13.8 2.0-12.0 [facility] [id number] 09:21:00 Test Item Value Reference Range Interpretation Comments Eosinophils (test code = 2.3 See_Comment [A utomated message] The Eosinophils) system which ge nerated this result tra nsmitted reference range : <=4.0. The reference r madi was not used to int erpret this result as normal/abnormal . [facility] H[id number] 09:21:00 Test Item Value Reference Range Interpretation Comments Basophils (test code = 0.1 See_Comment [Aut omated message] The Basophils) system which ge nerated this result tra nsmitted reference range : <=1.0. The reference r madi was not used to int erpret this result as normal/abnormal . [place] 445010-02-02 09:21:00 Test Item Value Reference Range Interpretation Comments Neutrophils # (test code = Neutrophils 3.8 1.5-8.1 #) [facility] Hos[id number] 09:21:00 Test Item Value Reference Range Interpretation Comments Lymphocytes # (test code = Lymphocytes 1.0 1.0-5.5 #) [facility] Hospit[id number] 09:21:00 Test Item Value Reference Range Interpretation Comments Monocytes # (test code 0.8 See_Comment [Aut omated message] The = Monocytes #) system which generated this result tra nsmitted reference range : <=0.8. The reference r madi was not used to int erpret this result as normal/abnormal . [place] 445010-02-02 09:21:00 Test Item Value Reference Range Interpretation Comments Eosinophils # (test code 0.1 See_Comment [A utomated message] The = Eosinophils #) system whic h generated this result tra nsmitted reference range : <=0.5. The reference r madi was not used to int erpret this result as normal/abnormal . [facility] H[id number] 09:21:00 Test Item Value Reference Range Interpretation Comments Basophils # (test code 0.0 See_Comment [Aut omated message] The = Basophils #) system which generated this result tra nsmitted reference range : <=0.2. The reference r madi was not used to int erpret this result as normal/abnormal . [facility] [id number] 07:15:00 Test Item Value Reference Range Interpretation Comments Magnesium Lvl (test code = Magnesium 2.4 1.8-2.4 Lvl) [facility] [id number] 07:15:00 Test Item Value Reference Range Interpretation Comments Phosphorus (test code = Phosphorus) 2.7 2.5-4.5 [place] 445010-02-01 07:15:00 Test Item Value Reference Range Interpretation Comments Segs (test code = Segs) 56.8 45.0-75.0 [place] [address]-02-01 07:15:00 Test Item Value Reference Range Interpretation Comments Lymphocytes (test code = Lymphocytes) 25.9 20.0-40.0 [place] [address]-02-01 07:15:00 Test Item Value Reference Range Interpretation Comments Monocytes (test code = Monocytes) 14.8 2.0-12.0 [place] [address]-02-01 07:15:00 Test Item Value Reference Range Interpretation Comments Eosinophils (test code = 2.4 See_Comment [A utomated message] The Eosinophils) system which ge nerated this result tra nsmitted reference range : <=4.0. The reference r madi was not used to int erpret this result as normal/abnormal . [place] [address]-02-01 07:15:00 Test Item Value Reference Range Interpretation Comments Basophils (test code = 0.1 See_Comment [Aut omated message] The Basophils) system which ge nerated this result tra nsmitted reference range : <=1.0. The reference r madi was not used to int erpret this result as normal/abnormal . [place] [address]-02-01 07:15:00 Test Item Value Reference Range Interpretation Comments Neutrophils # (test code = Neutrophils 2.7 1.5-8.1 #) [place] [address]-02-01 07:15:00 Test Item Value Reference Range Interpretation Comments Lymphocytes # (test code = Lymphocytes 1.2 1.0-5.5 #) [place] [address]-02-01 07:15:00 Test Item Value Reference Range Interpretation Comments Monocytes # (test code 0.7 See_Comment [Aut omated message] The = Monocytes #) system which generated this result tra nsmitted reference range : <=0.8. The reference r madi was not used to int erpret this result as normal/abnormal . [place] [address]-02-01 07:15:00 Test Item Value Reference Range Interpretation Comments Eosinophils # (test code 0.1 See_Comment [A utomated message] The = Eosinophils #) system whic h generated this result tra nsmitted reference range : <=0.5. The reference r madi was not used to int erpret this result as normal/abnormal . [place] [address]-02-01 07:15:00 Test Item Value Reference Range Interpretation Comments Basophils # (test code 0.0 See_Comment [Aut omated message] The = Basophils #) system which generated this result tra nsmitted reference range : <=0.2. The reference r madi was not used to int erpret this result as normal/abnormal . [place] 445010-02-01 07:15:00 Test Item Value Reference Range Interpretation Comments WBC (test code = WBC) 4.8 3.7-10.4 [place] [address]-02-01 07:15:00 Test Item Value Reference Range Interpretation Comments RBC (test code = RBC) 4.59 4.70-6.10 [place] 445010-02-01 07:15:00 Test Item Value Reference Range Interpretation Comments Hgb (test code = Hgb) 14.0 14.0-18.0 [place] 445010-02-01 07:15:00 Test Item Value Reference Range Interpretation Comments Hct (test code = Hct) 41.5 42.0-54.0 [place] [address]-02-01 07:15:00 Test Item Value Reference Range Interpretation Comments MCV (test code = MCV) 90.4 80.0-94.0 [place] [address]-02-01 07:15:00 Test Item Value Reference Range Interpretation Comments MCH (test code = MCH) 30.5 pg 27.0-31.0 [facility] HospitalQczwwbkTYPVFBIYLO9009-69-80 07:15:00 Test Item Value Reference Range Interpretation Comments MCHC (test code = MCHC) 33.7 32.0-36.0 [place] 445010-02-01 07:15:00 Test Item Value Reference Range Interpretation Comments RDW (test code = RDW) 16.0 11.5-14.5 [place] 445010-02-01 07:15:00 Test Item Value Reference Range Interpretation Comments Platelet (test code = Platelet) 204 133-450 [facility] H[id number] 07:15:00 Test Item Value Reference Range Interpretation Comments MPV (test code = MPV) 8.6 7.4-10.4 [facility] [id number] 07:15:00 Test Item Value Reference Range Interpretation Comments Ca Ion WB (test code = Ca Ion WB) 1.31 1.05-1.25 [facility] [id number] 07:15:00 Test Item Value Reference Range Interpretation Comments Ca Norm WB (test code = Ca Norm WB) 1.32 1.05-1.25 [place] 545030-01-31 08:37:00 Test Item Value Reference Range Interpretation Comments Magnesium Lvl (test code = Magnesium 2.3 1.8-2.4 Lvl) [place] 545030-01-31 08:37:00 Test Item Value Reference Range Interpretation Comments Phosphorus (test code = Phosphorus) 3.3 2.5-4.5 [place] 445010-01-31 08:37:00 Test Item Value Reference Range Interpretation Comments Segs (test code = Segs) 54.1 45.0-75.0 [place] [address]-01-31 08:37:00 Test Item Value Reference Range Interpretation Comments Lymphocytes (test code = Lymphocytes) 28.3 20.0-40.0 [place] [address]-01-31 08:37:00 Test Item Value Reference Range Interpretation Comments Monocytes (test code = Monocytes) 13.8 2.0-12.0 [place] [address]-01-31 08:37:00 Test Item Value Reference Range Interpretation Comments Eosinophils (test code = 3.3 See_Comment [A utomated message] The Eosinophils) system which ge nerated this result tra nsmitted reference range : <=4.0. The reference r madi was not used to int erpret this result as normal/abnormal . [place] 445010-01-31 08:37:00 Test Item Value Reference Range Interpretation Comments Basophils (test code = 0.5 See_Comment [Aut omated message] The Basophils) system which ge nerated this result tra nsmitted reference range : <=1.0. The reference r madi was not used to int erpret this result as normal/abnormal . [place] 445010-01-31 08:37:00 Test Item Value Reference Range Interpretation Comments Neutrophils # (test code = Neutrophils 2.5 1.5-8.1 #) [place] 445010-01-31 08:37:00 Test Item Value Reference Range Interpretation Comments Lymphocytes # (test code = Lymphocytes 1.3 1.0-5.5 #) [place] 445010-01-31 08:37:00 Test Item Value Reference Range Interpretation Comments Monocytes # (test code 0.7 See_Comment [Aut omated message] The = Monocytes #) system which generated this result tra nsmitted reference range : <=0.8. The reference r madi was not used to int erpret this result as normal/abnormal . [facility] HospitalQqnrzclQERYEQAWGB4016-59-57 08:37:00 Test Item Value Reference Range Interpretation Comments Eosinophils # (test code 0.2 See_Comment [A utomated message] The = Eosinophils #) system whic h generated this result tra nsmitted reference range : <=0.5. The reference r madi was not used to int erpret this result as normal/abnormal . [facility] HospitalYwiabxkNVNLQOPUDF9966-85-39 08:37:00 Test Item Value Reference Range Interpretation Comments Basophils # (test code 0.0 See_Comment [Aut omated message] The = Basophils #) system which generated this result tra nsmitted reference range : <=0.2. The reference r madi was not used to int erpret this result as normal/abnormal . [facility] HospitalNvdioofJVZHVQBGPZ1473-50-47 08:37:00 Test Item Value Reference Range Interpretation Comments WBC (test code = WBC) 4.7 3.7-10.4 [place] 445010-01-31 08:37:00 Test Item Value Reference Range Interpretation Comments RBC (test code = RBC) 3.73 4.70-6.10 [place] 445010-01-31 08:37:00 Test Item Value Reference Range Interpretation Comments Hgb (test code = Hgb) 11.2 14.0-18.0 [place] 445010-01-31 08:37:00 Test Item Value Reference Range Interpretation Comments Hct (test code = Hct) 33.8 42.0-54.0 [place] 445010-01-31 08:37:00 Test Item Value Reference Range Interpretation Comments MCV (test code = MCV) 90.4 80.0-94.0 [place] 445010-01-31 08:37:00 Test Item Value Reference Range Interpretation Comments MCH (test code = MCH) 29.9 pg 27.0-31.0 [place] 445010-01-31 08:37:00 Test Item Value Reference Range Interpretation Comments MCHC (test code = MCHC) 33.1 32.0-36.0 [facility]qvlvgtGXQWQZODBN6980-88-71 08:37:00 Test Item Value Reference Range Interpretation Comments RDW (test code = RDW) 15.7 11.5-14.5 [facility] PasoGvodiusRUWCUAUNLG9152-34-14 08:37:00 Test Item Value Reference Range Interpretation Comments Platelet (test code = Platelet) 176 133-450 [facility] PasoUhvxebgMUXNGUBDTW1001-44-84 08:37:00 Test Item Value Reference Range Interpretation Comments MPV (test code = MPV) 8.3 7.4-10.4 [facility]annPARATHYROID [id number] 08:37:00 Test Item Value Reference Range Interpretation Comments Ca Ion WB (test code = Ca Ion WB) 1.16 1.05-1.25 [facility]annPARATHYROID [id number] 08:37:00 Test Item Value Reference Range Interpretation Comments Ca Norm WB (test code = Ca Norm WB) 1.16 1.05-1.25 [facility]annBACTERIAL - [id number] 17:12:00 Test Item Value Reference Range Interpretation Comments MRSA by PCR (test Negative (05/17/19 11:12 code = MRSA by PCR) AM) [facility] [id number] 17:12:00 Test Item Value Reference Range Interpretation Comments Troponin-I (test code no gt See_Comment [Auto mated message] The = Troponin-I) system which g enerated this result transmit guillaume reference range : <=0.40. The reference r madi was not used to interpr et this result as jd l/abnormal. [facility] [id number] 17:12:00 Test Item Value Reference Range Interpretation Comments BNP (test code = BNP) 30 [facility]uity SystemsCHEM [id number] 17:12:00 Test Item Value Reference Range Interpretation Comments Total Protein (test code = Total 6.3 6.4-8.4 Protein) [facility] [id number] 17:12:00 Test Item Value Reference Range Interpretation Comments Albumin Lvl (test code = Albumin Lvl) 3.1 3.5-5.0 [facility] [id number] 17:12:00 Test Item Value Reference Range Interpretation Comments ALT (test code = ALT) 17 See_Comment [Auto mated message] The system which ge nerated this result transmit guillaume reference range : <=65. The reference range was not used to interpr et this result as jd l/abnormal. [facility] N-1-1 [id number] 17:12:00 Test Item Value Reference Range Interpretation Comments AST (test code = AST) 19 See_Comment [Auto mated message] The system which ge nerated this result transmit guillaume reference range : <=37. The reference range was not used to interpr et this result as jd l/abnormal. [facility] N-1-1 [id number] 17:12:00 Test Item Value Reference Range Interpretation Comments Alk Phos (test code = Alk Phos) 95 39-136 [facility] N-1-1 [id number] 17:12:00 Test Item Value Reference Range Interpretation Comments Bili Total (test code = Bili Total) 0.4 0.2-1.3 [facility] [id number] 17:12:00 Test Item Value Reference Range Interpretation Comments B/C Ratio (test code = B/C Ratio) 23 1 6-25 [facility] [id number] 17:12:00 Test Item Value Reference Range Interpretation Comments Globulin (test code = Globulin) 3.2 2.7-4.2 [facility] N-1-1 [id number] 17:12:00 Test Item Value Reference Range Interpretation Comments A/G Ratio (test code = A/G Ratio) 1.0 1 0.7-1.6 [facility] N-1-1 [id number] 17:12:00 Test Item Value Reference Range Interpretation Comments Ammonia (test code = Ammonia) 14.0 [facility] [id number] 17:12:00 Test Item Value Reference Range Interpretation Comments Lactic Acid Lvl (test code = Lactic 1.1 0.5-2.2 Acid Lvl) [facility] [id number] 17:12:00 Test Item Value Reference Range Interpretation Comments Procalcitonin Lvl (test no gt See_Comment [Au tomated message] code = Procalcitonin Lvl) Th e system which generated this result transmitted ref erence range: <=0.10. The reference range was not used to interpr et this result as normal/abnormal . [facility] ResourcesCHEM [id number] 17:12:00 Test Item Value Reference Range Interpretation Comments Osmolality (test code = Osmolality) 250 280-300 [facility] Resour[id number] 17:12:00 Test Item Value Reference Range Interpretation Comments Cortisol (test code = Cortisol) 13.3 [facility] ResourcesYbvvzevFXXRGPJMQX1335-88-10 17:12:00 Test Item Value Reference Range Interpretation Comments PT (test code = PT) 13.9 s 12.0-14.7 [facility]MhenhnqDBAKDXNSJM3719-69-01 17:12:00 Test Item Value Reference Range Interpretation Comments INR (test code = INR) 1.07 1 0.85-1.17 [facility] ResourcesDeparkvFBXRSYWYXO3167-44-59 17:12:00 Test Item Value Reference Range Interpretation Comments PTT (test code = PTT) 30.1 s 22.9-35.8 [facility] [id number] 17:12:00 Test Item Value Reference Range Interpretation Comments Source Respiratory Nasophrngl Swb Panel PCR (test code = *NA*(05/17/19 11:12 AM) Source Respiratory Panel PCR) [facility] [id number] 17:12:00 Test Item Value Reference Range Interpretation Comments Influenza A PCR (test Negative *NA*(05/17/19 code = Influenza A PCR) 11:12 AM) [facility] [id number] 17:12:00 Test Item Value Reference Range Interpretation Comments Influenza B PCR (test Negative *NA*(05/17/19 code = Influenza B PCR) 11:12 AM) [facility] [id number] 17:12:00 Test Item Value Reference Range Interpretation Comments RSV PCR (test code = Negative *NA*(05/17/19 RSV PCR) 11:12 AM) [facility]annPARATHYROID [id number] 17:12:00 Test Item Value Reference Range Interpretation Comments Ca Ion WB (test code = Ca Ion WB) 1.15 1.05-1.25 [facility]PARGAR[facility]ENTERROID [id number] 17:12:00 Test Item Value Reference Range Interpretation Comments Ca Norm WB (test code = Ca Norm WB) 1.12 1.05-1.25 [facility] [id number] 17:12:00 Test Item Value Reference Range Interpretation Comments Hgb A1C (test code = Hgb A1C) 5.8 [facility]2020-01-30 17:12:00 Test Item Value Reference Range Interpretation Comments U Sodium (test code = U Sodium) 101 [facility]2020-01-30 17:12:00 Test Item Value Reference Range Interpretation Comments U Osmolality (test code = U Osmolality) 443 300-800 [facility]2019-12-24 11:10:00 Test Item Value Reference Range Interpretation Comments Glucose Lvl (test code = Glucose Lvl) 124 70-99 [facility]2019-12-24 11:10:00 Test Item Value Reference Range Interpretation Comments BUN (test code = BUN) 21 7-22 [facility]2019-12-24 11:10:00 Test Item Value Reference Range Interpretation Comments Creatinine Lvl (test code = Creatinine 0.99 0.50-1.40 Lvl) [facility]2019-12-24 11:10:00 Test Item Value Reference Range Interpretation Comments Sodium Lvl (test code = Sodium Lvl) 141 135-145 [facility]2019-12-24 11:10:00 Test Item Value Reference Range Interpretation Comments Potassium Lvl (test code = Potassium 4.2 3.5-5.1 Lvl) [facility]2019-12-24 11:10:00 Test Item Value Reference Range Interpretation Comments Chloride Lvl (test code = Chloride Lvl) 106 95-109 [facility]2019-12-24 11:10:00 Test Item Value Reference Range Interpretation Comments CO2 (test code = CO2) 28 24-32 [facility]2019-12-24 11:10:00 Test Item Value Reference Range Interpretation Comments Calcium Lvl (test code = Calcium Lvl) 9.2 8.5-10.5 [facility]2019-12-24 11:10:00 Test Item Value Reference Range Interpretation Comments eGFR (test code = eGFR) 79 [facility]2019-12-24 11:10:00 Test Item Value Reference Range Interpretation Comments AGAP (test code = AGAP) 11.2 10.0-20.0 [facility] HospitalBuxghpbBTYJQZYEGV9456-45-89 11:10:00 Test Item Value Reference Range Interpretation Comments WBC (test code = WBC) 10.3 3.7-10.4 [facility] HospitalVkyntcpFBTCVNBZFT2201-01-29 11:10:00 Test Item Value Reference Range Interpretation Comments RBC (test code = RBC) 3.52 4.70-6.10 [facility] HospitalLmawsamPLKRBTQDGW0554-17-34 11:10:00 Test Item Value Reference Range Interpretation Comments Hgb (test code = Hgb) 11.3 14.0-18.0 [facility] HospitalQsqwwaiLKBFHOTVQY0343-16-06 11:10:00 Test Item Value Reference Range Interpretation Comments Hct (test code = Hct) 34.0 42.0-54.0 [facility] HospitalTjxfjjwWNWURSZUUY7251-08-97 11:10:00 Test Item Value Reference Range Interpretation Comments MCV (test code = MCV) 96.6 80.0-94.0 [facility] HospitalWjzrgonCNYYPUDQFT0613-44-55 11:10:00 Test Item Value Reference Range Interpretation Comments MCH (test code = MCH) 32.1 pg 27.0-31.0 [facility] HospitalAjkopelQVJZTCIZHH8262-73-66 11:10:00 Test Item Value Reference Range Interpretation Comments MCHC (test code = MCHC) 33.2 32.0-36.0 [facility] HospitalHlesrbkMRDUVTTKWM6334-52-20 11:10:00 Test Item Value Reference Range Interpretation Comments RDW (test code = RDW) 17.2 11.5-14.5 [facility] HospitalXoqkqbcNNMZEAIAOJ5482-37-91 11:10:00 Test Item Value Reference Range Interpretation Comments Platelet (test code = Platelet) 153 133-450 [facility] HospitalLbjrckdSRITFZKEVN6067-04-53 11:10:00 Test Item Value Reference Range Interpretation Comments MPV (test code = MPV) 8.4 7.4-10.4 [facility] HospitalMlkvxarJYUVZNLSZY6677-35-67 11:10:00 Test Item Value Reference Range Interpretation Comments Segs (test code = Segs) 77.2 45.0-75.0 [facility] HospitalJarkjxlNRDTRTOVJE8946-43-01 11:10:00 Test Item Value Reference Range Interpretation Comments Lymphocytes (test code = Lymphocytes) 13.4 20.0-40.0 [facility] HospitalAknrnbnIQLRTECILA3024-99-58 11:10:00 Test Item Value Reference Range Interpretation Comments Monocytes (test code = Monocytes) 8.1 2.0-12.0 [facility] HospitalOcozpwzRRWVEQHUND1491-57-82 11:10:00 Test Item Value Reference Range Interpretation Comments Eosinophils (test code = 0.9 See_Comment [A utomated message] The Eosinophils) system which ge nerated this result tra nsmitted reference range : <=4.0. The reference r madi was not used to int erpret this result as normal/abnormal . [facility] HospitalCwtntdiHRINVCXNHB7708-50-07 11:10:00 Test Item Value Reference Range Interpretation Comments Basophils (test code = 0.4 See_Comment [Aut omated message] The Basophils) system which ge nerated this result tra nsmitted reference range : <=1.0. The reference r madi was not used to int erpret this result as normal/abnormal . [facility] HospitalBtuxwblEKZZJVFCCY4936-93-84 11:10:00 Test Item Value Reference Range Interpretation Comments Neutrophils # (test code = Neutrophils 8.0 1.5-8.1 #) [facility] HospitalLllqkgpVXKHQQYLVG8788-09-55 11:10:00 Test Item Value Reference Range Interpretation Comments Lymphocytes # (test code = Lymphocytes 1.4 1.0-5.5 #) [facility] HospitalKrsodfrAIMFTXYTXC0884-06-94 11:10:00 Test Item Value Reference Range Interpretation Comments Monocytes # (test code 0.8 See_Comment [Aut omated message] The = Monocytes #) system which generated this result tra nsmitted reference range : <=0.8. The reference r madi was not used to int erpret this result as normal/abnormal . [facility] HospitalMzjuyjzPGKMZYWQUZ8965-94-63 11:10:00 Test Item Value Reference Range Interpretation Comments Eosinophils # (test code 0.1 See_Comment [A utomated message] The = Eosinophils #) system whic h generated this result tra nsmitted reference range : <=0.5. The reference r madi was not used to int erpret this result as normal/abnormal . [facility] HospitalBtdtyzmSKUHLDGBTR5476-95-01 23:57:00 Test Item Value Reference Range Interpretation Comments Hgb (test code = Hgb) 12.0 14.0-18.0 [facility] HospitalSckjjogZYCMHNGFGE8391-99-30 23:57:00 Test Item Value Reference Range Interpretation Comments Hct (test code = Hct) 34.8 42.0-54.0 [facility] ResourcesRggbmqgGVSWMJREXZ1502-59-45 16:29:00 Test Item Value Reference Range Interpretation Comments Hgb (test code = Hgb) 11.1 14.0-18.0 [facility] HospitalNnsycsqNHEVQNPELN0662-86-76 16:29:00 Test Item Value Reference Range Interpretation Comments Hct (test code = Hct) 32.7 42.0-54.0 [facility] [employer] [id number] 21:14:00 Test Item Value Reference Range Interpretation Comments ABO/Rh (test code = ABO/Rh) O POS [facility] [id number] 21:14:00 Test Item Value Reference Range Interpretation Comments Antibody Scrn (test Negative (04/08/19 code = Antibody Scrn) 3:14 PM) [facility]VxpsoogWMYNDRPSQQVL6738-68-16 21:14:00 Test Item Value Reference Range Interpretation Comments AGAP (test code = AGAP) 10.7 10.0-20.0 [facility] CenterYlslxbmUZICIRWEYLEP5542-69-89 21:14:00 Test Item Value Reference Range Interpretation Comments B/C Ratio (test code = B/C Ratio) 22 1 6-25 [facility] CenterSenzdwnRQBWAAKJQKJB3728-64-18 21:14:00 Test Item Value Reference Range Interpretation Comments Globulin (test code = Globulin) 4.4 2.7-4.2 [facility]GofqtwrIYJCQHAECLLV9467-69-32 21:14:00 Test Item Value Reference Range Interpretation Comments A/G Ratio (test code = A/G Ratio) 0.7 1 0.7-1.6 [facility] HospitalJbgbacgTPEHOKDNTVYL8340-85-93 21:14:00 Test Item Value Reference Range Interpretation Comments Glucose Lvl (test code = Glucose Lvl) 128 70-99 [facility] HospitalDfhmkiqJUXHDWVCARDT3722-82-37 21:14:00 Test Item Value Reference Range Interpretation Comments BUN (test code = BUN) 23 7-22 [facility] HospitalXgstuqbBRLVLOGICQRJ0157-39-31 21:14:00 Test Item Value Reference Range Interpretation Comments Creatinine Lvl (test code = Creatinine 1.04 0.50-1.40 Lvl) [facility] HospitalXbpdfmuNHLWYRSJVGPX3506-04-62 21:14:00 Test Item Value Reference Range Interpretation Comments Sodium Lvl (test code = Sodium Lvl) 141 135-145 [facility] HospitalFdbocpcJVULRMEHEVVE7086-71-56 21:14:00 Test Item Value Reference Range Interpretation Comments Potassium Lvl (test code = Potassium 4.7 3.5-5.1 Lvl) [facility] HospitalOfrbovmTWRWGAHWZNCJ1912-79-49 21:14:00 Test Item Value Reference Range Interpretation Comments Chloride Lvl (test code = Chloride Lvl) 107 95-109 [facility] HospitalPnmuqvsEFAGCVCOTHSR0871-18-45 21:14:00 Test Item Value Reference Range Interpretation Comments CO2 (test code = CO2) 28 24-32 [facility] HospitalRxozcyhLRTFUHLCNERI8475-17-88 21:14:00 Test Item Value Reference Range Interpretation Comments Calcium Lvl (test code = Calcium Lvl) 9.6 8.5-10.5 [facility] HospitalTycoviqGKCMACMUTTBJ2849-88-90 21:14:00 Test Item Value Reference Range Interpretation Comments Total Protein (test code = Total 7.5 6.4-8.4 Protein) [facility] HospitalQrqryjcDYEEOPSFZJXF5862-78-55 21:14:00 Test Item Value Reference Range Interpretation Comments Albumin Lvl (test code = Albumin Lvl) 3.1 3.5-5.0 [facility] HospitalEqwlhorPEJSLNAYSLLP4399-32-72 21:14:00 Test Item Value Reference Range Interpretation Comments ALT (test code = ALT) 32 See_Comment [Auto mated message] The system which ge nerated this result transmit guillaume reference range : <=65. The reference range was not used to interpr et this result as jd l/abnormal. [facility] HospitalByjfyemBARJBGTBOTFS7805-99-23 21:14:00 Test Item Value Reference Range Interpretation Comments AST (test code = AST) 27 See_Comment [Auto mated message] The system which ge nerated this result transmit guillaume reference range : <=37. The reference range was not used to interpr et this result as jd l/abnormal. [facility] HospitalNvxgnsdJBIATEOMXKHA2635-26-51 21:14:00 Test Item Value Reference Range Interpretation Comments Alk Phos (test code = Alk Phos) 99 39-136 [facility] HospitalQtewauhFDMOGKWJDRWB6937-30-41 21:14:00 Test Item Value Reference Range Interpretation Comments Bili Total (test code = Bili Total) 0.2 0.2-1.3 [facility] HospitalBbvdgovGGTNASITWCMT1180-12-89 21:14:00 Test Item Value Reference Range Interpretation Comments eGFR (test code = eGFR) 75 [facility] HospitalXprwsrbDRYJWYOZHW3396-31-35 21:14:00 Test Item Value Reference Range Interpretation Comments WBC (test code = WBC) 7.0 3.7-10.4 [facility] HospitalBxwwxddCZNARTGLOA1869-01-37 21:14:00 Test Item Value Reference Range Interpretation Comments RBC (test code = RBC) 3.79 4.70-6.10 [facility] HospitalQadfenyUKXOGYUDEW6806-77-38 21:14:00 Test Item Value Reference Range Interpretation Comments MCV (test code = MCV) 96.3 80.0-94.0 [facility] HospitalObpuuztOHDWTMXJLX1312-96-24 21:14:00 Test Item Value Reference Range Interpretation Comments MCH (test code = MCH) 32.4 pg 27.0-31.0 [facility] HospitalEemfhnoSZECCAJZPO7453-99-95 21:14:00 Test Item Value Reference Range Interpretation Comments MCHC (test code = MCHC) 33.7 32.0-36.0 [facility] HospitalGgpuybyAMIQINHEEC9587-43-72 21:14:00 Test Item Value Reference Range Interpretation Comments RDW (test code = RDW) 17.0 11.5-14.5 [facility] HospitalCrynrpcFBZXMDBLVW6341-82-68 21:14:00 Test Item Value Reference Range Interpretation Comments Platelet (test code = Platelet) 169 133-450 [facility] HospitalOoqxzgiYENRLKJOFN9244-02-27 21:14:00 Test Item Value Reference Range Interpretation Comments MPV (test code = MPV) 8.4 7.4-10.4 [facility] HospitalJiafbfgKXFEUUKPAP5301-64-94 21:14:00 Test Item Value Reference Range Interpretation Comments INR (test code = INR) 1.12 1 0.85-1.17 [facility] HospitalYvrnogrUMRTLDICOG5971-34-95 21:14:00 Test Item Value Reference Range Interpretation Comments PT (test code = PT) 14.5 s 12.0-14.7 [facility] HospitalXxnyaxrLZEQOVDLPB4668-87-76 21:14:00 Test Item Value Reference Range Interpretation Comments PTT (test code = PTT) 28.5 s 22.9-35.8 [facility] HospitalXqsrfquEIAMOLAYUV9053-02-18 21:14:00 Test Item Value Reference Range Interpretation Comments Segs (test code = Segs) 67.5 45.0-75.0 [facility] HospitalAkrlabrGESIBYIPXC6169-87-08 21:14:00 Test Item Value Reference Range Interpretation Comments Lymphocytes (test code = Lymphocytes) 20.3 20.0-40.0 [facility] HospitalDjfdjliKACETDVRVJ4146-49-88 21:14:00 Test Item Value Reference Range Interpretation Comments Monocytes (test code = Monocytes) 10.2 2.0-12.0 [facility] HospitalLerixniDLZMKPRVPX6488-36-58 21:14:00 Test Item Value Reference Range Interpretation Comments Eosinophils (test code = 1.4 See_Comment [A utomated message] The Eosinophils) system which ge nerated this result tra nsmitted reference range : <=4.0. The reference r madi was not used to int erpret this result as normal/abnormal . [facility] HospitalDhhkhojODEEMDGJCF4868-78-52 21:14:00 Test Item Value Reference Range Interpretation Comments Basophils (test code = 0.6 See_Comment [Aut omated message] The Basophils) system which ge nerated this result tra nsmitted reference range : <=1.0. The reference r madi was not used to int erpret this result as normal/abnormal . [facility] HospitalFruwpkfIRRVABTIML5326-01-76 21:14:00 Test Item Value Reference Range Interpretation Comments Neutrophils # (test code = Neutrophils 4.7 1.5-8.1 #) [facility] HospitalYiuuuwyIDDFQUXFOV2180-92-08 21:14:00 Test Item Value Reference Range Interpretation Comments Lymphocytes # (test code = Lymphocytes 1.4 1.0-5.5 #) [facility] HospitalGofdwfgALKXXZECCK8965-64-45 21:14:00 Test Item Value Reference Range Interpretation Comments Monocytes # (test code 0.7 See_Comment [Aut omated message] The = Monocytes #) system which generated this result tra nsmitted reference range : <=0.8. The reference r madi was not used to int erpret this result as normal/abnormal . [facility] HospitalQwtdqthBESQQOFYLO0524-52-99 21:14:00 Test Item Value Reference Range Interpretation Comments Eosinophils # (test code 0.1 See_Comment [A utomated message] The = Eosinophils #) system [facility] h generated this result tra nsmitted reference range : <=0.5. The reference r madi was not used to int erpret this result as normal/abnormal . [facility]2019-12-22 21:14:00 Test Item Value Reference Range Interpretation Comments Occult Bld Stl (test Positive *ABN*(04/08/19 code = Occult Bld Stl) 3:14 PM) [facility] HospitalMimplmkTBZOYDAQZE2322-96-74 12:41:00 Test Item Value Reference Range Interpretation Comments Eosinophils (test code = 2.5 See_Comment [A utomated message] The Eosinophils) system which ge nerated this result tra nsmitted reference range : <=4.0. The reference r madi was not used to int erpret this result as normal/abnormal . [facility] HospitalTggbgbiSGQFADAYWK8795-62-48 12:41:00 Test Item Value Reference Range Interpretation Comments Basophils (test code = 0.8 See_Comment [Aut omated message] The Basophils) system which ge nerated this result tra nsmitted reference range : <=1.0. The reference r madi was not used to int erpret this result as normal/abnormal . [facility] HospitalPzgsqwcFAIBLVXJAO8644-54-65 12:41:00 Test Item Value Reference Range Interpretation Comments Neutrophils # (test code = Neutrophils 3.0 1.5-8.1 #) [facility] HospitalDfafpszUELUUGWVZR1281-31-71 12:41:00 Test Item Value Reference Range Interpretation Comments Lymphocytes # (test code = Lymphocytes 1.4 1.0-5.5 #) [facility] HospitalUyhmtatITQAHLLWFD9112-42-08 12:41:00 Test Item Value Reference Range Interpretation Comments Monocytes # (test code 0.5 See_Comment [Aut omated message] The = Monocytes #) system which generated this result tra nsmitted reference range : <=0.8. The reference r madi was not used to int erpret this result as normal/abnormal . [facility] HospitalJohyvemDUDFGAGRWJ5495-26-27 12:41:00 Test Item Value Reference Range Interpretation Comments Eosinophils # (test code 0.1 See_Comment [A utomated message] The = Eosinophils #) system whic h generated this result tra nsmitted reference range : <=0.5. The reference r madi was not used to int erpret this result as normal/abnormal . [facility]2019-12-20 12:41:00 Test Item Value Reference Range Interpretation Comments Glucose Lvl (test code = Glucose Lvl) 101 70-99 [facility]2019-12-20 12:41:00 Test Item Value Reference Range Interpretation Comments BUN (test code = BUN) 24 7-22 [facility]2019-12-20 12:41:00 Test Item Value Reference Range Interpretation Comments Creatinine Lvl (test code = Creatinine 0.88 0.50-1.40 Lvl) [facility]2019-12-20 12:41:00 Test Item Value Reference Range Interpretation Comments Sodium Lvl (test code = Sodium Lvl) 141 135-145 [facility]2019-12-20 12:41:00 Test Item Value Reference Range Interpretation Comments Potassium Lvl (test code = Potassium 4.3 3.5-5.1 Lvl) [facility]2019-12-20 12:41:00 Test Item Value Reference Range Interpretation Comments Chloride Lvl (test code = Chloride Lvl) 108 95-109 [facility]2019-12-20 12:41:00 Test Item Value Reference Range Interpretation Comments CO2 (test code = CO2) 27 24-32 [facility]2019-12-20 12:41:00 Test Item Value Reference Range Interpretation Comments Calcium Lvl (test code = Calcium Lvl) 9.5 8.5-10.5 [facility]2019-12-20 12:41:00 Test Item Value Reference Range Interpretation Comments Total Protein (test code = Total 6.6 6.4-8.4 Protein) [facility]2019-12-20 12:41:00 Test Item Value Reference Range Interpretation Comments Albumin Lvl (test code = Albumin Lvl) 2.9 3.5-5.0 [facility]2019-12-20 12:41:00 Test Item Value Reference Range Interpretation Comments ALT (test code = ALT) 27 See_Comment [Auto mated message] The system which ge nerated this result transmit guillaume reference range : <=65. The reference range was not used to interpr et this result as jd l/abnormal. [facility]2019-12-20 12:41:00 Test Item Value Reference Range Interpretation Comments AST (test code = AST) 21 See_Comment [Auto mated message] The system which ge nerated this result transmit guillaume reference range : <=37. The reference range was not used to interpr et this result as jd l/abnormal. [facility]2019-12-20 12:41:00 Test Item Value Reference Range Interpretation Comments Alk Phos (test code = Alk Phos) 82 39-136 [facility] [place]2019-12-20 12:41:00 Test Item Value Reference Range Interpretation Comments Bili Total (test code = Bili Total) 0.4 0.2-1.3 [facility] [place]2019-12-20 12:41:00 Test Item Value Reference Range Interpretation Comments AGAP (test code = AGAP) 10.3 10.0-20.0 [facility] [place]2019-12-20 12:41:00 Test Item Value Reference Range Interpretation Comments B/C Ratio (test code = B/C Ratio) 27 1 6-25 [facility] [place]2019-12-20 12:41:00 Test Item Value Reference Range Interpretation Comments Globulin (test code = Globulin) 3.7 2.7-4.2 [facility] [place]2019-12-20 12:41:00 Test Item Value Reference Range Interpretation Comments A/G Ratio (test code = A/G Ratio) 0.8 1 0.7-1.6 [facility] [place]2019-12-20 12:41:00 Test Item Value Reference Range Interpretation Comments eGFR (test code = eGFR) 90 [facility]FuamlgiUBNFXMMNCK3850-84-09 12:41:00 Test Item Value Reference Range Interpretation Comments WBC (test code = WBC) 5.1 3.7-10.4 [facility] HospitalJicbwmkYPHVMEHBBL6850-33-98 12:41:00 Test Item Value Reference Range Interpretation Comments RBC (test code = RBC) 3.46 4.70-6.10 [facility] HospitalGrcawhhWNOKTFWPKE0357-47-29 12:41:00 Test Item Value Reference Range Interpretation Comments Hgb (test code = Hgb) 11.0 14.0-18.0 [facility] HospitalTnnsmpwDWZPZEUXVG8391-38-65 12:41:00 Test Item Value Reference Range Interpretation Comments Hct (test code = Hct) 33.0 42.0-54.0 [facility] HospitalTfpcbvrWDPVHNXFOM0742-96-46 12:41:00 Test Item Value Reference Range Interpretation Comments MCV (test code = MCV) 95.2 80.0-94.0 [facility] HospitalZvcymvxNORTKPYYJW6614-81-67 12:41:00 Test Item Value Reference Range Interpretation Comments MCH (test code = MCH) 31.7 pg 27.0-31.0 [facility] HospitalHkjjzjoQVOJQTZBAZ9568-23-52 12:41:00 Test Item Value Reference Range Interpretation Comments MCHC (test code = MCHC) 33.3 32.0-36.0 [facility] HospitalKgfyzjjBOEMVMHFMS5868-96-73 12:41:00 Test Item Value Reference Range Interpretation Comments RDW (test code = RDW) 16.6 11.5-14.5 [facility] HospitalKgtgnupXNULOZUZTI1758-21-33 12:41:00 Test Item Value Reference Range Interpretation Comments Platelet (test code = Platelet) 212 133-450 [facility] HospitalVzewljfEFJDKLMJOU6191-88-82 12:41:00 Test Item Value Reference Range Interpretation Comments MPV (test code = MPV) 7.8 7.4-10.4 [facility] HospitalYmitrquOOITUHAJJN0401-11-82 12:41:00 Test Item Value Reference Range Interpretation Comments Segs (test code = Segs) 59.7 45.0-75.0 [facility] HospitalHevtmirWXKVQWCOGU5475-66-85 12:41:00 Test Item Value Reference Range Interpretation Comments Lymphocytes (test code = Lymphocytes) 27.1 20.0-40.0 [facility] HospitalBzjmlohKDDRFFZVCR5461-52-92 12:41:00 Test Item Value Reference Range Interpretation Comments Monocytes (test code = Monocytes) 9.9 2.0-12.0 [facility] [place]2019-12-20 10:25:00 Test Item Value Reference Range Interpretation Comments Glucose Lvl (test code = Glucose Lvl) 90 70-99 [facility] [place]2019-12-20 10:25:00 Test Item Value Reference Range Interpretation Comments BUN (test code = BUN) 24 7-22 [facility] [place]2019-12-20 10:25:00 Test Item Value Reference Range Interpretation Comments Creatinine Lvl (test code = Creatinine 0.87 0.50-1.40 Lvl) [facility] [place]2019-12-20 10:25:00 Test Item Value Reference Range Interpretation Comments Sodium Lvl (test code = Sodium Lvl) 139 135-145 [facility] [place]2019-12-20 10:25:00 Test Item Value Reference Range Interpretation Comments Potassium Lvl (test code = Potassium 5.3 3.5-5.1 Lvl) [facility] [place]2019-12-20 10:25:00 Test Item Value Reference Range Interpretation Comments Chloride Lvl (test code = Chloride Lvl) 109 95-109 [facility] [place]2019-12-20 10:25:00 Test Item Value Reference Range Interpretation Comments CO2 (test code = CO2) - [facility] [place]2019-12-20 10:25:00 Test Item Value Reference Range Interpretation Comments AGAP (test code = AGAP) 11.3 10.0-20.0 [facility] [place]2019-12-20 10:25:00 Test Item Value Reference Range Interpretation Comments Calcium Lvl (test code = Calcium Lvl) 9.2 8.5-10.5 [facility] [place]2019-12-20 10:25:00 Test Item Value Reference Range Interpretation Comments eGFR (test code = eGFR) 90 [facility] [place]2019-12-19 16:57:00 Test Item Value Reference Range Interpretation Comments Glucose Lvl (test code = Glucose Lvl) 181 70-99 [facility] [place]2019-12-19 16:57:00 Test Item Value Reference Range Interpretation Comments BUN (test code = BUN) 24 7-22 [facility] [place]2019-12-19 16:57:00 Test Item Value Reference Range Interpretation Comments Creatinine Lvl (test code = Creatinine 0.95 0.50-1.40 Lvl) [facility] [place]2019-12-19 16:57:00 Test Item Value Reference Range Interpretation Comments Sodium Lvl (test code = Sodium Lvl) 141 135-145 [facility] [place]2019-12-19 16:57:00 Test Item Value Reference Range Interpretation Comments Potassium Lvl (test code = Potassium 4.1 3.5-5.1 Lvl) [facility] [place]2019-12-19 16:57:00 Test Item Value Reference Range Interpretation Comments Chloride Lvl (test code = Chloride Lvl) 107 95-109 [facility] [place]2019-12-19 16:57:00 Test Item Value Reference Range Interpretation Comments CO2 (test code = CO2) 24-32 [facility] [place]2019-12-19 16:57:00 Test Item Value Reference Range Interpretation Comments Calcium Lvl (test code = Calcium Lvl) 9.1 8.5-10.5 [facility] [place]2019-12-19 16:57:00 Test Item Value Reference Range Interpretation Comments eGFR (test code = eGFR) 83 [facility] [place]2019-12-19 16:57:00 Test Item Value Reference Range Interpretation Comments AGAP (test code = AGAP) 12.1 10.0-20.0 [facility] HospitalBccwfnlNZVCREIMHM8394-20-42 16:57:00 Test Item Value Reference Range Interpretation Comments WBC (test code = WBC) 5.5 3.7-10.4 [facility] HospitalJosdzvlXDQYFMUWUD7884-90-96 16:57:00 Test Item Value Reference Range Interpretation Comments RBC (test code = RBC) 3.47 4.70-6.10 [facility] HospitalVawvzkjXLHRHZHUIV5089-99-87 16:57:00 Test Item Value Reference Range Interpretation Comments Hgb (test code = Hgb) 10.7 14.0-18.0 [facility] HospitalWzlirxvZUCQHWPXWP6051-34-40 16:57:00 Test Item Value Reference Range Interpretation Comments Hct (test code = Hct) 32.9 42.0-54.0 [facility] HospitalCwnzncwTXXWNBMSPJ0735-24-82 16:57:00 Test Item Value Reference Range Interpretation Comments MCV (test code = MCV) 94.7 80.0-94.0 [facility] HospitalCrghmdqBGNROTGANV9377-36-91 16:57:00 Test Item Value Reference Range Interpretation Comments MCH (test code = MCH) 30.9 pg 27.0-31.0 [facility] HospitalDfudlwwWDFLOXZHFJ2676-88-72 16:57:00 Test Item Value Reference Range Interpretation Comments MCHC (test code = MCHC) 32.6 32.0-36.0 [facility] HospitalNnzvzirIZXNWFBWBI1132-08-15 16:57:00 Test Item Value Reference Range Interpretation Comments RDW (test code = RDW) 16.6 11.5-14.5 [facility] HospitalQuooufoFFESAGNSOQ1236-47-66 16:57:00 Test Item Value Reference Range Interpretation Comments Platelet (test code = Platelet) 220 133-450 [facility] HospitalCmcoogpQCHPJFVKNC5320-21-66 16:57:00 Test Item Value Reference Range Interpretation Comments MPV (test code = MPV) 7.6 7.4-10.4 [facility] HospitalSbmpbntRYXLHLPPUD9577-05-82 16:57:00 Test Item Value Reference Range Interpretation Comments Segs (test code = Segs) 64.8 45.0-75.0 [facility] HospitalCtfxfdaBYEWKEGKEU9585-29-91 16:57:00 Test Item Value Reference Range Interpretation Comments Lymphocytes (test code = Lymphocytes) 24.8 20.0-40.0 [facility] HospitalWtpdrtzWWFIAWVLXM4707-18-70 16:57:00 Test Item Value Reference Range Interpretation Comments Monocytes (test code = Monocytes) 7.9 2.0-12.0 [facility] HospitalWyzcndlUGOBQHTCHT1943-56-34 16:57:00 Test Item Value Reference Range Interpretation Comments Eosinophils (test code = 1.7 See_Comment [A utomated message] The Eosinophils) system which ge nerated this result tra nsmitted reference range : <=4.0. The reference r madi was not used to int erpret this result as normal/abnormal . [facility] HospitalUzhoovvUGRUGBRVHR1582-91-93 16:57:00 Test Item Value Reference Range Interpretation Comments Basophils (test code = 0.8 See_Comment [Aut omated message] The Basophils) system which ge nerated this result tra nsmitted reference range : <=1.0. The reference r madi was not used to int erpret this result as normal/abnormal . [facility] HospitalCrkehwsHYUFSVOBBF9882-90-26 16:57:00 Test Item Value Reference Range Interpretation Comments Neutrophils # (test code = Neutrophils 3.5 1.5-8.1 #) [facility] HospitalWxhwyrbDTJCSDUNVH2051-90-39 16:57:00 Test Item Value Reference Range Interpretation Comments Lymphocytes # (test code = Lymphocytes 1.4 1.0-5.5 #) [facility] HospitalPnboltqZQPOSMUOCE2056-24-74 16:57:00 Test Item Value Reference Range Interpretation Comments Monocytes # (test code 0.4 See_Comment [Aut omated message] The = Monocytes #) system which generated this result tra nsmitted reference range : <=0.8. The reference r madi was not used to int erpret this result as normal/abnormal . [facility] HospitalHqmaywmGLGJVCBRVE2970-33-35 16:57:00 Test Item Value Reference Range Interpretation Comments Eosinophils # (test code 0.1 See_Comment [A utomated message] The = Eosinophils #) system whic h generated this result tra nsmitted reference range : <=0.5. The reference r madi was not used to int erpret this result as normal/abnormal . [facility] HospitalQqjlkryLCOROBOBQQ4879-27-56 10:31:00 Test Item Value Reference Range Interpretation Comments WBC (test code = WBC) 5.2 3.7-10.4 [facility] HospitalGkrfctgPIDMJLHRII4860-83-50 10:31:00 Test Item Value Reference Range Interpretation Comments RBC (test code = RBC) 3.01 4.70-6.10 [facility] HospitalOuvqmntKHWKFPCKXO6714-18-94 10:31:00 Test Item Value Reference Range Interpretation Comments Hgb (test code = Hgb) 9.8 14.0-18.0 [facility] HospitalMzwjuskUDRNGSUXIA6418-36-33 10:31:00 Test Item Value Reference Range Interpretation Comments Hct (test code = Hct) 28.8 42.0-54.0 [facility] HospitalShvwiumJWWUUAMWAN5885-68-04 10:31:00 Test Item Value Reference Range Interpretation Comments MCV (test code = MCV) 95.5 80.0-94.0 [facility] HospitalYilwoqiYSJKVYGLDN0590-73-24 10:31:00 Test Item Value Reference Range Interpretation Comments MCH (test code = MCH) 32.4 pg 27.0-31.0 [facility] HospitalYnziasjADUDRMQXBP2120-50-61 10:31:00 Test Item Value Reference Range Interpretation Comments MCHC (test code = MCHC) 33.9 32.0-36.0 [facility] HospitalCbzmqprPIKWYTSTAW7299-49-62 10:31:00 Test Item Value Reference Range Interpretation Comments RDW (test code = RDW) 16.7 11.5-14.5 [facility] HospitalInwglxmTFNSKMNBRN3558-04-75 10:31:00 Test Item Value Reference Range Interpretation Comments Platelet (test code = Platelet) 216 133-450 [facility] HospitalWhsldgrWLOSVOBVOZ1860-06-38 10:31:00 Test Item Value Reference Range Interpretation Comments MPV (test code = MPV) 7.9 7.4-10.4 [facility] HospitalWfwgywiOUJROTRWFE9790-41-50 10:31:00 Test Item Value Reference Range Interpretation Comments Segs (test code = Segs) 56.8 45.0-75.0 [facility] HospitalGwpbdimJMWWJXKKYD9867-07-99 10:31:00 Test Item Value Reference Range Interpretation Comments Lymphocytes (test code = Lymphocytes) 30.6 20.0-40.0 [facility] HospitalKaximtqJHBIROOJXA1604-91-05 10:31:00 Test Item Value Reference Range Interpretation Comments Monocytes (test code = Monocytes) 9.4 2.0-12.0 [facility] HospitalJhwvzqpBJMAQCSGOL2440-73-65 10:31:00 Test Item Value Reference Range Interpretation Comments Eosinophils (test code = 2.2 See_Comment [A utomated message] The Eosinophils) system which ge nerated this result tra nsmitted reference range : <=4.0. The reference r madi was not used to int erpret this result as normal/abnormal . [facility] HospitalBbxozzxHDSONQZMAV4012-66-18 10:31:00 Test Item Value Reference Range Interpretation Comments Basophils (test code = 1.0 See_Comment [Aut omated message] The Basophils) system which ge nerated this result tra nsmitted reference range : <=1.0. The reference r madi was not used to int erpret this result as normal/abnormal . [facility] HospitalDfovtssUTXENGEPKC5203-78-33 10:31:00 Test Item Value Reference Range Interpretation Comments Neutrophils # (test code = Neutrophils 3.0 1.5-8.1 #) [facility] HospitalVlwevcyFWINMPJPWK7033-50-48 10:31:00 Test Item Value Reference Range Interpretation Comments Lymphocytes # (test code = Lymphocytes 1.6 1.0-5.5 #) [facility] HospitalWtgecqtNIRITKPIJF8588-00-90 10:31:00 Test Item Value Reference Range Interpretation Comments Monocytes # (test code 0.5 See_Comment [Aut omated message] The = Monocytes #) system which generated this result tra nsmitted reference range : <=0.8. The reference r madi was not used to int erpret this result as normal/abnormal . [facility] HospitalSywdsriIDFTXAITVY5787-55-79 10:31:00 Test Item Value Reference Range Interpretation Comments Eosinophils # (test code 0.1 See_Comment [A utomated message] The = Eosinophils #) system whic h generated this result tra nsmitted reference range : <=0.5. The reference r madi was not used to int erpret this result as normal/abnormal . [facility] HospitalEyvkpseFOBYJHLOAJ8595-10-83 10:31:00 Test Item Value Reference Range Interpretation Comments Basophils # (test code 0.1 See_Comment [Aut omated message] The = Basophils #) system which generated this result tra nsmitted reference range : <=0.2. The reference r madi was not used to int erpret this result as normal/abnormal . [facility] [id number] 07:47:00 Test Item Value Reference Range Interpretation Comments Magnesium Lvl (test code = Magnesium 2.0 1.8-2.4 Lvl) [facility] [id number] 07:47:00 Test Item Value Reference Range Interpretation Comments Phosphorus (test code = Phosphorus) 3.7 2.5-4.5 [facility]annPARATHYROID [id number] 07:47:00 Test Item Value Reference Range Interpretation Comments Ca Ion WB (test code = Ca Ion WB) 1.10 1.05-1.25 [facility]annPARGAR[facility]ENTERROID [id number] 07:47:00 Test Item Value Reference Range Interpretation Comments Ca Norm WB (test code = Ca Norm WB) 1.15 1.05-1.25 [facility] [id number] 07:24:00 Test Item Value Reference Range Interpretation Comments Magnesium Lvl (test code = Magnesium 2.0 1.8-2.4 Lvl) [facility] [id number] 07:24:00 Test Item Value Reference Range Interpretation Comments Phosphorus (test code = Phosphorus) 3.5 2.5-4.5 [facility]annPARATHYROID [id number] 07:24:00 Test Item Value Reference Range Interpretation Comments Ca Ion WB (test code = Ca Ion WB) 1.21 1.05-1.25 [facility]annPARATHYROID [id number] 07:24:00 Test Item Value Reference Range Interpretation Comments Ca Norm WB (test code = Ca Norm WB) 1.25 1.05-1.25 [facility]annCARDIAC [id number] 17:02:00 Test Item Value Reference Range Interpretation Comments BNP (test code = BNP) 111 [facility] ResourcesURINE [id number] 16:41:00 Test Item Value Reference Range Interpretation Comments U Osmolality (test code = U Osmolality) 560 300-800 [facility]CARD[facility]AC [id number] 05:31:00 Test Item Value Reference Range Interpretation Comments BNP (test code = BNP) 89 [facility] [id number] 05:31:00 Test Item Value Reference Range Interpretation Comments Magnesium Lvl (test code = Magnesium 1.8 1.8-2.4 Lvl) [facility] [id number] 05:31:00 Test Item Value Reference Range Interpretation Comments Phosphorus (test code = Phosphorus) 3.1 2.5-4.5 [facility] ResourcesPARATHYROID [id number] 05:31:00 Test Item Value Reference Range Interpretation Comments Ca Ion WB (test code = Ca Ion WB) 1.16 1.05-1.25 [facility] ResourcesPARGAR[facility] CENTERROID [id number] 05:31:00 Test Item Value Reference Range Interpretation Comments Ca Norm WB (test code = Ca Norm WB) 1.20 1.05-1.25 [facility] AND [id number] 21:58:00 Test Item Value Reference Range Interpretation Comments UA Color (test code = Yellow *NA*(03/31/19 UA Color) 3:58 PM) [facility] AND [id number] 21:58:00 Test Item Value Reference Range Interpretation Comments UA Turbidity (test code Slight Cloudy = UA Turbidity) (03/31/19 3:58 PM) [facility] AND [id number] 21:58:00 Test Item Value Reference Range Interpretation Comments UA Spec Grav (test code = UA Spec 1.020 1 Grav) [facility] AND [id number] 21:58:00 Test Item Value Reference Range Interpretation Comments UA pH (test code = UA pH) 7.5 1 5.0-8.0 [facility] AND [id number] 21:58:00 Test Item Value Reference Range Interpretation Comments UA Protein (test code = UA Negative mg/dL Protein) [facility] AND [id number] 21:58:00 Test Item Value Reference Range Interpretation Comments UA Glucose (test code = UA Negative mg/dL Glucose) [facility] AND [id number] 21:58:00 Test Item Value Reference Range Interpretation Comments UA Ketones (test code = UA Negative mg/dL Ketones) [facility] AND [id number] 21:58:00 Test Item Value Reference Range Interpretation Comments UA Bili (test code = Negative *NA*(03/31/19 UA Bili) 3:58 PM) [facility] [id number] 21:58:00 Test Item Value Reference Range Interpretation Comments UA Blood (test code = Negative (03/31/19 3:58 UA Blood) PM) [facility] [id number] 21:58:00 Test Item Value Reference Range Interpretation Comments UA Urobilinogen (test code = UA 0.2 0.1-1.0 Urobilinogen) [facility] [id number] 21:58:00 Test Item Value Reference Range Interpretation Comments UA Nitrite (test code Negative (03/31/19 3:58 = UA Nitrite) PM) [facility] [id number] 21:58:00 Test Item Value Reference Range Interpretation Comments UA Leuk Est (test Negative (03/31/19 3:58 code = UA Leuk Est) PM) [facility] AND [id number] 21:58:00 Test Item Value Reference Range Interpretation Comments UA Amorph Rani (test code = Occasional /HPF UA Amorph Rani) [facility] AND [id number] 21:58:00 Test Item Value Reference Range Interpretation Comments UA Sq Epi (test code = None Seen (03/31/19 UA Sq Epi) 3:58 PM) [facility] [id number] 17:36:00 Test Item Value Reference Range Interpretation Comments Procalcitonin Lvl <0.05 ng/mL See_Comment [Automate d message] (test code = The system ic h Procalcitonin Lvl) generated this result transmit guillaume reference range : <=0.10. The reference range was not used to interpret this result as normal/abnormal . [facility] N-1-1 [id number] 17:36:00 Test Item Value Reference Range Interpretation Comments B/C Ratio (test code = B/C Ratio) 18 1 6-25 [facility] [id number] 17:36:00 Test Item Value Reference Range Interpretation Comments Total Protein (test code = Total 5.8 6.4-8.4 Protein) [facility] [id number] 17:36:00 Test Item Value Reference Range Interpretation Comments Albumin Lvl (test code = Albumin Lvl) 2.4 3.5-5.0 [facility] [place]2019-12-12 17:36:00 Test Item Value Reference Range Interpretation Comments Globulin (test code = Globulin) 3.4 2.7-4.2 [facility] [place]2019-12-12 17:36:00 Test Item Value Reference Range Interpretation Comments A/G Ratio (test code = A/G Ratio) 0.7 1 0.7-1.6 [facility] [place]2019-12-12 17:36:00 Test Item Value Reference Range Interpretation Comments ALT (test code = ALT) 17 See_Comment [Auto mated message] The system which ge nerated this result transmit guillaume reference range : <=65. The reference range was not used to interpr et this result as jd l/abnormal. [facility] [place]2019-12-12 17:36:00 Test Item Value Reference Range Interpretation Comments AST (test code = AST) 14 See_Comment [Auto mated message] The system which ge nerated this result transmit guillaume reference range : <=37. The reference range was not used to interpr et this result as jd l/abnormal. [facility] [place]2019-12-12 17:36:00 Test Item Value Reference Range Interpretation Comments Alk Phos (test code = Alk Phos) 81 39-136 [facility] [place]2019-12-12 17:36:00 Test Item Value Reference Range Interpretation Comments Bili Total (test code = Bili Total) 0.4 0.2-1.3 [facility] R[id number] 17:36:00 Test Item Value Reference Range Interpretation Comments Sed Rate (test code = 45 See_Comment [Auto mated message] The Sed Rate) system which ge nerated this result transmit guillaume reference range : <=15. The reference range was not used to interpr et this result as jd l/abnormal. [facility] Re[id number] 17:36:00 Test Item Value Reference Range Interpretation Comments C-REACTIVE PROTEIN (test code = 22.6 C-REACTIVE PROTEIN) [facility]2019-12-12 15:26:00 Test Item Value Reference Range Interpretation Comments U Sodium (test code = U Sodium) 99 [facility]2019-12-12 15:26:00 Test Item Value Reference Range Interpretation Comments U Osmolality (test code = U Osmolality) 452 300-800 [facility] [id number] 15:26:00 Test Item Value Reference Range Interpretation Comments U Potassium (test code = U Potassium) 34.2 [facility] [id number] 15:26:00 Test Item Value Reference Range Interpretation Comments U Chloride (test code = U Chloride) 115 [facility] [id number] 15:26:00 Test Item Value Reference Range Interpretation Comments U Creatinine (test code = U Creatinine) 52.60 [facility] N-1-1 [id number] 14:40:00 Test Item Value Reference Range Interpretation Comments Osmolality (test code = Osmolality) 260 280-300 [facility] PasoWalkSourceVHAEH4801-22-15 11:26:00 Test Item Value Reference Range Interpretation Comments Osmolality (test code = Osmolality) 250 280-300 [facility] [employer] [id number] 06:30:00 Test Item Value Reference Range Interpretation Comments ABO/Rh (test code = ABO/Rh) O POS [facility] [employer] [id number] 06:30:00 Test Item Value Reference Range Interpretation Comments Antibody Scrn (test Negative (03/29/19 code = Antibody Scrn) 12:30 AM) [facility] PasoAcuity SystemsBACTERIAL - [id number] 06:16:00 Test Item Value Reference Range Interpretation Comments MRSA by PCR (test Negative (03/29/19 12:16 code = MRSA by PCR) AM) [facility] [id number] 06:16:00 Test Item Value Reference Range Interpretation Comments Basophils # (test code 0.1 See_Comment [Aut omated message] The = Basophils #) system which generated this result tra nsmitted reference range : <=0.2. The reference r madi was not used to int erpret this result as normal/abnormal . [facility] [facility]gncznsIWKOHYIJAP8954-72-81 03:36:00 Test Item Value Reference Range Interpretation Comments PT (test code = PT) 13.7 s 12.0-14.7 [facility]CuybojcVBRQPYLVLR0921-67-46 03:36:00 Test Item Value Reference Range Interpretation Comments INR (test code = INR) 1.07 1 0.85-1.17 [facility]YxllhrpJRYOQRDZCZ0614-05-42 03:36:00 Test Item Value Reference Range Interpretation Comments PTT (test code = PTT) 30.9 s 22.9-35.8 [facility] HospitalGlrdoebKOAIGKFYDO4247-60-62 03:36:00 Test Item Value Reference Range Interpretation Comments Estimated % Lysis Rapid 3.0 See_Comment [Au tomated message] The (test code = Estimated syste m which generated % Lysis Rapid) this result t ransmitted reference range : <=7.5. The reference r madi was not used to int erpret this result as normal/abnormal . [facility] HospitalKsvnzntPQBMWFRPHM0505-88-89 03:36:00 Test Item Value Reference Range Interpretation Comments ACT (TEG) Rapid (test code = ACT (TEG) 113 s 86-118 Rapid) [facility] HospitalDvqofimJWUZAGARGM6467-53-96 03:36:00 Test Item Value Reference Range Interpretation Comments Split Point Rapid (test code = Split 0.5 min Point Rapid) [facility] HospitalIenufcyIXHNKDYZQX5810-05-68 03:36:00 Test Item Value Reference Range Interpretation Comments R-time Rapid (test code = R-time 0.7 min 0.4-0.7 Rapid) [facility] HospitalOjdxwzoNMQJKJAGWF3833-70-19 03:36:00 Test Item Value Reference Range Interpretation Comments K-time Rapid (test code = K-time 1.5 min 0.6-2.3 Rapid) [facility] HospitalJwaklsuIQELBIFFNQ1223-53-61 03:36:00 Test Item Value Reference Range Interpretation Comments Angle Rapid (test code = Angle 73 degrees 64-80 Rapid) [facility] HospitalChaawhnQWLBBNCLOO5520-23-38 03:36:00 Test Item Value Reference Range Interpretation Comments Max Amplitude Rapid (test code = Max 62 mm 52-71 Amplitude Rapid) [facility] HospitalVqnfnszMSOSKIZHCF6747-79-57 03:36:00 Test Item Value Reference Range Interpretation Comments G-value Rapid (test code = G-value 8.2 5.0-11.6 Rapid) [facility]2019-12-12 02:53:00 Test Item Value Reference Range Interpretation Comments Osmolality (test code = Osmolality) 251 280-300 [facility] AND [id number] 23:27:00 Test Item Value Reference Range Interpretation Comments UA Color (test code = Yellow *NA*(03/28/19 UA Color) 5:27 PM) [facility] AND [id number] 23:27:00 Test Item Value Reference Range Interpretation Comments UA Turbidity (test code = Clear (03/28/19 5:27 UA Turbidity) PM) [facility] AND [id number] 23:27:00 Test Item Value Reference Range Interpretation Comments UA Spec Grav (test code = UA Spec 1.010 1 Grav) [facility] AND [id number] 23:27:00 Test Item Value Reference Range Interpretation Comments UA pH (test code = UA pH) 7.0 1 5.0-8.0 [facility] AND [id number] 23:27:00 Test Item Value Reference Range Interpretation Comments UA Protein (test code = UA Negative mg/dL Protein) [facility] AND [id number] 23:27:00 Test Item Value Reference Range Interpretation Comments UA Glucose (test code = UA Negative mg/dL Glucose) [facility] AND [id number] 23:27:00 Test Item Value Reference Range Interpretation Comments UA Ketones (test code = UA Negative mg/dL Ketones) [facility] AND [id number] 23:27:00 Test Item Value Reference Range Interpretation Comments UA Bili (test code = Negative *NA*(03/28/19 UA Bili) 5:27 PM) [facility] AND [id number] 23:27:00 Test Item Value Reference Range Interpretation Comments UA Blood (test code = Negative (03/28/19 5:27 UA Blood) PM) [facility] AND [id number] 23:27:00 Test Item Value Reference Range Interpretation Comments UA Nitrite (test code Negative (03/28/19 5:27 = UA Nitrite) PM) [facility] AND [id number] 23:27:00 Test Item Value Reference Range Interpretation Comments UA Leuk Est (test code Trace *ABN*(03/28/19 = UA Leuk Est) 5:27 PM) [facility] AND [id number] 23:27:00 Test Item Value Reference Range Interpretation Comments UA Sq Epi (test code = UA Sq Occasional /LPF Epi) [facility] AND [id number] 23:27:00 Test Item Value Reference Range Interpretation Comments UA WBC (test code = 8 See_Comment [Automa guillaume message] The UA WBC) system which ge nerated this result transmit guillaume reference range : <=5. The reference range was not used to interpr et this result as jd l/abnormal. [facility] [id number] 23:27:00 Test Item Value Reference Range Interpretation Comments UA RBC (test code = 2 See_Comment [Automa guillaume message] The UA RBC) system which ge nerated this result transmit guillaume reference range : <=2. The reference range was not used to interpr et this result as jd l/abnormal. [facility] [id number] 23:27:00 Test Item Value Reference Range Interpretation Comments UA Bacteria (test code = UA Occasional /HPF Bacteria) [facility] [id number] 23:27:00 Test Item Value Reference Range Interpretation Comments UA Urobilinogen (test code = UA <=1.0 mg/dL 0.1-1.0 Urobilinogen) [facility] [id number] 23:27:00 Test Item Value Reference Range Interpretation Comments U Sodium (test code = U Sodium) 98 [facility] [id number] 23:27:00 Test Item Value Reference Range Interpretation Comments U Potassium (test code = U Potassium) 39.2 [facility] [id number] 23:27:00 Test Item Value Reference Range Interpretation Comments U Chloride (test code = U Chloride) 110 [facility] [id number] 23:27:00 Test Item Value Reference Range Interpretation Comments U Osmolality (test code = U Osmolality) 465 300-800 [facility]annCARDIAC GPEAHCQ1030-81-55 22:09:00 Test Item Value Reference Range Interpretation Comments Troponin-I (test code no gt See_Comment [Auto mated message] The = Troponin-I) system which g enerated this result transmit guillaume reference range : <=0.40. The reference r madi was not used to interpr et this result as jd l/abnormal. [facility]comannCARDIAC WRGFQYH2052-55-86 22:09:00 Test Item Value Reference Range Interpretation Comments BNP (test code = BNP) 74 [facility]annCHEM [id number] 22:09:00 Test Item Value Reference Range Interpretation Comments eGFR (test code = eGFR) 95 [facility] HospitalEykxpyvUSFMCBDZHY7031-96-51 22:09:00 Test Item Value Reference Range Interpretation Comments WBC X 10x3 (test code = WBC X 10x3) 5.8 3.7-10.4 [facility] HospitalOwtwldfQSGANSGLZB5680-32-98 22:09:00 Test Item Value Reference Range Interpretation Comments RBC X 10x6 (test code = RBC X 10x6) 3.67 4.70-6.10 [facility] HospitalUpnaaaxZYLYKUUYLS7466-10-88 22:09:00 Test Item Value Reference Range Interpretation Comments Hgb (test code = Hgb) 11.6 14.0-18.0 [facility] HospitalOvrypkoEURUFJIAUA8346-87-89 22:09:00 Test Item Value Reference Range Interpretation Comments Hct (test code = Hct) 33.4 42.0-54.0 [facility] HospitalKavcrpsFWGTQHWXKU5060-34-14 22:09:00 Test Item Value Reference Range Interpretation Comments MCV (test code = MCV) 90.9 80.0-94.0 [facility] HospitalTpgqdtkWXBKQJPGHS4351-54-74 22:09:00 Test Item Value Reference Range Interpretation Comments MCH (test code = MCH) 31.6 pg 27.0-31.0 [facility] HospitalFittjzcRMAFTFFBAQ2809-26-74 22:09:00 Test Item Value Reference Range Interpretation Comments MCHC (test code = MCHC) 34.8 32.0-36.0 [facility] HospitalLdbycauHTKMDWKXWB0761-18-21 22:09:00 Test Item Value Reference Range Interpretation Comments RDW (test code = RDW) 16.5 11.5-14.5 [facility] HospitalCclmqweCVNRQQWVVM9468-33-50 22:09:00 Test Item Value Reference Range Interpretation Comments Platelet (test code = Platelet) 198 133-450 [facility] HospitalLxekfcfYLOSFDHLPX8441-56-19 22:09:00 Test Item Value Reference Range Interpretation Comments MPV (test code = MPV) 6.9 7.4-10.4 [facility] HospitalGtzrqahDSLIHUQXBB5621-91-82 22:09:00 Test Item Value Reference Range Interpretation Comments PT (test code = PT) 14.1 s 12.0-14.7 [facility] HospitalJrjllvnHIRBWNSHXF7402-49-33 22:09:00 Test Item Value Reference Range Interpretation Comments INR (test code = INR) 1.11 1 0.85-1.17 [facility] HospitalPyybturOYNOWRTPVP6438-36-15 22:09:00 Test Item Value Reference Range Interpretation Comments Segs (test code = Segs) 59.5 45.0-75.0 [facility] HospitalHrluvngCBDFHCITMH5322-00-73 22:09:00 Test Item Value Reference Range Interpretation Comments Lymphocytes (test code = Lymphocytes) 21.9 20.0-40.0 [facility] HospitalMcgmtkvDKHNGHRTYY4997-74-18 22:09:00 Test Item Value Reference Range Interpretation Comments Monocytes (test code = Monocytes) 16.3 2.0-12.0 [facility] HospitalMmmuiymJFSBDQJUEX3794-68-79 22:09:00 Test Item Value Reference Range Interpretation Comments Eosinophils (test code = 1.8 See_Comment [A utomated message] The Eosinophils) system which ge nerated this result tra nsmitted reference range : <=4.0. The reference r madi was not used to int erpret this result as normal/abnormal . [facility] HospitalEmcnnznUNKLCQXTQI9269-80-45 22:09:00 Test Item Value Reference Range Interpretation Comments Basophils (test code = 0.5 See_Comment [Aut omated message] The Basophils) system which ge nerated this result tra nsmitted reference range : <=1.0. The reference r madi was not used to int erpret this result as normal/abnormal . [facility] HospitalLcpybtyJBUIDAVMCW8408-97-29 22:09:00 Test Item Value Reference Range Interpretation Comments Neutrophils # (test code = Neutrophils 3.5 1.5-8.1 #) [facility] HospitalGurjukuCJSQYZIDWB2023-24-38 22:09:00 Test Item Value Reference Range Interpretation Comments Lymphocytes # (test code = Lymphocytes 1.3 1.0-5.5 #) [facility] HospitalYxgkzmcOFFKLOXDFD8333-49-05 22:09:00 Test Item Value Reference Range Interpretation Comments Monocytes # (test code 1.0 See_Comment [Aut omated message] The = Monocytes #) system which generated this result tra nsmitted reference range : <=0.8. The reference r madi was not used to int erpret this result as normal/abnormal . [facility] HospitalUhdzcrbQNXZXKPUAQ7784-11-13 22:09:00 Test Item Value Reference Range Interpretation Comments Eosinophils # (test code 0.1 See_Comment [A utomated message] The = Eosinophils #) system whic h generated this result tra nsmitted reference range : <=0.5. The reference r madi was not used to int erpret this result as normal/abnormal . [facility] HospitalNmldqhiDGLCMPCMQN0404-09-24 22:09:00 Test Item Value Reference Range Interpretation Comments Basophils # (test code 0.0 See_Comment [Aut omated message] The = Basophils #) system which generated this result tra nsmitted reference range : <=0.2. The reference r madi was not used to int erpret this result as normal/abnormal . [facility]2019-12-11 22:07:00 Test Item Value Reference Range Interpretation Comments Glucose Lvl (test code = Glucose Lvl) 107 70-99 [facility]2019-12-11 22:07:00 Test Item Value Reference Range Interpretation Comments BUN (test code = BUN) 15 7-22 [facility]2019-12-11 22:07:00 Test Item Value Reference Range Interpretation Comments Creatinine Lvl (test code = Creatinine 0.77 0.50-1.40 Lvl) [facility]2019-12-11 22:07:00 Test Item Value Reference Range Interpretation Comments Sodium Lvl (test code = Sodium Lvl) 120 135-145 [facility]2019-12-11 22:07:00 Test Item Value Reference Range Interpretation Comments Potassium Lvl (test code = Potassium 4.9 3.5-5.1 Lvl) [facility]2019-12-11 22:07:00 Test Item Value Reference Range Interpretation Comments Chloride Lvl (test code = Chloride Lvl) 86 95-109 [facility]2019-12-11 22:07:00 Test Item Value Reference Range Interpretation Comments CO2 (test code = CO2) 26 24-32 [facility]2019-12-11 22:07:00 Test Item Value Reference Range Interpretation Comments AGAP (test code = AGAP) 12.9 10.0-20.0 [facility]2019-12-11 22:07:00 Test Item Value Reference Range Interpretation Comments Calcium Lvl (test code = Calcium Lvl) 8.3 8.5-10.5 [facility]IecbezkXGQFALTDLFQN3348-03-47 15:16:00 Test Item Value Reference Range Interpretation Comments Sodium Lvl (test code = Sodium Lvl) 134 135-145 [facility]2019-11-22 06:37:00 Test Item Value Reference Range Interpretation Comments Glucose Lvl (test code = Glucose Lvl) 250 70-99 [facility]2019-11-22 06:37:00 Test Item Value Reference Range Interpretation Comments BUN (test code = BUN) 22 7-22 [facility]2019-11-22 06:37:00 Test Item Value Reference Range Interpretation Comments Creatinine Lvl (test code = Creatinine 1.04 0.50-1.40 Lvl) [facility]2019-11-22 06:37:00 Test Item Value Reference Range Interpretation Comments Sodium Lvl (test code = Sodium Lvl) 133 135-145 [facility]2019-11-22 06:37:00 Test Item Value Reference Range Interpretation Comments Potassium Lvl (test code = Potassium 4.6 3.5-5.1 Lvl) [facility]2019-11-22 06:37:00 Test Item Value Reference Range Interpretation Comments Chloride Lvl (test code = Chloride Lvl) 104 95-109 [facility]2019-11-22 06:37:00 Test Item Value Reference Range Interpretation Comments CO2 (test code = CO2) 23 24-32 [facility]2019-11-22 06:37:00 Test Item Value Reference Range Interpretation Comments Calcium Lvl (test code = Calcium Lvl) 8.1 8.5-10.5 [facility]2019-11-22 06:37:00 Test Item Value Reference Range Interpretation Comments eGFR (test code = eGFR) 75 [facility]2019-11-22 06:37:00 Test Item Value Reference Range Interpretation Comments AGAP (test code = AGAP) 10.6 10.0-20.0 [facility] HospitalSptvzukYKVTCYZAAK2345-23-89 06:37:00 Test Item Value Reference Range Interpretation Comments Segs (test code = Segs) 75.8 45.0-75.0 [facility] HospitalDgsioawDCVDYUTLET3633-20-41 06:37:00 Test Item Value Reference Range Interpretation Comments Lymphocytes (test code = Lymphocytes) 11.7 20.0-40.0 [facility] HospitalVftrdnwIZJCZMTYXW0679-82-59 06:37:00 Test Item Value Reference Range Interpretation Comments Monocytes (test code = Monocytes) 10.9 2.0-12.0 [facility] HospitalVzcdxdlXOISDOLUIE4581-43-77 06:37:00 Test Item Value Reference Range Interpretation Comments Eosinophils (test code = 1.3 See_Comment [A utomated message] The Eosinophils) system which ge nerated this result tra nsmitted reference range : <=4.0. The reference r madi was not used to int erpret this result as normal/abnormal . [facility] HospitalNnugxjlCSLPPEICVJ8740-49-30 06:37:00 Test Item Value Reference Range Interpretation Comments Basophils (test code = 0.3 See_Comment [Aut omated message] The Basophils) system which ge nerated this result tra nsmitted reference range : <=1.0. The reference r madi was not used to int erpret this result as normal/abnormal . [facility] HospitalOxcbaboPTXASRLAJO1465-39-22 06:37:00 Test Item Value Reference Range Interpretation Comments Neutrophils # (test code = Neutrophils 6.1 1.5-8.1 #) [facility] HospitalTylapmiUBUNMPHTVR3533-56-51 06:37:00 Test Item Value Reference Range Interpretation Comments Lymphocytes # (test code = Lymphocytes 0.9 1.0-5.5 #) [facility] HospitalIbyvddvBCKDBTQEJW1260-55-89 06:37:00 Test Item Value Reference Range Interpretation Comments Monocytes # (test code 0.9 See_Comment [Aut omated message] The = Monocytes #) system which generated this result tra nsmitted reference range : <=0.8. The reference r madi was not used to int erpret this result as normal/abnormal . [facility] HospitalDpxomxxILLUEVVOSF7399-80-30 06:37:00 Test Item Value Reference Range Interpretation Comments Eosinophils # (test code 0.1 See_Comment [A utomated message] The = Eosinophils #) system whic h generated this result tra nsmitted reference range : <=0.5. The reference r madi was not used to int erpret this result as normal/abnormal . [facility] HospitalNbltmhtJKLMVXZAVI5995-92-45 06:37:00 Test Item Value Reference Range Interpretation Comments WBC (test code = WBC) 8.1 3.7-10.4 [facility] HospitalUvozivcTHOZNNTPRQ7454-84-49 06:37:00 Test Item Value Reference Range Interpretation Comments RBC (test code = RBC) 2.86 4.70-6.10 [facility] HospitalNoxbysxSVMBDCBBAH1650-97-79 06:37:00 Test Item Value Reference Range Interpretation Comments Hgb (test code = Hgb) 9.0 14.0-18.0 [facility] HospitalGokfhbnFJPOREGJUE6840-55-64 06:37:00 Test Item Value Reference Range Interpretation Comments Hct (test code = Hct) 27.2 42.0-54.0 [facility] HospitalAlhivfgKNCUOODTVE1028-12-20 06:37:00 Test Item Value Reference Range Interpretation Comments MCV (test code = MCV) 95.1 80.0-94.0 [facility] HospitalEsigtopSCYPCSXSTD6010-65-10 06:37:00 Test Item Value Reference Range Interpretation Comments MCH (test code = MCH) 31.5 pg 27.0-31.0 [facility] HospitalQzgsrleOXWIGSYIBM1308-13-27 06:37:00 Test Item Value Reference Range Interpretation Comments MCHC (test code = MCHC) 33.1 32.0-36.0 [facility] HospitalYigcahqPFWFVGCWGX1898-10-69 06:37:00 Test Item Value Reference Range Interpretation Comments RDW (test code = RDW) 19.0 11.5-14.5 [facility] HospitalAxpdcxxBJYLDQQYST2726-39-66 06:37:00 Test Item Value Reference Range Interpretation Comments Platelet (test code = Platelet) 161 133-450 [facility] HospitalUwpaausDNDYZQJBHR4681-17-11 06:37:00 Test Item Value Reference Range Interpretation Comments MPV (test code = MPV) 10.0 7.4-10.4 [facility]ShhgwobNOLJQUSSDHML9035-36-87 22:16:00 Test Item Value Reference Range Interpretation Comments Sodium Lvl (test code = Sodium Lvl) 133 135-145 [facility] HospitalPqoausfZWXAHWBRUA2391-68-48 17:18:00 Test Item Value Reference Range Interpretation Comments WBC (test code = WBC) 8.5 3.7-10.4 [facility] HospitalPenxaofAJYIDNDUHO0216-30-00 17:18:00 Test Item Value Reference Range Interpretation Comments RBC (test code = RBC) 3.27 4.70-6.10 [facility] HospitalHyttoimICDLOHUUCX0424-98-99 17:18:00 Test Item Value Reference Range Interpretation Comments Hgb (test code = Hgb) 10.2 14.0-18.0 [facility] HospitalJplskmhTRBSQTTSEJ9456-94-85 17:18:00 Test Item Value Reference Range Interpretation Comments Hct (test code = Hct) 31.2 42.0-54.0 [facility] HospitalWoetwjaWDJVWFNQKW6293-08-32 17:18:00 Test Item Value Reference Range Interpretation Comments MCV (test code = MCV) 95.5 80.0-94.0 [facility] HospitalXclkhllQXCKMIYTBP2098-23-79 17:18:00 Test Item Value Reference Range Interpretation Comments MCH (test code = MCH) 31.3 pg 27.0-31.0 [facility] HospitalYwcohhkEMVPIFXRHX6560-06-93 17:18:00 Test Item Value Reference Range Interpretation Comments MCHC (test code = MCHC) 32.7 32.0-36.0 [facility] HospitalPgmdfjnXDHNMYJEIO4664-48-42 17:18:00 Test Item Value Reference Range Interpretation Comments RDW (test code = RDW) 19.1 11.5-14.5 [facility] HospitalWtvingyCNEGLEDRWH7054-73-78 17:18:00 Test Item Value Reference Range Interpretation Comments Platelet (test code = Platelet) 174 133-450 [facility] HospitalZjvmzsvOFQYPITMMJ5504-20-79 17:18:00 Test Item Value Reference Range Interpretation Comments MPV (test code = MPV) 9.8 7.4-10.4 [facility] HospitalIjffkaeGBXJZLHSUJ7800-48-86 17:18:00 Test Item Value Reference Range Interpretation Comments Segs (test code = Segs) 76.3 45.0-75.0 [facility] HospitalYaoulmzGIPNCKRIPM7075-06-18 17:18:00 Test Item Value Reference Range Interpretation Comments Lymphocytes (test code = Lymphocytes) 11.5 20.0-40.0 [facility] HospitalOtbcdozVTTOGFDZIL1857-11-94 17:18:00 Test Item Value Reference Range Interpretation Comments Monocytes (test code = Monocytes) 11.0 2.0-12.0 [facility] HospitalNnzovhgDAFQUNPLSW1349-62-52 17:18:00 Test Item Value Reference Range Interpretation Comments Eosinophils (test code = 1.0 See_Comment [A utomated message] The Eosinophils) system which ge nerated this result tra nsmitted reference range : <=4.0. The reference r madi was not used to int erpret this result as normal/abnormal . [facility] HospitalVvtccebEAMQXEOJFB9897-50-61 17:18:00 Test Item Value Reference Range Interpretation Comments Basophils (test code = 0.2 See_Comment [Aut omated message] The Basophils) system which ge nerated this result tra nsmitted reference range : <=1.0. The reference r madi was not used to int erpret this result as normal/abnormal . [facility] HospitalCywvvoxUJAZDLSYDZ5177-98-47 17:18:00 Test Item Value Reference Range Interpretation Comments Neutrophils # (test code = Neutrophils 6.5 1.5-8.1 #) [facility] HospitalFtoslwxOLAPLGWOWW5057-09-83 17:18:00 Test Item Value Reference Range Interpretation Comments Lymphocytes # (test code = Lymphocytes 1.0 1.0-5.5 #) [facility] HospitalQoxsbilHOYQQWSSSF1832-69-05 17:18:00 Test Item Value Reference Range Interpretation Comments Monocytes # (test code 0.9 See_Comment [Aut omated message] The = Monocytes #) system which generated this result tra nsmitted reference range : <=0.8. The reference r madi was not used to int erpret this result as normal/abnormal . [facility] HospitalXwouisaQJGCFEYSZO9498-66-37 17:18:00 Test Item Value Reference Range Interpretation Comments Eosinophils # (test code 0.1 See_Comment [A utomated message] The = Eosinophils #) system whic h generated this result tra nsmitted reference range : <=0.5. The reference r madi was not used to int erpret this result as normal/abnormal . [facility]PzrtysgMUTDXYYBSKCM0695-19-03 11:13:00 Test Item Value Reference Range Interpretation Comments AGAP (test code = AGAP) 10.7 10.0-20.0 [facility] HospitalYrvqhfgPWLJXAXTZDSW6169-86-05 11:13:00 Test Item Value Reference Range Interpretation Comments Glucose Lvl (test code = Glucose Lvl) 250 70-99 [facility] HospitalAhyogkpXQJEVCHPEEIS8822-82-99 11:13:00 Test Item Value Reference Range Interpretation Comments BUN (test code = BUN) 22 7-22 [facility] HospitalJarvxfsDKIDQMXSKIDL8332-51-52 11:13:00 Test Item Value Reference Range Interpretation Comments Creatinine Lvl (test code = Creatinine 1.26 0.50-1.40 Lvl) [facility] HospitalKlszennVHUEMDTGVGYA0034-59-62 11:13:00 Test Item Value Reference Range Interpretation Comments Potassium Lvl (test code = Potassium 4.7 3.5-5.1 Lvl) [facility] HospitalEuequokTOHOBGXVQLOW8747-14-84 11:13:00 Test Item Value Reference Range Interpretation Comments Chloride Lvl (test code = Chloride Lvl) 105 95-109 [facility] HospitalCsxoheoVAREZIPLUFRK0567-95-47 11:13:00 Test Item Value Reference Range Interpretation Comments CO2 (test code = CO2) 21 24-32 [facility] HospitalBmyzgzkPVOSXJUPAXTQ2228-17-74 11:13:00 Test Item Value Reference Range Interpretation Comments Calcium Lvl (test code = Calcium Lvl) 7.9 8.5-10.5 [facility] HospitalDtsramiKKFBPWIKZXZK3792-24-39 11:13:00 Test Item Value Reference Range Interpretation Comments eGFR (test code = eGFR) 59 [facility] HospitalTqteulnNESBKZRCIW1387-60-81 11:13:00 Test Item Value Reference Range Interpretation Comments WBC (test code = WBC) 8.0 3.7-10.4 [facility] HospitalEneotvoRGVTQRXROY4615-85-79 11:13:00 Test Item Value Reference Range Interpretation Comments RBC (test code = RBC) 2.91 4.70-6.10 [facility] HospitalVfkbkktFEMLEIIFOZ4411-83-52 11:13:00 Test Item Value Reference Range Interpretation Comments Hgb (test code = Hgb) 9.3 14.0-18.0 [facility] HospitalDwbnhrpPAKDTHBOZS8924-49-61 11:13:00 Test Item Value Reference Range Interpretation Comments Hct (test code = Hct) 27.6 42.0-54.0 [facility] HospitalXvrljnbLRGBSFACAE0268-41-86 11:13:00 Test Item Value Reference Range Interpretation Comments MCV (test code = MCV) 94.9 80.0-94.0 [facility] HospitalUwfpvpbWHTJIBTTVQ9093-77-14 11:13:00 Test Item Value Reference Range Interpretation Comments MCH (test code = MCH) 32.0 pg 27.0-31.0 [facility] HospitalDwjtwfqTQNYPNJWTX3539-39-55 11:13:00 Test Item Value Reference Range Interpretation Comments MCHC (test code = MCHC) 33.7 32.0-36.0 [facility] HospitalPkgqysaATIOZZPRWO3486-74-14 11:13:00 Test Item Value Reference Range Interpretation Comments RDW (test code = RDW) 18.7 11.5-14.5 [facility] HospitalRhakuqkJHHXDQHQND1090-28-45 11:13:00 Test Item Value Reference Range Interpretation Comments Platelet (test code = Platelet) 105 133-450 [facility] HospitalKbsfdwvLBLQATTPNP1123-42-70 11:13:00 Test Item Value Reference Range Interpretation Comments MPV (test code = MPV) 10.2 7.4-10.4 [facility] HospitalRlkstbyJACPEWMWCJ5017-15-93 11:13:00 Test Item Value Reference Range Interpretation Comments Segs (test code = Segs) 75.7 45.0-75.0 [facility] HospitalFuecnsyHPVHBWIBUO9854-32-75 11:13:00 Test Item Value Reference Range Interpretation Comments Lymphocytes (test code = Lymphocytes) 11.8 20.0-40.0 [facility] HospitalCokybmeWGOWULNUOB1457-35-70 11:13:00 Test Item Value Reference Range Interpretation Comments Monocytes (test code = Monocytes) 10.7 2.0-12.0 [facility] HospitalRllcsnlTOMFMMIART9824-62-16 11:13:00 Test Item Value Reference Range Interpretation Comments Eosinophils (test code = 1.1 See_Comment [A utomated message] The Eosinophils) system which ge nerated this result tra nsmitted reference range : <=4.0. The reference r madi was not used to int erpret this result as normal/abnormal . [facility] HospitalGvsuoddDUEBXTBOTO6736-81-29 11:13:00 Test Item Value Reference Range Interpretation Comments Basophils (test code = 0.7 See_Comment [Aut omated message] The Basophils) system which ge nerated this result tra nsmitted reference range : <=1.0. The reference r madi was not used to int erpret this result as normal/abnormal . [facility] HospitalWjckenwJDXKGKTDSG3516-60-05 11:13:00 Test Item Value Reference Range Interpretation Comments Neutrophils # (test code = Neutrophils 6.1 1.5-8.1 #) [facility] HospitalSlmuhrsFIHSELATME5985-93-79 11:13:00 Test Item Value Reference Range Interpretation Comments Lymphocytes # (test code = Lymphocytes 0.9 1.0-5.5 #) [facility] HospitalGbyuwofENBRZCWRHQ0575-28-25 11:13:00 Test Item Value Reference Range Interpretation Comments Monocytes # (test code 0.9 See_Comment [Aut omated message] The = Monocytes #) system which generated this result tra nsmitted reference range : <=0.8. The reference r madi was not used to int erpret this result as normal/abnormal . [facility]NispcduFHZQIEZHDE9129-86-53 11:13:00 Test Item Value Reference Range Interpretation Comments Eosinophils # (test code 0.1 See_Comment [A utomated message] The = Eosinophils #) system whic h generated this result tra nsmitted reference range : <=0.5. The reference r madi was not used to int erpret this result as normal/abnormal . [facility] HospitalCzykuaoELMDMHNUBA6599-39-27 11:13:00 Test Item Value Reference Range Interpretation Comments Basophils # (test code 0.1 See_Comment [Aut omated message] The = Basophils #) system which generated this result tra nsmitted reference range : <=0.2. The reference r madi was not used to int erpret this result as normal/abnormal . [facility] [id number] 03:14:00 Test Item Value Reference Range Interpretation Comments U Sodium (test code = U Sodium) 134 [facility] [id number] 03:14:00 Test Item Value Reference Range Interpretation Comments U Osmolality (test code = U Osmolality) 554 300-800 [facility] ResourcesGram Stain Fqpyla9659-11-85 19:29:00 Test Item Value Reference Range Interpretation Comments Gram Stain Report Gram Stain Performed By: (test code = Gram [facility] Stain Report) [facility]/Body Fluid/Klveim3451-13-91 19:29:00 Test Item Value Reference Range Interpretation Comments Culture: Aspirate/Body Fluid/Tissue No Growth (test code = Culture: Aspirate/Body Fluid/Tissue) [facility] ResourcesCHEM [id number] 12:13:00 Test Item Value Reference Range Interpretation Comments Osmolality (test code = Osmolality) 293 280-300 [facility] ResourcesCHEM [id number] 12:13:00 Test Item Value Reference Range Interpretation Comments Procalcitonin Lvl (test 0.12 See_Comment [Au tomated message] code = Procalcitonin Lvl) Th e system which generated this result transmitted ref erence range: <=0.10. The reference range was not used to interpr et this result as normal/abnormal . [facility] [id number] 23:39:00 Test Item Value Reference Range Interpretation Comments UA Color (test code = Yellow *NA*(03/06/19 UA Color) 5:39 PM) [facility] AND [id number] 23:39:00 Test Item Value Reference Range Interpretation Comments UA Turbidity (test code Marked *ABN*(03/06/19 = UA Turbidity) 5:39 PM) [facility] AND [id number] 23:39:00 Test Item Value Reference Range Interpretation Comments UA Spec Grav (test code = UA Spec 1.015 1 Grav) [facility] AND [id number] 23:39:00 Test Item Value Reference Range Interpretation Comments UA pH (test code = UA pH) 7.0 1 5.0-8.0 [facility] AND [id number] 23:39:00 Test Item Value Reference Range Interpretation Comments UA Protein (test code Negative (03/06/19 5:39 = UA Protein) PM) [facility] AND [id number] 23:39:00 Test Item Value Reference Range Interpretation Comments UA Glucose (test code = UA Glucose) 50mg/dl [facility] AND [id number] 23:39:00 Test Item Value Reference Range Interpretation Comments UA Ketones (test code Negative *NA*(03/06/19 = UA Ketones) 5:39 PM) [facility] AND [id number] 23:39:00 Test Item Value Reference Range Interpretation Comments UA Bili (test code = Negative *NA*(03/06/19 UA Bili) 5:39 PM) [facility] AND [id number] 23:39:00 Test Item Value Reference Range Interpretation Comments UA Blood (test code = Negative (03/06/19 5:39 UA Blood) PM) [facility] AND [id number] 23:39:00 Test Item Value Reference Range Interpretation Comments UA Urobilinogen (test code = UA no gt 0.1-1.0 Urobilinogen) [facility] AND [id number] 23:39:00 Test Item Value Reference Range Interpretation Comments UA Nitrite (test code Negative (03/06/19 5:39 = UA Nitrite) PM) [facility] AND [id number] 23:39:00 Test Item Value Reference Range Interpretation Comments UA Leuk Est (test Negative (03/06/19 5:39 code = UA Leuk Est) PM) [facility] AND [id number] 23:39:00 Test Item Value Reference Range Interpretation Comments UA Sq Epi (test code = None Seen (03/06/19 UA Sq Epi) 5:39 PM) [facility] AND [id number] 23:39:00 Test Item Value Reference Range Interpretation Comments UA Mucus (test code = UA Mucus) Few /LPF [facility] AND [id number] 23:39:00 Test Item Value Reference Range Interpretation Comments UA Amorph Rani (test code = UA Moderate /HPF Amorph Rani) [facility] ResourcesCARDIAC [id number] 23:07:00 Test Item Value Reference Range Interpretation Comments Troponin-I (test code 0.02 See_Comment [Auto mated message] The = Troponin-I) system which g enerated this result transmit guillaume reference range : <=0.40. The reference r madi was not used to interpr et this result as jd l/abnormal. [facility] [id number] 23:07:00 Test Item Value Reference Range Interpretation Comments Total CK (test code = Total CK) 92 12-191 [facility] ResourcesCHEM [id number] 23:07:00 Test Item Value Reference Range Interpretation Comments Lactic Acid Lvl (test code = Lactic 1.3 0.5-2.2 Acid Lvl) [facility]JnopvpkKJEPXAQUZBOH9890-29-49 23:07:00 Test Item Value Reference Range Interpretation Comments AGAP (test code = AGAP) 14.1 10.0-20.0 [facility]EjpmocfOEMSDCGIBHBQ4137-86-65 23:07:00 Test Item Value Reference Range Interpretation Comments Glucose Lvl (test code = Glucose Lvl) 189 70-99 [facility] HospitalYzqyesaDZXTYQTFVTDP1522-48-41 23:07:00 Test Item Value Reference Range Interpretation Comments BUN (test code = BUN) 23 7-22 [facility] CenterRiqdfrhIEMPKXBYBVZM6052-25-95 23:07:00 Test Item Value Reference Range Interpretation Comments Creatinine Lvl (test code = Creatinine 1.22 0.50-1.40 Lvl) [facility] CenterLvifshsXWYVDRLQZPGZ5633-32-80 23:07:00 Test Item Value Reference Range Interpretation Comments Potassium Lvl (test code = Potassium 5.1 3.5-5.1 Lvl) [facility] HospitalQsidtxlJRMKCFWFSHVB1981-84-64 23:07:00 Test Item Value Reference Range Interpretation Comments Chloride Lvl (test code = Chloride Lvl) 102 95-109 [facility] HospitalXnfkcpuZMYOGLKBBSGR5262-65-36 23:07:00 Test Item Value Reference Range Interpretation Comments CO2 (test code = CO2) 22 24-32 [facility] HospitalMozujioZOQYFJTMUKAI8860-23-89 23:07:00 Test Item Value Reference Range Interpretation Comments Calcium Lvl (test code = Calcium Lvl) 8.6 8.5-10.5 [facility] HospitalZqajyqmLYZRUKULFKML7426-38-52 23:07:00 Test Item Value Reference Range Interpretation Comments eGFR (test code = eGFR) 62 [facility] HospitalZkvmkwpIUFQTAPHAF0222-21-54 23:07:00 Test Item Value Reference Range Interpretation Comments INR (test code = INR) 0.94 1 0.85-1.17 [facility] HospitalWhqavhpETXJZVWAQX3149-40-25 23:07:00 Test Item Value Reference Range Interpretation Comments PT (test code = PT) 12.4 s 12.0-14.7 [facility] HospitalCkgmoalDRUOVMNSAM8091-16-67 23:07:00 Test Item Value Reference Range Interpretation Comments PTT (test code = PTT) 22.5 s 22.9-35.8 [facility] HospitalRxfrcqlJDUFAHJVJE5942-66-88 23:07:00 Test Item Value Reference Range Interpretation Comments Basophils # (test code 0.1 See_Comment [Aut omated message] The = Basophils #) system which generated this result tra nsmitted reference range : <=0.2. The reference r madi was not used to int erpret this result as normal/abnormal . [facility] HospitalTgkdrmeAMMHTCOYXY4801-77-07 21:50:00 Test Item Value Reference Range Interpretation Comments WBC (test code = WBC) 11.8 3.7-10.4 [facility] HospitalFffkfvtMFIIBVAGNE2024-07-45 21:50:00 Test Item Value Reference Range Interpretation Comments RBC (test code = RBC) 2.97 4.70-6.10 [facility] HospitalVoiwccpXHSDCBYBDH3530-67-63 21:50:00 Test Item Value Reference Range Interpretation Comments Hgb (test code = Hgb) 9.0 14.0-18.0 [facility] HospitalHcspwqmHXZQSPONDM6963-13-00 21:50:00 Test Item Value Reference Range Interpretation Comments Hct (test code = Hct) 28.0 42.0-54.0 [facility] HospitalUxlehciOHOEMSLIDB5639-91-91 21:50:00 Test Item Value Reference Range Interpretation Comments MCV (test code = MCV) 94.1 80.0-94.0 [facility] HospitalNesfesaLSKINUDWYT9735-51-46 21:50:00 Test Item Value Reference Range Interpretation Comments MCH (test code = MCH) 30.2 pg 27.0-31.0 [facility] HospitalPyqmuvzPSGFCFSLSY9679-16-70 21:50:00 Test Item Value Reference Range Interpretation Comments MCHC (test code = MCHC) 32.1 32.0-36.0 [facility] HospitalHdmegbtUJETXPRVYR8587-31-40 21:50:00 Test Item Value Reference Range Interpretation Comments RDW (test code = RDW) 16.6 11.5-14.5 [facility] HospitalAaxlvarGQLILFTDVZ7137-09-34 21:50:00 Test Item Value Reference Range Interpretation Comments Platelet (test code = Platelet) 214 133-450 [facility] HospitalCzbsqlyPSFPJIGGIT6988-69-17 21:50:00 Test Item Value Reference Range Interpretation Comments MPV (test code = MPV) 9.9 7.4-10.4 [facility] HospitalOzwqfnwNMOKHLDMCU1617-57-11 21:50:00 Test Item Value Reference Range Interpretation Comments Segs (test code = Segs) 78.3 45.0-75.0 [facility] HospitalMwfnjzvBKRUAUPOAI0643-21-77 21:50:00 Test Item Value Reference Range Interpretation Comments Lymphocytes (test code = Lymphocytes) 11.1 20.0-40.0 [facility] HospitalAriykieCRNKTYRDYN0334-37-96 21:50:00 Test Item Value Reference Range Interpretation Comments Monocytes (test code = Monocytes) 8.7 2.0-12.0 [facility] HospitalNairjpyWGIPZMHIBW5629-73-91 21:50:00 Test Item Value Reference Range Interpretation Comments Eosinophils (test code = 1.3 See_Comment [A utomated message] The Eosinophils) system which ge nerated this result tra nsmitted reference range : <=4.0. The reference r madi was not used to int erpret this result as normal/abnormal . [facility] HospitalPgdbdspKNAUOWDWMN2593-94-73 21:50:00 Test Item Value Reference Range Interpretation Comments Basophils (test code = 0.6 See_Comment [Aut omated message] The Basophils) system which ge nerated this result tra nsmitted reference range : <=1.0. The reference r madi was not used to int erpret this result as normal/abnormal . [facility] HospitalWfjoyokMVWTKLYWGI2967-26-99 21:50:00 Test Item Value Reference Range Interpretation Comments Neutrophils # (test code = Neutrophils 9.2 1.5-8.1 #) [facility] HospitalWclcvzlGIHLICKHAR2271-49-06 21:50:00 Test Item Value Reference Range Interpretation Comments Lymphocytes # (test code = Lymphocytes 1.3 1.0-5.5 #) [facility] HospitalFfktmpyRUAMTPSLFR1967-04-97 21:50:00 Test Item Value Reference Range Interpretation Comments Monocytes # (test code 1.0 See_Comment [Aut omated message] The = Monocytes #) system which generated this result tra nsmitted reference range : <=0.8. The reference r madi was not used to int erpret this result as normal/abnormal . [facility] HospitalUvffgsvFHDRMCNLOQ8821-01-71 21:50:00 Test Item Value Reference Range Interpretation Comments Eosinophils # (test code 0.2 See_Comment [A utomated message] The = Eosinophils #) system whic h generated this result tra nsmitted reference range : <=0.5. The reference r madi was not used to int erpret this result as normal/abnormal . [facility] HospitalRqowwjmQFCXYSUZNF6459-11-12 21:50:00 Test Item Value Reference Range Interpretation Comments Basophils # (test code 0.1 See_Comment [Aut omated message] The = Basophils #) system which generated this result tra nsmitted reference range : <=0.2. The reference r madi was not used to int erpret this result as normal/abnormal . [facility]2019-11-13 14:45:00 Test Item Value Reference Range Interpretation Comments Procalcitonin Lvl (test 0.25 See_Comment [Au tomated message] code = Procalcitonin Lvl) Th e system which generated this result transmitted ref erence range: <=0.10. The reference range was not used to interpr et this result as normal/abnormal . [facility] HospitalLnzddpkKBBWNMDKBDOI8234-50-28 14:45:00 Test Item Value Reference Range Interpretation Comments AGAP (test code = AGAP) 7.6 10.0-20.0 [facility] HospitalCkjaeiySPXJOUCDRDJX2251-47-23 14:45:00 Test Item Value Reference Range Interpretation Comments Glucose Lvl (test code = Glucose Lvl) 188 70-99 [facility] HospitalAjpruulMDDNYYVXEEKQ5952-02-43 14:45:00 Test Item Value Reference Range Interpretation Comments BUN (test code = BUN) 36 7-22 [facility] HospitalZjzrfxiREXQDXBTVFTM8739-85-75 14:45:00 Test Item Value Reference Range Interpretation Comments Creatinine Lvl (test code = Creatinine 1.54 0.50-1.40 Lvl) [facility] HospitalBpjejcqIXPDVVYKHFHF6856-08-13 14:45:00 Test Item Value Reference Range Interpretation Comments Sodium Lvl (test code = Sodium Lvl) 151 135-145 [facility] HospitalIwmirljZQPAOYKFPDFE3744-45-47 14:45:00 Test Item Value Reference Range Interpretation Comments Potassium Lvl (test code = Potassium 4.6 3.5-5.1 Lvl) [facility] HospitalZojdfrmSDKQBLZOQBVD5994-41-01 14:45:00 Test Item Value Reference Range Interpretation Comments Chloride Lvl (test code = Chloride Lvl) 121 95-109 [facility] HospitalGwytqivWQIFPQAKOKKH4142-87-29 14:45:00 Test Item Value Reference Range Interpretation Comments CO2 (test code = CO2) 27 24-32 [facility] HospitalHrykapgNYRBBMAEJXDG1202-27-19 14:45:00 Test Item Value Reference Range Interpretation Comments Calcium Lvl (test code = Calcium Lvl) 8.6 8.5-10.5 [facility] HospitalCbmpqdhXVZAMYXUKKLW1580-51-68 14:45:00 Test Item Value Reference Range Interpretation Comments eGFR (test code = eGFR) 47 [facility] HospitalKywlojrRGVUKATZFI5162-84-53 14:45:00 Test Item Value Reference Range Interpretation Comments WBC (test code = WBC) 9.8 3.7-10.4 [facility] HospitalDiubqbaAWKZWHUPYE0439-84-00 14:45:00 Test Item Value Reference Range Interpretation Comments RBC (test code = RBC) 2.94 4.70-6.10 [facility] HospitalXedtnujLLDGCFXUEI7691-81-18 14:45:00 Test Item Value Reference Range Interpretation Comments Hgb (test code = Hgb) 9.0 14.0-18.0 [facility] HospitalWgqdhabABEDMJQCVA0003-34-33 14:45:00 Test Item Value Reference Range Interpretation Comments Hct (test code = Hct) 27.6 42.0-54.0 [facility] HospitalPcrfeuiVXYBAKLAUR0633-21-33 14:45:00 Test Item Value Reference Range Interpretation Comments MCV (test code = MCV) 93.9 80.0-94.0 [facility] HospitalDnqcakcYXWBRWDKLD5702-86-54 14:45:00 Test Item Value Reference Range Interpretation Comments MCH (test code = MCH) 30.6 pg 27.0-31.0 [facility] HospitalWgbqrbiUNQHKLUAEU6185-80-25 14:45:00 Test Item Value Reference Range Interpretation Comments MCHC (test code = MCHC) 32.6 32.0-36.0 [facility] HospitalGlnoyyiKNZZOPHMLG1567-40-70 14:45:00 Test Item Value Reference Range Interpretation Comments RDW (test code = RDW) 16.7 11.5-14.5 [facility] HospitalVexhxghSXEESZHXZI2063-55-83 14:45:00 Test Item Value Reference Range Interpretation Comments Platelet (test code = Platelet) 77 133-450 [facility] HospitalVybozepZDUGXWLNYH9735-30-18 14:45:00 Test Item Value Reference Range Interpretation Comments MPV (test code = MPV) 9.8 7.4-10.4 [facility] HospitalTzbcgrrYRJRTMGYUP1393-79-60 14:45:00 Test Item Value Reference Range Interpretation Comments RBC Morph (test code = Normal (02/28/19 8:45 RBC Morph) AM) [facility] HospitalBfpaosmQBIXDBXIXZ2300-81-97 14:45:00 Test Item Value Reference Range Interpretation Comments Plt Morph (test code = Normal (02/28/19 8:45 Plt Morph) AM) [facility] HospitalHaoqskxRGHEEVDBCD1359-73-79 14:45:00 Test Item Value Reference Range Interpretation Comments Segs (test code = Segs) 79.4 45.0-75.0 [facility] HospitalTdwebogUMRYNAXRVD7175-61-68 14:45:00 Test Item Value Reference Range Interpretation Comments Lymphocytes (test code = Lymphocytes) 12.1 20.0-40.0 [facility] HospitalAophjxgROXDYGEUEY1914-61-31 14:45:00 Test Item Value Reference Range Interpretation Comments Monocytes (test code = Monocytes) 7.0 2.0-12.0 [facility] HospitalAvlvwdvWEOCRBJAJZ5128-89-74 14:45:00 Test Item Value Reference Range Interpretation Comments Eosinophils (test code = 1.0 See_Comment [A utomated message] The Eosinophils) system which ge nerated this result tra nsmitted reference range : <=4.0. The reference r madi was not used to int erpret this result as normal/abnormal . [facility] HospitalFhutikkKELKHFTEKM0013-29-30 14:45:00 Test Item Value Reference Range Interpretation Comments Basophils (test code = 0.5 See_Comment [Aut omated message] The Basophils) system which ge nerated this result tra nsmitted reference range : <=1.0. The reference r madi was not used to int erpret this result as normal/abnormal . [facility] HospitalQpaxmlkKVSISBFVMV5821-62-06 14:45:00 Test Item Value Reference Range Interpretation Comments Neutrophils # (test code = Neutrophils 7.8 1.5-8.1 #) [facility] HospitalQunscvzLSCCRWUTRA5012-49-94 14:45:00 Test Item Value Reference Range Interpretation Comments Lymphocytes # (test code = Lymphocytes 1.2 1.0-5.5 #) [facility] HospitalAdnojyrJBBLSDZTWX0770-11-79 14:45:00 Test Item Value Reference Range Interpretation Comments Monocytes # (test code 0.7 See_Comment [Aut omated message] The = Monocytes #) system which generated this result tra nsmitted reference range : <=0.8. The reference r madi was not used to int erpret this result as normal/abnormal . [facility] HospitalLdhxbonDRBNEQLNGS8101-02-32 14:45:00 Test Item Value Reference Range Interpretation Comments Eosinophils # (test code 0.1 See_Comment [A utomated message] The = Eosinophils #) system whic h generated this result tra nsmitted reference range : <=0.5. The reference r madi was not used to int erpret this result as normal/abnormal . [facility] HospitalBwouxlkTYUJELQXUP1725-12-51 14:45:00 Test Item Value Reference Range Interpretation Comments Basophils # (test code 0.1 See_Comment [Aut omated message] The = Basophils #) system which generated this result tra nsmitted reference range : <=0.2. The reference r madi was not used to int erpret this result as normal/abnormal . [facility]2019-11-13 10:00:00 Test Item Value Reference Range Interpretation Comments Procalcitonin Lvl (test 0.29 See_Comment [Au tomated message] code = Procalcitonin Lvl) Th e system which generated this result transmitted ref erence range: <=0.10. The reference range was not used to interpr et this result as normal/abnormal . [facility]2019-11-12 06:32:00 Test Item Value Reference Range Interpretation Comments Procalcitonin Lvl (test 0.41 See_Comment [Au tomated message] code = Procalcitonin Lvl) Th e system which generated this result transmitted ref erence range: <=0.10. The reference range was not used to interpr et this result as normal/abnormal . [facility]2019-11-11 10:27:00 Test Item Value Reference Range Interpretation Comments Glucose Lvl (test code = Glucose Lvl) 151 70-99 [facility]2019-11-11 10:27:00 Test Item Value Reference Range Interpretation Comments BUN (test code = BUN) 37 7-22 [facility]2019-11-11 10:27:00 Test Item Value Reference Range Interpretation Comments Creatinine Lvl (test code = Creatinine 1.66 0.50-1.40 Lvl) [facility]2019-11-11 10:27:00 Test Item Value Reference Range Interpretation Comments Sodium Lvl (test code = Sodium Lvl) 154 135-145 [facility]2019-11-11 10:27:00 Test Item Value Reference Range Interpretation Comments Potassium Lvl (test code = Potassium 4.9 3.5-5.1 Lvl) [facility]2019-11-11 10:27:00 Test Item Value Reference Range Interpretation Comments Chloride Lvl (test code = Chloride Lvl) 125 95-109 [facility]2019-11-11 10:27:00 Test Item Value Reference Range Interpretation Comments CO2 (test code = CO2) 26 24-32 [facility]2019-11-11 10:27:00 Test Item Value Reference Range Interpretation Comments Calcium Lvl (test code = Calcium Lvl) 8.3 8.5-10.5 [facility]2019-11-11 10:27:00 Test Item Value Reference Range Interpretation Comments eGFR (test code = eGFR) 42 [facility] GWKPF9293-81-96 10:27:00 Test Item Value Reference Range Interpretation Comments AGAP (test code = AGAP) 7.9 10.0-20.0 [facility] HospitalFyqvcknLFORXGOCLY9204-02-16 10:27:00 Test Item Value Reference Range Interpretation Comments WBC (test code = WBC) 11.7 3.7-10.4 [facility] HospitalFdwgqiyMZKCPBJLFS8843-56-64 10:27:00 Test Item Value Reference Range Interpretation Comments RBC (test code = RBC) 2.73 4.70-6.10 [facility] HospitalZdahmnnNYDZOFKZUC6347-45-71 10:27:00 Test Item Value Reference Range Interpretation Comments Hgb (test code = Hgb) 7.9 14.0-18.0 [facility] HospitalDvtvkkiODTMRYXADE2792-59-74 10:27:00 Test Item Value Reference Range Interpretation Comments Hct (test code = Hct) 25.7 42.0-54.0 [facility] HospitalBnfougaVIFBTUVNZZ8493-30-81 10:27:00 Test Item Value Reference Range Interpretation Comments MCV (test code = MCV) 94.1 80.0-94.0 [facility] HospitalBqprjhrZSRWXWJOOO1472-73-95 10:27:00 Test Item Value Reference Range Interpretation Comments MCH (test code = MCH) 29.1 pg 27.0-31.0 [facility] HospitalYzvumspRLSKSSHUTD4808-68-19 10:27:00 Test Item Value Reference Range Interpretation Comments MCHC (test code = MCHC) 30.9 32.0-36.0 [facility] HospitalVfbmkisKDBLFSNTFC2426-73-14 10:27:00 Test Item Value Reference Range Interpretation Comments RDW (test code = RDW) 16.8 11.5-14.5 [facility] HospitalPshnjraFTPXZKPTZK1561-80-93 10:27:00 Test Item Value Reference Range Interpretation Comments Platelet (test code = Platelet) 148 133-450 [facility] HospitalHzzmuyxMSRTENZMDR3174-36-64 10:27:00 Test Item Value Reference Range Interpretation Comments MPV (test code = MPV) 10.5 7.4-10.4 [facility] HospitalFwbyhorRRPCTDJNAK0009-52-06 10:27:00 Test Item Value Reference Range Interpretation Comments Segs (test code = Segs) 81.9 45.0-75.0 [facility] HospitalWnbajuoKJSSFRAGDZ2685-06-32 10:27:00 Test Item Value Reference Range Interpretation Comments Lymphocytes (test code = Lymphocytes) 8.6 20.0-40.0 [facility] HospitalLmavitxKNTPVQFGZF8964-89-60 10:27:00 Test Item Value Reference Range Interpretation Comments Monocytes (test code = Monocytes) 7.9 2.0-12.0 [facility] HospitalSbuiietXESAIROLJZ3239-69-89 10:27:00 Test Item Value Reference Range Interpretation Comments Eosinophils (test code = 1.2 See_Comment [A utomated message] The Eosinophils) system which ge nerated this result tra nsmitted reference range : <=4.0. The reference r madi was not used to int erpret this result as normal/abnormal . [facility] HospitalDhwkgclOCXZWCRBOG6011-23-94 10:27:00 Test Item Value Reference Range Interpretation Comments Basophils (test code = 0.4 See_Comment [Aut omated message] The Basophils) system which ge nerated this result tra nsmitted reference range : <=1.0. The reference r madi was not used to int erpret this result as normal/abnormal . [facility] HospitalUnoqnzcRFHFAJLECJ1172-23-40 10:27:00 Test Item Value Reference Range Interpretation Comments Neutrophils # (test code = Neutrophils 9.6 1.5-8.1 #) [facility] HospitalRuiaokwAKCRIWXTRO9787-03-66 10:27:00 Test Item Value Reference Range Interpretation Comments Lymphocytes # (test code = Lymphocytes 1.0 1.0-5.5 #) [facility] HospitalFqermckDPQWHAAKQD3458-03-50 10:27:00 Test Item Value Reference Range Interpretation Comments Monocytes # (test code 0.9 See_Comment [Aut omated message] The = Monocytes #) system which generated this result tra nsmitted reference range : <=0.8. The reference r madi was not used to int erpret this result as normal/abnormal . [facility] HospitalNxmfgulYFHUMVMCMJ5249-55-22 10:27:00 Test Item Value Reference Range Interpretation Comments Eosinophils # (test code 0.1 See_Comment [A utomated message] The = Eosinophils #) system [facility] h generated this result tra nsmitted reference range : <=0.5. The reference r madi was not used to int erpret this result as normal/abnormal . [facility] N-1-1 [id number] 11:00:00 Test Item Value Reference Range Interpretation Comments Glucose Lvl (test code = Glucose Lvl) 179 70-99 [facility]2019-11-10 11:00:00 Test Item Value Reference Range Interpretation Comments BUN (test code = BUN) 39 7-22 [facility] [id number] 11:00:00 Test Item Value Reference Range Interpretation Comments Creatinine Lvl (test code = Creatinine 1.79 0.50-1.40 Lvl) [facility] [id number] 11:00:00 Test Item Value Reference Range Interpretation Comments Sodium Lvl (test code = Sodium Lvl) 155 135-145 [facility] [id number] 11:00:00 Test Item Value Reference Range Interpretation Comments Potassium Lvl (test code = Potassium 4.1 3.5-5.1 Lvl) [facility] [id number] 11:00:00 Test Item Value Reference Range Interpretation Comments Chloride Lvl (test code = Chloride Lvl) 125 95-109 [facility] [id number] 11:00:00 Test Item Value Reference Range Interpretation Comments CO2 (test code = CO2) 26 24-32 [facility] [id number] 11:00:00 Test Item Value Reference Range Interpretation Comments Calcium Lvl (test code = Calcium Lvl) 7.9 8.5-10.5 [facility] [id number] 11:00:00 Test Item Value Reference Range Interpretation Comments eGFR (test code = eGFR) 39 [facility] [id number] 11:00:00 Test Item Value Reference Range Interpretation Comments AGAP (test code = AGAP) 8.1 10.0-20.0 [facility] [employer] [id number] 10:26:00 Test Item Value Reference Range Interpretation Comments ABO/Rh (test code = ABO/Rh) O POS [facility] [employer] [id number] 10:26:00 Test Item Value Reference Range Interpretation Comments Antibody Scrn (test Negative (02/23/19 4:26 code = Antibody Scrn) AM) [facility] N-1-1 [id number] 10:26:00 Test Item Value Reference Range Interpretation Comments Magnesium Lvl (test code = Magnesium 2.4 1.8-2.4 Lvl) [facility]2019-11-08 10:26:00 Test Item Value Reference Range Interpretation Comments Phosphorus (test code = Phosphorus) 2.6 2.5-4.5 [facility]2019-11-08 10:26:00 Test Item Value Reference Range Interpretation Comments Total Protein (test code = Total 5.2 6.4-8.4 Protein) [facility]2019-11-08 10:26:00 Test Item Value Reference Range Interpretation Comments Albumin Lvl (test code = Albumin Lvl) 2.4 3.5-5.0 [facility]2019-11-08 10:26:00 Test Item Value Reference Range Interpretation Comments ALT (test code = ALT) 23 See_Comment [Auto mated message] The system which ge nerated this result transmit guillaume reference range : <=65. The reference range was not used to interpr et this result as jd l/abnormal. [facility]2019-11-08 10:26:00 Test Item Value Reference Range Interpretation Comments AST (test code = AST) 41 See_Comment [Auto mated message] The system which ge nerated this result transmit guillaume reference range : <=37. The reference range was not used to interpr et this result as jd l/abnormal. [facility]2019-11-08 10:26:00 Test Item Value Reference Range Interpretation Comments Alk Phos (test code = Alk Phos) 53 39-136 [facility]2019-11-08 10:26:00 Test Item Value Reference Range Interpretation Comments Bili Total (test code = Bili Total) 2.1 0.2-1.3 [facility]2019-11-08 10:26:00 Test Item Value Reference Range Interpretation Comments B/C Ratio (test code = B/C Ratio) 20 1 6-25 [facility]2019-11-08 10:26:00 Test Item Value Reference Range Interpretation Comments Globulin (test code = Globulin) 2.8 2.7-4.2 [facility]2019-11-08 10:26:00 Test Item Value Reference Range Interpretation Comments A/G Ratio (test code = A/G Ratio) 0.9 1 0.7-1.6 [facility]TUXQ2902-03-86 10:26:00 Test Item Value Reference Range Interpretation Comments Trig (test code = Trig) 175 [facility]2019-11-07 07:32:00 Test Item Value Reference Range Interpretation Comments Magnesium Lvl (test code = Magnesium 2.6 1.8-2.4 Lvl) [facility]2019-11-07 07:32:00 Test Item Value Reference Range Interpretation Comments Phosphorus (test code = Phosphorus) 2.7 2.5-4.5 [facility]QsythjuFMJCFN7161-97-13 07:32:00 Test Item Value Reference Range Interpretation Comments Trig (test code = Trig) 147 [facility]2019-11-07 07:32:00 Test Item Value Reference Range Interpretation Comments Ca Ion WB (test code = Ca Ion WB) 1.22 1.05-1.25 [facility]2019-11-07 07:32:00 Test Item Value Reference Range Interpretation Comments Ca Norm WB (test code = Ca Norm WB) 1.24 1.05-1.25 [facility] HospitalKcegytqCTQVWUVZOS6314-78-21 12:43:00 Test Item Value Reference Range Interpretation Comments ACT (TEG) Rapid (test code = ACT (TEG) 97 s 86-118 Rapid) [facility] HospitalNltnghzFZKLQVILYW2185-66-08 12:43:00 Test Item Value Reference Range Interpretation Comments Split Point Rapid (test code = Split 0.3 min Point Rapid) [facility] HospitalPxvyacwNWUFOPTSRI2504-27-06 12:43:00 Test Item Value Reference Range Interpretation Comments R-time Rapid (test code = R-time 0.5 min 0.4-0.7 Rapid) [facility] HospitalJqjlmpkPECJVXPNCX1337-34-66 12:43:00 Test Item Value Reference Range Interpretation Comments K-time Rapid (test code = K-time 1.0 min 0.6-2.3 Rapid) [facility] HospitalOtyvuxsWGCLFRVSQY2781-58-20 12:43:00 Test Item Value Reference Range Interpretation Comments Angle Rapid (test code = Angle 77 degrees 64-80 Rapid) [facility] HospitalOmmbavjLLCNCANQVB0627-44-95 12:43:00 Test Item Value Reference Range Interpretation Comments Max Amplitude Rapid (test code = Max 68 mm 52-71 Amplitude Rapid) [facility] HospitalTemfrwkVYPNAUXZQY4772-77-02 12:43:00 Test Item Value Reference Range Interpretation Comments G-value Rapid (test code = G-value 10.7 5.0-11.6 Rapid) [facility] HospitalWjqbnqgKMSYMPPIMI2133-51-56 12:43:00 Test Item Value Reference Range Interpretation Comments Estimated % Lysis Rapid 0.0 See_Comment [Au tomated message] The (test code = Estimated syste m which generated % Lysis Rapid) this result t ransmitted reference range : <=7.5. The reference r madi was not used to int erpret this result as normal/abnormal . [facility] ResourcesUxgwdvyEVGTBVNKZF9906-02-95 12:20:00 Test Item Value Reference Range Interpretation Comments PTT (test code = PTT) 27.4 s 22.9-35.8 [facility] HospitalYpiytuaWWFQLISZMP1925-07-65 12:20:00 Test Item Value Reference Range Interpretation Comments PT (test code = PT) 15.1 s 12.0-14.7 [facility] ResourcesMhnvykgODCUWIMTIP8098-94-38 12:20:00 Test Item Value Reference Range Interpretation Comments INR (test code = INR) 1.21 1 0.85-1.17 [facility] [id number] 10:44:00 Test Item Value Reference Range Interpretation Comments Phosphorus (test code = Phosphorus) 2.6 2.5-4.5 [facility] [id number] 10:44:00 Test Item Value Reference Range Interpretation Comments Magnesium Lvl (test code = Magnesium 2.7 1.8-2.4 Lvl) [facility] ResourcesVascular ClosureHAMPTON REGIONAL MEDICAL [id number] 10:44:00 Test Item Value Reference Range Interpretation Comments Ca Ion WB (test code = Ca Ion WB) 1.19 1.05-1.25 [facility]SharesPostHAMPTON [facility] MEDICAL CENTERGZIVFXZ0263-01-55 10:44:00 Test Item Value Reference Range Interpretation Comments Ca Norm WB (test code = Ca Norm WB) 1.21 1.05-1.25 [facility] [employer] [id number] 10:03:00 Test Item Value Reference Range Interpretation Comments Antibody Scrn (test Negative (02/19/19 4:03 code = Antibody Scrn) AM) [facility] [employer] [id number] 10:03:00 Test Item Value Reference Range Interpretation Comments ABO/Rh (test code = ABO/Rh) O POS [facility]annPARATHYRO[facility] [id number] 09:06:00 Test Item Value Reference Range Interpretation Comments Ca Ion WB (test code = Ca Ion WB) 1.23 1.05-1.25 [facility]annPARATHYROID [id number] 09:06:00 Test Item Value Reference Range Interpretation Comments Ca Norm WB (test code = Ca Norm WB) 1.27 1.05-1.25 [facility] ResourcesBLOOD BANK [id number] 10:00:00 Test Item Value Reference Range Interpretation Comments Platelet product (test Product available code = Platelet (02/17/19 5:00 AM) product) [facility] ResourcesCARDIAC [id number] 08:12:00 Test Item Value Reference Range Interpretation Comments Troponin-I (test code 0.04 See_Comment [Auto mated message] The = Troponin-I) system which g enerated this result transmit guillaume reference range : <=0.40. The reference r madi was not used to interpr et this result as jd l/abnormal. [facility] ResourcesCARDIAC [id number] 08:12:00 Test Item Value Reference Range Interpretation Comments Total CK (test code = Total CK) 1802 12-191 [facility] ResourcesCARCropUpAC [id number] 08:12:00 Test Item Value Reference Range Interpretation Comments CK MB (test code = CK MB) 4.7 0.5-3.6 [facility] ResourcesCARDIAC [id number] 08:12:00 Test Item Value Reference Range Interpretation Comments CK MB Index (test 0.3 1 See_Comment [Automate d message] The code = CK MB Index) system w [facility] generated this result transmit guillaume reference range : <=2.5. The reference range was not used to interpr et this result as jd l/abnormal. [facility] [id number] 08:12:00 Test Item Value Reference Range Interpretation Comments U Sodium (test code = U Sodium) 27 [facility] ResourcesURINE [id number] 08:12:00 Test Item Value Reference Range Interpretation Comments U Creatinine (test code = U 133.00 Creatinine) [facility] PasoHcdenzvPJZNEZCGIV8439-31-19 07:56:00 Test Item Value Reference Range Interpretation Comments TEG Interp (test Thrombelastograph results code = TEG show shortened value of R. 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 CPT:27943 [facility] HospitalEnucymyNSVLLFJCKI8908-73-89 07:56:00 Test Item Value Reference Range Interpretation Comments R-time (test code = R-time) 4.3 min 5.0-10.0 [facility] HospitalCsqnxfgPNUSKDTYDQ4738-86-37 07:56:00 Test Item Value Reference Range Interpretation Comments K-time (test code = K-time) 2.2 min 1.0-3.0 [facility] HospitalGbdmltfFUSESZVWFP7332-46-90 07:56:00 Test Item Value Reference Range Interpretation Comments Angle (test code = Angle) 61.0 degrees 53.0-72.0 [facility] HospitalPxltxzuSIEBDQXLPQ9441-93-68 07:56:00 Test Item Value Reference Range Interpretation Comments Max Amp (test code = Max Amp) 57.1 mm 50.0-70.0 [facility] HospitalRqbwoyiEQWLALELFF0491-08-34 07:56:00 Test Item Value Reference Range Interpretation Comments G-value (test code = G-value) 6.7 4.5-11.0 [facility] HospitalEamknpdBXONEKCXOJ8244-70-00 07:56:00 Test Item Value Reference Range Interpretation Comments Ly30 (test code = 0.5 See_Comment [Automate d message] The Ly30) system which ge nerated this result transmit guillaume reference range : <=7.5. The reference range was not used to interpr et this result as jd l/abnormal. [facility] HospitalYvksrlnUCPIGWNXOS5217-87-74 07:56:00 Test Item Value Reference Range Interpretation Comments Coag Index (test code 0.2 1 See_Comment [Auto mated message] The = Coag Index) system which g enerated this result transmit guillaume reference range : <=3.0. The reference range was not used to interpr et this result as jd l/abnormal. [facility] HospitalKfhjorwHRPIZMMMAV3274-70-09 07:56:00 Test Item Value Reference Range Interpretation Comments TEG Data (test code = See Note (02/17/19 2:56 TEG Data) AM) [facility] HospitalMmnflkkUXKBQQAGGZ7878-88-18 07:56:00 Test Item Value Reference Range Interpretation Comments PTT (test code = PTT) 28.8 s 22.9-35.8 [facility] HospitalXfotqanOOJIBAOQPN3082-57-54 07:56:00 Test Item Value Reference Range Interpretation Comments PT (test code = PT) 15.4 s 12.0-14.7 [facility] HospitalDyfztebXBTNHVSKBK1877-05-65 07:56:00 Test Item Value Reference Range Interpretation Comments INR (test code = INR) 1.24 1 0.85-1.17 [facility] HospitalBlzrzhiCIGPCMDGJU4877-94-29 11:32:00 Test Item Value Reference Range Interpretation Comments PTT (test code = PTT) 30.8 s 22.9-35.8 [facility] HospitalIxjdnitORZHMANGMV9220-19-34 11:32:00 Test Item Value Reference Range Interpretation Comments PT (test code = PT) 16.0 s 12.0-14.7 [facility] HospitalHakqvjwHFNPTNKOWJ8536-26-28 11:32:00 Test Item Value Reference Range Interpretation Comments INR (test code = INR) 1.31 1 0.85-1.17 [facility] HospitalFjlygkcAPPKKVJVGN9970-09-98 11:32:00 Test Item Value Reference Range Interpretation Comments R-time (test code = R-time) 3.7 min 5.0-10.0 [facility] HospitalXottzuzBXIGKMSXBH8276-71-84 11:32:00 Test Item Value Reference Range Interpretation Comments K-time (test code = K-time) 1.5 min 1.0-3.0 [facility] HospitalGetvgkvIGBLZVDXYY7125-62-93 11:32:00 Test Item Value Reference Range Interpretation Comments Angle (test code = Angle) 67.7 degrees 53.0-72.0 [facility] HospitalKmdvlrsINVWXJNUHY6227-32-64 11:32:00 Test Item Value Reference Range Interpretation Comments Max Amp (test code = Max Amp) 62.5 mm 50.0-70.0 [facility] HospitalMwrnecjJIBUNQSGJW0216-96-75 11:32:00 Test Item Value Reference Range Interpretation Comments G-value (test code = G-value) 8.3 4.5-11.0 [facility] HospitalPfldefvHQXTGYBSWC0089-97-58 11:32:00 Test Item Value Reference Range Interpretation Comments Ly30 (test code = 0.0 See_Comment [Automate d message] The Ly30) system which ge nerated this result transmit guillaume reference range : <=7.5. The reference range was not used to interpr et this result as jd l/abnormal. [facility] HospitalLttypkiKUUIOQRJIX8913-10-28 11:32:00 Test Item Value Reference Range Interpretation Comments Coag Index (test code 2.0 1 See_Comment [Auto mated message] The = Coag Index) system which g enerated this result transmit guillaume reference range : <=3.0. The reference range was not used to interpr et this result as jd l/abnormal. [facility] ResourcesYncneelKBTQIDDMRG7991-97-96 11:32:00 Test Item Value Reference Range Interpretation Comments TEG Data (test code = See Note (02/16/19 6:32 TEG Data) AM) [facility] HospitalNswocwdCCPZLPSLPH9543-80-39 11:32:00 Test Item Value Reference Range Interpretation Comments TEG Interp (test Thrombelastograph results code = TEG show shortened value of R. 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 CPT:31749 [facility] ResourcesCulture: [id number] 15:35:00 Test Item Value Reference Range Interpretation Comments Culture: Urine (test code = No Growth Culture: Urine) [facility] ResourcesCARDIAC [id number] 15:18:00 Test Item Value Reference Range Interpretation Comments Troponin-I (test code 0.06 See_Comment [Auto mated message] The = Troponin-I) system which g enerated this result transmit guillaume reference range : <=0.40. The reference r madi was not used to interpr et this result as jd l/abnormal. [facility] ResourcesDRUG [id number] 14:46:00 Test Item Value Reference Range Interpretation Comments U Amph Scr (test code Negative *NA*(02/15/19 = U Amph Scr) 9:46 AM) [facility] [id number] 14:46:00 Test Item Value Reference Range Interpretation Comments U Roya Scr (test code Negative *NA*(02/15/19 = U Roya Scr) 9:46 AM) [facility] [id number] 14:46:00 Test Item Value Reference Range Interpretation Comments U Benzodiaz Scr (test Positive code = U Benzodiaz Scr) *ABN*(02/15/19 9:46 AM) [facility] ResourcesDR[facility] [id number] 14:46:00 Test Item Value Reference Range Interpretation Comments U Cocaine Scr (test Negative *NA*(02/15/19 code = U Cocaine Scr) 9:46 AM) [facility] [id number] 14:46:00 Test Item Value Reference Range Interpretation Comments U Cannab Scr (test Negative *NA*(02/15/19 code = U Cannab Scr) 9:46 AM) [facility] [id number] 14:46:00 Test Item Value Reference Range Interpretation Comments U Opiate Scr (test Negative *NA*(02/15/19 code = U Opiate Scr) 9:46 AM) [facility] [id number] 14:46:00 Test Item Value Reference Range Interpretation Comments U Phencyclidine Scr (test Negative code = U Phencyclidine *NA*(02/15/19 9:46 Scr) AM) [facility] [id number] 14:46:00 Test Item Value Reference Range Interpretation Comments UDS Note (test code = See Note (02/15/19 9:46 UDS Note) AM) [facility] [id number] 14:46:00 Test Item Value Reference Range Interpretation Comments UA Color (test code = Marlena *ABN*(02/15/19 UA Color) 9:46 AM) [facility] [id number] 14:46:00 Test Item Value Reference Range Interpretation Comments UA Turbidity (test code Marked *ABN*(02/15/19 = UA Turbidity) 9:46 AM) [facility] [id number] 14:46:00 Test Item Value Reference Range Interpretation Comments UA Spec Grav (test code = UA Spec 1.047 1 Grav) [facility] [id number] 14:46:00 Test Item Value Reference Range Interpretation Comments UA pH (test code = UA pH) 5.0 1 5.0-8.0 [facility] [id number] 14:46:00 Test Item Value Reference Range Interpretation Comments UA Protein (test code = UA Protein) 30 mg/dL [facility] [id number] 14:46:00 Test Item Value Reference Range Interpretation Comments UA Glucose (test code = UA Negative mg/dL Glucose) [facility] [id number] 14:46:00 Test Item Value Reference Range Interpretation Comments UA Ketones (test code = UA Negative mg/dL Ketones) [facility] AND [id number] 14:46:00 Test Item Value Reference Range Interpretation Comments UA Bili (test code = Negative *NA*(02/15/19 UA Bili) 9:46 AM) [facility] AND [id number] 14:46:00 Test Item Value Reference Range Interpretation Comments UA Blood (test code = Moderate *ABN*(02/15/19 UA Blood) 9:46 AM) [facility] AND [id number] 14:46:00 Test Item Value Reference Range Interpretation Comments UA Urobilinogen (test code = UA no gt 0.1-1.0 Urobilinogen) [facility] AND [id number] 14:46:00 Test Item Value Reference Range Interpretation Comments UA Nitrite (test code Negative (02/15/19 9:46 = UA Nitrite) AM) [facility] AND [id number] 14:46:00 Test Item Value Reference Range Interpretation Comments UA Leuk Est (test Moderate *ABN*(02/15/19 code = UA Leuk Est) 9:46 AM) [facility] AND [id number] 14:46:00 Test Item Value Reference Range Interpretation Comments UA Sq Epi (test code = UA Sq Occasional /LPF Epi) [facility] AND [id number] 14:46:00 Test Item Value Reference Range Interpretation Comments UA WBC (test code = 57 See_Comment [Automa guillaume message] The UA WBC) system which ge nerated this result transmit guillaume reference range : <=5. The reference range was not used to interpr et this result as jd l/abnormal. [facility] AND [id number] 14:46:00 Test Item Value Reference Range Interpretation Comments UA RBC (test code = 40 See_Comment [Automa guillaume message] The UA RBC) system which ge nerated this result transmit guillaume reference range : <=2. The reference range was not used to interpr et this result as jd l/abnormal. [facility] AND [id number] 14:46:00 Test Item Value Reference Range Interpretation Comments UA Bacteria (test code = UA Few /HPF Bacteria) [facility] AND [id number] 14:46:00 Test Item Value Reference Range Interpretation Comments UA Mucus (test code = UA Mucus) Few /LPF [facility] AND [id number] 14:46:00 Test Item Value Reference Range Interpretation Comments UA Amorph Rani (test code = Occasional /HPF UA Amorph Rani) [facility] AND [id number] 14:46:00 Test Item Value Reference Range Interpretation Comments UA Hyal Cast (test 5 See_Comment [Automat ed message] The code = UA Hyal Cast) system which generated this result transmit guillaume reference range : <=2. The reference range was not used to interpr et this result as jd l/abnormal. [facility] ResourcesWaveSyndicateOOD BANK [id number] 12:47:00 Test Item Value Reference Range Interpretation Comments Platelet product (test Product available code = Platelet (02/15/19 7:47 AM) product) [facility] ResourcesTilth BeautyAC [id number] 11:13:00 Test Item Value Reference Range Interpretation Comments CK MB (test code = CK MB) 15.5 0.5-3.6 [facility] ResourcesCARCropUpAC [id number] 11:13:00 Test Item Value Reference Range Interpretation Comments CK MB Index (test 0.9 1 See_Comment [Automate d message] The code = CK MB Index) system w [facility] generated this result transmit guillaume reference range : <=2.5. The reference range was not used to interpr et this result as jd l/abnormal. [facility] ResourcesCARCropUpAC [id number] 11:13:00 Test Item Value Reference Range Interpretation Comments Total CK (test code = Total CK) 1785 12-191 [facility] ResourcesTilth BeautyAC [id number] 11:13:00 Test Item Value Reference Range Interpretation Comments Troponin-I (test code 0.07 See_Comment [Auto mated message] The = Troponin-I) system which g enerated this result transmit guillaume reference range : <=0.40. The reference r madi was not used to interpr et this result as jd l/abnormal. [facility] ResourcesBACTERIAL - [id number] 03:45:00 Test Item Value Reference Range Interpretation Comments MRSA by PCR (test Negative (02/14/19 10:45 code = MRSA by PCR) PM) [facility] [employer]2019-10-31 03:45:00 Test Item Value Reference Range Interpretation Comments Total CK (test code = Total CK) 1761 12-191 [facility] [id number] 03:45:00 Test Item Value Reference Range Interpretation Comments CK MB (test code = CK MB) 19.5 0.5-3.6 [facility] PasoParagon Print & Packaging GroupAC [id number] 03:45:00 Test Item Value Reference Range Interpretation Comments CK MB Index (test 1.1 1 See_Comment [Automate d message] The code = CK MB Index) system w MobileRQ generated this result transmit guillaume reference range : <=2.5. The reference range was not used to interpr et this result as jd l/abnormal. [facility] CM Sistemi2019-10-31 03:45:00 Test Item Value Reference Range Interpretation Comments Lactic Acid Lvl (test code = Lactic 1.8 0.5-2.2 Acid Lvl) [facility] CM Sistemi2019-10-31 03:45:00 Test Item Value Reference Range Interpretation Comments Total Protein (test code = Total 5.3 6.4-8.4 Protein) [facility] CM Sistemi2019-10-31 03:45:00 Test Item Value Reference Range Interpretation Comments Albumin Lvl (test code = Albumin Lvl) 3.0 3.5-5.0 [facility] CM Sistemi2019-10-31 03:45:00 Test Item Value Reference Range Interpretation Comments ALT (test code = ALT) 25 See_Comment [Auto mated message] The system which ge nerated this result transmit guillaume reference range : <=65. The reference range was not used to interpr et this result as jd l/abnormal. [facility] CM Sistemi2019-10-31 03:45:00 Test Item Value Reference Range Interpretation Comments AST (test code = AST) 54 See_Comment [Auto mated message] The system which ge nerated this result transmit guillaume reference range : <=37. The reference range was not used to interpr et this result as jd l/abnormal. [facility] CM Sistemi2019-10-31 03:45:00 Test Item Value Reference Range Interpretation Comments Alk Phos (test code = Alk Phos) 55 39-136 [facility]2019-10-31 03:45:00 Test Item Value Reference Range Interpretation Comments Bili Total (test code = Bili Total) 1.1 0.2-1.3 [place] [id number] 03:45:00 Test Item Value Reference Range Interpretation Comments B/C Ratio (test code = B/C Ratio) 18 1 6-25 [place] 152939-10-31 03:45:00 Test Item Value Reference Range Interpretation Comments Globulin (test code = Globulin) 2.3 2.7-4.2 [place] 152939-10-31 03:45:00 Test Item Value Reference Range Interpretation Comments A/G Ratio (test code = A/G Ratio) 1.3 1 0.7-1.6 [place] 064469-10-31 03:45:00 Test Item Value Reference Range Interpretation Comments TEG Interp (test Thrombelastograph results code = TEG show shortened value of R. 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 CPT:59215 [facility] H[id number] 03:45:00 Test Item Value Reference Range Interpretation Comments R-time (test code = R-time) 4.1 min 5.0-10.0 [place] [id number] 03:45:00 Test Item Value Reference Range Interpretation Comments K-time (test code = K-time) 2.2 min 1.0-3.0 [place] 064469-10-31 03:45:00 Test Item Value Reference Range Interpretation Comments Angle (test code = Angle) 61.4 degrees 53.0-72.0 [place] 064469-10-31 03:45:00 Test Item Value Reference Range Interpretation Comments Max Amp (test code = Max Amp) 54.2 mm 50.0-70.0 [place] 064469-10-31 03:45:00 Test Item Value Reference Range Interpretation Comments G-value (test code = G-value) 5.9 4.5-11.0 [place] 064469-10-31 03:45:00 Test Item Value Reference Range Interpretation Comments Ly30 (test code = 0.0 See_Comment [Automate d message] The Ly30) system which ge nerated this result transmit guillaume reference range : <=7.5. The reference range was not used to interpr et this result as jd l/abnormal. [facility] [id number] 03:45:00 Test Item Value Reference Range Interpretation Comments Coag Index (test code 0.0 1 See_Comment [Auto mated message] The = Coag Index) system which g enerated this result transmit guillaume reference range : <=3.0. The reference range was not used to interpr et this result as jd l/abnormal. [facility] H[id number] 03:45:00 Test Item Value Reference Range Interpretation Comments TEG Data (test code = See Note (02/14/19 TEG Data) 10:45 PM) [facility] HospitalPlug [facility] [id number] 22:15:00 Test Item Value Reference Range Interpretation Comments ABO/Rh (test code = ABO/Rh) O POS [facility] HospitalRadiate Media [facility] [id number] 22:15:00 Test Item Value Reference Range Interpretation Comments Antibody Scrn (test Negative (02/14/19 code = Antibody Scrn) 5:15 PM) [facility] ResourcesCHEM [id number] 22:15:00 Test Item Value Reference Range Interpretation Comments Lactic Acid Lvl (test code = Lactic 1.5 0.5-2.2 Acid Lvl) [facility] [id number] 22:15:00 Test Item Value Reference Range Interpretation Comments ACT (TEG) Rapid (test code = ACT (TEG) 136 s 86-118 Rapid) [facility] H[id number] 22:15:00 Test Item Value Reference Range Interpretation Comments Split Point Rapid (test code = Split 0.8 min Point Rapid) [facility] [id number] 22:15:00 Test Item Value Reference Range Interpretation Comments R-time Rapid (test code = R-time 0.9 min 0.4-0.7 Rapid) [facility] [id number] 22:15:00 Test Item Value Reference Range Interpretation Comments K-time Rapid (test code = K-time 2.2 min 0.6-2.3 Rapid) [facility] [id number] 22:15:00 Test Item Value Reference Range Interpretation Comments Angle Rapid (test code = Angle 68 degrees 64-80 Rapid) [facility] [id number] 22:15:00 Test Item Value Reference Range Interpretation Comments Max Amplitude Rapid (test code = Max 57 mm 52-71 Amplitude Rapid) [facility] H[id number] 22:15:00 Test Item Value Reference Range Interpretation Comments G-value Rapid (test code = G-value 6.6 5.0-11.6 Rapid) [facility] [id number] 22:15:00 Test Item Value Reference Range Interpretation Comments Estimated % Lysis Rapid 0.0 See_Comment [Au tomated message] The (test code = Estimated syste m which generated % Lysis Rapid) this result t ransmitted reference range : <=7.5. The reference r madi was not used to int erpret this result as normal/abnormal . [facility] [id number] 22:15:00 Test Item Value Reference Range Interpretation Comments Ethanol Lvl (test code = Ethanol Lvl) no gt [facility] [id number] 22:15:00 Test Item Value Reference Range Interpretation Comments Etoh (%) (test code = Etoh (%)) no gt [facility]
[2021-05-28 17:47] LABS: Urine Blood Trace-intact (Negative); Urine Glucose Negative (Negative); Urine Protein Negative (Negative)
--- NOTE | 2021-05-28 17:58 | RAD REPORT ---
EXAM DESCRIPTION: CT - Ct Stroke Brain Wo Cont - 05/28/2021 5:50 pm CLINICAL HISTORY: TIA COMPARISON: Head Brain Wo Cont dated 09/10/2020; Head Brain Wo Cont dated 06/19/2019 TECHNIQUE: All CT scans are performed using dose optimization technique as appropriate and may inclu de automated exposure control or mA/KV adjustment according to patient size. 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 Left temporal and bifrontal lobe encephalomalacia is again identif ied and unchanged. Left frontal craniotomy. No acute intracranial hemorrhage. The paranasal sinuses and mastoids are clear. The calvarium is intact. IMPRESSION: No acute intracranial abnormality. Chronic changes as noted above.
--- NOTE | 2021-05-28 18:17 | RAD REPORT ---
EXAM DESCRIPTION: RAD - Chest Single View - 05/28/2021 6:07 pm CLINICAL HISTORY: TIA COMPARISON: Chest Single View dated 09/10/2020; Chest Single View dated 09/08/2020; Chest Single View dated 06/21/2019; Chest Single View dated 06/19/2019; Abdomen Pelvis W Contrast dated 09/08/2020 FINDINGS: Lines: None. Lungs: No evidence of edema or pneumonia. Pleural: No significant pleural effusions or pneumothorax. Cardiac: The heart size is within normal limits. Bones: No acute fractures. ACDF in the cervical spine. Other: Hiatal hernia. IMPRESSION: No acute cardiopulmonary disease.
--- NOTE | 2021-05-28 18:23 | EDPHYS ---
Physician Documentation [facility] Name: Beto Schreiber Sr Age: 89 yrs Sex: Male : 1930 Arrival Date: 05/28/2021 Time: 17:20 Bed 26 Private MD: ED Physician Maurisio Guardado HPI: 05/28 17:36 This 89 yrs old Black Male presents to ER via EMS with complaints of Altered Mental sp3 Status. 17:36 89-year-old male with a history of traumatic brain injury in 2019, CVA 1 year ago, sp3 hypothyroidism, diabetes, hypertension, who lives with his son presents to the ED for change in mental status for over 24 hours described as generalized lethargy, confusion, and decreased responsiveness. Son notified home health nurse who came to the home today and also recommended him to come to the ED for evaluation. No focal neuro deficits were reported by either libertarian. EMS was activated who transported patient to the ED. Patient is verbal and verbalizes no complaints including headache, neck pain, chest pain, shortness of breath, nausea, vomiting, diarrhea, syncope, near syncope, weakness, motor deficiency, sensory deficiency, or any other signs and symptoms at this time as a part of ROS. ROS is somewhat limited secondary to his traumatic brain injury but what is documented above is reported as per him.. Historical: - Allergies: 17:31 meperidine; ld1 - PMHx: 17:31 CVA; Diabetes - NIDDM; Hypertension; Hypothyroidism; Myocardial infarction; subdural ld1 hematoma; - Immunization history:: Adult Immunizations up to date, Client reports receiving the 2nd dose of the Covid vaccine. - Social history:: Smoking status: Patient denies any tobacco usage or history of. Patient/guardian denies using alcohol. ROS: 17:38 Unable to obtain ROS due to baseline dementia, See HPI for ROS.. sp3 Exam: 17:38 Constitutional: This is a well developed, well nourished patient who is awake, alert, sp3 and in no acute distress. Head/Face: Normocephalic, atraumatic. Eyes: Pupils equal round and reactive to light, extra-ocular motions intact. Lids and lashes normal. Conjunctiva and sclera are non-icteric and not injected. Cornea within normal limits. Periorbital areas with no swelling, redness, or edema. ENT: Nares patent. No nasal discharge, no septal abnormalities noted. External auditory canals are clear. Oropharynx with no redness, swelling, or masses, exudates, or evidence of obstruction, uvula midline. Mucous membranes moist. Neck: Trachea midline, no thyromegaly or masses palpated, and no cervical lymphadenopathy. Supple, full range of motion without nuchal rigidity, or vertebral point tenderness. No Meningismus. Chest/axilla: Normal chest wall appearance and motion. Nontender with no deformity. No lesions are appreciated. Cardiovascular: Regular rate and rhythm with a normal S1 and S2. No gallops, murmurs, or rubs. Normal PMI, no JVD. No pulse deficits. Respiratory: Lungs have equal breath sounds bilaterally, clear to auscultation and percussion. No rales, rhonchi or wheezes noted. No increased work of breathing, no retractions or nasal flaring. Abdomen/GI: Soft, non-tender, with normal bowel sounds. No distension or tympany. No guarding or rebound. No evidence of tenderness throughout. Skin: Warm, dry with normal turgor. Normal color with no rashes, no lesions, and no evidence of cellulitis. MS/ Extremity: Pulses equal, no cyanosis. Neurovascular intact. Full, normal range of motion. Psych: Awake, alert, with orientation to person, place and time. Behavior, mood, and affect are within normal limits. 17:38 Neuro: Neuro exam grossly normal including motor strength including laterality, gross sensory including proprioception. Patient can answer questions appropriately. Long-term memory is deficient. No facial droop and cranial nerves II through XII are normal.. 17:59 ECG was reviewed by the Attending Physician. Rhythm at 82 bpm with AK interval of 222 sp3 no first-degree AV block with poor R wave progression and nonspecific diffuse ST/T changes without evidence of acute ischemia. EKG demonstrates significant motion artifact and therefore limited read above. Vital Signs: 17:21 BP 158 / 85; Pulse 86; Resp 18; Temp 97.9(O); Pulse Ox 95% on R/A; Weight 79.83 kg; ld1 Height 5 ft. 9 in. (175.26 cm); Pain 0/10; 18:00 BP 118 / 80; Pulse 85; Resp 18; Pulse Ox 95% on R/A; ld1 18:29 BP 136 / 90; Pulse 81; Resp 18; Pulse Ox 94% on R/A; ld1 20:01 BP 136 / 90; Pulse 81; Resp 14; Pulse Ox 97% on R/A; ld1 17:21 Body Mass Index 25.99 (79.83 kg, 175.26 cm) ld1 MDM: 17:30 Patient medically screened. sp3 17:39 Data reviewed: vital signs, nurses notes. ED course: 89-year-old male with altered sp3 mental status x24 hours. Differential diagnosis includes CVA, intracranial hemorrhage, TIA, sepsis, pneumonia, UTI, dehydration, dementia, among others. Will assess with CT scan of the head, laboratory values including troponin, EKG, urine analysis, and general observation. Disposition possible discharge if work-up is negative and patient remains with a baseline neurological exam and back at his baseline mental status. Son does state that he looks improved now. Patient seen Dr. Carpio in the past. Possible admission of symptoms return or lab abnormalities or diagnostic work-up determines admission is necessary.. 18:00 ED course: CT scan reviewed by me and does not show any acute bleed or significant sp3 abnormality that is new. I spoke with Dr. Carpio who wants the patient admitted for MRI and EEG and further work-up. Will discuss with hospitalist service and follow labs as they come in.. 05/28 17:35 Order name: Basic Metabolic Panel sp3 05/28 17:35 Order name: CBC with Diff; Complete Time: 18:56 sp3 05/28 17:35 Order name: Protime (+inr); Complete Time: 18:36 sp3 05/28 17:35 Order name: Ptt, Activated; Complete Time: 18:36 sp3 05/28 17:35 Order name: Troponin HS sp3 05/28 17:35 Order name: CT Stroke Brain w/o Contrast; Complete Time: 18:36 sp3 05/28 17:35 Order name: Stroke CXR 1 View; Complete Time: 18:36 sp3 05/28 17:35 Order name: EKG; Complete Time: 17:35 sp3 05/28 17:46 Order name: Urine Dipstick-Ancillary; Complete Time: 18:36 EDMS 05/28 18:16 Order name: COVID-19/FLU A+B (Document "Date of Onset" if Symptomatic) jd3 05/28 18:25 Order name: Glucose, Ancillary Testing; Complete Time: 18:36 EDMS 05/28 18:58 Order name: Urinalysis W/Microscopic EDMS 05/28 17:35 Order name: Accucheck; Complete Time: 18:16 sp3 05/28 17:35 Order name: Cardiac monitoring; Complete Time: 17:36 sp3 05/28 17:35 Order name: EKG - Nurse/Tech; Complete Time: 17:59 sp3 05/28 17:35 Order name: IV Saline Lock; Complete Time: 18:16 sp3 05/28 17:35 Order name: Labs collected and sent; Complete Time: 18:16 sp3 05/28 17:35 Order name: NPO; Complete Time: 17:36 sp3 05/28 17:35 Order name: O2 Per Protocol; Complete Time: 17:36 sp3 05/28 17:35 Order name: O2 Sat Monitoring; Complete Time: 17:36 sp3 05/28 17:35 Order name: Stroke Swallow Screen; Complete Time: 18:29 sp3 05/28 17:35 Order name: Urine Dipstick-Ancillary (obtain specimen); Complete Time: 17:46 sp3 Administered Medications: No medications were administered Disposition Summary: 05/28/21 18:22 Hospitalization Ordered Hospitalization Status: Observation sp3 Provider: Khari Gallardo sp3 Location: Telemetry/MedSurg (observation) sp3 Condition: Stable sp3 Problem: an acute exacerbation sp3 Symptoms: have improved sp3 Bed/Room Type: Standard sp3 Room Assignment: 230(05/28/21 20:39) eb1 Diagnosis - Transient cerebral ischemic attack, unspecified sp3 - Altered mental status, unspecified sp3 Forms: - Medication Reconciliation Form sp3 - SBAR form sp3 Signatures: Dispatcher [employer] EDMS Madelyn Tejeda RN RN eb1 Elham Bernal RN RN ld1 Maurisio Guardado MD MD sp3 Corrections: (The following items were deleted from the chart) 18:58 17:36 URINALYSIS+U.LAB.BRZ ordered. EDMS EDMS 18:58 17:36 UA MICROSCOPIC+U.LAB.BRZ ordered. EDMS EDMS 20:39 18:22 sp3 eb1
--- NOTE | 2021-05-28 18:23 | ER ---
Nurse's Notes [facility] Name: Beto Schreiber Sr Age: 89 yrs Sex: Male : 1930 Arrival Date: 05/28/2021 Time: 17:20 Bed 26 Private MD: Diagnosis: Transient cerebral ischemic attack, unspecified;Altered mental status, unspecified Presentation: 05/28 17:21 Chief complaint: EMS states: toned out for altered mental status from care home. Home ld1 nurse stated his baseline is nonverbal. Upon arrival pt denies pain. Coronavirus screen: At this time, the client does not indicate any symptoms associated with coronavirus-19. Ebola Screen: No symptoms or risks identified at this time. Initial Sepsis Screen: Does the patient meet any 2 criteria? No. Patient's initial sepsis screen is negative. Does the patient have a suspected source of infection? No. Patient's initial sepsis screen is negative. Risk Assessment: Do you want to hurt yourself or someone else? Patient reports no desire to harm self or others. Onset of symptoms was May 28, 2021. 17:21 Method Of Arrival: EMS: [facility] ld1 17:21 Acuity: ASMITA 3 ld1 Triage Assessment: 17:31 General: Appears in no apparent distress. comfortable, Behavior is calm, cooperative, ld1 appropriate for age. General: Appears. Pain: Denies pain. EENT: No signs and/or symptoms were reported regarding the EENT system. Neuro: Level of Consciousness is awake, alert, obeys commands, Oriented to person. Cardiovascular: Capillary refill < 3 seconds Patient's skin is warm and dry. Respiratory: Airway is patent Respiratory effort is even, unlabored. GI: Abdomen is flat, non-distended. : No signs and/or symptoms were reported regarding the genitourinary system. Derm: No signs and/or symptoms reported regarding the dermatologic system. Musculoskeletal: No signs and/or symptoms reported regarding the musculoskeletal system. Historical: - Allergies: 17:31 meperidine; ld1 - PMHx: 17:31 CVA; Diabetes - NIDDM; Hypertension; Hypothyroidism; Myocardial infarction; subdural ld1 hematoma; - Immunization history:: Adult Immunizations up to date, Client reports receiving the 2nd dose of the Covid vaccine. - Social history:: Smoking status: Patient denies any tobacco usage or history of. Patient/guardian denies using alcohol. Screenin:33 Abuse screen: Denies threats or abuse. Denies injuries from another. Nutritional ld1 screening: No deficits noted. Tuberculosis screening: No symptoms or risk factors identified. Fall Risk None identified. Assessment: 17:33 Reassessment: See triage assessment. ld1 17:35 Reassessment: EMS gave address to [place] - [address] [place] [address], [place], [address] [address]. 20:44 Reassessment:. ld1 Vital Signs: 17:21 BP 158 / 85; Pulse 86; Resp 18; Temp 97.9(O); Pulse Ox 95% on R/A; Weight 79.83 kg; ld1 Height 5 ft. 9 in. (175.26 cm); Pain 0/10; 18:00 BP 118 / 80; Pulse 85; Resp 18; Pulse Ox 95% on R/A; ld1 18:29 BP 136 / 90; Pulse 81; Resp 18; Pulse Ox 94% on R/A; ld1 20:01 BP 136 / 90; Pulse 81; Resp 14; Pulse Ox 97% on R/A; ld1 17:21 Body Mass Index 25.99 (79.83 kg, 175.26 cm) ld1 ED Course: 17:20 Patient arrived in ED. em1 17:21 Elham Bernal, RN is Primary Nurse. ld1 17:30 Maurisio Guardado MD is Attending Physician. sp3 17:31 Triage completed. ld1 17:31 Arm band placed on right wrist. ld1 17:33 Patient has correct armband on for positive identification. Placed in gown. Bed in low ld1 position. Call light in reach. Side rails up X2. monitor worker on. Pulse ox on. NIBP on. Door closed. Noise minimized. Warm blanket given. 17:33 No provider procedures requiring assistance completed. ld1 17:49 CT Stroke Brain w/o Contrast In Process Unspecified. EDMS 18:07 Stroke CXR 1 View In Process Unspecified. EDMS 18:22 Khari Gallardo MD is Hospitalizing Provider. sp3 18:29 COVID-19/FLU A+B (Document "Date of Onset" if Symptomatic) Sent. ld1 20:44 attempted to call report. Nurse told me she was not ready for report that she would ld1 call me back when ready. 21:31 Patient admitted, IV remains in place. ld1 Administered Medications: No medications were administered Outcome: 18:22 Decision to Hospitalize by Provider. tracy 21:31 Admitted to Med/surg accompanied by tech, via wheelchair, room 230, with chart, Report ld1 called to DAMARI Venegas 21:31 Condition: stable 21:31 Discharge instructions given to patient, Instructed on the need for admit. 22:10 Patient left the ED. sv1 Signatures: Dispatcher [employer] Tavon Jim em1 Elham Bernal RN RN ld1 Maurisio Guardado MD MD sp3 Ad Worley RN RN sv1
[2021-05-28 18:25] LABS: Absolute Lymphocytes (CBC) 1.3 K/uL (0.7-4.9); Hematocrit 42.5 % (39.6-49.0); Lymphocytes % 22.3 % (15.3-44.8); MPV 8.3 fL (7.6-11.3); RBC Red Blood Cell Count 4.56 M/uL (4.33-5.43)
[2021-05-28 18:28] LABS: Protime INR 1.04
[2021-05-28 18:59] LABS: Urine Appearance CLEAR (Clear); Urine Bilirubin NEGATIVE (Negative); Urine Blood 1+ (Negative); Urine Color YELLOW (Yellow); Urine Glucose NEGATIVE (Negative); Urine Protein NEGATIVE (Negative); Urine Specific Gravity 1.015 (1.005-1.030); Urine Urobilinogen 0.2 mg/dL (0.2-1.0)
[2021-05-28 19:14] LABS: Urine Bacteria NONE SEEN /HPF (NONE SEEN)
[2021-05-28 19:29] LABS: Troponin High Sensitivity 28.8 pg/mL (<58.9)
--- NOTE | 2021-05-28 19:50 | P.HP ---
Certification for Inpatient Patient admitted to: Observation With expected LOS: <2 Midnights Patient will require the following post-hospital care: None Practitioner: I am a practitioner with admitting privileges, knowledge of patient current condition, hospital course, and medical plan of care. Services: Services provided to patient in accordance with Admission requirements found in Title 42 Section 412.3 of the Code of Federal Regulations <Antonio Bueno Reginald - Last Filed: 05/28/21 19:45> Patient History Date of Service: 05/28/21 Reason for admission: AMS History of Present Illness: Mr. Schreiber is an 89 yo M with history of CVA, TBI with speech dysfunction, HTN, hypothyroidism, CAD, CHF who presents with 24 hours of AMS. Per his son, he has been lethargic, confused and disoriented. He says he is unable to answer questions as usual and has been restless. He also has had nausea and wheezing. Denies cough, vomiting, fever, and falls. [facility] went to evaluate the patient and recommended he go to the ED. Son says the patient has improved somewhat since arrival. He recently had dental surgery on Tuesday, but his diet has advanced to solids since then. CT Head showed no acute findings. CXR wnl. Neurology was contacted and recommended admission for observation for MRI and EEG in the AM. Plt 148 BUN 19 Cr 1.73 GFR 45 - Past Medical/Surgical History Diabetic: No -: Hypertension -: Hypothyroidism -: Chronic diastolic CHF -: CAD -: History of subdural hematomas -: Chronic hyponatremia -: History of traumatic brain injury with speech dysfunction -: History of PEG tube -: Craniotomy -: Hip surgery -: Neck surgery Psychosocial/ Personal History: Patient lives with son. Patient receives home health. - Family History Mother -: Diabetes, Cancer Father -: Other (see notes) Notes: Dementia Sister -: Hypertension, Cancer - Social History Smoking Status: Never smoker Alcohol use: No CD- Drugs: No Caffeine use: No Place of Residence: Home <Deya Buenoallegra Montelongo - Last Filed: 05/28/21 19:45> Date of Service: 05/28/21 <Khari Gallardo - Last Filed: 06/01/21 06:10> Allergies meperidine HCl [From Demerol] Allergy (Verified 09/10/20 23:35) hallucinations Home Medications: Levothyroxine [Synthroid*] 0.75 tab PO DAILY 06/19/19 Aspirin [Valentín Chewable Aspirin] 1 tab PO DAILY 09/08/20 Furosemide [Lasix*] 20 mg PO DAILY 09/08/20 OXcarbazepine [Oxcarbazepine] 150 mg PO BID 09/08/20 Pantoprazole [Protonix Tab*] 40 mg PO DAILY #30 tab 09/09/20 Atorvastatin Calcium [Lipitor] 40 mg PO BEDTIME tab 09/12/20 Melatonin 5 mg PO BEDTIME PRN PRN #14 tablet 05/29/21 Review of Systems 10-point ROS is otherwise unremarkable General: Weakness Eyes: Unremarkable ENT: Unremarkable Respiratory: Wheezing Cardiovascular: Unremarkable Gastrointestinal: Nausea Genitourinary: Unremarkable Musculoskeletal: Unremarkable Integumentary: Unremarkable Neurological: Weakness, Confusion, As per HPI Lymphatics: Unremarkable <Antonio Bueno - Last Filed: 05/28/21 19:45> Physical Examination - Physical Exam General: Alert, In no apparent distress, Confused HEENT: Atraumatic, PERRLA, Mucous membr. moist/pink, EOMI, Sclerae nonicteric Neck: Supple, 2+ carotid pulse no bruit, No LAD, Without JVD or thyroid abnormality Respiratory: Clear to auscultation bilaterally, Normal air movement Cardiovascular: Regular rate/rhythm, Normal S1 S2, Edema Gastrointestinal: Normal bowel sounds, No tenderness Musculoskeletal: No tenderness Integumentary: No rashes Neurological: Normal tone, Sensation intact, Abnormal speech, Abnormal strength, Abnormal affect Lymphatics: No axilla or inguinal lymphadenopathy - Studies Laboratory Data (last 24 hrs) 05/28/21 18:13: PT 12.0, INR 1.04, APTT 27.9 05/28/21 18:13: WBC 5.60, Hgb 13.9, Hct 42.5, Plt Count 148 L 05/28/21 18:13: Sodium 139, Potassium 4.0, BUN 19 H, Creatinine 1.73 H, Glucose 104 <Antonio Bueno - Last Filed: 05/28/21 19:45> Assessment and Plan - Problems (Diagnosis) (1) TBI (traumatic brain injury) Status: Chronic Qualifiers: Encounter type: sequela Loss of consciousness presence/duration: without LOC Qualified Code(s): S06.9X0S - Unspecified intracranial injury without loss of consciousness, sequela (2) CVA (cerebral vascular accident) Status: Chronic Qualifiers: CVA mechanism: unspecified Qualified Code(s): I63.9 - Cerebral infarction, unspecified (3) HTN (hypertension) Status: Chronic Qualifiers: Hypertension type: primary hypertension Qualified Code(s): I10 - Essential (primary) hypertension (4) Hypothyroid Status: Chronic Qualifiers: Hypothyroidism type: unspecified Qualified Code(s): E03.9 - Hypothyroidism, unspecified (5) CAD (coronary artery disease) Status: Chronic Qualifiers: Coronary Disease-Associated Artery/Lesion type: unspecified vessel or lesion type [place] vs. transplanted heart: [place] heart Associated angina: without angina Qualified Code(s): I25.10 - Atherosclerotic heart disease of [place] coronary artery without angina pectoris (6) AMS (altered mental status) Status: Acute Qualifiers: Altered mental status type: disorientation Qualified Code(s): R41.0 - Disorientation, unspecified (7) CKD (chronic kidney disease) Status: Chronic Qualifiers: Chronic kidney disease stage 3 subtype: stage 3a (GFR 45-59) - Plan neurology consulted MRI and EEG in the AM NPO, bedside swallow pending, speech consulted BG checks daily ASA, statin, folic acid lipid and thyroid panels pending BNP pending PT consulted reconcile and continue home medications DVT ppx Discharge Plan: Home Plan to discharge in: 24 Hours - Advance Directives Does patient have a Living Will: No Does patient have a Durable POA for Healthcare: No - Code Status/Comfort Care Code Status Assessed: Yes (full code ) Critical Care: No Time Spent Managing Pts Care (In Minutes): 70 <Antonio Bueno - Last Filed: 05/28/21 19:45> Date of Service: 05/28/21 Subjective: Agree with HPI as mentioned above Physical Examination: Vitals: Afebrile vital signs are stable Physical exam: Cardiovascular: Within normal limits. Lungs: Within normal limits Abdomen: Within normal limits Neuro: Awake, alert, oriented to person place and time Assessment: 1. Altered mental status 2. TIA Plan: 1. Continue with current plan of care as mentioned above <Khari Gallardo - Last Filed: 06/01/21 06:10>
[2021-05-28] MEDS ORDERED: ONDANSETRON 4 MG/2 ML VIAL IV PRN (20:14)
[2021-05-28] MEDS ORDERED: MELATONIN 5 MG TABLET PO PRN (20:14)
[2021-05-28] MEDS ORDERED: ACETAMINOPHEN 500 MG TAB PO PRN (20:14)
[2021-05-28 20:25] LABS: SARS-COV-2 RT PCR NEGATIVE (NEGATIVE)
[2021-05-28] MEDS ORDERED: ATORVASTATIN 40 MG TAB PO SCH (21:00)
[2021-05-28 22:33] VITALS: O2SAT 97
[2021-05-28 22:43] VITALS: BMI 26.2
[2021-05-28] MEDS: OXcarbazepine 150 MG TAB PO SCH (22:46)
[2021-05-29 06:02] LABS: Albumin 2.9 g/dL (3.4-5.0); Bilirubin Total 0.5 mg/dL (0.2-1.0); Protein, Total 5.9 g/dL (6.4-8.2); Thyroid Stimulating Hormone 1.46 uIU/mL (0.360-3.740)
[2021-05-29 07:53] LABS: Absolute Lymphocytes (CBC) 1.4 K/uL (0.7-4.9); Hematocrit 41.2 % (39.6-49.0); Lymphocytes % 27.5 % (15.3-44.8); MPV 8.6 fL (7.6-11.3); RBC Red Blood Cell Count 4.39 M/uL (4.33-5.43)
[2021-05-29] MEDS ORDERED: PNEUMOCOCCAL VACCINE 0.5 ML IMVAC ONE (08:00)
[2021-05-29] MEDS ORDERED: FOLIC ACID 1 MG TABLET PO SCH (09:00)
[2021-05-29] MEDS ORDERED: ASPIRIN EC 81 MG TAB PO SCH (09:00)
[2021-05-29] MEDS: OXcarbazepine 150 MG TAB PO SCH (09:00)
--- NOTE | 2021-05-29 10:08 | RAD REPORT ---
EXAM DESCRIPTION: MRI - Brain W/Wo Cont - 05/29/2021 8:27 am CLINICAL HISTORY: ams Headache, drowsiness COMPARISON: Ct Stroke Brain Wo Cont dated 05/28/2021; MRA Head Wo Cont dated 09/12/2020; Brain W/Wo Co nt dated 09/12/2020 TECHNIQUE: Multi-sequence, multiplanar MR imaging of the brain was performed with contrast. FINDINGS: Chronic bifrontal subdural fluid collections are again seen without significant change sin ce 09/12/2020 compatible with chronic subdural hematomas or hygromas.No acute hemorrhage is seen. No midline shift evident. A large amount of gliosis is seen in the left temporal lobe likely related to old infarction.. No hydrocephalus. DWI is negative for acute CVA. The midline structures are normally formed. Mastoid air cells and paranasal sinuses are clear. Diffuse thin dural enhancement again seen likely related to previous craniotomy. Significant canal st enosis is seen in the cervical spine upper aspects. IMPRESSION: No real change has occurred in the appearance of the brain since 09/12/2020. No acute or new abnormality seen. No pathologic post-contrast enhancement suspected.
[2021-05-29 16:55] VITALS: BP 134/76; TEMP 97.3
--- NOTE | 2021-05-29 18:59 | CON ---
Reason For Consultation: Altered mental status. History Of Present Illness: Mr. Schreiber is an 89-year-old right-handed patient with history of stroke with traumatic brain injury with bilateral frontal hygromas present and stable since at least 1999. In addition, hypertension, hypothyroidism, congestive heart failure, and per the adult psychiatrist, a PFO. The patient was apparently more lethargic, confused, disoriented and not able to follow any instruc tions or answer questions for about 2 days prior to coming to the hospital. He also was seen more re stless. He had nausea, reported wheezing, but no vomiting. No fever, cough, and was negative for CO VID-19. He did not have an obvious face, arm or leg asymmetry. He was scheduled to have dental surg laxmi on Tuesday, but that was not done. He was having therapy for swallowing and reportedly diet had been advanced to solid diet. However, he has had more difficulty with his clearance of food and was brought into rule out stroke. Head CT scan done on the 28 of May identified a chronic bifront al subdural collections of fluid. There was left temporal and bifrontal lobe encephalomalacia, which is unchanged from prior scan of 06/19/2019. No acute intracranial hemorrhage identified. Has brain MRI done today that is 05/29/2021 confirmed the presence of bifrontal subdural fluid collections lik maurice hygromas, stable since around 2019 as noted above. There was no acute ischemic or hemorrhagic ch madi. There was a large area of gliosis in the left temporal lobe related to his old stroke. His laboratory studies showed essentially unremarkable complete blood count with differential. Coagu lation panel was unremarkable. Chemistries consistent with chronic renal insufficiency. Creatinine 1.45, in addition to dehydration. Glucose ranged 68-88. His HDL cholesterol is 45, LDL 34, TSH 1.46 . Liver function studies were normal. Urinalysis showed a trace of blood, 5-10 red blood cells, but otherwise unremarkable. His COVID-19 test was negative. His chest x-ray showed no acute cardiopulm onary disease. The patient's son says he has been more alert and is sitting upright in the chair. Still has a signi ficant difficult time communicating. He does, however, communicate that he is hungry or other basic things, but cannot follow complex commands or carry on a conversation with more than 1 or 2 words. Past Medical History: As noted. Surgical History: PEG tube, craniotomy, hip surgery, neck surgery. Allergies: MEROPENEM. Medications: Levothyroxine 0.75 mg daily, aspirin 81 mg daily, Lasix 20 mg daily, Oxcarbazepine 150 mg twice daily, sodium chloride 1 g daily, Protonix 40 mg daily, Lipitor 40 mg at bedtime, folic acid 1 mg daily, magnesium citrate 300 mL p.o. daily as needed. Family History: Diabetes and cancer in mother. Dementia in father. Sister with cancer and hyperten jomar. Social History: Denies alcohol, tobacco, or IV drug use. Review of Systems: No recent fevers or chills. There is mild nausea, disorientation, diffuse weakness and inability to communicate effectively. Otherwise, no genitourinary issues. No active musculoskeletal issues. No dermatological issues. Physical Examination: Vital Signs: Blood pressure 149/65, pulse 89, respirations 16, temp 97.6, oxygen saturation 97% room air. General: Mr. Schreiber is sitting in a chair beside the bed. His son is at the bedside as well. HEENT: He is normocephalic, atraumatic. His sclerae are anicteric. Oropharynx is pink and moist. He does have poor dentition. Neck: Supple. Chest: Clear. Heart: Regular. Extremities: Show no significant edema, cyanosis, or clubbing. Abdomen: Soft. Neurological: He is alert and oriented to person, not place, time, and situation. He has difficulty following one-step commands such as show a thumbs-up sign or command such as touch the right ear wit h the left hand. He could not identify a cup or lynch. Otherwise, he does have some difficulty with a rticulation, but clearly has both expressive and receptive difficulties. Motor examination, there is no obvious weakness in the upper and lower extremities. There is no obvious focal weakness in the u pper and lower extremities. Sensation, difficult to assess. Appears to respond equally well on both sides. Coordination appear intact in the upper and lower extremities. Reflexes symmetric and depre ssed in upper extremities and his gait. He did ambulate over 300 feet with front wheel walker with c ontact guard required. He did have some cuing to allow him to maintain a straight line. Assessment: Mr. Schreiber is an 89-year-old patient with multiple medical problems including prior strok e, TBI with bifrontal fluid collections, large left temporal area of encephalomalacia from chronic st roke, hypothyroidism, chronic diastolic congestive heart failure, reported PFO per adult psychiatrist, who has a significant expressive and receptive aphasia. Plan: 1.The patient may, at this point, be discharged home as he is at baseline. The frontal subdural flu id collections have been present since 1999. He has no acute stroke on MRI, which was done today. T hre is a large area of encephalomalacia in the left temporal lobe and therefore had significant diffi culty communicating that will continue. However, he can benefit from Speech Therapy to help with brit kinsey, which is currently mechanical soft diet with thin liquids. 2.Aggressive management of his hypertension. Continue management of hypothyroidism and congestive h eart failure. 3.When discharged, he should have physical therapy in addition to speech therapy to help him continu e improving. EEGs done, results will be followed up. NARINDER/MARIBEL Voice ID: [id number] Report ID: [id number]
--- NOTE | 2021-06-01 06:09 | P.DS ---
Discharge Date: 05/29/21 Disposition: ROUTINE DISCHARGE Discharge Condition: GOOD Reason for Admission: AMS Brief History of Present Illness: Mr. Schreiber is an 89 yo M with history of CVA, TBI with speech dysfunction, HTN, hypothyroidism, CAD, CHF who presents with 24 hours of AMS. Per his son, he has been lethargic, confused and disoriented. He says he is unable to answer questions as usual and has been restless. He also has had nausea and wheezing. Denies cough, vomiting, fever, and falls. [facility] went to evaluate the patient and recommended he go to the ED. Son says the patient has improved somewhat since arrival. He recently had dental surgery on Tuesday, but his diet has advanced to solids since then. CT Head showed no acute findings. CXR wnl. Neurology was contacted and recommended admission for observation for MRI and EEG in the AM. Plt 148 BUN 19 Cr 1.73 GFR 45 Hospital Course: Patient has done well during hospital stay. Patient is back to baseline. MRI was negative. At this time, patient is stable for discharge home with outpatient follow with Neurology. Vital Signs/Physical Exam: Temp Pulse Resp BP Pulse Ox 97.3 F 61 16 134/76 97 05/29/21 16:00 05/29/21 16:00 05/29/21 16:00 05/29/21 16:00 05/29/21 16:00 General: Alert, In no apparent distress, Oriented x3 Laboratory Data at Discharge: WBC 5.00 K/uL (4.3-10.9) 05/29/21 07:26 Hgb 13.3 g/dL (13.6-17.9) L 05/29/21 07:26 Hct 41.2 % (39.6-49.0) 05/29/21 07:26 Plt Count 128 K/uL (152-406) L 05/29/21 07:26 PT 12.0 SECONDS (9.5-12.5) 05/28/21 18:13 INR 1.04 05/28/21 18:13 APTT 27.9 SECONDS (24.3-36.9) 05/28/21 18:13 Sodium 140 mmol/L (136-145) 05/29/21 04:39 Potassium 4.0 mmol/L (3.5-5.1) 05/29/21 04:39 BUN 20 mg/dL (7-18) H 05/29/21 04:39 Creatinine 1.45 mg/dL (0.55-1.3) H 05/29/21 04:39 Glucose 88 mg/dL (74-106) 05/29/21 04:39 Total Bilirubin 0.5 mg/dL (0.2-1.0) 05/29/21 04:39 AST 20 U/L (15-37) 05/29/21 04:39 ALT 17 U/L (12-78) 05/29/21 04:39 Alkaline Phosphatase 73 U/L (45-117) 05/29/21 04:39 Triglycerides 43 mg/dL (<150) 05/29/21 04:39 Cholesterol 88 mg/dL (<200) 05/29/21 04:39 HDL Cholesterol 45 mg/dL (40-60) 05/29/21 04:39 Cholesterol/HDL Ratio 1.96 05/29/21 04:39 Home Medications: Levothyroxine [Synthroid*] 0.75 tab PO DAILY 06/19/19 Aspirin [Valentín Chewable Aspirin] 1 tab PO DAILY 09/08/20 Furosemide [Lasix*] 20 mg PO DAILY 09/08/20 OXcarbazepine [Oxcarbazepine] 150 mg PO BID 09/08/20 Pantoprazole [Protonix Tab*] 40 mg PO DAILY #30 tab 09/09/20 Atorvastatin Calcium [Lipitor] 40 mg PO BEDTIME tab 09/12/20 Melatonin 5 mg PO BEDTIME PRN PRN #14 tablet 05/29/21 New Medications: Melatonin 5 mg PO BEDTIME PRN PRN #14 tablet PRN Reason: Insomnia Physician Discharge Instructions: -DC IV and DC home -Follow-up with PCP in 1 to 2 weeks -Follow-up with Neurology in 1 to 2 weeks -Please call Dr. Gallardo at [phone] if any questions regarding hospital stay -Please call nursing station at [phone] if any nursing or medication questions -Return to the emergency room if symptoms worsen -If patient requires pain medication please contact Dr. Gallardo-do not take oxycodone. Diet: AHA Activity: Fall precautions Followup: NONE,NONE [Primary Care Provider] - Time spent managing pt's care (in minutes): 35
== END 2021-05-29 18:45 | disposition home or self-care (01) ==
LOC: ER 17:15 → ERHOLD 19:55 → 2ND 21:38
PROVIDERS: ADMIT Hospitalist; ATTEND Hospitalist
DX: R41.0 Disorientation, unspecified (principal); R53.83 Other fatigue; I13.0 Hypertensive heart and chronic kidney disease with heart failure and stage 1 through stage 4 chronic kidney disease, or unspecified chronic kidney disease; N18.31 Chronic kidney disease, stage 3a; I50.32 Chronic diastolic (congestive) heart failure; I25.10 Atherosclerotic heart disease of native coronary artery without angina pectoris; E03.9 Hypothyroidism, unspecified; E87.1 Hypo-osmolality and hyponatremia; F80.2 Mixed receptive-expressive language disorder; G93.89 Other specified disorders of brain; G47.00 Insomnia, unspecified; I25.2 Old myocardial infarction; Z87.820 Personal history of traumatic brain injury; Z86.73 Personal history of transient ischemic attack (TIA), and cerebral infarction without residual deficits; Z79.82 Long term (current) use of aspirin; Z88.1 Allergy status to other antibiotic agents; Z20.822 Contact with and (suspected) exposure to COVID-19; Z83.3 Family history of diabetes mellitus; Z82.49 Family history of ischemic heart disease and other diseases of the circulatory system; Z80.9 Family history of malignant neoplasm, unspecified
CPT/HCPCS: 93005; 85025 ×2; 81001; 80048; 36415; 85610; 80061; 82947 ×4; 85730; 84443; 81003; 84484; 84439; 80053; 83880; 0240U; 70450; 71045; 70553; 92610; 97116; 97161; 99285; A9577; G0378 ×3

== ENCOUNTER 2021-08-18 00:03 | Inpatient (IN) | payer OTHER ==
--- OUTSIDE RECORDS SUMMARY | 2021-08-18 00:25 | XMS REPORT | Continuity of Care Document ---
:1930 Author Organization [facility] t Address [address] [place] [address] Care Team Providers Name Role Phone Anthony Marcus Primary Care Physician Evaristo BUENO Attending Clinician Unavailable OSCAR GARCIA Attending Clinician Unavailable HEDIY WATKINS Attending Clinician Unavailable HERSON_Julia Attending Clinician Unavailable lEroy Marcus Attending Clinician [phone] Evaristo Bueno MD Attending Clinician Only, Test [...] Clinician Unavailable Evaristo BUENO Admitting Clinician Unavailable JOSE, OSCAR Admitting Clinician Unavailable HEIDY WATKINS Admitting Clinician Unavailable ERICKSON_R Admitting Clinician Unavailable AMINTA TO Admitting Clinician Unavailable HE Admitting Clinician Unavailable Payers Payer Name Policy Type Policy Number Effective Date Expiration Date Reginald dubois MEDICARE PART A [id number] 1997 \\T\\ B 00:00:00 [facility] [id number] MEDICARE B-[place]: [id number] 1997 [employer] 00:00:00 Problems Condition Condition [...] t [facility] [place] Acute Acute Disease Active 2019[facility] encephalop encephalop 6-05 [facility] kes - athy athy 00:00: Medical 00 Center OTHER Diagnosis Active 2019-07-16 Mem oria 3- 21:55:00 l OTHER 00:00: Master 00 Active 07/07/2019 [place] HYPONATREM Diagnosis Active 2019-05-31 Memoria IA 05-17 21:51:00 l 00:00: [place] HYPONATREM 00 IA Active 0 [facility] BLEED Diagnosis Active 2018-042019-04-24 M emoria 2- 22:00:00 l GI BLEED 00:00: [place] 00 Active 04/08/2019 [place] CHRONIC Diagnosis Active 2018-042019-04-17 Me moria HYPONATREM 2-11 21:54:00 l IA CHRONIC 00:00: Master HYPONATREM 00 IA Active 9 [facility] ABNORMAL Diagnosis Active 2018-042019-04-05 M emoria LABS 2-11 22:05:00 l ABNORMAL 00:00: [place] LABS 00 Active 03/28/2019 [facility] AMS Diagnosis Active 2018-042019-03-28 Mem oria 2-11 20:50:00 l AMS 00:00: Master 00 Active 03/28/2019 [facility] S06.5X0S - Diagnosis Active 2018-042019-05-24 Memoria TRAUM 1- 10:29:00 l SUBDR HEM S06.5X0S 00:01: Her addison W/O LOSS - TRAUM 00 OF C SUBDR HEM W/O LOSS OF C Active 03/13/2019 TRINA Thao FALL Diagnosis Active 2018-042019-03-06 Mem oria 05-06 22:18:00 l FALL 00:00: [place] 00 Active 03/06/2019 [facility] SDH Diagnosis Active 2018-042019-03-22 Mem oria 05-06 22:22:00 l SDH 00:00: Master 00 Active 03/06/2019 [facility] SAH Diagnosis Active 2018-042019-03-05 Mem oria 21:43:00 l SAH 00:00: [place] 00 Active 02/14/2019 [facility] SANDY Diagnosis Active 2018-042019-02-15 Memoria BILLING/55 0- 09:53:00 l 15 00:00: [place] SANDY 00 BILLING/55 15 Active 9 [facility] Graves Graves Disease Active Univers disease disease - ity of 00:00: [place] 00 Medical Branch Anticoagul Anticoagul Disease Active U nivers ated with ated with 12-21 ity of warfarin warfarin 00:00: [place] [id number] Medical Branch Cervico-oc Problem Active 2019-08-19 M emoria cipital 04-19 21:09:17 l neuralgia 00:00: Master (finding) Cervico-oc 00 cipital neuralgia (finding) Active 04/19/2013 Problem 08/19/2019 Data migrated from [employer] on 09/17/14. [facility], Dre Rolo Thao,[facility] [place] Coronary Problem Active 2019-08-19 Mem oria arterioscl 04-19 21:09:17 l erosis Coronary 00:00: [place] quiroz (disorder) arterioscl 00 erosis (disorder) Active 04/19/2013 Problem 08/19/2019 Data migrated from [employer] on 09/17/14. [facility], Nathalie Erickson,[facility] [place] Degenerati Problem Active 2012-042019-08-19 M emoria on of 06-10 21:09:17 l cervical 00:00: [place] interverte Degenerati 00 bral disc on of (disorder) cervical interverte bral disc (disorder) Active 04/09/2013 Problem 08/19/2019 Data migrated from [facility] on 12/10/14. [facility], Dre, Rolo Thao,[facility], [place] Headache Problem Active 2012-042019-08-19 Mem oria (finding) 06-10 21:09:17 l Headache 00:00: [place] (finding) 00 Active 04/09/2013 Problem 08/19/2019 Data migrated from [facility] on 12/10/14. [facility], Dre, Rolo Thao,[facility], [place] History of Problem Active 2012-042019-08-19 M emoria - 06-10 21:09:17 l myocardial History 00:00: Her addison infarction of - 00 (context-d myocardial ependent infarction category) (context-d ependent category) Active 04/09/2013 Problem 08/19/2019 Data migrated from [facility] on 12/10/14. [facility], Dre, Rolo Thao,[facility], [place] Nontraumat Problem 2019-03-11 M emoria ic chronic 23:00:38 l subdural [place] hemorrhage Nontraumat ic chronic subdural hemorrhage 03/11/2019 [facility] Illness, Problem 2019-05-29 Mem oria unspecifie 22:28:06 l d Illness, [place] unspecifie d 05/29/2019 [facility] Gastrointe Problem Resolve 2019-08-19 Memoria stinal d 21:09:17 l hemorrhage [place] (disorder) Gastrointe stinal hemorrhage (disorder) Resolved Problem 08/19/2019 [facility], [place] Syndrome Problem Resolve 2019-08-19 Me moria of d 21:09:17 l inappropri 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 (disorder) n secretion (disorder) Resolved Problem 08/19/2019 [facility], [place] Atrial Problem Active 2019-08-19 Memor ia fibrillati 21:09:17 l on Atrial [place] (disorder) fibrillati on (disorder) Active Problem 08/19/2019 [facility], [place] 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 [place] 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) Active Problem 08/19/2019 [facility], [place] Congestive Problem Active 2019-08-19 M emoria heart 21:09:17 l failure Master (disorder) Congestive heart failure (disorder) Active Problem 08/19/2019 [facility], [place] Fatigue Problem Active 2019-08-19 [place] (finding) 21:09:17 l Fatigue Master (finding) Active Problem 08/19/2019 [facility], Dre,M Rolo Thao,[facility], [place] Hematoma Problem Active 2019-08-19 Mem oria of 21:09:17 l subdural Hematoma Herm ruddy space of of neuraxis subdural (disorder) space of neuraxis (disorder) Active Problem 08/19/2019 [facility], [place] Hypertensi Problem Active 2019-08-19 M emoria ve 21:09:17 l disorder, [place] systemic Hypertensi arterial ve (disorder) disorder, systemic arterial (disorder) Active Problem 08/19/2019 [facility], [place] Hypothyroi Problem Active 2019-08-19 M emoria dism 21:09:17 l (disorder) [place] Hypothyroi dism (disorder) Active Problem 08/19/2019 [facility], [place] Myocardial Problem Active 2019-08-19 M emoria infarction 21:09:17 l (disorder) [place] Myocardial infarction (disorder) Active Problem 08/19/2019 [facility], [place] Pulmonary Problem Active 2019-08-19 Me moria embolism 21:09:17 l (disorder) [place] Pulmonary embolism (disorder) Active Problem 08/19/2019 [facility], Dre,M Rolo Thao,[facility], [place] Sinus Problem Active 2019-08-19 Memor ia bradycardi 21:09:17 l a Sinus Master (disorder) bradycardi a (disorder) Active Problem 08/19/2019 [facility], [place] Urinary Problem Active 2019-08-19 [place] tract 21:09:17 l infectious Urinary Her addison disease tract (disorder) infectious disease (disorder) Active Problem 08/19/2019 Medical [facility], Dre,M H TRINA Thao,[facility], [place] Asthenia Problem Active 2019-08-19 Mem oria (finding) 21:09:17 l Asthenia [place] (finding) Active Problem 08/19/2019 [facility], Dre,M H TRINA Thao,[facility], [place] HYPO-OSMOL Diagnosis Active 2019-05-31 Memoria ALITY AND 21:51:00 l HYPONATREM [place] IA HYPO-OSMOL ALITY AND HYPONATREM IA Active [facility] TRAUM Diagnosis Active 2019-05-31 Mem oria SUBDR HEM 21:51:00 l W LOC OF TRAUM Master UNSP SUBDR HEM DURATION, W LOC OF UNSP DURATION, Active [facility] NONTRAUMAT Diagnosis Active 2019-03-22 Memoria IC CHRONIC 22:22:00 l SUBDURAL [place] HEMORRHAGE NONTRAUMAT IC CHRONIC SUBDURAL HEMORRHAGE Active [facility] ILLNESS, Diagnosis Active 2019-05-17 M emoria UNSPECIFIE 12:34:00 l D ILLNESS, [place] UNSPECIFIE D Active [facility] NONTRAUMAT Diagnosis Active 2019-03-05 Memoria IC 21:43:00 l SUBARACHNO [place] ID NONTRAUMAT HEMORRHAGE IC , UN SUBARACHNO ID HEMORRHAGE , UN Active [facility] Low back Low back Problem Active Unive rs pain pain [facility] [place] [facility] Thoracic Thoracic Problem Active Unive rs back pain back pain [facility] [place] [facility] Cervical Cervical Problem Active Unive rs pain pain [facility] of [place] [facility] Allergies, Adverse Reactions, Alerts Allergy [...] 2012-04 Memoria HCl HCl 2-20 l 06:00: [place] 00 NO KNOWN Allergy Active [facility] Social History Social Habit Start Date Stop Date Quantity Comments Source Exposure to Not sure [facility] SARS-CoV-2 (event) Medica l [place] Social History 2019-07-07 2019-07-07 [facility] 11:12:48 11:12:48 Tobacco use and 2017-06-07 2017-06-07 Never used Universit y [place] exposure 00:00:00 00:00:00 Medical Branch Alcohol intake 2017-06-07 2017-06-07 0 /d [facility] 00:00:00 00:00:00 [facility] Sex Assigned At [birth year] [facility] kes - 00:00:00 00:00:00 [place] Smoking Status Start Date Stop Date Source Social History [facility] Medications Ordered Filled Start Stop Current Ordering [...] Tue [place] intraocular 00 :30 01/07/21 at [place] dical injection 1110, Branch Until Tue01/07/21 at 1530, Routine, Intra-op balanced 2020- No PRN, Univers salt irrig 01-07 Starting ity of soln comb1 16:10: 20:30 on Tuea s (BSS PLUS) 00 :30 01/07/21 at [facility] ical ophthalmic 1110, Branch solution Until Tue [...] on Tue [place] 00 :30 01/07/21 at [facility] 1100, Branch Until Tue01/07/21 at 1530, [...] base by ity of 13:30: mouth 2 [place] [address] (two) Medical times Branch daily. OXcarbazepi Yes 300mg Take 300 U nivers ne 300 mg 9-22 mg by ity of tablet 13:30: mouth. [place] [address] Medical Branch atorvastati Yes 40mg Take 40 mg Univers n 40 mg -22 by mouth ity of tablet 13:30: at [place] [address] bedtime. Medical Branch warfarin Yes 8mg Take 8 mg Univ ers (COUMADIN) - by mouth ity o f 4 mg tablet 13:30: every [place] [address] evening. Medical Branch carvedilol Yes 3.125mg Take [...] by mouth ity of tablet 13:30: daily. [address] Branch FAMOTIDINE Yes Take 40 mg U nivers ORAL - base by ity of 13:30: mouth 2 [place] [address] (two) Medical times Branch daily. lactated 2020- [...] ity of (JAY-SYNEPH 13:29: 15:35 Q5MIN PRN, [place] RINE) 2.5 % 58 :00 3 doses, Medi cassie ophthalmic Starting Branc h drops 1 on Tue Drop 01/07/21 at 0829, Until Tue01/07/21 at 1035, Routine, Surgery/Pr ocedure, DSU Pre-op ketorolac 2020- No 1[drp] 1 Drop, Un francine (ACULAR) 01-07 Right Eye, ity of 0.5 % 13:29: 15:35 Q5MIN PRN, [place] ophthalmic 58 :00 3 doses, Medic al solution 1 Starting Branc h Drop on Tue01/07/21 at 0829, Until Tue01/07/21 at 1035, Routine, Surgery/Pr ocedure, DSU Pre-op tropicamide 2020- No 1[drp] 1 Drop, Univers (MYDRIACYL) 01-07 Right Eye, i ty of 1 % 13:29: 15:35 Q5MIN PRN, [place] ophthalmic 58 :00 3 doses, Medic al drops 1 Starting Branch Drop on Tue01/07/21 at 0829, Until Tue01/07/21 at 1035, Routine, Surgery/Pr ocedure, DSU Pre-op atorvastati Yes 40mg Take 40 mg Univers n 40 mg 9-17 by mouth ity of tablet 14:10: at [place] 50 bedtime. Medical Branch atorvastati Yes 40mg Take 40 mg Univers n 40 mg 9-17 by mouth ity of tablet 14:10: at [place] 50 bedtime. [facility] Branch OXcarbazepi Yes 300mg Take 300 U nivers ne 300 mg 9-17 mg by ity of tablet 13:59: mouth. [address] OXcarbazepi Yes 300mg Take 300 U [...] by mouth ity of tablet 12:58: daily. [place] [facility] FAMOTIDINE 1-0 Yes Take 40 [...] by mouth ity of tablet 12:58: daily. [address] Branch FAMOTIDINE 2020-0 Yes Take 40 mg U nivers ORAL 9-14 base by ity of 12:58: mouth 2 [place] (two) Medical times Branch daily. divalproex 2020-0 Yes 250mg Take 250 Un francine sodium 9-14 mg by ity of (DEPAKOTE 12:58: mouth 3 [place] ORAL) (three) Medical times Branch daily. aspirin 81 2020-0 Yes 81mg Take 81 mg U nivers mg chewable 9-14 by mouth ity of tablet 12:58: daily. [address] FAMOTIDINE 2020-0 Yes Take 40 mg U nivers ORAL 9-14 base by ity of 12:58: mouth 2 [place] (two) Medical times Branch daily. aspirin 81 2020-0 Yes 81mg Take 81 mg U nivers mg chewable 9-14 by mouth ity of tablet 12:58: daily. [address] divalproex 2020-0 Yes 250mg Take 250 Un francine sodium 9-14 mg by ity of (DEPAKOTE 12:58: mouth 3 [place] ORAL) (three) Medical times Branch daily. aspirin 81 2020-0 Yes 81mg Take 81 mg U nivers mg chewable 9-14 by mouth ity of tablet 12:58: daily. [address] FAMOTIDINE 2020-0 Yes Take 40 mg U nivers ORAL 9-14 base by ity of 12:58: mouth 2 [place] (two) Medical times Branch daily. aspirin 81 2020-0 Yes 81mg Take 81 mg U nivers mg chewable 9-14 by mouth ity of tablet 12:58: daily. [address] LEVOTHYROXI 2020-0 Yes [id number] TAKE 1 Univers NE 50 mcg 3-01 TABLET BY ity o f tablet 00:00: MOUTH [place] 00 TUESDAY Medical THROUGH Branch TUESDAY AND 1 AND 1/2 TABLETS ON TUESDAY, TUESDAY AND TUESDAY LEVOTHYROXI 2020-0 Yes [id number] TAKE 1 Univers NE 50 mcg 3-01 TABLET BY ity o f tablet 00:00: MOUTH [place] 00 Tuesday AND 1 AND 1/2 TABLETS ON TUESDAY, TUESDAY AND TUESDAY LEVOTHYROXI Yes [id number] TAKE 1 Univers NE 50 mcg 3-01 TABLET BY ity o f tablet 00:00: MOUTH [place] 00 Tuesday AND 1 AND 1/2 TABLETS ON TUESDAY, TUESDAY AND TUESDAY LEVOTHYROXI Yes [id number] TAKE 1 Univers NE 50 mcg 3-01 TABLET BY ity o f tablet 00:00: MOUTH [place] 00 Tuesday AND 1 AND 1/2 TABLETS ON TUESDAY, TUESDAY AND TUESDAY LEVOTHYROXI Yes [id number] TAKE 1 Univers NE 50 mcg 3-01 TABLET BY ity o f tablet 00:00: MOUTH [place] 00 Tuesday AND 1 AND 1/2 TABLETS ON TUESDAY, TUESDAY AND TUESDAY LEVOTHYROXI Yes [id number] TAKE 1 Univers NE 50 mcg 3-01 TABLET BY ity o f tablet 00:00: MOUTH [place] 00 Tuesday AND 1 AND 1/2 TABLETS ON TUESDAY, TUESDAY AND TUESDAY LEVOTHYROXI 0 Yes [id number] TAKE 1 Univers NE 50 mcg 3-01 TABLET BY ity o f tablet 00:00: MOUTH [place] 00 Tuesday AND 1 AND 1/2 TABLETS ON TUESDAY, TUESDAY AND TUESDAY LEVOTHYROXI 0 Yes [id number] TAKE 1 Univers NE 50 mcg 3-01 TABLET BY ity o f tablet 00:00: MOUTH [place] 00 Tuesday AND 1 AND 1/2 TABLETS ON TUESDAY, TUESDAY AND TUESDAY LEVOTHYROXI 0 Yes [id number] TAKE 1 Univers NE 50 mcg 3-01 TABLET BY ity o f tablet 00:00: MOUTH [place] 00 Tuesday AND 1 AND 1/2 TABLETS ON TUESDAY, TUESDAY AND TUESDAY LEVOTHYROXI 0 Yes [id number] TAKE 1 Univers NE 50 mcg 3-01 [...] by mouth [facility] - tablet 15:33: daily. [address] carvediloL 2020-0 Yes 3.125mg Take 3.125 [...] by mouth [facility] - tablet 15:33: daily. [address] carvediloL 2020-0 Yes 3.125mg Take 3.125 [...] by ity of (DEPAKOTE 15:48: mouth 3 [place] ORAL) (three) Medical times [place] daily. aspirin 81 2020-0 Yes 81mg Take 81 mg U nivers mg chewable 4-30 by mouth ity of tablet 15:48: daily. [address] Branch FAMOTIDINE 2020-0 Yes Take 40 mg U nivers ORAL 4-30 base by ity of 15:48: mouth 2 [place] (two) Medical times [place] daily. divalproex 2020-0 Yes 250mg Take 250 Un francine sodium 4-30 mg by ity of (DEPAKOTE 15:48: mouth 3 [place] ORAL) 26 (three) Medical times Branch daily. aspirin 81 2020-0 Yes 81mg Take 81 mg U nivers mg chewable 4-30 by mouth ity of tablet 15:48: daily. [place] [address] Medical Branch FAMOTIDINE 2020-0 Yes Take 40 mg U nivers ORAL 4-30 base by ity of 15:48: mouth 2 [place] [address] (two) Medical times Branch daily. divalproex 2020-0 Yes 250mg Take 250 Un francine sodium 4-30 mg by ity of (DEPAKOTE 15:48: mouth 3 [place] ORAL) 26 (three) Medical times Branch daily. aspirin 81 2020-0 Yes 81mg Take 81 mg U nivers mg chewable 4-30 by mouth ity of tablet 15:48: daily. [place] [address] Medical Branch FAMOTIDINE 2020-0 Yes Take 40 mg U nivers ORAL 4-30 base by ity of 15:48: mouth 2 [place] [address] (two) Medical times Branch daily. divalproex 2020-0 Yes 250mg Take 250 Un francine sodium 4-30 mg by ity of (DEPAKOTE 15:48: mouth 3 [place] ORAL) (three) Medical times Branch daily. aspirin 81 2020-0 Yes 81mg Take 81 mg U nivers mg chewable 4-30 by mouth ity of tablet 15:48: daily. [place] [address] Medical Branch FAMOTIDINE 2020-0 Yes Take 40 mg U nivers ORAL 4-30 base by ity of 15:48: mouth 2 [place] [address] (two) Medical times Branch daily. divalproex 2020-0 Yes 250mg Take 250 Un francine sodium 4-30 mg by ity of (DEPAKOTE 15:48: mouth 3 [place] ORAL) (three) Medical times Branch daily. aspirin 81 2020-0 Yes 81mg Take 81 mg U nivers mg chewable 4-30 by mouth ity of tablet 15:48: daily. [place] [address] Medical Branch FAMOTIDINE 2020-0 Yes Take 40 mg U nivers ORAL 4-30 base by ity of 15:48: mouth 2 [place] [address] (two) Medical times Branch daily. divalproex 2020-0 Yes 250mg Take 250 Un francine sodium 4-30 mg by ity of (DEPAKOTE 15:48: mouth 3 [place] ORAL) (three) Medical times Branch daily. aspirin 81 2020-0 Yes 81mg Take 81 mg U nivers mg chewable 4-30 by mouth ity of tablet 15:48: daily. [place] [address] Medical Branch FAMOTIDINE 2020-0 Yes Take 40 mg U nivers ORAL 4-30 base by ity of 15:48: mouth 2 [place] (two) Medical times Branch daily. divalproex 2020-0 Yes 250mg Take 250 Un francine sodium 4-30 mg by ity of (DEPAKOTE 15:48: mouth 3 [place] ORAL) (three) Medical times Branch daily. aspirin 81 2020-0 Yes 81mg Take 81 mg U nivers mg chewable 4-30 by mouth ity of tablet 15:48: daily. [place] [address] Medical Branch FAMOTIDINE 2020-0 Yes Take 40 mg U nivers ORAL 4-30 base by ity of 15:48: mouth 2 [place] (two) Medical times Branch daily. warfarin 2020-0 [...] o f 4 mg tablet 10:44: every [place] 34 evening. Medical Branch warfarin 2020-0 Yes 8mg Take 8 mg Univ ers (COUMADIN) 4-30 by mouth ity o f 4 mg tablet 10:44: every [place] 34 evening. Medical Branch warfarin 2020-0 Yes 8mg Take 8 mg Univ ers (COUMADIN) 4-30 by mouth ity o f 4 mg tablet 10:44: every [place] 34 evening. Medical Branch warfarin 2020-0 Yes 8mg Take 8 mg Univ ers (COUMADIN) 4-30 by mouth ity o f 4 mg tablet 10:44: every [place] 34 evening. Medical Branch Protonix No Notes: Memoria 3-24 Tablet l 12:30: should not [place] 00 be chewed or crushed. (Same as: [...] n [Pepcid] 00 tab, 0 Refill(s), Pharmacy: [facility] #[id number] carvedilol Yes 3.125 mg = M emoria 3.125 mg 3-23 1 tab, l oral tablet 19:09: PEG, Q12H, Master 00 0 Refill(s) Aspirin 81 2019- Yes 81 mg = 1 Me moria MG Enteric 3-23 tab, PO, l Coated 19:09: Q24H, # 30 Fabi nn Tablet 00 tab, 0 Refill(s), Pharmacy: [facility] #[id number] atorvastati Yes 40 mg = 1 M emoria n 40 mg 3-23 tab, PO, l oral tablet 19:09: Bedtime, # [place] 00 30 tab, 0 Refill(s), Pharmacy: [facility] #[id number] Divalproex No 500 mg = 2 M emoria Sodium 250 3-23 tab, PO, l MG Enteric 19:09: Q8H, # 180 H ermann Coated 00 tab, 0 Tablet Refill(s), Pharmacy: [facility] #[id number] Lipitor No Notes: Memoria 3-23 (Same as: l 02:20: Lipitor) Master 00 Saline No Notes: Memoria Flush 0.9% 3-23 (Same as: l 02:00: BD [place] 00 Posiflush) Aspirin 81 No Notes: Do Me moria MG Enteric 3-23 not crush l Coated 00:00: or chew. Master Tablet 00 (Same As: Ecotrin) levothyroxi Yes [...] 3-22 (Same l Oral Tablet 02:00: as:Keppra) [place] [Keppra] 00 Depakote No Notes: Memoria 3-21 [...] ia 3-21 Give with l 14:00: food. [place] 00 (Same As: Coreg) Furosemide No Notes: Memor ia 40 MG Oral 3-21 (Same as: l Tablet 14:00: Lasix) [place] [Lasix] May cause GI upset. Give with [...] as: Protonix) sennosides, No Notes: [place] LONG TERM 3-21 (Same as: l 11:56: Senokot) Lanolin [...] Memoria 3- microgram, l 11:40: PO, Daily, [place] 00 0 Refill(s) Sodium Yes 2 grams, Memoria Chloride 07-06 PEG, TID, l 11:40: 0 Master Refill(s) Furosemide Yes 40 mg = 1 Me moria 40 MG Oral - tab, PO, l Tablet 11:40: Daily, 0 Master [Lasix] 00 Refill(s) sennosides, Yes 8.6 mg =, M emoria LONG TERM 07-06 PEG, PRN, l 11:40: 0 [place] 00 Refill(s) Melatonin No Notes: Memori a [...] 2-29 mcg-Tuesday ity of tablet 00:00: through [place] Medical and 75 mcg Branch on Tuesday, Tuesday and Tuesday levothyroxi 2020-0 Yes Take 50 Uni vers ne 50 mcg 2-29 mcg-Tuesday ity of tablet 00:00: through [place] [facility] and 75 mcg Branch on Tuesday, Tuesday and Tuesday levothyroxi 2020-0 2020- No Take 50 Un francine ne 50 mcg 2-29 03-23 mcg-Tuesday ity of tablet 00:00: 00:00 through [place] 00 :00 Medical and 75 mcg Branch [...] by mouth ity of tablet 00:00: daily. [place] [facility] Branch furosemide 2020-0 Yes 40mg Take 40 mg U nivers 20 mg 2-14 by mouth ity of tablet 00:00: daily. [place] [facility] furosemide 2020-0 Yes 40mg Take 40 mg U nivers 20 mg 2-14 by mouth ity of tablet 00:00: daily. [place] [facility] furosemide 2020-0 Yes 40mg Take 40 mg U nivers 20 mg 2-14 by mouth ity of tablet 00:00: daily. [place] [facility] furosemide 2020-0 Yes 40mg Take 40 mg U nivers 20 mg 2-14 by mouth ity of tablet 00:00: daily. [place] [facility] furosemide 2020-0 Yes 40mg Take 40 mg U nivers 20 mg 2-14 by mouth ity of tablet 00:00: daily. [place] [facility] furosemide 2020-0 Yes 40mg Take 40 mg U nivers 20 mg 2-14 by mouth ity of tablet 00:00: daily. [place] [facility] furosemide 2020-0 Yes 40mg Take 40 mg U nivers 20 mg 2-14 by mouth ity of tablet 00:00: daily. [place] [facility] furosemide 2020-0 Yes 40mg Take 40 mg U nivers 20 mg 2-14 by mouth ity of tablet 00:00: daily. [place] [facility] furosemide 2020-0 Yes 40mg Take 40 mg U nivers 20 mg 2-14 by mouth ity of tablet 00:00: daily. [place] [facility] furosemide 2020-0 Yes 40mg Take 40 mg U nivers 20 mg 2-14 by mouth ity of tablet 00:00: daily. [place] [facility] furosemide 2020-0 Yes 40mg Take 40 mg U nivers 20 mg 2-14 by mouth ity of tablet 00:00: daily. [place] [facility] furosemide 2020-0 Yes 40mg Take 40 mg U nivers 20 mg 2-14 by mouth ity of tablet 00:00: daily. [place] [facility] furosemide 2020-0 Yes 40mg Take 40 mg U nivers 20 mg 2-14 by mouth ity of tablet 00:00: daily. [place] [facility] furosemide 2020-0 Yes 40mg Take 40 mg U nivers 20 mg 2-14 by mouth ity of tablet 00:00: daily. [address] Sodium 2020-0 Yes 1 gm = 1 Memoria Chloride 2-09 tab, PO, l 1000 MG 17:26: TID, # 21 Fabi nn Oral Tablet 00 tab, 0 Refill(s), Pharmacy: [facility] #[id number] Furosemide 2019-0 Yes 20 mg = 1 Me moria 20 MG Oral 2-09 tab, PO, l Tablet 17:26: Daily, # 7 Fabi nn [Lasix] 00 tab, 0 Refill(s), [id number] Furosemide 2020-0 No Notes: Memor ia 20 MG Oral 2-09 (Same as: l Tablet 15:00: Lasix) [place] [Lasix] 00 May cause GI upset. Give with food or milk. 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, Duration: 30 day, Stop date: 06/24/19 9:00:00 CDT Saline 2019-0 No Notes: Memoria Flush 0.9% 2-06 Same as: l 22:00: BD [place] 00 Posiflush Sterile Saline 2019-0 No Notes: Memoria Flush 0.9% 2-06 Same as: l 20:06: BD [place] 00 Posiflush Sterile sodium 2019-0 No Notes: [...] as : l 00:57: Lipase Master 00 11312 Units, Protease 38,000 units, Amylase 98558 units Reglan 2019-0 No Notes: Memoria 2-06 (Same as: l 00:27: Reglan) [place] 00 Lasix 2019-0 No Notes: Memoria 2-05 (Same as: l 22:00: Lasix) Master 00 Seroquel 2019-0 No Notes: Memoria 2-05 (Same as: l 15:53: SEROquel) [place] 00 Sodium 2020-0 No 1 gm, 1 Memoria Chloride 2-05 tab, l 1000 MG 15:00: Route: PO, Herm ruddy Oral Tablet 00 Drug form: TAB, TID, Dosing Weight 81.6, kg, Start date: 05/23/19 9:00:00 SECRETARY RECEPTIONIST, Duration: 30 day, Stop date: 06/21/19 17:00:00 SECRETARY RECEPTIONIST, 0 Sodium 2020-0 No 1 gm, 1 Memoria Chloride 2-04 tab, l 1000 MG 18:28: Route: PO, Herm ruddy Oral Tablet 00 Drug form: TAB, BID, Dosing Weight 81.6, kg, Start date: 05/22/19 12:28:00 SECRETARY RECEPTIONIST, Duration: 30 day, Stop date: 06/21/19 9:00:00 SECRETARY RECEPTIONIST, 0 Sodium 2020-0 No 1,000 mL, Memori a Chloride 2-04 Rate: 40 l 0.9% IV 18:27: ml/hr, [place] 1,000 mL 00 Infuse over: 25 hr, Route: IV, Dosing Weight 81.6 kg, Total Volume: 1,000, Start date: 05/22/19 12:27:00 SECRETARY RECEPTIONIST, Duration: 2 day, Stop date: 05/24/19 12:26:00 SECRETARY RECEPTIONIST, 1.92, m2, 0 sennosides, 2020-0 No Notes: [place] LONG TERM 2-03 (Same as: l 23:00: Senokot) Master 00 Dulcolax 2020-0 No Notes: Memoria Laxative 2-03 (Same As: l 16:21: Dulcolax, Master 00 Correctol) (Do Not Crush) "Do Not Crush" Sodium 2020-0 No 1,000 mL, Memori a Chloride 2-03 Rate: 80 l 0.9% IV 15:42: ml/hr, Master 1,000 mL 00 Infuse over: 12.5 hr, Route: IV, Dosing Weight 81.6 kg, Total Volume: 1,000, Start date: 05/21/19 9:42:00 SECRETARY RECEPTIONIST, Duration: 2 day, Stop date: 05/23/19 9:41:00 SECRETARY RECEPTIONIST, 1.92, m2, 0 Hydralazine 2019-0 No Notes: [place] 2-01 (Same as: l 18:35: Apresoline ) Push over 5 minutes Tylenol 2020-0 No 1,000 mg, Memor ia 2-01 Route: PO, l 15:01: ONCE, Master 00 Dosing Weight 81.6, kg, Priority: NOW, Start date: 05/19/19 9:01:00 SECRETARY RECEPTIONIST, Stop date: 05/19/19 9:01:00 SECRETARY RECEPTIONIST D5W 100 mL 2020-0 No 100 mL, [place] 2-01 Rate: 100 l 12:32: ml/hr, [place] 00 Infuse over: 1 hr, Route: IV, Dosing Weight 81.6 kg, Total Volume: 100, Priority: STAT, Start date: 05/19/19 6:32:00 SECRETARY RECEPTIONIST, Duration: 1 doses or times, Stop date: 05/19/19 7:31:00 SECRETARY RECEPTIONIST, 1.92, m2, 0 D5W 100 mL 2019-0 No 100 mL, [place] 2-01 Rate: 100 l 09:28: ml/hr, Master 00 Infuse over: 1 hr, Route: IV, Dosing Weight 81.6 kg, Total Volume: 100, Priority: STAT, Start date: 05/19/19 3:28:00 SECRETARY RECEPTIONIST, Duration: 1 doses or times, Stop date: 05/19/19 4:27:00 SECRETARY RECEPTIONIST, 1.92, m2, 0 D5W 1,000 2019-0 No 1,000 mL, Mem oria mL 2- Rate: 100 l 02:07: ml/hr, [place] 00 Infuse over: 10 hr, Route: IV, Dosing Weight 81.6 kg, Total Volume: 1,000, Priority: STAT, Start date: 05/18/19 20:07:00 SECRETARY RECEPTIONIST, Duration: 30 day, Stop date: 06/17/19 20:06:00 SECRETARY RECEPTIONIST, 1.92, m2, 0 tolvaptan 2019- No Notes: Memori a 1-31 Same as: l 20:03: Samsca Master 00 Protonix 2019-0 No Notes: Memoria 1-31 Tablet l 15:00: should not Master 00 be chewed or crushed. (Same as: Protonix) POLYETHYLEN 2019-0 No Notes: [place] E GLYCOL - Dissolve l 3350 15:00: in 8 oz of [place] 00 water or juice. (Same as: Miralax) Water 1000 2019-0 No 1,000 ml, Me moria MG/ML - Rate: 50 l Injectable 14:09: ml/hr, Fabi nn Solution 00 Infuse over: 21.7 hr, Route: IV, Dosing Weight 81.6 kg, Total Volume: 1,085.5, Start date: 05/18/19 8:09:00 SECRETARY RECEPTIONIST, Duration: 30 day, Stop date: 06/17/19 8:08:00 SECRETARY RECEPTIONIST, For IMU and ICU use only. See Order Comments!! , 1.92, m2, 0 Thyroxine 2019-0 No Notes: Memori a 1-31 Take 1 l 12:30: hour [place] 00 before or 2 hours after meal; Enteral feeds may interefere with the absorption of this medication .(Same as:Levothr oid, Synthroid) carvedilol 2019- No Notes: Memor ia - Give with l 10:00: food. [place] 00 (Same As: Coreg) lansoprazol 2019- No Notes: [place] e 05-18 Take 1 l 03:00: hour [place] 00 before or 2 hours after meal; Expires in 14 days. Shake well before use. (Same as:Prevaci d) Compound ed Product - formulatio n not commercial ly available* * Saline No Notes: Memoria Flush 0.9% 05-18 Same as: l 03:00: BD Master 00 Posiflush Sterile Seroquel 2019- No Notes: Memoria 05-18 (Same as: l 03:00: SEROquel) [place] Docusate 2019- No Notes: Memoria -30 (Same as: l 23:00: Colace) Master sodium 2019- No Notes: Memoria bicarbonate 05-17 (sodium l 8.4% 22:04: bicarb [place] 00 8.4% (1 mEq/ml) 50 ml VL) carvedilol No Notes: Memor ia -30 Give with l 22:01: food. [place] 00 (Same As: Coreg) Water 1000 No 1,000 ml, Me moria MG/ML 05-17 Rate: 35 l Injectable 18:01: ml/hr, Fabi nn Solution 00 Infuse over: 31 hr, Route: IV, Dosing Weight 81.6 kg, Total Volume: 1,085.5, Start date: 05/17/19 12:01:00 SECRETARY RECEPTIONIST, Duration: 30 day, Stop date: 06/16/19 12:00:00 SECRETARY RECEPTIONIST, For IMU and ICU use only. See Order Comments!! , 1.92, m2, 0 Bisacodyl 2019-0 No Notes: Memori a -30 (Same As: l 18:01: Dulcolax, [place] 00 Bisco-Lax) DDAVP No Notes: Memoria 1-30 [...] as: l 16:56: Mag-Ox 400) Magnesium oxide 445bg=107z g elemental magnesium Dose=____m g magnesium oxide (___mg elemental magnesium) Calcium No Notes: Memoria Gluconate 1-30 WASTE: F/P l 16:56: - Sink; E Master 00 - Municipal Trash Bin Calcium No Notes: Memoria Carbonate 1-30 (Same As: l 500 MG 16:56: Tums) [place] Chewable 00 Calcium Tablet Carbonate 500 mg = 200 mg elemental calcium Dose = mg calcium carbonate ( mg elemental calcium) pantoprazol 2018-04 Yes 40 mg = 1 M emoria e 40 MG 2-24 tab, PO, l Enteric 16:19: Daily, # Quoc n Coated 00 30 tab, 0 Tablet Refill(s), [Protonix] Pharmacy: [id number] lidocaine 2018-04 No Route: IV, Me moria (ANES) 2-23 Drug form: l 22:27: INJ, ONCE, [place] 00 Stop date: 04/09/19 16:27:00 SECRETARY RECEPTIONIST propofol 2018-04 No Route: IV, Mem oria (ANES) 10 2-23 Drug form: l mg 22:05: INJ, Start date: 04/09/19 16:05:00 SECRETARY RECEPTIONIST, Stop date: 04/09/19 17:05:00 SECRETARY RECEPTIONIST Lactated 2018-04 No Route: IV, Mem oria Ringers 2-23 Total l Injection 21:58: Volume: Fabi nn IV (ANES) 00 1,000, 1000 mL Start date: 04/09/19 15:58:00 SECRETARY RECEPTIONIST, Stop date: 04/09/19 16:58:00 SECRETARY RECEPTIONIST Lumason 2018-04 No Notes: Memoria intravenous 2-23 (Same as: l injection 18:39: Lumason) Administer as an IV bolus; do not administer intra-ibeth rially. Follow each injection with an intravenou s flush of 5 mL of NS. Fleet Enema 2018-04 No 12 years, Memoria 2-23 Pediatric l 17:55: Dosing, 0 Master 00 Thyroxine 2018-04 No Notes: Memori a 2-23 Take 1 l 12:30: hour [place] 00 before or 2 hours after meal; Enteral feeds may interefere with the absorption of this medication .(Same as:Levothr oid, Synthroid) Sodium 2018-04 No 1 gm, 1 Memoria Chloride 2-23 tab, l 1000 MG 06:00: Route: [place] Oral Tablet 00 PEG, Drug form: TAB, Q8H, Dosing Weight 81.818, kg, Start date: 04/09/19 0:00:00 SECRETARY RECEPTIONIST, Duration: 30 day, Stop date: 05/08/19 16:00:00 SECRETARY RECEPTIONIST, 0 Coreg 2018-04 No Notes: Memoria 2-23 Give with l 03:00: food. [place] 00 (Same As: Coreg) Lactulose 2018-04 No Notes: Memori a 667 MG/ML 2-23 (Same l Oral 03:00: as:Chronul [place] Solution 00 ac) Sodium 2018-04 No 1,000 mL, Memori a Chloride 2-23 Rate: 75 l 0.9% IV 02:19: ml/hr, Master 1,000 mL 00 Infuse over: 13.3 hr, Route: IV, Dosing Weight 81.818 kg, Total Volume: 1,000, Start date: 04/08/19 20:19:00 SECRETARY RECEPTIONIST, Duration: 30 day, Stop date: 05/08/19 20:18:00 SECRETARY RECEPTIONIST, 2.02, m2, 0 Dextrose 2018-04 No 12.5 gm, Memor ia 50% Syringe 2-23 25 mL, l (D50W) 02:18: Route: IVP, Drug Form: INJ, Dosing Weight 81.818, kg, PRN, PRN Blood Glucose Results, Start date: 04/08/19 20:18:00 SECRETARY RECEPTIONIST, Duration: 30 day, Stop date: 05/08/19 20:17:00 SECRETARY RECEPTIONIST, 0 Glucagon 2018-04 No 1 mg, Memoria 2-23 Route: IM, l 02:18: Drug form: [place] 00 PDR/INJ, PRN, Dosing Weight 81.818, kg, PRN Blood Glucose Results, Start date: 04/08/19 20:18:00 SECRETARY RECEPTIONIST, Duration: 30 day, Stop date: 05/08/19 20:17:00 SECRETARY RECEPTIONIST, 0 Ondansetron 2018-04 No Notes: [place] 2-23 (Same as: l 02:18: Zofran) [...] 0.9% 2-22 (Same as: l 20:55: BD [place] 00 Posiflush) carvedilol 2018-04 Yes 3.125 mg = M emoria 3.125 mg 2-20 1 tab, l oral tablet 19:31: PEG, Q12H, [place] 00 0 Refill(s) levothyroxi 2018-04 Yes 50 Memori a ne 50 mcg 2-20 microgram l (0.05 mg) 19:31: = 1 tab, Herm ruddy oral tablet 00 PEG, Q630AM, 0 Refill(s) Warfarin 2018-04 No 9 mg, PO, [place] 2-18 Daily, 0 l 16:39: Refill(s), [place] 00 [facility] [id number] carvedilol 2018-04 No PO, 0 Memori a 2-18 Refill(s) l 15:55: [place] 00 carvedilol 2018-04 No 6.25 mg = Me moria 6.25 mg 2-18 1 tab, PO, l oral tablet 15:55: Q12H, # 60 [place] 00 tab, 0 Refill(s), [facility] [id number] levothyroxi 2018-04 No See Memori a ne 75 mcg 2-18 Instructio l (0.075 mg) 15:55: ns, 1 tab, H ermann oral tablet 00 PEG, Tuesday, Tuesday and Tuesday (once a day), 0 Refill(s), [facility] [id number] meloxicam 2018-04 Yes 15 mg = 1 [...] Weight 79.1, kg, Start date: 04/03/19 16:00:00 SECRETARY RECEPTIONIST, Duration: 30 day, Stop date: 05/03/19 8:00:00 SECRETARY RECEPTIONIST, 0 Miralax 2018- No Notes: Memoria 2-17 Dissolve l 15:46: in 8 oz of [place] 00 water or juice. (Same as: Miralax) Beneprotein 2018-04 No 1 pkt, [place] 7 gm pkt 2-17 Route: PO, l 13:30: Drug Form: [place] 00 PWDR, Dosing Weight 79.1, kg, BID-Before Meals, Start date: 04/03/19 7:30:00 SECRETARY RECEPTIONIST, Duration: 30 day, Stop date: 05/02/19 16:30:00 SECRETARY RECEPTIONIST NS (Bolus) 2018-04 No 500 mL, [place] IV 2-17 500 ml/hr, l 10:11: Infuse Master 00 Over: 1 hr, Route: IV, 500, Drug form: INJ, ONCE, Priority: STAT, Dosing Weight 79.1 kg, Start date: 04/03/19 4:11:00 SECRETARY RECEPTIONIST, Stop date: 04/03/19 4:11:00 SECRETARY RECEPTIONIST, 0 Sodium 2018-04 No 2 gm, 2 Memoria Chloride 2-17 tab, l 1000 MG 06:00: Route: GT, Herm ruddy Oral Tablet 00 Drug form: TAB, Q8H, Dosing Weight 79.1, kg, Start date: 04/03/19 0:00:00 SECRETARY RECEPTIONIST, Duration: 30 day, Stop date: 05/02/19 16:00:00 SECRETARY RECEPTIONIST, 0 Beneprotein 2018-04 No Notes: [place] 7 gm pkt 2-16 (Same as: l 23:15: Beneprotei [place] n) Beneprotein 2018-04 No Notes: [place] 7 gm pkt 2-16 (Same as: l 22:30: Beneprotei Master n) Albuterol 2018-04 No Notes: Memori a 0.833 MG/ML 2-16 (Same as: l / 17:49: Duoneb) Master Ipratropium 00 Jeannette 0.167 MG/ML Inhalant Solution [DuoNeb] Isolyte S 2018-04 No Notes: Memori a PH-7.4 2-16 (Same as: l (Bolus) IV 10:10: Isolyte S He rmann 00 PH7.4, Normosol-R PH 7.4, Plasma-Lyt e A ) sterile 2018-04 No 20 mL, Memoria water 2-15 Route: l 16:59: MISC, Drug Master 00 Form: INJ, Bedtime, PRN Other -See Comment, Start date: 04/01/19 10:59:00 SECRETARY RECEPTIONIST, Duration: 30 day, Stop date: 05/01/19 10:58:00 SECRETARY RECEPTIONIST, 0 Sodium 2018-04 No 3 gm, 3 Memoria Chloride 2-15 tab, l 1000 MG 15:49: Route: GT, Herm ruddy Oral Tablet 00 Drug form: TAB, Q8H, Dosing Weight 79.1, kg, Priority: NOW, Start date: 04/01/19 9:49:00 SECRETARY RECEPTIONIST, Duration: 30 day, Stop date: 05/01/19 8:00:00 SECRETARY RECEPTIONIST, 0 Zyprexa 2018-04 No Notes: Memoria 2-15 (Same As: l 15:42: ZyPREXA Master IM). Reconstitu te with 2.1 ml sterile water for injection; use within 1 hour after reconstitu tion. For IM use only; do not administer IV or SUB-Q. Zyprexa 2018-04 No 10 mg, Memoria 2-15 Route: IM, l 15:40: Drug form: Master 00 INJ, BID, Dosing Weight 79.1, kg, PRN Agitation, Start date: 04/01/19 9:40:00 SECRETARY RECEPTIONIST, Duration: 30 day, Stop date: 05/01/19 9:39:00 SECRETARY RECEPTIONIST Zyprexa 2018-04 No Notes: Memoria 2-15 (Same as: l 00:07: ZyPREXA) Master 00 ZyPREXA 2018-04 No Notes: Memoria 2-15 (Same as: l 00:07: ZyPREXA) [place] 00 Water 1000 2018-04 No 914.5 mL, Me moria MG/ML 2-14 Rate: 50 l Injectable 06:03: ml/hr, Fabi nn Solution 00 Infuse over: 20 hr, Route: IV, Dosing Weight 79.1 kg, Total Volume: 1,000, Start date: 03/31/19 0:03:00 SECRETARY RECEPTIONIST, Duration: 30 day, Stop date: 04/30/19 0:02:00 SECRETARY RECEPTIONIST, For IMU and ICU use only. See Order Comments!! , 1.99, m2, 0 Seroquel 2018-04 No Notes: Memoria 2-13 (Same as: l 22:23: SEROquel) Master 00 Sodium 2018-04 No 3 gm, 3 Memoria Chloride 2-13 tab, l 1000 MG 18:30: Route: PO, Herm ruddy Oral Tablet 00 Drug form: TAB, Q8H-05, Dosing Weight 79.1, kg, Start date: 03/30/19 12:30:00 SECRETARY RECEPTIONIST, Duration: 30 day, Stop date: 04/29/19 5:00:00 SECRETARY RECEPTIONIST, 0 DDAVP 2018-04 No Notes: Memoria 2-13 (Same As: l 12:00: DDAVP) [place] MEDICATION WASTE Product Size: 4 microgram Product Wasted: ___ microgram Water 1000 2018-04 No 914.5 mL, Me moria MG/ML 2-13 Rate: 50 l Injectable 10:07: ml/hr, Fabi nn Solution 00 Infuse over: 20 hr, Route: IV, Dosing Weight 79.1 kg, Total Volume: 1,000, Start date: 03/30/19 4:07:00 SECRETARY RECEPTIONIST, Duration: 30 day, Stop date: 04/29/19 4:06:00 SECRETARY RECEPTIONIST, For IMU and ICU use only. See Order Comments!! , 1.99, m2, 0 Hydralazine 2018-04 No Notes: [place] 2-12 (Same as: l 22:23: Apresoline Master ) Push over 5 minutes Labetalol 2018-04 No 10 mg, 2 [place] 2-12 mL, Route: l 22:23: IVP, Drug [place] form: INJ, Q15Min, Dosing Weight 79.1, kg, PRN Elevated BP, Start date: 03/29/19 16:23:00 SECRETARY RECEPTIONIST, Duration: 30 day, Stop date: 04/28/19 16:22:00 SECRETARY RECEPTIONIST, 0 heparin 2018-04 No Notes: Memoria sodium, 2-12 porcine l porcine 22:00: heparin Master 2500 UNT/ML 00 Injectable Solution Dextrose 5% 2018-04 No 1,000 mL, M emoria in Water IV 2-12 Rate: 50 l 1,000 mL 16:12: ml/hr, Master 00 Infuse over: 20 hr, Route: IV, Dosing Weight 79.1 kg, Total Volume: 1,000, Start date: 03/29/19 10:12:00 SECRETARY RECEPTIONIST, Duration: 30 day, Stop date: 04/28/19 10:11:00 SECRETARY RECEPTIONIST, 1.99, m2, 0 DDAVP 2018-04 No Notes: Memoria 2-12 (Same As: l 16:00: DDAVP) [place] 00 MEDICATION WASTE Product Size: 4 microgram [...] 00 sennosides, 2018-04 No Notes: [place] LONG TERM 2-12 (Same as: l 15:00: Senokot) Master 00 Docusate 2018-04 No Notes: Memoria 2-12 (Same as: l 15:00: Colace) Master 00 (Do Not Crush) Saline 2018-04 No Notes: Memoria Flush 0.9% 2-12 Same as: l 15:00: BD [place] 00 Posiflush Sterile Thyroxine 2018-04 No Notes: Memori a 2-12 Take 1 l 12:30: hour [place] 00 before or 2 hours after meal; Enteral feeds may interefere with the absorption of this medication .(Same as:Levothr oid, Synthroid) Water 1000 2018-04 No 1,000 mL, Me moria MG/ML 2-12 Rate: 75 l Injectable 10:59: ml/hr, Fabi nn Solution 00 Infuse over: 13.3 hr, Route: IV, Dosing Weight 79.1 kg, Total Volume: 1,000, Priority: STAT, Start date: 03/29/19 4:59:00 SECRETARY RECEPTIONIST, Duration: 30 day, Stop date: 04/28/19 4:58:00 SECRETARY RECEPTIONIST, For IMU and ICU use only. See [...] 2-12 (Same as: l odium 06:19: Phos-NaK) [place] phosphate 00 Each 1.5 250 mg-280 gm pkt has mg-160 mg 250mg oral powder phosphorou for s. Mix reconstitut w/2.5oz ion water and stir. Magnesium 2018-04 No Notes: Memori a Sulfate 2-12 WASTE: F/P l 06:19: - Sink; E [place] - Municipal Trash Bin Magnesium 2018-04 No Notes: Memori a Oxide 2-12 (Same as: l 06:19: Mag-Ox [place] 00 400) Magnesium oxide 615pu=371p g elemental magnesium Dose=____m g magnesium oxide (___mg elemental magnesium) Calcium 2018-04 No Notes: Memoria Gluconate 2-12 WASTE: F/P l 06:19: - Sink; E Master 00 - Municipal Trash Bin Calcium 2018-04 No Notes: Memoria Carbonate -12 (Same As: l 500 MG 06:19: Tums) [place] Chewable 00 Calcium Tablet Carbonate 500 mg = 200 mg elemental calcium Dose = mg calcium carbonate ( mg elemental calcium) Iohexol 2018-04 No 100 mL, Memoria 2-12 Route: l 05:23: IVP, Drug [place] 00 Form: SOLN, Dosing Weight 86.364, kg, ONCALL, STAT, Start date: 03/28/19 23:23:00 SECRETARY RECEPTIONIST, Duration: 1 doses or times, Dose = [...] Rate: 50 l 0.9% IV 04:05: ml/hr, Master 1,000 mL 00 Infuse over: 20 hr, Route: IV, Dosing Weight 86.364 kg, Total Volume: 1,000, Start date: 03/28/19 22:05:00 SECRETARY RECEPTIONIST, Duration: 30 day, Stop date: 04/27/19 22:04:00 SECRETARY RECEPTIONIST, 2.08, m2, 0 Acetaminoph 2018-04 No Notes: Do M emoria en 2-12 not exceed l 04:05: 4 gm/day. Master 00 (Same as: Tylenol) Acetaminoph 2018-04 No Notes: [place] en 325 MG / -12 (Same as: l Hydrocodone 04:05: [place] Fabi nn Bitartrate 00 325/5) Do 5 MG Oral not exceed Tablet 4gm/day of acetaminop hen. Acetaminoph 2018-04 No Notes: Do M emoria en 325 MG / 2-12 not exceed l Hydrocodone 04:05: 4gm/day of [place] Bitartrate 00 acetaminop 10 MG Oral hen. Tablet (Same as: [place] 325/10) Morphine 2018-04 No Notes: Memoria 2-12 (Same l 04:05: as:MORPhin [place] 00 e Sulfate) Bisacodyl 2018-04 No Notes: Memori a 2-12 (Same As: l 04:05: Dulcolax, [place] Bisco-Lax) Ondansetron 2018-04 No Notes: [place] 2-12 (Same as: l 04:05: Zofran) Master MEDICATION WASTE Product Size: 4 mg Product Wasted: ___ mg Benadryl 2018-04 No Notes: Memoria 2-12 (Same as: l 04:05: Benadryl) [place] phenol 2018-04 No Notes: Memoria 2-12 Chlorasept l 04:05: ic [place] Master (Same as: Chlorasept ic, Sore Throat [place]) WASTE: F/P - Black; E - Municipal Trash Bin Melatonin 3 2018-04 No Notes: [place] MG Extended 2-12 (Same as: l Release 04:05: Melatonin) Herm rudyd Tablet 00 Saline 2018-04 No Notes: Memoria Flush 0.9% 2-12 Same as: l 04:05: BD Master 00 Posiflush Sterile Dextrose 2018-04 No 25 gm, 50 [place] 50% Syringe 2-12 mL, Route: l (D50W) 04:05: IVP, Drug Quoc n 00 Form: INJ, Dosing Weight 86.364, kg, PRN, PRN Abnormal Lab Result, Start date: 03/28/19 22:05:00 SECRETARY RECEPTIONIST, Duration: 30 day, Stop date: 04/27/19 22:04:00 SECRETARY RECEPTIONIST, 0 Regular 2018-04 No Notes: Memoria Insulin, [...] l 1000 MG 00:00: Route: PO, Herm urddy Oral Tablet 00 Drug form: TAB, Q6H, Dosing Weight 90.9, kg, Start date: 03/09/19 18:00:00 SECRETARY RECEPTIONIST, Stop date: 04/13/19 12:00:00 SECRETARY RECEPTIONIST, 0 Melatonin 3 2018-04 Yes 3 mg = 1 Me moria MG Extended -22 tab, PO, l Release 19:44: Bedtime, Quoc n Tablet 00 PRN Sleep, 0 Refill(s) Melatonin 3 2018-04 No 3 mg, 1 Mem oria MG Extended 05-09 tab, l Release 19:43: Route: PO, Herm ruddy Tablet 00 Dosing Weight 90.9, kg, Bedtime, PRN Sleep, Start date: 03/09/19 13:43:00 SECRETARY RECEPTIONIST, Duration: 30 day, Stop date: 04/08/19 13:42:00 SECRETARY RECEPTIONIST Sodium 2018-04 No 3 gm, Memoria Chloride 05-09 Route: l 1000 MG 19:00: PEG, TID, Fabi nn Oral Tablet 00 Dosing Weight 90.9, kg, Start date: 03/09/19 13:00:00 SECRETARY RECEPTIONIST, Duration: 30 day, Stop date: 04/08/19 9:00:00 SECRETARY RECEPTIONIST Imodium A-D 2018-04 Yes 1 mg, PO, M emoria 05-09 Q6H, PRN l 18:50: Diarrhea, [place] 00 0 Refill(s) Lanolin 2018-04 No Notes: [...] tab, l oral tablet 17:06: PEG, Q12H, [place] 00 0 Refill(s) Levetiracet 2018-04 Yes 500 [...] 22 tab, GT, l tablet 14:27: Q6H, Master 00 NEEDED FOR ANXIETY, 0 Refill(s) Bisacodyl 2018-04 No 10 mg = 1 Mem oria 10 MG 05-09 supp, DE, l Rectal 14:27: Q24H, Master Suppository 00 NEEDED, 0 [Dulcolax] Refill(s) heparin 2018-04 No 2,500 unit [place] sodium, 05-09 = 1 mL, l porcine 14:27: SUB-Q, [place] 2500 UNT/ML 00 Q8H, DVT Injectable PROPHYLAXI Solution S, # 10 vial, 0 Refill(s) Albuterol 2018-04 No 3 mL, NEB, Me moria 0.833 MG/ML 05-09 Q4H, l / 14:27: NEEDED, 0 Master Ipratropium 00 Refill(s) Jeannette 0.167 MG/ML Inhalant Solution [DuoNeb] Lactulose 2018-04 [...] e 1-22 Take 1 l 13:30: hour [place] 00 before or 2 hours after meal; Expires in 14 days. Shake well before use. (Same as:Prevaci d) Compound ed Product - formulatio n not commercial ly available* * lansoprazol 2018-04 No Notes: [place] e 1-22 Take 1 l 06:25: hour Master 00 before or 2 hours after meal; Expires in 14 days. Shake well before use. (Same as:Prevaci d) Compound ed Product - formulatio n not commercial ly available* * Melatonin 2018-04 No Notes: Memori a 1-22 (Same as: l 06:24: Melatonin) [place] 00 heparin 2018-04 No Notes: Memoria sodium, 1-21 porcine l porcine 05:55: heparin [place] 2500 UNT/ML 00 Injectable Solution Docusate 2018-04 No Notes: Memoria Sodium 50 1-20 (Same as l MG / 15:00: Senokot-S) [place] sennosides, 00 Equiv. to LONG TERM 8.6 MG Kelsey-Colac Oral Tablet e. Levetiracet 2018-04 No Notes: [place] am 100 1-20 Same as: l MG/ML Oral 15:00: Keppra Fabi nn Solution 00 [Keppra] carvedilol 2018-04 No Notes: Memor ia 1-20 Give with l 15:00: food. [place] 00 (Same As: Coreg) Beneprotein 2018-04 No Notes: [place] 7 gm pkt 1-20 (Same as: l 13:30: Beneprotei [place] 00 n) Thyroxine 2018-04 No Notes: Memori a 1-20 Take 1 l 12:30: hour [place] 00 before or 2 hours after meal; Enteral feeds may interefere with the absorption of this medication .(Same as:Levothr oid, Synthroid) Levetiracet 2018-04 No Notes: [place] am 1-20 Same as l 03:00: Keppra [place] 00 Mix with 100 mL NS, LR or D5W MEDICATION WASTE Product Size: 500 mg Product Wasted: ___ mg Docusate 2018-04 No Notes: Memoria 1-20 (Same as: l 03:00: Colace) [place] 00 (Do Not Crush) sennosides, 2018-04 No Notes: [place] LONG TERM 1-20 (Same as: l 03:00: Senokot) [place] 00 Saline 2018-04 No Notes: Memoria Flush 0.9% 1-20 (Same as: l 03:00: BD Master 00 Posiflush) Sodium 2018-04 No 1,000 mL, Memori a Chloride 1-20 Rate: 50 l 0.9% IV 02:28: ml/hr, Master 1,000 mL 00 Infuse over: 20 hr, Route: IV, Dosing Weight 90.909 kg, Total Volume: 1,000, Start date: 03/06/19 20:28:00 SECRETARY RECEPTIONIST, Duration: 30 day, Stop date: 04/05/19 20:27:00 SECRETARY RECEPTIONIST, 2.1, m2, 0 Acetaminoph 2018-04 No Notes: Do M emoria en 1-20 not exceed l 02:28: 4 gm/day. [place] 00 (Same as: Tylenol) Bisacodyl 2018-04 No Notes: Memori a 1-20 (Same As: l 02:28: Dulcolax, [place] 00 Bisco-Lax) Ondansetron 2018-04 No Notes: [place] 1-20 (Same as: l 02:28: Zofran) [place] 00 MEDICATION WASTE Product Size: 4 mg Product Wasted: ___ mg Saline 2018-04 No Notes: Memoria Flush 0.9% 1-20 (Same as: l 02:28: BD [place] 00 Posiflush) Dextrose 2018-04 No 25 gm, 50 [place] 50% Syringe 1-20 mL, Route: l ([id number]) 02:28: IVP, Drug Quoc n 00 Form: INJ, Dosing Weight 90.909, kg, PRN, PRN Abnormal Lab Result, Start date: 03/06/19 20:28:00 SECRETARY RECEPTIONIST, Duration: 30 day, Stop date: 04/05/19 20:27:00 SECRETARY RECEPTIONIST, 0 Regular 2018-04 No Notes: Memoria Insulin, [...] emoria en 04-30 0 l 21:13: Refill(s) Master 00 carvedilol 2018-04 Yes 3.125 mg = M emoria 3.125 mg 04-30 1 tab, GT, l oral tablet 21:13: Q12H, 0 Her addison 00 Refill(s) cefepime 2018-04 Yes 2 gm, IVP, Mem oria 04-30 [id number], 0 l 21:13: Refill(s) Master 00 heparin [...] e 13 BID-Before l 21:13: Meals, 0 [place] 00 Refill(s) Miralax 2018-04 No Notes: Memoria [...] Blood Glucose Results, Start date: 02/27/19 20:16:00 SECRETARY RECEPTIONIST, Duration: 30 day, Stop date: 03/29/19 20:15:00 SECRETARY RECEPTIONIST, 0 Glucagon 2018-04 No 1 mg, Memoria 04-30 Route: IM, l 02:16: Drug form: PDR/INJ, PRN, Dosing Weight 87.9, kg, PRN Blood Glucose Results, Start date: 02/27/19 20:16:00 SECRETARY RECEPTIONIST, Duration: 30 day, Stop date: 03/29/19 20:15:00 SECRETARY RECEPTIONIST, 0 Insulin 2018-04 No Notes: Memoria Lispro - (Same as: l 02:16: Humalog) Roll in palms of hands gently; Do not shake vigorously . WASTE: F/P - Black; E - Municipal Trash Bin Stable for 28 days at room temperatur e. 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, Stop date: 02/25/19 7:05:00 SECRETARY RECEPTIONIST, 0 Seroquel 2019-1 No Notes: Memoria 1-10 (Same as: l 03:00: SEROquel) Zofran 2018-04 No Notes: Memoria 04-26 (Same as: l 23:11: Zofran) MEDICATION WASTE Product Size: 4 mg Product Wasted: ___ mg Thyroxine 2018-04 No 50 Memoria - microgram, l 12:30: Route: PO, Drug form: TAB, Q630AM, Dosing Weight 87.9, kg, Start date: 02/24/19 6:30:00 SECRETARY RECEPTIONIST, Duration: 30 day, Stop date: 03/25/19 6:30:00 SECRETARY RECEPTIONIST pantoprazol 2018-04 No 40 mg, Rito [place] e 04-26 Route: l 03:00: PEG, Q12H, Dosing Weight 87.9, kg, Start date: 02/23/19 21:00:00 SECRETARY RECEPTIONIST, Duration: 30 day, Stop date: 03/25/19 9:00:00 SECRETARY RECEPTIONIST cefepime 2018-04 No Notes: Memoria 04-26 (Same as: l 02:00: Maxipime) MEDICATION WASTE Product Size: 2000 mg Product Wasted: ___ mg normal 2018-04 No 1,000 mL, Memori a saline 0.9% 04-26 Rate: l IV 1,000 mL 00:49: 1,000 Fabi nn 00 ml/hr, Infuse over: 1 hr, Route: IV, Dosing Weight 87.9 kg, Total Volume: 1,000, Start date: 02/23/19 18:49:00 SECRETARY RECEPTIONIST, Duration: 1 doses or times, Stop date: 02/23/19 19:48:00 SECRETARY RECEPTIONIST, 2.05, m2, 0 normal 2018-04 No 1,000 mL, Memori a saline 0.9% 04-25 Rate: l IV 1,000 mL 23:09: 1,000 Fabi nn 00 ml/hr, Infuse over: 1 hr, Route: IV, Dosing Weight 87.9 kg, Total Volume: 1,000, Start date: 02/23/19 17:09:00 SECRETARY RECEPTIONIST, Duration: 1 doses or times, Stop date: 02/23/19 18:08:00 SECRETARY RECEPTIONIST, 2.05, m2, 0 Prevacid 2018-04 No Notes: Memoria -08 Take 1 l 22:30: hour Master 00 before or 2 hours after meal; Expires in 14 days. Shake well before use. (Same as:Prevaci d) Compound ed Product - formulatio n not commercial ly available* * Beneprotein 2018-04 No Notes: Rito [place] 7 gm pkt 04-25 (Same as: l 22:30: Beneprotei [place] 00 n) sugammadex 2018-04 No Notes: Memor ia 04-25 (Same as: l 20:19: Bridion) Master 00 Flagyl 2018-04 No Notes: Memoria 04-25 (Same as: l 18:00: Flagyl) Avoid alcohol. ondansetron 2018-04 No Route: IV, Memoria (ANES) 04-25 Drug form: l 15:15: INJ, ONCE, Stop date: 02/23/19 9:15:00 SECRETARY RECEPTIONIST ePHEDrine 2018-04 No Route: IV, Me moria (ANES) 04-25 Drug form: l 15:06: INJ, ONCE, Stop date: 02/23/19 9:06:00 SECRETARY RECEPTIONIST ANES 2018-04 No 0.625 mg, Memoria Enalaprilat 04-25 Route: l 14:41: IVP, [place] 00 Q5Min, Dosing Weight 87.9, kg, PRN Elevated BP, Start date: 02/23/19 8:41:00 SECRETARY RECEPTIONIST, Duration: 4 doses or times, Stop date: Limited # of times Hydralazine 2018-04 No 10 mg, Rito [place] 04-25 Route: l 14:41: IVP, Master 00 Q20Min, Dosing Weight 87.9, kg, PRN Elevated BP, Start date: 02/23/19 8:41:00 SECRETARY RECEPTIONIST, Duration: 2 doses or times, Stop date: Limited # of times esmolol 2018-04 No 10 mg, Memoria 04-25 Route: l 14:41: IVP, [place] 00 Q5Min, Dosing Weight 87.9, kg, PRN Other -See Comment, Start date: 02/23/19 8:41:00 SECRETARY RECEPTIONIST, Duration: 5 doses or times, Stop date: Limited # of times Labetalol 2018-04 No 10 mg, Memori a 04-25 Route: l 14:41: IVP, Master 00 Q5Min, Dosing Weight 87.9, kg, PRN Elevated BP, Start date: 02/23/19 8:41:00 SECRETARY RECEPTIONIST, Duration: 5 doses or times, Stop date: Limited # of times Acetaminoph 2018-04 No 1,000 mg, M emoria en 04-25 Route: PO, l 14:41: Drug form: [place] 00 TAB, ONCE, Dosing Weight 87.9, kg, PRN Pain Score 1-3, Start date: 02/23/19 8:41:00 SECRETARY RECEPTIONIST Oxycodone 2018-04 No 5 mg, Memoria 04-25 Route: NG, l 14:41: Drug form: Master 00 LIQ, Q4H, Dosing Weight 87.9, kg, PRN Pain Score 4-6, Start date: 02/23/19 8:41:00 SECRETARY RECEPTIONIST, Duration: 30 day, Stop date: 03/25/19 8:40:00 SECRETARY RECEPTIONIST Flumazenil 2018-04 No 0.2 mg, Rito [place] 04-25 Route: l 14:41: IVP, PRN, Dosing Weight 87.9, kg, PRN Benzodiaze pine Reversal, Initial dose, Start date: 02/23/19 8:41:00 SECRETARY RECEPTIONIST, Duration: 30 day, Stop date: 03/25/19 8:40:00 SECRETARY RECEPTIONIST Naloxone 2018-04 No 0.4 mg, Memori a 04-25 Route: l 14:41: IVP, Master 00 Q2MIN, Dosing Weight 87.9, kg, PRN Narcotic Reversal, Start date: 02/23/19 8:41:00 SECRETARY RECEPTIONIST, Duration: 8 doses or times, Stop date: Limited # of times Ondansetron 2018-04 No 4 mg, Memor ia 04-25 Route: l 14:41: IVP, ONCE, Dosing Weight 87.9, kg, PRN Nausea & Vomiting, Start date: 02/23/19 8:41:00 SECRETARY RECEPTIONIST propofol 2018-04 No Route: IV, Mem oria (ANES) 04-25 Drug form: l 14:35: INJ, ONCE, Stop date: 02/23/19 8:35:00 SECRETARY RECEPTIONIST rocuronium 2018-04 No Route: IV, Nathalie emoria (ANES) 04-25 Drug form: l 14:35: INJ, ONCE, Stop date: 02/23/19 8:35:00 SECRETARY RECEPTIONIST fentaNYL 2018-04 No Route: IV, Mem oria (ANES) 04-25 Drug form: l 14:35: INJ, ONCE, Stop date: 02/23/19 8:35:00 SECRETARY RECEPTIONIST phenylephri 2018-04 No Route: IV, Memoria ne (ANES) 04-25 Drug form: l 14:35: INJ, ONCE, [place] 00 Stop date: 02/23/19 8:35:00 SECRETARY RECEPTIONIST ceFAZolin 2018-04 No Route: IV, moria (ANES) 04-25 Drug form: l 14:30: INJ, ONCE, Stop date: 02/23/19 8:30:00 SECRETARY RECEPTIONIST Adult 2018-04 No Notes: Memoria Parenteral 04-25 [...] Weight 87.9 kg, Start date: 02/22/19 14:15:00 SECRETARY RECEPTIONIST, Stop date: 02/22/19 14:15:00 SECRETARY RECEPTIONIST, 0 Tylenol 2018-04 No Notes: Max [place] - acetaminop l 20:13: hen = 4000 Master 00 mg/day (4 gm/day). (Same as: Tylenol) Thyroxine 2018-04 No Notes: Memori a 1- (Same as: l 16:30: Synthroid) Reconstitu te with 5ml of NS. Final concentrat ion = 20 micrograms /ml. Use immediatel y after reconstitu tion and discard remaining solution. Zosyn 2018-04 No Notes: Memoria 1-07 (Same as: l 16:00: Zosyn) [place] 00 Dosing based on Piperacill in component MEDICATION WASTE Product Size: 3375 mg Product Wasted: ___ mg Bisacodyl 2018-04 No Notes: Memori a 04-24 (Same As: l 09:59: Dulcolax, Master Bisco-Lax) Adult 2018-04 No Notes: Memoria Parenteral [...] Weight 87.9, kg, Start date: 02/21/19 7:30:00 SECRETARY RECEPTIONIST, Duration: 30 day, Stop date: 03/22/19 7:30:00 SECRETARY RECEPTIONIST Protonix 2018-04 No Notes: For Mem oria 04-23 IV push l 03:00: reconstitu [place] 00 te with 10 ml 0.9% sodium chloride and push over 2 minutes. (Same as: Protonix) Morphine 2018-04 No Notes: Memoria 04-23 (Same l 02:19: as:MORPhin Master 00 e Sulfate) Protonix 2018-04 No Notes: Memoria - Same as: l 22:30: Protonix [place] 00 Mix in 5 mL apple juice or applesauce for oral & 10mL apple juice for NG tube Vimpat 2018-04 No Notes: Memoria -05 Same as: l 15:00: Vimpat Master 00 Labetalol 2018-04 No 20 mg, 4 [place]ito [place] 1-05 mL, Route: l 07:35: IVP, Drug [place] 00 form: INJ, Q2H, Dosing Weight 87.9, kg, PRN Other -See Comment, Start date: 02/20/19 1:35:00 SECRETARY RECEPTIONIST, Duration: 30 day, Stop date: 03/22/19 1:34:00 SECRETARY RECEPTIONIST, 0 Vimpat 2018-04 No Notes: Memoria - Same as: l 00:04: Vimpat [place] 00 MEDICATION WASTE Product Size: 200 mg Product Wasted: ___ mg Fentanyl 2018-04 No Notes: Memoria 04-22 (Same as: l 00:04: Sublimaze) Master 00 Preservat kemal free. Versed 2018-04 No Notes: Memoria 04-22 (Same as: l 00:04: Versed) [place] 00 MEDICATION WASTE Product Size: 2 mg Product Wasted: ___ mg Vimpat 2018-04 No Notes: Memoria 04-21 Same as: l 03:00: Vimpat [place] 00 MEDICATION WASTE Product Size: 200 mg Product Wasted: ___ mg heparin 2018-04 No Notes: Memoria sodium, 04-20 porcine l porcine 22:00: heparin [place] 2500 UNT/ML 00 Injectable Solution Vimpat + [...] PRN Hypertensi on, Start date: 02/18/19 11:40:00 SECRETARY RECEPTIONIST, Duration: 3 doses or times, Stop date: Limited # of times, 0 Thyroxine 2018-04 No Notes: Memori a - (Same as: l 15:45: Synthroid) [place] 00 Reconstitu te with 5ml of NS. Final concentrat ion = 20 micrograms /ml. Use immediatel y after reconstitu tion and discard remaining solution. Dexmedetomi 2018-04 No Notes: Use Memoria dine 1-03 the l 15:43: following Master cdm for [id number]. Isolyte S 2018-04 No Notes: Memori a [...] Duration: 30 day, Stop date: 03/19/19 16:30:00 SECRETARY RECEPTIONIST, 2.05, m2, 0 normal 2018-04 No 2,000 mL, Memori a saline 0.9% 04-19 Rate: 50 l IV 2,000 mL 18:17: ml/hr, Herm ruddy Infuse over: 40 hr, Route: IV, Dosing Weight 87.9 kg, Total Volume: 2,000, Start date: 02/17/19 13:17:00 CDT, Duration: 1 doses or times, Stop date: 02/18/19 13:16:00 SECRETARY RECEPTIONIST, 2.05, m2, 0 Ativan 2018-04 No Notes: Memoria 04-19 (Same as: l 17:15: Ativan) Master Morphine 2018-04 No Notes: Memoria 04-19 (Same l 16:58: as:MORPhin [place] 00 e Sulfate) Valproic 2018-04 No 1,500 mg, Rito [place] Acid 100 04-19 Route: IV, l MG/ML 13:41: ONCE, [place] Injectable 00 Dosing Solution Weight 89, kg, Start date: 02/17/19 8:41:00 CDT, Stop date: 02/17/19 8:41:00 CDT Valproic 2018-04 No 1,500 gm, Rito [place] Acid 100 04-19 Route: IV, l MG/ML 13:11: ONCE, [place] Injectable 00 Dosing Solution Weight 89, kg, Priority: STAT, Start date: 02/17/19 8:11:00 CDT, Stop date: 02/17/19 8:11:00 CDT Labetalol 2018-04 No 10 mg, 2 Rito [place] 1-02 mL, Route: l 13:10: IVP, Drug form: INJ, Q15Min, Dosing Weight 89, kg, PRN Hypertensi on, Start date: 02/17/19 8:10:00 CDT, Duration: 3 doses or times, Stop date: 03/17/19 0:00:00 SECRETARY RECEPTIONIST, 0 NS 1,000 mL 2018-04 No 1,000 mL, M emoria 04-19 Rate: 40 l 08:00: ml/hr, [place] 00 Infuse over: 25 hr, Route: IV, Dosing Weight 89 kg, Total Volume: 1,000, Start date: 02/17/19 3:00:00 CDT, Duration: 30 day, Stop date: 03/19/19 2:59:00 SECRETARY RECEPTIONIST, 2.06, m2, 0 NS (Bolus) 2018-04 No [...] Duration: 30 day, Stop date: 03/19/19 2:46:00 SECRETARY RECEPTIONIST, 2.06, m2, 0 Norepinephr 2018-04 No Notes: Not Memoria ine 04-19 for direct l 07:46: administra [place] 00 tion - DILUTE. Protect from light. (Same as:Levophe d). Administer by either central venous catheter or peripheral ly-inserte d central catheter (PICC) line. Lidocaine 2018-04 No Notes: Memori a Hydrochlori 04-19 (Same as: l de 0.02 03:53: Uro-Jet) Quoc n MG/MG 00 Topical Gel Dexmedetomi 2018-04 No Notes: Use Memoria dine 04-18 the l 21:54: following [place] 00 cdm for [id number]. heparin 2018-04 No Notes: Memoria sodium, 04-18 porcine l porcine 21:00: heparin [place] 2500 UNT/ML 00 Injectable Solution propofol 10 2018-04 No Notes: If M emoria mg/mL 04-18 Diprivan - l (Titrate.) 19:45: change Fabi nn IV 1,000 mg 00 bottle & tubing every 12 hr Per state nursing law propofol can only be given by a nurse if patient is intubated or being intubated (unless the nurse is a RETAIL DIRECTOR). Same as: Diprivan Albuterol 2018-04 No Notes: SEE Me moria 0.83 MG/ML 04-18 RT l Inhalant 08:19: DOCUMENTAT Her addison Solution 00 ION (Same as: Proventil) Albuterol 2018-04 No Notes: Memori a 0.833 MG/ML 04-18 (Same as: l / 07:00: Duoneb) [place] Ipratropium 00 Jeannette 0.167 MG/ML Inhalant Solution [DuoNeb] Sodium 2018-04 No Notes: SEE Memor ia Chloride 3% 04-18 RT l inhalation 07:00: DOCUMENTAT H ermann solution 00 ION (Same as: Hypertonic Saline 3%, Inhalation ) Coreg 2018-04 No 3.125 mg, Memoria 04-18 Route: GT, l 02:00: Drug form: [place] 00 TAB, Q12H, Dosing Weight 89, kg, Start date: 02/15/19 21:00:00 CDT, Duration: 30 day, Stop date: 03/17/19 9:00:00 SECRETARY RECEPTIONIST normal 2018-04 No 1,000 mL, Memori a saline 0.9% Rate: 50 l IV 1,000 mL 21:50: ml/hr, Herm ruddy 00 Infuse over: 20 hr, Route: IV, Dosing Weight 89 kg, Total Volume: 1,000, Start date: 02/15/19 16:50:00 CDT, Duration: 30 day, Stop date: 03/17/19 16:49:00 SECRETARY RECEPTIONIST, 2.06, m2, 0 Versed 2018-04 No Notes: Memoria 0-31 (Same as: l 19:25: Versed) [place] 00 MEDICATION WASTE Product Size: 2 mg Product Wasted: ___ mg Coreg 2018-04 No Notes: Memoria 0-31 Give with l 14:42: food. [place] 00 (Same As: Coreg) Docusate 2018-04 No Notes: Memoria 0-31 (Same as: l 14:00: Colace) [place] 00 sennosides, 2018-04 No Notes: Rito [place] LONG TERM 0-31 (Same as: l 14:00: Senokot) Master Vitamin K1 2018-04 No Notes: Memor ia [...] a 0-31 Take 1 l 11:30: hour [place] 00 before or 2 hours after meal; Enteral feeds may interefere with the absorption of this medication .(Same as:Levothr oid, Synthroid) ocular 2018-04 No Notes: Memoria lubricant 0-31 (Same as: l 11:00: Lacri-Lube [place] 00 , Puralube, Duratears Naturale, Artificial Tears, and Tears Again ) NS 1,000 mL 2018-04 No 1,000 mL, M emoria 0-31 Rate: 75 l 09:42: ml/hr, [place] 00 Infuse over: 13.3 hr, Route: IV, Dosing Weight 89 kg, Total Volume: 1,000, Start date: 02/15/19 4:42:00 CDT, Duration: 30 day, Stop date: 03/17/19 4:41:00 SECRETARY RECEPTIONIST, 2.06, m2, 0 Acetaminoph 2018-04 No Notes: Max Memoria en 0-31 acetaminop l 09:39: hen = [place] 00 4000mg/day (4 gm/day). (Same as: Tylenol) Dextrose 2018-04 No 12.5 gm, Memor ia 50% Syringe 0-31 25 mL, l 09:37: Route: IVP, Drug Form: INJ, Dosing Weight 89, kg, PRN, PRN Blood Glucose Results, Start date: 02/15/19 4:37:00 CDT, Duration: 30 day, Stop date: 03/17/19 3:36:00 SECRETARY RECEPTIONIST, 0 Glucagon 2018-04 No 1 mg, Memoria 0-31 Route: IM, l 09:37: Drug form: PDR/INJ, PRN, Dosing Weight 89, kg, PRN Blood Glucose Results, Start date: 02/15/19 4:37:00 CDT, Duration: 30 day, Stop date: 03/17/19 3:36:00 SECRETARY RECEPTIONIST, 0 Insulin 2018-04 No Notes: Memoria regular 0-31 (Same as: l 09:37: Humulin R) Roll in palms of hands gently; Do not shake vigorously . WASTE: F/P - Black; E - [employer] Trash Bin Stable for 31 days at room temperatur e Expires in days from ____Date Potassium 2018-04 No Notes: Memori a Chloride 0-31 (Same as: l 09:37: KCL) Infuse no faster than 10 mEq/hr if given peripheral ly. sodium 2018-04 No Notes: Memoria phosphate 0-31 Infuse l 09:37: over 4 Master 00 hour. Do not infuse phosphorou s concurrent ly in the same line as TPN or IVF that contains calcium. For double lumen central lines, phosphorou s may be infused in a separate lumen from TPN. potassium 2018-04 No Notes: Memori a phosphate 0-31 (Same as: l 09:37: K [place] 00 Phosphate. ) Do not infuse phosphorou s concurrent ly in the same line as TPN or IVF that contains calcium. For double lumen central lines, phosphorou s may be infused in a separate lumen from TPN. 1 mMol phoshate has 1.47 mEq potassium Infuse over 4 hours potassium 2018-04 No Notes: Memori a phosphate-s 0-31 (Same as: l odium 09:37: Phos-NaK) [place] phosphate 00 Each 1.5 250 mg-280 gm pkt has mg-160 mg 250mg oral powder phosphorou for s. Mix reconstitut w/2.5oz ion water and stir. Magnesium 2018-04 No Notes: Memori a Sulfate 0-31 WASTE: F/P l 09:37: - Sink; E Master 00 - Municipal Trash Bin Magnesium 2018-04 No Notes: Memori a Oxide 0-31 (Same as: l 09:37: Mag-Ox [place] 00 400) Magnesium oxide [id number] g elemental magnesium Dose=____m g magnesium oxide (___mg elemental magnesium) Calcium 2018-04 No Notes: Memoria Gluconate 0-31 WASTE: F/P l 09:37: - Sink; E Master - Municipal Trash Bin Calcium 2018-04 No Notes: Memoria Carbonate 0-31 (Same As: l 500 MG 09:37: Tums) [place] Chewable 00 Calcium Tablet Carbonate 500 mg [...] moria IV 0-31 1,000 l 05:51: ml/hr, [place] 00 Infuse Over: 1 hr, Route: IV, [...] 0-31 Drug form: l 00:29: INJ, ONCE, [place] 00 Stop date: 02/14/19 19:29:00 CDT phenylephri 2018-04 No Route: IV, Memoria ne (ANES) 0-31 Drug form: l 00:29: INJ, ONCE, Master 00 Stop date: 02/14/19 19:29:00 CDT fentaNYL 2018-04 No Route: IV, Mem oria (ANES) 0-31 Drug form: l 00:14: INJ, ONCE, Master Stop date: 02/14/19 19:14:00 CDT ceFAZolin 2018-04 No Route: IV, Me moria (ANES) 0-31 Drug form: l 00:04: INJ, ONCE, Master Stop date: 02/14/19 19:04:00 CDT Sodium 2018-04 [...] Memoria 0-30 Route: l 23:01: IVP, Drug [place] Form: SOLN, Dosing Weight 90, kg, ONCALL, STAT, Start date: 02/14/19 18:01:00 CDT, Duration: 1 doses or times, Dose = 2.2ml/kg, Max dose = 100ml -- "To be infused by Radiology Staff ONLY" Factor 2018-04 No Route: IV, Memor ia 2-7-9-10 0-30 Drug form: l Prothrombin 22:43: INJ, ONCE, [place] Complex 00 kg, Concentrate Priority: 2,100 unit STAT, + empty Start container 1 date: ea 02/14/19 17:43:00 CDT, Stop date: 02/14/19 17:43:00 CDT, 0 Vitamin K 1 2018-04 No 10 mg, Rito ir[place]a 0-30 Route: l 22:43: IVPB, Drug [place] form: SOLN, ONCE, kg, Priority: STAT, Start date: 02/14/19 17:43:00 CDT, Stop date: 02/14/19 17:43:00 CDT Saline 2018-04 No 10 mL, Memoria Flush 0.9% 0-30 Route: l 22:05: IVP, Drug Master Form: INJ, kg, PRN, PRN Line Flush, Start date: 02/14/19 17:05:00 CDT, Duration: 30 day, Stop date: 03/16/19 16:04:00 SECRETARY RECEPTIONIST, 0 warfarin Yes 8mg Take 8 mg [...] 8-16 mcg-Tuesday ity of tablet 00:00: through [place] [facility] and 75 mcg Branch on Tuesday, Tuesday and Tuesday levothyroxi Yes Take 50 Uni vers ne 50 mcg 8-16 mcg-Tuesday ity of tablet 00:00: through [place] [facility] and 75 mcg Branch on Tuesday, Tuesday and Tuesday levothyroxi Yes Take 50 Uni vers ne 50 mcg 8-16 mcg-Tuesday ity of tablet 00:00: through Medical and 75 mcg Branch on Tuesday, Tuesday and Tuesday levothyroxi 2020- No Take 50 Un francine ne 50 mcg 8-16 02-29 mcg-Tuesday ity of tablet 00:00: 00:00 through [place] 00 : Medical and 75 mcg Branch [...] o f 4 mg tablet 14:57: every [place] 07 evening. Medical Branch carvedilol Yes 3.125mg [...] (two) Medical times Branch daily. lisinopril Yes [id number] 5mg Take 5 mg Univers 5 mg tablet 2-12 by mouth ity of 00:00: daily. [facility] lisinopril Yes [id number] 5mg Take 5 mg Univers 5 mg tablet 2-12 by mouth ity of 00:00: daily. [facility] lisinopril Yes [id number] 5mg Take 5 mg Univers 5 mg tablet 2-12 by mouth ity of 00:00: daily. [facility] lisinopril Yes [id number] 5mg Take 5 mg Univers 5 mg tablet 2-12 by mouth ity of 00:00: daily. [facility] Branch lisinopril 2018-0 Yes [id number] 5mg Take 5 mg Univers 5 mg tablet 2-12 by mouth ity of 00:00: daily. [facility] lisinopril 2017-0 Yes [id number] 5mg Take 5 mg Univers 5 mg tablet 2-12 by mouth ity of 00:00: daily. [facility] lisinopril 2017-0 Yes [id number] 5mg Take 5 mg Univers 5 mg tablet 2-12 by mouth ity of 00:00: daily. [facility] lisinopril 2017-0 Yes [id number] 5mg Take 5 mg Univers 5 mg tablet 2-12 by mouth ity of 00:00: daily. [place] [facility] lisinopril 2017-0 Yes [id number] 5mg Take 5 mg Univers 5 mg tablet 2-12 by mouth ity of 00:00: daily. [place] [facility] lisinopril 2017-0 Yes [id number] 5mg Take 5 mg Univers 5 mg tablet 2-12 by mouth ity of 00:00: daily. [facility] lisinopril 2017-0 Yes [id number] 5mg Take 5 mg Univers 5 mg tablet 2-12 by mouth ity of 00:00: daily. [place] [facility] lisinopril 2017-0 Yes [id number] 5mg Take 5 mg Univers 5 mg tablet 2-12 by mouth ity of 00:00: daily. [facility] lisinopril 2017-0 Yes [id number] 5mg Take 5 mg Univers 5 mg tablet 2-12 by mouth ity of 00:00: daily. [facility] lisinopril 2017-0 Yes [id number] 5mg Take 5 mg Univers 5 mg tablet 2-12 by mouth ity of 00:00: daily. [place] [facility] lisinopril 2017- Yes [id number] 5mg Take 5 mg Univers 5 mg tablet 2-12 by mouth ity of 00:00: daily. [facility] lisinopril 2017-0 Yes [id number] 5mg Take 5 mg Univers 5 mg tablet 2-12 by mouth ity of 00:00: daily. [place] [facility] lisinopril 2017-0 Yes [id number] 5mg Take 5 mg Univers 5 mg tablet 2-12 by mouth ity of 00:00: daily. [place] [facility] lisinopril Yes [id number] 5mg Take 5 mg Univers 5 mg tablet 2-12 by mouth ity of 00:00: daily. [place] [facility] lisinopril Yes [id number] 5mg Take 5 mg Univers 5 mg tablet 2-12 by mouth ity of 00:00: daily. [place] [facility] lisinopril Yes [id number] 5mg Take 5 mg Univers 5 mg tablet 2-12 by mouth ity of 00:00: daily. [place] [facility] lisinopril Yes [id number] 5mg Take 5 mg Univers 5 mg tablet 2-12 by mouth ity of 00:00: daily. [address] lisinopril Yes [id number] 5mg Take 5 mg Univers 5 mg tablet 2-12 by mouth ity of 00:00: daily. [address] Immunizations Ordered Immunization Filled Immunization Date Status Commen ts Source Name Name influenza virus 2019-05-18 Completed [facility] vaccine, inactivated 03:21:00 [facility] pneumococcal 2019-05-18 Completed [facility] 13-valent vaccine 03:21:00 [place] Vital Signs Vital Name Observation Time Observation Value Comments Source HEIGHT 2019-09-21 00:00:00 160 cm WEIGHT 2019-09-21 00:00:00 68.04 kg Systolic blood 2021-01-07 13:46:00 146 mm[Hg] Univer sity of pressure [facility] Diastolic blood 2021-01-07 13:46:00 83 mm[Hg] Unive rsity of pressure [facility] Heart rate 2021-01-07 13:46:00 85 /min [facility] Body temperature 2021-01-07 13:46:00 36.56 [facility] 2021-01-07 13:46:00 18 /min [facility] Oxygen saturation in 2021-01-07 13:46:00 93 /min [facility] Arterial blood by [facility] Pulse oximetry Branch Body height 2021-01-02 19:11:00 160 cm [facility] Body weight 2021-01-02 19:11:00 78.472 kg [facility] BMI 2021-01-02 19:11:00 30.65 kg/m2 [facility] HEIGHT 2019-09-21 00:00:00 160 cm WEIGHT 2019-09-21 00:00:00 68.04 kg Heart Rate 2019-07-09 20:06:00 [facility] Respitory Rate 2019-07-09 20:06:00 Memori al [place] Systolic (mm Hg) 2019-07-09 20:06:00 Rito rial Master Diastolic (mm Hg) 2019-07-09 20:06:00 Mem orial Master Heart Rate 2019-07-09 17:17:00 Memorial Master Respitory Rate 2019-07-09 17:17:00 Memori al Master Systolic (mm Hg) 2019-07-09 17:17:00 Rito rial [place] Diastolic (mm Hg) 2019-07-09 17:17:00 Mem orial Master Heart Rate 2019-07-09 13:25:00 Memorial Master Respitory Rate 2019-07-09 13:25:00 Memori al [place] Systolic (mm Hg) 2019-07-09 13:25:00 Rito rial Master Diastolic (mm Hg) 2019-07-09 13:25:00 Mem orial [place] Temperature Oral (F) 2019-07-07 08:03:00 97[facility]6 [facility] 2019-07-07 07:58:00 167.64 cm [facility] Master Weight 2019-07-07 07:58:00 Memorial Master BMI Calculated 2019-07-07 07:58:00 Memori al [place] Temperature Oral (F) 2019-05-27 14:00:00 97.7 F [facility] [place] Heart Rate 2019-05-27 14:00:00 [facility] [place] Respitory Rate 2019-05-27 14:00:00 Memori al [place] Systolic (mm Hg) 2019-05-27 14:00:00 Rito rial Master Diastolic (mm Hg) 2019-05-27 14:00:00 Mem orial Master Temperature Oral (F) 2019-05-27 10:00:00 97.4 F [facility] [place] Heart Rate 2019-05-27 10:00:00 Memorial Master Respitory Rate 2019-05-27 10:00:00 Memori al [place] Systolic (mm Hg) 2019-05-27 10:00:00 Rito rial [place] Diastolic (mm Hg) 2019-05-27 10:00:00 Mem orial [place] Temperature Oral (F) 2019-05-27 06:01:00 98.5 F [facility] [place] Heart Rate 2019-05-27 06:01:00 [facility] [place] Respitory Rate 2019-05-27 06:01:00 Memori al [place] Systolic (mm Hg) 2019-05-27 06:01:00 Rito rial [place] Diastolic (mm Hg) 2019-05-27 06:01:00 Mem orial Master Height 2019-05-17 17:16:00 157.48 cm Memorial Master Weight 2019-05-17 17:16:00 Memorial Master BMI Calculated 2019-05-17 17:16:00 Memori al Master Height 2019-05-17 16:33:00 165.1 cm [facility] Master Weight 2019-05-17 16:33:00 Memorial Master BMI Calculated 2019-05-17 16:33:00 Memori al [place] Heart Rate 2019-04-10 21:00:00 Memorial Master Respitory Rate 2019-04-10 21:00:00 Memori al Master Systolic (mm Hg) 2019-04-10 21:00:00 Rito rial Master Diastolic (mm Hg) 2019-04-10 21:00:00 Mem orial Master Heart Rate 2019-04-10 17:11:00 Memorial Master Respitory Rate 2019-04-10 17:11:00 Memori al [place] Systolic (mm Hg) 2019-04-10 17:11:00 Rito rial Master Diastolic (mm Hg) 2019-04-10 17:11:00 Mem orial [place] Heart Rate 2019-04-10 13:45:00 Memorial Master Respitory Rate 2019-04-10 13:45:00 Memori al Master Systolic (mm Hg) 2019-04-10 13:45:00 Rito rial [place] Diastolic (mm Hg) 2019-04-10 13:45:00 Mem orial [place] Height 2019-04-10 11:48:00 154.94 cm [facility] Weight 2019-04-10 11:48:00 [facility] BMI Calculated 2019-04-10 11:48:00 Memori al [place] Height 2019-04-09 02:35:00 157.48 cm [facility] [place] Weight 2019-04-09 02:35:00 [facility] BMI Calculated 2019-04-09 02:35:00 [facility] Temperature Oral (F) 2019-04-09 02:09:00 98.3 F [facility] [place] Weight 2019-04-08 20:55:00 [facility] Heart Rate 2019-04-06 21:34:00 [facility] [place] Respitory Rate 2019-04-06 21:34:00 Memori al [place] Systolic (mm Hg) 2019-04-06 21:34:00 Rito rial [place] Diastolic (mm Hg) 2019-04-06 21:34:00 [facility] Heart Rate 2019-04-06 17:14:00 [facility] [place] Respitory Rate 2019-04-06 17:14:00 Memori al [place] Systolic (mm Hg) 2019-04-06 17:14:00 Rito rial [place] Diastolic (mm Hg) 2019-04-06 17:14:00 Mem orial [place] Heart Rate 2019-04-06 13:46:00 [facility] Respitory Rate 2019-04-06 13:46:00 [facility] Systolic (mm Hg) 2019-04-06 13:46:00 Rito rial [facility] Diastolic (mm Hg) 2019-04-06 13:46:00 Mem o[facility] [place] Temperature Oral (F) 2019-04-05 05:50:00 98.5 F [facility] [place] Temperature Oral (F) 2019-04-04 21:32:00 98.6 F [facility] Temperature Oral (F) 2019-04-04 17:35:00 98.7 F [facility] Height 2019-04-02 12:35:00 177.8 cm [facility] Height 2019-03-30 11:56:00 177.8 cm [facility] Height 2019-03-29 11:00:00 177.8 cm [facility] Weight 2019-03-29 06:16:00 [facility] BMI Calculated 2019-03-29 06:16:00 [facility] Weight 2019-03-29 05:15:00 [facility] BMI Calculated 2019-03-29 05:15:00 Memori al [place] BMI Calculated 2019-03-29 02:23:00 Memori al [place] Weight 2019-03-29 02:23:00 [facility] Respitory Rate 2019-03-29 01:12:00 [facility] Heart Rate 2019-03-29 01:12:00 [facility] Systolic (mm Hg) 2019-03-29 01:12:00 Rito rial [facility] Diastolic (mm Hg) 2019-03-29 01:12:00 Mem orial [place] Systolic (mm Hg) 2019-03-28 21:22:00 Rito rial [facility] Diastolic (mm Hg) 2019-03-28 21:22:00 Mem orial [place] Heart Rate 2019-03-28 21:22:00 [facility] [place] Respitory Rate 2019-03-28 21:22:00 Memori al [place] Temperature Oral (F) 2019-03-28 21:22:00 98.2 F [facility] Height 2019-03-28 21:22:00 177.8 cm [facility] BMI Calculated 2019-03-28 21:22:00 [facility] Weight 2019-03-28 21:22:00 [facility] Heart Rate 2019-03-09 18:01:00 [facility] [place] Respitory Rate 2019-03-09 18:01:00 [facility] [place] Systolic (mm Hg) 2019-03-09 18:01:00 Rito rial [place] Diastolic (mm Hg) 2019-03-09 18:01:00 [facility] Heart Rate 2019-03-09 13:22:00 [facility] [place] Respitory Rate 2019-03-09 13:22:00 [facility] [place] Systolic (mm Hg) 2019-03-09 13:22:00 Rito rial [facility] Diastolic (mm Hg) 2019-03-09 13:22:00 Mem orial [place] Heart Rate 2019-03-09 10:23:00 [facility] Respitory Rate 2019-03-09 10:23:00 Memori al [place] Systolic (mm Hg) 2019-03-09 10:23:00 Rito rial [facility] Diastolic (mm Hg) 2019-03-09 10:23:00 Mem orial [place] Temperature Oral (F) 2019-03-08 10:16:00 98.4 F [facility] Temperature Oral (F) 2019-03-08 06:04:00 97.9 F [facility] Temperature Oral (F) 2019-03-08 02:23:00 97.9 F [facility] [place] Height 2019-03-07 04:48:00 162.56 cm [facility] [place] Weight 2019-03-07 04:48:00 [facility] BMI Calculated 2019-03-07 04:48:00 Memori al [place] Height 2019-03-06 21:51:00 170.18 cm [facility] [place] BMI Calculated 2019-03-06 21:51:00 Memori al [place] Weight 2019-03-06 21:51:00 [facility] [place] Heart Rate 2019-02-28 21:30:00 [facility] [place] Respitory Rate 2019-02-28 21:30:00 [facility] Systolic (mm Hg) 2019-02-28 21:30:00 Rito rial [facility] Diastolic (mm Hg) 2019-02-28 21:30:00 [facility] Temperature Oral (F) 2019-02-28 18:00:00 98.3 F [facility] [place] Heart Rate 2019-02-28 18:00:00 [facility] [place] Respitory Rate 2019-02-28 18:00:00 Memori al [place] Systolic (mm Hg) 2019-02-28 18:00:00 Rito rial [place] Diastolic (mm Hg) 2019-02-28 18:00:00 [facility] Temperature Oral (F) 2019-02-28 13:33:00 97.6 F [facility] Heart Rate 2019-02-28 13:33:00 [facility] Respitory Rate 2019-02-28 13:33:00 [facility] Systolic (mm Hg) 2019-02-28 13:33:00 Rito rial [facility] Diastolic (mm Hg) 2019-02-28 13:33:00 [facility] Temperature Oral (F) 2019-02-28 01:27:00 98.8 F [facility] [place] Height 2019-02-18 11:00:00 167.64 cm [facility] Height 2019-02-17 17:08:00 167.64 cm [facility] BMI Calculated 2019-02-17 17:08:00 [facility] Weight 2019-02-17 17:08:00 [facility] Height 2019-02-17 10:41:00 167.64 cm [facility] [place] Weight 2019-02-15 08:54:00 [facility] [place] BMI Calculated 2019-02-15 08:54:00 Obed Escobedo Weight 2019-02-15 08:16:00 Nicole Thao BMI Calculated 2019-02-15 08:16:00 Obed Escobedo Procedures Procedure Date / Time Performing Source Performed Clinician PHACOEMULSIFICATION OF 2021-01-07 Leroy Bueno [facility] CATARACT WITH INTRAOCULAR 15:50:00 Medica l Branch LENS IMPLANT COVID-19 (ID NOW RAPID 2021-01-05 Leroy Bueno [facility] TESTING) 15:12:00 Medical Branch CONSENT/REFUSAL FOR DIAGNOSIS 2020-12-31 Doctor Unassigned, [facility] AND TREATMENT 15:17:48 [facility] ASSIGNMENT OF BENEFITS 2020-12-31 Doctor Unassigned, [facility] 15:17:33 [facility] PATIENT QUESTIONNAIRE 2020-11-25 Doctor Unassigned, [facility] 05:01:00 [facility] EXTERNAL PROVIDER RECORDS 2020-02-20 Doctor Unassigned, [facility] 06:01:00 [facility] ASSIGNMENT OF BENEFITS 2019-12-28 Doctor Unassigned, [facility] 19:33:50 [facility] [U] XRAY THORACOLUMBAR SPINE 2019-04-25 [facility] AP AND LAT. [id number] 00:00:00 Physicians [U] XRAY SPINE CERVICAL 2 OR 2019-04-25 Uni [facility] 3 VWS [id number] 00:00:00 Physicians NO SHOW OR MISSED APPOINTMENT 2018-12-15 Doctor Unassigned, [facility] POLICY ACKNOWLEDGEMENT 15:49:16 [facility] [facility] Craniotomy and removal of [...] 00:00:00 (1 of 1 - Medical Center [id number] PCV13) [code = PNEUMOCOCCAL 65+ YRS (1 of 1 - [id number]_Pyvcxog PCV13)] Future Scheduled 1997 PNEUMOCOCCAL 65+ YRS [facility] - Test 00:00:00 (1 of 1 - Medical Center [id number]_Xpbwbll PCV13) [code = PNEUMOCOCCAL 65+ YRS (1 of 1 - RWAV61_Oraqnzv PCV13)] Future Scheduled 1982 SHINGLES VACCINES (1 [...] Facility Department ID 2021-02-16 Outpatient R LETITIA [facility] OPH [id number] Univers 19:39:[address] [facility] 2019-09-21 Inpatient UR JOSE, SLE Neurology [id number] SLEH 21:50:00 [facility] 2019-05-17 Inpatient MH MED 0030 MHS W 10:14:00 2019-04-06 Inpatient 3 HAZEL WATKINSL BIT [id number] ENCSL 20:30:00 HEIDY [id number] 2021-06-04 2021-06-04 Outpatient ERICKSON_R [facility] [id number] [place] 12:18:00 12:18:00 [facility] 2021-06-04 2021-06-04 Outpatient Herson [facility] [id number] 00:00:00 00:00:00 Anthony [id number] [place] [id number] 2021-02-24 Outpatient ERICKSON_R [facility] [id number] [place] 02:00:00 02:00:00 109 [facility] 2021-01-23 2021-01-23 Outpatient [facility] [id number] [place] 10:31:00 10:31:00 008 [facility] 2021-01-20 2021-01-20 Outpatient [facility]SON_[facility] [id number] [place] 01:51:00 01:51:00 005 [facility] 2021-01-13 2021-01-13 Outpatient [facility]SON_[facility] [id number] [place] 11:48:00 11:48:00 928 [facility] 2021-01-13 2021-01-13 Outpatient Herson [facility] [id number] 00:00:00 00:00:00 Anthony [id number] [place] [id number] 2021-01-07 2021-01-07 [facility] 1.2.840.114 [id number] Univers 10:19:00 11:01:00 Leroy [place] 350.1.13.10 [place] [phone] [address] 2021-01-05 2021-01-05 Laboratory Only, Adc Test [facility] 1.2.840. 114 [id number] Univers 10:00:40 10:15:40 Only Leroy Bueno 350.1.13.1 0 [place] [phone] [address] 2021-01-05 2021-01-05 Outpatient [facility] [id number] Univers 10:00:00 10:00:00 [id number] [facility] 2021-01-05 2021-01-05 [facility] [id number] Univers 10:00:00 10:00:[address] [facility] 2020-12-31 2020-12-31 Banquet Coordinator Denny, Adc Lab Main [facility] 1.2.8 40.114 [id number] Univers 10:21:37 10:36:37 Visit Leroy Bueno 350.1.13.1 0 [place] [phone] [address] 2020-12-31 2020-12-31 Outpatient R [facility] [id number] Univers 10:30:00 10:30:00 [id number] [facility] 2020-12-31 2020-12-31 Outpatient R LETITIA [facility] [id number] Univers 10:30:00 10:30:00 [facility] 2020-12-31 2020-12-31 Orders Doctor MICHEAL 1.2.840.114 [id number] Univers 00:00:00 00:00:00 Only Unassigned, VALERIE 350.1.13.10 ity of [place] [facility] 4.2.7.2.686 [employer] as [phone] [address] 2020-12-29 2020-12-29 Outpatient R [facility] [id number] Univers 16:00:00 16:00:00 [id number] [facility] 2020-12-16 2020-12-16 Outpatient [facility] [id number] [place] 01:12:00 01:12:00 831 [facility] 2020-11-25 2020-11-25 Orders Doctor MICHEAL 1.2.840.114 [id number] Univers 00:00:00 00:00:00 Only Unassigned, VALERIE 350.1.13.10 ity of [place] [facility] 4.2.7.2.686 [place] as [phone] [address] 2020-11-11 2020-11-11 Outpatient [facility] [id number] [place] 12:57:00 12:57:00 727 [facility] 2020-10-09 2020-10-09 Outpatient [facility] [id number] [place] 03:28:00 03:28:00 624 [facility] 2020-10-09 2020-10-09 Outpatient Marcus, [facility] [id number] 00:00:00 00:00:00 Anthony [id number] [place] [id number] 2020-10-07 2020-10-07 Outpatient [facility] [id number] [place] 01:21:00 01:21:00 622 [facility] 2020-09-03 2020-09-03 Outpatient [facility] [id number] [place] 01:02:00 01:02:00 519 [facility] 2020-06-30 2020-06-30 Outpatient [facility] [id number] [place] 11:39:00 11:39:00 315 [facility] 2020-06-30 2020-06-30 Outpatient Herson [facility] [id number] 00:00:00 00:00:00 Anthony [id number] [place] [id number] 2020-06-13 2020-06-13 [facility] [id number] Univers 00:00:00 00:00:00 Emeterio Collins 350.1.13.10 i [place] [phone] Nd dical [address] 2020-06-13 2020-06-13 [facility] 1.2.663.040 [id number] 00:00:00 00:00:00 Emeterio Collins 350.1.13.10 [place] 4.2.7.2.[address] Professio [phone] [address] 2020-05-15 2020-05-15 Outpatient [facility] [id number] [place] 10:32:00 10:32:00 128 [facility] 2020-05-12 2020-05-12 Outpatient [facility] [id number] [place] 02:12:00 02:12:00 125 [facility] 2020-05-12 2020-05-12 Outpatient Herson [facility] [id number] 00:00:00 00:00:00 Anthony [id number] [place] [id number] 2020-05-02 2020-05-02 Outpatient [facility] [id number] [place] 02:48:00 02:48:00 115 [facility] 2020-02-22 2020-02-22 Outpatient R EDWARDO, [facility] [id number] Univers 11:30:00 11:30:[address] [facility] 2020-02-22 2020-02-22 Outpatient R EDWARDO, [facility] [id number] Univers 08:30:00 08:30:[id number] [facility] 2020-02-20 2020-02-20 Orders Doctor MICHEAL 1.2.840.114 [id number] Univers 00:00:00 00:00:00 Only Unassigned, VALERIE 350.1.13.10 ity of [place] [facility] 4.2.7.2.686 [place] as [phone] [address] 2019-12-31 2019-12-31 Letter MICHEAL Alves 1.2.840.114 [id number] Univers 00:00:00 00:00:00 (Out) Shaniqua PADILLA 350.1.13.10 it y of HOSPITAL 4.2.7.2.686 [place] as [phone] [address] 2019-12-28 2019-12-28 Laboratory Only, Adc Test [facility] 1.2.840. 114 [id number] Univers 14:33:48 14:48:48 Only Yelena Guardado 350.1.13.10 [place] [phone] [address] 2019-12-28 2019-12-28 Outpatient R [facility] [id number] Univers 13:45:00 13:45:[id number] [facility] 2019-12-28 2019-12-28 Outpatient R DEMETRIA, [facility] [id number] Univers 13:45:00 13:45:[address] [facility] 2019-12-28 2019-12-28 Orders Doctor MICHEAL 1.2.840.114 [id number] Univers 00:00:00 00:00:00 Only Unassigned, VALERIE 350.1.13.10 ity of [place] [facility] 4.2.7.2.686 [place] as [phone] [address] 2019-09-07 2019-09-07 [facility] [id number] Univers 16:00:00 16:00:00 EMETERIO [facility] 2019-08-17 2019-08-17 [facility] 1.2.840.114 [id number] Univers 08:22:58 16:26:12 ne Visit Emeterio [place] 350.1.13.10 [place] [phone] [address] 2019-08-17 2019-08-17 Ambulatory nullFlavo [facility] [id number] Memoria 13:30:00 13:30:00 Pre-Reg r Urology 00 [address] [place] Fabi [facility] 2019-08-17 2019-08-17 [facility] [id number] Univers 13:00:00 13:00:00 EMETERIO [id number] [facility] 2019-08-17 2019-08-17 [facility] [id number] Univers 13:00:00 13:00:00 EMETERIO [facility] 2019-07-08 2019-07-09 Inpatient nullFlavo [facility] [id number] Memoria 14:41:00 22:47:00 r [place] 81 [address] [place] Herma 2019-07-08 2019-07-09 Inpatient E BRYN FB MED [id number] FB 09:41:00 17:47:00 JROGE LUIS HOOD 2019-07-09 2019-07-09 [facility] [id number] Univers 00:00:00 00:00:00 Emeterio [place] 350.1.13.10 [place] [phone] Nd dic[address] 2019-07-09 2019-07-09 [facility] 1.2.157.768 [id number] Univers 00:00:00 00:00:00 Emeterio [place] 350.1.13.10 i [place] [phone] Nd dical nal 220 [facility] 2019-06-16 2019-06-16 [facility] 1.2.997.306 [id number] Univers 00:00:00 00:00:00 Emeterio Collins 350.1.13.10 [place] [phone] Nd dical nal 220 [facility] 2019-06-15 2019-06-15 [facility] [id number] Univers 00:00:00 00:00:00 Emeterio [place] 350.1.13.10 [place] [phone] [address] 2019-05-17 2019-05-27 Inpatient nullFlavo [facility] [id number] Memoria 16:14:00 20:19:00 julia Thao 30 l [facility] 2019-04-25 2019-04-25 [facility] [id number] 07:30:00 08:15:47 2019-04-25 2019-04-[facility] [id number] [facility] 07:30:00 07:30:00 t; Eric FULLER at [facility] Eric FULLER Medicine [facility] 2019-04-08 2019-04-10 Inpatient nullFlavo [facility] [id number] Memoria 20:39:53 23:44:00 julia Thao 03 l [facility] 2019-04-08 2019-04-08 Inpatient E MHFB MED [id number] MHFB 19:32:00 14:39:00 2019-03-29 2019-04-07 Inpatient nullFlavo [facility] [id number] Memoria 02:20:21 01:41:00 julia Thao 02 l [facility] 2019-03-28 2019-03-29 Emergency nullFlavo [facility] [id number] Memoria 21:21:29 01:49:00 julia Arevalo l [facility] 2019-03-28 2019-03-28 Inpatient E MHHH M[facility] [id number] [facility] 22:05:00 20:20:00 2019-03-28 2019-03-28 Emergency E MHBL MHBL 7501 MHBL 15:21:00 15:21:00 2019-03-19 2019-03-20 Outpt Diag nullFlavo [facility] [id number] Memoria 22:43:00 05:59:00 Services r Outpatient 00 l [facility] 2019-03-06 2019-03-09 Inpatient nullFlavo [facility] [id number] Memoria 21:44:12 21:46:00 r Master 00 l [facility] 2019-03-09 2019-03-06 Inpatient E MHHH MHHH [id number] MHH[facility] 11:09:00 20:28:00 2019-02-14 2019-02-28 Inpatient nullFlavo [facility] [id number] Memoria 22:00:00 21:50:00 r [place] 67 l [facility] 2019-02-14 2019-02-14 Outpatient MHHH RIC [id number] [facility] 18:48:00 18:48:00 2019-02-14 2019-02-14 Inpatient E MHHH [facility] [id number] MHH 18:06:00 17:02:00 2018-12-15 2018-12-15 Banquet Coordinator 1, Adc Lab [facility] 1.2.840.114 [id number] Univers 12:37:23 12:52:23 Visit Emeterio Leach 350.1.13.10 [place] [phone] [facility] [address] 2018-12-15 2018-12-15 Orders Doctor MICHEAL 1.2.840.114 [id number] Univers 00:00:00 00:00:00 Only Unassigned, VALERIE 350.1.13.10 ity of [place] [facility] 4.2.7.2.686 [employer] as [phone] [facility] [address] 2018-12-01 2018-12-01 Refill Paulina [facility] 1.2.840.114 [id number] Univers 00:00:00 00:00:00 Dolores [place] 350.1.13.10 [facility] [place] [facility] [phone] Nd dical nal [address] Results Test Description Test Time Test Comments Results Result Comments Source POCT-GLUCOSE METER 2019-09-28 12:28:00 Test Item Value Reference Range Interpretation Comme nts POC-GLUCOSE METER (BEAKER) 99 mg/dL 70-110 : TESTED AT [facility] 6720 YADIEL (test code = 1538) [facility] [address]: Face Man/Techni amada ID = [id number] for ELICEO CORADO POCT-GLUCOSE [id number] 08:13:00 Test Item Value Reference Range Interpretation Comments POC-GLUCOSE METER 79 mg/dL 70-110 : TESTED A T [facility] 6720 (BEAKER) (test code = TODD Julia REAL [place], 1538) 03891: Face Man/Techni amada ID = [id number] for ELICEO STANLEY [id number] 06:39:00 Test Item Value Reference Range Interpretation Comments PHOSPHORUS (BEAKER) (test code = 3.2 mg/dL 2.3-4.7 604) Face Man ID - GRISEL [id number] 06:39:00 Test Item Value Reference Range Interpretation Comments MAGNESIUM (BEAKER) (test code = 1.7 mg/dL 1.6-2.6 627) Face Man ID - GRISEL MBASIC METABOLIC [id number] 06:39:00 Test Item Value Reference Range Interpretation [...] S NOT APPLICABLE FOR DIALYSIS PATIEN TS. Face Man ID - GRISEL [facility] W/PLT COUNT & AUTO [id number] 06:02:00 Test Item Value Reference Range Interpretation [...] PERCENT (BEAKER) (test code = 2801) BLOOD [id number] 01:00:00 Test Item Value Reference Range Interpretation Comments CULTURE (BEAKER) (test No growth in 5 days code = 1095) BLOOD [id number] 01:00:00 Test Item Value Reference Range Interpretation Comments CULTURE (BEAKER) (test No growth in 5 days code = 1095) POCT-GLUCOSE [id number] 22:32:00 Test Item Value Reference Range Interpretation Comments POC-GLUCOSE METER 106 mg/dL 70-110 : TESTED A T [facility] 6720 (BEAKER) (test code = TODD Dumont [facility], 1538) 64979: Face Man/Techni amada ID = [id number] for DE NNIS, JOSE POCT-GLUCOSE [id number] 17:30:00 Test Item Value Reference Range Interpretation Comments POC-GLUCOSE METER 92 mg/dL 70-110 : TESTED A T [facility] 6720 (BEAKER) (test code = [facility] [employer] [facility], 1538) 25499: Face Man/Techni amada ID = [id number] for DELFIN GANNON RAD, CHEST, 1 VIEW, NON [id number] 16:16:00Reason for exam:->sobShould this be performed at [...] Cervantes MDReport Verified Date/Time: 09/27/2019 16:16:19 SARS-COV2/RT-PCR ([facility])2019-09-27 16:07:00 Test Item Value Reference Range Interpretation Comments SARS-COV2/RT-PCR (test code = Negative Not Detected, Negative [id number]) SARS-COV-2 PERFORMING LAB CPL (test code = 2638626) POCT-GLUCOSE [id number] 11:12:00 Test Item Value Reference Range Interpretation Comments POC-GLUCOSE METER 121 mg/dL 70-110 H : TESTED A T [facility] 6720 (BEAKER) (test code = [facility], 1538) 13408: Face Man/Techni amada ID = [id number] for DELFIN STANTON [id number] 07:56:00 Test Item Value Reference Range Interpretation Comments PHOSPHORUS (BEAKER) (test code = 3.4 mg/dL 2.3-4.7 604) Face Man ID - JOLYNN [id number] 07:56:00 Test Item Value Reference Range Interpretation Comments MAGNESIUM (BEAKER) (test code = 1.8 mg/dL 1.6-2.6 627) Face Man ID - JOLYNN LPOCT-GLUCOSE [id number] 07:38:00 Test Item Value Reference Range Interpretation Comments POC-GLUCOSE METER 89 mg/dL 70-110 : TESTED A T [facility] 6720 (BEAKER) (test code = [facility], 1538) 35405: Face Man/Techni amada ID = [id number] for QUINCY GANNONIA POCT-GLUCOSE [id number] 06:36:00 Test Item Value Reference Range Interpretation Comments POC-GLUCOSE METER 70 mg/dL 70-110 : TESTED A T [facility] 6720 (BEAKER) (test code = [facility], 1538) 00160: Face Man/Techni amada ID = [id number] for JESSIKAMariah ADONAY JOSE POCT-GLUCOSE [id number] 01:06:00 Test Item Value Reference Range Interpretation Comments POC-GLUCOSE METER 94 mg/dL 70-110 : TESTED A T [facility] 6720 (BEAKER) (test code = [facility], 1538) 08498: Face Man/Techni amada ID = [id number] for FER URIAS JOSE POCT-GLUCOSE [id number] 17:53:00 Test Item Value Reference Range Interpretation Comments POC-GLUCOSE METER 94 mg/dL 70-110 : TESTED A T [facility] 6720 (BEAKER) (test code = [facility], 1538) 00932: Face Man/Techni amada ID = [id number] for BROW N, SREE POCT-GLUCOSE [id number] 15:47:00 Test Item Value Reference Range Interpretation Comments POC-GLUCOSE METER 123 mg/dL 70-110 H : TESTED A T [facility] 6720 (BEAKER) (test code = [facility], 1538) 58115: Face Man/Techni amada ID = [id number] for BR OWN, SREE [id number] 06:57:00 Test Item Value Reference Range Interpretation Comments PHOSPHORUS (BEAKER) (test code = 2.8 mg/dL 2.3-4.7 604) Face Man ID - GRISEL [id number] 06:57:00 Test Item Value Reference Range Interpretation Comments MAGNESIUM (BEAKER) (test code = 1.7 mg/dL 1.6-2.6 627) Face Man ID - GRISEL MPOCT-GLUCOSE [id number] 17:47:00 Test Item Value Reference Range Interpretation Comments POC-GLUCOSE METER 79 mg/dL 70-110 : TESTED A T [facility] 6720 (BEAKER) (test code = [facility], 1538) 28466: Face Man/Techni amada ID = [id number] for BROW N, SREE POCT-GLUCOSE [id number] 11:35:00 Test Item Value Reference Range Interpretation Comments POC-GLUCOSE METER 96 mg/dL 70-110 : TESTED A T [facility] 6720 (BEAKER) (test code = [facility], 1538) 13618: Face Man/Techni amada ID = [id number] for BROW N, SREE POCT-GLUCOSE [id number] 06:33:00 Test Item Value Reference Range Interpretation Comments POC-GLUCOSE METER 105 mg/dL 70-110 : TESTED A T [facility] 6720 (BEAKER) (test code = [place] [facility], 1538) 83655: Face Man/Techni amada ID = [id number] for DO VE, CHEKARA [id number] 06:32:00 Test Item Value Reference Range Interpretation Comments PHOSPHORUS (BEAKER) (test code = 2.6 mg/dL 2.3-4.7 604) Face Man ID - GRISEL [id number] 06:32:00 Test Item Value Reference Range Interpretation Comments MAGNESIUM (BEAKER) (test code = 1.7 mg/dL 1.6-2.6 627) Face Man ID - GRISEL MPOCT-GLUCOSE [id number] 00:14:00 Test Item Value Reference Range Interpretation Comments POC-GLUCOSE METER 126 mg/dL 70-110 H : TESTED A T [facility] 6720 (BEAKER) (test code = [facility], 1538) 18614: Face Man/Techni amada ID = [id number] for DO VE, CHEKARA POCT-GLUCOSE [id number] 18:19:00 Test Item Value Reference Range Interpretation Comments POC-GLUCOSE METER 86 mg/dL 70-110 : TESTED A T [facility] 6720 (BEAKER) (test code = [facility], 1538) 71766: Face Man/Techni amada ID = [id number] for RICHARD BEATRIZ, ELICEO POCT-GLUCOSE [id number] 14:12:00 Test Item Value Reference Range Interpretation Comments POC-GLUCOSE METER 114 mg/dL 70-110 H : TESTED A T [facility] 6720 (BEAKER) (test code = [facility], 1538) 03410: Face Man/Techni amada ID = [id number] for AK INSONU, ELICEO POCT-GLUCOSE [id number] 06:21:00 Test Item Value Reference Range Interpretation Comments POC-GLUCOSE METER 109 mg/dL 70-110 : TESTED A T [facility] 6720 (BEAKER) (test code = [facility], 1538) 95098: Face Man/Techni amada ID = [id number] for DE NNIS, JOSE CBC W/PLT COUNT & AUTO [id number] 05:16:00 Test Item Value Reference Range Interpretation [...] 0-1 PERCENT (BEAKER) (test code = 2801) [id number] 05:15:00 Test Item Value Reference Range Interpretation Comments PHOSPHORUS (BEAKER) (test code = 2.3 mg/dL 2.3-4.7 604) Face Man ID - GRISEL [id number] 05:15:00 Test Item Value Reference Range Interpretation Comments MAGNESIUM (BEAKER) (test code = 1.8 mg/dL 1.6-2.6 627) Face Man ID - GRISEL MBASIC METABOLIC [id number] 05:15:00 Test Item Value Reference Range Interpretation [...] S NOT APPLICABLE FOR DIALYSIS PATIEN TS. Face Man ID - GRISEL MPOCT-GLUCOSE [id number] 23:34:00 Test Item Value Reference Range Interpretation Comments POC-GLUCOSE METER 108 mg/dL 70-110 : TESTED A T [facility] 6720 (BEAKER) (test code = [facility], 1538) 92487: Face Man/Techni amada ID = [id number] for DE NNIS, JOSE POCT-GLUCOSE [id number] 18:08:00 Test Item Value Reference Range Interpretation Comments POC-GLUCOSE METER 136 mg/dL 70-110 H : TESTED A T [facility] 6720 (BEAKER) (test code [facility], = 1538) 14540: Face Man/Techni amada ID = [id number] for TSEG GAI, TSIGHEREDA URINALYSIS [id number] 14:06:00 Test Item Value Reference Range Interpretation Comments RBC UA (BEAKER) (test code = 519) 6 /HPF WBC UA (BEAKER) (test code = 520) 58 /HPF MUCUS (BEAKER) (test code = 1574) Occasional SQUAMOUS EPITHELIAL (BEAKER) (test < /HPF code = 516) Face Man ID - techPOCT-GLUCOSE [id number] 14:04:00 Test Item Value Reference Range Interpretation Comments POC-GLUCOSE METER 99 mg/dL 70-110 : TESTED A T [facility] 6720 (BEAKER) (test code = [facility], 1538) 02860: Face Man/Techni amada ID = [id number] for SONALI MCNEIL URINALYSIS WITH MICROSCOPIC IF [id number] 13:55:00 Test Item Value Reference Range Interpretation [...] = 463) SOURCE(BEAKER) (test code = 2795) Face Man ID - [auto]POCT-GLUCOSE [id number] 13:04:00 Test Item Value Reference Range Interpretation Comments POC-GLUCOSE METER 111 mg/dL 70-110 H : TESTED A T [facility] 6720 (BEAKER) (test code [facility], = 1538) 73471: Face Man/Techni amada ID = [id number] for JANNIE MORENODARRELTERESAA [id number] 12:43:00 Test Item Value Reference Range Interpretation Comments RPR SCREEN (BEAKER) (test code = Nonreactive Nonreactive 420) POCT-GLUCOSE [id number] 07:42:00 Test Item Value Reference Range Interpretation Comments POC-GLUCOSE METER 124 mg/dL 70-110 H : TESTED A T [facility] 6720 (BEAKER) (test code = [facility] [place], 1538) 67982: Face Man/Techni amada ID = [id number] for DE NNIS, JOSE VITAMIN D, 72-[id number] 07:20:00 Test Item Value Reference Range Interpretation Comments VITAMIN D 25-OH (BEAKER) (test 22.1 ng/mL 6.6-49.9 code = 2764) Effective 01/26/2017: Reference Range ChangeNew: 6.6-49.9 ng/mL Previous: 13.0-47.8 ng/mLRecommended Vitamin D Target Range: 30.0-40.0 ng/mLOperator ID - [id number] 06:46:00 Test Item Value Reference Range Interpretation Comments PHOSPHORUS (BEAKER) (test code = 2.4 mg/dL 2.3-4.7 604) Face Man ID - GRISEL [id number] 06:46:00 Test Item Value Reference Range Interpretation Comments MAGNESIUM (BEAKER) (test code = 1.6 mg/dL 1.6-2.6 627) Face Man ID - GRISEL MBASIC METABOLIC [id number] 06:46:00 Test Item Value Reference Range Interpretation [...] S NOT APPLICABLE FOR DIALYSIS PATIEN TS. Face Man ID - GRISEL MPOCT-GLUCOSE [id number] 00:27:00 Test Item Value Reference Range Interpretation Comments POC-GLUCOSE METER 103 mg/dL 70-110 : TESTED A T [facility] 6720 (NATY) (test code = [facility], 1538) 73822: Face Man/Techni amada ID = [id number] for DE NNIS, JOSE POCT-GLUCOSE [id number] 17:26:00 Test Item Value Reference Range Interpretation Comments POC-GLUCOSE METER 97 mg/dL 70-110 : Notified RN/MD: TESTED (NATY) (test code = [facility] 67[facility] 1538) [facility], 770 30: Face Man/Techni amada ID = [id number] for CHANTELL AMEZCUAPAULEN HIV-1 ANTIGEN WITH HIV-1/2 [id number] 17:26:00 Test Item Value Reference Range Interpretation Comments HIV-1 ANTIGEN WITH HIV 1\\T\\2 Nonreactive Nonreactive ANTIBODY (2) (NATY) (test code = 2586) Face Man ID - DBRAD, CHEST, 1 VIEW, NON [id number] 16:47:00Reason for exam:- >eval for pnaShould this [...] MDReport Verified Date/Time: 09/22/2019 16:47:36 Reading Location: [facility] B1 C013Y CT Body Reading Room POCT-GLUCOSE [id number] 12:05:00 Test Item Value Reference Range Interpretation Comments POC-GLUCOSE METER 53 mg/dL 70-110 L : TESTED A T [facility] 6720 (BEAKER) (test code = [facility] [place], 1538) 10212: Face Man/Techni amada ID = [id number] for ELICEO STANLEY T4, [id number] 08:52:00 Test Item Value Reference Range Interpretation Comments FREE T4 (BEAKER) (test code = 655) 0.94 ng/dL 0.70-1.48 Face Man ID - JANAE CHEMOGLOBIN [id number] 08:43:00 Test Item Value Reference Range Interpretation Comments HEMOGLOBIN A1C (BEAKER) (test code = 5.4 % 4.3-6.1 368) VITAMIN B12 AND [id number] 08:20:00 Test Item Value Reference Range Interpretation Comments VITAMIN B12 (BEAKER) (test code = 869 pg/mL 213-816 H 774) FOLATE (BEAKER) (test code = 362) 19.30 ng/mL >=7.00 Face Man ID - JANAE CTSH/FREE T4 IF [id number] 08:18:00 Test Item Value Reference Range Interpretation Comments THYROID STIMULATING HORMONE 0.158 uIU/mL 0.350-4.940 L (BEAKER) (test code = 772) Face Man ID - JANAE [id number] 07:41:00 Test Item Value Reference Range Interpretation Comments AMMONIA (BEAKER) (test code = 348) 35 mol/L 18-72 Face Man ID - DAVIDHAMIDTROPONIN [id number] 07:16:00 Test Item Value Reference Range Interpretation [...] failure, acidosis, acute neurological disease, and persistent tachyarrhythmia.Face Man ID - AAHAMIDC-REACTIVE PROTEIN 2019-09-22 07:14:00 Test Item Value Reference Range Interpretation Comments C-REACTIVE PROTEIN (YUKIAKER) (test 3.32 mg/dL 0.00-0.50 H code = 676) Face Man ID - AAHAMIDVALPROIC ACID LEVEL, [id number] 02:48:00 Test Item Value Reference Range Interpretation Comments VALPROIC ACID TOTAL (YUKIAKER) (test 46 ug/mL 50-100 L code = 924) Therapeutic range for some clinical conditions may be >100 ug/mLOperator ID - DESHAWN WPROTHROMBIN TIME/[id number] 02:31:00 Test Item Value Reference Range Interpretation [...] is2.5-3.5 for patients wiht mechanical heart valves.TROPONIN [id number] 02:29:00 Test Item Value Reference Range Interpretation [...] failure, acidosis, acute neurological disease, and persistent tachyarrhythmia.Face Man ID Milton HESS WBASIC METABOLIC [id number] 02:23:00 Test Item Value Reference Range Interpretation [...] S NOT APPLICABLE FOR DIALYSIS PATIEN TS. Face Man ID Milton HESS WHEPATIC FUNCTION [id number] 02:23:00 Test Item Value Reference Range Interpretation [...] Specimen slightly (test code = 347) hemolyzed Face Man ID Milton HESS WCBC W/PLT COUNT & AUTO [id number] 02:01:00 Test Item Value Reference Range Interpretation [...] PERCENT (BEAKER) (test code = 2801) CHEM [id number] 02:31:00 Test Item Value Reference Range Interpretation Comments Ammonia (test code = Ammonia) 28.0 [facility] HeightsAszaaujKZFKGN4657-78-15 00:25:00 Test Item Value Reference Range Interpretation Comments Trig (test code = Trig) 61 [facility] HeightsLleoewvWCZUSB0454-90-83 00:25:00 Test Item Value Reference Range Interpretation Comments Chol (test code = Chol) 208 [facility] HeightsLsdwvjcZFBYWT1413-50-19 00:25:00 Test Item Value Reference Range Interpretation Comments HDL (test code = HDL) 51 [facility] HeightsLakhiihYDUVVJ7193-30-78 00:25:00 Test Item Value Reference Range Interpretation Comments CHD Risk (test code = CHD Risk) 4.08 1 4.00-7.30 [facility] HeightsAikiyocYGWAJX2181-75-82 00:25:00 Test Item Value Reference Range Interpretation Comments LDL (Calculated) (test code = LDL 145 (Calculated)) [facility] HeightsEhkrslcHNOXQH1130-27-66 00:25:00 Test Item Value Reference Range Interpretation Comments VLDL (test code = VLDL) 12 1 [facility] [id number] 00:25:00 Test Item Value Reference Range Interpretation Comments Hgb A1C (test code = Hgb A1C) 6.2 [facility] [id number] 15:33:00 Test Item Value Reference Range Interpretation Comments Vitamin B12 Lvl (test code = Vitamin 266 319-2927 B12 Lvl) [facility] HeightsCHEM [id number] 15:33:00 Test Item Value Reference Range Interpretation Comments Ammonia (test code = Ammonia) no gt [facility] HeightsCHE[facility] [id number] 15:33:00 Test Item Value Reference Range Interpretation Comments Glucose Lvl (test code = Glucose Lvl) 84 70-99 [facility] HeightsCHE[facility] [id number] 15:33:00 Test Item Value Reference Range Interpretation Comments BUN (test code = BUN) 16 7-22 [facility] HeightsCHE[facility] [id number] 15:33:00 Test Item Value Reference Range Interpretation Comments Creatinine Lvl (test code = Creatinine 1.20 0.50-1.40 Lvl) [facility]2020-03-22 15:33:00 Test Item Value Reference Range Interpretation Comments Sodium Lvl (test code = Sodium Lvl) 140 135-145 [place] 706110-03-22 15:33:00 Test Item Value Reference Range Interpretation Comments Potassium Lvl (test code = Potassium 4.0 3.5-5.1 Lvl) [place] 706110-03-22 15:33:00 Test Item Value Reference Range Interpretation Comments Chloride Lvl (test code = Chloride Lvl) 105 95-109 [place] 706110-03-22 15:33:00 Test Item Value Reference Range Interpretation Comments CO2 (test code = CO2) 27 24-32 [place] 706110-03-22 15:33:00 Test Item Value Reference Range Interpretation Comments Calcium Lvl (test code = Calcium Lvl) 9.8 8.5-10.5 [place] 706110-03-22 15:33:00 Test Item Value Reference Range Interpretation Comments AGAP (test code = AGAP) 12.0 10.0-20.0 [place] 706110-03-22 15:33:00 Test Item Value Reference Range Interpretation Comments eGFR (test code = eGFR) 62 [facility]bergDaoeepkQQATWUFIAZ1683-39-67 15:33:00 Test Item Value Reference Range Interpretation Comments WBC (test code = WBC) 5.0 3.7-10.4 [place] [address]-03-22 15:33:00 Test Item Value Reference Range Interpretation Comments RBC (test code = RBC) 4.22 4.70-6.10 [place] [address]-03-22 15:33:00 Test Item Value Reference Range Interpretation Comments Hgb (test code = Hgb) 12.6 14.0-18.0 [place] [address]-03-22 15:33:00 Test Item Value Reference Range Interpretation Comments Hct (test code = Hct) 37.4 42.0-54.0 [place] [address]-03-22 15:33:00 Test Item Value Reference Range Interpretation Comments MCV (test code = MCV) 88.6 80.0-94.0 [place] [address]-03-22 15:33:00 Test Item Value Reference Range Interpretation Comments MCH (test code = MCH) 29.9 pg 27.0-31.0 [facility] KlebergLimovtuDTFZWBPEIZ9070-29-80 15:33:00 Test Item Value Reference Range Interpretation Comments MCHC (test code = MCHC) 33.7 32.0-36.0 [facility] KlebergDawzxahJYPUHHBYNY0824-50-31 15:33:00 Test Item Value Reference Range Interpretation Comments RDW (test code = RDW) 15.2 11.5-14.5 [facility] KlebergMzoysmuRXLXSPMECY9098-58-49 15:33:00 Test Item Value Reference Range Interpretation Comments Platelet (test code = Platelet) 188 133-450 [facility] KlebergKxuemmoZOHSDCQZED8296-33-61 15:33:00 Test Item Value Reference Range Interpretation Comments MPV (test code = MPV) 8.0 7.4-10.4 [place] 598920-03-22 15:33:00 Test Item Value Reference Range Interpretation Comments Segs (test code = Segs) 62.8 45.0-75.0 [facility] KlebergLeczsgkJQZOYZFVYD6643-86-55 15:33:00 Test Item Value Reference Range Interpretation Comments Lymphocytes (test code = Lymphocytes) 24.6 20.0-40.0 [place] 598920-03-22 15:33:00 Test Item Value Reference Range Interpretation Comments Monocytes (test code = Monocytes) 10.1 2.0-12.0 [facility] KlebergZhlihquTJQNGRUGOD2993-75-32 15:33:00 Test Item Value Reference Range Interpretation Comments Eosinophils (test code = 1.9 See_Comment [A utomated message] The Eosinophils) system which ge nerated this result tra nsmitted reference range : <=4.0. The reference r madi was not used to int erpret this result as normal/abnormal . [facility] KlebergQihkkufFXYMSITXUC5364-77-19 15:33:00 Test Item Value Reference Range Interpretation Comments Basophils (test code = 0.6 See_Comment [Aut omated message] The Basophils) system which ge nerated this result tra nsmitted reference range : <=1.0. The reference r madi was not used to int erpret this result as normal/abnormal . [place] 598920-03-22 15:33:00 Test Item Value Reference Range Interpretation Comments Neutrophils # (test code = Neutrophils 3.1 1.5-8.1 #) [facility] KlebergUuxjhwxGPTISJXNIL9172-27-58 15:33:00 Test Item Value Reference Range Interpretation Comments Lymphocytes # (test code = Lymphocytes 1.2 1.0-5.5 #) [facility] KlebergMgjdukbVZISLRCKPG1185-12-72 15:33:00 Test Item Value Reference Range Interpretation Comments Monocytes # (test code 0.5 See_Comment [Aut omated message] The = Monocytes #) system which generated this result tra nsmitted reference range : <=0.8. The reference r madi was not used to int erpret this result as normal/abnormal . [facility] KlebergDpqukunNUHZWCBBYW1945-67-53 15:33:00 Test Item Value Reference Range Interpretation Comments Eosinophils # (test code 0.1 See_Comment [A utomated message] The = Eosinophils #) system whic h generated this result tra nsmitted reference range : <=0.5. The reference r madi was not used to int erpret this result as normal/abnormal . [facility]2020-03-21 11:10:00 Test Item Value Reference Range Interpretation Comments Glucose Lvl (test code = Glucose Lvl) 95 70-99 [place] 706110-03-21 11:10:00 Test Item Value Reference Range Interpretation Comments BUN (test code = BUN) 11 - [place] 706110-03-21 11:10:00 Test Item Value Reference Range Interpretation Comments Creatinine Lvl (test code = Creatinine 1.03 0.50-1.40 Lvl) [place] 706110-03-21 11:10:00 Test Item Value Reference Range Interpretation Comments Sodium Lvl (test code = Sodium Lvl) 138 135-145 [place] 706110-03-21 11:10:00 Test Item Value Reference Range Interpretation Comments Potassium Lvl (test code = Potassium 3.7 3.5-5.1 Lvl) [place] 706110-03-21 11:10:00 Test Item Value Reference Range Interpretation Comments Chloride Lvl (test code = Chloride Lvl) 105 95-109 [place] 706110-03-21 11:10:00 Test Item Value Reference Range Interpretation Comments CO2 (test code = CO2) 27 24-32 [place] 706110-03-21 11:10:00 Test Item Value Reference Range Interpretation Comments Calcium Lvl (test code = Calcium Lvl) 9.8 8.5-10.5 [facility] [id number] 11:10:00 Test Item Value Reference Range Interpretation Comments Total Protein (test code = Total 6.6 6.4-8.4 Protein) [facility] [id number] 11:10:00 Test Item Value Reference Range Interpretation Comments Albumin Lvl (test code = Albumin Lvl) 3.4 3.5-5.0 [facility] [id number] 11:10:00 Test Item Value Reference Range Interpretation Comments ALT (test code = ALT) 19 See_Comment [Auto mated message] The system which ge nerated this result transmit guillaume reference range : <=65. The reference range was not used to interpr et this result as jd l/abnormal. [facility] PJSKP3811-65-00 11:10:00 Test Item Value Reference Range Interpretation Comments AST (test code = AST) 16 See_Comment [Auto mated message] The system which ge nerated this result transmit guillaume reference range : <=37. The reference range was not used to interpr et this result as jd l/abnormal. [facility] UAYPV7401-18-26 11:10:00 Test Item Value Reference Range Interpretation Comments Alk Phos (test code = Alk Phos) 70 39-136 [facility] MJFSC8963-06-90 11:10:00 Test Item Value Reference Range Interpretation Comments Bili Total (test code = Bili Total) 0.7 0.2-1.3 [facility] [id number] 11:10:00 Test Item Value Reference Range Interpretation Comments AGAP (test code = AGAP) 9.7 10.0-20.0 [facility] [id number] 11:10:00 Test Item Value Reference Range Interpretation Comments B/C Ratio (test code = B/C Ratio) 11 1 6-25 [facility] [id number] 11:10:00 Test Item Value Reference Range Interpretation Comments Globulin (test code = Globulin) 3.2 2.7-4.2 [facility] [id number] 11:10:00 Test Item Value Reference Range Interpretation Comments A/G Ratio (test code = A/G Ratio) 1.1 1 0.7-1.6 [facility]2020-03-21 11:10:00 Test Item Value Reference Range Interpretation Comments eGFR (test code = eGFR) 75 [facility] HeightsKlbpemySFXEMNPXLG8098-42-97 11:10:00 Test Item Value Reference Range Interpretation Comments WBC (test code = WBC) 4.9 3.7-10.4 [facility]DlqschmMYRGLUOGUW1393-24-21 11:10:00 Test Item Value Reference Range Interpretation Comments RBC (test code = RBC) 4.14 4.70-6.10 [facility] HeightsShbocohVYPVZJXHWS1503-37-99 11:10:00 Test Item Value Reference Range Interpretation Comments Hgb (test code = Hgb) 12.1 14.0-18.0 [facility] HeightsOrlhkqxEVZQLXYDVW2587-05-42 11:10:00 Test Item Value Reference Range Interpretation Comments Hct (test code = Hct) 36.7 42.0-54.0 [facility] HospitalGtclexgTSZONCZSSA8799-31-36 11:10:00 Test Item Value Reference Range Interpretation Comments MCV (test code = MCV) 88.6 80.0-94.0 [facility] HeightsWyrsyxtJKBUWMGUMP2739-01-30 11:10:00 Test Item Value Reference Range Interpretation Comments MCH (test code = MCH) 29.3 pg 27.0-31.0 [facility] HeightsLjixqknPHAELDCUMV1596-08-31 11:10:00 Test Item Value Reference Range Interpretation Comments MCHC (test code = MCHC) 33.1 32.0-36.0 [facility] HeightsRysbcjiBKZPFBHZGB2884-37-32 11:10:00 Test Item Value Reference Range Interpretation Comments RDW (test code = RDW) 14.8 11.5-14.5 [facility] HeightsAkemcsfOWAJKKAGDP7222-83-42 11:10:00 Test Item Value Reference Range Interpretation Comments Platelet (test code = Platelet) 178 133-450 [facility] HeightsZepfwlcDSHPLFECED7987-39-86 11:10:00 Test Item Value Reference Range Interpretation Comments MPV (test code = MPV) 7.9 7.4-10.4 [facility] HospitalYdxhdygKRCEIXZTRC4061-90-23 11:10:00 Test Item Value Reference Range Interpretation Comments Segs (test code = Segs) 51.1 45.0-75.0 [facility]bergSggpcniDASKGOZTOL0571-46-14 11:10:00 Test Item Value Reference Range Interpretation Comments Lymphocytes (test code = Lymphocytes) 29.1 20.0-40.0 [facility]bergKjyadlvWGZZUJSLHF8307-56-46 11:10:00 Test Item Value Reference Range Interpretation Comments Monocytes (test code = Monocytes) 16.1 2.0-12.0 [facility] KlebergUpsacmuIHPOTEXIDK5445-84-11 11:10:00 Test Item Value Reference Range Interpretation Comments Eosinophils (test code = 3.1 See_Comment [A utomated message] The Eosinophils) system which ge nerated this result tra nsmitted reference range : <=4.0. The reference r madi was not used to int erpret this result as normal/abnormal . [facility] KlebergLkqkwdyZBZFQBEEDF0830-73-61 11:10:00 Test Item Value Reference Range Interpretation Comments Basophils (test code = 0.6 See_Comment [Aut omated message] The Basophils) system which ge nerated this result tra nsmitted reference range : <=1.0. The reference r madi was not used to int erpret this result as normal/abnormal . [facility] KlebergLefiklxTRFTRIJFNH5570-88-75 11:10:00 Test Item Value Reference Range Interpretation Comments Neutrophils # (test code = Neutrophils 2.5 1.5-8.1 #) [facility]bergKwnqgdiJPGUXXHCDL7628-10-00 11:10:00 Test Item Value Reference Range Interpretation Comments Lymphocytes # (test code = Lymphocytes 1.4 1.0-5.5 #) [facility] KlebergXsdlkdnUOXPARRWYC3561-58-48 11:10:00 Test Item Value Reference Range Interpretation Comments Monocytes # (test code 0.8 See_Comment [Aut omated message] The = Monocytes #) system which generated this result tra nsmitted reference range : <=0.8. The reference r madi was not used to int erpret this result as normal/abnormal . [facility] KlebergVbrldocAGWCAHEIDA7773-39-25 11:10:00 Test Item Value Reference Range Interpretation Comments Eosinophils # (test code 0.2 See_Comment [A utomated message] The = Eosinophils #) system whic h generated this result tra nsmitted reference range : <=0.5. The reference r madi was not used to int erpret this result as normal/abnormal . [facility] ChildrenQgivoslIMCBBBPPZK5827-90-24 11:10:00 Test Item Value Reference Range Interpretation Comments Phenytoin Free (test code = Phenytoin 0.34 1.00-2.00 Free) [facility] AND [id number] 11:05:00 Test Item Value Reference Range Interpretation Comments UA Color (test code = Colorless *NA*(07/07/19 UA Color) 6:05 AM) [facility] [id number] 11:05:00 Test Item Value Reference Range Interpretation Comments UA Turbidity (test code = Clear (07/07/19 6:05 UA Turbidity) AM) [facility] [id number] 11:05:00 Test Item Value Reference Range Interpretation Comments UA Spec Grav (test code = UA Spec 1.005 1 Grav) [facility] [id number] 11:05:00 Test Item Value Reference Range Interpretation Comments UA pH (test code = UA pH) 8.0 1 5.0-8.0 [facility] [id number] 11:05:00 Test Item Value Reference Range Interpretation Comments UA Protein (test code Negative (07/07/19 6:05 = UA Protein) AM) [facility] [id number] 11:05:00 Test Item Value Reference Range Interpretation Comments UA Glucose (test code Negative *NA*(07/07/19 = UA Glucose) 6:05 AM) [facility] AND [id number] 11:05:00 Test Item Value Reference Range Interpretation Comments UA Ketones (test code Negative *NA*(07/07/19 = UA Ketones) 6:05 AM) [facility] [id number] 11:05:00 Test Item Value Reference Range Interpretation Comments UA Bili (test code = Negative *NA*(07/07/19 UA Bili) 6:05 AM) [facility] [id number] 11:05:00 Test Item Value Reference Range Interpretation Comments UA Blood (test code = Negative (07/07/19 6:05 UA Blood) AM) [facility] [id number] 11:05:00 Test Item Value Reference Range Interpretation Comments UA Urobilinogen (test code = UA <=1.0 mg/dL 0.1-1.0 Urobilinogen) [facility] [id number] 11:05:00 Test Item Value Reference Range Interpretation Comments UA Nitrite (test code Negative (07/07/19 6:05 = UA Nitrite) AM) [facility] [id number] 11:05:00 Test Item Value Reference Range Interpretation Comments UA Leuk Est (test Negative (07/07/19 6:05 code = UA Leuk Est) AM) [facility] [id number] 11:05:00 Test Item Value Reference Range Interpretation Comments Micro? (test code = Performed (07/07/19 6:05 Micro?) AM) [facility] [id number] 11:05:00 Test Item Value Reference Range Interpretation Comments UA WBC (test code = no gt See_Comment [Automa guillaume message] The UA WBC) system which ge nerated this result transmit guillaume reference range : <=5. The reference range was not used to interpr et this result as jd l/abnormal. [facility] [id number] 11:05:00 Test Item Value Reference Range Interpretation Comments UA RBC (test code = 1 See_Comment [Automa guillaume message] The UA RBC) system which ge nerated this result transmit guillaume reference range : <=2. The reference range was not used to interpr et this result as jd l/abnormal. [facility] [id number] 11:05:00 Test Item Value Reference Range Interpretation Comments UA Mucus (test code = UA Mucus) Few /LPF [facility] [id number] 11:05:00 Test Item Value Reference Range Interpretation Comments UA Sq Epi (test code = None Seen (07/07/19 6:05 UA Sq Epi) AM) [facility] [id number] 14:26:00 Test Item Value Reference Range Interpretation Comments Glucose Lvl (test code = Glucose Lvl) 86 70-99 [facility] [id number] 14:26:00 Test Item Value Reference Range Interpretation Comments BUN (test code = BUN) 15 7-22 [facility] [id number] 14:26:00 Test Item Value Reference Range Interpretation Comments Creatinine Lvl (test code = Creatinine 0.90 0.50-1.40 Lvl) [id number] 14:26:00 Test Item Value Reference Range Interpretation Comments Sodium Lvl (test code = Sodium Lvl) 135 135-145 [place] 706110-02-09 14:26:00 Test Item Value Reference Range Interpretation Comments Potassium Lvl (test code = Potassium 4.1 3.5-5.1 Lvl) [place] 706110-02-09 14:26:00 Test Item Value Reference Range Interpretation Comments Chloride Lvl (test code = Chloride Lvl) 100 95-109 [place] 706110-02-09 14:26:00 Test Item Value Reference Range Interpretation Comments CO2 (test code = CO2) 30 24-32 [place] 706110-02-09 14:26:00 Test Item Value Reference Range Interpretation Comments Calcium Lvl (test code = Calcium Lvl) 9.2 8.5-10.5 [place] 706110-02-09 14:26:00 Test Item Value Reference Range Interpretation Comments AGAP (test code = AGAP) 9.1 10.0-20.0 [place] 706110-02-09 14:26:00 Test Item Value Reference Range Interpretation Comments eGFR (test code = eGFR) 89 [facility]2020-02-08 12:40:00 Test Item Value Reference Range Interpretation Comments Glucose Lvl (test code = Glucose Lvl) 90 70-99 [place] 706110-02-08 12:40:00 Test Item Value Reference Range Interpretation Comments BUN (test code = BUN) 16 7-22 [place] 706110-02-08 12:40:00 Test Item Value Reference Range Interpretation Comments Creatinine Lvl (test code = Creatinine 0.90 0.50-1.40 Lvl) [facility]2020-02-08 12:40:00 Test Item Value Reference Range Interpretation Comments Sodium Lvl (test code = Sodium Lvl) 134 135-145 [place] 706110-02-08 12:40:00 Test Item Value Reference Range Interpretation Comments Potassium Lvl (test code = Potassium 3.9 3.5-5.1 Lvl) [place] 706110-02-08 12:40:00 Test Item Value Reference Range Interpretation Comments Chloride Lvl (test code = Chloride Lvl) 98 95-109 [facility]2020-02-08 12:40:00 Test Item Value Reference Range Interpretation Comments CO2 (test code = CO2) 30 24-32 [facility]2020-02-08 12:40:00 Test Item Value Reference Range Interpretation Comments Calcium Lvl (test code = Calcium Lvl) 9.3 8.5-10.5 [facility]2020-02-08 12:40:00 Test Item Value Reference Range Interpretation Comments AGAP (test code = AGAP) 9.9 10.0-20.0 [facility]2020-02-08 12:40:00 Test Item Value Reference Range Interpretation Comments eGFR (test code = eGFR) 89 [facility]2020-02-07 15:43:00 Test Item Value Reference Range Interpretation Comments Glucose Lvl (test code = Glucose Lvl) 116 70-99 [facility]2020-02-07 15:43:00 Test Item Value Reference Range Interpretation Comments BUN (test code = BUN) 16 7-22 [facility]2020-02-07 15:43:00 Test Item Value Reference Range Interpretation Comments Creatinine Lvl (test code = Creatinine 0.90 0.50-1.40 Lvl) [facility]2020-02-07 15:43:00 Test Item Value Reference Range Interpretation Comments Sodium Lvl (test code = Sodium Lvl) 132 135-145 [facility]2020-02-07 15:43:00 Test Item Value Reference Range Interpretation Comments Potassium Lvl (test code = Potassium 4.5 3.5-5.1 Lvl) [facility]2020-02-07 15:43:00 Test Item Value Reference Range Interpretation Comments Chloride Lvl (test code = Chloride Lvl) 97 95-109 [facility]2020-02-07 15:43:00 Test Item Value Reference Range Interpretation Comments CO2 (test code = CO2) 28 24-32 [facility]2020-02-07 15:43:00 Test Item Value Reference Range Interpretation Comments Calcium Lvl (test code = Calcium Lvl) 8.7 8.5-10.5 [facility]2020-02-07 15:43:00 Test Item Value Reference Range Interpretation Comments AGAP (test code = AGAP) 11.5 10.0-20.0 [facility] [id number] 15:43:00 Test Item Value Reference Range Interpretation Comments eGFR (test code = eGFR) 89 [facility] AND [id number] 21:24:00 Test Item Value Reference Range Interpretation Comments UA Turbidity (test code Marked *ABN*(05/23/19 = UA Turbidity) 3:24 PM) [facility] AND [id number] 21:24:00 Test Item Value Reference Range Interpretation Comments UA Spec Grav (test code = UA Spec 1.013 1 Grav) [facility] AND [id number] 21:24:00 Test Item Value Reference Range Interpretation Comments UA pH (test code = UA pH) 8.0 1 5.0-8.0 [facility] AND [id number] 21:24:00 Test Item Value Reference Range Interpretation Comments UA Protein (test code = UA Negative mg/dL Protein) [facility] AND [id number] 21:24:00 Test Item Value Reference Range Interpretation Comments UA Glucose (test code = UA Negative mg/dL Glucose) [facility] AND [id number] 21:24:00 Test Item Value Reference Range Interpretation Comments UA Ketones (test code = UA Negative mg/dL Ketones) [facility] AND [id number] 21:24:00 Test Item Value Reference Range Interpretation Comments UA Bili (test code = Negative *NA*(05/23/19 UA Bili) 3:24 PM) [facility] AND [id number] 21:24:00 Test Item Value Reference Range Interpretation Comments UA Blood (test code = Negative (05/23/19 3:24 UA Blood) PM) [facility] AND [id number] 21:24:00 Test Item Value Reference Range Interpretation Comments UA Nitrite (test code Negative (05/23/19 3:24 = UA Nitrite) PM) [facility] AND [id number] 21:24:00 Test Item Value Reference Range Interpretation Comments UA Leuk Est (test Negative (05/23/19 3:24 code = UA Leuk Est) PM) [facility] AND [id number] 21:24:00 Test Item Value Reference Range Interpretation Comments UA Sq Epi (test code = UA Sq Occasional /LPF Epi) [facility] [id number] 21:24:00 Test Item Value Reference Range Interpretation Comments UA WBC (test code = 1 See_Comment [Automa guillaume message] The UA WBC) system which ge nerated this result transmit guillaume reference range : <=5. The reference range was not used to interpr et this result as jd l/abnormal. [facility] [id number] 21:24:00 Test Item Value Reference Range Interpretation Comments UA RBC (test code = no gt See_Comment [Automa guillaume message] The UA RBC) system which ge nerated this result transmit guillaume reference range : <=2. The reference range was not used to interpr et this result as jd l/abnormal. [facility] [id number] 21:24:00 Test Item Value Reference Range Interpretation Comments UA Mucus (test code = UA Mucus) Few /LPF [facility] [id number] 21:24:00 Test Item Value Reference Range Interpretation Comments UA Amorph Rani (test code = UA Few /HPF Amorph Rani) [facility] [id number] 21:24:00 Test Item Value Reference Range Interpretation Comments Micro? (test code = Performed *NA*(05/23/19 Micro?) 3:24 PM) [facility] [id number] 21:24:00 Test Item Value Reference Range Interpretation Comments UA Color (test code = UA Color) Ltyellow [facility] [id number] 21:24:00 Test Item Value Reference Range Interpretation Comments UA Urobilinogen (test code = UA no gt 0.1-1.0 Urobilinogen) [facility] [id number] 12:15:00 Test Item Value Reference Range Interpretation Comments Total Protein (test code = Total 6.1 6.4-8.4 Protein) [facility] [id number] 12:15:00 Test Item Value Reference Range Interpretation Comments Albumin Lvl (test code = Albumin Lvl) 2.8 3.5-5.0 [facility] [id number] 12:15:00 Test Item Value Reference Range Interpretation Comments ALT (test code = ALT) 13 See_Comment [Auto mated message] The system which ge nerated this result transmit guillaume reference range : <=65. The reference range was not used to interpr et this result as jd l/abnormal. [facility] [id number] 12:15:00 Test Item Value Reference Range Interpretation Comments AST (test code = AST) 23 See_Comment [Auto mated message] The system which ge nerated this result transmit guillaume reference range : <=37. The reference range was not used to interpr et this result as jd l/abnormal. [facility] [id number] 12:15:00 Test Item Value Reference Range Interpretation Comments Alk Phos (test code = Alk Phos) 80 39-136 [facility] [id number] 12:15:00 Test Item Value Reference Range Interpretation Comments Bili Total (test code = Bili Total) 0.4 0.2-1.3 [facility] [id number] 12:15:00 Test Item Value Reference Range Interpretation Comments B/C Ratio (test code = B/C Ratio) 20 1 6-25 [facility] [id number] 12:15:00 Test Item Value Reference Range Interpretation Comments Globulin (test code = Globulin) 3.3 2.7-4.2 [facility] [id number] 12:15:00 Test Item Value Reference Range Interpretation Comments A/G Ratio (test code = A/G Ratio) 0.8 1 0.7-1.6 [facility] [id number] 09:21:00 Test Item Value Reference Range Interpretation Comments Magnesium Lvl (test code = Magnesium 1.9 1.8-2.4 Lvl) [facility] [id number] 09:21:00 Test Item Value Reference Range Interpretation Comments Phosphorus (test code = Phosphorus) 3.1 2.5-4.5 [facility] [id number] 09:21:00 Test Item Value Reference Range Interpretation Comments WBC (test code = WBC) 5.8 3.7-10.4 [id number] 09:21:00 Test Item Value Reference Range Interpretation Comments RBC (test code = RBC) 4.01 4.70-6.10 [facility] TexasUonvhagOLHZVENLBO2037-21-11 09:21:00 Test Item Value Reference Range Interpretation Comments Hgb (test code = Hgb) 12.0 14.0-18.0 [id number] 09:21:00 Test Item Value Reference Range Interpretation Comments Hct (test code = Hct) 36.5 42.0-54.0 [facility] [id number] 09:21:00 Test Item Value Reference Range Interpretation Comments MCV (test code = MCV) 91.1 80.0-94.0 [facility] KlebergZkxcjukHBCIVXSFCX3606-15-54 09:21:00 Test Item Value Reference Range Interpretation Comments MCH (test code = MCH) 29.9 pg 27.0-31.0 [facility] Klebe[id number] 09:21:00 Test Item Value Reference Range Interpretation Comments MCHC (test code = MCHC) 32.8 32.0-36.0 [facility] [id number] 09:21:00 Test Item Value Reference Range Interpretation Comments RDW (test code = RDW) 16.0 11.5-14.5 [place] 598920-02-02 09:21:00 Test Item Value Reference Range Interpretation Comments Platelet (test code = Platelet) 184 133-450 [facility] Klebe[id number] 09:21:00 Test Item Value Reference Range Interpretation Comments MPV (test code = MPV) 8.2 7.4-10.4 [place] 598920-02-02 09:21:00 Test Item Value Reference Range Interpretation Comments Segs (test code = Segs) 65.6 45.0-75.0 [place] 598920-02-02 09:21:00 Test Item Value Reference Range Interpretation Comments Lymphocytes (test code = Lymphocytes) 18.2 20.0-40.0 [place] [address]-02-02 09:21:00 Test Item Value Reference Range Interpretation Comments Monocytes (test code = Monocytes) 13.8 2.0-12.0 [place] 598920-02-02 09:21:00 Test Item Value Reference Range Interpretation Comments Eosinophils (test code = 2.3 See_Comment [A utomated message] The Eosinophils) system which ge nerated this result tra nsmitted reference range : <=4.0. The reference r madi was not used to int erpret this result as normal/abnormal . [place] [address]-02-02 09:21:00 Test Item Value Reference Range Interpretation Comments Basophils (test code = 0.1 See_Comment [Aut omated message] The Basophils) system which ge nerated this result tra nsmitted reference range : <=1.0. The reference r madi was not used to int erpret this result as normal/abnormal . [place] 598920-02-02 09:21:00 Test Item Value Reference Range Interpretation Comments Neutrophils # (test code = Neutrophils 3.8 1.5-8.1 #) [facility] [id number] 09:21:00 Test Item Value Reference Range Interpretation Comments Lymphocytes # (test code = Lymphocytes 1.0 1.0-5.5 #) [place] [address]-02-02 09:21:00 Test Item Value Reference Range Interpretation Comments Monocytes # (test code 0.8 See_Comment [Aut omated message] The = Monocytes #) system which generated this result tra nsmitted reference range : <=0.8. The reference r madi was not used to int erpret this result as normal/abnormal . [place] 598920-02-02 09:21:00 Test Item Value Reference Range Interpretation Comments Eosinophils # (test code 0.1 See_Comment [A utomated message] The = Eosinophils #) system whic h generated this result tra nsmitted reference range : <=0.5. The reference r madi was not used to int erpret this result as normal/abnormal . [place] 598920-02-02 09:21:00 Test Item Value Reference Range Interpretation Comments Basophils # (test code 0.0 See_Comment [Aut omated message] The = Basophils #) system which generated this result tra nsmitted reference range : <=0.2. The reference r madi was not used to int erpret this result as normal/abnormal . [facility] [id number] 07:15:00 Test Item Value Reference Range Interpretation Comments Magnesium Lvl (test code = Magnesium 2.4 1.8-2.4 Lvl) [facility] [id number] 07:15:00 Test Item Value Reference Range Interpretation Comments Phosphorus (test code = Phosphorus) 2.7 2.5-4.5 [facility] K[id number] 07:15:00 Test Item Value Reference Range Interpretation Comments Segs (test code = Segs) 56.8 45.0-75.0 [facility] KlebergPaqxgstCFSSHKWZBH2183-44-39 07:15:00 Test Item Value Reference Range Interpretation Comments Lymphocytes (test code = Lymphocytes) 25.9 20.0-40.0 [place] 598920-02-01 07:15:00 Test Item Value Reference Range Interpretation Comments Monocytes (test code = Monocytes) 14.8 2.0-12.0 [facility] KlebergTekhspgUDDCYDFLNG8230-01-69 07:15:00 Test Item Value Reference Range Interpretation Comments Eosinophils (test code = 2.4 See_Comment [A utomated message] The Eosinophils) system which ge nerated this result tra nsmitted reference range : <=4.0. The reference r madi was not used to int erpret this result as normal/abnormal . [facility] KlebergPewvvhzQECQOMXKQO4487-29-74 07:15:00 Test Item Value Reference Range Interpretation Comments Basophils (test code = 0.1 See_Comment [Aut omated message] The Basophils) system which ge nerated this result tra nsmitted reference range : <=1.0. The reference r madi was not used to int erpret this result as normal/abnormal . [facility] KlebergGrugjdtCORYOYOLVK0355-66-27 07:15:00 Test Item Value Reference Range Interpretation Comments Neutrophils # (test code = Neutrophils 2.7 1.5-8.1 #) [facility] KlebergZmwbddiZBLVWPIXMS3953-19-11 07:15:00 Test Item Value Reference Range Interpretation Comments Lymphocytes # (test code = Lymphocytes 1.2 1.0-5.5 #) [place] 598920-02-01 07:15:00 Test Item Value Reference Range Interpretation Comments Monocytes # (test code 0.7 See_Comment [Aut omated message] The = Monocytes #) system which generated this result tra nsmitted reference range : <=0.8. The reference r madi was not used to int erpret this result as normal/abnormal . [place] 598920-02-01 07:15:00 Test Item Value Reference Range Interpretation Comments Eosinophils # (test code 0.1 See_Comment [A utomated message] The = Eosinophils #) system whic h generated this result tra nsmitted reference range : <=0.5. The reference r madi was not used to int erpret this result as normal/abnormal . [facility] KlebergAlbgeqyFLCWTTHVKV3274-83-90 07:15:00 Test Item Value Reference Range Interpretation Comments Basophils # (test code 0.0 See_Comment [Aut omated message] The = Basophils #) system which generated this result tra nsmitted reference range : <=0.2. The reference r madi was not used to int erpret this result as normal/abnormal . [facility] KlebergUusiffkYBIZPQWSES9627-77-57 07:15:00 Test Item Value Reference Range Interpretation Comments WBC (test code = WBC) 4.8 3.7-10.4 [facility] KlebergCrfvnyvGWIOMONUEK7230-95-21 07:15:00 Test Item Value Reference Range Interpretation Comments RBC (test code = RBC) 4.59 4.70-6.10 [facility] KlebergQhqcxcmTVUSAMUSCO3761-07-19 07:15:00 Test Item Value Reference Range Interpretation Comments Hgb (test code = Hgb) 14.0 14.0-18.0 [facility] KlebergLdnsxkbOZCDINXYMX6027-16-22 07:15:00 Test Item Value Reference Range Interpretation Comments Hct (test code = Hct) 41.5 42.0-54.0 [facility] KlebergOyfaxohICBBEPFAWU9194-96-08 07:15:00 Test Item Value Reference Range Interpretation Comments MCV (test code = MCV) 90.4 80.0-94.0 [facility] KlebergWqzdrckCVAOAZTDJO9359-78-74 07:15:00 Test Item Value Reference Range Interpretation Comments MCH (test code = MCH) 30.5 pg 27.0-31.0 [facility] KlebergBvsxtfwYIFYZYANRF8466-43-38 07:15:00 Test Item Value Reference Range Interpretation Comments MCHC (test code = MCHC) 33.7 32.0-36.0 [facility] KlebergTtqffkkRGNALXFTEV9926-03-82 07:15:00 Test Item Value Reference Range Interpretation Comments RDW (test code = RDW) 16.0 11.5-14.5 [facility] KlebergDxsqbifTBSFUQYJUW8526-12-03 07:15:00 Test Item Value Reference Range Interpretation Comments Platelet (test code = Platelet) 204 133-450 [facility] KlebergKilvmlmEDQIODBPNK4118-44-47 07:15:00 Test Item Value Reference Range Interpretation Comments MPV (test code = MPV) 8.6 7.4-10.4 [facility]2020-02-01 07:15:00 Test Item Value Reference Range Interpretation Comments Ca Ion WB (test code = Ca Ion WB) 1.31 1.05-1.25 [facility]2020-02-01 07:15:00 Test Item Value Reference Range Interpretation Comments Ca Norm WB (test code = Ca Norm WB) 1.32 1.05-1.25 [facility]2020-01-31 08:37:00 Test Item Value Reference Range Interpretation Comments Magnesium Lvl (test code = Magnesium 2.3 1.8-2.4 Lvl) [facility]2020-01-31 08:37:00 Test Item Value Reference Range Interpretation Comments Phosphorus (test code = Phosphorus) 3.3 2.5-4.5 [facility] KlebergMwndstyULJWQUDWJW2553-21-69 08:37:00 Test Item Value Reference Range Interpretation Comments Segs (test code = Segs) 54.1 45.0-75.0 [facility] KlebergUtzqqpaENNBRRXDYI6361-56-64 08:37:00 Test Item Value Reference Range Interpretation Comments Lymphocytes (test code = Lymphocytes) 28.3 20.0-40.0 [facility] KlebergUsrfzqxBHVNLTQMWP0634-95-81 08:37:00 Test Item Value Reference Range Interpretation Comments Monocytes (test code = Monocytes) 13.8 2.0-12.0 [facility] KlebergEgokicyFOHVHKXTKM4981-99-29 08:37:00 Test Item Value Reference Range Interpretation Comments Eosinophils (test code = 3.3 See_Comment [A utomated message] The Eosinophils) system which ge nerated this result tra nsmitted reference range : <=4.0. The reference r madi was not used to int erpret this result as normal/abnormal . [facility] KlebergEhnvuuxYGCGIXNDWU7400-62-93 08:37:00 Test Item Value Reference Range Interpretation Comments Basophils (test code = 0.5 See_Comment [Aut omated message] The Basophils) system which ge nerated this result tra nsmitted reference range : <=1.0. The reference r madi was not used to int erpret this result as normal/abnormal . [facility] KlebergEoplpyoRHJSETTWIX1385-12-68 08:37:00 Test Item Value Reference Range Interpretation Comments Neutrophils # (test code = Neutrophils 2.5 1.5-8.1 #) [place] 598920-01-31 08:37:00 Test Item Value Reference Range Interpretation Comments Lymphocytes # (test code = Lymphocytes 1.3 1.0-5.5 #) [place] 598920-01-31 08:37:00 Test Item Value Reference Range Interpretation Comments Monocytes # (test code 0.7 See_Comment [Aut omated message] The = Monocytes #) system which generated this result tra nsmitted reference range : <=0.8. The reference r madi was not used to int erpret this result as normal/abnormal . [place] 598920-01-31 08:37:00 Test Item Value Reference Range Interpretation Comments Eosinophils # (test code 0.2 See_Comment [A utomated message] The = Eosinophils #) system whic h generated this result tra nsmitted reference range : <=0.5. The reference r madi was not used to int erpret this result as normal/abnormal . [place] 598920-01-31 08:37:00 Test Item Value Reference Range Interpretation Comments Basophils # (test code 0.0 See_Comment [Aut omated message] The = Basophils #) system which generated this result tra nsmitted reference range : <=0.2. The reference r madi was not used to int erpret this result as normal/abnormal . [place] 598920-01-31 08:37:00 Test Item Value Reference Range Interpretation Comments WBC (test code = WBC) 4.7 3.7-10.4 [place] 598920-01-31 08:37:00 Test Item Value Reference Range Interpretation Comments RBC (test code = RBC) 3.73 4.70-6.10 [place] [address]85-01-31 08:37:00 Test Item Value Reference Range Interpretation Comments Hgb (test code = Hgb) 11.2 14.0-18.0 [place] [address]85-01-31 08:37:00 Test Item Value Reference Range Interpretation Comments Hct (test code = Hct) 33.8 42.0-54.0 [place] 598920-01-31 08:37:00 Test Item Value Reference Range Interpretation Comments MCV (test code = MCV) 90.4 80.0-94.0 [facility]MxgggdhQDYUJWGYZT9072-27-12 08:37:00 Test Item Value Reference Range Interpretation Comments MCH (test code = MCH) 29.9 pg 27.0-31.0 [facility]IwskeboYOVZQFQEPU9223-19-16 08:37:00 Test Item Value Reference Range Interpretation Comments MCHC (test code = MCHC) 33.1 32.0-36.0 [facility]DlyrgwjLPSTUMAUXV4415-31-05 08:37:00 Test Item Value Reference Range Interpretation Comments RDW (test code = RDW) 15.7 11.5-14.5 [facility] HeightsTulmmhiTVZOTMVMDW3205-29-30 08:37:00 Test Item Value Reference Range Interpretation Comments Platelet (test code = Platelet) 176 133-450 [facility] HospitalPqbnmqaSHSUTQUAEV6492-68-37 08:37:00 Test Item Value Reference Range Interpretation Comments MPV (test code = MPV) 8.3 7.4-10.4 [facility] HeightsPARATHYROID [id number] 08:37:00 Test Item Value Reference Range Interpretation Comments Ca Ion WB (test code = Ca Ion WB) 1.16 1.05-1.25 [facility] HeightsPARATHYROID [id number] 08:37:00 Test Item Value Reference Range Interpretation Comments Ca Norm WB (test code = Ca Norm WB) 1.16 1.05-1.25 [facility] HeightsBACTERIAL - [id number] 17:12:00 Test Item Value Reference Range Interpretation Comments MRSA by PCR (test Negative (05/17/19 11:12 code = MRSA by PCR) AM) [facility] HeightsCARDIAC [id number] 17:12:00 Test Item Value Reference Range Interpretation Comments Troponin-I (test code no gt See_Comment [Auto mated message] The = Troponin-I) system which g enerated this result transmit guillaume reference range : <=0.40. The reference r madi was not used to interpr et this result as jd l/abnormal. [facility]annCARDIAC [id number] 17:12:00 Test Item Value Reference Range Interpretation Comments BNP (test code = BNP) 30 [facility] HeightsCHEM [id number] 17:12:00 Test Item Value Reference Range Interpretation Comments Total Protein (test code = Total 6.3 6.4-8.4 Protein) [facility] HeightsEconodata [id number] 17:12:00 Test Item Value Reference Range Interpretation Comments Albumin Lvl (test code = Albumin Lvl) 3.1 3.5-5.0 [facility] Heights[facility] [id number] 17:12:00 Test Item Value Reference Range Interpretation Comments ALT (test code = ALT) 17 See_Comment [Auto mated message] The system which ge nerated this result transmit guillaume reference range : <=65. The reference range was not used to interpr et this result as jd l/abnormal. [facility] TexasHitched[facility] [id number] 17:12:00 Test Item Value Reference Range Interpretation Comments AST (test code = AST) 19 See_Comment [Auto mated message] The system which ge nerated this result transmit guillaume reference range : <=37. The reference range was not used to interpr et this result as jd l/abnormal. [facility] Texas[facility] [id number] 17:12:00 Test Item Value Reference Range Interpretation Comments Alk Phos (test code = Alk Phos) 95 39-136 [facility] [id number] 17:12:00 Test Item Value Reference Range Interpretation Comments Bili Total (test code = Bili Total) 0.4 0.2-1.3 [facility] Heights[facility] [id number] 17:12:00 Test Item Value Reference Range Interpretation Comments B/C Ratio (test code = B/C Ratio) 23 1 6-25 [facility] [id number] 17:12:00 Test Item Value Reference Range Interpretation Comments Globulin (test code = Globulin) 3.2 2.7-4.2 [facility] [id number] 17:12:00 Test Item Value Reference Range Interpretation Comments A/G Ratio (test code = A/G Ratio) 1.0 1 0.7-1.6 [facility] [id number] 17:12:00 Test Item Value Reference Range Interpretation Comments Ammonia (test code = Ammonia) 14.0 [facility] [id number] 17:12:00 Test Item Value Reference Range Interpretation Comments Lactic Acid Lvl (test code = Lactic 1.1 0.5-2.2 Acid Lvl) [facility] [id number] 17:12:00 Test Item Value Reference Range Interpretation Comments Procalcitonin Lvl (test no gt See_Comment [Au tomated message] code = Procalcitonin Lvl) Th e system which generated this result transmitted ref erence range: <=0.10. The reference range was not used to interpr et this result as normal/abnormal . [facility] [id number] 17:12:00 Test Item Value Reference Range Interpretation Comments Osmolality (test code = Osmolality) 250 280-300 [facility] HeightsNxdxuzvGSUQLXNKXVIYV6038-23-45 17:12:00 Test Item Value Reference Range Interpretation Comments Cortisol (test code = Cortisol) 13.3 [facility] HospitalGadbqcaJLMHVKUVTD1660-35-23 17:12:00 Test Item Value Reference Range Interpretation Comments PT (test code = PT) 13.9 s 12.0-14.7 [facility]bergVpfexeaXCXDCSFYTR3866-04-80 17:12:00 Test Item Value Reference Range Interpretation Comments INR (test code = INR) 1.07 1 0.85-1.17 [facility] HospitalJwtptbqPAHETVSRWJ1317-37-08 17:12:00 Test Item Value Reference Range Interpretation Comments PTT (test code = PTT) 30.1 s 22.9-35.8 [facility] [id number] 17:12:00 Test Item Value Reference Range Interpretation Comments Source Respiratory Nasophrngl Swb Panel PCR (test code = *NA*(05/17/19 11:12 AM) Source Respiratory Panel PCR) [facility] [id number] 17:12:00 Test Item Value Reference Range Interpretation Comments Influenza A PCR (test Negative *NA*(05/17/19 code = Influenza A PCR) 11:12 AM) [facility]2020-01-30 17:12:00 Test Item Value Reference Range Interpretation Comments Influenza B PCR (test Negative *NA*(05/17/19 code = Influenza B PCR) 11:12 AM) [facility]2020-01-30 17:12:00 Test Item Value Reference Range Interpretation Comments RSV PCR (test code = Negative *NA*(1/30/20 RSV PCR) 11:12 AM) [facility] [id number] 17:12:00 Test Item Value Reference Range Interpretation Comments Ca Ion WB (test code = Ca Ion WB) 1.15 1.05-1.25 [facility] [id number] 17:12:00 Test Item Value Reference Range Interpretation Comments Ca Norm WB (test code = Ca Norm WB) 1.12 1.05-1.25 [facility] [id number] 17:12:00 Test Item Value Reference Range Interpretation Comments Hgb A1C (test code = Hgb A1C) 5.8 [facility] [id number] 17:12:00 Test Item Value Reference Range Interpretation Comments U Sodium (test code = U Sodium) 101 [facility]2020-01-30 17:12:00 Test Item Value Reference Range Interpretation Comments U Osmolality (test code = U Osmolality) 443 300-800 [facility]2019-12-24 11:10:00 Test Item Value Reference Range Interpretation Comments Glucose Lvl (test code = Glucose Lvl) 124 70-99 [facility]2019-12-24 11:10:00 Test Item Value Reference Range Interpretation Comments BUN (test code = BUN) 21 7-22 [facility]2019-12-24 11:10:00 Test Item Value Reference Range Interpretation Comments Creatinine Lvl (test code = Creatinine 0.99 0.50-1.40 Lvl) [facility]2019-12-24 11:10:00 Test Item Value Reference Range Interpretation Comments Sodium Lvl (test code = Sodium Lvl) 141 135-145 [facility]2019-12-24 11:10:00 Test Item Value Reference Range Interpretation Comments Potassium Lvl (test code = Potassium 4.2 3.5-5.1 Lvl) [facility]2019-12-24 11:10:00 Test Item Value Reference Range Interpretation Comments Chloride Lvl (test code = Chloride Lvl) 106 95-109 [facility]2019-12-24 11:10:00 Test Item Value Reference Range Interpretation Comments CO2 (test code = CO2) 28 24-32 [facility]2019-12-24 11:10:00 Test Item Value Reference Range Interpretation Comments Calcium Lvl (test code = Calcium Lvl) 9.2 8.5-10.5 [facility]2019-12-24 11:10:00 Test Item Value Reference Range Interpretation Comments eGFR (test code = eGFR) 79 [facility]2019-12-24 11:10:00 Test Item Value Reference Range Interpretation Comments AGAP (test code = AGAP) 11.2 10.0-20.0 [facility] KlebergVxiosqbBULJWOWXWL4557-22-96 11:10:00 Test Item Value Reference Range Interpretation Comments WBC (test code = WBC) 10.3 3.7-10.4 [facility] KlebergNqllvhnNLWOIRNJJP5096-25-08 11:10:00 Test Item Value Reference Range Interpretation Comments RBC (test code = RBC) 3.52 4.70-6.10 [facility] KlebergPqwsizhAIVXEONNSJ7186-24-03 11:10:00 Test Item Value Reference Range Interpretation Comments Hgb (test code = Hgb) 11.3 14.0-18.0 [facility] KlebergPkdowqfFHFRRZXGCW9960-73-99 11:10:00 Test Item Value Reference Range Interpretation Comments Hct (test code = Hct) 34.0 42.0-54.0 [facility] KlebergGoxwqrmQNLZCYTOFW5618-41-76 11:10:00 Test Item Value Reference Range Interpretation Comments MCV (test code = MCV) 96.6 80.0-94.0 [facility] KlebergLrpxaexENHEMHENTZ8398-50-09 11:10:00 Test Item Value Reference Range Interpretation Comments MCH (test code = MCH) 32.1 pg 27.0-31.0 [facility] KlebergOwkqyanDCTKOPNJNS6308-60-09 11:10:00 Test Item Value Reference Range Interpretation Comments MCHC (test code = MCHC) 33.2 32.0-36.0 [facility] KlebergIaktdleIIAHJDDUHX4246-14-09 11:10:00 Test Item Value Reference Range Interpretation Comments RDW (test code = RDW) 17.2 11.5-14.5 [facility] KlebergMwgdmorWPJVGMWONS8828-36-41 11:10:00 Test Item Value Reference Range Interpretation Comments Platelet (test code = Platelet) 153 133-450 [facility] KlebergAavxhkmVFINVAUCDU1978-13-16 11:10:00 Test Item Value Reference Range Interpretation Comments MPV (test code = MPV) 8.4 7.4-10.4 [facility] KlebergXfrmlqtSTVIMNMHEC2683-50-19 11:10:00 Test Item Value Reference Range Interpretation Comments Segs (test code = Segs) 77.2 45.0-75.0 [facility] KlebergXfvvsxvQOOWJULYTG3733-65-58 11:10:00 Test Item Value Reference Range Interpretation Comments Lymphocytes (test code = Lymphocytes) 13.4 20.0-40.0 [facility] KlebergWvcdwyhZROTCULZOD6636-35-48 11:10:00 Test Item Value Reference Range Interpretation Comments Monocytes (test code = Monocytes) 8.1 2.0-12.0 [facility] KlebergPseodutTOOJDKTUMI8617-95-84 11:10:00 Test Item Value Reference Range Interpretation Comments Eosinophils (test code = 0.9 See_Comment [A utomated message] The Eosinophils) system which ge nerated this result tra nsmitted reference range : <=4.0. The reference r madi was not used to int erpret this result as normal/abnormal . [facility] KlebergClwjqnyMKUMHRTDZG3872-50-80 11:10:00 Test Item Value Reference Range Interpretation Comments Basophils (test code = 0.4 See_Comment [Aut omated message] The Basophils) system which ge nerated this result tra nsmitted reference range : <=1.0. The reference r madi was not used to int erpret this result as normal/abnormal . [facility] KlebergNiewhccOSDFPFAAQS4808-19-03 11:10:00 Test Item Value Reference Range Interpretation Comments Neutrophils # (test code = Neutrophils 8.0 1.5-8.1 #) [facility] KlebergTcqlgwdQKGLUCWUNE0437-02-69 11:10:00 Test Item Value Reference Range Interpretation Comments Lymphocytes # (test code = Lymphocytes 1.4 1.0-5.5 #) [facility] KlebergDwsnaueMEOOOHGJNO4033-26-47 11:10:00 Test Item Value Reference Range Interpretation Comments Monocytes # (test code 0.8 See_Comment [Aut omated message] The = Monocytes #) system which generated this result tra nsmitted reference range : <=0.8. The reference r madi was not used to int erpret this result as normal/abnormal . [facility] KlebergNnhgdjiRQDLHREFQP5798-93-53 11:10:00 Test Item Value Reference Range Interpretation Comments Eosinophils # (test code 0.1 See_Comment [A utomated message] The = Eosinophils #) system whic h generated this result tra nsmitted reference range : <=0.5. The reference r madi was not used to int erpret this result as normal/abnormal . [facility] HeightsOxvyrapIARILFRSPB2472-47-33 23:57:00 Test Item Value Reference Range Interpretation Comments Hgb (test code = Hgb) 12.0 14.0-18.0 [facility] KlebergUrkrwgfMCNCEWGMPO8557-20-89 23:57:00 Test Item Value Reference Range Interpretation Comments Hct (test code = Hct) 34.8 42.0-54.0 [facility] TexasGvqelxwBTTIMHUGLG3819-19-32 16:29:00 Test Item Value Reference Range Interpretation Comments Hgb (test code = Hgb) 11.1 14.0-18.0 [facility] TexasGazqwkaDRWSAGRKTF9008-89-03 16:29:00 Test Item Value Reference Range Interpretation Comments Hct (test code = Hct) 32.7 42.0-54.0 [facility] [id number] 21:14:00 Test Item Value Reference Range Interpretation Comments ABO/Rh (test code = ABO/Rh) O POS [facility] [employer] [facility] [id number] 21:14:00 Test Item Value Reference Range Interpretation Comments Antibody Scrn (test Negative (04/08/19 code = Antibody Scrn) 3:14 PM) [facility] TexasYampwpfLIKQMSAHAMVQ4077-26-42 21:14:00 Test Item Value Reference Range Interpretation Comments AGAP (test code = AGAP) 10.7 10.0-20.0 [facility] TexasLrvvideNYYBLPORVBGL9657-60-09 21:14:00 Test Item Value Reference Range Interpretation Comments B/C Ratio (test code = B/C Ratio) 22 1 6-25 [facility] TexasVbhajbkJLOQXBREJHKX4189-89-40 21:14:00 Test Item Value Reference Range Interpretation Comments Globulin (test code = Globulin) 4.4 2.7-4.2 [facility]iscoVwzydqaTRCNKZACJBBH3101-89-25 21:14:00 Test Item Value Reference Range Interpretation Comments A/G Ratio (test code = A/G Ratio) 0.7 1 0.7-1.6 [facility]iscoNepbeypADHFGOGBBFXC6595-15-99 21:14:00 Test Item Value Reference Range Interpretation Comments Glucose Lvl (test code = Glucose Lvl) 128 70-99 [facility] FriscoCiovfnaFVGNPDPBEQCG6169-20-28 21:14:00 Test Item Value Reference Range Interpretation Comments BUN (test code = BUN) 23 7-22 [facility] HospitalJarletnMKVSKCMTFJFK5094-84-89 21:14:00 Test Item Value Reference Range Interpretation Comments Creatinine Lvl (test code = Creatinine 1.04 0.50-1.40 Lvl) [facility] HospitalIxijoeoCHITQNDIEPVX7662-17-32 21:14:00 Test Item Value Reference Range Interpretation Comments Sodium Lvl (test code = Sodium Lvl) 141 135-145 [facility] HospitalFsxuwjuYPZHKXSXZHEP8670-83-24 21:14:00 Test Item Value Reference Range Interpretation Comments Potassium Lvl (test code = Potassium 4.7 3.5-5.1 Lvl) [facility] HospitalXyibejxCNJFELYPJGCG9382-18-68 21:14:00 Test Item Value Reference Range Interpretation Comments Chloride Lvl (test code = Chloride Lvl) 107 95-109 [facility] HospitalZshbpsiICDYEYSMUYKO5791-19-98 21:14:00 Test Item Value Reference Range Interpretation Comments CO2 (test code = CO2) 28 24-32 [facility] HospitalLaviszfSZEEDZXZPGTM1784-15-08 21:14:00 Test Item Value Reference Range Interpretation Comments Calcium Lvl (test code = Calcium Lvl) 9.6 8.5-10.5 [facility] HospitalLxjvxqnCLQANHKJCWEE9782-62-32 21:14:00 Test Item Value Reference Range Interpretation Comments Total Protein (test code = Total 7.5 6.4-8.4 Protein) [facility] HospitalOgpslhzMBIDOAMJPFDE6514-66-71 21:14:00 Test Item Value Reference Range Interpretation Comments Albumin Lvl (test code = Albumin Lvl) 3.1 3.5-5.0 [facility] HospitalDxhvadsRTNXZIUXQDRL4829-49-00 21:14:00 Test Item Value Reference Range Interpretation Comments ALT (test code = ALT) 32 See_Comment [Auto mated message] The system which ge nerated this result transmit guillaume reference range : <=65. The reference range was not used to interpr et this result as jd l/abnormal. [facility] HospitalYryvhmmWTSYHJBAEYJG3914-09-42 21:14:00 Test Item Value Reference Range Interpretation Comments AST (test code = AST) 27 See_Comment [Auto mated message] The system which ge nerated this result transmit guillaume reference range : <=37. The reference range was not used to interpr et this result as jd l/abnormal. [facility] HospitalRourexuCMKQBEAMUIGX2510-58-27 21:14:00 Test Item Value Reference Range Interpretation Comments Alk Phos (test code = Alk Phos) 99 39-136 [facility] HospitalXlqplamJFGVCFWQXKLG1844-84-81 21:14:00 Test Item Value Reference Range Interpretation Comments Bili Total (test code = Bili Total) 0.2 0.2-1.3 [facility] HospitalPpundhyHDUJMZVBYUEC4966-43-89 21:14:00 Test Item Value Reference Range Interpretation Comments eGFR (test code = eGFR) 75 [facility] KlebergDpvhlbeVIHQDNEXTT7287-05-42 21:14:00 Test Item Value Reference Range Interpretation Comments WBC (test code = WBC) 7.0 3.7-10.4 [facility] KlebergMjirvzkBCXAXPPGXY4008-02-44 21:14:00 Test Item Value Reference Range Interpretation Comments RBC (test code = RBC) 3.79 4.70-6.10 [facility] KlebergPcqbawrLKVUJGAUUV5653-99-50 21:14:00 Test Item Value Reference Range Interpretation Comments MCV (test code = MCV) 96.3 80.0-94.0 [facility] KlebergTxsgohlEYIRDOKVCT0638-77-77 21:14:00 Test Item Value Reference Range Interpretation Comments MCH (test code = MCH) 32.4 pg 27.0-31.0 [facility] KlebergYtgxuczMLQCDOBCQW3795-56-34 21:14:00 Test Item Value Reference Range Interpretation Comments MCHC (test code = MCHC) 33.7 32.0-36.0 [facility] KlebergWqbgpnsUJODEYOGTS8530-53-91 21:14:00 Test Item Value Reference Range Interpretation Comments RDW (test code = RDW) 17.0 11.5-14.5 [facility] KlebergXpmdvltMHBLOWBQAO6683-90-44 21:14:00 Test Item Value Reference Range Interpretation Comments Platelet (test code = Platelet) 169 133-450 [facility] KlebergWyypnorFKEWRNCWUP2492-78-16 21:14:00 Test Item Value Reference Range Interpretation Comments MPV (test code = MPV) 8.4 7.4-10.4 [facility] KlebergPirntelPPDTQZZLQF8998-17-95 21:14:00 Test Item Value Reference Range Interpretation Comments INR (test code = INR) 1.12 1 0.85-1.17 [facility] KlebergBeauwqvISWEAFJKTG1035-66-54 21:14:00 Test Item Value Reference Range Interpretation Comments PT (test code = PT) 14.5 s 12.0-14.7 [facility] KlebergTlmctwhPHLOHCLKDN0565-65-34 21:14:00 Test Item Value Reference Range Interpretation Comments PTT (test code = PTT) 28.5 s 22.9-35.8 [facility] KlebergNsldmzqCADCWAVIQX9999-78-61 21:14:00 Test Item Value Reference Range Interpretation Comments Segs (test code = Segs) 67.5 45.0-75.0 [facility] KlebergZnifugnNBFHNJNLRS9745-47-00 21:14:00 Test Item Value Reference Range Interpretation Comments Lymphocytes (test code = Lymphocytes) 20.3 20.0-40.0 [facility] KlebergVszsbncJWJRJDBYRS2036-75-60 21:14:00 Test Item Value Reference Range Interpretation Comments Monocytes (test code = Monocytes) 10.2 2.0-12.0 [facility] KlebergIxxjsltKVXNZOUIPT6868-06-11 21:14:00 Test Item Value Reference Range Interpretation Comments Eosinophils (test code = 1.4 See_Comment [A utomated message] The Eosinophils) system which ge nerated this result tra nsmitted reference range : <=4.0. The reference r madi was not used to int erpret this result as normal/abnormal . [facility] KlebergYkrcrypUKWJSGAJBO0117-08-55 21:14:00 Test Item Value Reference Range Interpretation Comments Basophils (test code = 0.6 See_Comment [Aut omated message] The Basophils) system which ge nerated this result tra nsmitted reference range : <=1.0. The reference r madi was not used to int erpret this result as normal/abnormal . [facility] KlebergLkhitacMBKAEEPPTQ9324-28-71 21:14:00 Test Item Value Reference Range Interpretation Comments Neutrophils # (test code = Neutrophils 4.7 1.5-8.1 #) [facility] KlebergQwemvlyDOXAJVATCT2846-95-51 21:14:00 Test Item Value Reference Range Interpretation Comments Lymphocytes # (test code = Lymphocytes 1.4 1.0-5.5 #) [facility] KlebergRyucmtiNMBGHFPPVX1740-66-50 21:14:00 Test Item Value Reference Range Interpretation Comments Monocytes # (test code 0.7 See_Comment [Aut omated message] The = Monocytes #) system which generated this result tra nsmitted reference range : <=0.8. The reference r madi was not used to int erpret this result as normal/abnormal . [facility] KlebergUthnpudHTCEUDDBGF9225-44-98 21:14:00 Test Item Value Reference Range Interpretation Comments Eosinophils # (test code 0.1 See_Comment [A utomated message] The = Eosinophils #) system whic h generated this result tra nsmitted reference range : <=0.5. The reference r madi was not used to int erpret this result as normal/abnormal . [facility]2019-12-22 21:14:00 Test Item Value Reference Range Interpretation Comments Occult Bld Stl (test Positive *ABN*(04/08/19 code = Occult Bld Stl) 3:14 PM) [facility] KlebergBnvdnvpETHISULHEO4124-36-46 12:41:00 Test Item Value Reference Range Interpretation Comments MPV (test code = MPV) 7.8 7.4-10.4 [facility] KlebergAxlmqneXWXDHWLPRS9415-72-90 12:41:00 Test Item Value Reference Range Interpretation Comments Segs (test code = Segs) 59.7 45.0-75.0 [facility] KlebergTizdociGYFGCBSVVC6052-35-13 12:41:00 Test Item Value Reference Range Interpretation Comments Lymphocytes (test code = Lymphocytes) 27.1 20.0-40.0 [facility] KlebergPlsycvhWLKTUDQAUP4254-45-64 12:41:00 Test Item Value Reference Range Interpretation Comments Monocytes (test code = Monocytes) 9.9 2.0-12.0 [facility] KlebergTjskitjPRDHQDTLER3049-31-83 12:41:00 Test Item Value Reference Range Interpretation Comments Eosinophils (test code = 2.5 See_Comment [A utomated message] The Eosinophils) system which ge nerated this result tra nsmitted reference range : <=4.0. The reference r madi was not used to int erpret this result as normal/abnormal . [facility] KlebergEkwiqcfXDXSQXPBUL3949-36-30 12:41:00 Test Item Value Reference Range Interpretation Comments Basophils (test code = 0.8 See_Comment [Aut omated message] The Basophils) system which ge nerated this result tra nsmitted reference range : <=1.0. The reference r madi was not used to int erpret this result as normal/abnormal . [facility] KlebergJbxvlezSLNOEWYYDM1125-25-92 12:41:00 Test Item Value Reference Range Interpretation Comments Neutrophils # (test code = Neutrophils 3.0 1.5-8.1 #) [facility] KlebergHtxibheQDOYRXDMHT2332-87-20 12:41:00 Test Item Value Reference Range Interpretation Comments Lymphocytes # (test code = Lymphocytes 1.4 1.0-5.5 #) [facility] KlebergOqopcueMZTUAJDEXX5529-59-65 12:41:00 Test Item Value Reference Range Interpretation Comments Monocytes # (test code 0.5 See_Comment [Aut omated message] The = Monocytes #) system which generated this result tra nsmitted reference range : <=0.8. The reference r madi was not used to int erpret this result as normal/abnormal . [facility]EtytknwFSQQDITYDF3077-99-98 12:41:00 Test Item Value Reference Range Interpretation Comments Eosinophils # (test code 0.1 See_Comment [A utomated message] The = Eosinophils #) system whic h generated this result tra nsmitted reference range : <=0.5. The reference r madi was not used to int erpret this result as normal/abnormal . [facility]2019-12-20 12:41:00 Test Item Value Reference Range Interpretation Comments Glucose Lvl (test code = Glucose Lvl) 101 70-99 [facility]2019-12-20 12:41:00 Test Item Value Reference Range Interpretation Comments BUN (test code = BUN) 24 7-22 [place] [id number] 12:41:00 Test Item Value Reference Range Interpretation Comments Creatinine Lvl (test code = Creatinine 0.88 0.50-1.40 Lvl) [facility]2019-12-20 12:41:00 Test Item Value Reference Range Interpretation Comments Sodium Lvl (test code = Sodium Lvl) 141 135-145 [facility]2019-12-20 12:41:00 Test Item Value Reference Range Interpretation Comments Potassium Lvl (test code = Potassium 4.3 3.5-5.1 Lvl) [facility]2019-12-20 12:41:00 Test Item Value Reference Range Interpretation Comments Chloride Lvl (test code = Chloride Lvl) 108 95-109 [facility]2019-12-20 12:41:00 Test Item Value Reference Range Interpretation Comments CO2 (test code = CO2) 27 24-32 [facility]2019-12-20 12:41:00 Test Item Value Reference Range Interpretation Comments Calcium Lvl (test code = Calcium Lvl) 9.5 8.5-10.5 [facility]2019-12-20 12:41:00 Test Item Value Reference Range Interpretation Comments Total Protein (test code = Total 6.6 6.4-8.4 Protein) [facility]2019-12-20 12:41:00 Test Item Value Reference Range Interpretation Comments Albumin Lvl (test code = Albumin Lvl) 2.9 3.5-5.0 [facility]2019-12-20 12:41:00 Test Item Value Reference Range Interpretation Comments ALT (test code = ALT) 27 See_Comment [Auto mated message] The system which ge nerated this result transmit guillaume reference range : <=65. The reference range was not used to interpr et this result as jd l/abnormal. [facility]2019-12-20 12:41:00 Test Item Value Reference Range Interpretation Comments AST (test code = AST) 21 See_Comment [Auto mated message] The system which ge nerated this result transmit guillaume reference range : <=37. The reference range was not used to interpr et this result as jd l/abnormal. [facility]2019-12-20 12:41:00 Test Item Value Reference Range Interpretation Comments Alk Phos (test code = Alk Phos) 82 39-136 [facility]2019-12-20 12:41:00 Test Item Value Reference Range Interpretation Comments Bili Total (test code = Bili Total) 0.4 0.2-1.3 [facility]2019-12-20 12:41:00 Test Item Value Reference Range Interpretation Comments AGAP (test code = AGAP) 10.3 10.0-20.0 [facility]2019-12-20 12:41:00 Test Item Value Reference Range Interpretation Comments B/C Ratio (test code = B/C Ratio) 27 1 6-25 [facility]2019-12-20 12:41:00 Test Item Value Reference Range Interpretation Comments Globulin (test code = Globulin) 3.7 2.7-4.2 [place] [id number] 12:41:00 Test Item Value Reference Range Interpretation Comments A/G Ratio (test code = A/G Ratio) 0.8 1 0.7-1.6 [facility]2019-12-20 12:41:00 Test Item Value Reference Range Interpretation Comments eGFR (test code = eGFR) 90 [facility]bergWmkjdvaSRREQRYAAG4460-16-59 12:41:00 Test Item Value Reference Range Interpretation Comments WBC (test code = WBC) 5.1 3.7-10.4 [facility]bergYaqwfvvJDDYEZSNLH8656-83-26 12:41:00 Test Item Value Reference Range Interpretation Comments RBC (test code = RBC) 3.46 4.70-6.10 [facility]bergZurhvhkJFEWFJVBML6559-34-00 12:41:00 Test Item Value Reference Range Interpretation Comments Hgb (test code = Hgb) 11.0 14.0-18.0 [facility]bergDuotbjyLFRBSQSOTO2860-14-62 12:41:00 Test Item Value Reference Range Interpretation Comments Hct (test code = Hct) 33.0 42.0-54.0 [facility]bergCjgivpbTJKEGYWKPH2639-05-34 12:41:00 Test Item Value Reference Range Interpretation Comments MCV (test code = MCV) 95.2 80.0-94.0 [facility] KlebergTsdmsnoMVSRGETGEP9256-19-68 12:41:00 Test Item Value Reference Range Interpretation Comments MCH (test code = MCH) 31.7 pg 27.0-31.0 [facility] KlebergRuqyocrADUURYJUCU8642-87-65 12:41:00 Test Item Value Reference Range Interpretation Comments MCHC (test code = MCHC) 33.3 32.0-36.0 [facility] KlebergRutdapjINMTXBKGFZ8785-08-28 12:41:00 Test Item Value Reference Range Interpretation Comments RDW (test code = RDW) 16.6 11.5-14.5 [facility]bergOknivdyGJKPRFEXNY9952-01-08 12:41:00 Test Item Value Reference Range Interpretation Comments Platelet (test code = Platelet) 212 133-450 [facility]2019-12-20 10:25:00 Test Item Value Reference Range Interpretation Comments Glucose Lvl (test code = Glucose Lvl) 90 70-99 [facility]2019-12-20 10:25:00 Test Item Value Reference Range Interpretation Comments BUN (test code = BUN) 24 7-22 [facility]2019-12-20 10:25:00 Test Item Value Reference Range Interpretation Comments Creatinine Lvl (test code = Creatinine 0.87 0.50-1.40 Lvl) [facility]2019-12-20 10:25:00 Test Item Value Reference Range Interpretation Comments Sodium Lvl (test code = Sodium Lvl) 139 135-145 [facility]2019-12-20 10:25:00 Test Item Value Reference Range Interpretation Comments Potassium Lvl (test code = Potassium 5.3 3.5-5.1 Lvl) [facility]2019-12-20 10:25:00 Test Item Value Reference Range Interpretation Comments Chloride Lvl (test code = Chloride Lvl) 109 95-109 [facility]2019-12-20 10:25:00 Test Item Value Reference Range Interpretation Comments CO2 (test code = CO2) 24 -32 [facility]2019-12-20 10:25:00 Test Item Value Reference Range Interpretation Comments AGAP (test code = AGAP) 11.3 10.0-20.0 [facility]2019-12-20 10:25:00 Test Item Value Reference Range Interpretation Comments Calcium Lvl (test code = Calcium Lvl) 9.2 8.5-10.5 [facility]2019-12-20 10:25:00 Test Item Value Reference Range Interpretation Comments eGFR (test code = eGFR) 90 [facility]2019-12-19 16:57:00 Test Item Value Reference Range Interpretation Comments Glucose Lvl (test code = Glucose Lvl) 181 70-99 [facility]2019-12-19 16:57:00 Test Item Value Reference Range Interpretation Comments BUN (test code = BUN) 24 - [facility]2019-12-19 16:57:00 Test Item Value Reference Range Interpretation Comments Creatinine Lvl (test code = Creatinine 0.95 0.50-1.40 Lvl) [facility]2019-12-19 16:57:00 Test Item Value Reference Range Interpretation Comments Sodium Lvl (test code = Sodium Lvl) 141 135-145 [facility]2019-12-19 16:57:00 Test Item Value Reference Range Interpretation Comments Potassium Lvl (test code = Potassium 4.1 3.5-5.1 Lvl) [facility]2019-12-19 16:57:00 Test Item Value Reference Range Interpretation Comments Chloride Lvl (test code = Chloride Lvl) 107 95-109 [facility]2019-12-19 16:57:00 Test Item Value Reference Range Interpretation Comments CO2 (test code = CO2) 26 24-32 [facility]2019-12-19 16:57:00 Test Item Value Reference Range Interpretation Comments Calcium Lvl (test code = Calcium Lvl) 9.1 8.5-10.5 [facility]2019-12-19 16:57:00 Test Item Value Reference Range Interpretation Comments eGFR (test code = eGFR) 83 [facility]2019-12-19 16:57:00 Test Item Value Reference Range Interpretation Comments AGAP (test code = AGAP) 12.1 10.0-20.0 [facility]bergPvfptxdVMRNRPQNRW8874-53-85 16:57:00 Test Item Value Reference Range Interpretation Comments WBC (test code = WBC) 5.5 3.7-10.4 [facility] KlebergBslfacfLFWOTOLMMC9871-03-34 16:57:00 Test Item Value Reference Range Interpretation Comments RBC (test code = RBC) 3.47 4.70-6.10 [facility]bergNherkfzBNFCFRFWQH5587-13-68 16:57:00 Test Item Value Reference Range Interpretation Comments Hgb (test code = Hgb) 10.7 14.0-18.0 [facility] KlebergLtuojucJWIUPQWWFK7083-49-07 16:57:00 Test Item Value Reference Range Interpretation Comments Hct (test code = Hct) 32.9 42.0-54.0 [facility]bergXsnqdfhAZJUVNQBIL7462-52-03 16:57:00 Test Item Value Reference Range Interpretation Comments MCV (test code = MCV) 94.7 80.0-94.0 [facility] KlebergLlszfmkQNHMFGWLGD7136-07-85 16:57:00 Test Item Value Reference Range Interpretation Comments MCH (test code = MCH) 30.9 pg 27.0-31.0 [facility]bergHnypbbnSOQQDARRHS8410-72-92 16:57:00 Test Item Value Reference Range Interpretation Comments MCHC (test code = MCHC) 32.6 32.0-36.0 [place] [id number] 16:57:00 Test Item Value Reference Range Interpretation Comments RDW (test code = RDW) 16.6 11.5-14.5 [facility]bergFmnxrczVWBFLOXEHN1026-02-32 16:57:00 Test Item Value Reference Range Interpretation Comments Platelet (test code = Platelet) 220 133-450 [facility] KlebergIbegcriTDCDOXKDJQ4919-06-72 16:57:00 Test Item Value Reference Range Interpretation Comments MPV (test code = MPV) 7.6 7.4-10.4 [facility]bergCsssecnTJYXTGAURP1870-10-93 16:57:00 Test Item Value Reference Range Interpretation Comments Segs (test code = Segs) 64.8 45.0-75.0 [facility] KlebergDvlobslVZLOPJVVOV4469-79-75 16:57:00 Test Item Value Reference Range Interpretation Comments Lymphocytes (test code = Lymphocytes) 24.8 20.0-40.0 [facility] KlebergQleqsycWNLQGQPQSY8886-66-93 16:57:00 Test Item Value Reference Range Interpretation Comments Monocytes (test code = Monocytes) 7.9 2.0-12.0 [facility] KlebergYphewxlTFGLJKFKXE3551-25-86 16:57:00 Test Item Value Reference Range Interpretation Comments Eosinophils (test code = 1.7 See_Comment [A utomated message] The Eosinophils) system which ge nerated this result tra nsmitted reference range : <=4.0. The reference r madi was not used to int erpret this result as normal/abnormal . [facility] KlebergTwsjsveIFQGHJHHUY0752-85-93 16:57:00 Test Item Value Reference Range Interpretation Comments Basophils (test code = 0.8 See_Comment [Aut omated message] The Basophils) system which ge nerated this result tra nsmitted reference range : <=1.0. The reference r madi was not used to int erpret this result as normal/abnormal . [facility] KlebergThyvbwfZJWFUHSHYP2154-96-44 16:57:00 Test Item Value Reference Range Interpretation Comments Neutrophils # (test code = Neutrophils 3.5 1.5-8.1 #) [facility]bergMygkmuuSUKMDTQRAM7240-03-18 16:57:00 Test Item Value Reference Range Interpretation Comments Lymphocytes # (test code = Lymphocytes 1.4 1.0-5.5 #) [facility] KlebergOrabqruKVKSSHWSHD0333-50-38 16:57:00 Test Item Value Reference Range Interpretation Comments Monocytes # (test code 0.4 See_Comment [Aut omated message] The = Monocytes #) system which generated this result tra nsmitted reference range : <=0.8. The reference r madi was not used to int erpret this result as normal/abnormal . [facility]bergPmliemuBGGZWBWMNV8767-82-74 16:57:00 Test Item Value Reference Range Interpretation Comments Eosinophils # (test code 0.1 See_Comment [A utomated message] The = Eosinophils #) system whic h generated this result tra nsmitted reference range : <=0.5. The reference r madi was not used to int erpret this result as normal/abnormal . [facility]bergPuvtbrlVGCNKWBITT5474-40-47 10:31:00 Test Item Value Reference Range Interpretation Comments WBC (test code = WBC) 5.2 3.7-10.4 [facility] KlebergOxduhtuUCRIMSBOQH4981-39-04 10:31:00 Test Item Value Reference Range Interpretation Comments RBC (test code = RBC) 3.01 4.70-6.10 [facility] KlebergIiugnayDUKHRWQHNM9079-49-07 10:31:00 Test Item Value Reference Range Interpretation Comments Hgb (test code = Hgb) 9.8 14.0-18.0 [facility] KlebergMhzipoiNSFKRUHFYM1489-06-59 10:31:00 Test Item Value Reference Range Interpretation Comments Hct (test code = Hct) 28.8 42.0-54.0 [facility] KlebergGjgsxzlZQUPRCDKNA0902-71-10 10:31:00 Test Item Value Reference Range Interpretation Comments MCV (test code = MCV) 95.5 80.0-94.0 [facility] KlebergCtwfdnmWIFXCYJTWK9210-77-92 10:31:00 Test Item Value Reference Range Interpretation Comments MCH (test code = MCH) 32.4 pg 27.0-31.0 [facility] KlebergLirvgzkLRWRNWKVHE3365-16-86 10:31:00 Test Item Value Reference Range Interpretation Comments MCHC (test code = MCHC) 33.9 32.0-36.0 [facility] KlebergWdqastrPFPJDWRTFF0803-58-88 10:31:00 Test Item Value Reference Range Interpretation Comments RDW (test code = RDW) 16.7 11.5-14.5 [facility]bergXftruxjROEKTAREXC2164-82-39 10:31:00 Test Item Value Reference Range Interpretation Comments Platelet (test code = Platelet) 216 133-450 [facility] KlebergGzrzuqgMRXCQHYZJH6618-92-32 10:31:00 Test Item Value Reference Range Interpretation Comments MPV (test code = MPV) 7.9 7.4-10.4 [facility] KlebergPeggcycDVTEDLQEGW6589-27-55 10:31:00 Test Item Value Reference Range Interpretation Comments Segs (test code = Segs) 56.8 45.0-75.0 [facility] KlebergMqfjiuwSKIJXQUOMY1857-89-88 10:31:00 Test Item Value Reference Range Interpretation Comments Lymphocytes (test code = Lymphocytes) 30.6 20.0-40.0 [facility] KlebergEsgazkdGWBCTEPXGP4748-02-14 10:31:00 Test Item Value Reference Range Interpretation Comments Monocytes (test code = Monocytes) 9.4 2.0-12.0 [facility]bergSydsiwpPBPVGOQTXU5102-03-75 10:31:00 Test Item Value Reference Range Interpretation Comments Eosinophils (test code = 2.2 See_Comment [A utomated message] The Eosinophils) system which ge nerated this result tra nsmitted reference range : <=4.0. The reference r madi was not used to int erpret this result as normal/abnormal . [facility] KlebergHockncvNABOVYZJJG3213-66-94 10:31:00 Test Item Value Reference Range Interpretation Comments Basophils (test code = 1.0 See_Comment [Aut omated message] The Basophils) system which ge nerated this result tra nsmitted reference range : <=1.0. The reference r madi was not used to int erpret this result as normal/abnormal . [facility] KlebergIeozjgbRAHGRUFUBQ4685-87-78 10:31:00 Test Item Value Reference Range Interpretation Comments Neutrophils # (test code = Neutrophils 3.0 1.5-8.1 #) [facility] KlebergBvhinhdERSEKXLWKD7757-19-90 10:31:00 Test Item Value Reference Range Interpretation Comments Lymphocytes # (test code = Lymphocytes 1.6 1.0-5.5 #) [facility]bergYklapnjTYTZRXBKGX0489-94-27 10:31:00 Test Item Value Reference Range Interpretation Comments Monocytes # (test code 0.5 See_Comment [Aut omated message] The = Monocytes #) system which generated this result tra nsmitted reference range : <=0.8. The reference r madi was not used to int erpret this result as normal/abnormal . [place] [id number] 10:31:00 Test Item Value Reference Range Interpretation Comments Eosinophils # (test code 0.1 See_Comment [A utomated message] The = Eosinophils #) system whic h generated this result tra nsmitted reference range : <=0.5. The reference r madi was not used to int erpret this result as normal/abnormal . [facility]bergAhkrzyoYOGECIHTVN4419-76-09 10:31:00 Test Item Value Reference Range Interpretation Comments Basophils # (test code 0.1 See_Comment [Aut omated message] The = Basophils #) system which generated this result tra nsmitted reference range : <=0.2. The reference r madi was not used to int erpret this result as normal/abnormal . [facility]2019-12-17 07:47:00 Test Item Value Reference Range Interpretation Comments Magnesium Lvl (test code = Magnesium 2.0 1.8-2.4 Lvl) [facility]2019-12-17 07:47:00 Test Item Value Reference Range Interpretation Comments Phosphorus (test code = Phosphorus) 3.7 2.5-4.5 [facility]2019-12-17 07:47:00 Test Item Value Reference Range Interpretation Comments Ca Ion WB (test code = Ca Ion WB) 1.10 1.05-1.25 [facility]2019-12-17 07:47:00 Test Item Value Reference Range Interpretation Comments Ca Norm WB (test code = Ca Norm WB) 1.15 1.05-1.25 [facility]2019-12-16 07:24:00 Test Item Value Reference Range Interpretation Comments Magnesium Lvl (test code = Magnesium 2.0 1.8-2.4 Lvl) [facility]2019-12-16 07:24:00 Test Item Value Reference Range Interpretation Comments Phosphorus (test code = Phosphorus) 3.5 2.5-4.5 [facility]2019-12-16 07:24:00 Test Item Value Reference Range Interpretation Comments Ca Ion WB (test code = Ca Ion WB) 1.21 1.05-1.25 [facility]2019-12-16 07:24:00 Test Item Value Reference Range Interpretation Comments Ca Norm WB (test code = Ca Norm WB) 1.25 1.05-1.25 [facility] [id number] 17:02:00 Test Item Value Reference Range Interpretation Comments BNP (test code = BNP) 111 [facility] [id number] 16:41:00 Test Item Value Reference Range Interpretation Comments U Osmolality (test code = U Osmolality) 560 300-800 [facility] [id number] 05:31:00 Test Item Value Reference Range Interpretation Comments BNP (test code = BNP) 89 [facility]annCHEM [id number] 05:31:00 Test Item Value Reference Range Interpretation Comments Magnesium Lvl (test code = Magnesium 1.8 1.8-2.4 Lvl) [facility]CHE[facility] [id number] 05:31:00 Test Item Value Reference Range Interpretation Comments Phosphorus (test code = Phosphorus) 3.1 2.5-4.5 [facility]annPARATHYROID [id number] 05:31:00 Test Item Value Reference Range Interpretation Comments Ca Ion WB (test code = Ca Ion WB) 1.16 1.05-1.25 [facility]annPARATHYROID [id number] 05:31:00 Test Item Value Reference Range Interpretation Comments Ca Norm WB (test code = Ca Norm WB) 1.20 1.05-1.25 [facility] [id number] 21:58:00 Test Item Value Reference Range Interpretation Comments UA Color (test code = Yellow *NA*(03/31/19 UA Color) 3:58 PM) [facility] [id number] 21:58:00 Test Item Value Reference Range Interpretation Comments UA Turbidity (test code Slight Cloudy = UA Turbidity) (03/31/19 3:58 PM) [facility] [id number] 21:58:00 Test Item Value Reference Range Interpretation Comments UA Spec Grav (test code = UA Spec 1.020 1 Grav) [facility] [id number] 21:58:00 Test Item Value Reference Range Interpretation Comments UA pH (test code = UA pH) 7.5 1 5.0-8.0 [facility] [id number] 21:58:00 Test Item Value Reference Range Interpretation Comments UA Protein (test code = UA Negative mg/dL Protein) [facility] [id number] 21:58:00 Test Item Value Reference Range Interpretation Comments UA Glucose (test code = UA Negative mg/dL Glucose) [facility] [id number] 21:58:00 Test Item Value Reference Range Interpretation Comments UA Ketones (test code = UA Negative mg/dL Ketones) [facility] AND [id number] 21:58:00 Test Item Value Reference Range Interpretation Comments UA Bili (test code = Negative *NA*(03/31/19 UA Bili) 3:58 PM) [facility] AND [id number] 21:58:00 Test Item Value Reference Range Interpretation Comments UA Blood (test code = Negative (03/31/19 3:58 UA Blood) PM) [facility] AND [id number] 21:58:00 Test Item Value Reference Range Interpretation Comments UA Urobilinogen (test code = UA 0.2 0.1-1.0 Urobilinogen) [facility] AND [id number] 21:58:00 Test Item Value Reference Range Interpretation Comments UA Nitrite (test code Negative (03/31/19 3:58 = UA Nitrite) PM) [facility] AND [id number] 21:58:00 Test Item Value Reference Range Interpretation Comments UA Leuk Est (test Negative (03/31/19 3:58 code = UA Leuk Est) PM) [facility] AND [id number] 21:58:00 Test Item Value Reference Range Interpretation Comments UA Amorph Rani (test code = Occasional /HPF UA Amorph Rani) [facility] AND [id number] 21:58:00 Test Item Value Reference Range Interpretation Comments UA Sq Epi (test code = None Seen (03/31/19 UA Sq Epi) 3:58 PM) [facility] [id number] 17:36:00 Test Item Value Reference Range Interpretation Comments Procalcitonin Lvl <0.05 ng/mL See_Comment [Automate d message] (test code = The system whic h Procalcitonin Lvl) generated this result transmit guillaume reference range : <=0.10. The reference range was not used to interpret this result as normal/abnormal . [facility]2019-12-12 17:36:00 Test Item Value Reference Range Interpretation Comments B/C Ratio (test code = B/C Ratio) 18 1 6-25 [facility]2019-12-12 17:36:00 Test Item Value Reference Range Interpretation Comments Total Protein (test code = Total 5.8 6.4-8.4 Protein) [facility]2019-12-12 17:36:00 Test Item Value Reference Range Interpretation Comments Albumin Lvl (test code = Albumin Lvl) 2.4 3.5-5.0 [facility]2019-12-12 17:36:00 Test Item Value Reference Range Interpretation Comments Globulin (test code = Globulin) 3.4 2.7-4.2 [facility]2019-12-12 17:36:00 Test Item Value Reference Range Interpretation Comments A/G Ratio (test code = A/G Ratio) 0.7 1 0.7-1.6 [place] [id number] 17:36:00 Test Item Value Reference Range Interpretation Comments ALT (test code = ALT) 17 See_Comment [Auto mated message] The system which ge nerated this result transmit guillaume reference range : <=65. The reference range was not used to interpr et this result as jd l/abnormal. [facility]2019-12-12 17:36:00 Test Item Value Reference Range Interpretation Comments AST (test code = AST) 14 See_Comment [Auto mated message] The system which ge nerated this result transmit guillaume reference range : <=37. The reference range was not used to interpr et this result as jd l/abnormal. [facility]2019-12-12 17:36:00 Test Item Value Reference Range Interpretation Comments Alk Phos (test code = Alk Phos) 81 39-136 [facility]2019-12-12 17:36:00 Test Item Value Reference Range Interpretation Comments Bili Total (test code = Bili Total) 0.4 0.2-1.3 [id number] 17:36:00 Test Item Value Reference Range Interpretation Comments Sed Rate (test code = 45 See_Comment [Auto mated message] The Sed Rate) system which ge nerated this result transmit guillaume reference range : <=15. The reference range was not used to interpr et this result as jd l/abnormal. [facility] TexasEphuidfMEBWPZVKEZ2028-77-12 17:36:00 Test Item Value Reference Range Interpretation Comments C-REACTIVE PROTEIN (test code = 22.6 C-REACTIVE PROTEIN) [facility] [id number] 15:26:00 Test Item Value Reference Range Interpretation Comments U Sodium (test code = U Sodium) 99 [facility]2019-12-12 15:26:00 Test Item Value Reference Range Interpretation Comments U Osmolality (test code = U Osmolality) 452 300-800 [facility]2019-12-12 15:26:00 Test Item Value Reference Range Interpretation Comments U Potassium (test code = U Potassium) 34.2 [facility] [id number] 15:26:00 Test Item Value Reference Range Interpretation Comments U Chloride (test code = U Chloride) 115 [facility] [id number] 15:26:00 Test Item Value Reference Range Interpretation Comments U Creatinine (test code = U Creatinine) 52.60 [facility] [employer] [id number] 14:40:00 Test Item Value Reference Range Interpretation Comments Osmolality (test code = Osmolality) 260 280-300 [facility] [id number] 11:26:00 Test Item Value Reference Range Interpretation Comments Osmolality (test code = Osmolality) 250 280-300 [facility] [employer] [id number] 06:30:00 Test Item Value Reference Range Interpretation Comments ABO/Rh (test code = ABO/Rh) O POS [facility] [employer] [id number] 06:30:00 Test Item Value Reference Range Interpretation Comments Antibody Scrn (test Negative (03/29/19 code = Antibody Scrn) 12:30 AM) [facility] - [id number] 06:16:00 Test Item Value Reference Range Interpretation Comments MRSA by PCR (test Negative (03/29/19 12:16 code = MRSA by PCR) AM) [facility] HeightsMgchcguDGNFJJEHQY4194-02-54 06:16:00 Test Item Value Reference Range Interpretation Comments Basophils # (test code 0.1 See_Comment [Aut omated message] The = Basophils #) system which generated this result tra nsmitted reference range : <=0.2. The reference r madi was not used to int erpret this result as normal/abnormal . [facility]bergBhrailtQNUSUBLPMC5800-10-75 03:36:00 Test Item Value Reference Range Interpretation Comments PT (test code = PT) 13.7 s 12.0-14.7 [facility] KlebergYklwxvoFXUFMSTBNX6558-31-14 03:36:00 Test Item Value Reference Range Interpretation Comments INR (test code = INR) 1.07 1 0.85-1.17 [place] [id number] 03:36:00 Test Item Value Reference Range Interpretation Comments PTT (test code = PTT) 30.9 s 22.9-35.8 [facility] KlebergVdqihslOLHGDJZEUJ5579-73-90 03:36:00 Test Item Value Reference Range Interpretation Comments Estimated % Lysis Rapid 3.0 See_Comment [Au tomated message] The (test code = Estimated syste m which generated % Lysis Rapid) this result t ransmitted reference range : <=7.5. The reference r madi was not used to int erpret this result as normal/abnormal . [place] [id number] 03:36:00 Test Item Value Reference Range Interpretation Comments ACT (TEG) Rapid (test code = ACT (TEG) 113 s 86-118 Rapid) [facility] KlebergOxqxmodFXGTVBVYRM9628-35-75 03:36:00 Test Item Value Reference Range Interpretation Comments Split Point Rapid (test code = Split 0.5 min Point Rapid) [place] [id number] 03:36:00 Test Item Value Reference Range Interpretation Comments R-time Rapid (test code = R-time 0.7 min 0.4-0.7 Rapid) [facility] KlebergZywtjgkENPTBQVQJZ7343-93-07 03:36:00 Test Item Value Reference Range Interpretation Comments K-time Rapid (test code = K-time 1.5 min 0.6-2.3 Rapid) [facility]bergGrkmiueLNZZYRKJQX6737-63-20 03:36:00 Test Item Value Reference Range Interpretation Comments Angle Rapid (test code = Angle 73 degrees 64-80 Rapid) [facility]bergAswoensPNUZKOLYUY5892-77-14 03:36:00 Test Item Value Reference Range Interpretation Comments Max Amplitude Rapid (test code = Max 62 mm 52-71 Amplitude Rapid) [facility] KlebergGtoqazrSEKHUFYSIX3029-35-84 03:36:00 Test Item Value Reference Range Interpretation Comments G-value Rapid (test code = G-value 8.2 5.0-11.6 Rapid) [facility]annCHEM [id number] 02:53:00 Test Item Value Reference Range Interpretation Comments Osmolality (test code = Osmolality) 251 280-300 [facility] [id number] 23:27:00 Test Item Value Reference Range Interpretation Comments UA Color (test code = Yellow *NA*(03/28/19 UA Color) 5:27 PM) [facility] [id number] 23:27:00 Test Item Value Reference Range Interpretation Comments UA Turbidity (test code = Clear (03/28/19 5:27 UA Turbidity) PM) [facility] [id number] 23:27:00 Test Item Value Reference Range Interpretation Comments UA Spec Grav (test code = UA Spec 1.010 1 Grav) [facility] [id number] 23:27:00 Test Item Value Reference Range Interpretation Comments UA pH (test code = UA pH) 7.0 1 5.0-8.0 [facility] [id number] 23:27:00 Test Item Value Reference Range Interpretation Comments UA Protein (test code = UA Negative mg/dL Protein) [facility] [id number] 23:27:00 Test Item Value Reference Range Interpretation Comments UA Glucose (test code = UA Negative mg/dL Glucose) [facility] [id number] 23:27:00 Test Item Value Reference Range Interpretation Comments UA Ketones (test code = UA Negative mg/dL Ketones) [facility] [id number] 23:27:00 Test Item Value Reference Range Interpretation Comments UA Bili (test code = Negative *NA*(03/28/19 UA Bili) 5:27 PM) [facility] [id number] 23:27:00 Test Item Value Reference Range Interpretation Comments UA Blood (test code = Negative (03/28/19 5:27 UA Blood) PM) [facility] [id number] 23:27:00 Test Item Value Reference Range Interpretation Comments UA Nitrite (test code Negative (03/28/19 5:27 = UA Nitrite) PM) [facility] [id number] 23:27:00 Test Item Value Reference Range Interpretation Comments UA Leuk Est (test code Trace *ABN*(03/28/19 = UA Leuk Est) 5:27 PM) [facility] [id number] 23:27:00 Test Item Value Reference Range Interpretation Comments UA Sq Epi (test code = UA Sq Occasional /LPF Epi) [facility] [id number] 23:27:00 Test Item Value Reference Range Interpretation Comments UA WBC (test code = 8 See_Comment [Automa guillaume message] The UA WBC) system which ge nerated this result transmit guillaume reference range : <=5. The reference range was not used to interpr et this result as jd l/abnormal. [facility] AND [id number] 23:27:00 Test Item Value Reference Range Interpretation Comments UA RBC (test code = 2 See_Comment [Automa guillaume message] The UA RBC) system which ge nerated this result transmit guillaume reference range : <=2. The reference range was not used to interpr et this result as jd l/abnormal. [facility] [id number] 23:27:00 Test Item Value Reference Range Interpretation Comments UA Bacteria (test code = UA Occasional /HPF Bacteria) [facility] [id number] 23:27:00 Test Item Value Reference Range Interpretation Comments UA Urobilinogen (test code = UA <=1.0 mg/dL 0.1-1.0 Urobilinogen) [facility] [id number] 23:27:00 Test Item Value Reference Range Interpretation Comments U Sodium (test code = U Sodium) 98 [facility] [id number] 23:27:00 Test Item Value Reference Range Interpretation Comments U Potassium (test code = U Potassium) 39.2 [facility] [id number] 23:27:00 Test Item Value Reference Range Interpretation Comments U Chloride (test code = U Chloride) 110 [facility] [id number] 23:27:00 Test Item Value Reference Range Interpretation Comments U Osmolality (test code = U Osmolality) 465 300-800 [facility]CARDIAC [id number] 22:09:00 Test Item Value Reference Range Interpretation Comments Troponin-I (test code no gt See_Comment [Auto mated message] The = Troponin-I) system which g enerated this result transmit guillaume reference range : <=0.40. The reference r madi was not used to interpr et this result as jd l/abnormal. [facility]CARDIAC [id number] 22:09:00 Test Item Value Reference Range Interpretation Comments BNP (test code = BNP) 74 [facility] HeightsCHEM [id number] 22:09:00 Test Item Value Reference Range Interpretation Comments eGFR (test code = eGFR) 95 [facility] HeightsBvrctbhXUEVNLCPIV6625-91-03 22:09:00 Test Item Value Reference Range Interpretation Comments WBC X 10x3 (test code = WBC X 10x3) 5.8 3.7-10.4 [facility] KlebergByfzsqyDXSNCZUXEB5927-51-77 22:09:00 Test Item Value Reference Range Interpretation Comments RBC X 10x6 (test code = RBC X 10x6) 3.67 4.70-6.10 [facility]bergDntgvhpVJYYNEASTT2569-03-11 22:09:00 Test Item Value Reference Range Interpretation Comments Hgb (test code = Hgb) 11.6 14.0-18.0 [facility] KlebergNapalvwDTJNCQFVEP9937-79-11 22:09:00 Test Item Value Reference Range Interpretation Comments Hct (test code = Hct) 33.4 42.0-54.0 [facility]bergInlnxuwHMAOYLABVY0186-58-10 22:09:00 Test Item Value Reference Range Interpretation Comments MCV (test code = MCV) 90.9 80.0-94.0 [facility] KlebergCkzkutaSLGZMZEDJB2941-46-39 22:09:00 Test Item Value Reference Range Interpretation Comments MCH (test code = MCH) 31.6 pg 27.0-31.0 [facility] KlebergJzwsvgyXTQJMDITPR6344-87-11 22:09:00 Test Item Value Reference Range Interpretation Comments MCHC (test code = MCHC) 34.8 32.0-36.0 [facility] KlebergFpcocnaASRRGNHRVJ7698-80-90 22:09:00 Test Item Value Reference Range Interpretation Comments RDW (test code = RDW) 16.5 11.5-14.5 [facility] KlebergBbshcrrZBLSRDCWHF1291-85-51 22:09:00 Test Item Value Reference Range Interpretation Comments Platelet (test code = Platelet) 198 133-450 [facility] KlebergCkoamkwIZBIMZFHMO8959-98-85 22:09:00 Test Item Value Reference Range Interpretation Comments MPV (test code = MPV) 6.9 7.4-10.4 [facility] KlebergKabmhnuHFPAXOQUBI7644-68-51 22:09:00 Test Item Value Reference Range Interpretation Comments PT (test code = PT) 14.1 s 12.0-14.7 [facility] KlebergYoofrxfDVSOKBZCMK3022-34-40 22:09:00 Test Item Value Reference Range Interpretation Comments INR (test code = INR) 1.11 1 0.85-1.17 [facility] KlebergEyxpyqxIRYEYUTIJN1629-58-66 22:09:00 Test Item Value Reference Range Interpretation Comments Segs (test code = Segs) 59.5 45.0-75.0 [facility] KlebergLanghitFYEQELHHRU4072-58-36 22:09:00 Test Item Value Reference Range Interpretation Comments Lymphocytes (test code = Lymphocytes) 21.9 20.0-40.0 [facility]bergCwytzxjUQNUNPANQH5010-27-43 22:09:00 Test Item Value Reference Range Interpretation Comments Monocytes (test code = Monocytes) 16.3 2.0-12.0 [facility] KlebergSlrrezgDGTREZXORS1573-29-80 22:09:00 Test Item Value Reference Range Interpretation Comments Eosinophils (test code = 1.8 See_Comment [A utomated message] The Eosinophils) system which ge nerated this result tra nsmitted reference range : <=4.0. The reference r madi was not used to int erpret this result as normal/abnormal . [facility] KlebergTvvjjuhHBZRRIVPED5497-36-26 22:09:00 Test Item Value Reference Range Interpretation Comments Basophils (test code = 0.5 See_Comment [Aut omated message] The Basophils) system which ge nerated this result tra nsmitted reference range : <=1.0. The reference r madi was not used to int erpret this result as normal/abnormal . [facility] KlebergInsxzjsEPZTGHQJJE8601-74-06 22:09:00 Test Item Value Reference Range Interpretation Comments Neutrophils # (test code = Neutrophils 3.5 1.5-8.1 #) [facility] KlebergXqvnvwdQBQATPMPYZ9611-79-89 22:09:00 Test Item Value Reference Range Interpretation Comments Lymphocytes # (test code = Lymphocytes 1.3 1.0-5.5 #) [facility] KlebergUzefnyvQQGDXPROPE9713-68-51 22:09:00 Test Item Value Reference Range Interpretation Comments Monocytes # (test code 1.0 See_Comment [Aut omated message] The = Monocytes #) system which generated this result tra nsmitted reference range : <=0.8. The reference r madi was not used to int erpret this result as normal/abnormal . [facility] KlebergCsciwpnMWPMXIRHBA6916-53-44 22:09:00 Test Item Value Reference Range Interpretation Comments Eosinophils # (test code 0.1 See_Comment [A utomated message] The = Eosinophils #) system whic h generated this result tra nsmitted reference range : <=0.5. The reference r madi was not used to int erpret this result as normal/abnormal . [facility] KlebergIaqtidcGHNNIHEKKD2741-86-36 22:09:00 Test Item Value Reference Range Interpretation Comments Basophils # (test code 0.0 See_Comment [Aut omated message] The = Basophils #) system which generated this result tra nsmitted reference range : <=0.2. The reference r madi was not used to int erpret this result as normal/abnormal . [facility]2019-12-11 22:07:00 Test Item Value Reference Range Interpretation Comments Glucose Lvl (test code = Glucose Lvl) 107 70-99 [facility]2019-12-11 22:07:00 Test Item Value Reference Range Interpretation Comments BUN (test code = BUN) 15 7-22 [facility]2019-12-11 22:07:00 Test Item Value Reference Range Interpretation Comments Creatinine Lvl (test code = Creatinine 0.77 0.50-1.40 Lvl) [facility]2019-12-11 22:07:00 Test Item Value Reference Range Interpretation Comments Sodium Lvl (test code = Sodium Lvl) 120 135-145 [facility]2019-12-11 22:07:00 Test Item Value Reference Range Interpretation Comments Potassium Lvl (test code = Potassium 4.9 3.5-5.1 Lvl) [facility]2019-12-11 22:07:00 Test Item Value Reference Range Interpretation Comments Chloride Lvl (test code = Chloride Lvl) 86 95-109 [facility]2019-12-11 22:07:00 Test Item Value Reference Range Interpretation Comments CO2 (test code = CO2) 26 24-32 [facility]2019-12-11 22:07:00 Test Item Value Reference Range Interpretation Comments AGAP (test code = AGAP) 12.9 10.0-20.0 [facility]2019-12-11 22:07:00 Test Item Value Reference Range Interpretation Comments Calcium Lvl (test code = Calcium Lvl) 8.3 8.5-10.5 [facility] TexasYakqslwFZZBFKYWAELN7292-28-90 15:16:00 Test Item Value Reference Range Interpretation Comments Sodium Lvl (test code = Sodium Lvl) 134 135-145 [facility]2019-11-22 06:37:00 Test Item Value Reference Range Interpretation Comments Glucose Lvl (test code = Glucose Lvl) 250 70-99 [facility]2019-11-22 06:37:00 Test Item Value Reference Range Interpretation Comments BUN (test code = BUN) 22 7-22 [facility]2019-11-22 06:37:00 Test Item Value Reference Range Interpretation Comments Creatinine Lvl (test code = Creatinine 1.04 0.50-1.40 Lvl) [facility]2019-11-22 06:37:00 Test Item Value Reference Range Interpretation Comments Sodium Lvl (test code = Sodium Lvl) 133 135-145 [facility]2019-11-22 06:37:00 Test Item Value Reference Range Interpretation Comments Potassium Lvl (test code = Potassium 4.6 3.5-5.1 Lvl) [facility]2019-11-22 06:37:00 Test Item Value Reference Range Interpretation Comments Chloride Lvl (test code = Chloride Lvl) 104 95-109 [facility]2019-11-22 06:37:00 Test Item Value Reference Range Interpretation Comments CO2 (test code = CO2) 23 24-32 [facility]2019-11-22 06:37:00 Test Item Value Reference Range Interpretation Comments Calcium Lvl (test code = Calcium Lvl) 8.1 8.5-10.5 [facility]2019-11-22 06:37:00 Test Item Value Reference Range Interpretation Comments eGFR (test code = eGFR) 75 [facility]2019-11-22 06:37:00 Test Item Value Reference Range Interpretation Comments AGAP (test code = AGAP) 10.6 10.0-20.0 [facility] KlebergXxcltjmKCYBHVYIZL7436-29-49 06:37:00 Test Item Value Reference Range Interpretation Comments Segs (test code = Segs) 75.8 45.0-75.0 [facility] KlebergZxadamrVPXYNCXETG4993-30-85 06:37:00 Test Item Value Reference Range Interpretation Comments Lymphocytes (test code = Lymphocytes) 11.7 20.0-40.0 [facility] KlebergQgshsuhUYFGBQBIIR2563-76-43 06:37:00 Test Item Value Reference Range Interpretation Comments Monocytes (test code = Monocytes) 10.9 2.0-12.0 [facility] KlebergCtentllVOAFJOBDMG3702-15-44 06:37:00 Test Item Value Reference Range Interpretation Comments Eosinophils (test code = 1.3 See_Comment [A utomated message] The Eosinophils) system which ge nerated this result tra nsmitted reference range : <=4.0. The reference r madi was not used to int erpret this result as normal/abnormal . [facility] KlebergTkxxnhmMYKGWFUCHP1578-12-82 06:37:00 Test Item Value Reference Range Interpretation Comments Basophils (test code = 0.3 See_Comment [Aut omated message] The Basophils) system which ge nerated this result tra nsmitted reference range : <=1.0. The reference r madi was not used to int erpret this result as normal/abnormal . [facility] KlebergIwkcjauKRUDHGEMUG8941-67-47 06:37:00 Test Item Value Reference Range Interpretation Comments Neutrophils # (test code = Neutrophils 6.1 1.5-8.1 #) [facility] KlebergDkfhhibLJSTDANRXB2042-84-66 06:37:00 Test Item Value Reference Range Interpretation Comments Lymphocytes # (test code = Lymphocytes 0.9 1.0-5.5 #) [facility] KlebergCadrwjbJMCQZDHGMJ7796-17-83 06:37:00 Test Item Value Reference Range Interpretation Comments Monocytes # (test code 0.9 See_Comment [Aut omated message] The = Monocytes #) system which generated this result tra nsmitted reference range : <=0.8. The reference r madi was not used to int erpret this result as normal/abnormal . [facility] KlebergAtgexclRFXDPVPBMK1764-99-51 06:37:00 Test Item Value Reference Range Interpretation Comments Eosinophils # (test code 0.1 See_Comment [A utomated message] The = Eosinophils #) system whic h generated this result tra nsmitted reference range : <=0.5. The reference r madi was not used to int erpret this result as normal/abnormal . [facility] KlebergMckjwbwDAUEYMJNPG5355-86-28 06:37:00 Test Item Value Reference Range Interpretation Comments WBC (test code = WBC) 8.1 3.7-10.4 [facility] KlebergFqdszjsAQUWAESSIP4305-16-57 06:37:00 Test Item Value Reference Range Interpretation Comments RBC (test code = RBC) 2.86 4.70-6.10 [facility]bergMetspcdQYEIDASBKN9594-18-18 06:37:00 Test Item Value Reference Range Interpretation Comments Hgb (test code = Hgb) 9.0 14.0-18.0 [facility] KlebergZocbmeyRVNQNJVOJA8189-75-79 06:37:00 Test Item Value Reference Range Interpretation Comments Hct (test code = Hct) 27.2 42.0-54.0 [facility] KlebergArrnbraYNIRMTMBVA0466-49-59 06:37:00 Test Item Value Reference Range Interpretation Comments MCV (test code = MCV) 95.1 80.0-94.0 [facility] KlebergNrectnwESZKWGHJBD7207-85-20 06:37:00 Test Item Value Reference Range Interpretation Comments MCH (test code = MCH) 31.5 pg 27.0-31.0 [facility] KlebergDwhejzkWRXUDDKVHY5950-26-66 06:37:00 Test Item Value Reference Range Interpretation Comments MCHC (test code = MCHC) 33.1 32.0-36.0 [facility] KlebergAbdkepzNZILHWYPLT4342-50-05 06:37:00 Test Item Value Reference Range Interpretation Comments RDW (test code = RDW) 19.0 11.5-14.5 [facility] KlebergXobjssmUHSLGVKSQV9065-10-28 06:37:00 Test Item Value Reference Range Interpretation Comments Platelet (test code = Platelet) 161 133-450 [facility] KlebergIfqhvgkUTSLGLRWVH4760-27-78 06:37:00 Test Item Value Reference Range Interpretation Comments MPV (test code = MPV) 10.0 7.4-10.4 [facility] TexasZkpaioxAKYSJSJVWBHA9923-70-00 22:16:00 Test Item Value Reference Range Interpretation Comments Sodium Lvl (test code = Sodium Lvl) 133 135-145 [facility] KlebergQhndlkhZFUYSZHMBL4580-92-71 17:18:00 Test Item Value Reference Range Interpretation Comments WBC (test code = WBC) 8.5 3.7-10.4 [facility] KlebergFlmcqipAQBTJKPVOA9595-30-75 17:18:00 Test Item Value Reference Range Interpretation Comments RBC (test code = RBC) 3.27 4.70-6.10 [facility] KlebergApxecsyDYRCDRGYYH2209-71-16 17:18:00 Test Item Value Reference Range Interpretation Comments Hgb (test code = Hgb) 10.2 14.0-18.0 [facility] KlebergMqnfbxrCNBSXURGCT0711-61-91 17:18:00 Test Item Value Reference Range Interpretation Comments Hct (test code = Hct) 31.2 42.0-54.0 [facility] KlebergWxesnurXMECXZXPUS4853-00-17 17:18:00 Test Item Value Reference Range Interpretation Comments MCV (test code = MCV) 95.5 80.0-94.0 [facility] KlebergVferaxvWUSYYKSPNV3446-06-30 17:18:00 Test Item Value Reference Range Interpretation Comments MCH (test code = MCH) 31.3 pg 27.0-31.0 [facility] KlebergYiffhmgUWELISSWTK0848-02-89 17:18:00 Test Item Value Reference Range Interpretation Comments MCHC (test code = MCHC) 32.7 32.0-36.0 [facility] KlebergNinoqtzVPVTZCQPKR3284-56-94 17:18:00 Test Item Value Reference Range Interpretation Comments RDW (test code = RDW) 19.1 11.5-14.5 [facility] KlebergOezsqiaZAFFAYOUAL5902-61-05 17:18:00 Test Item Value Reference Range Interpretation Comments Platelet (test code = Platelet) 174 133-450 [facility] KlebergVxzimpxBHSEPEZFTB3024-48-75 17:18:00 Test Item Value Reference Range Interpretation Comments MPV (test code = MPV) 9.8 7.4-10.4 [facility] KlebergMhyqsfpUDLQMEZIQT6279-48-01 17:18:00 Test Item Value Reference Range Interpretation Comments Segs (test code = Segs) 76.3 45.0-75.0 [facility] KlebergNpvwtpcJNBJPEHSEQ0711-28-11 17:18:00 Test Item Value Reference Range Interpretation Comments Lymphocytes (test code = Lymphocytes) 11.5 20.0-40.0 [facility] KlebergDbvqlutYYFMXHEYQN5349-60-22 17:18:00 Test Item Value Reference Range Interpretation Comments Monocytes (test code = Monocytes) 11.0 2.0-12.0 [facility] KlebergOirpfnwNDECFFCTIH5966-86-16 17:18:00 Test Item Value Reference Range Interpretation Comments Eosinophils (test code = 1.0 See_Comment [A utomated message] The Eosinophils) system which ge nerated this result tra nsmitted reference range : <=4.0. The reference r madi was not used to int erpret this result as normal/abnormal . [facility] KlebergAygyrrgSIZYUIDBEH0070-58-81 17:18:00 Test Item Value Reference Range Interpretation Comments Basophils (test code = 0.2 See_Comment [Aut omated message] The Basophils) system which ge nerated this result tra nsmitted reference range : <=1.0. The reference r madi was not used to int erpret this result as normal/abnormal . [facility] KlebergFmuinqnYUJWVLJOVP2299-61-17 17:18:00 Test Item Value Reference Range Interpretation Comments Neutrophils # (test code = Neutrophils 6.5 1.5-8.1 #) [facility] KlebergDtivokxDZQSNYUVEJ3773-09-72 17:18:00 Test Item Value Reference Range Interpretation Comments Lymphocytes # (test code = Lymphocytes 1.0 1.0-5.5 #) [facility] KlebergQvmtuieBOMZDDSVRQ6662-10-02 17:18:00 Test Item Value Reference Range Interpretation Comments Monocytes # (test code 0.9 See_Comment [Aut omated message] The = Monocytes #) system which generated this result tra nsmitted reference range : <=0.8. The reference r madi was not used to int erpret this result as normal/abnormal . [facility]HdxpyahXEVHVFAVWW8019-30-24 17:18:00 Test Item Value Reference Range Interpretation Comments Eosinophils # (test code 0.1 See_Comment [A utomated message] The = Eosinophils #) system whic h generated this result tra nsmitted reference range : <=0.5. The reference r madi was not used to int erpret this result as normal/abnormal . [facility] HospitalKdbwaxiRVVYHYIVVPTJ6548-83-68 11:13:00 Test Item Value Reference Range Interpretation Comments AGAP (test code = AGAP) 10.7 10.0-20.0 [facility] HospitalCflfknkWGEMYYCGJCMJ8577-75-20 11:13:00 Test Item Value Reference Range Interpretation Comments Glucose Lvl (test code = Glucose Lvl) 250 70-99 [facility] HospitalCezrwkkZRSWOWKBJYDT0917-49-97 11:13:00 Test Item Value Reference Range Interpretation Comments BUN (test code = BUN) 22 7-22 [facility] HospitalCqpweuvQMZJYQDDQNZZ3293-06-96 11:13:00 Test Item Value Reference Range Interpretation Comments Creatinine Lvl (test code = Creatinine 1.26 0.50-1.40 Lvl) [facility] HospitalPyukxsjXYFXTWGQLEUN1146-95-08 11:13:00 Test Item Value Reference Range Interpretation Comments Potassium Lvl (test code = Potassium 4.7 3.5-5.1 Lvl) [facility] HospitalDjjoqlhZTMRPTNAVABS0715-92-52 11:13:00 Test Item Value Reference Range Interpretation Comments Chloride Lvl (test code = Chloride Lvl) 105 95-109 [facility] HospitalPnxwteyKZQJTNNNRYRL2508-83-56 11:13:00 Test Item Value Reference Range Interpretation Comments CO2 (test code = CO2) 21 24-32 [facility] HospitalDattuzbGFUDRQUMPCZR4002-76-81 11:13:00 Test Item Value Reference Range Interpretation Comments Calcium Lvl (test code = Calcium Lvl) 7.9 8.5-10.5 [facility] HospitalKoftyqxVIYOUFDCTOGL8870-27-27 11:13:00 Test Item Value Reference Range Interpretation Comments eGFR (test code = eGFR) 59 [facility]bergBoeaitdYIJWIRDVPI3091-62-80 11:13:00 Test Item Value Reference Range Interpretation Comments WBC (test code = WBC) 8.0 3.7-10.4 [facility]bergUqtfzmbMHNOOIWNPP4917-25-85 11:13:00 Test Item Value Reference Range Interpretation Comments RBC (test code = RBC) 2.91 4.70-6.10 [facility]bergBvzesszWXALZEUDLA9253-75-04 11:13:00 Test Item Value Reference Range Interpretation Comments Hgb (test code = Hgb) 9.3 14.0-18.0 [facility]bergUbbhndfGAEUNZPAFK1583-83-27 11:13:00 Test Item Value Reference Range Interpretation Comments Hct (test code = Hct) 27.6 42.0-54.0 [facility] KlebergNnfveylOMAEKHNYVA5866-31-95 11:13:00 Test Item Value Reference Range Interpretation Comments MCV (test code = MCV) 94.9 80.0-94.0 [facility]bergDtyttuzNUPCGDVYLR3960-69-78 11:13:00 Test Item Value Reference Range Interpretation Comments MCH (test code = MCH) 32.0 pg 27.0-31.0 [facility]bergKdzbtewNRVPNFQSKT4136-59-96 11:13:00 Test Item Value Reference Range Interpretation Comments MCHC (test code = MCHC) 33.7 32.0-36.0 [facility]bergSnsbtxsCOWHFSZOXI3702-12-42 11:13:00 Test Item Value Reference Range Interpretation Comments RDW (test code = RDW) 18.7 11.5-14.5 [facility]bergWrceycfQHRQYDRMUF0400-02-48 11:13:00 Test Item Value Reference Range Interpretation Comments Platelet (test code = Platelet) 105 133-450 [facility]bergQbhsdcgWPBCAHABMT4886-81-89 11:13:00 Test Item Value Reference Range Interpretation Comments MPV (test code = MPV) 10.2 7.4-10.4 [facility]bergQipwnxaNKVAOBFTLB7760-13-91 11:13:00 Test Item Value Reference Range Interpretation Comments Segs (test code = Segs) 75.7 45.0-75.0 [facility]bergNsjzhfhHABKNLHVAS0782-43-09 11:13:00 Test Item Value Reference Range Interpretation Comments Lymphocytes (test code = Lymphocytes) 11.8 20.0-40.0 [facility] KlebergLldlezvMBZUUWDXYX5058-94-72 11:13:00 Test Item Value Reference Range Interpretation Comments Monocytes (test code = Monocytes) 10.7 2.0-12.0 [facility] KlebergItbaaybCSFYOWHQUZ7057-59-20 11:13:00 Test Item Value Reference Range Interpretation Comments Eosinophils (test code = 1.1 See_Comment [A utomated message] The Eosinophils) system which ge nerated this result tra nsmitted reference range : <=4.0. The reference r madi was not used to int erpret this result as normal/abnormal . [facility] KlebergIlmvilfVGBDWUEZDV0992-65-49 11:13:00 Test Item Value Reference Range Interpretation Comments Basophils (test code = 0.7 See_Comment [Aut omated message] The Basophils) system which ge nerated this result tra nsmitted reference range : <=1.0. The reference r madi was not used to int erpret this result as normal/abnormal . [facility]bergMpdjlpeVDKXBOCBEO3608-39-42 11:13:00 Test Item Value Reference Range Interpretation Comments Neutrophils # (test code = Neutrophils 6.1 1.5-8.1 #) [facility]bergDqcrzjqTWCXZWYSPQ7182-93-39 11:13:00 Test Item Value Reference Range Interpretation Comments Lymphocytes # (test code = Lymphocytes 0.9 1.0-5.5 #) [facility] KlebergFonajpvSSDJLZLXZY4323-45-82 11:13:00 Test Item Value Reference Range Interpretation Comments Monocytes # (test code 0.9 See_Comment [Aut omated message] The = Monocytes #) system which generated this result tra nsmitted reference range : <=0.8. The reference r madi was not used to int erpret this result as normal/abnormal . [facility]bergWqtnwkfSNYCRMCGOH6042-88-91 11:13:00 Test Item Value Reference Range Interpretation Comments Eosinophils # (test code 0.1 See_Comment [A utomated message] The = Eosinophils #) system whic h generated this result tra nsmitted reference range : <=0.5. The reference r madi was not used to int erpret this result as normal/abnormal . [facility] KlebergVikxoxhAGRYACKAGW6146-75-31 11:13:00 Test Item Value Reference Range Interpretation Comments Basophils # (test code 0.1 See_Comment [Aut omated message] The = Basophils #) system which generated this result tra nsmitted reference range : <=0.2. The reference r madi was not used to int erpret this result as normal/abnormal . [facility] [id number] 03:14:00 Test Item Value Reference Range Interpretation Comments U Sodium (test code = U Sodium) 134 [facility] NJKJ6006-95-22 03:14:00 Test Item Value Reference Range Interpretation Comments U Osmolality (test code = U Osmolality) 554 300-800 [facility] St[facility] Uubdma0323-37-16 19:29:00 Test Item Value Reference Range Interpretation Comments Gram Stain Report Gram Stain Performed By: (test code = Gram [facility] Stain Report) [facility] Aspirate/Body Fluid/Jdcaqv0663-55-96 19:29:00 Test Item Value Reference Range Interpretation Comments Culture: Aspirate/Body Fluid/Tissue No Growth (test code = Culture: Aspirate/Body Fluid/Tissue) [facility] VVDVG0848-97-65 12:13:00 Test Item Value Reference Range Interpretation Comments Osmolality (test code = Osmolality) 293 280-300 [facility] YRKRL1589-58-61 12:13:00 Test Item Value Reference Range Interpretation Comments Procalcitonin Lvl (test 0.12 See_Comment [Au tomated message] code = Procalcitonin Lvl) Th e system which generated this result transmitted ref erence range: <=0.10. The reference range was not used to interpr et this result as normal/abnormal . [facility] AND [id number] 23:39:00 Test Item Value Reference Range Interpretation Comments UA Color (test code = Yellow *NA*(03/06/19 UA Color) 5:39 PM) [facility] AND [id number] 23:39:00 Test Item Value Reference Range Interpretation Comments UA Turbidity (test code Marked *ABN*(03/06/19 = UA Turbidity) 5:39 PM) [facility] AND [id number] 23:39:00 Test Item Value Reference Range Interpretation Comments UA Spec Grav (test code = UA Spec 1.015 1 Grav) [facility] AND [id number] 23:39:00 Test Item Value Reference Range Interpretation Comments UA pH (test code = UA pH) 7.0 1 5.0-8.0 [facility] AND [id number] 23:39:00 Test Item Value Reference Range Interpretation Comments UA Protein (test code Negative (03/06/19 5:39 = UA Protein) PM) [facility] AND [id number] 23:39:00 Test Item Value Reference Range Interpretation Comments UA Glucose (test code = UA Glucose) 50mg/dl [facility] AND [id number] 23:39:00 Test Item Value Reference Range Interpretation Comments UA Ketones (test code Negative *NA*(03/06/19 = UA Ketones) 5:39 PM) [facility] AND [id number] 23:39:00 Test Item Value Reference Range Interpretation Comments UA Bili (test code = Negative *NA*(03/06/19 UA Bili) 5:39 PM) [facility] AND [id number] 23:39:00 Test Item Value Reference Range Interpretation Comments UA Blood (test code = Negative (03/06/19 5:39 UA Blood) PM) [facility] AND [id number] 23:39:00 Test Item Value Reference Range Interpretation Comments UA Urobilinogen (test code = UA no gt 0.1-1.0 Urobilinogen) [facility] AND [id number] 23:39:00 Test Item Value Reference Range Interpretation Comments UA Nitrite (test code Negative (03/06/19 5:39 = UA Nitrite) PM) [facility] AND [id number] 23:39:00 Test Item Value Reference Range Interpretation Comments UA Leuk Est (test Negative (03/06/19 5:39 code = UA Leuk Est) PM) [facility] AND [id number] 23:39:00 Test Item Value Reference Range Interpretation Comments UA Sq Epi (test code = None Seen (03/06/19 UA Sq Epi) 5:39 PM) [facility] AND [id number] 23:39:00 Test Item Value Reference Range Interpretation Comments UA Mucus (test code = UA Mucus) Few /LPF [facility] AND [id number] 23:39:00 Test Item Value Reference Range Interpretation Comments UA Amorph Rani (test code = UA Moderate /HPF Amorph Rani) [facility]CARD[facility] [id number] 23:07:00 Test Item Value Reference Range Interpretation Comments Troponin-I (test code 0.02 See_Comment [Auto mated message] The = Troponin-I) system which g enerated this result transmit guillaume reference range : <=0.40. The reference r madi was not used to interpr et this result as jd l/abnormal. [facility]CARD[facility]AC OVMOPBF2523-74-64 23:07:00 Test Item Value Reference Range Interpretation Comments Total CK (test code = Total CK) 92 12-191 [facility] HeightsCHEM [id number] 23:07:00 Test Item Value Reference Range Interpretation Comments Lactic Acid Lvl (test code = Lactic 1.3 0.5-2.2 Acid Lvl) [facility]OpwdxjtATZDJNXWXTOP4300-54-44 23:07:00 Test Item Value Reference Range Interpretation Comments AGAP (test code = AGAP) 14.1 10.0-20.0 [facility]iscoDgxpjsqSRDUHYESOCTH8989-00-53 23:07:00 Test Item Value Reference Range Interpretation Comments Glucose Lvl (test code = Glucose Lvl) 189 70-99 [facility] HospitalKdktmdvPPXSGRLLBNSU9609-31-38 23:07:00 Test Item Value Reference Range Interpretation Comments BUN (test code = BUN) 23 7-22 [facility] HospitalVbhrwooVQZTOLZDSJOT3604-52-32 23:07:00 Test Item Value Reference Range Interpretation Comments Creatinine Lvl (test code = Creatinine 1.22 0.50-1.40 Lvl) [facility] HospitalRetnldwSHUVHZMNLKGB1143-09-54 23:07:00 Test Item Value Reference Range Interpretation Comments Potassium Lvl (test code = Potassium 5.1 3.5-5.1 Lvl) [facility] HospitalGxzvcheZHISOVAGLQTN5523-19-92 23:07:00 Test Item Value Reference Range Interpretation Comments Chloride Lvl (test code = Chloride Lvl) 102 95-109 [facility] HospitalVhsvvljNCEVYGEXPQWZ8894-52-46 23:07:00 Test Item Value Reference Range Interpretation Comments CO2 (test code = CO2) 22 24-32 [facility] HospitalVmxkedmNMBGBHTOGSEW5292-07-67 23:07:00 Test Item Value Reference Range Interpretation Comments Calcium Lvl (test code = Calcium Lvl) 8.6 8.5-10.5 [facility] HospitalAaqbvckWYHKXIHVCQYN8592-23-84 23:07:00 Test Item Value Reference Range Interpretation Comments eGFR (test code = eGFR) 62 [facility]bergMcxcgllQYGMXIFZCR4913-82-64 23:07:00 Test Item Value Reference Range Interpretation Comments INR (test code = INR) 0.94 1 0.85-1.17 [facility]bergNjbpikgVCBUNNSGRR6516-57-62 23:07:00 Test Item Value Reference Range Interpretation Comments PT (test code = PT) 12.4 s 12.0-14.7 [facility]bergWktndeiFKGJQOARWN3545-14-32 23:07:00 Test Item Value Reference Range Interpretation Comments PTT (test code = PTT) 22.5 s 22.9-35.8 [facility]bergDcvolnnUEMNWRACBV5836-72-81 23:07:00 Test Item Value Reference Range Interpretation Comments Basophils # (test code 0.1 See_Comment [Aut omated message] The = Basophils #) system which generated this result tra nsmitted reference range : <=0.2. The reference r madi was not used to int erpret this result as normal/abnormal . [facility]bergTlakkmzSBHWJRIOLM9199-19-59 21:50:00 Test Item Value Reference Range Interpretation Comments WBC (test code = WBC) 11.8 3.7-10.4 [facility] KlebergRfnqsurILBHRYLQHK7045-39-80 21:50:00 Test Item Value Reference Range Interpretation Comments RBC (test code = RBC) 2.97 4.70-6.10 [facility]bergUkurigjJNYULKOKRO0975-79-74 21:50:00 Test Item Value Reference Range Interpretation Comments Hgb (test code = Hgb) 9.0 14.0-18.0 [facility]bergGeqehbrOKMMVOQKHK4923-97-12 21:50:00 Test Item Value Reference Range Interpretation Comments Hct (test code = Hct) 28.0 42.0-54.0 [facility] KlebergNxiaztaCYVZKGLLEG2795-28-00 21:50:00 Test Item Value Reference Range Interpretation Comments MCV (test code = MCV) 94.1 80.0-94.0 [facility] KlebergZuolnmcYKLKDGZSXK2392-36-53 21:50:00 Test Item Value Reference Range Interpretation Comments MCH (test code = MCH) 30.2 pg 27.0-31.0 [facility] KlebergRiqyycfMGVNUYGKVW7174-84-93 21:50:00 Test Item Value Reference Range Interpretation Comments MCHC (test code = MCHC) 32.1 32.0-36.0 [facility] KlebergMazzoqaZGEYCJNILL1208-53-73 21:50:00 Test Item Value Reference Range Interpretation Comments RDW (test code = RDW) 16.6 11.5-14.5 [facility]bergUclyqpmDANKHSNBHD6434-44-65 21:50:00 Test Item Value Reference Range Interpretation Comments Platelet (test code = Platelet) 214 133-450 [facility] KlebergWzrcxjsOCKJUOXIBJ4078-30-80 21:50:00 Test Item Value Reference Range Interpretation Comments MPV (test code = MPV) 9.9 7.4-10.4 [facility]bergCbjzfpxVLWIVJOFME6592-82-75 21:50:00 Test Item Value Reference Range Interpretation Comments Segs (test code = Segs) 78.3 45.0-75.0 [facility] KlebergKlrczwtQYSHUAKIWD2827-16-46 21:50:00 Test Item Value Reference Range Interpretation Comments Lymphocytes (test code = Lymphocytes) 11.1 20.0-40.0 [facility] KlebergGyeepzfCPUHPDEMAP9894-53-58 21:50:00 Test Item Value Reference Range Interpretation Comments Monocytes (test code = Monocytes) 8.7 2.0-12.0 [facility] KlebergPfjrmquVJYZMTDYXH7791-96-71 21:50:00 Test Item Value Reference Range Interpretation Comments Eosinophils (test code = 1.3 See_Comment [A utomated message] The Eosinophils) system which ge nerated this result tra nsmitted reference range : <=4.0. The reference r madi was not used to int erpret this result as normal/abnormal . [facility] KlebergJnmxiicULCMABFSLJ3393-56-69 21:50:00 Test Item Value Reference Range Interpretation Comments Basophils (test code = 0.6 See_Comment [Aut omated message] The Basophils) system which ge nerated this result tra nsmitted reference range : <=1.0. The reference r madi was not used to int erpret this result as normal/abnormal . [facility] KlebergPlarlwkOKIQWBUMDE2150-71-76 21:50:00 Test Item Value Reference Range Interpretation Comments Neutrophils # (test code = Neutrophils 9.2 1.5-8.1 #) [facility]bergGganofmWCVAUKOHNN6715-21-96 21:50:00 Test Item Value Reference Range Interpretation Comments Lymphocytes # (test code = Lymphocytes 1.3 1.0-5.5 #) [facility] KlebergRcxyuzaUPHBCQHTRR1271-40-30 21:50:00 Test Item Value Reference Range Interpretation Comments Monocytes # (test code 1.0 See_Comment [Aut omated message] The = Monocytes #) system which generated this result tra nsmitted reference range : <=0.8. The reference r madi was not used to int erpret this result as normal/abnormal . [facility] KlebergNeoxcarEFPOZCVOQA3829-18-27 21:50:00 Test Item Value Reference Range Interpretation Comments Eosinophils # (test code 0.2 See_Comment [A utomated message] The = Eosinophils #) system wh h generated this result tra nsmitted reference range : <=0.5. The reference r madi was not used to int erpret this result as normal/abnormal . [facility] KlebergWanamrgAMCWGCNTHP8763-90-77 21:50:00 Test Item Value Reference Range Interpretation Comments Basophils # (test code 0.1 See_Comment [Aut omated message] The = Basophils #) system which generated this result tra nsmitted reference range : <=0.2. The reference r madi was not used to int erpret this result as normal/abnormal . [facility] HeightsCHEM ZVYUJ1115-73-17 14:45:00 Test Item Value Reference Range Interpretation Comments Procalcitonin Lvl (test 0.25 See_Comment [Au tomated message] code = Procalcitonin Lvl) Th e system which generated this result transmitted ref erence range: <=0.10. The reference range was not used to interpr et this result as normal/abnormal . [facility] HospitalCncofmnIBAOHBEFMOOI9013-13-75 14:45:00 Test Item Value Reference Range Interpretation Comments AGAP (test code = AGAP) 7.6 10.0-20.0 [facility] HospitalAjhungtFOSEZZCVVOJC2554-55-05 14:45:00 Test Item Value Reference Range Interpretation Comments Glucose Lvl (test code = Glucose Lvl) 188 70-99 [facility] HospitalIchqwhdDJCFUPSOYJNV3808-12-12 14:45:00 Test Item Value Reference Range Interpretation Comments BUN (test code = BUN) 36 7-22 [facility] HospitalCnjdaoxMAKNWLJWDBEH6831-73-38 14:45:00 Test Item Value Reference Range Interpretation Comments Creatinine Lvl (test code = Creatinine 1.54 0.50-1.40 Lvl) [facility] HospitalCcarnziPHEUJBJQUEYE7516-08-17 14:45:00 Test Item Value Reference Range Interpretation Comments Sodium Lvl (test code = Sodium Lvl) 151 135-145 [facility] HospitalUtntcijAFBFZKUALARB4199-94-93 14:45:00 Test Item Value Reference Range Interpretation Comments Potassium Lvl (test code = Potassium 4.6 3.5-5.1 Lvl) [facility] HospitalPbhabhwWUWPQWVJLTJX8477-89-47 14:45:00 Test Item Value Reference Range Interpretation Comments Chloride Lvl (test code = Chloride Lvl) 121 95-109 [facility] HospitalXabpnqrPULTPBNCLFKP4864-39-32 14:45:00 Test Item Value Reference Range Interpretation Comments CO2 (test code = CO2) 27 24-32 [facility] HospitalSvehwiqWSHZLDTMMNIR6846-19-62 14:45:00 Test Item Value Reference Range Interpretation Comments Calcium Lvl (test code = Calcium Lvl) 8.6 8.5-10.5 [facility] HospitalDvmiuwbZGESAVYZPFFR2529-19-26 14:45:00 Test Item Value Reference Range Interpretation Comments eGFR (test code = eGFR) 47 [facility] KlebergVfldeyhEFUTSUTLSD2022-04-77 14:45:00 Test Item Value Reference Range Interpretation Comments WBC (test code = WBC) 9.8 3.7-10.4 [facility] KlebergMpmbbliYTAYOBUROI4079-15-78 14:45:00 Test Item Value Reference Range Interpretation Comments RBC (test code = RBC) 2.94 4.70-6.10 [facility] KlebergIadjzccPQKZTLBSTG4154-27-55 14:45:00 Test Item Value Reference Range Interpretation Comments Hgb (test code = Hgb) 9.0 14.0-18.0 [facility] KlebergFgdknniJWFCSJEGDW3155-63-84 14:45:00 Test Item Value Reference Range Interpretation Comments Hct (test code = Hct) 27.6 42.0-54.0 [facility] KlebergAkhhmohMMMRROOVJX0993-21-67 14:45:00 Test Item Value Reference Range Interpretation Comments MCV (test code = MCV) 93.9 80.0-94.0 [facility] KlebergLeywbznPKCQAXNWMM7365-89-98 14:45:00 Test Item Value Reference Range Interpretation Comments MCH (test code = MCH) 30.6 pg 27.0-31.0 [facility] KlebergVkixvvkXBGMNAJRBE7284-80-54 14:45:00 Test Item Value Reference Range Interpretation Comments MCHC (test code = MCHC) 32.6 32.0-36.0 [facility] KlebergQqtuelbJTOQVRHROB6270-67-29 14:45:00 Test Item Value Reference Range Interpretation Comments RDW (test code = RDW) 16.7 11.5-14.5 [facility]bergCnlsvcuZUGHOXNKQT4898-49-15 14:45:00 Test Item Value Reference Range Interpretation Comments Platelet (test code = Platelet) 77 133-450 [facility] KlebergWeadzfhLKPVRUWZTY5913-30-42 14:45:00 Test Item Value Reference Range Interpretation Comments MPV (test code = MPV) 9.8 7.4-10.4 [facility] KlebergLvbrlswDDXXRKLIKO9976-45-98 14:45:00 Test Item Value Reference Range Interpretation Comments RBC Morph (test code = Normal (02/28/19 8:45 RBC Morph) AM) [facility] KlebergRoqkiskNBXWGZBCVR2281-60-34 14:45:00 Test Item Value Reference Range Interpretation Comments Plt Morph (test code = Normal (02/28/19 8:45 Plt Morph) AM) [facility]bergHdgmswcWOJFXZLQWW4936-11-69 14:45:00 Test Item Value Reference Range Interpretation Comments Segs (test code = Segs) 79.4 45.0-75.0 [facility] KlebergOraymbbJUZAOXGACL8703-88-69 14:45:00 Test Item Value Reference Range Interpretation Comments Lymphocytes (test code = Lymphocytes) 12.1 20.0-40.0 [facility] KlebergAvccsqdSERDWGTVMT8443-83-18 14:45:00 Test Item Value Reference Range Interpretation Comments Monocytes (test code = Monocytes) 7.0 2.0-12.0 [facility] KlebergInehowjJHFPWXGKLG2011-34-53 14:45:00 Test Item Value Reference Range Interpretation Comments Eosinophils (test code = 1.0 See_Comment [A utomated message] The Eosinophils) system which ge nerated this result tra nsmitted reference range : <=4.0. The reference r madi was not used to int erpret this result as normal/abnormal . [facility] KlebergDpxvweaVPXFDBNWUU0291-23-62 14:45:00 Test Item Value Reference Range Interpretation Comments Basophils (test code = 0.5 See_Comment [Aut omated message] The Basophils) system which ge nerated this result tra nsmitted reference range : <=1.0. The reference r madi was not used to int erpret this result as normal/abnormal . [facility] KlebergYrxxbzlZLTZRJLHCF7918-55-29 14:45:00 Test Item Value Reference Range Interpretation Comments Neutrophils # (test code = Neutrophils 7.8 1.5-8.1 #) [facility]bergKvbjxvoWVQPELHUNE6775-81-18 14:45:00 Test Item Value Reference Range Interpretation Comments Lymphocytes # (test code = Lymphocytes 1.2 1.0-5.5 #) [facility] KlebergArzniyyHLGOLTICXP6940-38-43 14:45:00 Test Item Value Reference Range Interpretation Comments Monocytes # (test code 0.7 See_Comment [Aut omated message] The = Monocytes #) system which generated this result tra nsmitted reference range : <=0.8. The reference r madi was not used to int erpret this result as normal/abnormal . [facility] KlebergZqltgjjDPWYBRVGMD7040-23-73 14:45:00 Test Item Value Reference Range Interpretation Comments Eosinophils # (test code 0.1 See_Comment [A utomated message] The = Eosinophils #) system whic h generated this result tra nsmitted reference range : <=0.5. The reference r madi was not used to int erpret this result as normal/abnormal . [facility]EvzfpjcKQNDPFUXCK0914-32-75 14:45:00 Test Item Value Reference Range Interpretation Comments Basophils # (test code 0.1 See_Comment [Aut omated message] The = Basophils #) system which generated this result tra nsmitted reference range : <=0.2. The reference r madi was not used to int erpret this result as normal/abnormal . [facility]2019-11-13 10:00:00 Test Item Value Reference Range Interpretation Comments Procalcitonin Lvl (test 0.29 See_Comment [Au tomated message] code = Procalcitonin Lvl) Th e system which generated this result transmitted ref erence range: <=0.10. The reference range was not used to interpr et this result as normal/abnormal . [facility]2019-11-12 06:32:00 Test Item Value Reference Range Interpretation Comments Procalcitonin Lvl (test 0.41 See_Comment [Au tomated message] code = Procalcitonin Lvl) Th e system which generated this result transmitted ref erence range: <=0.10. The reference range was not used to interpr et this result as normal/abnormal . [facility]2019-11-11 10:27:00 Test Item Value Reference Range Interpretation Comments Glucose Lvl (test code = Glucose Lvl) 151 70-99 [facility]2019-11-11 10:27:00 Test Item Value Reference Range Interpretation Comments BUN (test code = BUN) 37 7-22 [facility]2019-11-11 10:27:00 Test Item Value Reference Range Interpretation Comments Creatinine Lvl (test code = Creatinine 1.66 0.50-1.40 Lvl) [facility]2019-11-11 10:27:00 Test Item Value Reference Range Interpretation Comments Sodium Lvl (test code = Sodium Lvl) 154 135-145 [facility]2019-11-11 10:27:00 Test Item Value Reference Range Interpretation Comments Potassium Lvl (test code = Potassium 4.9 3.5-5.1 Lvl) [facility]2019-11-11 10:27:00 Test Item Value Reference Range Interpretation Comments Chloride Lvl (test code = Chloride Lvl) 125 95-109 [facility]2019-11-11 10:27:00 Test Item Value Reference Range Interpretation Comments CO2 (test code = CO2) 26 24-32 [facility]2019-11-11 10:27:00 Test Item Value Reference Range Interpretation Comments Calcium Lvl (test code = Calcium Lvl) 8.3 8.5-10.5 [facility]2019-11-11 10:27:00 Test Item Value Reference Range Interpretation Comments eGFR (test code = eGFR) 42 [facility]2019-11-11 10:27:00 Test Item Value Reference Range Interpretation Comments AGAP (test code = AGAP) 7.9 10.0-20.0 [facility]bergWnqksmiZBUZJPIKUB7259-59-15 10:27:00 Test Item Value Reference Range Interpretation Comments WBC (test code = WBC) 11.7 3.7-10.4 [facility]bergShpinvmDBSYNHQWZW6550-88-11 10:27:00 Test Item Value Reference Range Interpretation Comments RBC (test code = RBC) 2.73 4.70-6.10 [facility]bergSgwtaguODKDZZPIZF9864-19-37 10:27:00 Test Item Value Reference Range Interpretation Comments Hgb (test code = Hgb) 7.9 14.0-18.0 [facility]bergAqysrksPGOFEFAMCO3120-53-76 10:27:00 Test Item Value Reference Range Interpretation Comments Hct (test code = Hct) 25.7 42.0-54.0 [facility] KlebergCguquxuBXBYWJUKES8085-50-30 10:27:00 Test Item Value Reference Range Interpretation Comments MCV (test code = MCV) 94.1 80.0-94.0 [facility] KlebergXfdzckvGRWMVCUZAW5965-19-84 10:27:00 Test Item Value Reference Range Interpretation Comments MCH (test code = MCH) 29.1 pg 27.0-31.0 [facility] KlebergWlydirwBVMRQVGKHH4677-02-51 10:27:00 Test Item Value Reference Range Interpretation Comments MCHC (test code = MCHC) 30.9 32.0-36.0 [facility] KlebergRguoqgqUIXXTEJOOX7861-74-33 10:27:00 Test Item Value Reference Range Interpretation Comments RDW (test code = RDW) 16.8 11.5-14.5 [facility] KlebergXoofqawTYKLAANFJL5603-22-14 10:27:00 Test Item Value Reference Range Interpretation Comments Platelet (test code = Platelet) 148 133-450 [facility] KlebergCitfxiuGUDHFIFXVS9348-85-93 10:27:00 Test Item Value Reference Range Interpretation Comments MPV (test code = MPV) 10.5 7.4-10.4 [facility]bergEvqfkhxCUWHISNBWN7142-89-43 10:27:00 Test Item Value Reference Range Interpretation Comments Segs (test code = Segs) 81.9 45.0-75.0 [facility] KlebergIngbacuIIQAZRKHJK8803-08-70 10:27:00 Test Item Value Reference Range Interpretation Comments Lymphocytes (test code = Lymphocytes) 8.6 20.0-40.0 [facility] KlebergUyjtdbbYTXXCFRAHW8126-93-67 10:27:00 Test Item Value Reference Range Interpretation Comments Monocytes (test code = Monocytes) 7.9 2.0-12.0 [facility] KlebergQdunhjrTYINFASPMR0087-41-51 10:27:00 Test Item Value Reference Range Interpretation Comments Eosinophils (test code = 1.2 See_Comment [A utomated message] The Eosinophils) system which ge nerated this result tra nsmitted reference range : <=4.0. The reference r madi was not used to int erpret this result as normal/abnormal . [facility] KlebergHpzkodnGHZEGEOLJR3740-41-05 10:27:00 Test Item Value Reference Range Interpretation Comments Basophils (test code = 0.4 See_Comment [Aut omated message] The Basophils) system which ge nerated this result tra nsmitted reference range : <=1.0. The reference r madi was not used to int erpret this result as normal/abnormal . [facility] KlebergUfydrwyGJFLNNBQTU0126-43-16 10:27:00 Test Item Value Reference Range Interpretation Comments Neutrophils # (test code = Neutrophils 9.6 1.5-8.1 #) [facility]bergKxtzeqqVYELMHLPSB1291-06-91 10:27:00 Test Item Value Reference Range Interpretation Comments Lymphocytes # (test code = Lymphocytes 1.0 1.0-5.5 #) [facility]bergHhnndsgTPQWDVRYOS3991-73-12 10:27:00 Test Item Value Reference Range Interpretation Comments Monocytes # (test code 0.9 See_Comment [Aut omated message] The = Monocytes #) system which generated this result tra nsmitted reference range : <=0.8. The reference r madi was not used to int erpret this result as normal/abnormal . [facility] HeightsKhuabrlLTGNYWGADO5520-28-63 10:27:00 Test Item Value Reference Range Interpretation Comments Eosinophils # (test code 0.1 See_Comment [A utomated message] The = Eosinophils #) system [employer] h generated this result tra nsmitted reference range : <=0.5. The reference r madi was not used to int erpret this result as normal/abnormal . [facility]2019-11-10 11:00:00 Test Item Value Reference Range Interpretation Comments Glucose Lvl (test code = Glucose Lvl) 179 70-99 [facility]2019-11-10 11:00:00 Test Item Value Reference Range Interpretation Comments BUN (test code = BUN) 39 7-22 [facility]2019-11-10 11:00:00 Test Item Value Reference Range Interpretation Comments Creatinine Lvl (test code = Creatinine 1.79 0.50-1.40 Lvl) [facility]2019-11-10 11:00:00 Test Item Value Reference Range Interpretation Comments Sodium Lvl (test code = Sodium Lvl) 155 135-145 [facility]2019-11-10 11:00:00 Test Item Value Reference Range Interpretation Comments Potassium Lvl (test code = Potassium 4.1 3.5-5.1 Lvl) [facility]2019-11-10 11:00:00 Test Item Value Reference Range Interpretation Comments Chloride Lvl (test code = Chloride Lvl) 125 95-109 [facility]2019-11-10 11:00:00 Test Item Value Reference Range Interpretation Comments CO2 (test code = CO2) 26 24-32 [facility]2019-11-10 11:00:00 Test Item Value Reference Range Interpretation Comments Calcium Lvl (test code = Calcium Lvl) 7.9 8.5-10.5 [facility]2019-11-10 11:00:00 Test Item Value Reference Range Interpretation Comments eGFR (test code = eGFR) 39 [facility]2019-11-10 11:00:00 Test Item Value Reference Range Interpretation Comments AGAP (test code = AGAP) 8.1 10.0-20.0 [facility] [id number] 10:26:00 Test Item Value Reference Range Interpretation Comments ABO/Rh (test code = ABO/Rh) O POS [facility] [id number] 10:26:00 Test Item Value Reference Range Interpretation Comments Antibody Scrn (test Negative (02/23/19 4:26 code = Antibody Scrn) AM) [facility] [id number] 10:26:00 Test Item Value Reference Range Interpretation Comments Magnesium Lvl (test code = Magnesium 2.4 1.8-2.4 Lvl) [facility] [id number] 10:26:00 Test Item Value Reference Range Interpretation Comments Phosphorus (test code = Phosphorus) 2.6 2.5-4.5 [facility] [id number] 10:26:00 Test Item Value Reference Range Interpretation Comments Total Protein (test code = Total 5.2 6.4-8.4 Protein) [facility] [id number] 10:26:00 Test Item Value Reference Range Interpretation Comments Albumin Lvl (test code = Albumin Lvl) 2.4 3.5-5.0 [facility] [id number] 10:26:00 Test Item Value Reference Range Interpretation Comments ALT (test code = ALT) 23 See_Comment [Auto mated message] The system which ge nerated this result transmit guillaume reference range : <=65. The reference range was not used to interpr et this result as jd l/abnormal. [facility] [id number] 10:26:00 Test Item Value Reference Range Interpretation Comments AST (test code = AST) 41 See_Comment [Auto mated message] The system which ge nerated this result transmit guillaume reference range : <=37. The reference range was not used to interpr et this result as jd l/abnormal. [facility] [employer] [id number] 10:26:00 Test Item Value Reference Range Interpretation Comments Alk Phos (test code = Alk Phos) 53 39-136 [facility] [id number] 10:26:00 Test Item Value Reference Range Interpretation Comments Bili Total (test code = Bili Total) 2.1 0.2-1.3 [facility] [id number] 10:26:00 Test Item Value Reference Range Interpretation Comments B/C Ratio (test code = B/C Ratio) 20 1 6-25 [facility]2019-11-08 10:26:00 Test Item Value Reference Range Interpretation Comments Globulin (test code = Globulin) 2.8 2.7-4.2 [facility]2019-11-08 10:26:00 Test Item Value Reference Range Interpretation Comments A/G Ratio (test code = A/G Ratio) 0.9 1 0.7-1.6 [facility]YtwoblaNDDXZP3163-14-[facility] 10:26:00 Test Item Value Reference Range Interpretation Comments Trig (test code = Trig) 175 [facility]2019-11-07 07:32:00 Test Item Value Reference Range Interpretation Comments Magnesium Lvl (test code = Magnesium 2.6 1.8-2.4 Lvl) [facility]2019-11-07 07:32:00 Test Item Value Reference Range Interpretation Comments Phosphorus (test code = Phosphorus) 2.7 2.5-4.5 [facility] HospitalKdrnrheFHKESV5384-30-17 07:32:00 Test Item Value Reference Range Interpretation Comments Trig (test code = Trig) 147 [facility] [id number] 07:32:00 Test Item Value Reference Range Interpretation Comments Ca Ion WB (test code = Ca Ion WB) 1.22 1.05-1.25 [facility] [id number] 07:32:00 Test Item Value Reference Range Interpretation Comments Ca Norm WB (test code = Ca Norm WB) 1.24 1.05-1.25 [facility]bergMdgjvgdHOIJQCVERX3616-37-20 12:43:00 Test Item Value Reference Range Interpretation Comments ACT (TEG) Rapid (test code = ACT (TEG) 97 s 86-118 Rapid) [facility]bergMmmkzzsMENKGGPSUT1910-88-14 12:43:00 Test Item Value Reference Range Interpretation Comments Split Point Rapid (test code = Split 0.3 min Point Rapid) [facility]bergEunlayvMFEZDSZAQL0810-76-54 12:43:00 Test Item Value Reference Range Interpretation Comments R-time Rapid (test code = R-time 0.5 min 0.4-0.7 Rapid) [facility]bergWtawnkvQJTPZDWYHF3329-26-92 12:43:00 Test Item Value Reference Range Interpretation Comments K-time Rapid (test code = K-time 1.0 min 0.6-2.3 Rapid) [facility]bergEqmgjzgQOIQJJHZIJ0666-44-51 12:43:00 Test Item Value Reference Range Interpretation Comments Angle Rapid (test code = Angle 77 degrees 64-80 Rapid) [facility]bergHfxtcnjYPIPBACXDT8221-15-34 12:43:00 Test Item Value Reference Range Interpretation Comments Max Amplitude Rapid (test code = Max 68 mm 52-71 Amplitude Rapid) [facility]bergYstvaqtOISUQWUNSJ1203-33-87 12:43:00 Test Item Value Reference Range Interpretation Comments G-value Rapid (test code = G-value 10.7 5.0-11.6 Rapid) [facility]bergYibjnznIUQNPMDYBE8835-12-13 12:43:00 Test Item Value Reference Range Interpretation Comments Estimated % Lysis Rapid 0.0 See_Comment [Au tomated message] The (test code = Estimated syste m which generated % Lysis Rapid) this result t ransmitted reference range : <=7.5. The reference r madi was not used to int erpret this result as normal/abnormal . [facility] KlebergDbhqjexQTUSQBRUUH3470-32-27 12:20:00 Test Item Value Reference Range Interpretation Comments PTT (test code = PTT) 27.4 s 22.9-35.8 [facility] KlebergRyxvrunTMBSIWQCXS3812-35-23 12:20:00 Test Item Value Reference Range Interpretation Comments PT (test code = PT) 15.1 s 12.0-14.7 [facility] KlebergZozbeieMVAYXGBKSE9795-56-30 12:20:00 Test Item Value Reference Range Interpretation Comments INR (test code = INR) 1.21 1 0.85-1.17 [facility]2019-11-05 10:44:00 Test Item Value Reference Range Interpretation Comments Phosphorus (test code = Phosphorus) 2.6 2.5-4.5 [facility]2019-11-05 10:44:00 Test Item Value Reference Range Interpretation Comments Magnesium Lvl (test code = Magnesium 2.7 1.8-2.4 Lvl) [facility] [id number] 10:44:00 Test Item Value Reference Range Interpretation Comments Ca Ion WB (test code = Ca Ion WB) 1.19 1.05-1.25 [facility]RO[facility] [id number] 10:44:00 Test Item Value Reference Range Interpretation Comments Ca Norm WB (test code = Ca Norm WB) 1.21 1.05-1.25 [facility] [employer] [id number] 10:03:00 Test Item Value Reference Range Interpretation Comments Antibody Scrn (test Negative (02/19/19 4:03 code = Antibody Scrn) AM) [facility] [employer] [id number] 10:03:00 Test Item Value Reference Range Interpretation Comments ABO/Rh (test code = ABO/Rh) O POS [facility] [id number] 09:06:00 Test Item Value Reference Range Interpretation Comments Ca Ion WB (test code = Ca Ion WB) 1.23 1.05-1.25 [facility] [employer] [id number] 09:06:00 Test Item Value Reference Range Interpretation Comments Ca Norm WB (test code = Ca Norm WB) 1.27 1.05-1.25 [facility] [employer] [id number] 10:00:00 Test Item Value Reference Range Interpretation Comments Platelet product (test Product available code = Platelet (02/17/19 5:00 AM) product) [facility] [employer]2019-11-02 08:12:00 Test Item Value Reference Range Interpretation Comments Troponin-I (test code 0.04 See_Comment [Auto mated message] The = Troponin-I) system which g enerated this result transmit guillaume reference range : <=0.40. The reference r madi was not used to interpr et this result as jd l/abnormal. [employer]2019-11-02 08:12:00 Test Item Value Reference Range Interpretation Comments Total CK (test code = Total CK) 1802 12-191 [facility] [employer]2019-11-02 08:12:00 Test Item Value Reference Range Interpretation Comments CK MB (test code = CK MB) 4.7 0.5-3.6 [facility] [employer]2019-11-02 08:12:00 Test Item Value Reference Range Interpretation Comments CK MB Index (test 0.3 1 See_Comment [Automate d message] The code = CK MB Index) system w [facility] generated this result transmit guillaume reference range : <=2.5. The reference range was not used to interpr et this result as jd l/abnormal. [facility]2019-11-02 08:12:00 Test Item Value Reference Range Interpretation Comments U Sodium (test code = U Sodium) 27 [facility]2019-11-02 08:12:00 Test Item Value Reference Range Interpretation Comments U Creatinine (test code = U 133.00 Creatinine) [facility]bergKugpsufSCHEMVIGGP8598-96-47 07:56:00 Test Item Value Reference Range Interpretation Comments TEG Interp (test Thrombelastograph results code = TEG show shortened value of R. 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 CPT:60296 [facility] KlebergTqhkwozWRTRVUTXKY7724-53-74 07:56:00 Test Item Value Reference Range Interpretation Comments R-time (test code = R-time) 4.3 min 5.0-10.0 [facility] KlebergDqnefryHWWBQARDIQ7513-13-03 07:56:00 Test Item Value Reference Range Interpretation Comments K-time (test code = K-time) 2.2 min 1.0-3.0 [facility] KlebergPyqmhvuJZDCHIGGQN0975-99-43 07:56:00 Test Item Value Reference Range Interpretation Comments Angle (test code = Angle) 61.0 degrees 53.0-72.0 [facility] KlebergXhosfvsKVUEKQGSGY8196-19-15 07:56:00 Test Item Value Reference Range Interpretation Comments Max Amp (test code = Max Amp) 57.1 mm 50.0-70.0 [facility] KlebergDzredeeXTGONTFFWA8085-28-50 07:56:00 Test Item Value Reference Range Interpretation Comments G-value (test code = G-value) 6.7 4.5-11.0 [facility] KlebergTwnxrefRGZDIAJITJ7838-81-62 07:56:00 Test Item Value Reference Range Interpretation Comments Ly30 (test code = 0.5 See_Comment [Automate d message] The Ly30) system which ge nerated this result transmit gulilaume reference range : <=7.5. The reference range was not used to interpr et this result as jd l/abnormal. [facility] KlebergAyrtuaqLLQSBGKBAY5913-67-80 07:56:00 Test Item Value Reference Range Interpretation Comments Coag Index (test code 0.2 1 See_Comment [Auto mated message] The = Coag Index) system which g enerated this result transmit guillaume reference range : <=3.0. The reference range was not used to interpr et this result as jd l/abnormal. [facility] KlebergLkahmhvJIXRXSLFZH8917-43-49 07:56:00 Test Item Value Reference Range Interpretation Comments TEG Data (test code = See Note (02/17/19 2:56 TEG Data) AM) [facility] KlebergVpfdeduXUVUTMJQBP6199-97-50 07:56:00 Test Item Value Reference Range Interpretation Comments PTT (test code = PTT) 28.8 s 22.9-35.8 [facility] KlebergVychwxiSOJZXOSVOO8675-12-69 07:56:00 Test Item Value Reference Range Interpretation Comments PT (test code = PT) 15.4 s 12.0-14.7 [facility] KlebergFrguyrdXXUYDLJNOI0274-33-21 07:56:00 Test Item Value Reference Range Interpretation Comments INR (test code = INR) 1.24 1 0.85-1.17 [facility] KlebergAzasieeWEUORMGJSN7725-73-90 11:32:00 Test Item Value Reference Range Interpretation Comments PTT (test code = PTT) 30.8 s 22.9-35.8 [facility] KlebergPferzpuCTCZFDGGVC7074-10-62 11:32:00 Test Item Value Reference Range Interpretation Comments PT (test code = PT) 16.0 s 12.0-14.7 [facility] KlebergAdkluidTGEJGGPVRF7438-59-19 11:32:00 Test Item Value Reference Range Interpretation Comments INR (test code = INR) 1.31 1 0.85-1.17 [facility] KlebergOexzgxbSTDOWFQJIL9956-01-47 11:32:00 Test Item Value Reference Range Interpretation Comments R-time (test code = R-time) 3.7 min 5.0-10.0 [facility] KlebergYqgyusxGDKBPFDDYF3364-44-63 11:32:00 Test Item Value Reference Range Interpretation Comments K-time (test code = K-time) 1.5 min 1.0-3.0 [facility] KlebergDjwhhmeRWPDZOKTBA4252-91-11 11:32:00 Test Item Value Reference Range Interpretation Comments Angle (test code = Angle) 67.7 degrees 53.0-72.0 [facility] KlebergXaujcwxRDSJXALFVM8915-08-42 11:32:00 Test Item Value Reference Range Interpretation Comments Max Amp (test code = Max Amp) 62.5 mm 50.0-70.0 [facility] KlebergHjzjdqaKABRSDDWRM6006-43-24 11:32:00 Test Item Value Reference Range Interpretation Comments G-value (test code = G-value) 8.3 4.5-11.0 [facility] KlebergMdficdxDFXFZZPRMZ6927-54-07 11:32:00 Test Item Value Reference Range Interpretation Comments Ly30 (test code = 0.0 See_Comment [Automate d message] The Ly30) system which ge nerated this result transmit guillaume reference range : <=7.5. The reference range was not used to interpr et this result as jd l/abnormal. [facility] KlebergCwztujsQDTNFPUPCM9250-09-53 11:32:00 Test Item Value Reference Range Interpretation Comments Coag Index (test code 2.0 1 See_Comment [Auto mated message] The = Coag Index) system which g enerated this result transmit guillaume reference range : <=3.0. The reference range was not used to interpr et this result as jd l/abnormal. [facility] KlebergOybooerOAQLFEQZDE3004-95-89 11:32:00 Test Item Value Reference Range Interpretation Comments TEG Data (test code = See Note (02/16/19 6:32 TEG Data) AM) [facility]bergOtzpktiJJLHZSJRFH1311-45-77 11:32:00 Test Item Value Reference Range Interpretation Comments TEG Interp (test Thrombelastograph results code = TEG show shortened value of R. 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 CPT:69063 [facility] HeightsCulture: [id number] 15:35:00 Test Item Value Reference Range Interpretation Comments Culture: Urine (test code = No Growth Culture: Urine) [facility] HeightsCARDIAC [id number] 15:18:00 Test Item Value Reference Range Interpretation Comments Troponin-I (test code 0.06 See_Comment [Auto mated message] The = Troponin-I) system which g enerated this result transmit guillaume reference range : <=0.40. The reference r madi was not used to interpr et this result as jd l/abnormal. [facility] HeightsDR[facility] [id number] 14:46:00 Test Item Value Reference Range Interpretation Comments U Amph Scr (test code Negative *NA*(02/15/19 = U Amph Scr) 9:46 AM) [facility] HeightsDR[facility] [id number] 14:46:00 Test Item Value Reference Range Interpretation Comments U Roya Scr (test code Negative *NA*(02/15/19 = U Roya Scr) 9:46 AM) [facility] [id number] 14:46:00 Test Item Value Reference Range Interpretation Comments U Benzodiaz Scr (test Positive code = U Benzodiaz Scr) *ABN*(02/15/19 9:46 AM) [facility] [id number] 14:46:00 Test Item Value Reference Range Interpretation Comments U Cocaine Scr (test Negative *NA*(02/15/19 code = U Cocaine Scr) 9:46 AM) [facility] [id number] 14:46:00 Test Item Value Reference Range Interpretation Comments U Cannab Scr (test Negative *NA*(02/15/19 code = U Cannab Scr) 9:46 AM) [facility] [id number] 14:46:00 Test Item Value Reference Range Interpretation Comments U Opiate Scr (test Negative *NA*(02/15/19 code = U Opiate Scr) 9:46 AM) [facility] [id number] 14:46:00 Test Item Value Reference Range Interpretation Comments U Phencyclidine Scr (test Negative code = U Phencyclidine *NA*(02/15/19 9:46 Scr) AM) [facility] [id number] 14:46:00 Test Item Value Reference Range Interpretation Comments UDS Note (test code = See Note (02/15/19 9:46 UDS Note) AM) [facility] [id number] 14:46:00 Test Item Value Reference Range Interpretation Comments UA Color (test code = Marlena *ABN*(02/15/19 UA Color) 9:46 AM) [facility] [id number] 14:46:00 Test Item Value Reference Range Interpretation Comments UA Turbidity (test code Marked *ABN*(02/15/19 = UA Turbidity) 9:46 AM) [facility] [id number] 14:46:00 Test Item Value Reference Range Interpretation Comments UA Spec Grav (test code = UA Spec 1.047 1 Grav) [facility] [id number] 14:46:00 Test Item Value Reference Range Interpretation Comments UA pH (test code = UA pH) 5.0 1 5.0-8.0 [facility] AND [id number] 14:46:00 Test Item Value Reference Range Interpretation Comments UA Protein (test code = UA Protein) 30 mg/dL [facility] AND [id number] 14:46:00 Test Item Value Reference Range Interpretation Comments UA Glucose (test code = UA Negative mg/dL Glucose) [facility] AND [id number] 14:46:00 Test Item Value Reference Range Interpretation Comments UA Ketones (test code = UA Negative mg/dL Ketones) [facility] AND [id number] 14:46:00 Test Item Value Reference Range Interpretation Comments UA Bili (test code = Negative *NA*(02/15/19 UA Bili) 9:46 AM) [facility] AND [id number] 14:46:00 Test Item Value Reference Range Interpretation Comments UA Blood (test code = Moderate *ABN*(02/15/19 UA Blood) 9:46 AM) [facility] AND [id number] 14:46:00 Test Item Value Reference Range Interpretation Comments UA Urobilinogen (test code = UA no gt 0.1-1.0 Urobilinogen) [facility] AND [id number] 14:46:00 Test Item Value Reference Range Interpretation Comments UA Nitrite (test code Negative (02/15/19 9:46 = UA Nitrite) AM) [facility] AND [id number] 14:46:00 Test Item Value Reference Range Interpretation Comments UA Leuk Est (test Moderate *ABN*(02/15/19 code = UA Leuk Est) 9:46 AM) [facility] AND [id number] 14:46:00 Test Item Value Reference Range Interpretation Comments UA Sq Epi (test code = UA Sq Occasional /LPF Epi) [facility] AND [id number] 14:46:00 Test Item Value Reference Range Interpretation Comments UA WBC (test code = 57 See_Comment [Automa guillaume message] The UA WBC) system which ge nerated this result transmit guillaume reference range : <=5. The reference range was not used to interpr et this result as jd l/abnormal. [facility] AND [id number] 14:46:00 Test Item Value Reference Range Interpretation Comments UA RBC (test code = 40 See_Comment [Automa guillaume message] The UA RBC) system which ge nerated this result transmit guillaume reference range : <=2. The reference range was not used to interpr et this result as jd l/abnormal. [facility] AND [id number] 14:46:00 Test Item Value Reference Range Interpretation Comments UA Bacteria (test code = UA Few /HPF Bacteria) [facility] AND [id number] 14:46:00 Test Item Value Reference Range Interpretation Comments UA Mucus (test code = UA Mucus) Few /LPF [facility] AND [id number] 14:46:00 Test Item Value Reference Range Interpretation Comments UA Amorph Rani (test code = Occasional /HPF UA Amorph Rani) [facility] AND [id number] 14:46:00 Test Item Value Reference Range Interpretation Comments UA Hyal Cast (test 5 See_Comment [Automat ed message] The code = UA Hyal Cast) system which generated this result transmit guillaume reference range : <=2. The reference range was not used to interpr et this result as jd l/abnormal. [facility] [id number] 12:47:00 Test Item Value Reference Range Interpretation Comments Platelet product (test Product available code = Platelet (02/15/19 7:47 AM) product) [facility] [employer] [id number] 11:13:00 Test Item Value Reference Range Interpretation Comments CK MB (test code = CK MB) 15.5 0.5-3.6 [facility] [employer] [id number] 11:13:00 Test Item Value Reference Range Interpretation Comments CK MB Index (test 0.9 1 See_Comment [Automate d message] The code = CK MB Index) system w [facility] generated this result transmit guillaume reference range : <=2.5. The reference range was not used to interpr et this result as jd l/abnormal. [facility] TexasFinAnalyticaAC [id number] 11:13:00 Test Item Value Reference Range Interpretation Comments Total CK (test code = Total CK) 1785 12-191 [facility] TexasT[facility] [employer] [id number] 11:13:00 Test Item Value Reference Range Interpretation Comments Troponin-I (test code 0.07 See_Comment [Auto mated message] The = Troponin-I) system which g enerated this result transmit guillaume reference range : <=0.40. The reference r madi was not used to interpr et this result as jd l/abnormal. [facility] TexasannBACTERIAL - [id number] 03:45:00 Test Item Value Reference Range Interpretation Comments MRSA by PCR (test Negative (02/14/19 10:45 code = MRSA by PCR) PM) [facility] TexasannCARDIAC [id number] 03:45:00 Test Item Value Reference Range Interpretation Comments Total CK (test code = Total CK) 1761 12-191 [facility] TexasannCARStreetlifeAC [id number] 03:45:00 Test Item Value Reference Range Interpretation Comments CK MB (test code = CK MB) 19.5 0.5-3.6 [facility] TexasannCircleAC [id number] 03:45:00 Test Item Value Reference Range Interpretation Comments CK MB Index (test 1.1 1 See_Comment [Automate d message] The code = CK MB Index) system w [facility] generated this result transmit guillaume reference range : <=2.5. The reference range was not used to interpr et this result as jd l/abnormal. [facility] [employer] [id number] 03:45:00 Test Item Value Reference Range Interpretation Comments Lactic Acid Lvl (test code = Lactic 1.8 0.5-2.2 Acid Lvl) [facility] TexasHitchedPic [id number] 03:45:00 Test Item Value Reference Range Interpretation Comments Total Protein (test code = Total 5.3 6.4-8.4 Protein) [facility] [employer] [id number] 03:45:00 Test Item Value Reference Range Interpretation Comments Albumin Lvl (test code = Albumin Lvl) 3.0 3.5-5.0 [facility] [id number] 03:45:00 Test Item Value Reference Range Interpretation Comments ALT (test code = ALT) 25 See_Comment [Auto mated message] The system which ge nerated this result transmit guillaume reference range : <=65. The reference range was not used to interpr et this result as jd l/abnormal. [facility] [employer] [id number] 03:45:00 Test Item Value Reference Range Interpretation Comments AST (test code = AST) 54 See_Comment [Auto mated message] The system which ge nerated this result transmit guillaume reference range : <=37. The reference range was not used to interpr et this result as jd l/abnormal. [facility]2019-10-31 03:45:00 Test Item Value Reference Range Interpretation Comments Alk Phos (test code = Alk Phos) 55 39-136 [facility]2019-10-31 03:45:00 Test Item Value Reference Range Interpretation Comments Bili Total (test code = Bili Total) 1.1 0.2-1.3 [facility]2019-10-31 03:45:00 Test Item Value Reference Range Interpretation Comments B/C Ratio (test code = B/C Ratio) 18 1 6-25 [facility]2019-10-31 03:45:00 Test Item Value Reference Range Interpretation Comments Globulin (test code = Globulin) 2.3 2.7-4.2 [facility]2019-10-31 03:45:00 Test Item Value Reference Range Interpretation Comments A/G Ratio (test code = A/G Ratio) 1.3 1 0.7-1.6 [facility] [id number] 03:45:00 Test Item Value Reference Range Interpretation Comments TEG Interp (test Thrombelastograph results code = TEG show shortened value of R. 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 CPT:05923 [facility] [id number] 03:45:00 Test Item Value Reference Range Interpretation Comments R-time (test code = R-time) 4.1 min 5.0-10.0 [place] [id number] 03:45:00 Test Item Value Reference Range Interpretation Comments K-time (test code = K-time) 2.2 min 1.0-3.0 [facility] [id number] 03:45:00 Test Item Value Reference Range Interpretation Comments Angle (test code = Angle) 61.4 degrees 53.0-72.0 [facility] [id number] 03:45:00 Test Item Value Reference Range Interpretation Comments Max Amp (test code = Max Amp) 54.2 mm 50.0-70.0 [facility] [id number] 03:45:00 Test Item Value Reference Range Interpretation Comments G-value (test code = G-value) 5.9 4.5-11.0 [facility] [id number] 03:45:00 Test Item Value Reference Range Interpretation Comments Ly30 (test code = 0.0 See_Comment [Automate d message] The Ly30) system which ge nerated this result transmit guillaume reference range : <=7.5. The reference range was not used to interpr et this result as jd l/abnormal. [facility] [id number] 03:45:00 Test Item Value Reference Range Interpretation Comments Coag Index (test code 0.0 1 See_Comment [Auto mated message] The = Coag Index) system which g enerated this result transmit guillaume reference range : <=3.0. The reference range was not used to interpr et this result as jd l/abnormal. [facility] [id number] 03:45:00 Test Item Value Reference Range Interpretation Comments TEG Data (test code = See Note (02/14/19 TEG Data) 10:45 PM) [facility] [id number] 22:15:00 Test Item Value Reference Range Interpretation Comments ABO/Rh (test code = ABO/Rh) O POS [facility] [id number] 22:15:00 Test Item Value Reference Range Interpretation Comments Antibody Scrn (test Negative (02/14/19 code = Antibody Scrn) 5:15 PM) [facility] [id number] 22:15:00 Test Item Value Reference Range Interpretation Comments Lactic Acid Lvl (test code = Lactic 1.5 0.5-2.2 Acid Lvl) [facility] [id number] 22:15:00 Test Item Value Reference Range Interpretation Comments ACT (TEG) Rapid (test code = ACT (TEG) 136 s 86-118 Rapid) [facility] [id number] 22:15:00 Test Item Value Reference Range Interpretation Comments Split Point Rapid (test code = Split 0.8 min Point Rapid) [facility] [id number] 22:15:00 Test Item Value Reference Range Interpretation Comments R-time Rapid (test code = R-time 0.9 min 0.4-0.7 Rapid) [facility] [id number] 22:15:00 Test Item Value Reference Range Interpretation Comments K-time Rapid (test code = K-time 2.2 min 0.6-2.3 Rapid) [facility] [id number] 22:15:00 Test Item Value Reference Range Interpretation Comments Angle Rapid (test code = Angle 68 degrees 64-80 Rapid) [facility] Kl[id number] 22:15:00 Test Item Value Reference Range Interpretation Comments Max Amplitude Rapid (test code = Max 57 mm 52-71 Amplitude Rapid) [facility] [id number] 22:15:00 Test Item Value Reference Range Interpretation Comments G-value Rapid (test code = G-value 6.6 5.0-11.6 Rapid) [facility] [id number] 22:15:00 Test Item Value Reference Range Interpretation Comments Estimated % Lysis Rapid 0.0 See_Comment [Au tomated message] The (test code = Estimated syste m which generated % Lysis Rapid) this result t ransmitted reference range : <=7.5. The reference r madi was not used to int erpret this result as normal/abnormal . [place] [id number] 22:15:00 Test Item Value Reference Range Interpretation Comments Ethanol Lvl (test code = Ethanol Lvl) no gt [place] [id number] 22:15:00 Test Item Value Reference Range Interpretation Comments Etoh (%) (test code = Etoh (%)) no gt [facility]
[2021-08-18] MEDS ORDERED: LEVALBUTEROL 1.25 MG/3 ML NEB ONE (01:07)
[2021-08-18] MEDS ORDERED: IPRATROPIUM BROM 0.5MG/2.5ML ONE (01:07)
[2021-08-18] MEDS ORDERED: NA CHLORIDE 0.9% 1,000 ML ONE (01:07)
[2021-08-18 01:17] LABS: Absolute Lymphocytes (CBC) 1.6 K/uL (0.7-4.9); Hematocrit 40.9 % (39.6-49.0); Lymphocytes % 34.6 % (15.3-44.8); MPV 8.8 fL (7.6-11.3); RBC Red Blood Cell Count 4.46 M/uL (4.33-5.43)
[2021-08-18 01:18] LABS: Protime INR 1.06
[2021-08-18] MEDS ORDERED: FOLIC ACID 5 MG/ML VIAL ONE (01:23)
[2021-08-18] MEDS ORDERED: NA CHLORIDE 0.9% 50 ML ONE (01:23)
[2021-08-18] MEDS ORDERED: NA CHLORIDE 0.9% 100 ML IV ONE (01:26)
[2021-08-18] MEDS ORDERED: PIPERACIL/TAZO 3.375 GM VIAL IV ONE (01:26)
[2021-08-18 01:28] LABS: Magnesium 2.1 mg/dL (1.8-2.4); Potassium 4.1 mmol/L (3.5-5.1)
--- NOTE | 2021-08-18 01:39 | ER ---
Nurse's Notes [facility] Name: Beto Schreiber Sr Age: 89 yrs Sex: Male : 1930 Arrival Date: 08/18/2021 Time: 00:06 Bed 6 Private MD: Diagnosis: Acute kidney failure, unspecified-on chronic;Aphasia following cerebral infarction;Dysphagia;Type 2 diabetes mellitus with hyperglycemia Presentation: 08/18 00:06 Method Of Arrival: EMS: [facility] al4 00:06 Chief complaint: EMS states: last known normal 1700. family states patient stated he al4 didn't feel good at 1700 and then his expressive aphasia worsened since then. equal clinical care coordinator strength, BGL 101, Hx of TIA May 2021 and July 2021. Initial Sepsis Screen: Does the patient meet any 2 criteria? RR > 20 per min. No. Patient's initial sepsis screen is negative. Does the patient have a suspected source of infection? No. Patient's initial sepsis screen is negative. Risk Assessment: Do you want to hurt yourself or someone else? Patient reports no desire to harm self or others. Onset of symptoms was August 18, 2021. 00:06 Acuity: ASMITA 3 al4 00:06 An acute neurological deficit is present. The patient has been moved to a treatment tx4 area. The patients blood glucose was checked before arriving to the hospital and was found to be normal. 00:06 Ebola Screen: No symptoms or risks identified at this time. al4 03:47 Coronavirus screen: Vaccine status: Patient reports receiving the 2nd dose of the covid al4 vaccine. wesly. Triage Assessment: 00:06 General: Appears in no apparent distress. uncomfortable, Behavior is calm, quiet. Pain: al4 Unable to use pain scale. Patient appears quiet. Neuro: Level of Consciousness is awake, alert, obeys commands, Oriented to unable to assess. Honing Job Setter are weak bilaterally Weakness Speech with expressive aphasia noted, Facial symmetry appears normal. Cardiovascular: Denies chest pain, Patient's skin is warm and dry. Respiratory: Airway is patent Respiratory effort is unlabored, non productive cough. 00:06 The onset of the patients symptoms was August 17, 2021 at 17:00. al4 13:23 Neuro: Reports. vg1 Stroke Activation: Physician: Stroke Attending; Name: ; Notified At: 00:01; Arrived At: 00:01 Physician: Chief Stroke Resident; Name: ; Notified At: 00:01; Arrived At: Physician: Stroke Resident; Name: ; Notified At: 00:01; Arrived At: Physician: ED Attending; Name: Brock; Notified At: 00:01; Arrived At: Physician: ED Resident; Name: ; Notified At: 00:01; Arrived At: Historical: - Allergies: 00:46 meperidine; al4 - PMHx: 00:46 CVA; Diabetes - NIDDM; Hypertension; Hypothyroidism; Myocardial infarction; subdural al4 hematoma; - Immunization history:: Adult Immunizations up to date, Client reports receiving the 2nd dose of the Covid vaccine, moderna Pneumococcal vaccine is up to date, Flu vaccine is up to date. - Social history:: Smoking status: Patient denies any tobacco usage or history of. - Family history:: not pertinent. Screenin:25 Abuse screen: Denies threats or abuse. Nutritional screening: No deficits noted. al4 Tuberculosis screening: No symptoms or risk factors identified. 03:47 Fall Risk No fall in past 12 months (0 pts). IV access (20 points). Ambulatory Aid- al4 Crutches/Cane/Walker (15 pts). Gait- Impaired (20 pts.). Mental Status- Oriented to own ability (0 pts). Total M[place]ra Fall Scale indicates High Risk Score (45 or more points). Fall prevention measures have been instituted. Side Rails Up X 2 Placed Close to Nursing Station Frequent Obs/Assessments Occuring Family Present and informed to notify staff if the need to leave the bedside. Assessment: 00:25 VAN Scoring: Arm Drift: Minor drift Visual Disturbance: No visual disturbance noted. al4 Aphasia: Expressive aphasia noted. Provider notified of +VAN scoring. 00:25 T-PA (Activase) Screening: Contraindications: Patient reports onset of signs and al4 symptoms of stroke greater than 6 hours ago:. 00:25 Reassessment: NIH stroke scale completed at bedside. Patient has deficits from previous al4 injuries which makes determining baseline difficult. 00:40 Reassessment: AVIONICS SYSTEMS TECHNICIAN and ERT trying for IV access. al4 01:00 Reassessment: Brock DALTON aware of no IV access at this time. ER RNs attempting access. al4 01:00 Reassessment: Patient appears in no apparent distress at this time. Patients son, Bryce, al4 at bedside. Bryce is able to help RN communicate with patient. . 01:00 Reassessment: son states patient has weakness and expressive aphasia from previous al4 injuries, but the aphasia is worse than baseline at this time. 01:33 Reassessment: Aspirin 300 mg [place] not available in ED. Waiting for medication to be al4 received from ICU before RN can administer. 01:40 Reassessment: RN clarified with charge nurse on how often this patient is supposed to al4 have an NIH stoke scale exam done. DAMARI Horton stated that this patient only needs an NIH stroke scale done if there is a change in patient condition or patient is transferred somewhere. 02:00 Reassessment: Dr. Gutiérrez at bedside gave direct verbal order to have patient take al4 medication during swallow screen. 02:02 The patient has not been NPO before screening. The patient is currently on the al4 following diet: Regular solid foods according to family The patient is alert, and able to follow commands. The patient exhibits slurred or garbled speech. Provider notified of the indication for Speech Therapy consult. The patient is exhibiting difficulty speaking. Provider notified of the indication for Speech Therapy consult. The patient does not exhibit difficulty understanding words. The patient is able to swallow own secretions with no drooling or need for suction. The patient did not tolerate one teaspoon of water. Drooling, immediate coughing, gurgling, or clearing of the throat was noted. Bedside swallow screening discontinued. Patient kept NPO until cleared by Speech Therapy or Physician. The patient failed the bedside swallow screening. The patient will be kept NPO until cleared by Speech Therapy or Physician. Provider notified of bedside swallow screening results: Gaston Gutiérrez MD. 02:05 not done. al4 02:12 Reassessment: Patient appears in no apparent distress at this time. patient awake and al4 alert. 03:00 Reassessment: patient refuses suctioning. al4 03:09 Reassessment: Patient appears in no apparent distress at this time. patient is awake al4 and alert. patient is able to shake head yes and no to answer questions. patient appears comfortable at this time and denies pain. 03:30 Reassessment: RN offered to suction patient to help facilitate secretion elimination. al4 Patient refused. Vital Signs: 00:20 BP 145 / 89; Pulse 58; Resp 24; Temp 98.5; Pulse Ox 97% ; al4 01:00 BP 144 / 95; Pulse 57; Resp 16 S; Pulse Ox 96% on R/A; al4 01:45 BP 135 / 93; Pulse 52; Resp 16; Pulse Ox 100% on R/A; al4 02:30 BP 121 / 79; Pulse 67; Resp 18 S; Pulse Ox 100% on R/A; al4 03:15 BP 131 / 81; Pulse 65; Resp 17 S; Pulse Ox 100% on R/A; al4 NIH Stroke Scale Scores: 00:25 NIHSS Score: 9 al4 00:31 NIHSS Score: 6 [facility] ED Course: 00:06 Patient arrived in ED. mw2 00:10 Gaston Gutiérrez MD is Attending Physician. ian 00:19 Ct Stroke Brain Wo Cont In Process Unspecified. EDMS 00:25 Patient has correct armband on for positive identification. Bed in low position. Call al4 light in reach. Side rails up X2. Adult w/ patient. 00:25 chaser helper on. Pulse ox on. NIBP on. al4 00:29 Lance Lopez is Primary Nurse. al4 00:44 Triage completed. al4 00:49 Arm band placed on. al4 01:05 First set of blood cultures drawn by me. Inserted saline lock: 20 gauge in right bb antecubital area, using aseptic technique. Blood collected. 01:20 Second set of blood cultures drawn by me. bb 01:25 COVID-19/FLU A+B (Document "Date of Onset" if Symptomatic) Sent. al4 01:34 intiated a transfer with [facility] [place]. mw2 01:41 intiated a transfer with Cookie Ace from [facility] [place]. mw2 01:54 Joey Burkett MD is Hospitalizing Provider. ian 02:15 canceled the transfer with [facility]. mw2 02:23 canceled the transfer with [facility]. mw2 02:30 Straight cath inserted, using sterile technique, 14 Fr. Specimen obtained. Returned al4 bloody urine. Patient tolerated well. 02:37 Urine Culture Sent. al4 02:37 Blood Culture Adult (2) Sent. al4 02:38 Stroke CXR 1 View In Process Unspecified. EDMS 03:48 No provider procedures requiring assistance completed. Patient admitted, IV remains in al4 place. Administered Medications: 01:31 Not Given (Other Intervention Used): Aspirin 81 mg PO once al4 01:37 Drug: NS 0.9% 1000 ml Route: IV; Rate: 1 bolus; Site: right antecubital; al4 03:13 Follow up: Response: No adverse reaction; IV Status: Completed infusion; IV Intake: al4 1000ml 01:37 Drug: foLIC Acid 1 mg Route: IVPB; Site: right antecubital; al4 01:55 Follow up: Response: No adverse reaction; IV Status: Completed infusion al4 03:13 Follow up: IV Intake: 50ml al4 01:42 Drug: Xopenex (levalbuterol) 1.25 mg Route: Inhalation; al4 02:38 Follow up: Response: No adverse reaction al4 01:42 Drug: AtroVENT (ipratropium) Aerosol 0.5 mg Route: Inhalation; al4 02:38 Follow up: Response: No adverse reaction al4 01:50 Drug: Zosyn (piperacillin-tazobactam) 3.375 grams Route: IVPB; Infused Over: 60 mins; al4 Site: right antecubital; 03:00 Follow up: Response: No adverse reaction; IV Status: Completed infusion al4 03:13 Follow up: IV Intake: 100ml al4 02:00 Drug: PlaVIX (clopidogrel) 75 mg {Note: crushed and given to patient with MD Gutiérrez al4 verbal orders at bedside .} Route: PO; 02:37 Follow up: Response: No adverse reaction al4 02:20 Drug: Aspirin Suppository 300 mg Route: [place]; as6 03:14 Follow up: Response: No adverse reaction al4 Point of Care Testing: Blood Glucose: 00:19 Blood Glucose: 101 mg/dL; al4 Ranges: Intake: 03:13 IV: 1000ml; Total: 1000ml. al4 03:13 IV: 100ml; Total: 1100ml. al4 03:13 IV: 50ml; Total: 1150ml. al4 Outcome: 01:38 ER care complete, transfer ordered by . ian 01:58 Decision to Hospitalize by Provider. ian 03:48 Admitted to ER Hold. Please see [facility] for further documentation. al4 03:48 Condition: stable 03:48 Discharge instructions given to patient, family, Instructed on the need for admit, Demonstrated understanding of instructions. 13:23 Patient left the ED. vg1 NIH Stroke Scale - NIH Stroke Score Date: 08/18/2021 Time: 00:25 Total Score = 9 1a. Level of Consciousness (LOC) - 0(Alert) 1b. Level of Consciousness (LOC) (Month \\T\\ Age) - 2(Neither) 1c. LOC Commands (Open \\T\\ Closes Eyes/Business Administration Program Chair) - 0(Both) 2. Best Gaze (Lateral Gaze Paresis) - 0(Normal) 3. Visual Field Loss - 0(No visual loss) 4. Facial Palsy - 0(Normal) 5a. Left Arm: Motor (10-second hold) - 0(No drift) 5b. Right Arm: Motor (10-second hold) - 1(Drift) 6a. Left Leg: Motor (5-second hold - always test supine) - 0(No drift) 6b. Right Leg: Motor (5-second hold - always test supine) - 0(No drift) 7. Limb Ataxia (finger/nose \\T\\ heel/hodgson - test with eyes open) - 2(Present in two limbs) 8. Sensory Loss (pinprick arms/legs/face) - 0(Normal) 9. Best Language: Aphasia (description/naming/reading) - 2(Severe aphasia) 10. Dysarthria (speech clarity - read or repeat words) - 2(Severe) 11. Extinction and Inattention (visual/tactile/auditory/spatial/personal) - 0(No abnormality) Initials: al4 NIH Stroke Scale - NIH Stroke Score Date: 08/18/2021 Time: 00:31 Total Score = 6 1a. Level of Consciousness (LOC) - 0(Alert) 1b. Level of Consciousness (LOC) (Month \\T\\ Age) - 2(Neither) 1c. LOC Commands (Open \\T\\ Closes Eyes/Business Administration Program Chair) - 0(Both) 2. Best Gaze (Lateral Gaze Paresis) - 0(Normal) 3. Visual Field Loss - 0(No visual loss) 4. Facial Palsy - 0(Normal) 5a. Left Arm: Motor (10-second hold) - 0(No drift) 5b. Right Arm: Motor (10-second hold) - 0(No drift) 6a. Left Leg: Motor (5-second hold - always test supine) - 0(No drift) 6b. Right Leg: Motor (5-second hold - always test supine) - 0(No drift) 7. Limb Ataxia (finger/nose \\T\\ heel/hodgson - test with eyes open) - 0(Absent) 8. Sensory Loss (pinprick arms/legs/face) - 0(Normal) 9. Best Language: Aphasia (description/naming/reading) - 2(Severe aphasia) 10. Dysarthria (speech clarity - read or repeat words) - 2(Severe) 11. Extinction and Inattention (visual/tactile/auditory/spatial/personal) - 0(No abnormality) Initials: ian Signatures: Dispatcher [employer] EDMS Gaston Gutiérrez MD MD cha Ballard, Brenda, RN RN bb Trerie Martinez mw2 Lula Stauffer RN RN 1 [place] RN RN as6 Lance Lopez al4 Corrections: (The following items were deleted from the chart) 00:49 00:46 General: Appears in no apparent distress. uncomfortable, Behavior is al4 calm, quiet, al4 00:49 00:46 Pain: Unable to use pain scale. Patient appears quiet, al4 al4 00:49 00:46 Neuro: Level of Consciousness is awake, alert, obeys commands, Oriented al4 to unable to assess. Honing Job Setter are weak bilaterally Weakness Speech with expressive aphasia noted, Facial symmetry appears normal, al4 00:49 00:46 Cardiovascular: Patient's skin is warm and dry. al4 al4 00:49 00:46 Respiratory: Airway is patent Respiratory effort is unlabored, al4 al4 00:50 00:05 Chief complaint: EMS states: last known normal 1700. family states al4 patient stated he didn't feel good at 1700 and then his expressive aphasia worsened since then. equal clinical care coordinator strength, BGL 101, Hx of TIA May 2021 and July 2021 al4 00:50 00:05 Initial Sepsis Screen: Does the patient meet any 2 criteria? RR > 20 per al4 min. No. Patient's initial sepsis screen is negative. Does the patient have a suspected source of infection? No. Patient's initial sepsis screen is negative. al4 00:50 00:05 Risk Assessment: Do you want to hurt yourself or someone else? Patient al4 reports no desire to harm self or others. al4 :50 00:05 Onset of symptoms was August 18, 2021 al4 al4 :50 00:05 Method Of Arrival: EMS: [facility] tx4 al4 :50 00:05 Acuity: ASMITA 3 al4 al4 :51 00:05 General: Appears in no apparent distress. uncomfortable, Behavior is al4 calm, quiet, al4 00:05 Pain: Unable to use pain scale. Patient appears quiet, al4 al4 :51 00:05 Neuro: Level of Consciousness is awake, alert, obeys commands, Oriented al4 to unable to assess. Honing Job Setter are weak bilaterally Weakness Speech with expressive aphasia noted, Facial symmetry appears normal, al4 00:05 Respiratory: Airway is patent Respiratory effort is unlabored, al4 al4 :51 00:05 Cardiovascular: Patient's skin is warm and dry. al4 al4 00:52 00:52 Reassessment: AVIONICS SYSTEMS TECHNICIAN and ERT trying for IV access al4 al4 01:12 01:04 HEPATIC FUNCTION+C.LAB.BRZ drawn and sent. al4 EDMS :12 01:04 MAGNESIUM+C.LAB.BRZ drawn and sent. al4 EDMS :12 01:04 PROBNP+C.LAB.BRZ drawn and sent. al4 EDMS : 01:04 Troponin High Sensitivity+C.LAB.BRZ drawn and sent. al4 EDMS :12 01:04 CBC+H.LAB.BRZ drawn and sent. al4 EDMS :12 01:04 PTT, ACTIVATED+COAG.LAB.BRZ drawn and sent. al4 EDMS :12 01:04 PROTIME (+INR)+COAG.LAB.BRZ drawn and sent. al4 EDMS :12 01:05 BASIC METABOLIC PANEL+C.LAB.BRZ drawn and sent. al4 EDMS 02:39 02:02 The patient has not been NPO before screening. The patient is currently al4 on the following diet: Regular solid foods according to family The patient is alert, and able to follow commands. The patient exhibits slurred or garbled speech. Provider notified of the indication for Speech Therapy consult. The patient is exhibiting difficulty speaking. Provider notified of the indication for Speech Therapy consult. The patient does not exhibit difficulty understanding words. The patient is able to swallow own secretions with no drooling or need for suction. The patient did not tolerate one teaspoon of water. Drooling, immediate coughing, gurgling, or clearing of the throat was noted. Bedside swallow screening discontinued. Patient kept NPO until cleared by Speech Therapy or Physician. The patient failed the bedside swallow screening. The patient will be kept NPO until cleared by Speech Therapy or Physician. Provider notified of bedside swallow screening results: Gaston Gutiérrez MD al4 02:42 02:40 Reassessment: Dr. Gutiérrez at bedside gave direct verbal order to have al4 patient take medication during swallow screen al4 02:43 02:00 Reassessment: Dr. Gutiérrez at bedside gave direct verbal order to have al4 patient take medication during swallow screen al4 02:58 02:12 Reassessment: Patient appears in no apparent distress at this time. al4 al4 02:58 02:12 Reassessment: Patient appears in no apparent distress at this time. al4 patient awake and alert. al4 03:05 00:06 Cardiovascular: Patient's skin is warm and dry. al4 al4 03:05 00:06 Respiratory: Airway is patent Respiratory effort is unlabored, al4 al4 07:10 00:25 NIHSS Score: 7 al4 al4 07:10 00:25 NIHSS Score: 9 al4 al4 07:10 07:06 NIHSS Score: 9 al4 al4 07:29 01:00 Reassessment: Patient appears in no apparent distress at this time. al4 Patients son, Bryce, at bedside. al4
--- NOTE | 2021-08-18 01:40 | EDPHYS ---
Physician Documentation [facility] Name: Beto Schreiber Sr Age: 89 yrs Sex: Male : 1930 Arrival Date: 08/18/2021 Time: 00:06 Bed 6 Private MD: ED Physician Gaston Gutiérrez HPI: 08/18 00:43 This 89 yrs old Black Male presents to ER via Unassigned with complaints of slurred ian speech and difficulty swallowing 6pm. 00:43 The patient has shortness of breath at rest. Onset: The symptoms/episode began/occurred ian 7 hour(s) ago. Duration: The symptoms are continuous, and are steadily getting worse. The patient's shortness of breath is aggravated by nothing, is alleviated by nothing. slurred speech 6m, difficulty with speech. Associated signs and symptoms: Pertinent positives: non-productive cough. Severity of symptoms: At their worst the symptoms were moderate in the emergency department the symptoms are unchanged. The patient or guardian reports cough. Severity of symptoms: At their worst the symptoms were moderate, in the emergency department the symptoms are unchanged. Historical: - Allergies: 00:46 meperidine; al4 - PMHx: 00:46 CVA; Diabetes - NIDDM; Hypertension; Hypothyroidism; Myocardial infarction; subdural al4 hematoma; - Immunization history:: Adult Immunizations up to date, Client reports receiving the 2nd dose of the Covid vaccine, moderna Pneumococcal vaccine is up to date, Flu vaccine is up to date. - Social history:: Smoking status: Patient denies any tobacco usage or history of. - Family history:: not pertinent. ROS: 00:43 Constitutional: Negative for fever, chills, and weight loss, Eyes: Negative for injury, ian pain, redness, and discharge, ENT: Negative for injury, pain, and discharge, Neck: Negative for injury, pain, and swelling, Cardiovascular: Negative for chest pain, palpitations, and edema, Respiratory: Negative for shortness of breath, cough, wheezing, and pleuritic chest pain, Abdomen/GI: Negative for abdominal pain, nausea, vomiting, diarrhea, and constipation, Back: Negative for injury and pain, : Negative for injury, bleeding, discharge, and swelling, MS/Extremity: Negative for injury and deformity, Skin: Negative for injury, rash, and discoloration, Psych: Negative for depression, anxiety, suicide ideation, homicidal ideation, and hallucinations, Allergy/Immunology: Negative for hives, rash, and allergies, Endocrine: Negative for neck swelling, polydipsia, polyuria, polyphagia, and marked weight changes. 00:43 Neuro: Positive for altered mental status, speech changes, weakness. Exam: 00:31 Constitutional: This is a well developed, well nourished patient who is awake, alert, ian and in no acute distress. Head/Face: Normocephalic, atraumatic. Eyes: Pupils equal round and reactive to light, extra-ocular motions intact. Lids and lashes normal. Conjunctiva and sclera are non-icteric and not injected. Cornea within normal limits. Periorbital areas with no swelling, redness, or edema. Neck: Trachea midline, no thyromegaly or masses palpated, and no cervical lymphadenopathy. Supple, full range of motion without nuchal rigidity, or vertebral point tenderness. No Meningismus. Chest/axilla: Normal chest wall appearance and motion. Nontender with no deformity. No lesions are appreciated. Cardiovascular: Regular rate and rhythm with a normal S1 and S2. No gallops, murmurs, or rubs. Normal PMI, no JVD. No pulse deficits. Respiratory: Lungs have equal breath sounds bilaterally, clear to auscultation and percussion. No rales, rhonchi or wheezes noted. No increased work of breathing, no retractions or nasal flaring. Abdomen/GI: Soft, non-tender, with normal bowel sounds. No distension or tympany. No guarding or rebound. No evidence of tenderness throughout. Back: No spinal tenderness. No costovertebral tenderness. Full range of motion. Male : Normal genitalia with no discharge or lesions. Skin: Warm, dry with normal turgor. Normal color with no rashes, no lesions, and no evidence of cellulitis. MS/ Extremity: Pulses equal, no cyanosis. Neurovascular intact. Full, normal range of motion. Psych: Awake, alert, with orientation to person, place and time. Behavior, mood, and affect are within normal limits. 00:31 ENT: slurred speech, difficulty swallowing. 00:31 ECG was reviewed by the Attending Physician. 00:46 Neuro: Orientation: is normal, appropriate for stated age, no acute changes, Mentation: ian appropriate for stated age, no acute changes, responsive to voice Memory: unable to test, Cranial nerves: is grossly normal based on the patient's age, no acute changes, Cerebellar function: unable to test, Motor: moves all fours, strength is normal, Sensation: no obvious gross deficits, appropriate no acute changes, Gait: not tested. Deep tendon reflexes are 1 (trace) + in the right patellar and left patellar, Babinski testing is normal, seizure activity, is not displayed by the patient. Vital Signs: 00:20 BP 145 / 89; Pulse 58; Resp 24; Temp 98.5; Pulse Ox 97% ; al4 01:00 BP 144 / 95; Pulse 57; Resp 16 S; Pulse Ox 96% on R/A; al4 01:45 BP 135 / 93; Pulse 52; Resp 16; Pulse Ox 100% on R/A; al4 02:30 BP 121 / 79; Pulse 67; Resp 18 S; Pulse Ox 100% on R/A; al4 03:15 BP 131 / 81; Pulse 65; Resp 17 S; Pulse Ox 100% on R/A; al4 NIH Stroke Scale Scores: 00:25 NIHSS Score: 9 al4 00:31 NIHSS Score: 6 ian MDM: 00:10 Patient medically screened. ian 00:47 Differential diagnosis: CHF exacerbation, Chronic Obstructive Pulmonary Disease ian pneumonia, pulmonary edema, Sepsis. Antibiotic administration: zosyn. Differential Diagnosis altered mental status, sepsis, Obstructed Airway Influenza Upper Respiratory Infection Pharyngitis. The patient's Wells Deep Vein Thrombosis Score was calculated as follows: Total Score: 0-2 Pts- Low Risk. The patient's pulmonary embolism risk score was calculated as follows: Total Score: 0-2 points. This patient was found to be at low risk for a pulmonary embolism by using the Well's assessment criteria. Immunization status: Pneumococcal vaccine: Influenza vaccine: Data reviewed: vital signs, nurses notes, lab test result(s), EKG, radiologic studies, CT scan, plain films. Data interpreted: hospital monitor: rate is 58 beats/min, rhythm is regular, Pulse oximetry: on room air is 97 %. 01:15 ED course: no tpa/tnk over 6 hours since onset of symptoms. [facility] 08/18 00:12 Order name: Urine Culture [facility] 08/18 00:29 Order name: Blood Culture Adult (2) [facility] 08/18 00:29 Order name: Lactate; Complete Time: 02:30 ian 08/18 00:30 Order name: COVID-19/FLU A+B (Document "Date of Onset" if Symptomatic); Complete Time: ian 02:30 08/18 00:31 Order name: Glucose, Ancillary Testing; Complete Time: 00:55 EDMS 08/18 01:07 Order name: Basic Metabolic Panel EDMS 08/18 01:07 Order name: Troponin High Sensitivity EDMS 08/18 01:07 Order name: NT PRO-BNP EDMS 08/18 01:07 Order name: Magnesium EDMS 08/18 01:07 Order name: Procalcitonin; Complete Time: 02:30 EDMS 08/18 01:07 Order name: CBC with Automated Diff; Complete Time: 01:32 EDMS 08/18 01:07 Order name: Protime (+INR); Complete Time: 01:32 EDMS 08/18 01:07 Order name: PTT, Activated Partial Thromb; Complete Time: 01:32 EDMS 08/18 02:35 Order name: Urine Dipstick-Ancillary; Complete Time: 03:16 EDMS 08/18 06:16 Order name: Lipid Profile EDMS 08/18 06:16 Order name: Thyroid Stimulating Hormone EDMS 08/18 10:07 Order name: Glucose, Ancillary Testing EDMS 08/18 11:03 Order name: Lipid Profile EDMS 08/18 11:54 Order name: Glucose, Ancillary Testing EDMS 08/18 00:07 Order name: Stroke CXR 1 View [facility] 08/18 00:07 Order name: EKG; Complete Time: 01:01 2 08/18 00:07 Order name: Accucheck; Complete Time: 00:23 2 08/18 00:07 Order name: Cardiac monitoring; Complete Time: 00:29 mw2 08/18 00:07 Order name: EKG - Nurse/Tech; Complete Time: 00:23 2 08/18 00:07 Order name: IV Saline Lock; Complete Time: 02:07 2 08/18 00:07 Order name: Labs collected and sent; Complete Time: 02:07 2 08/18 00:07 Order name: NPO; Complete Time: 00:29 mw2 08/18 00:07 Order name: O2 Per Protocol; Complete Time: 00:29 2 08/18 00:07 Order name: O2 Sat Monitoring; Complete Time: 00:29 mw2 08/18 00:07 Order name: Stroke Swallow Screen; Complete Time: 02:39 mw2 08/18 00:12 Order name: Urine Dipstick-Ancillary (obtain specimen); Complete Time: 02:37 ian 08/18 00:19 Order name: Ct Stroke Brain Wo Cont EDMS 08/18 00:46 Order name: Neck Angio EDMS 08/18 00:46 Order name: Head angio EDMS EC:31 Rate is 60 beats/min. Rhythm is regular. QRS [place] is Normal. CA interval is normal. QRS ian interval is normal. QT interval is normal. No Q waves. T waves are Normal. No ST changes noted. Clinical impression: Normal ECG and No evidence of ischemia. Interpreted by me. Reviewed by me. Administered Medications: 01:31 Not Given (Other Intervention Used): Aspirin 81 mg PO once al4 01:37 Drug: NS 0.9% 1000 ml Route: IV; Rate: 1 bolus; Site: right antecubital; al4 03:13 Follow up: Response: No adverse reaction; IV Status: Completed infusion; IV Intake: al4 1000ml 01:37 Drug: foLIC Acid 1 mg Route: IVPB; Site: right antecubital; al4 01:55 Follow up: Response: No adverse reaction; IV Status: Completed infusion al4 03:13 Follow up: IV Intake: 50ml al4 01:42 Drug: Xopenex (levalbuterol) 1.25 mg Route: Inhalation; al4 02:38 Follow up: Response: No adverse reaction al4 01:42 Drug: AtroVENT (ipratropium) Aerosol 0.5 mg Route: Inhalation; al4 02:38 Follow up: Response: No adverse reaction al4 01:50 Drug: Zosyn (piperacillin-tazobactam) 3.375 grams Route: IVPB; Infused Over: 60 mins; al4 Site: right antecubital; 03:00 Follow up: Response: No adverse reaction; IV Status: Completed infusion al4 03:13 Follow up: IV Intake: 100ml al4 02:00 Drug: PlaVIX (clopidogrel) 75 mg {Note: crushed and given to patient with MD Gutiérrez al4 verbal orders at bedside .} Route: PO; 02:37 Follow up: Response: No adverse reaction al4 02:20 Drug: Aspirin Suppository 300 mg Route: CA; as6 03:14 Follow up: Response: No adverse reaction al4 Point of Care Testing: Blood Glucose: 00:19 Blood Glucose: 101 mg/dL; al4 Ranges: Critical Glucose Levels:Adult <50 mg/dl or >400 mg/dl <40 mg/dl or >180 mg/dl Disposition Summary: 08/18/21 01:58 Hospitalization Ordered Hospitalization Status: Inpatient Admission ian Provider: Joey Burkett cha Condition: Fair(08/18/21 01:58) ian Problem: new(08/18/21 01:58) ian Symptoms: are unchanged(08/18/21 01:58) ian Bed/Room Type: Standard ian Location: Telemetry/MedSurg (Inpatient)(08/18/21 10:52) bd Room Assignment: [facility](08/18/21 10:52) bd Diagnosis - Acute kidney failure, unspecified - on chronic ian - Aphasia following cerebral infarction(08/18/21 01:58) ian - Dysphagia(08/18/21 01:58) ian - Type 2 diabetes mellitus with hyperglycemia(08/18/21 01:58) ian Forms: - Medication Reconciliation Form ian - SBAR form ian NIH Stroke Scale - NIH Stroke Score Date: 08/18/2021 Time: 00:25 Total Score = 9 1a. Level of Consciousness (LOC) - 0(Alert) 1b. Level of Consciousness (LOC) (Month \\T\\ Age) - 2(Neither) 1c. LOC Commands (Open \\T\\ Closes Eyes/Boy'S Adviser) - 0(Both) 2. Best Gaze (Lateral Gaze Paresis) - 0(Normal) 3. Visual Field Loss - 0(No visual loss) 4. Facial Palsy - 0(Normal) 5a. Left Arm: Motor (10-second hold) - 0(No drift) 5b. Right Arm: Motor (10-second hold) - 1(Drift) 6a. Left Leg: Motor (5-second hold - always test supine) - 0(No drift) 6b. Right Leg: Motor (5-second hold - always test supine) - 0(No drift) 7. Limb Ataxia (finger/nose \\T\\ heel/hodgson - test with eyes open) - 2(Present in two limbs) 8. Sensory Loss (pinprick arms/legs/face) - 0(Normal) 9. Best Language: Aphasia (description/naming/reading) - 2(Severe aphasia) 10. Dysarthria (speech clarity - read or repeat words) - 2(Severe) 11. Extinction and Inattention (visual/tactile/auditory/spatial/personal) - 0(No abnormality) Initials: al4 NIH Stroke Scale - NIH Stroke Score Date: 08/18/2021 Time: 00:31 Total Score = 6 1a. Level of Consciousness (LOC) - 0(Alert) 1b. Level of Consciousness (LOC) (Month \\T\\ Age) - 2(Neither) 1c. LOC Commands (Open \\T\\ Closes Eyes/Boy'S Adviser) - 0(Both) 2. Best Gaze (Lateral Gaze Paresis) - 0(Normal) 3. Visual Field Loss - 0(No visual loss) 4. Facial Palsy - 0(Normal) 5a. Left Arm: Motor (10-second hold) - 0(No drift) 5b. Right Arm: Motor (10-second hold) - 0(No drift) 6a. Left Leg: Motor (5-second hold - always test supine) - 0(No drift) 6b. Right Leg: Motor (5-second hold - always test supine) - 0(No drift) 7. Limb Ataxia (finger/nose \\T\\ heel/hodgson - test with eyes open) - 0(Absent) 8. Sensory Loss (pinprick arms/legs/face) - 0(Normal) 9. Best Language: Aphasia (description/naming/reading) - 2(Severe aphasia) 10. Dysarthria (speech clarity - read or repeat words) - 2(Severe) 11. Extinction and Inattention (visual/tactile/auditory/spatial/personal) - 0(No abnormality) Initials: ian Signatures: Dispatcher [employer] EDMS Claudia Pulido Corey, MD MD cha Garcia, Cindy, RN RN Terrie Thompson2 [place] RN RN as6 Lance Lopez al4 Sruthi Mckeon PA PA sb3 Corrections: (The following items were deleted from the chart) 01: 01:00 CT-STROKE BRAIN W/O CONTRAST+CT.RAD.BRZ ordered. EDMS EDMS 01:12 01:00 BASIC METABOLIC PANEL+C.LAB.BRZ ordered. EDMS EDMS 01:12 01:00 CBC+H.LAB.BRZ ordered. EDMS EDMS 01:12 01:00 PROTIME (+INR)+COAG.LAB.BRZ ordered. EDMS EDMS 01:12 01:00 PTT, ACTIVATED+COAG.LAB.BRZ ordered. EDMS EDMS 01:12 01:02 HEPATIC FUNCTION+C.LAB.BRZ ordered. EDMS EDMS 01:12 01:02 MAGNESIUM+C.LAB.BRZ ordered. EDMS EDMS 01:12 01:02 PROBNP+C.LAB.BRZ ordered. EDMS EDMS 01:12 01:02 Troponin High Sensitivity+C.LAB.BRZ ordered. EDMS EDMS 01:12 01:02 SARS-COV-2 RT PCR+MOL.LAB.BRZ ordered. EDMS EDMS 01:12 01:02 PCT+C.LAB.BRZ ordered. EDMS EDMS 01:54 01:38 stroke team ian ian 01:54 01:38 [facility] ian ian 01:54 01:38 Higher level of care ian ian 01:54 01:38 Fair ian ian 01:54 01:38 new ian ian 01:54 01:38 have improved ian ian 01:54 01:38 Aphasia following cerebral infarction ian ian 01:54 01:38 Dysphagia ian ian 01:54 01:38 Type 2 diabetes mellitus with hyperglycemia ian ian 02:56 01:58 Telemetry/MedSurg (Inpatient) ian cg 02:56 01:58 ian cg 10:52 02:56 BR ER HOLD cg bd 10:52 02:56 ERHOLD- cg bd
[2021-08-18] MEDS ORDERED: ASPIRIN 300 MG/SUPP ONE (01:51)
[2021-08-18 01:56] LABS: SARS-COV-2 RT PCR NEGATIVE (NEGATIVE)
[2021-08-18] MEDS ORDERED: CLOPIDOGREL 75 MG TABLET ONE (01:56)
[2021-08-18] MEDS ORDERED: ASPIRIN 600 MG/SUPP PR SCH (02:00)
[2021-08-18 02:35] LABS: Urine Blood 3+ (Negative); Urine Glucose Negative (Negative); Urine Protein Negative (Negative); Urine Specific Gravity 1.025 (1.005-1.030); Urine pH 6.5 (5.0-7.0)
[2021-08-18 03:19] VITALS: BMI 31.8
--- NOTE | 2021-08-18 03:28 | P.HP ---
Certification for Inpatient Patient admitted to: Inpatient With expected LOS: >2 Midnights Patient will require the following post-hospital care: Rehabilitation Practitioner: I am a practitioner with admitting privileges, knowledge of patient current condition, hospital course, and medical plan of care. Services: Services provided to patient in accordance with Admission requirements found in Title 42 Section 412.3 of the Code of Federal Regulations Patient History Date of Service: 08/18/21 Reason for admission: CVA History of Present Illness: Patient is an 89-year-old male with past medical history of multiple TIAs, TBI with resulting dysphagia/aphasia, type 2 diabetes [id number], hypothyroidism who presented to the ED via EMS with worsening dysphagia and aphasia. Per patient's son, patient was behaving appropriately until around 6 PM when he started having difficulty walking and speaking. Patient's son states that this has happened in the past with his TIAs and it usually resolves within an hour or so. However, when it did not improve he called EMS. In the ED, CT head did not show any acute findings. CT h ead/neck angio could not be completed due to patient's kidney function. He was given Zosyn, rectal aspirin, and IV folic acid. Upon my assessment, patient is alert and can respond to questions nonverbally (although he does attempt to verbalize answers). He denies chest pain or shortness of breath. Attempt was made to transfer but declined. Dr. Carpio was notified and wishes to admit patient for further evaluation and management. Allergies meperidine HCl [From Demerol] Allergy (Verified 09/10/20 23:35) hallucinations Home Medications: Levothyroxine [Synthroid*] 0.75 tab PO DAILY 06/19/19 Aspirin [Valentín Chewable Aspirin] 1 tab PO DAILY 09/08/20 Furosemide [Lasix*] 20 mg PO DAILY 09/08/20 OXcarbazepine [Oxcarbazepine] 150 mg PO BID 09/08/20 Pantoprazole [Protonix Tab*] 40 mg PO DAILY #30 tab 09/09/20 Atorvastatin Calcium [Lipitor] 40 mg PO BEDTIME tab 09/12/20 Melatonin 5 mg PO BEDTIME PRN PRN #14 tablet 05/29/21 - Past Medical/Surgical History Diabetic: Yes -: Hypertension -: Hypothyroidism -: Chronic diastolic CHF -: CAD -: History of subdural hematomas -: Chronic hyponatremia -: History of traumatic brain injury with speech dysfunction -: Type 2 Diabetes -: History of PEG tube -: Craniotomy -: Hip surgery -: Neck surgery Psychosocial/ Personal History: Patient lives with son. Patient receives home health. - Family History Mother -: Diabetes, Cancer Father -: Other (see notes) Notes: Dementia Sister -: Hypertension, Cancer - Social History Smoking Status: Never smoker Alcohol use: No CD- Drugs: No Caffeine use: No Place of Residence: Home Review of Systems is unable to be obtained Physical Examination - Physical Exam General: Alert HEENT: PERRLA, Other (secretions noted), EOMI, Sclerae nonicteric Neck: 2+ carotid pulse no bruit, No LAD, Without JVD or thyroid abnormality Respiratory: Clear to auscultation bilaterally Cardiovascular: Regular rate/rhythm, Normal S1 S2 Gastrointestinal: Normal bowel sounds, No tenderness Musculoskeletal: No tenderness Integumentary: No rashes Neurological: Normal tone, Abnormal speech - Studies Laboratory Data (last 24 hrs) 08/18/21 00:52: PT 11.7, INR 1.06, APTT 31.0 08/18/21 00:52: WBC 4.7, Hgb 13.6, Hct 40.9, Plt Count 139 L 08/18/21 00:52: Sodium 140, Potassium 4.1, BUN 24 H, Creatinine 1.90 H, Glucose 104, Magnesium 2.1 08/18/21 00:07: PT Cancelled, INR Cancelled, APTT Cancelled 08/18/21 00:07: WBC Cancelled, Hgb Cancelled, Hct Cancelled, Plt Count Cancelled 08/18/21 00:07: Sodium Cancelled, Potassium Cancelled, BUN Cancelled, Creatinine Cancelled, Glucose Cancelled, Magnesium Cancelled, Total Bilirubin Cancelled, AST Cancelled, ALT Cancelled, Alkaline Phosphatase Cancelled Assessment and Plan - Problems (Diagnosis) (1) CVA (cerebral vascular accident) Current Visit: Yes Status: Acute Qualifiers: CVA mechanism: unspecified Qualified Code(s): I63.9 - Cerebral infarction, unspecified (2) Acute kidney injury superimposed on CKD Current Visit: Yes Status: Acute (3) Type 2 diabetes mellitus Current Visit: Yes Status: Acute Qualifiers: Diabetes mellitus chcf insulin use: without chcf use Diabetes mellitus complication status: with kidney complications Diabetes mellitus complication detail: with chronic kidney disease 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 transplanted heart: [place] heart Associated angina: without angina Qualified Code(s): I25.10 - Atherosclerotic heart disease of [place] coronary artery without angina pectoris (5) HTN (hypertension) Current Visit: No Status: Chronic Qualifiers: Hypertension type: primary hypertension Qualified Code(s): I10 - Essential (primary) hypertension (6) Hypothyroid Current Visit: No Status: Chronic Qualifiers: Hypothyroidism type: acquired Qualified Code(s): E03.9 - Hypothyroidism, unspecified (7) TBI (traumatic brain injury) Current Visit: No Status: Chronic Qualifiers: Encounter type: sequela Loss of consciousness presence/duration: without LOC Qualified Code(s): S06.9X0S - Unspecified intracranial injury without loss of consciousness, sequela - Plan -Patient likely had CVA. Was not a TNKase candidate. received MA aspirin and IV folic acid in the ED. Will continue. Pending further recommendation from Dr. Carpio. NPO. Physical therapy and speech therapy ordered. Failed bedside swallow -CXR showed possible pneumonia. continue Zosyn. -Lipid and thyroid panel pending -q6h Accu-Cheks with mild sliding scale insulin -Gentle IV hydration -Continue home medications as appropriate -Heparin for VTE prophylaxis Discharge Plan: Other (rehabilitation) Plan to discharge in: Greater than 2 days - Advance Directives Does patient have a Living Will: No Does patient have a Durable POA for Healthcare: No - Code Status/Comfort Care Code Status Assessed: Yes (Full) Critical Care: No Time Spent Managing Pts Care (In Minutes): 70
[2021-08-18 06:15] LABS: Thyroid Stimulating Hormone 3.01 uIU/mL (0.360-3.740)
[2021-08-18] MEDS: INSULIN -REGULAR HUMAN 50 UNIT/0.5 ML ML SQ SCH ×4 (09:18→20:51)
[2021-08-18] MEDS ORDERED: ONDANSETRON 4 MG/2 ML VIAL IV PRN (09:18)
[2021-08-18] MEDS: HEPARIN 5000 UNIT/ML 1 ML VIAL SQ SCH ×2 (09:18→17:41)
[2021-08-18] MEDS ORDERED: ACETAMINOPHEN 650MG/RECT SUPP PR PRN (09:18)
[2021-08-18] MEDS: D5 0.45 NS 1,000 ML IV SCH (09:45)
[2021-08-18] MEDS ORDERED: HEPARIN 5000 UNIT/ML 1 ML VIAL ONE (09:46)
[2021-08-18] MEDS ORDERED: D5 0.45 NS 1,000 ML IV ONE (09:47)
--- NOTE | 2021-08-18 10:50 | EKG ---
Test Date: 2021-08-18 Test Time: 00:17:42 Mailer: MEASUREMENT RESULTS: Intervals: Rate: 60 SD: 244 QRSD: 80 QT: 414 QTc: 414 [place]: P: 21 SD: 244 QRS: 186 T: -55 INTERPRETIVE STATEMENTS: Sinus rhythm with 1st degree AV block Right superior axis deviation Low voltage QRS Inferior infarct, age undetermined Cannot rule out Anteroseptal infarct, age undetermined ST & T wave abnormality, consider lateral ischemia Abnormal ECG Compared to ECG 08/18/2021 00:17:02 Right superior axis now present ST (T wave) deviation now present Right-axis deviation no longer present T-wave abnormality no longer present Myocardial infarct finding still present Possible ischemia still present Electronically Signed On 08-18-21 10:49:19 CDT by Candido Dupont
--- NOTE | 2021-08-18 10:50 | EKG ---
Test Date: 2021-08-18 Test Time: 00:17:02 Advisory Services Associate: MEASUREMENT RESULTS: Intervals: Rate: 60 MT: 238 QRSD: 96 QT: 438 QTc: 438 [place]: P: 38 MT: 238 QRS: 170 T: -84 INTERPRETIVE STATEMENTS: Sinus rhythm with 1st degree AV block Right axis deviation Low voltage QRS Cannot rule out Anteroseptal infarct, age undetermined T wave abnormality, consider inferolateral ischemia Abnormal ECG Compared to ECG 05/28/2021 17:54:27 Right-axis deviation now present T-wave abnormality now present Possible ischemia now present Right superior axis no longer present Myocardial infarct finding still present Electronically Signed On 08-18-21 10:49:21 CDT by Candido Dupont
[2021-08-18] MEDS: FOLIC ACID 1 MG in NA CHLORIDE 0.9% 50 ML IV SCH (12:00)
[2021-08-18] MEDS: PIPER TAZO 3.375 GM in NA CHLORIDE 0.9% 100 ML IV SCH (15:33)
--- NOTE | 2021-08-18 18:31 | P.PN ---
Date of Service: 08/18/21 Patient seen and examined. He is aphasic. Head CT shows no acute. Patient symptoms suggest new stroke. Obtain MRI of the brain Neurology consult Dual platelet therapy High-dose statin PT, speech therapy evaluations.
--- NOTE | 2021-08-18 18:39 | RAD REPORT ---
EXAM DESCRIPTION: Ct Stroke Brain Wo Cont CLINICAL HISTORY: HX OF TIAs COMPARISON: CT head May 28, 2021 TECHNIQUE: Multiple helical axial tomographic images were obtained of the head without intravenous c ontrast. This exam was performed according to our departmental dose-optimization program, which inclu fahad automated exposure control, adjustment of the mA and/or kV according to patient size and/or use o f iterative reconstruction technique. FINDINGS: Generalized brain volume loss is demonstrated. Small, chronic appearing subdural fluid col lections adjacent to both frontal lobes are unchanged. Encephalomalacia changes in the left temporal lobe again noted with ex vacuo dilatation of the temporal horn of the left lateral ventricle. Small a katherine of encephalomalacia in the right frontal lobe again noted. Mild prominence of the lateral and thi rd ventricles is felt to be related to volume loss. There is hypoattenuation in the periventricular w bryant matter suggesting chronic microvascular ischemic changes. No midline shift. No obvious mass. Paranasal sinuses are clear. Mastoid air cells and middle ear spaces are clear. There are changes sug gestive of prior lens replacement. Left-sided craniotomy changes are again noted. Surrounding soft tissues are unremarkable. IMPRESSION: 1. No acute intracranial process. 2. Chronic appearing changes as above. THIS REPORT CONTAINS FINDINGS THAT MAY BE CRITICAL TO PATIENT CARE: The findings were verbally discus sed via telephone conference with Dr. Gutiérrez by Dr. Fitzgerald at 0039 hours central time on August 18, 2021. The results were acknowledged and understood. Electronically signed by: Steffen Fitzgerald MD 08/18/2021 12:39 AM CDT Due to temporary technical issues with the PACS/Fluency reporting system, reports are being signed by the in house radiologists without review as a courtesy to insure prompt reporting. The interpreting radiologist is fully responsible for the content of the report.
--- NOTE | 2021-08-18 20:00 | RAD REPORT ---
EXAM DESCRIPTION: Chest Single View CLINICAL HISTORY: 89 years Male, code stroke COMPARISON: Chest x-ray June 21, 2019 FINDINGS: Opacity in the left lower lobe retrocardiac region is present. No significant pleural effu jomar. No pneumothorax. Cardiac silhouette appears mildly enlarged. Aortic atherosclerosis is present. ACDF changes are present. Osseous structures demonstrate degenerative changes. IMPRESSION: Left basilar pulmonary opacity which could represent atelectasis or infiltrate. Electronically signed by: Steffen Fitzgerald MD 08/18/2021 3:21 AM CDT Due to temporary technical issues with the PACS/Fluency reporting system, reports are being signed by the in house radiologists without review as a courtesy to insure prompt reporting. The interpreting radiologist is fully responsible for the content of the report.
--- NOTE | 2021-08-19 00:20 | CON ---
Reason For Consultation: Consultation called because of possible stroke. History Of Present Illness: Mr. Schreiber is an 89-year-old right-handed patient with m ultiple prior strokes, left with dysplasia, dysarthria. He has traumatic brain injury and diabetes m ellitus type 2, who per his son was at baseline level of functioning until earlier today morning when he apparently became disoriented, had diffuse weakness, could not communicate. His son said over weekend he was able to ambulate, get out of his house, take care of his activities of daily living. He did ambulate with a walker. He was able to brush his teeth and do ordinary activities. His son states, however, after he was apparently attempting to brush his teeth, he became very disoriented, confused and could not follow any instructions and speak and had difficulty understanding what was sa id. He came to [facility] and had a head CT scan, which revealed no acute ischemic or hemor rhagic change. I did not get a CT angiogram of the head or neck because of poor kidney function. patient apparently had no focal weakness in terms of the arm or leg strength. He had diffuse weakn ess in the extremities. Since the time of onset of his symptoms could not be determined appropriatel y, the patient was never felt to be a candidate for tissue plasminogen activator. He did come into [facility] on the 17 of August and around 6 p.m. is when the event actually began and at [facility] he was seen about midnight, actually about 12:06 on the 3rd so that is more around 6 hours aft er onset of symptoms. He has blood work, which essentially showed a normal complete blood count with differential. Coagulation panel was normal with liver function studies normal. Creatinine increase d to 1.9. Procalcitonin negative at less than 0.05. Lactic acid normal at 0.8. Glucose ranged 83 t o 104. Electrolytes essentially unremarkable. His urinalysis showed a trace of esterase and 3+ bloo d. COVID testing was negative. His chest x-ray showed no acute cardiothoracic processes and electro cardiogram shows sinus rhythm with first-degree AV block and age undetermined inferior infarct. The patient did receive hydration and is on aspirin, he did receive 300 mg in the emergency room, fol ic acid 1 mg. Also received piperacillin tazobactam for presumed systemic infection, which was actua lly negative and he received Plavix in the emergency room at 75 mg. At this point, the patient has n ot improved his ability to communicate. He has significant difficulty getting his thoughts out and d ifficulty following simple commands, but eventually with encouragement he is able to show thumbs up a nd show 1 finger pointing. Past Medical History: Hypertension, hypothyroidism, transient ischemic attacks, stroke, coronary art laxmi disease, traumatic brain injury, and diabetes mellitus. Past Surgical History: PEG tube placement, craniotomy surgery, and neck surgery. Allergies: MEPERIDINE CAUSES HALLUCINATIONS. Medications: At home are Synthroid 75 mcg daily, aspirin 81 mg daily, Lasix 20 mg daily, oxcarbazepi ne 150 mg twice daily, Protonix 40 mg daily, Lipitor 40 mg at bedtime, and melatonin 5 mg at bedtime. Family History: Positive for diabetes and cancer in mother. Hypertension and cancer in sister. Social History: No alcohol, tobacco, or IV drug use. The patient's son and grandson are involved in his care and have close observation of him at home. Review of Systems: His son reports no recent fevers, chills, nausea, vomiting, myalgias, arthralgias. No recent rash, h eadache, change in psychiatric issues or genitourinary issues. Physical Examination: Vital Signs: Blood pressure 150/88, pulse 68, respiratory rate 16, temperature 97.7, oxygen saturati on 98% on room air. General: Mr. Schreiber is resting and is comfortable in bed. He is in no significant distress. HEENT: He appears normocephalic, atraumatic. He has very poor dentition. Sclerae anicteric. Oroph arynx is moist. Neck: Supple. Chest: Clear. Heart: Regular. Extremities: Show no significant edema, cyanosis, or clubbing. Neurological: He does alert to his name, turns and follows and tracks well with his head, but not fo llowing simple instructions unless there is repeated encouragement such as to show a thumbs up sign o r point. Eventually, he was able to do that. He did move both upper extremities and lower extremiti es equally well. He was able to lift briefly both off the bed, but on both sides, the arms and legs did drop back. Unable to fully assess sensation, coordination, and gait. Reflexes are symmetric and depressed. Assessment: Mr. Schreiber is an 89-year-old patient with new onset expressive aphasia and diffuse weakne ss. He has renal insufficiency, possibly related to dehydration. He has multiple comorbid condition s including diabetes mellitus, hypertension, hyperthyroidism, and treated for possible urinary tract infection. He does not have any evidence of a systemic infection or pneumonia. Head CT scan showed no acute ischemic or hemorrhagic change. Plan: 1.Brain MRI without contrast. 2.I referred to inpatient rehabilitation to help with his debility and diffuse weakness along with S peech Therapy with his expressive and receptive aphasia. 3.Continue folic acid, statin, aspirin 81 mg, Plavix 75 mg daily. 4.Management of diabetes and hypertension as indicated. NARINDER/MARIBEL Voice ID: [id number] Report ID: [id number]
[2021-08-19] MEDS: PIPER TAZO 3.375 GM in NA CHLORIDE 0.9% 100 ML IV SCH ×2 (01:32→14:59)
[2021-08-19] MEDS: HEPARIN 5000 UNIT/ML 1 ML VIAL SQ SCH ×3 (01:32→17:04)
[2021-08-19] MEDS: D5 0.45 NS 1,000 ML IV SCH (05:52)
[2021-08-19] MEDS: INSULIN -REGULAR HUMAN 50 UNIT/0.5 ML ML SQ SCH ×4 (07:30→21:00)
[2021-08-19 08:13] LABS: Absolute Lymphocytes (CBC) 1.1 K/uL (0.7-4.9); Lymphocytes % 15.5 % (15.3-44.8); MPV 9.2 fL (7.6-11.3); RBC Red Blood Cell Count 4.28 M/uL (4.33-5.43)
[2021-08-19] MEDS ORDERED: ASPIRIN 600 MG/SUPP PR SCH (09:00)
[2021-08-19] MEDS: ASPIRIN 300 MG/SUPP PR SCH (09:00)
[2021-08-19] MEDS: FOLIC ACID 1 MG in NA CHLORIDE 0.9% 50 ML IV SCH (09:08)
[2021-08-19 09:23] LABS: Magnesium 1.9 mg/dL (1.8-2.4); Phosphorus 2.3 mg/dL (2.5-4.9); Potassium 4.1 mmol/L (3.5-5.1)
--- NOTE | 2021-08-19 11:54 | RAD REPORT ---
EXAM DESCRIPTION: MRI - Brain Wo Cont - 08/19/2021 11:06 am CLINICAL HISTORY: Rule out stroke COMPARISON: Brain W/Wo Cont dated 05/29/2021; Ct Stroke Brain Wo Cont dated 08/18/2021 TECHNIQUE: Sagittal T1-weighted images were obtained along with axial PD, heavily T2-weighted and T2 -FLAIR images. Axial DWI and ADC mapping sequences were also obtained along with coronal heavily T2-w eighted images. FINDINGS: No intracranial hemorrhage, mass or acute infarction identifiable. Artifact from the left- side craniotomy obscures portions of the left temporal lobe and left middle cranial fossa. Encephalom alacia/gliosis changes in the left temporal lobe region noted. There is no localized mass effect or e fátima. An acute process in this region is not likely. Patient has underlying moderate atrophy with sca ttered areas of old ischemic insult in the cerebral hemispheres from cortical to periventricular in l ocation. 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 These ar e not regarded as suspicious. There is no edema or shift of midline structures. Signal voids are seen as a normal finding in the ma yennifer intracranial vessels. No globe or orbital content abnormality. Mastoid air cells and paranasal sinuses are clear. IMPRESSION: No acute infarction changes are identified. Evaluation of the brain parenchyma adjacent to the left temporal lobe gliosis/encephalomalacia is limited due to the craniotomy hardware artifact . The above detailed findings are all felt to be chronic. No acute intracranial process identifiable.
--- NOTE | 2021-08-19 14:00 | P.PN ---
Subjective Date of Service: 08/19/21 Chief Complaint: CVA No new complaint. Speech is still slurred. Physical Examination - Vital Signs Temperature: 97.2 F Blood Pressure: 147/77 Pulse: 54 Respirations: 14 Pulse Ox (%): 97 Assessment And Plan - Current Problems (Diagnosis) (1) CVA (cerebral vascular accident) Current Visit: Yes Status: Acute Qualifiers: CVA mechanism: unspecified Qualified Code(s): I63.9 - Cerebral infarction, unspecified (2) Type 2 diabetes mellitus Current Visit: Yes Status: Acute Qualifiers: Diabetes mellitus senior living insulin use: without termite treater helper use Diabetes mellitus complication status: with kidney complications Diabetes mellitus complication detail: with chronic kidney disease 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 transplanted heart: [place] heart Associated angina: without angina Qualified Code(s): I25.10 - Atherosclerotic heart disease of [place] coronary artery without angina pectoris (4) HTN (hypertension) Current Visit: No Status: Chronic Qualifiers: Hypertension type: primary hypertension Qualified Code(s): I10 - Essential (primary) hypertension (5) Hypothyroid Current Visit: No Status: Chronic Qualifiers: Hypothyroidism type: acquired Qualified Code(s): E03.9 - Hypothyroidism, unspecified (6) History of seizure disorder Current Visit: Yes Status: Acute (7) UTI (urinary tract infection) Current Visit: Yes Status: Acute - Plan Physical Exam General: Alert HEENT: PERRLA, Other (secretions noted), EOMI, Sclerae nonicteric Neck: 2+ carotid pulse no bruit, No LAD, Without JVD or thyroid abnormality Respiratory: Clear to auscultation bilaterally Cardiovascular: Regular rate/rhythm, Normal S1 S2 Gastrointestinal: Normal bowel sounds, No tenderness Musculoskeletal: No tenderness Integumentary: No rashes Neurological: Normal tone, Abnormal speech Plan: Brain MRI shows no acute CVA. Patient with a history of seizure disorder. Neurology input appreciated. Continue aspirin, statins. PT and OT. Speech evaluation. Neurology recommending inpatient rehab. UA suggesting UTI, urine culture growing gram-negative rods. Continue IV Zosyn and follow cultures.
[2021-08-19] MEDS ORDERED: ATORVASTATIN 40 MG TAB PO SCH (21:00)
[2021-08-19] MEDS: OXcarbazepine 150 MG TAB PO SCH (21:49)
[2021-08-19 23:58] VITALS: O2SAT 98
[2021-08-20] MEDS: PIPER TAZO 3.375 GM in NA CHLORIDE 0.9% 100 ML IV SCH (01:37)
[2021-08-20] MEDS: HEPARIN 5000 UNIT/ML 1 ML VIAL SQ SCH ×3 (01:37→17:45)
[2021-08-20] MEDS ORDERED: LEVOTHYROXINE SOD 0.075 MG TAB PO SCH (06:30)
[2021-08-20] MEDS: INSULIN -REGULAR HUMAN 50 UNIT/0.5 ML ML SQ SCH ×3 (07:30→16:30)
[2021-08-20] MEDS ORDERED: FUROSEMIDE 20 MG TABLET PO SCH (09:00)
[2021-08-20] MEDS: ASPIRIN 300 MG/SUPP PR SCH (09:00)
[2021-08-20 09:45] LABS: Absolute Lymphocytes (CBC) 1.4 K/uL (0.7-4.9); Hematocrit 37.9 % (39.6-49.0); Lymphocytes % 30.9 % (15.3-44.8); MPV 8.7 fL (7.6-11.3); RBC Red Blood Cell Count 4.16 M/uL (4.33-5.43)
[2021-08-20 09:54] LABS: Phosphorus 2.5 mg/dL (2.5-4.9); Potassium 4.3 mmol/L (3.5-5.1)
[2021-08-20] MEDS: OXcarbazepine 150 MG TAB PO SCH (10:40)
[2021-08-20] MEDS: FOLIC ACID 1 MG in NA CHLORIDE 0.9% 50 ML IV SCH (10:44)
[2021-08-20 13:28] VITALS: BP 108/76; TEMP 97.4
--- NOTE | 2021-08-20 14:05 | P.CNS ---
Date of Consult: 08/20/21 Chief Complaint: CVA History of Present Illness: The patient is an 89-year-old male with a past medical history of multiple TIAs, TBI with resulting dysphagia/aphasia, type II but diabetes not insulin- dependent, and hypothyroidism who presented to the ED via EMS secondary to altered mental status, confusion, and worsening dysphagia/aphasia. Per son, patient was going about his normal daily activities and was shaving and then within seconds he started to act disoriented and had diffuse weakness. In ED CT head did not show any acute findings. CT head/neck angio could not be performed secondary to patient's MARY. Blood cultures obtained on 08/18 showed no growth, urine culture growing Pseudomonas. Patient was empirically started on Zosyn on 08/18 however was discontinued on 08/20 secondary to Pseudomonas resistance. Patient has thus been started on meropenem. We recommend continuing this for 10 days. ROS unable to obtain. Allergies meperidine HCl [From Demerol] Allergy (Verified 09/10/20 23:35) hallucinations Home Medications: Levothyroxine [Synthroid*] 0.75 tab PO DAILY 06/19/19 Aspirin [Valentín Chewable Aspirin] 1 tab PO DAILY 09/08/20 Furosemide [Lasix*] 20 mg PO DAILY 09/08/20 OXcarbazepine [Oxcarbazepine] 150 mg PO BID 09/08/20 Atorvastatin Calcium [Lipitor] 40 mg PO BEDTIME tab 09/12/20 - Past Medical/Surgical History Diabetic: Yes -: Hypertension -: Hypothyroidism -: Chronic diastolic CHF -: CAD -: History of subdural hematomas -: Chronic hyponatremia -: History of traumatic brain injury with speech dysfunction -: Type 2 Diabetes -: TIA x 2 -: Stroke 2020 -: History of PEG tube -: Craniotomy -: Hip surgery -: Neck surgery Psychosocial/ Personal History: Patient lives with son. Patient receives home health. - Family History Mother Medical History: Diabetes, Cancer Father Medical History: Other (see notes) Notes: Dementia Sister Medical History: Hypertension, Cancer - Social History Smoking Status: Unknown if ever smoked Alcohol use: No CD- Drugs: No Caffeine use: No Place of Residence: Home Review of Systems is unable to be obtained Physical Examination Temp Pulse Resp BP Pulse Ox 97.4 F 55 15 108/76 98 08/20/21 12:00 08/20/21 12:00 08/20/21 12:00 08/20/21 12:00 08/20/21 12:00 General: In no apparent distress HEENT: Atraumatic Neck: 2+ carotid pulse no bruit Respiratory: Clear to auscultation bilaterally, Normal air movement Cardiovascular: No edema, Regular rate/rhythm Capillary refill: <2 Seconds Gastrointestinal: Normal bowel sounds, Soft and benign Musculoskeletal: No clubbing, No swelling, No contractures Conclusions/Impression: Antibiotics: Meropenem: 5current Zosyn: Assessment/plan Urinary tract infection urine culture growing Pseudomonas -Based off susceptibility recommend treating with IV meropenem x10 days CT abdomen pelvis without contrast pending -Patient does have a history of seizures, currently on Keppra. Continue to monitor very closely while patient is on meropenem. Possible pneumonia Chest x-ray showed light left basilar pulmonary opacity: Atelectasis versus infiltrate. If it is in fact pneumonia meropenem should cover majority of organisms. -Patient denies cough or any other pulmonary symptoms Possible acute stroke/TIA Patient came in with signs concerning for stroke however CT head was normal. CT angio however cannot be performed secondary to patient's MARY. Continue recs per neurology Anemia Continue to monitor H&H MARY on CKD Continue to monitor. Renally dose all antibiotics. Plan of care discussed with Dr. Rain Thank you for consultation
--- NOTE | 2021-08-20 16:27 | P.PN ---
Subjective Date of Service: 08/20/21 Chief Complaint: CVA Patient with emotional lability. He was crying during my assessment this morning Speech is still slurred. Urine culture is growing Pseudomonas. Physical Examination - Vital Signs Temperature: 97.4 F Blood Pressure: 108/76 Pulse: 55 Respirations: 15 Pulse Ox (%): 98 - Studies Microbiology Data (last 24 hrs): 08/18/21 02:33 Clean Catch Urine Bland Count - Final >100,000 CFU/ML. 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 transplanted heart: [place] heart Associated angina: without angina Qualified Code(s): I25.10 - Atherosclerotic heart disease of [place] coronary artery without angina pectoris (4) HTN (hypertension) Current Visit: No Status: Chronic Qualifiers: Hypertension type: primary hypertension Qualified Code(s): I10 - Essential (primary) hypertension (5) Hypothyroid Current Visit: No Status: Chronic Qualifiers: Hypothyroidism type: acquired Qualified Code(s): E03.9 - Hypothyroidism, unspecified (6) History of seizure disorder Current Visit: Yes Status: Acute (7) UTI (urinary tract infection) Current Visit: Yes Status: Acute - Plan Physical Exam General: Awake, confused HEENT: PERRLA, EOMI, Sclerae nonicteric Neck: , Without JVD Respiratory: Clear to auscultation bilaterally Cardiovascular: Regular rate/rhythm, Normal S1 S2 Gastrointestinal: Normal bowel sounds, No tenderness Musculoskeletal: No tenderness Integumentary: No rashes Neurological: Normal tone, Abnormal speech Plan: Brain MRI shows no acute CVA. Patient with a history of seizure disorder. Patient's labs extremity weakness and dysarthria have very much worsened. This is likely due to new CVA. MRI of the brain did not detect an acute infarct. Performance status have declined rapidly. Neurology input appreciated. Continue aspirin, statins. PT and OT. Speech evaluation. Neurology recommending inpatient rehab. Patient is appropriate for inpatient rehab given left-sided weakness which is much worse. UA suggesting UTI, urine culture growing Pseudomonas Seen by infectious disease and antibiotics changed to IV meropenem based on sensitivity.
--- NOTE | 2021-08-20 16:48 | P.DS ---
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 transplanted heart: [place] heart Associated angina: without angina Qualified Code(s): I25.10 - Atherosclerotic heart disease of [place] coronary artery without angina pectoris (4) HTN (hypertension) Current Visit: No Status: Chronic Qualifiers: Hypertension type: primary hypertension Qualified Code(s): I10 - Essential (primary) hypertension (5) Hypothyroid Current Visit: No Status: Chronic Qualifiers: Hypothyroidism type: acquired Qualified Code(s): E03.9 - Hypothyroidism, un specified (6) History of seizure disorder Current Visit: Yes Status: Acute (7) UTI (urinary tract infection) Current Visit: Yes Status: Acute Brief History of Present Illness: Patient is an 89-year-old male with past medical history of multiple TIAs, TBI with resulting dysphagia/aphasia, type 2 diabetes cni-jtynlvx-xjiiquizd, hypothyroidism who presented to the ED via EMS with worsening dysphagia and aphasia. Per patient's son, patient was behaving appropriately until around 6 PM when he started having difficulty walking and speaking. Patient's son states that this has happened in the past with his TIAs and it usually resolves within an hour or so. However, when it did not improve he called EMS. In the ED, CT head did not show any acute findings. CT head/neck angio could not be completed due to patient's kidney function. He was given Zosyn, rectal aspirin, and IV folic acid. Upon my assessment, patient is alert and can respond to questions nonverbally (although he does attempt to verbalize answers). He denies chest pain or shortness of breath. Attempt was made to transfer but declined. Dr. Carpio was notified and wishes to admit patient for further evaluation and management. Hospital Course: Admitted to the medical floor, treated with aspirin and Lipitor. MRI of the brain did not show any acute patient with worsening left-sided weakness and worsening dysarthria indicating new acute CVA. She was seen by neurology-Dr. Carpio who confirmed new stroke symptoms. Dr. Carpio recommend inpatient rehab. His urine analysis suggested UTI. Urine culture grew Pseudomonas resistant to multiple antibiotics. Seen by infectious disease and patient started on IV meropenem. Patient seen by PT. Patient currently needing assistance for transfer. He has been accepted to inpatient rehab. ID recommending 10 days of IV meropenem. This will be continued during inpatient rehab. Vital Signs/Physical Exam: Temp Pulse Resp BP Pulse Ox 97.4 F 55 15 108/76 98 08/20/21 16:27 08/20/21 16:27 08/20/21 16:27 08/20/21 16:27 08/20/21 16:27 General: In no apparent distress, Confused, Other HEENT: Mucous membr. moist/pink Neck: Supple Respiratory: Clear to auscultation bilaterally, Normal air movement Cardiovascular: Regular rate/rhythm, Normal S1 S2 Gastrointestinal: Soft and benign, Non-distended, No tenderness Musculoskeletal: No swelling Integumentary: No rashes, No cyanosis Neurological: Other (Left-sided weakness) Laboratory Data at Discharge: WBC 4.7 K/uL (4.3-10.9) D 08/20/21 09:30 Hgb 12.9 g/dL (13.6-17.9) L 08/20/21 09:30 Hct 37.9 % (39.6-49.0) L 08/20/21 09:30 Plt Count 122 K/uL (152-406) L 08/20/21 09:30 PT 11.7 SECONDS (9.5-12.5) 08/18/21 00:52 INR 1.06 08/18/21 00:52 APTT 31.0 SECONDS (24.3-36.9) 08/18/21 00:52 Sodium 142 mmol/L (136-145) 08/20/21 09:30 Potassium 4.3 mmol/L (3.5-5.1) 08/20/21 09:30 BUN 16 mg/dL (7-18) 08/20/21 09:30 Creatinine 1.42 mg/dL (0.55-1.3) H 08/20/21 09:30 Glucose 92 mg/dL (74-106) 08/20/21 09:30 Phosphorus 2.5 mg/dL (2.5-4.9) 08/20/21 09:30 Magnesium 2.0 mg/dL (1.8-2.4) 08/20/21 09:30 Total Bilirubin Cancelled 08/18/21 00:07 AST Cancelled 08/18/21 00:07 ALT Cancelled 08/18/21 00:07 Alkaline Phosphatase Cancelled 08/18/21 00:07 Triglycerides 45 mg/dL (<150) 08/18/21 10:30 Cholesterol 106 mg/dL (<200) 08/18/21 10:30 HDL Cholesterol 46 mg/dL (40-60) 08/18/21 10:30 Cholesterol/HDL Ratio 2.30 08/18/21 10:30 Home Medications: Levothyroxine [Synthroid*] 0.75 tab PO DAILY 06/19/19 Aspirin [Valentín Chewable Aspirin] 1 tab PO DAILY 09/08/20 Furosemide [Lasix*] 20 mg PO DAILY 09/08/20 OXcarbazepine [Oxcarbazepine] 150 mg PO BID 09/08/20 Atorvastatin Calcium [Lipitor] 40 mg PO BEDTIME tab 09/12/20 Aspirin 300 mg [place] DAILY supp 08/20/21 levETIRAcetam [Keppra*] 250 mg PO BID tab 08/20/21 Diet: ADA Activity: Fall precautions Followup: Unknown,U [Primary Care Provider] - Time spent managing pt's care (in minutes): 35
--- NOTE | 2021-08-20 18:30 | RAD REPORT ---
EXAM DESCRIPTION: CTAbdomen Wo Contrast - 08/20/2021 2:25 pm CLINICAL HISTORY: r/u pyelo COMPARISON: No comparisons TECHNIQUE: CT of the abdomen was performed. All CT scans are performed using dose optimization technique as appropriate and may include automated exposure control or mA/KV adjustment according to patient size. FINDINGS: Lower chest: Cardiomegaly. Multi-vessel coronary artery disease. 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 . Moderate hiatal hernia. Liver: No acute abnormality or suspicious lesions. Biliary: No biliary ductal dilatation. Stomach: No significant focal abnormality. Duodenum: No significant focal abnormality. Pancreas: No significant abnormality. Spleen: No significant abnormality. Adrenal: Right adrenal lesion is consistent with a benign process such as a adenoma or myelolipoma. T here is some limitation due to motion. Kidney/ureter: No hydronephrosis. No renal calculi. 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 Retroperitoneum: No retroperitoneal adenopathy. Vascular: No aneurysm. Atherosclerosis. Bowel: No significant focal abnormality. Peritoneum: No ascites or free air. Bones: Probably remote L1 compression fracture. Multilevel degenerative changes are present in the sp ine. Other: n/a IMPRESSION: No acute findings within the abdomen identified. No contrast was administered however th ere are no secondary signs to suggest the presence of pyelonephritis. No hydronephrosis.
[2021-08-20] MEDS ORDERED: Meropenem 1,000 MG in NA CHLORIDE 0.9% 100 ML IV SCH (21:00)
[2021-08-20] MEDS ORDERED: levETIRAcetam 500 MG TAB PO SCH (21:00)
== END 2021-08-20 18:07 | DRG 64 ==
LOC: ER 00:03 → ERHOLD 02:51 → 4TH 10:58 → 2ND 08-19 18:11
PROVIDERS: ADMIT Internal Medicine; ATTEND Internal Medicine
DX: I63.9 Cerebral infarction, unspecified (principal); J18.9 Pneumonia, unspecified organism; N39.0 Urinary tract infection, site not specified; N17.9 Acute kidney failure, unspecified; I13.0 Hypertensive heart and chronic kidney disease with heart failure and stage 1 through stage 4 chronic kidney disease, or unspecified chronic kidney disease; I50.32 Chronic diastolic (congestive) heart failure; E87.1 Hypo-osmolality and hyponatremia; G81.94 Hemiplegia, unspecified affecting left nondominant side; N18.32 Chronic kidney disease, stage 3b; E11.22 Type 2 diabetes mellitus with diabetic chronic kidney disease; E11.65 Type 2 diabetes mellitus with hyperglycemia; R47.1 Dysarthria and anarthria; R47.01 Aphasia; E86.0 Dehydration; S06.9X0S Unspecified intracranial injury without loss of consciousness, sequela; I25.10 Atherosclerotic heart disease of native coronary artery without angina pectoris; E03.9 Hypothyroidism, unspecified; G40.909 Epilepsy, unspecified, not intractable, without status epilepticus; B96.5 Pseudomonas (aeruginosa) (mallei) (pseudomallei) as the cause of diseases classified elsewhere; D64.9 Anemia, unspecified; I44.0 Atrioventricular block, first degree; R29.709 NIHSS score 9; Z86.73 Personal history of transient ischemic attack (TIA), and cerebral infarction without residual deficits; Z79.82 Long term (current) use of aspirin; Z79.899 Other long term (current) drug therapy; Z88.5 Allergy status to narcotic agent; Z20.822 Contact with and (suspected) exposure to COVID-19; Z83.3 Family history of diabetes mellitus; Z80.9 Family history of malignant neoplasm, unspecified
CPT/HCPCS: 0240U; 36415; 51702; 70450; 70551; 71045; 74150; 80048; 80061; 81003; 82947; 83605; 83735; 83880; 84100; 84145; 84443; 84484; 85025; 85610; 85730; 87040; 87077; 87086; 87088; 87186; 92610; 93005; 96365; 97110; 97112; 97161; 97530; 99285; J1644; J2185; J2543; J7030; J7799

== ENCOUNTER 2021-08-20 12:22 | Inpatient (IN) | payer OTHER ==
--- NOTE | 2021-08-20 16:16 | R.PREADM ---
PRE-ADMISSION SCREENING FORM SCREENING DATE AND TIME 08/20/2021 12:30 (CDT) ANTICIPATED REHAB ADMISSION DATE 08/22/2021 REFERRING FACILITY [facility] REFERRAL DATE AND TIME 08/20/2021 12:31 (CDT) REFERRAL ROOM# 220/A ACUTE ADMIT DATE 08/18/2021 Previous Rehabilitation(s): No. ACUTE ROTARY DRUM TANNER/DC FORMULA WEIGHER Vicki Schroeder ATTENDING PHYSICIAN Beto Potts REFERRING PHYSICIAN Beto Potts REHAB FACILITY [facility] CLINICAL LIAISON Filomena Rojas PHYSICIAN REVIEWER Dr. Bimal Carpio M.D. MR# [id number] NAME BETO MONTANA ADDRESS [address] [place] [address] PHONE [facility] [id number] DATE OF 1930 AGE 89 SSN# [id number] GENDER male MARITAL STATUS RACE black ADMIT FROM 02 - [facility] PRE-HOSPITAL LIVING SETTING 01 - Home (private home/apt. board/care, assisted living, penitentiary, transitional living) HOME TYPE AND DETAILS Type of home: single family house # of levels in the residence: 2 # of steps within the residence: # of steps to enter the residence: 0 PRE-HOSPITAL LIVING WITH Family/Relatives FAMILY SUPPORT Yes PRIMARY FAMILY CONTACT NAME LAZARO MONTANA JR PRIMARY FAMILY CONTACT PHONE PRIMARY FAMILY CONTACT RELATIONSHIP Son PHONE PRIMARY FAMILY CONTACT ON ADM.? no IS PRIMARY FAMILY CONTACT AUTH. REP.? no 1ST EMERGENCY CONTACT LAZARO MONTANA 1ST CONTACT PHONE 1ST CONTACT RELATIONSHIP Son PHONE 1ST CONTACT ON ADM. no IS 1ST CONTACT AUTH. REP.? no PHONE 2ND CONTACT ON ADM.? no PATIENT EMPLOYMENT STATUS Retired (for age) PATIENT EMPLOYER No Employer PAYOR INFORMATION: 1ST PAYOR NAME MEDICARE 1ST PAYOR PHONE 1ST PAYOR INJURY/ILLNESS DUE TO ACCIDENT? No ANOTHER CONSTITUTION PARTY RESPONSIBLE? No PRIMARY REHAB/ACUTE DIAGNOSIS: CVA ONSET DATE 08/18/2021 REHAB IMPAIRMENT CATEGORY (ADEOLA): 01 Stroke (STR) MEETS 60% rule AFFECTED EXTREMITIES: LLE, and LUE PRIMARY DIAGNOSIS-RELATED SURGERIES: CRANIOTOMY INTERVENTIONS: - CVA Provide aggressive PT, OT, and Speech therapy to improve pt functionality Regularly assess Neuro status - CKD Assess and monitor v/s Monitor blood glucose Administer medications are prescribed - Type 2 Diabetes Monitor blood glucose and effectiveness of medications/Insulin Promote proper diet - CAD Assess and monitor pt v/s Administer prescribed medications Assess O2 saturation and provide supplemental oxygen ifwarrented Educate pt on stress managment Daily weights - Hypertension Administer medications indicated by physician and monitor for effectiveness. Monitor patient B/P regularly Increase physical activity Provide comfort measures - Hypothyroidism Daily weights Promote proper diet - TBI Monitor pt respiratory status Elevate HOB and monitor for aspiration Reposition pt q2h Regularly assess Neuro status - UTI Current UTI will be managed with IV antibiotics as indicated by physician Monitoring urinary Output RISK FOR COMPLICATIONS: - Aspiration Monitor for overt s/s of aspiration - DVT Active and Passive ROM exercises Elevate BLE Assist patient with frequent position changes - Skin Breakdown Encourage ambulation as tolerated Repositioning q 2 hours Use of pillows or foam wedges while in bed - Pain Administer prescribed pain medication as needed Anticipate the need for pain medication for optimal pain managment Assist patient with frequent position changes at least every 2 hours Education patient on relaxation and deep breathing techniques - Falls Assess for medication side effects Maintain call light within patient reach for easy access to nursing assistance Provide assistance getting out of bed and with ambulation Provide assistive devices - Stroke Monitor and maintain patient pain level Monitor patient blood pressure - UTI Monitor for frequency, burning, discomfort, or incontinence Medical management of current UTI - Sepsis Patient is currently positive for Pseudomonas Aeruginosa in his urine Patient will be receiving IV antibiotics for this infection. Monitor for signs and symptoms of sepsis. SUMMARY OF ACUTE HOSPITALIZATION: On 08/18/2021 Pt. presented to [facility] with sudden onset of left-side weakness. Pt. is a 89 yo black male. On 08/18/2021 he was admitted to [facility] with diagnosis CVA. His impairment category is Stroke 01 - Left Body (Right Brain) (01.1). Pre-morbidly, Pt. was independent/mod-I in Locomotion, Self-Care, and Communication; and he had good Safety Awareness, Social Cognition, Balance, Transfers Control, and Endurance. Currently, he has deficits of Locomotion, Safety Awareness, Social Cognition, Balance, Transfers Cont rol, Sphincter Control, Communication, Endurance, and Self-Care. Pt. is now referred to [facility] for acute in-patient rehabilitation in order to maximize patient's functional independence in activities of daily living, strength, ROM, and mobi lity. Patient has realistic goal of being discharged at assistance level 4-Peace to reside at Home with Fam phillip/Relatives. PAST MEDICAL HISTORY Type 2 diabetes mellitus (E11) Cerebral infarction, unspecified (I63.9) Chronic kidney disease (CKD) (N18) coronary artery disease (CAD) Hypertension Hypothyroidism, unspecified (E03.9) Traumatic brain injury PAST SURGICAL HISTORY: Craniotomy Hx of PEG tube placement Hip Surgery Neck Surgery MEDICATION ALLERGIES: No Known Drug Allergies (NKDA) ENVIRONMENTAL ALLERGIES: - Substance Allergies None Known - Other Allergies None Known CODE STATUS: Full code WEIGHT/HEIGHT/BMI: WEIGHT 163 lbs HEIGHT 5' 0" BMI 31.8 DIET: - Diet Type Regular - Diet - Solid Texture Pureed - Diet - Liquid Texture Honey-Thickened - Tube Feed N/A none REVIEW OF SYSTEMS: - Gen Alert and awake Lying in bed No apparent distress Oriented to: person, time, and place - Vital Signs Temperature: 97.3 F SBP/DBP: 158/77 Pulse: 52 Resp: 14 Vital signs stable, afebrile - CVS RRR VITAL SIGNS Temperature: 97.3 F SBP/DBP: 158/77 Pulse: 52 Resp: 14 Vital signs stable, afebrile MEDICATIONS/TREATMENT: Other- See attached MAR (Medication Administration Record). CURRENT SPHINCTER CONTROL: Pre-hospital bladder status: unspecified # of bladder accidents in the last 7 days prior to screenin Pre-hospital bowel status: unspecified # of bowel accidents in the last 7 days prior to screenin Last Bowel Movement Date: 08/20/2021 CURRENT LOCOMOTION STATUS: distance walked 0 feet DETAILED CURRENT FUNCTIONAL STATUS: - Bladder accident frequency: 7-Ind - No accidents in the past 7 days - Bowel accident frequency: 7-Ind - No accidents in the past 7 days - Walking score based on distance walked: 0(N/A) - Wheelchair score based on distance traveled: 0(N/A) QI SCORES: - Self-Care A. Eating 03-Partial/moderate assistance B. Oral hygiene 03-Partial/moderate assistance C. Toileting hygiene 03-Partial/moderate assistance E. Shower/bathe self 03-Partial/moderate assistance F. Upper body dressing 03-Partial/moderate assistance G. Lower body dressing 02-Substantial/maximal assistance H. Putting on/taking off footwear 02-Substantial/maximal assistance - Mobility A. Roll left and right 02-Substantial/maximal assistance B. Sit to lying 02-Substantial/maximal assistance C. Lying to sitting on side of bed 02-Substantial/maximal assistance D. Sit to stand 88-Not attempted due to medical condition or safety concerns E. Chair/jji-ok-ixbvw transfer 88-Not attempted due to medical condition or safety concerns F. Toilet transfer 88-Not attempted due to medical condition or safety concerns G. Car transfer 88-Not attempted due to medical condition or safety concerns I. Walk 10 feet 88-Not attempted due to medical condition or safety concerns J. Walk 50 feet with two turns 88-Not attempted due to medical condition or safety concerns K. Walk 150 feet 88-Not attempted due to medical condition or safety concerns L. Walking 10 feet on uneven surfaces 88-Not attempted due to medical condition or safety concerns M. 1 step (curb) 88-Not attempted due to medical condition or safety concerns N. 4 steps 88-Not attempted due to medical condition or safety concerns O. 12 steps 88-Not attempted due to medical condition or safety concerns P. Picking up object 88-Not attempted due to medical condition or safety concerns R. Wheel 50 feet with two turns S. Wheel 150 feet - Bladder and Bowel Bladder continence 3-Incontinent daily Bowel continence 2-Frequently incontinent - Endurance Poor - Balance Poor - Safety Awareness Poor CURRENT FUNC. DEFICITS: Self-Care, Mobility, Endurance, Balance, and Safety Awareness CURRENT / PREVIOUS ASSISTIVE DEVICES: Rolling Walker HISTORY OF FALLS. HAS THE PATIENT HAD TWO OR MORE FALLS IN THE PAST YEAR OR ANY FALL WITH INJURY IN T HE PAST YEAR?: No PRIOR SURGERY. DID THE PATIENT HAVE MAJOR SURGERY DURING THE 100 DAYS PRIOR TO ADMISSION?: No THERAPY NOTES FROM ACUTE CARE: Attached. SPECIAL NEEDS: - Safety Concerns Skin breakdown, Aspiration, and Fall precautions needed due to skin breakdown risk, Poor balance, Ris k of injury, High fall risk, and Dysphagia - Aspiration Concerns Precautionsneeded to avoid aspiration related infections - Fall Precautions Due to poor balance PRECAUTIONS: - Fall Precaution Bed alarm TABS alarm Wheel chair alarm - Incontinence Bowel Incontinence - DVT Risk due to restricted mobility and age - Skin Breakdown Risk due to restricted mobility and age - Cardiac Precaution Monitor blood pressure, heart rate, lower extremity edema, notify MD for shortness of breath or chest pain Monitor patient for excessive elevation of heart rate and blood pressure during therapy Nursing and Therapy to monitor pt before and after therapy sessions for signs of Chest pain - Aspiration Precaution No straws Seated at 90 degrees while eating and 30 minutes after meals PATIENT NEEDS ACTIVE AND ONGOING THERAPEUTIC INTERVENTION OF MULTIPLE THERAPY DISCIPLINES, INCLUDING: - Dietary and Nutrition Adequate Nutrition. Nutritional Education. Nutritional Supplements. - Occupational Therapy Cognitive Retraining. Patient needs Occupational Therapy for a daily minimum of 1.5 hours at least 5 out of 7 days, to improve Activities of Daily Living, including: Eating, Grooming, Bathing, Dressing, Toileting, Toilet Transfers, Community Reintegration, Higher functional activities, Adaptive Equipme nt, Splinting, Household Tasks, and Other activities as determined. Visual Perceptual Training. - Speech Therapy Cognitive Training. Dysphagia Therapy. Expressive Language Skills. Memory Strategies. Patient needs S peech Therapy for a daily minimum of 1.5 hours at least 5 out of 7 days, to improve: Swallowing, Cogn ition, Language Skills, and Compensatory Strategies. Receptive Language Skills. Speech Intelligibilit y Training. - Physical Therapy Patient needs Physical Therapy for a daily minimum of 1.5 hours at least 5 out of 7 days, to improve: Mobility, Strengthening, Transfers, Stretching, ROM, Endurance, Ability to manage stairs, Gait, and Balance. Safety Awareness. PATIENT NEEDS CLOSE MEDICAL SUPERVISION BY A REHABILITATION PHYSICIAN FOR: Coordination of Treatment Team Bowel and Bladder Management Pain Management DVT Management Diabetes Management Medical and Co-Morbidity Management Respiratory/Airway Management PATIENT REQUIRES 24X7 REHAB NURSING FOR MEDICAL AND FUNCTIONAL MGT. OF THE FOLLOWING DEFICITS: Disease Management Patient requires 24x7 Rehabilitation Nursing for: Pain Issues, Identifying and preventing risk factor s, Monitoring and reporting current medical conditions, Assisting with ambulation and transfer, Monica ting with all ADL-s, Teaching patients about disease process and medications, Family teaching, Provid ing safe environment, Bowel and Bladder Issues, Skin Integrity, and Medication Management PATIENT REQUIRES INTENSIVE, COORDINATED INTERDISCIPLINARY APPROACH TO REHAB: Arranging Home Equipment/Services Discharge Planning Family Intervention/Training Patient needs Dietary and Nutrition Services for: Adequate Nutrition, Nutritional Supplements, and Nu tritional Education Patient needs Buckle Stapler and/or Case Management for: Discharge Planning, Arranging Home Equipmen t or Services, and Family Interventions Buckle Stapler/Case Management PATIENT REHAB POTENTIAL: Onur MONTANA is able and expected to receive 3 hours of individualized therapy daily on at least 5 of inocente ry 7 days Onur MONTANA's prognosis for significant practical improvement within a reasonable period of time appears Good Expected level of measurable improvement will be of a practical value to Onur MONTANA's functional capaci ty or adaptations to impairments Has a viable Discharge Plan Medically appropriate; condition is sufficiently stable to participate in intensive rehab program DISCHARGE PLAN: - Estimated Length of Stay (days) 17. - Consensus on plan Discharge plan has been discussed with primary caregiver. Patient/Family is in agreement with the corinne n. Primary caregiver is in agreement with the plan. - Patient/Family Goals Return home independently. - Planned Living Setting Upon Discharge Home, to live with Family/Relatives. Transitional Living. RECOMMENDED CARE LEVEL: IRF RECOMMENDATION DETAILS: Recommended Admission to Comprehensive Rehabilitation Program to Increase Functional [place] SCREENER'S COMPLETENESS CONFIRMATION: - Screening Confirmation The patient data collection on this preadmission screening form is finished PHYSICIANS REVIEW AND ADMISSION DETERMINATION Admit - Based on my review of the Pre-Admission Screening results, in my medical judgment and experie nce, I concur with the findings and recommend admission to [facility], as this patient requires an IRF level of care. SIGNATURE PANEL: Clinical Liaison - [electronically] signed by Filomena Rojas on 08/20/2021 at 14:17 (CDT) Compensation Expert - [electronically] signed by Jos Quinteros PT on 08/20/2021 at 15:59 (CDT) Physician Reviewer - [electronically] signed by Dr. Bimal Carpio M.D. on 08/20/2021 at 16:15 (CDT )
--- OUTSIDE RECORDS SUMMARY | 2021-08-20 18:14 | XMS REPORT | Continuity of Care Document ---
:1930 Author Organization [facility] t Address [address] [place] [address] Dr. Mckenzie [address] [place] [address] Care Team Providers Name Role Phone Anthony Marcus Primary Care Physician Evaristo BUENO Attending Clinician Unavailable OSCAR GARCIA Attending Clinician Unavailable HEIDY WATKINS Attending Clinician Unavailable ERICKSON_R Attending Clinician Unavailable Elroy Marcus Attending Clinician [phone] Letitia DALTON, Evaristo Attending Clinician Only, Test Attending Clinician Unavailable Pob, Lab Main Attending Clinician Unavailable Doctor Unassigned, Name Attending Clinician Unavailable Edwardo DALTON, H Attending Clinician Rolo LEACH Attending Clinician Unavailable Joselyn WETZEL, T Attending Clinician Unavailable Demetria DALTON, A Attending Clinician Evaristo GUARDADO Attending Clinician Unavailable LEXUS GARCIA Attending Clinician Unavailable SHANIKA Attending Clinician Unavailable 1, Lab Attending Clinician Unavailable Paulina DALTON, Topher Attending Clinician Unavailable Evaristo BUENO Admitting Clinician Unavailable JOSE, OSCAR Admitting Clinician Unavailable HEIDY WATKINS Admitting Clinician Unavailable ERICKSON_R Admitting Clinician Unavailable AMINTA TO Admitting Clinician Unavailable HE Admitting Clinician Unavailable Payers Payer Name Policy Type Policy Number Effective Date Expiration Date Reginald dubois MEDICARE A B [id number] 1997 00:00:00 MEDICARE PART A [id number] 1997 \\T\\ B 00:00:00 [facility] MCR [id number] MEDICARE B-[place]: [id number] 1997 [employer] 00:00:00 Problems Condition Condition Condition Status Onset Resolution Last Treating Co mments Source Name Details Category Date Date Treatment Clinician Date Seizure Seizure Disease Active [facility] TBI TBI Disease Active 2019[facility] (traumatic (traumatic 09-21 Camilla kes - brain brain 00:00: Medical injury) injury) 00 Center Dementia Dementia Disease [facility] [place] Acute Acute Disease Active 2019- [facility] encephalop encephalop 6-05 [facility]illa kes - athy athy 00:00: Medical 00 Center OTHER Diagnosis Active 2019-07-16 Mem oria 3- 21:55:00 l OTHER 00:00: [place] 00 Active 07/07/2019 [place] HYPONATREM Diagnosis Active 2019-05-31 Memoria IA 05-17 21:51:00 l 00:00: [place] HYPONATREM 00 IA Active 0 [facility] BLEED Diagnosis Active 2018-042019-04-24 M emoria 2- 22:00:00 l GI BLEED 00:00: [place] 00 Active 04/08/2019 [place] CHRONIC Diagnosis Active 2018-042019-04-17 Me moria HYPONATREM 2-11 21:54:00 l IA CHRONIC 00:00: Master HYPONATREM 00 IA Active 9 [facility] ABNORMAL Diagnosis Active 2018-042019-04-05 M emoria LABS 2-11 22:05:00 l ABNORMAL 00:00: [place] LABS 00 Active 03/28/2019 [facility] [place] AMS Diagnosis Active 2018-042019-03-28 Mem oria 2-11 20:50:00 l AMS 00:00: Master 00 Active 03/28/2019 [facility] S06.5X0S - Diagnosis Active 2018-042019-05-24 Memoria TRAUM 05-13 10:29:00 l SUBDR HEM [id number] 00:01: Her addison W/O LOSS - TRAUM 00 OF C SUBDR HEM W/O LOSS OF C Active 03/13/2019 TRINA Thao FALL Diagnosis Active 2018-042019-03-06 Mem oria - 22:18:00 l FALL 00:00: [place] 00 Active 03/06/2019 [facility] SDH Diagnosis Active 2018-042019-03-22 Mem oria 05-06 22:22:00 l SDH 00:00: Master 00 Active 03/06/2019 [facility] SAH Diagnosis Active 2018-042019-03-05 Mem oria 21:43:00 l SAH 00:00: [place] 00 Active 02/14/2019 [facility] SANDY Diagnosis Active 2018-042019-02-15 Memoria BILLING/55 0- 09:53:00 l 15 00:00: Master SANDY 00 BILLING/55 15 Active 9 [facility] Graves Graves Disease Active Univers disease disease 9-05 ity of 00:00: [place] 00 Medical Branch Anticoagul Anticoagul Disease Active U nivers ated with ated with 12-21 ity of warfarin warfarin 00:00: [place] 00 Medical Branch Cervico-oc Problem Active 2019-08-19 M emoria cipital 04-19 21:09:17 l neuralgia 00:00: Master (finding) Cervico-oc 00 cipital neuralgia (finding) Active 04/19/2013 Problem 08/19/2019 Data migrated from [employer] on 09/17/14. Medical Group,[facility], Nathalie Erickson,[facility] [place] Coronary Problem Active 2019-08-19 Mem oria arterioscl 04-19 21:09:17 l erosis Coronary 00:00: [place] (disorder) arterioscl 00 erosis (disorder) Active 04/19/2013 Problem 08/19/2019 Data migrated from [employer] on 09/17/14. Medical Group,[facility], Nathalie Erickson,[facility] [place] Degenerati Problem Active 2012-042019-08-19 M emoria on of 06-10 21:09:17 l cervical 00:00: Master interverte Degenerati 00 bral disc on of (disorder) cervical interverte bral disc (disorder) Active 04/09/2013 Problem 08/19/2019 Data migrated from [email or web address] on 12/10/14. [facility], Dre Rolo Thao,[facility] [place] Headache Problem Active 2012-042019-08-19 Mem oria (finding) 06-10 21:09:17 l Headache 00:00: [place] (finding) 00 Active 04/09/2013 Problem 08/19/2019 Data migrated from [email or web address] on 12/10/14. [facility], Dre Rolo Thao,[facility] [place] History of Problem Active 2012-042019-08-19 M emoria - 06-10 21:09:17 l myocardial History 00:00: Her addison infarction of - 00 (context-d myocardial ependent infarction category) (context-d ependent category) Active 04/09/2013 Problem 08/19/2019 Data migrated from 1,2,3 [employer] on 12/10/14. Medical Group,[facility], Dre, Rolo Thao,[facility] [place] Nontraumat Problem 2019-03-11 M emoria ic chronic 23:00:38 l subdural Master hemorrhage Nontraumat ic chronic subdural hemorrhage 03/11/2019 [facility] Illness, Problem 2019-05-29 Mem oria unspecifie 22:28:06 l d Illness, [place] unspecifie d 05/29/2019 [facility] Gastrointe Problem Resolve 2019-08-19 Memoria stinal d 21:09:17 l hemorrhage [place] (disorder) Gastrointe stinal hemorrhage (disorder) Resolved Problem 08/19/2019 [facility] [place] Syndrome Problem Resolve 2019-08-19 Me moria of d 21:09:17 l inappropri 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 (disorder) n secretion (disorder) Resolved Problem 08/19/2019 [facility] [place] Atrial Problem Active 2019-08-19 Memor ia fibrillati 21:09:17 l on Atrial [place] (disorder) fibrillati on (disorder) Active Problem 08/19/2019 [facility], [place] 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 Rito [place] 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) Active Problem 08/19/2019 [facility] [place] Congestive Problem Active 2019-08-19 M emoria heart 21:09:17 l failure Master (disorder) Congestive heart failure (disorder) Active Problem 08/19/2019 [facility] [place] Fatigue Problem Active 2019-08-19 [place] (finding) 21:09:17 l Fatigue [place] (finding) Active Problem 08/19/2019 [facility], Dre, Rolo Thao,[facility] [place] Hematoma Problem Active 2019-08-19 Mem oria of 21:09:17 l subdural Hematoma Herm ruddy space of of neuraxis subdural (disorder) space of neuraxis (disorder) Active Problem 08/19/2019 [facility] [place] Hypertensi Problem Active 2019-08-19 M emoria ve 21:09:17 l disorder, [place] systemic Hypertensi arterial ve (disorder) disorder, systemic arterial (disorder) Active Problem 08/19/2019 [facility] [place] Hypothyroi Problem Active 2019-08-19 M emoria dism 21:09:17 l (disorder) [place] Hypothyroi dism (disorder) Active Problem 08/19/2019 [facility] [place] Myocardial Problem Active 2019-08-19 M emoria infarction 21:09:17 l (disorder) [place] Myocardial infarction (disorder) Active Problem 08/19/2019 [facility] [place] Pulmonary Problem Active 2019-08-19 Me moria embolism 21:09:17 l (disorder) [place] Pulmonary embolism (disorder) Active Problem 08/19/2019 [facility], Dre, Rolo Thao,[facility] [place] Sinus Problem Active 2019-08-19 Memor ia bradycardi 21:09:17 l a Sinus [place] (disorder) bradycardi a (disorder) Active Problem 08/19/2019 [facility], [place] Urinary Problem Active 2019-08-19 [place] tract 21:09:17 l infectious Urinary Her addison disease tract (disorder) infectious disease (disorder) Active Problem 08/19/2019 Medical Group,[facility], [place],M H TRINA Thao,[facility] [place] Asthenia Problem Active 2019-08-19 Mem oria (finding) 21:09:17 l Asthenia [place] (finding) Active Problem 08/19/2019 Medical Group,[facility], Dre,M H TRINA Thao,[facility] [place] HYPO-OSMOL Diagnosis Active 2019-05-31 Memoria ALITY AND 21:51:00 l HYPONATREM [place] IA HYPO-OSMOL ALITY AND HYPONATREM IA Active [facility] TRAUM Diagnosis Active 2019-05-31 Mem oria SUBDR HEM 21:51:00 l W LOC OF TRAUM Master UNSP SUBDR HEM DURATION, W LOC OF UNSP DURATION, Active [facility] NONTRAUMAT Diagnosis Active 2019-03-22 Memoria IC CHRONIC 22:22:00 l SUBDURAL Master HEMORRHAGE NONTRAUMAT IC CHRONIC SUBDURAL HEMORRHAGE Active [facility] ILLNESS, Diagnosis Active 2019-05-17 M emoria UNSPECIFIE 12:34:00 l D ILLNESS, [place] UNSPECIFIE D Active [facility] NONTRAUMAT Diagnosis Active 2019-03-05 Memoria IC 21:43:00 l SUBARACHNO [place] ID NONTRAUMAT HEMORRHAGE IC , UN SUBARACHNO ID HEMORRHAGE , UN Active [facility] Low back Low back Problem Active Unive rs pain pain [facility] [place] [facility] Thoracic Thoracic Problem Active Unive rs back pain back pain [facility] [place] [facility] Cervical Cervical Problem Active Unive rs pain pain [facility] [place] [facility] Allergies, Adverse Reactions, Alerts Allergy [...] Hallucinatio Univers ne Hcl ty to ns -19 ity of adverse 00:00: [place] reaction 00 Medical s to Branch drug Demerol Demerol Active 2012-04 Memoria HCl HCl 2-20 l 06:00: Master 00 NO KNOWN Allergy Active [facility] Social History Social Habit Start Date Stop Date Quantity Comments Source Exposure to Not sure [facility] SARS-CoV-2 (event) Medica l [place] Social History 2019-07-07 2019-07-07 [facility] [place] [facility] 11:12:48 11:12:48 Tobacco use and 2017-06-07 2017-06-07 Never used [facility] exposure 00:00:00 00:00:00 [facility] Branch Alcohol intake 2017-06-07 2017-06-07 0 /d [facility] 00:00:00 00:00:00 [facility] Sex Assigned At [birth year] [facility] kes - 00:00:00 00:00:00 [facility] Smoking Status Start Date Stop Date Source Social History [facility] Medications Ordered Filled Start Stop Current [...] Tue [place] intraocular 00 :30 01/07/21 at Al dical injection 1110, Branch Until Tue01/07/21 at 1530, Routine, Intra-op balanced 2020- No PRN, Univers salt irrig 01-07 Starting ity of soln comb1 16:10: 20:30 on Tue [place] (BSS PLUS) 00 :30 01/07/21 at Med ical ophthalmic 1110, Branch solution Until Tue 500 mL bag 01/07/21 at 1530, Routine, Intra-op Hyaluronida 2020- No PRN, Unive rs se, Human 01-07 Starting ity o f Recomb. 16:00: 20:30 on Tue (HYLENEX) 00 :30 01/07/21 at [facility] cassie injection 1100, Branch Until Tue01/07/21 at 1530, Routine, Intra-op eye block 2020- No PRN, Univers syringe 11 01-07 Starting ity of mL 16:00: 20:30 on Tue [place] 00 :30 01/07/21 at [facility] 1100, Branch Until Tue01/07/21 at 1530, Intra-op warfarin Yes 8mg Take 8 mg Univ ers (COUMADIN) 01-07 by mouth ity o f 4 mg tablet 13:30: every 28 evening. Medical Branch carvedilol Yes 3.125mg Take [...] Take 81 mg U nivers mg chewable 9-22 by mouth ity of tablet 13:30: daily. [place] [address] Medical Branch FAMOTIDINE Yes Take 40 mg U nivers ORAL 9-22 base by ity of 13:30: mouth 2 [place] [address] (two) Medical times Branch daily. OXcarbazepi Yes 300mg Take 300 U nivers ne 300 mg 9-22 mg by ity of tablet 13:30: mouth. [place] [address] Medical Branch atorvastati Yes 40mg Take 40 mg Univers n 40 mg 9-22 by mouth ity of tablet 13:30: at [place] [address] bedtime. Medical Branch warfarin Yes 8mg Take 8 mg Univ ers (COUMADIN) 9-22 by mouth ity o f 4 mg tablet 13:30: every [place] [address] evening. Medical Branch carvedilol Yes 3.125mg Take [...] Take 81 mg U nivers mg chewable 9-22 by mouth ity of tablet 13:30: daily. [place] [address] Medical Branch FAMOTIDINE Yes Take 40 mg U nivers ORAL 9-22 base by ity of 13:30: mouth 2 [place] [address] (two) Medical times Branch daily. lactated 2020- [...] ity of (JAY-SYNEPH 13:29: 15:35 Q5MIN PRN, [place] RINE) 2.5 % 58 :00 3 doses, Medi cassie ophthalmic Starting Branc h drops 1 on Wed Drop 01/07/21 at 0829, Until Tue01/07/21 at 1035, Routine, Surgery/Pr ocedure, DSU Pre-op ketorolac 2020- No 1[drp] 1 Drop, Un francine (ACULAR) 01-07 Right Eye, ity of 0.5 % 13:29: 15:35 Q5MIN PRN, [place] ophthalmic 58 :00 3 doses, Medic al solution 1 Starting Branc h Drop on Tue01/07/21 at 0829, Until Tue01/07/21 at 1035, Routine, Surgery/Pr ocedure, DSU Pre-op tropicamide 2020- No 1[drp] 1 Drop, Univers (MYDRIACYL) 01-07 Right Eye, i ty of 1 % 13:29: 15:35 Q5MIN PRN, [place] ophthalmic 58 :00 3 doses, Medic al drops 1 Starting Branch Drop on Tue01/07/21 at 0829, Until Tue01/07/21 at 1035, Routine, Surgery/Pr ocedure, DSU Pre-op atorvastati Yes 40mg Take 40 mg Univers n 40 mg 9-17 by mouth ity of tablet 14:10: at [place] [address] bedtime. Medical Branch atorvastati Yes 40mg Take 40 mg Univers n 40 mg 9-17 by mouth ity of tablet 14:10: at [place] 50 bedtime. Medical Branch OXcarbazepi Yes 300mg Take 300 U nivers ne 300 mg 9-17 mg by ity of tablet 13:59: mouth. [address] Branch OXcarbazepi Yes 300mg Take 300 U nivers ne 300 mg 9-17 mg by ity of tablet 13:59: mouth. [place] 33 Medical Branch warfarin 2021-0 Yes 8mg Take 8 mg Univ ers (COUMADIN) 9-17 by mouth ity o f 4 mg tablet 13:56: every [place] 06 evening. Medical Branch carvedilol 2020-0 Yes 3.125mg Take 3.125 Univers (COREG) 9-17 mg by ity of 3.125 mg 13:56: mouth 2 [place] tablet 06 (two) Medical times Branch daily. divalproex 2021-0 Yes 250mg Take 250 Un francine sodium [...] (three) Medical times Branch daily. aspirin 81 1-0 Yes 81mg Take 81 mg U nivers mg chewable 9-14 by mouth ity of tablet 12:58: daily. [place] Medical Branch FAMOTIDINE 2020-0 Yes Take 40 mg U nivers ORAL 9-14 base by ity of 12:58: mouth 2 [place] (two) Medical times Branch daily. divalproex 2021-0 Yes 250mg Take 250 Un francine sodium 9-14 mg by ity of (DEPAKOTE 12:58: mouth 3 [place] ORAL) (three) Medical times Branch daily. aspirin 81 0 Yes 81mg Take 81 mg U nivers mg chewable 9-14 by mouth ity of tablet 12:58: daily. [address] FAMOTIDINE Yes Take 40 mg U nivers ORAL 9-14 base by ity of 12:58: mouth 2 [place] (two) Medical times Branch daily. divalproex 0 Yes 250mg Take 250 Un francine sodium 9-14 mg by ity of (DEPAKOTE 12:58: mouth 3 [place] ORAL) (three) Medical times Branch daily. aspirin 81 0 Yes 81mg Take 81 mg U nivers mg chewable 9-14 by mouth ity of tablet 12:58: daily. [place] [facility] FAMOTIDINE Yes Take 40 mg U nivers ORAL 9-14 base by ity of 12:58: mouth 2 [place] (two) Medical times Branch daily. aspirin 81 0 Yes 81mg Take 81 mg U nivers mg chewable 9-14 by mouth ity of tablet 12:58: daily. [address] divalproex 0 Yes 250mg Take 250 Un francine sodium 9-14 mg by ity of (DEPAKOTE 12:58: mouth 3 [place] ORAL) (three) Medical times Branch daily. aspirin 81 0 Yes 81mg Take 81 mg U nivers mg chewable 9-14 by mouth ity of tablet 12:58: daily. [address] FAMOTIDINE Yes Take 40 mg U nivers ORAL 9-14 base by ity of 12:58: mouth 2 [place] (two) Medical times Branch daily. aspirin 81 0 Yes 81mg Take 81 mg U nivers mg chewable 9-14 by mouth ity of tablet 12:58: daily. [address] LEVOTHYROXI Yes [id number] TAKE 1 Univers NE 50 mcg - TABLET BY ity o f tablet 00:00: MOUTH Tuesday Medical THROUGH Branch TUESDAY AND 1 AND 1/2 TABLETS ON TUESDAY, TUESDAY AND TUESDAY LEVOTHYROXI Yes [id number] TAKE 1 Univers NE 50 mcg 3-01 TABLET BY ity o f tablet 00:00: MOUTH [place] 00 Tuesday AND 1 AND 1/2 TABLETS ON TUESDAY, TUESDAY AND TUESDAY LEVOTHYROXI Yes [id number] TAKE 1 Univers NE 50 mcg 3-01 TABLET BY ity o f tablet 00:00: MOUTH [place] 00 Tuesday AND 1 AND 1/2 TABLETS ON TUESDAY, TUESDAY AND TUESDAY LEVOTHYROXI Yes [id number] TAKE 1 Univers NE 50 mcg 3-01 TABLET BY ity o f tablet 00:00: MOUTH [place] 00 Tuesday AND 1 AND 1/2 TABLETS ON TUESDAY, TUESDAY AND TUESDAY LEVOTHYROXI Yes [id number] TAKE 1 Univers NE 50 mcg 3-01 TABLET BY ity o f tablet 00:00: MOUTH [place] 00 Tuesday AND 1 AND 1/2 TABLETS ON TUESDAY, TUESDAY AND TUESDAY LEVOTHYROXI Yes [id number] TAKE 1 Univers NE 50 mcg 3-01 TABLET BY ity o f tablet 00:00: MOUTH [place] 00 Tuesday AND 1 AND 1/2 TABLETS ON TUESDAY, TUESDAY AND TUESDAY LEVOTHYROXI Yes [id number] TAKE 1 Univers NE 50 mcg 3-01 TABLET BY ity o f tablet 00:00: MOUTH [place] 00 Tuesday AND 1 AND 1/2 TABLETS ON TUESDAY, TUESDAY AND TUESDAY LEVOTHYROXI Yes [id number] TAKE 1 Univers NE 50 mcg 3-01 TABLET BY ity o f tablet 00:00: MOUTH [place] 00 Tuesday AND 1 AND 1/2 TABLETS ON TUESDAY, TUESDAY AND TUESDAY LEVOTHYROXI Yes [id number] TAKE 1 Univers NE 50 mcg 3-01 TABLET BY ity o f tablet 00:00: MOUTH [place] 00 Tuesday AND 1 AND 1/2 TABLETS ON TUESDAY, TUESDAY AND TUESDAY LEVOTHYROXI Yes [id number] TAKE 1 Univers NE 50 mcg 3-01 [...] MG tablet 15:33: daily. Medica l 03 [place] aspirin 81 2020-0 Yes 81mg QD Take [address] MG EC 6-12 by mouth [facility] - tablet 15:33: daily. [facility] 03 [place] carvediloL 2020-0 Yes 3.125mg Take 3.125 [facility] [...] by mouth [facility] - tablet 15:33: daily. [address] carvediloL 2020-0 Yes 3.125mg Take 3.125 [...] f tablet 00:00: MOUTH [place] 00 TUESDAY [facility] Tuesday AND 1 AND 1/2 TABLETS ON TUESDAY, TUESDAY AND TUESDAY levothyroxi 2020-0 Yes TAKE 1 Univ ers ne 50 mcg 6-01 TABLET BY ity o f tablet 00:00: MOUTH [place] 00 Tuesday [facility] Tuesday AND 1 AND 1/2 TABLETS ON TUESDAY, TUESDAY AND TUESDAY levothyroxi 2020-0 Yes TAKE 1 Univ ers ne 50 mcg 6-01 TABLET BY ity o f tablet 00:00: MOUTH [place] 00 Tuesday [facility] Tuesday AND 1 AND 1/2 TABLETS ON TUESDAY, TUESDAY AND TUESDAY levothyroxi 2020-0 Yes TAKE 1 Univ ers ne 50 mcg 6-01 TABLET BY ity o f tablet 00:00: MOUTH [place] 00 Tuesday [facility] Tuesday AND 1 AND 1/2 TABLETS ON TUESDAY, TUESDAY AND TUESDAY levothyroxi 2020-0 2020- No TAKE 1 Uni vers ne 50 mcg 6-01 03- TABLET BY ity of tablet 00:00: 00:00 MOUTH [place] 00 :00 TUESDAY [facility] Tuesday AND 1 AND 1/2 TABLETS ON TUESDAY, TUESDAY AND TUESDAY levothyroxi 2020-0 2020- No TAKE 1 Uni vers ne 50 mcg 6-01 03- TABLET BY ity of tablet 00:00: 00:00 MOUTH [place] 00 :00 TUESDAY [facility] Tuesday AND 1 AND 1/2 TABLETS ON TUESDAY, TUESDAY AND TUESDAY divalproex 2020-0 Yes 250mg Take 250 Un francine sodium 4-30 mg by ity of (DEPAKOTE 15:48: mouth 3 [place] ORAL) (three) [facility] daily. aspirin 81 2020-0 Yes 81mg Take 81 mg U nivers mg chewable 4-30 by mouth ity of tablet 15:48: daily. [address] FAMOTIDINE 2020-0 Yes Take 40 mg U nivers ORAL 4-30 base by ity of 15:48: mouth 2 [place] [address] (two) Medical times Branch daily. divalproex 2020-0 Yes 250mg Take 250 Un francine sodium 4-30 mg by ity of (DEPAKOTE 15:48: mouth 3 [place] ORAL) (three) Medical times Branch daily. aspirin 81 2020-0 Yes 81mg Take 81 mg U nivers mg chewable 4-30 by mouth ity of tablet 15:48: daily. [place] [address] Medical Branch FAMOTIDINE 2020-0 Yes Take 40 mg U nivers ORAL 4-30 base by ity of 15:48: mouth 2 [place] [address] (two) Medical times Branch daily. divalproex 2020-0 Yes 250mg Take 250 Un francine sodium 4-30 mg by ity of (DEPAKOTE 15:48: mouth 3 [place] ORAL) (three) Medical times Branch daily. aspirin 81 2020-0 Yes 81mg Take 81 mg U nivers mg chewable 4-30 by mouth ity of tablet 15:48: daily. [place] [address] Medical [place] FAMOTIDINE 2020-0 Yes Take 40 mg U nivers ORAL 4-30 base by ity of 15:48: mouth 2 [place] [address] (two) Medical times Branch daily. divalproex 2020-0 Yes 250mg Take 250 Un francine sodium 4-30 mg by ity of (DEPAKOTE 15:48: mouth 3 [place] ORAL) (three) Medical times Branch daily. aspirin 81 2020-0 Yes 81mg Take 81 mg U nivers mg chewable 4-30 by mouth ity of tablet 15:48: daily. [place] [address] Medical [place] FAMOTIDINE 2020-0 Yes Take 40 mg U nivers ORAL 4-30 base by ity of 15:48: mouth 2 [place] [address] (two) Medical times Branch daily. divalproex 2020-0 Yes 250mg Take 250 Un francine sodium 4-30 mg by ity of (DEPAKOTE 15:48: mouth 3 [place] ORAL) (three) Medical times Branch daily. aspirin 81 2020-0 Yes 81mg Take 81 mg U nivers mg chewable 4-30 by mouth ity of tablet 15:48: daily. [place] [address] Medical Branch FAMOTIDINE 2020-0 Yes Take 40 mg U nivers ORAL 4-30 base by ity of 15:48: mouth 2 [place] [address] (two) Medical times Branch daily. divalproex 2020-0 Yes 250mg Take 250 Un francine sodium 4-30 mg by ity of (DEPAKOTE 15:48: mouth 3 [place] ORAL) 26 (three) Medical times Branch daily. aspirin 81 2020-0 Yes 81mg Take 81 mg U nivers mg chewable 4-30 by mouth ity of tablet 15:48: daily. [place] [address] Medical Branch FAMOTIDINE 2020-0 Yes Take 40 mg U nivers ORAL 4-30 base by ity of 15:48: mouth 2 [place] [address] (two) Medical times Branch daily. divalproex 2020-0 Yes 250mg Take 250 Un francine sodium 4-30 mg by ity of (DEPAKOTE 15:48: mouth 3 [place] ORAL) (three) Medical times Branch daily. aspirin 81 2020-0 Yes 81mg Take 81 mg U nivers mg chewable 4-30 by mouth ity of tablet 15:48: daily. [place] [address] Medical Branch FAMOTIDINE 2020-0 Yes Take 40 mg U nivers ORAL 4-30 base by ity of 15:48: mouth 2 [place] [address] (two) Medical times Branch daily. warfarin 2020-0 [...] o f 4 mg tablet 10:44: every [place] 34 evening. Medical Branch warfarin 2020-0 Yes 8mg Take 8 mg Univ ers (COUMADIN) 4-30 by mouth ity o f 4 mg tablet 10:44: every [place] 34 evening. Medical Branch warfarin 2020-0 Yes 8mg Take 8 mg Univ ers (COUMADIN) 4-30 by mouth ity o f 4 mg tablet 10:44: every [place] 34 evening. Medical Branch warfarin 2020-0 Yes 8mg Take 8 mg Univ ers (COUMADIN) 4-30 by mouth ity o f 4 mg tablet 10:44: every [place] 34 evening. Medical Branch Protonix 2020-0 No Notes: Memoria 3-24 Tablet l 12:30: should not [place] 00 be chewed or crushed. (Same as: Protonix) Divalproex 2020-0 No Notes: Memor ia Sodium 125 3-23 Hazardous l MG Enteric 23:00: Drug Group H ermann Coated 00 2:Non-anti Capsule neoplastic [Depakote] Hazardous Drug -- Refer to safe handling procedure PPE Matrix (Same as: Depakote Sprinkles) Do not confuse with 250mg capsule or tablets Do not crush. May sprinkle on food. Divalproex 2020-0 Yes 250 mg = 2 M emoria Sodium 125 3-23 cap, PO, l MG Enteric 22:21: Q6H, # 240 H ermann Coated 00 cap, 0 Capsule Refill(s) [Depakote] Divalproex 2020-0 No 500 mg = 2 M emoria Sodium 250 3-23 tab, PO, l MG Enteric 21:41: Q8H, # 180 H ermann Coated 00 tab, 0 Tablet Refill(s) Famotidine 2020-0 Yes 20 mg = 1 Me moria 20 MG Oral 3-23 tab, PO, l Tablet 20:42: BID, # 60 [place] [Pepcid] 00 tab, 0 Refill(s), Pharmacy: [id number] carvedilol 2020-0 Yes 3.125 mg = M emoria 3.125 mg 3-23 1 tab, l oral tablet 19:09: PEG, Q12H, [place] 00 0 Refill(s) Aspirin 81 2019-0 Yes 81 mg = 1 Me moria MG Enteric 3-23 tab, PO, l Coated 19:09: Q24H, # 30 Fabi nn Tablet 00 tab, 0 Refill(s), Pharmacy: [facility] #[id number] atorvastati Yes 40 mg = 1 M emoria n 40 mg 3-23 tab, PO, l oral tablet 19:09: Bedtime, # [place] 00 30 tab, 0 Refill(s), Pharmacy: [facility] #[id number] Divalproex No 500 mg = 2 M emoria Sodium 250 3-23 tab, PO, l MG Enteric 19:09: Q8H, # 180 H ermann Coated 00 tab, 0 Tablet Refill(s), Pharmacy: [facility] #[id number] Lipitor No Notes: Memoria 3-23 (Same as: l 02:20: Lipitor) Master 00 Saline 0 No Notes: Memoria Flush 0.9% 3-23 (Same as: l 02:00: BD [place] 00 Posiflush) Aspirin 81 2019-0 No Notes: Do Me moria MG Enteric 3-23 not crush l Coated 00:00: or chew. Master Tablet 00 (Same As: Ecotrin) levothyroxi 0 Yes Take 50 Uni vers ne 50 mcg 3-23 mcg-Tuesday ity of tablet 00:00: through and 75 mcg Branch on Tuesday, Tuesday and Tuesday levothyroxi 2020-0 Yes TAKE 1 Univ ers [...] TUESDAY AND TUESDAY levothyroxi 2020-0 2020- No Take 50 Un francine ne 50 mcg 3-23 03-23 mcg-Tuesday ity of tablet 00:00: 00:00 through [place] 00 :00 Medical and 75 mcg Branch on Tuesday, Tuesday and Tuesday Saline No Notes: Memoria Flush 0.9% 3-22 (Same as: l 23:18: BD Posiflush) Levetiracet [...] ia 3-21 Give with l 14:00: food. (Same As: Coreg) Furosemide No Notes: Memor ia 40 MG Oral 3-21 (Same as: l Tablet 14:00: Lasix) Master [Lasix] May cause GI upset. Give with [...] as: Protonix) sennosides, No Notes: [place]ito [place] ALF 3-21 (Same as: l 11:56: Senokot) Lanolin 2019- Yes TOP, Memoria 0.157 MG/MG 3-21 Daily, 0 l / Menthol 11:40: Refill(s) Her addison 0.0044 00 MG/MG / Petrolatum 0.24 MG/MG / Zinc Oxide 0.206 MG/MG Topical Ointment [Calmosepti ne] carvedilol No 3.125 mg = M emoria 3.125 mg 3- 1 tab, PO, l oral tablet 11:40: Q12H, 0 Her addison Refill(s) Thyroxine 2019-0 Yes 50 Memoria 3-21 microgram, l 11:40: PO, Daily, [place] 0 Refill(s) Sodium 2019-0 Yes 2 grams, Memoria Chloride - PEG, TID, l 11:40: 0 [place] 00 Refill(s) Furosemide Yes 40 mg = 1 Me moria 40 MG Oral 3-21 tab, PO, l Tablet 11:40: Daily, 0 [place] [Lasix] 00 Refill(s) sennosides, Yes 8.6 mg =, M emoria ALF - PEG, PRN, l 11:40: 0 Refill(s) Melatonin No Notes: Memori a -21 (Same as: l 07:24: Melatonin) Ondansetron No Notes: [place]ito [place] - (Same as: l 07:13: Zofran) MEDICATION WASTE Product Size: 4 mg Product Wasted: ___ mg Acetaminoph No Notes: Do M emoria en - not exceed l 07:13: 4 gm/day. (Same as: Tylenol) Lorazepam No Notes: Memori a 3-21 (Same as: l 07:13: Ativan) Dextrose 2019-0 No 12.5 gm, Memor ia 50% Syringe 07-06 25 mL, l (D50W) 07:13: Route: Master [...] 2-29 mcg-Tuesday ity of tablet 00:00: through [place] [facility] and 75 mcg Branch on Tuesday, Tuesday and Tuesday levothyroxi 2020-0 Yes Take 50 Uni vers ne 50 mcg 2-29 mcg-Tuesday ity of tablet 00:00: through [place] [facility] and 75 mcg Branch on Tuesday, Tuesday and Tuesday levothyroxi 2020-0 2020- No Take 50 Un francine ne 50 mcg 2-29 03-23 mcg-Tuesday ity of tablet 00:00: 00:00 through [place] 00 : Medical and 75 mcg Branch [...] by mouth ity of tablet 00:00: daily. [place] [facility] furosemide 2020-0 Yes 40mg Take 40 mg U nivers 20 mg 2-14 by mouth ity of tablet 00:00: daily. [place] [facility] furosemide 2020-0 Yes 40mg Take 40 mg U nivers 20 mg 2-14 by mouth ity of tablet 00:00: daily. [place] [facility] furosemide 2020-0 Yes 40mg Take 40 mg U nivers 20 mg 2-14 by mouth ity of tablet 00:00: daily. [place] [facility] furosemide 2020-0 Yes 40mg Take 40 mg U nivers 20 mg 2-14 by mouth ity of tablet 00:00: daily. [place] [facility] furosemide 2020-0 Yes 40mg Take 40 mg U nivers 20 mg 2-14 by mouth ity of tablet 00:00: daily. [place] [facility] furosemide 2020-0 Yes 40mg Take 40 mg U nivers 20 mg 2-14 by mouth ity of tablet 00:00: daily. [place] [facility] furosemide 2020-0 Yes 40mg Take 40 mg U nivers 20 mg 2-14 by mouth ity of tablet 00:00: daily. [place] [facility] furosemide 2020-0 Yes 40mg Take 40 mg U nivers 20 mg 2-14 by mouth ity of tablet 00:00: daily. [place] [facility] furosemide 2020-0 Yes 40mg Take 40 mg U nivers 20 mg 2-14 by mouth ity of tablet 00:00: daily. [place] [facility] furosemide 2020-0 Yes 40mg Take 40 mg U nivers 20 mg 2-14 by mouth ity of tablet 00:00: daily. [place] [facility] furosemide 2020-0 Yes 40mg Take 40 mg U nivers 20 mg 2-14 by mouth ity of tablet 00:00: daily. [place] [facility] furosemide 2020-0 Yes 40mg Take 40 mg U nivers 20 mg 2-14 by mouth ity of tablet 00:00: daily. [place] [facility] furosemide 2020-0 Yes 40mg Take 40 mg U nivers 20 mg 2-14 by mouth ity of tablet 00:00: daily. [address] furosemide 2020-0 Yes 40mg Take 40 mg U nivers 20 mg 2-14 by mouth ity of tablet 00:00: daily. [address] Sodium 2020-0 Yes 1 gm = 1 Memoria Chloride 2-09 tab, PO, l 1000 MG 17:26: TID, # 21 Fabi nn Oral Tablet 00 tab, 0 Refill(s), Pharmacy: [facility] #[id number] Furosemide 2020-0 Yes 20 mg = 1 Me moria 20 MG Oral 2-09 tab, PO, l Tablet 17:26: Daily, # 7 Fabi nn [Lasix] 00 tab, 0 Refill(s), Pharmacy: [facility] #[id number] Furosemide 2020-0 No Notes: Memor ia 20 MG Oral 2-09 (Same as: l Tablet 15:00: Lasix) Master [Lasix] 00 May cause GI upset. Give with food or milk. carvedilol 2020-0 No 3.125 mg, Me moria 2-08 Route: PO, l 03:00: Drug form: [place] 00 TAB, Q12H, Dosing Weight 81.6, kg, Start date: 05/25/19 21:00:00 [employer], Duration: 30 day, Stop date: 06/24/19 9:00:00 CDT Saline 2019-0 No Notes: Memoria Flush 0.9% 2-06 Same as: l 22:00: BD [place] Posiflush Sterile Saline 2019-0 No Notes: Memoria Flush 0.9% 2-06 Same as: l 20:06: BD Master Posiflush Sterile sodium 2019-0 No Notes: Memoria [...] as : l 00:57: Lipase Master 00 [id number] Units, Protease 38,000 units, Amylase 65645 units Reglan 2019-0 No Notes: Memoria 2-06 (Same as: l 00:27: Reglan) Master Lasix 2019-0 No Notes: Memoria 2-05 (Same as: l 22:00: Lasix) Master Seroquel 2019-0 No Notes: Memoria 2-05 (Same as: l 15:53: SEROquel) Master Sodium 2019-0 No 1 gm, 1 Memoria Chloride 2-05 tab, l 1000 MG 15:00: Route: PO, Herm ruddy Oral Tablet 00 Drug form: TAB, TID, Dosing Weight 81.6, kg, Start date: 05/23/19 9:00:00 [employer], Duration: 30 day, Stop date: 06/21/19 17:00:00 [employer], 0 Sodium 2020-0 No 1 gm, 1 Memoria Chloride 2-04 tab, l 1000 MG 18:28: Route: PO, Herm ruddy Oral Tablet 00 Drug form: TAB, BID, Dosing Weight 81.6, kg, Start date: 05/22/19 12:28:00 [employer], Duration: 30 day, Stop date: 06/21/19 9:00:00 [employer], 0 Sodium 2020-0 No 1,000 mL, Memori a Chloride 2-04 Rate: 40 l 0.9% IV 18:27: ml/hr, [place] 1,000 mL 00 Infuse over: 25 hr, Route: IV, Dosing Weight 81.6 kg, Total Volume: 1,000, Start date: 05/22/19 12:27:00 [employer], Duration: 2 day, Stop date: 05/24/19 12:26:00 [employer], 1.92, m2, 0 sennosides, 2020-0 No Notes: [place] ALF 2-03 (Same as: l 23:00: Senokot) Master 00 Dulcolax 2020-0 No Notes: Memoria Laxative 2-03 (Same As: l 16:21: Dulcolax, [place] 00 Correctol) (Do Not Crush) "Do Not Crush" Sodium 2020-0 No 1,000 mL, Memori a Chloride 2-03 Rate: 80 l 0.9% IV 15:42: ml/hr, [place] 1,000 mL 00 Infuse over: 12.5 hr, Route: IV, Dosing Weight 81.6 kg, Total Volume: 1,000, Start date: 05/21/19 9:42:00 [employer], Duration: 2 day, Stop date: 05/23/19 9:41:00 [employer], 1.92, m2, 0 Hydralazine 2019-0 No Notes: [place] 2-01 (Same as: l 18:35: Apresoline ) Push over 5 minutes Tylenol 2020-0 No 1,000 mg, Memor ia 2-01 Route: PO, l 15:01: ONCE, [place] Dosing Weight 81.6, kg, Priority: NOW, Start date: 05/19/19 9:01:00 [employer], Stop date: 05/19/19 9:01:00 [employer] D5W 100 mL 2020-0 No 100 mL, Rito [place] 2-01 Rate: 100 l 12:32: ml/hr, Master Infuse over: 1 hr, Route: IV, Dosing Weight 81.6 kg, Total Volume: 100, Priority: STAT, Start date: 05/19/19 6:32:00 [employer], Duration: 1 doses or times, Stop date: 05/19/19 7:31:00 [employer], 1.92, m2, 0 D5W 100 mL 2020-0 No 100 mL, Rito [place] 2-01 Rate: 100 l 09:28: ml/hr, [place] 00 Infuse over: 1 hr, Route: IV, Dosing Weight 81.6 kg, Total Volume: 100, Priority: STAT, Start date: 05/19/19 3:28:00 [employer], Duration: 1 doses or times, Stop date: 05/19/19 4:27:00 [employer], 1.92, m2, 0 D5W 1,000 2019-0 No 1,000 mL, Mem oria mL - Rate: 100 l 02:07: ml/hr, [place] 00 Infuse over: 10 hr, Route: IV, Dosing Weight 81.6 kg, Total Volume: 1,000, Priority: STAT, Start date: 05/18/19 20:07:00 [employer], Duration: 30 day, Stop date: 06/17/19 20:06:00 [employer], 1.92, m2, 0 tolvaptan 2019-0 No Notes: Memori a -31 Same as: l 20:03: Samsca [place] 00 Protonix 2019-0 No Notes: Memoria -31 Tablet l 15:00: should not Master 00 be chewed or crushed. (Same as: Protonix) POLYETHYLEN 2019-0 No Notes: Rito [place] E GLYCOL 05-18 Dissolve l 3350 15:00: in 8 oz of Master 00 water or juice. (Same as: Miralax) Water 1000 2019-0 No 1,000 ml, Me moria MG/ML 05-18 Rate: 50 l Injectable 14:09: ml/hr, Fabi nn Solution 00 Infuse over: 21.7 hr, Route: IV, Dosing Weight 81.6 kg, Total Volume: 1,085.5, Start date: 05/18/19 8:09:00 [employer], Duration: 30 day, Stop date: 06/17/19 8:08:00 [employer], For IMU and ICU use only. See Order Comments!! , 1.92, m2, 0 Thyroxine No Notes: Memori a -31 Take 1 l 12:30: hour [place] 00 before or 2 hours after meal; Enteral feeds may interefere with the absorption of this medication .(Same as:Levothr oid, Synthroid) carvedilol No Notes: Memor ia - Give with l 10:00: food. Master (Same As: Coreg) lansoprazol No Notes: Rito [...] Memoria 05-18 (Same as: l 03:00: SEROquel) [place] Docusate No Notes: Memoria 05-17 (Same as: l 23:00: Colace) Master sodium No Notes: Memoria bicarbonate 05-17 (sodium l 8.4% 22:04: bicarb [place] 00 8.4% (1 mEq/ml) 50 ml VL) carvedilol No Notes: Memor ia 30 Give with l 22:01: food. [place] 00 (Same As: Coreg) Water 1000 No 1,000 ml, Me moria MG/ML 05-17 Rate: 35 l Injectable 18:01: ml/hr, Fabi nn Solution 00 Infuse over: 31 hr, Route: IV, Dosing Weight 81.6 kg, Total Volume: 1,085.5, Start date: 05/17/19 12:01:00 [employer], Duration: 30 day, Stop date: 06/16/19 12:00:00 [employer], For IMU and ICU use only. See Order Comments!! , 1.92, m2, 0 Bisacodyl No Notes: Memori a -30 (Same As: l 18:01: Dulcolax, Master 00 Bisco-Lax) DDAVP No Notes: Memoria 1-30 (Same As: l 18:00: DDAVP) MEDICATION WASTE Product Size: 4 microgram Product Wasted: ___ microgram Enoxaparin No Notes: Memor ia 1-30 (Same as: l 17:00: Lovenox) Saline No Notes: Memoria Flush 0.9% 1-30 Same as: l 16:56: BD Posiflush Sterile Potassium No Notes: Memori a Chloride -30 (Same as: l 16:56: KCL) Infuse no faster than 10 mEq/hr if given peripheral ly. sodium No Notes: Memoria phosphate -30 Infuse l 16:56: over 4 hour. Do not infuse phosphorou s concurrent ly in the same line as TPN or IVF that contains calcium. For double lumen central lines, phosphorou s may be infused in a separate lumen from TPN. potassium No Notes: Memori a phosphate -30 (Same as: l 16:56: K Phosphate. ) [...] -30 (Same as: l odium 16:56: Phos-NaK) Each 1.5 250 mg-280 gm pkt has mg-160 mg 250mg oral powder phosphorou for s. Mix reconstitut w/2.5oz ion water and stir. Magnesium No Notes: Memori a Sulfate 05-17 WASTE: F/P l 16:56: - Sink; E - Municipal Trash Bin Magnesium No Notes: Memori a Oxide -30 (Same as: l 16:56: Mag-Ox 400) Magnesium oxide 193hw=232n g elemental magnesium Dose=____m g magnesium oxide (___mg elemental magnesium) Calcium No Notes: Memoria Gluconate 1-30 WASTE: F/P l 16:56: - Sink; E Master 00 - Municipal Trash Bin Calcium No Notes: Memoria Carbonate -30 (Same As: l 500 MG 16:56: Tums) [place] Chewable 00 Calcium Tablet Carbonate 500 mg = 200 mg elemental calcium Dose = mg calcium carbonate ( mg elemental calcium) pantoprazol 2018-04 Yes 40 mg = 1 M emoria e 40 MG 2-24 tab, PO, l Enteric 16:19: Daily, # [place] Coated 00 30 tab, 0 Tablet Refill(s), [Protonix] Pharmacy: [facility] #[id number] lidocaine 2018-04 No Route: IV, Me moria (ANES) 2-23 Drug form: l 22:27: INJ, ONCE, Stop date: 04/09/19 16:27:00 [employer] propofol 2018-04 No Route: IV, Mem oria (ANES) 10 - Drug form: l mg 22:05: INJ, Start date: 04/09/19 16:05:00 [employer], Stop date: 04/09/19 17:05:00 [employer] Lactated 2018-04 No Route: IV, Mem oria Ringers 2-23 Total l Injection 21:58: Volume: Fabi nn IV (ANES) 00 1,000, 1000 mL Start date: 04/09/19 15:58:00 [employer], Stop date: 04/09/19 16:58:00 [employer] Lumason 2018-04 No Notes: Memoria intravenous 2-23 (Same as: l injection 18:39: Lumason) Administer as an IV bolus; do not administer intra-ibeth rially. Follow each injection with an intravenou s flush of 5 mL of NS. Fleet Enema 2018-04 No 12 years, Memoria 2-23 Pediatric l 17:55: Dosing, 0 Master 00 Thyroxine 2018-04 No Notes: Memori a 2-23 Take 1 l 12:30: hour before or 2 hours after meal; Enteral feeds may interefere with the absorption of this medication .(Same as:Levothr oid, Synthroid) Sodium 2018-04 No 1 gm, 1 Memoria Chloride 2-23 tab, l 1000 MG 06:00: Route: Master Oral Tablet 00 PEG, Drug form: TAB, Q8H, Dosing Weight 81.818, kg, Start date: 04/09/19 0:00:00 [employer], Duration: 30 day, Stop date: 05/08/19 16:00:00 [employer], 0 Coreg 2018-04 No Notes: Memoria 2-23 Give with l 03:00: food. Master (Same As: Coreg) Lactulose 2018-04 No Notes: Memori a 667 MG/ML 2-23 (Same l Oral 03:00: as:Chronul [place] Solution 00 ac) Sodium 2018-04 No 1,000 mL, Memori a Chloride 2-23 Rate: 75 l 0.9% IV 02:19: ml/hr, Master 1,000 mL 00 Infuse over: 13.3 hr, Route: IV, Dosing Weight 81.818 kg, Total Volume: 1,000, Start date: 04/08/19 20:19:00 [employer], Duration: 30 day, Stop date: 05/08/19 20:18:00 [employer], 2.02, m2, 0 Dextrose 2018-04 No 12.5 gm, Memor ia 50% Syringe 2-23 25 mL, l (D50W) 02:18: Route: Master IVP, Drug Form: INJ, Dosing Weight 81.818, kg, PRN, PRN Blood Glucose Results, Start date: 04/08/19 20:18:00 [employer], Duration: 30 day, Stop date: 05/08/19 20:17:00 [employer], 0 Glucagon 2018-04 No 1 mg, Memoria - Route: IM, l 02:18: Drug form: Master 00 PDR/INJ, PRN, Dosing Weight 81.818, kg, PRN Blood Glucose Results, Start date: 04/08/19 20:18:00 [employer], Duration: 30 day, Stop date: 05/08/19 20:17:00 [employer], 0 Ondansetron 2018-04 No Notes: [place]ito [place] 2-23 (Same as: l 02:18: Zofran) MEDICATION WASTE Product Size: 4 mg Product Wasted: ___ mg Acetaminoph 2018-04 No Notes: Do M yovania en 2-23 not exceed l 02:18: 4 gm/day. Master 00 (Same as: Tylenol) pantoprazol 2018-04 No Notes: For Memoria e 06-10 IV push l 02:18: reconstitu [place] 00 te with 10 ml 0.9% sodium chloride and push over 2 minutes. (Same as: Protonix) Omnipaque 2018-04 No Notes: Memori a 300 06-09 (Same l injectable 22:13: as:Omnipaq H ermann solution 00 ue 300). WASTE: F/P - Black; E - Municipal Trash Bin Saline 2018-04 No Notes: Memoria Flush 0.9% 22 (Same as: l 20:55: BD Master Posiflush) carvedilol 2018-04 Yes 3.125 mg = M emoria 3.125 mg 2-20 1 tab, l oral tablet 19:31: PEG, Q12H, [place] 00 0 Refill(s) levothyroxi 2018-04 Yes 50 Memori a ne 50 mcg 2-20 microgram l (0.05 mg) 19:31: = 1 tab, Herm ruddy oral tablet 00 PEG, Q630AM, 0 Refill(s) Warfarin 2018-04 No 9 mg, PO, Rito [place] 2-18 Daily, 0 l 16:39: Refill(s), [place] 00 [facility] [id number] carvedilol 2018-04 No PO, 0 Memori a 2-18 Refill(s) l 15:55: Master 00 carvedilol 2018-04 No 6.25 mg = Me moria 6.25 mg 2-18 1 tab, PO, l oral tablet 15:55: Q12H, # 60 [place] 00 tab, 0 Refill(s), [facility] [id number] levothyroxi 2018-04 No See Memori a ne 75 mcg 2-18 Instructio l (0.075 mg) 15:55: ns, 1 tab, H ermann oral tablet 00 PEG, Tuesday, Tuesday and Tuesday (once a day), 0 Refill(s), [facility] [id number] meloxicam 2018-04 Yes 15 mg = 1 [...] 79.1, kg, Start date: 04/03/19 16:00:00 [employer], Duration: 30 day, Stop date: 05/03/19 8:00:00 [employer], 0 Miralax 2018-04 No Notes: Memoria 2-17 Dissolve l 15:46: in 8 oz of [place] water or juice. (Same as: Miralax) Beneprotein 2018-04 No 1 pkt, Rito [place] 7 gm pkt 2-17 Route: PO, l 13:30: Drug Form: [place] 00 PWDR, Dosing Weight 79.1, kg, BID-Before Meals, Start date: 04/03/19 7:30:00 [employer], Duration: 30 day, Stop date: 05/02/19 16:30:00 [employer] NS (Bolus) 2018-04 No 500 mL, Rito [place] IV 2-17 500 ml/hr, l 10:11: Infuse Master 00 Over: 1 hr, Route: IV, 500, Drug form: INJ, ONCE, Priority: STAT, Dosing Weight 79.1 kg, Start date: 04/03/19 4:11:00 [employer], Stop date: 04/03/19 4:11:00 [employer], 0 Sodium 2018-04 No 2 gm, 2 Memoria Chloride 2-17 tab, l 1000 MG 06:00: Route: GT, Herm ruddy Oral Tablet 00 Drug form: TAB, Q8H, Dosing Weight 79.1, kg, Start date: 04/03/19 0:00:00 [employer], Duration: 30 day, Stop date: 05/02/19 16:00:00 [employer], 0 Beneprotein 2018-04 No Notes: Rito [place] 7 gm pkt 2-16 (Same as: l 23:15: Beneprotei [place] 00 n) Beneprotein 2018-04 No Notes: Rito [place] 7 gm pkt 2-16 (Same as: l 22:30: Beneprotei Master 00 n) Albuterol 2018-04 No Notes: Memori a 0.833 MG/ML 2-16 (Same as: l / 17:49: Duoneb) Master Ipratropium 00 [place] 0.167 MG/ML Inhalant Solution [DuoNeb] Isolyte S 2018-04 No Notes: Memori a PH-7.4 2-16 (Same as: l (Bolus) IV 10:10: Isolyte S He rmann 00 PH7.4, Normosol-R PH 7.4, Plasma-Lyt e A ) sterile 2018-04 No 20 mL, Memoria water 2-15 Route: l 16:59: MISC, Drug Master 00 Form: INJ, Bedtime, PRN Other -See Comment, Start date: 04/01/19 10:59:00 [employer], Duration: 30 day, Stop date: 05/01/19 10:58:00 [employer], 0 Sodium 2018-04 No 3 gm, 3 Memoria Chloride 2-15 tab, l 1000 MG 15:49: Route: GT, Herm ruddy Oral Tablet 00 Drug form: TAB, Q8H, Dosing Weight 79.1, kg, Priority: NOW, Start date: 04/01/19 9:49:00 [employer], Duration: 30 day, Stop date: 05/01/19 8:00:00 [employer], 0 Zyprexa 2018-04 No Notes: Memoria 2-15 (Same As: l 15:42: ZyPREXA [place] 00 IM). Reconstitu te with 2.1 ml sterile water for injection; use within 1 hour after reconstitu tion. For IM use only; do not administer IV or SUB-Q. Zyprexa 2018-04 No 10 mg, Memoria 2-15 Route: IM, l 15:40: Drug form: [place] 00 INJ, BID, Dosing Weight 79.1, kg, PRN Agitation, Start date: 04/01/19 9:40:00 [employer], Duration: 30 day, Stop date: 05/01/19 9:39:00 [employer] Zyprexa 2018-04 No Notes: Memoria 2-15 (Same [...] Volume: 1,000, Start date: 03/31/19 0:03:00 [employer], Duration: 30 day, Stop date: 04/30/19 0:02:00 [employer], For IMU and ICU use only. See Order Comments!! , 1.99, m2, 0 Seroquel 2018-04 No Notes: Memoria 2-13 (Same as: l 22:23: SEROquel) [place] Sodium 2018-04 No 3 gm, 3 Memoria Chloride 2-13 tab, l 1000 MG 18:30: Route: PO, Herm ruddy Oral Tablet 00 Drug form: TAB, Q8H-05, Dosing Weight 79.1, kg, Start date: 03/30/19 12:30:00 [employer], Duration: 30 day, Stop date: 04/29/19 5:00:00 [employer], 0 DDAVP 2018-04 No Notes: Memoria 2-13 (Same As: l 12:00: DDAVP) MEDICATION WASTE Product Size: 4 microgram Product Wasted: ___ microgram Water 1000 2018-04 No 914.5 mL, Me moria MG/ML 2-13 Rate: 50 l Injectable 10:07: ml/hr, Fabi nn Solution 00 Infuse over: 20 hr, Route: IV, Dosing Weight 79.1 kg, Total Volume: 1,000, Start date: 03/30/19 4:07:00 [employer], Duration: 30 day, Stop date: 04/29/19 4:06:00 [employer], For IMU and ICU use only. See Order Comments!! , 1.99, m2, 0 Hydralazine 2018-04 No Notes: Rito [place] 2-12 (Same as: l 22:23: Apresoline ) Push over 5 minutes Labetalol 2018-04 No 10 mg, 2 Irto [place] 2-12 mL, Route: l 22:23: IVP, Drug form: INJ, Q15Min, Dosing Weight 79.1, kg, PRN Elevated BP, Start date: 03/29/19 16:23:00 [employer], Duration: 30 day, Stop date: 04/28/19 16:22:00 [employer], 0 heparin 2018-04 No Notes: Memoria sodium, 2-12 porcine l porcine 22:00: heparin [place] 2500 UNT/ML 00 Injectable Solution Dextrose 5% 2018-04 No 1,000 mL, M emoria in Water IV 2-12 Rate: 50 l 1,000 mL 16:12: ml/hr, [place] 00 Infuse over: 20 hr, Route: IV, Dosing Weight 79.1 kg, Total Volume: 1,000, Start date: 03/29/19 10:12:00 [employer], Duration: 30 day, Stop date: 04/28/19 10:11:00 [employer], 1.99, m2, 0 DDAVP 2018-04 No Notes: Memoria 2-12 (Same As: l 16:00: DDAVP) [place] 00 MEDICATION WASTE Product Size: 4 microgram [...] 00 sennosides, 2018-04 No Notes: Rito [place] ALF 2-12 (Same as: l 15:00: Senokot) [place] 00 Docusate 2018-04 No Notes: Memoria 2-12 [...] Priority: STAT, Start date: 03/29/19 4:59:00 [employer], Duration: 30 day, Stop date: 04/28/19 4:58:00 [employer], For IMU and ICU use only. See Order Comments!! ... Potassium 2018- No Notes: Memori a Chloride 2-12 (Same as: l 06:19: KCL) [place] 00 Infuse no faster than 10 mEq/hr [...] phosphate 2-12 (Same as: l 06:19: K [place] 00 Phosphate. ) Do not infuse phosphorou [...] reconstitut w/2.5oz ion water and stir. Magnesium 2018- No Notes: Memori a Sulfate 2-12 WASTE: F/P l 06:19: - Sink; E - Municipal Trash Bin Magnesium 2018-04 No Notes: Memori a Oxide 2-12 (Same as: l 06:19: Mag-Ox Master 00 400) Magnesium oxide 640zo=775e g elemental magnesium Dose=____m g magnesium oxide [...] calcium) Iohexol 2018-04 No 100 mL, Memoria 12 Route: l 05:23: IVP, Drug Master 00 Form: SOLN, Dosing Weight 86.364, kg, ONCALL, STAT, Start date: 03/28/19 23:23:00 [employer], Duration: 1 doses or times, Dose = [...] Rate: 50 l 0.9% IV 04:05: ml/hr, [place] 1,000 mL 00 Infuse over: 20 hr, Route: IV, Dosing Weight 86.364 kg, Total Volume: 1,000, Start date: 03/28/19 22:05:00 [employer], Duration: 30 day, Stop date: 04/27/19 22:04:00 [employer], 2.08, m2, 0 Acetaminoph 2018-04 No Notes: Do M emoria en 2-12 not exceed l 04:05: 4 gm/day. [place] 00 (Same as: Tylenol) Acetaminoph 2018-04 No Notes: [place] en 325 MG / 2-12 (Same as: l Hydrocodone 04:05: Dyer Fabi nn Bitartrate 00 325/5) Do 5 MG Oral not exceed Tablet 4gm/day of acetaminop hen. Acetaminoph 2018-04 No Notes: Do M emoria en 325 MG / 2-12 not exceed l Hydrocodone 04:05: 4gm/day of Master Bitartrate 00 acetaminop 10 MG Oral hen. Tablet (Same as: [place] 325/10) Morphine 2018-04 No Notes: Memoria 2-12 (Same l 04:05: as:MORPhin Master 00 e Sulfate) Bisacodyl 2018-04 No Notes: Memori a 2-12 (Same As: l 04:05: Dulcolax, [place] 00 Bisco-Lax) Ondansetron 2018-04 No Notes: [place] 2-12 (Same as: l 04:05: Zofran) Master MEDICATION WASTE Product Size: 4 mg Product Wasted: ___ mg Benadryl 2018-04 No Notes: Memoria 2-12 (Same as: l 04:05: Benadryl) Master 00 phenol 2018-04 No Notes: Memoria 2-12 Chlorasept l 04:05: ic [place] Master (Same as: Chlorasept ic, Sore Throat [place]) WASTE: F/P - Black; E - Municipal Trash Bin Melatonin 3 2018-04 No Notes: [place]ito [place] MG Extended 2-12 (Same as: l Release 04:05: Melatonin) Herm ruddy Tablet 00 Saline 2018-04 No Notes: Memoria Flush 0.9% 2-12 Same as: l 04:05: BD [place] 00 Posiflush Sterile Dextrose 2018-04 No 25 gm, 50 [place] 50% Syringe 2-12 mL, Route: l (D50W) 04:05: IVP, Drug Quoc n 00 Form: INJ, Dosing Weight 86.364, kg, PRN, PRN Abnormal Lab Result, Start date: 03/28/19 22:05:00 [employer], Duration: 30 day, Stop date: 04/27/19 22:04:00 [employer], 0 Regular 2018-04 No Notes: Memoria Insulin, [...] 90.9, kg, Start date: 03/09/19 18:00:00 [employer], Stop date: 04/13/19 12:00:00 [employer], 0 Melatonin 3 2018-04 Yes 3 mg = 1 Me moria MG Extended -22 tab, PO, l Release 19:44: Bedtime, Quoc n Tablet 00 PRN Sleep, 0 Refill(s) Melatonin 3 2018-04 No 3 mg, 1 Mem oria MG Extended 05-09 tab, l Release 19:43: Route: PO, Herm ruddy Tablet 00 Dosing Weight 90.9, kg, Bedtime, PRN Sleep, Start date: 03/09/19 13:43:00 [employer], Duration: 30 day, Stop date: 04/08/19 13:42:00 [employer] Sodium 2018-04 No 3 gm, Memoria Chloride 05-09 Route: l 1000 MG 19:00: PEG, TID, Fabi nn Oral Tablet 00 Dosing Weight 90.9, kg, Start date: 03/09/19 13:00:00 [employer], Duration: 30 day, Stop date: 04/08/19 9:00:00 [employer] Imodium A-D 2018-04 Yes 1 mg, PO, M emoria 05-09 Q6H, PRN l 18:50: Diarrhea, [place] 00 0 Refill(s) Lanolin 2018-04 No Notes: [...] 1 Mem oria 10 MG 05-09 supp, [place], l Rectal 14:27: Q24H, Master Suppository 00 NEEDED, 0 [Dulcolax] Refill(s) heparin 2018-04 No 2,500 unit [place] sodium, 05-09 = 1 mL, l porcine 14:27: SUB-Q, [place] 2500 UNT/ML 00 Q8H, DVT Injectable PROPHYLAXI Solution S, # 10 vial, 0 Refill(s) Albuterol 2018-04 No 3 mL, NEB, Me moria 0.833 MG/ML 05-09 Q4H, l / 14:27: NEEDED, 0 [place] Ipratropium 00 Refill(s) [place] 0.167 MG/ML Inhalant Solution [DuoNeb] Lactulose 2018-04 Yes 20 gm = 30 Me moria 667 MG/ML - mL, GT, l Oral 14:27: Q12H, 0 [place] Solution 00 Refill(s) omeprazole 2018-04 Yes 40 [...] e 1-22 Take 1 l 13:30: hour [place] 00 before or 2 hours after meal; Expires in 14 days. Shake well before use. (Same as:Prevaci d) Compound ed Product - formulatio n not commercial ly available* * lansoprazol 2018-04 No Notes: [place] e -22 Take 1 l 06:25: hour Master 00 before or 2 hours after meal; Expires in 14 days. Shake well before use. (Same as:Prevaci d) Compound ed Product - formulatio n not commercial ly available* * Melatonin 2018-04 No Notes: Memori a -22 (Same as: l 06:24: Melatonin) Master 00 heparin 2018-04 No Notes: Memoria sodium, 1-21 porcine l porcine 05:55: heparin [place] 2500 UNT/ML 00 Injectable Solution Docusate 2018-04 No Notes: Memoria Sodium 50 1-20 (Same as l MG / 15:00: Senokot-S) Master sennosides, 00 Equiv. to ALF 8.6 MG [place]-Colac Oral Tablet e. Levetiracet 2018-04 No Notes: [place] am 100 1-20 Same as: l MG/ML Oral 15:00: Keppra Fabi nn Solution 00 [Keppra] carvedilol 2018-04 No Notes: Memor ia 1-20 Give with l 15:00: food. [place] 00 (Same As: Coreg) Beneprotein 2018-04 No Notes: [place] 7 gm pkt -20 (Same as: l 13:30: Beneprotei Master 00 n) Thyroxine 2018-04 No Notes: Memori a 1-20 Take 1 l 12:30: hour [place] 00 before or 2 hours after meal; [...] Memoria 1-20 (Same as: l 03:00: Colace) [place] 00 (Do Not Crush) sennosides, 2018-04 No Notes: [place] ALF 1-20 (Same as: l 03:00: Senokot) [place] 00 Saline 2018-04 No Notes: Memoria Flush 0.9% 1-20 (Same as: l 03:00: BD Master Posiflush) Sodium 2018-04 No 1,000 mL, Memori a Chloride 1-20 Rate: 50 l 0.9% IV 02:28: ml/hr, [place] 1,000 mL 00 Infuse over: 20 hr, Route: IV, Dosing Weight 90.909 kg, Total Volume: 1,000, Start date: 03/06/19 20:28:00 [employer], Duration: 30 day, Stop date: 04/05/19 20:27:00 [employer], 2.1, m2, 0 Acetaminoph 2018-04 No Notes: Do M emoria en 1-20 not exceed l 02:28: 4 gm/day. Master (Same as: Tylenol) Bisacodyl 2018-04 No Notes: Memori a 1-20 (Same As: l 02:28: Dulcolax, [place] Bisco-Lax) Ondansetron 2018-04 No Notes: [place] 1-20 (Same as: l 02:28: Zofran) [place] 00 MEDICATION WASTE Product Size: 4 mg [...] Lab Result, Start date: 03/06/19 20:28:00 [employer], Duration: 30 day, Stop date: 04/05/19 20:27:00 [employer], 0 Regular 2018-04 No Notes: Memoria Insulin, [...] emoria en 13 0 l 21:13: Refill(s) [place] 00 carvedilol 2018-04 Yes 3.125 mg = M emoria 3.125 mg 04-30 1 tab, GT, l oral tablet 21:13: Q12H, 0 Her addison 00 Refill(s) cefepime 2018-04 Yes 2 gm, IVP, Mem oria 04-30 [id number], 0 l 21:13: Refill(s) [place] 00 heparin 2018-04 No SUB-Q, Memoria sodium, 04-30 Q8H, 0 l porcine 21:13: Refill(s) Fabi nn 2500 UNT/ML 00 Injectable Solution Levetiracet 2018-04 Yes GT, Q12H, M emoria am 500 MG 13 0 l Oral Tablet 21:13: Refill(s) H ermann [Keppra] 00 levothyroxi 2018-04 Yes 50 Memori a ne 50 mcg 1-13 microgram l (0.05 mg) 21:13: = 1 tab, Herm ruddy oral tablet 00 PEG, Q630AM, 0 Refill(s) QUEtiapine 2018-04 Yes 50 mg = 1 Me moria 50 mg oral -13 tab, PEG, l tablet 21:13: Q12H, 0 [place] 00 Refill(s) senna 8.8 2018-04 Yes 8.8 mg = 5 Me moria mg/5 mL -13 mL, [place], l oral syrup 21:13: BID, 0 Fabi nn 00 Refill(s) Metronidazo 2018-04 Yes 500 mg = 1 Memoria le 500 MG -13 tab, PEG, l Oral Tablet 21:13: ABXQ8H, 0 H ermann 00 Refill(s) lansoprazol 2018-04 Yes PEG, Memori a e 1-13 BID-Before l 21:13: Meals, 0 Refill(s) Miralax 2018-04 No Notes: Memoria 1-13 Dissolve l 15:00: in 8 oz of water or juice. (Same as: Miralax) Levetiracet 2018-04 No Notes: [place] am 500 MG - Same as: l Oral Tablet 03:00: Keppra Herm ruddy [Keppra] 00 Dextrose 2018-04 No 12.5 gm, Memor ia 50% Syringe -13 25 mL, l 02:16: Route: Master 00 IVP, Drug Form: INJ, Dosing Weight 87.9, kg, PRN, PRN Blood Glucose Results, Start date: 02/27/19 20:16:00 [employer], Duration: 30 day, Stop date: 03/29/19 20:15:00 [employer], 0 Glucagon 2018-04 No 1 mg, Memoria 04-30 Route: IM, l 02:16: Drug form: PDR/INJ, PRN, Dosing Weight 87.9, kg, PRN Blood Glucose Results, Start date: 02/27/19 20:16:00 [employer], Duration: 30 day, Stop date: 03/29/19 20:15:00 [employer], 0 Insulin 2018-04 No Notes: Memoria Lispro - (Same as: l 02:16: Humalog) Roll in palms of hands gently; Do not shake vigorously . WASTE: F/P - Black; E - Municipal Trash Bin Stable for 28 days at room temperatur e. Expires in days from ____Date Flagyl 2018-04 No Notes: Memoria 1-12 (Same as: l 02:00: Flagyl) Take with food/ avoid alcohol NS (Bolus) 2018-04 No 500 mL, [place] IV 1-10 500 ml/hr, l 13:05: Infuse Over: 1 hr, Route: IV, 500, Drug form: INJ, ONCE, Priority: STAT, Dosing Weight 87.9 kg, Start date: 02/25/19 7:05:00 [employer], Stop date: 02/25/19 7:05:00 [employer], 0 Seroquel 2018-04 No Notes: Memoria - (Same as: l 03:00: SEROquel) [place] 00 Zofran 2018-04 No Notes: Memoria 04-26 (Same as: l 23:11: Zofran) Master 00 MEDICATION WASTE Product Size: 4 mg Product Wasted: ___ mg Thyroxine 2018-04 No 50 Memoria - microgram, l 12:30: Route: PO, [place] 00 Drug form: TAB, Q630AM, Dosing Weight 87.9, kg, Start date: 02/24/19 6:30:00 [employer], Duration: 30 day, Stop date: 03/25/19 6:30:00 [employer] pantoprazol 2018-04 No 40 mg, [place] e 04-26 Route: l 03:00: PEG, Q12H, Dosing Weight 87.9, kg, Start date: 02/23/19 21:00:00 [employer], Duration: 30 day, Stop date: 03/25/19 9:00:00 [employer] cefepime 2018-04 No Notes: Memoria 04-26 (Same as: l 02:00: Maxipime) MEDICATION WASTE Product Size: 2000 mg Product Wasted: ___ mg normal 2018-04 No 1,000 mL, Memori a saline 0.9% 04-26 Rate: l IV 1,000 mL 00:49: 1,000 Fabi nn 00 ml/hr, Infuse over: 1 hr, Route: IV, Dosing Weight 87.9 kg, Total Volume: 1,000, Start date: 02/23/19 18:49:00 [employer], Duration: 1 doses or times, Stop date: 02/23/19 19:48:00 [employer], 2.05, m2, 0 normal 2018-04 No 1,000 mL, Memori a saline 0.9% 04-25 Rate: l IV 1,000 mL 23:09: 1,000 Fabi nn 00 ml/hr, Infuse over: 1 hr, Route: IV, Dosing Weight 87.9 kg, Total Volume: 1,000, Start date: 02/23/19 17:09:00 [employer], Duration: 1 doses or times, Stop date: 02/23/19 18:08:00 [employer], 2.05, m2, 0 Prevacid 2018-04 No Notes: Memoria -08 Take 1 l 22:30: hour [place] 00 before or 2 hours after meal; Expires in 14 days. Shake well before use. (Same as:Prevaci d) Compound ed Product - formulatio n not commercial ly available* * Beneprotein 2018-04 No Notes: [place] 7 gm pkt 04-25 (Same as: l 22:30: Beneprotei [place] 00 n) sugammadex 2018-04 No Notes: Memor ia 04-25 (Same as: l 20:19: [place]) Master 00 Flagyl 2018-04 No Notes: Memoria 04-25 (Same as: l 18:00: Flagyl) [place] 00 Avoid alcohol. ondansetron 2018-04 No Route: IV, Memoria (ANES) 04-25 Drug form: l 15:15: INJ, ONCE, Stop date: 02/23/19 9:15:00 [employer] ePHEDrine 2018-04 No Route: IV, Me moria (ANES) 04-25 Drug form: l 15:06: INJ, ONCE, Stop date: 02/23/19 9:06:00 [employer] ANES 2018-04 No 0.625 mg, Memoria Enalaprilat 04-25 Route: l 14:41: IVP, Master 00 Q5Min, Dosing Weight 87.9, kg, PRN Elevated BP, Start date: 02/23/19 8:41:00 [employer], Duration: 4 doses or times, Stop date: Limited # of times Hydralazine 2018-04 No 10 mg, [place] 04-25 Route: l 14:41: IVP, Master 00 Q20Min, Dosing Weight 87.9, kg, PRN Elevated BP, Start date: 02/23/19 8:41:00 [employer], Duration: 2 doses or times, Stop date: Limited # of times esmolol 2018-04 No 10 mg, Memoria 04-25 Route: l 14:41: IVP, [place] 00 Q5Min, Dosing Weight 87.9, kg, PRN Other -See Comment, Start date: 02/23/19 8:41:00 [employer], Duration: 5 doses or times, Stop date: Limited # of times Labetalol 2018-04 No 10 mg, Memori a 04-25 Route: l 14:41: IVP, [place] 00 Q5Min, Dosing Weight 87.9, kg, PRN Elevated BP, Start date: 02/23/19 8:41:00 [employer], Duration: 5 doses or times, Stop date: Limited # of times Acetaminoph 2018-04 No 1,000 mg, M emoria en 04-25 Route: PO, l 14:41: Drug form: [place] 00 TAB, ONCE, Dosing Weight 87.9, kg, PRN Pain Score 1-3, Start date: 02/23/19 8:41:00 [employer] Oxycodone 2018-04 No 5 mg, Memoria 04-25 Route: NG, l 14:41: Drug form: Master 00 LIQ, Q4H, Dosing Weight 87.9, kg, PRN Pain Score 4-6, Start date: 02/23/19 8:41:00 [employer], Duration: 30 day, Stop date: 03/25/19 8:40:00 [employer] Flumazenil 2018-04 No 0.2 mg, [place] 04-25 Route: l 14:41: IVP, PRN, Dosing Weight 87.9, kg, PRN Benzodiaze pine Reversal, Initial dose, Start date: 02/23/19 8:41:00 [employer], Duration: 30 day, Stop date: 03/25/19 8:40:00 [employer] Naloxone 2018-04 No 0.4 mg, Memori a 04-25 Route: l 14:41: IVP, [place] 00 Q2MIN, Dosing Weight 87.9, kg, PRN Narcotic Reversal, Start date: 02/23/19 8:41:00 [employer], Duration: 8 doses or times, Stop date: Limited # of times Ondansetron 2018-04 No 4 mg, Memor ia 04-25 Route: l 14:41: IVP, ONCE, Dosing Weight 87.9, kg, PRN Nausea & Vomiting, Start date: 02/23/19 8:41:00 [employer] propofol 2018-04 No Route: IV, Mem oria (ANES) 04-25 Drug form: l 14:35: INJ, ONCE, Stop date: 02/23/19 8:35:00 [employer] rocuronium 2018-04 No Route: IV, M emoria (ANES) 04-25 Drug form: l 14:35: INJ, ONCE, Master 00 Stop date: 02/23/19 8:35:00 [employer] fentaNYL 2018-04 No Route: IV, Mem oria (ANES) 04-25 Drug form: l 14:35: INJ, ONCE, Master 00 Stop date: 02/23/19 8:35:00 [employer] phenylephri 2018-04 No Route: IV, Memoria ne (ANES) 04-25 Drug form: l 14:35: INJ, ONCE, [place] 00 Stop date: 02/23/19 8:35:00 [employer] ceFAZolin 2018-04 No Route: IV, Me moria (ANES) 04-25 Drug form: l 14:30: INJ, ONCE, [place] 00 Stop date: 02/23/19 8:30:00 [employer] Adult 2018-04 No Notes: Memoria Parenteral 04-25 Must use l Nutrition 04:00: 1.2 micron He rmann 00 filter AND Peripheral Lipids (PPN not should not TPN) 2,160 be mL administer ed to patients who are allergic to soy, fish, egg or peanuts. Sodium 2018-04 No 1,000 mL, Memori a Chloride 04-24 500 ml/hr, l 0.9% 20:15: Infuse [place] (Bolus) IV 00 Over: 2 hr, Route: IV, 1,000, Drug form: INJ, ONCE, Priority: STAT, Dosing Weight 87.9 kg, Start date: 02/22/19 14:15:00 [employer], Stop date: 02/22/19 14:15:00 [employer], 0 Tylenol 2018-04 No Notes: Max [place] - acetaminop l 20:13: hen = 4000 Master 00 mg/day (4 gm/day). (Same as: Tylenol) Thyroxine 2018-04 No Notes: Memori a - (Same as: l 16:30: Synthroid) Master 00 Reconstitu te with 5ml of NS. Final concentrat ion = 20 micrograms /ml. Use immediatel y after reconstitu tion and discard remaining solution. Zosyn 2019-1 No Notes: Memoria 1-07 (Same as: l 16:00: Zosyn) Master Dosing based on Piperacill in component MEDICATION WASTE Product Size: 3375 mg Product Wasted: ___ mg Bisacodyl 2018-04 No Notes: Memori a 04-24 (Same As: l 09:59: Dulcolax, [place] 00 Bisco-Lax) Adult 2018-04 No Notes: Memoria Parenteral 04-24 Must use l Nutrition 04:00: 1.2 micron He rmann Custom - filter AND Peripheral Lipids (PPN not [...] [place] e 04-23 Route: l 13:30: IVP, [place] 00 Before Breakfast, Dosing Weight 87.9, kg, Start date: 02/21/19 7:30:00 [employer], Duration: 30 day, Stop date: 03/22/19 7:30:00 [employer] Protonix 2018-04 No Notes: For Mem oria [...] Memoria 04-22 Same as: l 15:00: Vimpat [place] 00 Labetalol 2018-04 No 20 mg, 4 [place] 1-05 mL, Route: l 07:35: IVP, Drug [place] 00 form: INJ, Q2H, Dosing Weight 87.9, kg, PRN Other -See Comment, Start date: 02/20/19 1:35:00 [employer], Duration: 30 day, Stop date: 03/22/19 1:34:00 [employer], 0 Vimpat 2018-04 No Notes: Memoria - Same as: l 00:04: Vimpat [place] 00 MEDICATION WASTE Product Size: 200 mg Product Wasted: ___ mg Fentanyl 2018-04 No Notes: Memoria 04-22 (Same as: l 00:04: Sublimaze) Master Preservat kemal free. Versed 2018-04 No Notes: Memoria 04-22 (Same as: l 00:04: Versed) [place] 00 MEDICATION WASTE Product Size: 2 mg Product Wasted: ___ mg Vimpat 2018-04 No Notes: Memoria 04-21 Same as: l 03:00: Vimpat Master 00 MEDICATION WASTE Product Size: 200 mg Product Wasted: ___ mg heparin 2018-04 No Notes: Memoria sodium, - porcine l porcine 22:00: heparin [place] 2500 UNT/ML 00 Injectable Solution Vimpat + [...] Hypertensi on, Start date: 02/18/19 11:40:00 [employer], Duration: 3 doses or times, Stop date: Limited # of times, 0 Thyroxine 2018-04 No Notes: Memori a 1-03 (Same as: l 15:45: Synthroid) Master 00 Reconstitu te with 5ml of NS. Final concentrat ion = 20 micrograms /ml. Use immediatel y after reconstitu tion and discard remaining solution. Dexmedetomi 2018-04 No Notes: Use Memoria dine 04-20 the l 15:43: following [place] 00 cdm for [id number]. Isolyte S 2018-04 No Notes: Memori a [...] 30 day, Stop date: 03/19/19 16:30:00 [employer], 2.05, m2, 0 normal 2018-04 No 2,000 mL, Memori a saline 0.9% 04-19 Rate: 50 l IV 2,000 mL 18:17: ml/hr, Herm ruddy 00 Infuse over: 40 hr, Route: IV, Dosing Weight 87.9 kg, Total Volume: 2,000, Start date: 02/17/19 13:17:00 CDT, Duration: 1 doses or times, Stop date: 02/18/19 13:16:00 [employer], 2.05, m2, 0 Ativan 2018-04 No Notes: Memoria - (Same as: l 17:15: Ativan) Master 00 Morphine 2018-04 No Notes: Memoria 04-19 (Same [...] or times, Stop date: 03/17/19 0:00:00 [employer], 0 NS 1,000 mL 2018-04 No 1,000 mL, M emoria 04-19 Rate: 40 l 08:00: ml/hr, [place] 00 Infuse over: 25 hr, Route: IV, Dosing Weight 89 kg, Total Volume: 1,000, Start date: 02/17/19 3:00:00 CDT, Duration: 30 day, Stop date: 03/19/19 2:59:00 [employer], 2.06, m2, 0 NS (Bolus) 2018-04 No 500 mL, [place] IV 02 500 ml/hr, l 07:47: Infuse Over: 1 [...] 30 day, Stop date: 03/19/19 2:46:00 [employer], 2.06, m2, 0 Norepinephr 2018-04 No Notes: Not Memoria ine 04-19 for direct l 07:46: administra Master 00 tion - DILUTE. Protect from light. (Same as:Levophe d). Administer by either central venous catheter or peripheral ly-inserte d central catheter (PICC) line. Lidocaine 2018-04 No Notes: Memori a Hydrochlori 04-19 (Same as: l de 0.02 03:53: Uro-Jet) Quoc n MG/MG 00 Topical Gel Dexmedetomi 2018-04 No Notes: Use Memoria dine 04-18 the l 21:54: following [place] 00 cdm for [id number]. heparin 2018-04 No Notes: Memoria sodium, 04-18 porcine l porcine 21:00: heparin [place] 2500 UNT/ML 00 Injectable Solution propofol 10 2018-04 No Notes: If M emoria mg/mL 04-18 Diprivan - l (Titrate.) 19:45: change Fabi nn IV 1,000 mg 00 bottle & tubing every 12 hr Per state nursing law propofol can only be given by a nurse if patient is intubated or being intubated (unless the nurse is a SIZE CHANGER). Same as: Diprivan Albuterol 2018-04 No Notes: SEE Me moria 0.83 MG/ML 04-18 RT l Inhalant 08:19: DOCUMENTAT Her addison Solution 00 ION (Same as: Proventil) Albuterol 2018-04 No Notes: Memori a 0.833 MG/ML 04-18 (Same as: l / 07:00: Duoneb) [place] Ipratropium 00 [place] 0.167 MG/ML Inhalant Solution [DuoNeb] Sodium 2018-04 No Notes: SEE Memor ia Chloride 3% 04-18 RT l inhalation 07:00: DOCUMENTAT H ermann solution 00 ION (Same as: Hypertonic Saline 3%, Inhalation ) Coreg 2018-04 No 3.125 mg, Memoria 04-18 Route: GT, l 02:00: Drug form: Master 00 TAB, Q12H, Dosing Weight 89, kg, Start date: 02/15/19 21:00:00 CDT, Duration: 30 day, Stop date: 03/17/19 9:00:00 [employer] normal 2018-04 No 1,000 mL, Memori a saline 0.9% Rate: 50 l IV 1,000 mL 21:50: ml/hr, Herm ruddy 00 Infuse over: 20 hr, Route: IV, Dosing Weight 89 kg, Total Volume: 1,000, Start date: 02/15/19 16:50:00 CDT, Duration: 30 day, Stop date: 03/17/19 16:49:00 [employer], 2.06, m2, 0 Versed 2018-04 No Notes: Memoria 0-31 (Same as: l 19:25: Versed) Master 00 MEDICATION WASTE Product Size: 2 mg Product Wasted: ___ mg Coreg 2018-04 No Notes: Memoria 0-31 Give with l 14:42: food. [place] 00 (Same As: Coreg) Docusate 2018-04 No Notes: Memoria 0-31 (Same as: l 14:00: Colace) [place] 00 sennosides, 2018-04 No Notes: [place] ALF 0-31 (Same as: l 14:00: Senokot) Master 00 Vitamin K1 2018-04 No Notes: Memor ia + Sodium 0-31 (Same as: l Chloride 14:00: Aqua-Mephy Her addison 0.9% IV 50 00 ton, mL Vitamin K) MEDICATION WASTE Product Size: 10 mg Product Wasted: ___ mg lansoprazol 2018-04 No Notes: [place] e 0-31 Take 1 l 14:00: hour [place] 00 before or 2 hours after meal; Expires in 14 days. Shake well before use. (Same as:Prevaci d) Compound ed Product - formulatio n not commercial ly available* * chlorhexidi 2018-04 No Notes: [place] ne 0-31 (Same As: l gluconate 14:00: Peridex) Herm ruddy 1.2 MG/ML 00 Mouthwash Thyroxine 2018-04 No Notes: Memori a 0-31 Take 1 l 11:30: hour [place] 00 before or 2 hours after meal; Enteral feeds may interefere with the absorption of this medication .(Same as:Levothr oid, Synthroid) ocular 2018-04 No Notes: Memoria lubricant 0-31 (Same as: l 11:00: Lacri-Lube [place] 00 , Puralube, Duratears Naturale, Artificial Tears, and Tears Again ) NS 1,000 mL 2018-04 No 1,000 mL, M emoria 0-31 Rate: 75 l 09:42: ml/hr, Master 00 Infuse over: 13.3 hr, Route: IV, Dosing Weight 89 kg, Total Volume: 1,000, Start date: 02/15/19 4:42:00 CDT, Duration: 30 day, Stop date: 03/17/19 4:41:00 [employer], 2.06, m2, 0 Acetaminoph 2018-04 No Notes: [...] 30 day, Stop date: 03/17/19 3:36:00 [employer], 0 Glucagon 2018-04 No 1 mg, Memoria 0-31 Route: IM, l 09:37: Drug form: Master 00 PDR/INJ, PRN, Dosing Weight 89, kg, PRN Blood Glucose Results, Start date: 02/15/19 4:37:00 CDT, Duration: 30 day, Stop date: 03/17/19 3:36:00 [employer], 0 Insulin 2018-04 No Notes: Memoria regular [...] 0-31 (Same as: l odium 09:37: Phos-NaK) [place] phosphate 00 Each 1.5 250 mg-280 gm pkt has mg-160 mg 250mg oral powder phosphorou for s. Mix reconstitut w/2.5oz ion water and stir. Magnesium 2018-04 No Notes: Memori a Sulfate 0-31 WASTE: F/P l 09:37: - Sink; E Master - Celles Trash Bin Magnesium 2018-04 No Notes: Memori a Oxide 0-31 (Same as: l 09:37: Mag-Ox Master 00 400) Magnesium oxide 601wc=746m g elemental magnesium Dose=____m g magnesium oxide (___mg elemental magnesium) Calcium 2018-04 No Notes: Memoria Gluconate 0-31 WASTE: F/P l 09:37: - Sink; E [place] - Municipal Trash Bin Calcium 2018-04 No Notes: Memoria Carbonate 0-31 (Same As: l 500 MG 09:37: Tums) [place] Chewable 00 Calcium Tablet Carbonate 500 mg = 200 mg elemental calcium Dose = mg calcium carbonate ( mg elemental calcium) Fentanyl 2018-04 No Notes: Memoria 0-31 (Same as: l 07:04: Sublimaze) [place] 00 Preservat kemal free. Fentanyl 2018-04 No [...] moria IV 0-31 1,000 l 05:51: ml/hr, Infuse Over: 1 hr, Route: IV, 1,000, Drug form: INJ, ONCE, Priority: STAT, Dosing Weight 90 kg, Start date: 02/15/19 0:51:00 CDT, Stop date: 02/15/19 0:51:00 CDT, 0 norepinephr 2018-04 No Route: IV, Memoria ine (ANES) 0-31 Drug form: l 02:11: INJ, ONCE, Stop date: 02/14/19 21:11:00 CDT Sodium 2018-04 [...] Memoria 0-30 Route: l 23:01: IVP, Drug [place] Form: SOLN, Dosing Weight 90, kg, ONCALL, STAT, Start date: 02/14/19 18:01:00 CDT, Duration: 1 doses or times, Dose = 2.2ml/kg, Max dose = 100ml -- "To be infused by Radiology Staff ONLY" Factor 2018-04 No Route: IV, Memor ia 2-7-9-10 0-30 Drug form: l Prothrombin 22:43: INJ, ONCE, [place] Complex 00 kg, Concentrate Priority: 2,100 unit [...] 0.9% 0-30 Route: l 22:05: IVP, Drug [place] Form: INJ, kg, PRN, PRN Line Flush, Start date: 02/14/19 17:05:00 CDT, Duration: 30 day, Stop date: 03/16/19 16:04:00 [employer], 0 warfarin 2018- Yes 8mg Take 8 mg Univ ers (COUMADIN) 8-30 by mouth ity o f 4 mg tablet 16:33: every [place] 29 evening. Medical Branch carvedilol 2019- Yes 3.125mg Take 3.125 [facility] (COREG) 8-30 [...] 29 (two) Medical times Branch daily. warfarin 0 Yes 8mg Take 8 mg Univ ers [...] 29 (two) Medical times Branch daily. carvedilol 0 Yes 3.125mg Take 3.125 [facility] (COREG) 8-30 [...] 29 (two) Medical times Branch daily. carvedilol 0 Yes 3.125mg Take 3.125 Univers (COREG) 8-30 [...] 8-16 mcg-Tuesday ity of tablet 00:00: through [place] [facility] and 75 mcg Branch on Tuesday, Tuesday and Tuesday levothyroxi Yes Take 50 Uni vers ne 50 mcg 8-16 mcg-Tuesday ity of tablet 00:00: through [place] [facility] and 75 mcg Branch on Tuesday, Tuesday and Tuesday levothyroxi 2020- No Take 50 [facility] [place] ne 50 mcg 8-16 02-29 mcg-Tuesday ity of tablet 00:00: 00:00 through [place] 00 : Medical and 75 mcg Branch on Tuesday, Tuesday and Tuesday levothyroxi 2019- No One table [facility] ne 50 mcg 4-24 08-16 (50 mcg) ity o f tablet 00:00: 00:00 Tuesday 00 :00 through [facility] Branch and one and half tablet (75 mcg) on Tuesday, Tuesday and Tuesday warfarin Yes 8mg Take 8 mg Univ ers (COUMADIN) 2-25 by mouth ity o f 4 mg tablet 14:57: every [place] 07 evening. Medical Branch carvedilol Yes 3.125mg [...] (two) Medical times Branch daily. lisinopril Yes [id number] 5mg Take 5 mg Univers 5 mg tablet 2-12 by mouth ity of 00:00: daily. [facility] Branch lisinopril Yes [id number] 5mg Take 5 mg Univers 5 mg tablet 2-12 by mouth ity of 00:00: daily. [facility] Branch lisinopril Yes [id number] 5mg Take 5 mg Univers 5 mg tablet 2-12 by mouth ity of 00:00: daily. [facility] lisinopril Yes [id number] 5mg Take 5 mg Univers 5 mg tablet 2-12 by mouth ity of 00:00: daily. [place] [facility] lisinopril 2017-0 Yes [id number] 5mg Take 5 mg Univers 5 mg tablet 2-12 by mouth ity of 00:00: daily. [facility] lisinopril 2017-0 Yes [id number] 5mg Take 5 mg Univers 5 mg tablet 2-12 by mouth ity of 00:00: daily. [facility] [facility]-0 Yes [id number] 5mg Take 5 mg Univers 5 mg tablet 2-12 by mouth ity of 00:00: daily. [facility] lisinopril 2017-0 Yes [id number] 5mg Take 5 mg Univers 5 mg tablet 2-12 by mouth ity of 00:00: daily. [place] [facility] lisinopril 2017-0 Yes [id number] 5mg Take 5 mg Univers 5 mg tablet 2-12 by mouth ity of 00:00: daily. [place] [facility] lisinopril 2017- Yes [id number] 5mg Take 5 mg Univers 5 mg tablet 2-12 by mouth ity of 00:00: daily. [facility] lisinopril 2017- Yes [id number] 5mg Take 5 mg Univers 5 mg tablet 2-12 by mouth ity of 00:00: daily. [place] [facility] lisinopril 2017-0 Yes [id number] 5mg Take 5 mg Univers 5 mg tablet 2-12 by mouth ity of 00:00: daily. [place] [facility] lisinopril 2017- Yes [id number] 5mg Take 5 mg Univers 5 mg tablet 2-12 by mouth ity of 00:00: daily. [facility] lisinopril 2017-0 Yes [id number] 5mg Take 5 mg Univers 5 mg tablet 2-12 by mouth ity of 00:00: daily. [place] [facility] lisinopril 2017-0 Yes [id number] 5mg Take 5 mg Univers 5 mg tablet 2-12 by mouth ity of 00:00: daily. [facility] lisinopril 2017-0 Yes [id number] 5mg Take 5 mg Univers 5 mg tablet 2-12 by mouth ity of 00:00: daily. [place] [facility] lisinopril 2017- Yes [id number] 5mg Take 5 mg Univers 5 mg tablet 2-12 by mouth ity of 00:00: daily. [place] [facility] lisinopril Yes [id number] 5mg Take 5 mg Univers 5 mg tablet 2-12 by mouth ity of 00:00: daily. [place] [facility] lisinopril Yes [id number] 5mg Take 5 mg Univers 5 mg tablet 2-12 by mouth ity of 00:00: daily. [place] [facility] lisinopril Yes [id number] 5mg Take 5 mg Univers 5 mg tablet 2-12 by mouth ity of 00:00: daily. [place] [facility] lisinopril Yes [id number] 5mg Take 5 mg Univers 5 mg tablet 2-12 by mouth ity of 00:00: daily. [address] lisinopril Yes [id number] 5mg Take 5 mg Univers 5 mg tablet 2-12 by mouth ity of 00:00: daily. [address] Immunizations Ordered Immunization Filled Immunization Date Status Commen ts Source Name Name influenza virus 2019-05-18 Completed [facility] vaccine, inactivated 03:21:00 [facility] pneumococcal 2019-05-18 Completed [facility] 13-valent vaccine 03:21:00 [place] Vital Signs Vital Name Observation Time Observation Value Comments Source HEIGHT 2019-09-21 00:00:00 160 cm WEIGHT 2019-09-21 00:00:00 68.04 kg Systolic blood 2021-01-07 13:46:00 146 mm[Hg] Univer sity of pressure [facility] Diastolic blood 2021-01-07 13:46:00 83 mm[Hg] Unive rsity of pressure [facility] Heart rate 2021-01-07 13:46:00 85 /min [facility] Body temperature 2021-01-07 13:46:00 36.56 Leela [facility] Respiratory rate 2021-01-07 13:46:00 18 /min [facility] Oxygen saturation in 2021-01-07 13:46:00 93 /min [facility] Arterial blood by [facility] Pulse oximetry Branch Body height 2021-01-02 19:11:00 [facility] 2021-01-02 19:11:00 78.472 kg [facility] BMI 2021-01-02 19:11:00 30.65 kg/m2 [facility] HEIGHT 2019-09-21 00:00:00 160 cm WEIGHT 2019-09-21 00:00:00 68.04 kg Heart Rate 2019-07-09 20:06:00 [facility] [place] Respitory Rate 2019-07-09 20:06:00 [facility] [place] Systolic (mm Hg) 2019-07-09 20:06:00 Rito rial [place] Diastolic (mm Hg) 2019-07-09 20:06:00 Mem orial [place] Heart Rate 2019-07-09 17:17:00 [facility] [place] Respitory Rate 2019-07-09 17:17:00 [facility] [place] Systolic (mm Hg) 2019-07-09 17:17:00 Rito rial [place] Diastolic (mm Hg) 2019-07-09 17:17:00 Mem orial [place] Heart Rate 2019-07-09 13:25:00 [facility] [place] Respitory Rate 2019-07-09 13:25:00 Memori al [facility] Systolic (mm Hg) 2019-07-09 13:25:00 Rito rial [place] Diastolic (mm Hg) 2019-07-09 13:25:00 Mem orial [facility] Temperature Oral (F) 2019-07-07 08:03:00 97.6 F [facility] Height 2019-07-07 07:58:00 167.64 cm [facility] Weight 2019-07-07 07:58:00 [facility] BMI Calculated 2019-07-07 07:58:00 Memori al [facility] Temperature Oral (F) 2019-05-27 14:00:00 97.7 F [facility] [place] Heart Rate 2019-05-27 14:00:00 [facility] [place] Respitory Rate 2019-05-27 14:00:00 Memori al [facility] Systolic (mm Hg) 2019-05-27 14:00:00 Rito rial [place] Diastolic (mm Hg) 2019-05-27 14:00:00 Mem orial Master Temperature Oral (F) 2019-05-27 10:00:00 97.4 F [facility] [place] Heart Rate 2019-05-27 10:00:00 [facility] Respitory Rate 2019-05-27 10:00:00 [facility] [place] Systolic (mm Hg) 2019-05-27 10:00:00 Rito rial Master Diastolic (mm Hg) 2019-05-27 10:00:00 Mem orial [place] Temperature Oral (F) 2019-05-27 06:01:00 98.5 F [facility] Heart Rate 2019-05-27 06:01:00 [facility] [place] Respitory Rate 2019-05-27 06:01:00 [facility] [place] Systolic (mm Hg) 2019-05-27 06:01:00 Rito rial [place] Diastolic (mm Hg) 2019-05-27 06:01:00 Mem orial [facility] Height 2019-05-17 17:16:00 157.48 cm [facility] Weight 2019-05-17 17:16:00 [facility] BMI Calculated 2019-05-17 17:16:00 [facility] [place] Height 2019-05-17 16:33:00 165.1 cm [facility] Weight 2019-05-17 16:33:00 [facility] BMI Calculated 2019-05-17 16:33:00 [facility] Heart Rate 2019-04-10 21:00:00 [facility] [place] Respitory Rate 2019-04-10 21:00:00 [facility] [place] Systolic (mm Hg) 2019-04-10 21:00:00 Rito rial [place] Diastolic (mm Hg) 2019-04-10 21:00:00 Mem orial [facility] Heart Rate 2019-04-10 17:11:00 [facility] Respitory Rate 2019-04-10 17:11:00 [facility] [place] Systolic (mm Hg) 2019-04-10 17:11:00 Rito rial Master Diastolic (mm Hg) 2019-04-10 17:11:00 Mem orial [place] Heart Rate 2019-04-10 13:45:00 [facility] Respitory Rate 2019-04-10 13:45:00 [facility] [place] Systolic (mm Hg) 2019-04-10 13:45:00 Rito rial Master Diastolic (mm Hg) 2019-04-10 13:45:00 Mem orial [facility] Height 2019-04-10 11:48:00 154.94 cm [facility] Weight 2019-04-10 11:48:00 [facility] [place] BMI Calculated 2019-04-10 11:48:00 [facility] [place] Height 2019-04-09 02:35:00 157.48 cm [facility] Weight 2019-04-09 02:35:00 [facility] [place] BMI Calculated 2019-04-09 02:35:00 Mem[facility] Temperature Oral (F) 2019-04-09 02:09:00 98.3 F [facility] [place] Weight 2019-04-08 20:55:00 [facility] Heart Rate 2019-04-06 21:34:00 [facility] [place] Respitory Rate 2019-04-06 21:34:00 Mem[facility] Systolic (mm Hg) 2019-04-06 21:34:00 Rito rial [place] Diastolic (mm Hg) 2019-04-06 21:34:00 Mem orial [place] Heart Rate 2019-04-06 17:14:00 [facility] [place] Respitory Rate 2019-04-06 17:14:00 [facility] [place] Systolic (mm Hg) 2019-04-06 17:14:00 Rito rial Master Diastolic (mm Hg) 2019-04-06 17:14:00 Mem orial [facility] Heart Rate 2019-04-06 13:46:00 [facility] [place] Respitory Rate 2019-04-06 13:46:00 Memori [facility] Systolic (mm Hg) 2019-04-06 13:46:00 Rito rial [place] Diastolic (mm Hg) 2019-04-06 13:46:00 Mem orial [place] Temperature Oral (F) 2019-04-05 05:50:00 98.5 F [facility] Temperature Oral (F) 2019-04-04 21:32:00 98.6 F [facility] Temperature Oral (F) 2019-04-04 17:35:00 98.7 F [facility] Height 2019-04-02 12:35:00 177.8 cm [facility] [place] Height 2019-03-30 11:56:00 177.8 cm [facility] [place] Height 2019-03-29 11:00:00 177.8 cm [facility] Weight 2019-03-29 06:16:00 [facility] [place] BMI Calculated 2019-03-29 06:16:00 [facility] Weight 2019-03-29 05:15:00 [facility] [place] BMI Calculated 2019-03-29 05:15:00 Memori al Master BMI Calculated 2019-03-29 02:23:00 [facility] [place] Weight 2019-03-29 02:23:00 [facility] [place] Respitory Rate 2019-03-29 01:12:00 [facility] Heart Rate 2019-03-29 01:12:00 [facility] Systolic (mm Hg) 2019-03-29 01:12:00 Irto rial [place] Diastolic (mm Hg) 2019-03-29 01:12:00 Mem o[facility] Systolic (mm Hg) 2019-03-28 21:22:00 Rito rial [place] Diastolic (mm Hg) 2019-03-28 21:22:00 Mem orial [facility] Heart Rate 2019-03-28 21:22:00 [facility] Respitory Rate 2019-03-28 21:22:00 [facility] [place] Temperature Oral (F) 2019-03-28 21:22:00 98.2 F [facility] Height 2019-03-28 21:22:00 177.8 cm [facility] BMI Calculated 2019-03-28 21:22:00 [facility] [place] Weight 2019-03-28 21:22:00 [facility] [place] Heart Rate 2019-03-09 18:01:00 [facility] [place] Respitory Rate 2019-03-09 18:01:00 [facility] [place] Systolic (mm Hg) 2019-03-09 18:01:00 Rito rial [place] Diastolic (mm Hg) 2019-03-09 18:01:00 Mem orial [place] Heart Rate 2019-03-09 13:22:00 [facility] Respitory Rate 2019-03-09 13:22:00 [facility] Systolic (mm Hg) 2019-03-09 13:22:00 Rito rial [place] Diastolic (mm Hg) 2019-03-09 13:22:00 Mem o[facility] Heart Rate 2019-03-09 10:23:00 [facility] [place] Respitory Rate 2019-03-09 10:23:00 [facility] [place] Systolic (mm Hg) 2019-03-09 10:23:00 Rito rial [place] Diastolic (mm Hg) 2019-03-09 10:23:00 Mem [facility] [place] Temperature Oral (F) 2019-03-08 10:16:00 98.4 F [facility] Temperature Oral (F) 2019-03-08 06:04:00 97.9 F [facility] Temperature Oral (F) 2019-03-08 02:23:00 97.9 F [facility] [place] Height 2019-03-07 04:48:00 162.56 cm [facility] Weight 2019-03-07 04:48:00 [facility] [place] BMI Calculated 2019-03-07 04:48:00 [facility] Height 2019-03-06 21:51:00 170.18 cm [facility] [place] BMI Calculated 2019-03-06 21:51:00 [facility] [place] Weight 2019-03-06 21:51:00 [facility] [place] Heart Rate 2019-02-28 21:30:00 [facility] [place] Respitory Rate 2019-02-28 21:30:00 [facility] [place] Systolic (mm Hg) 2019-02-28 21:30:00 Rito rial [place] Diastolic (mm Hg) 2019-02-28 21:30:00 Mem orial [place] Temperature Oral (F) 2019-02-28 18:00:00 98.3 F [facility] [place] Heart Rate 2019-02-28 18:00:00 [facility] Respitory Rate 2019-02-28 18:00:00 Mem[facility] Systolic (mm Hg) 2019-02-28 18:00:00 Rito rial [place] Diastolic (mm Hg) 2019-02-28 18:00:00 Mem orial [place] Temperature Oral (F) 2019-02-28 13:33:00 97.6 F [facility] Heart Rate 2019-02-28 13:33:00 [facility] Respitory Rate 2019-02-28 13:33:00 [facility] [place] Systolic (mm Hg) 2019-02-28 13:33:00 Rito rial Master Diastolic (mm Hg) 2019-02-28 13:33:00 Mem o[facility] [place] Temperature Oral (F) 2019-02-28 01:27:00 98.8 F [facility] [place] Height 2019-02-18 11:00:00 167.64 cm [facility] [place] Height 2019-02-17 17:08:00 167.64 cm [facility] BMI Calculated 2019-02-17 17:08:00 [facility] Weight 2019-02-17 17:08:00 [facility] Height 2019-02-17 10:41:00 167.64 cm [facility] Weight 2019-02-15 08:54:00 Nicole Thao BMI Calculated 2019-02-15 08:54:00 Obed Escobedo Weight 2019-02-15 08:16:00 Nicole Thao BMI Calculated 2019-02-15 08:16:00 Obed Escobedo Procedures Procedure Date / Time Performing Source Performed Clinician PHACOEMULSIFICATION OF 2021-01-07 Leroy Bueno [facility] CATARACT WITH INTRAOCULAR 15:50:00 Medica l Branch LENS IMPLANT COVID-19 (ID NOW RAPID 2021-01-05 Leroy Bueno [facility] TESTING) 15:12:00 Medical Branch CONSENT/REFUSAL FOR DIAGNOSIS 2020-12-31 Doctor Unassigned, [facility] AND TREATMENT 15:17:48 [facility] ASSIGNMENT OF BENEFITS 2020-12-31 Doctor Unassigned, [facility] 15:17:33 [facility] PATIENT QUESTIONNAIRE 2020-11-25 Doctor Unassigned, [facility] 05:01:00 [facility] EXTERNAL PROVIDER RECORDS 2020-02-20 Doctor Unassigned, [facility] 06:01:00 [facility] ASSIGNMENT OF BENEFITS 2019-12-28 Doctor Unassigned, [facility] 19:33:50 [facility] [U] XRAY THORACOLUMBAR SPINE 2019-04-25 [facility] AP AND LAT. [id number] 00:00:00 Physicians [U] XRAY SPINE CERVICAL 2 OR 2019-04-25 [facility] 3 VWS [id number] 00:00:00 Physicians NO SHOW OR MISSED APPOINTMENT 2018-12-15 Doctor Unassigned, [facility] POLICY ACKNOWLEDGEMENT 15:49:16 [facility] Craniotomy and removal of [...] 00:00:00 (1 of 1 - Medical Center [id number] PCV13) [code = PNEUMOCOCCAL 65+ YRS (1 of 1 - [id number] PCV13)] Future Scheduled 1997 PNEUMOCOCCAL 65+ YRS [facility] - Test 00:00:00 (1 of 1 - Medical Center [id number] PCV13) [code = PNEUMOCOCCAL 65+ YRS (1 of 1 - [id number] PCV13)] Future Scheduled 1982 SHINGLES VACCINES (1 [...] Date/Time Type Type Clinicians Facility Department ID 2021-08-[address] [facility] Internal [id number] [facility] 01:59:31 [facility] 2021-02-16 Outpatient R KRISTINA BUENO OPH [id number] Univers 19:39:53 [facility] 2019-09-21 Inpatient UR JOSE, [facility] Neurology [id number] [facility] 21:50:00 [facility] 2019-05-17 Inpatient MH MED [id number] [facility] W 10:14:00 2019-04-06 Inpatient 3 [place], ENCS[facility] BIT [id number] [facility]L 20:30:00 HEIDY [id number] 2021-06-04 2021-06-04 Outpatient ERICKSON_R [facility] [id number] [place] 12:18:00 12:18:00 [facility] 2021-06-04 2021-06-04 Outpatient Amrit [facility] [id number] 00:00:00 00:00:00 Anthony [id number] [place] [id number] 2021-02-24 Outpatient ERICKSON_R [facility] [id number] [place] 02:00:00 02:00:00 109 [facility] 2021-01-23 2021-01-23 Outpatient ERICKSON_R [facility] [id number] [place] 10:31:00 10:31:00 008 [facility] 2021-01-20 2021-01-20 Outpatient ERICKSON_R [facility] [id number] - [place] 01:51:00 01:51:00 005 [facility] 2021-01-13 2021-01-13 Outpatient ERICKSON_R [facility] [id number] - [place] 11:48:00 11:48:00 928 [facility] 2021-01-13 2021-01-13 Outpatient Amrit [facility] [id number] 00:00:00 00:00:00 Anthony [id number] [place] [id number] 2021-01-07 2021-01-[address] [facility] 1.2.840.114 [id number] Univers 10:19:00 11:01:00 Leroy Collins [id number] [phone] [address] 2021-01-05 2021-01-05 Laboratory Only, Adc Test [facility] 1.2.840. 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 2020-12-31 2020-12-31 Outpatient R LETITIA, [facility] [id number] Univers 10:30:00 10:30:[address] [facility] 2020-12-31 2020-12-31 Orders Doctor MICHEAL 1.2.840.114 [id number] Univers 00:00:00 00:00:00 Only Unassigned, VALERIE 350.1.13.10 ity of [place] [facility] 4.2.7.2.686 [employer] as [phone] [address] 2020-12-29 2020-12-29 Outpatient R [facility] [id number] Univers 16:00:00 16:00:[id number] [facility] 2020-12-16 2020-12-16 Outpatient ERICKSON_R [facility] [id number] [place] 01:12:00 01:12:00 831 [facility] 2020-11-25 2020-11-25 Orders Doctor MICHEAL 1.2.840.114 [id number] Univers 00:00:00 00:00:00 Only Unassigned, VALERIE 350.1.13.10 ity of [place] [facility] 4.2.7.2.686 [employer] as [phone] [address] 2020-11-11 2020-11-11 Outpatient ERICKSON_R [facility] [id number] [place] 12:57:00 12:57:00 727 [facility] 2020-10-09 2020-10-09 Outpatient ERICKSON_R [facility] [id number] [place] 03:28:00 03:28:00 624 [facility] 2020-10-09 2020-10-09 Outpatient Marcus, [facility] [id number] 00:00:00 00:00:00 Anthony [id number] [place] [id number] 2020-10-07 2020-10-07 Outpatient ERICKSON_R [facility] [id number] [place] 01:21:00 01:21:00 622 [facility] 2020-09-03 2020-09-03 Outpatient ERICKSON_R [facility] [id number] [place] 01:02:00 01:02:00 519 [facility] 2020-06-30 2020-06-30 Outpatient ERICKSON_R [facility] [id number] [place] 11:39:00 11:39:00 315 [facility] 2020-06-30 2020-06-30 Outpatient Amrit [facility] [id number] 00:00:00 00:00:00 Anthony [id number] [place] [id number] 2020-06-13 2020-06-[address] [facility] [id number] [facility] 00:00:00 00:00:00 Emeterio Collins 350.1.13.10 [place] [phone] Al dical [address] 2020-06-13 2020-06-[address] [facility] 1.2.204.808 [id number] 00:00:00 00:00:00 Emeterio Collins 350.1.13.10 [place] 4.2.7.2.[phone] 2020-05-15 2020-05-15 Outpatient ERICKSON_R [facility] [id number] [place] 10:32:00 10:32:00 128 [facility] 2020-05-12 2020-05-12 Outpatient ERICKSON_R [facility] [id number] [place] 02:12:00 02:12:00 125 [facility] 2020-05-12 2020-05-12 Outpatient Amrit [facility] [id number] 00:00:00 00:00:00 Anthony [id number] [place] [id number] 2020-05-02 2020-05-02 Outpatient ERICKSJEAN_R [facility] [id number] [place] 02:48:00 02:48:00 115 [facility] 2020-02-22 2020-02-22 Outpatient R EDWARDO, [facility] [id number] Univers 11:30:00 11:30:00 EMETERIO ity [facility] 2020-02-22 2020-02-22 Outpatient R EDWARDO, [facility] [id number] Univers 08:30:00 08:30:00 EMETERIO ity [facility] 2020-02-20 2020-02-20 Orders Doctor MICHEAL 1.2.840.114 [id number] Univers 00:00:00 00:00:00 Only UnassVALERIE العلي 350.1.13.10 ity of [place] [facility] 4.2.7.2.686 [employer] as [phone] [facility] [address] [place] 2019-12-31 2019-12-31 Letter MICHEAL Alves 1.2.840.114 [id number] Univers 00:00:00 00:00:00 (Out) Shaniqua PADILLA 350.1.13.10 it y of [facility] 4.2.7.2.686 [employer] as [phone] [facility] [address] [place] 2019-12-28 2019-12-28 Laboratory Only, Adc Test [facility] 1.2.840. 114 [id number] Univers 14:33:48 14:48:48 Only Yelena Guardado 350.1.13.10 ity [facility] 4[place] [phone] [facility] [address] [place] 2019-12-28 2019-12-28 Outpatient R [facility] [id number] Univers 13:45:00 13:45:00 [id number] ity [facility] 2019-12-28 2019-12-28 Outpatient R DEMETRIA [facility] [id number] Univers 13:45:00 13:45:00 YELENA ity [facility] 2019-12-28 2019-12-28 Orders Doctor [place] 1.2.840.114 [id number] Univers 00:00:00 00:00:00 Only UnassignedCHINAY 350.1.13.10 ity of [facility] 4.2.7.2.686 [place] as [phone] [address] 2019-09-07 2019-09-07 Outpatient R EDWARDO [facility] [id number] Univers 16:00:00 16:00:[address] [facility] 2019-08-17 2019-08-[address] [facility] 1.2.840.114 [id number] Univers 08:22:58 16:26:12 ne Visit Emeterio Collins 350.1.13.10 [place] [phone] Al dic[address] 2019-08-17 2019-08-17 Ambulatory nullFlavo [facility] [id number] Memoria 13:30:00 13:30:00 Pre-Reg r Urology 00 l Kanwal [facility] 2019-08-17 2019-08-17 Outpatient Julia LEACH [facility] [id number] Univers 13:00:00 13:00:[id number] [facility] 2019-08-17 2019-08-17 [facility] [id number] Univers 13:00:00 13:00:00 [facility] 2019-07-08 2019-07-09 Inpatient nullFlavo [facility] [id number] Memoria 14:41:00 22:47:00 [place] 81 l Kanwal Dunlap 2019-07-08 2019-07-09 Inpatient E BRYN FB MED [id number] FB 09:41:00 17:47:00 SANAFRANCISCOSAMSON 2019-07-09 2019-07-09 [facility] [id number] Univers 00:00:00 00:00:00 Emeterio Collins 350.1.13.10 [place] [phone] Al dical [address] 2019-07-09 2019-07-[address] [facility] [id number] Univers 00:00:00 00:00:00 Emeterio Collins 350.1.13.10 [place] [phone] Al dical nal 220 [facility] 2019-06-16 2019-06-16 [facility] [id number] Univers 00:00:00 00:00:00 Emeterio Collins 350.1.13.10 [place] [phone] Al dical nal 220 [facility] 2019-06-15 2019-06-15 [facility] [id number] [id number] Univers 00:00:00 00:00:00 Emeterio Collins 350.1.13.10 i [place] [phone] Al dical nal 220 [facility] 2019-05-17 2019-05-27 Inpatient nullFlavo [facility] [id number] Memoria 16:14:00 20:19:00 julia Thao 30 l [facility] 2019-04-25 2019-04-25 [id number] 07:30:00 08:15:47 2019-04-25 2019-04-25 [facility] LEYLA VOSS Orthopedics [id number] Univers 07:30:00 07:30:00 t; Eric FULLER at [facility], [facility] [place][Note 2] Eric FULLER Medicine [facility] 2019-04-08 2019-04-10 Inpatient nullFlavo [facility] [id number] Memoria 20:39:53 23:44:00 julia Thao 03 l [facility] 2019-04-08 2019-04-08 Inpatient E MHFB MED [id number] [facility]FB 19:32:00 14:39:00 2019-03-29 2019-04-07 Inpatient nullFlavo [facility] [id number] Mem[facility] 02:20:21 01:41:00 julia Thao 02 l [facility] 2019-03-28 2019-03-29 Emergency nullFlavo [facility] [id number] Memoria 21:21:29 01:49:00 [place] 01 l [facility] 2019-03-28 2019-03-28 Inpatient E [facility] [id number] [facility] 22:05:00 20:20:00 2019-03-28 2019-03-28 Emergency E MHBL MHBL [id number] MHBL 15:21:00 15:21:00 2019-03-19 2019-03-20 Outpt Diag nullFlavo [facility] [id number] Memoria 22:43:00 05:59:00 Services r Outpatient 00 l Imaging [facility] 2019-03-06 2019-03-09 Inpatient nullFlavo [facility] [id number] Memoria 21:44:12 21:46:00 [place] 00 l [facility] 2019-03-09 2019-03-06 Inpatient E M[facility]H M[facility]H [id number] [facility] 11:09:00 20:28:00 2019-02-14 2019-02-28 Inpatient nullFlavo [facility] [id number] Memoria 22:00:00 21:50:00 r [place] 67 l [facility] 2019-02-14 2019-02-14 Outpatient [facility] RIC [id number] [facility] 18:48:00 18:48:00 2019-02-14 2019-02-14 Inpatient E [facility] [id number] [facility] 18:06:00 17:02:00 2018-12-15 2018-12-15 [employer]ter 1, Adc Lab [facility] [id number] [facility] 12:37:23 12:52:23 Visit Emeterio Leach [id number] ity of [place] [id number] [facility] [id number] [facility] [address] 2018-12-15 2018-12-15 Orders Doctor MICHEAL [id number] [facility] 00:00:00 00:00:00 Only Unassigned, VALERIE [id number] ity of [facility] [id number] [employer] [id number] [facility] [address] 2018-12-01 2018-12-01 Juan Antonio Gallardo [facility] [id number] 00:00:00 00:00:00 Dolores Collins 350.1.13.10 i ty of Topher Stewart 4.2.7.2.686 Festus Ingramisidoro [id number] Al dical nal [address] Results Test Description Test Time Test Comments Results Result Comments Source POCT-GLUCOSE METER 2019-09-28 12:28:00 Test Item Value Reference Range Interpretation Comme nts POC-GLUCOSE METER (BEAKER) 99 mg/dL 70-110 : TESTED AT [facility] [address] [facility] (test code = 1538) [facility], [address]: Fish Drier/Techni amada ID = [id number] for AKINSONU, ELICEO POCT-GLUCOSE [id number] 08:13:00 Test Item Value Reference Range Interpretation Comments POC-GLUCOSE METER 79 mg/dL 70-110 : TESTED A [facility] 6720 (BEAKER) (test code = TODD Dumont [facility], 1538) [address]: Fish Drier/Techni amada ID = [id number] for RICHARD BETARIZ, ELICEO [id number] 06:39:00 Test Item Value Reference Range Interpretation Comments PHOSPHORUS (BEAKER) (test code = 3.2 mg/dL 2.3-4.7 604) Fish Drier ID - GRISEL [id number] 06:39:00 Test Item Value Reference Range Interpretation Comments MAGNESIUM (BEAKER) (test code = 1.7 mg/dL 1.6-2.6 627) Fish Drier ID - GRISEL MBASIC METABOLIC [id number] 06:39:00 Test Item Value Reference Range Interpretation [...] S NOT APPLICABLE FOR DIALYSIS PATIEN TS. Fish Drier ID - GRISEL MCBC W/PLT COUNT & AUTO [id number] 06:02:00 Test Item Value Reference Range Interpretation [...] PERCENT (BEAKER) (test code = 2801) BLOOD [id number] 01:00:00 Test Item Value Reference Range Interpretation Comments CULTURE (BEAKER) (test No growth in 5 days code = 1095) BLOOD [id number] 01:00:00 Test Item Value Reference Range Interpretation Comments CULTURE (BEAKER) (test No growth in 5 days code = 1095) POCT-GLUCOSE [id number] 22:32:00 Test Item Value Reference Range Interpretation Comments POC-GLUCOSE METER 106 mg/dL 70-110 : TESTED A T [facility] 6720 (BEAKER) (test code = [facility], 1538) [address]: Fish Drier/Techni amada ID = [id number] for DE NNIS, JOSE POCT-GLUCOSE [id number] 17:30:00 Test Item Value Reference Range Interpretation Comments POC-GLUCOSE METER 92 mg/dL 70-110 : TESTED A T [facility] 6720 (BEAKER) (test code = [facility], 1538) [address]: Fish Drier/Techni amada ID = [id number] for DELFIN GANNON RAD, CHEST, 1 VIEW, NON [id number] 16:16:00Reason for exam:->sobShould this be performed at [...] Cervantes MDReport Verified Date/Time: 09/27/2019 16:16:19 SARS-COV2/RT-PCR ([facility])2019-09-27 16:07:00 Test Item Value Reference Range Interpretation Comments SARS-COV2/RT-PCR (test code = Negative Not Detected, Negative 1055700) SARS-COV-2 PERFORMING LAB CPL (test code = 6663267) POCT-GLUCOSE [id number] 11:12:00 Test Item Value Reference Range Interpretation Comments POC-GLUCOSE METER 121 mg/dL 70-110 H : TESTED A T [facility] 6720 (BEAKER) (test code = [facility], 1538) [address]: Fish Drier/Techni amada ID = [id number] for HU NT, DELFIN [id number] 07:56:00 Test Item Value Reference Range Interpretation Comments PHOSPHORUS (BEAKER) (test code = 3.4 mg/dL 2.3-4.7 604) Fish Drier ID - PIAYA [id number] 07:56:00 Test Item Value Reference Range Interpretation Comments MAGNESIUM (BEAKER) (test code = 1.8 mg/dL 1.6-2.6 627) Fish Drier ID - PIAYA LPOCT-GLUCOSE [id number] 07:38:00 Test Item Value Reference Range Interpretation Comments POC-GLUCOSE METER 89 mg/dL 70-110 : TESTED A T [facility] 6720 (BEAKER) (test code = [facility], 1538) [address]: Fish Drier/Techni amada ID = [id number] for GANNON , DELFIN POCT-GLUCOSE [id number] 06:36:00 Test Item Value Reference Range Interpretation Comments POC-GLUCOSE METER 70 mg/dL 70-110 : TESTED A T [facility] 6720 (BEAKER) (test code = [facility], 1538) [address]: Fish Drier/Techni amada ID = [id number] for FER URIAS JOSE POCT-GLUCOSE [id number] 01:06:00 Test Item Value Reference Range Interpretation Comments POC-GLUCOSE METER 94 mg/dL 70-110 : TESTED A T [facility] 6720 (BEAKER) (test code = [facility], 1538) [address]: Fish Drier/Techni amada ID = [id number] for JOSE JASSO POCT-GLUCOSE [id number] 17:53:00 Test Item Value Reference Range Interpretation Comments POC-GLUCOSE METER 94 mg/dL 70-110 : TESTED A T [facility] 6720 (BEAKER) (test code = [facility], 1538) [address]: Fish Drier/Techni amada ID = [id number] for BROW N, SREE POCT-GLUCOSE [id number] 15:47:00 Test Item Value Reference Range Interpretation Comments POC-GLUCOSE METER 123 mg/dL 70-110 H : TESTED A T [facility] 6720 (BEAKER) (test code = [facility], 1538) [address]: Fish Drier/Techni amada ID = [id number] for BR OWN, SREE [id number] 06:57:00 Test Item Value Reference Range Interpretation Comments PHOSPHORUS (BEAKER) (test code = 2.8 mg/dL 2.3-4.7 604) Fish Drier ID - GRISEL [id number] 06:57:00 Test Item Value Reference Range Interpretation Comments MAGNESIUM (BEAKER) (test code = 1.7 mg/dL 1.6-2.6 627) Fish Drier ID - GRISEL MPOCT-GLUCOSE [id number] 17:47:00 Test Item Value Reference Range Interpretation Comments POC-GLUCOSE METER 79 mg/dL 70-110 : TESTED A T [facility] 6720 (BEAKER) (test code = [facility], 1538) [address]: Fish Drier/Techni amada ID = [id number] for BROW N, SREE POCT-GLUCOSE [id number] 11:35:00 Test Item Value Reference Range Interpretation Comments POC-GLUCOSE METER 96 mg/dL 70-110 : TESTED A T [facility] 6720 (BEAKER) (test code = [facility], 1538) [address]: Fish Drier/Techni amada ID = [id number] for BROW N, SREE POCT-GLUCOSE [id number] 06:33:00 Test Item Value Reference Range Interpretation Comments POC-GLUCOSE METER 105 mg/dL 70-110 : TESTED A T [facility] 6720 (BEAKER) (test code = [facility], 1538) [address]: Fish Drier/Techni amada ID = [id number] for DO VE, CHEKARA [id number] 06:32:00 Test Item Value Reference Range Interpretation Comments PHOSPHORUS (BEAKER) (test code = 2.6 mg/dL 2.3-4.7 604) Fish Drier ID - GRISEL [id number] 06:32:00 Test Item Value Reference Range Interpretation Comments MAGNESIUM (BEAKER) (test code = 1.7 mg/dL 1.6-2.6 627) Fish Drier ID - GRISEL MPOCT-GLUCOSE [id number] 00:14:00 Test Item Value Reference Range Interpretation Comments POC-GLUCOSE METER 126 mg/dL 70-110 H : TESTED A T [facility] 6720 (BEAKER) (test code = [facility], 1538) [address]: Fish Drier/Techni amada ID = [id number] for DO VE, CHEKARA POCT-GLUCOSE [id number] 18:19:00 Test Item Value Reference Range Interpretation Comments POC-GLUCOSE METER 86 mg/dL 70-110 : TESTED A T [facility] 6720 (BEAKER) (test code = [facility], 1538) [address]: Fish Drier/Techni amada ID = [id number] for RICHARD BEATRIZ, ELICEO POCT-GLUCOSE [id number] 14:12:00 Test Item Value Reference Range Interpretation Comments POC-GLUCOSE METER 114 mg/dL 70-110 H : TESTED A T [facility] 6720 (BEAKER) (test code = [facility], 1538) [address]: Fish Drier/Techni amada ID = [id number] for AK INSONU, ELICEO POCT-GLUCOSE [id number] 06:21:00 Test Item Value Reference Range Interpretation Comments POC-GLUCOSE METER 109 mg/dL 70-110 : TESTED A T [facility] 6720 (BEAKER) (test code = [facility], 1538) [address]: Fish Drier/Techni amada ID = [id number] for DE NNIS, JOSE CBC W/PLT COUNT & AUTO [id number] 05:16:00 Test Item Value Reference Range Interpretation [...] 0-1 PERCENT (BEAKER) (test code = 2801) [id number] 05:15:00 Test Item Value Reference Range Interpretation Comments PHOSPHORUS (BEAKER) (test code = 2.3 mg/dL 2.3-4.7 604) Fish Drier ID - GRISEL [id number] 05:15:00 Test Item Value Reference Range Interpretation Comments MAGNESIUM (BEAKER) (test code = 1.8 mg/dL 1.6-2.6 627) Fish Drier ID - GRISEL MBASIC METABOLIC [id number] 05:15:00 Test Item Value Reference Range Interpretation [...] S NOT APPLICABLE FOR DIALYSIS PATIEN TS. Fish Drier ID - GRISEL MPOCT-GLUCOSE [id number] 23:34:00 Test Item Value Reference Range Interpretation Comments POC-GLUCOSE METER 108 mg/dL 70-110 : TESTED A T [facility] 6720 (BEAKER) (test code = [facility], 1538) [address]: Fish Drier/Techni amada ID = [id number] for DE NNIS, JOSE POCT-GLUCOSE [id number] 18:08:00 Test Item Value Reference Range Interpretation Comments POC-GLUCOSE METER 136 mg/dL 70-110 H : TESTED A T [facility] 6720 (BEAKER) (test code [facility], = 1538) [address]: Fish Drier/Techni amada ID = [id number] for JANNIE MORENOIGHEREDA URINALYSIS [id number] 14:06:00 Test Item Value Reference Range Interpretation Comments RBC UA (BEAKER) (test code = 519) 6 /HPF WBC UA (BEAKER) (test code = 520) 58 /HPF MUCUS (BEAKER) (test code = 1574) Occasional SQUAMOUS EPITHELIAL (BEAKER) (test < /HPF code = 516) Fish Drier ID - techPOCT-GLUCOSE [id number] 14:04:00 Test Item Value Reference Range Interpretation Comments POC-GLUCOSE METER 99 mg/dL 70-110 : TESTED A T [facility] 6720 (BEAKER) ([facility] = [facility], 1538) [address]: Fish Drier/Techni amada ID = [id number] for TAYLORL EY, ABUNDIO-GAYATHRI URINALYSIS WITH MICROSCOPIC IF [id number] 13:55:00 Test Item Value Reference Range Interpretation [...] = 463) SOURCE(BEAKER) (test code = 2795) Fish Drier ID - [auto]POCT-GLUCOSE [id number] 13:04:00 Test Item Value Reference Range Interpretation Comments POC-GLUCOSE METER 111 mg/dL 70-110 H : TESTED A T [facility] 6720 (BEAKER) ([facility], = 1538) [address]: Fish Drier/Techni amada ID = [id number] for PADMINI MORENO [id number] 12:43:00 Test Item Value Reference Range Interpretation Comments RPR SCREEN (BEAKER) (test code = Nonreactive Nonreactive 420) POCT-GLUCOSE [id number] 07:42:00 Test Item Value Reference Range Interpretation Comments POC-GLUCOSE METER 124 mg/dL 70-110 H : TESTED A T [facility] 6720 (BEAKER) (test code = TODD Dumont [facility], 1538) [address]: Fish Drier/Techni amada ID = [id number] for DE NNIS, JOSE VITAMIN D, [id number] 07:20:00 Test Item Value Reference Range Interpretation Comments VITAMIN D 25-OH (BEAKER) (test 22.1 ng/mL 6.6-49.9 code = 2764) Effective 01/26/2017: Reference Range ChangeNew: 6.6-49.9 ng/mL Previous: 13.0-47.8 ng/mLRecommended Vitamin D Target Range: 30.0-40.0 ng/mLOperator ID - [id number] 06:46:00 Test Item Value Reference Range Interpretation Comments PHOSPHORUS (BEAKER) (test code = 2.4 mg/dL 2.3-4.7 604) Fish Drier ID - GRISEL [id number] 06:46:00 Test Item Value Reference Range Interpretation Comments MAGNESIUM (BEAKER) (test code = 1.6 mg/dL 1.6-2.6 627) Fish Drier ID - GRISEL MBASIC METABOLIC [id number] 06:46:00 Test Item Value Reference Range Interpretation [...] S NOT APPLICABLE FOR DIALYSIS PATIEN TS. Fish Drier ID - GRISEL MPOCT-GLUCOSE [id number] 00:27:00 Test Item Value Reference Range Interpretation Comments POC-GLUCOSE METER 103 mg/dL 70-110 : TESTED A T [facility] 6720 (NATY) (test code = TODD Dumont [facility], 1538) [address]: Fish Drier/Techni amada ID = [id number] for JOSE UREÑA POCT-GLUCOSE [id number] 17:26:00 Test Item Value Reference Range Interpretation Comments POC-GLUCOSE METER 97 mg/dL 70-110 : Notified RN/MD: TESTED (NATY) (test code = AT [facility] 67[address] [facility] 1538) [facility], 770 30: Fish Drier/Techni amada ID = [id number] for CHANTELL AMEZCUA PAULEN HIV-1 ANTIGEN WITH HIV-1/2 [id number] 17:26:00 Test Item Value Reference Range Interpretation Comments HIV-1 ANTIGEN WITH HIV 1\\T\\2 Nonreactive Nonreactive ANTIBODY (2) (NATY) (test code = 2586) Fish Drier ID - DBRAD, CHEST, 1 VIEW, NON [id number] 16:47:00Reason for exam:- >eval for pnaShould this [...] MDReport Verified Date/Time: 09/22/2019 16:47:36 Reading Location: [address] Body Reading Room POCT-GLUCOSE [id number] 12:05:00 Test Item Value Reference Range Interpretation Comments POC-GLUCOSE METER 53 mg/dL 70-110 L : TESTED A T [facility] 6720 (BEAKER) (test code = TODD Dumont [facility], 1538) [address]: Fish Drier/Techni amada ID = [id number] for ELICEO STANLEY T4, [id number] 08:52:00 Test Item Value Reference Range Interpretation Comments FREE T4 (BEAKER) (test code = 655) 0.94 ng/dL 0.70-1.48 Fish Drier ID - JANAE CHEMOGLOBIN [id number] 08:43:00 Test Item Value Reference Range Interpretation Comments HEMOGLOBIN A1C (BEAKER) (test code = 5.4 % 4.3-6.1 368) VITAMIN B12 AND [id number] 08:20:00 Test Item Value Reference Range Interpretation Comments VITAMIN B12 (BEAKER) (test code = 869 pg/mL 213-816 H 774) FOLATE (BEAKER) (test code = 362) 19.30 ng/mL >=7.00 Fish Drier ID - JANAE CTSH/FREE T4 IF [id number] 08:18:00 Test Item Value Reference Range Interpretation Comments THYROID STIMULATING HORMONE 0.158 uIU/mL 0.350-4.940 L (BEAKER) (test code = 772) Fish Drier ID - JANAE [id number] 07:41:00 Test Item Value Reference Range Interpretation Comments AMMONIA (BEAKER) (test code = 348) 35 mol/L 18-72 Fish Drier ID - DAVIDHAMIDTROPONIN [id number] 07:16:00 Test Item Value Reference Range Interpretation Comments TROPONIN I (YUKIAKER) (test code = 0.01 ng/mL 0.00-0.03 397) [...] failure, acidosis, acute neurological disease, and persistent tachyarrhythmia.Fish Drier ID - AAHAMIDC-REACTIVE PROTEIN 2019-09-22 07:14:00 Test Item Value Reference Range Interpretation Comments C-REACTIVE PROTEIN (NATY) (test 3.32 mg/dL 0.00-0.50 H code = 676) Fish Drier ID - AAHAMIDVALPROIC ACID LEVEL, [id number] 02:48:00 Test Item Value Reference Range Interpretation Comments VALPROIC ACID TOTAL (NATY) (test 46 ug/mL 50-100 L code = 924) Therapeutic range for some clinical conditions may be >100 ug/mLOperator ID - DESHAWN WPROTHROMBIN [id number] 02:31:00 Test Item Value Reference Range Interpretation Comments PROTIME (NATY) (test code = 15.3 seconds 11.9-14.2 H 759) INR (NATY) (test code = 370) 1.2 <=5.9 Effective 09/13/2018: PT Reference Range ChangeNew: 11.9-14.2 Previous: 11.7- 14.7RECOMMENDED COUMADIN/WARFARIN INR THERAPY RANGESSTANDARD DOSE: 2.0-3.0 Includes: PROPHYLAXIS for venous thrombosis, systemic embolization; TREATMENT for venous thrombosis and/or pulmonary embolus.HIGH RISK: Target INR is2.5-3.5 for patients wiht mechanical heart valves.TROPONIN [id number] 02:29:00 Test Item Value Reference Range Interpretation [...] failure, acidosis, acute neurological disease, and persistent tachyarrhythmia.Fish Drier ID - DESHAWN WBASIC METABOLIC [id number] 02:23:00 Test Item Value Reference Range Interpretation [...] S NOT APPLICABLE FOR DIALYSIS PATIEN TS. Fish Drier ID [place] HESS WHEPATIC FUNCTION [id number] 02:23:00 Test Item Value Reference Range Interpretation [...] Specimen slightly (test code = 347) hemolyzed Fish Drier SHALOM HESS WCBC W/PLT COUNT & AUTO [id number] 02:01:00 Test Item Value Reference Range Interpretation [...] PERCENT (BEAKER) (test code = 2801) CHEM [id number] 02:31:00 Test Item Value Reference Range Interpretation Comments Ammonia (test code = Ammonia) [facility].0 [id number] 00:25:00 Test Item Value Reference Range Interpretation Comments Trig (test code = Trig) 61 [facility] [id number] 00:25:00 Test Item Value Reference Range Interpretation Comments Chol (test code = Chol) 208 [facility] HospitalDoedpvwRCJCDQ8662-72-27 00:25:00 Test Item Value Reference Range Interpretation Comments HDL (test code = HDL) 51 [facility] HospitalEksbyqzGHALLP7684-43-09 00:25:00 Test Item Value Reference Range Interpretation Comments CHD Risk (test code = CHD Risk) 4.08 1 4.00-7.30 [facility] HospitalEirhdqyVMXTWQ9785-13-93 00:25:00 Test Item Value Reference Range Interpretation Comments LDL (Calculated) (test code = LDL 145 (Calculated)) [facility] HospitalWlyhaepGKCMGO4566-27-11 00:25:00 Test Item Value Reference Range Interpretation Comments VLDL (test code = VLDL) 12 1 [facility] [id number] 00:25:00 Test Item Value Reference Range Interpretation Comments Hgb A1C (test code = Hgb A1C) 6.2 [facility] [id number] 15:33:00 Test Item Value Reference Range Interpretation Comments Vitamin B12 Lvl (test code = Vitamin 146 774-4369 B12 Lvl) [facility] [id number] 15:33:00 Test Item Value Reference Range Interpretation Comments Ammonia (test code = Ammonia) no gt [facility] [id number] 15:33:00 Test Item Value Reference Range Interpretation Comments Glucose Lvl (test code = Glucose Lvl) 84 70-99 [facility] [id number] 15:33:00 Test Item Value Reference Range Interpretation Comments BUN (test code = BUN) 16 7-22 [place] 656440-03-22 15:33:00 Test Item Value Reference Range Interpretation Comments Creatinine Lvl (test code = Creatinine 1.20 0.50-1.40 Lvl) [facility]2020-03-22 15:33:00 Test Item Value Reference Range Interpretation Comments Sodium Lvl (test code = Sodium Lvl) 140 135-145 [place] 656440-03-22 15:33:00 Test Item Value Reference Range Interpretation Comments Potassium Lvl (test code = Potassium 4.0 3.5-5.1 Lvl) [place] 656440-03-22 15:33:00 Test Item Value Reference Range Interpretation Comments Chloride Lvl (test code = Chloride Lvl) 105 95-109 [place] 656440-03-22 15:33:00 Test Item Value Reference Range Interpretation Comments CO2 (test code = CO2) 27 24-32 [place] 656440-03-22 15:33:00 Test Item Value Reference Range Interpretation Comments Calcium Lvl (test code = Calcium Lvl) 9.8 8.5-10.5 [place] 656440-03-22 15:33:00 Test Item Value Reference Range Interpretation Comments AGAP (test code = AGAP) 12.0 10.0-20.0 [place] 656440-03-22 15:33:00 Test Item Value Reference Range Interpretation Comments eGFR (test code = eGFR) 62 [place] 225740-03-22 15:33:00 Test Item Value Reference Range Interpretation Comments WBC (test code = WBC) 5.0 3.7-10.4 [place] [address]-03-22 15:33:00 Test Item Value Reference Range Interpretation Comments RBC (test code = RBC) 4.22 4.70-6.10 [place] [address]-03-22 15:33:00 Test Item Value Reference Range Interpretation Comments Hgb (test code = Hgb) 12.6 14.0-18.0 [place] [address]-03-22 15:33:00 Test Item Value Reference Range Interpretation Comments Hct (test code = Hct) 37.4 42.0-54.0 [place] [address]-03-22 15:33:00 Test Item Value Reference Range Interpretation Comments MCV (test code = MCV) 88.6 80.0-94.0 [place] 225740-03-22 15:33:00 Test Item Value Reference Range Interpretation Comments MCH (test code = MCH) 29.9 pg 27.0-31.0 [place] 225740-03-22 15:33:00 Test Item Value Reference Range Interpretation Comments MCHC (test code = MCHC) 33.7 32.0-36.0 [place] 225740-03-22 15:33:00 Test Item Value Reference Range Interpretation Comments RDW (test code = RDW) 15.2 11.5-14.5 [place] 225740-03-22 15:33:00 Test Item Value Reference Range Interpretation Comments Platelet (test code = Platelet) 188 133-450 [place] 225740-03-22 15:33:00 Test Item Value Reference Range Interpretation Comments MPV (test code = MPV) 8.0 7.4-10.4 [place] [address]-03-22 15:33:00 Test Item Value Reference Range Interpretation Comments Segs (test code = Segs) 62.8 45.0-75.0 [place] 225740-03-22 15:33:00 Test Item Value Reference Range Interpretation Comments Lymphocytes (test code = Lymphocytes) 24.6 20.0-40.0 [place] [address]-03-22 15:33:00 Test Item Value Reference Range Interpretation Comments Monocytes (test code = Monocytes) 10.1 2.0-12.0 [place] [address]-03-22 15:33:00 Test Item Value Reference Range Interpretation Comments Eosinophils (test code = 1.9 See_Comment [A utomated message] The Eosinophils) system which ge nerated this result tra nsmitted reference range : <=4.0. The reference r madi was not used to int erpret this result as normal/abnormal . [place] [address]-03-22 15:33:00 Test Item Value Reference Range Interpretation Comments Basophils (test code = 0.6 See_Comment [Aut omated message] The Basophils) system which ge nerated this result tra nsmitted reference range : <=1.0. The reference r madi was not used to int erpret this result as normal/abnormal . [place] 225740-03-22 15:33:00 Test Item Value Reference Range Interpretation Comments Neutrophils # (test code = Neutrophils 3.1 1.5-8.1 #) [place] 225740-03-22 15:33:00 Test Item Value Reference Range Interpretation Comments Lymphocytes # (test code = Lymphocytes 1.2 1.0-5.5 #) [place] 225740-03-22 15:33:00 Test Item Value Reference Range Interpretation Comments Monocytes # (test code 0.5 See_Comment [Aut omated message] The = Monocytes #) system which generated this result tra nsmitted reference range : <=0.8. The reference r madi was not used to int erpret this result as normal/abnormal . [place] 225740-03-22 15:33:00 Test Item Value Reference Range Interpretation Comments Eosinophils # (test code 0.1 See_Comment [A utomated message] The = Eosinophils #) system whic h generated this result tra nsmitted reference range : <=0.5. The reference r madi was not used to int erpret this result as normal/abnormal . [facility]2020-03-21 11:10:00 Test Item Value Reference Range Interpretation Comments Glucose Lvl (test code = Glucose Lvl) 95 70-99 [place] 656440-03-21 11:10:00 Test Item Value Reference Range Interpretation Comments BUN (test code = BUN) 11 - [place] 656440-03-21 11:10:00 Test Item Value Reference Range Interpretation Comments Creatinine Lvl (test code = Creatinine 1.03 0.50-1.40 Lvl) [place] 656440-03-21 11:10:00 Test Item Value Reference Range Interpretation Comments Sodium Lvl (test code = Sodium Lvl) 138 135-145 [place] 656440-03-21 11:10:00 Test Item Value Reference Range Interpretation Comments Potassium Lvl (test code = Potassium 3.7 3.5-5.1 Lvl) [place] 656440-03-21 11:10:00 Test Item Value Reference Range Interpretation Comments Chloride Lvl (test code = Chloride Lvl) 105 95-109 [facility]2020-03-21 11:10:00 Test Item Value Reference Range Interpretation Comments CO2 (test code = CO2) 27 24-32 [facility] [id number] 11:10:00 Test Item Value Reference Range Interpretation Comments Calcium Lvl (test code = Calcium Lvl) 9.8 8.5-10.5 [facility] [id number] 11:10:00 Test Item Value Reference Range Interpretation Comments Total Protein (test code = Total 6.6 6.4-8.4 Protein) [facility] [id number] 11:10:00 Test Item Value Reference Range Interpretation Comments Albumin Lvl (test code = Albumin Lvl) 3.4 3.5-5.0 [facility] [employer] [id number] 11:10:00 Test Item Value Reference Range Interpretation Comments ALT (test code = ALT) 19 See_Comment [Auto mated message] The system which ge nerated this result transmit guillaume reference range : <=65. The reference range was not used to interpr et this result as jd l/abnormal. [facility] [employer] [id number] 11:10:00 Test Item Value Reference Range Interpretation Comments AST (test code = AST) 16 See_Comment [Auto mated message] The system which ge nerated this result transmit guillaume reference range : <=37. The reference range was not used to interpr et this result as jd l/abnormal. [facility] [employer] [id number] 11:10:00 Test Item Value Reference Range Interpretation Comments Alk Phos (test code = Alk Phos) 70 39-136 [facility] [employer] [id number] 11:10:00 Test Item Value Reference Range Interpretation Comments Bili Total (test code = Bili Total) 0.7 0.2-1.3 [facility] [id number] 11:10:00 Test Item Value Reference Range Interpretation Comments AGAP (test code = AGAP) 9.7 10.0-20.0 [facility] [id number] 11:10:00 Test Item Value Reference Range Interpretation Comments B/C Ratio (test code = B/C Ratio) 11 1 6-25 [facility] [id number] 11:10:00 Test Item Value Reference Range Interpretation Comments Globulin (test code = Globulin) 3.2 2.7-4.2 [facility] [id number] 11:10:00 Test Item Value Reference Range Interpretation Comments A/G Ratio (test code = A/G Ratio) 1.1 1 0.7-1.6 [facility] [id number] 11:10:00 Test Item Value Reference Range Interpretation Comments eGFR (test code = eGFR) 75 [facility]XcmytsbWEMWBZGSGG7316-90-03 11:10:00 Test Item Value Reference Range Interpretation Comments WBC (test code = WBC) 4.9 3.7-10.4 [facility]ypujajYFSIHDIQGR9841-47-05 11:10:00 Test Item Value Reference Range Interpretation Comments RBC (test code = RBC) 4.14 4.70-6.10 [facility] HospitalIxyiihkQPLRTVTPVV0521-05-45 11:10:00 Test Item Value Reference Range Interpretation Comments Hgb (test code = Hgb) 12.1 14.0-18.0 [facility] HospitalYxiawghPPYQBCMGAH7739-12-76 11:10:00 Test Item Value Reference Range Interpretation Comments Hct (test code = Hct) 36.7 42.0-54.0 [facility] HospitalKumsgyvBOYZJZQNMD0687-41-15 11:10:00 Test Item Value Reference Range Interpretation Comments MCV (test code = MCV) 88.6 80.0-94.0 [facility] HospitalNzqbnbtTEYSKPWHPO1380-51-35 11:10:00 Test Item Value Reference Range Interpretation Comments MCH (test code = MCH) 29.3 pg 27.0-31.0 [facility] HospitalTvwopgsYXMPJDMHCD1096-07-54 11:10:00 Test Item Value Reference Range Interpretation Comments MCHC (test code = MCHC) 33.1 32.0-36.0 [facility] HospitalDjxsnfdLLNWFZVLYA6035-84-53 11:10:00 Test Item Value Reference Range Interpretation Comments RDW (test code = RDW) 14.8 11.5-14.5 [facility] HospitalBocswrmVXXUVKCHEI7569-04-05 11:10:00 Test Item Value Reference Range Interpretation Comments Platelet (test code = Platelet) 178 133-450 [facility] Hospit[id number] 11:10:00 Test Item Value Reference Range Interpretation Comments MPV (test code = MPV) 7.9 7.4-10.4 [place] 225740-03-21 11:10:00 Test Item Value Reference Range Interpretation Comments Segs (test code = Segs) 51.1 45.0-75.0 [place] 225740-03-21 11:10:00 Test Item Value Reference Range Interpretation Comments Lymphocytes (test code = Lymphocytes) 29.1 20.0-40.0 [place] 225740-03-21 11:10:00 Test Item Value Reference Range Interpretation Comments Monocytes (test code = Monocytes) 16.1 2.0-12.0 [place] [id number] 11:10:00 Test Item Value Reference Range Interpretation Comments Eosinophils (test code = 3.1 See_Comment [A utomated message] The Eosinophils) system which ge nerated this result tra nsmitted reference range : <=4.0. The reference r madi was not used to int erpret this result as normal/abnormal . [facility]aleNaieojzCFJYXSXIEQ9426-32-86 11:10:00 Test Item Value Reference Range Interpretation Comments Basophils (test code = 0.6 See_Comment [Aut omated message] The Basophils) system which ge nerated this result tra nsmitted reference range : <=1.0. The reference r madi was not used to int erpret this result as normal/abnormal . [facility]valeRsyhloxJCSFNXGHCA4708-23-27 11:10:00 Test Item Value Reference Range Interpretation Comments Neutrophils # (test code = Neutrophils 2.5 1.5-8.1 #) [facility]aleFdpdthjQYJNITTKLU8123-20-65 11:10:00 Test Item Value Reference Range Interpretation Comments Lymphocytes # (test code = Lymphocytes 1.4 1.0-5.5 #) [place] 225740-03-21 11:10:00 Test Item Value Reference Range Interpretation Comments Monocytes # (test code 0.8 See_Comment [Aut omated message] The = Monocytes #) system which generated this result tra nsmitted reference range : <=0.8. The reference r madi was not used to int erpret this result as normal/abnormal . [facility]aleNrjmmstQVXGPXEALL0490-46-88 11:10:00 Test Item Value Reference Range Interpretation Comments Eosinophils # (test code 0.2 See_Comment [A utomated message] The = Eosinophils #) system whic h generated this result tra nsmitted reference range : <=0.5. The reference r madi was not used to int erpret this result as normal/abnormal . [facility] TexasKfdkrflEZXCNKMUTL3995-20-90 11:10:00 Test Item Value Reference Range Interpretation Comments Phenytoin Free (test code = Phenytoin 0.34 1.00-2.00 Free) [facility] [id number] 11:05:00 Test Item Value Reference Range Interpretation Comments UA Color (test code = Colorless *NA*(07/07/19 UA Color) 6:05 AM) [facility] [id number] 11:05:00 Test Item Value Reference Range Interpretation Comments UA Turbidity (test code = Clear (07/07/19 6:05 UA Turbidity) AM) [facility] [id number] 11:05:00 Test Item Value Reference Range Interpretation Comments UA Spec Grav (test code = UA Spec 1.005 1 Grav) [facility] [id number] 11:05:00 Test Item Value Reference Range Interpretation Comments UA pH (test code = UA pH) 8.0 1 5.0-8.0 [facility] [id number] 11:05:00 Test Item Value Reference Range Interpretation Comments UA Protein (test code Negative (07/07/19 6:05 = UA Protein) AM) [facility] [id number] 11:05:00 Test Item Value Reference Range Interpretation Comments UA Glucose (test code Negative *NA*(07/07/19 = UA Glucose) 6:05 AM) [facility] [id number] 11:05:00 Test Item Value Reference Range Interpretation Comments UA Ketones (test code Negative *NA*(07/07/19 = UA Ketones) 6:05 AM) [facility] [id number] 11:05:00 Test Item Value Reference Range Interpretation Comments UA Bili (test code = Negative *NA*(07/07/19 UA Bili) 6:05 AM) [facility] [id number] 11:05:00 Test Item Value Reference Range Interpretation Comments UA Blood (test code = Negative (07/07/19 6:05 UA Blood) AM) [facility] [id number] 11:05:00 Test Item Value Reference Range Interpretation Comments UA Urobilinogen (test code = UA <=1.0 mg/dL 0.1-1.0 Urobilinogen) [facility] [id number] 11:05:00 Test Item Value Reference Range Interpretation Comments UA Nitrite (test code Negative (07/07/19 6:05 = UA Nitrite) AM) [facility] [id number] 11:05:00 Test Item Value Reference Range Interpretation Comments UA Leuk Est (test Negative (07/07/19 6:05 code = UA Leuk Est) AM) [facility] [id number] 11:05:00 Test Item Value Reference Range Interpretation Comments Micro? (test code = Performed (07/07/19 6:05 Micro?) AM) [facility] [id number] 11:05:00 Test Item Value Reference Range Interpretation Comments UA WBC (test code = no gt See_Comment [Automa guillaume message] The UA WBC) system which ge nerated this result transmit guillaume reference range : <=5. The reference range was not used to interpr et this result as jd l/abnormal. [facility] [id number] 11:05:00 Test Item Value Reference Range Interpretation Comments UA RBC (test code = 1 See_Comment [Automa guillaume message] The UA RBC) system which ge nerated this result transmit guillaume reference range : <=2. The reference range was not used to interpr et this result as jd l/abnormal. [facility] [id number] 11:05:00 Test Item Value Reference Range Interpretation Comments UA Mucus (test code = UA Mucus) Few /LPF [facility] [id number] 11:05:00 Test Item Value Reference Range Interpretation Comments UA Sq Epi (test code = None Seen (07/07/19 6:05 UA Sq Epi) AM) [facility] [id number] 14:26:00 Test Item Value Reference Range Interpretation Comments Glucose Lvl (test code = Glucose Lvl) 86 70-99 [facility] Connect[facility] [id number] 14:26:00 Test Item Value Reference Range Interpretation Comments BUN (test code = BUN) 15 7-22 [facility]2020-02-09 14:26:00 Test Item Value Reference Range Interpretation Comments Creatinine Lvl (test code = Creatinine 0.90 0.50-1.40 Lvl) [facility]2020-02-09 14:26:00 Test Item Value Reference Range Interpretation Comments Sodium Lvl (test code = Sodium Lvl) 135 135-145 [place] 656440-02-09 14:26:00 Test Item Value Reference Range Interpretation Comments Potassium Lvl (test code = Potassium 4.1 3.5-5.1 Lvl) [facility]2020-02-09 14:26:00 Test Item Value Reference Range Interpretation Comments Chloride Lvl (test code = Chloride Lvl) 100 95-109 [facility]2020-02-09 14:26:00 Test Item Value Reference Range Interpretation Comments CO2 (test code = CO2) 30 24-32 [facility]2020-02-09 14:26:00 Test Item Value Reference Range Interpretation Comments Calcium Lvl (test code = Calcium Lvl) 9.2 8.5-10.5 [facility]2020-02-09 14:26:00 Test Item Value Reference Range Interpretation Comments AGAP (test code = AGAP) 9.1 10.0-20.0 [facility]2020-02-09 14:26:00 Test Item Value Reference Range Interpretation Comments eGFR (test code = eGFR) 89 [facility]2020-02-08 12:40:00 Test Item Value Reference Range Interpretation Comments Glucose Lvl (test code = Glucose Lvl) 90 70-99 [facility]2020-02-08 12:40:00 Test Item Value Reference Range Interpretation Comments BUN (test code = BUN) 16 - [facility]2020-02-08 12:40:00 Test Item Value Reference Range Interpretation Comments Creatinine Lvl (test code = Creatinine 0.90 0.50-1.40 Lvl) [facility]2020-02-08 12:40:00 Test Item Value Reference Range Interpretation Comments Sodium Lvl (test code = Sodium Lvl) 134 135-145 [place] 656440-02-08 12:40:00 Test Item Value Reference Range Interpretation Comments Potassium Lvl (test code = Potassium 3.9 3.5-5.1 Lvl) [facility]2020-02-08 12:40:00 Test Item Value Reference Range Interpretation Comments Chloride Lvl (test code = Chloride Lvl) 98 95-109 [facility]2020-02-08 12:40:00 Test Item Value Reference Range Interpretation Comments CO2 (test code = CO2) 30 24-32 [facility]2020-02-08 12:40:00 Test Item Value Reference Range Interpretation Comments Calcium Lvl (test code = Calcium Lvl) 9.3 8.5-10.5 [facility]2020-02-08 12:40:00 Test Item Value Reference Range Interpretation Comments AGAP (test code = AGAP) 9.9 10.0-20.0 [facility]2020-02-08 12:40:00 Test Item Value Reference Range Interpretation Comments eGFR (test code = eGFR) 89 [facility]2020-02-07 15:43:00 Test Item Value Reference Range Interpretation Comments Glucose Lvl (test code = Glucose Lvl) 116 70-99 [facility]2020-02-07 15:43:00 Test Item Value Reference Range Interpretation Comments BUN (test code = BUN) 16 7-22 [facility]2020-02-07 15:43:00 Test Item Value Reference Range Interpretation Comments Creatinine Lvl (test code = Creatinine 0.90 0.50-1.40 Lvl) [facility]2020-02-07 15:43:00 Test Item Value Reference Range Interpretation Comments Sodium Lvl (test code = Sodium Lvl) 132 135-145 [facility]2020-02-07 15:43:00 Test Item Value Reference Range Interpretation Comments Potassium Lvl (test code = Potassium 4.5 3.5-5.1 Lvl) [facility]2020-02-07 15:43:00 Test Item Value Reference Range Interpretation Comments Chloride Lvl (test code = Chloride Lvl) 97 95-109 [facility]2020-02-07 15:43:00 Test Item Value Reference Range Interpretation Comments CO2 (test code = CO2) 28 24-32 [facility]2020-02-07 15:43:00 Test Item Value Reference Range Interpretation Comments Calcium Lvl (test code = Calcium Lvl) 8.7 8.5-10.5 [facility] [id number] 15:43:00 Test Item Value Reference Range Interpretation Comments AGAP (test code = AGAP) 11.5 10.0-20.0 [facility] [id number] 15:43:00 Test Item Value Reference Range Interpretation Comments eGFR (test code = eGFR) 89 [facility] AND [id number] 21:24:00 Test Item Value Reference Range Interpretation Comments UA Turbidity (test code Marked *ABN*(05/23/19 = UA Turbidity) 3:24 PM) [facility] AND [id number] 21:24:00 Test Item Value Reference Range Interpretation Comments UA Spec Grav (test code = UA Spec 1.013 1 Grav) [facility] AND [id number] 21:24:00 Test Item Value Reference Range Interpretation Comments UA pH (test code = UA pH) 8.0 1 5.0-8.0 [facility] AND [id number] 21:24:00 Test Item Value Reference Range Interpretation Comments UA Protein (test code = UA Negative mg/dL Protein) [facility] AND [id number] 21:24:00 Test Item Value Reference Range Interpretation Comments UA Glucose (test code = UA Negative mg/dL Glucose) [facility] AND [id number] 21:24:00 Test Item Value Reference Range Interpretation Comments UA Ketones (test code = UA Negative mg/dL Ketones) [facility] AND [id number] 21:24:00 Test Item Value Reference Range Interpretation Comments UA Bili (test code = Negative *NA*(05/23/19 UA Bili) 3:24 PM) [facility] AND [id number] 21:24:00 Test Item Value Reference Range Interpretation Comments UA Blood (test code = Negative (05/23/19 3:24 UA Blood) PM) [facility] AND [id number] 21:24:00 Test Item Value Reference Range Interpretation Comments UA Nitrite (test code Negative (05/23/19 3:24 = UA Nitrite) PM) [facility] AND [id number] 21:24:00 Test Item Value Reference Range Interpretation Comments UA Leuk Est (test Negative (05/23/19 3:24 code = UA Leuk Est) PM) [facility] [id number] 21:24:00 Test Item Value Reference Range Interpretation Comments UA Sq Epi (test code = UA Sq Occasional /LPF Epi) [facility] [id number] 21:24:00 Test Item Value Reference Range Interpretation Comments UA WBC (test code = 1 See_Comment [Automa guillaume message] The UA WBC) system which ge nerated this result transmit guillaume reference range : <=5. The reference range was not used to interpr et this result as jd l/abnormal. [facility] [id number] 21:24:00 Test Item Value Reference Range Interpretation Comments UA RBC (test code = no gt See_Comment [Automa guillaume message] The UA RBC) system which ge nerated this result transmit guillaume reference range : <=2. The reference range was not used to interpr et this result as jd l/abnormal. [facility] [id number] 21:24:00 Test Item Value Reference Range Interpretation Comments UA Mucus (test code = UA Mucus) Few /LPF [facility] [id number] 21:24:00 Test Item Value Reference Range Interpretation Comments UA Amorph Rani (test code = UA Few /HPF Amorph Rani) [facility] [id number] 21:24:00 Test Item Value Reference Range Interpretation Comments Micro? (test code = Performed *NA*(05/23/19 Micro?) 3:24 PM) [facility] [id number] 21:24:00 Test Item Value Reference Range Interpretation Comments UA Color (test code = UA Color) Ltyellow [facility] [id number] 21:24:00 Test Item Value Reference Range Interpretation Comments UA Urobilinogen (test code = UA no gt 0.1-1.0 Urobilinogen) [facility] [id number] 12:15:00 Test Item Value Reference Range Interpretation Comments Total Protein (test code = Total 6.1 6.4-8.4 Protein) [facility] [id number] 12:15:00 Test Item Value Reference Range Interpretation Comments Albumin Lvl (test code = Albumin Lvl) 2.8 3.5-5.0 [facility] [id number] 12:15:00 Test Item Value Reference Range Interpretation Comments ALT (test code = ALT) 13 See_Comment [Auto mated message] The system which ge nerated this result transmit guillaume reference range : <=65. The reference range was not used to interpr et this result as jd l/abnormal. [facility] [id number] 12:15:00 Test Item Value Reference Range Interpretation Comments AST (test code = AST) 23 See_Comment [Auto mated message] The system which ge nerated this result transmit guillaume reference range : <=37. The reference range was not used to interpr et this result as jd l/abnormal. [facility] [id number] 12:15:00 Test Item Value Reference Range Interpretation Comments Alk Phos (test code = Alk Phos) 80 39-136 [facility] [id number] 12:15:00 Test Item Value Reference Range Interpretation Comments Bili Total (test code = Bili Total) 0.4 0.2-1.3 [facility] [id number] 12:15:00 Test Item Value Reference Range Interpretation Comments B/C Ratio (test code = B/C Ratio) 20 1 6-25 [facility] [id number] 12:15:00 Test Item Value Reference Range Interpretation Comments Globulin (test code = Globulin) 3.3 2.7-4.2 [facility] [id number] 12:15:00 Test Item Value Reference Range Interpretation Comments A/G Ratio (test code = A/G Ratio) 0.8 1 0.7-1.6 [facility] [id number] 09:21:00 Test Item Value Reference Range Interpretation Comments Magnesium Lvl (test code = Magnesium 1.9 1.8-2.4 Lvl) [facility] [id number] 09:21:00 Test Item Value Reference Range Interpretation Comments Phosphorus (test code = Phosphorus) 3.1 2.5-4.5 [facility] [id number] 09:21:00 Test Item Value Reference Range Interpretation Comments WBC (test code = WBC) 5.8 3.7-10.4 [place] 225740-02-02 09:21:00 Test Item Value Reference Range Interpretation Comments RBC (test code = RBC) 4.01 4.70-6.10 [place] 225740-02-02 09:21:00 Test Item Value Reference Range Interpretation Comments Hgb (test code = Hgb) 12.0 14.0-18.0 [place] [address]-02-02 09:21:00 Test Item Value Reference Range Interpretation Comments Hct (test code = Hct) 36.5 42.0-54.0 [place] [address]-02-02 09:21:00 Test Item Value Reference Range Interpretation Comments MCV (test code = MCV) 91.1 80.0-94.0 [place] [address]-02-02 09:21:00 Test Item Value Reference Range Interpretation Comments MCH (test code = MCH) 29.9 pg 27.0-31.0 [place] 225740-02-02 09:21:00 Test Item Value Reference Range Interpretation Comments MCHC (test code = MCHC) 32.8 32.0-36.0 [place] 225740-02-02 09:21:00 Test Item Value Reference Range Interpretation Comments RDW (test code = RDW) 16.0 11.5-14.5 [id number] 09:21:00 Test Item Value Reference Range Interpretation Comments Platelet (test code = Platelet) 184 133-450 [facility]aleXzecmgmHCENRLUDTV5509-24-52 09:21:00 Test Item Value Reference Range Interpretation Comments MPV (test code = MPV) 8.2 7.4-10.4 [place] 225740-02-02 09:21:00 Test Item Value Reference Range Interpretation Comments Segs (test code = Segs) 65.6 45.0-75.0 [place] [address]-02-02 09:21:00 Test Item Value Reference Range Interpretation Comments Lymphocytes (test code = Lymphocytes) 18.2 20.0-40.0 [place] [address]-02-02 09:21:00 Test Item Value Reference Range Interpretation Comments Monocytes (test code = Monocytes) 13.8 2.0-12.0 [place] 225740-02-02 09:21:00 Test Item Value Reference Range Interpretation Comments Eosinophils (test code = 2.3 See_Comment [A utomated message] The Eosinophils) system which ge nerated this result tra nsmitted reference range : <=4.0. The reference r madi was not used to int erpret this result as normal/abnormal . [place] 225740-02-02 09:21:00 Test Item Value Reference Range Interpretation Comments Basophils (test code = 0.1 See_Comment [Aut omated message] The Basophils) system which ge nerated this result tra nsmitted reference range : <=1.0. The reference r madi was not used to int erpret this result as normal/abnormal . [place] 225740-02-02 09:21:00 Test Item Value Reference Range Interpretation Comments Neutrophils # (test code = Neutrophils 3.8 1.5-8.1 #) [place] 225740-02-02 09:21:00 Test Item Value Reference Range Interpretation Comments Lymphocytes # (test code = Lymphocytes 1.0 1.0-5.5 #) [place] 225740-02-02 09:21:00 Test Item Value Reference Range Interpretation Comments Monocytes # (test code 0.8 See_Comment [Aut omated message] The = Monocytes #) system which generated this result tra nsmitted reference range : <=0.8. The reference r madi was not used to int erpret this result as normal/abnormal . [facility]aleRddnwetWXAALYOVZE6196-07-15 09:21:00 Test Item Value Reference Range Interpretation Comments Eosinophils # (test code 0.1 See_Comment [A utomated message] The = Eosinophils #) system whic h generated this result tra nsmitted reference range : <=0.5. The reference r madi was not used to int erpret this result as normal/abnormal . [id number] 09:21:00 Test Item Value Reference Range Interpretation Comments Basophils # (test code 0.0 See_Comment [Aut omated message] The = Basophils #) system which generated this result tra nsmitted reference range : <=0.2. The reference r madi was not used to int erpret this result as normal/abnormal . [facility]2020-02-01 07:15:00 Test Item Value Reference Range Interpretation Comments Magnesium Lvl (test code = Magnesium 2.4 1.8-2.4 Lvl) [facility]2020-02-01 07:15:00 Test Item Value Reference Range Interpretation Comments Phosphorus (test code = Phosphorus) 2.7 2.5-4.5 [place] 225740-02-01 07:15:00 Test Item Value Reference Range Interpretation Comments Segs (test code = Segs) 56.8 45.0-75.0 [facility]aleXohejecYSFJPOXZEJ7515-25-09 07:15:00 Test Item Value Reference Range Interpretation Comments Lymphocytes (test code = Lymphocytes) 25.9 20.0-40.0 [place] [address]-02-01 07:15:00 Test Item Value Reference Range Interpretation Comments Monocytes (test code = Monocytes) 14.8 2.0-12.0 [place] [address]-02-01 07:15:00 Test Item Value Reference Range Interpretation Comments Eosinophils (test code = 2.4 See_Comment [A utomated message] The Eosinophils) system which ge nerated this result tra nsmitted reference range : <=4.0. The reference r madi was not used to int erpret this result as normal/abnormal . [place] 225740-02-01 07:15:00 Test Item Value Reference Range Interpretation Comments Basophils (test code = 0.1 See_Comment [Aut omated message] The Basophils) system which ge nerated this result tra nsmitted reference range : <=1.0. The reference r madi was not used to int erpret this result as normal/abnormal . [id number] 07:15:00 Test Item Value Reference Range Interpretation Comments Neutrophils # (test code = Neutrophils 2.7 1.5-8.1 #) [place] 225740-02-01 07:15:00 Test Item Value Reference Range Interpretation Comments Lymphocytes # (test code = Lymphocytes 1.2 1.0-5.5 #) [place] 225740-02-01 07:15:00 Test Item Value Reference Range Interpretation Comments Monocytes # (test code 0.7 See_Comment [Aut omated message] The = Monocytes #) system which generated this result tra nsmitted reference range : <=0.8. The reference r madi was not used to int erpret this result as normal/abnormal . [facility]aleIurfrqpICLSWVFPNE3728-15-07 07:15:00 Test Item Value Reference Range Interpretation Comments Eosinophils # (test code 0.1 See_Comment [A utomated message] The = Eosinophils #) system whic h generated this result tra nsmitted reference range : <=0.5. The reference r madi was not used to int erpret this result as normal/abnormal . [facility]aleGhhevhgNIMVFWVRQI6043-96-73 07:15:00 Test Item Value Reference Range Interpretation Comments Basophils # (test code 0.0 See_Comment [Aut omated message] The = Basophils #) system which generated this result tra nsmitted reference range : <=0.2. The reference r madi was not used to int erpret this result as normal/abnormal . [facility]aleTosjlhvFGUFUTSFAN3041-27-57 07:15:00 Test Item Value Reference Range Interpretation Comments WBC (test code = WBC) 4.8 3.7-10.4 [place] 225740-02-01 07:15:00 Test Item Value Reference Range Interpretation Comments RBC (test code = RBC) 4.59 4.70-6.10 [place] 225740-02-01 07:15:00 Test Item Value Reference Range Interpretation Comments Hgb (test code = Hgb) 14.0 14.0-18.0 [place] 225740-02-01 07:15:00 Test Item Value Reference Range Interpretation Comments Hct (test code = Hct) 41.5 42.0-54.0 [place] 225740-02-01 07:15:00 Test Item Value Reference Range Interpretation Comments MCV (test code = MCV) 90.4 80.0-94.0 [place] 225740-02-01 07:15:00 Test Item Value Reference Range Interpretation Comments MCH (test code = MCH) 30.5 pg 27.0-31.0 [place] 225740-02-01 07:15:00 Test Item Value Reference Range Interpretation Comments MCHC (test code = MCHC) 33.7 32.0-36.0 [place] 225740-02-01 07:15:00 Test Item Value Reference Range Interpretation Comments RDW (test code = RDW) 16.0 11.5-14.5 [place] [address]-02-01 07:15:00 Test Item Value Reference Range Interpretation Comments Platelet (test code = Platelet) 204 133-450 [facility]aleFisjnbpAUWTUBKJGK4094-04-43 07:15:00 Test Item Value Reference Range Interpretation Comments MPV (test code = MPV) 8.6 7.4-10.4 [facility]2020-02-01 07:15:00 Test Item Value Reference Range Interpretation Comments Ca Ion WB (test code = Ca Ion WB) 1.31 1.05-1.25 [facility]2020-02-01 07:15:00 Test Item Value Reference Range Interpretation Comments Ca Norm WB (test code = Ca Norm WB) 1.32 1.05-1.25 [facility]2020-01-31 08:37:00 Test Item Value Reference Range Interpretation Comments Magnesium Lvl (test code = Magnesium 2.3 1.8-2.4 Lvl) [facility]2020-01-31 08:37:00 Test Item Value Reference Range Interpretation Comments Phosphorus (test code = Phosphorus) 3.3 2.5-4.5 [facility]aleUuxnnxgISFXYAGKNO3049-11-94 08:37:00 Test Item Value Reference Range Interpretation Comments Segs (test code = Segs) 54.1 45.0-75.0 [facility]aleJprlzghMWZIEIWXZX1321-37-10 08:37:00 Test Item Value Reference Range Interpretation Comments Lymphocytes (test code = Lymphocytes) 28.3 20.0-40.0 [place] 225740-01-31 08:37:00 Test Item Value Reference Range Interpretation Comments Monocytes (test code = Monocytes) 13.8 2.0-12.0 [place] [address]-01-31 08:37:00 Test Item Value Reference Range Interpretation Comments Eosinophils (test code = 3.3 See_Comment [A utomated message] The Eosinophils) system which ge nerated this result tra nsmitted reference range : <=4.0. The reference r madi was not used to int erpret this result as normal/abnormal . [place] 225740-01-31 08:37:00 Test Item Value Reference Range Interpretation Comments Basophils (test code = 0.5 See_Comment [Aut omated message] The Basophils) system which ge nerated this result tra nsmitted reference range : <=1.0. The reference r madi was not used to int erpret this result as normal/abnormal . [place] 225740-01-31 08:37:00 Test Item Value Reference Range Interpretation Comments Neutrophils # (test code = Neutrophils 2.5 1.5-8.1 #) [place] 225740-01-31 08:37:00 Test Item Value Reference Range Interpretation Comments Lymphocytes # (test code = Lymphocytes 1.3 1.0-5.5 #) [place] [address]-01-31 08:37:00 Test Item Value Reference Range Interpretation Comments Monocytes # (test code 0.7 See_Comment [Aut omated message] The = Monocytes #) system which generated this result tra nsmitted reference range : <=0.8. The reference r madi was not used to int erpret this result as normal/abnormal . [place] 225740-01-31 08:37:00 Test Item Value Reference Range Interpretation Comments Eosinophils # (test code 0.2 See_Comment [A utomated message] The = Eosinophils #) system whic h generated this result tra nsmitted reference range : <=0.5. The reference r madi was not used to int erpret this result as normal/abnormal . [place] 225740-01-31 08:37:00 Test Item Value Reference Range Interpretation Comments Basophils # (test code 0.0 See_Comment [Aut omated message] The = Basophils #) system which generated this result tra nsmitted reference range : <=0.2. The reference r madi was not used to int erpret this result as normal/abnormal . [place] 225740-01-31 08:37:00 Test Item Value Reference Range Interpretation Comments WBC (test code = WBC) 4.7 3.7-10.4 [place] 225740-01-31 08:37:00 Test Item Value Reference Range Interpretation Comments RBC (test code = RBC) 3.73 4.70-6.10 [place] [address]-01-31 08:37:00 Test Item Value Reference Range Interpretation Comments Hgb (test code = Hgb) 11.2 14.0-18.0 [place] [address]-01-31 08:37:00 Test Item Value Reference Range Interpretation Comments Hct (test code = Hct) 33.8 42.0-54.0 [facility]TnrgrihVYCCHGCAIC4560-96-08 08:37:00 Test Item Value Reference Range Interpretation Comments MCV (test code = MCV) 90.4 80.0-94.0 [facility] TexasJsfaylmSKONGOJJLI4793-63-86 08:37:00 Test Item Value Reference Range Interpretation Comments MCH (test code = MCH) 29.9 pg 27.0-31.0 [facility] TexasDqcimetNCMLYTHNYP6611-99-89 08:37:00 Test Item Value Reference Range Interpretation Comments MCHC (test code = MCHC) 33.1 32.0-36.0 [facility] TexasWowfnslVWLPTYMSWE1753-67-08 08:37:00 Test Item Value Reference Range Interpretation Comments RDW (test code = RDW) 15.7 11.5-14.5 [facility] TexasQuugyvaEFYASUKBAH9909-82-56 08:37:00 Test Item Value Reference Range Interpretation Comments Platelet (test code = Platelet) 176 133-450 [facility] TexasMungfcaKHHSEWVKOY5187-25-14 08:37:00 Test Item Value Reference Range Interpretation Comments MPV (test code = MPV) 8.3 7.4-10.4 [facility] TexasannPARATHYROID WPKLBUX3930-90-46 08:37:00 Test Item Value Reference Range Interpretation Comments Ca Ion WB (test code = Ca Ion WB) 1.16 1.05-1.25 [facility] TexasannPARATHYROID [id number] 08:37:00 Test Item Value Reference Range Interpretation Comments Ca Norm WB (test code = Ca Norm WB) 1.16 1.05-1.25 [facility]BA[facility] - [id number] 17:12:00 Test Item Value Reference Range Interpretation Comments MRSA by PCR (test Negative (05/17/19 11:12 code = MRSA by PCR) AM) [facility] TexasannCARDIAC [id number] 17:12:00 Test Item Value Reference Range Interpretation Comments Troponin-I (test code no gt See_Comment [Auto mated message] The = Troponin-I) system which g enerated this result transmit guillaume reference range : <=0.40. The reference r madi was not used to interpr et this result as jd l/abnormal. [facility] [id number] 17:12:00 Test Item Value Reference Range Interpretation Comments BNP (test code = BNP) 30 [facility]Virtual [facility] [id number] 17:12:00 Test Item Value Reference Range Interpretation Comments Total Protein (test code = Total 6.3 6.4-8.4 Protein) [facility] [id number] 17:12:00 Test Item Value Reference Range Interpretation Comments Albumin Lvl (test code = Albumin Lvl) 3.1 3.5-5.0 [facility] [id number] 17:12:00 Test Item Value Reference Range Interpretation Comments ALT (test code = ALT) 17 See_Comment [Auto mated message] The system which ge nerated this result transmit guillaume reference range : <=65. The reference range was not used to interpr et this result as jd l/abnormal. [facility] [id number] 17:12:00 Test Item Value Reference Range Interpretation Comments AST (test code = AST) 19 See_Comment [Auto mated message] The system which ge nerated this result transmit guillaume reference range : <=37. The reference range was not used to interpr et this result as jd l/abnormal. [facility] [employer] [id number] 17:12:00 Test Item Value Reference Range Interpretation Comments Alk Phos (test code = Alk Phos) 95 39-136 [facility] [id number] 17:12:00 Test Item Value Reference Range Interpretation Comments Bili Total (test code = Bili Total) 0.4 0.2-1.3 [facility] [employer] [id number] 17:12:00 Test Item Value Reference Range Interpretation Comments B/C Ratio (test code = B/C Ratio) 23 1 6-25 [facility] [id number] 17:12:00 Test Item Value Reference Range Interpretation Comments Globulin (test code = Globulin) 3.2 2.7-4.2 [facility] [id number] 17:12:00 Test Item Value Reference Range Interpretation Comments A/G Ratio (test code = A/G Ratio) 1.0 1 0.7-1.6 [facility] [id number] 17:12:00 Test Item Value Reference Range Interpretation Comments Ammonia (test code = Ammonia) 14.0 [facility] [id number] 17:12:00 Test Item Value Reference Range Interpretation Comments Lactic Acid Lvl (test code = Lactic 1.1 0.5-2.2 Acid Lvl) [facility] [id number] 17:12:00 Test Item Value Reference Range Interpretation Comments Procalcitonin Lvl (test no gt See_Comment [Au tomated message] code = Procalcitonin Lvl) e system which generated this result transmitted ref erence range: <=0.10. The reference range was not used to interpr et this result as normal/abnormal . [facility] [id number] 17:12:00 Test Item Value Reference Range Interpretation Comments Osmolality (test code = Osmolality) 250 280-300 [facility] HospitalPzoucbeJEWLCELFTQMWM3014-22-63 17:12:00 Test Item Value Reference Range Interpretation Comments Cortisol (test code = Cortisol) 13.3 [facility]aleQgtuketUTDOFKVIXH7644-62-19 17:12:00 Test Item Value Reference Range Interpretation Comments PT (test code = PT) 13.9 s 12.0-14.7 [facility]valeHywwoqgTDZORQOCOW5822-87-96 17:12:00 Test Item Value Reference Range Interpretation Comments INR (test code = INR) 1.07 1 0.85-1.17 [facility]valeScpltpiGSDHXZICDY1791-74-36 17:12:00 Test Item Value Reference Range Interpretation Comments PTT (test code = PTT) 30.1 s 22.9-35.8 [facility]2020-01-30 17:12:00 Test Item Value Reference Range Interpretation Comments Source Respiratory Nasophrngl Swb Panel PCR (test code = *NA*(05/17/19 11:12 AM) Source Respiratory Panel PCR) [facility]2020-01-30 17:12:00 Test Item Value Reference Range Interpretation Comments Influenza A PCR (test Negative *NA*(05/17/19 code = Influenza A PCR) 11:12 AM) [facility]2020-01-30 17:12:00 Test Item Value Reference Range Interpretation Comments Influenza B PCR (test Negative *NA*(05/17/19 code = Influenza B PCR) 11:12 AM) [facility] [id number] 17:12:00 Test Item Value Reference Range Interpretation Comments RSV PCR (test code = Negative *NA*(05/17/19 RSV PCR) 11:12 AM) [facility] [id number] 17:12:00 Test Item Value Reference Range Interpretation Comments Ca Ion WB (test code = Ca Ion WB) 1.15 1.05-1.25 [facility] HospitalRO[facility] [id number] 17:12:00 Test Item Value Reference Range Interpretation Comments Ca Norm WB (test code = Ca Norm WB) 1.12 1.05-1.25 [facility] [id number] 17:12:00 Test Item Value Reference Range Interpretation Comments Hgb A1C (test code = Hgb A1C) 5.8 [facility] [id number] 17:12:00 Test Item Value Reference Range Interpretation Comments U Sodium (test code = U Sodium) 101 [facility]2020-01-30 17:12:00 Test Item Value Reference Range Interpretation Comments U Osmolality (test code = U Osmolality) 443 300-800 [facility]2019-12-24 11:10:00 Test Item Value Reference Range Interpretation Comments Glucose Lvl (test code = Glucose Lvl) 124 70-99 [facility]2019-12-24 11:10:00 Test Item Value Reference Range Interpretation Comments BUN (test code = BUN) 21 7-22 [facility]2019-12-24 11:10:00 Test Item Value Reference Range Interpretation Comments Creatinine Lvl (test code = Creatinine 0.99 0.50-1.40 Lvl) [facility]2019-12-24 11:10:00 Test Item Value Reference Range Interpretation Comments Sodium Lvl (test code = Sodium Lvl) 141 135-145 [facility]2019-12-24 11:10:00 Test Item Value Reference Range Interpretation Comments Potassium Lvl (test code = Potassium 4.2 3.5-5.1 Lvl) [facility]2019-12-24 11:10:00 Test Item Value Reference Range Interpretation Comments Chloride Lvl (test code = Chloride Lvl) 106 95-109 [facility]2019-12-24 11:10:00 Test Item Value Reference Range Interpretation Comments CO2 (test code = CO2) 28 24-32 [facility]2019-12-24 11:10:00 Test Item Value Reference Range Interpretation Comments Calcium Lvl (test code = Calcium Lvl) 9.2 8.5-10.5 [facility]2019-12-24 11:10:00 Test Item Value Reference Range Interpretation Comments eGFR (test code = eGFR) 79 [facility]2019-12-24 11:10:00 Test Item Value Reference Range Interpretation Comments AGAP (test code = AGAP) 11.2 10.0-20.0 [facility]valeZlnzkchBZENMBDSOZ2986-32-61 11:10:00 Test Item Value Reference Range Interpretation Comments WBC (test code = WBC) 10.3 3.7-10.4 [facility]valeKtoitbwUKISIGXFBU4880-68-76 11:10:00 Test Item Value Reference Range Interpretation Comments RBC (test code = RBC) 3.52 4.70-6.10 [facility]valeMdpetlcJJASRISEOR0270-36-93 11:10:00 Test Item Value Reference Range Interpretation Comments Hgb (test code = Hgb) 11.3 14.0-18.0 [facility]valeFrjggixZXWQEYLZZR1353-35-25 11:10:00 Test Item Value Reference Range Interpretation Comments Hct (test code = Hct) 34.0 42.0-54.0 [facility]valeSgsviitDXBEGXUQYY3618-57-72 11:10:00 Test Item Value Reference Range Interpretation Comments MCV (test code = MCV) 96.6 80.0-94.0 [facility]valeVfnbsnfFYXYWIOGGZ3342-05-16 11:10:00 Test Item Value Reference Range Interpretation Comments MCH (test code = MCH) 32.1 pg 27.0-31.0 [facility]valeMpugklvUNUUYJWKQA6386-16-86 11:10:00 Test Item Value Reference Range Interpretation Comments MCHC (test code = MCHC) 33.2 32.0-36.0 [facility]aleAfbpuwwBMWLPYJCJU4805-33-71 11:10:00 Test Item Value Reference Range Interpretation Comments RDW (test code = RDW) 17.2 11.5-14.5 [facility]valeWcolirlUDBDUFHAVE0319-53-10 11:10:00 Test Item Value Reference Range Interpretation Comments Platelet (test code = Platelet) 153 133-450 [place] 494829-12-24 11:10:00 Test Item Value Reference Range Interpretation Comments MPV (test code = MPV) 8.4 7.4-10.4 [facility]alePcllwcqTJNLFFDQKM3797-32-59 11:10:00 Test Item Value Reference Range Interpretation Comments Segs (test code = Segs) 77.2 45.0-75.0 [facility]valeRletvpqLLWWNGZZWB2511-55-16 11:10:00 Test Item Value Reference Range Interpretation Comments Lymphocytes (test code = Lymphocytes) 13.4 20.0-40.0 [facility]valeSiclkkyGJTWCJJFBQ9295-10-24 11:10:00 Test Item Value Reference Range Interpretation Comments Monocytes (test code = Monocytes) 8.1 2.0-12.0 [facility]valeRmhdrogHGJCNVCURU9316-28-51 11:10:00 Test Item Value Reference Range Interpretation Comments Eosinophils (test code = 0.9 See_Comment [A utomated message] The Eosinophils) system which ge nerated this result tra nsmitted reference range : <=4.0. The reference r madi was not used to int erpret this result as normal/abnormal . [facility]valeIhtfitdNTLBZMBZEF6875-40-39 11:10:00 Test Item Value Reference Range Interpretation Comments Basophils (test code = 0.4 See_Comment [Aut omated message] The Basophils) system which ge nerated this result tra nsmitted reference range : <=1.0. The reference r madi was not used to int erpret this result as normal/abnormal . [facility]valeQroggxfUXFQICOWIB9782-40-06 11:10:00 Test Item Value Reference Range Interpretation Comments Neutrophils # (test code = Neutrophils 8.0 1.5-8.1 #) [facility]valeLupxljaHJCXPJVQVM3181-56-32 11:10:00 Test Item Value Reference Range Interpretation Comments Lymphocytes # (test code = Lymphocytes 1.4 1.0-5.5 #) [facility]valeHymeipsRFHJZWSHHV9328-61-06 11:10:00 Test Item Value Reference Range Interpretation Comments Monocytes # (test code 0.8 See_Comment [Aut omated message] The = Monocytes #) system which generated this result tra nsmitted reference range : <=0.8. The reference r madi was not used to int erpret this result as normal/abnormal . [facility]aleTqkfmkoJFOYMOOOHN5592-52-72 11:10:00 Test Item Value Reference Range Interpretation Comments Eosinophils # (test code 0.1 See_Comment [A utomated message] The = Eosinophils #) system [employer] generated this result tra nsmitted reference range : <=0.5. The reference r madi was not used to int erpret this result as normal/abnormal . [facility] HospitalQikcdgqTDPSRMVRQN2938-51-66 23:57:00 Test Item Value Reference Range Interpretation Comments Hgb (test code = Hgb) 12.0 14.0-18.0 [facility] TexasVbzoqmjXWTRTMTXAL7047-99-96 23:57:00 Test Item Value Reference Range Interpretation Comments Hct (test code = Hct) 34.8 42.0-54.0 [facility] AuhuhslAAHJTJFFKJ8770-22-35 16:29:00 Test Item Value Reference Range Interpretation Comments Hgb (test code = Hgb) 11.1 14.0-18.0 [facility] TexasAcxsongUKAKSGFKAR0098-85-29 16:29:00 Test Item Value Reference Range Interpretation Comments Hct (test code = Hct) 32.7 42.0-54.0 [facility] [employer] IKWOMTL9725-05-97 21:14:00 Test Item Value Reference Range Interpretation Comments ABO/Rh (test code = ABO/Rh) O [employer] [id number] 21:14:00 Test Item Value Reference Range Interpretation Comments Antibody Scrn (test Negative (04/08/19 code = Antibody Scrn) 3:14 PM) [facility] TexasPufqstaJOKAGJTAYHTF6593-48-36 21:14:00 Test Item Value Reference Range Interpretation Comments AGAP (test code = AGAP) 10.7 10.0-20.0 [facility] TexasOubkinnCOTGGZEJZUJH1068-18-63 21:14:00 Test Item Value Reference Range Interpretation Comments B/C Ratio (test code = B/C Ratio) 22 1 6-25 [facility] UsmvcvrXAEJAZXBYDVX0247-00-69 21:14:00 Test Item Value Reference Range Interpretation Comments Globulin (test code = Globulin) 4.4 2.7-4.2 [facility] TexasCyiipnzQDFMJEWJWQRX0982-35-66 21:14:00 Test Item Value Reference Range Interpretation Comments A/G Ratio (test code = A/G Ratio) 0.7 1 0.7-1.6 [facility] CenterXtlkonmCJETOZMUXWVZ3055-18-71 21:14:00 Test Item Value Reference Range Interpretation Comments Glucose Lvl (test code = Glucose Lvl) 128 70-99 [facility] CenterHatibyhKSCVTCXONCPB2447-31-23 21:14:00 Test Item Value Reference Range Interpretation Comments BUN (test code = BUN) 23 7-22 [facility] CenterReqnezwEQNIJHLLUJHF4172-40-16 21:14:00 Test Item Value Reference Range Interpretation Comments Creatinine Lvl (test code = Creatinine 1.04 0.50-1.40 Lvl) [facility] CenterSqdxtysBCMTQGXEBBZJ9787-17-41 21:14:00 Test Item Value Reference Range Interpretation Comments Sodium Lvl (test code = Sodium Lvl) 141 135-145 [facility] CenterNlvuhpvYTZIAZWKOEPZ6652-62-02 21:14:00 Test Item Value Reference Range Interpretation Comments Potassium Lvl (test code = Potassium 4.7 3.5-5.1 Lvl) [facility] CenterEvdebwxRCXGXOCRGXLB3124-11-35 21:14:00 Test Item Value Reference Range Interpretation Comments Chloride Lvl (test code = Chloride Lvl) 107 95-109 [facility] CenterWqfpneaXSTLFYSNZWZC2475-66-36 21:14:00 Test Item Value Reference Range Interpretation Comments CO2 (test code = CO2) 28 24-32 [facility] CenterYhlawrrZHYQMENTULFT1821-74-16 21:14:00 Test Item Value Reference Range Interpretation Comments Calcium Lvl (test code = Calcium Lvl) 9.6 8.5-10.5 [facility] CenterQxocxhkNNTPETJPWSWI9041-32-29 21:14:00 Test Item Value Reference Range Interpretation Comments Total Protein (test code = Total 7.5 6.4-8.4 Protein) [facility] CenterTwtdtniGXZAFHKRFCDM4402-06-13 21:14:00 Test Item Value Reference Range Interpretation Comments Albumin Lvl (test code = Albumin Lvl) 3.1 3.5-5.0 [facility] CenterBvjqecsNJEQQQJTLFNT3723-47-15 21:14:00 Test Item Value Reference Range Interpretation Comments ALT (test code = ALT) 32 See_Comment [Auto mated message] The system which ge nerated this result transmit guillaume reference range : <=65. The reference range was not used to interpr et this result as jd l/abnormal. [facility] CenterVtbtzlrGXZUDYZAADNE6352-45-42 21:14:00 Test Item Value Reference Range Interpretation Comments AST (test code = AST) 27 See_Comment [Auto mated message] The system which ge nerated this result transmit guillaume reference range : <=37. The reference range was not used to interpr et this result as jd l/abnormal. [facility] CenterUxooohnDXJNQQGVYBEV4462-56-16 21:14:00 Test Item Value Reference Range Interpretation Comments Alk Phos (test code = Alk Phos) 99 39-136 [facility] CenterDwpqvrjDTWTVJYGHBNA6126-04-36 21:14:00 Test Item Value Reference Range Interpretation Comments Bili Total (test code = Bili Total) 0.2 0.2-1.3 [facility] CenterRtwfwwpNNXQDALKKMNZ0919-05-80 21:14:00 Test Item Value Reference Range Interpretation Comments eGFR (test code = eGFR) 75 [facility]aleGotwzxaQXWQLVMSKM2265-89-11 21:14:00 Test Item Value Reference Range Interpretation Comments WBC (test code = WBC) 7.0 3.7-10.4 [facility]valeMamgnzfCBSLDWFEPU9895-48-49 21:14:00 Test Item Value Reference Range Interpretation Comments RBC (test code = RBC) 3.79 4.70-6.10 [facility]valeCesaygbUFAEZFUTJN8988-55-56 21:14:00 Test Item Value Reference Range Interpretation Comments MCV (test code = MCV) 96.3 80.0-94.0 [facility]valeNutgddyMSHOJFPBQW5402-36-60 21:14:00 Test Item Value Reference Range Interpretation Comments MCH (test code = MCH) 32.4 pg 27.0-31.0 [facility]valeWiwpecmRNAQKQYSVJ8394-07-07 21:14:00 Test Item Value Reference Range Interpretation Comments MCHC (test code = MCHC) 33.7 32.0-36.0 [facility]valeJrmotfkBMCLALFLDW6765-43-85 21:14:00 Test Item Value Reference Range Interpretation Comments RDW (test code = RDW) 17.0 11.5-14.5 [facility]aleUounmdaBQRNJHYTOK9306-48-95 21:14:00 Test Item Value Reference Range Interpretation Comments Platelet (test code = Platelet) 169 133-450 [facility]aleJwkthabGNJHZKWSEI5787-55-98 21:14:00 Test Item Value Reference Range Interpretation Comments MPV (test code = MPV) 8.4 7.4-10.4 [facility]aleXjoucdfTUZEVHQKDA8663-60-16 21:14:00 Test Item Value Reference Range Interpretation Comments INR (test code = INR) 1.12 1 0.85-1.17 [facility]aleMyookawJXZTWWIGHD4407-14-86 21:14:00 Test Item Value Reference Range Interpretation Comments PT (test code = PT) 14.5 s 12.0-14.7 [facility]aleMzkatnvFZFKBRNVNG8935-98-12 21:14:00 Test Item Value Reference Range Interpretation Comments PTT (test code = PTT) 28.5 s 22.9-35.8 [facility]aleSivoqygOIIKIDBLLU8733-86-72 21:14:00 Test Item Value Reference Range Interpretation Comments Segs (test code = Segs) 67.5 45.0-75.0 [facility]aleBxamkbhVERVQIZCSL0627-99-21 21:14:00 Test Item Value Reference Range Interpretation Comments Lymphocytes (test code = Lymphocytes) 20.3 20.0-40.0 [facility]aleVhkuzhmGZNQMCYHMW2587-69-19 21:14:00 Test Item Value Reference Range Interpretation Comments Monocytes (test code = Monocytes) 10.2 2.0-12.0 [facility]aleRlcyrndRGVAYEYBRE3634-60-16 21:14:00 Test Item Value Reference Range Interpretation Comments Eosinophils (test code = 1.4 See_Comment [A utomated message] The Eosinophils) system which ge nerated this result tra nsmitted reference range : <=4.0. The reference r madi was not used to int erpret this result as normal/abnormal . [facility]aleWhrcbjbBNOTZXSGQR2216-74-32 21:14:00 Test Item Value Reference Range Interpretation Comments Basophils (test code = 0.6 See_Comment [Aut omated message] The Basophils) system which ge nerated this result tra nsmitted reference range : <=1.0. The reference r madi was not used to int erpret this result as normal/abnormal . [facility]aleBhbewzrXMWXQGSWNB3204-74-45 21:14:00 Test Item Value Reference Range Interpretation Comments Neutrophils # (test code = Neutrophils 4.7 1.5-8.1 #) [facility]aleMkspczoZKVPBXPCGC3596-60-79 21:14:00 Test Item Value Reference Range Interpretation Comments Lymphocytes # (test code = Lymphocytes 1.4 1.0-5.5 #) [facility]aleYrsuusxHFDRJGIHUY1514-04-42 21:14:00 Test Item Value Reference Range Interpretation Comments Monocytes # (test code 0.7 See_Comment [Aut omated message] The = Monocytes #) system which generated this result tra nsmitted reference range : <=0.8. The reference r madi was not used to int erpret this result as normal/abnormal . [facility]aleOobqucqTCRFUDTSGX9768-35-40 21:14:00 Test Item Value Reference Range Interpretation Comments Eosinophils # (test code 0.1 See_Comment [A utomated message] The = Eosinophils #) system whic h generated this result tra nsmitted reference range : <=0.5. The reference r madi was not used to int erpret this result as normal/abnormal . [facility]2019-12-22 21:14:00 Test Item Value Reference Range Interpretation Comments Occult Bld Stl (test Positive *ABN*(04/08/19 code = Occult Bld Stl) 3:14 PM) [facility]aleIwjairqBRWMJJYLCB5000-30-09 12:41:00 Test Item Value Reference Range Interpretation Comments RDW (test code = RDW) 16.6 11.5-14.5 [facility]alePmeprgbGNGPJRVGHS6281-01-78 12:41:00 Test Item Value Reference Range Interpretation Comments Platelet (test code = Platelet) 212 133-450 [facility]aleFhclykoWMYBIGJMQM1347-97-14 12:41:00 Test Item Value Reference Range Interpretation Comments MPV (test code = MPV) 7.8 7.4-10.4 [facility]alePpivhisHESKGLQVDJ5771-36-79 12:41:00 Test Item Value Reference Range Interpretation Comments Segs (test code = Segs) 59.7 45.0-75.0 [facility]aleEejjpukCQICJPKKRY4008-38-64 12:41:00 Test Item Value Reference Range Interpretation Comments Lymphocytes (test code = Lymphocytes) 27.1 20.0-40.0 [facility]aleKmmsmqzDVBWSWXGSR3554-29-11 12:41:00 Test Item Value Reference Range Interpretation Comments Monocytes (test code = Monocytes) 9.9 2.0-12.0 [facility]aleRvifvrnWIWKBAVFOK2299-11-53 12:41:00 Test Item Value Reference Range Interpretation Comments Eosinophils (test code = 2.5 See_Comment [A utomated message] The Eosinophils) system which ge nerated this result tra nsmitted reference range : <=4.0. The reference r madi was not used to int erpret this result as normal/abnormal . [facility]aleCsoigolONSVJWAKIT8136-01-71 12:41:00 Test Item Value Reference Range Interpretation Comments Basophils (test code = 0.8 See_Comment [Aut omated message] The Basophils) system which ge nerated this result tra nsmitted reference range : <=1.0. The reference r madi was not used to int erpret this result as normal/abnormal . [facility]aleRhccbxtPVXPANKPCQ7073-41-73 12:41:00 Test Item Value Reference Range Interpretation Comments Neutrophils # (test code = Neutrophils 3.0 1.5-8.1 #) [facility]aleKybvhfvAKSBXZAXKT8885-47-12 12:41:00 Test Item Value Reference Range Interpretation Comments Lymphocytes # (test code = Lymphocytes 1.4 1.0-5.5 #) [facility]aleZujodpaKINHTVYMDT6519-24-25 12:41:00 Test Item Value Reference Range Interpretation Comments Monocytes # (test code 0.5 See_Comment [Aut omated message] The = Monocytes #) system which generated this result tra nsmitted reference range : <=0.8. The reference r madi was not used to int erpret this result as normal/abnormal . [facility]aleTsinalzEGMGVCAXAQ7401-30-37 12:41:00 Test Item Value Reference Range Interpretation Comments Eosinophils # (test code 0.1 See_Comment [A utomated message] The = Eosinophils #) system whic h generated this result tra nsmitted reference range : <=0.5. The reference r madi was not used to int erpret this result as normal/abnormal . [facility]2019-12-20 12:41:00 Test Item Value Reference Range Interpretation Comments Glucose Lvl (test code = Glucose Lvl) 101 70-99 [facility]2019-12-20 12:41:00 Test Item Value Reference Range Interpretation Comments BUN (test code = BUN) 24 7-22 [facility]2019-12-20 12:41:00 Test Item Value Reference Range Interpretation Comments Creatinine Lvl (test code = Creatinine 0.88 0.50-1.40 Lvl) [facility]2019-12-20 12:41:00 Test Item Value Reference Range Interpretation Comments Sodium Lvl (test code = Sodium Lvl) 141 135-145 [facility]2019-12-20 12:41:00 Test Item Value Reference Range Interpretation Comments Potassium Lvl (test code = Potassium 4.3 3.5-5.1 Lvl) [facility]2019-12-20 12:41:00 Test Item Value Reference Range Interpretation Comments Chloride Lvl (test code = Chloride Lvl) 108 95-109 [facility]2019-12-20 12:41:00 Test Item Value Reference Range Interpretation Comments CO2 (test code = CO2) 27 24-32 [facility]2019-12-20 12:41:00 Test Item Value Reference Range Interpretation Comments Calcium Lvl (test code = Calcium Lvl) 9.5 8.5-10.5 [facility]2019-12-20 12:41:00 Test Item Value Reference Range Interpretation Comments Total Protein (test code = Total 6.6 6.4-8.4 Protein) [facility]2019-12-20 12:41:00 Test Item Value Reference Range Interpretation Comments Albumin Lvl (test code = Albumin Lvl) 2.9 3.5-5.0 [facility]2019-12-20 12:41:00 Test Item Value Reference Range Interpretation Comments ALT (test code = ALT) 27 See_Comment [Auto mated message] The system which ge nerated this result transmit guillaume reference range : <=65. The reference range was not used to interpr et this result as jd l/abnormal. [facility]2019-12-20 12:41:00 Test Item Value Reference Range Interpretation Comments AST (test code = AST) 21 See_Comment [Auto mated message] The system which ge nerated this result transmit guillaume reference range : <=37. The reference range was not used to interpr et this result as jd l/abnormal. [facility]2019-12-20 12:41:00 Test Item Value Reference Range Interpretation Comments Alk Phos (test code = Alk Phos) 82 39-136 [facility]2019-12-20 12:41:00 Test Item Value Reference Range Interpretation Comments Bili Total (test code = Bili Total) 0.4 0.2-1.3 [facility]2019-12-20 12:41:00 Test Item Value Reference Range Interpretation Comments AGAP (test code = AGAP) 10.3 10.0-20.0 [facility]2019-12-20 12:41:00 Test Item Value Reference Range Interpretation Comments B/C Ratio (test code = B/C Ratio) 27 1 6-25 [facility]2019-12-20 12:41:00 Test Item Value Reference Range Interpretation Comments Globulin (test code = Globulin) 3.7 2.7-4.2 [facility]2019-12-20 12:41:00 Test Item Value Reference Range Interpretation Comments A/G Ratio (test code = A/G Ratio) 0.8 1 0.7-1.6 [facility]2019-12-20 12:41:00 Test Item Value Reference Range Interpretation Comments eGFR (test code = eGFR) 90 [facility]aleCnasesvLIQQNHZUMW5692-45-69 12:41:00 Test Item Value Reference Range Interpretation Comments WBC (test code = WBC) 5.1 3.7-10.4 [facility]aleYvscpkbPLMOWXQEAN3007-31-09 12:41:00 Test Item Value Reference Range Interpretation Comments RBC (test code = RBC) 3.46 4.70-6.10 [facility]aleGlwbtevLLAOZIWTGO1773-98-45 12:41:00 Test Item Value Reference Range Interpretation Comments Hgb (test code = Hgb) 11.0 14.0-18.0 [facility]aleEavholjBJVPHBLABY1550-11-09 12:41:00 Test Item Value Reference Range Interpretation Comments Hct (test code = Hct) 33.0 42.0-54.0 [facility]aleDtfesizZEMQZZCVCA2286-40-97 12:41:00 Test Item Value Reference Range Interpretation Comments MCV (test code = MCV) 95.2 80.0-94.0 [facility]aleLeabozcYWTRLDPLME1072-16-64 12:41:00 Test Item Value Reference Range Interpretation Comments MCH (test code = MCH) 31.7 pg 27.0-31.0 [facility]aleItpcjcvUANSHTOEBU7688-89-44 12:41:00 Test Item Value Reference Range Interpretation Comments MCHC (test code = MCHC) 33.3 32.0-36.0 [facility]2019-12-20 10:25:00 Test Item Value Reference Range Interpretation Comments Glucose Lvl (test code = Glucose Lvl) 90 70-99 [facility]2019-12-20 10:25:00 Test Item Value Reference Range Interpretation Comments BUN (test code = BUN) 24 11-06 [facility]2019-12-20 10:25:00 Test Item Value Reference Range Interpretation Comments Creatinine Lvl (test code = Creatinine 0.87 0.50-1.40 Lvl) [facility]2019-12-20 10:25:00 Test Item Value Reference Range Interpretation Comments Sodium Lvl (test code = Sodium Lvl) 139 135-145 [facility]2019-12-20 10:25:00 Test Item Value Reference Range Interpretation Comments Potassium Lvl (test code = Potassium 5.3 3.5-5.1 Lvl) [facility]2019-12-20 10:25:00 Test Item Value Reference Range Interpretation Comments Chloride Lvl (test code = Chloride Lvl) 109 95-109 [facility]2019-12-20 10:25:00 Test Item Value Reference Range Interpretation Comments CO2 (test code = CO2) 24 - [facility]2019-12-20 10:25:00 Test Item Value Reference Range Interpretation Comments AGAP (test code = AGAP) 11.3 10.0-20.0 [facility]2019-12-20 10:25:00 Test Item Value Reference Range Interpretation Comments Calcium Lvl (test code = Calcium Lvl) 9.2 8.5-10.5 [facility]2019-12-20 10:25:00 Test Item Value Reference Range Interpretation Comments eGFR (test code = eGFR) 90 [facility]2019-12-19 16:57:00 Test Item Value Reference Range Interpretation Comments Glucose Lvl (test code = Glucose Lvl) 181 70-99 [facility]2019-12-19 16:57:00 Test Item Value Reference Range Interpretation Comments BUN (test code = BUN) 24 11-06 [facility]2019-12-19 16:57:00 Test Item Value Reference Range Interpretation Comments Creatinine Lvl (test code = Creatinine 0.95 0.50-1.40 Lvl) [facility]2019-12-19 16:57:00 Test Item Value Reference Range Interpretation Comments Sodium Lvl (test code = Sodium Lvl) 141 135-145 [facility]2019-12-19 16:57:00 Test Item Value Reference Range Interpretation Comments Potassium Lvl (test code = Potassium 4.1 3.5-5.1 Lvl) [facility]2019-12-19 16:57:00 Test Item Value Reference Range Interpretation Comments Chloride Lvl (test code = Chloride Lvl) 107 95-109 [facility]2019-12-19 16:57:00 Test Item Value Reference Range Interpretation Comments CO2 (test code = CO2) 26 24-32 [facility]2019-12-19 16:57:00 Test Item Value Reference Range Interpretation Comments Calcium Lvl (test code = Calcium Lvl) 9.1 8.5-10.5 [facility]2019-12-19 16:57:00 Test Item Value Reference Range Interpretation Comments eGFR (test code = eGFR) 83 [facility]2019-12-19 16:57:00 Test Item Value Reference Range Interpretation Comments AGAP (test code = AGAP) 12.1 10.0-20.0 [facility]aleRxuuqjbVSMLHFDSQF5086-76-43 16:57:00 Test Item Value Reference Range Interpretation Comments WBC (test code = WBC) 5.5 3.7-10.4 [facility]aleFxlzrbrIEKIFTNBJQ4863-51-00 16:57:00 Test Item Value Reference Range Interpretation Comments RBC (test code = RBC) 3.47 4.70-6.10 [facility]aleTggqdptAIOGBTLGDN4193-89-86 16:57:00 Test Item Value Reference Range Interpretation Comments Hgb (test code = Hgb) 10.7 14.0-18.0 [place] 494829-12-19 16:57:00 Test Item Value Reference Range Interpretation Comments Hct (test code = Hct) 32.9 42.0-54.0 [facility]aleAvezavlNLELKIKKIA5566-59-79 16:57:00 Test Item Value Reference Range Interpretation Comments MCV (test code = MCV) 94.7 80.0-94.0 [facility]aleHhrcuaqLBJPNAGPSC8839-09-16 16:57:00 Test Item Value Reference Range Interpretation Comments MCH (test code = MCH) 30.9 pg 27.0-31.[address]12-19 16:57:00 Test Item Value Reference Range Interpretation Comments MCHC (test code = MCHC) 32.6 32.0-36.0 [facility]aleHdoakbwKUULTOESCK5515-07-58 16:57:00 Test Item Value Reference Range Interpretation Comments RDW (test code = RDW) 16.6 11.5-14.5 [facility]aleCtznbxkPNGZXVDXUJ5807-91-08 16:57:00 Test Item Value Reference Range Interpretation Comments Platelet (test code = Platelet) 220 133-450 [facility]aleYieeybdESWIXIQSMJ8862-48-73 16:57:00 Test Item Value Reference Range Interpretation Comments MPV (test code = MPV) 7.6 7.4-10.4 [facility]aleSoaoawnBJCWNMITYT5489-64-09 16:57:00 Test Item Value Reference Range Interpretation Comments Segs (test code = Segs) 64.8 45.0-75.0 [facility]aleQstgdpqHHMDERSBBF6328-48-46 16:57:00 Test Item Value Reference Range Interpretation Comments Lymphocytes (test code = Lymphocytes) 24.8 20.0-40.0 [facility]aleYyioyxvAEOMQNOFKD3427-10-02 16:57:00 Test Item Value Reference Range Interpretation Comments Monocytes (test code = Monocytes) 7.9 2.0-12.0 [facility]aleArspjodLLLAMDDOYV2550-53-03 16:57:00 Test Item Value Reference Range Interpretation Comments Eosinophils (test code = 1.7 See_Comment [A utomated message] The Eosinophils) system which ge nerated this result tra nsmitted reference range : <=4.0. The reference r madi was not used to int erpret this result as normal/abnormal . [facility]aleXpmrgwiSOMGWWRVSZ1272-10-00 16:57:00 Test Item Value Reference Range Interpretation Comments Basophils (test code = 0.8 See_Comment [Aut omated message] The Basophils) system which ge nerated this result tra nsmitted reference range : <=1.0. The reference r madi was not used to int erpret this result as normal/abnormal . [facility]aleTzfrgjlVJKQNTGDLS6916-78-06 16:57:00 Test Item Value Reference Range Interpretation Comments Neutrophils # (test code = Neutrophils 3.5 1.5-8.1 #) [facility]aleJyejsifCFYUZSLBOI8762-66-81 16:57:00 Test Item Value Reference Range Interpretation Comments Lymphocytes # (test code = Lymphocytes 1.4 1.0-5.5 #) [facility]aleJsifnkwKRPUWKXYOU7768-71-78 16:57:00 Test Item Value Reference Range Interpretation Comments Monocytes # (test code 0.4 See_Comment [Aut omated message] The = Monocytes #) system which generated this result tra nsmitted reference range : <=0.8. The reference r madi was not used to int erpret this result as normal/abnormal . [facility]aleEudfjugPUUWXEFLKW8205-66-07 16:57:00 Test Item Value Reference Range Interpretation Comments Eosinophils # (test code 0.1 See_Comment [A utomated message] The = Eosinophils #) system whic h generated this result tra nsmitted reference range : <=0.5. The reference r madi was not used to int erpret this result as normal/abnormal . [facility]aleQtfaixzLEYQOBZJRX7428-79-63 10:31:00 Test Item Value Reference Range Interpretation Comments WBC (test code = WBC) 5.2 3.7-10.4 [facility]aleEsqbbraIWMPSRUFJB5793-73-70 10:31:00 Test Item Value Reference Range Interpretation Comments RBC (test code = RBC) 3.01 4.70-6.10 [facility]aleStdmelpJPFUZGHZFJ7315-05-67 10:31:00 Test Item Value Reference Range Interpretation Comments Hgb (test code = Hgb) 9.8 14.0-18.0 [facility]aleNqvdcntCBQBLMFPAT4689-61-33 10:31:00 Test Item Value Reference Range Interpretation Comments Hct (test code = Hct) 28.8 42.0-54.0 [facility]aleMmjchfrAZEFTRFTVK3974-43-25 10:31:00 Test Item Value Reference Range Interpretation Comments MCV (test code = MCV) 95.5 80.0-94.0 [facility]aleMourmvkXNDXQLKPUT0231-19-72 10:31:00 Test Item Value Reference Range Interpretation Comments MCH (test code = MCH) 32.4 pg 27.0-31.0 [facility]aleXqxspobLVGRKHDVWQ9035-25-08 10:31:00 Test Item Value Reference Range Interpretation Comments MCHC (test code = MCHC) 33.9 32.0-36.0 [facility]aleAhwjyluQRJJIAONAB7879-49-03 10:31:00 Test Item Value Reference Range Interpretation Comments RDW (test code = RDW) 16.7 11.5-14.5 [facility]aleZruxozrKUGMLCKTIV5333-80-95 10:31:00 Test Item Value Reference Range Interpretation Comments Platelet (test code = Platelet) 216 133-450 [facility]aleOudvgnhJKLQUSLEFT1745-87-13 10:31:00 Test Item Value Reference Range Interpretation Comments MPV (test code = MPV) 7.9 7.4-10.4 [facility]aleFrxatyjHGZPPOIFKH5157-55-74 10:31:00 Test Item Value Reference Range Interpretation Comments Segs (test code = Segs) 56.8 45.0-75.0 [facility]aleIkfcapjEMLFMHMHHR1390-55-72 10:31:00 Test Item Value Reference Range Interpretation Comments Lymphocytes (test code = Lymphocytes) 30.6 20.0-40.0 [facility]aleOnhaouvDNMDIMWRBW2325-07-38 10:31:00 Test Item Value Reference Range Interpretation Comments Monocytes (test code = Monocytes) 9.4 2.0-12.0 [facility]aleKvoezbeMTGEFJRAFY2344-83-81 10:31:00 Test Item Value Reference Range Interpretation Comments Eosinophils (test code = 2.2 See_Comment [A utomated message] The Eosinophils) system which ge nerated this result tra nsmitted reference range : <=4.0. The reference r madi was not used to int erpret this result as normal/abnormal . [facility]aleZetqnltQCSLULKUGV8682-45-05 10:31:00 Test Item Value Reference Range Interpretation Comments Basophils (test code = 1.0 See_Comment [Aut omated message] The Basophils) system which ge nerated this result tra nsmitted reference range : <=1.0. The reference r madi was not used to int erpret this result as normal/abnormal . [facility]aleIgbnwswJFNGBUAOVE4117-00-01 10:31:00 Test Item Value Reference Range Interpretation Comments Neutrophils # (test code = Neutrophils 3.0 1.5-8.1 #) [facility]aleXlwwakrOETACRRAHT0090-59-64 10:31:00 Test Item Value Reference Range Interpretation Comments Lymphocytes # (test code = Lymphocytes 1.6 1.0-5.5 #) [facility]aleQbensstPHIAZJOWHS4044-02-96 10:31:00 Test Item Value Reference Range Interpretation Comments Monocytes # (test code 0.5 See_Comment [Aut omated message] The = Monocytes #) system which generated this result tra nsmitted reference range : <=0.8. The reference r madi was not used to int erpret this result as normal/abnormal . [facility]aleAexdmjwNCCZWNMTTF0926-11-42 10:31:00 Test Item Value Reference Range Interpretation Comments Eosinophils # (test code 0.1 See_Comment [A utomated message] The = Eosinophils #) system whic h generated this result tra nsmitted reference range : <=0.5. The reference r madi was not used to int erpret this result as normal/abnormal . [facility]aleLcejqluCTAJWTHEOF2819-06-27 10:31:00 Test Item Value Reference Range Interpretation Comments Basophils # (test code 0.1 See_Comment [Aut omated message] The = Basophils #) system which generated this result tra nsmitted reference range : <=0.2. The reference r madi was not used to int erpret this result as normal/abnormal . [facility]2019-12-17 07:47:00 Test Item Value Reference Range Interpretation Comments Magnesium Lvl (test code = Magnesium 2.0 1.8-2.4 Lvl) [facility]2019-12-17 07:47:00 Test Item Value Reference Range Interpretation Comments Phosphorus (test code = Phosphorus) 3.7 2.5-4.5 [facility]2019-12-17 07:47:00 Test Item Value Reference Range Interpretation Comments Ca Ion WB (test code = Ca Ion WB) 1.10 1.05-1.25 [facility]2019-12-17 07:47:00 Test Item Value Reference Range Interpretation Comments Ca Norm WB (test code = Ca Norm WB) 1.15 1.05-1.25 [facility]2019-12-16 07:24:00 Test Item Value Reference Range Interpretation Comments Magnesium Lvl (test code = Magnesium 2.0 1.8-2.4 Lvl) [facility]2019-12-16 07:24:00 Test Item Value Reference Range Interpretation Comments Phosphorus (test code = Phosphorus) 3.5 2.5-4.5 [facility]2019-12-16 07:24:00 Test Item Value Reference Range Interpretation Comments Ca Ion WB (test code = Ca Ion WB) 1.21 1.05-1.25 [facility] KSQXLET9148-58-27 07:24:00 Test Item Value Reference Range Interpretation Comments Ca Norm WB (test code = Ca Norm WB) 1.25 1.05-1.25 [facility]annCARDIAC KSVSJYJ3260-24-35 17:02:00 Test Item Value Reference Range Interpretation Comments BNP (test code = BNP) [facility] [id number] 16:41:00 Test Item Value Reference Range Interpretation Comments U Osmolality (test code = U Osmolality) 560 300-800 [facility] [id number] 05:31:00 Test Item Value Reference Range Interpretation Comments BNP (test code = BNP) 89 [facility]CHE[facility] [id number] 05:31:00 Test Item Value Reference Range Interpretation Comments Magnesium Lvl (test code = Magnesium 1.8 1.8-2.4 Lvl) [facility] [id number] 05:31:00 Test Item Value Reference Range Interpretation Comments Phosphorus (test code = Phosphorus) 3.1 2.5-4.5 [facility]annPARATHYROID [id number] 05:31:00 Test Item Value Reference Range Interpretation Comments Ca Ion WB (test code = Ca Ion WB) 1.16 1.05-1.25 [facility]annPARATHYROID [id number] 05:31:00 Test Item Value Reference Range Interpretation Comments Ca Norm WB (test code = Ca Norm WB) 1.20 1.05-1.25 [facility] [id number] 21:58:00 Test Item Value Reference Range Interpretation Comments UA Color (test code = Yellow *NA*(03/31/19 UA Color) 3:58 PM) [facility] [id number] 21:58:00 Test Item Value Reference Range Interpretation Comments UA Turbidity (test code Slight Cloudy = UA Turbidity) (03/31/19 3:58 PM) [facility] [id number] 21:58:00 Test Item Value Reference Range Interpretation Comments UA Spec Grav (test code = UA Spec 1.020 1 Grav) [facility] [id number] 21:58:00 Test Item Value Reference Range Interpretation Comments UA pH (test code = UA pH) 7.5 1 5.0-8.0 [facility] [id number] 21:58:00 Test Item Value Reference Range Interpretation Comments UA Protein (test code = UA Negative mg/dL Protein) [facility] [id number] 21:58:00 Test Item Value Reference Range Interpretation Comments UA Glucose (test code = UA Negative mg/dL Glucose) [facility] [id number] 21:58:00 Test Item Value Reference Range Interpretation Comments UA Ketones (test code = UA Negative mg/dL Ketones) [facility] [id number] 21:58:00 Test Item Value Reference Range Interpretation Comments UA Bili (test code = Negative *NA*(03/31/19 UA Bili) 3:58 PM) [facility] [id number] 21:58:00 Test Item Value Reference Range Interpretation Comments UA Blood (test code = Negative (03/31/19 3:58 UA Blood) PM) [facility] [id number] 21:58:00 Test Item Value Reference Range Interpretation Comments UA Urobilinogen (test code = UA 0.2 0.1-1.0 Urobilinogen) [facility] [id number] 21:58:00 Test Item Value Reference Range Interpretation Comments UA Nitrite (test code Negative (03/31/19 3:58 = UA Nitrite) PM) [facility] [id number] 21:58:00 Test Item Value Reference Range Interpretation Comments UA Leuk Est (test Negative (03/31/19 3:58 code = UA Leuk Est) PM) [facility] [id number] 21:58:00 Test Item Value Reference Range Interpretation Comments UA Amorph Rani (test code = Occasional /HPF UA Amorph Rani) [facility] [id number] 21:58:00 Test Item Value Reference Range Interpretation Comments UA Sq Epi (test code = None Seen (03/31/19 UA Sq Epi) 3:58 PM) [facility] [id number] 17:36:00 Test Item Value Reference Range Interpretation Comments Procalcitonin Lvl <0.05 ng/mL See_Comment [Automate d message] (test code = The system whic h Procalcitonin Lvl) generated this result transmit guillaume reference range : <=0.10. The reference range was not used to interpret this result as normal/abnormal . [facility]2019-12-12 17:36:00 Test Item Value Reference Range Interpretation Comments B/C Ratio (test code = B/C Ratio) 18 1 6-25 [facility]2019-12-12 17:36:00 Test Item Value Reference Range Interpretation Comments Total Protein (test code = Total 5.8 6.4-8.4 Protein) [facility]2019-12-12 17:36:00 Test Item Value Reference Range Interpretation Comments Albumin Lvl (test code = Albumin Lvl) 2.4 3.5-5.0 [facility]2019-12-12 17:36:00 Test Item Value Reference Range Interpretation Comments Globulin (test code = Globulin) 3.4 2.7-4.2 [facility]2019-12-12 17:36:00 Test Item Value Reference Range Interpretation Comments A/G Ratio (test code = A/G Ratio) 0.7 1 0.7-1.6 [facility]2019-12-12 17:36:00 Test Item Value Reference Range Interpretation Comments ALT (test code = ALT) 17 See_Comment [Auto mated message] The system which ge nerated this result transmit guillaume reference range : <=65. The reference range was not used to interpr et this result as jd l/abnormal. [facility]2019-12-12 17:36:00 Test Item Value Reference Range Interpretation Comments AST (test code = AST) 14 See_Comment [Auto mated message] The system which ge nerated this result transmit guillaume reference range : <=37. The reference range was not used to interpr et this result as jd l/abnormal. [facility]2019-12-12 17:36:00 Test Item Value Reference Range Interpretation Comments Alk Phos (test code = Alk Phos) 81 39-136 [facility]2019-12-12 17:36:00 Test Item Value Reference Range Interpretation Comments Bili Total (test code = Bili Total) 0.4 0.2-1.3 [id number] 17:36:00 Test Item Value Reference Range Interpretation Comments Sed Rate (test code = 45 See_Comment [Auto mated message] The Sed Rate) system which ge nerated this result transmit guillaume reference range : <=15. The reference range was not used to interpr et this result as jd l/abnormal. [facility]whlujARQRUVCMTC9108-99-71 17:36:00 Test Item Value Reference Range Interpretation Comments C-REACTIVE PROTEIN (test code = 22.6 C-REACTIVE PROTEIN) [facility] [id number] 15:26:00 Test Item Value Reference Range Interpretation Comments U Sodium (test code = U Sodium) 99 [facility] [id number] 15:26:00 Test Item Value Reference Range Interpretation Comments U Osmolality (test code = U Osmolality) 452 300-800 [facility] [id number] 15:26:00 Test Item Value Reference Range Interpretation Comments U Potassium (test code = U Potassium) 34.2 [facility] [id number] 15:26:00 Test Item Value Reference Range Interpretation Comments U Chloride (test code = U Chloride) 115 [facility] [id number] 15:26:00 Test Item Value Reference Range Interpretation Comments U Creatinine (test code = U Creatinine) 52.60 [facility] [employer] [id number] 14:40:00 Test Item Value Reference Range Interpretation Comments Osmolality (test code = Osmolality) 260 280-300 [facility] [place] [employer] [id number] 11:26:00 Test Item Value Reference Range Interpretation Comments Osmolality (test code = Osmolality) 250 280-300 [facility] [employer] [id number] 06:30:00 Test Item Value Reference Range Interpretation Comments ABO/Rh (test code = ABO/Rh) O POS [facility] [employer] [id number] 06:30:00 Test Item Value Reference Range Interpretation Comments Antibody Scrn (test Negative (03/29/19 code = Antibody Scrn) 12:30 AM) [facility] TexasBatzu MediaBACTERIAL - [id number] 06:16:00 Test Item Value Reference Range Interpretation Comments MRSA by PCR (test Negative (03/29/19 12:16 code = MRSA by PCR) AM) [facility] TexasBfkgdwpOJAPFAKJLE7097-15-64 06:16:00 Test Item Value Reference Range Interpretation Comments Basophils # (test code 0.1 See_Comment [Aut omated message] The = Basophils #) system which generated this result tra nsmitted reference range : <=0.2. The reference r madi was not used to int erpret this result as normal/abnormal . [facility]aleUdkubknQWBNZSDUMR5133-60-28 03:36:00 Test Item Value Reference Range Interpretation Comments PT (test code = PT) 13.7 s 12.0-14.7 [facility]valeRkcemxnJRIXRERMKA3774-31-50 03:36:00 Test Item Value Reference Range Interpretation Comments INR (test code = INR) 1.07 1 0.85-1.17 [facility] SunnyvaleQxajpezTDAWCSNPTL8803-70-40 03:36:00 Test Item Value Reference Range Interpretation Comments PTT (test code = PTT) 30.9 s 22.9-35.8 [facility]valeXlffyhfWNMSDEYDLO6462-12-69 03:36:00 Test Item Value Reference Range Interpretation Comments Estimated % Lysis Rapid 3.0 See_Comment [Au tomated message] The (test code = Estimated syste m which generated % Lysis Rapid) this result t ransmitted reference range : <=7.5. The reference r madi was not used to int erpret this result as normal/abnormal . [facility] SunnyvaleSzugqduJOCMMHCLAG2883-72-80 03:36:00 Test Item Value Reference Range Interpretation Comments ACT (TEG) Rapid (test code = ACT (TEG) 113 s 86-118 Rapid) [facility] SunnyvaleQzpzihzBTOFKLQYJN0098-57-88 03:36:00 Test Item Value Reference Range Interpretation Comments Split Point Rapid (test code = Split 0.5 min Point Rapid) [facility] SunnyvaleWwxamziTBJMKNBHBR8713-74-22 03:36:00 Test Item Value Reference Range Interpretation Comments R-time Rapid (test code = R-time 0.7 min 0.4-0.7 Rapid) [facility] SunnyvaleUwywamoPIPUXWTHEK0743-72-87 03:36:00 Test Item Value Reference Range Interpretation Comments K-time Rapid (test code = K-time 1.5 min 0.6-2.3 Rapid) [facility] SunnyvaleGjlnmszQOGMCLSTPQ5834-18-02 03:36:00 Test Item Value Reference Range Interpretation Comments Angle Rapid (test code = Angle 73 degrees 64-80 Rapid) [facility] SunnyvaleIsosikcLTTJGZCNYE0022-93-08 03:36:00 Test Item Value Reference Range Interpretation Comments Max Amplitude Rapid (test code = Max 62 mm 52-71 Amplitude Rapid) [facility] TexasXrfmiomXPPXCGSBNG7563-79-99 03:36:00 Test Item Value Reference Range Interpretation Comments G-value Rapid (test code = G-value 8.2 5.0-11.6 Rapid) [facility]annCHEM [id number] 02:53:00 Test Item Value Reference Range Interpretation Comments Osmolality (test code = Osmolality) 251 280-300 [facility] AND [id number] 23:27:00 Test Item Value Reference Range Interpretation Comments UA Color (test code = Yellow *NA*(03/28/19 UA Color) 5:27 PM) [facility] AND [id number] 23:27:00 Test Item Value Reference Range Interpretation Comments UA Turbidity (test code = Clear (03/28/19 5:27 UA Turbidity) PM) [facility] AND [id number] 23:27:00 Test Item Value Reference Range Interpretation Comments UA Spec Grav (test code = UA Spec 1.010 1 Grav) [facility] AND [id number] 23:27:00 Test Item Value Reference Range Interpretation Comments UA pH (test code = UA pH) 7.0 1 5.0-8.0 [facility] AND [id number] 23:27:00 Test Item Value Reference Range Interpretation Comments UA Protein (test code = UA Negative mg/dL Protein) [facility] AND [id number] 23:27:00 Test Item Value Reference Range Interpretation Comments UA Glucose (test code = UA Negative mg/dL Glucose) [facility] [id number] 23:27:00 Test Item Value Reference Range Interpretation Comments UA Ketones (test code = UA Negative mg/dL Ketones) [facility] [id number] 23:27:00 Test Item Value Reference Range Interpretation Comments UA Bili (test code = Negative *NA*(03/28/19 UA Bili) 5:27 PM) [facility] AND [id number] 23:27:00 Test Item Value Reference Range Interpretation Comments UA Blood (test code = Negative (03/28/19 5:27 UA Blood) PM) [facility] AND [id number] 23:27:00 Test Item Value Reference Range Interpretation Comments UA Nitrite (test code Negative (03/28/19 5:27 = UA Nitrite) PM) [facility] AND [id number] 23:27:00 Test Item Value Reference Range Interpretation Comments UA Leuk Est (test code Trace *ABN*(03/28/19 = UA Leuk Est) 5:27 PM) [facility] AND [id number] 23:27:00 Test Item Value Reference Range Interpretation Comments UA Sq Epi (test code = UA Sq Occasional /LPF Epi) [facility] AND [id number] 23:27:00 Test Item Value Reference Range Interpretation Comments UA WBC (test code = 8 See_Comment [Automa guillaume message] The UA WBC) system which ge nerated this result transmit guillaume reference range : <=5. The reference range was not used to interpr et this result as jd l/abnormal. [facility] AND [id number] 23:27:00 Test Item Value Reference Range Interpretation Comments UA RBC (test code = 2 See_Comment [Automa guillaume message] The UA RBC) system which ge nerated this result transmit guillaume reference range : <=2. The reference range was not used to interpr et this result as jd l/abnormal. [facility] AND [id number] 23:27:00 Test Item Value Reference Range Interpretation Comments UA Bacteria (test code = UA Occasional /HPF Bacteria) [facility] AND [id number] 23:27:00 Test Item Value Reference Range Interpretation Comments UA Urobilinogen (test code = UA <=1.0 mg/dL 0.1-1.0 Urobilinogen) [facility]2019-12-11 23:27:00 Test Item Value Reference Range Interpretation Comments U Sodium (test code = U Sodium) 98 [facility]2019-12-11 23:27:00 Test Item Value Reference Range Interpretation Comments U Potassium (test code = U Potassium) 39.2 [facility]2019-12-11 23:27:00 Test Item Value Reference Range Interpretation Comments U Chloride (test code = U Chloride) 110 [facility]2019-12-11 23:27:00 Test Item Value Reference Range Interpretation Comments U Osmolality (test code = U Osmolality) 465 300-800 [facility] [id number] 22:09:00 Test Item Value Reference Range Interpretation Comments Troponin-I (test code no gt See_Comment [Auto mated message] The = Troponin-I) system which g enerated this result transmit guillaume reference range : <=0.40. The reference r madi was not used to interpr et this result as jd l/abnormal. [facility] HospitalCARVirtuaGymAC [id number] 22:09:00 Test Item Value Reference Range Interpretation Comments BNP (test code = BNP) 74 [facility]CHEM [id number] 22:09:00 Test Item Value Reference Range Interpretation Comments eGFR (test code = eGFR) 95 [facility] HospitalKkhqnwoJWBTKESYBI5010-42-87 22:09:00 Test Item Value Reference Range Interpretation Comments WBC X 10x3 (test code = WBC X 10x3) 5.8 3.7-10.4 [facility]RrjgptgUGFUIJZDSC9920-46-25 22:09:00 Test Item Value Reference Range Interpretation Comments RBC X 10x6 (test code = RBC X 10x6) 3.67 4.70-6.10 [facility] HospitalTlmiirqEIFSNKSUHS8158-10-93 22:09:00 Test Item Value Reference Range Interpretation Comments Hgb (test code = Hgb) 11.6 14.0-18.0 [facility] HospitalYiiisamSYCZAPOYDI9605-95-68 22:09:00 Test Item Value Reference Range Interpretation Comments Hct (test code = Hct) 33.4 42.0-54.0 [facility] HospitalXhyhegeQHFVZDOGQU4752-35-51 22:09:00 Test Item Value Reference Range Interpretation Comments MCV (test code = MCV) 90.9 80.0-94.0 [facility] HospitalTgvvvwuYFSBZIWZOX2443-44-18 22:09:00 Test Item Value Reference Range Interpretation Comments MCH (test code = MCH) 31.6 pg 27.0-31.0 [facility] HospitalFkqwvglWAIEUJLBZE4891-95-68 22:09:00 Test Item Value Reference Range Interpretation Comments MCHC (test code = MCHC) 34.8 32.0-36.0 [facility] HospitalRsypjwhSWXXDCEJEH9087-77-66 22:09:00 Test Item Value Reference Range Interpretation Comments RDW (test code = RDW) 16.5 11.5-14.5 [facility]aleYhcntbkPVJSEOIQRI1878-40-30 22:09:00 Test Item Value Reference Range Interpretation Comments Platelet (test code = Platelet) 198 133-450 [facility] SunnyvaleCfosnaySJAAHQKXRJ7328-67-02 22:09:00 Test Item Value Reference Range Interpretation Comments MPV (test code = MPV) 6.9 7.4-10.4 [facility] SunnyvaleIaclofwXNXGNAIRLU3970-12-68 22:09:00 Test Item Value Reference Range Interpretation Comments PT (test code = PT) 14.1 s 12.0-14.7 [facility] SunnyvaleXkdwtleMUZIGGOGUA7601-53-42 22:09:00 Test Item Value Reference Range Interpretation Comments INR (test code = INR) 1.11 1 0.85-1.17 [facility] SunnyvaleYslaprxSMAYAOAQWB3819-81-72 22:09:00 Test Item Value Reference Range Interpretation Comments Segs (test code = Segs) 59.5 45.0-75.0 [facility] SunnyvaleMqrhaurGEGGATFCQH2337-12-24 22:09:00 Test Item Value Reference Range Interpretation Comments Lymphocytes (test code = Lymphocytes) 21.9 20.0-40.0 [facility] SunnyvaleRgulfsvAIEHCXISJC4852-83-01 22:09:00 Test Item Value Reference Range Interpretation Comments Monocytes (test code = Monocytes) 16.3 2.0-12.0 [facility] SunnyvaleUpupfvfOTGBAAFPWW2946-13-23 22:09:00 Test Item Value Reference Range Interpretation Comments Eosinophils (test code = 1.8 See_Comment [A utomated message] The Eosinophils) system which ge nerated this result tra nsmitted reference range : <=4.0. The reference r madi was not used to int erpret this result as normal/abnormal . [facility] SunnyvaleVlewalyQVDZHVBFVC2136-36-93 22:09:00 Test Item Value Reference Range Interpretation Comments Basophils (test code = 0.5 See_Comment [Aut omated message] The Basophils) system which ge nerated this result tra nsmitted reference range : <=1.0. The reference r madi was not used to int erpret this result as normal/abnormal . [facility] SunnyvalePtruhvbVCEHJOJGEU1124-43-32 22:09:00 Test Item Value Reference Range Interpretation Comments Neutrophils # (test code = Neutrophils 3.5 1.5-8.1 #) [facility] SunnyvaleFjwanfpQERXJWMPZK9301-23-93 22:09:00 Test Item Value Reference Range Interpretation Comments Lymphocytes # (test code = Lymphocytes 1.3 1.0-5.5 #) [facility] SunnyvaleJwiccnfYWMOSTTBFH3702-34-26 22:09:00 Test Item Value Reference Range Interpretation Comments Monocytes # (test code 1.0 See_Comment [Aut omated message] The = Monocytes #) system which generated this result tra nsmitted reference range : <=0.8. The reference r madi was not used to int erpret this result as normal/abnormal . [facility] SunnyvaleQzovyslLJOWZHKIMJ7099-70-33 22:09:00 Test Item Value Reference Range Interpretation Comments Eosinophils # (test code 0.1 See_Comment [A utomated message] The = Eosinophils #) system whic h generated this result tra nsmitted reference range : <=0.5. The reference r madi was not used to int erpret this result as normal/abnormal . [facility] SunnyvaleIbxbbxrZWRGENIPQS7468-38-98 22:09:00 Test Item Value Reference Range Interpretation Comments Basophils # (test code 0.0 See_Comment [Aut omated message] The = Basophils #) system which generated this result tra nsmitted reference range : <=0.2. The reference r madi was not used to int erpret this result as normal/abnormal . [facility]2019-12-11 22:07:00 Test Item Value Reference Range Interpretation Comments Glucose Lvl (test code = Glucose Lvl) 107 70-99 [facility]2019-12-11 22:07:00 Test Item Value Reference Range Interpretation Comments BUN (test code = BUN) 15 7-22 [facility]2019-12-11 22:07:00 Test Item Value Reference Range Interpretation Comments Creatinine Lvl (test code = Creatinine 0.77 0.50-1.40 Lvl) [facility]2019-12-11 22:07:00 Test Item Value Reference Range Interpretation Comments Sodium Lvl (test code = Sodium Lvl) 120 135-145 [facility]2019-12-11 22:07:00 Test Item Value Reference Range Interpretation Comments Potassium Lvl (test code = Potassium 4.9 3.5-5.1 Lvl) [facility]2019-12-11 22:07:00 Test Item Value Reference Range Interpretation Comments Chloride Lvl (test code = Chloride Lvl) 86 95-109 [facility]2019-12-11 22:07:00 Test Item Value Reference Range Interpretation Comments CO2 (test code = CO2) 26 -32 [facility]2019-12-11 22:07:00 Test Item Value Reference Range Interpretation Comments AGAP (test code = AGAP) 12.9 10.0-20.0 [facility]2019-12-11 22:07:00 Test Item Value Reference Range Interpretation Comments Calcium Lvl (test code = Calcium Lvl) 8.3 8.5-10.5 [facility] TexasZlpadijUQBGXRHOVJJU8558-86-21 15:16:00 Test Item Value Reference Range Interpretation Comments Sodium Lvl (test code = Sodium Lvl) 134 135-145 [facility]2019-11-22 06:37:00 Test Item Value Reference Range Interpretation Comments Glucose Lvl (test code = Glucose Lvl) 250 70-99 [facility]2019-11-22 06:37:00 Test Item Value Reference Range Interpretation Comments BUN (test code = BUN) 11-06 [facility]2019-11-22 06:37:00 Test Item Value Reference Range Interpretation Comments Creatinine Lvl (test code = Creatinine 1.04 0.50-1.40 Lvl) [facility]2019-11-22 06:37:00 Test Item Value Reference Range Interpretation Comments Sodium Lvl (test code = Sodium Lvl) 133 135-145 [facility]2019-11-22 06:37:00 Test Item Value Reference Range Interpretation Comments Potassium Lvl (test code = Potassium 4.6 3.5-5.1 Lvl) [facility]2019-11-22 06:37:00 Test Item Value Reference Range Interpretation Comments Chloride Lvl (test code = Chloride Lvl) 104 95-109 [facility]2019-11-22 06:37:00 Test Item Value Reference Range Interpretation Comments CO2 (test code = CO2) 23 -32 [facility]2019-11-22 06:37:00 Test Item Value Reference Range Interpretation Comments Calcium Lvl (test code = Calcium Lvl) 8.1 8.5-10.5 [facility]2019-11-22 06:37:00 Test Item Value Reference Range Interpretation Comments eGFR (test code = eGFR) 75 [facility]2019-11-22 06:37:00 Test Item Value Reference Range Interpretation Comments AGAP (test code = AGAP) 10.6 10.0-20.0 [facility]aleXvdjkeuYDJSEFAORK1565-24-51 06:37:00 Test Item Value Reference Range Interpretation Comments Segs (test code = Segs) 75.8 45.0-75.0 [facility]valeIfbquzfBYIZPZKWAE2273-08-86 06:37:00 Test Item Value Reference Range Interpretation Comments Lymphocytes (test code = Lymphocytes) 11.7 20.0-40.0 [facility] SunnyvaleMtlwenxRNGEHBDGXD8437-08-74 06:37:00 Test Item Value Reference Range Interpretation Comments Monocytes (test code = Monocytes) 10.9 2.0-12.0 [facility]valeSgbcuyyTFJICUTPBF3450-54-17 06:37:00 Test Item Value Reference Range Interpretation Comments Eosinophils (test code = 1.3 See_Comment [A utomated message] The Eosinophils) system which ge nerated this result tra nsmitted reference range : <=4.0. The reference r madi was not used to int erpret this result as normal/abnormal . [facility] [place]QnubrgmSKYJZMDUGR8600-97-38 06:37:00 Test Item Value Reference Range Interpretation Comments Basophils (test code = 0.3 See_Comment [Aut omated message] The Basophils) system which ge nerated this result tra nsmitted reference range : <=1.0. The reference r madi was not used to int erpret this result as normal/abnormal . [facility]aleKaoizwyYPQCDVFOQW7237-11-73 06:37:00 Test Item Value Reference Range Interpretation Comments Neutrophils # (test code = Neutrophils 6.1 1.5-8.1 #) [facility] [place]aleWxhcwgcJCONCNJFYQ1283-14-69 06:37:00 Test Item Value Reference Range Interpretation Comments Lymphocytes # (test code = Lymphocytes 0.9 1.0-5.5 #) [facility] [place]aleScsljwzQCVDDUPKDX2299-05-41 06:37:00 Test Item Value Reference Range Interpretation Comments Monocytes # (test code 0.9 See_Comment [Aut omated message] The = Monocytes #) system which generated this result tra nsmitted reference range : <=0.8. The reference r madi was not used to int erpret this result as normal/abnormal . [facility] [place]aleGgjbtxsQVCYZLOPVM6010-53-90 06:37:00 Test Item Value Reference Range Interpretation Comments Eosinophils # (test code 0.1 See_Comment [A utomated message] The = Eosinophils #) system whic h generated this result tra nsmitted reference range : <=0.5. The reference r madi was not used to int erpret this result as normal/abnormal . [facility] [place]aleZpqcgqxNBTPYWXDAZ7019-15-45 06:37:00 Test Item Value Reference Range Interpretation Comments WBC (test code = WBC) 8.1 3.7-10.4 [facility] [place]aleCzhxykxHLHZWOTQSC6485-02-12 06:37:00 Test Item Value Reference Range Interpretation Comments RBC (test code = RBC) 2.86 4.70-6.10 [facility] [place]valeBuxuskkDUIEZJOJBX0638-27-04 06:37:00 Test Item Value Reference Range Interpretation Comments Hgb (test code = Hgb) 9.0 14.0-18.0 [facility] [place]aleYhueuydADCFUAUSQC4941-83-69 06:37:00 Test Item Value Reference Range Interpretation Comments Hct (test code = Hct) 27.2 42.0-54.0 [facility] [place]aleCdbljhtXIMEDBUTFD9852-72-08 06:37:00 Test Item Value Reference Range Interpretation Comments MCV (test code = MCV) 95.1 80.0-94.0 [facility] [place]alePctukeuZWPYCLWBIG5608-69-01 06:37:00 Test Item Value Reference Range Interpretation Comments MCH (test code = MCH) 31.5 pg 27.0-31.0 [facility] [place]aleFusudihZUHBKHXOVX4992-68-42 06:37:00 Test Item Value Reference Range Interpretation Comments MCHC (test code = MCHC) 33.1 32.0-36.0 [facility] [place]aleBugxhdnHASYORRZGF1117-93-77 06:37:00 Test Item Value Reference Range Interpretation Comments RDW (test code = RDW) 19.0 11.5-14.5 [facility] [place]valeIulewltGMGZFQMCQS1081-92-26 06:37:00 Test Item Value Reference Range Interpretation Comments Platelet (test code = Platelet) 161 133-450 [facility] [place]valeMvdewztRVCHTJMHIU3329-93-36 06:37:00 Test Item Value Reference Range Interpretation Comments MPV (test code = MPV) 10.0 7.4-10.4 [facility]SdnguvbKDCWRZQGHKTS8602-97-40 22:16:00 Test Item Value Reference Range Interpretation Comments Sodium Lvl (test code = Sodium Lvl) 133 135-145 [facility] [place]valeJqdduoeLBIXHVPRAV7214-71-55 17:18:00 Test Item Value Reference Range Interpretation Comments WBC (test code = WBC) 8.5 3.7-10.4 [facility] [place]valeBmvkotsHIUEUNTEID4262-53-16 17:18:00 Test Item Value Reference Range Interpretation Comments RBC (test code = RBC) 3.27 4.70-6.10 [facility] [place]aleNsiznycIFRKFBHBWW9233-98-18 17:18:00 Test Item Value Reference Range Interpretation Comments Hgb (test code = Hgb) 10.2 14.0-18.0 [facility] [place]valeEuygoeiOQOOCSMCYA9484-22-57 17:18:00 Test Item Value Reference Range Interpretation Comments Hct (test code = Hct) 31.2 42.0-54.0 [facility] [place]alePqamofgHPTPADJCBX2448-59-74 17:18:00 Test Item Value Reference Range Interpretation Comments MCV (test code = MCV) 95.5 80.0-94.0 [facility] [place]aleJkpmfweJDEHBTOFQW5467-16-00 17:18:00 Test Item Value Reference Range Interpretation Comments MCH (test code = MCH) 31.3 pg 27.0-31.0 [facility] [place]aleZsyluagANDCHLESOP6794-84-24 17:18:00 Test Item Value Reference Range Interpretation Comments MCHC (test code = MCHC) 32.7 32.0-36.0 [facility] [place]aleZogdjuxTLBWPTJVRG3230-29-14 17:18:00 Test Item Value Reference Range Interpretation Comments RDW (test code = RDW) 19.1 11.5-14.5 [facility] [place]aleWepzfogFUZXZBVNGD5834-56-52 17:18:00 Test Item Value Reference Range Interpretation Comments Platelet (test code = Platelet) 174 133-450 [facility] [place]aleUqodfwvAURIQHESRX3994-61-20 17:18:00 Test Item Value Reference Range Interpretation Comments MPV (test code = MPV) 9.8 7.4-10.4 [facility] [place]aleNzvwkclOKEOQUGBJD1853-32-92 17:18:00 Test Item Value Reference Range Interpretation Comments Segs (test code = Segs) 76.3 45.0-75.0 [facility] [place]valeRhrasmoMJWIPEUXIH3246-77-93 17:18:00 Test Item Value Reference Range Interpretation Comments Lymphocytes (test code = Lymphocytes) 11.5 20.0-40.0 [facility] [place]alePjuwysvWQWOWFDQAM8494-64-67 17:18:00 Test Item Value Reference Range Interpretation Comments Monocytes (test code = Monocytes) 11.0 2.0-12.0 [facility] [place]aleVxiwfziPUACBZKRUR2172-63-95 17:18:00 Test Item Value Reference Range Interpretation Comments Eosinophils (test code = 1.0 See_Comment [A utomated message] The Eosinophils) system which ge nerated this result tra nsmitted reference range : <=4.0. The reference r madi was not used to int erpret this result as normal/abnormal . [facility] [place]aleGvaxaggGZXVPBSJYN0123-14-83 17:18:00 Test Item Value Reference Range Interpretation Comments Basophils (test code = 0.2 See_Comment [Aut omated message] The Basophils) system which ge nerated this result tra nsmitted reference range : <=1.0. The reference r madi was not used to int erpret this result as normal/abnormal . [facility] [place]aleWuhmmpgXNZSYHNJWP2632-67-41 17:18:00 Test Item Value Reference Range Interpretation Comments Neutrophils # (test code = Neutrophils 6.5 1.5-8.1 #) [facility] [place]aleKwmwkrnVKONHFGQSH6710-76-80 17:18:00 Test Item Value Reference Range Interpretation Comments Lymphocytes # (test code = Lymphocytes 1.0 1.0-5.5 #) [facility] [place]aleNrpcldfYRXBGAGUKM5643-00-77 17:18:00 Test Item Value Reference Range Interpretation Comments Monocytes # (test code 0.9 See_Comment [Aut omated message] The = Monocytes #) system which generated this result tra nsmitted reference range : <=0.8. The reference r madi was not used to int erpret this result as normal/abnormal . [facility] [place]aleYfsawhgAHLGPPVNMX5250-64-15 17:18:00 Test Item Value Reference Range Interpretation Comments Eosinophils # (test code 0.1 See_Comment [A utomated message] The = Eosinophils #) system whic h generated this result tra nsmitted reference range : <=0.5. The reference r madi was not used to int erpret this result as normal/abnormal . [facility]MemavzuUGXWMPGRVFYG0641-10-38 11:13:00 Test Item Value Reference Range Interpretation Comments AGAP (test code = AGAP) 10.7 10.0-20.0 [facility] CenterUczpvzoISRZKVTWRJLN3414-13-45 11:13:00 Test Item Value Reference Range Interpretation Comments Glucose Lvl (test code = Glucose Lvl) 250 70-99 [facility] CenterKwamnlkSOZMGZCLDRDX4419-61-79 11:13:00 Test Item Value Reference Range Interpretation Comments BUN (test code = BUN) 22 7-22 [facility] CenterAdepmneXWTPEYQJMEZE7052-88-22 11:13:00 Test Item Value Reference Range Interpretation Comments Creatinine Lvl (test code = Creatinine 1.26 0.50-1.40 Lvl) [facility] CenterYdtwwheWUKZWWNPPFLX7561-19-23 11:13:00 Test Item Value Reference Range Interpretation Comments Potassium Lvl (test code = Potassium 4.7 3.5-5.1 Lvl) [facility] CenterMjpvolcRWIORGGGRFFF5772-77-40 11:13:00 Test Item Value Reference Range Interpretation Comments Chloride Lvl (test code = Chloride Lvl) 105 95-109 [facility] CenterQrqizypUJHPHLRCGPHN9537-71-81 11:13:00 Test Item Value Reference Range Interpretation Comments CO2 (test code = CO2) 21 24-32 [facility] CenterOwrrqfbCHKBPZAWTQDF1141-53-46 11:13:00 Test Item Value Reference Range Interpretation Comments Calcium Lvl (test code = Calcium Lvl) 7.9 8.5-10.5 [facility] CenterRnubifyENHAINMUVJYF6812-48-21 11:13:00 Test Item Value Reference Range Interpretation Comments eGFR (test code = eGFR) 59 [facility] [place]aleXwkkxdaTZMGWJHJJZ9383-69-04 11:13:00 Test Item Value Reference Range Interpretation Comments WBC (test code = WBC) 8.0 3.7-10.4 [facility] [place]aleNsytnqrDYDLVENUXY8821-60-84 11:13:00 Test Item Value Reference Range Interpretation Comments RBC (test code = RBC) 2.91 4.70-6.10 [facility] [place]aleOhylpzpIZBELXJCJV6844-95-98 11:13:00 Test Item Value Reference Range Interpretation Comments Hgb (test code = Hgb) 9.3 14.0-18.0 [facility] [place]aleMyousypWCBGGEHHMJ8274-43-88 11:13:00 Test Item Value Reference Range Interpretation Comments Hct (test code = Hct) 27.6 42.0-54.0 [facility] [place]aleRxwktbdIYNUWMPZKH8278-63-18 11:13:00 Test Item Value Reference Range Interpretation Comments MCV (test code = MCV) 94.9 80.0-94.0 [facility] [place]aleWfbcrgqQEKTNXZQYK4717-71-31 11:13:00 Test Item Value Reference Range Interpretation Comments MCH (test code = MCH) 32.0 pg 27.0-31.0 [facility] [place]aleTyfwwctAMGRHAOYXO0904-79-28 11:13:00 Test Item Value Reference Range Interpretation Comments MCHC (test code = MCHC) 33.7 32.0-36.0 [facility] [place]aleZcnqpogIBZRZSQTDK1245-46-32 11:13:00 Test Item Value Reference Range Interpretation Comments RDW (test code = RDW) 18.7 11.5-14.5 [facility] [place]aleFbvmhqiVFOHKDKEKI3212-19-28 11:13:00 Test Item Value Reference Range Interpretation Comments Platelet (test code = Platelet) 105 133-450 [facility] [place]aleEntqmvkOCNVKYNLMK1774-37-65 11:13:00 Test Item Value Reference Range Interpretation Comments MPV (test code = MPV) 10.2 7.4-10.4 [facility] [place]aleOjiefshYAPRPXZYPF4935-43-92 11:13:00 Test Item Value Reference Range Interpretation Comments Segs (test code = Segs) 75.7 45.0-75.0 [facility] [place]aleTsqscpmSWSLACONBB8450-99-77 11:13:00 Test Item Value Reference Range Interpretation Comments Lymphocytes (test code = Lymphocytes) 11.8 20.0-40.0 [facility] [place]valeDdogcxsEOIPGWPIVP9528-32-56 11:13:00 Test Item Value Reference Range Interpretation Comments Monocytes (test code = Monocytes) 10.7 2.0-12.0 [facility] [place]aleMfnowshVWTBPZQEOU1627-04-12 11:13:00 Test Item Value Reference Range Interpretation Comments Eosinophils (test code = 1.1 See_Comment [A utomated message] The Eosinophils) system which ge nerated this result tra nsmitted reference range : <=4.0. The reference r madi was not used to int erpret this result as normal/abnormal . [facility] [place]alePvfgfukXJZQSPOUVJ1505-34-41 11:13:00 Test Item Value Reference Range Interpretation Comments Basophils (test code = 0.7 See_Comment [Aut omated message] The Basophils) system which ge nerated this result tra nsmitted reference range : <=1.0. The reference r madi was not used to int erpret this result as normal/abnormal . [facility] [place]aleNgdffoxVFWMKNVLNZ1347-93-65 11:13:00 Test Item Value Reference Range Interpretation Comments Neutrophils # (test code = Neutrophils 6.1 1.5-8.1 #) [facility] [place]aleHpyewrsCXWVEKFWUL3887-81-16 11:13:00 Test Item Value Reference Range Interpretation Comments Lymphocytes # (test code = Lymphocytes 0.9 1.0-5.5 #) [facility] [place]aleCmvrcinFXEBWDCDDO4342-04-20 11:13:00 Test Item Value Reference Range Interpretation Comments Monocytes # (test code 0.9 See_Comment [Aut omated message] The = Monocytes #) system which generated this result tra nsmitted reference range : <=0.8. The reference r madi was not used to int erpret this result as normal/abnormal . [facility] [place]aleMwnmhfgAIIFUIRVCB2531-24-34 11:13:00 Test Item Value Reference Range Interpretation Comments Eosinophils # (test code 0.1 See_Comment [A utomated message] The = Eosinophils #) system whic h generated this result tra nsmitted reference range : <=0.5. The reference r madi was not used to int erpret this result as normal/abnormal . [facility] [place]aleDyzhcabNBMWZKJQKV4653-01-18 11:13:00 Test Item Value Reference Range Interpretation Comments Basophils # (test code 0.1 See_Comment [Aut omated message] The = Basophils #) system which generated this result tra nsmitted reference range : <=0.2. The reference r madi was not used to int erpret this result as normal/abnormal . [facility] [id number] 03:14:00 Test Item Value Reference Range Interpretation Comments U Sodium (test code = U Sodium) 134 [facility] XUDH6429-01-64 03:14:00 Test Item Value Reference Range Interpretation Comments U Osmolality (test code = U Osmolality) 554 300-800 [facility] Mmcbhr3027-78-87 19:29:00 Test Item Value Reference Range Interpretation Comments Gram Stain Report Gram Stain Performed By: (test code = Gram [facility] [place] Stain Report) [facility]ics[facility]: Aspirate/Body Fluid/Xffvft9292-04-09 19:29:00 Test Item Value Reference Range Interpretation Comments Culture: Aspirate/Body Fluid/Tissue No Growth (test code = Culture: Aspirate/Body Fluid/Tissue) [facility] [id number] 12:13:00 Test Item Value Reference Range Interpretation Comments Osmolality (test code = Osmolality) 293 280-300 [facility] OZCMJ9863-38-98 12:13:00 Test Item Value Reference Range Interpretation Comments Procalcitonin Lvl (test 0.12 See_Comment [Au tomated message] code = Procalcitonin Lvl) Th e system which generated this result transmitted ref erence range: <=0.10. The reference range was not used to interpr et this result as normal/abnormal . [facility] AND [id number] 23:39:00 Test Item Value Reference Range Interpretation Comments UA Color (test code = Yellow *NA*(03/06/19 UA Color) 5:39 PM) [facility] AND [id number] 23:39:00 Test Item Value Reference Range Interpretation Comments UA Turbidity (test code Marked *ABN*(03/06/19 = UA Turbidity) 5:39 PM) [facility] AND [id number] 23:39:00 Test Item Value Reference Range Interpretation Comments UA Spec Grav (test code = UA Spec 1.015 1 Grav) [facility] AND [id number] 23:39:00 Test Item Value Reference Range Interpretation Comments UA pH (test code = UA pH) 7.0 1 5.0-8.0 [facility] AND [id number] 23:39:00 Test Item Value Reference Range Interpretation Comments UA Protein (test code Negative (03/06/19 5:39 = UA Protein) PM) [facility] AND [id number] 23:39:00 Test Item Value Reference Range Interpretation Comments UA Glucose (test code = UA Glucose) 50mg/dl [facility] AND [id number] 23:39:00 Test Item Value Reference Range Interpretation Comments UA Ketones (test code Negative *NA*(03/06/19 = UA Ketones) 5:39 PM) [facility] AND [id number] 23:39:00 Test Item Value Reference Range Interpretation Comments UA Bili (test code = Negative *NA*(03/06/19 UA Bili) 5:39 PM) [facility] [id number] 23:39:00 Test Item Value Reference Range Interpretation Comments UA Blood (test code = Negative (03/06/19 5:39 UA Blood) PM) [facility] [id number] 23:39:00 Test Item Value Reference Range Interpretation Comments UA Urobilinogen (test code = UA no gt 0.1-1.0 Urobilinogen) [facility] [id number] 23:39:00 Test Item Value Reference Range Interpretation Comments UA Nitrite (test code Negative (03/06/19 5:39 = UA Nitrite) PM) [facility]UR[facility] AND [id number] 23:39:00 Test Item Value Reference Range Interpretation Comments UA Leuk Est (test Negative (03/06/19 5:39 code = UA Leuk Est) PM) [facility] [id number] 23:39:00 Test Item Value Reference Range Interpretation Comments UA Sq Epi (test code = None Seen (03/06/19 UA Sq Epi) 5:39 PM) [facility] AND [id number] 23:39:00 Test Item Value Reference Range Interpretation Comments UA Mucus (test code = UA Mucus) Few /LPF [facility] [id number] 23:39:00 Test Item Value Reference Range Interpretation Comments UA Amorph Rani (test code = UA Moderate /HPF Amorph Rani) [facility]annCARDIAC EUSLJKV8769-04-95 23:07:00 Test Item Value Reference Range Interpretation Comments Troponin-I (test code 0.02 See_Comment [Auto mated message] The = Troponin-I) system which g enerated this result transmit guillaume reference range : <=0.40. The reference r madi was not used to interpr et this result as jd l/abnormal. [facility]annCARDIAC [id number] 23:07:00 Test Item Value Reference Range Interpretation Comments Total CK (test code = Total CK) 92 12-191 [facility]annCHEM [id number] 23:07:00 Test Item Value Reference Range Interpretation Comments Lactic Acid Lvl (test code = Lactic 1.3 0.5-2.2 Acid Lvl) [facility] TexasRfidubgUHIXPORLIIVZ4990-33-64 23:07:00 Test Item Value Reference Range Interpretation Comments AGAP (test code = AGAP) 14.1 10.0-20.0 [facility] CenterIrboeeqTTDAQCQWGAUX3472-71-59 23:07:00 Test Item Value Reference Range Interpretation Comments Glucose Lvl (test code = Glucose Lvl) 189 70-99 [facility] CenterBcqyearFXNVNIRNMNEP9147-50-56 23:07:00 Test Item Value Reference Range Interpretation Comments BUN (test code = BUN) 23 7-22 [facility] CenterXaccdtcLYFSZAZPVVMG7091-98-34 23:07:00 Test Item Value Reference Range Interpretation Comments Creatinine Lvl (test code = Creatinine 1.22 0.50-1.40 Lvl) [facility] CenterFlosrikTIFCBZHPMPNK6079-68-72 23:07:00 Test Item Value Reference Range Interpretation Comments Potassium Lvl (test code = Potassium 5.1 3.5-5.1 Lvl) [facility] CenterNipvyugXJBKBRDKSPLJ9988-48-88 23:07:00 Test Item Value Reference Range Interpretation Comments Chloride Lvl (test code = Chloride Lvl) 102 95-109 [facility] CenterXcnkjzcRWBFYJTVBJJX6580-89-11 23:07:00 Test Item Value Reference Range Interpretation Comments CO2 (test code = CO2) 22 24-32 [facility] CenterHaqovhoYWMWMKZFBXHQ2631-54-84 23:07:00 Test Item Value Reference Range Interpretation Comments Calcium Lvl (test code = Calcium Lvl) 8.6 8.5-10.5 [facility] CenterVklincjODWQSWIBEQKD4059-00-75 23:07:00 Test Item Value Reference Range Interpretation Comments eGFR (test code = eGFR) 62 [facility]aleKfohodgJJONGMSQCD1044-63-46 23:07:00 Test Item Value Reference Range Interpretation Comments INR (test code = INR) 0.94 1 0.85-1.17 [facility] [place]valeTaicgvuLRMEBKAZMK9244-16-95 23:07:00 Test Item Value Reference Range Interpretation Comments PT (test code = PT) 12.4 s 12.0-14.7 [facility]valeSkxkllwXDZNCYDNSX7729-30-78 23:07:00 Test Item Value Reference Range Interpretation Comments PTT (test code = PTT) 22.5 s 22.9-35.8 [facility]valeKdnyxocEIOQWHABYR6650-77-66 23:07:00 Test Item Value Reference Range Interpretation Comments Basophils # (test code 0.1 See_Comment [Aut omated message] The = Basophils #) system which generated this result tra nsmitted reference range : <=0.2. The reference r madi was not used to int erpret this result as normal/abnormal . [facility]valeJcxsdzlYVHNHJCZAK9618-87-67 21:50:00 Test Item Value Reference Range Interpretation Comments WBC (test code = WBC) 11.8 3.7-10.4 [facility]valeVritfurUEKMUAMZLK0294-60-35 21:50:00 Test Item Value Reference Range Interpretation Comments RBC (test code = RBC) 2.97 4.70-6.10 [facility]valeImaodusCMCOOSPTRE4308-34-48 21:50:00 Test Item Value Reference Range Interpretation Comments Hgb (test code = Hgb) 9.0 14.0-18.0 [facility]aleYqnscsbRTNSQVMXHV0722-92-77 21:50:00 Test Item Value Reference Range Interpretation Comments Hct (test code = Hct) 28.0 42.0-54.0 [facility]aleOougmwbOKDQNAHSTN9992-61-21 21:50:00 Test Item Value Reference Range Interpretation Comments MCV (test code = MCV) 94.1 80.0-94.0 [facility]valeNyvvovuZZMDYRMEAB6325-17-39 21:50:00 Test Item Value Reference Range Interpretation Comments MCH (test code = MCH) 30.2 pg 27.0-31.0 [facility]valeLwlxnupMHCCPFRBII8888-67-71 21:50:00 Test Item Value Reference Range Interpretation Comments MCHC (test code = MCHC) 32.1 32.0-36.0 [facility]valeUxhwxzoHFHPKYOSBZ4497-54-62 21:50:00 Test Item Value Reference Range Interpretation Comments RDW (test code = RDW) 16.6 11.5-14.5 [facility]valeYmrurdpYTOIEUHQIK5823-50-34 21:50:00 Test Item Value Reference Range Interpretation Comments Platelet (test code = Platelet) 214 133-450 [facility] [place]valePoqppyfFHSUBTYLDE3842-09-02 21:50:00 Test Item Value Reference Range Interpretation Comments MPV (test code = MPV) 9.9 7.4-10.4 [facility]valeEdmyxdyIDATUPJGWT6348-14-05 21:50:00 Test Item Value Reference Range Interpretation Comments Segs (test code = Segs) 78.3 45.0-75.0 [facility]valeKdavijyDIPOKFJLFA0426-84-36 21:50:00 Test Item Value Reference Range Interpretation Comments Lymphocytes (test code = Lymphocytes) 11.1 20.0-40.0 [facility]valeTertwihIAOEPXJWWF9119-29-29 21:50:00 Test Item Value Reference Range Interpretation Comments Monocytes (test code = Monocytes) 8.7 2.0-12.0 [facility]aleRbdfuzoVQNPBXWWPX3069-01-80 21:50:00 Test Item Value Reference Range Interpretation Comments Eosinophils (test code = 1.3 See_Comment [A utomated message] The Eosinophils) system which ge nerated this result tra nsmitted reference range : <=4.0. The reference r madi was not used to int erpret this result as normal/abnormal . [facility]aleMkbbwplPWHLTKFBVT1624-62-89 21:50:00 Test Item Value Reference Range Interpretation Comments Basophils (test code = 0.6 See_Comment [Aut omated message] The Basophils) system which ge nerated this result tra nsmitted reference range : <=1.0. The reference r madi was not used to int erpret this result as normal/abnormal . [facility]aleNgmucbyICWCYOYJOK0393-02-43 21:50:00 Test Item Value Reference Range Interpretation Comments Neutrophils # (test code = Neutrophils 9.2 1.5-8.1 #) [facility]valeSgffsenHGOAPTJIAS7290-58-71 21:50:00 Test Item Value Reference Range Interpretation Comments Lymphocytes # (test code = Lymphocytes 1.3 1.0-5.5 #) [facility]aleHanwlytOOTZKYQRYC0414-27-63 21:50:00 Test Item Value Reference Range Interpretation Comments Monocytes # (test code 1.0 See_Comment [Aut omated message] The = Monocytes #) system which generated this result tra nsmitted reference range : <=0.8. The reference r madi was not used to int erpret this result as normal/abnormal . [facility]valeFlxzlifZRSLVUHTAR4176-53-40 21:50:00 Test Item Value Reference Range Interpretation Comments Eosinophils # (test code 0.2 See_Comment [A utomated message] The = Eosinophils #) system whic h generated this result tra nsmitted reference range : <=0.5. The reference r madi was not used to int erpret this result as normal/abnormal . [facility]aleJpmrmafRKRKMIUQFQ4071-87-72 21:50:00 Test Item Value Reference Range Interpretation Comments Basophils # (test code 0.1 See_Comment [Aut omated message] The = Basophils #) system which generated this result tra nsmitted reference range : <=0.2. The reference r madi was not used to int erpret this result as normal/abnormal . [facility]2019-11-13 14:45:00 Test Item Value Reference Range Interpretation Comments Procalcitonin Lvl (test 0.25 See_Comment [Au tomated message] code = Procalcitonin Lvl) Th e system which generated this result transmitted ref erence range: <=0.10. The reference range was not used to interpr et this result as normal/abnormal . [facility] WsuxoxzAXGNIWKJRARV4547-45-19 14:45:00 Test Item Value Reference Range Interpretation Comments AGAP (test code = AGAP) 7.6 10.0-20.0 [facility]AuotfgrFJZSDLOJQSYU2041-26-72 14:45:00 Test Item Value Reference Range Interpretation Comments Glucose Lvl (test code = Glucose Lvl) 188 70-99 [facility] CenterXcqpghpGLWPMBFPHFBZ8219-46-23 14:45:00 Test Item Value Reference Range Interpretation Comments BUN (test code = BUN) 36 7-22 [facility]IbvodxgKNYWBNHBZFGW0690-35-54 14:45:00 Test Item Value Reference Range Interpretation Comments Creatinine Lvl (test code = Creatinine 1.54 0.50-1.40 Lvl) [facility] CenterDgduzwvUQDJOZSMZLZY3620-46-64 14:45:00 Test Item Value Reference Range Interpretation Comments Sodium Lvl (test code = Sodium Lvl) 151 135-145 [facility] CenterFagekaxPHHSZGTDUMHT6364-12-54 14:45:00 Test Item Value Reference Range Interpretation Comments Potassium Lvl (test code = Potassium 4.6 3.5-5.1 Lvl) [facility] CenterZanrhgpGFEPXJUPGGNH5073-97-86 14:45:00 Test Item Value Reference Range Interpretation Comments Chloride Lvl (test code = Chloride Lvl) 121 95-109 [facility] CenterIfbtantMWKRVVCNOOIL6953-09-65 14:45:00 Test Item Value Reference Range Interpretation Comments CO2 (test code = CO2) 27 24-32 [facility] CenterLmezicdDLLDXVWINVZG6221-23-41 14:45:00 Test Item Value Reference Range Interpretation Comments Calcium Lvl (test code = Calcium Lvl) 8.6 8.5-10.5 [facility] TexasUrfxlzsQEACRDLPMCOY2046-75-20 14:45:00 Test Item Value Reference Range Interpretation Comments eGFR (test code = eGFR) 47 [facility]valeDuvcjgaXRRLCDQMWM1500-23-79 14:45:00 Test Item Value Reference Range Interpretation Comments WBC (test code = WBC) 9.8 3.7-10.4 [facility]valeVrxcaucOZWMGYVJHQ5668-64-78 14:45:00 Test Item Value Reference Range Interpretation Comments RBC (test code = RBC) 2.94 4.70-6.10 [facility]aleAyxfgbzHITNXNKVCA0541-25-87 14:45:00 Test Item Value Reference Range Interpretation Comments Hgb (test code = Hgb) 9.0 14.0-18.0 [facility]valeKjblitsXQUIDHFDEX3049-69-64 14:45:00 Test Item Value Reference Range Interpretation Comments Hct (test code = Hct) 27.6 42.0-54.0 [facility]valeGpdefllFQKMJWTRSZ8459-06-85 14:45:00 Test Item Value Reference Range Interpretation Comments MCV (test code = MCV) 93.9 80.0-94.0 [facility]aleVrzhxcqQQIWFBEPJP8005-81-19 14:45:00 Test Item Value Reference Range Interpretation Comments MCH (test code = MCH) 30.6 pg 27.0-31.0 [facility]aleXscgveeZMFJMBOHKN8316-62-15 14:45:00 Test Item Value Reference Range Interpretation Comments MCHC (test code = MCHC) 32.6 32.0-36.0 [facility]valeBqfduwmKFANNYJEHX2664-16-47 14:45:00 Test Item Value Reference Range Interpretation Comments RDW (test code = RDW) 16.7 11.5-14.5 [facility]aleDwytrloKEGOQMWZLP4407-27-67 14:45:00 Test Item Value Reference Range Interpretation Comments Platelet (test code = Platelet) 77 133-450 [facility]valeNubtembXXVDMEFTXX3809-51-00 14:45:00 Test Item Value Reference Range Interpretation Comments MPV (test code = MPV) 9.8 7.4-10.4 [facility]aleOlkpzltIBICMJMVGT6973-91-31 14:45:00 Test Item Value Reference Range Interpretation Comments RBC Morph (test code = Normal (02/28/19 8:45 RBC Morph) AM) [facility]valeZkdcewjEOZIHPMWKA5259-33-18 14:45:00 Test Item Value Reference Range Interpretation Comments Plt Morph (test code = Normal (02/28/19 8:45 Plt Morph) AM) [facility]aleQftkvqyJNCNGPEQLH0973-86-43 14:45:00 Test Item Value Reference Range Interpretation Comments Segs (test code = Segs) 79.4 45.0-75.0 [facility]valeKylqmilPXXLDDIPAA7134-39-55 14:45:00 Test Item Value Reference Range Interpretation Comments Lymphocytes (test code = Lymphocytes) 12.1 20.0-40.0 [facility]valeDnbvvslTURBTGSVBG5360-20-11 14:45:00 Test Item Value Reference Range Interpretation Comments Monocytes (test code = Monocytes) 7.0 2.0-12.0 [facility]valeRvdkjizNFVQQJGPVH5783-39-16 14:45:00 Test Item Value Reference Range Interpretation Comments Eosinophils (test code = 1.0 See_Comment [A utomated message] The Eosinophils) system which ge nerated this result tra nsmitted reference range : <=4.0. The reference r madi was not used to int erpret this result as normal/abnormal . [facility]valeLghmfsoDFEPJHNONR0416-89-48 14:45:00 Test Item Value Reference Range Interpretation Comments Basophils (test code = 0.5 See_Comment [Aut omated message] The Basophils) system which ge nerated this result tra nsmitted reference range : <=1.0. The reference r madi was not used to int erpret this result as normal/abnormal . [facility]aleFitrcrlYZDWGHIOXN8773-57-65 14:45:00 Test Item Value Reference Range Interpretation Comments Neutrophils # (test code = Neutrophils 7.8 1.5-8.1 #) [facility]valeFpadwjfOYDJMRUTEJ2830-44-51 14:45:00 Test Item Value Reference Range Interpretation Comments Lymphocytes # (test code = Lymphocytes 1.2 1.0-5.5 #) [facility]valeHrawuqaVTHBWRLOXJ2223-78-53 14:45:00 Test Item Value Reference Range Interpretation Comments Monocytes # (test code 0.7 See_Comment [Aut omated message] The = Monocytes #) system which generated this result tra nsmitted reference range : <=0.8. The reference r madi was not used to int erpret this result as normal/abnormal . [facility]valeHzrczkmPVKHJNCCHH1075-28-63 14:45:00 Test Item Value Reference Range Interpretation Comments Eosinophils # (test code 0.1 See_Comment [A utomated message] The = Eosinophils #) system whic h generated this result tra nsmitted reference range : <=0.5. The reference r madi was not used to int erpret this result as normal/abnormal . [facility]aleXttgwzgASWMZYKTAD6899-04-19 14:45:00 Test Item Value Reference Range Interpretation Comments Basophils # (test code 0.1 See_Comment [Aut omated message] The = Basophils #) system which generated this result tra nsmitted reference range : <=0.2. The reference r madi was not used to int erpret this result as normal/abnormal . [facility]2019-11-13 10:00:00 Test Item Value Reference Range Interpretation Comments Procalcitonin Lvl (test 0.29 See_Comment [Au tomated message] code = Procalcitonin Lvl) Th e system which generated this result transmitted ref erence range: <=0.10. The reference range was not used to interpr et this result as normal/abnormal . [facility]2019-11-12 06:32:00 Test Item Value Reference Range Interpretation Comments Procalcitonin Lvl (test 0.41 See_Comment [Au tomated message] code = Procalcitonin Lvl) Th e system which generated this result transmitted ref erence range: <=0.10. The reference range was not used to interpr et this result as normal/abnormal . [facility]2019-11-11 10:27:00 Test Item Value Reference Range Interpretation Comments Glucose Lvl (test code = Glucose Lvl) 151 70-99 [facility]2019-11-11 10:27:00 Test Item Value Reference Range Interpretation Comments BUN (test code = BUN) 37 7-22 [facility]2019-11-11 10:27:00 Test Item Value Reference Range Interpretation Comments Creatinine Lvl (test code = Creatinine 1.66 0.50-1.40 Lvl) [facility]2019-11-11 10:27:00 Test Item Value Reference Range Interpretation Comments Sodium Lvl (test code = Sodium Lvl) 154 135-145 [facility]2019-11-11 10:27:00 Test Item Value Reference Range Interpretation Comments Potassium Lvl (test code = Potassium 4.9 3.5-5.1 Lvl) [facility]2019-11-11 10:27:00 Test Item Value Reference Range Interpretation Comments Chloride Lvl (test code = Chloride Lvl) 125 95-109 [facility]2019-11-11 10:27:00 Test Item Value Reference Range Interpretation Comments CO2 (test code = CO2) 26 24-32 [facility]2019-11-11 10:27:00 Test Item Value Reference Range Interpretation Comments Calcium Lvl (test code = Calcium Lvl) 8.3 8.5-10.5 [facility]2019-11-11 10:27:00 Test Item Value Reference Range Interpretation Comments eGFR (test code = eGFR) 42 [facility]2019-11-11 10:27:00 Test Item Value Reference Range Interpretation Comments AGAP (test code = AGAP) 7.9 10.0-20.0 [facility]aleNhmqykbIWQVRXNKZM0140-38-30 10:27:00 Test Item Value Reference Range Interpretation Comments WBC (test code = WBC) 11.7 3.7-10.4 [facility]aleGgepjzwBUNUNTGBBD0482-82-04 10:27:00 Test Item Value Reference Range Interpretation Comments RBC (test code = RBC) 2.73 4.70-6.10 [facility]valeBdaovhtVNYWBVXRMB7348-32-94 10:27:00 Test Item Value Reference Range Interpretation Comments Hgb (test code = Hgb) 7.9 14.0-18.0 [facility]valeIptcyznOBLSSLYNVR4151-02-92 10:27:00 Test Item Value Reference Range Interpretation Comments Hct (test code = Hct) 25.7 42.0-54.0 [facility]valeChzavchTPDLRONTBO9126-82-91 10:27:00 Test Item Value Reference Range Interpretation Comments MCV (test code = MCV) 94.1 80.0-94.0 [facility]valeNfqudsyKOOPQICGQD5609-37-46 10:27:00 Test Item Value Reference Range Interpretation Comments MCH (test code = MCH) 29.1 pg 27.0-31.0 [facility]valeIqxvgzsWBWGEHKWOZ7009-52-28 10:27:00 Test Item Value Reference Range Interpretation Comments MCHC (test code = MCHC) 30.9 32.0-36.0 [facility]aleTpuepsnVFLXJOTKOE3627-49-95 10:27:00 Test Item Value Reference Range Interpretation Comments RDW (test code = RDW) 16.8 11.5-14.5 [facility]valeQgrwqobSIMBFEMTKN4209-20-89 10:27:00 Test Item Value Reference Range Interpretation Comments Platelet (test code = Platelet) 148 133-450 [facility]valeNvijfdrXRFOOROELN7725-99-16 10:27:00 Test Item Value Reference Range Interpretation Comments MPV (test code = MPV) 10.5 7.4-10.4 [facility]valeQoxthtiAOPBUHVFAY0580-42-35 10:27:00 Test Item Value Reference Range Interpretation Comments Segs (test code = Segs) 81.9 45.0-75.0 [facility]valeXbxbnrqSKPUCMYOHI4755-23-78 10:27:00 Test Item Value Reference Range Interpretation Comments Lymphocytes (test code = Lymphocytes) 8.6 20.0-40.0 [facility]valeJadxywtGRAMSDWSZA8497-07-29 10:27:00 Test Item Value Reference Range Interpretation Comments Monocytes (test code = Monocytes) 7.9 2.0-12.0 [facility]aleDoaqnbvAKXIUTGXTS9939-93-59 10:27:00 Test Item Value Reference Range Interpretation Comments Eosinophils (test code = 1.2 See_Comment [A utomated message] The Eosinophils) system which ge nerated this result tra nsmitted reference range : <=4.0. The reference r madi was not used to int erpret this result as normal/abnormal . [facility]valeAbzhaveOJDQWWFHIE0988-06-03 10:27:00 Test Item Value Reference Range Interpretation Comments Basophils (test code = 0.4 See_Comment [Aut omated message] The Basophils) system which ge nerated this result tra nsmitted reference range : <=1.0. The reference r madi was not used to int erpret this result as normal/abnormal . [facility]aleNntkohaGRLYOUSIFP7004-22-62 10:27:00 Test Item Value Reference Range Interpretation Comments Neutrophils # (test code = Neutrophils 9.6 1.5-8.1 #) [facility]aleThcvjdfXASLENBIKU3683-12-09 10:27:00 Test Item Value Reference Range Interpretation Comments Lymphocytes # (test code = Lymphocytes 1.0 1.0-5.5 #) [facility]valeDpvujepNICYYBRKRT3516-96-33 10:27:00 Test Item Value Reference Range Interpretation Comments Monocytes # (test code 0.9 See_Comment [Aut omated message] The = Monocytes #) system which generated this result tra nsmitted reference range : <=0.8. The reference r madi was not used to int erpret this result as normal/abnormal . [facility]aleVwebbpiBLVPHVBFKO9272-77-02 10:27:00 Test Item Value Reference Range Interpretation Comments Eosinophils # (test code 0.1 See_Comment [A utomated message] The = Eosinophils #) system whic h generated this result tra nsmitted reference range : <=0.5. The reference r madi was not used to int erpret this result as normal/abnormal . [facility]2019-11-10 11:00:00 Test Item Value Reference Range Interpretation Comments Glucose Lvl (test code = Glucose Lvl) 179 70-99 [facility]2019-11-10 11:00:00 Test Item Value Reference Range Interpretation Comments BUN (test code = BUN) 39 7-22 [facility]2019-11-10 11:00:00 Test Item Value Reference Range Interpretation Comments Creatinine Lvl (test code = Creatinine 1.79 0.50-1.40 Lvl) [facility]2019-11-10 11:00:00 Test Item Value Reference Range Interpretation Comments Sodium Lvl (test code = Sodium Lvl) 155 135-145 [facility]2019-11-10 11:00:00 Test Item Value Reference Range Interpretation Comments Potassium Lvl (test code = Potassium 4.1 3.5-5.1 Lvl) [facility]2019-11-10 11:00:00 Test Item Value Reference Range Interpretation Comments Chloride Lvl (test code = Chloride Lvl) 125 95-109 [facility]2019-11-10 11:00:00 Test Item Value Reference Range Interpretation Comments CO2 (test code = CO2) 26 24-32 [facility]2019-11-10 11:00:00 Test Item Value Reference Range Interpretation Comments Calcium Lvl (test code = Calcium Lvl) 7.9 8.5-10.5 [facility]2019-11-10 11:00:00 Test Item Value Reference Range Interpretation Comments eGFR (test code = eGFR) 39 [facility]2019-11-10 11:00:00 Test Item Value Reference Range Interpretation Comments AGAP (test code = AGAP) 8.1 10.0-20.0 [facility] [id number] 10:26:00 Test Item Value Reference Range Interpretation Comments ABO/Rh (test code = ABO/Rh) O POS [facility] [id number] 10:26:00 Test Item Value Reference Range Interpretation Comments Antibody Scrn (test Negative (02/23/19 4:26 code = Antibody Scrn) AM) [facility] [id number] 10:26:00 Test Item Value Reference Range Interpretation Comments Magnesium Lvl (test code = Magnesium 2.4 1.8-2.4 Lvl) [facility] [id number] 10:26:00 Test Item Value Reference Range Interpretation Comments Phosphorus (test code = Phosphorus) 2.6 2.5-4.5 [facility] [id number] 10:26:00 Test Item Value Reference Range Interpretation Comments Total Protein (test code = Total 5.2 6.4-8.4 Protein) [facility] [id number] 10:26:00 Test Item Value Reference Range Interpretation Comments Albumin Lvl (test code = Albumin Lvl) 2.4 3.5-5.0 [facility] [id number] 10:26:00 Test Item Value Reference Range Interpretation Comments ALT (test code = ALT) 23 See_Comment [Auto mated message] The system which ge nerated this result transmit guillaume reference range : <=65. The reference range was not used to interpr et this result as jd l/abnormal. [facility] WGKYR2499-56-85 10:26:00 Test Item Value Reference Range Interpretation Comments AST (test code = AST) 41 See_Comment [Auto mated message] The system which ge nerated this result transmit guillaume reference range : <=37. The reference range was not used to interpr et this result as jd l/abnormal. [facility] PDXOQ1107-28-18 10:26:00 Test Item Value Reference Range Interpretation Comments Alk Phos (test code = Alk Phos) 53 39-136 [facility] [id number] 10:26:00 Test Item Value Reference Range Interpretation Comments Bili Total (test code = Bili Total) 2.1 0.2-1.3 [facility]2019-11-08 10:26:00 Test Item Value Reference Range Interpretation Comments B/C Ratio (test code = B/C Ratio) 20 1 6-25 [facility]2019-11-08 10:26:00 Test Item Value Reference Range Interpretation Comments Globulin (test code = Globulin) 2.8 2.7-4.2 [facility]2019-11-08 10:26:00 Test Item Value Reference Range Interpretation Comments A/G Ratio (test code = A/G Ratio) 0.9 1 0.7-1.6 [facility] AtlantaQqknlotVBPEXW3121-26-80 10:26:00 Test Item Value Reference Range Interpretation Comments Trig (test code = Trig) 175 [facility]2019-11-07 07:32:00 Test Item Value Reference Range Interpretation Comments Magnesium Lvl (test code = Magnesium 2.6 1.8-2.4 Lvl) [facility]2019-11-07 07:32:00 Test Item Value Reference Range Interpretation Comments Phosphorus (test code = Phosphorus) 2.7 2.5-4.5 [facility] AtlantaEkueycaRWPCIT0332-23-85 07:32:00 Test Item Value Reference Range Interpretation Comments Trig (test code = Trig) 147 [facility] BYGJPAS9764-07-23 07:32:00 Test Item Value Reference Range Interpretation Comments Ca Ion WB (test code = Ca Ion WB) 1.22 1.05-1.25 [facility] [id number] 07:32:00 Test Item Value Reference Range Interpretation Comments Ca Norm WB (test code = Ca Norm WB) 1.24 1.05-1.25 [facility]valeVcdrgmgUPZDFRFGWM6301-10-59 12:43:00 Test Item Value Reference Range Interpretation Comments ACT (TEG) Rapid (test code = ACT (TEG) 97 s 86-118 Rapid) [facility]valeHycxjkkKLTETAXNCT7673-23-62 12:43:00 Test Item Value Reference Range Interpretation Comments Split Point Rapid (test code = Split 0.3 min Point Rapid) [facility] SunnyvaleNptsktxARCFCONVUO2567-93-86 12:43:00 Test Item Value Reference Range Interpretation Comments R-time Rapid (test code = R-time 0.5 min 0.4-0.7 Rapid) [facility]valeOexuwwsEDLLNRUVZQ3631-15-17 12:43:00 Test Item Value Reference Range Interpretation Comments K-time Rapid (test code = K-time 1.0 min 0.6-2.3 Rapid) [facility]valeMnpuiooWJSNGQEYFW2761-63-00 12:43:00 Test Item Value Reference Range Interpretation Comments Angle Rapid (test code = Angle 77 degrees 64-80 Rapid) [facility]valeEffrwpdSFPAKSWVSF4526-50-73 12:43:00 Test Item Value Reference Range Interpretation Comments Max Amplitude Rapid (test code = Max 68 mm 52-71 Amplitude Rapid) [facility]valeOrwgwabMXZENLNQXB1082-17-10 12:43:00 Test Item Value Reference Range Interpretation Comments G-value Rapid (test code = G-value 10.7 5.0-11.6 Rapid) [facility]valeCqvbayyVIHBKQDGPN4102-27-21 12:43:00 Test Item Value Reference Range Interpretation Comments Estimated % Lysis Rapid 0.0 See_Comment [Au tomated message] The (test code = Estimated syste m which generated % Lysis Rapid) this result t ransmitted reference range : <=7.5. The reference r madi was not used to int erpret this result as normal/abnormal . [facility]valeErjfuijCEBPQKNVHQ7136-23-63 12:20:00 Test Item Value Reference Range Interpretation Comments PTT (test code = PTT) 27.4 s 22.9-35.8 [facility] SunnyvaleKvdtajcRSQIXYJPZO9541-15-74 12:20:00 Test Item Value Reference Range Interpretation Comments PT (test code = PT) 15.1 s 12.0-14.7 [facility]valeQiuhwbcQMDLNBIWKS9763-44-92 12:20:00 Test Item Value Reference Range Interpretation Comments INR (test code = INR) 1.21 1 0.85-1.17 [facility] [id number] 10:44:00 Test Item Value Reference Range Interpretation Comments Phosphorus (test code = Phosphorus) 2.6 2.5-4.5 [facility]CHE[facility] [id number] 10:44:00 Test Item Value Reference Range Interpretation Comments Magnesium Lvl (test code = Magnesium 2.7 1.8-2.4 Lvl) [facility] HospitalPARATHYROID [id number] 10:44:00 Test Item Value Reference Range Interpretation Comments Ca Ion WB (test code = Ca Ion WB) 1.19 1.05-1.25 [facility] [employer] [id number] 10:44:00 Test Item Value Reference Range Interpretation Comments Ca Norm WB (test code = Ca Norm WB) 1.21 1.05-1.25 [employer] [id number] 10:03:00 Test Item Value Reference Range Interpretation Comments Antibody Scrn (test Negative (02/19/19 4:03 code = Antibody Scrn) AM) [employer] [id number] 10:03:00 Test Item Value Reference Range Interpretation Comments ABO/Rh (test code = ABO/Rh) O POS [facility] [employer] [id number] 09:06:00 Test Item Value Reference Range Interpretation Comments Ca Ion WB (test code = Ca Ion WB) 1.23 1.05-1.25 [employer]2019-11-04 09:06:00 Test Item Value Reference Range Interpretation Comments Ca Norm WB (test code = Ca Norm WB) 1.27 1.05-1.25 [employer] [id number] 10:00:00 Test Item Value Reference Range Interpretation Comments Platelet product (test Product available code = Platelet (02/17/19 5:00 AM) product) [employer]2019-11-02 08:12:00 Test Item Value Reference Range Interpretation Comments Troponin-I (test code 0.04 See_Comment [Auto mated message] The = Troponin-I) system which g enerated this result transmit guillaume reference range : <=0.40. The reference r madi was not used to interpr et this result as jd l/abnormal. [employer]2019-11-02 08:12:00 Test Item Value Reference Range Interpretation Comments Total CK (test code = Total CK) 1802 12-191 [facility] [employer]2019-11-02 08:12:00 Test Item Value Reference Range Interpretation Comments CK MB (test code = CK MB) 4.7 0.5-3.6 VMob2019-11-02 08:12:00 Test Item Value Reference Range Interpretation Comments CK MB Index (test 0.3 1 See_Comment [Automate d message] The code = CK MB Index) system w [facility] generated this result transmit guillaume reference range : <=2.5. The reference range was not used to interpr et this result as jd l/abnormal. [facility]2019-11-02 08:12:00 Test Item Value Reference Range Interpretation Comments U Sodium (test code = U Sodium) 27 [facility]2019-11-02 08:12:00 Test Item Value Reference Range Interpretation Comments U Creatinine (test code = U 133.00 Creatinine) [facility]aleVenqpgbZXUYRANUXH9441-23-09 07:56:00 Test Item Value Reference Range Interpretation Comments TEG Interp (test Thrombelastograph results code = TEG show shortened value of R. 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 CPT:18449 [facility]aleMrlrefuEOOSJFIJBA2156-43-17 07:56:00 Test Item Value Reference Range Interpretation Comments R-time (test code = R-time) 4.3 min 5.0-10.0 [facility]aleWesxnasBENHGGSTGK5496-03-02 07:56:00 Test Item Value Reference Range Interpretation Comments K-time (test code = K-time) 2.2 min 1.0-3.0 [facility]aleHwoqsihVRKFCJSNQU9951-33-14 07:56:00 Test Item Value Reference Range Interpretation Comments Angle (test code = Angle) 61.0 degrees 53.0-72.0 [facility]aleNewthwbWCSSXXGNJQ1624-91-69 07:56:00 Test Item Value Reference Range Interpretation Comments Max Amp (test code = Max Amp) 57.1 mm 50.0-70.0 [facility]aleEksxytbYRYZPKBELM2746-34-60 07:56:00 Test Item Value Reference Range Interpretation Comments G-value (test code = G-value) 6.7 4.5-11.0 [facility]aleHrjuomaNXQYFUKPPL3266-67-07 07:56:00 Test Item Value Reference Range Interpretation Comments Ly30 (test code = 0.5 See_Comment [Automate d message] The Ly30) system which ge nerated this result transmit guillaume reference range : <=7.5. The reference range was not used to interpr et this result as jd l/abnormal. [facility]valePrqoitxUXJGGZNHNJ3017-76-18 07:56:00 Test Item Value Reference Range Interpretation Comments Coag Index (test code 0.2 1 See_Comment [Auto mated message] The = Coag Index) system which g enerated this result transmit guillaume reference range : <=3.0. The reference range was not used to interpr et this result as jd l/abnormal. [facility]valeAnmvccaQWDCNTGQHP4412-71-63 07:56:00 Test Item Value Reference Range Interpretation Comments TEG Data (test code = See Note (02/17/19 2:56 TEG Data) AM) [facility]valeBouwneoMDKIFXBUYT4296-96-99 07:56:00 Test Item Value Reference Range Interpretation Comments PTT (test code = PTT) 28.8 s 22.9-35.8 [facility] SunnyvaleIeadktiSPPACXCUZT6659-90-25 07:56:00 Test Item Value Reference Range Interpretation Comments PT (test code = PT) 15.4 s 12.0-14.7 [facility]valeFatcvoyLPVBEEJEOO2513-09-47 07:56:00 Test Item Value Reference Range Interpretation Comments INR (test code = INR) 1.24 1 0.85-1.17 [facility]aleKqrqwyoVZIWHYUHUU9232-66-16 11:32:00 Test Item Value Reference Range Interpretation Comments PTT (test code = PTT) 30.8 s 22.9-35.8 [facility]valeTqrybcvWRHAPHHIAL6853-27-80 11:32:00 Test Item Value Reference Range Interpretation Comments PT (test code = PT) 16.0 s 12.0-14.7 [facility]valeMusdjkwBNNVBPHSOV3566-32-45 11:32:00 Test Item Value Reference Range Interpretation Comments INR (test code = INR) 1.31 1 0.85-1.17 [facility]valeJnwkxyvOETCTAKVKT0488-30-22 11:32:00 Test Item Value Reference Range Interpretation Comments R-time (test code = R-time) 3.7 min 5.0-10.0 [facility]valeDezcwrwEHJZVTQLEZ1909-45-57 11:32:00 Test Item Value Reference Range Interpretation Comments K-time (test code = K-time) 1.5 min 1.0-3.0 [facility]valeUzanevyHAZSUBKISP8676-81-78 11:32:00 Test Item Value Reference Range Interpretation Comments Angle (test code = Angle) 67.7 degrees 53.0-72.0 [facility]valeShilpidFMHTSGEESM9933-82-04 11:32:00 Test Item Value Reference Range Interpretation Comments Max Amp (test code = Max Amp) 62.5 mm 50.0-70.0 [facility]valeNuihlryXMGUBPFXUJ4848-63-93 11:32:00 Test Item Value Reference Range Interpretation Comments G-value (test code = G-value) 8.3 4.5-11.0 [facility]valeZlkrtdnLDEEXIXKKH8111-37-91 11:32:00 Test Item Value Reference Range Interpretation Comments Ly30 (test code = 0.0 See_Comment [Automate d message] The Ly30) system which ge nerated this result transmit guillaume reference range : <=7.5. The reference range was not used to interpr et this result as jd l/abnormal. [facility]valeEacsotlDVENOMOKKA2380-52-16 11:32:00 Test Item Value Reference Range Interpretation Comments Coag Index (test code 2.0 1 See_Comment [Auto mated message] The = Coag Index) system which g enerated this result transmit guillaume reference range : <=3.0. The reference range was not used to interpr et this result as jd l/abnormal. [facility]valeJztusytXLVKHFRYVP4540-22-54 11:32:00 Test Item Value Reference Range Interpretation Comments TEG Data (test code = See Note (02/16/19 6:32 TEG Data) AM) [facility]aleBpgpwcpCONFFKUEJX3992-29-50 11:32:00 Test Item Value Reference Range Interpretation Comments TEG Interp (test Thrombelastograph results code = TEG show shortened value of R. 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 CPT:24392 [facility] [id number] 15:35:00 Test Item Value Reference Range Interpretation Comments Culture: Urine (test code = No Growth Culture: Urine) [facility]CARDIAC [id number] 15:18:00 Test Item Value Reference Range Interpretation Comments Troponin-I (test code 0.06 See_Comment [Auto mated message] The = Troponin-I) system which g enerated this result transmit guillaume reference range : <=0.40. The reference r madi was not used to interpr et this result as jd l/abnormal. [facility] HospitalDR[facility] [id number] 14:46:00 Test Item Value Reference Range Interpretation Comments U Amph Scr (test code Negative *NA*(02/15/19 = U Amph Scr) 9:46 AM) [facility] [id number] 14:46:00 Test Item Value Reference Range Interpretation Comments U Roya Scr (test code Negative *NA*(02/15/19 = U Roya Scr) 9:46 AM) [facility] [id number] 14:46:00 Test Item Value Reference Range Interpretation Comments U Benzodiaz Scr (test Positive code = U Benzodiaz Scr) *ABN*(02/15/19 9:46 AM) [facility] [id number] 14:46:00 Test Item Value Reference Range Interpretation Comments U Cocaine Scr (test Negative *NA*(02/15/19 code = U Cocaine Scr) 9:46 AM) [facility] [id number] 14:46:00 Test Item Value Reference Range Interpretation Comments U Cannab Scr (test Negative *NA*(02/15/19 code = U Cannab Scr) 9:46 AM) [facility] [id number] 14:46:00 Test Item Value Reference Range Interpretation Comments U Opiate Scr (test Negative *NA*(02/15/19 code = U Opiate Scr) 9:46 AM) [facility] [id number] 14:46:00 Test Item Value Reference Range Interpretation Comments U Phencyclidine Scr (test Negative code = U Phencyclidine *NA*(02/15/19 9:46 Scr) AM) [facility] [id number] 14:46:00 Test Item Value Reference Range Interpretation Comments UDS Note (test code = See Note (02/15/19 9:46 UDS Note) AM) [facility] [id number] 14:46:00 Test Item Value Reference Range Interpretation Comments UA Color (test code = Marlena *ABN*(02/15/19 UA Color) 9:46 AM) [facility] [id number] 14:46:00 Test Item Value Reference Range Interpretation Comments UA Turbidity (test code Marked *ABN*(02/15/19 = UA Turbidity) 9:46 AM) [facility] [id number] 14:46:00 Test Item Value Reference Range Interpretation Comments UA Spec Grav (test code = UA Spec 1.047 1 Grav) [facility] AND [id number] 14:46:00 Test Item Value Reference Range Interpretation Comments UA pH (test code = UA pH) 5.0 1 5.0-8.0 [facility] AND [id number] 14:46:00 Test Item Value Reference Range Interpretation Comments UA Protein (test code = UA Protein) 30 mg/dL [facility] AND [id number] 14:46:00 Test Item Value Reference Range Interpretation Comments UA Glucose (test code = UA Negative mg/dL Glucose) [facility] AND [id number] 14:46:00 Test Item Value Reference Range Interpretation Comments UA Ketones (test code = UA Negative mg/dL Ketones) [facility] AND [id number] 14:46:00 Test Item Value Reference Range Interpretation Comments UA Bili (test code = Negative *NA*(02/15/19 UA Bili) 9:46 AM) [facility] AND [id number] 14:46:00 Test Item Value Reference Range Interpretation Comments UA Blood (test code = Moderate *ABN*(02/15/19 UA Blood) 9:46 AM) [facility] AND [id number] 14:46:00 Test Item Value Reference Range Interpretation Comments UA Urobilinogen (test code = UA no gt 0.1-1.0 Urobilinogen) [facility] AND [id number] 14:46:00 Test Item Value Reference Range Interpretation Comments UA Nitrite (test code Negative (02/15/19 9:46 = UA Nitrite) AM) [facility] AND [id number] 14:46:00 Test Item Value Reference Range Interpretation Comments UA Leuk Est (test Moderate *ABN*(02/15/19 code = UA Leuk Est) 9:46 AM) [facility] AND [id number] 14:46:00 Test Item Value Reference Range Interpretation Comments UA Sq Epi (test code = UA Sq Occasional /LPF Epi) [facility] AND [id number] 14:46:00 Test Item Value Reference Range Interpretation Comments UA WBC (test code = 57 See_Comment [Automa guillaume message] The UA WBC) system which ge nerated this result transmit guillaume reference range : <=5. The reference range was not used to interpr et this result as jd l/abnormal. [facility] AND [id number] 14:46:00 Test Item Value Reference Range Interpretation Comments UA RBC (test code = 40 See_Comment [Automa guillaume message] The UA RBC) system which ge nerated this result transmit guillaume reference range : <=2. The reference range was not used to interpr et this result as jd l/abnormal. [facility] AND [id number] 14:46:00 Test Item Value Reference Range Interpretation Comments UA Bacteria (test code = UA Few /HPF Bacteria) [facility] AND [id number] 14:46:00 Test Item Value Reference Range Interpretation Comments UA Mucus (test code = UA Mucus) Few /LPF [facility] AND [id number] 14:46:00 Test Item Value Reference Range Interpretation Comments UA Amorph Rani (test code = Occasional /HPF UA Amorph Rani) [facility] AND [id number] 14:46:00 Test Item Value Reference Range Interpretation Comments UA Hyal Cast (test 5 See_Comment [Automat ed message] The code = UA Hyal Cast) system which generated this result transmit guillaume reference range : <=2. The reference range was not used to interpr et this result as jd l/abnormal. [facility] HospitalCopsForHireOOD BANK [id number] 12:47:00 Test Item Value Reference Range Interpretation Comments Platelet product (test Product available code = Platelet (02/15/19 7:47 AM) product) [facility] HospitalCARDIAC [id number] 11:13:00 Test Item Value Reference Range Interpretation Comments CK MB (test code = CK MB) 15.5 0.5-3.6 [facility] HospitalCARVirtuaGymAC [id number] 11:13:00 Test Item Value Reference Range Interpretation Comments CK MB Index (test 0.9 1 See_Comment [Automate d message] The code = CK MB Index) system w [facility] generated this result transmit guillaume reference range : <=2.5. The reference range was not used to interpr et this result as jd l/abnormal. [facility] TexasBatzu MediaCARDIAC [id number] 11:13:00 Test Item Value Reference Range Interpretation Comments Total CK (test code = Total CK) 1785 [facility] Wise ConnectannCARDIAC [id number] 11:13:00 Test Item Value Reference Range Interpretation Comments Troponin-I (test code 0.07 See_Comment [Auto mated message] The = Troponin-I) system which g enerated this result transmit guillaume reference range : <=0.40. The reference r madi was not used to interpr et this result as jd l/abnormal. [facility] ConnectannBACTERIAL - [id number] 03:45:00 Test Item Value Reference Range Interpretation Comments MRSA by PCR (test Negative (02/14/19 10:45 code = MRSA by PCR) PM) [facility] ConnectannCARDIAC [id number] 03:45:00 Test Item Value Reference Range Interpretation Comments Total CK (test code = Total CK) 176 [facility] ConnectannCARVirtuaGymAC [id number] 03:45:00 Test Item Value Reference Range Interpretation Comments CK MB (test code = CK MB) 19.5 0.5-3.6 [facility] TexasannCARVirtuaGymAC [id number] 03:45:00 Test Item Value Reference Range Interpretation Comments CK MB Index (test 1.1 1 See_Comment [Automate d message] The code = CK MB Index) system w [facility] generated this result transmit guillaume reference range : <=2.5. The reference range was not used to interpr et this result as jd l/abnormal. [facility] [id number] 03:45:00 Test Item Value Reference Range Interpretation Comments Lactic Acid Lvl (test code = Lactic 1.8 0.5-2.2 Acid Lvl) [facility] [id number] 03:45:00 Test Item Value Reference Range Interpretation Comments Total Protein (test code = Total 5.3 6.4-8.4 Protein) [facility] [id number] 03:45:00 Test Item Value Reference Range Interpretation Comments Albumin Lvl (test code = Albumin Lvl) 3.0 3.5-5.0 [facility] [id number] 03:45:00 Test Item Value Reference Range Interpretation Comments ALT (test code = ALT) 25 See_Comment [Auto mated message] The system which ge nerated this result transmit guillaume reference range : <=65. The reference range was not used to interpr et this result as jd l/abnormal. [facility]2019-10-31 03:45:00 Test Item Value Reference Range Interpretation Comments AST (test code = AST) 54 See_Comment [Auto mated message] The system which ge nerated this result transmit guillaume reference range : <=37. The reference range was not used to interpr et this result as jd l/abnormal. [facility]2019-10-31 03:45:00 Test Item Value Reference Range Interpretation Comments Alk Phos (test code = Alk Phos) 55 39-136 [facility]2019-10-31 03:45:00 Test Item Value Reference Range Interpretation Comments Bili Total (test code = Bili Total) 1.1 0.2-1.3 [facility]2019-10-31 03:45:00 Test Item Value Reference Range Interpretation Comments B/C Ratio (test code = B/C Ratio) 18 1 6-25 [facility]2019-10-31 03:45:00 Test Item Value Reference Range Interpretation Comments Globulin (test code = Globulin) 2.3 2.7-4.2 [facility]2019-10-31 03:45:00 Test Item Value Reference Range Interpretation Comments A/G Ratio (test code = A/G Ratio) 1.3 1 0.7-1.6 [id number] 03:45:00 Test Item Value Reference Range Interpretation Comments TEG Interp (test Thrombelastograph results code = TEG show shortened value of R. 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 CPT:28383 [facility] SunnyvaleOargyatHVCFRCBGZI6807-25-04 03:45:00 Test Item Value Reference Range Interpretation Comments R-time (test code = R-time) 4.1 min 5.0-10.0 [facility] SunnyvaleFteeyqbCCYZERKLQJ9618-48-03 03:45:00 Test Item Value Reference Range Interpretation Comments K-time (test code = K-time) 2.2 min 1.0-3.0 [id number] 03:45:00 Test Item Value Reference Range Interpretation Comments Angle (test code = Angle) 61.4 degrees 53.0-72.0 [facility]valeWtxumyxLWMGPZQXGR3501-08-36 03:45:00 Test Item Value Reference Range Interpretation Comments Max Amp (test code = Max Amp) 54.2 mm 50.0-70.0 [facility] Su[id number] 03:45:00 Test Item Value Reference Range Interpretation Comments G-value (test code = G-value) 5.9 4.5-11.0 [id number] 03:45:00 Test Item Value Reference Range Interpretation Comments Ly30 (test code = 0.0 See_Comment [Automate d message] The Ly30) system which ge nerated this result transmit guillaume reference range : <=7.5. The reference range was not used to interpr et this result as jd l/abnormal. [facility] SunnyvaleGecbmanDENYQLTSJF4625-59-92 03:45:00 Test Item Value Reference Range Interpretation Comments Coag Index (test code 0.0 1 See_Comment [Auto mated message] The = Coag Index) system which g enerated this result transmit guillaume reference range : <=3.0. The reference range was not used to interpr et this result as jd l/abnormal. [facility]valeXqkmsbgPQRHWIDZWG6083-51-12 03:45:00 Test Item Value Reference Range Interpretation Comments TEG Data (test code = See Note (02/14/19 TEG Data) 10:45 PM) [facility] [id number] 22:15:00 Test Item Value Reference Range Interpretation Comments ABO/Rh (test code = ABO/Rh) O POS [facility] [id number] 22:15:00 Test Item Value Reference Range Interpretation Comments Antibody Scrn (test Negative (02/14/19 code = Antibody Scrn) 5:15 PM) [facility]CHE[facility] [id number] 22:15:00 Test Item Value Reference Range Interpretation Comments Lactic Acid Lvl (test code = Lactic 1.5 0.5-2.2 Acid Lvl) [id number] 22:15:00 Test Item Value Reference Range Interpretation Comments ACT (TEG) Rapid (test code = ACT (TEG) 136 s 86-118 Rapid) [facility] Su[id number] 22:15:00 Test Item Value Reference Range Interpretation Comments Split Point Rapid (test code = Split 0.8 min Point Rapid) [facility] SunnyvaleWugnnmfHEZHJNWPOW5198-05-48 22:15:00 Test Item Value Reference Range Interpretation Comments R-time Rapid (test code = R-time 0.9 min 0.4-0.7 Rapid) [facility] Su[id number] 22:15:00 Test Item Value Reference Range Interpretation Comments K-time Rapid (test code = K-time 2.2 min 0.6-2.3 Rapid) [id number] 22:15:00 Test Item Value Reference Range Interpretation Comments Angle Rapid (test code = Angle 68 degrees 64-80 Rapid) [facility]valeKmyykdrBLENBRZTLM9637-93-83 22:15:00 Test Item Value Reference Range Interpretation Comments Max Amplitude Rapid (test code = Max 57 mm 52-71 Amplitude Rapid) [facility] Su[id number] 22:15:00 Test Item Value Reference Range Interpretation Comments G-value Rapid (test code = G-value 6.6 5.0-11.6 Rapid) [id number] 22:15:00 Test Item Value Reference Range Interpretation Comments Estimated % Lysis Rapid 0.0 See_Comment [Au tomated message] The (test code = Estimated syste m which generated % Lysis Rapid) this result t ransmitted reference range : <=7.5. The reference r madi was not used to int erpret this result as normal/abnormal . [place] [id number] 22:15:00 Test Item Value Reference Range Interpretation Comments Ethanol Lvl (test code = Ethanol Lvl) no gt [place] [id number] 22:15:00 Test Item Value Reference Range Interpretation Comments Etoh (%) (test code = Etoh (%)) no [facility]
--- NOTE | 2021-08-20 18:33 | R.HP ---
HISTORY AND PHYSICAL FACILITY: [facility] ENCOUNTER DATE AND TIME: 08/20/2021 18:22 (CDT) MR#: [id number] NAME BETO MONTANA ADDRESS: [address] [place] [address] CITY: [place] [address]IP [id number] PHONE: DATE OF : 1930 AGE: 89 SSN# [id number] GENDER: Male DEXTERITY Unknown dexterity MARITAL STATUS RACE Black PRE-HOSPITAL LIVING SETTING 01 - Home (private home/apt. board/care, assisted living, custodial, transitional living) PRE-HOSPITAL LIVING WITH Family/Relatives ENCOUNTER PHYSICIAN: Dr. Bimal Carpio M.D. REFERRING DOCTOR: Beto Potts DATE OF ADMISSION: 08/20/2021 18:23 (CDT) REFERRING FACILITY [facility] HOME TYPE AND DETAILS: Type of home: single family house # of levels in the residence: 2 # of steps within the residence: # of steps to enter the residence: 0 ONSET DATE: 08/18/2021 PRIMARY DIAGNOSIS-RELATED SURGERIES: CRANIOTOMY SECONDARY/COMORBID DIAGNOSES (TIERED): - N/A He was given Keppra 250 mg twice daily. An EEG is pending. He has a UTI and is on antibiotics. HISTORY OF PRESENT ILLNESS (HPI): On 08/18/2021 Pt. presented to [facility] with sudden onset of left-sideweakness with mode rate expressive aphasia and receptive aphasia. Pt. is a 89 yo black male. On 08/18/2021 he was admitted to [facility] with diagnosis CVA. His impairment category is Stroke 01 - Left Body (Right Brain) (01.1). Pre-morbidly, Pt. was independent/mod-I in Locomotion, Self-Care, and Communication; and he had good Safety Awareness, Social Cognition, Balance, Transfers Control, and Endurance. Currently, he has deficits of Locomotion, Safety Awareness, Social Cognition, Balance, Transfers Cont rol, Sphincter Control, Communication, Endurance, and Self-Care. Pt. is now referred to [facility] for acute in-patient rehabilitation in order to maximize patient's functional independence in activities of daily living, strength, ROM, and mobi lity. Patient has realistic goal of being discharged at assistance level 4-Peace to reside at Home with Fam phillip/Relatives. MEDICATION ALLERGIES: No Known Drug Allergies (NKDA) ENVIRONMENTAL ALLERGIES: - Substance Allergies None Known - Other Allergies None Known PAST MEDICAL HISTORY: Type 2 diabetes mellitus (E11) Cerebral infarction, unspecified (I63.9) Chronic kidney disease (CKD) (N18) coronary artery disease (CAD) Hypertension Hypothyroidism, unspecified (E03.9) Traumatic brain injury PAST SURGICAL HISTORY: Craniotomy Hx of PEG tube placement Hip Surgery Neck Surgery SOCIAL HISTORY: - Home Living Family/Relatives REVIEW OF SYSTEMS: - Gen No Chills Fatigue No Fever - Eyes No Double Vision No itchiness - ENMT Difficulty Swallowing - CVS No Chest Discomfort No Chest Pain Fatigue No Weight Gain - Resp No Cough Shortness of Breath - GI Continent No Abdominal Pain No Constipation No Diarrhea - Continent No Kidney Pain No Painful Urination No Urinary Urgency - MSK Joint Pain Muscle Cramps Stiffness - Skin No Itching No Rash No Suspicious Lesions - Neuro Coordination Difficulty Difficulty with Concentration Memory Loss Seizures Weakness - Psych No Anxiety No Depression No HIV Exposure No Persistent Infections No Seasonal Allergies - Endo No Cold/Heat Intolerance No Excessive Hunger No Excessive Thirst No Excessive Urination PHYSICAL EXAM - Gen Alert and awake Lying in bed No apparent distress Oriented to: person, time, and place - Skin No skin breakdown. Normacephalic with poor dentition. - Eyes No abnormalities - ENMT No abnormalities - Neck No abnormalities - CVS RRR - Chest Mildly decreased breath sounds bilaterally. - Resp No wheezing - Abd Soft - GI Non distended Deferred - No abnormalities - Ext Mild bilateral lower extremity edema. - MSK 4/5 weakness in both lower extremities. - Neuro 4/5 strength right upper and lower extremities. - Psych Mild depression. VITAL SIGNS Temperature: 97.4 F SBP/DBP: 108/76 Pulse: 52 Resp: 14 NURSING: - Shower allowing shower - Bladder care per protocol - Skin care per protocol PRECAUTIONS: - Fall Precaution Bed alarm TABS alarm Wheel chair alarm - Incontinence Bowel Incontinence - DVT Risk due to restricted mobility and age - Skin Breakdown Risk due to restricted mobility and age - Cardiac Precaution Monitor blood pressure, heart rate, lower extremity edema, notify MD for shortness of breath or chest pain Monitor patient for excessive elevation of heart rate and blood pressure during therapy Nursing and Therapy to monitor pt before and after therapy sessions for signs of Chest pain - Aspiration Precaution No straws Seated at 90 degrees while eating and 30 minutes after meals - Weight Bearing Precaution WBAT left LE ACTIVITIES OOB only with supervision QI SCORES: - Self-Care A. Eating 03-Partial/moderate assistance B. Oral hygiene 03-Partial/moderate assistance C. Toileting hygiene 03-Partial/moderate assistance E. Shower/bathe self 03-Partial/moderate assistance F. Upper body dressing 03-Partial/moderate assistance G. Lower body dressing 02-Substantial/maximal assistance H. Putting on/taking off footwear 02-Substantial/maximal assistance - Mobility A. Roll left and right 02-Substantial/maximal assistance B. Sit to lying 02-Substantial/maximal assistance C. Lying to sitting on side of bed 02-Substantial/maximal assistance D. Sit to stand 88-Not attempted due to medical condition or safety concerns E. Chair/ghh-lv-jeqas transfer 88-Not attempted due to medical condition or safety concerns F. Toilet transfer 88-Not attempted due to medical condition or safety concerns G. Car transfer 88-Not attempted due to medical condition or safety concerns I. Walk 10 feet 88-Not attempted due to medical condition or safety concerns J. Walk 50 feet with two turns 88-Not attempted due to medical condition or safety concerns K. Walk 150 feet 88-Not attempted due to medical condition or safety concerns L. Walking 10 feet on uneven surfaces 88-Not attempted due to medical condition or safety concerns M. 1 step (curb) 88-Not attempted due to medical condition or safety concerns N. 4 steps 88-Not attempted due to medical condition or safety concerns O. 12 steps 88-Not attempted due to medical condition or safety concerns P. Picking up object 88-Not attempted due to medical condition or safety concerns R. Wheel 50 feet with two turns S. Wheel 150 feet - Bladder and Bowel Bladder continence 3-Incontinent daily Bowel continence 2-Frequently incontinent - Endurance Poor - Balance Poor - Safety Awareness Poor CURRENT FUNC. DEFICITS: Self-Care, Mobility, Endurance, Balance, and Safety Awareness MEDICATIONS: - Other See attached MAR (Medication Administration Record) ASSESSMENT: On 08/18/2021 Pt. presented to [facility] with sudden onset of left-side weakness.Pt. is a 89 yo black male.On 08/18/2021 he was admitted to [facility] with diagnosis CVA.His impai rment category is Stroke 01 - Left Body (Right Brain) (01.1).Pre-morbidly, Pt. was independent/mod-I in Locomotion, Self-Care, and Communication; and he had good Safety Awareness, Social Cognition, Bal ance, Transfers Control, and Endurance.Currently, he has deficits of Locomotion, Safety Awareness, So cial Cognition, Balance, Transfers Control, Sphincter Control, Communication, Endurance, and Self-Car e.Pt. is now referred to [facility] for acute in-patient rehabilitation in ord er to maximize patient's functional independence in activities of daily living, strength, ROM, and mo bility.- Rehab Goal Patient has realistic goal of being discharged at assistance level 4-Peace to reside at Home with Fam phillip/Relatives. for Dementia, TBI, Stroke, or others - Physical Therapy Gait dysfunction - to improve, our physical therapists will perform initial evaluation of pt's status upon admission and devise an individualized program for Gait Training, and Wheel Chair mobility Inability to transfer - to improve, our physical therapists will perform initial evaluation of pt's s tatus upon admission and devise an individualized program for Bed mobility Need for home safety evaluation - to improve, our physical therapists will perform initial evaluation of pt's status upon admission and devise an individualized program for Home Evaluation Need in caregiver upon discharge - to improve, our physical therapists will perform initial evaluatio n of pt's status upon admission and devise an individualized program for Caregiver Training New precaution - to improve, our physical therapists will perform initial evaluation of pt's status u delfina admission and devise an individualized program for Patient precaution education Edema - to improve, our physical therapists will perform initial evaluation of pt's status upon admi ssion and devise an individualized program for Elevation Training, and Lymphedema Therapy Poor balance - to improve, our physical therapists will perform initial evaluation of pt's status upo n admission and devise an individualized program for Balance Training Poor endurance - to improve, our physical therapists will perform initial evaluation of pt's status u delfina admission and devise an individualized program for Endurance Training Weakness - to improve, our physical therapists will perform initial evaluation of pt's status upon ad mission and devise an individualized program for Aquatic Therapy, Neuromuscular Reeducation, and Stre ngthening Achieving independence - to improve, our physical therapists will perform initial evaluation of pt's status upon admission and devise an individualized program for Community Reintegration Activities - Occupational Therapy ADL deficits - to improve, our occupation therapists will perform initial evaluation of pt's status u delfina admission and devise an individualized program for Bathing, Bed mobility, Community Reintegration , Cooking, Dressing, Eating, Fine Motor Skills, Grooming, Homemaking, Kitchen Mobility, Laundry, Lalita ent Education, Safety Awareness, Splinting - Positioning, Transfers(Toilet, Tub, Shower), and Wheel C hair Management Cognitive deficits - to improve, our occupation therapists will perform initial evaluation of pt's st atus upon admission and devise an individualized program for Cognition - orientation Need for child care associate teacher - to improve, our occupation therapists will perform initial evaluation of pt's s tatus upon admission and devise an individualized program for Caregiver Training Weakness - to improve, our occupation therapists will perform initial evaluation of pt's status upon admission and devise an individualized program for Aquatic Therapy, Balance, Endurance, UE ROM, and U E strengthening MEDICAL PLAN: - Diet Type Regular - Diet - Liquid Texture Honey-Thickened - Tube Feed N/A - Incontinence Bowel Incontinence - Bladder care per protocol - DVT Risk due to restricted mobility and age - Skin Breakdown Risk due to restricted mobility and age - Cardiac Precaution Monitor blood pressure, heart rate, lower extremity edema, notify MD for shortness of breath or chest pain Monitor patient for excessive elevation of heart rate and blood pressure during therapy Nursing and Therapy to monitor pt before and after therapy sessions for signs of Chest pain - Weight Bearing Precaution WBAT LE - Fall Precaution Bed alarm TABS alarm Wheel chair alarm - Skin care per protocol - Other See attached MAR (Medication Administration Record) - Diet - Solid Texture Pureed Start Regular - Shower shower DISCHARGE PLAN: - Estimated Length of Stay (days) 17. - Consensus on plan Discharge plan has been discussed with primary caregiver. Patient/Family is in agreement with the corinne n. Primary caregiver is in agreement with the plan. - Patient/Family Goals Return home independently. - Planned Living Setting Upon Discharge Home, to live with Family/Relatives. Transitional Living. SIGNATURE PANEL: (CDT)
[2021-08-20] MEDS ORDERED: MELATONIN 5 MG TABLET PO PRN (18:34)
[2021-08-20] MEDS ORDERED: ACETAMINOPHEN 325 MG TABLET PO PRN (18:35)
--- NOTE | 2021-08-20 18:35 | PAPE ---
POST ADMISSION PHYSICIAN EVALUATION PATIENT: [facility] MR# [id number] REFERRING DOCTOR EstelladomoBeto EVALUATION DATE AND TIME 08/20/2021 18:32 (CDT) NAME BETO MONTANA DATE OF 1930 AGE 89 PHONE SSN# [id number] GENDER male EVALUATING PHYSICIAN Dr. Bimal Carpio M.D. ADMISSION DIAGNOSIS: CVA ONSET DATE 08/18/2021 SECONDARY/COMORBID DIAGNOSES TIERED: - N/A He was given Keppra 250 mg twice daily. An EEG is pending. He has a UTI and is on antibiotics. POST-ADMISSION FUNCTIONAL/MEDICAL STATUS: - Bladder Same accident frequency: 7-Ind - No accidents in the past 7 days - Bowel Same accident frequency: 7-Ind - No accidents in the past 7 days - Walking Same score based on distance walked: 0(N/A) - Wheelchair Same score based on distance traveled: 0(N/A) STATUS CHANGE EVALUATION: No change in Functional or Medical Status is identified compared with Pre-Admission screening. PATIENT NEEDS CLOSE MEDICAL SUPERVISION BY A REHABILITATION PHYSICIAN FOR: Coordination of Treatment Team Bowel and Bladder Management Pain Management DVT Management Diabetes Management Medical and Co-Morbidity Management Respiratory/Airway Management PATIENT REQUIRES 24X7 REHAB NURSING FOR MEDICAL AND FUNCTIONAL MGT. OF THE FOLLOWING DEFICITS: Disease Management Patient requires 24x7 Rehabilitation Nursing for: Pain Issues, Identifying and preventing risk factor s, Monitoring and reporting current medical conditions, Assisting with ambulation and transfer, Monica ting with all ADL-s, Teaching patients about disease process and medications, Family teaching, Provid ing safe environment, Bowel and Bladder Issues, Skin Integrity, and Medication Management PATIENT REQUIRES INTENSIVE, COORDINATED INTERDISCIPLINARY APPROACH TO REHAB: Arranging Home Equipment/Services Discharge Planning Family Intervention/Training Patient needs Dietary and Nutrition Services for: Adequate Nutrition, Nutritional Supplements, and Nu tritional Education Patient needs Blasting Contract Man and/or Case Management for: Discharge Planning, Arranging Home Equipmen t or Services, and Family Interventions Blasting Contract Man/Case Management LIST OF IDENTIFIED AND POTENTIAL PROBLEMS: Alteration in leisure activities Aspiration, Actual or Potential Bladder, Incontinence Bowel, Incontinence Falls, Actual or Potential Infection, Actual or Potential Mobility Impaired Pain, Alteration in Comfort Self Care Deficit Skin Integrity, Actual or Potential Urinary Tract Infection (UTI), Actual or Potential RISK FOR COMPLICATIONS - Aspiration Monitor for overt s/s of aspiration. - DVT Active and Passive ROM exercises. Elevate BLE. Assist patient with frequent position changes. - Skin Breakdown Encourage ambulation as tolerated. Repositioning q 2 hours. Use of pillows or foam wedges while in be d. - Pain Administer prescribed pain medication as needed. Anticipate the need for pain medication for optimal pain managment. Assist patient with frequent position changes at least every 2 hours. Education patie nt on relaxation and deep breathing techniques. - Falls Assess for medication side effects. Maintain call light within patient reach for easy access to nursi ng assistance. Provide assistance getting out of bed and with ambulation. Provide assistive devices. - Stroke Monitor and maintain patient pain level. Monitor patient blood pressure. - UTI Monitor for frequency, burning, discomfort, or incontinence. Medical management of current UTI. - Sepsis Patient is currently positive for Pseudomonas Aeruginosa in his urine. Patient will be receiving IV a ntibiotics for this infection. Monitor for signs and symptoms of sepsis. INTERVENTIONS - CVA Provide aggressive PT, OT, and Speech therapy to improve pt functionality. Regularly assess Neuro sta tus. - CKD - Type 2 Diabetes Monitor blood glucose and effectiveness of medications/Insulin. Promote proper diet. - CAD Assess and monitor pt v/s. Administer prescribed medications. Assess O2 saturation and provide supple mental oxygen ifwarrented. Educate pt on stress managment. Daily weights. - Hypertension Administer medications indicated by physician and monitor for effectiveness. Monitor patient B/P regu larly. Increase physical activity. Provide comfort measures. - Hypothyroidism Daily weights. Promote proper diet. - TBI Monitor pt respiratory status. Elevate HOB and monitor for aspiration. Reposition pt q2h. Regularly a ssess Neuro status. - UTI Current UTI will be managed with IV antibiotics as indicated by physician. Monitoring urinary Output. PATIENT COULD BE AT RISK FOR COMPLICATIONS FROM ADVERSE MEDICAL CONDITIONS DUE TO HIS/HER COMORBIDITI ES AND THE RIGORS OF THE INTENSIVE REHABILLITATION PROGRAM. METHODS OR INTERVENTIONS TO AVOID COMPLIC ATIONS INCLUDE: - Deep Vein Thrombosis (DVT) Prophylaxis therapy for prevention . Sequential Compression Device (SCD). TE D Hose. - Bleeding Stroke patients assessed for lethargy or change in status. - Infection Clinical staff to assess and manage the signs and symptoms of infection including fever, redness, war mth, etc. - Urinary Tract Infection - Aspiration Clinical staff will assess and manage coughing, drooling, congestion. - Falls Patient will be evaluated for Fall Precautions and will be placed on Fall Precautions as indicated pe r protocol. - Skin Breakdown Nursing will assess skin daily using assessment tool and will place on Skin Breakdown Precautions as indicated per protocol. - Pain Clinical staff may employ non-medication methods such as massage, distraction, decrease stimulus, etc . as needed. Clinical staff will assess patient's pain level every shift per protocol to assess and e nsure pain management effectiveness. Medications will be given and the pain level re-assessed. PRELIMINARY PLAN OF CARE: - Physical Therapy Patient needs Physical Therapy for a daily minimum of 1.5 hours at least 5 out of 7 days, to improve: Mobility, Strengthening, Transfers, Stretching, ROM, Endurance, Ability to manage stairs, Gait, and Balance. - Speech Therapy Patient needs Speech Therapy for a daily minimum of 0.5 hours at least 5 out of 7 days, to improve: S wallowing, Cognition, Language Skills, and Compensatory Strategies. - Rehabilitation Nursing Patient requires 24x7 Rehabilitation Nursing for: Pain Issues, Identifying and preventing risk factor s, Monitoring and reporting current medical conditions, Assisting with ambulation and transfer, Monica ting with all ADL-s, Teaching patients about disease process and medications, Family teaching, Provid ing safe environment, Bowel and Bladder Issues, Skin Integrity, and Medication Management. Patient needs Blasting Contract Man and/or Case Management for: Discharge Planning, Arranging Home Equipmen t or Services, and Family Interventions. - Dietary and Nutrition Services Patient needs Dietary and Nutrition Services for: Adequate Nutrition, Nutritional Supplements, and Nu tritional Education. - Occupational Therapy Patient needs Occupational Therapy for a daily minimum of 1.5 hours at least 5 out of 7 days, to impr ove Activities of Daily Living, including: Eating, Grooming, Bathing, Dressing, Toileting, Toilet Tra nsfers, Community Reintegration, Higher functional activities, Adaptive Equipment, Splinting, Househo ld Tasks, and Other activities as determined. QI SCORES: - Self-Care A. Eating 03-Partial/moderate assistance B. Oral hygiene 03-Partial/moderate assistance C. Toileting hygiene 03-Partial/moderate assistance E. Shower/bathe self 03-Partial/moderate assistance F. Upper body dressing 03-Partial/moderate assistance G. Lower body dressing 02-Substantial/maximal assistance H. Putting on/taking off footwear 02-Substantial/maximal assistance - Mobility A. Roll left and right 02-Substantial/maximal assistance B. Sit to lying 02-Substantial/maximal assistance C. Lying to sitting on side of bed 02-Substantial/maximal assistance D. Sit to stand 88-Not attempted due to medical condition or safety concerns E. Chair/wun-re-qeatn transfer 88-Not attempted due to medical condition or safety concerns F. Toilet transfer 88-Not attempted due to medical condition or safety concerns G. Car transfer 88-Not attempted due to medical condition or safety concerns I. Walk 10 feet 88-Not attempted due to medical condition or safety concerns J. Walk 50 feet with two turns 88-Not attempted due to medical condition or safety concerns K. Walk 150 feet 88-Not attempted due to medical condition or safety concerns L. Walking 10 feet on uneven surfaces 88-Not attempted due to medical condition or safety concerns M. 1 step (curb) 88-Not attempted due to medical condition or safety concerns N. 4 steps 88-Not attempted due to medical condition or safety concerns O. 12 steps 88-Not attempted due to medical condition or safety concerns P. Picking up object 88-Not attempted due to medical condition or safety concerns R. Wheel 50 feet with two turns S. Wheel 150 feet - Bladder and Bowel Bladder continence 3-Incontinent daily Bowel continence 2-Frequently incontinent - Endurance Poor - Balance Poor - Safety Awareness Poor POTENTIAL FUNCTIONAL GOALS FOR PATIENT TO ACHIEVE BY DISCHARGE: - Safety Precaution Patient will remain free from falls or injury at time of discharge. - Bed Mobility Patient will perform bed mobility at 4-Peace level of assistance. - Transfers Patient will complete transfers from bed to chair at 4-Peace level of assistance. - Mobility Patient will ambulate 150 ft with 4-Peace level of assistance with RW. PATIENT REHAB POTENTIAL Onur MONTANA is able and expected to receive 3 hours of individualized therapy daily on at least 5 inocente ry 7 days Onur MONTANA's prognosis for significant practical improvement within a reasonable period of time appears Good Expected level of measurable improvement will be of a practical value to Onur MONTANA's functional capaci ty or adaptations to impairments Has a viable Discharge Plan Medically appropriate; condition is sufficiently stable to participate in intensive rehab program DISCHARGE PLAN: - Estimated Length of Stay (days) 17. - Consensus on plan Discharge plan has been discussed with primary caregiver. Patient/Family is in agreement with the corinne n. Primary caregiver is in agreement with the plan. - Patient/Family Goals Return home independently. - Planned Living Setting Upon Discharge Home, to live with Family/Relatives. Transitional Living. CONCLUSION ON REHABILITATION NECESSITY: I have evaluated patient's pre-admission functional status and, comparing it to the patient's post-ad mission functional status now, I conclude that the pre-admission assessment was accurate. Patient's c ondition on admission supports the medical necessity of admission to [facility]. It is safe to proceed with patient's therapy program. Eliquis 2.5 mg bid. SIGNATURE PANEL: (CDT)
[2021-08-20] MEDS ORDERED: D50W 25 GM/50 ML SYRINGE IV PRN (18:44)
[2021-08-20] MEDS ORDERED: GLUCAGON 1 MG/VIAL IM PRN (18:44)
[2021-08-20] MEDS ORDERED: ONDANSETRON 4 MG (ODT) TAB PO PRN (18:45)
[2021-08-20] MEDS ORDERED: D10W 125 ML IV PRN (18:50)
[2021-08-20] MEDS ORDERED: ACETAMINOPHEN 650MG/RECT SUPP PR PRN (18:52)
[2021-08-20] MEDS ORDERED: DOCUSATE NA/SENNA CONC 1 TAB PO PRN (19:04)
[2021-08-20] MEDS: OXcarbazepine 150 MG TAB PO SCH (20:22)
[2021-08-20] MEDS: ATORVASTATIN 40 MG TAB PO SCH (20:22)
[2021-08-20] MEDS: levETIRAcetam 500 MG TAB PO SCH (20:22)
[2021-08-20] MEDS: APIXABAN 2.5 MG TABLET PO SCH (20:25)
[2021-08-20] MEDS: INSULIN -REGULAR HUMAN 50 UNIT/0.5 ML ML SQ SCH (20:26)
[2021-08-21 05:02] LABS: Absolute Lymphocytes (CBC) 1.4 K/uL (0.7-4.9); Hematocrit 37.7 % (39.6-49.0); Lymphocytes % 30.4 % (15.3-44.8); MPV 8.9 fL (7.6-11.3); RBC Red Blood Cell Count 4.08 M/uL (4.33-5.43)
[2021-08-21 05:26] LABS: Albumin 2.8 g/dL (3.4-5.0); Phosphorus 2.7 mg/dL (2.5-4.9); Potassium 3.9 mmol/L (3.5-5.1); Prealbumin 10.9 mg/dL (20-40)
[2021-08-21] MEDS: LEVOTHYROXINE SOD 0.075 MG TAB PO SCH (06:36)
[2021-08-21] MEDS: INSULIN -REGULAR HUMAN 50 UNIT/0.5 ML ML SQ SCH ×4 (07:13→21:00)
[2021-08-21] MEDS: APIXABAN 2.5 MG TABLET PO SCH ×2 (07:14→20:00)
[2021-08-21] MEDS ORDERED: ASPIRIN 81 MG CHEWABLE TABLET PO SCH (08:00)
[2021-08-21] MEDS: OXcarbazepine 150 MG TAB PO SCH ×2 (09:12→20:00)
[2021-08-21] MEDS: levETIRAcetam 500 MG TAB PO SCH (09:13)
[2021-08-21] MEDS: FUROSEMIDE 20 MG TABLET PO SCH (09:13)
--- NOTE | 2021-08-21 10:05 | P.RH.PN ---
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 Goal: Mobility, Transfers, Self Care Vital Signs: Last Vital Signs Temp 98.4 F 08/21/21 07:33 Pulse 58 08/21/21 09:13 Resp 18 08/21/21 07:33 BP 130/80 08/21/21 09:13 Pulse Ox 96 08/21/21 07:33 Laboratory: Laboratory Last Values WBC 4.6 K/uL (4.3-10.9) 08/21/21 04:18 RBC 4.08 M/uL (4.33-5.43) L 08/21/21 04:18 Hgb 12.7 g/dL (13.6-17.9) L 08/21/21 04:18 Hct 37.7 % (39.6-49.0) L 08/21/21 04:18 MCV 92.5 fL (80-100) 08/21/21 04:18 MCH 31.2 pg (27.0-35.0) 08/21/21 04:18 MCHC 33.7 g/dL (32.0-36.0) 08/21/21 04:18 RDW 13.9 % (12.1-15.2) 08/21/21 04:18 Plt Count 135 K/uL (152-406) L 08/21/21 04:18 MPV 8.9 fL (7.6-11.3) 08/21/21 04:18 Neutrophils % 54.6 % (41.7-73.7) 08/21/21 04:18 Lymphocytes % 30.4 % (15.3-44.8) 08/21/21 04:18 Monocytes % 11.5 % (3.3-12.3) 08/21/21 04:18 Eosinophils % 2.8 % (0-4.4) 08/21/21 04:18 Basophils % 0.7 % (0-1.3) 08/21/21 04:18 Absolute Neutrophils 2.5 K/uL (1.8-8.0) 08/21/21 04:18 Absolute Lymphocytes 1.4 K/uL (0.7-4.9) 08/21/21 04:18 Absolute Monocytes 0.5 K/uL (0.1-1.3) 08/21/21 04:18 Absolute Eosinophils 0.1 K/uL (0-0.5) 08/21/21 04:18 Absolute Basophils 0.0 K/uL (0-0.5) 08/21/21 04:18 Sodium 141 mmol/L (136-145) 08/21/21 04:18 Potassium 3.9 mmol/L (3.5-5.1) 08/21/21 04:18 Chloride 113 mmol/L (98-107) H 08/21/21 04:18 Carbon Dioxide 22 mmol/L (21-32) 08/21/21 04:18 Anion Gap 9.9 mEq/L (5.0-15.0) 08/21/21 04:18 BUN 16 mg/dL (7-18) 08/21/21 04:18 Creatinine 1.34 mg/dL (0.55-1.3) H 08/21/21 04:18 Estimated GFR 61 mL/min (=/>90) L 08/21/21 04:18 Glucose 89 mg/dL (74-106) 08/21/21 04:18 POC Glucose 82 mg/dL (65-120) 08/21/21 06:59 Calcium 8.9 mg/dL (8.5-10.1) 08/21/21 04:18 Phosphorus 2.7 mg/dL (2.5-4.9) 08/21/21 04:18 Magnesium 2.0 mg/dL (1.8-2.4) 08/21/21 04:18 Albumin 2.8 g/dL (3.4-5.0) L 08/21/21 04:18 Prealbumin 10.9 mg/dL (20-40) L 08/21/21 04:18 Weight: 163 lb Physician Update: He is refusing therapy and is easily aggitated after starting Keppra. Will d/c Keppra and adjust other medication. Will be evaluated by physical and occupational therapy today. Summary: Patient's care plan and intermediate goals have been reviewed and revised as necessary. Please see the Rehabilitation Signature page for all necessary signatures.
[2021-08-21] MEDS ORDERED: D5 0.9 NS 1,000 ML IV SCH (17:00)
--- NOTE | 2021-08-21 17:24 | RAD REPORT ---
EXAM DESCRIPTION: Dana Single View08/21/2021 5:08 pm CLINICAL HISTORY: Chest pain COMPARISON: August 18, 2021 FINDINGS: The lungs appear clear of acute infiltrate. The heart is mildly enlarged IMPRESSION: No acute abnormalities displayed
[2021-08-21] MEDS: D5 0.9 NS 1,000 ML IV SCH (23:00)
[2021-08-22] MEDS: LEVOTHYROXINE SOD 0.075 MG TAB PO SCH (06:30)
[2021-08-22] MEDS: INSULIN -REGULAR HUMAN 50 UNIT/0.5 ML ML SQ SCH ×4 (07:30→19:36)
[2021-08-22] MEDS ORDERED: ENOXAPARIN 40 MG/0.4 ML SQ SCH (08:00)
[2021-08-22] MEDS: OXcarbazepine 150 MG TAB PO SCH ×2 (08:00→19:36)
[2021-08-22] MEDS: FUROSEMIDE 20 MG TABLET PO SCH (08:00)
[2021-08-22] MEDS ORDERED: CLONIDINE 0.1 MG/PATCH TD SCH (16:00)
[2021-08-22] MEDS ORDERED: BISACODYL 10 MG RECTAL SUPP PR PRN (16:00)
--- NOTE | 2021-08-22 16:44 | R.PN ---
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 Pt denied any Shortness of Breath. CBC with differential is essentially normal. Glucose 74 to 89, prealbumin 10.9, [place] Gauger 1.34. Stood for 20 seconds x 3. Therapeutic exercises done with moderate assistance. VITAL SIGNS Temperature: 97.4 F SBP/DBP: 108/76 Pulse: 52 Resp: 14 MEDICATION ALLERGIES: No Known Drug Allergies (NKDA) ENVIRONMENTAL ALLERGIES: - Substance Allergies None Known - Other Allergies None Known NURSING: - Shower allowing shower - Bladder care per protocol - Skin care per protocol PRECAUTIONS: - Fall Precaution Bed alarm TABS alarm Wheel chair alarm - Incontinence Bowel Incontinence - DVT Risk due to restricted mobility and age - Skin Breakdown Risk due to restricted mobility and age - Cardiac Precaution Monitor blood pressure, heart rate, lower extremity edema, notify MD for shortness of breath or chest pain Monitor patient for excessive elevation of heart rate and blood pressure during therapy Nursing and Therapy to monitor pt before and after therapy sessions for signs of Chest pain - Aspiration Precaution No straws Seated at 90 degrees while eating and 30 minutes after meals - Weight Bearing Precaution WBAT left LE ACTIVITIES OOB only with supervision THERAPIES: - Dietary and Nutrition Adequate Nutrition. Nutritional Education. Nutritional Supplements. - Occupational Therapy Cognitive Retraining. Patient needs Occupational Therapy for a daily minimum of 1.5 hours at least 5 out of 7 days, to improve Activities of Daily Living, including: Eating, Grooming, Bathing, Dressing, Toileting, Toilet Transfers, Community Reintegration, Higher functional activities, Adaptive Equipme nt, Splinting, Household Tasks, and Other activities as determined. Visual Perceptual Training. - Speech Therapy Cognitive Training. Dysphagia Therapy. Expressive Language Skills. Memory Strategies. Patient needs S peech Therapy for a daily minimum of 1.5 hours at least 5 out of 7 days, to improve: Swallowing, Cogn ition, Language Skills, and Compensatory Strategies. Receptive Language Skills. Speech Intelligibilit y Training. - Physical Therapy Patient needs Physical Therapy for a daily minimum of 1.5 hours at least 5 out of 7 days, to improve: Mobility, Strengthening, Transfers, Stretching, ROM, Endurance, Ability to manage stairs, Gait, and Balance. Safety Awareness. PHYSICAL EXAM - Gen Alert and awake Lying in bed No apparent distress Oriented to: person, time, and place - Skin No skin breakdown. Normacephalic with poor dentition. - Eyes No abnormalities - ENMT No abnormalities - Neck No abnormalities - CVS RRR - Chest Mildly decreased breath sounds bilaterally. - Resp No wheezing - Abd Soft - GI Non distended Deferred - No abnormalities - Ext Mild bilateral lower extremity edema. - MSK 4/5 weakness in both lower extremities. - Neuro 4/5 strength right upper and lower extremities. - Psych Mild depression. ASSESSMENT: On 08/18/2021 Pt. presented to [facility] with sudden onset of left-sideweakness with mode rate expressive aphasia and receptive aphasia.On 08/18/2021 Pt. presented to [facility] wi th sudden onset of left-side weakness.Pt. is a 89 yo black male.On 08/18/2021 he was admitted to [facility] with diagnosis CVA.His impairment category is Stroke 01 - Left Body (Right Brain) (01.1).Pre-morbidly, Pt. was independent/mod-I in Locomotion, Self-Care, and Communication; and he gordon d good Safety Awareness, Social Cognition, Balance, Transfers Control, and Endurance.Currently, he gordon s deficits of Locomotion, Safety Awareness, Social Cognition, Balance, Transfers Control, Sphincter C ontrol, Communication, Endurance, and Self-Care.Pt. is now referred to [facility] for acute in-patient rehabilitation in order to maximize patient's functional independence in act ivities of daily living, strength, ROM, and mobility.- Rehab Goal Patient has realistic goal of being discharged at assistance level 4-Peace to reside at Home with Fam phillip/Relatives. MDM/PLAN: - Physical Therapy Gait dysfunction - to improve, our physical therapists will perform initial evaluation of pt's statu s upon admission and devise an individualized program for Gait Training, and Wheel Chair mobility Inability to transfer - to improve, our physical therapists will perform initial evaluation of pt's status upon admission and devise an individualized program for Bed mobility Need for home safety evaluation - to improve, our physical therapists will perform initial evaluatio n of pt's status upon admission and devise an individualized program for Home Evaluation Need in caregiver upon discharge - to improve, our physical therapists will perform initial evaluati on of pt's status upon admission and devise an individualized program for Caregiver Training New precaution - to improve, our physical therapists will perform initial evaluation of pt's status upon admission and devise an individualized program for Patient precaution education Edema - to improve, our physical therapists will perform initial evaluation of pt's status upon admis jomar and devise an individualized program for Elevation Training, and Lymphedema Therapy Poor balance - to improve, our physical therapists will perform initial evaluation of pt's status up on admission and devise an individualized program for Balance Training Poor endurance - to improve, our physical therapists will perform initial evaluation of pt's status upon admission and devise an individualized program for Endurance Training Weakness - to improve, our physical therapists will perform initial evaluation of pt's status upon a dmission and devise an individualized program for Aquatic Therapy, Neuromuscular Reeducation, and Str engthening Achieving independence - to improve, our physical therapists will perform initial evaluation of pt's status upon admission and devise an individualized program for Community Reintegration Activities - Occupational Therapy ADL deficits - to improve, our occupation therapists will perform initial evaluation of pt's status upon admission and devise an individualized program for Bathing, Bed mobility, Community Reintegratio n, Cooking, Dressing, Eating, Fine Motor Skills, Grooming, Homemaking, Kitchen Mobility, Laundry, Pat ient Education, Safety Awareness, Splinting - Positioning, Transfers(Toilet, Tub, Shower), and Wheel Chair Management Cognitive deficits - to improve, our occupation therapists will perform initial evaluation of pt's s tatus upon admission and devise an individualized program for Cognition - orientation Need for home care music therapist - to improve, our occupation therapists will perform initial evaluation of pt's status upon admission and devise an individualized program for Caregiver Training Weakness - to improve, our occupation therapists will perform initial evaluation of pt's status upon admission and devise an individualized program for Aquatic Therapy, Balance, Endurance, UE ROM, and UE strengthening - Other See attached MAR (Medication Administration Record) - Diet Type Continue Regular - Diet - Liquid Texture Continue Honey-Thickened - Tube Feed Continue N/A - Incontinence Bowel Incontinence - Bladder care per protocol - DVT Risk due to restricted mobility and age - Skin Breakdown Risk due to restricted mobility and age - Cardiac Precaution Monitor blood pressure, heart rate, lower extremity edema, notify MD for shortness of breath or ches t pain Monitor patient for excessive elevation of heart rate and blood pressure during therapy Nursing and Therapy to monitor pt before and after therapy sessions for signs of Chest pain - Weight Bearing Precaution WBAT left LE - Fall Precaution Bed alarm TABS alarm Wheel chair alarm - Skin care per protocol - Diet - Solid Texture Continue Pureed Continue Regular - Shower allowing shower for Dementia, TBI, Stroke, or others FUNCTIONAL STATUS: UPDATED AT WEEKLY TEAM CONFERENCE - Bladder Same accident frequency: 7-Ind - No accidents in the past 7 days - Bowel Same accident frequency: 7-Ind - No accidents in the past 7 days - Walking Same score based on distance walked: 0(N/A) - Wheelchair Same score based on distance traveled: 0(N/A) FUNCTIONAL STATUS: - Self-Care A. Eating maxA B. Grooming maxA C. Bathing maxA D. Dressing - Upper modA E. Dressing - Lower maxA F. Toileting modA - Sphincter Control G. Bladder control sup H. Bowel control sup - Transfers Control I. Bed/Chair/Wheelchair maxA J. Toilet maxA K. Tub/Shower maxA - Locomotion L. Walk/Wheelchair (B) maxA M. Stairs ADNO - Communication N. Comprehension (B) maxA O. Expression (B) maxA - Social Cognition P. Social Interaction modA Q. Problem Solving maxA R. Memory maxA - Endurance Poor - Balance Poor - Safety Awareness Poor QI SCORES: - Self-Care A. Eating 03-Partial/moderate assistance B. Oral hygiene 03-Partial/moderate assistance C. Toileting hygiene 03-Partial/moderate assistance E. Shower/bathe self 03-Partial/moderate assistance F. Upper body dressing 03-Partial/moderate assistance G. Lower body dressing 02-Substantial/maximal assistance H. Putting on/taking off footwear 02-Substantial/maximal assistance - Mobility A. Roll left and right 02-Substantial/maximal assistance B. Sit to lying 02-Substantial/maximal assistance C. Lying to sitting on side of bed 02-Substantial/maximal assistance D. Sit to stand 88-Not attempted due to medical condition or safety concerns E. Chair/[id number] transfer 88-Not attempted due to medical condition or safety concerns F. Toilet transfer 88-Not attempted due to medical condition or safety concerns G. Car transfer 88-Not attempted due to medical condition or safety concerns I. Walk 10 feet 88-Not attempted due to medical condition or safety concerns J. Walk 50 feet with two turns 88-Not attempted due to medical condition or safety concerns K. Walk 150 feet 88-Not attempted due to medical condition or safety concerns L. Walking 10 feet on uneven surfaces 88-Not attempted due to medical condition or safety concerns M. 1 step (curb) 88-Not attempted due to medical condition or safety concerns N. 4 steps 88-Not attempted due to medical condition or safety concerns O. 12 steps 88-Not attempted due to medical condition or safety concerns P. Picking up object 88-Not attempted due to medical condition or safety concerns R. Wheel 50 feet with two turns S. Wheel 150 feet - Bladder and Bowel Bladder continence 3-Incontinent daily Bowel continence 2-Frequently incontinent - Endurance Poor - Balance Poor - Safety Awareness Poor CURRENT FUNC. DEFICITS: Self-Care, Mobility, Endurance, Balance, and Safety Awareness SIGNATURE PANEL: (CDT)
[2021-08-22] MEDS ORDERED: CLONIDINE 0.2 MG/PATCH TD SCH (18:00)
[2021-08-22] MEDS: D5 0.9 NS 1,000 ML IV SCH ×2 (19:00→20:45)
[2021-08-22] MEDS: ATORVASTATIN 40 MG TAB PO SCH (19:36)
[2021-08-23] MEDS: LEVOTHYROXINE SOD 0.075 MG TAB PO SCH (06:26)
[2021-08-23] MEDS: OXcarbazepine 150 MG TAB PO SCH ×2 (06:27→19:33)
[2021-08-23] MEDS: FUROSEMIDE 20 MG TABLET PO SCH (06:27)
[2021-08-23] MEDS: INSULIN -REGULAR HUMAN 50 UNIT/0.5 ML ML SQ SCH ×4 (07:30→19:34)
[2021-08-23] MEDS: ENOXAPARIN 30 MG/0.3 ML SQ SCH (07:39)
[2021-08-23] MEDS: D5 0.9 NS 1,000 ML IV SCH (16:07)
[2021-08-23] MEDS: ATORVASTATIN 40 MG TAB PO SCH (19:34)
[2021-08-24] MEDS: LEVOTHYROXINE SOD 0.075 MG TAB PO SCH (06:30)
[2021-08-24] MEDS: INSULIN -REGULAR HUMAN 50 UNIT/0.5 ML ML SQ SCH ×4 (07:04→20:58)
[2021-08-24] MEDS: FUROSEMIDE 20 MG TABLET PO SCH ×2 (07:26→09:54)
[2021-08-24] MEDS: OXcarbazepine 150 MG TAB PO SCH ×3 (07:27→20:58)
[2021-08-24] MEDS: ENOXAPARIN 30 MG/0.3 ML SQ SCH (07:28)
[2021-08-24 08:10] LABS: Absolute Lymphocytes (CBC) 1.2 K/uL (0.7-4.9); Hematocrit 37.7 % (39.6-49.0); Lymphocytes % 30.5 % (15.3-44.8); RBC Red Blood Cell Count 4.18 M/uL (4.33-5.43)
[2021-08-24 08:22] LABS: Potassium 3.8 mmol/L (3.5-5.1)
--- NOTE | 2021-08-24 09:32 | RAD REPORT ---
EXAM DESCRIPTION: RAD - Barium Swallow Modified - 08/24/2021 9:11 am CLINICAL HISTORY: dysphagia COMPARISON: Abdomen Pelvis W Contrast dated 09/08/2020 TECHNIQUE: The patient was given liquid, semi-solid and solid forms of barium. Lateral view fluorosc opic imaging was performed in conjunction with speech pathology service. FINDINGS: LARYNGEAL PENETRATION: NOT CLEARED WITH NECTAR ASPIRATION: COUGH WITH NECTAR FLUORO TIME 4.44 MIN
--- NOTE | 2021-08-24 19:01 | R.PN ---
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 Pt denied any Shortness of Breath. CBC with differential is essentially normal. Glucose 74 to 89, prealbumin 10.9, Handle Finisher 1.34. Stood for 20 seconds x 3. Therapeutic exercises done with moderate assistance. His MBSS showed severe premature spillage to the valleculae and moderate into the pyrifom sinuses. He has a strong cough. Now on small bites and sips with chin tuck. VITAL SIGNS Temperature: 97.6 F SBP/DBP: 174/87 Pulse: 51 Resp: 16 MEDICATION ALLERGIES: No Known Drug Allergies (NKDA) ENVIRONMENTAL ALLERGIES: - Substance Allergies None Known - Other Allergies None Known NURSING: - Shower allowing shower - Bladder care per protocol - Skin care per protocol PRECAUTIONS: - Fall Precaution Bed alarm TABS alarm Wheel chair alarm - Incontinence Bowel Incontinence - DVT Risk due to restricted mobility and age - Skin Breakdown Risk due to restricted mobility and age - Cardiac Precaution Monitor blood pressure, heart rate, lower extremity edema, notify MD for shortness of breath or chest pain Monitor patient for excessive elevation of heart rate and blood pressure during therapy Nursing and Therapy to monitor pt before and after therapy sessions for signs of Chest pain - Aspiration Precaution No straws Seated at 90 degrees while eating and 30 minutes after meals - Weight Bearing Precaution WBAT left LE ACTIVITIES OOB only with supervision THERAPIES: - Dietary and Nutrition Adequate Nutrition. Nutritional Education. Nutritional Supplements. - Occupational Therapy Cognitive Retraining. Patient needs Occupational Therapy for a daily minimum of 1.5 hours at least 5 out of 7 days, to improve Activities of Daily Living, including: Eating, Grooming, Bathing, Dressing, Toileting, Toilet Transfers, Community Reintegration, Higher functional activities, Adaptive Equipme nt, Splinting, Household Tasks, and Other activities as determined. Visual Perceptual Training. - Speech Therapy Cognitive Training. Dysphagia Therapy. Expressive Language Skills. Memory Strategies. Patient needs S peech Therapy for a daily minimum of 1.5 hours at least 5 out of 7 days, to improve: Swallowing, Cogn ition, Language Skills, and Compensatory Strategies. Receptive Language Skills. Speech Intelligibilit y Training. - Physical Therapy Patient needs Physical Therapy for a daily minimum of 1.5 hours at least 5 out of 7 days, to improve: Mobility, Strengthening, Transfers, Stretching, ROM, Endurance, Ability to manage stairs, Gait, and Balance. Safety Awareness. PHYSICAL EXAM - Gen Alert and awake Lying in bed No apparent distress Oriented to: person, time, and place - Skin No skin breakdown. Normacephalic with poor dentition. - Eyes No abnormalities - ENMT No abnormalities - Neck No abnormalities - CVS RRR - Chest Mildly decreased breath sounds bilaterally. - Resp No wheezing - Abd Soft - GI Non distended Deferred - No abnormalities - Ext Mild bilateral lower extremity edema. - MSK 4/5 weakness in both lower extremities. - Neuro 4/5 strength right upper and lower extremities. - Psych Mild depression. ASSESSMENT: On 08/18/2021 [facility] sudden onset of left-sideweakness with mode rate expressive aphasia and receptive aphasia.On 08/18/2021 [facility]. [facility] wi th sudden onset of left-side weakness.Pt. is a 89 yo black male.On 08/18/2021 [facility] was [facility] with diagnosis CVA.His impairment category is Stroke 01 - Left Body (Right Brain) (01.1).Pre-morbidly, Pt. was independent/mod-I in Locomotion, Self-Care, and Communication; and he gordon d good Safety Awareness, Social Cognition, Balance, Transfers Control, and Endurance.Currently, he gordon s deficits of Locomotion, Safety Awareness, Social Cognition, Balance, Transfers Control, Sphincter C ontrol, Communication, Endurance, and Self-Care.Pt. is now referred to [facility] for acute in-patient rehabilitation in order to maximize patient's functional independence in act ivities of daily living, strength, ROM, and mobility.- Rehab Goal Patient has realistic goal of being discharged at assistance level 4-Peace to reside at Home with Fam phillip/Relatives. MDM/PLAN: - Physical Therapy Gait dysfunction - to improve, our physical therapists will perform initial evaluation of pt's statu s upon admission and devise an individualized program for Gait Training, and Wheel Chair mobility Inability to transfer - to improve, our physical therapists will perform initial evaluation of pt's status upon admission and devise an individualized program for Bed mobility Need for home safety evaluation - to improve, our physical therapists will perform initial evaluatio n of pt's status upon admission and devise an individualized program for Home Evaluation Need in caregiver upon discharge - to improve, our physical therapists will perform initial evaluati on of pt's status upon admission and devise an individualized program for Caregiver Training New precaution - to improve, our physical therapists will perform initial evaluation of pt's status upon admission and devise an individualized program for Patient precaution education Edema - to improve, our physical therapists will perform initial evaluation of pt's status upon admi ssion and devise an individualized program for Elevation Training, and Lymphedema Therapy Poor balance - to improve, our physical therapists will perform initial evaluation of pt's status up on admission and devise an individualized program for Balance Training Poor endurance - to improve, our physical therapists will perform initial evaluation of pt's status upon admission and devise an individualized program for Endurance Training Weakness - to improve, our physical therapists will perform initial evaluation of pt's status upon a dmission and devise an individualized program for Aquatic Therapy, Neuromuscular Reeducation, and Str engthening Achieving independence - to improve, our physical therapists will perform initial evaluation of pt's status upon admission and devise an individualized program for Community Reintegration Activities - Occupational Therapy ADL deficits - to improve, our occupation therapists will perform initial evaluation of pt's status upon admission and devise an individualized program for Bathing, Bed mobility, Community Reintegratio n, Cooking, Dressing, Eating, Fine Motor Skills, Grooming, Homemaking, Kitchen Mobility, Laundry, Pat ient Education, Safety Awareness, Splinting - Positioning, Transfers(Toilet, Tub, Shower), and Wheel Chair Management Cognitive deficits - to improve, our occupation therapists will perform initial evaluation of pt's s tatus upon admission and devise an individualized program for Cognition - orientation Need for career counselor - to improve, our occupation therapists will perform initial evaluation of pt's status upon admission and devise an individualized program for Caregiver Training Weakness - to improve, our occupation therapists will perform initial evaluation of pt's status upon admission and devise an individualized program for Aquatic Therapy, Balance, Endurance, UE ROM, and UE strengthening - Other See attached MAR (Medication Administration Record) - Diet Type Continue Regular - Diet - Liquid Texture Continue Honey-Thickened - Tube Feed Continue N/A - Incontinence Bowel Incontinence - Bladder care per protocol - DVT Risk due to restricted mobility and age - Skin Breakdown Risk due to restricted mobility and age - Cardiac Precaution Monitor blood pressure, heart rate, lower extremity edema, notify MD for shortness of breath or ches t pain Monitor patient for excessive elevation of heart rate and blood pressure during therapy Nursing and Therapy to monitor pt before and after therapy sessions for signs of Chest pain - Weight Bearing Precaution WBAT left LE - Fall Precaution Bed alarm TABS alarm Wheel chair alarm - Skin care per protocol - Diet - Solid Texture Continue Pureed Continue Regular - Shower allowing shower for Dementia, TBI, Stroke, or others FUNCTIONAL STATUS: UPDATED AT WEEKLY TEAM CONFERENCE - Bladder Same accident frequency: 7-Ind - No accidents in the past 7 days - Bowel Same accident frequency: 7-Ind - No accidents in the past 7 days - Walking Same score based on distance walked: 0(N/A) - Wheelchair Same score based on distance traveled: 0(N/A) FUNCTIONAL STATUS: - Self-Care A. Eating maxA B. Grooming maxA C. Bathing maxA D. Dressing - Upper modA E. Dressing - Lower maxA F. Toileting modA - Sphincter Control G. Bladder control sup H. Bowel control sup - Transfers Control I. Bed/Chair/Wheelchair maxA J. Toilet maxA K. Tub/Shower maxA - Locomotion L. Walk/Wheelchair (B) maxA M. Stairs ADNO - Communication N. Comprehension (B) maxA O. Expression (B) maxA - Social Cognition P. Social Interaction modA Q. Problem Solving maxA R. Memory maxA - Endurance Poor - Balance Poor - Safety Awareness Poor QI SCORES: - Self-Care A. Eating 03-Partial/moderate assistance B. Oral hygiene 03-Partial/moderate assistance C. Toileting hygiene 03-Partial/moderate assistance E. Shower/bathe self 03-Partial/moderate assistance F. Upper body dressing 03-Partial/moderate assistance G. Lower body dressing 02-Substantial/maximal assistance H. Putting on/taking off footwear 02-Substantial/maximal assistance - Mobility A. Roll left and right 02-Substantial/maximal assistance B. Sit to lying 02-Substantial/maximal assistance C. Lying to sitting on side of bed 02-Substantial/maximal assistance D. Sit to stand 88-Not attempted due to medical condition or safety concerns E. Chair/[id number] transfer 88-Not attempted due to medical condition or safety concerns F. Toilet transfer 88-Not attempted due to medical condition or safety concerns G. Car transfer 88-Not attempted due to medical condition or safety concerns I. Walk 10 feet 88-Not attempted due to medical condition or safety concerns J. Walk 50 feet with two turns 88-Not attempted due to medical condition or safety concerns K. Walk 150 feet 88-Not attempted due to medical condition or safety concerns L. Walking 10 feet on uneven surfaces 88-Not attempted due to medical condition or safety concerns M. 1 step (curb) 88-Not attempted due to medical condition or safety concerns N. 4 steps 88-Not attempted due to medical condition or safety concerns O. 12 steps 88-Not attempted due to medical condition or safety concerns P. Picking up object 88-Not attempted due to medical condition or safety concerns R. Wheel 50 feet with two turns S. Wheel 150 feet - Bladder and Bowel Bladder continence 3-Incontinent daily Bowel continence 2-Frequently incontinent - Endurance Poor - Balance Poor - Safety Awareness Poor CURRENT FUNC. DEFICITS: Self-Care, Mobility, Endurance, Balance, and Safety Awareness SIGNATURE PANEL: (CDT)
[2021-08-24] MEDS: APIXABAN 2.5 MG TABLET PO SCH (20:58)
[2021-08-24] MEDS: ATORVASTATIN 40 MG TAB PO SCH (20:58)
[2021-08-25] MEDS: LEVOTHYROXINE SOD 0.075 MG TAB PO SCH (07:30)
[2021-08-25] MEDS: INSULIN -REGULAR HUMAN 50 UNIT/0.5 ML ML SQ SCH ×4 (07:30→19:40)
[2021-08-25] MEDS: OXcarbazepine 150 MG TAB PO SCH ×2 (09:17→19:20)
[2021-08-25] MEDS: ASPIRIN 81 MG CHEWABLE TABLET PO SCH (09:17)
[2021-08-25] MEDS: FUROSEMIDE 20 MG TABLET PO SCH (09:18)
[2021-08-25] MEDS: APIXABAN 2.5 MG TABLET PO SCH ×2 (09:18→19:20)
--- NOTE | 2021-08-25 17:20 | R.PN ---
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 Pt denied any Shortness of Breath. CBC with differential is essentially normal. Glucose 74 to 89, prealbumin 10.9, Director Information Security 1.34. His MBSS showed severe premature spillage to the valleculae and moderate into the pyrifom sinuses. He has a strong cough. Now on small bites and sips with chin tuck. Very elevated BP, with restart Coreg 3.125 mg bid. Ambulated 25' with max assistance using parallel bars. Wheelchair mobilization 250' with moderate ass istance. VITAL SIGNS Temperature: 97.4 F SBP/DBP: 178/89 Pulse: 58 Resp: 16 MEDICATION ALLERGIES: No Known Drug Allergies (NKDA) ENVIRONMENTAL ALLERGIES: - Substance Allergies None Known - Other Allergies None Known NURSING: - Shower allowing shower - Bladder care per protocol - Skin care per protocol PRECAUTIONS: - Fall Precaution Bed alarm TABS alarm Wheel chair alarm - Incontinence Bowel Incontinence - DVT Risk due to restricted mobility and age - Skin Breakdown Risk due to restricted mobility and age - Cardiac Precaution Monitor blood pressure, heart rate, lower extremity edema, notify MD for shortness of breath or chest pain Monitor patient for excessive elevation of heart rate and blood pressure during therapy Nursing and Therapy to monitor pt before and after therapy sessions for signs of Chest pain - Aspiration Precaution No straws Seated at 90 degrees while eating and 30 minutes after meals - Weight Bearing Precaution WBAT left LE ACTIVITIES OOB only with supervision THERAPIES: - Dietary and Nutrition Adequate Nutrition. Nutritional Education. Nutritional Supplements. - Occupational Therapy Cognitive Retraining. Patient needs Occupational Therapy for a daily minimum of 1.5 hours at least 5 out of 7 days, to improve Activities of Daily Living, including: Eating, Grooming, Bathing, Dressing, Toileting, Toilet Transfers, Community Reintegration, Higher functional activities, Adaptive Equipme nt, Splinting, Household Tasks, and Other activities as determined. Visual Perceptual Training. - Speech Therapy Cognitive Training. Dysphagia Therapy. Expressive Language Skills. Memory Strategies. Patient needs S peech Therapy for a daily minimum of 1.5 hours at least 5 out of 7 days, to improve: Swallowing, Cogn ition, Language Skills, and Compensatory Strategies. Receptive Language Skills. Speech Intelligibilit y Training. - Physical Therapy Patient needs Physical Therapy for a daily minimum of 1.5 hours at least 5 out of 7 days, to improve: Mobility, Strengthening, Transfers, Stretching, ROM, Endurance, Ability to manage stairs, Gait, and Balance. Safety Awareness. PHYSICAL EXAM - Gen Alert and awake Lying in bed No apparent distress Oriented to: person, time, and place - Skin No skin breakdown. Normacephalic with poor dentition. - Eyes No abnormalities - ENMT No abnormalities - Neck No abnormalities - CVS RRR - Chest Mildly decreased breath sounds bilaterally. - Resp No wheezing - Abd Soft - GI Non distended Deferred - No abnormalities - Ext Mild bilateral lower extremity edema. - MSK 4/5 weakness in both lower extremities. - Neuro 4/5 strength right upper and lower extremities. - Psych Mild depression. ASSESSMENT: On 08/18/2021 [facility] sudden onset of left-sideweakness with mode rate expressive aphasia and receptive aphasia.On 08/18/2021 [facility]. [facility] th sudden onset of left-side weakness.Pt. is a 89 yo black male.On 08/18/2021 [facility] was [facility] CVA.His impairment category is Stroke 01 - Left Body (Right Brain) (01.1).Pre-morbidly, Pt. was independent/mod-I in Locomotion, Self-Care, and Communication; and he gordon d good Safety Awareness, Social Cognition, Balance, Transfers Control, and Endurance.Currently, he gordon s deficits of Locomotion, Safety Awareness, Social Cognition, Balance, Transfers Control, Sphincter C ontrol, Communication, Endurance, and Self-Care.Pt. is now referred to [facility] for acute in-patient rehabilitation in order to maximize patient's functional independence in act ivities of daily living, strength, ROM, and mobility.- Rehab Goal Patient has realistic goal of being discharged at assistance level 4-Peace to reside at Home with Fam phillip/Relatives. MDM/PLAN: - Physical Therapy Gait dysfunction - to improve, our physical therapists will perform initial evaluation of pt's statu s upon admission and devise an individualized program for Gait Training, and Wheel Chair mobility Inability to transfer - to improve, our physical therapists will perform initial evaluation of pt's status upon admission and devise an individualized program for Bed mobility Need for home safety evaluation - to improve, our physical therapists will perform initial evaluatio n of pt's status upon admission and devise an individualized program for Home Evaluation Need in caregiver upon discharge - to improve, our physical therapists will perform initial evaluati on of pt's status upon admission and devise an individualized program for Caregiver Training New precaution - to improve, our physical therapists will perform initial evaluation of pt's status upon admission and devise an individualized program for Patient precaution education Edema - to improve, our physical therapists will perform initial evaluation of pt's status upon admi ssion and devise an individualized program for Elevation Training, and Lymphedema Therapy Poor balance - to improve, our physical therapists will perform initial evaluation of pt's status up on admission and devise an individualized program for Balance Training Poor endurance - to improve, our physical therapists will perform initial evaluation of pt's status upon admission and devise an individualized program for Endurance Training Weakness - to improve, our physical therapists will perform initial evaluation of pt's status upon a dmission and devise an individualized program for Aquatic Therapy, Neuromuscular Reeducation, and Str engthening Achieving independence - to improve, our physical therapists will perform initial evaluation of pt's status upon admission and devise an individualized program for Community Reintegration Activities - Occupational Therapy ADL deficits - to improve, our occupation therapists will perform initial evaluation of pt's status upon admission and devise an individualized program for Bathing, Bed mobility, Community Reintegratio n, Cooking, Dressing, Eating, Fine Motor Skills, Grooming, Homemaking, Kitchen Mobility, Laundry, Pat ient Education, Safety Awareness, Splinting - Positioning, Transfers(Toilet, Tub, Shower), and Wheel Chair Management Cognitive deficits - to improve, our occupation therapists will perform initial evaluation of pt's s tatus upon admission and devise an individualized program for Cognition - orientation Need for home child care provider - to improve, our occupation therapists will perform initial evaluation of pt's status upon admission and devise an individualized program for Caregiver Training Weakness - to improve, our occupation therapists will perform initial evaluation of pt's status upon admission and devise an individualized program for Aquatic Therapy, Balance, Endurance, UE ROM, and UE strengthening - Other See attached MAR (Medication Administration Record) - Diet Type Continue Regular - Diet - Liquid Texture Continue Honey-Thickened - Tube Feed Continue N/A - Incontinence Bowel Incontinence - Bladder care per protocol - DVT Risk due to restricted mobility and age - Skin Breakdown Risk due to restricted mobility and age - Cardiac Precaution Monitor blood pressure, heart rate, lower extremity edema, notify MD for shortness of breath or ches t pain Monitor patient for excessive elevation of heart rate and blood pressure during therapy Nursing and Therapy to monitor pt before and after therapy sessions for signs of Chest pain - Weight Bearing Precaution WBAT left LE - Fall Precaution Bed alarm TABS alarm Wheel chair alarm - Skin care per protocol - Diet - Solid Texture Continue Pureed Continue Regular - Shower allowing shower for Dementia, TBI, Stroke, or others FUNCTIONAL STATUS: UPDATED AT WEEKLY TEAM CONFERENCE - Bladder Same accident frequency: 7-Ind - No accidents in the past 7 days - Bowel Same accident frequency: 7-Ind - No accidents in the past 7 days - Walking Same score based on distance walked: 0(N/A) - Wheelchair Same score based on distance traveled: 0(N/A) FUNCTIONAL STATUS: - Self-Care A. Eating maxA B. Grooming maxA C. Bathing maxA D. Dressing - Upper modA E. Dressing - Lower maxA F. Toileting modA - Sphincter Control G. Bladder control sup H. Bowel control sup - Transfers Control I. Bed/Chair/Wheelchair maxA J. Toilet maxA K. Tub/Shower maxA - Locomotion L. Walk/Wheelchair (B) maxA M. Stairs ADNO - Communication N. Comprehension (B) maxA O. Expression (B) maxA - Social Cognition P. Social Interaction modA Q. Problem Solving maxA R. Memory maxA - Endurance Poor - Balance Poor - Safety Awareness Poor QI SCORES: - Self-Care A. Eating 03-Partial/moderate assistance B. Oral hygiene 03-Partial/moderate assistance C. Toileting hygiene 03-Partial/moderate assistance E. Shower/bathe self 03-Partial/moderate assistance F. Upper body dressing 03-Partial/moderate assistance G. Lower body dressing 02-Substantial/maximal assistance H. Putting on/taking off footwear 02-Substantial/maximal assistance - Mobility A. Roll left and right 02-Substantial/maximal assistance B. Sit to lying 02-Substantial/maximal assistance C. Lying to sitting on side of bed 02-Substantial/maximal assistance D. Sit to stand 88-Not attempted due to medical condition or safety concerns E. Chair/[id number]-mv-[id number] transfer 88-Not attempted due to medical condition or safety concerns F. Toilet transfer 88-Not attempted due to medical condition or safety concerns G. Car transfer 88-Not attempted due to medical condition or safety concerns I. Walk 10 feet 88-Not attempted due to medical condition or safety concerns J. Walk 50 feet with two turns 88-Not attempted due to medical condition or safety concerns K. Walk 150 feet 88-Not attempted due to medical condition or safety concerns L. Walking 10 feet on uneven surfaces 88-Not attempted due to medical condition or safety concerns M. 1 step (curb) 88-Not attempted due to medical condition or safety concerns N. 4 steps 88-Not attempted due to medical condition or safety concerns O. 12 steps 88-Not attempted due to medical condition or safety concerns P. Picking up object 88-Not attempted due to medical condition or safety concerns R. Wheel 50 feet with two turns S. Wheel 150 feet - Bladder and Bowel Bladder continence 3-Incontinent daily Bowel continence 2-Frequently incontinent - Endurance Poor - Balance Poor - Safety Awareness Poor CURRENT FUNC. DEFICITS: Self-Care, Mobility, Endurance, Balance, and Safety Awareness SIGNATURE PANEL: (CDT)
[2021-08-25] MEDS: carvediloL 3.125 MG TAB PO SCH (17:42)
[2021-08-25] MEDS: ATORVASTATIN 40 MG TAB PO SCH (19:20)
[2021-08-26] MEDS: carvediloL 3.125 MG TAB PO SCH (05:24)
[2021-08-26] MEDS: LEVOTHYROXINE SOD 0.075 MG TAB PO SCH (06:24)
[2021-08-26] MEDS: INSULIN -REGULAR HUMAN 50 UNIT/0.5 ML ML SQ SCH ×4 (07:30→20:24)
[2021-08-26] MEDS: OXcarbazepine 150 MG TAB PO SCH ×2 (08:13→20:23)
[2021-08-26] MEDS: FUROSEMIDE 20 MG TABLET PO SCH (08:13)
[2021-08-26] MEDS: APIXABAN 2.5 MG TABLET PO SCH ×2 (08:14→20:23)
[2021-08-26] MEDS: ASPIRIN 81 MG CHEWABLE TABLET PO SCH (08:14)
--- NOTE | 2021-08-26 17:20 | R.PN ---
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 Pt denied any Shortness of Breath. CBC with differential is essentially normal. Glucose 74 to 89, prealbumin 10.9, Insole Taper 1.34. His MBSS showed severe premature spillage to the valleculae and moderate into the pyrifom sinuses. He has a strong cough. Now on small bites and sips with chin tuck. Very elevated BP, with increase Coreg to 6.25 mg bid. Ambulated 24' with max assistance using parallel bars. Wheelchair mobilization 250' with contact guar d assistance. VITAL SIGNS Temperature: 97.4 F SBP/DBP: 174/79 Pulse: 58 Resp: 16 MEDICATION ALLERGIES: No Known Drug Allergies (NKDA) ENVIRONMENTAL ALLERGIES: - Substance Allergies None Known - Other Allergies None Known NURSING: - Shower allowing shower - Bladder care per protocol - Skin care per protocol PRECAUTIONS: - Fall Precaution Bed alarm TABS alarm Wheel chair alarm - Incontinence Bowel Incontinence - DVT Risk due to restricted mobility and age - Skin Breakdown Risk due to restricted mobility and age - Cardiac Precaution Monitor blood pressure, heart rate, lower extremity edema, notify MD for shortness of breath or chest pain Monitor patient for excessive elevation of heart rate and blood pressure during therapy Nursing and Therapy to monitor pt before and after therapy sessions for signs of Chest pain - Aspiration Precaution No straws Seated at 90 degrees while eating and 30 minutes after meals - Weight Bearing Precaution WBAT left LE ACTIVITIES OOB only with supervision THERAPIES: - Dietary and Nutrition Adequate Nutrition. Nutritional Education. Nutritional Supplements. - Occupational Therapy Cognitive Retraining. Patient needs Occupational Therapy for a daily minimum of 1.5 hours at least 5 out of 7 days, to improve Activities of Daily Living, including: Eating, Grooming, Bathing, Dressing, Toileting, Toilet Transfers, Community Reintegration, Higher functional activities, Adaptive Equipme nt, Splinting, Household Tasks, and Other activities as determined. Visual Perceptual Training. - Speech Therapy Cognitive Training. Dysphagia Therapy. Expressive Language Skills. Memory Strategies. Patient needs S peech Therapy for a daily minimum of 1.5 hours at least 5 out of 7 days, to improve: Swallowing, Cogn ition, Language Skills, and Compensatory Strategies. Receptive Language Skills. Speech Intelligibilit y Training. - Physical Therapy Patient needs Physical Therapy for a daily minimum of 1.5 hours at least 5 out of 7 days, to improve: Mobility, Strengthening, Transfers, Stretching, ROM, Endurance, Ability to manage stairs, Gait, and Balance. Safety Awareness. PHYSICAL EXAM - Gen Alert and awake Lying in bed No apparent distress Oriented to: person, time, and place - Skin No skin breakdown. Normacephalic with poor dentition. - Eyes No abnormalities - ENMT No abnormalities - Neck No abnormalities - CVS RRR - Chest Mildly decreased breath sounds bilaterally. - Resp No wheezing - Abd Soft - GI Non distended Deferred - No abnormalities - Ext Mild bilateral lower extremity edema. - MSK 4/5 weakness in both lower extremities. - Neuro 4/5 strength right upper and lower extremities. - Psych Mild depression. ASSESSMENT: On 08/18/2021 Pt. presented to [facility] with sudden onset of left-sideweakness with mode rate expressive aphasia and receptive aphasia.On 08/18/2021 Pt. presented to [facility] wi th sudden onset of left-side weakness.Pt. is a 89 yo black male.On 08/18/2021 he was admitted to [facility] with diagnosis CVA.His impairment category is Stroke 01 - Left Body (Right Brain) (01.1).Pre-morbidly, Pt. was independent/mod-I in Locomotion, Self-Care, and Communication; and he gordno d good Safety Awareness, Social Cognition, Balance, Transfers Control, and Endurance.Currently, he gordon s deficits of Locomotion, Safety Awareness, Social Cognition, Balance, Transfers Control, Sphincter C ontrol, Communication, Endurance, and Self-Care.Pt. is now referred to [facility] for acute in-patient rehabilitation in order to maximize patient's functional independence in act ivities of daily living, strength, ROM, and mobility.- Rehab Goal Patient has realistic goal of being discharged at assistance level 4-Peace to reside at Home with Fam phillip/Relatives. MDM/PLAN: - Physical Therapy Gait dysfunction - to improve, our physical therapists will perform initial evaluation of pt's statu s upon admission and devise an individualized program for Gait Training, and Wheel Chair mobility Inability to transfer - to improve, our physical therapists will perform initial evaluation of pt's status upon admission and devise an individualized program for Bed mobility Need for home safety evaluation - to improve, our physical therapists will perform initial evaluatio n of pt's status upon admission and devise an individualized program for Home Evaluation Need in caregiver upon discharge - to improve, our physical therapists will perform initial evaluati on of pt's status upon admission and devise an individualized program for Caregiver Training New precaution - to improve, our physical therapists will perform initial evaluation of pt's status upon admission and devise an individualized program for Patient precaution education Edema - to improve, our physical therapists will perform initial evaluation of pt's status upon admi ssion and devise an individualized program for Elevation Training, and Lymphedema Therapy Poor balance - to improve, our physical therapists will perform initial evaluation of pt's status up on admission and devise an individualized program for Balance Training Poor endurance - to improve, our physical therapists will perform initial evaluation of pt's status upon admission and devise an individualized program for Endurance Training Weakness - to improve, our physical therapists will perform initial evaluation of pt's status upon a dmission and devise an individualized program for Aquatic Therapy, Neuromuscular Reeducation, and Str engthening Achieving independence - to improve, our physical therapists will perform initial evaluation of pt's status upon admission and devise an individualized program for Community Reintegration Activities - Occupational Therapy ADL deficits - to improve, our occupation therapists will perform initial evaluation of pt's status upon admission and devise an individualized program for Bathing, Bed mobility, Community Reintegratio n, Cooking, Dressing, Eating, Fine Motor Skills, Grooming, Homemaking, Kitchen Mobility, Laundry, Pat ient Education, Safety Awareness, Splinting - Positioning, Transfers(Toilet, Tub, Shower), and Wheel Chair Management Cognitive deficits - to improve, our occupation therapists will perform initial evaluation of pt's s tatus upon admission and devise an individualized program for Cognition - orientation Need for career orientation teacher - to improve, our occupation therapists will perform initial evaluation of pt's status upon admission and devise an individualized program for Caregiver Training Weakness - to improve, our occupation therapists will perform initial evaluation of pt's status upon admission and devise an individualized program for Aquatic Therapy, Balance, Endurance, UE ROM, and UE strengthening - Other See attached MAR (Medication Administration Record) - Diet Type Continue Regular - Diet - Liquid Texture Continue Honey-Thickened - Tube Feed Continue N/A - Incontinence Bowel Incontinence - Bladder care per protocol - DVT Risk due to restricted mobility and age - Skin Breakdown Risk due to restricted mobility and age - Cardiac Precaution Monitor blood pressure, heart rate, lower extremity edema, notify MD for shortness of breath or ches t pain Monitor patient for excessive elevation of heart rate and blood pressure during therapy Nursing and Therapy to monitor pt before and after therapy sessions for signs of Chest pain - Weight Bearing Precaution WBAT left LE - Fall Precaution Bed alarm TABS alarm Wheel chair alarm - Skin care per protocol - Diet - Solid Texture Continue Pureed Continue Regular - Shower allowing shower for Dementia, TBI, Stroke, or others FUNCTIONAL STATUS: UPDATED AT WEEKLY TEAM CONFERENCE - Bladder Same accident frequency: 7-Ind - No accidents in the past 7 days - Bowel Same accident frequency: 7-Ind - No accidents in the past 7 days - Walking Same score based on distance walked: 0(N/A) - Wheelchair Same score based on distance traveled: 0(N/A) FUNCTIONAL STATUS: - Self-Care A. Eating maxA B. Grooming maxA C. Bathing maxA D. Dressing - Upper modA E. Dressing - Lower maxA F. Toileting modA - Sphincter Control G. Bladder control sup H. Bowel control sup - Transfers Control I. Bed/Chair/Wheelchair maxA J. Toilet maxA K. Tub/Shower maxA - Locomotion L. Walk/Wheelchair (B) maxA M. Stairs ADNO - Communication N. Comprehension (B) maxA O. Expression (B) maxA - Social Cognition P. Social Interaction modA Q. Problem Solving maxA R. Memory maxA - Endurance Poor - Balance Poor - Safety Awareness Poor QI SCORES: - Self-Care A. Eating 03-Partial/moderate assistance B. Oral hygiene 03-Partial/moderate assistance C. Toileting hygiene 03-Partial/moderate assistance E. Shower/bathe self 03-Partial/moderate assistance F. Upper body dressing 03-Partial/moderate assistance G. Lower body dressing 02-Substantial/maximal assistance H. Putting on/taking off footwear 02-Substantial/maximal assistance - Mobility A. Roll left and right 02-Substantial/maximal assistance B. Sit to lying 02-Substantial/maximal assistance C. Lying to sitting on side of bed 02-Substantial/maximal assistance D. Sit to stand 88-Not attempted due to medical condition or safety concerns E. Chair/[id number] transfer 88-Not attempted due to medical condition or safety concerns F. Toilet transfer 88-Not attempted due to medical condition or safety concerns G. Car transfer 88-Not attempted due to medical condition or safety concerns I. Walk 10 feet 88-Not attempted due to medical condition or safety concerns J. Walk 50 feet with two turns 88-Not attempted due to medical condition or safety concerns K. Walk 150 feet 88-Not attempted due to medical condition or safety concerns L. Walking 10 feet on uneven surfaces 88-Not attempted due to medical condition or safety concerns M. 1 step (curb) 88-Not attempted due to medical condition or safety concerns N. 4 steps 88-Not attempted due to medical condition or safety concerns O. 12 steps 88-Not attempted due to medical condition or safety concerns P. Picking up object 88-Not attempted due to medical condition or safety concerns R. Wheel 50 feet with two turns S. Wheel 150 feet - Bladder and Bowel Bladder continence 3-Incontinent daily Bowel continence 2-Frequently incontinent - Endurance Poor - Balance Poor - Safety Awareness Poor CURRENT FUNC. DEFICITS: Self-Care, Mobility, Endurance, Balance, and Safety Awareness SIGNATURE PANEL: (CDT)
[2021-08-26] MEDS: carvediloL 6.25 MG TAB PO SCH (17:25)
[2021-08-26] MEDS: ATORVASTATIN 40 MG TAB PO SCH (20:23)
[2021-08-27] MEDS: carvediloL 6.25 MG TAB PO SCH ×3 (05:26→21:01)
[2021-08-27] MEDS: LEVOTHYROXINE SOD 0.075 MG TAB PO SCH (05:26)
[2021-08-27 06:38] LABS: Absolute Lymphocytes (CBC) 1.5 K/uL (0.7-4.9); Hematocrit 38.3 % (39.6-49.0); Lymphocytes % 37.7 % (15.3-44.8); MPV 8.3 fL (7.6-11.3); RBC Red Blood Cell Count 4.15 M/uL (4.33-5.43)
[2021-08-27 07:03] LABS: Albumin 3.2 g/dL (3.4-5.0); Potassium 3.9 mmol/L (3.5-5.1); Prealbumin 13.5 mg/dL (20-40)
[2021-08-27] MEDS: INSULIN -REGULAR HUMAN 50 UNIT/0.5 ML ML SQ SCH ×4 (07:30→21:00)
[2021-08-27] MEDS: OXcarbazepine 150 MG TAB PO SCH ×2 (08:06→21:01)
[2021-08-27] MEDS: ASPIRIN 81 MG CHEWABLE TABLET PO SCH (08:07)
[2021-08-27] MEDS: FUROSEMIDE 20 MG TABLET PO SCH (08:07)
[2021-08-27] MEDS: APIXABAN 2.5 MG TABLET PO SCH ×2 (08:07→21:01)
[2021-08-27 11:14] LABS: Urine Appearance Clear (Clear); Urine Bilirubin Negative (Negative); Urine Blood Negative (Negative); Urine Color Yellow (Yellow); Urine Glucose Negative (Negative); Urine Protein Negative (Negative)
[2021-08-27 11:21] LABS: Urine Microscopic Reflex ORDER UMIC
[2021-08-27 12:35] LABS: Urine Bacteria <20 /HPF (NONE SEEN); Urine RBC <5 /HPF (NONE SEEN)
--- NOTE | 2021-08-27 18:21 | R.PN ---
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 Pt denied any Shortness of Breath. WBC 4.0, Hgb 12.7. Glucose 88 to 106, prealbumin 13.5, Server Service Assistant 1.34. His MBSS showed severe premature spillage to the valleculae and moderate into the pyrifom sinuses. He has a strong cough. Now on small bites and sips with chin tuck. Very elevated BP, with increase Coreg to 6.25 mg bid. Ambulated 15' with max assistance using parallel bars. Ambulated 20' with max assistance using katerina g walker. VITAL SIGNS Temperature: 99.0 F SBP/DBP: 153/86 Pulse: 71 Resp: 16 MEDICATION ALLERGIES: No Known Drug Allergies (NKDA) ENVIRONMENTAL ALLERGIES: - Substance Allergies None Known - Other Allergies None Known NURSING: - Shower allowing shower - Bladder care per protocol - Skin care per protocol PRECAUTIONS: - Fall Precaution Bed alarm TABS alarm Wheel chair alarm - Incontinence Bowel Incontinence - DVT Risk due to restricted mobility and age - Skin Breakdown Risk due to restricted mobility and age - Cardiac Precaution Monitor blood pressure, heart rate, lower extremity edema, notify MD for shortness of breath or chest pain Monitor patient for excessive elevation of heart rate and blood pressure during therapy Nursing and Therapy to monitor pt before and after therapy sessions for signs of Chest pain - Aspiration Precaution No straws Seated at 90 degrees while eating and 30 minutes after meals - Weight Bearing Precaution WBAT left LE ACTIVITIES OOB only with supervision THERAPIES: - Dietary and Nutrition Adequate Nutrition. Nutritional Education. Nutritional Supplements. - Occupational Therapy Cognitive Retraining. Patient needs Occupational Therapy for a daily minimum of 1.5 hours at least 5 out of 7 days, to improve Activities of Daily Living, including: Eating, Grooming, Bathing, Dressing, Toileting, Toilet Transfers, Community Reintegration, Higher functional activities, Adaptive Equipme nt, Splinting, Household Tasks, and Other activities as determined. Visual Perceptual Training. - Speech Therapy Cognitive Training. Dysphagia Therapy. Expressive Language Skills. Memory Strategies. Patient needs S peech Therapy for a daily minimum of 1.5 hours at least 5 out of 7 days, to improve: Swallowing, Cogn ition, Language Skills, and Compensatory Strategies. Receptive Language Skills. Speech Intelligibilit y Training. - Physical Therapy Patient needs Physical Therapy for a daily minimum of 1.5 hours at least 5 out of 7 days, to improve: Mobility, Strengthening, Transfers, Stretching, ROM, Endurance, Ability to manage stairs, Gait, and Balance. Safety Awareness. PHYSICAL EXAM - Gen Alert and awake Lying in bed No apparent distress Oriented to: person, time, and place - Skin No skin breakdown. Normacephalic with poor dentition. - Eyes No abnormalities - ENMT No abnormalities - Neck No abnormalities - CVS RRR - Chest Mildly decreased breath sounds bilaterally. - Resp No wheezing - Abd Soft - GI Non distended Deferred - No abnormalities - Ext Mild bilateral lower extremity edema. - MSK 4/5 weakness in both lower extremities. - Neuro 4/5 strength right upper and lower extremities. - Psych Mild depression. ASSESSMENT: On 08/18/2021 Pt. presented to [facility] with sudden onset of left-sideweakness with mode rate expressive aphasia and receptive aphasia.On 08/18/2021 Pt. presented to [facility] wi th sudden onset of left-side weakness.Pt. is a 89 yo black male.On 08/18/2021 he was admitted to [facility] with diagnosis CVA.His impairment category is Stroke 01 - Left Body (Right Brain) (01.1).Pre-morbidly, Pt. was independent/mod-I in Locomotion, Self-Care, and Communication; and he gordon d good Safety Awareness, Social Cognition, Balance, Transfers Control, and Endurance.Currently, he gordon s deficits of Locomotion, Safety Awareness, Social Cognition, Balance, Transfers Control, Sphincter C ontrol, Communication, Endurance, and Self-Care.Pt. is now referred to [facility] for acute in-patient rehabilitation in order to maximize patient's functional independence in act ivities of daily living, strength, ROM, and mobility.- Rehab Goal Patient has realistic goal of being discharged at assistance level 4-Peace to reside at Home with Fam phillip/Relatives. MDM/PLAN: - Physical Therapy Gait dysfunction - to improve, our physical therapists will perform initial evaluation of pt's statu s upon admission and devise an individualized program for Gait Training, and Wheel Chair mobility Inability to transfer - to improve, our physical therapists will perform initial evaluation of pt's status upon admission and devise an individualized program for Bed mobility Need for home safety evaluation - to improve, our physical therapists will perform initial evaluatio n of pt's status upon admission and devise an individualized program for Home Evaluation Need in caregiver upon discharge - to improve, our physical therapists will perform initial evaluati on of pt's status upon admission and devise an individualized program for Caregiver Training New precaution - to improve, our physical therapists will perform initial evaluation of pt's status upon admission and devise an individualized program for Patient precaution education Edema - to improve, our physical therapists will perform initial evaluation of pt's status upon admi ssion and devise an individualized program for Elevation Training, and Lymphedema Therapy Poor balance - to improve, our physical therapists will perform initial evaluation of pt's status up on admission and devise an individualized program for Balance Training Poor endurance - to improve, our physical therapists will perform initial evaluation of pt's status upon admission and devise an individualized program for Endurance Training Weakness - to improve, our physical therapists will perform initial evaluation of pt's status upon a dmission and devise an individualized program for Aquatic Therapy, Neuromuscular Reeducation, and Str engthening Achieving independence - to improve, our physical therapists will perform initial evaluation of pt's status upon admission and devise an individualized program for Community Reintegration Activities - Occupational Therapy ADL deficits - to improve, our occupation therapists will perform initial evaluation of pt's status upon admission and devise an individualized program for Bathing, Bed mobility, Community Reintegratio n, Cooking, Dressing, Eating, Fine Motor Skills, Grooming, Homemaking, Kitchen Mobility, Laundry, Pat ient Education, Safety Awareness, Splinting - Positioning, Transfers(Toilet, Tub, Shower), and Wheel Chair Management Cognitive deficits - to improve, our occupation therapists will perform initial evaluation of pt's s tatus upon admission and devise an individualized program for Cognition - orientation Need for healthcare business analyst - to improve, our occupation therapists will perform initial evaluation of pt's status upon admission and devise an individualized program for Caregiver Training Weakness - to improve, our occupation therapists will perform initial evaluation of pt's status upon admission and devise an individualized program for Aquatic Therapy, Balance, Endurance, UE ROM, and UE strengthening - Other See attached MAR (Medication Administration Record) - Diet Type Continue Regular - Diet - Liquid Texture Continue Honey-Thickened - Tube Feed Continue N/A - Incontinence Bowel Incontinence - Bladder care per protocol - DVT Risk due to restricted mobility and age - Skin Breakdown Risk due to restricted mobility and age - Cardiac Precaution Monitor blood pressure, heart rate, lower extremity edema, notify MD for shortness of breath or ches t pain Monitor patient for excessive elevation of heart rate and blood pressure during therapy Nursing and Therapy to monitor pt before and after therapy sessions for signs of Chest pain - Weight Bearing Precaution WBAT left LE - Fall Precaution Bed alarm TABS alarm Wheel chair alarm - Skin care per protocol - Diet - Solid Texture Continue Pureed Continue Regular - Shower allowing shower for Dementia, TBI, Stroke, or others FUNCTIONAL STATUS: UPDATED AT WEEKLY TEAM CONFERENCE - Bladder Same accident frequency: 7-Ind - No accidents in the past 7 days - Bowel Same accident frequency: 7-Ind - No accidents in the past 7 days - Walking Same score based on distance walked: 0(N/A) - Wheelchair Same score based on distance traveled: 0(N/A) FUNCTIONAL STATUS: - Self-Care A. Eating maxA B. Grooming maxA C. Bathing maxA D. Dressing - Upper modA E. Dressing - Lower maxA F. Toileting modA - Sphincter Control G. Bladder control sup H. Bowel control sup - Transfers Control I. Bed/Chair/Wheelchair maxA J. Toilet maxA K. Tub/Shower maxA - Locomotion L. Walk/Wheelchair (B) maxA M. Stairs ADNO - Communication N. Comprehension (B) maxA O. Expression (B) maxA - Social Cognition P. Social Interaction modA Q. Problem Solving maxA R. Memory maxA - Endurance Poor - Balance Poor - Safety Awareness Poor QI SCORES: - Self-Care A. Eating 03-Partial/moderate assistance B. Oral hygiene 03-Partial/moderate assistance C. Toileting hygiene 03-Partial/moderate assistance E. Shower/bathe self 03-Partial/moderate assistance F. Upper body dressing 03-Partial/moderate assistance G. Lower body dressing 02-Substantial/maximal assistance H. Putting on/taking off footwear 02-Substantial/maximal assistance - Mobility A. Roll left and right 02-Substantial/maximal assistance B. Sit to lying 02-Substantial/maximal assistance C. Lying to sitting on side of bed 02-Substantial/maximal assistance D. Sit to stand 88-Not attempted due to medical condition or safety concerns E. Chair/[id number] transfer 88-Not attempted due to medical condition or safety concerns F. Toilet transfer 88-Not attempted due to medical condition or safety concerns G. Car transfer 88-Not attempted due to medical condition or safety concerns I. Walk 10 feet 88-Not attempted due to medical condition or safety concerns J. Walk 50 feet with two turns 88-Not attempted due to medical condition or safety concerns K. Walk 150 feet 88-Not attempted due to medical condition or safety concerns L. Walking 10 feet on uneven surfaces 88-Not attempted due to medical condition or safety concerns M. 1 step (curb) 88-Not attempted due to medical condition or safety concerns N. 4 steps 88-Not attempted due to medical condition or safety concerns O. 12 steps 88-Not attempted due to medical condition or safety concerns P. Picking up object 88-Not attempted due to medical condition or safety concerns R. Wheel 50 feet with two turns S. Wheel 150 feet - Bladder and Bowel Bladder continence 3-Incontinent daily Bowel continence 2-Frequently incontinent - Endurance Poor - Balance Poor - Safety Awareness Poor CURRENT FUNC. DEFICITS: Self-Care, Mobility, Endurance, Balance, and Safety Awareness SIGNATURE PANEL: (CDT)
[2021-08-27] MEDS: ATORVASTATIN 40 MG TAB PO SCH (21:01)
[2021-08-28] MEDS: LEVOTHYROXINE SOD 0.075 MG TAB PO SCH (05:17)
[2021-08-28] MEDS: OXcarbazepine 150 MG TAB PO SCH ×2 (07:22→18:50)
[2021-08-28] MEDS: APIXABAN 2.5 MG TABLET PO SCH ×2 (07:22→18:51)
[2021-08-28] MEDS: FUROSEMIDE 20 MG TABLET PO SCH (07:22)
[2021-08-28] MEDS: ASPIRIN 81 MG CHEWABLE TABLET PO SCH (07:22)
[2021-08-28] MEDS: INSULIN -REGULAR HUMAN 50 UNIT/0.5 ML ML SQ SCH ×2 (07:30→11:30)
--- NOTE | 2021-08-28 09:56 | P.RH.PN ---
Estimated Length of Stay: 20 Expected Discharge Date: 09/09/21 Discharge Disposition Plan: Home Family Support: Yes Penitentiary Goal: Mobility, Transfers, Self Care Vital Signs: Last Vital Signs Temp 97.4 F 08/28/21 07:14 Pulse 53 08/28/21 07:22 Resp 18 08/28/21 07:14 BP 130/67 08/28/21 07:22 Pulse Ox 96 08/28/21 07:14 Laboratory: Laboratory Last Values WBC 4.0 K/uL (4.3-10.9) L 08/27/21 06:23 RBC 4.15 M/uL (4.33-5.43) L 08/27/21 06:23 Hgb 12.7 g/dL (13.6-17.9) L 08/27/21 06:23 Hct 38.3 % (39.6-49.0) L 08/27/21 06:23 MCV 92.2 fL (80-100) 08/27/21 06:23 MCH 30.6 pg (27.0-35.0) 08/27/21 06:23 MCHC 33.2 g/dL (32.0-36.0) 08/27/21 06:23 RDW 13.8 % (12.1-15.2) 08/27/21 06:23 Plt Count 170 K/uL (152-406) 08/27/21 06:23 MPV 8.3 fL (7.6-11.3) 08/27/21 06:23 Neutrophils % 46.1 % (41.7-73.7) 08/27/21 06:23 Lymphocytes % 37.7 % (15.3-44.8) 08/27/21 06:23 Monocytes % 12.4 % (3.3-12.3) H 08/27/21 06:23 Eosinophils % 2.9 % (0-4.4) 08/27/21 06:23 Basophils % 0.9 % (0-1.3) 08/27/21 06:23 Absolute Neutrophils 1.8 K/uL (1.8-8.0) 08/27/21 06:23 Absolute Lymphocytes 1.5 K/uL (0.7-4.9) 08/27/21 06:23 Absolute Monocytes 0.5 K/uL (0.1-1.3) 08/27/21 06:23 Absolute Eosinophils 0.1 K/uL (0-0.5) 08/27/21 06:23 Absolute Basophils 0.0 K/uL (0-0.5) 08/27/21 06:23 Sodium 141 mmol/L (136-145) 08/27/21 06:23 Potassium 3.9 mmol/L (3.5-5.1) 08/27/21 06:23 Chloride 109 mmol/L (98-107) H 08/27/21 06:23 Carbon Dioxide 27 mmol/L (21-32) 08/27/21 06:23 Anion Gap 8.9 mEq/L (5.0-15.0) 08/27/21 06:23 BUN 16 mg/dL (7-18) 08/27/21 06:23 Creatinine 1.30 mg/dL (0.55-1.3) 08/27/21 06:23 Estimated GFR 69 mL/min (=/>90) L 08/24/21 07:57 Est GFR (CKD-EPI) 53 ml/min (=/>90) L 08/27/21 06:23 Glucose 91 mg/dL (74-106) 08/27/21 06:23 POC Glucose 84 mg/dL (65-120) 08/28/21 06:39 Calcium 9.4 mg/dL (8.5-10.1) 08/27/21 06:23 Phosphorus 2.7 mg/dL (2.5-4.9) 08/21/21 04:18 Magnesium 2.0 mg/dL (1.8-2.4) 08/27/21 06:23 Albumin 3.2 g/dL (3.4-5.0) L 08/27/21 06:23 Prealbumin 13.5 mg/dL (20-40) L 08/27/21 06:23 Urine Color Yellow (Yellow) 08/27/21 10:33 Urine Appearance Clear (Clear) 08/27/21 10:33 Urine pH 6.0 (5.0-7.0) 08/27/21 10:33 Ur Specific [place] 1.020 (1.005-1.030) 08/27/21 10:33 Glucose (UA)(Auto) Negative (Negative) 08/27/21 10:33 Urine Ketones Negative (Negative) 08/27/21 10:33 Urine Blood Negative (Negative) 08/27/21 10:33 Urine Nitrite Negative (Negative) 08/27/21 10:33 Urine Bilirubin Negative (Negative) 08/27/21 10:33 Urine Urobilinogen 2.0 mg/dL (0.2-1.0) H 08/27/21 10:33 Ur Leukocyte Esterase Negative (Negative) 08/27/21 10:33 Urine RBC <5 /HPF (NONE SEEN) 08/27/21 10:33 Urine WBC <5 /HPF (<5) 08/27/21 10:33 Ur Squamous Epith Cells <5 /HPF (NONE SEEN) 08/27/21 10:33 Ur Urothelial Cells Cancelled 08/27/21 06:38 Calcium Oxalate Crystal Cancelled 08/27/21 06:38 Uric Acid Crystals Cancelled 08/27/21 06:38 Triple Phos Crystals Cancelled 08/27/21 06:38 Other Crystals Cancelled 08/27/21 06:38 Amorphous Sediment Cancelled 08/27/21 06:38 Glitter Cells Cancelled 08/27/21 06:38 Urine Bacteria <20 /HPF (NONE SEEN) 08/27/21 10:33 Hyaline Casts Cancelled 08/27/21 06:38 Fine Granular Casts Cancelled 08/27/21 06:38 Coarse Granular Casts Cancelled 08/27/21 06:38 Waxy Casts Cancelled 08/27/21 06:38 RBC Casts Cancelled 08/27/21 06:38 WBC Casts Cancelled 08/27/21 06:38 Urine Mucus Cancelled 08/27/21 06:38 Urine Other Cancelled 08/27/21 06:38 Urine Trichomonas Cancelled 08/27/21 06:38 Urine Yeast Cancelled 08/27/21 06:38 Ur Yeast w Hyphae Cancelled 08/27/21 06:38 Urine Yeast (Budding) Cancelled 08/27/21 06:38 Urine Sperm Cancelled 08/27/21 06:38 Urine Culture Reflexed Not needed 08/27/21 10:33 Urine Total Volume Cancelled 08/27/21 06:38 Urine Total Protein Negative (Negative) 08/27/21 10:33 SARS-CoV-2 Rap RNA(RT-PCR) Negative (NEGATIVE) 08/25/21 14:05 Weight: 163 lb Wound Present: No Closed Surgical Incision Present: No Negative Pressure Wound Therapy Present: No Physician Update: He is making fair overall progress with all therapy. Max assistance with bed mobility, transfering max assistance. Mod assistance with ADL. Parallel bars and walker 4-5'. Queing needed. Blood pressure is better controlled. He is doing better eating on his own. Blood work is better. Mod assistance with shower transfers, min assistance bathing. Max assistance for lower body dressing. Summary: Patient's care plan and terminal manager goals have been reviewed and revised as necessary. Please see the Rehabilitation Signature page for all necessary signatures.
[2021-08-28] MEDS: carvediloL 6.25 MG TAB PO SCH (16:42)
[2021-08-28] MEDS: ATORVASTATIN 40 MG TAB PO SCH (18:50)
[2021-08-29] MEDS: carvediloL 6.25 MG TAB PO SCH ×2 (05:19→17:51)
[2021-08-29] MEDS: LEVOTHYROXINE SOD 0.075 MG TAB PO SCH (07:17)
[2021-08-29] MEDS: FUROSEMIDE 20 MG TABLET PO SCH (09:10)
[2021-08-29] MEDS: APIXABAN 2.5 MG TABLET PO SCH ×2 (09:10→20:41)
[2021-08-29] MEDS: ASPIRIN 81 MG CHEWABLE TABLET PO SCH (09:11)
[2021-08-29] MEDS: OXcarbazepine 150 MG TAB PO SCH ×2 (09:11→20:41)
[2021-08-29] MEDS: ATORVASTATIN 40 MG TAB PO SCH (20:41)
[2021-08-30] MEDS: LEVOTHYROXINE SOD 0.075 MG TAB PO SCH (05:05)
[2021-08-30] MEDS: carvediloL 6.25 MG TAB PO SCH ×2 (05:05→17:06)
[2021-08-30] MEDS: FUROSEMIDE 20 MG TABLET PO SCH (08:43)
[2021-08-30] MEDS: OXcarbazepine 150 MG TAB PO SCH ×2 (08:43→19:54)
[2021-08-30] MEDS: ASPIRIN 81 MG CHEWABLE TABLET PO SCH (08:43)
[2021-08-30] MEDS: APIXABAN 2.5 MG TABLET PO SCH ×2 (08:43→19:54)
[2021-08-30] MEDS: ATORVASTATIN 40 MG TAB PO SCH (19:54)
[2021-08-31] MEDS: carvediloL 6.25 MG TAB PO SCH ×2 (05:18→17:01)
[2021-08-31] MEDS: LEVOTHYROXINE SOD 0.075 MG TAB PO SCH (05:18)
[2021-08-31] MEDS: FUROSEMIDE 20 MG TABLET PO SCH (08:26)
[2021-08-31] MEDS: APIXABAN 2.5 MG TABLET PO SCH ×2 (08:26→20:17)
[2021-08-31] MEDS: OXcarbazepine 150 MG TAB PO SCH ×2 (08:26→20:17)
[2021-08-31] MEDS: ASPIRIN 81 MG CHEWABLE TABLET PO SCH (08:26)
--- NOTE | 2021-08-31 19:00 | R.PN ---
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 Pt denied any Shortness of Breath. WBC 4.0, Hgb 12.7. Glucose 84 to 150, prealbumin 13.5, Ancillary Services Manager Therapy 1.34. His MBSS showed severe premature spillage to the valleculae and moderate into the pyrifom sinuses. He has a strong cough. Now on small bites and sips with chin tuck. Very elevated BP, Coreg to 6.25 mg bid. Ambulated 500' with min to mod assistance using rolling walker. VITAL SIGNS Temperature: 99.0 F SBP/DBP: 137/73 Pulse: 63 Resp: 16 MEDICATION ALLERGIES: No Known Drug Allergies (NKDA) ENVIRONMENTAL ALLERGIES: - Substance Allergies None Known - Other Allergies None Known NURSING: - Shower allowing shower - Bladder care per protocol - Skin care per protocol PRECAUTIONS: - Fall Precaution Bed alarm TABS alarm Wheel chair alarm - Incontinence Bowel Incontinence - DVT Risk due to restricted mobility and age - Skin Breakdown Risk due to restricted mobility and age - Cardiac Precaution Monitor blood pressure, heart rate, lower extremity edema, notify MD for shortness of breath or chest pain Monitor patient for excessive elevation of heart rate and blood pressure during therapy Nursing and Therapy to monitor pt before and after therapy sessions for signs of Chest pain - Aspiration Precaution No straws Seated at 90 degrees while eating and 30 minutes after meals - Weight Bearing Precaution WBAT left LE ACTIVITIES OOB only with supervision THERAPIES: - Dietary and Nutrition Adequate Nutrition. Nutritional Education. Nutritional Supplements. - Occupational Therapy Cognitive Retraining. Patient needs Occupational Therapy for a daily minimum of 1.5 hours at least 5 out of 7 days, to improve Activities of Daily Living, including: Eating, Grooming, Bathing, Dressing, Toileting, Toilet Transfers, Community Reintegration, Higher functional activities, Adaptive Equipme nt, Splinting, Household Tasks, and Other activities as determined. Visual Perceptual Training. - Speech Therapy Cognitive Training. Dysphagia Therapy. Expressive Language Skills. Memory Strategies. Patient needs S peech Therapy for a daily minimum of 1.5 hours at least 5 out of 7 days, to improve: Swallowing, Cogn ition, Language Skills, and Compensatory Strategies. Receptive Language Skills. Speech Intelligibilit y Training. - Physical Therapy Patient needs Physical Therapy for a daily minimum of 1.5 hours at least 5 out of 7 days, to improve: Mobility, Strengthening, Transfers, Stretching, ROM, Endurance, Ability to manage stairs, Gait, and Balance. Safety Awareness. PHYSICAL EXAM - Gen Alert and awake Lying in bed No apparent distress Oriented to: person, time, and place - Skin No skin breakdown. Normacephalic with poor dentition. - Eyes No abnormalities - ENMT No abnormalities - Neck No abnormalities - CVS RRR - Chest Mildly decreased breath sounds bilaterally. - Resp No wheezing - Abd Soft - GI Non distended Deferred - No abnormalities - Ext Mild bilateral lower extremity edema. - MSK 4/5 weakness in both lower extremities. - Neuro 4/5 strength right upper and lower extremities. - Psych Mild depression. ASSESSMENT: On 08/18/2021 Pt. presented to [facility] with sudden onset of left-sideweakness with mode rate expressive aphasia and receptive aphasia.On 08/18/2021 Pt. presented to [facility] wi th sudden onset of left-side weakness.Pt. is a 89 yo black male.On 08/18/2021 he was admitted to [facility] with diagnosis CVA.His impairment category is Stroke 01 - Left Body (Right Brain) (01.1).Pre-morbidly, Pt. was independent/mod-I in Locomotion, Self-Care, and Communication; and he gordon d good Safety Awareness, Social Cognition, Balance, Transfers Control, and Endurance.Currently, he gordon s deficits of Locomotion, Safety Awareness, Social Cognition, Balance, Transfers Control, Sphincter C ontrol, Communication, Endurance, and Self-Care.Pt. is now referred to [facility] for acute in-patient rehabilitation in order to maximize patient's functional independence in act ivities of daily living, strength, ROM, and mobility.- Rehab Goal Patient has realistic goal of being discharged at assistance level 4-Peace to reside at Home with Fam phillip/Relatives. MDM/PLAN: - Physical Therapy Gait dysfunction - to improve, our physical therapists will perform initial evaluation of pt's statu s upon admission and devise an individualized program for Gait Training, and Wheel Chair mobility Inability to transfer - to improve, our physical therapists will perform initial evaluation of pt's status upon admission and devise an individualized program for Bed mobility Need for home safety evaluation - to improve, our physical therapists will perform initial evaluatio n of pt's status upon admission and devise an individualized program for Home Evaluation Need in caregiver upon discharge - to improve, our physical therapists will perform initial evaluati on of pt's status upon admission and devise an individualized program for Caregiver Training New precaution - to improve, our physical therapists will perform initial evaluation of pt's status upon admission and devise an individualized program for Patient precaution education Edema - to improve, our physical therapists will perform initial evaluation of pt's status upon admi ssion and devise an individualized program for Elevation Training, and Lymphedema Therapy Poor balance - to improve, our physical therapists will perform initial evaluation of pt's status up on admission and devise an individualized program for Balance Training Poor endurance - to improve, our physical therapists will perform initial evaluation of pt's status upon admission and devise an individualized program for Endurance Training Weakness - to improve, our physical therapists will perform initial evaluation of pt's status upon a dmission and devise an individualized program for Aquatic Therapy, Neuromuscular Reeducation, and Str engthening Achieving independence - to improve, our physical therapists will perform initial evaluation of pt's status upon admission and devise an individualized program for Community Reintegration Activities - Occupational Therapy ADL deficits - to improve, our occupation therapists will perform initial evaluation of pt's status upon admission and devise an individualized program for Bathing, Bed mobility, Community Reintegratio n, Cooking, Dressing, Eating, Fine Motor Skills, Grooming, Homemaking, Kitchen Mobility, Laundry, Pat ient Education, Safety Awareness, Splinting - Positioning, Transfers(Toilet, Tub, Shower), and Wheel Chair Management Cognitive deficits - to improve, our occupation therapists will perform initial evaluation of pt's s tatus upon admission and devise an individualized program for Cognition - orientation Need for career placement services counselor - to improve, our occupation therapists will perform initial evaluation of pt's status upon admission and devise an individualized program for Caregiver Training Weakness - to improve, our occupation therapists will perform initial evaluation of pt's status upon admission and devise an individualized program for Aquatic Therapy, Balance, Endurance, UE ROM, and UE strengthening - Other See attached MAR (Medication Administration Record) - Diet Type Continue Regular - Diet - Liquid Texture Continue Honey-Thickened - Tube Feed Continue N/A - Incontinence Bowel Incontinence - Bladder care per protocol - DVT Risk due to restricted mobility and age - Skin Breakdown Risk due to restricted mobility and age - Cardiac Precaution Monitor blood pressure, heart rate, lower extremity edema, notify MD for shortness of breath or ches t pain Monitor patient for excessive elevation of heart rate and blood pressure during therapy Nursing and Therapy to monitor pt before and after therapy sessions for signs of Chest pain - Weight Bearing Precaution WBAT left LE - Fall Precaution Bed alarm TABS alarm Wheel chair alarm - Skin care per protocol - Diet - Solid Texture Continue Pureed Continue Regular - Shower allowing shower for Dementia, TBI, Stroke, or others FUNCTIONAL STATUS: UPDATED AT WEEKLY TEAM CONFERENCE - Bladder Same accident frequency: 7-Ind - No accidents in the past 7 days - Bowel Same accident frequency: 7-Ind - No accidents in the past 7 days - Walking Same score based on distance walked: 0(N/A) - Wheelchair Same score based on distance traveled: 0(N/A) FUNCTIONAL STATUS: - Self-Care A. Eating maxA B. Grooming maxA C. Bathing maxA D. Dressing - Upper modA E. Dressing - Lower maxA F. Toileting modA - Sphincter Control G. Bladder control sup H. Bowel control sup - Transfers Control I. Bed/Chair/Wheelchair maxA J. Toilet maxA K. Tub/Shower maxA - Locomotion L. Walk/Wheelchair (B) maxA M. Stairs ADNO - Communication N. Comprehension (B) maxA O. Expression (B) maxA - Social Cognition P. Social Interaction modA Q. Problem Solving maxA R. Memory maxA - Endurance Poor - Balance Poor - Safety Awareness Poor QI SCORES: - Self-Care A. Eating 03-Partial/moderate assistance B. Oral hygiene 03-Partial/moderate assistance C. Toileting hygiene 03-Partial/moderate assistance E. Shower/bathe self 03-Partial/moderate assistance F. Upper body dressing 03-Partial/moderate assistance G. Lower body dressing 02-Substantial/maximal assistance H. Putting on/taking off footwear 02-Substantial/maximal assistance - Mobility A. Roll left and right 02-Substantial/maximal assistance B. Sit to lying 02-Substantial/maximal assistance C. Lying to sitting on side of bed 02-Substantial/maximal assistance D. Sit to stand 88-Not attempted due to medical condition or safety concerns E. Chair/[id number] transfer 88-Not attempted due to medical condition or safety concerns F. Toilet transfer 88-Not attempted due to medical condition or safety concerns G. Car transfer 88-Not attempted due to medical condition or safety concerns I. Walk 10 feet 88-Not attempted due to medical condition or safety concerns J. Walk 50 feet with two turns 88-Not attempted due to medical condition or safety concerns K. Walk 150 feet 88-Not attempted due to medical condition or safety concerns L. Walking 10 feet on uneven surfaces 88-Not attempted due to medical condition or safety concerns M. 1 step (curb) 88-Not attempted due to medical condition or safety concerns N. 4 steps 88-Not attempted due to medical condition or safety concerns O. 12 steps 88-Not attempted due to medical condition or safety concerns P. Picking up object 88-Not attempted due to medical condition or safety concerns R. Wheel 50 feet with two turns S. Wheel 150 feet - Bladder and Bowel Bladder continence 3-Incontinent daily Bowel continence 2-Frequently incontinent - Endurance Poor - Balance Poor - Safety Awareness Poor CURRENT FUNC. DEFICITS: Self-Care, Mobility, Endurance, Balance, and Safety Awareness SIGNATURE PANEL: (CDT)
[2021-08-31] MEDS: ATORVASTATIN 40 MG TAB PO SCH (20:17)
[2021-09-01] MEDS: carvediloL 6.25 MG TAB PO SCH ×2 (06:03→16:55)
[2021-09-01] MEDS: LEVOTHYROXINE SOD 0.075 MG TAB PO SCH (06:26)
[2021-09-01] MEDS: FUROSEMIDE 20 MG TABLET PO SCH (06:55)
[2021-09-01] MEDS: ASPIRIN 81 MG CHEWABLE TABLET PO SCH (06:56)
[2021-09-01] MEDS: OXcarbazepine 150 MG TAB PO SCH ×2 (06:56→19:09)
[2021-09-01] MEDS: APIXABAN 2.5 MG TABLET PO SCH ×2 (08:02→19:09)
--- NOTE | 2021-09-01 18:06 | R.PN ---
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 Pt denied any Shortness of Breath. WBC 4.0, Hgb 12.7. Glucose 84 to 150, prealbumin 13.5, Director Of [employer] 1.34. His MBSS showed severe premature spillage to the valleculae and moderate into the pyrifom sinuses. He has a strong cough. Now on small bites and sips with chin tuck. Very elevated BP, Coreg to 6.25 mg bid. Ambulated 130' with min to mod assistance using rolling walker. Self propelled wheelchair 250' with c ontact guard assistance. VITAL SIGNS Temperature: 97.2 F SBP/DBP: 140/67 Pulse: 70 Resp: 16 MEDICATION ALLERGIES: No Known Drug Allergies (NKDA) ENVIRONMENTAL ALLERGIES: - Substance Allergies None Known - Other Allergies None Known NURSING: - Shower allowing shower - Bladder care per protocol - Skin care per protocol PRECAUTIONS: - Fall Precaution Bed alarm TABS alarm Wheel chair alarm - Incontinence Bowel Incontinence - DVT Risk due to restricted mobility and age - Skin Breakdown Risk due to restricted mobility and age - Cardiac Precaution Monitor blood pressure, heart rate, lower extremity edema, notify MD for shortness of breath or chest pain Monitor patient for excessive elevation of heart rate and blood pressure during therapy Nursing and Therapy to monitor pt before and after therapy sessions for signs of Chest pain - Aspiration Precaution No straws Seated at 90 degrees while eating and 30 minutes after meals - Weight Bearing Precaution WBAT left LE ACTIVITIES OOB only with supervision THERAPIES: - Dietary and Nutrition Adequate Nutrition. Nutritional Education. Nutritional Supplements. - Occupational Therapy Cognitive Retraining. Patient needs Occupational Therapy for a daily minimum of 1.5 hours at least 5 out of 7 days, to improve Activities of Daily Living, including: Eating, Grooming, Bathing, Dressing, Toileting, Toilet Transfers, Community Reintegration, Higher functional activities, Adaptive Equipme nt, Splinting, Household Tasks, and Other activities as determined. Visual Perceptual Training. - Speech Therapy Cognitive Training. Dysphagia Therapy. Expressive Language Skills. Memory Strategies. Patient needs S peech Therapy for a daily minimum of 1.5 hours at least 5 out of 7 days, to improve: Swallowing, Cogn ition, Language Skills, and Compensatory Strategies. Receptive Language Skills. Speech Intelligibilit y Training. - Physical Therapy Patient needs Physical Therapy for a daily minimum of 1.5 hours at least 5 out of 7 days, to improve: Mobility, Strengthening, Transfers, Stretching, ROM, Endurance, Ability to manage stairs, Gait, and Balance. Safety Awareness. PHYSICAL EXAM - Gen Alert and awake Lying in bed No apparent distress Oriented to: person, time, and place - Skin No skin breakdown. Normacephalic with poor dentition. - Eyes No abnormalities - ENMT No abnormalities - Neck No abnormalities - CVS RRR - Chest Mildly decreased breath sounds bilaterally. - Resp No wheezing - Abd Soft - GI Non distended Deferred - No abnormalities - Ext Mild bilateral lower extremity edema. - MSK 4/5 weakness in both lower extremities. - Neuro 4/5 strength right upper and lower extremities. - Psych Mild depression. ASSESSMENT: On 08/18/2021 Pt. presented to [facility] with sudden onset of left-sideweakness with mode rate expressive aphasia and receptive aphasia.On 08/18/2021 Pt. presented to [facility] wi th sudden onset of left-side weakness.Pt. is a 89 yo black male.On 08/18/2021 he was admitted to [facility] with diagnosis CVA.His impairment category is Stroke 01 - Left Body (Right Brain) (01.1).Pre-morbidly, Pt. was independent/mod-I in Locomotion, Self-Care, and Communication; and he gordon d good Safety Awareness, Social Cognition, Balance, Transfers Control, and Endurance.Currently, he gordon s deficits of Locomotion, Safety Awareness, Social Cognition, Balance, Transfers Control, Sphincter C ontrol, Communication, Endurance, and Self-Care.Pt. is now referred to [facility] for acute in-patient rehabilitation in order to maximize patient's functional independence in act ivities of daily living, strength, ROM, and mobility.- Rehab Goal Patient has realistic goal of being discharged at assistance level 4-Peace to reside at Home with Fam phillip/Relatives. MDM/PLAN: - Physical Therapy Gait dysfunction - to improve, our physical therapists will perform initial evaluation of pt's statu s upon admission and devise an individualized program for Gait Training, and Wheel Chair mobility Inability to transfer - to improve, our physical therapists will perform initial evaluation of pt's status upon admission and devise an individualized program for Bed mobility Need for home safety evaluation - to improve, our physical therapists will perform initial evaluatio n of pt's status upon admission and devise an individualized program for Home Evaluation Need in caregiver upon discharge - to improve, our physical therapists will perform initial evaluati on of pt's status upon admission and devise an individualized program for Caregiver Training New precaution - to improve, our physical therapists will perform initial evaluation of pt's status upon admission and devise an individualized program for Patient precaution education Edema - to improve, our physical therapists will perform initial evaluation of pt's status upon admi ssion and devise an individualized program for Elevation Training, and Lymphedema Therapy Poor balance - to improve, our physical therapists will perform initial evaluation of pt's status up on admission and devise an individualized program for Balance Training Poor endurance - to improve, our physical therapists will perform initial evaluation of pt's status upon admission and devise an individualized program for Endurance Training Weakness - to improve, our physical therapists will perform initial evaluation of pt's status upon a dmission and devise an individualized program for Aquatic Therapy, Neuromuscular Reeducation, and Str engthening Achieving independence - to improve, our physical therapists will perform initial evaluation of pt's status upon admission and devise an individualized program for Community Reintegration Activities - Occupational Therapy ADL deficits - to improve, our occupation therapists will perform initial evaluation of pt's status upon admission and devise an individualized program for Bathing, Bed mobility, Community Reintegratio n, Cooking, Dressing, Eating, Fine Motor Skills, Grooming, Homemaking, Kitchen Mobility, Laundry, Pat ient Education, Safety Awareness, Splinting - Positioning, Transfers(Toilet, Tub, Shower), and Wheel Chair Management Cognitive deficits - to improve, our occupation therapists will perform initial evaluation of pt's s tatus upon admission and devise an individualized program for Cognition - orientation Need for neonatal critical care nurse - to improve, our occupation therapists will perform initial evaluation of pt's status upon admission and devise an individualized program for Caregiver Training Weakness - to improve, our occupation therapists will perform initial evaluation of pt's status upon admission and devise an individualized program for Aquatic Therapy, Balance, Endurance, UE ROM, and UE strengthening - Other See attached MAR (Medication Administration Record) - Diet Type Continue Regular - Diet - Liquid Texture Continue Honey-Thickened - Tube Feed Continue N/A - Incontinence Bowel Incontinence - Bladder care per protocol - DVT Risk due to restricted mobility and age - Skin Breakdown Risk due to restricted mobility and age - Cardiac Precaution Monitor blood pressure, heart rate, lower extremity edema, notify MD for shortness of breath or ches t pain Monitor patient for excessive elevation of heart rate and blood pressure during therapy Nursing and Therapy to monitor pt before and after therapy sessions for signs of Chest pain - Weight Bearing Precaution WBAT left LE - Fall Precaution Bed alarm TABS alarm Wheel chair alarm - Skin care per protocol - Diet - Solid Texture Continue Pureed Continue Regular - Shower allowing shower for Dementia, TBI, Stroke, or others FUNCTIONAL STATUS: UPDATED AT WEEKLY TEAM CONFERENCE - Bladder Same accident frequency: 7-Ind - No accidents in the past 7 days - Bowel Same accident frequency: 7-Ind - No accidents in the past 7 days - Walking Same score based on distance walked: 0(N/A) - Wheelchair Same score based on distance traveled: 0(N/A) FUNCTIONAL STATUS: - Self-Care A. Eating maxA B. Grooming maxA C. Bathing maxA D. Dressing - Upper modA E. Dressing - Lower maxA F. Toileting modA - Sphincter Control G. Bladder control sup H. Bowel control sup - Transfers Control I. Bed/Chair/Wheelchair maxA J. Toilet maxA K. Tub/Shower maxA - Locomotion L. Walk/Wheelchair (B) maxA M. Stairs ADNO - Communication N. Comprehension (B) maxA O. Expression (B) maxA - Social Cognition P. Social Interaction modA Q. Problem Solving maxA R. Memory maxA - Endurance Poor - Balance Poor - Safety Awareness Poor QI SCORES: - Self-Care A. Eating 03-Partial/moderate assistance B. Oral hygiene 03-Partial/moderate assistance C. Toileting hygiene 03-Partial/moderate assistance E. Shower/bathe self 03-Partial/moderate assistance F. Upper body dressing 03-Partial/moderate assistance G. Lower body dressing 02-Substantial/maximal assistance H. Putting on/taking off footwear 02-Substantial/maximal assistance - Mobility A. Roll left and right 02-Substantial/maximal assistance B. Sit to lying 02-Substantial/maximal assistance C. Lying to sitting on side of bed 02-Substantial/maximal assistance D. Sit to stand 88-Not attempted due to medical condition or safety concerns E. Chair/[id number] transfer 88-Not attempted due to medical condition or safety concerns F. Toilet transfer 88-Not attempted due to medical condition or safety concerns G. Car transfer 88-Not attempted due to medical condition or safety concerns I. Walk 10 feet 88-Not attempted due to medical condition or safety concerns J. Walk 50 feet with two turns 88-Not attempted due to medical condition or safety concerns K. Walk 150 feet 88-Not attempted due to medical condition or safety concerns L. Walking 10 feet on uneven surfaces 88-Not attempted due to medical condition or safety concerns M. 1 step (curb) 88-Not attempted due to medical condition or safety concerns N. 4 steps 88-Not attempted due to medical condition or safety concerns O. 12 steps 88-Not attempted due to medical condition or safety concerns P. Picking up object 88-Not attempted due to medical condition or safety concerns R. Wheel 50 feet with two turns S. Wheel 150 feet - Bladder and Bowel Bladder continence 3-Incontinent daily Bowel continence 2-Frequently incontinent - Endurance Poor - Balance Poor - Safety Awareness Poor CURRENT FUNC. DEFICITS: Self-Care, Mobility, Endurance, Balance, and Safety Awareness SIGNATURE PANEL: (CDT)
[2021-09-01] MEDS: ATORVASTATIN 40 MG TAB PO SCH (19:09)
[2021-09-02] MEDS: carvediloL 6.25 MG TAB PO SCH ×2 (05:20→16:53)
[2021-09-02] MEDS: LEVOTHYROXINE SOD 0.075 MG TAB PO SCH (06:20)
[2021-09-02] MEDS: ASPIRIN 81 MG CHEWABLE TABLET PO SCH (07:47)
[2021-09-02] MEDS: APIXABAN 2.5 MG TABLET PO SCH ×2 (07:47→19:21)
[2021-09-02] MEDS: FUROSEMIDE 20 MG TABLET PO SCH (07:47)
[2021-09-02] MEDS: OXcarbazepine 150 MG TAB PO SCH ×2 (07:47→19:21)
[2021-09-02] MEDS: ATORVASTATIN 40 MG TAB PO SCH (19:21)
--- NOTE | 2021-09-02 20:20 | R.PN ---
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 Pt denied any Shortness of Breath. WBC 4.0, Hgb 12.7. Glucose 80 to 150, prealbumin 13.5, Head [employer]er[employer] 1.34. His MBSS showed severe premature spillage to the valleculae and moderate into the pyrifom sinuses. He has a strong cough. Now on small bites and sips with chin tuck. Very elevated BP, Coreg to 6.25 mg bid. Ambulated 110' with min to mod assistance using rolling walker. Self propelled wheelchair 250' with c ontact guard assistance. VITAL SIGNS Temperature: 97.4 F SBP/DBP: 112/75 Pulse: 62 Resp: 16 MEDICATION ALLERGIES: No Known Drug Allergies (NKDA) ENVIRONMENTAL ALLERGIES: - Substance Allergies None Known - Other Allergies None Known NURSING: - Shower allowing shower - Bladder care per protocol - Skin care per protocol PRECAUTIONS: - Fall Precaution Bed alarm TABS alarm Wheel chair alarm - Incontinence Bowel Incontinence - DVT Risk due to restricted mobility and age - Skin Breakdown Risk due to restricted mobility and age - Cardiac Precaution Monitor blood pressure, heart rate, lower extremity edema, notify MD for shortness of breath or chest pain Monitor patient for excessive elevation of heart rate and blood pressure during therapy Nursing and Therapy to monitor pt before and after therapy sessions for signs of Chest pain - Aspiration Precaution No straws Seated at 90 degrees while eating and 30 minutes after meals - Weight Bearing Precaution WBAT left LE ACTIVITIES OOB only with supervision THERAPIES: - Dietary and Nutrition Adequate Nutrition. Nutritional Education. Nutritional Supplements. - Occupational Therapy Cognitive Retraining. Patient needs Occupational Therapy for a daily minimum of 1.5 hours at least 5 out of 7 days, to improve Activities of Daily Living, including: Eating, Grooming, Bathing, Dressing, Toileting, Toilet Transfers, Community Reintegration, Higher functional activities, Adaptive Equipme nt, Splinting, Household Tasks, and Other activities as determined. Visual Perceptual Training. - Speech Therapy Cognitive Training. Dysphagia Therapy. Expressive Language Skills. Memory Strategies. Patient needs S peech Therapy for a daily minimum of 1.5 hours at least 5 out of 7 days, to improve: Swallowing, Cogn ition, Language Skills, and Compensatory Strategies. Receptive Language Skills. Speech Intelligibilit y Training. - Physical Therapy Patient needs Physical Therapy for a daily minimum of 1.5 hours at least 5 out of 7 days, to improve: Mobility, Strengthening, Transfers, Stretching, ROM, Endurance, Ability to manage stairs, Gait, and Balance. Safety Awareness. PHYSICAL EXAM - Gen Alert and awake Lying in bed No apparent distress Oriented to: person, time, and place - Skin No skin breakdown. Normacephalic with poor dentition. - Eyes No abnormalities - ENMT No abnormalities - Neck No abnormalities - CVS RRR - Chest Mildly decreased breath sounds bilaterally. - Resp No wheezing - Abd Soft - GI Non distended Deferred - No abnormalities - Ext Mild bilateral lower extremity edema. - MSK 4/5 weakness in both lower extremities. - Neuro 4/5 strength right upper and lower extremities. - Psych Mild depression. ASSESSMENT: On 08/18/2021 Pt. presented to [facility] with sudden onset of left-sideweakness with mode rate expressive aphasia and receptive aphasia.On 08/18/2021 Pt. presented to [facility] wi th sudden onset of left-side weakness.Pt. is a 89 yo black male.On 08/18/2021 he was admitted to [facility] with diagnosis CVA.His impairment category is Stroke 01 - Left Body (Right Brain) (01.1).Pre-morbidly, Pt. was independent/mod-I in Locomotion, Self-Care, and Communication; and he gordon d good Safety Awareness, Social Cognition, Balance, Transfers Control, and Endurance.Currently, he gordon s deficits of Locomotion, Safety Awareness, Social Cognition, Balance, Transfers Control, Sphincter C ontrol, Communication, Endurance, and Self-Care.Pt. is now referred to [facility] for acute in-patient rehabilitation in order to maximize patient's functional independence in act ivities of daily living, strength, ROM, and mobility.- Rehab Goal Patient has realistic goal of being discharged at assistance level 4-Peace to reside at Home with Fam phillip/Relatives. MDM/PLAN: - Physical Therapy Gait dysfunction - to improve, our physical therapists will perform initial evaluation of pt's statu s upon admission and devise an individualized program for Gait Training, and Wheel Chair mobility Inability to transfer - to improve, our physical therapists will perform initial evaluation of pt's status upon admission and devise an individualized program for Bed mobility Need for home safety evaluation - to improve, our physical therapists will perform initial evaluatio n of pt's status upon admission and devise an individualized program for Home Evaluation Need in caregiver upon discharge - to improve, our physical therapists will perform initial evaluati on of pt's status upon admission and devise an individualized program for Caregiver Training New precaution - to improve, our physical therapists will perform initial evaluation of pt's status upon admission and devise an individualized program for Patient precaution education Edema - to improve, our physical therapists will perform initial evaluation of pt's status upon admi ssion and devise an individualized program for Elevation Training, and Lymphedema Therapy Poor balance - to improve, our physical therapists will perform initial evaluation of pt's status up on admission and devise an individualized program for Balance Training Poor endurance - to improve, our physical therapists will perform initial evaluation of pt's status upon admission and devise an individualized program for Endurance Training Weakness - to improve, our physical therapists will perform initial evaluation of pt's status upon a dmission and devise an individualized program for Aquatic Therapy, Neuromuscular Reeducation, and Str engthening Achieving independence - to improve, our physical therapists will perform initial evaluation of pt's status upon admission and devise an individualized program for Community Reintegration Activities - Occupational Therapy ADL deficits - to improve, our occupation therapists will perform initial evaluation of pt's status upon admission and devise an individualized program for Bathing, Bed mobility, Community Reintegratio n, Cooking, Dressing, Eating, Fine Motor Skills, Grooming, Homemaking, Kitchen Mobility, Laundry, Pat ient Education, Safety Awareness, Splinting - Positioning, Transfers(Toilet, Tub, Shower), and Wheel Chair Management Cognitive deficits - to improve, our occupation therapists will perform initial evaluation of pt's s tatus upon admission and devise an individualized program for Cognition - orientation Need for ocular care aide - to improve, our occupation therapists will perform initial evaluation of pt's status upon admission and devise an individualized program for Caregiver Training Weakness - to improve, our occupation therapists will perform initial evaluation of pt's status upon admission and devise an individualized program for Aquatic Therapy, Balance, Endurance, UE ROM, and UE strengthening - Other See attached MAR (Medication Administration Record) - Diet Type Continue Regular - Diet - Liquid Texture Continue Honey-Thickened - Tube Feed Continue N/A - Incontinence Bowel Incontinence - Bladder care per protocol - DVT Risk due to restricted mobility and age - Skin Breakdown Risk due to restricted mobility and age - Cardiac Precaution Monitor blood pressure, heart rate, lower extremity edema, notify MD for shortness of breath or ches t pain Monitor patient for excessive elevation of heart rate and blood pressure during therapy Nursing and Therapy to monitor pt before and after therapy sessions for signs of Chest pain - Weight Bearing Precaution WBAT left LE - Fall Precaution Bed alarm TABS alarm Wheel chair alarm - Skin care per protocol - Diet - Solid Texture Continue Pureed Continue Regular - Shower allowing shower for Dementia, TBI, Stroke, or others FUNCTIONAL STATUS: UPDATED AT WEEKLY TEAM CONFERENCE - Bladder Same accident frequency: 7-Ind - No accidents in the past 7 days - Bowel Same accident frequency: 7-Ind - No accidents in the past 7 days - Walking Same score based on distance walked: 0(N/A) - Wheelchair Same score based on distance traveled: 0(N/A) FUNCTIONAL STATUS: - Self-Care A. Eating maxA B. Grooming maxA C. Bathing maxA D. Dressing - Upper modA E. Dressing - Lower maxA F. Toileting modA - Sphincter Control G. Bladder control sup H. Bowel control sup - Transfers Control I. Bed/Chair/Wheelchair maxA J. Toilet maxA K. Tub/Shower maxA - Locomotion L. Walk/Wheelchair (B) maxA M. Stairs ADNO - Communication N. Comprehension (B) maxA O. Expression (B) maxA - Social Cognition P. Social Interaction modA Q. Problem Solving maxA R. Memory maxA - Endurance Poor - Balance Poor - Safety Awareness Poor QI SCORES: - Self-Care A. Eating 03-Partial/moderate assistance B. Oral hygiene 03-Partial/moderate assistance C. Toileting hygiene 03-Partial/moderate assistance E. Shower/bathe self 03-Partial/moderate assistance F. Upper body dressing 03-Partial/moderate assistance G. Lower body dressing 02-Substantial/maximal assistance H. Putting on/taking off footwear 02-Substantial/maximal assistance - Mobility A. Roll left and right 02-Substantial/maximal assistance B. Sit to lying 02-Substantial/maximal assistance C. Lying to sitting on side of bed 02-Substantial/maximal assistance D. Sit to stand 88-Not attempted due to medical condition or safety concerns E. Chair/[id number] transfer 88-Not attempted due to medical condition or safety concerns F. Toilet transfer 88-Not attempted due to medical condition or safety concerns G. Car transfer 88-Not attempted due to medical condition or safety concerns I. Walk 10 feet 88-Not attempted due to medical condition or safety concerns J. Walk 50 feet with two turns 88-Not attempted due to medical condition or safety concerns K. Walk 150 feet 88-Not attempted due to medical condition or safety concerns L. Walking 10 feet on uneven surfaces 88-Not attempted due to medical condition or safety concerns M. 1 step (curb) 88-Not attempted due to medical condition or safety concerns N. 4 steps 88-Not attempted due to medical condition or safety concerns O. 12 steps 88-Not attempted due to medical condition or safety concerns P. Picking up object 88-Not attempted due to medical condition or safety concerns R. Wheel 50 feet with two turns S. Wheel 150 feet - Bladder and Bowel Bladder continence 3-Incontinent daily Bowel continence 2-Frequently incontinent - Endurance Poor - Balance Poor - Safety Awareness Poor CURRENT FUNC. DEFICITS: Self-Care, Mobility, Endurance, Balance, and Safety Awareness SIGNATURE PANEL: (CDT)
[2021-09-03] MEDS: LEVOTHYROXINE SOD 0.075 MG TAB PO SCH (05:12)
[2021-09-03] MEDS: carvediloL 6.25 MG TAB PO SCH ×2 (05:12→17:29)
[2021-09-03 06:37] LABS: Absolute Lymphocytes (CBC) 1.6 K/uL (0.7-4.9); Hematocrit 37.5 % (39.6-49.0); Lymphocytes % 35.7 % (15.3-44.8); MPV 8.4 fL (7.6-11.3); RBC Red Blood Cell Count 4.09 M/uL (4.33-5.43)
[2021-09-03 06:53] LABS: Albumin 3.1 g/dL (3.4-5.0); Magnesium 2.1 mg/dL (1.8-2.4); Potassium 4.2 mmol/L (3.5-5.1); Prealbumin 15.5 mg/dL (20-40)
[2021-09-03] MEDS: ASPIRIN 81 MG CHEWABLE TABLET PO SCH (07:19)
[2021-09-03] MEDS: APIXABAN 2.5 MG TABLET PO SCH ×2 (07:19→19:07)
[2021-09-03] MEDS: OXcarbazepine 150 MG TAB PO SCH ×2 (07:19→19:07)
[2021-09-03] MEDS: FUROSEMIDE 20 MG TABLET PO SCH (07:19)
--- NOTE | 2021-09-03 09:56 | P.RH.PN ---
Estimated Length of Stay: 20 Expected Discharge Date: 09/09/21 Discharge Disposition Plan: Home [facility] Goal: Mobility, Transfers, Self Care Vital Signs: Last Vital Signs Temp 97.9 F 09/03/21 07:14 Pulse 66 09/03/21 07:19 Resp 16 09/03/21 07:14 BP 134/65 09/03/21 07:19 Pulse Ox 97 09/03/21 07:14 Laboratory: Laboratory Last Values WBC 4.4 K/uL (4.3-10.9) 09/03/21 06:14 RBC 4.09 M/uL (4.33-5.43) L 09/03/21 06:14 Hgb 12.7 g/dL (13.6-17.9) L 09/03/21 06:14 Hct 37.5 % (39.6-49.0) L 09/03/21 06:14 MCV 91.8 fL (80-100) 09/03/21 06:14 MCH 31.0 pg (27.0-35.0) 09/03/21 06:14 MCHC 33.8 g/dL (32.0-36.0) 09/03/21 06:14 RDW 14.0 % (12.1-15.2) 09/03/21 06:14 Plt Count 143 K/uL (152-406) L 09/03/21 06:14 MPV 8.4 fL (7.6-11.3) 09/03/21 06:14 Neutrophils % 50.8 % (41.7-73.7) 09/03/21 06:14 Lymphocytes % 35.7 % (15.3-44.8) 09/03/21 06:14 Monocytes % 9.7 % (3.3-12.3) 09/03/21 06:14 Eosinophils % 2.8 % (0-4.4) 09/03/21 06:14 Basophils % 1.0 % (0-1.3) 09/03/21 06:14 Absolute Neutrophils 2.2 K/uL (1.8-8.0) 09/03/21 06:14 Absolute Lymphocytes 1.6 K/uL (0.7-4.9) 09/03/21 06:14 Absolute Monocytes 0.4 K/uL (0.1-1.3) 09/03/21 06:14 Absolute Eosinophils 0.1 K/uL (0-0.5) 09/03/21 06:14 Absolute Basophils 0.0 K/uL (0-0.5) 09/03/21 06:14 Sodium 144 mmol/L (136-145) 09/03/21 06:14 Potassium 4.2 mmol/L (3.5-5.1) 09/03/21 06:14 Chloride 114 mmol/L (98-107) H 09/03/21 06:14 Carbon Dioxide 26 mmol/L (21-32) 09/03/21 06:14 Anion Gap 8.2 mEq/L (5.0-15.0) 09/03/21 06:14 BUN 23 mg/dL (7-18) H 09/03/21 06:14 Creatinine 1.39 mg/dL (0.55-1.3) H 09/03/21 06:14 Estimated GFR 69 mL/min (=/>90) L 08/24/21 07:57 Est GFR (CKD-EPI) 48 ml/min (=/>90) L 09/03/21 06:14 Glucose 101 mg/dL (74-106) 09/03/21 06:14 POC Glucose 84 mg/dL (65-120) 08/28/21 06:39 Calcium 9.4 mg/dL (8.5-10.1) 09/03/21 06:14 Phosphorus 2.7 mg/dL (2.5-4.9) 08/21/21 04:18 Magnesium 2.1 mg/dL (1.8-2.4) 09/03/21 06:14 Albumin 3.1 g/dL (3.4-5.0) L 09/03/21 06:14 Prealbumin 15.5 mg/dL (20-40) L 09/03/21 06:14 Urine Color Yellow (Yellow) 08/27/21 10:33 Urine Appearance Clear (Clear) 08/27/21 10:33 Urine pH 6.0 (5.0-7.0) 08/27/21 10:33 Ur Specific Lenore 1.020 (1.005-1.030) 08/27/21 10:33 Glucose (UA)(Auto) Negative (Negative) 08/27/21 10:33 Urine Ketones Negative (Negative) 08/27/21 10:33 Urine Blood Negative (Negative) 08/27/21 10:33 Urine Nitrite Negative (Negative) 08/27/21 10:33 Urine Bilirubin Negative (Negative) 08/27/21 10:33 Urine Urobilinogen 2.0 mg/dL (0.2-1.0) H 08/27/21 10:33 Ur Leukocyte Esterase Negative (Negative) 08/27/21 10:33 Urine RBC <5 /HPF (NONE SEEN) 08/27/21 10:33 Urine WBC <5 /HPF (<5) 08/27/21 10:33 Ur Squamous Epith Cells <5 /HPF (NONE SEEN) 08/27/21 10:33 Ur Urothelial Cells Cancelled 08/27/21 06:38 Calcium Oxalate Crystal Cancelled 08/27/21 06:38 Uric Acid Crystals Cancelled 08/27/21 06:38 Triple Phos Crystals Cancelled 08/27/21 06:38 Other Crystals Cancelled 08/27/21 06:38 Amorphous Sediment Cancelled 08/27/21 06:38 Glitter Cells Cancelled 08/27/21 06:38 Urine Bacteria <20 /HPF (NONE SEEN) 08/27/21 10:33 Hyaline Casts Cancelled 08/27/21 06:38 Fine Granular Casts Cancelled 08/27/21 06:38 Coarse Granular Casts Cancelled 08/27/21 06:38 Waxy Casts Cancelled 08/27/21 06:38 RBC Casts Cancelled 08/27/21 06:38 WBC Casts Cancelled 08/27/21 06:38 Urine Mucus Cancelled 08/27/21 06:38 Urine Other Cancelled 08/27/21 06:38 Urine Trichomonas Cancelled 08/27/21 06:38 Urine Yeast Cancelled 08/27/21 06:38 Ur Yeast w Hyphae Cancelled 08/27/21 06:38 Urine Yeast (Budding) Cancelled 08/27/21 06:38 Urine Sperm Cancelled 08/27/21 06:38 Urine Culture Reflexed Not needed 08/27/21 10:33 Urine Total Volume Cancelled 08/27/21 06:38 Urine Total Protein Negative (Negative) 08/27/21 10:33 SARS-CoV-2 Rap RNA(RT-PCR) Negative (NEGATIVE) 09/01/21 10:25 Weight: 163 lb Wound Present: No Closed Surgical Incision Present: No Negative Pressure Wound Therapy Present: No Physician Update: Blood work is good. Bed mobility SBA, sit to stand CGA, walk 50 to 75' with CGA, 250' with SBA with wheelchair. Better with communication with impaired expression. Will repeat MBS next week. Slightly better with min assistance bathing, mod assitance upper and lower body dressing. Min assistance shower. His son cares for the patient and his own son. The patient may require SNF. 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 Please see the Rehabilitation Signature page for all necessary signatures.
[2021-09-03] MEDS: ATORVASTATIN 40 MG TAB PO SCH (19:07)
[2021-09-04] MEDS: carvediloL 6.25 MG TAB PO SCH ×2 (05:14→16:56)
[2021-09-04] MEDS: ASPIRIN 81 MG CHEWABLE TABLET PO SCH (07:29)
[2021-09-04] MEDS: LEVOTHYROXINE SOD 0.075 MG TAB PO SCH (07:29)
[2021-09-04] MEDS: OXcarbazepine 150 MG TAB PO SCH ×2 (07:29→20:39)
[2021-09-04] MEDS: FUROSEMIDE 20 MG TABLET PO SCH (07:29)
[2021-09-04] MEDS: APIXABAN 2.5 MG TABLET PO SCH ×2 (07:30→20:39)
--- NOTE | 2021-09-04 16:20 | R.PN ---
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 Pt denied any Shortness of Breath. WBC 4.4, Hgb 12.7. 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 His MBSS showed severe premature spillage to the valleculae and moderate into the pyrifom sinuses. He has a strong cough. Now on small bites and sips with chin tuck. Very elevated BP, Coreg to 6.25 mg bid. Ambulated 400' with minimum assistance using rolling walker. Self propelled wheelchair 250' with sta ndby assistance. VITAL SIGNS Temperature: 98.1 F SBP/DBP: 129/72 Pulse: 55 Resp: 16 MEDICATION ALLERGIES: No Known Drug Allergies (NKDA) ENVIRONMENTAL ALLERGIES: - Substance Allergies None Known - Other Allergies None Known NURSING: - Shower allowing shower - Bladder care per protocol - Skin care per protocol PRECAUTIONS: - Fall Precaution Bed alarm TABS alarm Wheel chair alarm - Incontinence Bowel Incontinence - DVT Risk due to restricted mobility and age - Skin Breakdown Risk due to restricted mobility and age - Cardiac Precaution Monitor blood pressure, heart rate, lower extremity edema, notify MD for shortness of breath or chest pain Monitor patient for excessive elevation of heart rate and blood pressure during therapy Nursing and Therapy to monitor pt before and after therapy sessions for signs of Chest pain - Aspiration Precaution No straws Seated at 90 degrees while eating and 30 minutes after meals - Weight Bearing Precaution WBAT left LE ACTIVITIES OOB only with supervision THERAPIES: - Dietary and Nutrition Adequate Nutrition. Nutritional Education. Nutritional Supplements. - Occupational Therapy Cognitive Retraining. Patient needs Occupational Therapy for a daily minimum of 1.5 hours at least 5 out of 7 days, to improve Activities of Daily Living, including: Eating, Grooming, Bathing, Dressing, Toileting, Toilet Transfers, Community Reintegration, Higher functional activities, Adaptive Equipme nt, Splinting, Household Tasks, and Other activities as determined. Visual Perceptual Training. - Speech Therapy Cognitive Training. Dysphagia Therapy. Expressive Language Skills. Memory Strategies. Patient needs S peech Therapy for a daily minimum of 1.5 hours at least 5 out of 7 days, to improve: Swallowing, Cogn ition, Language Skills, and Compensatory Strategies. Receptive Language Skills. Speech Intelligibilit y Training. - Physical Therapy Patient needs Physical Therapy for a daily minimum of 1.5 hours at least 5 out of 7 days, to improve: Mobility, Strengthening, Transfers, Stretching, ROM, Endurance, Ability to manage stairs, Gait, and Balance. Safety Awareness. PHYSICAL EXAM - Gen Alert and awake Lying in bed No apparent distress Oriented to: person, time, and place - Skin No skin breakdown. Normacephalic with poor dentition. - Eyes No abnormalities - ENMT No abnormalities - Neck No abnormalities - CVS RRR - Chest Mildly decreased breath sounds bilaterally. - Resp No wheezing - Abd Soft - GI Non distended Deferred - No abnormalities - Ext Mild bilateral lower extremity edema. - MSK 4/5 weakness in both lower extremities. - Neuro 4/5 strength right upper and lower extremities. - Psych Mild depression. ASSESSMENT: On 08/18/2021 Pt. presented to [facility] with sudden onset of left-sideweakness with mode rate expressive aphasia and receptive aphasia.On 08/18/2021 Pt. presented to [facility] wi th sudden onset of left-side weakness.Pt. is a 89 yo black male.On 08/18/2021 he was admitted to [facility] with diagnosis CVA.His impairment category is Stroke 01 - Left Body (Right Brain) (01.1).Pre-morbidly, Pt. was independent/mod-I in Locomotion, Self-Care, and Communication; and he gordon d good Safety Awareness, Social Cognition, Balance, Transfers Control, and Endurance.Currently, he gordon s deficits of Locomotion, Safety Awareness, Social Cognition, Balance, Transfers Control, Sphincter C ontrol, Communication, Endurance, and Self-Care.Pt. is now referred to [facility] for acute in-patient rehabilitation in order to maximize patient's functional independence in act ivities of daily living, strength, ROM, and mobility.- Rehab Goal Patient has realistic goal of being discharged at assistance level 4-Peace to reside at Home with Fam phillip/Relatives. MDM/PLAN: - Physical Therapy Gait dysfunction - to improve, our physical therapists will perform initial evaluation of pt's statu s upon admission and devise an individualized program for Gait Training, and Wheel Chair mobility Inability to transfer - to improve, our physical therapists will perform initial evaluation of pt's status upon admission and devise an individualized program for Bed mobility Need for home safety evaluation - to improve, our physical therapists will perform initial evaluatio n of pt's status upon admission and devise an individualized program for Home Evaluation Need in caregiver upon discharge - to improve, our physical therapists will perform initial evaluati on of pt's status upon admission and devise an individualized program for Caregiver Training New precaution - to improve, our physical therapists will perform initial evaluation of pt's status upon admission and devise an individualized program for Patient precaution education Edema - to improve, our physical therapists will perform initial evaluation of pt's status upon admi ssion and devise an individualized program for Elevation Training, and Lymphedema Therapy Poor balance - to improve, our physical therapists will perform initial evaluation of pt's status up on admission and devise an individualized program for Balance Training Poor endurance - to improve, our physical therapists will perform initial evaluation of pt's status upon admission and devise an individualized program for Endurance Training Weakness - to improve, our physical therapists will perform initial evaluation of pt's status upon a dmission and devise an individualized program for Aquatic Therapy, Neuromuscular Reeducation, and Str engthening Achieving independence - to improve, our physical therapists will perform initial evaluation of pt's status upon admission and devise an individualized program for Community Reintegration Activities - Occupational Therapy ADL deficits - to improve, our occupation therapists will perform initial evaluation of pt's status upon admission and devise an individualized program for Bathing, Bed mobility, Community Reintegratio n, Cooking, Dressing, Eating, Fine Motor Skills, Grooming, Homemaking, Kitchen Mobility, Laundry, Pat ient Education, Safety Awareness, Splinting - Positioning, Transfers(Toilet, Tub, Shower), and Wheel Chair Management Cognitive deficits - to improve, our occupation therapists will perform initial evaluation of pt's s tatus upon admission and devise an individualized program for Cognition - orientation Need for acute care physical therapist - to improve, our occupation therapists will perform initial evaluation of pt's status upon admission and devise an individualized program for Caregiver Training Weakness - to improve, our occupation therapists will perform initial evaluation of pt's status upon admission and devise an individualized program for Aquatic Therapy, Balance, Endurance, UE ROM, and UE strengthening - Other See attached MAR (Medication Administration Record) - Diet Type Continue Regular - Diet - Liquid Texture Continue Honey-Thickened - Tube Feed Continue N/A - Incontinence Bowel Incontinence - Bladder care per protocol - DVT Risk due to restricted mobility and age - Skin Breakdown Risk due to restricted mobility and age - Cardiac Precaution Monitor blood pressure, heart rate, lower extremity edema, notify MD for shortness of breath or ches t pain Monitor patient for excessive elevation of heart rate and blood pressure during therapy Nursing and Therapy to monitor pt before and after therapy sessions for signs of Chest pain - Weight Bearing Precaution WBAT left LE - Fall Precaution Bed alarm TABS alarm Wheel chair alarm - Skin care per protocol - Diet - Solid Texture Continue Pureed Continue Regular - Shower allowing shower for Dementia, TBI, Stroke, or others FUNCTIONAL STATUS: UPDATED AT WEEKLY TEAM CONFERENCE - Bladder Same accident frequency: 7-Ind - No accidents in the past 7 days - Bowel Same accident frequency: 7-Ind - No accidents in the past 7 days - Walking Same score based on distance walked: 0(N/A) - Wheelchair Same score based on distance traveled: 0(N/A) FUNCTIONAL STATUS: - Self-Care A. Eating maxA B. Grooming maxA C. Bathing maxA D. Dressing - Upper modA E. Dressing - Lower maxA F. Toileting modA - Sphincter Control G. Bladder control sup H. Bowel control sup - Transfers Control I. Bed/Chair/Wheelchair maxA J. Toilet maxA K. Tub/Shower maxA - Locomotion L. Walk/Wheelchair (B) maxA M. Stairs ADNO - Communication N. Comprehension (B) maxA O. Expression (B) maxA - Social Cognition P. Social Interaction modA Q. Problem Solving maxA R. Memory maxA - Endurance Poor - Balance Poor - Safety Awareness Poor QI SCORES: - Self-Care A. Eating 03-Partial/moderate assistance B. Oral hygiene 03-Partial/moderate assistance C. Toileting hygiene 03-Partial/moderate assistance E. Shower/bathe self 03-Partial/moderate assistance F. Upper body dressing 03-Partial/moderate assistance G. Lower body dressing 02-Substantial/maximal assistance H. Putting on/taking off footwear 02-Substantial/maximal assistance - Mobility A. Roll left and right 02-Substantial/maximal assistance B. Sit to lying 02-Substantial/maximal assistance C. Lying to sitting on side of bed 02-Substantial/maximal assistance D. Sit to stand 88-Not attempted due to medical condition or safety concerns E. Chair/[id number] transfer 88-Not attempted due to medical condition or safety concerns F. Toilet transfer 88-Not attempted due to medical condition or safety concerns G. Car transfer 88-Not attempted due to medical condition or safety concerns I. Walk 10 feet 88-Not attempted due to medical condition or safety concerns J. Walk 50 feet with two turns 88-Not attempted due to medical condition or safety concerns K. Walk 150 feet 88-Not attempted due to medical condition or safety concerns L. Walking 10 feet on uneven surfaces 88-Not attempted due to medical condition or safety concerns M. 1 step (curb) 88-Not attempted due to medical condition or safety concerns N. 4 steps 88-Not attempted due to medical condition or safety concerns O. 12 steps 88-Not attempted due to medical condition or safety concerns P. Picking up object 88-Not attempted due to medical condition or safety concerns R. Wheel 50 feet with two turns S. Wheel 150 feet - Bladder and Bowel Bladder continence 3-Incontinent daily Bowel continence 2-Frequently incontinent - Endurance Poor - Balance Poor - Safety Awareness Poor CURRENT FUNC. DEFICITS: Self-Care, Mobility, Endurance, Balance, and Safety Awareness SIGNATURE PANEL: (CDT)
[2021-09-04] MEDS: ATORVASTATIN 40 MG TAB PO SCH (20:39)
[2021-09-05] MEDS: carvediloL 6.25 MG TAB PO SCH ×2 (05:34→17:18)
[2021-09-05] MEDS: LEVOTHYROXINE SOD 0.075 MG TAB PO SCH (05:34)
[2021-09-05] MEDS: APIXABAN 2.5 MG TABLET PO SCH ×2 (07:12→19:54)
[2021-09-05] MEDS: FUROSEMIDE 20 MG TABLET PO SCH (07:26)
[2021-09-05] MEDS: ASPIRIN 81 MG CHEWABLE TABLET PO SCH (07:26)
[2021-09-05] MEDS: OXcarbazepine 150 MG TAB PO SCH ×2 (07:26→19:54)
[2021-09-05] MEDS: ATORVASTATIN 40 MG TAB PO SCH (19:54)
[2021-09-06] MEDS: carvediloL 6.25 MG TAB PO SCH ×2 (05:21→17:27)
[2021-09-06] MEDS: LEVOTHYROXINE SOD 0.075 MG TAB PO SCH (06:50)
[2021-09-06] MEDS: ASPIRIN 81 MG CHEWABLE TABLET PO SCH (07:40)
[2021-09-06] MEDS: FUROSEMIDE 20 MG TABLET PO SCH (07:40)
[2021-09-06] MEDS: OXcarbazepine 150 MG TAB PO SCH ×2 (07:41→19:00)
[2021-09-06] MEDS: APIXABAN 2.5 MG TABLET PO SCH ×2 (07:41→19:00)
[2021-09-06] MEDS: ATORVASTATIN 40 MG TAB PO SCH (19:00)
[2021-09-07] MEDS: carvediloL 6.25 MG TAB PO SCH ×2 (05:29→16:50)
[2021-09-07] MEDS: LEVOTHYROXINE SOD 0.075 MG TAB PO SCH (06:18)
[2021-09-07] MEDS: OXcarbazepine 150 MG TAB PO SCH ×2 (08:06→19:25)
[2021-09-07] MEDS: ASPIRIN 81 MG CHEWABLE TABLET PO SCH (08:06)
[2021-09-07] MEDS: APIXABAN 2.5 MG TABLET PO SCH ×2 (08:06→19:25)
[2021-09-07] MEDS: FUROSEMIDE 20 MG TABLET PO SCH (08:06)
--- NOTE | 2021-09-07 17:47 | R.PN ---
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 Pt denied any Shortness of Breath. WBC 4.4, Hgb 12.7. Glucose 101, prealbumin 15.5, [place] 1.39. His MBSS showed severe premature spillage to the valleculae and moderate into the pyrifom sinuses. He has a strong cough. Now on small bites and sips with chin tuck. Very elevated BP, Coreg to 6.25 mg bid. Ambulated 300' with minimum assistance using rolling walker. VITAL SIGNS Temperature: 98.0 F SBP/DBP: 120/67 Pulse: 61 Resp: 15 MEDICATION ALLERGIES: No Known Drug Allergies (NKDA) ENVIRONMENTAL ALLERGIES: - Substance Allergies None Known - Other Allergies None Known NURSING: - Shower allowing shower - Bladder care per protocol - Skin care per protocol PRECAUTIONS: - Fall Precaution Bed alarm TABS alarm Wheel chair alarm - Incontinence Bowel Incontinence - DVT Risk due to restricted mobility and age - Skin Breakdown Risk due to restricted mobility and age - Cardiac Precaution Monitor blood pressure, heart rate, lower extremity edema, notify MD for shortness of breath or chest pain Monitor patient for excessive elevation of heart rate and blood pressure during therapy Nursing and Therapy to monitor pt before and after therapy sessions for signs of Chest pain - Aspiration Precaution No straws Seated at 90 degrees while eating and 30 minutes after meals - Weight Bearing Precaution WBAT left LE ACTIVITIES OOB only with supervision THERAPIES: - Dietary and Nutrition Adequate Nutrition. Nutritional Education. Nutritional Supplements. - Occupational Therapy Cognitive Retraining. Patient needs Occupational Therapy for a daily minimum of 1.5 hours at least 5 out of 7 days, to improve Activities of Daily Living, including: Eating, Grooming, Bathing, Dressing, Toileting, Toilet Transfers, Community Reintegration, Higher functional activities, Adaptive Equipme nt, Splinting, Household Tasks, and Other activities as determined. Visual Perceptual Training. - Speech Therapy Cognitive Training. Dysphagia Therapy. Expressive Language Skills. Memory Strategies. Patient needs S peech Therapy for a daily minimum of 1.5 hours at least 5 out of 7 days, to improve: Swallowing, Cogn ition, Language Skills, and Compensatory Strategies. Receptive Language Skills. Speech Intelligibilit y Training. - Physical Therapy Patient needs Physical Therapy for a daily minimum of 1.5 hours at least 5 out of 7 days, to improve: Mobility, Strengthening, Transfers, Stretching, ROM, Endurance, Ability to manage stairs, Gait, and Balance. Safety Awareness. PHYSICAL EXAM - Gen Alert and awake Lying in bed No apparent distress Oriented to: person, time, and place - Skin No skin breakdown. Normacephalic with poor dentition. - Eyes No abnormalities - ENMT No abnormalities - Neck No abnormalities - CVS RRR - Chest Mildly decreased breath sounds bilaterally. - Resp No wheezing - Abd Soft - GI Non distended Deferred - No abnormalities - Ext Mild bilateral lower extremity edema. - MSK 4/5 weakness in both lower extremities. - Neuro 4/5 strength right upper and lower extremities. - Psych Mild depression. ASSESSMENT: On 08/18/2021 Pt. presented to [facility] with sudden onset of left-sideweakness with mode rate expressive aphasia and receptive aphasia.On 08/18/2021 Pt. presented to [facility] wi th sudden onset of left-side weakness.Pt. is a 89 yo black male.On 08/18/2021 he was admitted to [facility] with diagnosis CVA.His impairment category is Stroke 01 - Left Body (Right Brain) (01.1).Pre-morbidly, Pt. was independent/mod-I in Locomotion, Self-Care, and Communication; and he gordon d good Safety Awareness, Social Cognition, Balance, Transfers Control, and Endurance.Currently, he gordon s deficits of Locomotion, Safety Awareness, Social Cognition, Balance, Transfers Control, Sphincter C ontrol, Communication, Endurance, and Self-Care.Pt. is now referred to [facility] for acute in-patient rehabilitation in order to maximize patient's functional independence in act ivities of daily living, strength, ROM, and mobility.- Rehab Goal Patient has realistic goal of being discharged at assistance level 4-Peace to reside at Home with Fam phillip/Relatives. MDM/PLAN: - Physical Therapy Gait dysfunction - to improve, our physical therapists will perform initial evaluation of pt's statu s upon admission and devise an individualized program for Gait Training, and Wheel Chair mobility Inability to transfer - to improve, our physical therapists will perform initial evaluation of pt's status upon admission and devise an individualized program for Bed mobility Need for home safety evaluation - to improve, our physical therapists will perform initial evaluatio n of pt's status upon admission and devise an individualized program for Home Evaluation Need in caregiver upon discharge - to improve, our physical therapists will perform initial evaluati on of pt's status upon admission and devise an individualized program for Caregiver Training New precaution - to improve, our physical therapists will perform initial evaluation of pt's status upon admission and devise an individualized program for Patient precaution education Edema - to improve, our physical therapists will perform initial evaluation of pt's status upon admi ssion and devise an individualized program for Elevation Training, and Lymphedema Therapy Poor balance - to improve, our physical therapists will perform initial evaluation of pt's status up on admission and devise an individualized program for Balance Training Poor endurance - to improve, our physical therapists will perform initial evaluation of pt's status upon admission and devise an individualized program for Endurance Training Weakness - to improve, our physical therapists will perform initial evaluation of pt's status upon a dmission and devise an individualized program for Aquatic Therapy, Neuromuscular Reeducation, and Str engthening Achieving independence - to improve, our physical therapists will perform initial evaluation of pt's status upon admission and devise an individualized program for Community Reintegration Activities - Occupational Therapy ADL deficits - to improve, our occupation therapists will perform initial evaluation of pt's status upon admission and devise an individualized program for Bathing, Bed mobility, Community Reintegratio n, Cooking, Dressing, Eating, Fine Motor Skills, Grooming, Homemaking, Kitchen Mobility, Laundry, Pat ient Education, Safety Awareness, Splinting - Positioning, Transfers(Toilet, Tub, Shower), and Wheel Chair Management Cognitive deficits - to improve, our occupation therapists will perform initial evaluation of pt's s tatus upon admission and devise an individualized program for Cognition - orientation Need for career specialist - to improve, our occupation therapists will perform initial evaluation of pt's status upon admission and devise an individualized program for Caregiver Training Weakness - to improve, our occupation therapists will perform initial evaluation of pt's status upon admission and devise an individualized program for Aquatic Therapy, Balance, Endurance, UE ROM, and UE strengthening - Other See attached MAR (Medication Administration Record) - Diet Type Continue Regular - Diet - Liquid Texture Continue Honey-Thickened - Tube Feed Continue N/A - Incontinence Bowel Incontinence - Bladder care per protocol - DVT Risk due to restricted mobility and age - Skin Breakdown Risk due to restricted mobility and age - Cardiac Precaution Monitor blood pressure, heart rate, lower extremity edema, notify MD for shortness of breath or ches t pain Monitor patient for excessive elevation of heart rate and blood pressure during therapy Nursing and Therapy to monitor pt before and after therapy sessions for signs of Chest pain - Weight Bearing Precaution WBAT left LE - Fall Precaution Bed alarm TABS alarm Wheel chair alarm - Skin care per protocol - Diet - Solid Texture Continue Pureed Continue Regular - Shower allowing shower for Dementia, TBI, Stroke, or others FUNCTIONAL STATUS: UPDATED AT WEEKLY TEAM CONFERENCE - Bladder Same accident frequency: 7-Ind - No accidents in the past 7 days - Bowel Same accident frequency: 7-Ind - No accidents in the past 7 days - Walking Same score based on distance walked: 0(N/A) - Wheelchair Same score based on distance traveled: 0(N/A) FUNCTIONAL STATUS: - Self-Care A. Eating maxA B. Grooming maxA C. Bathing maxA D. Dressing - Upper modA E. Dressing - Lower maxA F. Toileting modA - Sphincter Control G. Bladder control sup H. Bowel control sup - Transfers Control I. Bed/Chair/Wheelchair maxA J. Toilet maxA K. Tub/Shower maxA - Locomotion L. Walk/Wheelchair (B) maxA M. Stairs ADNO - Communication N. Comprehension (B) maxA O. Expression (B) maxA - Social Cognition P. Social Interaction modA Q. Problem Solving maxA R. Memory maxA - Endurance Poor - Balance Poor - Safety Awareness Poor QI SCORES: - Self-Care A. Eating 03-Partial/moderate assistance B. Oral hygiene 03-Partial/moderate assistance C. Toileting hygiene 03-Partial/moderate assistance E. Shower/bathe self 03-Partial/moderate assistance F. Upper body dressing 03-Partial/moderate assistance G. Lower body dressing 02-Substantial/maximal assistance H. Putting on/taking off footwear 02-Substantial/maximal assistance - Mobility A. Roll left and right 02-Substantial/maximal assistance B. Sit to lying 02-Substantial/maximal assistance C. Lying to sitting on side of bed 02-Substantial/maximal assistance D. Sit to stand 88-Not attempted due to medical condition or safety concerns E. Chair/[id number] transfer 88-Not attempted due to medical condition or safety concerns F. Toilet transfer 88-Not attempted due to medical condition or safety concerns G. Car transfer 88-Not attempted due to medical condition or safety concerns I. Walk 10 feet 88-Not attempted due to medical condition or safety concerns J. Walk 50 feet with two turns 88-Not attempted due to medical condition or safety concerns K. Walk 150 feet 88-Not attempted due to medical condition or safety concerns L. Walking 10 feet on uneven surfaces 88-Not attempted due to medical condition or safety concerns M. 1 step (curb) 88-Not attempted due to medical condition or safety concerns N. 4 steps 88-Not attempted due to medical condition or safety concerns O. 12 steps 88-Not attempted due to medical condition or safety concerns P. Picking up object 88-Not attempted due to medical condition or safety concerns R. Wheel 50 feet with two turns S. Wheel 150 feet - Bladder and Bowel Bladder continence 3-Incontinent daily Bowel continence 2-Frequently incontinent - Endurance Poor - Balance Poor - Safety Awareness Poor CURRENT FUNC. DEFICITS: Self-Care, Mobility, Endurance, Balance, and Safety Awareness SIGNATURE PANEL: (CDT)
[2021-09-07] MEDS: ATORVASTATIN 40 MG TAB PO SCH (19:25)
[2021-09-08] MEDS: carvediloL 6.25 MG TAB PO SCH ×2 (04:58→17:08)
[2021-09-08] MEDS: LEVOTHYROXINE SOD 0.075 MG TAB PO SCH (04:58)
[2021-09-08] MEDS: APIXABAN 2.5 MG TABLET PO SCH ×2 (07:35→19:23)
[2021-09-08] MEDS: OXcarbazepine 150 MG TAB PO SCH ×2 (07:35→19:23)
[2021-09-08] MEDS: FUROSEMIDE 20 MG TABLET PO SCH (07:35)
[2021-09-08] MEDS: ASPIRIN 81 MG CHEWABLE TABLET PO SCH (07:35)
--- NOTE | 2021-09-08 11:20 | RAD REPORT ---
EXAM DESCRIPTION: RAD - Barium Swallow Modified - 09/08/2021 11:15 am CLINICAL HISTORY: To evaluate on swallowing. COMPARISON: Barium Swallow Modified dated 08/24/2021 TECHNIQUE: The patient was given liquid, semi-solid and solid forms of barium. Lateral view fluorosc opic imaging was performed in conjunction with speech pathology service. FINDINGS: LARYNGEAL PENETRATION NOT CLEARED WITH NECTAR PHARYNGEAL RESIDUE: VALLECULAR: TRACE- MILD, HONEY, NECTAR, PUREE PYRIFORM- TRACE MILD, NECTAR, PUREE Total fluoroscopy time: 5 minutes 3 seconds Dose: 29.4 mGy
--- NOTE | 2021-09-08 17:52 | R.PN ---
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 Pt denied any Shortness of Breath. WBC 4.4, Hgb 12.7. Glucose 101, prealbumin 15.5, Database Support 1.39. Repeat MBSS resulted in recommendation for mechanical soft diet with ground meats and nectar thick li quids. Very elevated BP, Coreg to 6.25 mg bid. Ambulated 600' with minimum assistance using rolling walker. VITAL SIGNS Temperature: 98.2 F SBP/DBP: 125/65 Pulse: 64 Resp: 16 MEDICATION ALLERGIES: No Known Drug Allergies (NKDA) ENVIRONMENTAL ALLERGIES: - Substance Allergies None Known - Other Allergies None Known NURSING: - Shower allowing shower - Bladder care per protocol - Skin care per protocol PRECAUTIONS: - Fall Precaution Bed alarm TABS alarm Wheel chair alarm - Incontinence Bowel Incontinence - DVT Risk due to restricted mobility and age - Skin Breakdown Risk due to restricted mobility and age - Cardiac Precaution Monitor blood pressure, heart rate, lower extremity edema, notify MD for shortness of breath or chest pain Monitor patient for excessive elevation of heart rate and blood pressure during therapy Nursing and Therapy to monitor pt before and after therapy sessions for signs of Chest pain - Aspiration Precaution No straws Seated at 90 degrees while eating and 30 minutes after meals - Weight Bearing Precaution WBAT left LE ACTIVITIES OOB only with supervision THERAPIES: - Dietary and Nutrition Adequate Nutrition. Nutritional Education. Nutritional Supplements. - Occupational Therapy Cognitive Retraining. Patient needs Occupational Therapy for a daily minimum of 1.5 hours at least 5 out of 7 days, to improve Activities of Daily Living, including: Eating, Grooming, Bathing, Dressing, Toileting, Toilet Transfers, Community Reintegration, Higher functional activities, Adaptive Equipme nt, Splinting, Household Tasks, and Other activities as determined. Visual Perceptual Training. - Speech Therapy Cognitive Training. Dysphagia Therapy. Expressive Language Skills. Memory Strategies. Patient needs S peech Therapy for a daily minimum of 1.5 hours at least 5 out of 7 days, to improve: Swallowing, Cogn ition, Language Skills, and Compensatory Strategies. Receptive Language Skills. Speech Intelligibilit y Training. - Physical Therapy Patient needs Physical Therapy for a daily minimum of 1.5 hours at least 5 out of 7 days, to improve: Mobility, Strengthening, Transfers, Stretching, ROM, Endurance, Ability to manage stairs, Gait, and Balance. Safety Awareness. PHYSICAL EXAM - Gen Alert and awake Lying in bed No apparent distress Oriented to: person, time, and place - Skin No skin breakdown. Normacephalic with poor dentition. - Eyes No abnormalities - ENMT No abnormalities - Neck No abnormalities - CVS RRR - Chest Mildly decreased breath sounds bilaterally. - Resp No wheezing - Abd Soft - GI Non distended Deferred - No abnormalities - Ext Mild bilateral lower extremity edema. - MSK 4/5 weakness in both lower extremities. - Neuro 4/5 strength right upper and lower extremities. - Psych Mild depression. ASSESSMENT: On 08/18/2021 Pt. presented to [facility] with sudden onset of left-sideweakness with mode rate expressive aphasia and receptive aphasia.On 08/18/2021 Pt. presented to [facility] wi th sudden onset of left-side weakness.Pt. is a 89 yo black male.On 08/18/2021 he was admitted to [facility] with diagnosis CVA.His impairment category is Stroke 01 - Left Body (Right Brain) (01.1).Pre-morbidly, Pt. was independent/mod-I in Locomotion, Self-Care, and Communication; and he gordon d good Safety Awareness, Social Cognition, Balance, Transfers Control, and Endurance.Currently, he gordon s deficits of Locomotion, Safety Awareness, Social Cognition, Balance, Transfers Control, Sphincter C ontrol, Communication, Endurance, and Self-Care.Pt. is now referred to [facility] for acute in-patient rehabilitation in order to maximize patient's functional independence in act ivities of daily living, strength, ROM, and mobility.- Rehab Goal Patient has realistic goal of being discharged at assistance level 4-Peace to reside at Home with Fam phillip/Relatives. MDM/PLAN: - Physical Therapy Gait dysfunction - to improve, our physical therapists will perform initial evaluation of pt's statu s upon admission and devise an individualized program for Gait Training, and Wheel Chair mobility Inability to transfer - to improve, our physical therapists will perform initial evaluation of pt's status upon admission and devise an individualized program for Bed mobility Need for home safety evaluation - to improve, our physical therapists will perform initial evaluatio n of pt's status upon admission and devise an individualized program for Home Evaluation Need in caregiver upon discharge - to improve, our physical therapists will perform initial evaluati on of pt's status upon admission and devise an individualized program for Caregiver Training New precaution - to improve, our physical therapists will perform initial evaluation of pt's status upon admission and devise an individualized program for Patient precaution education Edema - to improve, our physical therapists will perform initial evaluation of pt's status upon admi ssion and devise an individualized program for Elevation Training, and Lymphedema Therapy Poor balance - to improve, our physical therapists will perform initial evaluation of pt's status up on admission and devise an individualized program for Balance Training Poor endurance - to improve, our physical therapists will perform initial evaluation of pt's status upon admission and devise an individualized program for Endurance Training Weakness - to improve, our physical therapists will perform initial evaluation of pt's status upon a dmission and devise an individualized program for Aquatic Therapy, Neuromuscular Reeducation, and Str engthening Achieving independence - to improve, our physical therapists will perform initial evaluation of pt's status upon admission and devise an individualized program for Community Reintegration Activities - Occupational Therapy ADL deficits - to improve, our occupation therapists will perform initial evaluation of pt's status upon admission and devise an individualized program for Bathing, Bed mobility, Community Reintegratio n, Cooking, Dressing, Eating, Fine Motor Skills, Grooming, Homemaking, Kitchen Mobility, Laundry, Pat ient Education, Safety Awareness, Splinting - Positioning, Transfers(Toilet, Tub, Shower), and Wheel Chair Management Cognitive deficits - to improve, our occupation therapists will perform initial evaluation of pt's s tatus upon admission and devise an individualized program for Cognition - orientation Need for critical care technician - to improve, our occupation therapists will perform initial evaluation of pt's status upon admission and devise an individualized program for Caregiver Training Weakness - to improve, our occupation therapists will perform initial evaluation of pt's status upon admission and devise an individualized program for Aquatic Therapy, Balance, Endurance, UE ROM, and UE strengthening - Other See attached MAR (Medication Administration Record) - Diet Type Continue Regular - Diet - Liquid Texture Continue Honey-Thickened - Tube Feed Continue N/A - Incontinence Bowel Incontinence - Bladder care per protocol - DVT Risk due to restricted mobility and age - Skin Breakdown Risk due to restricted mobility and age - Cardiac Precaution Monitor blood pressure, heart rate, lower extremity edema, notify MD for shortness of breath or ches t pain Monitor patient for excessive elevation of heart rate and blood pressure during therapy Nursing and Therapy to monitor pt before and after therapy sessions for signs of Chest pain - Weight Bearing Precaution WBAT left LE - Fall Precaution Bed alarm TABS alarm Wheel chair alarm - Skin care per protocol - Diet - Solid Texture Continue Pureed Continue Regular - Shower allowing shower for Dementia, TBI, Stroke, or others FUNCTIONAL STATUS: UPDATED AT WEEKLY TEAM CONFERENCE - Bladder Same accident frequency: 7-Ind - No accidents in the past 7 days - Bowel Same accident frequency: 7-Ind - No accidents in the past 7 days - Walking Same score based on distance walked: 0(N/A) - Wheelchair Same score based on distance traveled: 0(N/A) FUNCTIONAL STATUS: - Self-Care A. Eating maxA B. Grooming maxA C. Bathing maxA D. Dressing - Upper modA E. Dressing - Lower maxA F. Toileting modA - Sphincter Control G. Bladder control sup H. Bowel control sup - Transfers Control I. Bed/Chair/Wheelchair maxA J. Toilet maxA K. Tub/Shower maxA - Locomotion L. Walk/Wheelchair (B) maxA M. Stairs ADNO - Communication N. Comprehension (B) maxA O. Expression (B) maxA - Social Cognition P. Social Interaction modA Q. Problem Solving maxA R. Memory maxA - Endurance Poor - Balance Poor - Safety Awareness Poor QI SCORES: - Self-Care A. Eating 03-Partial/moderate assistance B. Oral hygiene 03-Partial/moderate assistance C. Toileting hygiene 03-Partial/moderate assistance E. Shower/bathe self 03-Partial/moderate assistance F. Upper body dressing 03-Partial/moderate assistance G. Lower body dressing 02-Substantial/maximal assistance H. Putting on/taking off footwear 02-Substantial/maximal assistance - Mobility A. Roll left and right 02-Substantial/maximal assistance B. Sit to lying 02-Substantial/maximal assistance C. Lying to sitting on side of bed 02-Substantial/maximal assistance D. Sit to stand 88-Not attempted due to medical condition or safety concerns E. Chair/[id number] transfer 88-Not attempted due to medical condition or safety concerns F. Toilet transfer 88-Not attempted due to medical condition or safety concerns G. Car transfer 88-Not attempted due to medical condition or safety concerns I. Walk 10 feet 88-Not attempted due to medical condition or safety concerns J. Walk 50 feet with two turns 88-Not attempted due to medical condition or safety concerns K. Walk 150 feet 88-Not attempted due to medical condition or safety concerns L. Walking 10 feet on uneven surfaces 88-Not attempted due to medical condition or safety concerns M. 1 step (curb) 88-Not attempted due to medical condition or safety concerns N. 4 steps 88-Not attempted due to medical condition or safety concerns O. 12 steps 88-Not attempted due to medical condition or safety concerns P. Picking up object 88-Not attempted due to medical condition or safety concerns R. Wheel 50 feet with two turns S. Wheel 150 feet - Bladder and Bowel Bladder continence 3-Incontinent daily Bowel continence 2-Frequently incontinent - Endurance Poor - Balance Poor - Safety Awareness Poor CURRENT FUNC. DEFICITS: Self-Care, Mobility, Endurance, Balance, and Safety Awareness SIGNATURE PANEL: (CDT)
[2021-09-08] MEDS: ATORVASTATIN 40 MG TAB PO SCH (19:23)
[2021-09-08 20:19] VITALS: TEMP 97.2
[2021-09-09] MEDS: carvediloL 6.25 MG TAB PO SCH (05:13)
[2021-09-09] MEDS: LEVOTHYROXINE SOD 0.075 MG TAB PO SCH (05:13)
[2021-09-09] MEDS: APIXABAN 2.5 MG TABLET PO SCH (07:22)
[2021-09-09] MEDS: FUROSEMIDE 20 MG TABLET PO SCH (07:55)
[2021-09-09] MEDS: OXcarbazepine 150 MG TAB PO SCH (07:55)
[2021-09-09] MEDS: ASPIRIN 81 MG CHEWABLE TABLET PO SCH (07:55)
[2021-09-09 08:18] VITALS: BP 139/82
--- NOTE | 2021-09-18 18:01 | R.DS ---
DISCHARGE SUMMARY FACILITY [facility] MR# [id number] NAME BETO MONTANA ADDRESS [facility] [address] [address] PHONE DATE OF 1930 AGE 89 SSN# [id number] GENDER Male DEXTERITY Unknown dexterity MARITAL STATUS RACE Black ENCOUNTER PHYSICIAN Dr. Bimal Carpio M.D. 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 DISCHARGE COMORBIDITIES: - N/A He was given Keppra 250 mg twice daily. An EEG is pending. He has a UTI and is on antibiotics. DATE OF ADMISSION 08/20/2021 18:23 (CDT) MEDICATION ALLERGIES: No Known Drug Allergies (NKDA) ENVIRONMENTAL ALLERGIES: - Substance Allergies None Known - Other Allergies None Known DISCHARGE MEDICATIONS: Other- ContinueSee attached MAR (Medication Administration Record). NURSING: - Shower allowing shower - Bladder care per protocol - Skin care per protocol PRECAUTIONS: - Fall Precaution Bed alarm TABS alarm Wheel chair alarm - Incontinence Bowel Incontinence - DVT Risk due to restricted mobility and age - Skin Breakdown Risk due to restricted mobility and age - Cardiac Precaution Monitor blood pressure, heart rate, lower extremity edema, notify MD for shortness of breath or chest pain Monitor patient for excessive elevation of heart rate and blood pressure during therapy Nursing and Therapy to monitor pt before and after therapy sessions for signs of Chest pain - Aspiration Precaution No straws Seated at 90 degrees while eating and 30 minutes after meals - Weight Bearing Precaution WBAT left LE ACTIVITIES OOB only with supervision THERAPIES: - Dietary and Nutrition Adequate Nutrition Nutritional Education Nutritional Supplements - Occupational Therapy Cognitive Retraining Patient needs Occupational Therapy for a daily minimum of 1.5 hours at least 5 out of 7 days, to impr ove Activities of Daily Living, including: Eating, Grooming, Bathing, Dressing, Toileting, Toilet Tra nsfers, Community Reintegration, Higher functional activities, Adaptive Equipment, Splinting, Househo ld Tasks, and Other activities as determined Visual Perceptual Training - Speech Therapy Cognitive Training Dysphagia Therapy Expressive Language Skills Memory Strategies Patient needs Speech Therapy for a daily minimum of 1.5 hours at least 5 out of 7 days, to improve: S wallowing, Cognition, Language Skills, and Compensatory Strategies Receptive Language Skills Speech Intelligibility Training - Physical Therapy Patient needs Physical Therapy for a daily minimum of 1.5 hours at least 5 out of 7 days, to improve: Mobility, Strengthening, Transfers, Stretching, ROM, Endurance, Ability to manage stairs, Gait, and Balance Safety Awareness HISTORY OF PRESENT ILLNESS: On 08/18/2021 Pt. presented to [facility] with sudden onset of left-sideweakness with mode rate expressive aphasia and receptive aphasia.On 08/18/2021 Pt. presented to [facility] wi th sudden onset of left-side weakness.Pt. is a 89 yo black male.On 08/18/2021 he was admitted to [facility] with diagnosis CVA.His impairment category is Stroke 01 - Left Body (Right Brain) (01.1).Pre-morbidly, Pt. was independent/mod-I in Locomotion, Self-Care, and Communication; and he gordon d good Safety Awareness, Social Cognition, Balance, Transfers Control, and Endurance.Currently, he gordon s deficits of Locomotion, Safety Awareness, Social Cognition, Balance, Transfers Control, Sphincter C ontrol, Communication, Endurance, and Self-Care.Pt. is now referred to [facility] for acute in-patient rehabilitation in order to maximize patient's functional independence in act ivities of daily living, strength, ROM, and mobility.- Rehab Goal Patient has realistic goal of being discharged at assistance level 4-Peace to reside at Home with Fam phillip/Relatives. ASPIRATION PRECAUTION: On 08/20/2021 the following precautions were added for the patient: Aspiration Precaution - No straws , and Aspiration Precaution - Seated at 90 degrees while eating and 30 minutes after meals. On 08/20/2021 the following precautions were removed for the patient: Aspiration Precaution - No stra ws, and Aspiration Precaution - Seated at 90 degrees while eating and 30 minutes after meals. The following precautions were added for the patient: Cardiac Precaution - Monitor blood pressure, he art rate, lower extremity edema, notify MD for shortness of breath or chest pain, Cardiac Precaution - Monitor patient for excessive elevation of heart rate and blood pressure during therapy, and Cardia c Precaution - Nursing and Therapy to monitor pt before and after therapy sessions for signs of Chest pain. On 08/22/2021 the following precautions were added for the patient: Cardiac Precaution - Monitor blo od pressure, heart rate, lower extremity edema, notify MD for shortness of breath or chest pain, Card iac Precaution - Monitor patient for excessive elevation of heart rate and blood pressure during the rapy, and Cardiac Precaution - Nursing and Therapy to monitor pt before and after therapy sessions f or signs of Chest pain. On 08/20/2021 the following precautions were removed for the patient: Cardiac Precaution - Monitor bl ood pressure, heart rate, lower extremity edema, notify MD for shortness of breath or chest pain, Car diac Precaution - Monitor patient for excessive elevation of heart rate and blood pressure during the rapy, Cardiac Precaution - Nursing and Therapy to monitor pt before and after therapy sessions for si gns of Chest pain, Cardiac Precaution - Monitor blood pressure, heart rate, lower extremity edema, n otify MD for shortness of breath or chest pain, Cardiac Precaution - Monitor patient for excessive e levation of heart rate and blood pressure during therapy, and Cardiac Precaution - Nursing and Thera py to monitor pt before and after therapy sessions for signs of Chest pain. The following precautions were added for the patient: DVT Risk - due to restricted mobility and age. On 08/22/2021 the following precautions were added for the patient: DVT Risk - due to restricted mob ility and age. The following precautions were removed for the patient: DVT Risk - due to restricted mobility and age , and DVT Risk - due to restricted mobility and age. On 08/20/2021 the following precautions were added for the patient: Fall Precaution - Bed alarm, Fall Precaution - Wheel chair alarm, and Fall Precaution - TABS alarm. On 08/22/2021 the following precautions were added for the patient: Fall Precaution - Bed alarm, Fal l Precaution - TABS alarm, and Fall Precaution - Wheel chair alarm. On 08/20/2021 the following precautions were removed for the patient: Fall Precaution - Bed alarm, Fa ll Precaution - TABS alarm, Fall Precaution - Wheel chair alarm, Fall Precaution - Bed alarm, Fall P recaution - TABS alarm, and Fall Precaution - Wheel chair alarm. The following precautions were added for the patient: Incontinence - Bowel Incontinence. On 08/22/2021 the following precautions were added for the patient: Incontinence - Bowel Incontinenc e. On 08/20/2021 the following precautions were removed for the patient: Incontinence - Bowel Incontinen ce, and Incontinence - Bowel Incontinence. The following precautions were added for the patient: Skin Breakdown Risk - due to restricted mobilit y and age. On 08/22/2021 the following precautions were added for the patient: Skin Breakdown Risk - due to res tricted mobility and age. The following precautions were removed for the patient: Skin Breakdown Risk - due to restricted mobil ity and age, and Skin Breakdown Risk - due to restricted mobility and age. On 08/20/2021 the following precautions were added for the patient: Weight Bearing Precaution - WBAT left LE. On 08/22/2021 the following precautions were added for the patient: Weight Bearing Precaution - WBAT left LE. CARDIAC PRECAUTION: DVT RISK: DIET - LIQUID TEXTURE: On 08/20/2021 Pt was changed to Honey-Thickened Diet - Liquid Texture. DIET - SOLID TEXTURE: On 08/20/2021 Pt was changed to Pureed Diet - Solid Texture. On 08/20/2021 Pt was changed from Pureed Diet - Solid Texture to Regular. On 08/22/2021 Pt was downgraded from Regular Diet - Solid Texture to Pureed. Pt was changed from Pureed Diet - Solid Texture to Regular. On 08/24/2021 Pt was downgraded from Regular Diet - Solid Texture to Pureed. On 08/25/2021 Pt was downgraded from Regular Diet - Solid Texture to Pureed. On 08/26/2021 Pt was downgraded from Regular Diet - Solid Texture to Pureed. On 08/27/2021 Pt was downgraded from Regular Diet - Solid Texture to Pureed. On 08/31/2021 Pt was downgraded from Regular Diet - Solid Texture to Pureed. On 09/01/2021 Pt was downgraded from Regular Diet - Solid Texture to Pureed. On 09/02/2021 Pt was downgraded from Regular Diet - Solid Texture to Pureed. On 09/04/2021 Pt was downgraded from Regular Diet - Solid Texture to Pureed. On 09/07/2021 Pt was downgraded from Regular Diet - Solid Texture to Pureed. On 09/08/2021 Pt was downgraded from Regular Diet - Solid Texture to Pureed. DIET TYPE: On 08/20/2021 Pt was upgraded to Regular Diet Type. FALL PRECAUTION: INCONTINENCE: SKIN BREAKDOWN RISK: TUBE FEED: On 08/20/2021 Pt was changed to N/A Tube Feed. WEIGHT BEARING PRECAUTION: DISCHARGE PHYSICAL EXAM - Gen Alert and awake Lying in bed No apparent distress Oriented to: person, time, and place - Skin No skin breakdown. Normacephalic with poor dentition. - Eyes No abnormalities - ENMT No abnormalities - Neck No abnormalities - CVS RRR - Chest Mildly decreased breath sounds bilaterally. - Resp No wheezing - Abd Soft - GI Non distended Deferred - No abnormalities - Ext Mild bilateral lower extremity edema. - MSK 4/5 weakness in both lower extremities. - Neuro 4/5 strength right upper and lower extremities. - Psych Mild depression. FUNCTIONAL STATUS: - Self-Care A. Eating 5-sup B. Grooming 5-sup C. Bathing 5-sup D. Dressing - Upper 5-sup E. Dressing - Lower 4-Peace F. Toileting 5-sup - Sphincter Control G. Bladder control 5-sup H. Bowel control 5-sup - Transfers Control I. Bed/Chair/Wheelchair 4-Peace J. Toilet 4-Peace K. Tub/Shower 4-Peace - Locomotion L. Walk/Wheelchair (B) 4-Peace M. Stairs 0-ADNO - Communication N. Comprehension (B) 5-sup O. Expression (B) 5-sup - Social Cognition P. Social Interaction 5-sup Q. Problem Solving 5-sup R. Memory 5-sup - Endurance Fair - Balance Fair - Safety Awareness Fair QI SCORES: - Self-Care A. Eating 03-Partial/moderate assistance B. Oral hygiene 03-Partial/moderate assistance C. Toileting hygiene 03-Partial/moderate assistance E. Shower/bathe self 03-Partial/moderate assistance F. Upper body dressing 03-Partial/moderate assistance G. Lower body dressing 02-Substantial/maximal assistance H. Putting on/taking off footwear 02-Substantial/maximal assistance - Mobility A. Roll left and right 02-Substantial/maximal assistance B. Sit to lying 02-Substantial/maximal assistance C. Lying to sitting on side of bed 02-Substantial/maximal assistance D. Sit to stand 88-Not attempted due to medical condition or safety concerns E. Chair/[id number] transfer 88-Not attempted due to medical condition or safety concerns F. Toilet transfer 88-Not attempted due to medical condition or safety concerns G. Car transfer 88-Not attempted due to medical condition or safety concerns I. Walk 10 feet 88-Not attempted due to medical condition or safety concerns J. Walk 50 feet with two turns 88-Not attempted due to medical condition or safety concerns K. Walk 150 feet 88-Not attempted due to medical condition or safety concerns L. Walking 10 feet on uneven surfaces 88-Not attempted due to medical condition or safety concerns M. 1 step (curb) 88-Not attempted due to medical condition or safety concerns N. 4 steps 88-Not attempted due to medical condition or safety concerns O. 12 steps 88-Not attempted due to medical condition or safety concerns P. Picking up object 88-Not attempted due to medical condition or safety concerns R. Wheel 50 feet with two turns S. Wheel 150 feet - Bladder and Bowel Bladder continence 3-Incontinent daily Bowel continence 2-Frequently incontinent - Endurance Poor - Balance Poor - Safety Awareness Poor DISCHARGE INSTRUCTIONS: - N/A Modified barium swallow study 09-08-21 showed laryngeal penetration with nectar not cleared. Recommend continue working with speech therapy with occupational and speech therapy. Aspirin 81 mg and Eliquis 2.5 mg bid. DISCHARGE PLAN, FOLLOW UP CARE PROVISIONS: - Estimated Length of Stay (days) 17. - Consensus on plan Discharge plan has been discussed with primary caregiver. Patient/Family is in agreement with the corinne n. Primary caregiver is in agreement with the plan. - Patient/Family Goals Return home independently. - Planned Living Setting Upon Discharge Home, to live with Family/Relatives. Transitional Living. SIGNATURE PANEL: (CDT)
== END 2021-09-09 13:30 | DRG 57 ==
LOC: 5TH 18:00
PROVIDERS: ADMIT Psychiatry & Neurology Neurology with Special Qualifications in Child Neurology; ATTEND Psychiatry & Neurology Neurology with Special Qualifications in Child Neurology
DX: I69.354 Hemiplegia and hemiparesis following cerebral infarction affecting left non-dominant side (principal); N39.0 Urinary tract infection, site not specified; I12.9 Hypertensive chronic kidney disease with stage 1 through stage 4 chronic kidney disease, or unspecified chronic kidney disease; N18.9 Chronic kidney disease, unspecified; I69.320 Aphasia following cerebral infarction; I25.10 Atherosclerotic heart disease of native coronary artery without angina pectoris; E03.9 Hypothyroidism, unspecified; E11.22 Type 2 diabetes mellitus with diabetic chronic kidney disease; Z20.822 Contact with and (suspected) exposure to COVID-19
CPT/HCPCS: 36415; 71045; 74230; 80048; 81003; 81015; 82040; 82947; 83735; 84100; 84134; 85025; 87086; 87088; 92507; 92523; 92526; 92611; 97110; 97112; 97116; 97124; 97161; 97165; 97530; 97542; J1650; J7042; U0003